=== PATIENT | female | born 1930 | race African-American/Black ===

== ENCOUNTER 2019-06-24 16:34 | Inpatient (IN) | payer MEDICARE, BC ==
[~2019-06-24] VITALS: Ht 160 cm; Wt 63.3 kg
[~2019-06-24 16:34] MED LIST: UNABLE TO OBTAIN
--- NOTE | 2019-06-24 16:41 | Emergency Room Report ---
History of Present Illness General Chief Complaint: Altered Level of Consciousness Source: Patient Present Illness HPI Patient Is an 88-year-old female brought in by EMS after unwitnessed fall and altered level of consciousness. Patient was noted to have adequate blood sugar greater than 100. She had been found on the floor with unknown last well time. She was noted to have some pressure sores to the right side of her body. She had some skin stuck to the floor apparently unknown date of injury. Patient had prior history of neuropathy and normally walks with a walker and is normally verbal. History is markedly limited by patient's mental status. Allergies: Coded Allergies: No Known Allergies (Unverified , 06/24/19) Patient History Past Medical History: see triage record Reviewed Nursing Documentation: PMH: Agreed; PSxH: Agreed Nursing Documentation-PMH Past Medical History: No History, Except For Review of Systems All Other Systems: limited - by poor historian Physical Exam Vital Signs Date Time Temp Pulse Resp B/P (MAP) Pulse Ox O2 Delivery O2 Flow Rate FiO2 06/24/19 16:29 85 20 150/54 (86) 92 Room Air Sp02 EP Interpretation: reviewed, normal General Appearance: lethargic - eyes open to pain, groans, Chronically Ill Head: atraumatic Eyes: bilateral eye PERRL ENT: dry mucus membranes Neck: supple, no bony tend Respiratory: lungs clear, normal breath sounds, no respiratory distress, no retraction, no wheezing Cardiovascular #1: regular rate, rhythm, no edema Gastrointestinal: non tender, soft Genitourinary: no CVA tenderness Musculoskeletal: back normal Neurologic: alert, motor weakness - generalized, other Psychiatric: normal inspection, mood/affect normal Skin: other - pressure sores to right side Medical Decision Making Diagnostic Impression: Primary Impression: Altered level of consciousness Additional Impressions: Fall Fracture of lumbar spine Rhabdomyolysis Decubitus skin ulcer KAREN (acute kidney injury) Metabolic acidosis ER Course Patient presented after a fall. Differential diagnosis include was not limited to hip fracture, intracranial hemorrhage, seizure, coagulopathy, dehydration, rhabdomyolysis among others. Because of complexity of patient's case laboratory tests and imaging studies were ordered. CT imaging of the head showed no acute process, marked atrophy. CT of abdomen and pelvis showed age indeterminate compression fractures. Patient was started on IV fluids and antibiotics. Patient will be admitted for further treatment and evaluation of altered mental status, likely contributed to by hypernatremia, dehydration and urinary tract infection. Physician for [facility] was contacted due to panel admission. Labs Test 06/24/19 16:37 06/24/19 18:00 Arterial Blood pH 7.193 (7.350-7.450) Arterial Blood Partial Pressure CO2 30.7 mmHg (35.0-45.0) Arterial Blood Partial Pressure O2 119.9 mmHg (75.0-100.0) Arterial Blood HCO3 11.5 mmol/L (22.0-26.0) Arterial Blood Oxygen Saturation 97.1 % (95-100) Arterial Blood Base Excess -15.3 (-2-2) Van Test Positive White Blood Count 19.7 K/UL (4.8-10.8) Red Blood Count 4.63 M/UL (4.20-5.40) Hemoglobin 12.2 G/DL (12.0-16.0) Hematocrit 39.5 % (37.0-47.0) Mean Corpuscular Volume 85 FL (80-99) Mean Corpuscular Hemoglobin 26.3 PG (27.0-31.0) Mean Corpuscular Hemoglobin Concent 30.9 G/DL (32.0-36.0) Red Cell Distribution Width 13.3 % (11.6-14.8) Platelet Count 265 K/UL (150-450) Mean Platelet Volume 9.1 FL (6.5-10.1) Neutrophils (%) (Auto) % (45.0-75.0) Lymphocytes (%) (Auto) % (20.0-45.0) Monocytes (%) (Auto) % (1.0-10.0) Eosinophils (%) (Auto) % (0.0-3.0) Basophils (%) (Auto) % (0.0-2.0) Prothrombin Time 12.1 SEC (9.30-11.50) Prothromb Time International Ratio 1.1 (0.9-1.1) Activated Partial Thromboplast Time 27 SEC (23-33) Urine Color Yellow Urine Appearance Clear Urine pH 5 (4.5-8.0) Urine Specific [place] 1.015 (1.005-1.035) Urine Protein 2+ (NEGATIVE) Urine Glucose (UA) Negative (NEGATIVE) Urine Ketones 1+ (NEGATIVE) Urine Blood 5+ (NEGATIVE) Urine Nitrite Negative (NEGATIVE) Urine Bilirubin Negative (NEGATIVE) Urine Urobilinogen Normal MG/DL (0.0-1.0) Urine Leukocyte Esterase Negative (NEGATIVE) Urine RBC 2-4 /HPF (0 - 2) Urine WBC 0-2 /HPF (0 - 2) Urine Squamous Epithelial Cells Occasional /LPF Urine Bacteria Few /HPF (NONE) EKG Diagnostic Results Rate: normal Rhythm: NSR ST Segments: no acute changes Last Vital Signs Date Time Temp Pulse Resp B/P (MAP) Pulse Ox O2 Delivery O2 Flow Rate FiO2 06/24/19 16:29 85 20 150/54 (86) 92 Room Air Status: unchanged Disposition: ADMITTED INPATIENT Condition: Serious Tenzin Coburn MD Jun 24, 2019 16:41
[2019-06-24 17:35] VITALS: BP 150/54
[2019-06-24 18:37] LABS: HEMATOCRIT 39.5 % (37.0-47.0); HEMOGLOBIN 12.2 G/DL (12.0-16.0); MEAN CORPUSCULAR VOLUME 85 FL (80-99); PLATELET COUNT 265 K/UL (150-450); RED BLOOD COUNT 4.63 M/UL (4.20-5.40); RED CELL DISTRIBUTION WIDTH 13.3 % (11.6-14.8); WHITE BLOOD COUNT 19.7 K/UL (4.8-10.8)
--- NOTE | 2019-06-24 18:38 | Diagnostic Imaging Report ---
INDICATION: Abdominal pain TECHNIQUE: Continuous helical transaxial imaging of the abdomen and pelvis was obtained from the lung bases to the pubic symphysis. No intravenous contrast was administered. Coronal 2-D reformats were also obtained. Automatic Exposure Control was utilized. Total Dose length Product (DLP): 240.[address] Dose Index Volume (CTDIvol): 4.7 mGy Comparison: none FINDINGS: Lungs: There is increased density at the lung bases likely atelectasis. Aorta is moderately calcified. There is a small hiatal hernia.. Liver: Grossly unremarkable. There is artifact limiting evaluation in addition to the fact that no IV or oral contrast was given for this examination. Gallbladder/biliary system: Grossly unremarkable. Spleen: Unremarkable Pancreas: In the area of the pancreatic tail there is a 1.6 cm nodular density which may be cystic. Further evaluation is recommended. Kidneys/Bladder: Vascular calcifications are quite extensive and extend to the hilum of both kidneys. Evaluation for punctate nonobstructive stones is limited in this setting but no definite stones seen. There is no hydronephrosis. Extensive breathing motion limiting evaluation.. Adrenal glands: Unremarkable Bowel: Patient's prior partial bowel resection in the right lower abdomen with anastomotic sutures noted. There is no evidence of a bowel obstruction or inflammatory changes. Appendix is not seen definitely but there are no signs of appendicitis. A few diverticula are noted within the colon. Aorta/IVC: There is a severe calcification of aorta and multiple branches of the aorta. Peritoneum: There is no free fluid. Bones: Bones are diffusely osteopenic. Multiple compression fracture deformities of several vertebra noted including lower thoracic vertebra and L1. There is narrowing of intervertebral discs and accompanying endplate osteophyte formation. Hypertrophied facet joints also demonstrated. Scoliosis of the lower thoracic spine convex to the right and left convex lumbar scoliosis noted. IMPRESSION: No acute findings appreciated. Study limited by the lack of intravenous oral contrast as well as extensive motion artifact. 1.6 cm probable cystic lesion in the pancreatic tail. This requires further evaluation with the contrast CT or MR. Status post previous partial bowel resection. 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 Degenerative changes as described above. [facility] has communicated the preliminary results to the Emergency Department. Their findings are largely concordant with this report. Note: Evaluation of solid organs is limited on non contrast imaging. The CT scanner at [facility] is accredited by the [employer] and the scans are performed using dose optimization techniques as appropriate to a performed exam including Automatic Exposure control.
[2019-06-24 18:39] LABS: APPEARANCE,URINE CLEAR; BILIRUBIN, URINE NEGATIVE (NEGATIVE); GLUCOSE, URINE (UA) NEGATIVE (NEGATIVE); KETONES,URINE 1+ (NEGATIVE); LEUKOCYTE ESTERASE ,URINE NEGATIVE (NEGATIVE); NITRITE,URINE NEGATIVE (NEGATIVE); PH,URINE 5 (4.5-8.0); PROTEIN,URINE 2+ (NEGATIVE); UROBILINOGEN,URINE NORMAL MG/DL (0.0-1.0)
[2019-06-24 18:42] LABS: COLOR,URINE YELLOW
[2019-06-24] MEDS ORDERED: cefTRIAXone 1 GM in NS 55 ML IVPB ONE (18:45)
[2019-06-24 18:46] LABS: INR 1.1 (0.9-1.1)
--- NOTE | 2019-06-24 18:48 | Diagnostic Imaging Report ---
Indication: Chest pain Technique: Contiguous 5 mm thick transaxial imaging of the head obtained in a Siemens Sensation [address] scanner. Soft tissue and bone windows generated. Automatic Exposure Control was utilized. Total Dose length Product (DLP): 1098.9mGycm CT Dose Index Volume (CTDIvol): 53.4 mGy Comparison: none Findings: There is moderate prominence of the ventricles, basal cisterns, and cerebral sulci consistent with atrophy. Moderate, nonspecific, white matter hypoattenuation is noted throughout the brain consistent with chronic small vessel disease. There is no midline shift, edema, acute hemorrhage, mass effect, or abnormal extra-axial fluid collections. Bones are osteopenic. Extensive arterial calcification noted within portions of the intracranial circulation. Impression: No acute intracranial bleed, mass effect or edema. Moderate atrophy of the brain. Evidence of chronic small vessel disease involving white matter tracts. The CT scanner at [facility] is accredited by the [employer] and the scans are performed using dose optimization techniques as appropriate to a performed exam including Automatic Exposure control.
[2019-06-24 19:17] LABS: ALANINE AMINOTRANSFERASE 195 U/L (12-78); ALBUMIN 3.1 G/DL (3.4-5.0); ALBUMIN/GLOBULIN RATIO 0.8 (1.0-2.7); ALKALINE PHOSPHATASE 82 U/L (46-116); ANION GAP 29 mmol/L (5-15); ASPARTATE AMINO TRANSFERASE 282 U/L (15-37); BILIRUBIN,TOTAL 0.5 MG/DL (0.2-1.0); BLOOD UREA NITROGEN 177 mg/dL (7-18); CALCIUM 9.8 MG/DL (8.5-10.1); CARBON DIOXIDE 12 MMOL/L (21-32); CHLORIDE 123 MMOL/L (98-107); CKMB 356.3 NG/ML (0.0-3.6); CREATINE KINASE 7552 U/L (26-308); PHOSPHORUS 10.1 MG/DL (2.5-4.9)
[2019-06-24 19:19] LABS: SODIUM 165 MMOL/L (136-145)
[2019-06-24 19:30] VITALS: BP 88/52
[2019-06-24] MEDS ORDERED: DiphenhydrAMINE 25mg Tab ORAL PRN (19:52)
[2019-06-24 20:30] VITALS: BP 108/56
[2019-06-24] MEDS ORDERED: Sodium Bicarbonate 50 ML in Sodium Chloride 1,000 ML IV SCH (21:30)
[2019-06-24] MEDS: Heparin 5000 units/ml inj SUBQ SCH (21:55)
[2019-06-25] VITALS: BP 115/59
[2019-06-25 04:00] VITALS: BP 118/54
[2019-06-25 05:32] LABS: HEMATOCRIT 33.9 % (37.0-47.0); HEMOGLOBIN 10.8 G/DL (12.0-16.0); MEAN CORPUSCULAR VOLUME 84 FL (80-99); PLATELET COUNT 236 K/UL (150-450); RED BLOOD COUNT 4.02 M/UL (4.20-5.40); RED CELL DISTRIBUTION WIDTH 12.3 % (11.6-14.8); WHITE BLOOD COUNT 17.6 K/UL (4.8-10.8)
[2019-06-25 06:11] LABS: ALANINE AMINOTRANSFERASE 162 U/L (12-78); ALBUMIN 2.5 G/DL (3.4-5.0); ALBUMIN/GLOBULIN RATIO 0.8 (1.0-2.7); ALKALINE PHOSPHATASE 76 U/L (46-116); ANION GAP 28 mmol/L (5-15); ASPARTATE AMINO TRANSFERASE 253 U/L (15-37); BILIRUBIN,TOTAL 0.4 MG/DL (0.2-1.0); BLOOD UREA NITROGEN 187 mg/dL (7-18); CALCIUM 8.8 MG/DL (8.5-10.1); CARBON DIOXIDE 13 MMOL/L (21-32); CHLORIDE 127 MMOL/L (98-107); CREATININE 5.2 MG/DL (0.55-1.30); POTASSIUM 4.4 MMOL/L (3.5-5.1)
[2019-06-25 06:18] LABS: SODIUM 167 MMOL/L (136-145)
[2019-06-25 08:00] VITALS: BP 125/69
[2019-06-25] MEDS: Heparin 5000 units/ml inj SUBQ SCH (08:24)
[2019-06-25] MEDS ORDERED: Sodium Bicarbonate 50 ML in D5W 1000ml 1,000 ML IV SCH (08:30)
--- NOTE | 2019-06-25 08:33 | Consultation ---
History of Present Illness General Chief Complaint: Altered Level of Consciousness Present Illness HPI This is a 88-year-old female brought in by EMS after unwitnessed fall and altered level of consciousness. Patient was noted to have adequate blood sugar greater than 100. She had been found on the floor with unknown last well time. She was noted to have some pressure sores to the right side of her body. She had some skin stuck to the floor apparently unknown date of injury. Patient had prior history of neuropathy and normally walks with a walker and is normally verbal. History is markedly limited by patient's mental status. Allergies: Coded Allergies: No Known Allergies (Unverified , 06/24/19) Medication History Scheduled Furosemide* (Lasix*), 20 MG ORAL TID, (Reported) Gabapentin* (Gabapentin*), 600 MG ORAL THREE TIMES A DAY, (Reported) Scheduled PRN Hydroxyzine HCl (Hydroxyzine HCl), 25 MG ORAL Q6HR PRN for Itching, (Reported) Oxycodone Hcl/Acetaminophen 10-325 Mg Tablet (Percocet 10-325 Mg Tablet*), 1 TAB ORAL Q6H PRN for For Pain, (Reported) Miscellaneous Medications [Unable To Obtain], (Reported) Patient History Healthcare decision maker Jami Palafox Resuscitation status Full Code Advanced Directive on File No Review of Systems ROS Narrative unable to obtain due to AMS Physical Exam General Appearance: lethargic, confused Lines, tubes and drains: peripheral HEENT: normocephalic, atraumatic Neck: non-tender Respiratory/Chest: lungs clear, normal breath sounds Cardiovascular/Chest: normal peripheral pulses, normal rate, regular rhythm, regularly irregular Abdomen: non tender, soft Last 24 Hour Vital Signs Date Time Temp Pulse Resp B/P (MAP) Pulse Ox O2 Delivery O2 Flow Rate FiO2 06/25/19 08:00 1.5 06/25/19 08:00 Nasal Cannula 1.5 06/25/19 04:00 Nasal Cannula 1.5 06/25/19 04:00 1.5 06/25/19 04:00 97.7 93 20 118/54 (75) 98 06/25/19 03:32 95 06/25/19 00:00 2.0 06/25/19 00:00 Nasal Cannula 1.5 06/25/19 00:00 95.5 87 16 115/59 (77) 98 3/2/20 23:33 80 06/24/19 22:39 Nasal Cannula 2.0 06/24/19 22:13 Nasal Cannula 2.0 06/24/19 22:11 71 06/24/19 21:00 99.1 99 20 108/56 92 Room Air 06/24/19 20:30 99.1 99 20 108/56 92 Room Air 06/24/19 19:30 99.1 116 20 88/52 92 Room Air 06/24/19 17:35 20 150/54 92 Room Air 06/24/19 17:35 85 20 Room Air 06/24/19 16:29 85 20 150/54 (86) 92 Room Air Intake and Output 06/24/19 06/25/19 19:00 07:00 Intake Total 800 ml Output Total 1000 ml 700 ml Balance -1000 ml 100 ml Intake IV Total 800 ml Output Urine Total 1000 ml 700 ml # Bowel Movements 2 Laboratory Tests Test 06/24/19 16:37 06/24/19 18:00 06/24/19 19:20 06/24/19 19:45 Arterial Blood pH 7.193 (7.350-7.450) Arterial Blood Partial Pressure CO2 30.7 mmHg (35.0-45.0) L Arterial Blood Partial Pressure O2 119.9 mmHg (75.0-100.0) H Arterial Blood HCO3 11.5 mmol/L (22.0-26.0) *L Arterial Blood Oxygen Saturation 97.1 % (95-100) Arterial Blood Base Excess -15.3 (-2-2) *L Van Test Positive White Blood Count 19.7 K/UL (4.8-10.8) H Red Blood Count 4.63 M/UL (4.20-5.40) Hemoglobin 12.2 G/DL (12.0-16.0) Hematocrit 39.5 % (37.0-47.0) Mean Corpuscular Volume 85 FL (80-99) Mean Corpuscular Hemoglobin 26.3 PG (27.0-31.0) L Mean Corpuscular Hemoglobin Concent 30.9 G/DL (32.0-36.0) L Red Cell Distribution Width 13.3 % (11.6-14.8) Platelet Count 265 K/UL (150-450) Mean Platelet Volume 9.1 FL (6.5-10.1) Neutrophils (%) (Auto) % (45.0-75.0) Lymphocytes (%) (Auto) % (20.0-45.0) Monocytes (%) (Auto) % (1.0-10.0) Eosinophils (%) (Auto) % (0.0-3.0) Basophils (%) (Auto) % (0.0-2.0) Differential Total Cells Counted 100 Neutrophils % (Manual) 90 % (45-75) H Lymphocytes % (Manual) 5 % (20-45) L Monocytes % (Manual) 4 % (1-10) Eosinophils % (Manual) 0 % (0-3) Basophils % (Manual) 0 % (0-2) Band Neutrophils 1 % (0-8) Nucleated Red Blood Cells 3 /100 WBC Platelet Estimate Adequate Platelet Morphology Normal Polychromasia 1+ Hypochromasia 1+ Prothrombin Time 12.1 SEC (9.30-11.50) H Prothromb Time International Ratio 1.1 (0.9-1.1) Activated Partial Thromboplast Time 27 SEC (23-33) Urine Color Yellow Urine Appearance Clear Urine pH 5 (4.5-8.0) Urine Specific [place] 1.015 (1.005-1.035) Urine Protein 2+ (NEGATIVE) H Urine Glucose (UA) Negative (NEGATIVE) Urine Ketones 1+ (NEGATIVE) H Urine Blood 5+ (NEGATIVE) H Urine Nitrite Negative (NEGATIVE) Urine Bilirubin Negative (NEGATIVE) Urine Urobilinogen Normal MG/DL (0.0-1.0) Urine Leukocyte Esterase Negative (NEGATIVE) Urine RBC 2-4 /HPF (0 - 2) H Urine WBC 0-2 /HPF (0 - 2) Urine Squamous Epithelial Cells Occasional /LPF Urine Bacteria Few /HPF (NONE) Sodium Level 165 MMOL/L (136-145) *H Potassium Level 5.0 MMOL/L (3.5-5.1) Chloride Level 123 MMOL/L (98-107) H Carbon Dioxide Level 12 MMOL/L (21-32) L Anion Gap 29 mmol/L (5-15) H Blood Urea Nitrogen 177 mg/dL (7-18) H Creatinine 5.0 MG/DL (0.55-1.30) H Estimat Glomerular Filtration Rate 9.9 mL/min (>60) Glucose Level 127 MG/DL (74-106) H Lactic Acid Level 2.70 mmol/L (0.4-2.0) H 1.60 mmol/L (0.66-2.22) Calcium Level 9.8 MG/DL (8.5-10.1) Phosphorus Level 10.1 MG/DL (2.5-4.9) H Magnesium Level 3.9 MG/DL (1.8-2.4) H Total Bilirubin 0.5 MG/DL (0.2-1.0) Aspartate Amino Transf (AST/SGOT) 282 U/L (15-37) H Alanine Aminotransferase (ALT/SGPT) 195 U/L (12-78) H Alkaline Phosphatase 82 U/L (46-116) Total Creatine Kinase 7552 U/L (26-308) H Creatine Kinase MB 356.3 NG/ML (0.0-3.6) H Creatine Kinase MB Relative Index 4.7 Troponin I 0.126 ng/mL (0.000-0.056) 0.136 ng/mL (0.000-0.056) Pro-B-Type Natriuretic Peptide 664 pg/mL (0-125) H Total Protein 6.8 G/DL (6.4-8.2) Albumin 3.1 G/DL (3.4-5.0) L Globulin 3.7 g/dL Albumin/Globulin Ratio 0.8 (1.0-2.7) L Lipase 516 U/L (73-393) H Test 06/25/19 03:30 White Blood Count 17.6 K/UL (4.8-10.8) H Red Blood Count 4.02 M/UL (4.20-5.40) L Hemoglobin 10.8 G/DL (12.0-16.0) L Hematocrit 33.9 % (37.0-47.0) L Mean Corpuscular Volume 84 FL (80-99) Mean Corpuscular Hemoglobin 26.9 PG (27.0-31.0) L Mean Corpuscular Hemoglobin Concent 31.9 G/DL (32.0-36.0) L Red Cell Distribution Width 12.3 % (11.6-14.8) Platelet Count 236 K/UL (150-450) Mean Platelet Volume 7.1 FL (6.5-10.1) Neutrophils (%) (Auto) % (45.0-75.0) Lymphocytes (%) (Auto) % (20.0-45.0) Monocytes (%) (Auto) % (1.0-10.0) Eosinophils (%) (Auto) % (0.0-3.0) Basophils (%) (Auto) % (0.0-2.0) Neutrophils % (Manual) Pending Lymphocytes % (Manual) Pending Platelet Estimate Pending Platelet Morphology Pending Sodium Level 167 MMOL/L (136-145) *H Potassium Level 4.4 MMOL/L (3.5-5.1) Chloride Level 127 MMOL/L (98-107) H Carbon Dioxide Level 13 MMOL/L (21-32) L Anion Gap 28 mmol/L (5-15) H Blood Urea Nitrogen 187 mg/dL (7-18) H Creatinine 5.2 MG/DL (0.55-1.30) H Estimat Glomerular Filtration Rate 9.5 mL/min (>60) Glucose Level 90 MG/DL (74-106) Lactic Acid Level 2.60 mmol/L (0.4-2.0) H Calcium Level 8.8 MG/DL (8.5-10.1) Total Bilirubin 0.4 MG/DL (0.2-1.0) Aspartate Amino Transf (AST/SGOT) 253 U/L (15-37) H Alanine Aminotransferase (ALT/SGPT) 162 U/L (12-78) H Alkaline Phosphatase 76 U/L (46-116) Total Protein 5.8 G/DL (6.4-8.2) L Albumin 2.5 G/DL (3.4-5.0) L Globulin 3.3 g/dL Albumin/Globulin Ratio 0.8 (1.0-2.7) L Height (Feet): 5 Height (Inches): 4.00 Weight (Pounds): 114 Medications Current Medications Medications (Trade) Dose Ordered Sig/Joan Route PRN Reason Start Time Stop Time Status Last Admin Dose Admin Acetaminophen (Tylenol) 650 mg Q4H PRN ORAL Mild Pain (Pain Scale 1-3) 06/24/19 19:52 07/24/19 19:51 Dextrose (Dextrose 50%) 25 ml Q30M PRN IV Hypoglycemia 06/24/19 19:52 07/24/19 19:51 Dextrose (Dextrose 50%) 50 ml Q30M PRN IV Hypoglycemia 06/24/19 19:52 07/24/19 19:51 Diphenhydramine HCl (Benadryl) 25 mg Q6H PRN ORAL Itching/Pruritis 06/24/19 19:52 07/24/19 19:51 Heparin Sodium (Porcine) (Heparin 5000 units/ml) 5,000 units EVERY 12 HOURS SUBQ 06/24/19 21:00 07/24/19 20:59 06/25/19 08:24 Ondansetron HCl (Zofran) 4 mg Q6H PRN IVP Nausea & Vomiting 06/24/19 19:52 07/24/19 19:51 Sodium Bicarbonate 50 ml/ Dextrose 1,050 ml @ 100 mls/hr [id number] IV 06/25/19 08:30 07/25/19 08:29 06/25/19 08:23 Assessment/Plan Diagnosis [place] [facility]: #acute renal failure on possible CKD- due to rhabdo- UA with + RBC #Uremia #lactic acidosis #Hypernatremia #AMS #elevated liver enzyme - given pesistent acidodis and elevated BUN despite hydration overnight will proceed with HD today - plan for slow IHD today - Monitor sodium - monitor acidosis - monitor liver enzymes - Rory Oconnor M.D. Jun 25, 2019 08:33
[2019-06-25] MEDS ORDERED: FUROSEMIDE20 M1 ORAL (10:56)
[2019-06-25] MEDS ORDERED: PERCOCET 10-321 EACH ORAL (10:56)
[2019-06-25] MEDS ORDERED: GABAPENTIN600 MG ORAL (10:56)
[2019-06-25] MEDS ORDERED: ATARAX25 MG ORAL (10:56)
[2019-06-25 12:00] VITALS: BP 120/53
[2019-06-25 12:31] LABS: ANION GAP 23 mmol/L (5-15); BLOOD UREA NITROGEN 179 mg/dL (7-18); CALCIUM 7.9 MG/DL (8.5-10.1); CARBON DIOXIDE 17 MMOL/L (21-32); CHLORIDE 126 MMOL/L (98-107); CREATININE 5.9 MG/DL (0.55-1.30)
--- NOTE | 2019-06-25 12:31 | Diagnostic Imaging Report ---
Indication: Dyspnea Comparison: None A single view chest radiograph was obtained. Findings: No definite infiltrate or pulmonary vascular congestion identified. The heart is enlarged. The aorta is mildly enlarged consistent with atherosclerotic vascular disease. Other vessels likely calcified including the subclavian and innominate arteries. The bones are osteopenic. There are thoracic vertebral enthesophytes at multiple levels. Impression: No acute disease
[2019-06-25 12:34] LABS: SODIUM 165 MMOL/L (136-145)
--- NOTE | 2019-06-25 13:42 | History and Physical ---
History of Present Illness General Date patient seen: Jun 25, 2019 Time patient seen: 08:00 Reason for Hospitalization: rhabdomyolosis, KAREN Present Illness HPI This is a 88-year-old female brought in by EMS after unwitnessed fall and altered level of consciousness. Was found down on the floor with her pressure sore stuck to the floor, unknown duration of being down. Hx limited by her mental status. Allergies: Coded Allergies: No Known Allergies (Unverified , 06/24/19) Medication History Scheduled Furosemide* (Lasix*), 20 MG ORAL TID, (Reported) Gabapentin* (Gabapentin*), 600 MG ORAL THREE TIMES A DAY, (Reported) Scheduled PRN Hydroxyzine HCl (Hydroxyzine HCl), 25 MG ORAL Q6HR PRN for Itching, (Reported) Oxycodone Hcl/Acetaminophen 10-325 Mg Tablet (Percocet 10-325 Mg Tablet*), 1 TAB ORAL Q6H PRN for For Pain, (Reported) Miscellaneous Medications [Unable To Obtain], (Reported) Patient History Limited by: age, medical condition History Provided By: Medical Record, EMS Healthcare decision maker Jami Palafox Resuscitation status Full Code Advanced Directive on File No Review of Systems Constitutional: Denies: no symptoms, see HPI, chills, sweats, fever, malaise, weakness, other Eye: Denies: no symptoms, see HPI, eye pain, blurred vision, tearing, double vision, nose pain, nose congestion, acuity changes, discharge, other ROS Narrative ROs unable to be obtained due to her mental status Physical Exam General Appearance: lethargic, confused HEENT: normocephalic, atraumatic Neck: supple Respiratory/Chest: lungs clear, normal breath sounds Cardiovascular/Chest: normal rate, regular rhythm Abdomen: non tender, soft Neurologic: disoriented, unresponsiveness Last 24 Hour Vital Signs Date Time Temp Pulse Resp B/P (MAP) Pulse Ox O2 Delivery O2 Flow Rate FiO2 06/25/19 12:00 92 06/25/19 12:00 1.5 06/25/19 12:00 Nasal Cannula 1.5 06/25/19 12:00 98.6 94 21 120/53 (75) 98 06/25/19 08:00 100 06/25/19 08:00 1.5 3/3/20 08:00 Nasal Cannula 1.5 06/25/19 08:00 98.2 105 18 125/69 (87) 98 06/25/19 04:00 Nasal Cannula 1.5 06/25/19 04:00 1.5 06/25/19 04:00 97.7 93 20 118/54 (75) 98 06/25/19 03:32 95 06/25/19 00:00 2.0 06/25/19 00:00 Nasal Cannula 1.5 06/25/19 00:00 95.5 87 16 115/59 (77) 98 06/24/19 23:33 80 06/24/19 22:39 Nasal Cannula 2.0 06/24/19 22:13 Nasal Cannula 2.0 06/24/19 22:11 71 06/24/19 21:00 99.1 99 20 108/56 92 Room Air 06/24/19 20:30 99.1 99 20 108/56 92 Room Air 06/24/19 19:30 99.1 116 20 88/52 92 Room Air 06/24/19 17:35 20 150/54 92 Room Air 06/24/19 17:35 85 20 Room Air 06/24/19 16:29 85 20 150/54 (86) 92 Room Air Intake and Output 06/24/19 06/25/19 19:00 07:00 Intake Total 800 ml Output Total 1000 ml 700 ml Balance -1000 ml 100 ml Intake IV Total 800 ml Output Urine Total 1000 ml 700 ml # Bowel Movements 2 Laboratory Tests Test 06/24/19 16:37 06/24/19 18:00 06/24/19 19:20 06/24/19 19:45 Arterial Blood pH 7.193 (7.350-7.450) Arterial Blood Partial Pressure CO2 30.7 mmHg (35.0-45.0) L Arterial Blood Partial Pressure O2 119.9 mmHg (75.0-100.0) H Arterial Blood HCO3 11.5 mmol/L (22.0-26.0) *L Arterial Blood Oxygen Saturation 97.1 % (95-100) Arterial Blood Base Excess -15.3 (-2-2) *L Van Test Positive White Blood Count 19.7 K/UL (4.8-10.8) H Red Blood Count 4.63 M/UL (4.20-5.40) Hemoglobin 12.2 G/DL (12.0-16.0) Hematocrit 39.5 % (37.0-47.0) Mean Corpuscular Volume 85 FL (80-99) Mean Corpuscular Hemoglobin 26.3 PG (27.0-31.0) L Mean Corpuscular Hemoglobin Concent 30.9 G/DL (32.0-36.0) L Red Cell Distribution Width 13.3 % (11.6-14.8) Platelet Count 265 K/UL (150-450) Mean Platelet Volume 9.1 FL (6.5-10.1) Neutrophils (%) (Auto) % (45.0-75.0) Lymphocytes (%) (Auto) % (20.0-45.0) Monocytes (%) (Auto) % (1.0-10.0) Eosinophils (%) (Auto) % (0.0-3.0) Basophils (%) (Auto) % (0.0-2.0) Differential Total Cells Counted 100 Neutrophils % (Manual) 90 % (45-75) H Lymphocytes % (Manual) 5 % (20-45) L Monocytes % (Manual) 4 % (1-10) Eosinophils % (Manual) 0 % (0-3) Basophils % (Manual) 0 % (0-2) Band Neutrophils 1 % (0-8) Nucleated Red Blood Cells 3 /100 WBC Platelet Estimate Adequate Platelet Morphology Normal Polychromasia 1+ Hypochromasia 1+ Prothrombin Time 12.1 SEC (9.30-11.50) H Prothromb Time International Ratio 1.1 (0.9-1.1) Activated Partial Thromboplast Time 27 SEC (23-33) Urine Color Yellow Urine Appearance Clear Urine pH 5 (4.5-8.0) Urine Specific [place] 1.015 (1.005-1.035) Urine Protein 2+ (NEGATIVE) H Urine Glucose (UA) Negative (NEGATIVE) Urine Ketones 1+ (NEGATIVE) H Urine Blood 5+ (NEGATIVE) H Urine Nitrite Negative (NEGATIVE) Urine Bilirubin Negative (NEGATIVE) Urine Urobilinogen Normal MG/DL (0.0-1.0) Urine Leukocyte Esterase Negative (NEGATIVE) Urine RBC 2-4 /HPF (0 - 2) H Urine WBC 0-2 /HPF (0 - 2) Urine Squamous Epithelial Cells Occasional /LPF Urine Bacteria Few /HPF (NONE) Sodium Level 165 MMOL/L (136-145) *H Potassium Level 5.0 MMOL/L (3.5-5.1) Chloride Level 123 MMOL/L (98-107) H Carbon Dioxide Level 12 MMOL/L (21-32) L Anion Gap 29 mmol/L (5-15) H Blood Urea Nitrogen 177 mg/dL (7-18) H Creatinine 5.0 MG/DL (0.55-1.30) H Estimat Glomerular Filtration Rate 9.9 mL/min (>60) Glucose Level 127 MG/DL (74-106) H Lactic Acid Level 2.70 mmol/L (0.4-2.0) H 1.60 mmol/L (0.66-2.22) Calcium Level 9.8 MG/DL (8.5-10.1) Phosphorus Level 10.1 MG/DL (2.5-4.9) H Magnesium Level 3.9 MG/DL (1.8-2.4) H Total Bilirubin 0.5 MG/DL (0.2-1.0) Aspartate Amino Transf (AST/SGOT) 282 U/L (15-37) H Alanine Aminotransferase (ALT/SGPT) 195 U/L (12-78) H Alkaline Phosphatase 82 U/L (46-116) Total Creatine Kinase 7552 U/L (26-308) H Creatine Kinase MB 356.3 NG/ML (0.0-3.6) H Creatine Kinase MB Relative Index 4.7 Troponin I 0.126 ng/mL (0.000-0.056) 0.136 ng/mL (0.000-0.056) Pro-B-Type Natriuretic Peptide 664 pg/mL (0-125) H Total Protein 6.8 G/DL (6.4-8.2) Albumin 3.1 G/DL (3.4-5.0) L Globulin 3.7 g/dL Albumin/Globulin Ratio 0.8 (1.0-2.7) L Lipase 516 U/L (73-393) H Test 06/25/19 03:30 06/25/19 09:15 06/25/19 11:55 White Blood Count 17.6 K/UL (4.8-10.8) H Red Blood Count 4.02 M/UL (4.20-5.40) L Hemoglobin 10.8 G/DL (12.0-16.0) L Hematocrit 33.9 % (37.0-47.0) L Mean Corpuscular Volume 84 FL (80-99) Mean Corpuscular Hemoglobin 26.9 PG (27.0-31.0) L Mean Corpuscular Hemoglobin Concent 31.9 G/DL (32.0-36.0) L Red Cell Distribution Width 12.3 % (11.6-14.8) Platelet Count 236 K/UL (150-450) Mean Platelet Volume 7.1 FL (6.5-10.1) Neutrophils (%) (Auto) % (45.0-75.0) Lymphocytes (%) (Auto) % (20.0-45.0) Monocytes (%) (Auto) % (1.0-10.0) Eosinophils (%) (Auto) % (0.0-3.0) Basophils (%) (Auto) % (0.0-2.0) Differential Total Cells Counted 100 Neutrophils % (Manual) 87 % (45-75) H Lymphocytes % (Manual) 5 % (20-45) L Monocytes % (Manual) 5 % (1-10) Eosinophils % (Manual) 2 % (0-3) Basophils % (Manual) 0 % (0-2) Band Neutrophils 1 % (0-8) Nucleated Red Blood Cells 3 /100 WBC Platelet Estimate Adequate Platelet Morphology Normal Polychromasia 1+ Sodium Level 167 MMOL/L (136-145) *H 165 MMOL/L (136-145) *H Potassium Level 4.4 MMOL/L (3.5-5.1) 5.0 MMOL/L (3.5-5.1) Chloride Level 127 MMOL/L (98-107) H 126 MMOL/L (98-107) H Carbon Dioxide Level 13 MMOL/L (21-32) L 17 MMOL/L (21-32) L Anion Gap 28 mmol/L (5-15) H 23 mmol/L (5-15) H Blood Urea Nitrogen 187 mg/dL (7-18) H 179 mg/dL (7-18) H Creatinine 5.2 MG/DL (0.55-1.30) H 5.9 MG/DL (0.55-1.30) H Estimat Glomerular Filtration Rate 9.5 mL/min (>60) 8.2 mL/min (>60) Glucose Level 90 MG/DL (74-106) 194 MG/DL (74-106) #H Lactic Acid Level 2.60 mmol/L (0.4-2.0) H 1.30 mmol/L (0.66-2.22) Calcium Level 8.8 MG/DL (8.5-10.1) 7.9 MG/DL (8.5-10.1) L Total Bilirubin 0.4 MG/DL (0.2-1.0) Aspartate Amino Transf (AST/SGOT) 253 U/L (15-37) H Alanine Aminotransferase (ALT/SGPT) 162 U/L (12-78) H Alkaline Phosphatase 76 U/L (46-116) Total Protein 5.8 G/DL (6.4-8.2) L Albumin 2.5 G/DL (3.4-5.0) L Globulin 3.3 g/dL Albumin/Globulin Ratio 0.8 (1.0-2.7) L Height (Feet): 5 Height (Inches): 4.00 Weight (Pounds): 114 Medications Current Medications Medications (Trade) Dose Ordered Sig/Joan Route PRN Reason Start Time Stop Time Status Last Admin Dose Admin Acetaminophen (Tylenol) 650 mg Q4H PRN ORAL Mild Pain (Pain Scale 1-3) 06/24/19 19:52 07/24/19 19:51 Dextrose 1,000 ml @ 200 mls/hr Q5H IV 06/25/19 09:00 06/25/19 19:00 06/25/19 10:06 Dextrose (Dextrose 50%) 25 ml Q30M PRN IV Hypoglycemia 06/24/19 19:52 07/24/19 19:51 Dextrose (Dextrose 50%) 50 ml Q30M PRN IV Hypoglycemia 06/24/19 19:52 07/24/19 19:51 Diphenhydramine HCl (Benadryl) 25 mg Q6H PRN ORAL Itching/Pruritis 06/24/19 19:52 07/24/19 19:51 Heparin Sodium (Porcine) (Heparin 5000 units/ml) 5,000 units EVERY 12 HOURS SUBQ 06/24/19 21:00 07/24/19 20:59 06/25/19 08:24 Ondansetron HCl (Zofran) 4 mg Q6H PRN IVP Nausea & Vomiting 06/24/19 19:52 07/24/19 19:51 Assessment/Plan Problem List: (1) Fall ICD Codes: W19.XXXA - Unspecified fall, initial encounter SNOMED: 0269988, 659092139 (2) Altered level of consciousness ICD Codes: R40.4 - Transient alteration of awareness SNOMED: 2797027 (3) Fracture of lumbar spine ICD Codes: S32.009A - Unspecified fracture of unspecified lumbar vertebra, initial encounter for closed fracture SNOMED: 414991779 (4) Rhabdomyolysis ICD Codes: M62.82 - Rhabdomyolysis SNOMED: 879858356 (5) KAREN (acute kidney injury) ICD Codes: N17.9 - Acute kidney failure, unspecified SNOMED: 4253477, 13253330 Status: deteriorating Diagnosis Elora I: #Rhabdomyolosis #KAREN #Uremic encephaloapathy #Anion gap metabolic acidosis #Lactic acidosis -resolved #Pressure wounds. -Nephrology consulted. -Plan for HD later today. -General surgery consulted for wound care. -D5 with Na bicarb for now. -Social work for home safety eval. #Leukocytosis Likely reactive vs. infectious. no fevers. UA neg. -monitor CBC for now. -liow threshold to start abx #Transaminitis ?from dehydration, abd exam benign. -continue to trend LFT's. #Type 2 NSTEMI likely demand in setting of renal failure. EKG wnl. -no need to trend. 38 extra minutes spent on chart review of pertinent information (labs, meds, imaging, MD notes, etc.) Time of note doesn't reflect time of encounter. René Rollins M.D. Jun 25, 2019 13:42
--- NOTE | 2019-06-25 15:55 | Consultation ---
History of Present Illness General Date patient seen: Jun 25, 2019 Chief Complaint: Altered Level of Consciousness Present Illness HPI 88-year-old female brought in by EMS after unwitnessed fall and altered level of consciousness. Patient was noted to have adequate blood sugar greater than 100. She had been found on the floor with unknown last well time. She was noted to have some pressure sores to the right side of her body. She had some skin stuck to the floor apparently unknown date of injury. Patient had prior history of neuropathy and normally walks with a walker and is normally verbal. History is markedly limited by patient's mental status.Patient unable to provide history. Family at bedside providing majority of the history. States she is usually very awake alert walking but with some difficulty. No nausea fever chills. Otherwise well. They check on her often and she is fairly independent but unfortunate events recently bring her in now. Allergies: Coded Allergies: No Known Allergies (Unverified , 06/24/19) Medication History Scheduled Furosemide* (Lasix*), 20 MG ORAL TID, (Reported) Gabapentin* (Gabapentin*), 600 MG ORAL THREE TIMES A DAY, (Reported) Scheduled PRN Hydroxyzine HCl (Hydroxyzine HCl), 25 MG ORAL Q6HR PRN for Itching, (Reported) Oxycodone Hcl/Acetaminophen 10-325 Mg Tablet (Percocet 10-325 Mg Tablet*), 1 TAB ORAL Q6H PRN for For Pain, (Reported) Miscellaneous Medications [Unable To Obtain], (Reported) Patient History Limited by: medical condition History Provided By: Family Member, Medical Record, PMD Healthcare decision maker Jami Palafox Resuscitation status Full Code Advanced Directive on File No Past Medical/Surgical History Past Medical/Surgical History: (1) Fall (2) Altered level of consciousness (3) Fracture of lumbar spine (4) Rhabdomyolysis (5) KAREN (acute kidney injury) Review of Systems All Other Systems: negative except mentioned in HPI ROS Narrative cannot obtain given medical condition Physical Exam General Appearance: no apparent distress, mild distress Lines, tubes and drains: peripheral HEENT: normocephalic, atraumatic Neck: supple, normal inspection Cardiovascular/Chest: normal rate, no gallop/murmur Abdomen: soft, no organomegaly, no mass Extremities: non-tender, normal inspection Skin Exam: warm/dry Last 24 Hour Vital Signs Date Time Temp Pulse Resp B/P (MAP) Pulse Ox O2 Delivery O2 Flow Rate FiO2 06/25/19 12:00 92 06/25/19 12:00 1.5 06/25/19 12:00 Nasal Cannula 1.5 06/25/19 12:00 98.6 94 21 120/53 (75) 98 06/25/19 08:00 100 06/25/19 08:00 1.5 06/25/19 08:00 Nasal Cannula 1.5 06/25/19 08:00 98.2 105 18 125/69 (87) 98 06/25/19 04:00 Nasal Cannula 1.5 06/25/19 04:00 1.5 06/25/19 04:00 97.7 93 20 118/54 (75) 98 06/25/19 03:32 95 06/25/19 00:00 2.0 06/25/19 00:00 Nasal Cannula 1.5 06/25/19 00:00 95.5 87 16 115/59 (77) 98 06/24/19 23:33 80 06/24/19 22:39 Nasal Cannula 2.0 06/24/19 22:13 Nasal Cannula 2.0 06/24/19 22:11 71 06/24/19 21:00 99.1 99 20 108/56 92 Room Air 06/24/19 20:30 99.1 99 20 108/56 92 Room Air 06/24/19 19:30 99.1 116 20 88/52 92 Room Air 06/24/19 17:35 20 150/54 92 Room Air 06/24/19 17:35 85 20 Room Air 06/24/19 16:29 85 20 150/54 (86) 92 Room Air Intake and Output 06/24/19 06/25/19 19:00 07:00 Intake Total 800 ml Output Total 1000 ml 700 ml Balance -1000 ml 100 ml Intake IV Total 800 ml Output Urine Total 1000 ml 700 ml # Bowel Movements 2 Laboratory Tests Test 06/24/19 16:37 06/24/19 18:00 06/24/19 19:20 06/24/19 19:45 Arterial Blood pH 7.193 (7.350-7.450) Arterial Blood Partial Pressure CO2 30.7 mmHg (35.0-45.0) L Arterial Blood Partial Pressure O2 119.9 mmHg (75.0-100.0) H Arterial Blood HCO3 11.5 mmol/L (22.0-26.0) *L Arterial Blood Oxygen Saturation 97.1 % (95-100) Arterial Blood Base Excess -15.3 (-2-2) *L Van Test Positive White Blood Count 19.7 K/UL (4.8-10.8) H Red Blood Count 4.63 M/UL (4.20-5.40) Hemoglobin 12.2 G/DL (12.0-16.0) Hematocrit 39.5 % (37.0-47.0) Mean Corpuscular Volume 85 FL (80-99) Mean Corpuscular Hemoglobin 26.3 PG (27.0-31.0) L Mean Corpuscular Hemoglobin Concent 30.9 G/DL (32.0-36.0) L Red Cell Distribution Width 13.3 % (11.6-14.8) Platelet Count 265 K/UL (150-450) Mean Platelet Volume 9.1 FL (6.5-10.1) Neutrophils (%) (Auto) % (45.0-75.0) Lymphocytes (%) (Auto) % (20.0-45.0) Monocytes (%) (Auto) % (1.0-10.0) Eosinophils (%) (Auto) % (0.0-3.0) Basophils (%) (Auto) % (0.0-2.0) Differential Total Cells Counted 100 Neutrophils % (Manual) 90 % (45-75) H Lymphocytes % (Manual) 5 % (20-45) L Monocytes % (Manual) 4 % (1-10) Eosinophils % (Manual) 0 % (0-3) Basophils % (Manual) 0 % (0-2) Band Neutrophils 1 % (0-8) Nucleated Red Blood Cells 3 /100 WBC Platelet Estimate Adequate Platelet Morphology Normal Polychromasia 1+ Hypochromasia 1+ Prothrombin Time 12.1 SEC (9.30-11.50) H Prothromb Time International Ratio 1.1 (0.9-1.1) Activated Partial Thromboplast Time 27 SEC (23-33) Urine Color Yellow Urine Appearance Clear Urine pH 5 (4.5-8.0) Urine Specific Zaleski 1.015 (1.005-1.035) Urine Protein 2+ (NEGATIVE) H Urine Glucose (UA) Negative (NEGATIVE) Urine Ketones 1+ (NEGATIVE) H Urine Blood 5+ (NEGATIVE) H Urine Nitrite Negative (NEGATIVE) Urine Bilirubin Negative (NEGATIVE) Urine Urobilinogen Normal MG/DL (0.0-1.0) Urine Leukocyte Esterase Negative (NEGATIVE) Urine RBC 2-4 /HPF (0 - 2) H Urine WBC 0-2 /HPF (0 - 2) Urine Squamous Epithelial Cells Occasional /LPF Urine Bacteria Few /HPF (NONE) Sodium Level 165 MMOL/L (136-145) *H Potassium Level 5.0 MMOL/L (3.5-5.1) Chloride Level 123 MMOL/L (98-107) H Carbon Dioxide Level 12 MMOL/L (21-32) L Anion Gap 29 mmol/L (5-15) H Blood Urea Nitrogen 177 mg/dL (7-18) H Creatinine 5.0 MG/DL (0.55-1.30) H Estimat Glomerular Filtration Rate 9.9 mL/min (>60) Glucose Level 127 MG/DL (74-106) H Lactic Acid Level 2.70 mmol/L (0.4-2.0) H 1.60 mmol/L (0.66-2.22) Calcium Level 9.8 MG/DL (8.5-10.1) Phosphorus Level 10.1 MG/DL (2.5-4.9) H Magnesium Level 3.9 MG/DL (1.8-2.4) H Total Bilirubin 0.5 MG/DL (0.2-1.0) Aspartate Amino Transf (AST/SGOT) 282 U/L (15-37) H Alanine Aminotransferase (ALT/SGPT) 195 U/L (12-78) H Alkaline Phosphatase 82 U/L (46-116) Total Creatine Kinase 7552 U/L (26-308) H Creatine Kinase MB 356.3 NG/ML (0.0-3.6) H Creatine Kinase MB Relative Index 4.7 Troponin I 0.126 ng/mL (0.000-0.056) 0.136 ng/mL (0.000-0.056) Pro-B-Type Natriuretic Peptide 664 pg/mL (0-125) H Total Protein 6.8 G/DL (6.4-8.2) Albumin 3.1 G/DL (3.4-5.0) L Globulin 3.7 g/dL Albumin/Globulin Ratio 0.8 (1.0-2.7) L Lipase 516 U/L (73-393) H Test 06/25/19 03:30 06/25/19 09:15 06/25/19 11:55 White Blood Count 17.6 K/UL (4.8-10.8) H Red Blood Count 4.02 M/UL (4.20-5.40) L Hemoglobin 10.8 G/DL (12.0-16.0) L Hematocrit 33.9 % (37.0-47.0) L Mean Corpuscular Volume 84 FL (80-99) Mean Corpuscular Hemoglobin 26.9 PG (27.0-31.0) L Mean Corpuscular Hemoglobin Concent 31.9 G/DL (32.0-36.0) L Red Cell Distribution Width 12.3 % (11.6-14.8) Platelet Count 236 K/UL (150-450) Mean Platelet Volume 7.1 FL (6.5-10.1) Neutrophils (%) (Auto) % (45.0-75.0) Lymphocytes (%) (Auto) % (20.0-45.0) Monocytes (%) (Auto) % (1.0-10.0) Eosinophils (%) (Auto) % (0.0-3.0) Basophils (%) (Auto) % (0.0-2.0) Differential Total Cells Counted 100 Neutrophils % (Manual) 87 % (45-75) H Lymphocytes % (Manual) 5 % (20-45) L Monocytes % (Manual) 5 % (1-10) Eosinophils % (Manual) 2 % (0-3) Basophils % (Manual) 0 % (0-2) Band Neutrophils 1 % (0-8) Nucleated Red Blood Cells 3 /100 WBC Platelet Estimate Adequate Platelet Morphology Normal Polychromasia 1+ Sodium Level 167 MMOL/L (136-145) *H 165 MMOL/L (136-145) *H Potassium Level 4.4 MMOL/L (3.5-5.1) 5.0 MMOL/L (3.5-5.1) Chloride Level 127 MMOL/L (98-107) H 126 MMOL/L (98-107) H Carbon Dioxide Level 13 MMOL/L (21-32) L 17 MMOL/L (21-32) L Anion Gap 28 mmol/L (5-15) H 23 mmol/L (5-15) H Blood Urea Nitrogen 187 mg/dL (7-18) H 179 mg/dL (7-18) H Creatinine 5.2 MG/DL (0.55-1.30) H 5.9 MG/DL (0.55-1.30) H Estimat Glomerular Filtration Rate 9.5 mL/min (>60) 8.2 mL/min (>60) Glucose Level 90 MG/DL (74-106) 194 MG/DL (74-106) #H Lactic Acid Level 2.60 mmol/L (0.4-2.0) H 1.30 mmol/L (0.66-2.22) Calcium Level 8.8 MG/DL (8.5-10.1) 7.9 MG/DL (8.5-10.1) L Total Bilirubin 0.4 MG/DL (0.2-1.0) Aspartate Amino Transf (AST/SGOT) 253 U/L (15-37) H Alanine Aminotransferase (ALT/SGPT) 162 U/L (12-78) H Alkaline Phosphatase 76 U/L (46-116) Total Protein 5.8 G/DL (6.4-8.2) L Albumin 2.5 G/DL (3.4-5.0) L Globulin 3.3 g/dL Albumin/Globulin Ratio 0.8 (1.0-2.7) L Height (Feet): 5 Height (Inches): 4.00 Weight (Pounds): 114 Medications Current Medications Medications (Trade) Dose Ordered Sig/Joan Route PRN Reason Start Time Stop Time Status Last Admin Dose Admin Acetaminophen (Tylenol) 650 mg Q4H PRN ORAL Mild Pain (Pain Scale 1-3) 06/24/19 19:52 07/24/19 19:51 Albumin Human 100 ml @ 100 mls/hr ONCE IV 06/25/19 15:00 06/25/19 16:30 Albumin Human 100 ml @ 100 mls/hr ONCE IV 06/25/19 16:00 06/25/19 17:00 Dextrose 1,000 ml @ 200 mls/hr Q5H IV 06/25/19 09:00 06/25/19 19:00 06/25/19 15:36 Dextrose (Dextrose 50%) 25 ml Q30M PRN IV Hypoglycemia 06/24/19 19:52 07/24/19 19:51 Dextrose (Dextrose 50%) 50 ml Q30M PRN IV Hypoglycemia 06/24/19 19:52 07/24/19 19:51 Diphenhydramine HCl (Benadryl) 25 mg Q6H PRN ORAL Itching/Pruritis 06/24/19 19:52 07/24/19 19:51 Heparin Sodium (Porcine) (Heparin 5000 units/ml) 5,000 units EVERY 12 HOURS SUBQ 06/24/19 21:00 07/24/19 20:59 06/25/19 08:24 Hydromorphone HCl (Dilaudid) 0.5 mg Q3H PRN IVP Pain 4-10 06/25/19 14:30 07/02/19 14:29 Ondansetron HCl (Zofran) 4 mg Q6H PRN IVP Nausea & Vomiting 06/24/19 19:52 07/24/19 19:51 Assessment/Plan Problem List: (1) Fall Assessment & Plan: 88 year old female s/p fall now with renal insufficiency requiring HD spoke with family. she has known CKD multiple decubitus ulcers from being down malnutrition line placed see documentation trend labs abx HD thank you ICD Codes: W19.XXXA - Unspecified fall, initial encounter SNOMED: 4706655, 851499167 (2) Altered level of consciousness ICD Codes: R40.4 - Transient alteration of awareness SNOMED: 0662923 (3) Fracture of lumbar spine Assessment & Plan: Lungs: There is increased density at the lung bases likely atelectasis. Aorta is moderately calcified. There is a small hiatal hernia.. Liver: Grossly unremarkable. There is artifact limiting evaluation in addition to the fact that no IV or oral contrast was given for this examination. Gallbladder/biliary system: Grossly unremarkable. Spleen: Unremarkable Pancreas: In the area of the pancreatic tail there is a 1.6 cm nodular density which may be cystic. Further evaluation is recommended. Kidneys/Bladder: Vascular calcifications are quite extensive and extend to the hilum of both kidneys. Evaluation for punctate nonobstructive stones is limited in this setting but no definite stones seen. There is no hydronephrosis. Extensive breathing motion limiting evaluation.. Adrenal glands: Unremarkable Bowel: Patient's prior partial bowel resection in the right lower abdomen with anastomotic sutures noted. There is no evidence of a bowel obstruction or inflammatory changes. Appendix is not seen definitely but there are no signs of appendicitis. A few diverticula are noted within the colon. Aorta/IVC: There is a severe calcification of aorta and multiple branches of the aorta. Peritoneum: There is no free fluid. Bones: Bones are diffusely osteopenic. Multiple compression fracture deformities of several vertebra noted including lower thoracic vertebra and L1. There is narrowing of intervertebral discs and accompanying endplate osteophyte formation. Hypertrophied facet joints also demonstrated. Scoliosis of the lower thoracic spine convex to the right and left convex lumbar scoliosis noted. IMPRESSION: No acute findings appreciated. Study limited by the lack of intravenous oral contrast as well as extensive motion artifact. 1.6 cm probable cystic lesion in the pancreatic tail. This requires further evaluation with the contrast CT or MR. Status post previous partial bowel resection. 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 Degenerative changes as described above. ICD Codes: S32.009A - Unspecified fracture of unspecified lumbar vertebra, initial encounter for closed fracture SNOMED: 371737933 (4) Rhabdomyolysis ICD Codes: M62.82 - Rhabdomyolysis SNOMED: 221038974 (5) KAREN (acute kidney injury) ICD Codes: N17.9 - Acute kidney failure, unspecified SNOMED: 0567811, 72409720 (6) Decubitus skin ulcer Assessment & Plan: Pt presented on admission with multiple pressure injuries. Pt's niece Sarah stated pt lives alone and found pt laying on her R side on floor in patient's home.Niece believes pt has been laying on floor for approx 5 days. DTPI noted to R cheek. Base of wound is purple with marginal erythema along borders.(L)1.2cm x (W)1.6cm. Unstageable pressure injury R shoulder. Base of wound is 100% necrotic with marginal erythema along borders.(L)4.8cm x (W).3.5cm . DTPI R humerus. Base of wound is fluctuant and maroon in colour with surrounding erythema. (L)10.6cm x (W)3.1cm. DTPI R elbow.Base of wound is indurated with scattered areas that are purple in colour. An area of fluctuance in center. Marginal erythema along borders.(L) 5.3cm x (W)10.4cm. Partially opened Sacral DTPI. Base of wound is purple with surrounding erythema. Partial open wound marco a cleft that is corby and moist.(L)5.3cm x (W) 4.5cm.NO odor or exudate noted. Non-blanching erythema periwound. DTPI L ischium . Base of wound is purple and indurated.(L)6cm x (W)7.5cm. Unstageable pressure injury R hip. Base of wound is 75% necrotic, 25% mixed erythema and slough. Borders are moist,soft with scattered areas that are black. Periwound is dusky and indurated.No odor or exudate noted. DTPI at posterior and medial aspect of L heel. Base of wound is maroon and fluctuant(L)4cm x (W)7cm. Unstageable pressure injury L Hallux. Base of wound is 100% necrotic but soft. Borders are erythematous. Periwound without induration or fluctuance.(L)2.5cm x (W)3cm. DTPI medial L malleolus. Base of wound fluctuant and maroon in colour.(L) 0.3cm x (W)1.2cm. DTPI medial L malleolus. Base of wound fluctuant and maroon in colour with Marginal erythema along borders.(L)0.3cm x (W)1.2cm. Intact blood filled blisters noted to L 1st Metatarsal laterally and head of metatarsal. Intact blood filled blisters noted to heads of L 2nd and L 3rd metatarsals. DTPI noted to posterior and lateral R Heel. Posterior R heel is maroon in colour and fluctuant at base. Laterally ,R heel is black and fluctuant at base.Periwound is boggy and non-blanchable.(L)7cm x (W)8cm. Unstageable pressure injury lateral R malleolus. Base of wound is 100% necrotic and dry.Marginal erythema along borders.Periwound is fluctuant and erythematous( L)1.2cm x (W)1.5cm. DTPI distal/lateral R foot. Base of wound is fluctuant and maroon in colour.(L) 1.3cm x (W)1.7cm. DTPI lateral R 5th metatarsal. Base of wound is maroon and fluctuant with marginal erythema along borders .(L)0.7cm x (W)1.1cm Tx.Plan: Cleanse Wound R shoulder with Saline. Apply Therahoney. Apply Cavilon Skin barrier periwound. Cover with Optifoam drsg every 3 days and prn. Cleanse R hip wound with Saline. Apply Therahoney with 4x4 Gauze. Apply Moisture Barrier Paste periwound.Cover with Optifoam drsg. Daily and prn. Apply Moisture Barrier Paste to Sacral wound and L Ischium. Cover each wound with Optifoam drsg every 3 days and prn. Apply Betadine to R humerus and R elbow . Cover each wound with Optifoam drsg. Change every 3 days and prn. Apply Betadine to wounds R heel, R malleolus and R foot . Cover each wound with Optifoam drsg every 3 days and prn. Apply Betadine to wounds L heel ,L medial malleolus and L foot. Cover each wound with Optifoam drsgs every 3 Days and prn. Air Fluidized Mattress. Reposition at least every 2hours or as tolerated. Place Pillow between knees. Off-load heels with pillow. ICD Codes: L89.90 - Pressure ulcer of unspecified site, unspecified stage SNOMED: 386221223 Anshul Nava Jun 25, 2019 15:55
--- NOTE | 2019-06-25 15:57 | Operative Note - PDOC ---
Operative Note Operative Note Date of Operation/Procedure: Jun 25, 2019 Pre-op Diagnosis: Renal Insufficiency requiring Hemodialysis Procedure: Left femoral temporary hemodialysis catheter insertion Post-op Diagnosis: same as pre-op Surgeon: Anshul Nava MD Anesthesia: local Specimen: none Complications: none Condition: stable Estimated Blood Loss: minimal Drains: none Implant(s) used?: No Indications for Procedure 80 female renal insufficiency found down fall currently requiring planned hemodialysis given renal insufficiency as per kinder teacher patient not a prior dialysis candidate and does not have line or access. Line indicated recommended. Spoke with patient's power of attorney at law Jami and consent obtained Description of Procedure Patient made comfortable at bedside. Left groin was prepped and draped in the same surgical fashion. Local anesthetic was infiltrated in proposed needle incision catheter incision site. General anatomic landmarks were identified. Left femoral vein was cannulated on second stick without complication. Good venous flow noted. Guidewire passed needle removed. Small skin incision made around the wire and dilators used. 13 Greek temporary hemodialysis catheter inserted and wire removed and discarded. Good venous flow noted in both lines. Lines flushed and line sutured in place. Dressings applied. Patient tolerated procedure well. Proceed with hemodialysis Anshul Nava Jun 25, 2019 15:57
--- NOTE | 2019-06-25 15:58 | Diagnostic Imaging Report ---
Indication:Elevated Bun and Creatinine. Technique: Grayscale and duplex Doppler imaging of the kidneys performed. Comparison: None Findings: There are calcific foci in the kidneys bilaterally but these are likely vascular. 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 Cortical echogenicity is within normal limits. The right kidney measures 7.4 cm. in length. The left kidney measures 9.2 cm. in length. The IVC is patent. Urinary bladder is unremarkable. There is a cystic structure in the right adnexa incidentally noted measuring about 3.6 x 2.4 x 3.0 cm. IMPRESSION: No obstructive nephropathy. Vascular disease. 3.6 x 2.4 x 3.0 cm cystic structure in the right adnexa nonspecific in nature. Structure is not appreciated on CT.
[2019-06-25 16:00] VITALS: BP 95/51
[2019-06-25 20:23] LABS: BASOPHILS % (AUTO) 0.4 % (0.0-2.0); HEMATOCRIT 27.3 % (37.0-47.0); HEMOGLOBIN 8.6 G/DL (12.0-16.0); LYMPHOCYTES % (AUTO) 21.2 % (20.0-45.0); MEAN CORPUSCULAR VOLUME 82 FL (80-99); MONOCYTES % (AUTO) 3.9 % (1.0-10.0); NEUTROPHILS % (AUTO) 74.4 % (45.0-75.0); PLATELET COUNT 179 K/UL (150-450); RED BLOOD COUNT 3.33 M/UL (4.20-5.40); RED CELL DISTRIBUTION WIDTH 12.7 % (11.6-14.8); WHITE BLOOD COUNT 11.9 K/UL (4.8-10.8)
[2019-06-25 20:36] LABS: ANION GAP 15 mmol/L (5-15); BLOOD UREA NITROGEN 108 mg/dL (7-18); CALCIUM 7.6 MG/DL (8.5-10.1); CARBON DIOXIDE 22 MMOL/L (21-32); CHLORIDE 105 MMOL/L (98-107); POTASSIUM 3.4 MMOL/L (3.5-5.1); SODIUM 142 MMOL/L (136-145)
[2019-06-25] MEDS ORDERED: Albuterol ud Inhalation HHN PRN ×2 (21:00→23:45)
[2019-06-25] MEDS ORDERED: LR IV ONE (21:30)
[2019-06-25] MEDS ORDERED: Piperacillin/Tazobactam 3.375 GM in NS 110 ML IVPB SCH (22:00)
--- NOTE | 2019-06-25 22:16 | Diagnostic Imaging Report ---
Indication: Dyspnea Comparison: 06/24/2019 A single view chest radiograph was obtained. Findings: Interval complete opacification of the left hemithorax demonstrated. At the time of interpretation of this x-ray, a CT chest was already reviewed. The abnormal density in the left hemithorax is secondary to consolidation. The left lung was previously clear. The abrupt onset over the last 24 hours suggests an acute event such as aspiration. Please correlate clinically. Chest CT also revealed very little to no pleural effusion. Some atelectasis of the left lower lobe is noted and corroborated on the current chest x-ray given slight volume loss. IMPRESSION: Extensive left pulmonary infiltrate. Abrupt onset suggests aspiration pneumonia with a minor atelectasis component. Correlate clinically. Please refer to the CT chest report. Preliminary reading by shaina (prior to CT which was performed on the following day 06/26/2019) suggested pleural effusion and/or atelectasis. I agree with the interpretation given lack of knowledge of the CT findings.
[2019-06-25] MEDS ORDERED: Vancomycin 1gm/D5W 275ml IVPB ONE ×2 (23:00)
[2019-06-25] MEDS: Pantoprazole 80 MG in NS 250 ML IV SCH (23:19)
[2019-06-25] MEDS: Zosyn 2.25 gm in D5W 55ml IV SCH (23:20)
[2019-06-26] VITALS: BP 117/65
[2019-06-26] MEDS ORDERED: Dyna-Hex 2% Top Sol 2oz TOPIC SCH (00:29)
[2019-06-26 04:00] VITALS: BP 105/47
[2019-06-26 04:48] LABS: BASOPHILS % (AUTO) 0.7 % (0.0-2.0); EOSINOPHILS % (AUTO) 0.2 % (0.0-3.0); HEMATOCRIT 29.3 % (37.0-47.0); HEMOGLOBIN 9.8 G/DL (12.0-16.0); LYMPHOCYTES % (AUTO) 23.4 % (20.0-45.0); MEAN CORPUSCULAR VOLUME 81 FL (80-99); MONOCYTES % (AUTO) 5.5 % (1.0-10.0); NEUTROPHILS % (AUTO) 70.2 % (45.0-75.0); PLATELET COUNT 181 K/UL (150-450); RED BLOOD COUNT 3.64 M/UL (4.20-5.40); RED CELL DISTRIBUTION WIDTH 11.3 % (11.6-14.8); WHITE BLOOD COUNT 8.3 K/UL (4.8-10.8)
[2019-06-26 05:19] LABS: ALANINE AMINOTRANSFERASE 138 U/L (12-78); ALBUMIN 2.9 G/DL (3.4-5.0); ALBUMIN/GLOBULIN RATIO 1.2 (1.0-2.7); ALKALINE PHOSPHATASE 48 U/L (46-116); ANION GAP 14 mmol/L (5-15); ASPARTATE AMINO TRANSFERASE 511 U/L (15-37); BILIRUBIN,DIRECT 0.1 MG/DL (0.0-0.3); BILIRUBIN,TOTAL 0.9 MG/DL (0.2-1.0); BLOOD UREA NITROGEN 111 mg/dL (7-18); CALCIUM 7.6 MG/DL (8.5-10.1); CARBON DIOXIDE 22 MMOL/L (21-32); CHLORIDE 104 MMOL/L (98-107); CREATININE 4.1 MG/DL (0.55-1.30); POTASSIUM 3.7 MMOL/L (3.5-5.1); SODIUM 140 MMOL/L (136-145)
[2019-06-26] MEDS: Zosyn 2.25 gm in D5W 55ml IV SCH ×3 (06:14→21:40)
[2019-06-26 08:00] VITALS: BP 137/63
[2019-06-26] MEDS: Pantoprazole 80 MG in NS 250 ML IV SCH ×2 (08:08→17:46)
[2019-06-26] MEDS: Omnipaque-300 100ml vial INJ SCH (10:00)
[2019-06-26 12:00] VITALS: BP 120/68
--- NOTE | 2019-06-26 12:16 | Nephrology Progress Note ---
Assessment/Plan Plan #acute renal failure on possible CKD- due to rhabdo- UA with + RBC- concerns for developing ATN #Uremia #complete opacification of the left hemithorax- #lactic acidosis #Hypernatremia- improved #AMS #elevated liver enzyme - hold off on HD today - will likely need HD tomorrow - DC IVF- patient now oliguric - on bipap - pulmonary eval - Monitor sodium - monitor acidosis - renal US-> No obstructive nephropathy. - monitor liver enzymes Subjective ROS Limited/Unobtainable: Yes Subjective s/p HD last night hypotensive during HD Given multiple doses of albumin chest xray noted on bipap Comparison: 06/24/19 complete opacification of the left hemithorax with shift of the heart and mediastinum to the left. Findings suspicious for complete collapse that may be secondary to endobronchial lesion. Large effusion or hemothorax not excluded. Negative for evidence of pneumothorax. Objective Objective Last 24 Hour Vital Signs Date Time Temp Pulse Resp B/P (MAP) Pulse Ox O2 Delivery O2 Flow Rate FiO2 06/26/19 09:22 99 33 95 70 06/26/19 08:00 Bi-pap 06/26/19 08:00 98.2 98 16 137/63 (87) 97 06/26/19 07:37 98 06/26/19 07:20 97 Bi-Pap 70 06/26/19 07:20 94 37 97 70 06/26/19 07:20 70 06/26/19 05:28 108 37 95 60 06/26/19 04:00 100 06/26/19 04:00 Bi-pap 06/26/19 04:00 98.2 83 30 105/47 (66) 97 06/26/19 03:40 82 06/26/19 03:19 85 32 98 70 06/26/19 01:57 88 33 96 80 06/26/19 00:00 97.5 89 30 117/65 (82) 100 06/26/19 00:00 Bi-pap 06/26/19 00:00 88 06/25/19 23:41 88 33 97 100 06/25/19 22:31 100 06/25/19 21:45 93 27 97 100 06/25/19 21:17 93 Non-Rebreather 15.0 100 06/25/19 21:15 Non-Rebreather 15.0 100 06/25/19 21:13 92 26 93 Non-Rebreather 15.0 100 06/25/19 20:00 5.0 06/25/19 20:00 92 06/25/19 20:00 Nasal Cannula 5.0 06/25/19 16:00 Nasal Cannula 1.5 06/25/19 16:00 97.8 94 20 95/51 (66) 100 06/25/19 16:00 1.5 06/25/19 16:00 92 Intake and Output 06/25/19 06/26/19 19:00 07:00 Intake Total 1800 ml 880 ml Output Total 150 ml 120 ml Balance 1650 ml 760 ml Intake IV Total 1800 ml 880 ml Output Urine Total 150 ml 120 ml # Bowel Movements 2 Laboratory Tests 06/25/19 17:30: Hepatitis B Surface Antigen Negative 06/25/19 20:13: White Blood Count 11.9H, Red Blood Count 3.33L, Hemoglobin 8.6L, Hematocrit 27.3L, Mean Corpuscular Volume 82, Mean Corpuscular Hemoglobin 25.9L, Mean Corpuscular Hemoglobin Concent 31.7L, Red Cell Distribution Width 12.7, Platelet Count 179, Mean Platelet Volume 7.4, Neutrophils (%) (Auto) 74.4, Lymphocytes (%) (Auto) 21.2, Monocytes (%) (Auto) 3.9, Eosinophils (%) (Auto) 0.0, Basophils (%) (Auto) 0.4, Sodium Level 142#, Potassium Level 3.4L, Chloride Level 105, Carbon Dioxide Level 22, Anion Gap 15, Blood Urea Nitrogen 108H, Creatinine 4.0H, Estimat Glomerular Filtration Rate 12.7, Glucose Level 156H, Lactic Acid Level 3.00H, Calcium Level 7.6L 06/25/19 21:38: Arterial Blood pH 7.469H, Arterial Blood Partial Pressure CO2 30.8L, Arterial Blood Partial Pressure O2 60.7L, Arterial Blood HCO3 21.9L, Arterial Blood Oxygen Saturation 90.5L, Arterial Blood Base Excess -1.3, Van Test Positive 06/25/19 23:15: Lactic Acid Level 2.20 06/25/19 23:31: Arterial Blood pH 7.480H, Arterial Blood Partial Pressure CO2 29.8L, Arterial Blood Partial Pressure O2 102.0H, Arterial Blood HCO3 21.8L, Arterial Blood Oxygen Saturation 97.1, Arterial Blood Base Excess -1.0, Van Test Positive 06/26/19 03:25: White Blood Count 8.3, Red Blood Count 3.64L, Hemoglobin 9.8L, Hematocrit 29.3L , Mean Corpuscular Volume 81, Mean Corpuscular Hemoglobin 26.9L, Mean Corpuscular Hemoglobin Concent 33.4, Red Cell Distribution Width 11.3L, Platelet Count 181, Mean Platelet Volume 8.1, Neutrophils (%) (Auto) 70.2, Lymphocytes (%) (Auto) 23.4, Monocytes (%) (Auto) 5.5, Eosinophils (%) (Auto) 0.2, Basophils (%) (Auto) 0.7, Sodium Level 140, Potassium Level 3.7, Chloride Level 104, Carbon Dioxide Level 22, Anion Gap 14, Blood Urea Nitrogen 111H, Creatinine 4.1H, Estimat Glomerular Filtration Rate 12.4, Glucose Level 120H, Calcium Level 7.6L, Total Bilirubin 0.9, Direct Bilirubin 0.1, Aspartate Amino Transf (AST/SGOT) 511H, Alanine Aminotransferase (ALT/SGPT) 138H, Alkaline Phosphatase 48, Troponin I 0.899H, Total Protein 5.4L, Albumin 2.9L, Globulin 2.5, Albumin/Globulin Ratio 1.2 06/26/19 08:34: Arterial Blood pH 7.502H, Arterial Blood Partial Pressure CO2 25.3L, Arterial Blood Partial Pressure O2 77.6, Arterial Blood HCO3 19.4L, Arterial Blood Oxygen Saturation 95.2, Arterial Blood Base Excess -2.6L, Van Test Positive Height (Feet): 5 Height (Inches): 4.00 Weight (Pounds): 115 Objective General Appearance: lethargic, confused, on bipap Lines, tubes and drains: peripheral HEENT: normocephalic, atraumatic Neck: non-tender Respiratory/Chest: minimal breath sounds on the left Cardiovascular/Chest: normal peripheral pulses, normal rate, regular rhythm, regularly irregular Abdomen: non tender, soft Rory Oconnor M.D. Jun 26, 2019 12:16
--- NOTE | 2019-06-26 12:26 | Diagnostic Imaging Report ---
Indication: Altered consciousness. Shortness of breath. Abnormal chest x-ray Technique: Continuous helical transaxial imaging of the chest was obtained from the thoracic inlet to the upper abdomen. No intravenous contrast was administered. Coronal 2-D reformats were also obtained. Total Dose length Product (DLP): 146.[address] Dose Index Volume (CTDIvol): 4.2 mGy Comparison: Chest x-rays 06/25/2019, 06/24/2019, CT abdomen 06/24/2019 Findings: Examination demonstrates extensive consolidation in the left perihilar lung extending into the left upper lobe and the left lower lobe. There is no pleural effusion. There is a small amount of volume loss with slight shifting of the heart toward the left side indicating there is some atelectasis but most of the lung disease is consolidative in appearance. By chest x-ray, the patient's left lung was clear on 06/24/2019. On the following day, complete opacification of left hemithorax is noted. The findings suggest pneumonia and there is a high suspicion of aspiration given the abrupt onset. Please correlate clinically. The aorta is moderately calcified. Coronary calcification also noted. The right lung is relatively clear. There is some motion artifact. There is mild right posterior basal atelectasis. Scoliosis of the thoracal lumbar spine noted. An old compression fracture of the L1 vertebra demonstrated. There is narrowing of intervertebral discs and accompanying endplate osteophyte formation. Hypertrophied facet joints also demonstrated.. Generalized osteopenia noted. IMPRESSION: Extensive airspace consolidation in the left lung involving the left perihilar, upper lobe and left lower lobe. Findings suspicious for pneumonia, especially aspiration given the abrupt onset. Please correlate clinically. Partial atelectasis of the left lower lobe also noted. Atherosclerotic vascular disease. Degenerative changes of the spine and scoliosis. The CT scanner at [facility] is accredited by the [employer] and the scans are performed using dose optimization techniques as appropriate to a performed exam including Automatic Exposure control.
--- NOTE | 2019-06-26 13:02 | Diagnostic Imaging Report ---
Indication: Back pain Technique: Continuous helical transaxial imaging of the lumbar spine was obtained from the lung bases to the pubic symphysis. Non-ionic contrast was given IV. Coronal 2-D reformats were also obtained. Study obtained in a Siemens sensation [address] Total Dose length Product (DLP): 250.[address] Dose Index Volume (CTDIvol): 7.1 mGy Comparison: None Findings: There is a fracture involving the L1 vertebra with the moderate to severe loss of height. The fractures probably old based on the appearance. Bones are osteopenic. There are superimposed degenerative changes including vertebral endplate osteophytes. In terms of alignment there is a slight convexity of the lumbar spine to the left which may be secondary to the more prominent right-sided convexity of the thoracic spine to the right. Multilevel vertebral endplate osteophytes and hypertrophied facets demonstrated throughout the lumbar spine. There is narrowing of intervertebral discs, moderate to severe in degree at multiple levels. Variable degrees of neural foraminal stenosis are demonstrated especially and particularly at the L4-5 and L5-S1 levels due to facet arthropathy. Evaluation of this with MRI may be helpful if needed. There is extensive calcification of the aorta and iliac arteries. IMPRESSION: Moderate to severe vertebral compression fracture of L1 probably old. Moderate to severe degenerative changes of the lumbar spine. Arterial vascular disease.
[2019-06-26 13:42] LABS: CKMB 343.6 NG/ML (0.0-3.6); CREATINE KINASE > 10000 U/L (26-308)
--- NOTE | 2019-06-26 13:51 | Infectious Diseases Prog Note ---
Assessment/Plan Assessment/Plan Full consult to follow: A) 1) pneumonia, possible bacteremia with gram + bc, sepsis, sob, renal failure/hd , leukocytosis 2) pmh noted 3) allergies - nkda P) 1) zosyn plus vancomycin 2) check cultures, labs and chest x-ray 3) thank you Subjective Allergies: Coded Allergies: No Known Allergies (Unverified , 06/24/19) Objective Vital Signs Last 24 Hour Vital Signs Date Time Temp Pulse Resp B/P (MAP) Pulse Ox O2 Delivery O2 Flow Rate FiO2 06/26/19 11:41 100 06/26/19 09:22 99 33 95 70 06/26/19 08:00 Bi-pap 06/26/19 08:00 98.2 98 16 137/63 (87) 97 06/26/19 07:37 98 06/26/19 07:20 97 Bi-Pap 70 06/26/19 07:20 94 37 97 70 06/26/19 07:20 70 06/26/19 05:28 108 37 95 60 06/26/19 04:00 100 06/26/19 04:00 Bi-pap 06/26/19 04:00 98.2 83 30 105/47 (66) 97 06/26/19 03:40 82 06/26/19 03:19 85 32 98 70 06/26/19 01:57 88 33 96 80 06/26/19 00:00 97.5 89 30 117/65 (82) 100 06/26/19 00:00 Bi-pap 06/26/19 00:00 88 06/25/19 23:41 88 33 97 100 06/25/19 22:31 100 06/25/19 21:45 93 27 97 100 06/25/19 21:17 93 Non-Rebreather 15.0 100 06/25/19 21:15 Non-Rebreather 15.0 100 06/25/19 21:13 92 26 93 Non-Rebreather 15.0 100 06/25/19 20:00 5.0 06/25/19 20:00 92 06/25/19 20:00 Nasal Cannula 5.0 06/25/19 16:00 Nasal Cannula 1.5 06/25/19 16:00 97.8 94 20 95/51 (66) 100 06/25/19 16:00 1.5 06/25/19 16:00 92 Height (Feet): 5 Height (Inches): 4.00 Weight (Pounds): 115 Microbiology Date/Time Source Procedure Growth Status 06/24/19 18:00 Blood Blood Culture - Preliminary Resulted 06/24/19 17:50 Blood Blood Culture - Preliminary NO GROWTH AFTER 24 HOURS Resulted Laboratory Tests Test 06/25/19 17:30 06/25/19 20:13 06/25/19 21:38 06/25/19 23:15 Hepatitis B Surface Antigen Negative (NEGATIVE) White Blood Count 11.9 K/UL (4.8-10.8) H Red Blood Count 3.33 M/UL (4.20-5.40) L Hemoglobin 8.6 G/DL (12.0-16.0) L Hematocrit 27.3 % (37.0-47.0) L Mean Corpuscular Volume 82 FL (80-99) Mean Corpuscular Hemoglobin 25.9 PG (27.0-31.0) L Mean Corpuscular Hemoglobin Concent 31.7 G/DL (32.0-36.0) L Red Cell Distribution Width 12.7 % (11.6-14.8) Platelet Count 179 K/UL (150-450) Mean Platelet Volume 7.4 FL (6.5-10.1) Neutrophils (%) (Auto) 74.4 % (45.0-75.0) Lymphocytes (%) (Auto) 21.2 % (20.0-45.0) Monocytes (%) (Auto) 3.9 % (1.0-10.0) Eosinophils (%) (Auto) 0.0 % (0.0-3.0) Basophils (%) (Auto) 0.4 % (0.0-2.0) Sodium Level 142 MMOL/L (136-145) # Potassium Level 3.4 MMOL/L (3.5-5.1) L Chloride Level 105 MMOL/L (98-107) Carbon Dioxide Level 22 MMOL/L (21-32) Anion Gap 15 mmol/L (5-15) Blood Urea Nitrogen 108 mg/dL (7-18) H Creatinine 4.0 MG/DL (0.55-1.30) H Estimat Glomerular Filtration Rate 12.7 mL/min (>60) Glucose Level 156 MG/DL (74-106) H Lactic Acid Level 3.00 mmol/L (0.4-2.0) H 2.20 mmol/L (0.66-2.22) Calcium Level 7.6 MG/DL (8.5-10.1) L Arterial Blood pH 7.469 (7.350-7.450) Arterial Blood Partial Pressure CO2 30.8 mmHg (35.0-45.0) L Arterial Blood Partial Pressure O2 60.7 mmHg (75.0-100.0) L Arterial Blood HCO3 21.9 mmol/L (22.0-26.0) L Arterial Blood Oxygen Saturation 90.5 % (95-100) L Arterial Blood Base Excess -1.3 (-2-2) Van Test Positive Test 06/25/19 23:31 06/26/19 03:25 06/26/19 03:50 06/26/19 08:34 Arterial Blood pH 7.480 (7.350-7.450) 7.502 (7.350-7.450) Arterial Blood Partial Pressure CO2 29.8 mmHg (35.0-45.0) L 25.3 mmHg (35.0-45.0) L Arterial Blood Partial Pressure O2 102.0 mmHg (75.0-100.0) H 77.6 mmHg (75.0-100.0) Arterial Blood HCO3 21.8 mmol/L (22.0-26.0) L 19.4 mmol/L (22.0-26.0) L Arterial Blood Oxygen Saturation 97.1 % (95-100) 95.2 % (95-100) Arterial Blood Base Excess -1.0 (-2-2) -2.6 (-2-2) L Van Test Positive Positive White Blood Count 8.3 K/UL (4.8-10.8) Red Blood Count 3.64 M/UL (4.20-5.40) L Hemoglobin 9.8 G/DL (12.0-16.0) L Hematocrit 29.3 % (37.0-47.0) L Mean Corpuscular Volume 81 FL (80-99) Mean Corpuscular Hemoglobin 26.9 PG (27.0-31.0) L Mean Corpuscular Hemoglobin Concent 33.4 G/DL (32.0-36.0) Red Cell Distribution Width 11.3 % (11.6-14.8) L Platelet Count 181 K/UL (150-450) Mean Platelet Volume 8.1 FL (6.5-10.1) Neutrophils (%) (Auto) 70.2 % (45.0-75.0) Lymphocytes (%) (Auto) 23.4 % (20.0-45.0) Monocytes (%) (Auto) 5.5 % (1.0-10.0) Eosinophils (%) (Auto) 0.2 % (0.0-3.0) Basophils (%) (Auto) 0.7 % (0.0-2.0) Sodium Level 140 MMOL/L (136-145) Potassium Level 3.7 MMOL/L (3.5-5.1) Chloride Level 104 MMOL/L (98-107) Carbon Dioxide Level 22 MMOL/L (21-32) Anion Gap 14 mmol/L (5-15) Blood Urea Nitrogen 111 mg/dL (7-18) H Creatinine 4.1 MG/DL (0.55-1.30) H Estimat Glomerular Filtration Rate 12.4 mL/min (>60) Glucose Level 120 MG/DL (74-106) H Calcium Level 7.6 MG/DL (8.5-10.1) L Total Bilirubin 0.9 MG/DL (0.2-1.0) Direct Bilirubin 0.1 MG/DL (0.0-0.3) Aspartate Amino Transf (AST/SGOT) 511 U/L (15-37) H Alanine Aminotransferase (ALT/SGPT) 138 U/L (12-78) H Alkaline Phosphatase 48 U/L (46-116) Troponin I 0.899 ng/mL (0.000-0.056) Total Protein 5.4 G/DL (6.4-8.2) L Albumin 2.9 G/DL (3.4-5.0) L Globulin 2.5 g/dL Albumin/Globulin Ratio 1.2 (1.0-2.7) Total Creatine Kinase > 52794 U/L (26-308) H Creatine Kinase MB 343.6 NG/ML (0.0-3.6) H Creatine Kinase MB Relative Index 0.0 Current Medications Medications (Trade) Dose Ordered Sig/Joan Route PRN Reason Start Time Stop Time Status Last Admin Dose Admin Acetaminophen (Tylenol) 650 mg Q4H PRN ORAL Mild Pain (Pain Scale 1-3) 06/24/19 19:52 07/24/19 19:51 Acetylcysteine (Mucomyst) 100 mg Q4HRT PRN HHN Shortness of Breath 06/25/19 23:45 07/25/19 22:59 Albuterol Sulfate (Proventil) 2.5 mg Q4HR PRN HHN Shortness of Breath 06/25/19 23:45 06/30/19 20:59 Chlorhexidine Gluconate (Cari-Hex 2%) 1 applic DAILY@2000 TOPIC 06/26/19 20:00 07/26/19 19:59 Dextrose (Dextrose 50%) 25 ml Q30M PRN IV Hypoglycemia 06/24/19 19:52 07/24/19 19:51 Dextrose (Dextrose 50%) 50 ml Q30M PRN IV Hypoglycemia 06/24/19 19:52 07/24/19 19:51 Diphenhydramine HCl (Benadryl) 25 mg Q6H PRN ORAL Itching/Pruritis 06/24/19 19:52 07/24/19 19:51 Hydromorphone HCl (Dilaudid) 0.5 mg Q3H PRN IVP Pain 4-10 06/25/19 14:30 07/02/19 14:29 Iohexol (OMNIPAQUE-300 100ml) 100 ml ONCE INJ 06/26/19 10:00 07/26/19 16:00 Ondansetron HCl (Zofran) 4 mg Q6H PRN IVP Nausea & Vomiting 06/24/19 19:52 07/24/19 19:51 Pantoprazole 80 mg/Sodium Chloride 250 ml @ 25 mls/hr Q10H IV 06/25/19 22:00 07/25/19 21:59 06/26/19 08:08 Piperacillin Sod/ Tazobactam Sod 2.25 gm/Dextrose 55 ml @ 110 mls/hr Q8HR IV 06/25/19 22:00 06/30/19 21:59 06/26/19 06:14 Vancomycin HCl (Vanco rx to dose) 1 ea DAILY PRN MISC Per rx protocol 06/25/19 21:00 07/25/19 20:59 Alkasspooles,Salam MD Jun 26, 2019 13:51
--- NOTE | 2019-06-26 14:42 | Surgery Progress Note ---
Surgery Progress Note Subjective Procedure Performed Left femoral temporary hemodialysis catheter insertion Additional Comments no acute events labs stable comfortable nieces at bedside Objective Last 24 Hour Vital Signs Date Time Temp Pulse Resp B/P (MAP) Pulse Ox O2 Delivery O2 Flow Rate FiO2 06/26/19 11:41 100 06/26/19 09:22 99 33 95 70 06/26/19 08:00 Bi-pap 06/26/19 08:00 98.2 98 16 137/63 (87) 97 06/26/19 07:37 98 06/26/19 07:20 97 Bi-Pap 70 06/26/19 07:20 94 37 97 70 06/26/19 07:20 70 06/26/19 05:28 108 37 95 60 06/26/19 04:00 100 06/26/19 04:00 Bi-pap 06/26/19 04:00 98.2 83 30 105/47 (66) 97 06/26/19 03:40 82 06/26/19 03:19 85 32 98 70 06/26/19 01:57 88 33 96 80 06/26/19 00:00 97.5 89 30 117/65 (82) 100 06/26/19 00:00 Bi-pap 06/26/19 00:00 88 06/25/19 23:41 88 33 97 100 06/25/19 22:31 100 06/25/19 21:45 93 27 97 100 06/25/19 21:17 93 Non-Rebreather 15.0 100 06/25/19 21:15 Non-Rebreather 15.0 100 06/25/19 21:13 92 26 93 Non-Rebreather 15.0 100 06/25/19 20:00 5.0 06/25/19 20:00 92 06/25/19 20:00 Nasal Cannula 5.0 06/25/19 16:00 Nasal Cannula 1.5 06/25/19 16:00 97.8 94 20 95/51 (66) 100 06/25/19 16:00 1.5 06/25/19 16:00 92 I&O Intake and Output 06/25/19 06/26/19 19:00 07:00 Intake Total 1800 ml 880 ml Output Total 150 ml 120 ml Balance 1650 ml 760 ml Intake IV Total 1800 ml 880 ml Output Urine Total 150 ml 120 ml # Bowel Movements 2 Dressing: other Wound: other Drains: other Cardiovascular: RSR Respiratory: decreased breath sounds Abdomen: soft, present bowel sounds Extremities: no cyanosis, other Laboratory Tests Test 06/25/19 17:30 06/25/19 20:13 06/25/19 21:38 06/25/19 23:15 Hepatitis B Surface Antigen Negative (NEGATIVE) White Blood Count 11.9 K/UL (4.8-10.8) H Red Blood Count 3.33 M/UL (4.20-5.40) L Hemoglobin 8.6 G/DL (12.0-16.0) L Hematocrit 27.3 % (37.0-47.0) L Mean Corpuscular Volume 82 FL (80-99) Mean Corpuscular Hemoglobin 25.9 PG (27.0-31.0) L Mean Corpuscular Hemoglobin Concent 31.7 G/DL (32.0-36.0) L Red Cell Distribution Width 12.7 % (11.6-14.8) Platelet Count 179 K/UL (150-450) Mean Platelet Volume 7.4 FL (6.5-10.1) Neutrophils (%) (Auto) 74.4 % (45.0-75.0) Lymphocytes (%) (Auto) 21.2 % (20.0-45.0) Monocytes (%) (Auto) 3.9 % (1.0-10.0) Eosinophils (%) (Auto) 0.0 % (0.0-3.0) Basophils (%) (Auto) 0.4 % (0.0-2.0) Sodium Level 142 MMOL/L (136-145) # Potassium Level 3.4 MMOL/L (3.5-5.1) L Chloride Level 105 MMOL/L (98-107) Carbon Dioxide Level 22 MMOL/L (21-32) Anion Gap 15 mmol/L (5-15) Blood Urea Nitrogen 108 mg/dL (7-18) H Creatinine 4.0 MG/DL (0.55-1.30) H Estimat Glomerular Filtration Rate 12.7 mL/min (>60) Glucose Level 156 MG/DL (74-106) H Lactic Acid Level 3.00 mmol/L (0.4-2.0) H 2.20 mmol/L (0.66-2.22) Calcium Level 7.6 MG/DL (8.5-10.1) L Arterial Blood pH 7.469 (7.350-7.450) Arterial Blood Partial Pressure CO2 30.8 mmHg (35.0-45.0) L Arterial Blood Partial Pressure O2 60.7 mmHg (75.0-100.0) L Arterial Blood HCO3 21.9 mmol/L (22.0-26.0) L Arterial Blood Oxygen Saturation 90.5 % (95-100) L Arterial Blood Base Excess -1.3 (-2-2) Van Test Positive Test 06/25/19 23:31 06/26/19 03:25 06/26/19 03:50 06/26/19 08:34 Arterial Blood pH 7.480 (7.350-7.450) 7.502 (7.350-7.450) Arterial Blood Partial Pressure CO2 29.8 mmHg (35.0-45.0) L 25.3 mmHg (35.0-45.0) L Arterial Blood Partial Pressure O2 102.0 mmHg (75.0-100.0) H 77.6 mmHg (75.0-100.0) Arterial Blood HCO3 21.8 mmol/L (22.0-26.0) L 19.4 mmol/L (22.0-26.0) L Arterial Blood Oxygen Saturation 97.1 % (95-100) 95.2 % (95-100) Arterial Blood Base Excess -1.0 (-2-2) -2.6 (-2-2) L Van Test Positive Positive White Blood Count 8.3 K/UL (4.8-10.8) Red Blood Count 3.64 M/UL (4.20-5.40) L Hemoglobin 9.8 G/DL (12.0-16.0) L Hematocrit 29.3 % (37.0-47.0) L Mean Corpuscular Volume 81 FL (80-99) Mean Corpuscular Hemoglobin 26.9 PG (27.0-31.0) L Mean Corpuscular Hemoglobin Concent 33.4 G/DL (32.0-36.0) Red Cell Distribution Width 11.3 % (11.6-14.8) L Platelet Count 181 K/UL (150-450) Mean Platelet Volume 8.1 FL (6.5-10.1) Neutrophils (%) (Auto) 70.2 % (45.0-75.0) Lymphocytes (%) (Auto) 23.4 % (20.0-45.0) Monocytes (%) (Auto) 5.5 % (1.0-10.0) Eosinophils (%) (Auto) 0.2 % (0.0-3.0) Basophils (%) (Auto) 0.7 % (0.0-2.0) Sodium Level 140 MMOL/L (136-145) Potassium Level 3.7 MMOL/L (3.5-5.1) Chloride Level 104 MMOL/L (98-107) Carbon Dioxide Level 22 MMOL/L (21-32) Anion Gap 14 mmol/L (5-15) Blood Urea Nitrogen 111 mg/dL (7-18) H Creatinine 4.1 MG/DL (0.55-1.30) H Estimat Glomerular Filtration Rate 12.4 mL/min (>60) Glucose Level 120 MG/DL (74-106) H Calcium Level 7.6 MG/DL (8.5-10.1) L Total Bilirubin 0.9 MG/DL (0.2-1.0) Direct Bilirubin 0.1 MG/DL (0.0-0.3) Aspartate Amino Transf (AST/SGOT) 511 U/L (15-37) H Alanine Aminotransferase (ALT/SGPT) 138 U/L (12-78) H Alkaline Phosphatase 48 U/L (46-116) Troponin I 0.899 ng/mL (0.000-0.056) Total Protein 5.4 G/DL (6.4-8.2) L Albumin 2.9 G/DL (3.4-5.0) L Globulin 2.5 g/dL Albumin/Globulin Ratio 1.2 (1.0-2.7) Total Creatine Kinase > 82744 U/L (26-308) H Creatine Kinase MB 343.6 NG/ML (0.0-3.6) H Creatine Kinase MB Relative Index 0.0 Plan Problems: (1) Fall Assessment & Plan: 88 year old female s/p fall now with renal insufficiency requiring HD spoke with family. she has known CKD multiple decubitus ulcers from being down malnutrition line placed see documentation trend labs abx HD thank you (2) Altered level of consciousness (3) Fracture of lumbar spine Assessment & Plan: Lungs: There is increased density at the lung bases likely atelectasis. Aorta is moderately calcified. There is a small hiatal hernia.. Liver: Grossly unremarkable. There is artifact limiting evaluation in addition to the fact that no IV or oral contrast was given for this examination. Gallbladder/biliary system: Grossly unremarkable. Spleen: Unremarkable Pancreas: In the area of the pancreatic tail there is a 1.6 cm nodular density which may be cystic. Further evaluation is recommended. Kidneys/Bladder: Vascular calcifications are quite extensive and extend to the hilum of both kidneys. Evaluation for punctate nonobstructive stones is limited in this setting but no definite stones seen. There is no hydronephrosis. Extensive breathing motion limiting evaluation.. Adrenal glands: Unremarkable Bowel: Patient's prior partial bowel resection in the right lower abdomen with anastomotic sutures noted. There is no evidence of a bowel obstruction or inflammatory changes. Appendix is not seen definitely but there are no signs of appendicitis. A few diverticula are noted within the colon. Aorta/IVC: There is a severe calcification of aorta and multiple branches of the aorta. Peritoneum: There is no free fluid. Bones: Bones are diffusely osteopenic. Multiple compression fracture deformities of several vertebra noted including lower thoracic vertebra and L1. There is narrowing of intervertebral discs and accompanying endplate osteophyte formation. Hypertrophied facet joints also demonstrated. Scoliosis of the lower thoracic spine convex to the right and left convex lumbar scoliosis noted. IMPRESSION: No acute findings appreciated. Study limited by the lack of intravenous oral contrast as well as extensive motion artifact. 1.6 cm probable cystic lesion in the pancreatic tail. This requires further evaluation with the contrast CT or MR. Status post previous partial bowel resection. 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 Degenerative changes as described above. (4) Rhabdomyolysis (5) KAREN (acute kidney injury) (6) Decubitus skin ulcer Assessment & Plan: Pt presented on admission with multiple pressure injuries. Pt's niece Sarah stated pt lives alone and found pt laying on her R side on floor in patient's home.Niece believes pt has been laying on floor for approx 5 days. DTPI noted to R cheek. Base of wound is purple with marginal erythema along borders.(L)1.2cm x (W)1.6cm. Unstageable pressure injury R shoulder. Base of wound is 100% necrotic with marginal erythema along borders.(L)4.8cm x (W).3.5cm . DTPI R humerus. Base of wound is fluctuant and maroon in colour with surrounding erythema. (L)10.6cm x (W)3.1cm. DTPI R elbow.Base of wound is indurated with scattered areas that are purple in colour. An area of fluctuance in center. Marginal erythema along borders.(L) 5.3cm x (W)10.4cm. Partially opened Sacral DTPI. Base of wound is purple with surrounding erythema. Partial open wound marco a cleft that is corby and moist.(L)5.3cm x (W) 4.5cm.NO odor or exudate noted. Non-blanching erythema periwound. DTPI L ischium . Base of wound is purple and indurated.(L)6cm x (W)7.5cm. Unstageable pressure injury R hip. Base of wound is 75% necrotic, 25% mixed erythema and slough. Borders are moist,soft with scattered areas that are black. Periwound is dusky and indurated.No odor or exudate noted. DTPI at posterior and medial aspect of L heel. Base of wound is maroon and fluctuant(L)4cm x (W)7cm. Unstageable pressure injury L Hallux. Base of wound is 100% necrotic but soft. Borders are erythematous. Periwound without induration or fluctuance.(L)2.5cm x (W)3cm. DTPI medial L malleolus. Base of wound fluctuant and maroon in colour.(L) 0.3cm x (W)1.2cm. DTPI medial L malleolus. Base of wound fluctuant and maroon in colour with Marginal erythema along borders.(L)0.3cm x (W)1.2cm. Intact blood filled blisters noted to L 1st Metatarsal laterally and head of metatarsal. Intact blood filled blisters noted to heads of L 2nd and L 3rd metatarsals. DTPI noted to posterior and lateral R Heel. Posterior R heel is maroon in colour and fluctuant at base. Laterally ,R heel is black and fluctuant at base.Periwound is boggy and non-blanchable.(L)7cm x (W)8cm. Unstageable pressure injury lateral R malleolus. Base of wound is 100% necrotic and dry.Marginal erythema along borders.Periwound is fluctuant and erythematous( L)1.2cm x (W)1.5cm. DTPI distal/lateral R foot. Base of wound is fluctuant and maroon in colour.(L) 1.3cm x (W)1.7cm. DTPI lateral R 5th metatarsal. Base of wound is maroon and fluctuant with marginal erythema along borders .(L)0.7cm x (W)1.1cm Tx.Plan: Cleanse Wound R shoulder with Saline. Apply Therahoney. Apply Cavilon Skin barrier periwound. Cover with Optifoam drsg every 3 days and prn. Cleanse R hip wound with Saline. Apply Therahoney with 4x4 Gauze. Apply Moisture Barrier Paste periwound.Cover with Optifoam drsg. Daily and prn. Apply Moisture Barrier Paste to Sacral wound and L Ischium. Cover each wound with Optifoam drsg every 3 days and prn. Apply Betadine to R humerus and R elbow . Cover each wound with Optifoam drsg. Change every 3 days and prn. Apply Betadine to wounds R heel, R malleolus and R foot . Cover each wound with Optifoam drsg every 3 days and prn. Apply Betadine to wounds L heel ,L medial malleolus and L foot. Cover each wound with Optifoam drsgs every 3 Days and prn. Air Fluidized Mattress. Reposition at least every 2hours or as tolerated. Place Pillow between knees. Off-load heels with pillow. Anshul Nava Jun 26, 2019 14:42
[2019-06-26 16:00] VITALS: BP 135/65
--- NOTE | 2019-06-26 16:40 | General Progress Note ---
Assessment/Plan Problem List: (1) Fall ICD Codes: W19.XXXA - Unspecified fall, initial encounter SNOMED: 4233312, 435539992 (2) Altered level of consciousness ICD Codes: R40.4 - Transient alteration of awareness SNOMED: 2490325 (3) Fracture of lumbar spine ICD Codes: S32.009A - Unspecified fracture of unspecified lumbar vertebra, initial encounter for closed fracture SNOMED: 670825597 (4) Rhabdomyolysis ICD Codes: M62.82 - Rhabdomyolysis SNOMED: 323374169 (5) KAREN (acute kidney injury) ICD Codes: N17.9 - Acute kidney failure, unspecified SNOMED: 6413667, 36011166 Status: deteriorating Assessment/Plan: #Rhabdomyolosis #KAREN #Uremic encephaloapathy #Anion gap metabolic acidosis #Lactic acidosis -resolved #Pressure wounds. -Nephrology consulted. -General surgery consulted for wound care, central line insertion. -stop IVF. -HD per nephro. -Discussed with family at length re: current status, plan of care, prognosis, etc. (06/25) #Left lung PNA - likely aspiration #Acute hypoxic respiratory failure #GPC bacteremia Noted to be acutely hypoxic on early AM of 06/25, requiring bipap. -CT chest, CXR with left lung infiltrate. -Continue BiPAP. -ABG prn. -Pulmonology consulted. -ID consulted. -Vanc/zosyn (06/25 -) -f/u BCx for speciation, sensitivities. -repeat BCx. -f/u sputum Cx. #L1 vertebral fracture - likely old seen on imaging, likely old. -reassurance provided to family. #Leukocytosis Likely reactive vs. infectious. no fevers. UA neg. -monitor CBC for now. -liow threshold to start abx #Transaminitis ?from dehydration, abd exam benign. -continue to trend LFT's. #Type 2 NSTEMI likely demand in setting of renal failure. EKG wnl. -no need to trend. -cardiology consult. Time spent: 45 minutes of critical care time, including imaging, telemetry, ABG review, as well as taking care of the patient who is acutely decompensating with new renal failure requiring HD and acutely septic from likely aspiration PNA. Time of note doesn't reflect time of encounter. Subjective Date patient seen: Jun 26, 2019 Time patient seen: 14:00 ROS Limited/Unobtainable: Yes - uremic, unresponsive Allergies: Coded Allergies: No Known Allergies (Unverified , 06/24/19) Subjective patient remains unresponsive for interview. Spoke with family members at bedside and on the phone, updates provided re: current care plan ,prognosis, etc. Objective Last 24 Hour Vital Signs Date Time Temp Pulse Resp B/P (MAP) Pulse Ox O2 Delivery O2 Flow Rate FiO2 06/26/19 16:00 70 06/26/19 16:00 Bi-pap 06/26/19 12:32 104 33 100 70 06/26/19 12:00 70 06/26/19 12:00 Bi-pap 06/26/19 12:00 98.1 102 32 120/68 (85) 100 06/26/19 11:41 100 06/26/19 10:30 84 36 98 70 06/26/19 09:22 99 33 95 70 06/26/19 08:00 Bi-pap 06/26/19 08:00 98.2 98 16 137/63 (87) 97 06/26/19 07:37 98 06/26/19 07:20 97 Bi-Pap 70 06/26/19 07:20 94 37 97 70 06/26/19 07:20 70 06/26/19 05:28 108 37 95 60 06/26/19 04:00 100 06/26/19 04:00 Bi-pap 06/26/19 04:00 98.2 83 30 105/47 (66) 97 06/26/19 03:40 82 06/26/19 03:19 85 32 98 70 06/26/19 01:57 88 33 96 80 06/26/19 00:00 97.5 89 30 117/65 (82) 100 06/26/19 00:00 Bi-pap 06/26/19 00:00 88 06/25/19 23:41 88 33 97 100 06/25/19 22:31 100 06/25/19 21:45 93 27 97 100 06/25/19 21:17 93 Non-Rebreather 15.0 100 06/25/19 21:15 Non-Rebreather 15.0 100 06/25/19 21:13 92 26 93 Non-Rebreather 15.0 100 06/25/19 20:00 5.0 06/25/19 20:00 92 06/25/19 20:00 Nasal Cannula 5.0 Intake and Output 06/25/19 06/26/19 19:00 07:00 Intake Total 1800 ml 919 ml Output Total 150 ml 120 ml Balance 1650 ml 799 ml Intake IV Total 1800 ml 919 ml Output Urine Total 150 ml 120 ml # Bowel Movements 2 Laboratory Tests 06/25/19 17:30: Hepatitis B Surface Antigen Negative 06/25/19 20:13: White Blood Count 11.9H, Red Blood Count 3.33L, Hemoglobin 8.6L, Hematocrit 27.3L, Mean Corpuscular Volume 82, Mean Corpuscular Hemoglobin 25.9L, Mean Corpuscular Hemoglobin Concent 31.7L, Red Cell Distribution Width 12.7, Platelet Count 179, Mean Platelet Volume 7.4, Neutrophils (%) (Auto) 74.4, Lymphocytes (%) (Auto) 21.2, Monocytes (%) (Auto) 3.9, Eosinophils (%) (Auto) 0.0, Basophils (%) (Auto) 0.4, Sodium Level 142#, Potassium Level 3.4L, Chloride Level 105, Carbon Dioxide Level 22, Anion Gap 15, Blood Urea Nitrogen 108H, Creatinine 4.0H, Estimat Glomerular Filtration Rate 12.7, Glucose Level 156H, Lactic Acid Level 3.00H, Calcium Level 7.6L 06/25/19 21:38: Arterial Blood pH 7.469H, Arterial Blood Partial Pressure CO2 30.8L, Arterial Blood Partial Pressure O2 60.7L, Arterial Blood HCO3 21.9L, Arterial Blood Oxygen Saturation 90.5L, Arterial Blood Base Excess -1.3, Van Test Positive 06/25/19 23:15: Lactic Acid Level 2.20 06/25/19 23:31: Arterial Blood pH 7.480H, Arterial Blood Partial Pressure CO2 29.8L, Arterial Blood Partial Pressure O2 102.0H, Arterial Blood HCO3 21.8L, Arterial Blood Oxygen Saturation 97.1, Arterial Blood Base Excess -1.0, Van Test Positive 06/26/19 03:25: White Blood Count 8.3, Red Blood Count 3.64L, Hemoglobin 9.8L, Hematocrit 29.3L , Mean Corpuscular Volume 81, Mean Corpuscular Hemoglobin 26.9L, Mean Corpuscular Hemoglobin Concent 33.4, Red Cell Distribution Width 11.3L, Platelet Count 181, Mean Platelet Volume 8.1, Neutrophils (%) (Auto) 70.2, Lymphocytes (%) (Auto) 23.4, Monocytes (%) (Auto) 5.5, Eosinophils (%) (Auto) 0.2, Basophils (%) (Auto) 0.7, Sodium Level 140, Potassium Level 3.7, Chloride Level 104, Carbon Dioxide Level 22, Anion Gap 14, Blood Urea Nitrogen 111H, Creatinine 4.1H, Estimat Glomerular Filtration Rate 12.4, Glucose Level 120H, Calcium Level 7.6L, Total Bilirubin 0.9, Direct Bilirubin 0.1, Aspartate Amino Transf (AST/SGOT) 511H, Alanine Aminotransferase (ALT/SGPT) 138H, Alkaline Phosphatase 48, Troponin I 0.899H, Total Protein 5.4L, Albumin 2.9L, Globulin 2.5, Albumin/Globulin Ratio 1.2 06/26/19 03:50: Total Creatine Kinase > 20852R, Creatine Kinase MB 343.6H, Creatine Kinase MB Relative Index 0.0 06/26/19 08:34: Arterial Blood pH 7.502H, Arterial Blood Partial Pressure CO2 25.3L, Arterial Blood Partial Pressure O2 77.6, Arterial Blood HCO3 19.4L, Arterial Blood Oxygen Saturation 95.2, Arterial Blood Base Excess -2.6L, Van Test Positive Height (Feet): 5 Height (Inches): 4.00 Weight (Pounds): 115 General Appearance: no apparent distress, confused Neck: supple Cardiovascular: normal rate, regular rhythm Respiratory/Chest: lungs clear, normal breath sounds Abdomen: non tender, soft Neurologic: unresponsive René Rollins M.D. Jun 26, 2019 16:40
[2019-06-26 20:00] VITALS: BP 143/58
[2019-06-26] MEDS: Dyna-Hex 2% Top Sol 2oz TOPIC SCH (20:12)
[2019-06-27] VITALS: BP 129/52
[2019-06-27] MEDS: Pantoprazole 80 MG in NS 250 ML IV SCH ×3 (03:45→23:24)
[2019-06-27 04:00] VITALS: BP 138/64
[2019-06-27 04:47] LABS: HEMATOCRIT 28.2 % (37.0-47.0); HEMOGLOBIN 9.3 G/DL (12.0-16.0); MEAN CORPUSCULAR VOLUME 83 FL (80-99); PLATELET COUNT 157 K/UL (150-450); RED BLOOD COUNT 3.41 M/UL (4.20-5.40); RED CELL DISTRIBUTION WIDTH 11.7 % (11.6-14.8); WHITE BLOOD COUNT 19.4 K/UL (4.8-10.8)
[2019-06-27 05:13] LABS: ALANINE AMINOTRANSFERASE 126 U/L (12-78); ALBUMIN 2.5 G/DL (3.4-5.0); ALBUMIN/GLOBULIN RATIO 0.8 (1.0-2.7); ALKALINE PHOSPHATASE 52 U/L (46-116); ANION GAP 18 mmol/L (5-15); ASPARTATE AMINO TRANSFERASE 397 U/L (15-37); BILIRUBIN,DIRECT 0.3 MG/DL (0.0-0.3); BILIRUBIN,TOTAL 1.2 MG/DL (0.2-1.0); BLOOD UREA NITROGEN 134 mg/dL (7-18); CALCIUM 8.2 MG/DL (8.5-10.1); CARBON DIOXIDE 18 MMOL/L (21-32); CHLORIDE 104 MMOL/L (98-107); CREATININE 5.8 MG/DL (0.55-1.30); POTASSIUM 4.4 MMOL/L (3.5-5.1); SODIUM 140 MMOL/L (136-145)
[2019-06-27] MEDS: Zosyn 2.25 gm in D5W 55ml IV SCH ×3 (05:37→21:10)
[2019-06-27 08:14] VITALS: BP 107/60
--- NOTE | 2019-06-27 08:20 | Consultation ---
History of Present Illness General Date patient seen: Jun 27, 2019 Time patient seen: 08:16 Chief Complaint: Altered Level of Consciousness Present Illness HPI This is a 88-year-old female brought in by EMS after unwitnessed fall and altered level of consciousness. Was found down on the floor with her pressure sore stuck to the floor, unknown duration of being down. Hx limited by her mental status. Cardiology consulted for elevated troponin/Chest pain. EKG normal. Allergies: Coded Allergies: No Known Allergies (Unverified , 06/24/19) Medication History Scheduled Furosemide* (Lasix*), 20 MG ORAL TID, (Reported) Gabapentin* (Gabapentin*), 600 MG ORAL THREE TIMES A DAY, (Reported) Scheduled PRN Hydroxyzine HCl (Hydroxyzine HCl), 25 MG ORAL Q6HR PRN for Itching, (Reported) Oxycodone Hcl/Acetaminophen 10-325 Mg Tablet (Percocet 10-325 Mg Tablet*), 1 TAB ORAL Q6H PRN for For Pain, (Reported) Miscellaneous Medications [Unable To Obtain], (Reported) Patient History Healthcare decision maker Jami Palafox Resuscitation status Full Code Advanced Directive on File No Review of Systems Constitutional: Reports: no symptoms Eye: Reports: no symptoms ENT: Reports: no symptoms Respiratory: Reports: no symptoms Cardiovascular: Reports: no symptoms Gastrointestinal: Reports: no symptoms Genitourinary: Reports: no symptoms Musculoskeletal: Reports: no symptoms Skin: Reports: no symptoms Psychiatric: Reports: no symptoms Neurological: Reports: no symptoms Endocrine: Reports: no symptoms Hematologic/Lymphatic: Reports: no symptoms Physical Exam General Appearance: no apparent distress Lines, tubes and drains: peripheral, central line, dialysis access HEENT: normocephalic, atraumatic, anicteric, mucous membranes moist, PERRL, EOMI Neck: non-tender, normal alignment, supple, normal inspection Respiratory/Chest: chest wall non-tender, accessory muscle use, crackles/rales , rhonchi - bilaterally Cardiovascular/Chest: normal peripheral pulses, normal rate, regular rhythm Abdomen: normal bowel sounds, non tender, no organomegaly Extremities: normal range of motion, normal inspection, normal capillary refill 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, no motor/sensory deficits Last 24 Hour Vital Signs Date Time Temp Pulse Resp B/P (MAP) Pulse Ox O2 Delivery O2 Flow Rate FiO2 06/27/19 05:10 74 20 100 60 06/27/19 04:00 97.9 95 24 138/64 (88) 100 06/27/19 04:00 Bi-pap 06/27/19 04:00 60 06/27/19 03:34 97 06/27/19 03:05 76 20 100 60 06/27/19 01:10 86 23 100 60 06/27/19 00:00 Bi-pap 06/27/19 00:00 100.0 100 25 129/52 (77) 100 06/27/19 00:00 60 06/26/19 23:23 98 06/26/19 23:15 101 27 100 60 06/26/19 20:52 119 25 98 60 06/26/19 20:00 Bi-pap 06/26/19 20:00 98 06/26/19 20:00 97.9 100 21 143/58 (86) 100 06/26/19 20:00 60 06/26/19 19:15 89 27 94 60 06/26/19 19:15 94 Bi-Pap 60 06/26/19 17:40 65 06/26/19 17:12 97 25 98 60 06/26/19 16:00 70 06/26/19 16:00 99.0 104 31 135/65 (88) 100 06/26/19 16:00 Bi-pap 06/26/19 15:31 100 06/26/19 15:00 101 30 100 70 06/26/19 12:32 104 33 100 70 06/26/19 12:00 70 06/26/19 12:00 Bi-pap 06/26/19 12:00 98.1 102 32 120/68 (85) 100 06/26/19 11:41 100 06/26/19 10:30 84 36 98 70 06/26/19 09:22 99 33 95 70 Intake and Output 06/26/19 06/27/19 19:00 07:00 Intake Total 420.83 ml 410 ml Output Total 0 ml 30 ml Balance 420.83 ml 380 ml Intake Oral 0 ml IV Total 420.83 ml 410 ml Output Urine Total 0 ml 30 ml # Bowel Movements 2 2 Laboratory Tests Test 06/26/19 08:34 06/27/19 03:35 06/27/19 04:00 Arterial Blood pH 7.502 (7.350-7.450) Arterial Blood Partial Pressure CO2 25.3 mmHg (35.0-45.0) L Arterial Blood Partial Pressure O2 77.6 mmHg (75.0-100.0) Arterial Blood HCO3 19.4 mmol/L (22.0-26.0) L Arterial Blood Oxygen Saturation 95.2 % (95-100) Arterial Blood Base Excess -2.6 (-2-2) L Van Test Positive Sodium Level 140 MMOL/L (136-145) Potassium Level 4.4 MMOL/L (3.5-5.1) Chloride Level 104 MMOL/L (98-107) Carbon Dioxide Level 18 MMOL/L (21-32) L Anion Gap 18 mmol/L (5-15) H Blood Urea Nitrogen 134 mg/dL (7-18) H Creatinine 5.8 MG/DL (0.55-1.30) H Estimat Glomerular Filtration Rate 8.4 mL/min (>60) Glucose Level 89 MG/DL (74-106) Calcium Level 8.2 MG/DL (8.5-10.1) L Phosphorus Level 6.7 MG/DL (2.5-4.9) H Total Bilirubin 1.2 MG/DL (0.2-1.0) H Direct Bilirubin 0.3 MG/DL (0.0-0.3) Aspartate Amino Transf (AST/SGOT) 397 U/L (15-37) H Alanine Aminotransferase (ALT/SGPT) 126 U/L (12-78) H Alkaline Phosphatase 52 U/L (46-116) Total Protein 5.6 G/DL (6.4-8.2) L Albumin 2.5 G/DL (3.4-5.0) L Globulin 3.1 g/dL Albumin/Globulin Ratio 0.8 (1.0-2.7) L Random Vancomycin Level 12.6 ug/mL White Blood Count 19.4 K/UL (4.8-10.8) #H Red Blood Count 3.41 M/UL (4.20-5.40) L Hemoglobin 9.3 G/DL (12.0-16.0) L Hematocrit 28.2 % (37.0-47.0) L Mean Corpuscular Volume 83 FL (80-99) Mean Corpuscular Hemoglobin 27.4 PG (27.0-31.0) Mean Corpuscular Hemoglobin Concent 33.1 G/DL (32.0-36.0) Red Cell Distribution Width 11.7 % (11.6-14.8) Platelet Count 157 K/UL (150-450) Mean Platelet Volume 8.1 FL (6.5-10.1) Neutrophils (%) (Auto) % (45.0-75.0) Lymphocytes (%) (Auto) % (20.0-45.0) Monocytes (%) (Auto) % (1.0-10.0) Eosinophils (%) (Auto) % (0.0-3.0) Basophils (%) (Auto) % (0.0-2.0) Neutrophils % (Manual) Pending Lymphocytes % (Manual) Pending Platelet Estimate Pending Platelet Morphology Pending Height (Feet): 5 Height (Inches): 4.00 Weight (Pounds): 115 Medications Current Medications Medications (Trade) Dose Ordered Sig/Joan Route PRN Reason Start Time Stop Time Status Last Admin Dose Admin Acetaminophen (Tylenol) 650 mg Q4H PRN ORAL Mild Pain (Pain Scale 1-3) 06/24/19 19:52 07/24/19 19:51 Acetylcysteine (Mucomyst) 100 mg Q4HRT PRN HHN Shortness of Breath 06/25/19 23:45 07/25/19 22:59 Albuterol Sulfate (Proventil) 2.5 mg Q4HR PRN HHN Shortness of Breath 06/25/19 23:45 06/30/19 20:59 Chlorhexidine Gluconate (Cari-Hex 2%) 1 applic DAILY@1999 TOPIC 06/26/19 20:00 07/26/19 19:59 06/26/19 20:12 Dextrose (Dextrose 50%) 25 ml Q30M PRN IV Hypoglycemia 06/24/19 19:52 07/24/19 19:51 Dextrose (Dextrose 50%) 50 ml Q30M PRN IV Hypoglycemia 06/24/19 19:52 07/24/19 19:51 Diphenhydramine HCl (Benadryl) 25 mg Q6H PRN ORAL Itching/Pruritis 06/24/19 19:52 07/24/19 19:51 Hydromorphone HCl (Dilaudid) 0.5 mg Q3H PRN IVP Pain 4-10 06/25/19 14:30 07/02/19 14:29 Iohexol (OMNIPAQUE-300 100ml) 100 ml ONCE INJ 06/26/19 10:00 07/26/19 16:00 Ondansetron HCl (Zofran) 4 mg Q6H PRN IVP Nausea & Vomiting 06/24/19 19:52 07/24/19 19:51 Pantoprazole 80 mg/Sodium Chloride 250 ml @ 25 mls/hr Q10H IV 06/25/19 22:00 07/25/19 21:59 06/27/19 03:45 Piperacillin Sod/ Tazobactam Sod 2.25 gm/Dextrose 55 ml @ 110 mls/hr Q8HR IV 06/25/19 22:00 06/30/19 21:59 06/27/19 05:37 Vancomycin HCl (Vanco rx to dose) 1 ea DAILY PRN MISC Per rx protocol 06/25/19 21:00 07/25/19 20:59 Vancomycin HCl 1 gm/Sodium Chloride 275 ml @ 183.708 mls/hr ONCE IVPB 06/27/19 18:00 06/27/19 20:00 Assessment/Plan Status: stable Assessment/Plan: Assessment Elevated troponin Syncope. Elevated LFT KAREN/CKD Rhabdomyolysis Plan Trend troponin Monitor on telemetry Echocardiogram Stress test prior to discharge Hold heparin Melchor Cerna MD Jun 27, 2019 08:20
--- NOTE | 2019-06-27 09:10 | Nephrology Progress Note ---
Assessment/Plan Plan #acute renal failure on possible CKD- due to rhabdo- UA with + RBC- concerns for developing ATN #Uremia #complete opacification of the left hemithorax- likely aspiration pneumonia #lactic acidosis #Hypernatremia- improved #AMS #elevated liver enzyme - HD today - zero UF - no IVF - on bipap - pulmonary eval - renal US-> No obstructive nephropathy. - monitor liver enzymes - continue with abx- on vanco and zosyn - cardiology eval noted - stress test prior to DC Subjective Subjective on bipap BP stable remains oliguric plan for HD today CT chest: Extensive airspace consolidation in the left lung involving the left perihilar, upper lobe and left lower lobe. Findings suspicious for pneumonia, especially aspiration given the abrupt onset. Please correlate clinically. Partial atelectasis of the left lower lobe also noted Objective Objective Last 24 Hour Vital Signs Date Time Temp Pulse Resp B/P (MAP) Pulse Ox O2 Delivery O2 Flow Rate FiO2 06/27/19 08:14 99.5 100 18 107/60 (76) 100 06/27/19 05:10 74 20 100 60 06/27/19 04:00 97.9 95 24 138/64 (88) 100 06/27/19 04:00 Bi-pap 06/27/19 04:00 60 06/27/19 03:34 97 06/27/19 03:05 76 20 100 60 06/27/19 01:10 86 23 100 60 06/27/19 00:00 Bi-pap 06/27/19 00:00 100.0 100 25 129/52 (77) 100 06/27/19 00:00 60 06/26/19 23:23 98 06/26/19 23:15 101 27 100 60 06/26/19 20:52 119 25 98 60 06/26/19 20:00 Bi-pap 06/26/19 20:00 98 06/26/19 20:00 97.9 100 21 143/58 (86) 100 06/26/19 20:00 60 06/26/19 19:15 89 27 94 60 06/26/19 19:15 94 Bi-Pap 60 06/26/19 17:40 65 06/26/19 17:12 97 25 98 60 06/26/19 16:00 70 06/26/19 16:00 99.0 104 31 135/65 (88) 100 06/26/19 16:00 Bi-pap 06/26/19 15:31 100 06/26/19 15:00 101 30 100 70 06/26/19 12:32 104 33 100 70 06/26/19 12:00 70 06/26/19 12:00 Bi-pap 06/26/19 12:00 98.1 102 32 120/68 (85) 100 06/26/19 11:41 100 06/26/19 10:30 84 36 98 70 06/26/19 09:22 99 33 95 70 Intake and Output 06/26/19 06/27/19 19:00 07:00 Intake Total 420.83 ml 410 ml Output Total 0 ml 30 ml Balance 420.83 ml 380 ml Intake Oral 0 ml IV Total 420.83 ml 410 ml Output Urine Total 0 ml 30 ml # Bowel Movements 2 2 Laboratory Tests 06/27/19 03:35: Sodium Level 140, Potassium Level 4.4, Chloride Level 104, Carbon Dioxide Level 18L, Anion Gap 18H, Blood Urea Nitrogen 134H, Creatinine 5.8H, Estimat Glomerular Filtration Rate 8.4, Glucose Level 89, Calcium Level 8.2L, Phosphorus Level 6.7H, Total Bilirubin 1.2H, Direct Bilirubin 0.3, Aspartate Amino Transf (AST/SGOT) 397H, Alanine Aminotransferase (ALT/SGPT) 126H, Alkaline Phosphatase 52, Troponin I [Pending], Total Protein 5.6L, Albumin 2.5L , Globulin 3.1, Albumin/Globulin Ratio 0.8L, Random Vancomycin Level 12.6 06/27/19 04:00: White Blood Count 19.4#H, Red Blood Count 3.41L, Hemoglobin 9.3L, Hematocrit 28.2L, Mean Corpuscular Volume 83, Mean Corpuscular Hemoglobin 27.4, Mean Corpuscular Hemoglobin Concent 33.1, Red Cell Distribution Width 11.7, Platelet Count 157, Mean Platelet Volume 8.1, Neutrophils (%) (Auto) , Lymphocytes (%) ( Auto) , Monocytes (%) (Auto) , Eosinophils (%) (Auto) , Basophils (%) (Auto) , Neutrophils % (Manual) [Pending], Lymphocytes % (Manual) [Pending], Platelet Estimate [Pending], Platelet Morphology [Pending] Height (Feet): 5 Height (Inches): 4.00 Weight (Pounds): 115 Objective General Appearance: lethargic, confused, on bipap Lines, tubes and drains: peripheral HEENT: normocephalic, atraumatic Neck: non-tender Respiratory/Chest: minimal breath sounds on the left Cardiovascular/Chest: normal peripheral pulses, normal rate, regular rhythm, regularly irregular Abdomen: non tender, soft Rory Oconnor M.D. Jun 27, 2019 09:10
--- NOTE | 2019-06-27 09:38 | Surgery Progress Note ---
Surgery Progress Note Subjective Procedure Performed Left femoral temporary hemodialysis catheter insertion Additional Comments no acute events comfortable stable family at bedside labs noted Objective Last 24 Hour Vital Signs Date Time Temp Pulse Resp B/P (MAP) Pulse Ox O2 Delivery O2 Flow Rate FiO2 06/27/19 08:14 99.5 100 18 107/60 (76) 100 06/27/19 05:10 74 20 100 60 06/27/19 04:00 97.9 95 24 138/64 (88) 100 06/27/19 04:00 Bi-pap 06/27/19 04:00 60 06/27/19 03:34 97 06/27/19 03:05 76 20 100 60 06/27/19 01:10 86 23 100 60 06/27/19 00:00 Bi-pap 06/27/19 00:00 100.0 100 25 129/52 (77) 100 06/27/19 00:00 60 06/26/19 23:23 98 06/26/19 23:15 101 27 100 60 06/26/19 20:52 119 25 98 60 06/26/19 20:00 Bi-pap 06/26/19 20:00 98 06/26/19 20:00 97.9 100 21 143/58 (86) 100 06/26/19 20:00 60 06/26/19 19:15 89 27 94 60 06/26/19 19:15 94 Bi-Pap 60 06/26/19 17:40 65 06/26/19 17:12 97 25 98 60 06/26/19 16:00 70 06/26/19 16:00 99.0 104 31 135/65 (88) 100 06/26/19 16:00 Bi-pap 06/26/19 15:31 100 06/26/19 15:00 101 30 100 70 06/26/19 12:32 104 33 100 70 06/26/19 12:00 70 06/26/19 12:00 Bi-pap 06/26/19 12:00 98.1 102 32 120/68 (85) 100 06/26/19 11:41 100 06/26/19 10:30 84 36 98 70 I&O Intake and Output 06/26/19 06/27/19 19:00 07:00 Intake Total 420.83 ml 410 ml Output Total 0 ml 30 ml Balance 420.83 ml 380 ml Intake Oral 0 ml IV Total 420.83 ml 410 ml Output Urine Total 0 ml 30 ml # Bowel Movements 2 2 Dressing: other Wound: other Drains: other Cardiovascular: RSR Respiratory: decreased breath sounds Abdomen: soft, present bowel sounds Extremities: no cyanosis Laboratory Tests Test 06/27/19 03:35 06/27/19 04:00 Sodium Level 140 MMOL/L (136-145) Potassium Level 4.4 MMOL/L (3.5-5.1) Chloride Level 104 MMOL/L (98-107) Carbon Dioxide Level 18 MMOL/L (21-32) L Anion Gap 18 mmol/L (5-15) H Blood Urea Nitrogen 134 mg/dL (7-18) H Creatinine 5.8 MG/DL (0.55-1.30) H Estimat Glomerular Filtration Rate 8.4 mL/min (>60) Glucose Level 89 MG/DL (74-106) Calcium Level 8.2 MG/DL (8.5-10.1) L Phosphorus Level 6.7 MG/DL (2.5-4.9) H Total Bilirubin 1.2 MG/DL (0.2-1.0) H Direct Bilirubin 0.3 MG/DL (0.0-0.3) Aspartate Amino Transf (AST/SGOT) 397 U/L (15-37) H Alanine Aminotransferase (ALT/SGPT) 126 U/L (12-78) H Alkaline Phosphatase 52 U/L (46-116) Troponin I 1.151 ng/mL (0.000-0.056) Total Protein 5.6 G/DL (6.4-8.2) L Albumin 2.5 G/DL (3.4-5.0) L Globulin 3.1 g/dL Albumin/Globulin Ratio 0.8 (1.0-2.7) L Random Vancomycin Level 12.6 ug/mL White Blood Count 19.4 K/UL (4.8-10.8) #H Red Blood Count 3.41 M/UL (4.20-5.40) L Hemoglobin 9.3 G/DL (12.0-16.0) L Hematocrit 28.2 % (37.0-47.0) L Mean Corpuscular Volume 83 FL (80-99) Mean Corpuscular Hemoglobin 27.4 PG (27.0-31.0) Mean Corpuscular Hemoglobin Concent 33.1 G/DL (32.0-36.0) Red Cell Distribution Width 11.7 % (11.6-14.8) Platelet Count 157 K/UL (150-450) Mean Platelet Volume 8.1 FL (6.5-10.1) Neutrophils (%) (Auto) % (45.0-75.0) Lymphocytes (%) (Auto) % (20.0-45.0) Monocytes (%) (Auto) % (1.0-10.0) Eosinophils (%) (Auto) % (0.0-3.0) Basophils (%) (Auto) % (0.0-2.0) Neutrophils % (Manual) Pending Lymphocytes % (Manual) Pending Platelet Estimate Pending Platelet Morphology Pending Plan Problems: (1) Fall Assessment & Plan: 88 year old female s/p fall now with renal insufficiency requiring HD spoke with family. she has known CKD multiple decubitus ulcers from being down malnutrition line placed see documentation trend labs abx HD thank you (2) Altered level of consciousness (3) Fracture of lumbar spine Assessment & Plan: Lungs: There is increased density at the lung bases likely atelectasis. Aorta is moderately calcified. There is a small hiatal hernia.. Liver: Grossly unremarkable. There is artifact limiting evaluation in addition to the fact that no IV or oral contrast was given for this examination. Gallbladder/biliary system: Grossly unremarkable. Spleen: Unremarkable Pancreas: In the area of the pancreatic tail there is a 1.6 cm nodular density which may be cystic. Further evaluation is recommended. Kidneys/Bladder: Vascular calcifications are quite extensive and extend to the hilum of both kidneys. Evaluation for punctate nonobstructive stones is limited in this setting but no definite stones seen. There is no hydronephrosis. Extensive breathing motion limiting evaluation.. Adrenal glands: Unremarkable Bowel: Patient's prior partial bowel resection in the right lower abdomen with anastomotic sutures noted. There is no evidence of a bowel obstruction or inflammatory changes. Appendix is not seen definitely but there are no signs of appendicitis. A few diverticula are noted within the colon. Aorta/IVC: There is a severe calcification of aorta and multiple branches of the aorta. Peritoneum: There is no free fluid. Bones: Bones are diffusely osteopenic. Multiple compression fracture deformities of several vertebra noted including lower thoracic vertebra and L1. There is narrowing of intervertebral discs and accompanying endplate osteophyte formation. Hypertrophied facet joints also demonstrated. Scoliosis of the lower thoracic spine convex to the right and left convex lumbar scoliosis noted. IMPRESSION: No acute findings appreciated. Study limited by the lack of intravenous oral contrast as well as extensive motion artifact. 1.6 cm probable cystic lesion in the pancreatic tail. This requires further evaluation with the contrast CT or MR. Status post previous partial bowel resection. 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 Degenerative changes as described above. (4) Rhabdomyolysis (5) KAREN (acute kidney injury) (6) Decubitus skin ulcer Assessment & Plan: Pt presented on admission with multiple pressure injuries. Pt's niece Sarah stated pt lives alone and found pt laying on her R side on floor in patient's home.Niece believes pt has been laying on floor for approx 5 days. DTPI noted to R cheek. Base of wound is purple with marginal erythema along borders.(L)1.2cm x (W)1.6cm. Unstageable pressure injury R shoulder. Base of wound is 100% necrotic with marginal erythema along borders.(L)4.8cm x (W).3.5cm . DTPI R humerus. Base of wound is fluctuant and maroon in colour with surrounding erythema. (L)10.6cm x (W)3.1cm. DTPI R elbow.Base of wound is indurated with scattered areas that are purple in colour. An area of fluctuance in center. Marginal erythema along borders.(L) 5.3cm x (W)10.4cm. Partially opened Sacral DTPI. Base of wound is purple with surrounding erythema. Partial open wound marco a cleft that is corby and moist.(L)5.3cm x (W) 4.5cm.NO odor or exudate noted. Non-blanching erythema periwound. DTPI L ischium . Base of wound is purple and indurated.(L)6cm x (W)7.5cm. Unstageable pressure injury R hip. Base of wound is 75% necrotic, 25% mixed erythema and slough. Borders are moist,soft with scattered areas that are black. Periwound is dusky and indurated.No odor or exudate noted. DTPI at posterior and medial aspect of L heel. Base of wound is maroon and fluctuant(L)4cm x (W)7cm. Unstageable pressure injury L Hallux. Base of wound is 100% necrotic but soft. Borders are erythematous. Periwound without induration or fluctuance.(L)2.5cm x (W)3cm. DTPI medial L malleolus. Base of wound fluctuant and maroon in colour.(L) 0.3cm x (W)1.2cm. DTPI medial L malleolus. Base of wound fluctuant and maroon in colour with Marginal erythema along borders.(L)0.3cm x (W)1.2cm. Intact blood filled blisters noted to L 1st Metatarsal laterally and head of metatarsal. Intact blood filled blisters noted to heads of L 2nd and L 3rd metatarsals. DTPI noted to posterior and lateral R Heel. Posterior R heel is maroon in colour and fluctuant at base. Laterally ,R heel is black and fluctuant at base.Periwound is boggy and non-blanchable.(L)7cm x (W)8cm. Unstageable pressure injury lateral R malleolus. Base of wound is 100% necrotic and dry.Marginal erythema along borders.Periwound is fluctuant and erythematous( L)1.2cm x (W)1.5cm. DTPI distal/lateral R foot. Base of wound is fluctuant and maroon in colour.(L) 1.3cm x (W)1.7cm. DTPI lateral R 5th metatarsal. Base of wound is maroon and fluctuant with marginal erythema along borders .(L)0.7cm x (W)1.1cm Tx.Plan: Cleanse Wound R shoulder with Saline. Apply Therahoney. Apply Cavilon Skin barrier periwound. Cover with Optifoam drsg every 3 days and prn. Cleanse R hip wound with Saline. Apply Therahoney with 4x4 Gauze. Apply Moisture Barrier Paste periwound.Cover with Optifoam drsg. Daily and prn. Apply Moisture Barrier Paste to Sacral wound and L Ischium. Cover each wound with Optifoam drsg every 3 days and prn. Apply Betadine to R humerus and R elbow . Cover each wound with Optifoam drsg. Change every 3 days and prn. Apply Betadine to wounds R heel, R malleolus and R foot . Cover each wound with Optifoam drsg every 3 days and prn. Apply Betadine to wounds L heel ,L medial malleolus and L foot. Cover each wound with Optifoam drsgs every 3 Days and prn. Air Fluidized Mattress. Reposition at least every 2hours or as tolerated. Place Pillow between knees. Off-load heels with pillow. Anshul Nava Jun 27, 2019 09:38
[2019-06-27] MEDS: Omnipaque-300 100ml vial INJ SCH (10:00)
--- NOTE | 2019-06-27 11:08 | General Progress Note ---
Assessment/Plan Problem List: (1) Fall ICD Codes: W19.XXXA - Unspecified fall, initial encounter SNOMED: 7742098, 828705113 (2) Altered level of consciousness ICD Codes: R40.4 - Transient alteration of awareness SNOMED: 6442797 (3) Fracture of lumbar spine ICD Codes: S32.009A - Unspecified fracture of unspecified lumbar vertebra, initial encounter for closed fracture SNOMED: 916248993 (4) Rhabdomyolysis ICD Codes: M62.82 - Rhabdomyolysis SNOMED: 484912423 (5) KAREN (acute kidney injury) ICD Codes: N17.9 - Acute kidney failure, unspecified SNOMED: 3418547, 33964387 Status: stable Assessment/Plan: #Rhabdomyolosis #KAREN #Uremic encephaloapathy #Anion gap metabolic acidosis #Lactic acidosis -resolved #Pressure wounds. -Nephrology consulted. -General surgery consulted for wound care, central line insertion. -stop IVF. -HD per nephro. -Discussed with family at length re: current status, plan of care, prognosis, etc. (06/25) #Left lung PNA - likely aspiration #Acute hypoxic respiratory failure #GPC bacteremia Noted to be acutely hypoxic on early AM of 06/25, requiring bipap. -CT chest, CXR with left lung infiltrate. -Continue BiPAP. -ABG prn. -Pulmonology consulted. -ID consulted. -Vanc/zosyn (06/25 -) -f/u BCx for speciation, sensitivities. -repeat BCx. -f/u sputum Cx. #L1 vertebral fracture - likely old seen on imaging, likely old. -reassurance provided to family. #Transaminitis ?from dehydration, abd exam benign. -continue to trend LFT's. #Type 2 NSTEMI likely demand in setting of renal failure. EKG wnl. -no need to trend. -cardiology consult. Time spent: 35 mins, >50% on counseling and coordination of care. Time of note doesn't reflect time of encounter. Subjective Date patient seen: Jun 27, 2019 Time patient seen: 12:00 ROS Limited/Unobtainable: Yes Constitutional: Denies: no symptoms, chills, diaphoresis, fever, malaise, weakness, other HEENT: Denies: no symptoms, eye pain, blurred vision, tearing, double vision, ear pain, ear discharge, nose pain, nose congestion, throat pain, throat swelling, mouth pain, mouth swelling, other Cardiovascular: Denies: no symptoms, chest pain, edema, irregular heart rate, lightheadedness, palpitations, syncope, other Respiratory: Denies: no symptoms, cough, orthopnea, shortness of breath, SOB with excertion, SOB at rest, sputum, stridor, wheezing, other Gastrointestinal/Abdominal: Denies: no symptoms, abdomen distended, abdominal pain, black stools, tarry stools, blood in stool, constipated, diarrhea, difficulty swallowing, nausea, poor appetite, poor fluid intake, rectal bleeding , vomiting, other Genitourinary: Denies: no symptoms, burning, discharge, frequency, flank pain, hematuria, incontinence, pain, urgency, other Neurologic/Psychiatric: Denies: no symptoms, anxiety, depressed, emotional problems, headache, numbness, paresthesia, pre-existing deficit, seizure, tingling, tremors, weakness, other Endocrine: Denies: no symptoms, excessive sweating, flushing, intolerance to cold, intolerance to heat, increased hunger, increased thirst, increased urine, unexplained weight gain, unexplained weight loss, other Hematologic/Lymphatic: Denies: no symptoms, anemia, easy bleeding, easy bruising, other Allergies: Coded Allergies: No Known Allergies (Unverified , 06/24/19) Subjective Remains on bipap, unresponsive but withdrawing from pain. -family member updated at bedside. Objective Last 24 Hour Vital Signs Date Time Temp Pulse Resp B/P (MAP) Pulse Ox O2 Delivery O2 Flow Rate FiO2 06/27/19 09:10 84 22 100 60 06/27/19 08:14 99.5 100 18 107/60 (76) 100 06/27/19 08:00 60 06/27/19 08:00 Bi-pap 06/27/19 07:30 79 22 100 60 06/27/19 07:30 100 Bi-Pap 60 06/27/19 05:10 74 20 100 60 06/27/19 04:00 97.9 95 24 138/64 (88) 100 06/27/19 04:00 Bi-pap 06/27/19 04:00 60 06/27/19 03:34 97 06/27/19 03:05 76 20 100 60 06/27/19 01:10 86 23 100 60 06/27/19 00:00 Bi-pap 06/27/19 00:00 100.0 100 25 129/52 (77) 100 06/27/19 00:00 60 06/26/19 23:23 98 06/26/19 23:15 101 27 100 60 06/26/19 20:52 119 25 98 60 06/26/19 20:00 Bi-pap 06/26/19 20:00 98 06/26/19 20:00 97.9 100 21 143/58 (86) 100 06/26/19 20:00 60 06/26/19 19:15 89 27 94 60 06/26/19 19:15 94 Bi-Pap 60 06/26/19 17:40 65 06/26/19 17:12 97 25 98 60 06/26/19 16:00 70 06/26/19 16:00 99.0 104 31 135/65 (88) 100 06/26/19 16:00 Bi-pap 06/26/19 15:31 100 06/26/19 15:00 101 30 100 70 06/26/19 12:32 104 33 100 70 06/26/19 12:00 70 06/26/19 12:00 Bi-pap 06/26/19 12:00 98.1 102 32 120/68 (85) 100 06/26/19 11:41 100 Intake and Output 06/26/19 06/27/19 19:00 07:00 Intake Total 420.83 ml 410 ml Output Total 0 ml 30 ml Balance 420.83 ml 380 ml Intake Oral 0 ml IV Total 420.83 ml 410 ml Output Urine Total 0 ml 30 ml # Bowel Movements 2 2 Laboratory Tests 06/27/19 03:35: Sodium Level 140, Potassium Level 4.4, Chloride Level 104, Carbon Dioxide Level 18L, Anion Gap 18H, Blood Urea Nitrogen 134H, Creatinine 5.8H, Estimat Glomerular Filtration Rate 8.4, Glucose Level 89, Calcium Level 8.2L, Phosphorus Level 6.7H, Total Bilirubin 1.2H, Direct Bilirubin 0.3, Aspartate Amino Transf (AST/SGOT) 397H, Alanine Aminotransferase (ALT/SGPT) 126H, Alkaline Phosphatase 52, Troponin I 1.151H, Total Protein 5.6L, Albumin 2.5L, Globulin 3.1, Albumin/Globulin Ratio 0.8L, Random Vancomycin Level 12.6 06/27/19 04:00: White Blood Count 19.4#H, Red Blood Count 3.41L, Hemoglobin 9.3L, Hematocrit 28.2L, Mean Corpuscular Volume 83, Mean Corpuscular Hemoglobin 27.4, Mean Corpuscular Hemoglobin Concent 33.1, Red Cell Distribution Width 11.7, Platelet Count 157, Mean Platelet Volume 8.1, Neutrophils (%) (Auto) , Lymphocytes (%) ( Auto) , Monocytes (%) (Auto) , Eosinophils (%) (Auto) , Basophils (%) (Auto) , Differential Total Cells Counted 100, Neutrophils % (Manual) 85H, Lymphocytes % (Manual) 11L, Monocytes % (Manual) 4, Eosinophils % (Manual) 0, Basophils % ( Manual) 0, Band Neutrophils 0, Nucleated Red Blood Cells 1, Platelet Estimate Adequate, Platelet Morphology Normal, Hypochromasia 2+, Anisocytosis 1+ Height (Feet): 5 Height (Inches): 4.00 Weight (Pounds): 115 General Appearance: no apparent distress, lethargic, confused Neck: supple Cardiovascular: normal rate, regular rhythm Respiratory/Chest: lungs clear, normal breath sounds Abdomen: non tender, soft René Rollins M.D. Jun 27, 2019 11:08
[2019-06-27 12:00] VITALS: BP 134/60
--- NOTE | 2019-06-27 15:30 | Consultation ---
DATE OF CONSULTATION: 06/27/2019 HISTORY OF PRESENT ILLNESS: This is 88-year-old female who was brought into the hospital after an unwitnessed fall. The patient was found to have altered level of consciousness. She was not hypoglycemic; however, she was found on the floor. The patient noted to have pressure sores on the right side of her body. The patient was seen and admitted the hospital. In the last 24 hours, she has had a femoral dialysis catheter placed and plans noted for hemodialysis. Home medications include Lasix and Neurontin. The patient unable to provide any further history. Relative at bedside is unable to provide further history. Currently, the patient is on a BiPAP. REVIEW OF SYSTEMS: Not obtainable. PAST HISTORY: Not known. PHYSICAL EXAMINATION: GENERAL: Reveals elderly female. BiPAP is in place. VITAL SIGNS: Blood pressure is 107/60, heart rate 100, respirations 22, T-max 99.5, O2 sats 100% on 60% FiO2 with BiPAP in place. HEENT: Unremarkable. LUNGS: Clear breath sounds bilaterally. HEART: Normal heart sounds. ABDOMEN: Soft. LABORATORY DATA: Lab testing shows white count 19,000, hemoglobin 9.3, platelet count is 157. Chemistry showed creatinine of 5.8. Troponin 0.8. ABG, pH 7.50, pCO2 25, pCO2 76. IMAGING STUDIES: Chest CT with extensive bilateral pneumonia more on the left than the right. There is also evidence of pulmonary edema. IMPRESSION: 1. Extensive left lung pneumonia. 2. Pulmonary edema. DISCUSSION: The patient is on broad-spectrum antibiotics. She needs dialysis. She needs BiPAP, which I will continue, current settings are adequate. We will follow carefully. Discussed family at bedside. Prognosis is grave. Abrahan Samaniego M.D. DR: Gale JOB#: [id number] CC:
[2019-06-27 16:00] VITALS: BP 108/35
--- NOTE | 2019-06-27 17:21 | Infectious Diseases Prog Note ---
Assessment/Plan Assessment/Plan Full consult to follow: A) 1) pneumonia, streptococcus bacteremia, sepsis, sob, renal failure/hd, leukocytosis, fevers 2) pmh noted 3) allergies - nkda P) 1) zosyn plus vancomycin 2) check cultures, labs and chest x-ray 3) check echo 4) will f/u Subjective Constitutional: Reports: fever HEENT: Reports: congestion Respiratory: Reports: shortness of breath Gastrointestinal/Abdominal: Denies: nausea, diarrhea Genitourinary: Reports: other - + hargrove Allergies: Coded Allergies: No Known Allergies (Unverified , 06/24/19) Objective Vital Signs Last 24 Hour Vital Signs Date Time Temp Pulse Resp B/P (MAP) Pulse Ox O2 Delivery O2 Flow Rate FiO2 06/27/19 16:00 60 06/27/19 16:00 98.2 100 20 108/35 (59) 100 06/27/19 16:00 Bi-pap 06/27/19 12:00 60 06/27/19 12:00 98.2 83 17 134/60 (84) 100 06/27/19 12:00 Bi-pap 06/27/19 11:33 108 06/27/19 09:10 84 22 100 60 06/27/19 08:14 99.5 100 18 107/60 (76) 100 06/27/19 08:00 60 06/27/19 08:00 102 06/27/19 08:00 Bi-pap 06/27/19 07:30 79 22 100 60 06/27/19 07:30 100 Bi-Pap 60 06/27/19 05:10 74 20 100 60 06/27/19 04:00 97.9 95 24 138/64 (88) 100 06/27/19 04:00 Bi-pap 06/27/19 04:00 60 06/27/19 03:34 97 06/27/19 03:05 76 20 100 60 06/27/19 01:10 86 23 100 60 06/27/19 00:00 Bi-pap 06/27/19 00:00 100.0 100 25 129/52 (77) 100 06/27/19 00:00 60 06/26/19 23:23 98 06/26/19 23:15 101 27 100 60 06/26/19 20:52 119 25 98 60 06/26/19 20:00 Bi-pap 06/26/19 20:00 98 06/26/19 20:00 97.9 100 21 143/58 (86) 100 06/26/19 20:00 60 06/26/19 19:15 89 27 94 60 06/26/19 19:15 94 Bi-Pap 60 06/26/19 17:40 65 Height (Feet): 5 Height (Inches): 4.00 Weight (Pounds): 115 General Appearance: other - sob HEENT: normocephalic, atraumatic, anicteric Respiratory/Chest: crackles/rales, rhonchi - bilaterally Cardiovascular: normal rate, regular rhythm Abdomen: normal bowel sounds, soft, non tender, no organomegaly Genitourinary: other - + hargrove Microbiology Date/Time Source Procedure Growth Status 06/24/19 18:00 Blood Blood Culture - Preliminary Strep Species, Alpha Hemolytic Resulted 06/24/19 17:50 Blood Blood Culture - Preliminary Strep Species, Alpha Hemolytic Resulted Laboratory Tests Test 06/27/19 03:35 06/27/19 04:00 Sodium Level 140 MMOL/L (136-145) Potassium Level 4.4 MMOL/L (3.5-5.1) Chloride Level 104 MMOL/L (98-107) Carbon Dioxide Level 18 MMOL/L (21-32) L Anion Gap 18 mmol/L (5-15) H Blood Urea Nitrogen 134 mg/dL (7-18) H Creatinine 5.8 MG/DL (0.55-1.30) H Estimat Glomerular Filtration Rate 8.4 mL/min (>60) Glucose Level 89 MG/DL (74-106) Calcium Level 8.2 MG/DL (8.5-10.1) L Phosphorus Level 6.7 MG/DL (2.5-4.9) H Total Bilirubin 1.2 MG/DL (0.2-1.0) H Direct Bilirubin 0.3 MG/DL (0.0-0.3) Aspartate Amino Transf (AST/SGOT) 397 U/L (15-37) H Alanine Aminotransferase (ALT/SGPT) 126 U/L (12-78) H Alkaline Phosphatase 52 U/L (46-116) Troponin I 1.151 ng/mL (0.000-0.056) Total Protein 5.6 G/DL (6.4-8.2) L Albumin 2.5 G/DL (3.4-5.0) L Globulin 3.1 g/dL Albumin/Globulin Ratio 0.8 (1.0-2.7) L Random Vancomycin Level 12.6 ug/mL White Blood Count 19.4 K/UL (4.8-10.8) #H Red Blood Count 3.41 M/UL (4.20-5.40) L Hemoglobin 9.3 G/DL (12.0-16.0) L Hematocrit 28.2 % (37.0-47.0) L Mean Corpuscular Volume 83 FL (80-99) Mean Corpuscular Hemoglobin 27.4 PG (27.0-31.0) Mean Corpuscular Hemoglobin Concent 33.1 G/DL (32.0-36.0) Red Cell Distribution Width 11.7 % (11.6-14.8) Platelet Count 157 K/UL (150-450) Mean Platelet Volume 8.1 FL (6.5-10.1) Neutrophils (%) (Auto) % (45.0-75.0) Lymphocytes (%) (Auto) % (20.0-45.0) Monocytes (%) (Auto) % (1.0-10.0) Eosinophils (%) (Auto) % (0.0-3.0) Basophils (%) (Auto) % (0.0-2.0) Differential Total Cells Counted 100 Neutrophils % (Manual) 85 % (45-75) H Lymphocytes % (Manual) 11 % (20-45) L Monocytes % (Manual) 4 % (1-10) Eosinophils % (Manual) 0 % (0-3) Basophils % (Manual) 0 % (0-2) Band Neutrophils 0 % (0-8) Nucleated Red Blood Cells 1 /100 WBC Platelet Estimate Adequate Platelet Morphology Normal Hypochromasia 2+ Anisocytosis 1+ Current Medications Medications (Trade) Dose Ordered Sig/Joan Route PRN Reason Start Time Stop Time Status Last Admin Dose Admin Acetaminophen (Tylenol) 650 mg Q4H PRN ORAL Mild Pain (Pain Scale 1-3) 06/24/19 19:52 07/24/19 19:51 Acetylcysteine (Mucomyst) 100 mg Q4HRT PRN HHN Shortness of Breath 06/25/19 23:45 4/2/20 22:59 Albumin Human 100 ml @ 100 mls/hr NEEDED PRN IV DIALYSIS 06/27/19 14:00 07/27/19 13:59 Albuterol Sulfate (Proventil) 2.5 mg Q4HR PRN HHN Shortness of Breath 06/25/19 23:45 06/30/19 20:59 Chlorhexidine Gluconate (Cari-Hex 2%) 1 applic DAILY@2000 TOPIC 06/26/19 20:00 07/26/19 19:59 06/26/19 20:12 Dextrose (Dextrose 50%) 25 ml Q30M PRN IV Hypoglycemia 06/24/19 19:52 07/24/19 19:51 Dextrose (Dextrose 50%) 50 ml Q30M PRN IV Hypoglycemia 06/24/19 19:52 07/24/19 19:51 Diphenhydramine HCl (Benadryl) 25 mg Q6H PRN ORAL Itching/Pruritis 06/24/19 19:52 07/24/19 19:51 Hydromorphone HCl (Dilaudid) 0.5 mg Q3H PRN IVP Pain 4-10 06/25/19 14:30 07/02/19 14:29 Iohexol (OMNIPAQUE-300 100ml) 100 ml ONCE INJ 06/26/19 10:00 07/26/19 16:00 Ondansetron HCl (Zofran) 4 mg Q6H PRN IVP Nausea & Vomiting 06/24/19 19:52 07/24/19 19:51 Pantoprazole 80 mg/Sodium Chloride 250 ml @ 25 mls/hr Q10H IV 06/25/19 22:00 07/25/19 21:59 06/27/19 13:26 Piperacillin Sod/ Tazobactam Sod 2.25 gm/Dextrose 55 ml @ 110 mls/hr Q8HR IV 06/25/19 22:00 06/30/19 21:59 06/27/19 13:25 Vancomycin HCl (Vanco rx to dose) 1 ea DAILY PRN MISC Per rx protocol 06/25/19 21:00 07/25/19 20:59 Vancomycin HCl 1 gm/Sodium Chloride 275 ml @ 183.708 mls/hr ONCE IVPB 3/5/20 18:00 06/27/19 20:00 Ana Rosado MD Jun 27, 2019 17:21
[2019-06-27] MEDS ORDERED: Vancomycin 1 GM in NS 275 ML IVPB SCH (18:00)
[2019-06-27 20:00] VITALS: BP 106/54
[2019-06-27] MEDS: Dyna-Hex 2% Top Sol 2oz TOPIC SCH (20:12)
--- NOTE | 2019-06-27 20:15 | Consultation ---
DATE OF CONSULTATION: 06/27/2019 INFECTIOUS DISEASES CONSULTATION CONSULTING PHYSICIAN: Ana Rosado M.D. ATTENDING PHYSICIAN: Meera Frederick M.D. REFERRING PHYSICIAN: René Rollins M.D. REASON FOR CONSULTATION: Streptococcus bacteremia, sepsis, pneumonia, leukocytosis, fevers. CHIEF COMPLAINT: The patient's chief complaint coming in to the hospital is altered mental status and shortness of breath. HISTORY OF PRESENT ILLNESS: This is an 88-year-old female, who comes in to [facility] with altered mental status and shortness of breath. She is requiring BiPAP. She is currently in the [place]. The patient has renal failure. She is getting hemodialysis. Infectious Disease consultation is requested for antibiotic management as the patient is septic with elevated white count and fevers and altered mental status. The patient's workup shows she has Strep species like in both bottles. Echo was also ordered. Cultures, sputum cultures also been ordered. The patient is empirically started on vancomycin and Zosyn for Streptococcus bacteremia, sepsis, pneumonia, and leukocytosis. The patient could not add any further history. MAR was noted. Orders were noted. Notes were reviewed. REVIEW OF SYSTEMS: The patient is in [place], weak, poorly responsive on BiPAP.HEAD AND NECK: She is on BiPAP. CARDIAC: No pressors. GASTROINTESTINAL: No nausea, vomiting, or diarrhea. GENITOURINARY: She has a Sanchez. PULMONARY: She is short of breath, cough, congestion, on BiPAP. SKIN: No rash. She has wounds. EXTREMITIES: Could not assess. NEUROLOGIC: No seizures. Generalized weakness. Poorly responsive. She did have fevers and had been tachycardic. No rash or seizures. Review of systems is otherwise limited in this patient. PAST MEDICAL HISTORY: The patient has a past medical history of the following. The patient has a past medical history of fall and fracture, rhabdomyolysis, altered level of consciousness, acute renal failure, hemodialysis. She has CAD and non-STEMI. She was hypoglycemic also. She has pulmonary edema. She has no mention of diabetes or hypertension per the records. Past medical history consist of renal failure, rhabdomyolysis, fall, altered level of consciousness, fracture of the lumbar spine, acute kidney injury, on hemodialysis, CAD, non-STEMI. No history of diabetes or hypertension. ALLERGIES: No known drug allergies. No antibiotic allergies. SOCIAL HISTORY: Negative for smoking, alcohol, or drug abuse. FAMILY HISTORY: Noncontributory. Negative for tuberculosis or cancer. MEDICATIONS: Upon reviewing the MAR, she is on following medications. She is on vancomycin and Zosyn. She is on Mucomyst, Proventil, pantoprazole. She is on hydromorphone, acetaminophen, Zofran, and diphenhydramine. Outside medications noted and reconciliated. PHYSICAL EXAMINATION: VITAL SIGNS: Currently, temperature is 98.2, pulse rate 100, respiratory rate 20, blood pressure 108/35 on BiPAP 100%, FiO2 60%, saturating 100% on BiPAP. Pulse rate has been as high as 108, respiratory rate has been today as high as 22, seems like it is even higher and has been as high as 36 previously, and temperature max 100.0 degrees, and pulse rate as high as 108. GENERAL: Lethargic, poorly responsive. HEAD AND NECK: Oral exam, no thrush. Eye exam, no icterus. Normocephalic. Neck is supple. She is on BiPAP. HEART: Regular. No gallop or murmur. No friction rub. She is tachycardic. ABDOMEN: Soft. Positive bowel sounds. LUNGS: Bilateral rhonchi, rales, and crackles. SKIN: No rash or dermatitis. MUSCULOSKELETAL: No effusion. Legs are without cellulitis. PERIPHERAL VASCULAR: No cyanosis or gangrene. GENITOURINARY: She has a Sanchez. Urine is cloudy. LINES: Lines sites are without phlebitis. NEUROLOGIC: Generalized weakness. Poorly responsive. On BiPAP, short of breath. The wounds were reviewed. LABORATORY AND DIAGNOSTIC DATA: Laboratory data is as follows. Creatinine is 5.8. CK greater than 10,000. CBC, white count 19.4, hemoglobin 9.3. Creatinine is 5.8. LFTs were noted. Hep C antigen is negative. UA was fairly benign with leukocyte esterase negative, 0 to 2 white cells. Cultures, blood cultures with multiple bottles had Strep species, alpha hemolytic. Echo has been ordered and is pending. Sputum culture is pending. Imaging studies, CT of the chest showed extensive airspace consolidation of the left lung in the left perihilar area and left lower lobe, suspicious for pneumonia and aspiration. chest x-ray showed extensive left pulmonary infiltrate suggestive of aspiration pneumonia. Blood cultures, alpha Strep, final species identification is pending. Echo has been ordered. Sputum culture pending. ASSESSMENT AND PLAN: 1. The patient has Streptococcus species bacteremia, sepsis, elevated white count, fevers, pneumonia, likely aspiration pneumonia versus community-acquired pneumonia. It is unclear if she had some type of healthcare-acquired pneumonia. The patient has extensive pneumonia and short of breath on BiPAP and renal failure and rhabdomyolysis with hemodialysis. The patient has sepsis syndrome with altered mental status, elevated respiratory rate, tachycardia, shortness of breath, fevers, and leukocytosis. Continue empiric vancomycin and Zosyn for MRSA Gram-negative and Streptococcus coverage. Continue vancomycin and Zosyn for Streptococcus bacteremia pneumonia, sepsis, leukocytosis, and fevers. Check sputum culture and final blood cultures identification. Check surveillance blood cultures, echo, laboratories, and chest x-ray. 2. Acute renal failure, on hemodialysis. 3. Rhabdomyolysis. 4. Elevated LFTs. 5. CAD. 6. Non-STEMI. 7. No history of diabetes or hypertension. 8. Fall. 9. Altered level of consciousness. 10. Lumbar spine fracture. 11. No known drug allergies. 12. Social history is negative. 13. Family history is noncontributory. 14. MAR was noted. 15. Case was discussed with RN. 16. Continue treatment per primary consultants. I discussed the case with the family yesterday at length and also discussed with nursing yesterday and today. Ana Rosado M.D. DR: FIFI JOB#: [id number] CC:
[2019-06-28] VITALS: BP 134/56
[2019-06-28 04:00] VITALS: BP 135/59
[2019-06-28] MEDS: Zosyn 2.25 gm in D5W 55ml IV SCH ×3 (05:03→20:56)
[2019-06-28 05:27] LABS: HEMATOCRIT 22.3 % (37.0-47.0); HEMOGLOBIN 7.5 G/DL (12.0-16.0); MEAN CORPUSCULAR VOLUME 82 FL (80-99); PLATELET COUNT 149 K/UL (150-450); RED BLOOD COUNT 2.73 M/UL (4.20-5.40); RED CELL DISTRIBUTION WIDTH 11.6 % (11.6-14.8); WHITE BLOOD COUNT 16.7 K/UL (4.8-10.8)
[2019-06-28 05:53] LABS: ALANINE AMINOTRANSFERASE 106 U/L (12-78); ALBUMIN/GLOBULIN RATIO 1.1 (1.0-2.7); ALKALINE PHOSPHATASE 72 U/L (46-116); ANION GAP 18 mmol/L (5-15); ASPARTATE AMINO TRANSFERASE 273 U/L (15-37); BILIRUBIN,DIRECT 0.7 MG/DL (0.0-0.3); BLOOD UREA NITROGEN 78 mg/dL (7-18); CALCIUM 8.7 MG/DL (8.5-10.1); CARBON DIOXIDE 22 MMOL/L (21-32); CHLORIDE 101 MMOL/L (98-107); CREATININE 4.2 MG/DL (0.55-1.30); POTASSIUM 3.5 MMOL/L (3.5-5.1); SODIUM 141 MMOL/L (136-145)
[2019-06-28 07:07] LABS: HEMATOCRIT 22.8 % (37.0-47.0); HEMOGLOBIN 7.6 G/DL (12.0-16.0); MEAN CORPUSCULAR VOLUME 82 FL (80-99); PLATELET COUNT 149 K/UL (150-450); RED BLOOD COUNT 2.77 M/UL (4.20-5.40); RED CELL DISTRIBUTION WIDTH 12.2 % (11.6-14.8); WHITE BLOOD COUNT 16.9 K/UL (4.8-10.8)
[2019-06-28 08:00] VITALS: BP 136/60
--- NOTE | 2019-06-28 08:52 | CDS Physician Query ---
Clarification is required for compliance, coding accuracy, and to reflect severity of illness for this patient Dear Dr. Rosado, Date: 06.28.19 CDS: Anel Worrell Exercise your independent professional judgment when responding to query. Question asked do not imply a particular answer is desired/expected Clinical Documentation States: "Sepsis" documented in infectious disease progress notes. Clinical Findings Show: General variables [] Fever (temp >38.3 degrees C or 100.4 degrees F) [] Hypothermia (temp<36 degrees C or 96.0 degrees F) [] Heart rate > 90/min [] Tachypnea/RR > 20 bpm [] pCO2 < 32 mmHg [ x] Altered mental status [] Significant edema or positive fluid balance (>20 ml/kg over 24h) [] Hyperglycemia ( Plasma >140 mg/dL or 7.7 mmol/L) in the abscence of diabetes Inflammatory variables [ x] Leukocytosis (WBC count > 12,000 L1 [ ] Leukopenia (WBC count < 4000 L1) [] Normal WBC count with greater than 10% immature forms (Bandemia) Hemodynamic variables [] Arterial hypotension (SBP < 90 mm Hg, MAP < 70 mm Hg, or an SBP decrease > 40 mm Hg in adults or less than two sd below normal for age) Organ dysfunction variables [] Arterial hypoxemia (Pao2/Fio2 < 300) [] Acute oliguria (urine output < 0.5 mL/kg/hr for at least 2 hrs despite adequate fluid resuscitation) [] Creatinine increase > 0.5 mg/dL or 44.2 mol/L [] Coagulation abnormalities (INR > 1.5 or aPTT > 60 s) [] Ileus (absent bowel sounds) [] Thrombocytopenia (platelet count < 100,000 L1) [] Hyperbilirubinemia (plasma total bilirubin > 4 mg/dL or 70 mol/L) Tissue Perfusion Variables [] Hyperlactatemia (> 1 mmol/L) [] Decreased capillary refill or mottling Was SEPSIS present on admission? [x ] Yes [ ] No [ ] Clinically undeterminable Physician signature Date Please also document in your Progress Notes and/or Discharge Summary and indicate if the condition was present on admission. HERMINIAD
[2019-06-28] MEDS: Pantoprazole 80 MG in NS 250 ML IV SCH ×2 (10:17→20:11)
--- NOTE | 2019-06-28 10:29 | Diagnostic Imaging Report ---
Indication: Dyspnea Technique: One view of the chest Comparison: 06/25/2019 Findings: Interim expansion of previously atelectatic left lung. There is considerable interstitial and airspace disease throughout the left lung, however. Less extensive interstitial congestion is seen in the right lung. The heart size is normal. The aorta is tortuous and calcified Impression: Interim reexpansion of previously atelectatic left lung. However, there is considerable infiltrate and/or edema throughout the left lung. There is also persistent mild generalized interstitial congestion in the right lung
--- NOTE | 2019-06-28 11:39 | General Progress Note ---
Assessment/Plan Problem List: (1) Fall ICD Codes: W19.XXXA - Unspecified fall, initial encounter SNOMED: 0640086, 570918571 (2) Altered level of consciousness ICD Codes: R40.4 - Transient alteration of awareness SNOMED: 0926586 (3) Fracture of lumbar spine ICD Codes: S32.009A - Unspecified fracture of unspecified lumbar vertebra, initial encounter for closed fracture SNOMED: 704467764 (4) Rhabdomyolysis ICD Codes: M62.82 - Rhabdomyolysis SNOMED: 973156080 (5) KAREN (acute kidney injury) ICD Codes: N17.9 - Acute kidney failure, unspecified SNOMED: 4543287, 63080560 Status: stable Assessment/Plan: #Rhabdomyolosis #KAREN #Uremic encephaloapathy #Anion gap metabolic acidosis #Lactic acidosis -resolved #Pressure wounds. -Nephrology consulted. -General surgery consulted for wound care, central line insertion. -HD per nephro. -Discussed with family at length re: clinical status, code status, feeding. okay with artificial feeding. unclear on code status but full code for now. -NGT for feeding for now. May need speech therapy -> PEG. #Left lung PNA - likely aspiration #Acute hypoxic respiratory failure #GPC bacteremia Noted to be acutely hypoxic on early AM of 06/25, requiring bipap. -CT chest, CXR with left lung infiltrate. -Continue BiPAP -> transition to NC today. -ABG prn. -Pulmonology consulted. -ID consulted. -Vanc/zosyn (06/25 -) -f/u BCx for speciation, sensitivities. -repeat BCx. -f/u sputum Cx. #L1 vertebral fracture - likely old seen on imaging, likely old. -reassurance provided to family. #Transaminitis ?from dehydration, abd exam benign. -continue to trend LFT's. #Type 2 NSTEMI likely demand in setting of renal failure. EKG wnl. -no need to trend. -cardiology consult. Time spent: 62 mins, >50% on counseling and coordination of care. Extra time spent today with family members at bedside discussing clinical status, prognosis , code status. Time of note doesn't reflect time of encounter. Subjective Date patient seen: Jun 28, 2019 ROS Limited/Unobtainable: Yes Allergies: Coded Allergies: No Known Allergies (Unverified , 06/24/19) Subjective slightly more awake, opens eyes co ommand. discussed with family members at length re: patient's clinical status, prognosis and code status. Read through advanced directive, but not very helpful. Discussed POSLST form, which she might have from prior hospitalization but can't locate. Feeding tube discussed, seems amenable. In the meantime, NGT feeding agreed. Objective Last 24 Hour Vital Signs Date Time Temp Pulse Resp B/P (MAP) Pulse Ox O2 Delivery O2 Flow Rate FiO2 06/28/19 08:57 85 18 100 30 06/28/19 08:00 98.8 90 16 136/60 (85) 100 06/28/19 08:00 83 06/28/19 08:00 50 06/28/19 08:00 Bi-pap Bi-pap 06/28/19 06:30 100 Bi-Pap 40 06/28/19 06:30 82 17 100 30 06/28/19 04:43 89 20 100 40 06/28/19 04:00 50 06/28/19 04:00 99.1 84 16 135/59 (84) 100 06/28/19 04:00 Bi-pap Bi-pap 06/28/19 03:39 103 06/28/19 03:12 83 19 100 40 06/28/19 00:43 82 19 100 50 06/28/19 00:00 98.8 76 19 134/56 (82) 100 06/28/19 00:00 50 06/28/19 00:00 Bi-pap Bi-pap 06/27/19 23:27 84 06/27/19 22:31 78 22 100 50 06/27/19 20:32 109 22 100 50 06/27/19 20:00 98.7 88 21 106/54 (71) 100 06/27/19 20:00 50 06/27/19 20:00 Bi-pap Bi-pap 06/27/19 20:00 114 06/27/19 18:51 99 24 100 50 06/27/19 18:51 100 Bi-Pap 50 06/27/19 17:05 82 23 100 50 06/27/19 16:00 82 06/27/19 16:00 60 06/27/19 16:00 98.2 100 20 108/35 (59) 100 3/5/20 16:00 Bi-pap 06/27/19 15:15 98 29 100 55 06/27/19 12:58 84 25 100 55 06/27/19 12:00 60 06/27/19 12:00 98.2 83 17 134/60 (84) 100 06/27/19 12:00 Bi-pap Intake and Output 06/27/19 06/28/19 19:00 07:00 Intake Total 593.708 ml 409.58 ml Output Total 30 ml 20 ml Balance 563.708 ml 389.58 ml Intake Oral 0 ml 0 ml IV Total 593.708 ml 409.58 ml Hemodialysis 0 ml Output Urine Total 30 ml 20 ml # Bowel Movements 4 Laboratory Tests 06/28/19 04:00: White Blood Count 16.7H, Red Blood Count 2.73L, Hemoglobin 7.5L, Hematocrit 22.3L, Mean Corpuscular Volume 82, Mean Corpuscular Hemoglobin 27.4, Mean Corpuscular Hemoglobin Concent 33.6, Red Cell Distribution Width 11.6, Platelet Count 149L, Mean Platelet Volume 9.4, Neutrophils (%) (Auto) , Lymphocytes (%) ( Auto) , Monocytes (%) (Auto) , Eosinophils (%) (Auto) , Basophils (%) (Auto) , Differential Total Cells Counted 100, Neutrophils % (Manual) 77H, Lymphocytes % (Manual) 13L, Monocytes % (Manual) 10, Eosinophils % (Manual) 0, Basophils % ( Manual) 0, Band Neutrophils 0, Platelet Estimate Adequate, Platelet Morphology Normal, Polychromasia 1+, Hypochromasia 1+, Sodium Level 141, Potassium Level 3.5, Chloride Level 101, Carbon Dioxide Level 22, Anion Gap 18H, Blood Urea Nitrogen 78H, Creatinine 4.2H, Estimat Glomerular Filtration Rate 12.1, Glucose Level 80, Calcium Level 8.7, Total Bilirubin 2.0H, Direct Bilirubin 0.7H, Aspartate Amino Transf (AST/SGOT) 273H, Alanine Aminotransferase (ALT/SGPT) 106H , Alkaline Phosphatase 72, Total Protein 5.8L, Albumin 3.0L, Globulin 2.8, Albumin/Globulin Ratio 1.1 06/28/19 06:45: White Blood Count 16.9H, Red Blood Count 2.77L, Hemoglobin 7.6L, Hematocrit 22.8L, Mean Corpuscular Volume 82, Mean Corpuscular Hemoglobin 27.4, Mean Corpuscular Hemoglobin Concent 33.3, Red Cell Distribution Width 12.2, Platelet Count 149L, Mean Platelet Volume 8.1, Neutrophils (%) (Auto) , Lymphocytes (%) ( Auto) , Monocytes (%) (Auto) , Eosinophils (%) (Auto) , Basophils (%) (Auto) , Differential Total Cells Counted 100, Neutrophils % (Manual) 79H, Lymphocytes % (Manual) 11L, Monocytes % (Manual) 9, Eosinophils % (Manual) 1, Basophils % ( Manual) 0, Band Neutrophils 0, Platelet Estimate Adequate, Platelet Morphology Normal, Polychromasia 1+, Hypochromasia 1+, Anisocytosis Height (Feet): 5 Height (Inches): 4.00 Weight (Pounds): 115 General Appearance: lethargic Neck: supple Cardiovascular: normal rate, regular rhythm Respiratory/Chest: lungs clear, normal breath sounds Abdomen: non tender, soft René Rollins M.D. Jun 28, 2019 11:39
[2019-06-28 12:00] VITALS: BP 130/62
--- NOTE | 2019-06-28 13:08 | Nephrology Progress Note ---
Assessment/Plan Plan #acute renal failure on possible CKD- due to rhabdo- UA with + RBC- concerns for developing ATN #Uremia #complete opacification of the left hemithorax- likely aspiration pneumonia #lactic acidosis #Hypernatremia- improved #AMS #elevated liver enzyme - HD tomorrow - with 2l UF - no IVF - on bipap - pulmonary eval - renal US-> No obstructive nephropathy. - monitor liver enzymes - continue with abx- on vanco and zosyn - cardiology eval noted - stress test prior to DC Subjective Subjective on bipap BP stable remains oliguric HD yesterday CT chest: Extensive airspace consolidation in the left lung involving the left perihilar, upper lobe and left lower lobe. Findings suspicious for pneumonia, especially aspiration given the abrupt onset. Please correlate clinically. Partial atelectasis of the left lower lobe also noted Objective Objective Last 24 Hour Vital Signs Date Time Temp Pulse Resp B/P (MAP) Pulse Ox O2 Delivery O2 Flow Rate FiO2 06/28/19 08:57 85 18 100 30 06/28/19 08:00 98.8 90 16 136/60 (85) 100 06/28/19 08:00 83 06/28/19 08:00 50 06/28/19 08:00 Bi-pap Bi-pap 06/28/19 06:30 100 Bi-Pap 40 06/28/19 06:30 82 17 100 30 06/28/19 04:43 89 20 100 40 06/28/19 04:00 50 06/28/19 04:00 99.1 84 16 135/59 (84) 100 06/28/19 04:00 Bi-pap Bi-pap 06/28/19 03:39 103 06/28/19 03:12 83 19 100 40 06/28/19 00:43 82 19 100 50 06/28/19 00:00 98.8 76 19 134/56 (82) 100 06/28/19 00:00 50 06/28/19 00:00 Bi-pap Bi-pap 06/27/19 23:27 84 06/27/19 22:31 78 22 100 50 06/27/19 20:32 109 22 100 50 06/27/19 20:00 98.7 88 21 106/54 (71) 100 06/27/19 20:00 50 06/27/19 20:00 Bi-pap Bi-pap 06/27/19 20:00 114 06/27/19 18:51 99 24 100 50 06/27/19 18:51 100 Bi-Pap 50 06/27/19 17:05 82 23 100 50 06/27/19 16:00 82 06/27/19 16:00 60 06/27/19 16:00 98.2 100 20 108/35 (59) 100 06/27/19 16:00 Bi-pap 06/27/19 15:15 98 29 100 55 Intake and Output 06/27/19 06/28/19 19:00 07:00 Intake Total 593.708 ml 409.58 ml Output Total 30 ml 20 ml Balance 563.708 ml 389.58 ml Intake Oral 0 ml 0 ml IV Total 593.708 ml 409.58 ml Hemodialysis 0 ml Output Urine Total 30 ml 20 ml # Bowel Movements 4 Laboratory Tests 06/28/19 04:00: White Blood Count 16.7H, Red Blood Count 2.73L, Hemoglobin 7.5L, Hematocrit 22.3L, Mean Corpuscular Volume 82, Mean Corpuscular Hemoglobin 27.4, Mean Corpuscular Hemoglobin Concent 33.6, Red Cell Distribution Width 11.6, Platelet Count 149L, Mean Platelet Volume 9.4, Neutrophils (%) (Auto) , Lymphocytes (%) ( Auto) , Monocytes (%) (Auto) , Eosinophils (%) (Auto) , Basophils (%) (Auto) , Differential Total Cells Counted 100, Neutrophils % (Manual) 77H, Lymphocytes % (Manual) 13L, Monocytes % (Manual) 10, Eosinophils % (Manual) 0, Basophils % ( Manual) 0, Band Neutrophils 0, Platelet Estimate Adequate, Platelet Morphology Normal, Polychromasia 1+, Hypochromasia 1+, Sodium Level 141, Potassium Level 3.5, Chloride Level 101, Carbon Dioxide Level 22, Anion Gap 18H, Blood Urea Nitrogen 78H, Creatinine 4.2H, Estimat Glomerular Filtration Rate 12.1, Glucose Level 80, Calcium Level 8.7, Total Bilirubin 2.0H, Direct Bilirubin 0.7H, Aspartate Amino Transf (AST/SGOT) 273H, Alanine Aminotransferase (ALT/SGPT) 106H , Alkaline Phosphatase 72, Total Protein 5.8L, Albumin 3.0L, Globulin 2.8, Albumin/Globulin Ratio 1.1 06/28/19 06:45: White Blood Count 16.9H, Red Blood Count 2.77L, Hemoglobin 7.6L, Hematocrit 22.8L, Mean Corpuscular Volume 82, Mean Corpuscular Hemoglobin 27.4, Mean Corpuscular Hemoglobin Concent 33.3, Red Cell Distribution Width 12.2, Platelet Count 149L, Mean Platelet Volume 8.1, Neutrophils (%) (Auto) , Lymphocytes (%) ( Auto) , Monocytes (%) (Auto) , Eosinophils (%) (Auto) , Basophils (%) (Auto) , Differential Total Cells Counted 100, Neutrophils % (Manual) 79H, Lymphocytes % (Manual) 11L, Monocytes % (Manual) 9, Eosinophils % (Manual) 1, Basophils % ( Manual) 0, Band Neutrophils 0, Platelet Estimate Adequate, Platelet Morphology Normal, Polychromasia 1+, Hypochromasia 1+, Anisocytosis Height (Feet): 5 Height (Inches): 4.00 Weight (Pounds): 115 Objective General Appearance: lethargic, confused, on bipap Lines, tubes and drains: peripheral HEENT: normocephalic, atraumatic Neck: non-tender Respiratory/Chest: minimal breath sounds on the left Cardiovascular/Chest: normal peripheral pulses, normal rate, regular rhythm, regularly irregular Abdomen: non tender, soft Rory Oconnor M.D. Jun 28, 2019 13:08
--- NOTE | 2019-06-28 13:44 | Pulmonology Progress Note ---
Assessment/Plan Assessment/Plan IMPRESSION: 1. Extensive left lung pneumonia. 2. Pulmonary edema. 3. respiratory failure on BiPAP DISCUSSION: The patient is on broad-spectrum antibiotics. She needs dialysis. I will continue BiPAP, current settings are adequate. I will follow carefully. Discussed with family at bedside. Prognosis is grave. Abrahan Samaniego M.D. Subjective Interval Events: remains on BiPAP. Lethargic Constitutional: Reports: no symptoms HEENT: Repors: no symptoms Respiratory: Reports: no symptoms Cardiovascular: Reports: no symptoms Gastrointestinal/Abdominal: Reports: no symptoms Allergies: Coded Allergies: No Known Allergies (Unverified , 06/24/19) Objective Last 24 Hour Vital Signs Date Time Temp Pulse Resp B/P (MAP) Pulse Ox O2 Delivery O2 Flow Rate FiO2 06/28/19 12:00 3.0 06/28/19 12:00 87 06/28/19 12:00 Bi-pap Bi-pap 06/28/19 08:57 85 18 100 30 06/28/19 08:00 98.8 90 16 136/60 (85) 100 06/28/19 08:00 83 06/28/19 08:00 50 06/28/19 08:00 Bi-pap Bi-pap 06/28/19 06:30 100 Bi-Pap 40 06/28/19 06:30 82 17 100 30 06/28/19 04:43 89 20 100 40 06/28/19 04:00 50 06/28/19 04:00 99.1 84 16 135/59 (84) 100 06/28/19 04:00 Bi-pap Bi-pap 06/28/19 03:39 103 06/28/19 03:12 83 19 100 40 06/28/19 00:43 82 19 100 50 06/28/19 00:00 98.8 76 19 134/56 (82) 100 06/28/19 00:00 50 06/28/19 00:00 Bi-pap Bi-pap 06/27/19 23:27 84 06/27/19 22:31 78 22 100 50 06/27/19 20:32 109 22 100 50 06/27/19 20:00 98.7 88 21 106/54 (71) 100 06/27/19 20:00 50 06/27/19 20:00 Bi-pap Bi-pap 06/27/19 20:00 114 06/27/19 18:51 99 24 100 50 06/27/19 18:51 100 Bi-Pap 50 06/27/19 17:05 82 23 100 50 06/27/19 16:00 82 06/27/19 16:00 60 06/27/19 16:00 98.2 100 20 108/35 (59) 100 06/27/19 16:00 Bi-pap 06/27/19 15:15 98 29 100 55 Intake and Output 06/27/19 06/28/19 19:00 07:00 Intake Total 593.708 ml 409.58 ml Output Total 30 ml 20 ml Balance 563.708 ml 389.58 ml Intake Oral 0 ml 0 ml IV Total 593.708 ml 409.58 ml Hemodialysis 0 ml Output Urine Total 30 ml 20 ml # Bowel Movements 4 General Appearance: no acute distress HEENT: normocephalic Respiratory/Chest: chest wall non-tender, lungs clear Cardiovascular: normal peripheral pulses Abdomen: normal bowel sounds Laboratory Tests 06/28/19 04:00: White Blood Count 16.7H, Red Blood Count 2.73L, Hemoglobin 7.5L, Hematocrit 22.3L, Mean Corpuscular Volume 82, Mean Corpuscular Hemoglobin 27.4, Mean Corpuscular Hemoglobin Concent 33.6, Red Cell Distribution Width 11.6, Platelet Count 149L, Mean Platelet Volume 9.4, Neutrophils (%) (Auto) , Lymphocytes (%) ( Auto) , Monocytes (%) (Auto) , Eosinophils (%) (Auto) , Basophils (%) (Auto) , Differential Total Cells Counted 100, Neutrophils % (Manual) 77H, Lymphocytes % (Manual) 13L, Monocytes % (Manual) 10, Eosinophils % (Manual) 0, Basophils % ( Manual) 0, Band Neutrophils 0, Platelet Estimate Adequate, Platelet Morphology Normal, Polychromasia 1+, Hypochromasia 1+, Sodium Level 141, Potassium Level 3.5, Chloride Level 101, Carbon Dioxide Level 22, Anion Gap 18H, Blood Urea Nitrogen 78H, Creatinine 4.2H, Estimat Glomerular Filtration Rate 12.1, Glucose Level 80, Calcium Level 8.7, Total Bilirubin 2.0H, Direct Bilirubin 0.7H, Aspartate Amino Transf (AST/SGOT) 273H, Alanine Aminotransferase (ALT/SGPT) 106H , Alkaline Phosphatase 72, Total Protein 5.8L, Albumin 3.0L, Globulin 2.8, Albumin/Globulin Ratio 1.1 06/28/19 06:45: White Blood Count 16.9H, Red Blood Count 2.77L, Hemoglobin 7.6L, Hematocrit 22.8L, Mean Corpuscular Volume 82, Mean Corpuscular Hemoglobin 27.4, Mean Corpuscular Hemoglobin Concent 33.3, Red Cell Distribution Width 12.2, Platelet Count 149L, Mean Platelet Volume 8.1, Neutrophils (%) (Auto) , Lymphocytes (%) ( Auto) , Monocytes (%) (Auto) , Eosinophils (%) (Auto) , Basophils (%) (Auto) , Differential Total Cells Counted 100, Neutrophils % (Manual) 79H, Lymphocytes % (Manual) 11L, Monocytes % (Manual) 9, Eosinophils % (Manual) 1, Basophils % ( Manual) 0, Band Neutrophils 0, Platelet Estimate Adequate, Platelet Morphology Normal, Polychromasia 1+, Hypochromasia 1+, Anisocytosis Current Medications Medications (Trade) Dose Ordered Sig/Joan Route PRN Reason Start Time Stop Time Status Last Admin Dose Admin Acetaminophen (Tylenol) 650 mg Q4H PRN ORAL Mild Pain (Pain Scale 1-3) 06/24/19 19:52 07/24/19 19:51 Acetylcysteine (Mucomyst) 100 mg Q4HRT PRN HHN Shortness of Breath 06/25/19 23:45 07/25/19 22:59 Albumin Human 100 ml @ 100 mls/hr NEEDED PRN IV DIALYSIS 06/27/19 14:00 07/27/19 13:59 Albuterol Sulfate (Proventil) 2.5 mg Q4HR PRN HHN Shortness of Breath 06/25/19 23:45 06/30/19 20:59 Chlorhexidine Gluconate (Cari-Hex 2%) 1 applic DAILY@2000 TOPIC 06/26/19 20:00 07/26/19 19:59 06/27/19 20:12 Dextrose (Dextrose 50%) 25 ml Q30M PRN IV Hypoglycemia 06/24/19 19:52 07/24/19 19:51 Dextrose (Dextrose 50%) 50 ml Q30M PRN IV Hypoglycemia 06/24/19 19:52 07/24/19 19:51 Diphenhydramine HCl (Benadryl) 25 mg Q6H PRN ORAL Itching/Pruritis 06/24/19 19:52 07/24/19 19:51 Hydromorphone HCl (Dilaudid) 0.5 mg Q3H PRN IVP Pain 4-10 06/25/19 14:30 07/02/19 14:29 Ondansetron HCl (Zofran) 4 mg Q6H PRN IVP Nausea & Vomiting 06/24/19 19:52 07/24/19 19:51 Pantoprazole 80 mg/Sodium Chloride 250 ml @ 25 mls/hr Q10H IV 06/25/19 22:00 07/25/19 21:59 06/28/19 10:17 Piperacillin Sod/ Tazobactam Sod 2.25 gm/Dextrose 55 ml @ 110 mls/hr Q8HR IV 06/25/19 22:00 06/30/19 21:59 06/28/19 13:41 Vancomycin HCl (Vanco rx to dose) 1 ea DAILY PRN MISC Per rx protocol 06/25/19 21:00 07/25/19 20:59 Abrahan Samaniego MD Jun 28, 2019 13:44
--- NOTE | 2019-06-28 13:54 | Surgery Progress Note ---
Surgery Progress Note Subjective Procedure Performed Left femoral temporary hemodialysis catheter insertion Additional Comments leukocytosis elevated lft's exam stable worsening pna Objective Last 24 Hour Vital Signs Date Time Temp Pulse Resp B/P (MAP) Pulse Ox O2 Delivery O2 Flow Rate FiO2 06/28/19 12:00 3.0 06/28/19 12:00 87 06/28/19 12:00 97.5 90 16 130/62 (84) 100 06/28/19 12:00 Bi-pap Bi-pap 06/28/19 08:57 85 18 100 30 06/28/19 08:00 98.8 90 16 136/60 (85) 100 06/28/19 08:00 83 06/28/19 08:00 50 06/28/19 08:00 Bi-pap Bi-pap 06/28/19 06:30 100 Bi-Pap 40 06/28/19 06:30 82 17 100 30 06/28/19 04:43 89 20 100 40 06/28/19 04:00 50 06/28/19 04:00 99.1 84 16 135/59 (84) 100 06/28/19 04:00 Bi-pap Bi-pap 06/28/19 03:39 103 06/28/19 03:12 83 19 100 40 06/28/19 00:43 82 19 100 50 06/28/19 00:00 98.8 76 19 134/56 (82) 100 06/28/19 00:00 50 06/28/19 00:00 Bi-pap Bi-pap 06/27/19 23:27 84 06/27/19 22:31 78 22 100 50 06/27/19 20:32 109 22 100 50 06/27/19 20:00 98.7 88 21 106/54 (71) 100 06/27/19 20:00 50 06/27/19 20:00 Bi-pap Bi-pap 06/27/19 20:00 114 06/27/19 18:51 99 24 100 50 06/27/19 18:51 100 Bi-Pap 50 06/27/19 17:05 82 23 100 50 06/27/19 16:00 82 06/27/19 16:00 60 06/27/19 16:00 98.2 100 20 108/35 (59) 100 06/27/19 16:00 Bi-pap 3/5/20 15:15 98 29 100 55 I&O Intake and Output 06/27/19 06/28/19 19:00 07:00 Intake Total 593.708 ml 409.58 ml Output Total 30 ml 20 ml Balance 563.708 ml 389.58 ml Intake Oral 0 ml 0 ml IV Total 593.708 ml 409.58 ml Hemodialysis 0 ml Output Urine Total 30 ml 20 ml # Bowel Movements 4 Dressing: other Wound: other Drains: other Cardiovascular: RSR Respiratory: decreased breath sounds Abdomen: present bowel sounds, non-distended Extremities: no cyanosis, other Laboratory Tests Test 06/28/19 04:00 06/28/19 06:45 White Blood Count 16.7 K/UL (4.8-10.8) H 16.9 K/UL (4.8-10.8) H Red Blood Count 2.73 M/UL (4.20-5.40) L 2.77 M/UL (4.20-5.40) L Hemoglobin 7.5 G/DL (12.0-16.0) L 7.6 G/DL (12.0-16.0) L Hematocrit 22.3 % (37.0-47.0) L 22.8 % (37.0-47.0) L Mean Corpuscular Volume 82 FL (80-99) 82 FL (80-99) Mean Corpuscular Hemoglobin 27.4 PG (27.0-31.0) 27.4 PG (27.0-31.0) Mean Corpuscular Hemoglobin Concent 33.6 G/DL (32.0-36.0) 33.3 G/DL (32.0-36.0) Red Cell Distribution Width 11.6 % (11.6-14.8) 12.2 % (11.6-14.8) Platelet Count 149 K/UL (150-450) L 149 K/UL (150-450) L Mean Platelet Volume 9.4 FL (6.5-10.1) 8.1 FL (6.5-10.1) Neutrophils (%) (Auto) % (45.0-75.0) % (45.0-75.0) Lymphocytes (%) (Auto) % (20.0-45.0) % (20.0-45.0) Monocytes (%) (Auto) % (1.0-10.0) % (1.0-10.0) Eosinophils (%) (Auto) % (0.0-3.0) % (0.0-3.0) Basophils (%) (Auto) % (0.0-2.0) % (0.0-2.0) Differential Total Cells Counted 100 100 Neutrophils % (Manual) 77 % (45-75) H 79 % (45-75) H Lymphocytes % (Manual) 13 % (20-45) L 11 % (20-45) L Monocytes % (Manual) 10 % (1-10) 9 % (1-10) Eosinophils % (Manual) 0 % (0-3) 1 % (0-3) Basophils % (Manual) 0 % (0-2) 0 % (0-2) Band Neutrophils 0 % (0-8) 0 % (0-8) Platelet Estimate Adequate Adequate Platelet Morphology Normal Normal Polychromasia 1+ 1+ Hypochromasia 1+ 1+ Sodium Level 141 MMOL/L (136-145) Potassium Level 3.5 MMOL/L (3.5-5.1) Chloride Level 101 MMOL/L (98-107) Carbon Dioxide Level 22 MMOL/L (21-32) Anion Gap 18 mmol/L (5-15) H Blood Urea Nitrogen 78 mg/dL (7-18) H Creatinine 4.2 MG/DL (0.55-1.30) H Estimat Glomerular Filtration Rate 12.1 mL/min (>60) Glucose Level 80 MG/DL (74-106) Calcium Level 8.7 MG/DL (8.5-10.1) Total Bilirubin 2.0 MG/DL (0.2-1.0) H Direct Bilirubin 0.7 MG/DL (0.0-0.3) H Aspartate Amino Transf (AST/SGOT) 273 U/L (15-37) H Alanine Aminotransferase (ALT/SGPT) 106 U/L (12-78) H Alkaline Phosphatase 72 U/L (46-116) Total Protein 5.8 G/DL (6.4-8.2) L Albumin 3.0 G/DL (3.4-5.0) L Globulin 2.8 g/dL Albumin/Globulin Ratio 1.1 (1.0-2.7) Anisocytosis Plan Problems: (1) Fall Assessment & Plan: 88 year old female s/p fall now with renal insufficiency requiring HD spoke with family. she has known CKD multiple decubitus ulcers from being down malnutrition line placed see documentation trend labs abx HD thank you prognosis guarded family at bedside cxr noted pna worsening (2) Altered level of consciousness (3) Fracture of lumbar spine Assessment & Plan: Lungs: There is increased density at the lung bases likely atelectasis. Aorta is moderately calcified. There is a small hiatal hernia.. Liver: Grossly unremarkable. There is artifact limiting evaluation in addition to the fact that no IV or oral contrast was given for this examination. Gallbladder/biliary system: Grossly unremarkable. Spleen: Unremarkable Pancreas: In the area of the pancreatic tail there is a 1.6 cm nodular density which may be cystic. Further evaluation is recommended. Kidneys/Bladder: Vascular calcifications are quite extensive and extend to the hilum of both kidneys. Evaluation for punctate nonobstructive stones is limited in this setting but no definite stones seen. There is no hydronephrosis. Extensive breathing motion limiting evaluation.. Adrenal glands: Unremarkable Bowel: Patient's prior partial bowel resection in the right lower abdomen with anastomotic sutures noted. There is no evidence of a bowel obstruction or inflammatory changes. Appendix is not seen definitely but there are no signs of appendicitis. A few diverticula are noted within the colon. Aorta/IVC: There is a severe calcification of aorta and multiple branches of the aorta. Peritoneum: There is no free fluid. Bones: Bones are diffusely osteopenic. Multiple compression fracture deformities of several vertebra noted including lower thoracic vertebra and L1. There is narrowing of intervertebral discs and accompanying endplate osteophyte formation. Hypertrophied facet joints also demonstrated. Scoliosis of the lower thoracic spine convex to the right and left convex lumbar scoliosis noted. IMPRESSION: No acute findings appreciated. Study limited by the lack of intravenous oral contrast as well as extensive motion artifact. 1.6 cm probable cystic lesion in the pancreatic tail. This requires further evaluation with the contrast CT or MR. Status post previous partial bowel resection. 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 Degenerative changes as described above. (4) Rhabdomyolysis (5) KAREN (acute kidney injury) (6) Decubitus skin ulcer Assessment & Plan: Pt presented on admission with multiple pressure injuries. Pt's niece Sarah stated pt lives alone and found pt laying on her R side on floor in patient's home.Niece believes pt has been laying on floor for approx 5 days. DTPI noted to R cheek. Base of wound is purple with marginal erythema along borders.(L)1.2cm x (W)1.6cm. Unstageable pressure injury R shoulder. Base of wound is 100% necrotic with marginal erythema along borders.(L)4.8cm x (W).3.5cm . DTPI R humerus. Base of wound is fluctuant and maroon in colour with surrounding erythema. (L)10.6cm x (W)3.1cm. DTPI R elbow.Base of wound is indurated with scattered areas that are purple in colour. An area of fluctuance in center. Marginal erythema along borders.(L) 5.3cm x (W)10.4cm. Partially opened Sacral DTPI. Base of wound is purple with surrounding erythema. Partial open wound cleft that is corby and moist.(L)5.3cm x (W) 4.5cm.NO odor or exudate noted. Non-blanching erythema periwound. DTPI L ischium . Base of wound is purple and indurated.(L)6cm x (W)7.5cm. Unstageable pressure injury R hip. Base of wound is 75% necrotic, 25% mixed erythema and slough. Borders are moist,soft with scattered areas that are black. Periwound is dusky and indurated.No odor or exudate noted. DTPI at posterior and medial aspect of L heel. Base of wound is maroon and fluctuant(L)4cm x (W)7cm. Unstageable pressure injury L Hallux. Base of wound is 100% necrotic but soft. Borders are erythematous. Periwound without induration or fluctuance.(L)2.5cm x (W)3cm. DTPI medial L malleolus. Base of wound fluctuant and maroon in colour.(L) 0.3cm x (W)1.2cm. DTPI medial L malleolus. Base of wound fluctuant and maroon in colour with Marginal erythema along borders.(L)0.3cm x (W)1.2cm. Intact blood filled blisters noted to L 1st Metatarsal laterally and head of metatarsal. Intact blood filled blisters noted to heads of L 2nd and L 3rd metatarsals. DTPI noted to posterior and lateral R Heel. Posterior R heel is maroon in colour and fluctuant at base. Laterally ,R heel is black and fluctuant at base.Periwound is boggy and non-blanchable.(L)7cm x (W)8cm. Unstageable pressure injury lateral R malleolus. Base of wound is 100% necrotic and dry.Marginal erythema along borders.Periwound is fluctuant and erythematous( L)1.2cm x (W)1.5cm. DTPI distal/lateral R foot. Base of wound is fluctuant and maroon in colour.(L) 1.3cm x (W)1.7cm. DTPI lateral R 5th metatarsal. Base of wound is maroon and fluctuant with marginal erythema along borders .(L)0.7cm x (W)1.1cm Tx.Plan: Cleanse Wound R shoulder with Saline. Apply Therahoney. Apply Cavilon Skin barrier periwound. Cover with Optifoam drsg every 3 days and prn. Cleanse R hip wound with Saline. Apply Therahoney with 4x4 Gauze. Apply Moisture Barrier Paste periwound.Cover with Optifoam drsg. Daily and prn. Apply Moisture Barrier Paste to Sacral wound and L Ischium. Cover each wound with Optifoam drsg every 3 days and prn. Apply Betadine to R humerus and R elbow . Cover each wound with Optifoam drsg. Change every 3 days and prn. Apply Betadine to wounds R heel, R malleolus and R foot . Cover each wound with Optifoam drsg every 3 days and prn. Apply Betadine to wounds L heel ,L medial malleolus and L foot. Cover each wound with Optifoam drsgs every 3 Days and prn. Air Fluidized Mattress. Reposition at least every 2hours or as tolerated. Place Pillow between knees. Off-load heels with pillow. Anshul Nava Jun 28, 2019 13:54
--- NOTE | 2019-06-28 14:26 | Cardiology Progress Note ---
Assessment/Plan Status: stable Assessment/Plan Assessment/Plan Status: stable Assessment/Plan: Assessment Elevated troponin Syncope. Elevated LFT KAREN/CKD Rhabdomyolysis Plan d/c Trend troponin Monitor on telemetry Echocardiogram pending Stress test prior to discharge Hold heparin PEG tube placement Maintain HD Abx per ID/pulm Subjective Cardiovascular: Reports: no symptoms Respiratory: Reports: no symptoms Gastrointestinal/Abdominal: Reports: no symptoms Genitourinary: Reports: no symptoms Subjective on bipap BP stable remains oliguric HD yesterday Discussions re PEG tube with family Objective Last 24 Hour Vital Signs Date Time Temp Pulse Resp B/P (MAP) Pulse Ox O2 Delivery O2 Flow Rate FiO2 06/28/19 12:00 3.0 06/28/19 12:00 87 06/28/19 12:00 97.5 90 16 130/62 (84) 100 06/28/19 12:00 Bi-pap Bi-pap 06/28/19 08:57 85 18 100 30 06/28/19 08:00 98.8 90 16 136/60 (85) 100 06/28/19 08:00 83 06/28/19 08:00 50 06/28/19 08:00 Bi-pap Bi-pap 06/28/19 06:30 100 Bi-Pap 40 06/28/19 06:30 82 17 100 30 06/28/19 04:43 89 20 100 40 06/28/19 04:00 50 06/28/19 04:00 99.1 84 16 135/59 (84) 100 06/28/19 04:00 Bi-pap Bi-pap 06/28/19 03:39 103 06/28/19 03:12 83 19 100 40 06/28/19 00:43 82 19 100 50 06/28/19 00:00 98.8 76 19 134/56 (82) 100 06/28/19 00:00 50 06/28/19 00:00 Bi-pap Bi-pap 06/27/19 23:27 84 06/27/19 22:31 78 22 100 50 06/27/19 20:32 109 22 100 50 06/27/19 20:00 98.7 88 21 106/54 (71) 100 06/27/19 20:00 50 06/27/19 20:00 Bi-pap Bi-pap 06/27/19 20:00 114 06/27/19 18:51 99 24 100 50 06/27/19 18:51 100 Bi-Pap 50 06/27/19 17:05 82 23 100 50 06/27/19 16:00 82 06/27/19 16:00 60 06/27/19 16:00 98.2 100 20 108/35 (59) 100 06/27/19 16:00 Bi-pap 06/27/19 15:15 98 29 100 55 General Appearance: no apparent distress, lethargic EENT: PERRL/EOMI, normal ENT inspection, TMs normal, pharynx normal Neck: non-tender, normal alignment, supple, normal inspection, no JVD Rhythm: NSR Cardiovascular: normal peripheral pulses, normal rate, regular rhythm Respiratory/Chest: chest wall non-tender, lungs clear, decreased breath sounds , accessory muscle use, crackles/rales, rhonchi - bilaterally Abdomen: normal bowel sounds, non tender, soft, no organomegaly Extremities: normal range of motion, non-tender, normal inspection, no calf tenderness, no swelling Neurologic: sampler ovens 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 normal, no motor/sensory deficits Intake and Output 06/27/19 06/28/19 19:00 07:00 Intake Total 593.708 ml 409.58 ml Output Total 30 ml 20 ml Balance 563.708 ml 389.58 ml Intake Oral 0 ml 0 ml IV Total 593.708 ml 409.58 ml Hemodialysis 0 ml Output Urine Total 30 ml 20 ml # Bowel Movements 4 Laboratory Tests Test 06/28/19 04:00 06/28/19 06:45 White Blood Count 16.7 K/UL (4.8-10.8) H 16.9 K/UL (4.8-10.8) H Red Blood Count 2.73 M/UL (4.20-5.40) L 2.77 M/UL (4.20-5.40) L Hemoglobin 7.5 G/DL (12.0-16.0) L 7.6 G/DL (12.0-16.0) L Hematocrit 22.3 % (37.0-47.0) L 22.8 % (37.0-47.0) L Mean Corpuscular Volume 82 FL (80-99) 82 FL (80-99) Mean Corpuscular Hemoglobin 27.4 PG (27.0-31.0) 27.4 PG (27.0-31.0) Mean Corpuscular Hemoglobin Concent 33.6 G/DL (32.0-36.0) 33.3 G/DL (32.0-36.0) Red Cell Distribution Width 11.6 % (11.6-14.8) 12.2 % (11.6-14.8) Platelet Count 149 K/UL (150-450) L 149 K/UL (150-450) L Mean Platelet Volume 9.4 FL (6.5-10.1) 8.1 FL (6.5-10.1) Neutrophils (%) (Auto) % (45.0-75.0) % (45.0-75.0) Lymphocytes (%) (Auto) % (20.0-45.0) % (20.0-45.0) Monocytes (%) (Auto) % (1.0-10.0) % (1.0-10.0) Eosinophils (%) (Auto) % (0.0-3.0) % (0.0-3.0) Basophils (%) (Auto) % (0.0-2.0) % (0.0-2.0) Differential Total Cells Counted 100 100 Neutrophils % (Manual) 77 % (45-75) H 79 % (45-75) H Lymphocytes % (Manual) 13 % (20-45) L 11 % (20-45) L Monocytes % (Manual) 10 % (1-10) 9 % (1-10) Eosinophils % (Manual) 0 % (0-3) 1 % (0-3) Basophils % (Manual) 0 % (0-2) 0 % (0-2) Band Neutrophils 0 % (0-8) 0 % (0-8) Platelet Estimate Adequate Adequate Platelet Morphology Normal Normal Polychromasia 1+ 1+ Hypochromasia 1+ 1+ Sodium Level 141 MMOL/L (136-145) Potassium Level 3.5 MMOL/L (3.5-5.1) Chloride Level 101 MMOL/L (98-107) Carbon Dioxide Level 22 MMOL/L (21-32) Anion Gap 18 mmol/L (5-15) H Blood Urea Nitrogen 78 mg/dL (7-18) H Creatinine 4.2 MG/DL (0.55-1.30) H Estimat Glomerular Filtration Rate 12.1 mL/min (>60) Glucose Level 80 MG/DL (74-106) Calcium Level 8.7 MG/DL (8.5-10.1) Total Bilirubin 2.0 MG/DL (0.2-1.0) H Direct Bilirubin 0.7 MG/DL (0.0-0.3) H Aspartate Amino Transf (AST/SGOT) 273 U/L (15-37) H Alanine Aminotransferase (ALT/SGPT) 106 U/L (12-78) H Alkaline Phosphatase 72 U/L (46-116) Total Protein 5.8 G/DL (6.4-8.2) L Albumin 3.0 G/DL (3.4-5.0) L Globulin 2.8 g/dL Albumin/Globulin Ratio 1.1 (1.0-2.7) Anisocytosis Melchor Cerna MD Jun 28, 2019 14:26
[2019-06-28 16:00] VITALS: BP 144/69
[2019-06-28 20:00] VITALS: BP 144/71
[2019-06-28] MEDS: Dyna-Hex 2% Top Sol 2oz TOPIC SCH (20:11)
[2019-06-29] VITALS: BP 141/72
[2019-06-29 04:00] VITALS: BP 149/85
[2019-06-29] MEDS: Zosyn 2.25 gm in D5W 55ml IV SCH (05:08)
[2019-06-29] MEDS: Pantoprazole 80 MG in NS 250 ML IV SCH (05:08)
[2019-06-29 06:48] LABS: HEMATOCRIT 23.5 % (37.0-47.0); HEMOGLOBIN 7.7 G/DL (12.0-16.0); MEAN CORPUSCULAR VOLUME 84 FL (80-99); PLATELET COUNT 163 K/UL (150-450); RED CELL DISTRIBUTION WIDTH 11.8 % (11.6-14.8)
[2019-06-29 06:49] LABS: WHITE BLOOD COUNT 24.6 K/UL (4.8-10.8)
[2019-06-29 07:15] LABS: ALANINE AMINOTRANSFERASE 115 U/L (12-78); ALBUMIN 2.6 G/DL (3.4-5.0); ALBUMIN/GLOBULIN RATIO 0.8 (1.0-2.7); ALKALINE PHOSPHATASE 86 U/L (46-116); ANION GAP 19 mmol/L (5-15); ASPARTATE AMINO TRANSFERASE 217 U/L (15-37); BILIRUBIN,TOTAL 2.6 MG/DL (0.2-1.0); BLOOD UREA NITROGEN 113 mg/dL (7-18); CALCIUM 8.3 MG/DL (8.5-10.1); CARBON DIOXIDE 21 MMOL/L (21-32); CHLORIDE 104 MMOL/L (98-107); CREATININE 5.4 MG/DL (0.55-1.30); POTASSIUM 3.6 MMOL/L (3.5-5.1); SODIUM 144 MMOL/L (136-145)
[2019-06-29 08:00] VITALS: BP 117/68
--- NOTE | 2019-06-29 10:39 | General Progress Note ---
Assessment/Plan Status: stable Assessment/Plan: #Rhabdomyolosis #KAREN #Acute renal failure #Uremic encephaloapathy #Anion gap metabolic acidosis #Lactic acidosis -resolved -renal US-> No obstructive nephropathy -Nephrology consulted: no IVF, for HD UF -General surgery consulted for wound care, central line insertion on 06/24 -HD per nephro. -Discussed with family at length re: clinical status, code status, feeding. okay with artificial feeding. unclear on code status but full code for now. #Left lung PNA - likely aspiration #Acute hypoxic respiratory failure s/p BiPAP - improved #Strep Viridans bacteremia #Leukocytosis #loose stools Noted to be acutely hypoxic on early AM of 06/25, requiring bipap. -s/p BiPAP -> on NC today. -CT chest, CXR with left lung infiltrate. -ABG prn. -Pulmonology following -echo negative for vegetations -ID consulted - Vanc/zosyn (06/25 -), PO Vanc -Stool for c diff pending -Worsening leukocytosis, will repeat cultures today, CXR, UA #Dysphagia -NGT for feeding for now. May need speech therapy -> PEG. #L1 vertebral fracture - likely old seen on imaging, likely old. -reassurance provided to family. #Transaminitis - downtrending ?from dehydration, abd exam benign. -continue to trend LFT's. #Type 2 NSTEMI likely demand in setting of renal failure. EKG wnl. -no need to trend. -cardiology consulted - pt will need stress test prior to d/c #Pressure wounds. -wound care Prognosis is grave. Time spent: 60 mins, >50% on pt counseling and coordination of care and chart review. Time of note doesn't reflect time of encounter. Subjective ROS Limited/Unobtainable: Yes - pt non-verbal at this time Allergies: Coded Allergies: No Known Allergies (Unverified , 06/24/19) Subjective Pt non-verbal at this time, unable to obtain ROS 2/2 clinical picture. No acute events overnight per nurse. Objective Last 24 Hour Vital Signs Date Time Temp Pulse Resp B/P (MAP) Pulse Ox O2 Delivery O2 Flow Rate FiO2 06/29/19 08:00 3.0 06/29/19 08:00 97.7 86 21 117/68 (84) 100 06/29/19 08:00 Nasal Cannula 2.0 Nasal Cannula 2.0 06/29/19 07:55 86 06/29/19 04:00 2.0 06/29/19 04:00 97.7 99 18 149/85 (106) 100 06/29/19 04:00 88 06/29/19 04:00 Nasal Cannula 2.0 Nasal Cannula 2.0 06/29/19 00:00 85 06/29/19 00:00 97.4 76 16 141/72 (95) 97 06/29/19 00:00 3.0 06/29/19 00:00 Nasal Cannula 3.0 Nasal Cannula 3.0 06/28/19 20:00 2.0 06/28/19 20:00 98.1 87 18 144/71 (95) 98 06/28/19 20:00 104 06/28/19 20:00 Nasal Cannula 2.0 Nasal Cannula 2.0 06/28/19 18:49 97 Nasal Cannula 2.0 28 06/28/19 16:00 97.5 110 16 144/69 (94) 100 06/28/19 16:00 2.0 06/28/19 16:00 109 06/28/19 16:00 Bi-pap Bi-pap 06/28/19 12:00 3.0 06/28/19 12:00 87 06/28/19 12:00 97.5 90 16 130/62 (84) 100 06/28/19 12:00 Bi-pap Bi-pap Intake and Output 06/28/19 06/29/19 19:00 07:00 Intake Total 275.20513 ml 384.577 ml Output Total 20 ml 250 ml Balance 255.55206 ml 134.577 ml Intake Oral 0 ml IV Total 275.77286 ml 384.577 ml Output Urine Total 20 ml 250 ml # Bowel Movements 3 Laboratory Tests 06/29/19 05:30: White Blood Count 24.6*H, Red Blood Count 2.80L, Hemoglobin 7.7L, Hematocrit 23.5L, Mean Corpuscular Volume 84, Mean Corpuscular Hemoglobin 27.4, Mean Corpuscular Hemoglobin Concent 32.7, Red Cell Distribution Width 11.8, Platelet Count 163, Mean Platelet Volume 8.1, Neutrophils (%) (Auto) , Lymphocytes (%) ( Auto) , Monocytes (%) (Auto) , Eosinophils (%) (Auto) , Basophils (%) (Auto) , Differential Total Cells Counted 100, Neutrophils % (Manual) 83H, Lymphocytes % (Manual) 7L, Monocytes % (Manual) 8, Eosinophils % (Manual) 2, Basophils % ( Manual) 0, Band Neutrophils 0, Platelet Estimate Adequate, Platelet Morphology Normal, Hypochromasia 1+, Sodium Level 144, Potassium Level 3.6, Chloride Level 104, Carbon Dioxide Level 21, Anion Gap 19H, Blood Urea Nitrogen 113H, Creatinine 5.4H, Estimat Glomerular Filtration Rate 9.1, Glucose Level 105, Calcium Level 8.3L, Total Bilirubin 2.6H, Direct Bilirubin 1.0H, Aspartate Amino Transf (AST/SGOT) 217H, Alanine Aminotransferase (ALT/SGPT) 115H, Alkaline Phosphatase 86, Total Protein 5.8L, Albumin 2.6L, Globulin 3.2, Albumin /Globulin Ratio 0.8L Height (Feet): 5 Height (Inches): 4.00 Weight (Pounds): 115 Objective General Appearance: thin, cachetic, non-communicative, awake but does not appear alert HEENT: NCAT, neck supple, NG tube in place Cardiovascular: normal rate, regular rhythm Respiratory/Chest: lungs clear, diminished breath sounds, no accessory muscle usage at this time, on NC at this time Abdomen: non tender, soft Neuro: unable to fully assess 2/2 pt participation, pt does not respond to name Ext: contracted b/l, hemo cath in LLE C/D/I Lisa Brewster M.D. Jun 29, 2019 10:38
[2019-06-29 12:00] VITALS: BP 107/54
[2019-06-29] MEDS ORDERED: Tubing IV Secondary IV ONE ×3 (12:01→20:32)
[2019-06-29] MEDS ORDERED: NS 275ml ONE ×2 (12:01→12:05)
[2019-06-29] MEDS ORDERED: NS 500ML ONE (12:05)
--- NOTE | 2019-06-29 12:19 | Diagnostic Imaging Report ---
EXAM: XR Chest, 1 View CLINICAL HISTORY: NGT TECHNIQUE: Frontal view of the chest. COMPARISON: No relevant prior studies available. FINDINGS: Lungs: Bilateral interstitial infiltrates, left greater than right. Pleural space: Query pleural thickening and calcifications. No pneumothorax. Heart: Cardiomegaly. Mediastinum: Unremarkable. Bones/joints: No acute fracture. Other findings: Single view 06/29/19 at 744. Spinal compression deformities of uncertain chronicity. IMPRESSION: Bilateral interstitial infiltrates, left greater than right.
--- NOTE | 2019-06-29 12:20 | Diagnostic Imaging Report ---
EXAM: XR Abdomen, 1 View CLINICAL HISTORY: F/U TECHNIQUE: Frontal supine view of the abdomen/pelvis. COMPARISON: No relevant prior studies available. FINDINGS: Gastrointestinal tract: Paucity of bowel gas. Bones/joints: Spinal compression deformities. Tubes, lines and devices: Enteric tube tip at the gastroduodenal junction. Other findings: Single view 06/29/19 at 909. IMPRESSION: Enteric tube tip at the gastroduodenal junction.
--- NOTE | 2019-06-29 12:56 | Infectious Diseases Prog Note ---
Assessment/Plan Assessment/Plan ASSESSMENT AND PLAN: 1. streptococcus viridans bacteremia, ? endocarditis, aspiration pna/hcap, atx, sepsis, leukocytosis, fevers, sob, arf, rhabdomyolysis + diarrhea with worsening leukocytosis - ? c.diff. - iv vancomycin and zosyn, add po vancomycin - reculture patient, monitor labs and chest x-ray, check c.diff. - TTE - no vegetation mentioned in report - respiratory status improved 2. Acute renal failure, crf - on hemodialysis 3. Rhabdomyolysis - per primary and renal medicine 4. Elevated LFTs. 5. CAD. 6. Non-STEMI. 7. No history of diabetes or hypertension. 8. Fall. 9. Altered level of consciousness. 10. Lumbar spine fracture. 11. No known drug allergies. 12. Social history is negative. 13. Family history is noncontributory. 14. MAR was noted. 15. Case was discussed with RN and family 16. Continue treatment per primary consultants. Subjective Constitutional: Denies: fever HEENT: Reports: congestion - less Respiratory: Reports: shortness of breath - less Cardiovascular: Denies: chest pain Gastrointestinal/Abdominal: Reports: diarrhea, other - liquid stool per RN; Denies: nausea, vomiting Genitourinary: Reports: other - + hargrove - urine clear Neurologic: Reports: weakness, confusion, other - opens eyes Psychiatric: Reports: other - NA Skin: Denies: rash Endocrine: Reports: other - NA Hematologic: Denies: bleeding Musculoskeletal: Reports: other - NA Allergies: Coded Allergies: No Known Allergies (Unverified , 06/24/19) Objective Vital Signs Last 24 Hour Vital Signs Date Time Temp Pulse Resp B/P (MAP) Pulse Ox O2 Delivery O2 Flow Rate FiO2 06/29/19 09:30 100 Nasal Cannula 2.0 28 06/29/19 08:00 3.0 06/29/19 08:00 97.7 86 21 117/68 (84) 100 06/29/19 08:00 Nasal Cannula 2.0 Nasal Cannula 2.0 06/29/19 07:55 86 06/29/19 04:00 2.0 06/29/19 04:00 97.7 99 18 149/85 (106) 100 06/29/19 04:00 88 06/29/19 04:00 Nasal Cannula 2.0 Nasal Cannula 2.0 06/29/19 00:00 85 3/7/20 00:00 97.4 76 16 141/72 (95) 97 06/29/19 00:00 3.0 06/29/19 00:00 Nasal Cannula 3.0 Nasal Cannula 3.0 06/28/19 20:00 2.0 06/28/19 20:00 98.1 87 18 144/71 (95) 98 06/28/19 20:00 104 06/28/19 20:00 Nasal Cannula 2.0 Nasal Cannula 2.0 06/28/19 18:49 97 Nasal Cannula 2.0 28 06/28/19 16:00 97.5 110 16 144/69 (94) 100 06/28/19 16:00 2.0 06/28/19 16:00 109 06/28/19 16:00 Bi-pap Bi-pap Height (Feet): 5 Height (Inches): 4.00 Weight (Pounds): 115 General Appearance: no acute distress HEENT: normocephalic, atraumatic, anicteric, supple, no JVD Respiratory/Chest: crackles/rales, rhonchi - bilaterally Cardiovascular: normal rate, regular rhythm, no gallop/murmur, no JVD Abdomen: normal bowel sounds, soft, non tender, no organomegaly, non distended Genitourinary: other - + hargrove - urine clear Extremities: no cyanosis Skin: no rash 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 There is considerable interstitial and airspace disease throughout the left lung, however. Less extensive interstitial congestion is seen in the right lung. The heart size is normal. The aorta is tortuous and calcified Impression: Interim reexpansion of previously atelectatic left lung. However, there is considerable infiltrate and/or edema throughout the left lung. There is also persistent mild generalized interstitial congestion in the right lung CT Chest: IMPRESSION: Extensive airspace consolidation in the left lung involving the left perihilar, upper lobe and left lower lobe. Findings suspicious for pneumonia, especially aspiration given the abrupt onset. Please correlate clinically. Partial atelectasis of the left lower lobe also noted. Atherosclerotic vascular disease. Degenerative changes of the spine and scoliosis. CT abdomen and pelvis: IMPRESSION: No acute findings appreciated. Study limited by the lack of intravenous oral contrast as well as extensive motion artifact. 1.6 cm probable cystic lesion in the pancreatic tail. This requires further evaluation with the contrast CT or MR. Status post previous partial bowel resection. 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 Degenerative changes as described above. Laboratory Tests Test 06/29/19 05:30 White Blood Count 24.6 K/UL (4.8-10.8) *H Red Blood Count 2.80 M/UL (4.20-5.40) L Hemoglobin 7.7 G/DL (12.0-16.0) L Hematocrit 23.5 % (37.0-47.0) L Mean Corpuscular Volume 84 FL (80-99) Mean Corpuscular Hemoglobin 27.4 PG (27.0-31.0) Mean Corpuscular Hemoglobin Concent 32.7 G/DL (32.0-36.0) Red Cell Distribution Width 11.8 % (11.6-14.8) Platelet Count 163 K/UL (150-450) Mean Platelet Volume 8.1 FL (6.5-10.1) Neutrophils (%) (Auto) % (45.0-75.0) Lymphocytes (%) (Auto) % (20.0-45.0) Monocytes (%) (Auto) % (1.0-10.0) Eosinophils (%) (Auto) % (0.0-3.0) Basophils (%) (Auto) % (0.0-2.0) Differential Total Cells Counted 100 Neutrophils % (Manual) 83 % (45-75) H Lymphocytes % (Manual) 7 % (20-45) L Monocytes % (Manual) 8 % (1-10) Eosinophils % (Manual) 2 % (0-3) Basophils % (Manual) 0 % (0-2) Band Neutrophils 0 % (0-8) Platelet Estimate Adequate Platelet Morphology Normal Hypochromasia 1+ Sodium Level 144 MMOL/L (136-145) Potassium Level 3.6 MMOL/L (3.5-5.1) Chloride Level 104 MMOL/L (98-107) Carbon Dioxide Level 21 MMOL/L (21-32) Anion Gap 19 mmol/L (5-15) H Blood Urea Nitrogen 113 mg/dL (7-18) H Creatinine 5.4 MG/DL (0.55-1.30) H Estimat Glomerular Filtration Rate 9.1 mL/min (>60) Glucose Level 105 MG/DL (74-106) Calcium Level 8.3 MG/DL (8.5-10.1) L Total Bilirubin 2.6 MG/DL (0.2-1.0) H Direct Bilirubin 1.0 MG/DL (0.0-0.3) H Aspartate Amino Transf (AST/SGOT) 217 U/L (15-37) H Alanine Aminotransferase (ALT/SGPT) 115 U/L (12-78) H Alkaline Phosphatase 86 U/L (46-116) Total Protein 5.8 G/DL (6.4-8.2) L Albumin 2.6 G/DL (3.4-5.0) L Globulin 3.2 g/dL Albumin/Globulin Ratio 0.8 (1.0-2.7) L Current Medications Medications (Trade) Dose Ordered Sig/Joan Route PRN Reason Start Time Stop Time Status Last Admin Dose Admin Acetaminophen (Tylenol) 650 mg Q4H PRN ORAL Mild Pain (Pain Scale 1-3) 06/24/19 19:52 07/24/19 19:51 Acetylcysteine (Mucomyst) 100 mg Q4HRT PRN HHN Shortness of Breath 06/25/19 23:45 07/25/19 22:59 Albumin Human 100 ml @ 100 mls/hr NEEDED PRN IV DIALYSIS 06/27/19 14:00 07/27/19 13:59 Albuterol Sulfate (Proventil) 2.5 mg Q4HR PRN HHN Shortness of Breath 06/25/19 23:45 06/30/19 20:59 Chlorhexidine Gluconate (Cari-Hex 2%) 1 applic DAILY@2000 TOPIC 06/26/19 20:00 07/26/19 19:59 06/28/19 20:11 Dextrose (Dextrose 50%) 25 ml Q30M PRN IV Hypoglycemia 06/24/19 19:52 07/24/19 19:51 Dextrose (Dextrose 50%) 50 ml Q30M PRN IV Hypoglycemia 06/24/19 19:52 07/24/19 19:51 Diphenhydramine HCl (Benadryl) 25 mg Q6H PRN ORAL Itching/Pruritis 06/24/19 19:52 07/24/19 19:51 Hydromorphone HCl (Dilaudid) 0.5 mg Q3H PRN IVP Pain 4-10 06/25/19 14:30 07/02/19 14:29 Ondansetron HCl (Zofran) 4 mg Q6H PRN IVP Nausea & Vomiting 06/24/19 19:52 07/24/19 19:51 Pantoprazole (Protonix) 40 mg DAILY IVP 06/30/19 09:00 07/30/19 08:59 Piperacillin Sod/ Tazobactam Sod 2.25 gm/Dextrose 55 ml @ 110 mls/hr Q8HR IV 06/25/19 22:00 06/30/19 21:59 06/29/19 05:08 Vancomycin HCl (Vanco rx to dose) 1 ea DAILY PRN MISC Per rx protocol 06/25/19 21:00 07/25/19 20:59 Vancomycin HCl 1 gm/Dextrose 275 ml @ 183.708 mls/hr ONCE ONCE IVPB 06/29/19 18:00 06/29/19 19:29 Ana Rosado MD Jun 29, 2019 12:56
[2019-06-29] MEDS: Piperacillin/Tazobactam 2.25 GM in D5W 55 ML IV SCH ×2 (14:34→21:25)
[2019-06-29] MEDS: Vancomycin oral 125mg/2.5ml ORAL SCH ×3 (14:34→21:30)
[2019-06-29 16:00] VITALS: BP 165/79
--- NOTE | 2019-06-29 16:45 | Consultation ---
DATE OF CONSULTATION: 06/29/2019 CONSULTING PHYSICIAN: Jun Mena M.D. CHIEF COMPLAINT: Dysphagia. HISTORY OF PRESENT ILLNESS: Most of the history per chart. Elderly woman, senior living patient, was brought to the hospital with complaint of altered mental status, shortness of breath. Initially was on BiPAP, now on nasal cannula. GI consult requested for evaluation of possible G-tube placement. PAST MEDICAL HISTORY: Significant for history of renal failure, coronary artery disease, and pulmonary edema. ALLERGIES: No known drug allergies. MEDICATIONS: Please see medication reconciliation list. SOCIAL HISTORY: Currently lives in a senior living. No recent history of tobacco, alcohol, or drug abuse. FAMILY HISTORY: Noncontributory. PAST SURGICAL HISTORY: Unknown. PHYSICAL EXAMINATION: VITAL SIGNS: Temperature 97.7, pulse is 99, respirations 18, blood pressure is 149/85. HEENT: Normocephalic, atraumatic. Sclerae anicteric. NECK: Supple. No evidence of obvious lymphadenopathy. CARDIOVASCULAR: Regular rate and rhythm. Plus S1 and S2. LUNGS: Decreased breath sounds bilaterally based on the supine exam. ABDOMEN: Soft, nontender. No rebound. No guarding. No peritoneal sign. EXTREMITIES: No cyanosis. No clubbing. No edema. LABORATORY DATA: Sodium 144, potassium 3.6, BUN is 113, creatinine is 5.4. Bilirubin is 2.6, direct bilirubin is 1. AST 217, ALT 115, alkaline phosphatase is 86. Troponin elevated at 1.15. White count is 24,000, hemoglobin 7.7, platelet count is 163. ASSESSMENT AND PLAN: The patient is an 88-year-old female with numerous medical problems at this time with altered mental status, shortness of breath, leukocytosis, anemia, renal failure, abnormal liver function tests. PLAN: At this time, the patient is not eligible for G-tube, given her current white count of 24,000. Troponin elevated over 1. If she needs a PEG, she needs cardiac clearance and infectious clearance. Today, I placed a Dobhoff tube at the bedside. We are going to do a chest x-ray to see the Dobhoff tube in the right place and if it is, we are going to start tube feeding and monitor her. We are going to order repeat labs for tomorrow including CBC and CMP. I want to thank, Dr. Frederick, for this kind referral. Jun Mena M.D. DR: JUAN JOB#: [id number] CC: Meera Frederick M.D.; Fax#: [phone]
[2019-06-29] MEDS ORDERED: Vancomycin 1gm/D5W 275ml IVPB ONE ×4 (18:00→21:00)
--- NOTE | 2019-06-29 18:26 | Pulmonology Progress Note ---
Assessment/Plan Assessment/Plan IMPRESSION: 1. Extensive left lung pneumonia. 2. Pulmonary edema. 3. respiratory failure; now off BiPAP DISCUSSION: Continue broad-spectrum antibiotics. Dialysis per renal Use BiPAP prn. Supplemental O2. will follow carefully. Discussed with family at bedside. Prognosis is grave. Abrahan Samaniego M.D. Subjective Interval Events: None new; off BiPAP Constitutional: Reports: no symptoms HEENT: Repors: no symptoms Respiratory: Reports: no symptoms Cardiovascular: Reports: no symptoms Gastrointestinal/Abdominal: Reports: no symptoms Allergies: Coded Allergies: No Known Allergies (Unverified , 06/24/19) Objective Last 24 Hour Vital Signs Date Time Temp Pulse Resp B/P (MAP) Pulse Ox O2 Delivery O2 Flow Rate FiO2 06/29/19 16:00 3.0 06/29/19 16:00 Nasal Cannula 2.0 Nasal Cannula 2.0 06/29/19 16:00 97.1 95 18 165/79 (107) 99 06/29/19 15:31 97 06/29/19 12:00 Nasal Cannula 2.0 Nasal Cannula 2.0 06/29/19 12:00 97.2 85 20 107/54 (71) 100 06/29/19 12:00 3.0 06/29/19 11:38 90 06/29/19 09:30 100 Nasal Cannula 2.0 28 06/29/19 08:00 3.0 06/29/19 08:00 97.7 86 21 117/68 (84) 100 06/29/19 08:00 Nasal Cannula 2.0 Nasal Cannula 2.0 06/29/19 07:55 86 06/29/19 04:00 2.0 06/29/19 04:00 97.7 99 18 149/85 (106) 100 06/29/19 04:00 88 06/29/19 04:00 Nasal Cannula 2.0 Nasal Cannula 2.0 06/29/19 00:00 85 06/29/19 00:00 97.4 76 16 141/72 (95) 97 06/29/19 00:00 3.0 06/29/19 00:00 Nasal Cannula 3.0 Nasal Cannula 3.0 06/28/19 20:00 2.0 06/28/19 20:00 98.1 87 18 144/71 (95) 98 06/28/19 20:00 104 06/28/19 20:00 Nasal Cannula 2.0 Nasal Cannula 2.0 06/28/19 18:49 97 Nasal Cannula 2.0 28 Intake and Output 06/28/19 06/29/19 19:00 07:00 Intake Total 275.97810 ml 384.577 ml Output Total 20 ml 250 ml Balance 255.63453 ml 134.577 ml Intake Oral 0 ml IV Total 275.68782 ml 384.577 ml Output Urine Total 20 ml 250 ml # Bowel Movements 3 General Appearance: no acute distress HEENT: normocephalic Respiratory/Chest: chest wall non-tender Cardiovascular: normal peripheral pulses Abdomen: normal bowel sounds Laboratory Tests 06/29/19 05:30: White Blood Count 24.6*H, Red Blood Count 2.80L, Hemoglobin 7.7L, Hematocrit 23.5L, Mean Corpuscular Volume 84, Mean Corpuscular Hemoglobin 27.4, Mean Corpuscular Hemoglobin Concent 32.7, Red Cell Distribution Width 11.8, Platelet Count 163, Mean Platelet Volume 8.1, Neutrophils (%) (Auto) , Lymphocytes (%) ( Auto) , Monocytes (%) (Auto) , Eosinophils (%) (Auto) , Basophils (%) (Auto) , Differential Total Cells Counted 100, Neutrophils % (Manual) 83H, Lymphocytes % (Manual) 7L, Monocytes % (Manual) 8, Eosinophils % (Manual) 2, Basophils % ( Manual) 0, Band Neutrophils 0, Platelet Estimate Adequate, Platelet Morphology Normal, Hypochromasia 1+, Sodium Level 144, Potassium Level 3.6, Chloride Level 104, Carbon Dioxide Level 21, Anion Gap 19H, Blood Urea Nitrogen 113H, Creatinine 5.4H, Estimat Glomerular Filtration Rate 9.1, Glucose Level 105, Calcium Level 8.3L, Total Bilirubin 2.6H, Direct Bilirubin 1.0H, Aspartate Amino Transf (AST/SGOT) 217H, Alanine Aminotransferase (ALT/SGPT) 115H, Alkaline Phosphatase 86, Total Protein 5.8L, Albumin 2.6L, Globulin 3.2, Albumin /Globulin Ratio 0.8L Current Medications Medications (Trade) Dose Ordered Sig/Joan Route PRN Reason Start Time Stop Time Status Last Admin Dose Admin Acetaminophen (Tylenol) 650 mg Q4H PRN ORAL Mild Pain (Pain Scale 1-3) 06/24/19 19:52 07/24/19 19:51 Acetylcysteine (Mucomyst) 100 mg Q4HRT PRN HHN Shortness of Breath 06/25/19 23:45 07/25/19 22:59 Albumin Human 100 ml @ 100 mls/hr NEEDED PRN IV DIALYSIS 06/27/19 14:00 07/27/19 13:59 Albuterol Sulfate (Proventil) 2.5 mg Q4HR PRN HHN Shortness of Breath 06/25/19 23:45 06/30/19 20:59 Chlorhexidine Gluconate (Cari-Hex 2%) 1 applic DAILY@2000 TOPIC 06/26/19 20:00 07/26/19 19:59 06/28/19 20:11 Dextrose (Dextrose 50%) 25 ml Q30M PRN IV Hypoglycemia 06/24/19 19:52 07/24/19 19:51 Dextrose (Dextrose 50%) 50 ml Q30M PRN IV Hypoglycemia 06/24/19 19:52 07/24/19 19:51 Diphenhydramine HCl (Benadryl) 25 mg Q6H PRN ORAL Itching/Pruritis 06/24/19 19:52 07/24/19 19:51 Hydromorphone HCl (Dilaudid) 0.5 mg Q3H PRN IVP Pain 4-10 06/25/19 14:30 07/02/19 14:29 Ondansetron HCl (Zofran) 4 mg Q6H PRN IVP Nausea & Vomiting 06/24/19 19:52 07/24/19 19:51 Pantoprazole (Protonix) 40 mg DAILY IVP 06/30/19 09:00 07/30/19 08:59 Piperacillin Sod/ Tazobactam Sod 2.25 gm/Dextrose 55 ml @ 110 mls/hr Q8HR IV 06/29/19 14:00 07/04/19 13:59 06/29/19 14:34 Vancomycin HCl (Firvanq) 125 mg FOUR TIMES A DAY ORAL 06/29/19 14:00 07/06/19 13:59 06/29/19 18:16 Vancomycin HCl (Vanco rx to dose) 1 ea DAILY PRN MISC Per rx protocol 06/25/19 21:00 07/25/19 20:59 Vancomycin HCl 1 gm/Dextrose 275 ml @ 183.708 mls/hr ONCE ONCE IVPB 06/29/19 18:00 06/29/19 19:29 06/29/19 18:16 Abrahan Samaniego MD Jun 29, 2019 18:26
[2019-06-29 20:00] VITALS: BP 134/69
[2019-06-29] MEDS: Dyna-Hex 2% Top Sol 2oz TOPIC SCH (20:40)
--- NOTE | 2019-06-29 22:04 | Surgery Progress Note ---
Surgery Progress Note Subjective Procedure Performed Left femoral temporary hemodialysis catheter insertion Additional Comments no acute events labs noted Objective Last 24 Hour Vital Signs Date Time Temp Pulse Resp B/P (MAP) Pulse Ox O2 Delivery O2 Flow Rate FiO2 06/29/19 20:15 112 20 97 Nasal Cannula 2.0 28 06/29/19 20:15 97 Nasal Cannula 2.0 28 06/29/19 16:00 3.0 06/29/19 16:00 Nasal Cannula 2.0 Nasal Cannula 2.0 06/29/19 16:00 97.1 95 18 165/79 (107) 99 06/29/19 15:31 97 06/29/19 12:00 Nasal Cannula 2.0 Nasal Cannula 2.0 06/29/19 12:00 97.2 85 20 107/54 (71) 100 06/29/19 12:00 3.0 06/29/19 11:38 90 06/29/19 09:30 100 Nasal Cannula 2.0 28 06/29/19 08:00 3.0 06/29/19 08:00 97.7 86 21 117/68 (84) 100 06/29/19 08:00 Nasal Cannula 2.0 Nasal Cannula 2.0 06/29/19 07:55 86 06/29/19 04:00 2.0 06/29/19 04:00 97.7 99 18 149/85 (106) 100 06/29/19 04:00 88 06/29/19 04:00 Nasal Cannula 2.0 Nasal Cannula 2.0 06/29/19 00:00 85 06/29/19 00:00 97.4 76 16 141/72 (95) 97 06/29/19 00:00 3.0 06/29/19 00:00 Nasal Cannula 3.0 Nasal Cannula 3.0 I&O Intake and Output 06/28/19 06/29/19 19:00 07:00 Intake Total 275.77661 ml 384.577 ml Output Total 20 ml 250 ml Balance 255.00679 ml 134.577 ml Intake Oral 0 ml IV Total 275.24008 ml 384.577 ml Output Urine Total 20 ml 250 ml # Bowel Movements 3 Dressing: other Wound: other Drains: other Cardiovascular: RSR Respiratory: decreased breath sounds Abdomen: soft, present bowel sounds Extremities: no cyanosis Laboratory Tests Test 06/29/19 05:30 White Blood Count 24.6 K/UL (4.8-10.8) *H Red Blood Count 2.80 M/UL (4.20-5.40) L Hemoglobin 7.7 G/DL (12.0-16.0) L Hematocrit 23.5 % (37.0-47.0) L Mean Corpuscular Volume 84 FL (80-99) Mean Corpuscular Hemoglobin 27.4 PG (27.0-31.0) Mean Corpuscular Hemoglobin Concent 32.7 G/DL (32.0-36.0) Red Cell Distribution Width 11.8 % (11.6-14.8) Platelet Count 163 K/UL (150-450) Mean Platelet Volume 8.1 FL (6.5-10.1) Neutrophils (%) (Auto) % (45.0-75.0) Lymphocytes (%) (Auto) % (20.0-45.0) Monocytes (%) (Auto) % (1.0-10.0) Eosinophils (%) (Auto) % (0.0-3.0) Basophils (%) (Auto) % (0.0-2.0) Differential Total Cells Counted 100 Neutrophils % (Manual) 83 % (45-75) H Lymphocytes % (Manual) 7 % (20-45) L Monocytes % (Manual) 8 % (1-10) Eosinophils % (Manual) 2 % (0-3) Basophils % (Manual) 0 % (0-2) Band Neutrophils 0 % (0-8) Platelet Estimate Adequate Platelet Morphology Normal Hypochromasia 1+ Sodium Level 144 MMOL/L (136-145) Potassium Level 3.6 MMOL/L (3.5-5.1) Chloride Level 104 MMOL/L (98-107) Carbon Dioxide Level 21 MMOL/L (21-32) Anion Gap 19 mmol/L (5-15) H Blood Urea Nitrogen 113 mg/dL (7-18) H Creatinine 5.4 MG/DL (0.55-1.30) H Estimat Glomerular Filtration Rate 9.1 mL/min (>60) Glucose Level 105 MG/DL (74-106) Calcium Level 8.3 MG/DL (8.5-10.1) L Total Bilirubin 2.6 MG/DL (0.2-1.0) H Direct Bilirubin 1.0 MG/DL (0.0-0.3) H Aspartate Amino Transf (AST/SGOT) 217 U/L (15-37) H Alanine Aminotransferase (ALT/SGPT) 115 U/L (12-78) H Alkaline Phosphatase 86 U/L (46-116) Total Protein 5.8 G/DL (6.4-8.2) L Albumin 2.6 G/DL (3.4-5.0) L Globulin 3.2 g/dL Albumin/Globulin Ratio 0.8 (1.0-2.7) L Plan Problems: (1) Fall Assessment & Plan: 88 year old female s/p fall now with renal insufficiency requiring HD spoke with family. she has known CKD multiple decubitus ulcers from being down malnutrition line placed see documentation trend labs abx HD thank you prognosis guarded family at bedside cxr noted pna worsening (2) Altered level of consciousness (3) Fracture of lumbar spine Assessment & Plan: Lungs: There is increased density at the lung bases likely atelectasis. Aorta is moderately calcified. There is a small hiatal hernia.. Liver: Grossly unremarkable. There is artifact limiting evaluation in addition to the fact that no IV or oral contrast was given for this examination. Gallbladder/biliary system: Grossly unremarkable. Spleen: Unremarkable Pancreas: In the area of the pancreatic tail there is a 1.6 cm nodular density which may be cystic. Further evaluation is recommended. Kidneys/Bladder: Vascular calcifications are quite extensive and extend to the hilum of both kidneys. Evaluation for punctate nonobstructive stones is limited in this setting but no definite stones seen. There is no hydronephrosis. Extensive breathing motion limiting evaluation.. Adrenal glands: Unremarkable Bowel: Patient's prior partial bowel resection in the right lower abdomen with anastomotic sutures noted. There is no evidence of a bowel obstruction or inflammatory changes. Appendix is not seen definitely but there are no signs of appendicitis. A few diverticula are noted within the colon. Aorta/IVC: There is a severe calcification of aorta and multiple branches of the aorta. Peritoneum: There is no free fluid. Bones: Bones are diffusely osteopenic. Multiple compression fracture deformities of several vertebra noted including lower thoracic vertebra and L1. There is narrowing of intervertebral discs and accompanying endplate osteophyte formation. Hypertrophied facet joints also demonstrated. Scoliosis of the lower thoracic spine convex to the right and left convex lumbar scoliosis noted. IMPRESSION: No acute findings appreciated. Study limited by the lack of intravenous oral contrast as well as extensive motion artifact. 1.6 cm probable cystic lesion in the pancreatic tail. This requires further evaluation with the contrast CT or MR. Status post previous partial bowel resection. 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 Degenerative changes as described above. (4) Rhabdomyolysis (5) KAREN (acute kidney injury) (6) Decubitus skin ulcer Assessment & Plan: Pt presented on admission with multiple pressure injuries. Pt's niece Sarah stated pt lives alone and found pt laying on her R side on floor in patient's home.Niece believes pt has been laying on floor for approx 5 days. DTPI noted to R cheek. Base of wound is purple with marginal erythema along borders.(L)1.2cm x (W)1.6cm. Unstageable pressure injury R shoulder. Base of wound is 100% necrotic with marginal erythema along borders.(L)4.8cm x (W).3.5cm . DTPI R humerus. Base of wound is fluctuant and maroon in colour with surrounding erythema. (L)10.6cm x (W)3.1cm. DTPI R elbow.Base of wound is indurated with scattered areas that are purple in colour. An area of fluctuance in center. Marginal erythema along borders.(L) 5.3cm x (W)10.4cm. Partially opened Sacral DTPI. Base of wound is purple with surrounding erythema. Partial open wound cleft that is corby and moist.(L)5.3cm x (W) 4.5cm.NO odor or exudate noted. Non-blanching erythema periwound. DTPI L ischium . Base of wound is purple and indurated.(L)6cm x (W)7.5cm. Unstageable pressure injury R hip. Base of wound is 75% necrotic, 25% mixed erythema and slough. Borders are moist,soft with scattered areas that are black. Periwound is dusky and indurated.No odor or exudate noted. DTPI at posterior and medial aspect of L heel. Base of wound is maroon and fluctuant(L)4cm x (W)7cm. Unstageable pressure injury L Hallux. Base of wound is 100% necrotic but soft. Borders are erythematous. Periwound without induration or fluctuance.(L)2.5cm x (W)3cm. DTPI medial L malleolus. Base of wound fluctuant and maroon in colour.(L) 0.3cm x (W)1.2cm. DTPI medial L malleolus. Base of wound fluctuant and maroon in colour with Marginal erythema along borders.(L)0.3cm x (W)1.2cm. Intact blood filled blisters noted to L 1st Metatarsal laterally and head of metatarsal. Intact blood filled blisters noted to heads of L 2nd and L 3rd metatarsals. DTPI noted to posterior and lateral R Heel. Posterior R heel is maroon in colour and fluctuant at base. Laterally ,R heel is black and fluctuant at base.Periwound is boggy and non-blanchable.(L)7cm x (W)8cm. Unstageable pressure injury lateral R malleolus. Base of wound is 100% necrotic and dry.Marginal erythema along borders.Periwound is fluctuant and erythematous( L)1.2cm x (W)1.5cm. DTPI distal/lateral R foot. Base of wound is fluctuant and maroon in colour.(L) 1.3cm x (W)1.7cm. DTPI lateral R 5th metatarsal. Base of wound is maroon and fluctuant with marginal erythema along borders .(L)0.7cm x (W)1.1cm Tx.Plan: Cleanse Wound R shoulder with Saline. Apply Therahoney. Apply Cavilon Skin barrier periwound. Cover with Optifoam drsg every 3 days and prn. Cleanse R hip wound with Saline. Apply Therahoney with 4x4 Gauze. Apply Moisture Barrier Paste periwound.Cover with Optifoam drsg. Daily and prn. Apply Moisture Barrier Paste to Sacral wound and L Ischium. Cover each wound with Optifoam drsg every 3 days and prn. Apply Betadine to R humerus and R elbow . Cover each wound with Optifoam drsg. Change every 3 days and prn. Apply Betadine to wounds R heel, R malleolus and R foot . Cover each wound with Optifoam drsg every 3 days and prn. Apply Betadine to wounds L heel ,L medial malleolus and L foot. Cover each wound with Optifoam drsgs every 3 Days and prn. Air Fluidized Mattress. Reposition at least every 2hours or as tolerated. Place Pillow between knees. Off-load heels with pillow. Anshul Nava Jun 29, 2019 22:04
[2019-06-30] VITALS (7 sets, daily range): BP systolic 150–172; BP diastolic 60–95
[2019-06-30] MEDS: Piperacillin/Tazobactam 2.25 GM in D5W 55 ML IV SCH ×2 (06:54→14:03)
[2019-06-30 07:22] LABS: HEMATOCRIT 23.2 % (37.0-47.0); HEMOGLOBIN 7.5 G/DL (12.0-16.0); MEAN CORPUSCULAR VOLUME 84 FL (80-99); PLATELET COUNT 140 K/UL (150-450); RED BLOOD COUNT 2.76 M/UL (4.20-5.40); RED CELL DISTRIBUTION WIDTH 12.4 % (11.6-14.8)
--- NOTE | 2019-06-30 07:52 | Pulmonology Progress Note ---
Assessment/Plan Assessment/Plan IMPRESSION: 1. Extensive left lung pneumonia. 2. Pulmonary edema. 3. Respiratory failure; now off BiPAP DISCUSSION: Continue broad-spectrum antibiotics. Dialysis per renal Use BiPAP prn. Supplemental O2. I will follow carefully. Abrahan Samaniego M.D. Subjective Interval Events: On nasal O2; looking better Constitutional: Reports: no symptoms HEENT: Repors: no symptoms Respiratory: Reports: no symptoms Cardiovascular: Reports: no symptoms Gastrointestinal/Abdominal: Reports: no symptoms Allergies: Coded Allergies: No Known Allergies (Unverified , 06/24/19) Objective Last 24 Hour Vital Signs Date Time Temp Pulse Resp B/P (MAP) Pulse Ox O2 Delivery O2 Flow Rate FiO2 06/30/19 04:00 97.9 94 17 154/77 (102) 100 06/30/19 04:00 2.0 06/30/19 04:00 Nasal Cannula 2.0 Nasal Cannula 2.0 Nasal Cannula 2.0 06/30/19 04:00 114 06/30/19 00:00 98.5 94 18 162/92 (115) 99 06/30/19 00:00 Nasal Cannula 3.0 Nasal Cannula 3.0 Nasal Cannula 3.0 06/30/19 00:00 116 06/29/19 20:15 112 20 97 Nasal Cannula 2.0 28 06/29/19 20:15 97 Nasal Cannula 2.0 28 06/29/19 20:00 3.0 06/29/19 20:00 Nasal Cannula 2.0 Nasal Cannula 2.0 06/29/19 20:00 98.5 94 18 134/69 (90) 99 06/29/19 19:57 121 06/29/19 16:00 3.0 06/29/19 16:00 Nasal Cannula 2.0 Nasal Cannula 2.0 06/29/19 16:00 97.1 95 18 165/79 (107) 99 06/29/19 15:31 97 06/29/19 12:00 Nasal Cannula 2.0 Nasal Cannula 2.0 06/29/19 12:00 97.2 85 20 107/54 (71) 100 06/29/19 12:00 3.0 06/29/19 11:38 90 06/29/19 09:30 100 Nasal Cannula 2.0 28 06/29/19 08:00 3.0 06/29/19 08:00 97.7 86 21 117/68 (84) 100 06/29/19 08:00 Nasal Cannula 2.0 Nasal Cannula 2.0 06/29/19 07:55 86 Intake and Output 06/29/19 06/30/19 19:00 07:00 Intake Total 1000 ml Output Total 1200 ml 300 ml Balance -1200 ml 700 ml Intake Oral 0 ml Hemodialysis 1000 ml Output Urine Total 200 ml 300 ml Hemodialysis UF 1000 ml # Bowel Movements 2 1 General Appearance: no acute distress HEENT: normocephalic Respiratory/Chest: chest wall non-tender Cardiovascular: normal peripheral pulses Abdomen: normal bowel sounds Microbiology Date/Time Source Procedure Growth Status 06/28/19 10:10 Blood Blood Culture - Preliminary NO GROWTH AFTER 24 HOURS Resulted 06/28/19 10:00 Blood Blood Culture - Preliminary NO GROWTH AFTER 24 HOURS Resulted 06/28/19 04:05 Blood Blood Culture - Preliminary NO GROWTH AFTER 48 HOURS Resulted 06/28/19 04:00 Blood Blood Culture - Preliminary NO GROWTH AFTER 48 HOURS Resulted Laboratory Tests 06/30/19 06:00: White Blood Count [Pending], Red Blood Count [Pending], Hemoglobin [Pending], Hematocrit [Pending], Mean Corpuscular Volume [Pending], Mean Corpuscular Hemoglobin [Pending], Mean Corpuscular Hemoglobin Concent [Pending], Red Cell Distribution Width [Pending], Platelet Count [Pending], Mean Platelet Volume [ Pending], Neutrophils (%) (Auto) [Pending], Lymphocytes (%) (Auto) [Pending], Monocytes (%) (Auto) [Pending], Eosinophils (%) (Auto) [Pending], Basophils (%) (Auto) [Pending], Sodium Level [Pending], Potassium Level [Pending], Chloride Level [Pending], Carbon Dioxide Level [Pending], Blood Urea Nitrogen [Pending], Creatinine [Pending], Estimat Glomerular Filtration Rate [Pending], Glucose Level [Pending], Calcium Level [Pending], Total Bilirubin [Pending], Aspartate Amino Transf (AST/SGOT) [Pending], Alanine Aminotransferase (ALT/SGPT) [Pending] , Alkaline Phosphatase [Pending], Total Protein [Pending], Albumin [Pending], Globulin [Pending], Random Vancomycin Level [Pending] Current Medications Medications (Trade) Dose Ordered Sig/Joan Route PRN Reason Start Time Stop Time Status Last Admin Dose Admin Acetaminophen (Tylenol) 650 mg Q4H PRN ORAL Mild Pain (Pain Scale 1-3) 06/24/19 19:52 07/24/19 19:51 Acetylcysteine (Mucomyst) 100 mg Q4HRT PRN HHN Shortness of Breath 06/25/19 23:45 07/25/19 22:59 Albumin Human 100 ml @ 100 mls/hr NEEDED PRN IV DIALYSIS 06/27/19 14:00 07/27/19 13:59 Albuterol Sulfate (Proventil) 2.5 mg Q4HR PRN HHN Shortness of Breath 06/25/19 23:45 06/30/19 20:59 Chlorhexidine Gluconate (Cari-Hex 2%) 1 applic DAILY@2000 TOPIC 06/26/19 20:00 07/26/19 19:59 06/29/19 20:40 Dextrose (Dextrose 50%) 25 ml Q30M PRN IV Hypoglycemia 06/24/19 19:52 07/24/19 19:51 Dextrose (Dextrose 50%) 50 ml Q30M PRN IV Hypoglycemia 06/24/19 19:52 07/24/19 19:51 Diphenhydramine HCl (Benadryl) 25 mg Q6H PRN ORAL Itching/Pruritis 06/24/19 19:52 07/24/19 19:51 Hydromorphone HCl (Dilaudid) 0.5 mg Q3H PRN IVP Pain 4-10 06/25/19 14:30 07/02/19 14:29 Ondansetron HCl (Zofran) 4 mg Q6H PRN IVP Nausea & Vomiting 06/24/19 19:52 07/24/19 19:51 Pantoprazole (Protonix) 40 mg DAILY IVP 06/30/19 09:00 07/30/19 08:59 Piperacillin Sod/ Tazobactam Sod 2.25 gm/Dextrose 55 ml @ 110 mls/hr Q8HR IV 06/29/19 14:00 07/04/19 13:59 06/30/19 06:54 Vancomycin HCl (Firvanq) 125 mg FOUR TIMES A DAY ORAL 06/29/19 14:00 07/06/19 13:59 06/29/19 21:30 Vancomycin HCl (Vanco rx to dose) 1 ea DAILY PRN MISC Per rx protocol 06/25/19 21:00 07/25/19 20:59 Abrahan Samaniego MD Jun 30, 2019 07:52
[2019-06-30 08:36] LABS: ALANINE AMINOTRANSFERASE 91 U/L (12-78); ALBUMIN 3.4 G/DL (3.4-5.0); ALBUMIN/GLOBULIN RATIO 1.2 (1.0-2.7); ALKALINE PHOSPHATASE 100 U/L (46-116); ANION GAP 18 mmol/L (5-15); ASPARTATE AMINO TRANSFERASE 152 U/L (15-37); BILIRUBIN,TOTAL 5.2 MG/DL (0.2-1.0); BLOOD UREA NITROGEN 78 mg/dL (7-18); CALCIUM 8.9 MG/DL (8.5-10.1); CARBON DIOXIDE 23 MMOL/L (21-32); CHLORIDE 99 MMOL/L (98-107); CREATININE 3.9 MG/DL (0.55-1.30); POTASSIUM 3.7 MMOL/L (3.5-5.1); SODIUM 140 MMOL/L (136-145)
[2019-06-30 08:39] LABS: BILIRUBIN,DIRECT 2.6 MG/DL (0.0-0.3)
[2019-06-30 08:49] LABS: WHITE BLOOD COUNT 33.2 K/UL (4.8-10.8)
--- NOTE | 2019-06-30 08:53 | General Progress Note ---
Assessment/Plan Problem List: (1) KAREN (acute kidney injury) ICD Codes: N17.9 - Acute kidney failure, unspecified SNOMED: 1014733, 62219204 (2) Altered level of consciousness ICD Codes: R40.4 - Transient alteration of awareness SNOMED: 9696806 Status: stable Assessment/Plan: dysphagia elevated LFTS s/p NGT placement start NGTF abd us repeat labs abx per ID PEG when more stable and if family consent Subjective ROS Limited/Unobtainable: No Allergies: Coded Allergies: No Known Allergies (Unverified , 06/24/19) Objective Last 24 Hour Vital Signs Date Time Temp Pulse Resp B/P (MAP) Pulse Ox O2 Delivery O2 Flow Rate FiO2 06/30/19 04:00 97.9 94 17 154/77 (102) 100 06/30/19 04:00 2.0 06/30/19 04:00 Nasal Cannula 2.0 Nasal Cannula 2.0 Nasal Cannula 2.0 06/30/19 04:00 114 06/30/19 00:00 98.5 94 18 162/92 (115) 99 06/30/19 00:00 Nasal Cannula 3.0 Nasal Cannula 3.0 Nasal Cannula 3.0 06/30/19 00:00 116 06/29/19 20:15 112 20 97 Nasal Cannula 2.0 28 06/29/19 20:15 97 Nasal Cannula 2.0 28 06/29/19 20:00 3.0 06/29/19 20:00 Nasal Cannula 2.0 Nasal Cannula 2.0 06/29/19 20:00 98.5 94 18 134/69 (90) 99 06/29/19 19:57 121 06/29/19 16:00 3.0 06/29/19 16:00 Nasal Cannula 2.0 Nasal Cannula 2.0 06/29/19 16:00 97.1 95 18 165/79 (107) 99 06/29/19 15:31 97 06/29/19 12:00 Nasal Cannula 2.0 Nasal Cannula 2.0 06/29/19 12:00 97.2 85 20 107/54 (71) 100 06/29/19 12:00 3.0 06/29/19 11:38 90 06/29/19 09:30 100 Nasal Cannula 2.0 28 Intake and Output 06/29/19 06/30/19 19:00 07:00 Intake Total 1055 ml Output Total 1200 ml 300 ml Balance -1200 ml 755 ml Intake Oral 0 ml IV Total 55 ml Hemodialysis 1000 ml Output Urine Total 200 ml 300 ml Hemodialysis UF 1000 ml # Bowel Movements 2 1 Laboratory Tests 06/30/19 06:00: White Blood Count 33.2*H, Red Blood Count 2.76L, Hemoglobin 7.5L, Hematocrit 23.2L, Mean Corpuscular Volume 84, Mean Corpuscular Hemoglobin 27.2, Mean Corpuscular Hemoglobin Concent 32.4, Red Cell Distribution Width 12.4, Platelet Count 140L, Mean Platelet Volume 8.9, Neutrophils (%) (Auto) , Lymphocytes (%) ( Auto) , Monocytes (%) (Auto) , Eosinophils (%) (Auto) , Basophils (%) (Auto) , Neutrophils % (Manual) [Pending], Lymphocytes % (Manual) [Pending], Platelet Estimate [Pending], Platelet Morphology [Pending], Sodium Level 140, Potassium Level 3.7, Chloride Level 99, Carbon Dioxide Level 23, Anion Gap 18H, Blood Urea Nitrogen 78H, Creatinine 3.9H, Estimat Glomerular Filtration Rate 13.2, Glucose Level 114H, Calcium Level 8.9, Total Bilirubin 5.2H, Direct Bilirubin 2.6H, Aspartate Amino Transf (AST/SGOT) 152H, Alanine Aminotransferase (ALT/SGPT ) 91H, Alkaline Phosphatase 100, Total Protein 6.3L, Albumin 3.4, Globulin 2.9, Albumin/Globulin Ratio 1.2, Random Vancomycin Level 33.0 Height (Feet): 5 Height (Inches): 4.00 Weight (Pounds): 115 General Appearance: no apparent distress EENT: normal ENT inspection Neck: supple Cardiovascular: normal rate Respiratory/Chest: decreased breath sounds Abdomen: normal bowel sounds, non tender, soft Extremities: non-tender Jun Mnea MD Jun 30, 2019 08:53
[2019-06-30] MEDS: Vancomycin oral 125mg/2.5ml ORAL SCH ×4 (09:06→20:48)
[2019-06-30] MEDS: Pantoprazole Inj IVP SCH (09:06)
--- NOTE | 2019-06-30 11:59 | Diagnostic Imaging Report ---
EXAM: XR Chest, 1 View CLINICAL HISTORY: INFECT TECHNIQUE: Frontal view of the chest. COMPARISON: Chest x-ray 06/29/19 FINDINGS: Lungs: Rotated film. Bilateral interstitial thickening and patchy airspace opacities in the left lung, similar to prior study given differences in technique. Pleural space: Unremarkable. No pneumothorax. Heart: Unremarkable. No cardiomegaly. Mediastinum: Unremarkable. Bones/joints: Unremarkable. Tubes, lines and devices: Feeding tube traverses diaphragm, tip is not seen. IMPRESSION: 1. Feeding tube traverses diaphragm, tip is not seen. 2. Bilateral interstitial thickening and patchy airspace opacities in the left lung, similar to prior study given differences in technique.
--- NOTE | 2019-06-30 12:52 | Surgery Progress Note ---
Surgery Progress Note Subjective Procedure Performed Left femoral temporary hemodialysis catheter insertion Additional Comments ng line in leukocytosis cxr noted ill appearing Objective Last 24 Hour Vital Signs Date Time Temp Pulse Resp B/P (MAP) Pulse Ox O2 Delivery O2 Flow Rate FiO2 06/30/19 09:22 117 158/77 (104) 06/30/19 09:12 100 Nasal Cannula 2.0 28 06/30/19 08:00 2.0 06/30/19 08:00 97.0 120 20 172/95 (120) 95 06/30/19 08:00 Nasal Cannula 2.0 Nasal Cannula 2.0 Nasal Cannula 2.0 06/30/19 08:00 113 06/30/19 04:00 97.9 94 17 154/77 (102) 100 06/30/19 04:00 2.0 06/30/19 04:00 Nasal Cannula 2.0 Nasal Cannula 2.0 Nasal Cannula 2.0 06/30/19 04:00 114 06/30/19 00:00 98.5 94 18 162/92 (115) 99 06/30/19 00:00 Nasal Cannula 3.0 Nasal Cannula 3.0 Nasal Cannula 3.0 06/30/19 00:00 116 06/29/19 20:15 112 20 97 Nasal Cannula 2.0 28 06/29/19 20:15 97 Nasal Cannula 2.0 28 06/29/19 20:00 3.0 06/29/19 20:00 Nasal Cannula 2.0 Nasal Cannula 2.0 06/29/19 20:00 98.5 94 18 134/69 (90) 99 06/29/19 19:57 121 06/29/19 16:00 3.0 06/29/19 16:00 Nasal Cannula 2.0 Nasal Cannula 2.0 06/29/19 16:00 97.1 95 18 165/79 (107) 99 06/29/19 15:31 97 I&O Intake and Output 06/29/19 06/30/19 19:00 07:00 Intake Total 1055 ml Output Total 1200 ml 300 ml Balance -1200 ml 755 ml Intake Oral 0 ml IV Total 55 ml Hemodialysis 1000 ml Output Urine Total 200 ml 300 ml Hemodialysis UF 1000 ml # Bowel Movements 2 1 Dressing: other Wound: other Drains: other Cardiovascular: RSR Respiratory: decreased breath sounds Abdomen: soft, non-tender, present bowel sounds Extremities: no cyanosis Laboratory Tests Test 06/30/19 06:00 White Blood Count 33.2 K/UL (4.8-10.8) *H Red Blood Count 2.76 M/UL (4.20-5.40) L Hemoglobin 7.5 G/DL (12.0-16.0) L Hematocrit 23.2 % (37.0-47.0) L Mean Corpuscular Volume 84 FL (80-99) Mean Corpuscular Hemoglobin 27.2 PG (27.0-31.0) Mean Corpuscular Hemoglobin Concent 32.4 G/DL (32.0-36.0) Red Cell Distribution Width 12.4 % (11.6-14.8) Platelet Count 140 K/UL (150-450) L Mean Platelet Volume 8.9 FL (6.5-10.1) Neutrophils (%) (Auto) % (45.0-75.0) Lymphocytes (%) (Auto) % (20.0-45.0) Monocytes (%) (Auto) % (1.0-10.0) Eosinophils (%) (Auto) % (0.0-3.0) Basophils (%) (Auto) % (0.0-2.0) Neutrophils % (Manual) Pending Lymphocytes % (Manual) Pending Platelet Estimate Pending Platelet Morphology Pending Sodium Level 140 MMOL/L (136-145) Potassium Level 3.7 MMOL/L (3.5-5.1) Chloride Level 99 MMOL/L (98-107) Carbon Dioxide Level 23 MMOL/L (21-32) Anion Gap 18 mmol/L (5-15) H Blood Urea Nitrogen 78 mg/dL (7-18) H Creatinine 3.9 MG/DL (0.55-1.30) H Estimat Glomerular Filtration Rate 13.2 mL/min (>60) Glucose Level 114 MG/DL (74-106) H Calcium Level 8.9 MG/DL (8.5-10.1) Total Bilirubin 5.2 MG/DL (0.2-1.0) H Direct Bilirubin 2.6 MG/DL (0.0-0.3) H Aspartate Amino Transf (AST/SGOT) 152 U/L (15-37) H Alanine Aminotransferase (ALT/SGPT) 91 U/L (12-78) H Alkaline Phosphatase 100 U/L (46-116) Total Protein 6.3 G/DL (6.4-8.2) L Albumin 3.4 G/DL (3.4-5.0) Globulin 2.9 g/dL Albumin/Globulin Ratio 1.2 (1.0-2.7) Random Vancomycin Level 33.0 ug/mL Plan Problems: (1) Fall Assessment & Plan: 88 year old female s/p fall now with renal insufficiency requiring HD spoke with family. she has known CKD multiple decubitus ulcers from being down malnutrition line placed see documentation trend labs abx HD thank you prognosis guarded family at bedside cxr noted pna worsening (2) Altered level of consciousness (3) Fracture of lumbar spine Assessment & Plan: Lungs: There is increased density at the lung bases likely atelectasis. Aorta is moderately calcified. There is a small hiatal hernia.. Liver: Grossly unremarkable. There is artifact limiting evaluation in addition to the fact that no IV or oral contrast was given for this examination. Gallbladder/biliary system: Grossly unremarkable. Spleen: Unremarkable Pancreas: In the area of the pancreatic tail there is a 1.6 cm nodular density which may be cystic. Further evaluation is recommended. Kidneys/Bladder: Vascular calcifications are quite extensive and extend to the hilum of both kidneys. Evaluation for punctate nonobstructive stones is limited in this setting but no definite stones seen. There is no hydronephrosis. Extensive breathing motion limiting evaluation.. Adrenal glands: Unremarkable Bowel: Patient's prior partial bowel resection in the right lower abdomen with anastomotic sutures noted. There is no evidence of a bowel obstruction or inflammatory changes. Appendix is not seen definitely but there are no signs of appendicitis. A few diverticula are noted within the colon. Aorta/IVC: There is a severe calcification of aorta and multiple branches of the aorta. Peritoneum: There is no free fluid. Bones: Bones are diffusely osteopenic. Multiple compression fracture deformities of several vertebra noted including lower thoracic vertebra and L1. There is narrowing of intervertebral discs and accompanying endplate osteophyte formation. Hypertrophied facet joints also demonstrated. Scoliosis of the lower thoracic spine convex to the right and left convex lumbar scoliosis noted. IMPRESSION: No acute findings appreciated. Study limited by the lack of intravenous oral contrast as well as extensive motion artifact. 1.6 cm probable cystic lesion in the pancreatic tail. This requires further evaluation with the contrast CT or MR. Status post previous partial bowel resection. 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 Degenerative changes as described above. (4) Rhabdomyolysis (5) KAREN (acute kidney injury) (6) Decubitus skin ulcer Assessment & Plan: Pt presented on admission with multiple pressure injuries. Pt's niece Sarah stated pt lives alone and found pt laying on her R side on floor in patient's home.Niece believes pt has been laying on floor for approx 5 days. DTPI noted to R cheek. Base of wound is purple with marginal erythema along borders.(L)1.2cm x (W)1.6cm. Unstageable pressure injury R shoulder. Base of wound is 100% necrotic with marginal erythema along borders.(L)4.8cm x (W).3.5cm . DTPI R humerus. Base of wound is fluctuant and maroon in colour with surrounding erythema. (L)10.6cm x (W)3.1cm. DTPI R elbow.Base of wound is indurated with scattered areas that are purple in colour. An area of fluctuance in center. Marginal erythema along borders.(L) 5.3cm x (W)10.4cm. Partially opened Sacral DTPI. Base of wound is purple with surrounding erythema. Partial open wound marco a cleft that is corby and moist.(L)5.3cm x (W) 4.5cm.NO odor or exudate noted. Non-blanching erythema periwound. DTPI L ischium . Base of wound is purple and indurated.(L)6cm x (W)7.5cm. Unstageable pressure injury R hip. Base of wound is 75% necrotic, 25% mixed erythema and slough. Borders are moist,soft with scattered areas that are black. Periwound is dusky and indurated.No odor or exudate noted. DTPI at posterior and medial aspect of L heel. Base of wound is maroon and fluctuant(L)4cm x (W)7cm. Unstageable pressure injury L Hallux. Base of wound is 100% necrotic but soft. Borders are erythematous. Periwound without induration or fluctuance.(L)2.5cm x (W)3cm. DTPI medial L malleolus. Base of wound fluctuant and maroon in colour.(L) 0.3cm x (W)1.2cm. DTPI medial L malleolus. Base of wound fluctuant and maroon in colour with Marginal erythema along borders.(L)0.3cm x (W)1.2cm. Intact blood filled blisters noted to L 1st Metatarsal laterally and head of metatarsal. Intact blood filled blisters noted to heads of L 2nd and L 3rd metatarsals. DTPI noted to posterior and lateral R Heel. Posterior R heel is maroon in colour and fluctuant at base. Laterally ,R heel is black and fluctuant at base.Periwound is boggy and non-blanchable.(L)7cm x (W)8cm. Unstageable pressure injury lateral R malleolus. Base of wound is 100% necrotic and dry.Marginal erythema along borders.Periwound is fluctuant and erythematous( L)1.2cm x (W)1.5cm. DTPI distal/lateral R foot. Base of wound is fluctuant and maroon in colour.(L) 1.3cm x (W)1.7cm. DTPI lateral R 5th metatarsal. Base of wound is maroon and fluctuant with marginal erythema along borders .(L)0.7cm x (W)1.1cm Tx.Plan: Cleanse Wound R shoulder with Saline. Apply Therahoney. Apply Cavilon Skin barrier periwound. Cover with Optifoam drsg every 3 days and prn. Cleanse R hip wound with Saline. Apply Therahoney with 4x4 Gauze. Apply Moisture Barrier Paste periwound.Cover with Optifoam drsg. Daily and prn. Apply Moisture Barrier Paste to Sacral wound and L Ischium. Cover each wound with Optifoam drsg every 3 days and prn. Apply Betadine to R humerus and R elbow . Cover each wound with Optifoam drsg. Change every 3 days and prn. Apply Betadine to wounds R heel, R malleolus and R foot . Cover each wound with Optifoam drsg every 3 days and prn. Apply Betadine to wounds L heel ,L medial malleolus and L foot. Cover each wound with Optifoam drsgs every 3 Days and prn. Air Fluidized Mattress. Reposition at least every 2hours or as tolerated. Place Pillow between knees. Off-load heels with pillow. Additional Comments prognosis guarded worsening labs cxr poor hold on peg HD prn daryro may need to eval line as worsening Anshul Nava Jun 30, 2019 12:52
--- NOTE | 2019-06-30 13:13 | General Progress Note ---
Assessment/Plan Status: stable Assessment/Plan: #Rhabdomyolosis #KAREN - downtrending #Acute renal failure - on HD UF #Uremic encephaloapathy #Anion gap metabolic acidosis #Lactic acidosis -resolved -renal US-> No obstructive nephropathy -renal function slowly improving -Nephrology following: no IVF, HD UF per nephro -Discussed with family at length re: clinical status, code status, feeding. okay with artificial feeding. unclear on code status but full code for now. #Left lung PNA - likely aspiration #Acute hypoxic respiratory failure s/p BiPAP - improved #Strep Viridans bacteremia #Worsening Leukocytosis #loose stools Noted to be acutely hypoxic on early AM of 06/25, requiring bipap. -s/p BiPAP -> NC -> room air today -CT chest, CXR with left lung infiltrate. -ABG prn. -Pulmonology following -echo negative for vegetations -CXR 06/28: Bilateral interstitial thickening and patchy airspace opacities in the left lung, similar to prior study given differences in technique. -ID following - Vanc/zosyn (06/25 -), PO Vanc -Stool for c diff pending -Worsening leukocytosis, repeat cultures on 06/28 pending #Dysphagia -NGT for feeding for now. May need speech therapy -> PEG. #L1 vertebral fracture - likely old seen on imaging, likely old. -reassurance provided to family. #Transaminitis - downtrending ?from dehydration, abd exam benign. -continue to trend LFT's. #Type 2 NSTEMI likely demand in setting of renal failure. EKG wnl. -no need to trend. -cardiology consulted - pt will need stress test prior to d/c #Pressure wounds. -General surgery consulted for wound care, central line insertion on 06/24 -Cont. wound care Prognosis is grave. Time spent: 36 mins, >50% on coordination of care and chart review. Time of note doesn't reflect time of encounter. Subjective Allergies: Coded Allergies: No Known Allergies (Unverified , 06/24/19) Subjective No acute events overnight per nurse. Pt non-verbal at this time, shook head "no " when asked if in pain, unable to obtain full ROS 2/2 clinical picture. Objective Last 24 Hour Vital Signs Date Time Temp Pulse Resp B/P (MAP) Pulse Ox O2 Delivery O2 Flow Rate FiO2 3/8/20 09:22 117 158/77 (104) 06/30/19 09:12 100 Nasal Cannula 2.0 28 06/30/19 08:00 2.0 06/30/19 08:00 97.0 120 20 172/95 (120) 95 06/30/19 08:00 Nasal Cannula 2.0 Nasal Cannula 2.0 Nasal Cannula 2.0 06/30/19 08:00 113 06/30/19 04:00 97.9 94 17 154/77 (102) 100 06/30/19 04:00 2.0 06/30/19 04:00 Nasal Cannula 2.0 Nasal Cannula 2.0 Nasal Cannula 2.0 06/30/19 04:00 114 06/30/19 00:00 98.5 94 18 162/92 (115) 99 06/30/19 00:00 Nasal Cannula 3.0 Nasal Cannula 3.0 Nasal Cannula 3.0 06/30/19 00:00 116 06/29/19 20:15 112 20 97 Nasal Cannula 2.0 28 06/29/19 20:15 97 Nasal Cannula 2.0 28 06/29/19 20:00 3.0 06/29/19 20:00 Nasal Cannula 2.0 Nasal Cannula 2.0 06/29/19 20:00 98.5 94 18 134/69 (90) 99 06/29/19 19:57 121 06/29/19 16:00 3.0 06/29/19 16:00 Nasal Cannula 2.0 Nasal Cannula 2.0 06/29/19 16:00 97.1 95 18 165/79 (107) 99 06/29/19 15:31 97 Intake and Output 06/29/19 06/30/19 19:00 07:00 Intake Total 1055 ml Output Total 1200 ml 300 ml Balance -1200 ml 755 ml Intake Oral 0 ml IV Total 55 ml Hemodialysis 1000 ml Output Urine Total 200 ml 300 ml Hemodialysis UF 1000 ml # Bowel Movements 2 1 Laboratory Tests 06/30/19 06:00: White Blood Count 33.2*H, Red Blood Count 2.76L, Hemoglobin 7.5L, Hematocrit 23.2L, Mean Corpuscular Volume 84, Mean Corpuscular Hemoglobin 27.2, Mean Corpuscular Hemoglobin Concent 32.4, Red Cell Distribution Width 12.4, Platelet Count 140L, Mean Platelet Volume 8.9, Neutrophils (%) (Auto) , Lymphocytes (%) ( Auto) , Monocytes (%) (Auto) , Eosinophils (%) (Auto) , Basophils (%) (Auto) , Neutrophils % (Manual) [Pending], Lymphocytes % (Manual) [Pending], Platelet Estimate [Pending], Platelet Morphology [Pending], Sodium Level 140, Potassium Level 3.7, Chloride Level 99, Carbon Dioxide Level 23, Anion Gap 18H, Blood Urea Nitrogen 78H, Creatinine 3.9H, Estimat Glomerular Filtration Rate 13.2, Glucose Level 114H, Calcium Level 8.9, Total Bilirubin 5.2H, Direct Bilirubin 2.6H, Aspartate Amino Transf (AST/SGOT) 152H, Alanine Aminotransferase (ALT/SGPT ) 91H, Alkaline Phosphatase 100, Total Protein 6.3L, Albumin 3.4, Globulin 2.9, Albumin/Globulin Ratio 1.2, Random Vancomycin Level 33.0 Height (Feet): 5 Height (Inches): 4.00 Weight (Pounds): 115 Objective General Appearance: thin, cachetic, non-communicative, awake but does not appear alert HEENT: NCAT, neck supple, NG tube in place Cardiovascular: normal rate, regular rhythm Respiratory/Chest: lungs clear, diminished breath sounds, no accessory muscle usage at this time, on NC at this time Abdomen: non tender, soft Neuro: unable to fully assess 2/2 pt participation, pt does not respond to name Ext: contracted b/l, hemo cath in LLE C/D/I Lisa Brewster M.D. Jun 30, 2019 13:13
--- NOTE | 2019-06-30 16:04 | Infectious Diseases Prog Note ---
Assessment/Plan Assessment/Plan ASSESSMENT AND PLAN: 1. streptococcus viridans bacteremia, ? endocarditis, aspiration pna/hcap, atx, sepsis, leukocytosis, fevers, sob, arf, rhabdomyolysis ? c.diff., wounds pictures reviewed - change abx to meropenem, zyvox and po vancomycin - monitor labs and chest x-ray - TTE - no vegetation mentioned in report, recent CT abdomen and pelvis noted - f/u on cultures, surveillance blood cultures noted - poor prognosis - d/w RN and family at length 2. Acute renal failure, crf - on hemodialysis 3. Rhabdomyolysis - per primary and renal medicine 4. Elevated LFTs. 5. CAD. 6. Non-STEMI. 7. No history of diabetes or hypertension. 8. Fall. 9. Altered level of consciousness. 10. Lumbar spine fracture. 11. No known drug allergies. 12. Social history is negative. 13. Family history is noncontributory. 14. MAR was noted. 15. Case was discussed with RN and family 16. Continue treatment per primary consultants. Subjective Constitutional: Reports: fatigue; Denies: fever HEENT: Reports: congestion Respiratory: Reports: shortness of breath Gastrointestinal/Abdominal: Reports: other; Denies: nausea, vomiting, diarrhea Genitourinary: Reports: other - + [place] Neurologic: Denies: headache Psychiatric: Denies: depression Skin: Reports: ulcer - wounds reviewed Allergies: Coded Allergies: No Known Allergies (Unverified , 06/24/19) Objective Vital Signs Last 24 Hour Vital Signs Date Time Temp Pulse Resp B/P (MAP) Pulse Ox O2 Delivery O2 Flow Rate FiO2 06/30/19 12:00 91 06/30/19 12:00 Nasal Cannula 2.0 Nasal Cannula 2.0 Nasal Cannula 2.0 06/30/19 12:00 2.0 06/30/19 12:00 97.9 65 18 150/60 (90) 95 06/30/19 09:22 117 158/77 (104) 06/30/19 09:12 100 Nasal Cannula 2.0 28 06/30/19 08:00 2.0 06/30/19 08:00 97.0 120 20 172/95 (120) 95 06/30/19 08:00 Nasal Cannula 2.0 Nasal Cannula 2.0 Nasal Cannula 2.0 06/30/19 08:00 113 06/30/19 04:00 97.9 94 17 154/77 (102) 100 06/30/19 04:00 2.0 06/30/19 04:00 Nasal Cannula 2.0 Nasal Cannula 2.0 Nasal Cannula 2.0 06/30/19 04:00 114 06/30/19 00:00 98.5 94 18 162/92 (115) 99 06/30/19 00:00 Nasal Cannula 3.0 Nasal Cannula 3.0 Nasal Cannula 3.0 06/30/19 00:00 116 06/29/19 20:15 112 20 97 Nasal Cannula 2.0 28 06/29/19 20:15 97 Nasal Cannula 2.0 28 06/29/19 20:00 3.0 06/29/19 20:00 Nasal Cannula 2.0 Nasal Cannula 2.0 06/29/19 20:00 98.5 94 18 134/69 (90) 99 06/29/19 19:57 121 06/29/19 16:00 3.0 06/29/19 16:00 Nasal Cannula 2.0 Nasal Cannula 2.0 06/29/19 16:00 97.1 95 18 165/79 (107) 99 Height (Feet): 5 Height (Inches): 4.00 Weight (Pounds): 115 General Appearance: other - + sob, weak, lethargic HEENT: normocephalic, atraumatic, supple Respiratory/Chest: crackles/rales, rhonchi - bilaterally Cardiovascular: normal rate, regular rhythm Abdomen: soft, non tender, no organomegaly Skin: other - wound photos reviewed Objective Procedure: XRAY Chest 1v Indication: Dyspnea Chest x-ray - 06/29/19 - Technique: One view of the chest Comparison: 06/25/2019 Findings: Interim expansion of previously atelectatic left lung. There is considerable interstitial and airspace disease throughout the left lung, however. Less extensive interstitial congestion is seen in the right lung. The heart size is normal. The aorta is tortuous and calcified Impression: Interim reexpansion of previously atelectatic left lung. However, there is considerable infiltrate and/or edema throughout the left lung. There is also persistent mild generalized interstitial congestion in the right lung CT Chest: IMPRESSION: Extensive airspace consolidation in the left lung involving the left perihilar, upper lobe and left lower lobe. Findings suspicious for pneumonia, especially aspiration given the abrupt onset. Please correlate clinically. Partial atelectasis of the left lower lobe also noted. Atherosclerotic vascular disease. Degenerative changes of the spine and scoliosis. CT abdomen and pelvis: IMPRESSION: No acute findings appreciated. Study limited by the lack of intravenous oral contrast as well as extensive motion artifact. 1.6 cm probable cystic lesion in the pancreatic tail. This requires further evaluation with the contrast CT or MR. Status post previous partial bowel resection. 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 Degenerative changes as described above. Microbiology Date/Time Source Procedure Growth Status 06/28/19 10:10 Blood Blood Culture - Preliminary NO GROWTH AFTER 24 HOURS Resulted 06/28/19 10:00 Blood Blood Culture - Preliminary NO GROWTH AFTER 24 HOURS Resulted 06/28/19 04:05 Blood Blood Culture - Preliminary NO GROWTH AFTER 48 HOURS Resulted 06/28/19 04:00 Blood Blood Culture - Preliminary NO GROWTH AFTER 48 HOURS Resulted Laboratory Tests Test 06/30/19 06:00 White Blood Count 33.2 K/UL (4.8-10.8) *H Red Blood Count 2.76 M/UL (4.20-5.40) L Hemoglobin 7.5 G/DL (12.0-16.0) L Hematocrit 23.2 % (37.0-47.0) L Mean Corpuscular Volume 84 FL (80-99) Mean Corpuscular Hemoglobin 27.2 PG (27.0-31.0) Mean Corpuscular Hemoglobin Concent 32.4 G/DL (32.0-36.0) Red Cell Distribution Width 12.4 % (11.6-14.8) Platelet Count 140 K/UL (150-450) L Mean Platelet Volume 8.9 FL (6.5-10.1) Neutrophils (%) (Auto) % (45.0-75.0) Lymphocytes (%) (Auto) % (20.0-45.0) Monocytes (%) (Auto) % (1.0-10.0) Eosinophils (%) (Auto) % (0.0-3.0) Basophils (%) (Auto) % (0.0-2.0) Differential Total Cells Counted 100 Neutrophils % (Manual) 83 % (45-75) H Lymphocytes % (Manual) 6 % (20-45) L Monocytes % (Manual) 2 % (1-10) Eosinophils % (Manual) 3 % (0-3) Basophils % (Manual) 0 % (0-2) Metamyelocytes % 2 % (0-0) H Myelocytes % 2 % (0-0) H Band Neutrophils 2 % (0-8) Platelet Estimate Adequate Platelet Morphology Normal Polychromasia 1+ Hypochromasia 1+ Sodium Level 140 MMOL/L (136-145) Potassium Level 3.7 MMOL/L (3.5-5.1) Chloride Level 99 MMOL/L (98-107) Carbon Dioxide Level 23 MMOL/L (21-32) Anion Gap 18 mmol/L (5-15) H Blood Urea Nitrogen 78 mg/dL (7-18) H Creatinine 3.9 MG/DL (0.55-1.30) H Estimat Glomerular Filtration Rate 13.2 mL/min (>60) Glucose Level 114 MG/DL (74-106) H Calcium Level 8.9 MG/DL (8.5-10.1) Total Bilirubin 5.2 MG/DL (0.2-1.0) H Direct Bilirubin 2.6 MG/DL (0.0-0.3) H Aspartate Amino Transf (AST/SGOT) 152 U/L (15-37) H Alanine Aminotransferase (ALT/SGPT) 91 U/L (12-78) H Alkaline Phosphatase 100 U/L (46-116) Total Protein 6.3 G/DL (6.4-8.2) L Albumin 3.4 G/DL (3.4-5.0) Globulin 2.9 g/dL Albumin/Globulin Ratio 1.2 (1.0-2.7) Random Vancomycin Level 33.0 ug/mL Current Medications Medications (Trade) Dose Ordered Sig/Joan Route PRN Reason Start Time Stop Time Status Last Admin Dose Admin Acetaminophen (Tylenol) 650 mg Q4H PRN ORAL Mild Pain (Pain Scale 1-3) 06/24/19 19:52 07/24/19 19:51 Acetylcysteine (Mucomyst) 100 mg Q4HRT PRN HHN Shortness of Breath 06/25/19 23:45 07/25/19 22:59 Albumin Human 100 ml @ 100 mls/hr NEEDED PRN IV DIALYSIS 06/27/19 14:00 07/27/19 13:59 Albuterol Sulfate (Proventil) 2.5 mg Q4HR PRN HHN Shortness of Breath 06/25/19 23:45 06/30/19 20:59 Chlorhexidine Gluconate (Cari-Hex 2%) 1 applic DAILY@2000 TOPIC 06/26/19 20:00 07/26/19 19:59 06/29/19 20:40 Dextrose (Dextrose 50%) 25 ml Q30M PRN IV Hypoglycemia 06/24/19 19:52 07/24/19 19:51 Dextrose (Dextrose 50%) 50 ml Q30M PRN IV Hypoglycemia 06/24/19 19:52 07/24/19 19:51 Diphenhydramine HCl (Benadryl) 25 mg Q6H PRN ORAL Itching/Pruritis 06/24/19 19:52 07/24/19 19:51 Hydromorphone HCl (Dilaudid) 0.5 mg Q3H PRN IVP Pain 4-10 06/25/19 14:30 07/02/19 14:29 Ondansetron HCl (Zofran) 4 mg Q6H PRN IVP Nausea & Vomiting 06/24/19 19:52 07/24/19 19:51 Pantoprazole (Protonix) 40 mg DAILY IVP 06/30/19 09:00 07/30/19 08:59 06/30/19 09:06 Piperacillin Sod/ Tazobactam Sod 2.25 gm/Dextrose 55 ml @ 110 mls/hr Q8HR IV 06/29/19 14:00 07/04/19 13:59 06/30/19 14:03 Vancomycin HCl (Firvanq) 125 mg FOUR TIMES A DAY ORAL 06/29/19 14:00 07/06/19 13:59 06/30/19 14:02 Vancomycin HCl (Vanco rx to dose) 1 ea DAILY PRN MISC Per rx protocol 06/25/19 21:00 07/25/19 20:59 Ana Rosado MD Jun 30, 2019 16:04
--- NOTE | 2019-06-30 17:12 | Diagnostic Imaging Report ---
Indication: Abdominal pain Technique: Grayscale and duplex Doppler imaging of the abdomen performed. Comparison: None Findings: Patient is contracted limiting evaluation. The left upper quadrant adjacent to the spleen there is a cystic focus measuring about 1 cm. Spleen is normal in size. The gallbladder is contracted. There is a containing of the wall which may be related to the state of the gallbladder being contracted. The CBD is 3.4 mm. The liver is grossly unremarkable. There is no ascites. There is evidence of a pleural effusion. The main portal vein is patent by Doppler. Kidneys are grossly unremarkable. The pancreas aorta and IVC are not well seen. Patient is contracted and the thereby difficult to evaluate. IMPRESSION: No acute findings appreciated. Bilateral pleural effusions Cyst in the splenic hilar region. Contracted gallbladder with prominent wall.
--- NOTE | 2019-06-30 19:23 | Cardiology Progress Note ---
Assessment/Plan Status: stable Assessment/Plan Assessment/Plan Status: stable Assessment/Plan: Assessment Elevated troponin Syncope. Elevated LFT KAREN/CKD Rhabdomyolysis Plan d/c Trend troponin Monitor on telemetry Echocardiogram pending Stress test prior to discharge Hold heparin PEG tube placement - clear to proceed Maintain HD Abx per ID/pulm Pulmonary toilet Supportive care Subjective Cardiovascular: Reports: no symptoms Respiratory: Reports: no symptoms Gastrointestinal/Abdominal: Reports: no symptoms Genitourinary: Reports: no symptoms Subjective No distress, on roon air, no fevers, BP elevated, creatinine mildly improved, WBC elevated. family deciding on PEG Objective Last 24 Hour Vital Signs Date Time Temp Pulse Resp B/P (MAP) Pulse Ox O2 Delivery O2 Flow Rate FiO2 06/30/19 16:00 Nasal Cannula 2.0 Nasal Cannula 2.0 Nasal Cannula 2.0 06/30/19 16:00 2.0 06/30/19 16:00 97.7 98 18 155/94 (114) 95 06/30/19 12:00 91 06/30/19 12:00 Nasal Cannula 2.0 Nasal Cannula 2.0 Nasal Cannula 2.0 06/30/19 12:00 2.0 06/30/19 12:00 97.9 65 18 150/60 (90) 95 06/30/19 09:22 117 158/77 (104) 06/30/19 09:12 100 Nasal Cannula 2.0 28 06/30/19 08:00 2.0 06/30/19 08:00 97.0 120 20 172/95 (120) 95 06/30/19 08:00 Nasal Cannula 2.0 Nasal Cannula 2.0 Nasal Cannula 2.0 06/30/19 08:00 113 06/30/19 04:00 97.9 94 17 154/77 (102) 100 06/30/19 04:00 2.0 06/30/19 04:00 Nasal Cannula 2.0 Nasal Cannula 2.0 Nasal Cannula 2.0 06/30/19 04:00 114 06/30/19 00:00 98.5 94 18 162/92 (115) 99 06/30/19 00:00 Nasal Cannula 3.0 Nasal Cannula 3.0 Nasal Cannula 3.0 06/30/19 00:00 116 06/29/19 20:15 112 20 97 Nasal Cannula 2.0 28 06/29/19 20:15 97 Nasal Cannula 2.0 28 06/29/19 20:00 3.0 06/29/19 20:00 Nasal Cannula 2.0 Nasal Cannula 2.0 06/29/19 20:00 98.5 94 18 134/69 (90) 99 06/29/19 19:57 121 General Appearance: no apparent distress, lethargic EENT: PERRL/EOMI, normal ENT inspection, TMs normal, pharynx normal Neck: non-tender, normal alignment, supple, normal inspection, no JVD Rhythm: NSR Cardiovascular: normal peripheral pulses, normal rate, regular rhythm Respiratory/Chest: chest wall non-tender, lungs clear, normal breath sounds, no respiratory distress, no accessory muscle use Abdomen: normal bowel sounds, non tender, soft, no organomegaly, no mass Extremities: normal range of motion, non-tender, normal inspection, no calf tenderness, no swelling Neurologic: presser hand 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 normal, no motor/sensory deficits Intake and Output 06/29/19 06/30/19 19:00 07:00 Intake Total 1055 ml Output Total 1200 ml 300 ml Balance -1200 ml 755 ml Intake Oral 0 ml IV Total 55 ml Hemodialysis 1000 ml Output Urine Total 200 ml 300 ml Hemodialysis UF 1000 ml # Bowel Movements 2 1 Laboratory Tests Test 06/30/19 06:00 White Blood Count 33.2 K/UL (4.8-10.8) *H Red Blood Count 2.76 M/UL (4.20-5.40) L Hemoglobin 7.5 G/DL (12.0-16.0) L Hematocrit 23.2 % (37.0-47.0) L Mean Corpuscular Volume 84 FL (80-99) Mean Corpuscular Hemoglobin 27.2 PG (27.0-31.0) Mean Corpuscular Hemoglobin Concent 32.4 G/DL (32.0-36.0) Red Cell Distribution Width 12.4 % (11.6-14.8) Platelet Count 140 K/UL (150-450) L Mean Platelet Volume 8.9 FL (6.5-10.1) Neutrophils (%) (Auto) % (45.0-75.0) Lymphocytes (%) (Auto) % (20.0-45.0) Monocytes (%) (Auto) % (1.0-10.0) Eosinophils (%) (Auto) % (0.0-3.0) Basophils (%) (Auto) % (0.0-2.0) Differential Total Cells Counted 100 Neutrophils % (Manual) 83 % (45-75) H Lymphocytes % (Manual) 6 % (20-45) L Monocytes % (Manual) 2 % (1-10) Eosinophils % (Manual) 3 % (0-3) Basophils % (Manual) 0 % (0-2) Metamyelocytes % 2 % (0-0) H Myelocytes % 2 % (0-0) H Band Neutrophils 2 % (0-8) Platelet Estimate Adequate Platelet Morphology Normal Polychromasia 1+ Hypochromasia 1+ Sodium Level 140 MMOL/L (136-145) Potassium Level 3.7 MMOL/L (3.5-5.1) Chloride Level 99 MMOL/L (98-107) Carbon Dioxide Level 23 MMOL/L (21-32) Anion Gap 18 mmol/L (5-15) H Blood Urea Nitrogen 78 mg/dL (7-18) H Creatinine 3.9 MG/DL (0.55-1.30) H Estimat Glomerular Filtration Rate 13.2 mL/min (>60) Glucose Level 114 MG/DL (74-106) H Calcium Level 8.9 MG/DL (8.5-10.1) Total Bilirubin 5.2 MG/DL (0.2-1.0) H Direct Bilirubin 2.6 MG/DL (0.0-0.3) H Aspartate Amino Transf (AST/SGOT) 152 U/L (15-37) H Alanine Aminotransferase (ALT/SGPT) 91 U/L (12-78) H Alkaline Phosphatase 100 U/L (46-116) Total Protein 6.3 G/DL (6.4-8.2) L Albumin 3.4 G/DL (3.4-5.0) Globulin 2.9 g/dL Albumin/Globulin Ratio 1.2 (1.0-2.7) Random Vancomycin Level 33.0 ug/mL Microbiology Date/Time Source Procedure Growth Status 06/28/19 10:10 Blood Blood Culture - Preliminary NO GROWTH AFTER 24 HOURS Resulted 06/28/19 10:00 Blood Blood Culture - Preliminary NO GROWTH AFTER 24 HOURS Resulted 06/28/19 04:05 Blood Blood Culture - Preliminary NO GROWTH AFTER 48 HOURS Resulted 06/28/19 04:00 Blood Blood Culture - Preliminary NO GROWTH AFTER 48 HOURS Resulted Melchor Cerna MD Jun 30, 2019 19:23
--- NOTE | 2019-06-30 19:46 | Nephrology Progress Note ---
Assessment/Plan Plan #acute renal failure on possible CKD- due to rhabdo- UA with + RBC- concerns for developing ATN #Uremia #complete opacification of the left hemithorax- likely aspiration pneumonia #lactic acidosis #Hypernatremia- improved #AMS #elevated liver enzyme - ass need for HD daily - will likely need HD tomorrow - no IVF - pulmonary eval - renal US-> No obstructive nephropathy. - monitor liver enzymes - continue with abx- on vanco and zosyn adn PO vanco - cardiology eval noted - stress test prior to DC #FULLCODE for now Subjective Subjective s/p HD yesterday WBC uptrenidng BP stable 500cc of urine documented on room air CT chest: Extensive airspace consolidation in the left lung involving the left perihilar, upper lobe and left lower lobe. Findings suspicious for pneumonia, especially aspiration given the abrupt onset. Please correlate clinically. Partial atelectasis of the left lower lobe also noted Objective Objective Last 24 Hour Vital Signs Date Time Temp Pulse Resp B/P (MAP) Pulse Ox O2 Delivery O2 Flow Rate FiO2 06/30/19 16:00 Nasal Cannula 2.0 Nasal Cannula 2.0 Nasal Cannula 2.0 06/30/19 16:00 2.0 06/30/19 16:00 97.7 98 18 155/94 (114) 95 06/30/19 12:00 91 06/30/19 12:00 Nasal Cannula 2.0 Nasal Cannula 2.0 Nasal Cannula 2.0 06/30/19 12:00 2.0 06/30/19 12:00 97.9 65 18 150/60 (90) 95 06/30/19 09:22 117 158/77 (104) 06/30/19 09:12 100 Nasal Cannula 2.0 28 06/30/19 08:00 2.0 06/30/19 08:00 97.0 120 20 172/95 (120) 95 06/30/19 08:00 Nasal Cannula 2.0 Nasal Cannula 2.0 Nasal Cannula 2.0 06/30/19 08:00 113 06/30/19 04:00 97.9 94 17 154/77 (102) 100 06/30/19 04:00 2.0 06/30/19 04:00 Nasal Cannula 2.0 Nasal Cannula 2.0 Nasal Cannula 2.0 06/30/19 04:00 114 06/30/19 00:00 98.5 94 18 162/92 (115) 99 06/30/19 00:00 Nasal Cannula 3.0 Nasal Cannula 3.0 Nasal Cannula 3.0 06/30/19 00:00 116 06/29/19 20:15 112 20 97 Nasal Cannula 2.0 28 06/29/19 20:15 97 Nasal Cannula 2.0 28 06/29/19 20:00 3.0 06/29/19 20:00 Nasal Cannula 2.0 Nasal Cannula 2.0 06/29/19 20:00 98.5 94 18 134/69 (90) 99 06/29/19 19:57 121 Intake and Output 06/29/19 06/30/19 19:00 07:00 Intake Total 1055 ml Output Total 1200 ml 300 ml Balance -1200 ml 755 ml Intake Oral 0 ml IV Total 55 ml Hemodialysis 1000 ml Output Urine Total 200 ml 300 ml Hemodialysis UF 1000 ml # Bowel Movements 2 1 Laboratory Tests 06/30/19 06:00: White Blood Count 33.2*H, Red Blood Count 2.76L, Hemoglobin 7.5L, Hematocrit 23.2L, Mean Corpuscular Volume 84, Mean Corpuscular Hemoglobin 27.2, Mean Corpuscular Hemoglobin Concent 32.4, Red Cell Distribution Width 12.4, Platelet Count 140L, Mean Platelet Volume 8.9, Neutrophils (%) (Auto) , Lymphocytes (%) ( Auto) , Monocytes (%) (Auto) , Eosinophils (%) (Auto) , Basophils (%) (Auto) , Differential Total Cells Counted 100, Neutrophils % (Manual) 83H, Lymphocytes % (Manual) 6L, Monocytes % (Manual) 2, Eosinophils % (Manual) 3, Basophils % ( Manual) 0, Metamyelocytes % 2H, Myelocytes % 2H, Band Neutrophils 2, Platelet Estimate Adequate, Platelet Morphology Normal, Polychromasia 1+, Hypochromasia 1 +, Sodium Level 140, Potassium Level 3.7, Chloride Level 99, Carbon Dioxide Level 23, Anion Gap 18H, Blood Urea Nitrogen 78H, Creatinine 3.9H, Estimat Glomerular Filtration Rate 13.2, Glucose Level 114H, Calcium Level 8.9, Total Bilirubin 5.2H, Direct Bilirubin 2.6H, Aspartate Amino Transf (AST/SGOT) 152H, Alanine Aminotransferase (ALT/SGPT) 91H, Alkaline Phosphatase 100, Total Protein 6.3L, Albumin 3.4, Globulin 2.9, Albumin/Globulin Ratio 1.2, Random Vancomycin Level 33.0 Height (Feet): 5 Height (Inches): 4.00 Weight (Pounds): 115 Objective General Appearance: lethargic, confused, on bipap Lines, tubes and drains: peripheral HEENT: normocephalic, atraumatic Neck: non-tender Respiratory/Chest: minimal breath sounds on the left Cardiovascular/Chest: normal peripheral pulses, normal rate, regular rhythm, regularly irregular Abdomen: non tender, soft Rory Oconnor M.D. Jun 30, 2019 19:46
[2019-06-30] MEDS: Dyna-Hex 2% Top Sol 2oz TOPIC SCH (20:48)
[2019-06-30] MEDS: Hydromorphone 0.5mg/0.5ml inj IVP PRN (22:37)
[2019-07-01] VITALS: BP 143/77
[2019-07-01 04:00] VITALS: BP 138/70
[2019-07-01 05:52] LABS: INR 1.7 (0.9-1.1)
[2019-07-01 06:03] LABS: HEMOGLOBIN 7.2 G/DL (12.0-16.0); MEAN CORPUSCULAR VOLUME 83 FL (80-99); PLATELET COUNT 145 K/UL (150-450); RED BLOOD COUNT 2.63 M/UL (4.20-5.40); RED CELL DISTRIBUTION WIDTH 11.8 % (11.6-14.8)
[2019-07-01 06:05] LABS: WHITE BLOOD COUNT 30.2 K/UL (4.8-10.8)
[2019-07-01 06:16] LABS: ALANINE AMINOTRANSFERASE 95 U/L (12-78); ALBUMIN 2.9 G/DL (3.4-5.0); ALBUMIN/GLOBULIN RATIO 0.9 (1.0-2.7); ALKALINE PHOSPHATASE 98 U/L (46-116); ANION GAP 20 mmol/L (5-15); ASPARTATE AMINO TRANSFERASE 106 U/L (15-37); BILIRUBIN,TOTAL 3.7 MG/DL (0.2-1.0); BLOOD UREA NITROGEN 97 mg/dL (7-18); CALCIUM 8.9 MG/DL (8.5-10.1); CARBON DIOXIDE 21 MMOL/L (21-32); CHLORIDE 100 MMOL/L (98-107); GAMMA GLUTAMYL TRANSPEPTIDASE 25 U/L (5-85); POTASSIUM 3.5 MMOL/L (3.5-5.1); SODIUM 140 MMOL/L (136-145)
[2019-07-01 06:20] LABS: BILIRUBIN,DIRECT 2.2 MG/DL (0.0-0.3)
[2019-07-01 08:00] VITALS: BP 145/73
--- NOTE | 2019-07-01 08:20 | General Progress Note ---
Assessment/Plan Problem List: (1) KAREN (acute kidney injury) ICD Codes: N17.9 - Acute kidney failure, unspecified SNOMED: 1840965, [id number] (2) Altered level of consciousness ICD Codes: R40.4 - Transient alteration of awareness SNOMED: 8935996 Status: stable Assessment/Plan: dysphagia elevated LFTS pancreatitis based on elevated lipase fatty liver ESRD pancreatic cyst s/p NGT placement will hold NGTF given possible pancreatitis abd us>>> reviewed repeat labs abx per ID PEG when more stable and if family consent CT with contrast to eval for pancreatitis lipid panel Subjective ROS Limited/Unobtainable: No Allergies: Coded Allergies: No Known Allergies (Unverified , 06/24/19) Objective Last 24 Hour Vital Signs Date Time Temp Pulse Resp B/P (MAP) Pulse Ox O2 Delivery O2 Flow Rate FiO2 07/01/19 04:00 97.2 99 20 138/70 (92) 99 07/01/19 04:00 97 07/01/19 04:00 Nasal Cannula 2.0 Nasal Cannula 2.0 Nasal Cannula 2.0 07/01/19 04:00 2.0 07/01/19 00:00 97.6 99 16 143/77 (99) 99 07/01/19 00:00 Nasal Cannula 2.0 Nasal Cannula 2.0 Nasal Cannula 2.0 07/01/19 00:00 98 06/30/19 20:00 2.0 06/30/19 20:00 94 Nasal Cannula 2.0 28 06/30/19 20:00 98.0 99 18 153/89 (110) 98 06/30/19 20:00 Nasal Cannula 2.0 Nasal Cannula 2.0 Nasal Cannula 2.0 06/30/19 20:00 95 06/30/19 16:00 Nasal Cannula 2.0 Nasal Cannula 2.0 Nasal Cannula 2.0 06/30/19 16:00 2.0 06/30/19 16:00 97.7 98 18 155/94 (114) 95 06/30/19 16:00 100 06/30/19 12:00 91 06/30/19 12:00 Nasal Cannula 2.0 Nasal Cannula 2.0 Nasal Cannula 2.0 06/30/19 12:00 2.0 06/30/19 12:00 97.9 65 18 150/60 (90) 95 06/30/19 09:22 117 158/77 (104) 06/30/19 09:12 100 Nasal Cannula 2.0 28 Intake and Output 06/30/19 07/01/19 19:00 07:00 Intake Total 135 ml 370 ml Output Total 300 ml 400 ml Balance -165 ml -30 ml Free Water 100 ml IV Total 55 ml Tube Feeding 80 ml 270 ml Output Urine Total 300 ml 400 ml # Bowel Movements 1 2 Laboratory Tests 06/30/19 18:00: Stool Occult Blood [Pending] 07/01/19 04:25: White Blood Count 30.2*H, Red Blood Count 2.63L, Hemoglobin 7.2L, Hematocrit 22.0L, Mean Corpuscular Volume 83, Mean Corpuscular Hemoglobin 27.3, Mean Corpuscular Hemoglobin Concent 32.7, Red Cell Distribution Width 11.8, Platelet Count 145L, Mean Platelet Volume 10.0, Neutrophils (%) (Auto) , Lymphocytes (%) (Auto) , Monocytes (%) (Auto) , Eosinophils (%) (Auto) , Basophils (%) (Auto) , Neutrophils % (Manual) [Pending], Lymphocytes % (Manual) [Pending], Platelet Estimate [Pending], Platelet Morphology [Pending], Erythrocyte Sedimentation Rate 70H, Prothrombin Time 17.4H, Prothromb Time International Ratio 1.7H, Activated Partial Thromboplast Time 37H, Sodium Level 140, Potassium Level 3.5, Chloride Level 100, Carbon Dioxide Level 21, Anion Gap 20H, Blood Urea Nitrogen 97H, Creatinine 5.0H, Estimat Glomerular Filtration Rate 9.9, Glucose Level 169H , Calcium Level 8.9, Total Bilirubin 3.7H, Direct Bilirubin 2.2H, Gamma Glutamyl Transpeptidase 25, Aspartate Amino Transf (AST/SGOT) 106H, Alanine Aminotransferase (ALT/SGPT) 95H, Alkaline Phosphatase 98, C-Reactive Protein, Quantitative 11.2H, Total Protein 6.0L, Albumin 2.9L, Globulin 3.1, Albumin/ Globulin Ratio 0.9L, Amylase Level 864*H, Lipase 9250H Height (Feet): 5 Height (Inches): 4.00 Weight (Pounds): 115 General Appearance: lethargic EENT: normal ENT inspection Neck: supple Cardiovascular: normal rate Respiratory/Chest: decreased breath sounds Abdomen: normal bowel sounds, non tender, soft Extremities: non-tender Jun Mena MD Jul 01, 2019 08:20
[2019-07-01] MEDS ORDERED: Omnipaque-300 100ml vial INJ PRN (08:30)
[2019-07-01] MEDS: Pantoprazole Inj IVP SCH (08:58)
[2019-07-01] MEDS: Vancomycin oral 125mg/2.5ml ORAL SCH ×2 (08:58→13:46)
--- NOTE | 2019-07-01 10:15 | Cardiology Progress Note ---
Assessment/Plan Status: stable Assessment/Plan Assessment/Plan Status: stable Assessment/Plan: Assessment Elevated troponin Syncope. Elevated LFT KAREN/CKD Rhabdomyolysis Plan d/c Trend troponin Monitor on telemetry Echocardiogram Stress test prior to discharge Hold heparin PEG tube placement - clear to proceed Maintain HD Abx per ID/pulm Pulmonary toilet Supportive care Subjective Cardiovascular: Reports: no symptoms Respiratory: Reports: no symptoms Gastrointestinal/Abdominal: Reports: no symptoms Genitourinary: Reports: no symptoms Subjective No distress, on roon air, no fevers, BP elevated, creatinine mildly improved, WBC elevated. family deciding on PEG Objective Last 24 Hour Vital Signs Date Time Temp Pulse Resp B/P (MAP) Pulse Ox O2 Delivery O2 Flow Rate FiO2 07/01/19 08:00 2.0 07/01/19 08:00 98.6 94 25 145/73 (97) 96 07/01/19 07:00 85 18 95 Nasal Cannula 2.0 28 07/01/19 07:00 95 Nasal Cannula 2.0 28 07/01/19 04:00 97.2 99 20 138/70 (92) 99 07/01/19 04:00 97 07/01/19 04:00 Nasal Cannula 2.0 Nasal Cannula 2.0 Nasal Cannula 2.0 07/01/19 04:00 2.0 07/01/19 00:00 97.6 99 16 143/77 (99) 99 07/01/19 00:00 Nasal Cannula 2.0 Nasal Cannula 2.0 Nasal Cannula 2.0 07/01/19 00:00 98 06/30/19 20:00 2.0 06/30/19 20:00 94 Nasal Cannula 2.0 28 06/30/19 20:00 98.0 99 18 153/89 (110) 98 06/30/19 20:00 Nasal Cannula 2.0 Nasal Cannula 2.0 Nasal Cannula 2.0 06/30/19 20:00 95 06/30/19 16:00 Nasal Cannula 2.0 Nasal Cannula 2.0 Nasal Cannula 2.0 06/30/19 16:00 2.0 06/30/19 16:00 97.7 98 18 155/94 (114) 95 06/30/19 16:00 100 06/30/19 12:00 91 06/30/19 12:00 Nasal Cannula 2.0 Nasal Cannula 2.0 Nasal Cannula 2.0 06/30/19 12:00 2.0 06/30/19 12:00 97.9 65 18 150/60 (90) 95 General Appearance: no apparent distress, lethargic EENT: PERRL/EOMI, normal ENT inspection, TMs normal, pharynx normal Neck: normal alignment, normal inspection, no JVD Rhythm: NSR Cardiovascular: normal peripheral pulses, normal rate Respiratory/Chest: respiratory distress, accessory muscle use, crackles/rales Abdomen: normal bowel sounds, non tender, no organomegaly Extremities: normal range of motion, non-tender, normal inspection, no calf tenderness, no swelling Neurologic: sheet tester 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 normal, motor weakness, disoriented Intake and Output 06/30/19 07/01/19 19:00 07:00 Intake Total 135 ml 370 ml Output Total 300 ml 400 ml Balance -165 ml -30 ml Free Water 100 ml IV Total 55 ml Tube Feeding 80 ml 270 ml Output Urine Total 300 ml 400 ml # Bowel Movements 1 2 Laboratory Tests Test 06/30/19 18:00 07/01/19 04:25 Stool Occult Blood Pending White Blood Count 30.2 K/UL (4.8-10.8) *H Red Blood Count 2.63 M/UL (4.20-5.40) L Hemoglobin 7.2 G/DL (12.0-16.0) L Hematocrit 22.0 % (37.0-47.0) L Mean Corpuscular Volume 83 FL (80-99) Mean Corpuscular Hemoglobin 27.3 PG (27.0-31.0) Mean Corpuscular Hemoglobin Concent 32.7 G/DL (32.0-36.0) Red Cell Distribution Width 11.8 % (11.6-14.8) Platelet Count 145 K/UL (150-450) L Mean Platelet Volume 10.0 FL (6.5-10.1) Neutrophils (%) (Auto) % (45.0-75.0) Lymphocytes (%) (Auto) % (20.0-45.0) Monocytes (%) (Auto) % (1.0-10.0) Eosinophils (%) (Auto) % (0.0-3.0) Basophils (%) (Auto) % (0.0-2.0) Neutrophils % (Manual) Pending Lymphocytes % (Manual) Pending Platelet Estimate Pending Platelet Morphology Pending Erythrocyte Sedimentation Rate 70 MM/HR (0-30) H Prothrombin Time 17.4 SEC (9.30-11.50) H Prothromb Time International Ratio 1.7 (0.9-1.1) H Activated Partial Thromboplast Time 37 SEC (23-33) H Sodium Level 140 MMOL/L (136-145) Potassium Level 3.5 MMOL/L (3.5-5.1) Chloride Level 100 MMOL/L (98-107) Carbon Dioxide Level 21 MMOL/L (21-32) Anion Gap 20 mmol/L (5-15) H Blood Urea Nitrogen 97 mg/dL (7-18) H Creatinine 5.0 MG/DL (0.55-1.30) H Estimat Glomerular Filtration Rate 9.9 mL/min (>60) Glucose Level 169 MG/DL (74-106) H Calcium Level 8.9 MG/DL (8.5-10.1) Total Bilirubin 3.7 MG/DL (0.2-1.0) H Direct Bilirubin 2.2 MG/DL (0.0-0.3) H Gamma Glutamyl Transpeptidase 25 U/L (5-85) Aspartate Amino Transf (AST/SGOT) 106 U/L (15-37) H Alanine Aminotransferase (ALT/SGPT) 95 U/L (12-78) H Alkaline Phosphatase 98 U/L (46-116) C-Reactive Protein, Quantitative 11.2 mg/dL (0.00-0.90) H Total Protein 6.0 G/DL (6.4-8.2) L Albumin 2.9 G/DL (3.4-5.0) L Globulin 3.1 g/dL Albumin/Globulin Ratio 0.9 (1.0-2.7) L Amylase Level 864 U/L (25-115) *H Lipase 9250 U/L (73-393) H Microbiology Date/Time Source Procedure Growth Status 06/29/19 14:25 Blood Blood Culture - Preliminary NO GROWTH AFTER 24 HOURS Resulted 06/29/19 14:10 Blood Blood Culture - Preliminary NO GROWTH AFTER 24 HOURS Resulted 06/30/19 18:00 Stool Clostridium difficile Toxin Assay - Final Complete 06/29/19 05:00 External Cath Urine Culture - Preliminary NO GROWTH Resulted Melchor Cerna MD Jul 01, 2019 10:15
[2019-07-01] MEDS: Hydromorphone 0.5mg/0.5ml inj IVP PRN ×2 (11:54→18:16)
[2019-07-01 12:00] VITALS: BP 133/63
--- NOTE | 2019-07-01 12:15 | Surgery Progress Note ---
Surgery Progress Note Subjective Procedure Performed Left femoral temporary hemodialysis catheter insertion Additional Comments no acute events comfortable stable Objective Last 24 Hour Vital Signs Date Time Temp Pulse Resp B/P (MAP) Pulse Ox O2 Delivery O2 Flow Rate FiO2 07/01/19 08:00 2.0 07/01/19 08:00 Nasal Cannula 2.0 Nasal Cannula 2.0 Nasal Cannula 2.0 07/01/19 08:00 98.6 94 25 145/73 (97) 96 07/01/19 08:00 97 07/01/19 07:00 85 18 95 Nasal Cannula 2.0 28 07/01/19 07:00 95 Nasal Cannula 2.0 28 07/01/19 04:00 97.2 99 20 138/70 (92) 99 07/01/19 04:00 97 07/01/19 04:00 Nasal Cannula 2.0 Nasal Cannula 2.0 Nasal Cannula 2.0 07/01/19 04:00 2.0 07/01/19 00:00 97.6 99 16 143/77 (99) 99 07/01/19 00:00 Nasal Cannula 2.0 Nasal Cannula 2.0 Nasal Cannula 2.0 07/01/19 00:00 98 06/30/19 20:00 2.0 06/30/19 20:00 94 Nasal Cannula 2.0 28 06/30/19 20:00 98.0 99 18 153/89 (110) 98 06/30/19 20:00 Nasal Cannula 2.0 Nasal Cannula 2.0 Nasal Cannula 2.0 06/30/19 20:00 95 06/30/19 16:00 Nasal Cannula 2.0 Nasal Cannula 2.0 Nasal Cannula 2.0 06/30/19 16:00 2.0 06/30/19 16:00 97.7 98 18 155/94 (114) 95 06/30/19 16:00 100 I&O Intake and Output 06/30/19 07/01/19 19:00 07:00 Intake Total 135 ml 370 ml Output Total 300 ml 400 ml Balance -165 ml -30 ml Free Water 100 ml IV Total 55 ml Tube Feeding 80 ml 270 ml Output Urine Total 300 ml 400 ml # Bowel Movements 1 2 Dressing: dry Wound: clean Cardiovascular: RSR Respiratory: clear Abdomen: soft, non-tender, present bowel sounds Extremities: no cyanosis Laboratory Tests Test 06/30/19 18:00 07/01/19 04:25 Stool Occult Blood Positive (NEGATIVE) White Blood Count 30.2 K/UL (4.8-10.8) *H Red Blood Count 2.63 M/UL (4.20-5.40) L Hemoglobin 7.2 G/DL (12.0-16.0) L Hematocrit 22.0 % (37.0-47.0) L Mean Corpuscular Volume 83 FL (80-99) Mean Corpuscular Hemoglobin 27.3 PG (27.0-31.0) Mean Corpuscular Hemoglobin Concent 32.7 G/DL (32.0-36.0) Red Cell Distribution Width 11.8 % (11.6-14.8) Platelet Count 145 K/UL (150-450) L Mean Platelet Volume 10.0 FL (6.5-10.1) Neutrophils (%) (Auto) % (45.0-75.0) Lymphocytes (%) (Auto) % (20.0-45.0) Monocytes (%) (Auto) % (1.0-10.0) Eosinophils (%) (Auto) % (0.0-3.0) Basophils (%) (Auto) % (0.0-2.0) Differential Total Cells Counted 100 Neutrophils % (Manual) 90 % (45-75) H Lymphocytes % (Manual) 3 % (20-45) L Monocytes % (Manual) 7 % (1-10) Eosinophils % (Manual) 0 % (0-3) Basophils % (Manual) 0 % (0-2) Band Neutrophils 0 % (0-8) Platelet Estimate Decreased L Platelet Morphology Normal Hypochromasia 1+ Erythrocyte Sedimentation Rate 70 MM/HR (0-30) H Prothrombin Time 17.4 SEC (9.30-11.50) H Prothromb Time International Ratio 1.7 (0.9-1.1) H Activated Partial Thromboplast Time 37 SEC (23-33) H Sodium Level 140 MMOL/L (136-145) Potassium Level 3.5 MMOL/L (3.5-5.1) Chloride Level 100 MMOL/L (98-107) Carbon Dioxide Level 21 MMOL/L (21-32) Anion Gap 20 mmol/L (5-15) H Blood Urea Nitrogen 97 mg/dL (7-18) H Creatinine 5.0 MG/DL (0.55-1.30) H Estimat Glomerular Filtration Rate 9.9 mL/min (>60) Glucose Level 169 MG/DL (74-106) H Calcium Level 8.9 MG/DL (8.5-10.1) Total Bilirubin 3.7 MG/DL (0.2-1.0) H Direct Bilirubin 2.2 MG/DL (0.0-0.3) H Gamma Glutamyl Transpeptidase 25 U/L (5-85) Aspartate Amino Transf (AST/SGOT) 106 U/L (15-37) H Alanine Aminotransferase (ALT/SGPT) 95 U/L (12-78) H Alkaline Phosphatase 98 U/L (46-116) C-Reactive Protein, Quantitative 11.2 mg/dL (0.00-0.90) H Total Protein 6.0 G/DL (6.4-8.2) L Albumin 2.9 G/DL (3.4-5.0) L Globulin 3.1 g/dL Albumin/Globulin Ratio 0.9 (1.0-2.7) L Amylase Level 864 U/L (25-115) *H Lipase 9250 U/L (73-393) H Plan Problems: (1) Fall Assessment & Plan: 88 year old female s/p fall now with renal insufficiency requiring HD spoke with family. she has known CKD multiple decubitus ulcers from being down malnutrition line placed see documentation trend labs abx HD thank you prognosis guarded family at bedside cxr noted pna worsening DAILY ESTIMATED NEEDS: Needs based on Wounds, 51.8kg 30-35 kcals/kg [id number] total kcals 1.25-1.5 g protein/kg 65-78 g total protein 25-30ml/kcal mL/kg [id number] total fluid mLs NUTRITION DIAGNOSIS: * Increased kcal and pro needs r/t wound healing and renal failure as evidenced by, s/p fall w/ pressure wounds per MD, refer to WC eval, ARF needing HD. * Swallowing difficulty R/T dysphagia as evidenced by s/p NGT placement, plan for PEG placement w/ consent and medical clearance, TF held for possible pancreatitis. CURRENT TF:NPO- TF HELD FOR POSSIBLE PANCREATITIS ENTERAL NUTRITION RECOMMENDATIONS: NEPRO @36ml/hr x24 hrs to provide 864ml, 1555 kcal, 70g pro, 628ml free H2O free H2O - As medically appropriate, resume TF - Start @16ml/hr for 8 hrs, advance as tolerated 5ml/hr q4-6 hrs to goal. - Flush per MD/ HOB Over 30 degrees - PT AT HIGH RISK FOR REFEEDING SYNDROME, MONITOR LYTES DAILY, REPLETE NEEDED ADDITIONAL RECOMMENDATIONS: 1) Monitor ability to resume TF NGT feeds held 06/30 for possible pancreatitis. If unable to feed via GI, consider initiating TPN due to proloned NPO, minimal intake status 2) WOUND CARE: W/ active TF order add VASQUEZ in 4oz H2O BID 3) Rec added dextrose when NPO 4) Calibrated bed scale wts daily 5) Monitor lytes closely w/ TF- high risk for refeeding syndrome (2) Altered level of consciousness (3) Fracture of lumbar spine Assessment & Plan: Lungs: There is increased density at the lung bases likely atelectasis. Aorta is moderately calcified. There is a small hiatal hernia.. Liver: Grossly unremarkable. There is artifact limiting evaluation in addition to the fact that no IV or oral contrast was given for this examination. Gallbladder/biliary system: Grossly unremarkable. Spleen: Unremarkable Pancreas: In the area of the pancreatic tail there is a 1.6 cm nodular density which may be cystic. Further evaluation is recommended. Kidneys/Bladder: Vascular calcifications are quite extensive and extend to the hilum of both kidneys. Evaluation for punctate nonobstructive stones is limited in this setting but no definite stones seen. There is no hydronephrosis. Extensive breathing motion limiting evaluation.. Adrenal glands: Unremarkable Bowel: Patient's prior partial bowel resection in the right lower abdomen with anastomotic sutures noted. There is no evidence of a bowel obstruction or inflammatory changes. Appendix is not seen definitely but there are no signs of appendicitis. A few diverticula are noted within the colon. Aorta/IVC: There is a severe calcification of aorta and multiple branches of the aorta. Peritoneum: There is no free fluid. Bones: Bones are diffusely osteopenic. Multiple compression fracture deformities of several vertebra noted including lower thoracic vertebra and L1. There is narrowing of intervertebral discs and accompanying endplate osteophyte formation. Hypertrophied facet joints also demonstrated. Scoliosis of the lower thoracic spine convex to the right and left convex lumbar scoliosis noted. IMPRESSION: No acute findings appreciated. Study limited by the lack of intravenous oral contrast as well as extensive motion artifact. 1.6 cm probable cystic lesion in the pancreatic tail. This requires further evaluation with the contrast CT or MR. Status post previous partial bowel resection. 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 Degenerative changes as described above. (4) Rhabdomyolysis (5) KAREN (acute kidney injury) (6) Decubitus skin ulcer Assessment & Plan: Pt presented on admission with multiple pressure injuries. Pt's niece Sarah stated pt lives alone and found pt laying on her R side on floor in patient's home.Niece believes pt has been laying on floor for approx 5 days. DTPI noted to R cheek. Base of wound is purple with marginal erythema along borders.(L)1.2cm x (W)1.6cm. Unstageable pressure injury R shoulder. Base of wound is 100% necrotic with marginal erythema along borders.(L)4.8cm x (W).3.5cm . DTPI R humerus. Base of wound is fluctuant and maroon in colour with surrounding erythema. (L)10.6cm x (W)3.1cm. DTPI R elbow.Base of wound is indurated with scattered areas that are purple in colour. An area of fluctuance in center. Marginal erythema along borders.(L) 5.3cm x (W)10.4cm. Partially opened Sacral DTPI. Base of wound is purple with surrounding erythema. Partial open wound marco a cleft that is corby and moist.(L)5.3cm x (W) 4.5cm.NO odor or exudate noted. Non-blanching erythema periwound. DTPI L ischium . Base of wound is purple and indurated.(L)6cm x (W)7.5cm. Unstageable pressure injury R hip. Base of wound is 75% necrotic, 25% mixed erythema and slough. Borders are moist,soft with scattered areas that are black. Periwound is dusky and indurated.No odor or exudate noted. DTPI at posterior and medial aspect of L heel. Base of wound is maroon and fluctuant(L)4cm x (W)7cm. Unstageable pressure injury L Hallux. Base of wound is 100% necrotic but soft. Borders are erythematous. Periwound without induration or fluctuance.(L)2.5cm x (W)3cm. DTPI medial L malleolus. Base of wound fluctuant and maroon in colour.(L) 0.3cm x (W)1.2cm. DTPI medial L malleolus. Base of wound fluctuant and maroon in colour with Marginal erythema along borders.(L)0.3cm x (W)1.2cm. Intact blood filled blisters noted to L 1st Metatarsal laterally and head of metatarsal. Intact blood filled blisters noted to heads of L 2nd and L 3rd metatarsals. DTPI noted to posterior and lateral R Heel. Posterior R heel is maroon in colour and fluctuant at base. Laterally ,R heel is black and fluctuant at base.Periwound is boggy and non-blanchable.(L)7cm x (W)8cm. Unstageable pressure injury lateral R malleolus. Base of wound is 100% necrotic and dry.Marginal erythema along borders.Periwound is fluctuant and erythematous( L)1.2cm x (W)1.5cm. DTPI distal/lateral R foot. Base of wound is fluctuant and maroon in colour.(L) 1.3cm x (W)1.7cm. DTPI lateral R 5th metatarsal. Base of wound is maroon and fluctuant with marginal erythema along borders .(L)0.7cm x (W)1.1cm Tx.Plan: Cleanse Wound R shoulder with Saline. Apply Therahoney. Apply Cavilon Skin barrier periwound. Cover with Optifoam drsg every 3 days and prn. Cleanse R hip wound with Saline. Apply Therahoney with 4x4 Gauze. Apply Moisture Barrier Paste periwound.Cover with Optifoam drsg. Daily and prn. Apply Moisture Barrier Paste to Sacral wound and L Ischium. Cover each wound with Optifoam drsg every 3 days and prn. Apply Betadine to R humerus and R elbow . Cover each wound with Optifoam drsg. Change every 3 days and prn. Apply Betadine to wounds R heel, R malleolus and R foot . Cover each wound with Optifoam drsg every 3 days and prn. Apply Betadine to wounds L heel ,L medial malleolus and L foot. Cover each wound with Optifoam drsgs every 3 Days and prn. Air Fluidized Mattress. Reposition at least every 2hours or as tolerated. Place Pillow between knees. Off-load heels with pillow. Anshul Nava Jul 01, 2019 12:15
--- NOTE | 2019-07-01 13:36 | Diagnostic Imaging Report ---
Indication: Dyspnea Comparison: 06/30/2019 A single view chest radiograph was obtained. Findings: Interstitial densities demonstrated with cardiomegaly. There is blunting of the left costophrenic angle. There is a weighted feeding tube the tip of which is projected over the antrum and pyloric region. IMPRESSION: Mild interstitial edema presumably due to heart failure. Correlate clinically
--- NOTE | 2019-07-01 14:25 | Pulmonology Progress Note ---
Assessment/Plan Assessment/Plan IMPRESSION: 1. Extensive left lung pneumonia. 2. Pulmonary edema. 3. Respiratory failure; now off BiPAP DISCUSSION: Continue broad-spectrum antibiotics. Dialysis per renal Use BiPAP prn. Supplemental O2. I will follow carefully. Abrahan Samaniego M.D. Subjective Interval Events: no new events Constitutional: Reports: no symptoms HEENT: Repors: no symptoms Respiratory: Reports: no symptoms Cardiovascular: Reports: no symptoms Gastrointestinal/Abdominal: Reports: no symptoms Allergies: Coded Allergies: No Known Allergies (Unverified , 06/24/19) Objective Last 24 Hour Vital Signs Date Time Temp Pulse Resp B/P (MAP) Pulse Ox O2 Delivery O2 Flow Rate FiO2 07/01/19 08:00 2.0 07/01/19 08:00 Nasal Cannula 2.0 Nasal Cannula 2.0 Nasal Cannula 2.0 07/01/19 08:00 98.6 94 25 145/73 (97) 96 07/01/19 08:00 97 07/01/19 07:00 85 18 95 Nasal Cannula 2.0 28 07/01/19 07:00 95 Nasal Cannula 2.0 28 07/01/19 04:00 97.2 99 20 138/70 (92) 99 07/01/19 04:00 97 07/01/19 04:00 Nasal Cannula 2.0 Nasal Cannula 2.0 Nasal Cannula 2.0 07/01/19 04:00 2.0 07/01/19 00:00 97.6 99 16 143/77 (99) 99 07/01/19 00:00 Nasal Cannula 2.0 Nasal Cannula 2.0 Nasal Cannula 2.0 07/01/19 00:00 98 06/30/19 20:00 2.0 06/30/19 20:00 94 Nasal Cannula 2.0 28 06/30/19 20:00 98.0 99 18 153/89 (110) 98 06/30/19 20:00 Nasal Cannula 2.0 Nasal Cannula 2.0 Nasal Cannula 2.0 06/30/19 20:00 95 06/30/19 16:00 Nasal Cannula 2.0 Nasal Cannula 2.0 Nasal Cannula 2.0 06/30/19 16:00 2.0 06/30/19 16:00 97.7 98 18 155/94 (114) 95 06/30/19 16:00 100 Intake and Output 06/30/19 07/01/19 19:00 07:00 Intake Total 135 ml 370 ml Output Total 300 ml 400 ml Balance -165 ml -30 ml Free Water 100 ml IV Total 55 ml Tube Feeding 80 ml 270 ml Output Urine Total 300 ml 400 ml # Bowel Movements 1 2 General Appearance: no acute distress HEENT: normocephalic Respiratory/Chest: chest wall non-tender Cardiovascular: normal peripheral pulses Abdomen: normal bowel sounds Microbiology Date/Time Source Procedure Growth Status 06/29/19 14:25 Blood Blood Culture - Preliminary NO GROWTH AFTER 24 HOURS Resulted 06/29/19 14:10 Blood Blood Culture - Preliminary NO GROWTH AFTER 24 HOURS Resulted 06/30/19 18:00 Stool Clostridium difficile Toxin Assay - Final Complete 06/29/19 05:00 External Cath Urine Culture - Preliminary NO GROWTH Resulted Laboratory Tests 06/30/19 18:00: Stool Occult Blood Positive 07/01/19 04:25: White Blood Count 30.2*H, Red Blood Count 2.63L, Hemoglobin 7.2L, Hematocrit 22.0L, Mean Corpuscular Volume 83, Mean Corpuscular Hemoglobin 27.3, Mean Corpuscular Hemoglobin Concent 32.7, Red Cell Distribution Width 11.8, Platelet Count 145L, Mean Platelet Volume 10.0, Neutrophils (%) (Auto) , Lymphocytes (%) (Auto) , Monocytes (%) (Auto) , Eosinophils (%) (Auto) , Basophils (%) (Auto) , Differential Total Cells Counted 100, Neutrophils % (Manual) 90H, Lymphocytes % (Manual) 3L, Monocytes % (Manual) 7, Eosinophils % (Manual) 0, Basophils % ( Manual) 0, Band Neutrophils 0, Platelet Estimate DecreasedL, Platelet Morphology Normal, Hypochromasia 1+, Erythrocyte Sedimentation Rate 70H, Prothrombin Time 17.4H, Prothromb Time International Ratio 1.7H, Activated Partial Thromboplast Time 37H, Sodium Level 140, Potassium Level 3.5, Chloride Level 100, Carbon Dioxide Level 21, Anion Gap 20H, Blood Urea Nitrogen 97H, Creatinine 5.0H, Estimat Glomerular Filtration Rate 9.9, Glucose Level 169H, Calcium Level 8.9, Total Bilirubin 3.7H, Direct Bilirubin 2.2H, Gamma Glutamyl Transpeptidase 25, Aspartate Amino Transf (AST/SGOT) 106H, Alanine Aminotransferase (ALT/SGPT) 95H, Alkaline Phosphatase 98, C-Reactive Protein, Quantitative 11.2H, Total Protein 6.0L, Albumin 2.9L, Globulin 3.1, Albumin/ Globulin Ratio 0.9L, Amylase Level 864*H, Lipase 9250H Current Medications Medications (Trade) Dose Ordered Sig/Joan Route PRN Reason Start Time Stop Time Status Last Admin Dose Admin Acetaminophen (Tylenol) 650 mg Q4H PRN ORAL Mild Pain (Pain Scale 1-3) 06/24/19 19:52 07/24/19 19:51 06/30/19 18:03 Acetylcysteine (Mucomyst) 100 mg Q4HRT PRN HHN Shortness of Breath 06/25/19 23:45 07/25/19 22:59 Albumin Human 100 ml @ 100 mls/hr NEEDED PRN IV DIALYSIS 06/27/19 14:00 07/27/19 13:59 Albumin Human 100 ml @ 100 mls/hr ONCE ONCE IV 07/01/19 13:30 07/01/19 14:29 Barium Sulfate (Readi-Cat 2) 450 ml NOW PRN ORAL Radiology Procedure 07/01/19 08:30 07/03/19 08:17 Chlorhexidine Gluconate (Cari-Hex 2%) 1 applic DAILY@2000 TOPIC 06/26/19 20:00 07/26/19 19:59 06/30/19 20:48 Dextrose (Dextrose 50%) 25 ml Q30M PRN IV Hypoglycemia 06/24/19 19:52 07/24/19 19:51 Dextrose (Dextrose 50%) 50 ml Q30M PRN IV Hypoglycemia 06/24/19 19:52 07/24/19 19:51 Diphenhydramine HCl (Benadryl) 25 mg Q6H PRN ORAL Itching/Pruritis 06/24/19 19:52 07/24/19 19:51 Furosemide (Lasix) 40 mg DAILY IV 06/30/19 20:00 07/30/19 19:59 07/01/19 08:59 Hydromorphone HCl (Dilaudid) 0.5 mg Q3H PRN IVP Pain 4-10 06/25/19 14:30 07/02/19 14:29 07/01/19 11:54 Iohexol (OMNIPAQUE-300 100ml) 100 ml NOW PRN INJ Radiology Procedure 07/01/19 08:30 07/03/19 08:17 Linezolid 300 ml @ 300 mls/hr EVERY 12 HOURS IVPB 06/30/19 21:00 07/07/19 20:59 07/01/19 08:59 Meropenem 500 mg/ Sodium Chloride 50 ml @ 100 mls/hr Q24HRS IVPB 06/30/19 17:00 07/05/19 16:59 06/30/19 17:36 Ondansetron HCl (Zofran) 4 mg Q6H PRN IVP Nausea & Vomiting 06/24/19 19:52 07/24/19 19:51 Pantoprazole (Protonix) 40 mg DAILY IVP 06/30/19 09:00 07/30/19 08:59 07/01/19 08:58 Vancomycin HCl (Firvanq) 125 mg FOUR TIMES A DAY ORAL 06/29/19 14:00 07/06/19 13:59 07/01/19 13:46 Abrahan Samaniego MD Jul 01, 2019 14:25
--- NOTE | 2019-07-01 14:56 | Nephrology Progress Note ---
Assessment/Plan Plan #acute renal failure on possible CKD- due to rhabdo- UA with + RBC- concerns for developing ATN #Uremia #complete opacification of the left hemithorax- likely aspiration pneumonia #lactic acidosis #Hypernatremia- improved #AMS #elevated liver enzyme - HD today - ass need for HD daily - no IVF - trial of lasix 40 IV daily - pulmonary eval - on room air now - renal US-> No obstructive nephropathy. - monitor liver enzymes - continue with abx- PO vanco - cardiology eval noted - stress test prior to DC #FULLCODE for now Subjective Subjective seen on HD WBC 30 BUN uptrending BP stable 700cc of urine documented on room air CT chest: Extensive airspace consolidation in the left lung involving the left perihilar, upper lobe and left lower lobe. Findings suspicious for pneumonia, especially aspiration given the abrupt onset. Please correlate clinically. Partial atelectasis of the left lower lobe also noted Objective Objective Last 24 Hour Vital Signs Date Time Temp Pulse Resp B/P (MAP) Pulse Ox O2 Delivery O2 Flow Rate FiO2 07/01/19 12:00 Nasal Cannula 2.0 Nasal Cannula 2.0 Nasal Cannula 2.0 07/01/19 08:00 2.0 07/01/19 08:00 Nasal Cannula 2.0 Nasal Cannula 2.0 Nasal Cannula 2.0 07/01/19 08:00 98.6 94 25 145/73 (97) 96 07/01/19 08:00 97 07/01/19 07:00 85 18 95 Nasal Cannula 2.0 28 07/01/19 07:00 95 Nasal Cannula 2.0 28 07/01/19 04:00 97.2 99 20 138/70 (92) 99 07/01/19 04:00 97 07/01/19 04:00 Nasal Cannula 2.0 Nasal Cannula 2.0 Nasal Cannula 2.0 07/01/19 04:00 2.0 07/01/19 00:00 97.6 99 16 143/77 (99) 99 07/01/19 00:00 Nasal Cannula 2.0 Nasal Cannula 2.0 Nasal Cannula 2.0 07/01/19 00:00 98 06/30/19 20:00 2.0 06/30/19 20:00 94 Nasal Cannula 2.0 28 06/30/19 20:00 98.0 99 18 153/89 (110) 98 06/30/19 20:00 Nasal Cannula 2.0 Nasal Cannula 2.0 Nasal Cannula 2.0 06/30/19 20:00 95 06/30/19 16:00 Nasal Cannula 2.0 Nasal Cannula 2.0 Nasal Cannula 2.0 06/30/19 16:00 2.0 06/30/19 16:00 97.7 98 18 155/94 (114) 95 06/30/19 16:00 100 Intake and Output 06/30/19 07/01/19 19:00 07:00 Intake Total 135 ml 370 ml Output Total 300 ml 400 ml Balance -165 ml -30 ml Free Water 100 ml IV Total 55 ml Tube Feeding 80 ml 270 ml Output Urine Total 300 ml 400 ml # Bowel Movements 1 2 Laboratory Tests 06/30/19 18:00: Stool Occult Blood Positive 07/01/19 04:25: White Blood Count 30.2*H, Red Blood Count 2.63L, Hemoglobin 7.2L, Hematocrit 22.0L, Mean Corpuscular Volume 83, Mean Corpuscular Hemoglobin 27.3, Mean Corpuscular Hemoglobin Concent 32.7, Red Cell Distribution Width 11.8, Platelet Count 145L, Mean Platelet Volume 10.0, Neutrophils (%) (Auto) , Lymphocytes (%) (Auto) , Monocytes (%) (Auto) , Eosinophils (%) (Auto) , Basophils (%) (Auto) , Differential Total Cells Counted 100, Neutrophils % (Manual) 90H, Lymphocytes % (Manual) 3L, Monocytes % (Manual) 7, Eosinophils % (Manual) 0, Basophils % ( Manual) 0, Band Neutrophils 0, Platelet Estimate DecreasedL, Platelet Morphology Normal, Hypochromasia 1+, Erythrocyte Sedimentation Rate 70H, Prothrombin Time 17.4H, Prothromb Time International Ratio 1.7H, Activated Partial Thromboplast Time 37H, Sodium Level 140, Potassium Level 3.5, Chloride Level 100, Carbon Dioxide Level 21, Anion Gap 20H, Blood Urea Nitrogen 97H, Creatinine 5.0H, Estimat Glomerular Filtration Rate 9.9, Glucose Level 169H, Calcium Level 8.9, Total Bilirubin 3.7H, Direct Bilirubin 2.2H, Gamma Glutamyl Transpeptidase 25, Aspartate Amino Transf (AST/SGOT) 106H, Alanine Aminotransferase (ALT/SGPT) 95H, Alkaline Phosphatase 98, C-Reactive Protein, Quantitative 11.2H, Total Protein 6.0L, Albumin 2.9L, Globulin 3.1, Albumin/ Globulin Ratio 0.9L, Amylase Level 864*H, Lipase 9250H Height (Feet): 5 Height (Inches): 4.00 Weight (Pounds): 115 Objective General Appearance: lethargic, confused, on bipap Lines, tubes and drains: peripheral HEENT: normocephalic, atraumatic Neck: non-tender Respiratory/Chest: minimal breath sounds on the left Cardiovascular/Chest: normal peripheral pulses, normal rate, regular rhythm, regularly irregular Abdomen: non tender, soft Rory Oconnor M.D. Jul 01, 2019 14:56
--- NOTE | 2019-07-01 15:58 | General Progress Note ---
Assessment/Plan Status: stable Assessment/Plan: #Rhabdomyolosis #KAREN #Acute renal failure - on HD UF #Uremic encephalopathy #Anion gap metabolic acidosis #Lactic acidosis -resolved -renal US-> No obstructive nephropathy -renal function slowly improving -Nephrology following: no IVF, HD UF per nephro #Left lung PNA - likely aspiration #Acute hypoxic respiratory failure s/p BiPAP - improved #Strep Viridans bacteremia #Worsening Leukocytosis #loose stools Noted to be acutely hypoxic on early AM of 06/25 -s/p BiPAP -> NC/room air intermittently -CT chest, CXR with left lung infiltrate. -ABG prn. -Pulmonology following -echo negative for vegetations -CXR 06/28: Bilateral interstitial thickening and patchy airspace opacities in the left lung, similar to prior study given differences in technique. -ID following - Vanc/zosyn (06/25 -), PO Vanc -Stool C. diff negative, can likely stop PO vanco -Worsening leukocytosis, repeat blood cultures from 06/28 negative so far #Dysphagia -NGT for feeding for now. May need speech therapy -> PEG once more stable per GI #L1 vertebral fracture - likely old seen on imaging, likely old. -reassurance provided to family. #Transaminitis #Acute pancreatitis ?from dehydration, abd exam benign. -continue to trend LFT's. -GI following #Type 2 NSTEMI likely demand in setting of renal failure. EKG wnl. -no need to trend. -cardiology consulted - pt will need stress test prior to d/c #Pressure wounds. -General surgery consulted for wound care, central line insertion on 06/24 -Cont. wound care and offloading Time spent: 36 mins, >50% on coordination of care and chart review. I spent an additional 35 minutes on review of medical records including prior outside hospital records, consult notes, progress notes, procedures, imaging, labs, hemodynamics, and other clinical documentation. Subjective Date patient seen: Jul 01, 2019 Time patient seen: 11:10 ROS Limited/Unobtainable: Yes Allergies: Coded Allergies: No Known Allergies (Unverified , 06/24/19) Subjective Follow up for KAREN, acute pancreatitis, rhabdo. Patient semi-alert, unable to communicate Lipase noted to be markedly elevated today Objective Last 24 Hour Vital Signs Date Time Temp Pulse Resp B/P (MAP) Pulse Ox O2 Delivery O2 Flow Rate FiO2 07/01/19 12:00 98.0 84 24 133/63 (86) 100 07/01/19 12:00 2.0 07/01/19 12:00 75 07/01/19 12:00 Nasal Cannula 2.0 Nasal Cannula 2.0 Nasal Cannula 2.0 07/01/19 08:00 2.0 07/01/19 08:00 Nasal Cannula 2.0 Nasal Cannula 2.0 Nasal Cannula 2.0 07/01/19 08:00 98.6 94 25 145/73 (97) 96 07/01/19 08:00 97 07/01/19 07:00 85 18 95 Nasal Cannula 2.0 28 07/01/19 07:00 95 Nasal Cannula 2.0 28 07/01/19 04:00 97.2 99 20 138/70 (92) 99 07/01/19 04:00 97 07/01/19 04:00 Nasal Cannula 2.0 Nasal Cannula 2.0 Nasal Cannula 2.0 07/01/19 04:00 2.0 07/01/19 00:00 97.6 99 16 143/77 (99) 99 07/01/19 00:00 Nasal Cannula 2.0 Nasal Cannula 2.0 Nasal Cannula 2.0 07/01/19 00:00 98 06/30/19 20:00 2.0 06/30/19 20:00 94 Nasal Cannula 2.0 28 06/30/19 20:00 98.0 99 18 153/89 (110) 98 06/30/19 20:00 Nasal Cannula 2.0 Nasal Cannula 2.0 Nasal Cannula 2.0 06/30/19 20:00 95 06/30/19 16:00 Nasal Cannula 2.0 Nasal Cannula 2.0 Nasal Cannula 2.0 06/30/19 16:00 2.0 06/30/19 16:00 97.7 98 18 155/94 (114) 95 06/30/19 16:00 100 Intake and Output 06/30/19 07/01/19 19:00 07:00 Intake Total 135 ml 370 ml Output Total 300 ml 400 ml Balance -165 ml -30 ml Free Water 100 ml IV Total 55 ml Tube Feeding 80 ml 270 ml Output Urine Total 300 ml 400 ml # Bowel Movements 1 2 Laboratory Tests 06/30/19 18:00: Stool Occult Blood Positive 07/01/19 04:25: White Blood Count 30.2*H, Red Blood Count 2.63L, Hemoglobin 7.2L, Hematocrit 22.0L, Mean Corpuscular Volume 83, Mean Corpuscular Hemoglobin 27.3, Mean Corpuscular Hemoglobin Concent 32.7, Red Cell Distribution Width 11.8, Platelet Count 145L, Mean Platelet Volume 10.0, Neutrophils (%) (Auto) , Lymphocytes (%) (Auto) , Monocytes (%) (Auto) , Eosinophils (%) (Auto) , Basophils (%) (Auto) , Differential Total Cells Counted 100, Neutrophils % (Manual) 90H, Lymphocytes % (Manual) 3L, Monocytes % (Manual) 7, Eosinophils % (Manual) 0, Basophils % ( Manual) 0, Band Neutrophils 0, Platelet Estimate DecreasedL, Platelet Morphology Normal, Hypochromasia 1+, Erythrocyte Sedimentation Rate 70H, Prothrombin Time 17.4H, Prothromb Time International Ratio 1.7H, Activated Partial Thromboplast Time 37H, Sodium Level 140, Potassium Level 3.5, Chloride Level 100, Carbon Dioxide Level 21, Anion Gap 20H, Blood Urea Nitrogen 97H, Creatinine 5.0H, Estimat Glomerular Filtration Rate 9.9, Glucose Level 169H, Calcium Level 8.9, Total Bilirubin 3.7H, Direct Bilirubin 2.2H, Gamma Glutamyl Transpeptidase 25, Aspartate Amino Transf (AST/SGOT) 106H, Alanine Aminotransferase (ALT/SGPT) 95H, Alkaline Phosphatase 98, C-Reactive Protein, Quantitative 11.2H, Total Protein 6.0L, Albumin 2.9L, Globulin 3.1, Albumin/ Globulin Ratio 0.9L, Amylase Level 864*H, Lipase 9250H Height (Feet): 5 Height (Inches): 4.00 Weight (Pounds): 115 General Appearance: no apparent distress, confused Neck: normal alignment, supple Cardiovascular: normal rate, regular rhythm Respiratory/Chest: lungs clear, normal breath sounds Abdomen: non tender, soft Neurologic: 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
[2019-07-01 16:00] VITALS: BP 161/74
--- NOTE | 2019-07-01 17:21 | Infectious Diseases Prog Note ---
Assessment/Plan Assessment/Plan ASSESSMENT AND PLAN: 1. streptococcus viridans bacteremia, ? endocarditis, aspiration pna/hcap, atx, sepsis, leukocytosis, fevers, sob, arf, rhabdomyolysis c.diff. - negative, wounds noted, pancreatitis, elevated lft's, elevated TB, ? biliary sepsis, ? cholecystitis, ? cholangitis - meropenem, zyvox - monitor labs and chest x-ray - TTE - no vegetation mentioned in report - f/u on cultures negative - CT ordered, GI f/u, US abdomen without acute findings - continue treatment per primary and consultants - wound care per surgery - doubt sepsis source 2. Acute renal failure, crf - on hemodialysis 3. Rhabdomyolysis - per primary and renal medicine 4. Elevated LFTs. 5. CAD. 6. Non-STEMI. 7. No history of diabetes or hypertension. 8. Fall. 9. Altered level of consciousness. 10. Lumbar spine fracture. 11. No known drug allergies. 12. Social history is negative. 13. Family history is noncontributory. 14. MAR was noted. 15. Case was discussed with RN and family 16. Continue treatment per primary consultants. Subjective Constitutional: Reports: fatigue; Denies: fever HEENT: Reports: congestion - less Respiratory: Reports: shortness of breath - less Cardiovascular: Denies: chest pain Gastrointestinal/Abdominal: Denies: nausea, vomiting, diarrhea Genitourinary: Reports: other - + hargrove Neurologic: Reports: weakness, other - more alert, non-verbal Psychiatric: Reports: other - NA Skin: Denies: rash Hematologic: Denies: bleeding Musculoskeletal: Denies: pain Allergies: Coded Allergies: No Known Allergies (Unverified , 06/24/19) Objective Vital Signs Last 24 Hour Vital Signs Date Time Temp Pulse Resp B/P (MAP) Pulse Ox O2 Delivery O2 Flow Rate FiO2 07/01/19 16:00 Nasal Cannula 2.0 Nasal Cannula 2.0 Nasal Cannula 2.0 07/01/19 12:00 98.0 84 24 133/63 (86) 100 07/01/19 12:00 2.0 07/01/19 12:00 75 07/01/19 12:00 Nasal Cannula 2.0 Nasal Cannula 2.0 Nasal Cannula 2.0 07/01/19 08:00 2.0 07/01/19 08:00 Nasal Cannula 2.0 Nasal Cannula 2.0 Nasal Cannula 2.0 07/01/19 08:00 98.6 94 25 145/73 (97) 96 07/01/19 08:00 97 07/01/19 07:00 85 18 95 Nasal Cannula 2.0 28 07/01/19 07:00 95 Nasal Cannula 2.0 28 07/01/19 04:00 97.2 99 20 138/70 (92) 99 07/01/19 04:00 97 07/01/19 04:00 Nasal Cannula 2.0 Nasal Cannula 2.0 Nasal Cannula 2.0 07/01/19 04:00 2.0 07/01/19 00:00 97.6 99 16 143/77 (99) 99 07/01/19 00:00 Nasal Cannula 2.0 Nasal Cannula 2.0 Nasal Cannula 2.0 07/01/19 00:00 98 06/30/19 20:00 2.0 06/30/19 20:00 94 Nasal Cannula 2.0 28 06/30/19 20:00 98.0 99 18 153/89 (110) 98 06/30/19 20:00 Nasal Cannula 2.0 Nasal Cannula 2.0 Nasal Cannula 2.0 06/30/19 20:00 95 Height (Feet): 5 Height (Inches): 4.00 Weight (Pounds): 115 General Appearance: no acute distress HEENT: normocephalic, atraumatic, anicteric Respiratory/Chest: no accessory muscle use, crackles/rales, rhonchi - bilaterally Cardiovascular: normal rate, regular rhythm, no gallop/murmur, no JVD Abdomen: normal bowel sounds, soft, non tender, no organomegaly, non distended Genitourinary: other - + hargrove - urine slt cloudy Extremities: no cyanosis Skin: no rash, other - wounds covered, noted Neurologic/Psychiatric: hosting 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 There is considerable interstitial and airspace disease throughout the left lung, however. Less extensive interstitial congestion is seen in the right lung. The heart size is normal. The aorta is tortuous and calcified Impression: Interim reexpansion of previously atelectatic left lung. However, there is considerable infiltrate and/or edema throughout the left lung. There is also persistent mild generalized interstitial congestion in the right lung CT Chest: IMPRESSION: Extensive airspace consolidation in the left lung involving the left perihilar, upper lobe and left lower lobe. Findings suspicious for pneumonia, especially aspiration given the abrupt onset. Please correlate clinically. Partial atelectasis of the left lower lobe also noted. Atherosclerotic vascular disease. Degenerative changes of the spine and scoliosis. CT abdomen and pelvis: IMPRESSION: No acute findings appreciated. Study limited by the lack of intravenous oral contrast as well as extensive motion artifact. 1.6 cm probable cystic lesion in the pancreatic tail. This requires further evaluation with the contrast CT or MR. Status post previous partial bowel resection. 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 Degenerative changes as described above. Chest x-ray - 07/01/19 - Procedure: XRAY Chest 1v Indication: Dyspnea Comparison: 06/30/2019 A single view chest radiograph was obtained. Findings: Interstitial densities demonstrated with cardiomegaly. There is blunting of the left costophrenic angle. There is a weighted feeding tube the tip of which is projected over the antrum and pyloric region. IMPRESSION: Mild interstitial edema presumably due to heart failure. Correlate clinically Abdominal US: IMPRESSION: No acute findings appreciated. Bilateral pleural effusions Cyst in the splenic hilar region. Contracted gallbladder with prominent wall. Microbiology Date/Time Source Procedure Growth Status 06/29/19 14:25 Blood Blood Culture - Preliminary NO GROWTH AFTER 24 HOURS Resulted 06/30/19 18:00 Stool Clostridium difficile Toxin Assay - Final Complete 06/29/19 05:00 External Cath Urine Culture - Preliminary NO GROWTH Resulted Microbiology Date/Time Source Procedure Growth Status 06/29/19 14:25 Blood Blood Culture - Preliminary NO GROWTH AFTER 24 HOURS Resulted 06/29/19 14:10 Blood Blood Culture - Preliminary NO GROWTH AFTER 24 HOURS Resulted 06/30/19 18:00 Stool Clostridium difficile Toxin Assay - Final Complete 06/29/19 05:00 External Cath Urine Culture - Preliminary NO GROWTH Resulted Laboratory Tests Test 06/30/19 18:00 07/01/19 04:25 Stool Occult Blood Positive (NEGATIVE) White Blood Count 30.2 K/UL (4.8-10.8) *H Red Blood Count 2.63 M/UL (4.20-5.40) L Hemoglobin 7.2 G/DL (12.0-16.0) L Hematocrit 22.0 % (37.0-47.0) L Mean Corpuscular Volume 83 FL (80-99) Mean Corpuscular Hemoglobin 27.3 PG (27.0-31.0) Mean Corpuscular Hemoglobin Concent 32.7 G/DL (32.0-36.0) Red Cell Distribution Width 11.8 % (11.6-14.8) Platelet Count 145 K/UL (150-450) L Mean Platelet Volume 10.0 FL (6.5-10.1) Neutrophils (%) (Auto) % (45.0-75.0) Lymphocytes (%) (Auto) % (20.0-45.0) Monocytes (%) (Auto) % (1.0-10.0) Eosinophils (%) (Auto) % (0.0-3.0) Basophils (%) (Auto) % (0.0-2.0) Differential Total Cells Counted 100 Neutrophils % (Manual) 90 % (45-75) H Lymphocytes % (Manual) 3 % (20-45) L Monocytes % (Manual) 7 % (1-10) Eosinophils % (Manual) 0 % (0-3) Basophils % (Manual) 0 % (0-2) Band Neutrophils 0 % (0-8) Platelet Estimate Decreased L Platelet Morphology Normal Hypochromasia 1+ Erythrocyte Sedimentation Rate 70 MM/HR (0-30) H Prothrombin Time 17.4 SEC (9.30-11.50) H Prothromb Time International Ratio 1.7 (0.9-1.1) H Activated Partial Thromboplast Time 37 SEC (23-33) H Sodium Level 140 MMOL/L (136-145) Potassium Level 3.5 MMOL/L (3.5-5.1) Chloride Level 100 MMOL/L (98-107) Carbon Dioxide Level 21 MMOL/L (21-32) Anion Gap 20 mmol/L (5-15) H Blood Urea Nitrogen 97 mg/dL (7-18) H Creatinine 5.0 MG/DL (0.55-1.30) H Estimat Glomerular Filtration Rate 9.9 mL/min (>60) Glucose Level 169 MG/DL (74-106) H Calcium Level 8.9 MG/DL (8.5-10.1) Total Bilirubin 3.7 MG/DL (0.2-1.0) H Direct Bilirubin 2.2 MG/DL (0.0-0.3) H Gamma Glutamyl Transpeptidase 25 U/L (5-85) Aspartate Amino Transf (AST/SGOT) 106 U/L (15-37) H Alanine Aminotransferase (ALT/SGPT) 95 U/L (12-78) H Alkaline Phosphatase 98 U/L (46-116) C-Reactive Protein, Quantitative 11.2 mg/dL (0.00-0.90) H Total Protein 6.0 G/DL (6.4-8.2) L Albumin 2.9 G/DL (3.4-5.0) L Globulin 3.1 g/dL Albumin/Globulin Ratio 0.9 (1.0-2.7) L Amylase Level 864 U/L (25-115) *H Lipase 9250 U/L (73-393) H Current Medications Medications (Trade) Dose Ordered Sig/Joan Route PRN Reason Start Time Stop Time Status Last Admin Dose Admin Acetaminophen (Tylenol) 650 mg Q4H PRN ORAL Mild Pain (Pain Scale 1-3) 06/24/19 19:52 07/24/19 19:51 06/30/19 18:03 Acetylcysteine (Mucomyst) 100 mg Q4HRT PRN HHN Shortness of Breath 06/25/19 23:45 07/25/19 22:59 Albumin Human 100 ml @ 100 mls/hr NEEDED PRN IV DIALYSIS 06/27/19 14:00 07/27/19 13:59 Barium Sulfate (Readi-Cat 2) 450 ml NOW PRN ORAL Radiology Procedure 07/01/19 08:30 07/03/19 08:17 07/01/19 15:58 Chlorhexidine Gluconate (Cari-Hex 2%) 1 applic DAILY@2000 TOPIC 06/26/19 20:00 07/26/19 19:59 06/30/19 20:48 Dextrose (Dextrose 50%) 25 ml Q30M PRN IV Hypoglycemia 06/24/19 19:52 07/24/19 19:51 Dextrose (Dextrose 50%) 50 ml Q30M PRN IV Hypoglycemia 06/24/19 19:52 07/24/19 19:51 Diphenhydramine HCl (Benadryl) 25 mg Q6H PRN ORAL Itching/Pruritis 06/24/19 19:52 07/24/19 19:51 Furosemide (Lasix) 40 mg DAILY IV 06/30/19 20:00 07/30/19 19:59 07/01/19 08:59 Hydromorphone HCl (Dilaudid) 0.5 mg Q3H PRN IVP Pain 4-10 06/25/19 14:30 07/02/19 14:29 07/01/19 11:54 Iohexol (OMNIPAQUE-300 100ml) 100 ml NOW PRN INJ Radiology Procedure 07/01/19 08:30 07/03/19 08:17 Linezolid 300 ml @ 300 mls/hr EVERY 12 HOURS IVPB 06/30/19 21:00 07/07/19 20:59 07/01/19 08:59 Meropenem 500 mg/ Sodium Chloride 50 ml @ 100 mls/hr Q24HRS IVPB 06/30/19 17:00 07/05/19 16:59 06/30/19 17:36 Ondansetron HCl (Zofran) 4 mg Q6H PRN IVP Nausea & Vomiting 06/24/19 19:52 07/24/19 19:51 Pantoprazole (Protonix) 40 mg DAILY IVP 06/30/19 09:00 07/30/19 08:59 07/01/19 08:58 Ana Rosado MD Jul 01, 2019 17:21
[2019-07-01 20:00] VITALS: BP 150/73
--- NOTE | 2019-07-01 20:56 | Diagnostic Imaging Report ---
Clinical Indication: Abdominal pain, vomiting Technique: Patient given enteric contrast IV administration nonionic contrast. Venous phase spiral acquisition obtained through the abdomen and pelvis. Multiplanar reconstructions were generated. Total dose length product 298 mGycm. CTDIvol(s) 5 mGy. Dose reduction achieved using automated exposure control Comparison: 06/24/2019 noncontrast study Findings: There is some image degradation due to motion artifact. There is a nasogastric tube in place, tip at the level of the gastric antrum. Otherwise unremarkable stomach. Unremarkable duodenum and distal esophagus. There are a few colonic diverticula. No evidence of diverticulitis. The appendix is not identified, but no findings to suggest acute appendicitis are evident. Ingested contrast is seen throughout the entirety of the small bowel and reaches the colon. There is a single dilated loop of small bowel in the right midabdomen, but this appears to be associated with an anastomotic staple line. The remainder of the small bowel is nondilated. No free or loculated intraperitoneal gas or fluid is evident. Images of the pancreas are slightly degraded by the motion artifact. No definite pancreatic swelling or peripancreatic fluid demonstrated. There is a small cystic lesion coming off of the tail of the pancreas. This measures 1.6 cm in diameter, unchanged from the previous study. The liver, gallbladder, bile ducts, spleen, adrenals, kidneys are all unremarkable. No retroperitoneal or mesenteric mass or adenopathy. No pelvic mass or adenopathy. The uterus is absent. There is a Sanchez catheter within the bladder which is empty except for small amount of air. Interim development of a small amount of pleural fluid on the left. There is left basilar atelectasis and consolidation. There is some hazy consolidation at the right lung base as well as posterior dependent atelectatic changes. The bones demonstrate degenerative spondylosis changes and mild lumbar scoliotic deformity. There are compression fracture deformities of T10 and L1 again noted. Impression: 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 Otherwise unremarkable pancreas Small left pleural effusion, new since prior study of 06/24/2019. Bilateral basilar atelectasis and consolidation, increased from the prior exam No acute abnormality otherwise Nasogastric tube in good position Incidental findings as noted, including stable T10 and L1 compression fracture deformities, degenerative spondylosis, lumbar scoliotic deformity, Sanchez catheter, prior hysterectomy, evidence of prior bowel surgery This agrees with the preliminary interpretation provided overnight by [facility] teleradiology service. The CT scanner at [facility] is accredited by the [employer] and the scans are performed using protocols designed to limit radiation exposure to as low as reasonably achievable to attain images of sufficient resolution adequate for diagnostic evaluation.
[2019-07-01] MEDS: Dyna-Hex 2% Top Sol 2oz TOPIC SCH (21:22)
[2019-07-02] VITALS (8 sets, daily range): BP systolic 95–157; BP diastolic 50–103
[2019-07-02] MEDS: Hydromorphone 0.5mg/0.5ml inj IVP PRN ×6 (01:24→22:14)
[2019-07-02 05:19] LABS: HEMATOCRIT 22.9 % (37.0-47.0); HEMOGLOBIN 7.3 G/DL (12.0-16.0); MEAN CORPUSCULAR VOLUME 87 FL (80-99); PLATELET COUNT 132 K/UL (150-450); RED BLOOD COUNT 2.63 M/UL (4.20-5.40); RED CELL DISTRIBUTION WIDTH 12.4 % (11.6-14.8)
[2019-07-02 05:29] LABS: WHITE BLOOD COUNT 27.1 K/UL (4.8-10.8)
[2019-07-02 06:09] LABS: ALANINE AMINOTRANSFERASE 97 U/L (12-78); ALBUMIN 3.1 G/DL (3.4-5.0); ALBUMIN/GLOBULIN RATIO 1.3 (1.0-2.7); ALKALINE PHOSPHATASE 96 U/L (46-116); ANION GAP 18 mmol/L (5-15); ASPARTATE AMINO TRANSFERASE 110 U/L (15-37); BILIRUBIN,TOTAL 3.2 MG/DL (0.2-1.0); BLOOD UREA NITROGEN 105 mg/dL (7-18); CALCIUM 8.7 MG/DL (8.5-10.1); CARBON DIOXIDE 24 MMOL/L (21-32); CHLORIDE 100 MMOL/L (98-107); CHOLESTEROL 98 MG/DL (< 200); CREATININE 4.9 MG/DL (0.55-1.30); HDL CHOLESTEROL 28 MG/DL (40-60); POTASSIUM 3.8 MMOL/L (3.5-5.1); SODIUM 142 MMOL/L (136-145); TRIGLYCERIDES 147 MG/DL (30-150)
[2019-07-02 06:13] LABS: AMYLASE 852 U/L (25-115)
[2019-07-02] MEDS: Pantoprazole Inj IVP SCH (09:00)
--- NOTE | 2019-07-02 10:33 | Cardiology Progress Note ---
Assessment/Plan Status: stable Assessment/Plan Assessment/Plan Status: stable Assessment/Plan: Assessment Elevated troponin Syncope. Elevated LFT KAREN/CKD Rhabdomyolysis Plan d/c Trend troponin Monitor on telemetry Echocardiogram reviewed Stress test prior to discharge Hold heparin PEG tube placement - clear to proceed Maintain HD Abx per ID/pulm Pulmonary toilet Supportive care Subjective Cardiovascular: Reports: no symptoms Respiratory: Reports: no symptoms Gastrointestinal/Abdominal: Reports: no symptoms Genitourinary: Reports: no symptoms Subjective No distress, on roon air, no fevers, BP elevated, creatinine mildly improved, WBC elevated. family deciding on PEG Objective Last 24 Hour Vital Signs Date Time Temp Pulse Resp B/P (MAP) Pulse Ox O2 Delivery O2 Flow Rate FiO2 07/02/19 09:47 97.6 07/02/19 08:00 2.0 07/02/19 08:00 Nasal Cannula 2.0 Nasal Cannula 2.0 Nasal Cannula 2.0 07/02/19 08:00 98.4 86 17 127/69 (88) 95 07/02/19 07:51 101 07/02/19 04:00 93 07/02/19 04:00 97.6 66 24 157/103 (121) 100 07/02/19 04:00 Nasal Cannula 2.0 Nasal Cannula 2.0 Nasal Cannula 2.0 07/02/19 04:00 2.0 07/02/19 00:00 78 07/02/19 00:00 Nasal Cannula 2.0 Nasal Cannula 2.0 Nasal Cannula 2.0 07/02/19 00:00 2.0 07/02/19 00:00 98.0 102 24 122/65 (84) 100 07/01/19 20:00 Nasal Cannula 2.0 Nasal Cannula 2.0 Nasal Cannula 2.0 07/01/19 20:00 98.0 102 24 150/73 (98) 100 07/01/19 20:00 2.0 07/01/19 20:00 76 07/01/19 18:44 82 18 98 Nasal Cannula 2.0 28 07/01/19 18:44 98 Nasal Cannula 2.0 28 07/01/19 16:00 97.8 106 21 161/74 (103) 100 07/01/19 16:00 78 07/01/19 16:00 Nasal Cannula 2.0 Nasal Cannula 2.0 Nasal Cannula 2.0 07/01/19 16:00 2.0 07/01/19 12:00 98.0 84 24 133/63 (86) 100 07/01/19 12:00 2.0 07/01/19 12:00 75 07/01/19 12:00 Nasal Cannula 2.0 Nasal Cannula 2.0 Nasal Cannula 2.0 General Appearance: no apparent distress, lethargic EENT: PERRL/EOMI, normal ENT inspection, TMs normal, pharynx normal Neck: non-tender, normal alignment, supple, normal inspection, no JVD Rhythm: NSR Cardiovascular: normal peripheral pulses, normal rate, regular rhythm Respiratory/Chest: chest wall non-tender, accessory muscle use, crackles/rales Abdomen: normal bowel sounds, non tender, soft, no organomegaly Extremities: normal range of motion, non-tender, normal inspection, no calf tenderness, no swelling Neurologic: sane nurse 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 normal, no motor/sensory deficits Intake and Output 07/01/19 07/02/19 19:00 07:00 Intake Total 1125 ml 250 ml Output Total 200 ml Balance 925 ml 250 ml IV Total 50 ml Tube Feeding 75 ml 250 ml Hemodialysis 1000 ml Output Urine Total 200 ml # Bowel Movements 2 Laboratory Tests Test 07/02/19 03:50 White Blood Count 27.1 K/UL (4.8-10.8) *H Red Blood Count 2.63 M/UL (4.20-5.40) L Hemoglobin 7.3 G/DL (12.0-16.0) L Hematocrit 22.9 % (37.0-47.0) L Mean Corpuscular Volume 87 FL (80-99) Mean Corpuscular Hemoglobin 27.7 PG (27.0-31.0) Mean Corpuscular Hemoglobin Concent 31.9 G/DL (32.0-36.0) L Red Cell Distribution Width 12.4 % (11.6-14.8) Platelet Count 132 K/UL (150-450) L Mean Platelet Volume 9.6 FL (6.5-10.1) Neutrophils (%) (Auto) % (45.0-75.0) Lymphocytes (%) (Auto) % (20.0-45.0) Monocytes (%) (Auto) % (1.0-10.0) Eosinophils (%) (Auto) % (0.0-3.0) Basophils (%) (Auto) % (0.0-2.0) Differential Total Cells Counted 100 Neutrophils % (Manual) 85 % (45-75) H Lymphocytes % (Manual) 9 % (20-45) L Monocytes % (Manual) 4 % (1-10) Eosinophils % (Manual) 2 % (0-3) Basophils % (Manual) 0 % (0-2) Band Neutrophils 0 % (0-8) Platelet Estimate Decreased L Platelet Morphology Normal Hypochromasia 3+ Anisocytosis 1+ Sodium Level 142 MMOL/L (136-145) Potassium Level 3.8 MMOL/L (3.5-5.1) Chloride Level 100 MMOL/L (98-107) Carbon Dioxide Level 24 MMOL/L (21-32) Anion Gap 18 mmol/L (5-15) H Blood Urea Nitrogen 105 mg/dL (7-18) H Creatinine 4.9 MG/DL (0.55-1.30) H Estimat Glomerular Filtration Rate 10.2 mL/min (>60) Glucose Level 151 MG/DL (74-106) H Calcium Level 8.7 MG/DL (8.5-10.1) Total Bilirubin 3.2 MG/DL (0.2-1.0) H Direct Bilirubin 2.0 MG/DL (0.0-0.3) H Aspartate Amino Transf (AST/SGOT) 110 U/L (15-37) H Alanine Aminotransferase (ALT/SGPT) 97 U/L (12-78) H Alkaline Phosphatase 96 U/L (46-116) Total Protein 5.5 G/DL (6.4-8.2) L Albumin 3.1 G/DL (3.4-5.0) L Globulin 2.4 g/dL Albumin/Globulin Ratio 1.3 (1.0-2.7) Triglycerides Level 147 MG/DL (30-150) Cholesterol Level 98 MG/DL (< 200) LDL Cholesterol 48 mg/dL (<100) HDL Cholesterol 28 MG/DL (40-60) L Cholesterol/HDL Ratio 3.5 (3.3-4.4) Amylase Level 852 U/L (25-115) *H Lipase 9431 U/L (73-393) H Microbiology Date/Time Source Procedure Growth Status 06/29/19 14:25 Blood Blood Culture - Preliminary NO GROWTH AFTER 48 HOURS Resulted 06/29/19 14:10 Blood Blood Culture - Preliminary NO GROWTH AFTER 48 HOURS Resulted 06/30/19 18:00 Stool Clostridium difficile Toxin Assay - Final Complete Melchor Cerna MD Jul 02, 2019 10:33
--- NOTE | 2019-07-02 11:20 | General Progress Note ---
Assessment/Plan Problem List: (1) KAREN (acute kidney injury) ICD Codes: N17.9 - Acute kidney failure, unspecified SNOMED: 1985849, [id number] (2) Altered level of consciousness ICD Codes: R40.4 - Transient alteration of awareness SNOMED: 1256977 Status: stable Assessment/Plan: dysphagia elevated LFTS pancreatitis based on elevated lipase fatty liver ESRD pancreatic cyst anemia stool ob positive s/p NGT placement NGTF will resume repeat labs abx per ID PEG when more stable and if fami CT reviewed transfuse one unit PRBC repeat INR and correct if needed plan PEG for if stable Subjective ROS Limited/Unobtainable: No Allergies: Coded Allergies: No Known Allergies (Unverified , 06/24/19) Objective Last 24 Hour Vital Signs Date Time Temp Pulse Resp B/P (MAP) Pulse Ox O2 Delivery O2 Flow Rate FiO2 07/02/19 09:47 97.6 07/02/19 08:00 2.0 07/02/19 08:00 Nasal Cannula 2.0 Nasal Cannula 2.0 Nasal Cannula 2.0 07/02/19 08:00 98.4 86 17 127/69 (88) 95 07/02/19 07:51 101 07/02/19 04:00 93 07/02/19 04:00 97.6 66 24 157/103 (121) 100 07/02/19 04:00 Nasal Cannula 2.0 Nasal Cannula 2.0 Nasal Cannula 2.0 07/02/19 04:00 2.0 07/02/19 00:00 78 07/02/19 00:00 Nasal Cannula 2.0 Nasal Cannula 2.0 Nasal Cannula 2.0 07/02/19 00:00 2.0 07/02/19 00:00 98.0 102 24 122/65 (84) 100 07/01/19 20:00 Nasal Cannula 2.0 Nasal Cannula 2.0 Nasal Cannula 2.0 07/01/19 20:00 98.0 102 24 150/73 (98) 100 07/01/19 20:00 2.0 07/01/19 20:00 76 07/01/19 18:44 82 18 98 Nasal Cannula 2.0 28 07/01/19 18:44 98 Nasal Cannula 2.0 28 07/01/19 16:00 97.8 106 21 161/74 (103) 100 07/01/19 16:00 78 07/01/19 16:00 Nasal Cannula 2.0 Nasal Cannula 2.0 Nasal Cannula 2.0 07/01/19 16:00 2.0 07/01/19 12:00 98.0 84 24 133/63 (86) 100 07/01/19 12:00 2.0 07/01/19 12:00 75 07/01/19 12:00 Nasal Cannula 2.0 Nasal Cannula 2.0 Nasal Cannula 2.0 Intake and Output 07/01/19 07/02/19 19:00 07:00 Intake Total 1125 ml 250 ml Output Total 200 ml Balance 925 ml 250 ml IV Total 50 ml Tube Feeding 75 ml 250 ml Hemodialysis 1000 ml Output Urine Total 200 ml # Bowel Movements 2 Laboratory Tests 07/02/19 03:50: White Blood Count 27.1*H, Red Blood Count 2.63L, Hemoglobin 7.3L, Hematocrit 22.9L, Mean Corpuscular Volume 87, Mean Corpuscular Hemoglobin 27.7, Mean Corpuscular Hemoglobin Concent 31.9L, Red Cell Distribution Width 12.4, Platelet Count 132L, Mean Platelet Volume 9.6, Neutrophils (%) (Auto) , Lymphocytes (%) (Auto) , Monocytes (%) (Auto) , Eosinophils (%) (Auto) , Basophils (%) (Auto) , Differential Total Cells Counted 100, Neutrophils % ( Manual) 85H, Lymphocytes % (Manual) 9L, Monocytes % (Manual) 4, Eosinophils % ( Manual) 2, Basophils % (Manual) 0, Band Neutrophils 0, Platelet Estimate DecreasedL, Platelet Morphology Normal, Hypochromasia 3+, Anisocytosis 1+, Sodium Level 142, Potassium Level 3.8, Chloride Level 100, Carbon Dioxide Level 24, Anion Gap 18H, Blood Urea Nitrogen 105H, Creatinine 4.9H, Estimat Glomerular Filtration Rate 10.2, Glucose Level 151H, Calcium Level 8.7, Total Bilirubin 3.2H, Direct Bilirubin 2.0H, Aspartate Amino Transf (AST/SGOT) 110H, Alanine Aminotransferase (ALT/SGPT) 97H, Alkaline Phosphatase 96, Total Protein 5.5L, Albumin 3.1L, Globulin 2.4, Albumin/Globulin Ratio 1.3, Triglycerides Level 147, Cholesterol Level 98, LDL Cholesterol 48, HDL Cholesterol 28L, Cholesterol/HDL Ratio 3.5, Amylase Level 852*H, Lipase 9431H Height (Feet): 5 Height (Inches): 4.00 Weight (Pounds): 115 General Appearance: no apparent distress EENT: normal ENT inspection Neck: supple Cardiovascular: normal rate Respiratory/Chest: decreased breath sounds Abdomen: normal bowel sounds, non tender, soft Extremities: non-tender Jun Mena MD Jul 02, 2019 11:20
--- NOTE | 2019-07-02 12:02 | Pulmonology Progress Note ---
Assessment/Plan Assessment/Plan IMPRESSION: 1. Extensive left lung pneumonia. 2. Pulmonary edema. 3. Respiratory failure; now off BiPAP DISCUSSION: Continue broad-spectrum antibiotics. Dialysis per renal Use BiPAP prn. Supplemental O2. I will follow carefully. Abrahan Samaniego M.D. Subjective Interval Events: None Constitutional: Reports: no symptoms HEENT: Repors: no symptoms Respiratory: Reports: no symptoms Cardiovascular: Reports: no symptoms Gastrointestinal/Abdominal: Reports: no symptoms Genitourinary: Reports: no symptoms Allergies: Coded Allergies: No Known Allergies (Unverified , 06/24/19) Objective Last 24 Hour Vital Signs Date Time Temp Pulse Resp B/P (MAP) Pulse Ox O2 Delivery O2 Flow Rate FiO2 07/02/19 09:47 97.6 07/02/19 08:00 2.0 07/02/19 08:00 Nasal Cannula 2.0 Nasal Cannula 2.0 Nasal Cannula 2.0 07/02/19 08:00 98.4 86 17 127/69 (88) 95 07/02/19 07:51 101 07/02/19 04:00 93 07/02/19 04:00 97.6 66 24 157/103 (121) 100 07/02/19 04:00 Nasal Cannula 2.0 Nasal Cannula 2.0 Nasal Cannula 2.0 07/02/19 04:00 2.0 07/02/19 00:00 78 07/02/19 00:00 Nasal Cannula 2.0 Nasal Cannula 2.0 Nasal Cannula 2.0 07/02/19 00:00 2.0 07/02/19 00:00 98.0 102 24 122/65 (84) 100 07/01/19 20:00 Nasal Cannula 2.0 Nasal Cannula 2.0 Nasal Cannula 2.0 07/01/19 20:00 98.0 102 24 150/73 (98) 100 07/01/19 20:00 2.0 07/01/19 20:00 76 07/01/19 18:44 82 18 98 Nasal Cannula 2.0 28 07/01/19 18:44 98 Nasal Cannula 2.0 28 07/01/19 16:00 97.8 106 21 161/74 (103) 100 07/01/19 16:00 78 07/01/19 16:00 Nasal Cannula 2.0 Nasal Cannula 2.0 Nasal Cannula 2.0 07/01/19 16:00 2.0 Intake and Output 07/01/19 07/02/19 19:00 07:00 Intake Total 1125 ml 250 ml Output Total 200 ml Balance 925 ml 250 ml IV Total 50 ml Tube Feeding 75 ml 250 ml Hemodialysis 1000 ml Output Urine Total 200 ml # Bowel Movements 2 General Appearance: no acute distress HEENT: normocephalic Respiratory/Chest: chest wall non-tender, lungs clear Cardiovascular: normal peripheral pulses, normal rate Abdomen: normal bowel sounds Microbiology Date/Time Source Procedure Growth Status 06/29/19 14:25 Blood Blood Culture - Preliminary NO GROWTH AFTER 48 HOURS Resulted 06/29/19 14:10 Blood Blood Culture - Preliminary NO GROWTH AFTER 48 HOURS Resulted 06/30/19 18:00 Stool Clostridium difficile Toxin Assay - Final Complete Laboratory Tests 07/02/19 03:50: White Blood Count 27.1*H, Red Blood Count 2.63L, Hemoglobin 7.3L, Hematocrit 22.9L, Mean Corpuscular Volume 87, Mean Corpuscular Hemoglobin 27.7, Mean Corpuscular Hemoglobin Concent 31.9L, Red Cell Distribution Width 12.4, Platelet Count 132L, Mean Platelet Volume 9.6, Neutrophils (%) (Auto) , Lymphocytes (%) (Auto) , Monocytes (%) (Auto) , Eosinophils (%) (Auto) , Basophils (%) (Auto) , Differential Total Cells Counted 100, Neutrophils % ( Manual) 85H, Lymphocytes % (Manual) 9L, Monocytes % (Manual) 4, Eosinophils % ( Manual) 2, Basophils % (Manual) 0, Band Neutrophils 0, Platelet Estimate DecreasedL, Platelet Morphology Normal, Hypochromasia 3+, Anisocytosis 1+, Sodium Level 142, Potassium Level 3.8, Chloride Level 100, Carbon Dioxide Level 24, Anion Gap 18H, Blood Urea Nitrogen 105H, Creatinine 4.9H, Estimat Glomerular Filtration Rate 10.2, Glucose Level 151H, Calcium Level 8.7, Total Bilirubin 3.2H, Direct Bilirubin 2.0H, Aspartate Amino Transf (AST/SGOT) 110H, Alanine Aminotransferase (ALT/SGPT) 97H, Alkaline Phosphatase 96, Total Protein 5.5L, Albumin 3.1L, Globulin 2.4, Albumin/Globulin Ratio 1.3, Triglycerides Level 147, Cholesterol Level 98, LDL Cholesterol 48, HDL Cholesterol 28L, Cholesterol/HDL Ratio 3.5, Amylase Level 852*H, Lipase 9431H Current Medications Medications (Trade) Dose Ordered Sig/Joan Route PRN Reason Start Time Stop Time Status Last Admin Dose Admin Acetaminophen (Tylenol) 650 mg Q4H PRN ORAL Mild Pain (Pain Scale 1-3) 06/24/19 19:52 07/24/19 19:51 06/30/19 18:03 Acetylcysteine (Mucomyst) 100 mg Q4HRT PRN HHN Shortness of Breath 06/25/19 23:45 07/25/19 22:59 Albumin Human 100 ml @ 100 mls/hr NEEDED PRN IV DIALYSIS 06/27/19 14:00 07/27/19 13:59 Barium Sulfate (Readi-Cat 2) 450 ml NOW PRN ORAL Radiology Procedure 07/01/19 08:30 07/03/19 08:17 07/01/19 15:58 Chlorhexidine Gluconate (Cari-Hex 2%) 1 applic DAILY@2000 TOPIC 06/26/19 20:00 07/26/19 19:59 07/01/19 21:22 Dextrose (Dextrose 50%) 25 ml Q30M PRN IV Hypoglycemia 06/24/19 19:52 07/24/19 19:51 Dextrose (Dextrose 50%) 50 ml Q30M PRN IV Hypoglycemia 06/24/19 19:52 07/24/19 19:51 Diphenhydramine HCl (Benadryl) 25 mg Q6H PRN ORAL Itching/Pruritis 06/24/19 19:52 07/24/19 19:51 Furosemide (Lasix) 40 mg DAILY IV 06/30/19 20:00 07/30/19 19:59 07/02/19 09:18 Hydromorphone HCl (Dilaudid) 0.5 mg Q3H PRN IVP Pain 4-10 06/25/19 14:30 07/02/19 14:29 07/02/19 09:17 Iohexol (OMNIPAQUE-300 100ml) 100 ml NOW PRN INJ Radiology Procedure 07/01/19 08:30 07/03/19 08:17 Linezolid 300 ml @ 300 mls/hr EVERY 12 HOURS IVPB 06/30/19 21:00 07/07/19 20:59 07/02/19 09:17 Meropenem 500 mg/ Sodium Chloride 50 ml @ 100 mls/hr Q24HRS IVPB 06/30/19 17:00 07/05/19 16:59 07/01/19 18:08 Ondansetron HCl (Zofran) 4 mg Q6H PRN IVP Nausea & Vomiting 06/24/19 19:52 07/24/19 19:51 Pantoprazole (Protonix) 40 mg DAILY IVP 06/30/19 09:00 07/30/19 08:59 07/02/19 09:00 Abrahan Samaniego MD Jul 02, 2019 12:02
--- NOTE | 2019-07-02 12:11 | General Progress Note ---
Assessment/Plan Status: stable Assessment/Plan: #Rhabdomyolosis #KAREN #Acute renal failure - on HD UF #Uremic encephalopathy #Anion gap metabolic acidosis #Lactic acidosis -resolved -renal US-> No obstructive nephropathy -renal function slowly improving -Nephrology following: no IVF, HD UF per nephro #Left lung PNA - likely aspiration #Acute hypoxic respiratory failure s/p BiPAP - improved #Strep Viridans bacteremia #Worsening Leukocytosis #loose stools Noted to be acutely hypoxic on early AM of 06/25 -s/p BiPAP -> NC/room air intermittently -CT chest, CXR with left lung infiltrate. -ABG prn. -Pulmonology following -echo negative for vegetations -CXR 06/28: Bilateral interstitial thickening and patchy airspace opacities in the left lung, similar to prior study given differences in technique. -ID following - Now on Zyvox and meropenem -Stool C. diff negative,oral vanco stopped -Worsening leukocytosis, repeat blood cultures from 06/28 negative so far #Dysphagia -NGT for feeding for now -Tentative plan for PEG on #L1 vertebral fracture - likely old seen on imaging, likely old. -reassurance provided to family. #Transaminitis #Acute pancreatitis ?from dehydration, abd exam benign. -continue to trend LFT's. -GI following #Type 2 NSTEMI likely demand in setting of renal failure. EKG wnl. -no need to trend. -cardiology consulted - pt will need stress test prior to d/c #Pressure wounds. -General surgery consulted for wound care, central line insertion on 06/24 -Cont. wound care and offloading Time spent: 36 mins, >50% on coordination of care and chart review. Subjective Date patient seen: Jul 02, 2019 Time patient seen: 11:00 ROS Limited/Unobtainable: Yes Allergies: Coded Allergies: No Known Allergies (Unverified , 06/24/19) Subjective Follow up for KAREN, acute pancreatitis, rhabdo. Patient semi-alert, unable to communicate Spoke with niece at bedside today, she reports patient is moaning in pain Objective Last 24 Hour Vital Signs Date Time Temp Pulse Resp B/P (MAP) Pulse Ox O2 Delivery O2 Flow Rate FiO2 07/02/19 09:47 97.6 07/02/19 08:00 2.0 07/02/19 08:00 Nasal Cannula 2.0 Nasal Cannula 2.0 Nasal Cannula 2.0 07/02/19 08:00 98.4 86 17 127/69 (88) 95 07/02/19 07:51 101 07/02/19 04:00 93 07/02/19 04:00 97.6 66 24 157/103 (121) 100 07/02/19 04:00 Nasal Cannula 2.0 Nasal Cannula 2.0 Nasal Cannula 2.0 07/02/19 04:00 2.0 07/02/19 00:00 78 07/02/19 00:00 Nasal Cannula 2.0 Nasal Cannula 2.0 Nasal Cannula 2.0 07/02/19 00:00 2.0 07/02/19 00:00 98.0 102 24 122/65 (84) 100 07/01/19 20:00 Nasal Cannula 2.0 Nasal Cannula 2.0 Nasal Cannula 2.0 07/01/19 20:00 98.0 102 24 150/73 (98) 100 07/01/19 20:00 2.0 07/01/19 20:00 76 07/01/19 18:44 82 18 98 Nasal Cannula 2.0 28 07/01/19 18:44 98 Nasal Cannula 2.0 28 07/01/19 16:00 97.8 106 21 161/74 (103) 100 07/01/19 16:00 78 07/01/19 16:00 Nasal Cannula 2.0 Nasal Cannula 2.0 Nasal Cannula 2.0 07/01/19 16:00 2.0 Intake and Output 07/01/19 07/02/19 19:00 07:00 Intake Total 1125 ml 250 ml Output Total 200 ml Balance 925 ml 250 ml IV Total 50 ml Tube Feeding 75 ml 250 ml Hemodialysis 1000 ml Output Urine Total 200 ml # Bowel Movements 2 Laboratory Tests 07/02/19 03:50: White Blood Count 27.1*H, Red Blood Count 2.63L, Hemoglobin 7.3L, Hematocrit 22.9L, Mean Corpuscular Volume 87, Mean Corpuscular Hemoglobin 27.7, Mean Corpuscular Hemoglobin Concent 31.9L, Red Cell Distribution Width 12.4, Platelet Count 132L, Mean Platelet Volume 9.6, Neutrophils (%) (Auto) , Lymphocytes (%) (Auto) , Monocytes (%) (Auto) , Eosinophils (%) (Auto) , Basophils (%) (Auto) , Differential Total Cells Counted 100, Neutrophils % ( Manual) 85H, Lymphocytes % (Manual) 9L, Monocytes % (Manual) 4, Eosinophils % ( Manual) 2, Basophils % (Manual) 0, Band Neutrophils 0, Platelet Estimate DecreasedL, Platelet Morphology Normal, Hypochromasia 3+, Anisocytosis 1+, Sodium Level 142, Potassium Level 3.8, Chloride Level 100, Carbon Dioxide Level 24, Anion Gap 18H, Blood Urea Nitrogen 105H, Creatinine 4.9H, Estimat Glomerular Filtration Rate 10.2, Glucose Level 151H, Calcium Level 8.7, Total Bilirubin 3.2H, Direct Bilirubin 2.0H, Aspartate Amino Transf (AST/SGOT) 110H, Alanine Aminotransferase (ALT/SGPT) 97H, Alkaline Phosphatase 96, Total Protein 5.5L, Albumin 3.1L, Globulin 2.4, Albumin/Globulin Ratio 1.3, Triglycerides Level 147, Cholesterol Level 98, LDL Cholesterol 48, HDL Cholesterol 28L, Cholesterol/HDL Ratio 3.5, Amylase Level 852*H, Lipase 9431H Height (Feet): 5 Height (Inches): 4.00 Weight (Pounds): 115 General Appearance: alert, confused Neck: normal alignment, supple Cardiovascular: normal rate, regular rhythm Respiratory/Chest: lungs clear, normal breath sounds, no respiratory distress Abdomen: non tender, soft Oumar Foy MD Jul 02, 2019 12:11
[2019-07-02] MEDS ORDERED: Acetaminophen 650mg/20.3ml NG PRN (12:30)
--- NOTE | 2019-07-02 12:35 | Nephrology Progress Note ---
Assessment/Plan Plan #acute renal failure on possible CKD- due to rhabdo- UA with + RBC- concerns for developing ATN #Uremia #complete opacification of the left hemithorax- likely aspiration pneumonia #lactic acidosis #Hypernatremia- improved #AMS #elevated liver enzyme - HD tomorrow - ass need for HD daily - no IVF - continue lasix 40 IV daily - pulmonary eval - on room air now - renal US-> No obstructive nephropathy. - monitor liver enzymes adn lipase - Gi eval - continue with abx per ID - cardiology eval noted - stress test prior to DC #FULLCODE for now Subjective Subjective s/p HD yesterday 200cc of urine documented today moaning in pain today lipase over 9000 BUN uptrending BP stable on room air CT chest: Extensive airspace consolidation in the left lung involving the left perihilar, upper lobe and left lower lobe. Findings suspicious for pneumonia, especially aspiration given the abrupt onset. Please correlate clinically. Partial atelectasis of the left lower lobe also noted Objective Objective Last 24 Hour Vital Signs Date Time Temp Pulse Resp B/P (MAP) Pulse Ox O2 Delivery O2 Flow Rate FiO2 07/02/19 12:00 Nasal Cannula 2.0 Nasal Cannula 2.0 Nasal Cannula 2.0 07/02/19 12:00 2.0 07/02/19 12:00 97.9 106 16 120/71 (87) 97 07/02/19 09:47 97.6 07/02/19 08:00 2.0 07/02/19 08:00 Nasal Cannula 2.0 Nasal Cannula 2.0 Nasal Cannula 2.0 07/02/19 08:00 98.4 86 17 127/69 (88) 95 07/02/19 07:51 101 07/02/19 04:00 93 07/02/19 04:00 97.6 66 24 157/103 (121) 100 07/02/19 04:00 Nasal Cannula 2.0 Nasal Cannula 2.0 Nasal Cannula 2.0 07/02/19 04:00 2.0 07/02/19 00:00 78 07/02/19 00:00 Nasal Cannula 2.0 Nasal Cannula 2.0 Nasal Cannula 2.0 07/02/19 00:00 2.0 07/02/19 00:00 98.0 102 24 122/65 (84) 100 07/01/19 20:00 Nasal Cannula 2.0 Nasal Cannula 2.0 Nasal Cannula 2.0 07/01/19 20:00 98.0 102 24 150/73 (98) 100 07/01/19 20:00 2.0 07/01/19 20:00 76 07/01/19 18:44 82 18 98 Nasal Cannula 2.0 28 07/01/19 18:44 98 Nasal Cannula 2.0 28 07/01/19 16:00 97.8 106 21 161/74 (103) 100 07/01/19 16:00 78 07/01/19 16:00 Nasal Cannula 2.0 Nasal Cannula 2.0 Nasal Cannula 2.0 07/01/19 16:00 2.0 Intake and Output 07/01/19 07/02/19 19:00 07:00 Intake Total 1125 ml 250 ml Output Total 200 ml Balance 925 ml 250 ml IV Total 50 ml Tube Feeding 75 ml 250 ml Hemodialysis 1000 ml Output Urine Total 200 ml # Bowel Movements 2 Laboratory Tests 07/02/19 03:50: White Blood Count 27.1*H, Red Blood Count 2.63L, Hemoglobin 7.3L, Hematocrit 22.9L, Mean Corpuscular Volume 87, Mean Corpuscular Hemoglobin 27.7, Mean Corpuscular Hemoglobin Concent 31.9L, Red Cell Distribution Width 12.4, Platelet Count 132L, Mean Platelet Volume 9.6, Neutrophils (%) (Auto) , Lymphocytes (%) (Auto) , Monocytes (%) (Auto) , Eosinophils (%) (Auto) , Basophils (%) (Auto) , Differential Total Cells Counted 100, Neutrophils % ( Manual) 85H, Lymphocytes % (Manual) 9L, Monocytes % (Manual) 4, Eosinophils % ( Manual) 2, Basophils % (Manual) 0, Band Neutrophils 0, Platelet Estimate DecreasedL, Platelet Morphology Normal, Hypochromasia 3+, Anisocytosis 1+, Sodium Level 142, Potassium Level 3.8, Chloride Level 100, Carbon Dioxide Level 24, Anion Gap 18H, Blood Urea Nitrogen 105H, Creatinine 4.9H, Estimat Glomerular Filtration Rate 10.2, Glucose Level 151H, Calcium Level 8.7, Total Bilirubin 3.2H, Direct Bilirubin 2.0H, Aspartate Amino Transf (AST/SGOT) 110H, Alanine Aminotransferase (ALT/SGPT) 97H, Alkaline Phosphatase 96, Total Protein 5.5L, Albumin 3.1L, Globulin 2.4, Albumin/Globulin Ratio 1.3, Triglycerides Level 147, Cholesterol Level 98, LDL Cholesterol 48, HDL Cholesterol 28L, Cholesterol/HDL Ratio 3.5, Amylase Level 852*H, Lipase 9431H Height (Feet): 5 Height (Inches): 4.00 Weight (Pounds): 115 Objective General Appearance: lethargic, confused, on bipap Lines, tubes and drains: peripheral HEENT: normocephalic, atraumatic Neck: non-tender Respiratory/Chest: minimal breath sounds on the left Cardiovascular/Chest: normal peripheral pulses, normal rate, regular rhythm, regularly irregular Abdomen: non tender, soft Rory Oconnor M.D. Jul 02, 2019 12:34
--- NOTE | 2019-07-02 16:12 | Surgery Progress Note ---
Surgery Progress Note Subjective Procedure Performed Left femoral temporary hemodialysis catheter insertion Additional Comments no acute events labs noted imaging reviewd Objective Last 24 Hour Vital Signs Date Time Temp Pulse Resp B/P (MAP) Pulse Ox O2 Delivery O2 Flow Rate FiO2 07/02/19 13:18 97.6 07/02/19 12:00 Nasal Cannula 2.0 Nasal Cannula 2.0 Nasal Cannula 2.0 07/02/19 12:00 2.0 07/02/19 12:00 97.9 106 16 120/71 (87) 97 07/02/19 11:33 107 07/02/19 09:47 97.6 07/02/19 08:00 2.0 07/02/19 08:00 Nasal Cannula 2.0 Nasal Cannula 2.0 Nasal Cannula 2.0 07/02/19 08:00 98.4 86 17 127/69 (88) 95 07/02/19 07:51 101 07/02/19 04:00 93 07/02/19 04:00 97.6 66 24 157/103 (121) 100 07/02/19 04:00 Nasal Cannula 2.0 Nasal Cannula 2.0 Nasal Cannula 2.0 07/02/19 04:00 2.0 07/02/19 00:00 78 07/02/19 00:00 Nasal Cannula 2.0 Nasal Cannula 2.0 Nasal Cannula 2.0 07/02/19 00:00 2.0 07/02/19 00:00 98.0 102 24 122/65 (84) 100 07/01/19 20:00 Nasal Cannula 2.0 Nasal Cannula 2.0 Nasal Cannula 2.0 07/01/19 20:00 98.0 102 24 150/73 (98) 100 07/01/19 20:00 2.0 07/01/19 20:00 76 07/01/19 18:44 82 18 98 Nasal Cannula 2.0 28 07/01/19 18:44 98 Nasal Cannula 2.0 28 I&O Intake and Output 07/01/19 07/02/19 19:00 07:00 Intake Total 1125 ml 250 ml Output Total 200 ml Balance 925 ml 250 ml IV Total 50 ml Tube Feeding 75 ml 250 ml Hemodialysis 1000 ml Output Urine Total 200 ml # Bowel Movements 2 Dressing: other Wound: other Drains: other Cardiovascular: RSR Respiratory: decreased breath sounds Abdomen: soft, present bowel sounds, non-distended Extremities: no cyanosis Laboratory Tests Test 07/02/19 03:50 White Blood Count 27.1 K/UL (4.8-10.8) *H Red Blood Count 2.63 M/UL (4.20-5.40) L Hemoglobin 7.3 G/DL (12.0-16.0) L Hematocrit 22.9 % (37.0-47.0) L Mean Corpuscular Volume 87 FL (80-99) Mean Corpuscular Hemoglobin 27.7 PG (27.0-31.0) Mean Corpuscular Hemoglobin Concent 31.9 G/DL (32.0-36.0) L Red Cell Distribution Width 12.4 % (11.6-14.8) Platelet Count 132 K/UL (150-450) L Mean Platelet Volume 9.6 FL (6.5-10.1) Neutrophils (%) (Auto) % (45.0-75.0) Lymphocytes (%) (Auto) % (20.0-45.0) Monocytes (%) (Auto) % (1.0-10.0) Eosinophils (%) (Auto) % (0.0-3.0) Basophils (%) (Auto) % (0.0-2.0) Differential Total Cells Counted 100 Neutrophils % (Manual) 85 % (45-75) H Lymphocytes % (Manual) 9 % (20-45) L Monocytes % (Manual) 4 % (1-10) Eosinophils % (Manual) 2 % (0-3) Basophils % (Manual) 0 % (0-2) Band Neutrophils 0 % (0-8) Platelet Estimate Decreased L Platelet Morphology Normal Hypochromasia 3+ Anisocytosis 1+ Sodium Level 142 MMOL/L (136-145) Potassium Level 3.8 MMOL/L (3.5-5.1) Chloride Level 100 MMOL/L (98-107) Carbon Dioxide Level 24 MMOL/L (21-32) Anion Gap 18 mmol/L (5-15) H Blood Urea Nitrogen 105 mg/dL (7-18) H Creatinine 4.9 MG/DL (0.55-1.30) H Estimat Glomerular Filtration Rate 10.2 mL/min (>60) Glucose Level 151 MG/DL (74-106) H Calcium Level 8.7 MG/DL (8.5-10.1) Total Bilirubin 3.2 MG/DL (0.2-1.0) H Direct Bilirubin 2.0 MG/DL (0.0-0.3) H Aspartate Amino Transf (AST/SGOT) 110 U/L (15-37) H Alanine Aminotransferase (ALT/SGPT) 97 U/L (12-78) H Alkaline Phosphatase 96 U/L (46-116) Total Protein 5.5 G/DL (6.4-8.2) L Albumin 3.1 G/DL (3.4-5.0) L Globulin 2.4 g/dL Albumin/Globulin Ratio 1.3 (1.0-2.7) Triglycerides Level 147 MG/DL (30-150) Cholesterol Level 98 MG/DL (< 200) LDL Cholesterol 48 mg/dL (<100) HDL Cholesterol 28 MG/DL (40-60) L Cholesterol/HDL Ratio 3.5 (3.3-4.4) Amylase Level 852 U/L (25-115) *H Lipase 9431 U/L (73-393) H Plan Problems: (1) Fall Assessment & Plan: 88 year old female s/p fall now with renal insufficiency requiring HD spoke with family. she has known CKD multiple decubitus ulcers from being down malnutrition line placed see documentation trend labs abx HD thank you prognosis guarded family at bedside cxr noted pna worsening DAILY ESTIMATED NEEDS: Needs based on Wounds, 51.8kg 30-35 kcals/kg 4923-6228 total kcals 1.25-1.5 g protein/kg 65-78 g total protein 25-30ml/kcal mL/kg 7623-9924 total fluid mLs NUTRITION DIAGNOSIS: * Increased kcal and pro needs r/t wound healing and renal failure as evidenced by, s/p fall w/ pressure wounds per MD, refer to WC eval, ARF needing HD. * Swallowing difficulty R/T dysphagia as evidenced by s/p NGT placement, plan for PEG placement w/ consent and medical clearance, TF held for possible pancreatitis. CURRENT TF:NPO- TF HELD FOR POSSIBLE PANCREATITIS ENTERAL NUTRITION RECOMMENDATIONS: NEPRO @36ml/hr x24 hrs to provide 864ml, 1555 kcal, 70g pro, 628ml free H2O free H2O - As medically appropriate, resume TF - Start @16ml/hr for 8 hrs, advance as tolerated 5ml/hr q4-6 hrs to goal. - Flush per MD/ HOB Over 30 degrees - PT AT HIGH RISK FOR REFEEDING SYNDROME, MONITOR LYTES DAILY, REPLETE NEEDED ADDITIONAL RECOMMENDATIONS: 1) Monitor ability to resume TF NGT feeds held 06/30 for possible pancreatitis. If unable to feed via GI, consider initiating TPN due to proloned NPO, minimal intake status 2) WOUND CARE: W/ active TF order add VASQUEZ in 4oz H2O BID 3) Rec added dextrose when NPO 4) Calibrated bed scale wts daily 5) Monitor lytes closely w/ TF- high risk for refeeding syndrome (2) Altered level of consciousness (3) Fracture of lumbar spine Assessment & Plan: Lungs: There is increased density at the lung bases likely atelectasis. Aorta is moderately calcified. There is a small hiatal hernia.. Liver: Grossly unremarkable. There is artifact limiting evaluation in addition to the fact that no IV or oral contrast was given for this examination. Gallbladder/biliary system: Grossly unremarkable. Spleen: Unremarkable Pancreas: In the area of the pancreatic tail there is a 1.6 cm nodular density which may be cystic. Further evaluation is recommended. Kidneys/Bladder: Vascular calcifications are quite extensive and extend to the hilum of both kidneys. Evaluation for punctate nonobstructive stones is limited in this setting but no definite stones seen. There is no hydronephrosis. Extensive breathing motion limiting evaluation.. Adrenal glands: Unremarkable Bowel: Patient's prior partial bowel resection in the right lower abdomen with anastomotic sutures noted. There is no evidence of a bowel obstruction or inflammatory changes. Appendix is not seen definitely but there are no signs of appendicitis. A few diverticula are noted within the colon. Aorta/IVC: There is a severe calcification of aorta and multiple branches of the aorta. Peritoneum: There is no free fluid. Bones: Bones are diffusely osteopenic. Multiple compression fracture deformities of several vertebra noted including lower thoracic vertebra and L1. There is narrowing of intervertebral discs and accompanying endplate osteophyte formation. Hypertrophied facet joints also demonstrated. Scoliosis of the lower thoracic spine convex to the right and left convex lumbar scoliosis noted. IMPRESSION: No acute findings appreciated. Study limited by the lack of intravenous oral contrast as well as extensive motion artifact. 1.6 cm probable cystic lesion in the pancreatic tail. This requires further evaluation with the contrast CT or MR. Status post previous partial bowel resection. 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 Degenerative changes as described above. (4) Rhabdomyolysis (5) KAREN (acute kidney injury) (6) Decubitus skin ulcer Assessment & Plan: Pt presented on admission with multiple pressure injuries. Pt's niece Sarah stated pt lives alone and found pt laying on her R side on floor in patient's home.Niece believes pt has been laying on floor for approx 5 days. DTPI noted to R cheek. Base of wound is purple with marginal erythema along borders.(L)1.2cm x (W)1.6cm. Unstageable pressure injury R shoulder. Base of wound is 100% necrotic with marginal erythema along borders.(L)4.8cm x (W).3.5cm . DTPI R humerus. Base of wound is fluctuant and maroon in colour with surrounding erythema. (L)10.6cm x (W)3.1cm. DTPI R elbow.Base of wound is indurated with scattered areas that are purple in colour. An area of fluctuance in center. Marginal erythema along borders.(L) 5.3cm x (W)10.4cm. Partially opened Sacral DTPI. Base of wound is purple with surrounding erythema. Partial open wound marco a cleft that is corby and moist.(L)5.3cm x (W) 4.5cm.NO odor or exudate noted. Non-blanching erythema periwound. DTPI L ischium . Base of wound is purple and indurated.(L)6cm x (W)7.5cm. Unstageable pressure injury R hip. Base of wound is 75% necrotic, 25% mixed erythema and slough. Borders are moist,soft with scattered areas that are black. Periwound is dusky and indurated.No odor or exudate noted. DTPI at posterior and medial aspect of L heel. Base of wound is maroon and fluctuant(L)4cm x (W)7cm. Unstageable pressure injury L Hallux. Base of wound is 100% necrotic but soft. Borders are erythematous. Periwound without induration or fluctuance.(L)2.5cm x (W)3cm. DTPI medial L malleolus. Base of wound fluctuant and maroon in colour.(L) 0.3cm x (W)1.2cm. DTPI medial L malleolus. Base of wound fluctuant and maroon in colour with Marginal erythema along borders.(L)0.3cm x (W)1.2cm. Intact blood filled blisters noted to L 1st Metatarsal laterally and head of metatarsal. Intact blood filled blisters noted to heads of L 2nd and L 3rd metatarsals. DTPI noted to posterior and lateral R Heel. Posterior R heel is maroon in colour and fluctuant at base. Laterally ,R heel is black and fluctuant at base.Periwound is boggy and non-blanchable.(L)7cm x (W)8cm. Unstageable pressure injury lateral R malleolus. Base of wound is 100% necrotic and dry.Marginal erythema along borders.Periwound is fluctuant and erythematous( L)1.2cm x (W)1.5cm. DTPI distal/lateral R foot. Base of wound is fluctuant and maroon in colour.(L) 1.3cm x (W)1.7cm. DTPI lateral R 5th metatarsal. Base of wound is maroon and fluctuant with marginal erythema along borders .(L)0.7cm x (W)1.1cm Tx.Plan: Cleanse Wound R shoulder with Saline. Apply Therahoney. Apply Cavilon Skin barrier periwound. Cover with Optifoam drsg every 3 days and prn. Cleanse R hip wound with Saline. Apply Therahoney with 4x4 Gauze. Apply Moisture Barrier Paste periwound.Cover with Optifoam drsg. Daily and prn. Apply Moisture Barrier Paste to Sacral wound and L Ischium. Cover each wound with Optifoam drsg every 3 days and prn. Apply Betadine to R humerus and R elbow . Cover each wound with Optifoam drsg. Change every 3 days and prn. Apply Betadine to wounds R heel, R malleolus and R foot . Cover each wound with Optifoam drsg every 3 days and prn. Apply Betadine to wounds L heel ,L medial malleolus and L foot. Cover each wound with Optifoam drsgs every 3 Days and prn. Air Fluidized Mattress. Reposition at least every 2hours or as tolerated. Place Pillow between knees. Off-load heels with pillow. Anshul Nava Jul 02, 2019 16:12
[2019-07-02] MEDS: Gabapentin 300 MG/6 ML Soln GT SCH (18:31)
--- NOTE | 2019-07-02 20:33 | Psych Consult Progress Note ---
Psychiatry Progress Note Psychiatry Progress Note Medications Current Medications Medications (Trade) Dose Ordered Sig/Joan Route PRN Reason Start Time Stop Time Status Last Admin Dose Admin Acetaminophen (Tylenol) 650 mg Q4H PRN NG Mild Pain/Temp > 100.5 07/02/19 12:30 08/01/19 12:29 Acetylcysteine (Mucomyst) 100 mg Q4HRT PRN HHN Shortness of Breath 06/25/19 23:45 07/25/19 22:59 Albumin Human 100 ml @ 100 mls/hr NEEDED PRN IV DIALYSIS 06/27/19 14:00 07/27/19 13:59 Barium Sulfate (Readi-Cat 2) 450 ml NOW PRN ORAL Radiology Procedure 07/01/19 08:30 07/03/19 08:17 07/01/19 15:58 Chlorhexidine Gluconate (Cari-Hex 2%) 1 applic DAILY@2000 TOPIC 06/26/19 20:00 07/26/19 19:59 07/01/19 21:22 Dextrose (Dextrose 50%) 25 ml Q30M PRN IV Hypoglycemia 06/24/19 19:52 07/24/19 19:51 Dextrose (Dextrose 50%) 50 ml Q30M PRN IV Hypoglycemia 06/24/19 19:52 07/24/19 19:51 Diphenhydramine HCl (Benadryl) 25 mg Q6H PRN ORAL Itching/Pruritis 06/24/19 19:52 07/24/19 19:51 07/02/19 12:11 Furosemide (Lasix) 40 mg DAILY IV 06/30/19 20:00 07/30/19 19:59 07/02/19 09:18 Gabapentin (Neurontin) 300 mg BID GT 07/02/19 18:00 08/01/19 17:59 07/02/19 18:31 Hydromorphone HCl (Dilaudid) 0.5 mg Q2H PRN IVP Severe Pain (Pain Scale 7-10) 07/02/19 12:30 07/09/19 12:29 07/02/19 15:34 Iohexol (OMNIPAQUE-300 100ml) 100 ml NOW PRN INJ Radiology Procedure 07/01/19 08:30 07/03/19 08:17 Linezolid 300 ml @ 300 mls/hr EVERY 12 HOURS IVPB 06/30/19 21:00 07/07/19 20:59 07/02/19 09:17 Meropenem 500 mg/ Sodium Chloride 50 ml @ 100 mls/hr Q24HRS IVPB 06/30/19 17:00 07/05/19 16:59 07/01/19 18:08 Ondansetron HCl (Zofran) 4 mg Q6H PRN IVP Nausea & Vomiting 06/24/19 19:52 07/24/19 19:51 Pantoprazole (Protonix) 40 mg DAILY IVP 06/30/19 09:00 07/30/19 08:59 07/02/19 09:00 Neurological/Psychiatric: Reports: anxiety, depressed, emotional problems Allergies: Coded Allergies: No Known Allergies (Unverified , 06/24/19) Objective Data Height (Feet): 5 Height (Inches): 4.00 Weight (Pounds): 115 General Appearance: WD/WN, alert, confused, moderate distress, agitated Additional Comments: waxing and waning consciousness, disoriented. Mood is agitated. Affect is flat. Thought process is concrete. Thought content, no suicidal or homicidal ideation. Cognition is impaired. Insight and judgment impaired. ASSESSMENT: AXIS I: Acute toxic encephalopathy. AXIS II: Deferred. AXIS III: Status post fall. AXIS IV: Low AXIS V: 20. PLAN: 1. We will start the patient on low dose of Neurontin. 2. The patient may benefit from low dose of antipsychotics. 3. We will continue to follow and readjust the medications. Assessment/Plan Status: stable Jaime Jackson MD Jul 02, 2019 20:33
[2019-07-02] MEDS: Dyna-Hex 2% Top Sol 2oz TOPIC SCH (20:37)
--- NOTE | 2019-07-02 20:52 | Consultation ---
History of Present Illness General Chief Complaint: Altered Level of Consciousness Present Illness Allergies: Coded Allergies: No Known Allergies (Unverified , 06/24/19) Medication History Scheduled Furosemide* (Lasix*), 20 MG ORAL TID, (Reported) Gabapentin* (Gabapentin*), 600 MG ORAL THREE TIMES A DAY, (Reported) Scheduled PRN Hydroxyzine HCl (Hydroxyzine HCl), 25 MG ORAL Q6HR PRN for Itching, (Reported) Oxycodone Hcl/Acetaminophen 10-325 Mg Tablet (Percocet 10-325 Mg Tablet*), 1 TAB ORAL Q6H PRN for For Pain, (Reported) Miscellaneous Medications [Unable To Obtain], (Reported) Patient History Healthcare decision maker Jami Palafox Resuscitation status Full Code Advanced Directive on File No Physical Exam Last 24 Hour Vital Signs Date Time Temp Pulse Resp B/P (MAP) Pulse Ox O2 Delivery O2 Flow Rate FiO2 07/02/19 20:38 91 18 97 Nasal Cannula 2.0 28 07/02/19 20:38 97 Nasal Cannula 2.0 28 07/02/19 20:00 98.0 98 18 138/79 (98) 96 07/02/19 19:31 107 07/02/19 16:00 Nasal Cannula 2.0 Nasal Cannula 2.0 Nasal Cannula 2.0 07/02/19 16:00 2.0 07/02/19 16:00 98.8 95 18 106/50 (68) 96 07/02/19 15:31 97 07/02/19 13:18 97.6 07/02/19 12:00 Nasal Cannula 2.0 Nasal Cannula 2.0 Nasal Cannula 2.0 07/02/19 12:00 2.0 07/02/19 12:00 97.9 106 16 120/71 (87) 97 07/02/19 11:33 107 07/02/19 09:47 97.6 07/02/19 08:18 97 Nasal Cannula 2.0 28 07/02/19 08:18 95 18 97 Nasal Cannula 2.0 28 07/02/19 08:00 2.0 07/02/19 08:00 Nasal Cannula 2.0 Nasal Cannula 2.0 Nasal Cannula 2.0 07/02/19 08:00 98.4 86 17 127/69 (88) 95 07/02/19 07:51 101 07/02/19 04:00 93 07/02/19 04:00 97.6 66 24 157/103 (121) 100 07/02/19 04:00 Nasal Cannula 2.0 Nasal Cannula 2.0 Nasal Cannula 2.0 07/02/19 04:00 2.0 07/02/19 00:00 78 07/02/19 00:00 Nasal Cannula 2.0 Nasal Cannula 2.0 Nasal Cannula 2.0 07/02/19 00:00 2.0 07/02/19 00:00 98.0 102 24 122/65 (84) 100 Intake and Output 07/01/19 07/02/19 19:00 07:00 Intake Total 1125 ml 250 ml Output Total 200 ml Balance 925 ml 250 ml IV Total 50 ml Tube Feeding 75 ml 250 ml Hemodialysis 1000 ml Output Urine Total 200 ml # Bowel Movements 2 Laboratory Tests Test 07/02/19 03:50 White Blood Count 27.1 K/UL (4.8-10.8) *H Red Blood Count 2.63 M/UL (4.20-5.40) L Hemoglobin 7.3 G/DL (12.0-16.0) L Hematocrit 22.9 % (37.0-47.0) L Mean Corpuscular Volume 87 FL (80-99) Mean Corpuscular Hemoglobin 27.7 PG (27.0-31.0) Mean Corpuscular Hemoglobin Concent 31.9 G/DL (32.0-36.0) L Red Cell Distribution Width 12.4 % (11.6-14.8) Platelet Count 132 K/UL (150-450) L Mean Platelet Volume 9.6 FL (6.5-10.1) Neutrophils (%) (Auto) % (45.0-75.0) Lymphocytes (%) (Auto) % (20.0-45.0) Monocytes (%) (Auto) % (1.0-10.0) Eosinophils (%) (Auto) % (0.0-3.0) Basophils (%) (Auto) % (0.0-2.0) Differential Total Cells Counted 100 Neutrophils % (Manual) 85 % (45-75) H Lymphocytes % (Manual) 9 % (20-45) L Monocytes % (Manual) 4 % (1-10) Eosinophils % (Manual) 2 % (0-3) Basophils % (Manual) 0 % (0-2) Band Neutrophils 0 % (0-8) Platelet Estimate Decreased L Platelet Morphology Normal Hypochromasia 3+ Anisocytosis 1+ Sodium Level 142 MMOL/L (136-145) Potassium Level 3.8 MMOL/L (3.5-5.1) Chloride Level 100 MMOL/L (98-107) Carbon Dioxide Level 24 MMOL/L (21-32) Anion Gap 18 mmol/L (5-15) H Blood Urea Nitrogen 105 mg/dL (7-18) H Creatinine 4.9 MG/DL (0.55-1.30) H Estimat Glomerular Filtration Rate 10.2 mL/min (>60) Glucose Level 151 MG/DL (74-106) H Calcium Level 8.7 MG/DL (8.5-10.1) Total Bilirubin 3.2 MG/DL (0.2-1.0) H Direct Bilirubin 2.0 MG/DL (0.0-0.3) H Aspartate Amino Transf (AST/SGOT) 110 U/L (15-37) H Alanine Aminotransferase (ALT/SGPT) 97 U/L (12-78) H Alkaline Phosphatase 96 U/L (46-116) Total Protein 5.5 G/DL (6.4-8.2) L Albumin 3.1 G/DL (3.4-5.0) L Globulin 2.4 g/dL Albumin/Globulin Ratio 1.3 (1.0-2.7) Triglycerides Level 147 MG/DL (30-150) Cholesterol Level 98 MG/DL (< 200) LDL Cholesterol 48 mg/dL (<100) HDL Cholesterol 28 MG/DL (40-60) L Cholesterol/HDL Ratio 3.5 (3.3-4.4) Amylase Level 852 U/L (25-115) *H Lipase 9431 U/L (73-393) H Height (Feet): 5 Height (Inches): 4.00 Weight (Pounds): 115 Medications Current Medications Medications (Trade) Dose Ordered Sig/Joan Route PRN Reason Start Time Stop Time Status Last Admin Dose Admin Acetaminophen (Tylenol) 650 mg Q4H PRN NG Mild Pain/Temp > 100.5 07/02/19 12:30 08/01/19 12:29 Acetylcysteine (Mucomyst) 100 mg Q4HRT PRN HHN Shortness of Breath 06/25/19 23:45 07/25/19 22:59 Albumin Human 100 ml @ 100 mls/hr NEEDED PRN IV DIALYSIS 06/27/19 14:00 07/27/19 13:59 Barium Sulfate (Readi-Cat 2) 450 ml NOW PRN ORAL Radiology Procedure 07/01/19 08:30 07/03/19 08:17 07/01/19 15:58 Chlorhexidine Gluconate (Cari-Hex 2%) 1 applic DAILY@2000 TOPIC 06/26/19 20:00 07/26/19 19:59 07/02/19 20:37 Dextrose (Dextrose 50%) 25 ml Q30M PRN IV Hypoglycemia 06/24/19 19:52 07/24/19 19:51 Dextrose (Dextrose 50%) 50 ml Q30M PRN IV Hypoglycemia 06/24/19 19:52 07/24/19 19:51 Diphenhydramine HCl (Benadryl) 25 mg Q6H PRN ORAL Itching/Pruritis 06/24/19 19:52 07/24/19 19:51 07/02/19 12:11 Furosemide (Lasix) 40 mg DAILY IV 06/30/19 20:00 07/30/19 19:59 07/02/19 09:18 Gabapentin (Neurontin) 300 mg BID GT 07/02/19 18:00 08/01/19 17:59 07/02/19 18:31 Hydromorphone HCl (Dilaudid) 0.5 mg Q2H PRN IVP Severe Pain (Pain Scale 7-10) 07/02/19 12:30 07/09/19 12:29 07/02/19 15:34 Iohexol (OMNIPAQUE-300 100ml) 100 ml NOW PRN INJ Radiology Procedure 07/01/19 08:30 07/03/19 08:17 Linezolid 300 ml @ 300 mls/hr EVERY 12 HOURS IVPB 06/30/19 21:00 07/07/19 20:59 07/02/19 20:37 Meropenem 500 mg/ Sodium Chloride 50 ml @ 100 mls/hr Q24HRS IVPB 06/30/19 17:00 07/05/19 16:59 07/01/19 18:08 Ondansetron HCl (Zofran) 4 mg Q6H PRN IVP Nausea & Vomiting 06/24/19 19:52 07/24/19 19:51 Pantoprazole (Protonix) 40 mg DAILY IVP 06/30/19 09:00 07/30/19 08:59 07/02/19 09:00 Assessment/Plan Assessment/Plan: Heme Consultation Note REQ MD: Oumar Dickens RFC: Progressive anemia, low plt and high wbc, pancreatic cystic lesion DOS: 07/02/19 HPI Patient Is an 88-year-old female brought in by EMS after unwitnessed fall and altered level of consciousness. Patient was noted to have adequate blood sugar greater than 100. She had been found on the floor with unknown last well time. She was noted to have some pressure sores to the right side of her body. She had some skin stuck to the floor apparently unknown date of injury. Patient had prior history of neuropathy and normally walks with a walker and is normally verbal. History is markedly limited by patient's mental status. Has been seen by other providers and recs are noted, has been here 8 days and has developed worsening counts. Allergies: Coded Allergies: No Known Allergies (Unverified , 06/24/19) Patient History Past Medical History: see triage record Reviewed Nursing Documentation: PMH: Agreed; PSxH: Agreed Nursing Documentation-PMH Past Medical History: No History, Except For ROS (review of systems): limited, is apoor historian in general Physical Exam: Vitals: reviewed General: NAD, groans to pain stimuli HEENT: nc, at Neck: supple Chest: clear breath sounds bilaterally Cardiovascular: RRR, no s3, s4 Abdomen: soft, nontender, nd Extremities: no cce, normal range of motion Neuro: alert and oriented Skin: other - pressure sores to right side Labs: noted Imaging: reviewed Assessment and Recs # 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 Otherwise unremarkable pancreas --> as per gi, may need further eval with endsocopy --> with pancreatitis at this time, may be obscuring picture --> reimage in short order, 6 months --> ca19.9 to order, but may be elevated due to pancreatitis # Leukocytosis/elevated white blood cell count, unspecified likely related to underlying stress reaction, smoking v more likely infection in this case, bacteremia --> have reviewed peripheral smear and bandemia/neutrophilia noted --> continue antibiotics if they have been started by ID team --> monitor for resolution --> as per id care, on broad spectrum abx # Anemia of chronic disease due to underlying chronic medical issues, multifactorial v Gi bleed --> Anemia workup has been ordered, rule out gi bleed --> No evidence of hemolysis is noted, peripheral smear has been reviewed. --> Hgb goal >7. Transfuse prn. --> Epogen or iron at this time is not particularly indicated --> Medications have been reviewed --> low threshold for gi evaluation in case has occult + --> bone marrow biopsy is not indicated given the other more likely causes # Thrombocytopenia - potential causes multifactorial, evaluate liver and viral etiologies to begin, in this case due to sepsisand pancreatitis --> Hep panel and HIV ordered --> US abd to evaluate for cirrhosis and hsm ordered --> Peripheral smear ordered to evaluate for blasts /schistocytes --> abx and other meds have been reviewed --> ok for ppx if plt >50k w/ either heparin or lovenox # Acute renal failure - on HD UF --> hd with fem left omari # Uremic encephalopathy --> renal US-> No obstructive nephropathy # Left lung PNA - likely aspiration --> abx as per id # Acute hypoxic respiratory failure s/p BiPAP - improved # Strep Viridans bacteremia --> s/p abx # Dysphagia --> NGT for feeding for now --> Tentative plan for PEG on # L1 vertebral fracture - likely old # Transaminitis # Acute pancreatitis The timing of this note does not necessarily reflect the time of the patient was seen. Greatly appreciate consultation. Bola Aldridge MD Jul 02, 2019 20:52
[2019-07-02] MEDS ORDERED: Tubing IV Secondary IV ONE (22:13)
[2019-07-03] VITALS (7 sets, daily range): BP systolic 95–148; BP diastolic 48–63
[2019-07-03] MEDS: Hydromorphone 0.5mg/0.5ml inj IVP PRN ×3 (02:10→21:14)
--- NOTE | 2019-07-03 02:15 | Consultation ---
DATE OF CONSULTATION: 06/24/2019 CONSULTING PHYSICIAN: Jaime Jackson M.D. HISTORY OF PRESENT ILLNESS: This is an 88-year-old female with a history of multiple medical issues including diabetes, pneumonia, sepsis, leukocytosis, neuropathy, who has been admitted to the hospital due to medical stabilization. The patient before this hospitalization was living alone. The patient is easily agitated. She fell and was having altered level of the consciousness. The patient is yelling, screaming and after giving Dilaudid intravenous, the patient falls asleep, wakes up, yelling, screaming again. The family at bedside. We have discussed the pain issues. The patient used to be on Neurontin in the past. In the hospital, she is not on Neurontin; the family believed this is due to more anxiety and neuropathy pain. The patient's family agreed to start the patient on low dose of Neurontin. PAST PSYCHIATRIC HISTORY: Significant for anxiety disorder. PAST MEDICAL HISTORY: Significant for, 1. Decubitus skin ulcer. 2. Rhabdomyolysis. 3. Fracture of the lumbar spine. 4. Acute kidney injury. ALLERGIES: No known drug allergies. SUBSTANCE ABUSE HISTORY: No history of illicit drug use or alcohol. MENTAL STATUS EXAMINATION: The patient is having waxing and waning consciousness, disoriented. Mood is agitated. Affect is flat. Thought process is concrete. Thought content, no suicidal or homicidal ideation. Cognition is impaired. Insight and judgment impaired. ASSESSMENT: AXIS I: Acute toxic encephalopathy. AXIS II: Deferred. AXIS III: Status post fall. AXIS IV: Low AXIS V: 20. PLAN: 1. We will start the patient on low dose of Neurontin. 2. The patient may benefit from low dose of antipsychotics. 3. We will continue to follow and readjust the medications. Jaime Jackson M.D. DR: Usman JOB#: [id number] CC:
[2019-07-03 05:40] LABS: HEMATOCRIT 25.6 % (37.0-47.0); HEMOGLOBIN 8.7 G/DL (12.0-16.0); MEAN CORPUSCULAR VOLUME 86 FL (80-99); PLATELET COUNT 178 K/UL (150-450); RED BLOOD COUNT 2.97 M/UL (4.20-5.40); RED CELL DISTRIBUTION WIDTH 12.1 % (11.6-14.8)
[2019-07-03 05:44] LABS: INR 0.9 (0.9-1.1)
[2019-07-03 05:48] LABS: ALANINE AMINOTRANSFERASE 73 U/L (12-78); ALBUMIN 3.1 G/DL (3.4-5.0); ALKALINE PHOSPHATASE 87 U/L (46-116); AMYLASE 332 U/L (25-115); ANION GAP 20 mmol/L (5-15); ASPARTATE AMINO TRANSFERASE 52 U/L (15-37); BILIRUBIN,TOTAL 1.2 MG/DL (0.2-1.0); BLOOD UREA NITROGEN 104 mg/dL (7-18); CALCIUM 8.6 MG/DL (8.5-10.1); CARBON DIOXIDE 16 MMOL/L (21-32); CHLORIDE 101 MMOL/L (98-107); CREATININE 4.8 MG/DL (0.55-1.30); POTASSIUM 3.6 MMOL/L (3.5-5.1); SODIUM 136 MMOL/L (136-145)
[2019-07-03 05:50] LABS: BILIRUBIN,DIRECT 0.4 MG/DL (0.0-0.3)
[2019-07-03 05:59] LABS: WHITE BLOOD COUNT 23.9 K/UL (4.8-10.8)
--- NOTE | 2019-07-03 06:39 | Hematology/Onc Progress Note ---
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 Otherwise unremarkable pancreas --> as per gi, may need further eval with endsocopy --> with pancreatitis at this time, may be obscuring picture --> reimage in short order, 6 months --> ca19.9 to order, but may be elevated due to pancreatitis # Leukocytosis/elevated white blood cell count, unspecified likely related to underlying stress reaction, smoking v more likely infection in this case, bacteremia --> have reviewed peripheral smear and bandemia/neutrophilia noted --> continue antibiotics if they have been started by ID team --> monitor for resolution --> as per id care, on broad spectrum abx # Anemia of chronic disease due to underlying chronic medical issues, multifactorial v Gi bleed --> Anemia workup has been ordered, rule out gi bleed --> No evidence of hemolysis is noted, peripheral smear has been reviewed. --> Hgb goal >7. Transfuse prn. --> Epogen or iron at this time is not particularly indicated --> Medications have been reviewed --> low threshold for gi evaluation in case has occult + --> bone marrow biopsy is not indicated given the other more likely causes # Thrombocytopenia - potential causes multifactorial, evaluate liver and viral etiologies to begin, in this case due to sepsisand pancreatitis --> Hep panel and HIV ordered --> US abd to evaluate for cirrhosis and hsm ordered --> Peripheral smear ordered to evaluate for blasts /schistocytes --> abx and other meds have been reviewed --> ok for ppx if plt >50k w/ either heparin or lovenox # Acute renal failure - on HD UF --> hd with 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 Greatly appreciate consultation. Subjective Constitutional: Denies: no symptoms, chills, fever, malaise, weakness, other HEENT: Denies: no symptoms, eye pain, blurred vision, tearing, double vision, ear pain, ear discharge, nose pain, nose congestion, throat pain, throat swelling, mouth pain, mouth swelling, other Cardiovascular: Denies: no symptoms, chest pain, edema, irregular heart rate, lightheadedness, palpitations, syncope, other Respiratory: Denies: no symptoms, cough, shortness of breath, SOB with excertion, SOB at rest, sputum, wheezing, other Gastrointestinal/Abdominal: Denies: no symptoms, abdomen distended, abdominal pain, black stools, tarry stools, blood in stool, constipated, diarrhea, difficulty swallowing, nausea, poor appetite, poor fluid intake, rectal bleeding , vomiting, other Genitourinary: Denies: no symptoms, burning, discharge, frequency, flank pain, hematuria, incontinence, pain, urgency, other Neurologic/Psychiatric: Denies: no symptoms, anxiety, depressed, emotional problems, headache, numbness, paresthesia, pre-existing deficit, seizure, tingling, tremors, weakness, other Endocrine: Denies: no symptoms, excessive sweating, flushing, intolerance to cold, intolerance to heat, increased hunger, increased thirst, increased urine, unexplained weight gain, unexplained weight loss, other Hematologic/Lymphatic: Denies: no symptoms, anemia, easy bleeding, easy bruising, adenopathy, other Allergies: Coded Allergies: No Known Allergies (Unverified , 06/24/19) Subjective 07/02: resting in bed, appears to be comfortable, no bleeding, on merop, no events Objective Objective Current Medications Medications (Trade) Dose Ordered Sig/Joan Route PRN Reason Start Time Stop Time Status Last Admin Dose Admin Acetaminophen (Tylenol) 650 mg Q4H PRN NG Mild Pain/Temp > 100.5 07/02/19 12:30 08/01/19 12:29 Acetylcysteine (Mucomyst) 100 mg Q4HRT PRN HHN Shortness of Breath 06/25/19 23:45 07/25/19 22:59 Albumin Human 100 ml @ 100 mls/hr NEEDED PRN IV DIALYSIS 06/27/19 14:00 07/27/19 13:59 Barium Sulfate (Readi-Cat 2) 450 ml NOW PRN ORAL Radiology Procedure 07/01/19 08:30 07/03/19 08:17 07/01/19 15:58 Chlorhexidine Gluconate (Cari-Hex 2%) 1 applic DAILY@2000 TOPIC 06/26/19 20:00 07/26/19 19:59 07/02/19 20:37 Dextrose (Dextrose 50%) 25 ml Q30M PRN IV Hypoglycemia 06/24/19 19:52 07/24/19 19:51 Dextrose (Dextrose 50%) 50 ml Q30M PRN IV Hypoglycemia 06/24/19 19:52 07/24/19 19:51 Diphenhydramine HCl (Benadryl) 25 mg Q6H PRN ORAL Itching/Pruritis 06/24/19 19:52 07/24/19 19:51 07/02/19 12:11 Furosemide (Lasix) 40 mg DAILY IV 06/30/19 20:00 07/30/19 19:59 07/02/19 09:18 Gabapentin (Neurontin) 300 mg BID GT 07/02/19 18:00 08/01/19 17:59 07/02/19 18:31 Hydromorphone HCl (Dilaudid) 0.5 mg Q2H PRN IVP Severe Pain (Pain Scale 7-10) 07/02/19 12:30 07/09/19 12:29 07/03/19 04:47 Iohexol (OMNIPAQUE-300 100ml) 100 ml NOW PRN INJ Radiology Procedure 07/01/19 08:30 07/03/19 08:17 Linezolid 300 ml @ 300 mls/hr EVERY 12 HOURS IVPB 06/30/19 21:00 07/07/19 20:59 07/02/19 20:37 Meropenem 500 mg/ Sodium Chloride 50 ml @ 100 mls/hr Q24HRS IVPB 06/30/19 17:00 07/05/19 16:59 07/01/19 18:08 Ondansetron HCl (Zofran) 4 mg Q6H PRN IVP Nausea & Vomiting 06/24/19 19:52 07/24/19 19:51 Pantoprazole (Protonix) 40 mg DAILY IVP 3/8/20 09:00 07/30/19 08:59 07/02/19 09:00 Last 24 Hour Vital Signs Date Time Temp Pulse Resp B/P (MAP) Pulse Ox O2 Delivery O2 Flow Rate FiO2 07/03/19 05:17 98.0 07/03/19 04:00 2.0 07/03/19 04:00 98.0 95 18 122/55 (77) 98 07/03/19 04:00 Nasal Cannula 2.0 Nasal Cannula 2.0 Nasal Cannula 2.0 07/03/19 03:32 86 07/03/19 02:05 111 117/48 (71) 07/03/19 00:00 2.0 07/03/19 00:00 98.2 102 18 95/63 (74) 97 07/03/19 00:00 Nasal Cannula 2.0 Nasal Cannula 2.0 Nasal Cannula 2.0 07/02/19 23:28 88 07/02/19 22:15 94 112/58 (76) 07/02/19 21:00 103 95/69 (78) 07/02/19 20:38 91 18 97 Nasal Cannula 2.0 28 07/02/19 20:38 97 Nasal Cannula 2.0 28 07/02/19 20:00 Nasal Cannula 2.0 Nasal Cannula 2.0 Nasal Cannula 2.0 07/02/19 20:00 98.0 98 18 138/79 (98) 96 07/02/19 20:00 2.0 07/02/19 19:31 107 07/02/19 16:00 Nasal Cannula 2.0 Nasal Cannula 2.0 Nasal Cannula 2.0 07/02/19 16:00 2.0 07/02/19 16:00 98.8 95 18 106/50 (68) 96 07/02/19 15:31 97 07/02/19 12:00 Nasal Cannula 2.0 Nasal Cannula 2.0 Nasal Cannula 2.0 07/02/19 12:00 2.0 07/02/19 12:00 97.9 106 16 120/71 (87) 97 07/02/19 11:33 107 07/02/19 09:47 97.6 07/02/19 08:18 97 Nasal Cannula 2.0 28 07/02/19 08:18 95 18 97 Nasal Cannula 2.0 28 07/02/19 08:00 2.0 07/02/19 08:00 Nasal Cannula 2.0 Nasal Cannula 2.0 Nasal Cannula 2.0 07/02/19 08:00 98.4 86 17 127/69 (88) 95 07/02/19 07:51 101 07/02/19 04:00 93 07/02/19 04:00 97.6 66 24 157/103 (121) 100 07/02/19 04:00 Nasal Cannula 2.0 Nasal Cannula 2.0 Nasal Cannula 2.0 07/02/19 04:00 2.0 07/02/19 00:00 78 07/02/19 00:00 Nasal Cannula 2.0 Nasal Cannula 2.0 Nasal Cannula 2.0 07/02/19 00:00 2.0 07/02/19 00:00 98.0 102 24 122/65 (84) 100 07/01/19 20:00 Nasal Cannula 2.0 Nasal Cannula 2.0 Nasal Cannula 2.0 07/01/19 20:00 98.0 102 24 150/73 (98) 100 07/01/19 20:00 2.0 07/01/19 20:00 76 07/01/19 18:44 82 18 98 Nasal Cannula 2.0 28 07/01/19 18:44 98 Nasal Cannula 2.0 28 07/01/19 16:00 97.8 106 21 161/74 (103) 100 07/01/19 16:00 78 07/01/19 16:00 Nasal Cannula 2.0 Nasal Cannula 2.0 Nasal Cannula 2.0 07/01/19 16:00 2.0 07/01/19 12:00 98.0 84 24 133/63 (86) 100 07/01/19 12:00 2.0 07/01/19 12:00 75 07/01/19 12:00 Nasal Cannula 2.0 Nasal Cannula 2.0 Nasal Cannula 2.0 07/01/19 08:00 2.0 07/01/19 08:00 Nasal Cannula 2.0 Nasal Cannula 2.0 Nasal Cannula 2.0 07/01/19 08:00 98.6 94 25 145/73 (97) 96 07/01/19 08:00 97 07/01/19 07:00 85 18 95 Nasal Cannula 2.0 28 07/01/19 07:00 95 Nasal Cannula 2.0 28 Intake and Output 07/02/19 07/03/19 19:00 07:00 Intake Total 630 ml 840 ml Output Total 105 ml Balance 630 ml 735 ml Free Water 150 ml 100 ml IV Total 300 ml Tube Feeding 480 ml 440 ml Output Urine Total 105 ml # Bowel Movements 1 Labs Test 06/30/19 18:00 07/01/19 04:25 07/02/19 03:50 07/02/19 21:35 Stool Occult Blood Positive (NEGATIVE) White Blood Count 30.2 K/UL (4.8-10.8) 27.1 K/UL (4.8-10.8) Red Blood Count 2.63 M/UL (4.20-5.40) 2.63 M/UL (4.20-5.40) Hemoglobin 7.2 G/DL (12.0-16.0) 7.3 G/DL (12.0-16.0) Hematocrit 22.0 % (37.0-47.0) 22.9 % (37.0-47.0) Mean Corpuscular Volume 83 FL (80-99) 87 FL (80-99) Mean Corpuscular Hemoglobin 27.3 PG (27.0-31.0) 27.7 PG (27.0-31.0) Mean Corpuscular Hemoglobin Concent 32.7 G/DL (32.0-36.0) 31.9 G/DL (32.0-36.0) Red Cell Distribution Width 11.8 % (11.6-14.8) 12.4 % (11.6-14.8) Platelet Count 145 K/UL (150-450) 132 K/UL (150-450) Mean Platelet Volume 10.0 FL (6.5-10.1) 9.6 FL (6.5-10.1) Neutrophils (%) (Auto) % (45.0-75.0) % (45.0-75.0) Lymphocytes (%) (Auto) % (20.0-45.0) % (20.0-45.0) Monocytes (%) (Auto) % (1.0-10.0) % (1.0-10.0) Eosinophils (%) (Auto) % (0.0-3.0) % (0.0-3.0) Basophils (%) (Auto) % (0.0-2.0) % (0.0-2.0) Differential Total Cells Counted 100 100 Neutrophils % (Manual) 90 % (45-75) 85 % (45-75) Lymphocytes % (Manual) 3 % (20-45) 9 % (20-45) Monocytes % (Manual) 7 % (1-10) 4 % (1-10) Eosinophils % (Manual) 0 % (0-3) 2 % (0-3) Basophils % (Manual) 0 % (0-2) 0 % (0-2) Band Neutrophils 0 % (0-8) 0 % (0-8) Platelet Estimate Decreased Decreased Platelet Morphology Normal Normal Hypochromasia 1+ 3+ Erythrocyte Sedimentation Rate 70 MM/HR (0-30) Prothrombin Time 17.4 SEC (9.30-11.50) Prothromb Time International Ratio 1.7 (0.9-1.1) Activated Partial Thromboplast Time 37 SEC (23-33) Sodium Level 140 MMOL/L (136-145) 142 MMOL/L (136-145) Potassium Level 3.5 MMOL/L (3.5-5.1) 3.8 MMOL/L (3.5-5.1) Chloride Level 100 MMOL/L (98-107) 100 MMOL/L (98-107) Carbon Dioxide Level 21 MMOL/L (21-32) 24 MMOL/L (21-32) Anion Gap 20 mmol/L (5-15) 18 mmol/L (5-15) Blood Urea Nitrogen 97 mg/dL (7-18) 105 mg/dL (7-18) Creatinine 5.0 MG/DL (0.55-1.30) 4.9 MG/DL (0.55-1.30) Estimat Glomerular Filtration Rate 9.9 mL/min (>60) 10.2 mL/min (>60) Glucose Level 169 MG/DL (74-106) 151 MG/DL (74-106) Calcium Level 8.9 MG/DL (8.5-10.1) 8.7 MG/DL (8.5-10.1) Total Bilirubin 3.7 MG/DL (0.2-1.0) 3.2 MG/DL (0.2-1.0) Direct Bilirubin 2.2 MG/DL (0.0-0.3) 2.0 MG/DL (0.0-0.3) Gamma Glutamyl Transpeptidase 25 U/L (5-85) Aspartate Amino Transf (AST/SGOT) 106 U/L (15-37) 110 U/L (15-37) Alanine Aminotransferase (ALT/SGPT) 95 U/L (12-78) 97 U/L (12-78) Alkaline Phosphatase 98 U/L (46-116) 96 U/L (46-116) C-Reactive Protein, Quantitative 11.2 mg/dL (0.00-0.90) Total Protein 6.0 G/DL (6.4-8.2) 5.5 G/DL (6.4-8.2) Albumin 2.9 G/DL (3.4-5.0) 3.1 G/DL (3.4-5.0) Globulin 3.1 g/dL 2.4 g/dL Albumin/Globulin Ratio 0.9 (1.0-2.7) 1.3 (1.0-2.7) Amylase Level 864 U/L (25-115) 852 U/L (25-115) Lipase 9250 U/L (73-393) 9431 U/L (73-393) Anisocytosis 1+ Triglycerides Level 147 MG/DL (30-150) Cholesterol Level 98 MG/DL (< 200) LDL Cholesterol 48 mg/dL (<100) HDL Cholesterol 28 MG/DL (40-60) Cholesterol/HDL Ratio 3.5 (3.3-4.4) HIV (1&2) Antibody Rapid Negative (NEGATIVE) Test 07/03/19 04:10 White Blood Count 23.9 K/UL (4.8-10.8) Red Blood Count 2.97 M/UL (4.20-5.40) Hemoglobin 8.7 G/DL (12.0-16.0) Hematocrit 25.6 % (37.0-47.0) Mean Corpuscular Volume 86 FL (80-99) Mean Corpuscular Hemoglobin 29.2 PG (27.0-31.0) Mean Corpuscular Hemoglobin Concent 33.8 G/DL (32.0-36.0) Red Cell Distribution Width 12.1 % (11.6-14.8) Platelet Count 178 K/UL (150-450) Mean Platelet Volume 9.3 FL (6.5-10.1) Neutrophils (%) (Auto) % (45.0-75.0) Lymphocytes (%) (Auto) % (20.0-45.0) Monocytes (%) (Auto) % (1.0-10.0) Eosinophils (%) (Auto) % (0.0-3.0) Basophils (%) (Auto) % (0.0-2.0) Prothrombin Time 10.0 SEC (9.30-11.50) Prothromb Time International Ratio 0.9 (0.9-1.1) Sodium Level 136 MMOL/L (136-145) Potassium Level 3.6 MMOL/L (3.5-5.1) Chloride Level 101 MMOL/L (98-107) Carbon Dioxide Level 16 MMOL/L (21-32) Anion Gap 20 mmol/L (5-15) Blood Urea Nitrogen 104 mg/dL (7-18) Creatinine 4.8 MG/DL (0.55-1.30) Estimat Glomerular Filtration Rate 10.3 mL/min (>60) Glucose Level 132 MG/DL (74-106) Calcium Level 8.6 MG/DL (8.5-10.1) Total Bilirubin 1.2 MG/DL (0.2-1.0) Direct Bilirubin 0.4 MG/DL (0.0-0.3) Aspartate Amino Transf (AST/SGOT) 52 U/L (15-37) Alanine Aminotransferase (ALT/SGPT) 73 U/L (12-78) Alkaline Phosphatase 87 U/L (46-116) Total Protein 6.1 G/DL (6.4-8.2) Albumin 3.1 G/DL (3.4-5.0) Globulin 3.0 g/dL Albumin/Globulin Ratio 1.0 (1.0-2.7) Amylase Level 332 U/L (25-115) Lipase > 2000 U/L (73-393) Height (Feet): 5 Height (Inches): 4.00 Weight (Pounds): 115 Objective Physical Exam: Vitals: reviewed General: NAD, groans to pain stimuli HEENT: nc, at Neck: supple Chest: clear breath sounds bilaterally Cardiovascular: RRR, no s3, s4 Abdomen: soft, nontender, nd Extremities: no cce, normal range of motion Neuro: alert and oriented Skin: other - pressure sores to right side Bola Aldridge MD Jul 03, 2019 06:39
--- NOTE | 2019-07-03 07:13 | Pulmonology Progress Note ---
Assessment/Plan Assessment/Plan IMPRESSION: 1. Extensive left lung pneumonia. Latest CXR shows significant clearing 2. Pulmonary edema. 3. Respiratory failure; now off BiPAP DISCUSSION: Continue broad-spectrum antibiotics. Dialysis per renal Use BiPAP prn. Supplemental O2. I will follow carefully. Abrahan Samaniego M.D. Subjective Interval Events: Continues to have significant leucocytosis Constitutional: Reports: no symptoms HEENT: Repors: no symptoms Respiratory: Reports: no symptoms Cardiovascular: Reports: no symptoms Gastrointestinal/Abdominal: Reports: no symptoms Allergies: Coded Allergies: No Known Allergies (Unverified , 06/24/19) Objective Last 24 Hour Vital Signs Date Time Temp Pulse Resp B/P (MAP) Pulse Ox O2 Delivery O2 Flow Rate FiO2 07/03/19 05:17 98.0 07/03/19 04:00 2.0 07/03/19 04:00 98.0 95 18 122/55 (77) 98 07/03/19 04:00 Nasal Cannula 2.0 Nasal Cannula 2.0 Nasal Cannula 2.0 07/03/19 03:32 86 07/03/19 02:05 111 117/48 (71) 07/03/19 00:00 2.0 07/03/19 00:00 98.2 102 18 95/63 (74) 97 07/03/19 00:00 Nasal Cannula 2.0 Nasal Cannula 2.0 Nasal Cannula 2.0 07/02/19 23:28 88 07/02/19 22:15 94 112/58 (76) 07/02/19 21:00 103 95/69 (78) 07/02/19 20:38 91 18 97 Nasal Cannula 2.0 28 07/02/19 20:38 97 Nasal Cannula 2.0 28 07/02/19 20:00 Nasal Cannula 2.0 Nasal Cannula 2.0 Nasal Cannula 2.0 07/02/19 20:00 98.0 98 18 138/79 (98) 96 07/02/19 20:00 2.0 07/02/19 19:31 107 07/02/19 16:00 Nasal Cannula 2.0 Nasal Cannula 2.0 Nasal Cannula 2.0 07/02/19 16:00 2.0 07/02/19 16:00 98.8 95 18 106/50 (68) 96 07/02/19 15:31 97 07/02/19 12:00 Nasal Cannula 2.0 Nasal Cannula 2.0 Nasal Cannula 2.0 07/02/19 12:00 2.0 07/02/19 12:00 97.9 106 16 120/71 (87) 97 07/02/19 11:33 107 07/02/19 09:47 97.6 07/02/19 08:18 97 Nasal Cannula 2.0 28 07/02/19 08:18 95 18 97 Nasal Cannula 2.0 28 07/02/19 08:00 2.0 07/02/19 08:00 Nasal Cannula 2.0 Nasal Cannula 2.0 Nasal Cannula 2.0 07/02/19 08:00 98.4 86 17 127/69 (88) 95 07/02/19 07:51 101 Intake and Output 07/02/19 07/03/19 19:00 07:00 Intake Total 630 ml 880 ml Output Total 105 ml Balance 630 ml 775 ml Free Water 150 ml 100 ml IV Total 300 ml Tube Feeding 480 ml 480 ml Output Urine Total 105 ml # Bowel Movements 1 General Appearance: no acute distress HEENT: normocephalic Respiratory/Chest: chest wall non-tender Cardiovascular: normal peripheral pulses Abdomen: normal bowel sounds Microbiology Date/Time Source Procedure Growth Status 06/30/19 18:00 Stool Clostridium difficile Toxin Assay - Final Complete Laboratory Tests 07/02/19 21:35: Carcinoembryonic Antigen [Pending], CA 19-9 Antigen [Pending], Hepatitis A IgM Antibody [Pending], Hepatitis B Surface Antigen [Pending], Hepatitis B Core IgM Antibody [Pending], Hepatitis C Antibody [Pending], HIV (1&2) Antibody Rapid Negative 07/03/19 04:10: White Blood Count 23.9*H, Red Blood Count 2.97L, Hemoglobin 8.7L, Hematocrit 25.6L, Mean Corpuscular Volume 86, Mean Corpuscular Hemoglobin 29.2, Mean Corpuscular Hemoglobin Concent 33.8, Red Cell Distribution Width 12.1, Platelet Count 178, Mean Platelet Volume 9.3, Neutrophils (%) (Auto) , Lymphocytes (%) ( Auto) , Monocytes (%) (Auto) , Eosinophils (%) (Auto) , Basophils (%) (Auto) , Neutrophils % (Manual) [Pending], Lymphocytes % (Manual) [Pending], Platelet Estimate [Pending], Platelet Morphology [Pending], Prothrombin Time 10.0, Prothromb Time International Ratio 0.9, Sodium Level 136, Potassium Level 3.6, Chloride Level 101, Carbon Dioxide Level 16L, Anion Gap 20H, Blood Urea Nitrogen 104H, Creatinine 4.8H, Estimat Glomerular Filtration Rate 10.3, Glucose Level 132H, Calcium Level 8.6, Total Bilirubin 1.2H, Direct Bilirubin 0.4H, Aspartate Amino Transf (AST/SGOT) 52H, Alanine Aminotransferase (ALT/SGPT ) 73, Alkaline Phosphatase 87, Total Protein 6.1L, Albumin 3.1L, Globulin 3.0, Albumin/Globulin Ratio 1.0, Amylase Level 332H, Lipase > 2000H Current Medications Medications (Trade) Dose Ordered Sig/Joan Route PRN Reason Start Time Stop Time Status Last Admin Dose Admin Acetaminophen (Tylenol) 650 mg Q4H PRN NG Mild Pain/Temp > 100.5 07/02/19 12:30 08/01/19 12:29 Acetylcysteine (Mucomyst) 100 mg Q4HRT PRN HHN Shortness of Breath 06/25/19 23:45 07/25/19 22:59 Albumin Human 100 ml @ 100 mls/hr NEEDED PRN IV DIALYSIS 06/27/19 14:00 07/27/19 13:59 Barium Sulfate (Readi-Cat 2) 450 ml NOW PRN ORAL Radiology Procedure 07/01/19 08:30 07/03/19 08:17 07/01/19 15:58 Chlorhexidine Gluconate (Cari-Hex 2%) 1 applic DAILY@2000 TOPIC 06/26/19 20:00 07/26/19 19:59 07/02/19 20:37 Dextrose (Dextrose 50%) 25 ml Q30M PRN IV Hypoglycemia 06/24/19 19:52 07/24/19 19:51 Dextrose (Dextrose 50%) 50 ml Q30M PRN IV Hypoglycemia 06/24/19 19:52 07/24/19 19:51 Diphenhydramine HCl (Benadryl) 25 mg Q6H PRN ORAL Itching/Pruritis 06/24/19 19:52 07/24/19 19:51 07/02/19 12:11 Furosemide (Lasix) 40 mg DAILY IV 06/30/19 20:00 07/30/19 19:59 07/02/19 09:18 Gabapentin (Neurontin) 300 mg BID GT 07/02/19 18:00 08/01/19 17:59 07/02/19 18:31 Hydromorphone HCl (Dilaudid) 0.5 mg Q2H PRN IVP Severe Pain (Pain Scale 7-10) 07/02/19 12:30 07/09/19 12:29 07/03/19 04:47 Iohexol (OMNIPAQUE-300 100ml) 100 ml NOW PRN INJ Radiology Procedure 07/01/19 08:30 07/03/19 08:17 Linezolid 300 ml @ 300 mls/hr EVERY 12 HOURS IVPB 06/30/19 21:00 07/07/19 20:59 07/02/19 20:37 Meropenem 500 mg/ Sodium Chloride 50 ml @ 100 mls/hr Q24HRS IVPB 06/30/19 17:00 07/05/19 16:59 07/01/19 18:08 Ondansetron HCl (Zofran) 4 mg Q6H PRN IVP Nausea & Vomiting 06/24/19 19:52 07/24/19 19:51 Pantoprazole (Protonix) 40 mg DAILY IVP 06/30/19 09:00 07/30/19 08:59 07/02/19 09:00 Abrahan Samaniego MD Jul 03, 2019 07:13
[2019-07-03] MEDS: Gabapentin 300 MG/6 ML Soln GT SCH ×2 (08:54→17:46)
[2019-07-03] MEDS: Pantoprazole Inj IVP SCH (08:54)
--- NOTE | 2019-07-03 09:49 | Cardiology Progress Note ---
Assessment/Plan Status: stable Assessment/Plan Assessment/Plan Status: stable Assessment/Plan: Assessment Elevated troponin Syncope. Elevated LFT KAREN/CKD Rhabdomyolysis Plan d/c Trend troponin Monitor on telemetry Echocardiogram reviewed Stress test prior to discharge Hold heparin PEG tube placement - clear to proceed Maintain HD Abx per ID/pulm Pulmonary toilet Supportive care Subjective Cardiovascular: Reports: no symptoms Respiratory: Reports: no symptoms Gastrointestinal/Abdominal: Reports: no symptoms Genitourinary: Reports: no symptoms Subjective No distress, on roon air, no fevers, BP elevated, creatinine mildly improved, WBC elevated. family deciding on PEG Objective Last 24 Hour Vital Signs Date Time Temp Pulse Resp B/P (MAP) Pulse Ox O2 Delivery O2 Flow Rate FiO2 07/03/19 08:00 98.8 95 19 121/52 (75) 97 07/03/19 08:00 2.0 07/03/19 08:00 Nasal Cannula 2.0 Nasal Cannula 2.0 Nasal Cannula 2.0 07/03/19 07:46 116 07/03/19 05:17 98.0 07/03/19 04:00 2.0 07/03/19 04:00 98.0 95 18 122/55 (77) 98 07/03/19 04:00 Nasal Cannula 2.0 Nasal Cannula 2.0 Nasal Cannula 2.0 07/03/19 03:32 86 07/03/19 02:05 111 117/48 (71) 07/03/19 00:00 2.0 07/03/19 00:00 98.2 102 18 95/63 (74) 97 07/03/19 00:00 Nasal Cannula 2.0 Nasal Cannula 2.0 Nasal Cannula 2.0 07/02/19 23:28 88 07/02/19 22:15 94 112/58 (76) 07/02/19 21:00 103 95/69 (78) 07/02/19 20:38 91 18 97 Nasal Cannula 2.0 28 07/02/19 20:38 97 Nasal Cannula 2.0 28 07/02/19 20:00 Nasal Cannula 2.0 Nasal Cannula 2.0 Nasal Cannula 2.0 07/02/19 20:00 98.0 98 18 138/79 (98) 96 07/02/19 20:00 2.0 07/02/19 19:31 107 07/02/19 16:00 Nasal Cannula 2.0 Nasal Cannula 2.0 Nasal Cannula 2.0 07/02/19 16:00 2.0 07/02/19 16:00 98.8 95 18 106/50 (68) 96 07/02/19 15:31 97 07/02/19 12:00 Nasal Cannula 2.0 Nasal Cannula 2.0 Nasal Cannula 2.0 07/02/19 12:00 2.0 07/02/19 12:00 97.9 106 16 120/71 (87) 97 07/02/19 11:33 107 General Appearance: no apparent distress, alert EENT: PERRL/EOMI, normal ENT inspection, TMs normal, pharynx normal Neck: non-tender, normal alignment, supple, normal inspection, no JVD Rhythm: NSR Cardiovascular: normal peripheral pulses, normal rate, regular rhythm Respiratory/Chest: chest wall non-tender, lungs clear, normal breath sounds, no respiratory distress, no accessory muscle use Abdomen: normal bowel sounds, non tender, soft, no organomegaly, no mass Extremities: normal range of motion, non-tender, normal inspection, no calf tenderness, no swelling 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8) *H Red Blood Count 2.97 M/UL (4.20-5.40) L Hemoglobin 8.7 G/DL (12.0-16.0) L Hematocrit 25.6 % (37.0-47.0) L Mean Corpuscular Volume 86 FL (80-99) Mean Corpuscular Hemoglobin 29.2 PG (27.0-31.0) Mean Corpuscular Hemoglobin Concent 33.8 G/DL (32.0-36.0) Red Cell Distribution Width 12.1 % (11.6-14.8) Platelet Count 178 K/UL (150-450) Mean Platelet Volume 9.3 FL (6.5-10.1) Neutrophils (%) (Auto) % (45.0-75.0) Lymphocytes (%) (Auto) % (20.0-45.0) Monocytes (%) (Auto) % (1.0-10.0) Eosinophils (%) (Auto) % (0.0-3.0) Basophils (%) (Auto) % (0.0-2.0) Neutrophils % (Manual) Pending Lymphocytes % (Manual) Pending Platelet Estimate Pending Platelet Morphology Pending Prothrombin Time 10.0 SEC (9.30-11.50) Prothromb Time International Ratio 0.9 (0.9-1.1) Sodium Level 136 MMOL/L (136-145) Potassium Level 3.6 MMOL/L (3.5-5.1) Chloride Level 101 MMOL/L (98-107) Carbon Dioxide Level 16 MMOL/L (21-32) L Anion Gap 20 mmol/L (5-15) H Blood Urea Nitrogen 104 mg/dL (7-18) H Creatinine 4.8 MG/DL (0.55-1.30) H Estimat Glomerular Filtration Rate 10.3 mL/min (>60) Glucose Level 132 MG/DL (74-106) H Calcium Level 8.6 MG/DL (8.5-10.1) Total Bilirubin 1.2 MG/DL (0.2-1.0) H Direct Bilirubin 0.4 MG/DL (0.0-0.3) H Aspartate Amino Transf (AST/SGOT) 52 U/L (15-37) H Alanine Aminotransferase (ALT/SGPT) 73 U/L (12-78) Alkaline Phosphatase 87 U/L (46-116) Total Protein 6.1 G/DL (6.4-8.2) L Albumin 3.1 G/DL (3.4-5.0) L Globulin 3.0 g/dL Albumin/Globulin Ratio 1.0 (1.0-2.7) Amylase Level 332 U/L (25-115) H Lipase > 2000 U/L (73-393) H Microbiology Date/Time Source Procedure Growth Status 06/30/19 18:00 Stool Clostridium difficile Toxin Assay - Final Complete IsmaelsoMelchor perdomo MD Jul 03, 2019 09:49
--- NOTE | 2019-07-03 10:19 | General Progress Note ---
Assessment/Plan Problem List: (1) KAREN (acute kidney injury) ICD Codes: N17.9 - Acute kidney failure, unspecified SNOMED: 7613399, [id number] (2) Altered level of consciousness ICD Codes: R40.4 - Transient alteration of awareness SNOMED: 6458271 Status: stable Assessment/Plan: dysphagia elevated LFTS pancreatitis based on elevated lipase fatty liver ESRD pancreatic cyst anemia stool ob positive s/p NGT placement NGTF repeat labs abx per ID PEG when more stable, possibly on Monday, spoke with the family CT reviewed s/p one unit PRBC improving LFTS and lipase Subjective ROS Limited/Unobtainable: No Allergies: Coded Allergies: No Known Allergies (Unverified , 06/24/19) Objective Last 24 Hour Vital Signs Date Time Temp Pulse Resp B/P (MAP) Pulse Ox O2 Delivery O2 Flow Rate FiO2 07/03/19 08:00 98.8 95 19 121/52 (75) 97 07/03/19 08:00 2.0 07/03/19 08:00 Nasal Cannula 2.0 Nasal Cannula 2.0 Nasal Cannula 2.0 07/03/19 07:46 116 07/03/19 05:17 98.0 07/03/19 04:00 2.0 07/03/19 04:00 98.0 95 18 122/55 (77) 98 07/03/19 04:00 Nasal Cannula 2.0 Nasal Cannula 2.0 Nasal Cannula 2.0 07/03/19 03:32 86 07/03/19 02:05 111 117/48 (71) 07/03/19 00:00 2.0 07/03/19 00:00 98.2 102 18 95/63 (74) 97 07/03/19 00:00 Nasal Cannula 2.0 Nasal Cannula 2.0 Nasal Cannula 2.0 07/02/19 23:28 88 07/02/19 22:15 94 112/58 (76) 07/02/19 21:00 103 95/69 (78) 07/02/19 20:38 91 18 97 Nasal Cannula 2.0 28 07/02/19 20:38 97 Nasal Cannula 2.0 28 07/02/19 20:00 Nasal Cannula 2.0 Nasal Cannula 2.0 Nasal Cannula 2.0 07/02/19 20:00 98.0 98 18 138/79 (98) 96 07/02/19 20:00 2.0 07/02/19 19:31 107 07/02/19 16:00 Nasal Cannula 2.0 Nasal Cannula 2.0 Nasal Cannula 2.0 07/02/19 16:00 2.0 07/02/19 16:00 98.8 95 18 106/50 (68) 96 07/02/19 15:31 97 07/02/19 12:00 Nasal Cannula 2.0 Nasal Cannula 2.0 Nasal Cannula 2.0 07/02/19 12:00 2.0 07/02/19 12:00 97.9 106 16 120/71 (87) 97 07/02/19 11:33 107 Intake and Output 07/02/19 07/03/19 19:00 07:00 Intake Total 630 ml 880 ml Output Total 105 ml Balance 630 ml 775 ml Free Water 150 ml 100 ml IV Total 300 ml Tube Feeding 480 ml 480 ml Output Urine Total 105 ml # Bowel Movements 1 Laboratory Tests 07/02/19 21:35: Carcinoembryonic Antigen [Pending], CA 19-9 Antigen [Pending], Hepatitis A IgM Antibody [Pending], Hepatitis B Surface Antigen [Pending], Hepatitis B Core IgM Antibody [Pending], Hepatitis C Antibody [Pending], HIV (1&2) Antibody Rapid Negative 07/03/19 04:10: White Blood Count 23.9*H, Red Blood Count 2.97L, Hemoglobin 8.7L, Hematocrit 25.6L, Mean Corpuscular Volume 86, Mean Corpuscular Hemoglobin 29.2, Mean Corpuscular Hemoglobin Concent 33.8, Red Cell Distribution Width 12.1, Platelet Count 178, Mean Platelet Volume 9.3, Neutrophils (%) (Auto) , Lymphocytes (%) ( Auto) , Monocytes (%) (Auto) , Eosinophils (%) (Auto) , Basophils (%) (Auto) , Differential Total Cells Counted 100, Neutrophils % (Manual) 81H, Lymphocytes % (Manual) 12L, Monocytes % (Manual) 6, Eosinophils % (Manual) 1, Basophils % ( Manual) 0, Band Neutrophils 0, Platelet Estimate Adequate, Platelet Morphology Normal, Hypochromasia 1+, Prothrombin Time 10.0, Prothromb Time International Ratio 0.9, Sodium Level 136, Potassium Level 3.6, Chloride Level 101, Carbon Dioxide Level 16L, Anion Gap 20H, Blood Urea Nitrogen 104H, Creatinine 4.8H, Estimat Glomerular Filtration Rate 10.3, Glucose Level 132H, Calcium Level 8.6, Total Bilirubin 1.2H, Direct Bilirubin 0.4H, Aspartate Amino Transf (AST/SGOT) 52H, Alanine Aminotransferase (ALT/SGPT) 73, Alkaline Phosphatase 87, Total Protein 6.1L, Albumin 3.1L, Globulin 3.0, Albumin/Globulin Ratio 1.0, Amylase Level 332H, Lipase > 2000H Height (Feet): 5 Height (Inches): 4.00 Weight (Pounds): 115 General Appearance: lethargic EENT: normal ENT inspection Neck: supple Cardiovascular: normal rate Respiratory/Chest: decreased breath sounds Abdomen: normal bowel sounds, non tender, soft Extremities: non-tender Jun Mena MD Jul 03, 2019 10:19
--- NOTE | 2019-07-03 11:21 | General Progress Note ---
Assessment/Plan Status: stable Assessment/Plan: #Rhabdomyolosis #KAREN #Acute renal failure - on HD UF #Uremic encephalopathy #Anion gap metabolic acidosis #Lactic acidosis -resolved -Nephrology following: no IVF, HD UF per nephro #Left lung PNA - likely aspiration #Acute hypoxic respiratory failure s/p BiPAP - improved #Strep Viridans bacteremia #Worsening Leukocytosis #loose stools Noted to be acutely hypoxic on early AM of 06/25 -s/p BiPAP -> NC/room air intermittently -CT chest, CXR with left lung infiltrate. -ABG prn. -Pulmonology following -echo negative for vegetations -CXR 06/28: Bilateral interstitial thickening and patchy airspace opacities in the left lung, similar to prior study given differences in technique. -ID following - Now on Zyvox and meropenem -Stool C. diff negative,oral vanco stopped #Dysphagia -NGT for feeding for now -Possible PEG on Monday #L1 vertebral fracture - likely old seen on imaging, likely old. -reassurance provided to family. #Transaminitis #Acute pancreatitis ?from dehydration, abd exam benign. -continue to trend LFT's, numbers improving -GI following #Type 2 NSTEMI likely demand in setting of renal failure. EKG wnl. -no need to trend. -cardiology consulted - pt will need stress test prior to d/c #Pressure wounds. -General surgery consulted for wound care, central line insertion on 06/24 -Cont. wound care and offloading Time spent: 36 mins, >50% on coordination of care and chart review. Subjective Date patient seen: Jul 03, 2019 Time patient seen: 10:00 ROS Limited/Unobtainable: Yes Allergies: Coded Allergies: No Known Allergies (Unverified , 06/24/19) Subjective Follow up for KAREN, acute pancreatitis, rhabdo. Patient semi-alert, nonverbal No family at bedside today Objective Last 24 Hour Vital Signs Date Time Temp Pulse Resp B/P (MAP) Pulse Ox O2 Delivery O2 Flow Rate FiO2 07/03/19 08:00 98.8 95 19 121/52 (75) 97 07/03/19 08:00 2.0 07/03/19 08:00 Nasal Cannula 2.0 Nasal Cannula 2.0 Nasal Cannula 2.0 07/03/19 07:46 116 3/11/20 05:17 98.0 07/03/19 04:00 2.0 07/03/19 04:00 98.0 95 18 122/55 (77) 98 07/03/19 04:00 Nasal Cannula 2.0 Nasal Cannula 2.0 Nasal Cannula 2.0 07/03/19 03:32 86 07/03/19 02:05 111 117/48 (71) 07/03/19 00:00 2.0 07/03/19 00:00 98.2 102 18 95/63 (74) 97 07/03/19 00:00 Nasal Cannula 2.0 Nasal Cannula 2.0 Nasal Cannula 2.0 07/02/19 23:28 88 07/02/19 22:15 94 112/58 (76) 07/02/19 21:00 103 95/69 (78) 07/02/19 20:38 91 18 97 Nasal Cannula 2.0 28 07/02/19 20:38 97 Nasal Cannula 2.0 28 07/02/19 20:00 Nasal Cannula 2.0 Nasal Cannula 2.0 Nasal Cannula 2.0 07/02/19 20:00 98.0 98 18 138/79 (98) 96 07/02/19 20:00 2.0 07/02/19 19:31 107 07/02/19 16:00 Nasal Cannula 2.0 Nasal Cannula 2.0 Nasal Cannula 2.0 07/02/19 16:00 2.0 07/02/19 16:00 98.8 95 18 106/50 (68) 96 07/02/19 15:31 97 07/02/19 12:00 Nasal Cannula 2.0 Nasal Cannula 2.0 Nasal Cannula 2.0 07/02/19 12:00 2.0 07/02/19 12:00 97.9 106 16 120/71 (87) 97 07/02/19 11:33 107 Intake and Output 07/02/19 07/03/19 19:00 07:00 Intake Total 630 ml 880 ml Output Total 105 ml Balance 630 ml 775 ml Free Water 150 ml 100 ml IV Total 300 ml Tube Feeding 480 ml 480 ml Output Urine Total 105 ml # Bowel Movements 1 Laboratory Tests 07/02/19 21:35: Carcinoembryonic Antigen [Pending], CA 19-9 Antigen [Pending], Hepatitis A IgM Antibody [Pending], Hepatitis B Surface Antigen [Pending], Hepatitis B Core IgM Antibody [Pending], Hepatitis C Antibody [Pending], HIV (1&2) Antibody Rapid Negative 07/03/19 04:10: White Blood Count 23.9*H, Red Blood Count 2.97L, Hemoglobin 8.7L, Hematocrit 25.6L, Mean Corpuscular Volume 86, Mean Corpuscular Hemoglobin 29.2, Mean Corpuscular Hemoglobin Concent 33.8, Red Cell Distribution Width 12.1, Platelet Count 178, Mean Platelet Volume 9.3, Neutrophils (%) (Auto) , Lymphocytes (%) ( Auto) , Monocytes (%) (Auto) , Eosinophils (%) (Auto) , Basophils (%) (Auto) , Differential Total Cells Counted 100, Neutrophils % (Manual) 81H, Lymphocytes % (Manual) 12L, Monocytes % (Manual) 6, Eosinophils % (Manual) 1, Basophils % ( Manual) 0, Band Neutrophils 0, Platelet Estimate Adequate, Platelet Morphology Normal, Hypochromasia 1+, Prothrombin Time 10.0, Prothromb Time International Ratio 0.9, Sodium Level 136, Potassium Level 3.6, Chloride Level 101, Carbon Dioxide Level 16L, Anion Gap 20H, Blood Urea Nitrogen 104H, Creatinine 4.8H, Estimat Glomerular Filtration Rate 10.3, Glucose Level 132H, Calcium Level 8.6, Total Bilirubin 1.2H, Direct Bilirubin 0.4H, Aspartate Amino Transf (AST/SGOT) 52H, Alanine Aminotransferase (ALT/SGPT) 73, Alkaline Phosphatase 87, Total Protein 6.1L, Albumin 3.1L, Globulin 3.0, Albumin/Globulin Ratio 1.0, Amylase Level 332H, Lipase > 2000H Height (Feet): 5 Height (Inches): 4.00 Weight (Pounds): 115 General Appearance: lethargic, confused Neck: normal alignment, supple Cardiovascular: normal rate, regular rhythm Respiratory/Chest: lungs clear, normal breath sounds Abdomen: non tender, soft Oumar Foy MD Jul 03, 2019 11:21
--- NOTE | 2019-07-03 12:31 | Nephrology Progress Note ---
Assessment/Plan Plan #acute renal failure on possible CKD- due to rhabdo- UA with + RBC- concerns for developing ATN #Uremia #complete opacification of the left hemithorax- likely aspiration pneumonia #lactic acidosis #Hypernatremia- improved #AMS #elevated liver enzyme - HD today - assess need for HD daily - no IVF - continue lasix 40 IV daily - pulmonary eval - on room air now - renal US-> No obstructive nephropathy. - monitor liver enzymes adn lipase - Gi eval - continue with abx per ID - cardiology eval noted - stress test prior to DC #FULLCODE for now Subjective Subjective plan for HD today 150 cc of urine documented today moaning in pain today lipase over 1999 BP stable on NC CT chest: Extensive airspace consolidation in the left lung involving the left perihilar, upper lobe and left lower lobe. Findings suspicious for pneumonia, especially aspiration given the abrupt onset. Please correlate clinically. Partial atelectasis of the left lower lobe also noted Objective Objective Last 24 Hour Vital Signs Date Time Temp Pulse Resp B/P (MAP) Pulse Ox O2 Delivery O2 Flow Rate FiO2 07/03/19 12:00 Nasal Cannula 2.0 Nasal Cannula 2.0 Nasal Cannula 2.0 07/03/19 12:00 2.0 07/03/19 08:00 98.8 95 19 121/52 (75) 97 07/03/19 08:00 2.0 07/03/19 08:00 Nasal Cannula 2.0 Nasal Cannula 2.0 Nasal Cannula 2.0 07/03/19 07:46 116 07/03/19 05:17 98.0 07/03/19 04:00 2.0 07/03/19 04:00 98.0 95 18 122/55 (77) 98 07/03/19 04:00 Nasal Cannula 2.0 Nasal Cannula 2.0 Nasal Cannula 2.0 07/03/19 03:32 86 07/03/19 02:05 111 117/48 (71) 07/03/19 00:00 2.0 07/03/19 00:00 98.2 102 18 95/63 (74) 97 07/03/19 00:00 Nasal Cannula 2.0 Nasal Cannula 2.0 Nasal Cannula 2.0 07/02/19 23:28 88 07/02/19 22:15 94 112/58 (76) 07/02/19 21:00 103 95/69 (78) 07/02/19 20:38 91 18 97 Nasal Cannula 2.0 28 07/02/19 20:38 97 Nasal Cannula 2.0 28 07/02/19 20:00 Nasal Cannula 2.0 Nasal Cannula 2.0 Nasal Cannula 2.0 07/02/19 20:00 98.0 98 18 138/79 (98) 96 07/02/19 20:00 2.0 07/02/19 19:31 107 07/02/19 16:00 Nasal Cannula 2.0 Nasal Cannula 2.0 Nasal Cannula 2.0 07/02/19 16:00 2.0 07/02/19 16:00 98.8 95 18 106/50 (68) 96 07/02/19 15:31 97 Intake and Output 07/02/19 07/03/19 19:00 07:00 Intake Total 630 ml 880 ml Output Total 105 ml Balance 630 ml 775 ml Free Water 150 ml 100 ml IV Total 300 ml Tube Feeding 480 ml 480 ml Output Urine Total 105 ml # Bowel Movements 1 Laboratory Tests 07/02/19 21:35: Carcinoembryonic Antigen [Pending], CA 19-9 Antigen [Pending], Hepatitis A IgM Antibody [Pending], Hepatitis B Surface Antigen [Pending], Hepatitis B Core IgM Antibody [Pending], Hepatitis C Antibody [Pending], HIV (1&2) Antibody Rapid Negative 07/03/19 04:10: White Blood Count 23.9*H, Red Blood Count 2.97L, Hemoglobin 8.7L, Hematocrit 25.6L, Mean Corpuscular Volume 86, Mean Corpuscular Hemoglobin 29.2, Mean Corpuscular Hemoglobin Concent 33.8, Red Cell Distribution Width 12.1, Platelet Count 178, Mean Platelet Volume 9.3, Neutrophils (%) (Auto) , Lymphocytes (%) ( Auto) , Monocytes (%) (Auto) , Eosinophils (%) (Auto) , Basophils (%) (Auto) , Differential Total Cells Counted 100, Neutrophils % (Manual) 81H, Lymphocytes % (Manual) 12L, Monocytes % (Manual) 6, Eosinophils % (Manual) 1, Basophils % ( Manual) 0, Band Neutrophils 0, Platelet Estimate Adequate, Platelet Morphology Normal, Hypochromasia 1+, Prothrombin Time 10.0, Prothromb Time International Ratio 0.9, Sodium Level 136, Potassium Level 3.6, Chloride Level 101, Carbon Dioxide Level 16L, Anion Gap 20H, Blood Urea Nitrogen 104H, Creatinine 4.8H, Estimat Glomerular Filtration Rate 10.3, Glucose Level 132H, Calcium Level 8.6, Total Bilirubin 1.2H, Direct Bilirubin 0.4H, Aspartate Amino Transf (AST/SGOT) 52H, Alanine Aminotransferase (ALT/SGPT) 73, Alkaline Phosphatase 87, Total Protein 6.1L, Albumin 3.1L, Globulin 3.0, Albumin/Globulin Ratio 1.0, Amylase Level 332H, Lipase > 2000H Height (Feet): 5 Height (Inches): 4.00 Weight (Pounds): 115 Objective General Appearance: lethargic, confused, on bipap Lines, tubes and drains: peripheral HEENT: normocephalic, atraumatic Neck: non-tender Respiratory/Chest: minimal breath sounds on the left Cardiovascular/Chest: normal peripheral pulses, normal rate, regular rhythm, regularly irregular Abdomen: non tender, soft Rory Oconnor M.D. Jul 03, 2019 12:31
[2019-07-03] MEDS ORDERED: NS 500ML ONE (14:49)
[2019-07-03] MEDS ORDERED: Tubing Blood Filter IV ONE (14:49)
[2019-07-03] MEDS ORDERED: NS 275ml ONE (14:49)
--- NOTE | 2019-07-03 15:25 | Surgery Progress Note ---
Surgery Progress Note Subjective Procedure Performed Left femoral temporary hemodialysis catheter insertion Additional Comments receiving HD family at bedside no acute events Objective Last 24 Hour Vital Signs Date Time Temp Pulse Resp B/P (MAP) Pulse Ox O2 Delivery O2 Flow Rate FiO2 07/03/19 12:00 Nasal Cannula 2.0 Nasal Cannula 2.0 Nasal Cannula 2.0 07/03/19 12:00 99.4 99 19 147/56 (86) 97 07/03/19 12:00 2.0 07/03/19 11:38 98 07/03/19 08:00 98.8 95 19 121/52 (75) 97 07/03/19 08:00 2.0 07/03/19 08:00 Nasal Cannula 2.0 Nasal Cannula 2.0 Nasal Cannula 2.0 07/03/19 07:46 116 07/03/19 05:17 98.0 07/03/19 04:00 2.0 07/03/19 04:00 98.0 95 18 122/55 (77) 98 07/03/19 04:00 Nasal Cannula 2.0 Nasal Cannula 2.0 Nasal Cannula 2.0 07/03/19 03:32 86 07/03/19 02:05 111 117/48 (71) 07/03/19 00:00 2.0 07/03/19 00:00 98.2 102 18 95/63 (74) 97 07/03/19 00:00 Nasal Cannula 2.0 Nasal Cannula 2.0 Nasal Cannula 2.0 07/02/19 23:28 88 07/02/19 22:15 94 112/58 (76) 07/02/19 21:00 103 95/69 (78) 07/02/19 20:38 91 18 97 Nasal Cannula 2.0 28 07/02/19 20:38 97 Nasal Cannula 2.0 28 07/02/19 20:00 Nasal Cannula 2.0 Nasal Cannula 2.0 Nasal Cannula 2.0 07/02/19 20:00 98.0 98 18 138/79 (98) 96 07/02/19 20:00 2.0 07/02/19 19:31 107 07/02/19 16:00 Nasal Cannula 2.0 Nasal Cannula 2.0 Nasal Cannula 2.0 07/02/19 16:00 2.0 07/02/19 16:00 98.8 95 18 106/50 (68) 96 07/02/19 15:31 97 I&O Intake and Output 07/02/19 07/03/19 19:00 07:00 Intake Total 630 ml 880 ml Output Total 105 ml Balance 630 ml 775 ml Free Water 150 ml 100 ml IV Total 300 ml Tube Feeding 480 ml 480 ml Output Urine Total 105 ml # Bowel Movements 1 Dressing: other Wound: other Drains: other Cardiovascular: RSR Respiratory: decreased breath sounds Abdomen: soft, present bowel sounds Extremities: no cyanosis Laboratory Tests Test 07/02/19 21:35 07/03/19 04:10 Carcinoembryonic Antigen Pending CA 19-9 Antigen Pending Hepatitis A IgM Antibody Pending Hepatitis B Surface Antigen Pending Hepatitis B Core IgM Antibody Pending Hepatitis C Antibody Pending HIV (1&2) Antibody Rapid Negative (NEGATIVE) White Blood Count 23.9 K/UL (4.8-10.8) *H Red Blood Count 2.97 M/UL (4.20-5.40) L Hemoglobin 8.7 G/DL (12.0-16.0) L Hematocrit 25.6 % (37.0-47.0) L Mean Corpuscular Volume 86 FL (80-99) Mean Corpuscular Hemoglobin 29.2 PG (27.0-31.0) Mean Corpuscular Hemoglobin Concent 33.8 G/DL (32.0-36.0) Red Cell Distribution Width 12.1 % (11.6-14.8) Platelet Count 178 K/UL (150-450) Mean Platelet Volume 9.3 FL (6.5-10.1) Neutrophils (%) (Auto) % (45.0-75.0) Lymphocytes (%) (Auto) % (20.0-45.0) Monocytes (%) (Auto) % (1.0-10.0) Eosinophils (%) (Auto) % (0.0-3.0) Basophils (%) (Auto) % (0.0-2.0) Differential Total Cells Counted 100 Neutrophils % (Manual) 81 % (45-75) H Lymphocytes % (Manual) 12 % (20-45) L Monocytes % (Manual) 6 % (1-10) Eosinophils % (Manual) 1 % (0-3) Basophils % (Manual) 0 % (0-2) Band Neutrophils 0 % (0-8) Platelet Estimate Adequate Platelet Morphology Normal Hypochromasia 1+ Prothrombin Time 10.0 SEC (9.30-11.50) Prothromb Time International Ratio 0.9 (0.9-1.1) Sodium Level 136 MMOL/L (136-145) Potassium Level 3.6 MMOL/L (3.5-5.1) Chloride Level 101 MMOL/L (98-107) Carbon Dioxide Level 16 MMOL/L (21-32) L Anion Gap 20 mmol/L (5-15) H Blood Urea Nitrogen 104 mg/dL (7-18) H Creatinine 4.8 MG/DL (0.55-1.30) H Estimat Glomerular Filtration Rate 10.3 mL/min (>60) Glucose Level 132 MG/DL (74-106) H Calcium Level 8.6 MG/DL (8.5-10.1) Total Bilirubin 1.2 MG/DL (0.2-1.0) H Direct Bilirubin 0.4 MG/DL (0.0-0.3) H Aspartate Amino Transf (AST/SGOT) 52 U/L (15-37) H Alanine Aminotransferase (ALT/SGPT) 73 U/L (12-78) Alkaline Phosphatase 87 U/L (46-116) Total Protein 6.1 G/DL (6.4-8.2) L Albumin 3.2 G/DL (3.4-5.0) L Globulin 3.0 g/dL Albumin/Globulin Ratio 1.0 (1.0-2.7) Amylase Level 332 U/L (25-115) H Lipase > 2000 U/L (73-393) H Plan Problems: (1) Fall Assessment & Plan: 88 year old female s/p fall now with renal insufficiency requiring HD spoke with family. she has known CKD multiple decubitus ulcers from being down malnutrition line placed see documentation trend labs abx HD thank you prognosis guarded family at bedside cxr noted pna worsening DAILY ESTIMATED NEEDS: Needs based on Wounds, 51.8kg 30-35 kcals/kg 0624-0482 total kcals 1.25-1.5 g protein/kg 65-78 g total protein 25-30ml/kcal mL/kg 0399-3536 total fluid mLs NUTRITION DIAGNOSIS: * Increased kcal and pro needs r/t wound healing and renal failure as evidenced by, s/p fall w/ pressure wounds per MD, refer to WC eval, ARF needing HD. * Swallowing difficulty R/T dysphagia as evidenced by s/p NGT placement, plan for PEG placement w/ consent and medical clearance, TF held for possible pancreatitis. CURRENT TF:NPO- TF HELD FOR POSSIBLE PANCREATITIS ENTERAL NUTRITION RECOMMENDATIONS: NEPRO @36ml/hr x24 hrs to provide 864ml, 1555 kcal, 70g pro, 628ml free H2O free H2O - As medically appropriate, resume TF - Start @16ml/hr for 8 hrs, advance as tolerated 5ml/hr q4-6 hrs to goal. - Flush per MD/ HOB Over 30 degrees - PT AT HIGH RISK FOR REFEEDING SYNDROME, MONITOR LYTES DAILY, REPLETE NEEDED ADDITIONAL RECOMMENDATIONS: 1) Monitor ability to resume TF NGT feeds held 06/30 for possible pancreatitis. If unable to feed via GI, consider initiating TPN due to proloned NPO, minimal intake status 2) WOUND CARE: W/ active TF order add VASQUEZ in 4oz H2O BID 3) Rec added dextrose when NPO 4) Calibrated bed scale wts daily 5) Monitor lytes closely w/ TF- high risk for refeeding syndrome (2) Altered level of consciousness (3) Fracture of lumbar spine Assessment & Plan: Lungs: There is increased density at the lung bases likely atelectasis. Aorta is moderately calcified. There is a small hiatal hernia.. Liver: Grossly unremarkable. There is artifact limiting evaluation in addition to the fact that no IV or oral contrast was given for this examination. Gallbladder/biliary system: Grossly unremarkable. Spleen: Unremarkable Pancreas: In the area of the pancreatic tail there is a 1.6 cm nodular density which may be cystic. Further evaluation is recommended. Kidneys/Bladder: Vascular calcifications are quite extensive and extend to the hilum of both kidneys. Evaluation for punctate nonobstructive stones is limited in this setting but no definite stones seen. There is no hydronephrosis. Extensive breathing motion limiting evaluation.. Adrenal glands: Unremarkable Bowel: Patient's prior partial bowel resection in the right lower abdomen with anastomotic sutures noted. There is no evidence of a bowel obstruction or inflammatory changes. Appendix is not seen definitely but there are no signs of appendicitis. A few diverticula are noted within the colon. Aorta/IVC: There is a severe calcification of aorta and multiple branches of the aorta. Peritoneum: There is no free fluid. Bones: Bones are diffusely osteopenic. Multiple compression fracture deformities of several vertebra noted including lower thoracic vertebra and L1. There is narrowing of intervertebral discs and accompanying endplate osteophyte formation. Hypertrophied facet joints also demonstrated. Scoliosis of the lower thoracic spine convex to the right and left convex lumbar scoliosis noted. IMPRESSION: No acute findings appreciated. Study limited by the lack of intravenous oral contrast as well as extensive motion artifact. 1.6 cm probable cystic lesion in the pancreatic tail. This requires further evaluation with the contrast CT or MR. Status post previous partial bowel resection. 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 Degenerative changes as described above. (4) Rhabdomyolysis (5) KAREN (acute kidney injury) (6) Decubitus skin ulcer Assessment & Plan: Pt presented on admission with multiple pressure injuries. Pt's niece Sarah stated pt lives alone and found pt laying on her R side on floor in patient's home.Niece believes pt has been laying on floor for approx 5 days. DTPI noted to R cheek. Base of wound is purple with marginal erythema along borders.(L)1.2cm x (W)1.6cm. Unstageable pressure injury R shoulder. Base of wound is 100% necrotic with marginal erythema along borders.(L)4.8cm x (W).3.5cm . DTPI R humerus. Base of wound is fluctuant and maroon in colour with surrounding erythema. (L)10.6cm x (W)3.1cm. DTPI R elbow.Base of wound is indurated with scattered areas that are purple in colour. An area of fluctuance in center. Marginal erythema along borders.(L) 5.3cm x (W)10.4cm. Partially opened Sacral DTPI. Base of wound is purple with surrounding erythema. Partial open wound marco a cleft that is corby and moist.(L)5.3cm x (W) 4.5cm.NO odor or exudate noted. Non-blanching erythema periwound. DTPI L ischium . Base of wound is purple and indurated.(L)6cm x (W)7.5cm. Unstageable pressure injury R hip. Base of wound is 75% necrotic, 25% mixed erythema and slough. Borders are moist,soft with scattered areas that are black. Periwound is dusky and indurated.No odor or exudate noted. DTPI at posterior and medial aspect of L heel. Base of wound is maroon and fluctuant(L)4cm x (W)7cm. Unstageable pressure injury L Hallux. Base of wound is 100% necrotic but soft. Borders are erythematous. Periwound without induration or fluctuance.(L)2.5cm x (W)3cm. DTPI medial L malleolus. Base of wound fluctuant and maroon in colour.(L) 0.3cm x (W)1.2cm. DTPI medial L malleolus. Base of wound fluctuant and maroon in colour with Marginal erythema along borders.(L)0.3cm x (W)1.2cm. Intact blood filled blisters noted to L 1st Metatarsal laterally and head of metatarsal. Intact blood filled blisters noted to heads of L 2nd and L 3rd metatarsals. DTPI noted to posterior and lateral R Heel. Posterior R heel is maroon in colour and fluctuant at base. Laterally ,R heel is black and fluctuant at base.Periwound is boggy and non-blanchable.(L)7cm x (W)8cm. Unstageable pressure injury lateral R malleolus. Base of wound is 100% necrotic and dry.Marginal erythema along borders.Periwound is fluctuant and erythematous( L)1.2cm x (W)1.5cm. DTPI distal/lateral R foot. Base of wound is fluctuant and maroon in colour.(L) 1.3cm x (W)1.7cm. DTPI lateral R 5th metatarsal. Base of wound is maroon and fluctuant with marginal erythema along borders .(L)0.7cm x (W)1.1cm Tx.Plan: Cleanse Wound R shoulder with Saline. Apply Therahoney. Apply Cavilon Skin barrier periwound. Cover with Optifoam drsg every 3 days and prn. Cleanse R hip wound with Saline. Apply Therahoney with 4x4 Gauze. Apply Moisture Barrier Paste periwound.Cover with Optifoam drsg. Daily and prn. Apply Moisture Barrier Paste to Sacral wound and L Ischium. Cover each wound with Optifoam drsg every 3 days and prn. Apply Betadine to R humerus and R elbow . Cover each wound with Optifoam drsg. Change every 3 days and prn. Apply Betadine to wounds R heel, R malleolus and R foot . Cover each wound with Optifoam drsg every 3 days and prn. Apply Betadine to wounds L heel ,L medial malleolus and L foot. Cover each wound with Optifoam drsgs every 3 Days and prn. Air Fluidized Mattress. Reposition at least every 2hours or as tolerated. Place Pillow between knees. Off-load heels with pillow. Anshul Nava Jul 03, 2019 15:25
--- NOTE | 2019-07-03 17:18 | Infectious Diseases Prog Note ---
Assessment/Plan Assessment/Plan ASSESSMENT AND PLAN: 1. streptococcus viridans bacteremia, ? endocarditis, aspiration pna/hcap, atx, sepsis, leukocytosis, fevers, sob, arf, rhabdomyolysis c.diff. - negative, wounds noted, pancreatitis, elevated lft's - meropenem and zyvox - day # 4 combination - monitor labs and chest x-ray - TTE - no vegetation mentioned in report - f/u on cultures negative - CT and US noted, lft's better - continue treatment per primary and consultants - wound care per surgery - doubt sepsis source - clinically better, leukocytosis improving 2. Acute renal failure, crf - on hemodialysis 3. Rhabdomyolysis - per primary and renal medicine 4. Elevated LFTs. 5. CAD. 6. Non-STEMI. 7. No history of diabetes or hypertension. 8. Fall. 9. Altered level of consciousness. 10. Lumbar spine fracture. 11. No known drug allergies. 12. Social history is negative. 13. Family history is noncontributory. 14. MAR was noted. 15. Case was discussed with RN and family 16. Continue treatment per primary consultants. Subjective Constitutional: Denies: fever HEENT: Denies: congestion Respiratory: Denies: shortness of breath Cardiovascular: Denies: chest pain Gastrointestinal/Abdominal: Denies: nausea Neurologic: Denies: headache Psychiatric: Reports: other - NA Skin: Denies: rash Musculoskeletal: Denies: pain Allergies: Coded Allergies: No Known Allergies (Unverified , 06/24/19) Objective Vital Signs Last 24 Hour Vital Signs Date Time Temp Pulse Resp B/P (MAP) Pulse Ox O2 Delivery O2 Flow Rate FiO2 07/03/19 12:00 Nasal Cannula 2.0 Nasal Cannula 2.0 Nasal Cannula 2.0 07/03/19 12:00 99.4 99 19 147/56 (86) 97 07/03/19 12:00 2.0 07/03/19 11:38 98 07/03/19 08:00 98.8 95 19 121/52 (75) 97 07/03/19 08:00 2.0 07/03/19 08:00 Nasal Cannula 2.0 Nasal Cannula 2.0 Nasal Cannula 2.0 07/03/19 07:46 116 07/03/19 05:17 98.0 07/03/19 04:00 2.0 07/03/19 04:00 98.0 95 18 122/55 (77) 98 07/03/19 04:00 Nasal Cannula 2.0 Nasal Cannula 2.0 Nasal Cannula 2.0 07/03/19 03:32 86 07/03/19 02:05 111 117/48 (71) 07/03/19 00:00 2.0 07/03/19 00:00 98.2 102 18 95/63 (74) 97 07/03/19 00:00 Nasal Cannula 2.0 Nasal Cannula 2.0 Nasal Cannula 2.0 07/02/19 23:28 88 07/02/19 22:15 94 112/58 (76) 07/02/19 21:00 103 95/69 (78) 07/02/19 20:38 91 18 97 Nasal Cannula 2.0 28 07/02/19 20:38 97 Nasal Cannula 2.0 28 07/02/19 20:00 Nasal Cannula 2.0 Nasal Cannula 2.0 Nasal Cannula 2.0 07/02/19 20:00 98.0 98 18 138/79 (98) 96 07/02/19 20:00 2.0 07/02/19 19:31 107 Height (Feet): 5 Height (Inches): 4.00 Weight (Pounds): 115 General Appearance: no acute distress HEENT: normocephalic, atraumatic, anicteric, mucous membranes moist Respiratory/Chest: crackles/rales, rhonchi - bilaterally Cardiovascular: normal rate, regular rhythm, no gallop/murmur, no JVD Abdomen: normal bowel sounds, soft, non tender, no organomegaly, non distended Genitourinary: other - + hargrove - urine slt cloudy Extremities: no cyanosis Skin: no rash Neurologic/Psychiatric: grain elevator agent 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 normal, alert, oriented x 3, responsive Lymphatic: no neck adenopathy Musculoskeletal: no effusion Objective Procedure: XRAY Chest 1v Indication: Dyspnea Chest x-ray - 06/29/19 - Technique: One view of the chest Comparison: 06/25/2019 Findings: Interim expansion of previously atelectatic left lung. There is considerable interstitial and airspace disease throughout the left lung, however. Less extensive interstitial congestion is seen in the right lung. The heart size is normal. The aorta is tortuous and calcified Impression: Interim reexpansion of previously atelectatic left lung. However, there is considerable infiltrate and/or edema throughout the left lung. There is also persistent mild generalized interstitial congestion in the right lung CT Chest: IMPRESSION: Extensive airspace consolidation in the left lung involving the left perihilar, upper lobe and left lower lobe. Findings suspicious for pneumonia, especially aspiration given the abrupt onset. Please correlate clinically. Partial atelectasis of the left lower lobe also noted. Atherosclerotic vascular disease. Degenerative changes of the spine and scoliosis. CT abdomen and pelvis: IMPRESSION: No acute findings appreciated. Study limited by the lack of intravenous oral contrast as well as extensive motion artifact. 1.6 cm probable cystic lesion in the pancreatic tail. This requires further evaluation with the contrast CT or MR. Status post previous partial bowel resection. 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 Degenerative changes as described above. Chest x-ray - 07/01/19 - Procedure: XRAY Chest 1v Indication: Dyspnea Comparison: 06/30/2019 A single view chest radiograph was obtained. Findings: Interstitial densities demonstrated with cardiomegaly. There is blunting of the left costophrenic angle. There is a weighted feeding tube the tip of which is projected over the antrum and pyloric region. IMPRESSION: Mild interstitial edema presumably due to heart failure. Correlate clinically Abdominal US: IMPRESSION: No acute findings appreciated. Bilateral pleural effusions Cyst in the splenic hilar region. Contracted gallbladder with prominent wall. CT scan of abdomen and pelvis - 07/02/19 - Impression: 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 Otherwise unremarkable pancreas Small left pleural effusion, new since prior study of 06/24/2019. Bilateral basilar atelectasis and consolidation, increased from the prior exam No acute abnormality otherwise Nasogastric tube in good position Microbiology Date/Time Source Procedure Growth Status 06/29/19 14:25 Blood Blood Culture - Preliminary NO GROWTH AFTER 72 HOURS Resulted 06/30/19 18:00 Stool Clostridium difficile Toxin Assay - Final Complete 06/29/19 05:00 External Cath Urine Culture - Final NO GROWTH AFTER 48 HOURS Complete Microbiology Date/Time Source Procedure Growth Status 06/30/19 18:00 Stool Clostridium difficile Toxin Assay - Final Complete Laboratory Tests Test 07/02/19 21:35 07/03/19 04:10 Carcinoembryonic Antigen Pending CA 19-9 Antigen Pending Hepatitis A IgM Antibody Pending Hepatitis B Surface Antigen Pending Hepatitis B Core IgM Antibody Pending Hepatitis C Antibody Pending HIV (1&2) Antibody Rapid Negative (NEGATIVE) White Blood Count 23.9 K/UL (4.8-10.8) *H Red Blood Count 2.97 M/UL (4.20-5.40) L Hemoglobin 8.7 G/DL (12.0-16.0) L Hematocrit 25.6 % (37.0-47.0) L Mean Corpuscular Volume 86 FL (80-99) Mean Corpuscular Hemoglobin 29.2 PG (27.0-31.0) Mean Corpuscular Hemoglobin Concent 33.8 G/DL (32.0-36.0) Red Cell Distribution Width 12.1 % (11.6-14.8) Platelet Count 178 K/UL (150-450) Mean Platelet Volume 9.3 FL (6.5-10.1) Neutrophils (%) (Auto) % (45.0-75.0) Lymphocytes (%) (Auto) % (20.0-45.0) Monocytes (%) (Auto) % (1.0-10.0) Eosinophils (%) (Auto) % (0.0-3.0) Basophils (%) (Auto) % (0.0-2.0) Differential Total Cells Counted 100 Neutrophils % (Manual) 81 % (45-75) H Lymphocytes % (Manual) 12 % (20-45) L Monocytes % (Manual) 6 % (1-10) Eosinophils % (Manual) 1 % (0-3) Basophils % (Manual) 0 % (0-2) Band Neutrophils 0 % (0-8) Platelet Estimate Adequate Platelet Morphology Normal Hypochromasia 1+ Prothrombin Time 10.0 SEC (9.30-11.50) Prothromb Time International Ratio 0.9 (0.9-1.1) Sodium Level 136 MMOL/L (136-145) Potassium Level 3.6 MMOL/L (3.5-5.1) Chloride Level 101 MMOL/L (98-107) Carbon Dioxide Level 16 MMOL/L (21-32) L Anion Gap 20 mmol/L (5-15) H Blood Urea Nitrogen 104 mg/dL (7-18) H Creatinine 4.8 MG/DL (0.55-1.30) H Estimat Glomerular Filtration Rate 10.3 mL/min (>60) Glucose Level 132 MG/DL (74-106) H Calcium Level 8.6 MG/DL (8.5-10.1) Total Bilirubin 1.2 MG/DL (0.2-1.0) H Direct Bilirubin 0.4 MG/DL (0.0-0.3) H Aspartate Amino Transf (AST/SGOT) 52 U/L (15-37) H Alanine Aminotransferase (ALT/SGPT) 73 U/L (12-78) Alkaline Phosphatase 87 U/L (46-116) Total Protein 6.1 G/DL (6.4-8.2) L Albumin 3.2 G/DL (3.4-5.0) L Globulin 3.0 g/dL Albumin/Globulin Ratio 1.0 (1.0-2.7) Amylase Level 332 U/L (25-115) H Lipase > 2000 U/L (73-393) H Current Medications Medications (Trade) Dose Ordered Sig/Joan Route PRN Reason Start Time Stop Time Status Last Admin Dose Admin Acetaminophen (Tylenol) 650 mg Q4H PRN NG Mild Pain/Temp > 100.5 07/02/19 12:30 08/01/19 12:29 Acetylcysteine (Mucomyst) 100 mg Q4HRT PRN HHN Shortness of Breath 06/25/19 23:45 07/25/19 22:59 Albumin Human 100 ml @ 100 mls/hr NEEDED PRN IV DIALYSIS 06/27/19 14:00 07/27/19 13:59 Chlorhexidine Gluconate (Cari-Hex 2%) 1 applic DAILY@2000 TOPIC 06/26/19 20:00 07/26/19 19:59 07/02/19 20:37 Dextrose (Dextrose 50%) 25 ml Q30M PRN IV Hypoglycemia 06/24/19 19:52 07/24/19 19:51 Dextrose (Dextrose 50%) 50 ml Q30M PRN IV Hypoglycemia 06/24/19 19:52 07/24/19 19:51 Diphenhydramine HCl (Benadryl) 25 mg Q6H PRN ORAL Itching/Pruritis 06/24/19 19:52 07/24/19 19:51 07/02/19 12:11 Furosemide (Lasix) 40 mg DAILY IV 06/30/19 20:00 07/30/19 19:59 07/03/19 08:54 Gabapentin (Neurontin) 300 mg BID GT 07/02/19 18:00 08/01/19 17:59 07/03/19 08:54 Hydromorphone HCl (Dilaudid) 0.5 mg Q2H PRN IVP Severe Pain (Pain Scale 7-10) 07/02/19 12:30 07/09/19 12:29 07/03/19 04:47 Linezolid 300 ml @ 300 mls/hr EVERY 12 HOURS IVPB 06/30/19 21:00 07/07/19 20:59 07/03/19 08:55 Meropenem 500 mg/ Sodium Chloride 50 ml @ 100 mls/hr Q24HRS IVPB 06/30/19 17:00 07/05/19 16:59 07/01/19 18:08 Ondansetron HCl (Zofran) 4 mg Q4H PRN IVP Nausea & Vomiting 07/03/19 10:30 08/02/19 10:29 Pantoprazole (Protonix) 40 mg DAILY IVP 06/30/19 09:00 07/30/19 08:59 07/03/19 08:54 Ana Rosado MD Jul 03, 2019 17:18
[2019-07-03] MEDS: Dyna-Hex 2% Top Sol 2oz TOPIC SCH (20:21)
--- NOTE | 2019-07-03 23:57 | Psych Consult Progress Note ---
Psychiatry Progress Note Psychiatry Progress Note Medications Current Medications Medications (Trade) Dose Ordered Sig/Joan Route PRN Reason Start Time Stop Time Status Last Admin Dose Admin Acetaminophen (Tylenol) 650 mg Q4H PRN NG Mild Pain/Temp > 100.5 07/02/19 12:30 08/01/19 12:29 07/03/19 20:22 Acetylcysteine (Mucomyst) 100 mg Q4HRT PRN HHN Shortness of Breath 06/25/19 23:45 07/25/19 22:59 Albumin Human 100 ml @ 100 mls/hr NEEDED PRN IV DIALYSIS 06/27/19 14:00 07/27/19 13:59 Chlorhexidine Gluconate (Cari-Hex 2%) 1 applic DAILY@2000 TOPIC 06/26/19 20:00 07/26/19 19:59 07/03/19 20:21 Dextrose (Dextrose 50%) 25 ml Q30M PRN IV Hypoglycemia 06/24/19 19:52 07/24/19 19:51 Dextrose (Dextrose 50%) 50 ml Q30M PRN IV Hypoglycemia 06/24/19 19:52 07/24/19 19:51 Diphenhydramine HCl (Benadryl) 25 mg Q6H PRN ORAL Itching/Pruritis 06/24/19 19:52 07/24/19 19:51 07/02/19 12:11 Furosemide (Lasix) 40 mg DAILY IV 06/30/19 20:00 07/30/19 19:59 07/03/19 08:54 Gabapentin (Neurontin) 300 mg BID GT 07/02/19 18:00 08/01/19 17:59 07/03/19 17:46 Hydromorphone HCl (Dilaudid) 0.5 mg Q2H PRN IVP Severe Pain (Pain Scale 7-10) 07/02/19 12:30 07/09/19 12:29 07/03/19 21:14 Linezolid 300 ml @ 300 mls/hr EVERY 12 HOURS IVPB 06/30/19 21:00 07/07/19 20:59 07/03/19 20:21 Meropenem 500 mg/ Sodium Chloride 50 ml @ 100 mls/hr Q24HRS IVPB 07/03/19 17:30 07/08/19 17:29 07/03/19 17:46 Ondansetron HCl (Zofran) 4 mg Q4H PRN IVP Nausea & Vomiting 07/03/19 10:30 08/02/19 10:29 Pantoprazole (Protonix) 40 mg DAILY IVP 06/30/19 09:00 07/30/19 08:59 07/03/19 08:54 Allergies: Coded Allergies: No Known Allergies (Unverified , 06/24/19) Objective Data Height (Feet): 5 Height (Inches): 4.00 Weight (Pounds): 115 Assessment/Plan Status: stable Jaime Jackson MD Jul 03, 2019 23:57
[2019-07-04] VITALS (7 sets, daily range): BP systolic 99–138; BP diastolic 47–67
[2019-07-04] MEDS: Hydromorphone 0.5mg/0.5ml inj IVP PRN ×2 (01:40→13:11)
[2019-07-04 05:40] LABS: HEMATOCRIT 23.9 % (37.0-47.0); HEMOGLOBIN 8.2 G/DL (12.0-16.0); MEAN CORPUSCULAR VOLUME 87 FL (80-99); PLATELET COUNT 197 K/UL (150-450); RED BLOOD COUNT 2.75 M/UL (4.20-5.40); RED CELL DISTRIBUTION WIDTH 13.6 % (11.6-14.8); WHITE BLOOD COUNT 21.4 K/UL (4.8-10.8)
[2019-07-04 06:01] LABS: ALANINE AMINOTRANSFERASE 71 U/L (12-78); ALBUMIN 3.3 G/DL (3.4-5.0); ALBUMIN/GLOBULIN RATIO 1.2 (1.0-2.7); ALKALINE PHOSPHATASE 82 U/L (46-116); ANION GAP 18 mmol/L (5-15); ASPARTATE AMINO TRANSFERASE 64 U/L (15-37); BLOOD UREA NITROGEN 68 mg/dL (7-18); CALCIUM 8.8 MG/DL (8.5-10.1); CARBON DIOXIDE 21 MMOL/L (21-32); CHLORIDE 95 MMOL/L (98-107); CREATININE 3.7 MG/DL (0.55-1.30); POTASSIUM 3.4 MMOL/L (3.5-5.1); SODIUM 134 MMOL/L (136-145)
[2019-07-04] MEDS: Pantoprazole Inj IVP SCH (08:28)
[2019-07-04] MEDS: Gabapentin 300 MG/6 ML Soln GT SCH ×2 (08:29→17:21)
--- NOTE | 2019-07-04 09:25 | Hematology/Onc Progress Note ---
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 Otherwise unremarkable pancreas --> as per gi, may need further eval with endsocopy --> with pancreatitis at this time, may be obscuring picture --> reimage in short order, 6 months --> ca19.9 to order, but may be elevated due to pancreatitis --> cea of 10 # Leukocytosis/elevated white blood cell count, unspecified likely related to underlying stress reaction, smoking v more likely infection in this case, bacteremia --> have reviewed peripheral smear and bandemia/neutrophilia noted --> continue antibiotics if they have been started by ID team --> monitor for resolution --> as per id care, on broad spectrum abx --> wbc 30-->21 # Anemia of chronic disease due to underlying chronic medical issues, multifactorial v Gi bleed --> Anemia workup has been ordered, rule out gi bleed --> No evidence of hemolysis is noted, peripheral smear has been reviewed. --> Hgb goal >7. Transfuse prn. --> Epogen or iron at this time is not particularly indicated --> Medications have been reviewed --> low threshold for gi evaluation in case has occult + --> bone marrow biopsy is not indicated given the other more likely causes # Thrombocytopenia - potential causes multifactorial, evaluate liver and viral etiologies to begin, in this case due to sepsisand pancreatitis --> Hep panel and HIV are both negative --> US abd to evaluate for cirrhosis and hsm --> pleural effusions noted, hsm is neg --> Peripheral smear ordered to evaluate for blasts /schistocytes --> abx and other meds have been reviewed --> ok for ppx if plt >50k w/ either heparin or lovenox # Acute renal failure - on HD UF --> hd with 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 Greatly appreciate consultation. Subjective Constitutional: Denies: no symptoms, chills, fever, malaise, weakness, other HEENT: Denies: no symptoms, eye pain, blurred vision, tearing, double vision, ear pain, ear discharge, nose pain, nose congestion, throat pain, throat swelling, mouth pain, mouth swelling, other Cardiovascular: Denies: no symptoms, chest pain, edema, irregular heart rate, lightheadedness, palpitations, syncope, other Respiratory: Denies: no symptoms, cough, shortness of breath, SOB with excertion, SOB at rest, sputum, wheezing, other Gastrointestinal/Abdominal: Denies: no symptoms, abdomen distended, abdominal pain, black stools, tarry stools, blood in stool, constipated, diarrhea, difficulty swallowing, nausea, poor appetite, poor fluid intake, rectal bleeding , vomiting, other Genitourinary: Denies: no symptoms, burning, discharge, frequency, flank pain, hematuria, incontinence, pain, urgency, other Neurologic/Psychiatric: Denies: no symptoms, anxiety, depressed, emotional problems, headache, numbness, paresthesia, pre-existing deficit, seizure, tingling, tremors, weakness, other Endocrine: Denies: no symptoms, excessive sweating, flushing, intolerance to cold, intolerance to heat, increased hunger, increased thirst, increased urine, unexplained weight gain, unexplained weight loss, other Allergies: Coded Allergies: No Known Allergies (Unverified , 06/24/19) Subjective 07/02: resting in bed, appears to be comfortable, no bleeding, on merop, no events 07/03: is crying with ng tube, no bleeding, labs noted, no night swaets, lytes to be replted Objective Objective Current Medications Medications (Trade) Dose Ordered Sig/Joan Route PRN Reason Start Time Stop Time Status Last Admin Dose Admin Acetaminophen (Tylenol) 650 mg Q4H PRN NG Mild Pain/Temp > 100.5 07/02/19 12:30 08/01/19 12:29 07/03/19 20:22 Acetylcysteine (Mucomyst) 100 mg Q4HRT PRN HHN Shortness of Breath 06/25/19 23:45 4/2/20 22:59 Albumin Human 100 ml @ 100 mls/hr NEEDED PRN IV DIALYSIS 06/27/19 14:00 07/27/19 13:59 Chlorhexidine Gluconate (Cari-Hex 2%) 1 applic DAILY@2000 TOPIC 06/26/19 20:00 07/26/19 19:59 07/03/19 20:21 Dextrose (Dextrose 50%) 25 ml Q30M PRN IV Hypoglycemia 06/24/19 19:52 07/24/19 19:51 Dextrose (Dextrose 50%) 50 ml Q30M PRN IV Hypoglycemia 06/24/19 19:52 07/24/19 19:51 Diphenhydramine HCl (Benadryl) 25 mg Q6H PRN ORAL Itching/Pruritis 06/24/19 19:52 07/24/19 19:51 07/02/19 12:11 Furosemide (Lasix) 40 mg DAILY IV 06/30/19 20:00 07/30/19 19:59 07/04/19 08:29 Gabapentin (Neurontin) 300 mg BID GT 07/02/19 18:00 08/01/19 17:59 07/04/19 08:29 Hydromorphone HCl (Dilaudid) 0.5 mg Q2H PRN IVP Severe Pain (Pain Scale 7-10) 07/02/19 12:30 07/09/19 12:29 07/04/19 01:40 Linezolid 300 ml @ 300 mls/hr EVERY 12 HOURS IVPB 06/30/19 21:00 07/07/19 20:59 07/04/19 08:29 Meropenem 500 mg/ Sodium Chloride 50 ml @ 100 mls/hr Q24HRS IVPB 07/03/19 17:30 07/08/19 17:29 07/03/19 17:46 Ondansetron HCl (Zofran) 4 mg Q4H PRN IVP Nausea & Vomiting 07/03/19 10:30 08/02/19 10:29 Pantoprazole (Protonix) 40 mg DAILY IVP 06/30/19 09:00 07/30/19 08:59 07/04/19 08:28 Last 24 Hour Vital Signs Date Time Temp Pulse Resp B/P (MAP) Pulse Ox O2 Delivery O2 Flow Rate FiO2 3/12/20 08:00 98.2 97 19 138/59 (85) 98 07/04/19 07:53 118 20 96 Nasal Cannula 2.0 28 07/04/19 07:53 96 Nasal Cannula 2.0 28 07/04/19 06:00 Nasal Cannula 2.0 Nasal Cannula 2.0 Nasal Cannula 2.0 07/04/19 04:00 98.2 87 20 120/47 (71) 98 07/04/19 04:00 2.0 07/04/19 04:00 Nasal Cannula 2.0 Nasal Cannula 2.0 Nasal Cannula 2.0 07/04/19 03:37 105 07/04/19 02:10 98.7 07/04/19 01:38 95 121/50 (73) 07/04/19 00:00 2.0 07/04/19 00:00 98.7 95 20 111/63 (79) 98 07/04/19 00:00 Nasal Cannula 2.0 Nasal Cannula 2.0 Nasal Cannula 2.0 07/03/19 23:31 95 07/03/19 20:52 99.0 07/03/19 20:52 99.0 92 07/03/19 20:00 2.0 07/03/19 20:00 Nasal Cannula 2.0 Nasal Cannula 2.0 Nasal Cannula 2.0 07/03/19 20:00 100.4 105 28 148/56 (86) 98 07/03/19 19:17 96 Nasal Cannula 2.0 28 07/03/19 19:16 89 18 96 Nasal Cannula 2.0 28 07/03/19 19:00 109 07/03/19 16:00 98.9 102 20 130/52 (78) 98 07/03/19 16:00 105 07/03/19 16:00 2.0 07/03/19 16:00 Nasal Cannula 2.0 Nasal Cannula 2.0 Nasal Cannula 2.0 07/03/19 12:00 Nasal Cannula 2.0 Nasal Cannula 2.0 Nasal Cannula 2.0 07/03/19 12:00 99.4 99 19 147/56 (86) 97 07/03/19 12:00 2.0 07/03/19 11:38 98 07/03/19 08:00 98.8 95 19 121/52 (75) 97 07/03/19 08:00 2.0 07/03/19 08:00 Nasal Cannula 2.0 Nasal Cannula 2.0 Nasal Cannula 2.0 07/03/19 07:46 116 07/03/19 07:00 96 Nasal Cannula 2.0 28 07/03/19 07:00 88 18 96 Nasal Cannula 2.0 28 07/03/19 04:00 2.0 07/03/19 04:00 98.0 95 18 122/55 (77) 98 07/03/19 04:00 Nasal Cannula 2.0 Nasal Cannula 2.0 Nasal Cannula 2.0 07/03/19 03:32 86 07/03/19 02:05 111 117/48 (71) 07/03/19 00:00 2.0 07/03/19 00:00 98.2 102 18 95/63 (74) 97 07/03/19 00:00 Nasal Cannula 2.0 Nasal Cannula 2.0 Nasal Cannula 2.0 07/02/19 23:28 88 07/02/19 22:15 94 112/58 (76) 07/02/19 21:00 103 95/69 (78) 07/02/19 20:38 91 18 97 Nasal Cannula 2.0 28 07/02/19 20:38 97 Nasal Cannula 2.0 28 07/02/19 20:00 Nasal Cannula 2.0 Nasal Cannula 2.0 Nasal Cannula 2.0 07/02/19 20:00 98.0 98 18 138/79 (98) 96 07/02/19 20:00 2.0 07/02/19 19:31 107 07/02/19 16:00 Nasal Cannula 2.0 Nasal Cannula 2.0 Nasal Cannula 2.0 07/02/19 16:00 2.0 07/02/19 16:00 98.8 95 18 106/50 (68) 96 07/02/19 15:31 97 07/02/19 12:00 Nasal Cannula 2.0 Nasal Cannula 2.0 Nasal Cannula 2.0 07/02/19 12:00 2.0 07/02/19 12:00 97.9 106 16 120/71 (87) 97 07/02/19 11:33 107 07/02/19 09:47 97.6 Intake and Output 07/03/19 07/04/19 19:00 07:00 Intake Total 850 ml 880 ml Output Total 50 ml Balance 800 ml 880 ml Free Water 150 ml 100 ml IV Total 300 ml 300 ml Tube Feeding 400 ml 480 ml Hemodialysis 0 ml Output Urine Total 50 ml Hemodialysis UF 0 ml # Bowel Movements 2 3 Labs Test 07/02/19 03:50 07/02/19 21:35 07/03/19 04:10 07/04/19 04:50 White Blood Count 27.1 K/UL (4.8-10.8) 23.9 K/UL (4.8-10.8) 21.4 K/UL (4.8-10.8) Red Blood Count 2.63 M/UL (4.20-5.40) 2.97 M/UL (4.20-5.40) 2.75 M/UL (4.20-5.40) Hemoglobin 7.3 G/DL (12.0-16.0) 8.7 G/DL (12.0-16.0) 8.2 G/DL (12.0-16.0) Hematocrit 22.9 % (37.0-47.0) 25.6 % (37.0-47.0) 23.9 % (37.0-47.0) Mean Corpuscular Volume 87 FL (80-99) 86 FL (80-99) 87 FL (80-99) Mean Corpuscular Hemoglobin 27.7 PG (27.0-31.0) 29.2 PG (27.0-31.0) 29.6 PG (27.0-31.0) Mean Corpuscular Hemoglobin Concent 31.9 G/DL (32.0-36.0) 33.8 G/DL (32.0-36.0) 34.1 G/DL (32.0-36.0) Red Cell Distribution Width 12.4 % (11.6-14.8) 12.1 % (11.6-14.8) 13.6 % (11.6-14.8) Platelet Count 132 K/UL (150-450) 178 K/UL (150-450) 197 K/UL (150-450) Mean Platelet Volume 9.6 FL (6.5-10.1) 9.3 FL (6.5-10.1) 8.7 FL (6.5-10.1) Neutrophils (%) (Auto) % (45.0-75.0) % (45.0-75.0) % (45.0-75.0) Lymphocytes (%) (Auto) % (20.0-45.0) % (20.0-45.0) % (20.0-45.0) Monocytes (%) (Auto) % (1.0-10.0) % (1.0-10.0) % (1.0-10.0) Eosinophils (%) (Auto) % (0.0-3.0) % (0.0-3.0) % (0.0-3.0) Basophils (%) (Auto) % (0.0-2.0) % (0.0-2.0) % (0.0-2.0) Differential Total Cells Counted 100 100 Neutrophils % (Manual) 85 % (45-75) 81 % (45-75) Lymphocytes % (Manual) 9 % (20-45) 12 % (20-45) Monocytes % (Manual) 4 % (1-10) 6 % (1-10) Eosinophils % (Manual) 2 % (0-3) 1 % (0-3) Basophils % (Manual) 0 % (0-2) 0 % (0-2) Band Neutrophils 0 % (0-8) 0 % (0-8) Platelet Estimate Decreased Adequate Platelet Morphology Normal Normal Hypochromasia 3+ 1+ Anisocytosis 1+ Sodium Level 142 MMOL/L (136-145) 136 MMOL/L (136-145) 134 MMOL/L (136-145) Potassium Level 3.8 MMOL/L (3.5-5.1) 3.6 MMOL/L (3.5-5.1) 3.4 MMOL/L (3.5-5.1) Chloride Level 100 MMOL/L (98-107) 101 MMOL/L (98-107) 95 MMOL/L (98-107) Carbon Dioxide Level 24 MMOL/L (21-32) 16 MMOL/L (21-32) 21 MMOL/L (21-32) Anion Gap 18 mmol/L (5-15) 20 mmol/L (5-15) 18 mmol/L (5-15) Blood Urea Nitrogen 105 mg/dL (7-18) 104 mg/dL (7-18) 68 mg/dL (7-18) Creatinine 4.9 MG/DL (0.55-1.30) 4.8 MG/DL (0.55-1.30) 3.7 MG/DL (0.55-1.30) Estimat Glomerular Filtration Rate 10.2 mL/min (>60) 10.3 mL/min (>60) 14.1 mL/min (>60) Glucose Level 151 MG/DL (74-106) 132 MG/DL (74-106) 133 MG/DL (74-106) Calcium Level 8.7 MG/DL (8.5-10.1) 8.6 MG/DL (8.5-10.1) 8.8 MG/DL (8.5-10.1) Total Bilirubin 3.2 MG/DL (0.2-1.0) 1.2 MG/DL (0.2-1.0) 1.0 MG/DL (0.2-1.0) Direct Bilirubin 2.0 MG/DL (0.0-0.3) 0.4 MG/DL (0.0-0.3) Aspartate Amino Transf (AST/SGOT) 110 U/L (15-37) 52 U/L (15-37) 64 U/L (15-37) Alanine Aminotransferase (ALT/SGPT) 97 U/L (12-78) 73 U/L (12-78) 71 U/L (12-78) Alkaline Phosphatase 96 U/L (46-116) 87 U/L (46-116) 82 U/L (46-116) Total Protein 5.5 G/DL (6.4-8.2) 6.1 G/DL (6.4-8.2) 6.1 G/DL (6.4-8.2) Albumin 3.1 G/DL (3.4-5.0) 3.2 G/DL (3.4-5.0) 3.3 G/DL (3.4-5.0) Globulin 2.4 g/dL 3.0 g/dL 2.8 g/dL Albumin/Globulin Ratio 1.3 (1.0-2.7) 1.0 (1.0-2.7) 1.2 (1.0-2.7) Triglycerides Level 147 MG/DL (30-150) Cholesterol Level 98 MG/DL (< 200) LDL Cholesterol 48 mg/dL (<100) HDL Cholesterol 28 MG/DL (40-60) Cholesterol/HDL Ratio 3.5 (3.3-4.4) Amylase Level 852 U/L (25-115) 332 U/L (25-115) Lipase 9431 U/L (73-393) > 2000 U/L (73-393) Carcinoembryonic Antigen 10.0 ng/mL (0.0-4.7) Hepatitis A IgM Antibody Negative (Negative) Hepatitis B Surface Antigen Negative (Negative) Hepatitis B Core IgM Antibody Negative (Negative) Hepatitis C Antibody <0.1 s/co ratio HIV (1&2) Antibody Rapid Negative (NEGATIVE) Prothrombin Time 10.0 SEC (9.30-11.50) Prothromb Time International Ratio 0.9 (0.9-1.1) Height (Feet): 5 Height (Inches): 4.00 Weight (Pounds): 115 Objective Physical Exam: Vitals: reviewed General: NAD, groans to pain stimuli HEENT: nc, at Neck: supple Chest: clear breath sounds bilaterally Cardiovascular: RRR, no s3, s4 Abdomen: soft, nontender, nd Extremities: no cce, normal range of motion Neuro: alert and oriented Skin: other - pressure sores to right side Bola Aldridge MD Jul 04, 2019 09:25
--- NOTE | 2019-07-04 10:56 | Pulmonology Progress Note ---
Assessment/Plan Assessment/Plan IMPRESSION: 1. Extensive left lung pneumonia. Latest CXR shows significant clearing 2. Pulmonary edema. 3. Respiratory failure; now off BiPAP DISCUSSION: Continue broad-spectrum antibiotics. Dialysis per renal Use BiPAP prn. Supplemental O2. I will continue to follow carefully. Abrahan Samaniego M.D. Subjective Interval Events: None new Constitutional: Reports: no symptoms HEENT: Repors: no symptoms Respiratory: Reports: no symptoms Gastrointestinal/Abdominal: Reports: no symptoms Allergies: Coded Allergies: No Known Allergies (Unverified , 06/24/19) Objective Last 24 Hour Vital Signs Date Time Temp Pulse Resp B/P (MAP) Pulse Ox O2 Delivery O2 Flow Rate FiO2 07/04/19 08:00 98.2 97 19 138/59 (85) 98 07/04/19 07:53 118 20 96 Nasal Cannula 2.0 28 07/04/19 07:53 96 Nasal Cannula 2.0 28 07/04/19 06:00 Nasal Cannula 2.0 Nasal Cannula 2.0 Nasal Cannula 2.0 07/04/19 04:00 98.2 87 20 120/47 (71) 98 07/04/19 04:00 2.0 07/04/19 04:00 Nasal Cannula 2.0 Nasal Cannula 2.0 Nasal Cannula 2.0 07/04/19 03:37 105 07/04/19 02:10 98.7 07/04/19 01:38 95 121/50 (73) 07/04/19 00:00 2.0 07/04/19 00:00 98.7 95 20 111/63 (79) 98 07/04/19 00:00 Nasal Cannula 2.0 Nasal Cannula 2.0 Nasal Cannula 2.0 07/03/19 23:31 95 07/03/19 20:52 99.0 07/03/19 20:52 99.0 92 07/03/19 20:00 2.0 07/03/19 20:00 Nasal Cannula 2.0 Nasal Cannula 2.0 Nasal Cannula 2.0 07/03/19 20:00 100.4 105 28 148/56 (86) 98 07/03/19 19:17 96 Nasal Cannula 2.0 28 07/03/19 19:16 89 18 96 Nasal Cannula 2.0 28 07/03/19 19:00 109 07/03/19 16:00 98.9 102 20 130/52 (78) 98 07/03/19 16:00 105 07/03/19 16:00 2.0 07/03/19 16:00 Nasal Cannula 2.0 Nasal Cannula 2.0 Nasal Cannula 2.0 07/03/19 12:00 Nasal Cannula 2.0 Nasal Cannula 2.0 Nasal Cannula 2.0 07/03/19 12:00 99.4 99 19 147/56 (86) 97 07/03/19 12:00 2.0 07/03/19 11:38 98 Intake and Output 07/03/19 07/04/19 19:00 07:00 Intake Total 850 ml 880 ml Output Total 50 ml Balance 800 ml 880 ml Free Water 150 ml 100 ml IV Total 300 ml 300 ml Tube Feeding 400 ml 480 ml Hemodialysis 0 ml Output Urine Total 50 ml Hemodialysis UF 0 ml # Bowel Movements 2 3 General Appearance: no acute distress HEENT: normocephalic Respiratory/Chest: chest wall non-tender, decreased breath sounds Cardiovascular: normal peripheral pulses Abdomen: normal bowel sounds Laboratory Tests 07/04/19 04:50: White Blood Count 21.4H, Red Blood Count 2.75L, Hemoglobin 8.2L, Hematocrit 23.9L, Mean Corpuscular Volume 87, Mean Corpuscular Hemoglobin 29.6, Mean Corpuscular Hemoglobin Concent 34.1, Red Cell Distribution Width 13.6, Platelet Count 197, Mean Platelet Volume 8.7, Neutrophils (%) (Auto) , Lymphocytes (%) ( Auto) , Monocytes (%) (Auto) , Eosinophils (%) (Auto) , Basophils (%) (Auto) , Differential Total Cells Counted 100, Neutrophils % (Manual) 92H, Lymphocytes % (Manual) 4L, Monocytes % (Manual) 3, Eosinophils % (Manual) 1, Basophils % ( Manual) 0, Band Neutrophils 0, Platelet Estimate Adequate, Platelet Morphology Normal, Hypochromasia 2+, Anisocytosis 1+, Spherocytes 1+, Sodium Level 134L, Potassium Level 3.4L, Chloride Level 95L, Carbon Dioxide Level 21, Anion Gap 18H , Blood Urea Nitrogen 68H, Creatinine 3.7H, Estimat Glomerular Filtration Rate 14.1, Glucose Level 133H, Calcium Level 8.8, Total Bilirubin 1.0, Aspartate Amino Transf (AST/SGOT) 64H, Alanine Aminotransferase (ALT/SGPT) 71, Alkaline Phosphatase 82, Total Protein 6.1L, Albumin 3.3L, Globulin 2.8, Albumin/ Globulin Ratio 1.2 Current Medications Medications (Trade) Dose Ordered Sig/Joan Route PRN Reason Start Time Stop Time Status Last Admin Dose Admin Acetaminophen (Tylenol) 650 mg Q4H PRN NG Mild Pain/Temp > 100.5 07/02/19 12:30 08/01/19 12:29 07/03/19 20:22 Acetylcysteine (Mucomyst) 100 mg Q4HRT PRN HHN Shortness of Breath 06/25/19 23:45 07/25/19 22:59 Albumin Human 100 ml @ 100 mls/hr NEEDED PRN IV DIALYSIS 06/27/19 14:00 07/27/19 13:59 Chlorhexidine Gluconate (Cari-Hex 2%) 1 applic DAILY@2000 TOPIC 06/26/19 20:00 07/26/19 19:59 07/03/19 20:21 Dextrose (Dextrose 50%) 25 ml Q30M PRN IV Hypoglycemia 06/24/19 19:52 07/24/19 19:51 Dextrose (Dextrose 50%) 50 ml Q30M PRN IV Hypoglycemia 06/24/19 19:52 07/24/19 19:51 Diphenhydramine HCl (Benadryl) 25 mg Q6H PRN ORAL Itching/Pruritis 06/24/19 19:52 07/24/19 19:51 07/02/19 12:11 Furosemide (Lasix) 40 mg DAILY IV 06/30/19 20:00 07/30/19 19:59 07/04/19 08:29 Gabapentin (Neurontin) 300 mg BID GT 07/02/19 18:00 08/01/19 17:59 07/04/19 08:29 Hydromorphone HCl (Dilaudid) 0.5 mg Q2H PRN IVP Severe Pain (Pain Scale 7-10) 07/02/19 12:30 07/09/19 12:29 07/04/19 01:40 Linezolid 300 ml @ 300 mls/hr EVERY 12 HOURS IVPB 06/30/19 21:00 07/07/19 20:59 07/04/19 08:29 Meropenem 500 mg/ Sodium Chloride 50 ml @ 100 mls/hr Q24HRS IVPB 07/03/19 17:30 07/08/19 17:29 07/03/19 17:46 Ondansetron HCl (Zofran) 4 mg Q4H PRN IVP Nausea & Vomiting 07/03/19 10:30 08/02/19 10:29 Pantoprazole (Protonix) 40 mg DAILY IVP 06/30/19 09:00 07/30/19 08:59 07/04/19 08:28 Abrahan Samaniego MD Jul 04, 2019 10:56
--- NOTE | 2019-07-04 12:03 | General Progress Note ---
Assessment/Plan Problem List: (1) KAREN (acute kidney injury) ICD Codes: N17.9 - Acute kidney failure, unspecified SNOMED: 0409772, 33865664 (2) Altered level of consciousness ICD Codes: R40.4 - Transient alteration of awareness SNOMED: 0790633 Status: stable Assessment/Plan: dysphagia elevated LFTS pancreatitis based on elevated lipase fatty liver ESRD pancreatic cyst anemia stool ob positive s/p NGT placement NGTF repeat labs abx per ID PEG when more stable, possibly tomorrow CT reviewed improving LFTS, wbc and lipase Subjective ROS Limited/Unobtainable: No Allergies: Coded Allergies: No Known Allergies (Unverified , 06/24/19) Objective Last 24 Hour Vital Signs Date Time Temp Pulse Resp B/P (MAP) Pulse Ox O2 Delivery O2 Flow Rate FiO2 07/04/19 08:00 98.2 97 19 138/59 (85) 98 07/04/19 07:53 118 20 96 Nasal Cannula 2.0 28 07/04/19 07:53 96 Nasal Cannula 2.0 28 07/04/19 06:00 Nasal Cannula 2.0 Nasal Cannula 2.0 Nasal Cannula 2.0 07/04/19 04:00 98.2 87 20 120/47 (71) 98 07/04/19 04:00 2.0 07/04/19 04:00 Nasal Cannula 2.0 Nasal Cannula 2.0 Nasal Cannula 2.0 07/04/19 03:37 105 07/04/19 02:10 98.7 07/04/19 01:38 95 121/50 (73) 07/04/19 00:00 2.0 07/04/19 00:00 98.7 95 20 111/63 (79) 98 07/04/19 00:00 Nasal Cannula 2.0 Nasal Cannula 2.0 Nasal Cannula 2.0 07/03/19 23:31 95 07/03/19 20:52 99.0 07/03/19 20:52 99.0 92 07/03/19 20:00 2.0 07/03/19 20:00 Nasal Cannula 2.0 Nasal Cannula 2.0 Nasal Cannula 2.0 07/03/19 20:00 100.4 105 28 148/56 (86) 98 07/03/19 19:17 96 Nasal Cannula 2.0 28 07/03/19 19:16 89 18 96 Nasal Cannula 2.0 28 07/03/19 19:00 109 07/03/19 16:00 98.9 102 20 130/52 (78) 98 07/03/19 16:00 105 07/03/19 16:00 2.0 07/03/19 16:00 Nasal Cannula 2.0 Nasal Cannula 2.0 Nasal Cannula 2.0 Intake and Output 07/03/19 07/04/19 19:00 07:00 Intake Total 850 ml 880 ml Output Total 50 ml Balance 800 ml 880 ml Free Water 150 ml 100 ml IV Total 300 ml 300 ml Tube Feeding 400 ml 480 ml Hemodialysis 0 ml Output Urine Total 50 ml Hemodialysis UF 0 ml # Bowel Movements 2 3 Laboratory Tests 07/04/19 04:50: White Blood Count 21.4H, Red Blood Count 2.75L, Hemoglobin 8.2L, Hematocrit 23.9L, Mean Corpuscular Volume 87, Mean Corpuscular Hemoglobin 29.6, Mean Corpuscular Hemoglobin Concent 34.1, Red Cell Distribution Width 13.6, Platelet Count 197, Mean Platelet Volume 8.7, Neutrophils (%) (Auto) , Lymphocytes (%) ( Auto) , Monocytes (%) (Auto) , Eosinophils (%) (Auto) , Basophils (%) (Auto) , Differential Total Cells Counted 100, Neutrophils % (Manual) 92H, Lymphocytes % (Manual) 4L, Monocytes % (Manual) 3, Eosinophils % (Manual) 1, Basophils % ( Manual) 0, Band Neutrophils 0, Platelet Estimate Adequate, Platelet Morphology Normal, Hypochromasia 2+, Anisocytosis 1+, Spherocytes 1+, Sodium Level 134L, Potassium Level 3.4L, Chloride Level 95L, Carbon Dioxide Level 21, Anion Gap 18H , Blood Urea Nitrogen 68H, Creatinine 3.7H, Estimat Glomerular Filtration Rate 14.1, Glucose Level 133H, Calcium Level 8.8, Total Bilirubin 1.0, Aspartate Amino Transf (AST/SGOT) 64H, Alanine Aminotransferase (ALT/SGPT) 71, Alkaline Phosphatase 82, Total Protein 6.1L, Albumin 3.3L, Globulin 2.8, Albumin/ Globulin Ratio 1.2 Height (Feet): 5 Height (Inches): 4.00 Weight (Pounds): 115 General Appearance: lethargic EENT: normal ENT inspection Neck: supple Cardiovascular: normal rate Respiratory/Chest: decreased breath sounds Abdomen: normal bowel sounds, non tender, soft Extremities: non-tender Jun Mena MD Jul 04, 2019 12:03
--- NOTE | 2019-07-04 13:57 | General Progress Note ---
Assessment/Plan Status: stable Assessment/Plan: #Rhabdomyolosis #KAREN #Acute renal failure - on HD UF #Uremic encephalopathy #Anion gap metabolic acidosis #Lactic acidosis -resolved -Nephrology following for HD #Left lung PNA - likely aspiration #Acute hypoxic respiratory failure s/p BiPAP - improved #Strep Viridans bacteremia #Worsening Leukocytosis #loose stools Noted to be acutely hypoxic on early AM of 06/25 -s/p BiPAP -> NC/room air intermittently -CT chest, CXR with left lung infiltrate. -ABG prn. -Pulmonology following -echo negative for vegetations -CXR 06/28: Bilateral interstitial thickening and patchy airspace opacities in the left lung, similar to prior study given differences in technique. -ID following - Now on Zyvox and meropenem -Stool C. diff negative,oral vanco stopped #Dysphagia -NGT for feeding for now -Possible PEG on Monday #L1 vertebral fracture - likely old seen on imaging, likely old. -reassurance provided to family. #Transaminitis #Acute pancreatitis ?from dehydration, abd exam benign. -continue to trend LFT's, numbers improving -GI following #Type 2 NSTEMI likely demand in setting of renal failure. EKG wnl. -no need to trend. -cardiology consulted - pt will need stress test prior to d/c #Pressure wounds. -General surgery consulted for wound care, central line insertion on 06/24 -Cont. wound care and offloading Time spent: 36 mins, >50% on coordination of care and chart review. Subjective Date patient seen: Jul 04, 2019 Time patient seen: 12:01 ROS Limited/Unobtainable: Yes Allergies: Coded Allergies: No Known Allergies (Unverified , 06/24/19) Subjective Follow up for KAREN, acute pancreatitis, rhabdo, strep bacteremia No acute events overnight Remains nonverbal Objective Last 24 Hour Vital Signs Date Time Temp Pulse Resp B/P (MAP) Pulse Ox O2 Delivery O2 Flow Rate FiO2 07/04/19 11:47 93 07/04/19 08:00 Nasal Cannula 2.0 Nasal Cannula 2.0 Nasal Cannula 2.0 07/04/19 08:00 2.0 07/04/19 08:00 98.2 97 19 138/59 (85) 98 07/04/19 08:00 117 07/04/19 07:53 118 20 96 Nasal Cannula 2.0 28 07/04/19 07:53 96 Nasal Cannula 2.0 28 07/04/19 06:00 Nasal Cannula 2.0 Nasal Cannula 2.0 Nasal Cannula 2.0 07/04/19 04:00 98.2 87 20 120/47 (71) 98 07/04/19 04:00 2.0 07/04/19 04:00 Nasal Cannula 2.0 Nasal Cannula 2.0 Nasal Cannula 2.0 07/04/19 03:37 105 07/04/19 02:10 98.7 07/04/19 01:38 95 121/50 (73) 07/04/19 00:00 2.0 07/04/19 00:00 98.7 95 20 111/63 (79) 98 07/04/19 00:00 Nasal Cannula 2.0 Nasal Cannula 2.0 Nasal Cannula 2.0 07/03/19 23:31 95 07/03/19 20:52 99.0 07/03/19 20:52 99.0 92 07/03/19 20:00 2.0 07/03/19 20:00 Nasal Cannula 2.0 Nasal Cannula 2.0 Nasal Cannula 2.0 07/03/19 20:00 100.4 105 28 148/56 (86) 98 07/03/19 19:17 96 Nasal Cannula 2.0 28 07/03/19 19:16 89 18 96 Nasal Cannula 2.0 28 07/03/19 19:00 109 07/03/19 16:00 98.9 102 20 130/52 (78) 98 07/03/19 16:00 105 07/03/19 16:00 2.0 07/03/19 16:00 Nasal Cannula 2.0 Nasal Cannula 2.0 Nasal Cannula 2.0 Intake and Output 07/03/19 07/04/19 19:00 07:00 Intake Total 850 ml 880 ml Output Total 50 ml Balance 800 ml 880 ml Free Water 150 ml 100 ml IV Total 300 ml 300 ml Tube Feeding 400 ml 480 ml Hemodialysis 0 ml Output Urine Total 50 ml Hemodialysis UF 0 ml # Bowel Movements 2 3 Laboratory Tests 07/04/19 04:50: White Blood Count 21.4H, Red Blood Count 2.75L, Hemoglobin 8.2L, Hematocrit 23.9L, Mean Corpuscular Volume 87, Mean Corpuscular Hemoglobin 29.6, Mean Corpuscular Hemoglobin Concent 34.1, Red Cell Distribution Width 13.6, Platelet Count 197, Mean Platelet Volume 8.7, Neutrophils (%) (Auto) , Lymphocytes (%) ( Auto) , Monocytes (%) (Auto) , Eosinophils (%) (Auto) , Basophils (%) (Auto) , Differential Total Cells Counted 100, Neutrophils % (Manual) 92H, Lymphocytes % (Manual) 4L, Monocytes % (Manual) 3, Eosinophils % (Manual) 1, Basophils % ( Manual) 0, Band Neutrophils 0, Platelet Estimate Adequate, Platelet Morphology Normal, Hypochromasia 2+, Anisocytosis 1+, Spherocytes 1+, Sodium Level 134L, Potassium Level 3.4L, Chloride Level 95L, Carbon Dioxide Level 21, Anion Gap 18H , Blood Urea Nitrogen 68H, Creatinine 3.7H, Estimat Glomerular Filtration Rate 14.1, Glucose Level 133H, Calcium Level 8.8, Total Bilirubin 1.0, Aspartate Amino Transf (AST/SGOT) 64H, Alanine Aminotransferase (ALT/SGPT) 71, Alkaline Phosphatase 82, Total Protein 6.1L, Albumin 3.3L, Globulin 2.8, Albumin/ Globulin Ratio 1.2 Height (Feet): 5 Height (Inches): 4.00 Weight (Pounds): 115 General Appearance: lethargic, confused Cardiovascular: normal rate, regular rhythm Respiratory/Chest: lungs clear, normal breath sounds, no respiratory distress Abdomen: non tender, soft Oumar Foy MD Jul 04, 2019 13:57
--- NOTE | 2019-07-04 15:31 | Surgery Progress Note ---
Surgery Progress Note Subjective Procedure Performed Left femoral temporary hemodialysis catheter insertion Additional Comments genet cute events comfortable stable Objective Last 24 Hour Vital Signs Date Time Temp Pulse Resp B/P (MAP) Pulse Ox O2 Delivery O2 Flow Rate FiO2 07/04/19 12:45 98.0 95 19 129/62 (84) 95 07/04/19 12:30 Nasal Cannula 2.0 07/04/19 11:47 93 07/04/19 08:00 Nasal Cannula 2.0 Nasal Cannula 2.0 Nasal Cannula 2.0 07/04/19 08:00 2.0 07/04/19 08:00 98.2 97 19 138/59 (85) 98 07/04/19 08:00 117 07/04/19 07:53 118 20 96 Nasal Cannula 2.0 28 07/04/19 07:53 96 Nasal Cannula 2.0 28 07/04/19 06:00 Nasal Cannula 2.0 Nasal Cannula 2.0 Nasal Cannula 2.0 07/04/19 04:00 98.2 87 20 120/47 (71) 98 07/04/19 04:00 2.0 07/04/19 04:00 Nasal Cannula 2.0 Nasal Cannula 2.0 Nasal Cannula 2.0 07/04/19 03:37 105 07/04/19 02:10 98.7 07/04/19 01:38 95 121/50 (73) 07/04/19 00:00 2.0 07/04/19 00:00 98.7 95 20 111/63 (79) 98 07/04/19 00:00 Nasal Cannula 2.0 Nasal Cannula 2.0 Nasal Cannula 2.0 07/03/19 23:31 95 07/03/19 20:52 99.0 07/03/19 20:52 99.0 92 07/03/19 20:00 2.0 07/03/19 20:00 Nasal Cannula 2.0 Nasal Cannula 2.0 Nasal Cannula 2.0 07/03/19 20:00 100.4 105 28 148/56 (86) 98 07/03/19 19:17 96 Nasal Cannula 2.0 28 07/03/19 19:16 89 18 96 Nasal Cannula 2.0 28 07/03/19 19:00 109 07/03/19 16:00 98.9 102 20 130/52 (78) 98 07/03/19 16:00 105 07/03/19 16:00 2.0 07/03/19 16:00 Nasal Cannula 2.0 Nasal Cannula 2.0 Nasal Cannula 2.0 I&O Intake and Output 07/03/19 07/04/19 19:00 07:00 Intake Total 850 ml 880 ml Output Total 50 ml Balance 800 ml 880 ml Free Water 150 ml 100 ml IV Total 300 ml 300 ml Tube Feeding 400 ml 480 ml Hemodialysis 0 ml Output Urine Total 50 ml Hemodialysis UF 0 ml # Bowel Movements 2 3 Dressing: dry Wound: clean Cardiovascular: RSR Respiratory: clear Abdomen: soft, non-tender, present bowel sounds Extremities: no edema, no tenderness, no cyanosis Laboratory Tests Test 07/04/19 04:50 White Blood Count 21.4 K/UL (4.8-10.8) H Red Blood Count 2.75 M/UL (4.20-5.40) L Hemoglobin 8.2 G/DL (12.0-16.0) L Hematocrit 23.9 % (37.0-47.0) L Mean Corpuscular Volume 87 FL (80-99) Mean Corpuscular Hemoglobin 29.6 PG (27.0-31.0) Mean Corpuscular Hemoglobin Concent 34.1 G/DL (32.0-36.0) Red Cell Distribution Width 13.6 % (11.6-14.8) Platelet Count 197 K/UL (150-450) Mean Platelet Volume 8.7 FL (6.5-10.1) Neutrophils (%) (Auto) % (45.0-75.0) Lymphocytes (%) (Auto) % (20.0-45.0) Monocytes (%) (Auto) % (1.0-10.0) Eosinophils (%) (Auto) % (0.0-3.0) Basophils (%) (Auto) % (0.0-2.0) Differential Total Cells Counted 100 Neutrophils % (Manual) 92 % (45-75) H Lymphocytes % (Manual) 4 % (20-45) L Monocytes % (Manual) 3 % (1-10) Eosinophils % (Manual) 1 % (0-3) Basophils % (Manual) 0 % (0-2) Band Neutrophils 0 % (0-8) Platelet Estimate Adequate Platelet Morphology Normal Hypochromasia 2+ Anisocytosis 1+ Spherocytes 1+ Sodium Level 134 MMOL/L (136-145) L Potassium Level 3.4 MMOL/L (3.5-5.1) L Chloride Level 95 MMOL/L (98-107) L Carbon Dioxide Level 21 MMOL/L (21-32) Anion Gap 18 mmol/L (5-15) H Blood Urea Nitrogen 68 mg/dL (7-18) H Creatinine 3.7 MG/DL (0.55-1.30) H Estimat Glomerular Filtration Rate 14.1 mL/min (>60) Glucose Level 133 MG/DL (74-106) H Calcium Level 8.8 MG/DL (8.5-10.1) Total Bilirubin 1.0 MG/DL (0.2-1.0) Aspartate Amino Transf (AST/SGOT) 64 U/L (15-37) H Alanine Aminotransferase (ALT/SGPT) 71 U/L (12-78) Alkaline Phosphatase 82 U/L (46-116) Total Protein 6.1 G/DL (6.4-8.2) L Albumin 3.3 G/DL (3.4-5.0) L Globulin 2.8 g/dL Albumin/Globulin Ratio 1.2 (1.0-2.7) Plan Problems: (1) Fall Assessment & Plan: 88 year old female s/p fall now with renal insufficiency requiring HD spoke with family. she has known CKD multiple decubitus ulcers from being down malnutrition line placed see documentation trend labs abx HD thank you prognosis guarded family at bedside cxr noted pna worsening R cheek pressure injury resolved. Unstageable pressure injury R shoulder now has 90% necrosis,surrounding 10% pink granulation(L()4.1cm x (W)3.3cm. No odor or exudate noted.No erythema or induration periwound. Reabsorbed DTPI R Humerus. Base of wound is dry,brown with pink epithelial at the distal base of wound(L)9.4cm x (W)3.1cm. DTPI R elbow has resolved. Scattered dry brown peeling skin noted. No erythema noted. DTPI sacrum less indurated (L)4.5cm x (W)6cm. Small opening at marco a cleft that is corby and moist(L)1.5cm x (W)0.3cm. No exudate noted. L ischial DTPI reabsorbed(L)6cm x (W)7cm. Base of injury black. No erythema or evidence of further breakdown periwound. Unstageable pressure injury R hip(L)8.9cm x (W)14.2cm. Base of wound has 50% slough ,25% soft necrosis, 25% pink granulation along borders.Edges adherent to base of wound. No odor or exudate noted. DTPI medial/posterior L heel reabsorbed. Base of injury is boggy but blanchable. Unstageable Pressure Injury L Hallux resolving.(L)4.3cm x (W)3.7cm. Base of wound is 60% necrotic,10% slough with surrounding 30% pink granulation. Marginal erythema periwound. Small amt purulent exudate noted. No odor noted. DTPI medial L malleolus reabsorbed. Dry brown patch noted. Reabsorbed blood blisters L 1st,2nd and 3rd metatarsals. Dry brown patches noted dorsally all 3 metatarsals. R heel DTPI resolving. R heel is boggy but blanchable. Unstageable pressure injury lateral R malleolus. Base of wound has scattered slough. Borders are macerated with marginal erythema periwound.(L)0.7cm x (W) 1.3cm. No erythema or fluctuance periwound. DTPI distal/lateral R foot resolving. Base of injury is maroon /fluctuant. No erythema or induration periwound. DTPI lateral R 5th metatarsal resolved. Wound care provided. Wound Tx are effective and continued as ordered. All wound prevention protocols continued as care-planned. Family member at bedside and updated on wound progress. DAILY ESTIMATED NEEDS: Needs based on Wounds, 51.8kg 30-35 kcals/kg [id number] total kcals 1.25-1.5 g protein/kg 65-78 g total protein 25-30ml/kcal mL/kg 9723-2502 total fluid mLs NUTRITION DIAGNOSIS: * Increased kcal and pro needs r/t wound healing and renal failure as evidenced by, s/p fall w/ pressure wounds per MD, refer to WC eval, ARF needing HD. * Swallowing difficulty R/T dysphagia as evidenced by s/p NGT placement, plan for PEG placement w/ consent and medical clearance, TF held for possible pancreatitis. CURRENT TF:NPO- TF HELD FOR POSSIBLE PANCREATITIS ENTERAL NUTRITION RECOMMENDATIONS: NEPRO @36ml/hr x24 hrs to provide 864ml, 1555 kcal, 70g pro, 628ml free H2O free H2O - As medically appropriate, resume TF - Start @16ml/hr for 8 hrs, advance as tolerated 5ml/hr q4-6 hrs to goal. - Flush per MD/ HOB Over 30 degrees - PT AT HIGH RISK FOR REFEEDING SYNDROME, MONITOR LYTES DAILY, REPLETE NEEDED ADDITIONAL RECOMMENDATIONS: 1) Monitor ability to resume TF NGT feeds held 06/30 for possible pancreatitis. If unable to feed via GI, consider initiating TPN due to proloned NPO, minimal intake status 2) WOUND CARE: W/ active TF order add VASQUEZ in 4oz H2O BID 3) Rec added dextrose when NPO 4) Calibrated bed scale wts daily 5) Monitor lytes closely w/ TF- high risk for refeeding syndrome (2) Altered level of consciousness (3) Fracture of lumbar spine Assessment & Plan: Lungs: There is increased density at the lung bases likely atelectasis. Aorta is moderately calcified. There is a small hiatal hernia.. Liver: Grossly unremarkable. There is artifact limiting evaluation in addition to the fact that no IV or oral contrast was given for this examination. Gallbladder/biliary system: Grossly unremarkable. Spleen: Unremarkable Pancreas: In the area of the pancreatic tail there is a 1.6 cm nodular density which may be cystic. Further evaluation is recommended. Kidneys/Bladder: Vascular calcifications are quite extensive and extend to the hilum of both kidneys. Evaluation for punctate nonobstructive stones is limited in this setting but no definite stones seen. There is no hydronephrosis. Extensive breathing motion limiting evaluation.. Adrenal glands: Unremarkable Bowel: Patient's prior partial bowel resection in the right lower abdomen with anastomotic sutures noted. There is no evidence of a bowel obstruction or inflammatory changes. Appendix is not seen definitely but there are no signs of appendicitis. A few diverticula are noted within the colon. Aorta/IVC: There is a severe calcification of aorta and multiple branches of the aorta. Peritoneum: There is no free fluid. Bones: Bones are diffusely osteopenic. Multiple compression fracture deformities of several vertebra noted including lower thoracic vertebra and L1. There is narrowing of intervertebral discs and accompanying endplate osteophyte formation. Hypertrophied facet joints also demonstrated. Scoliosis of the lower thoracic spine convex to the right and left convex lumbar scoliosis noted. IMPRESSION: No acute findings appreciated. Study limited by the lack of intravenous oral contrast as well as extensive motion artifact. 1.6 cm probable cystic lesion in the pancreatic tail. This requires further evaluation with the contrast CT or MR. Status post previous partial bowel resection. 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 Degenerative changes as described above. (4) Rhabdomyolysis (5) KAREN (acute kidney injury) (6) Decubitus skin ulcer Assessment & Plan: Pt presented on admission with multiple pressure injuries. Pt's niece Sarah stated pt lives alone and found pt laying on her R side on floor in patient's home.Niece believes pt has been laying on floor for approx 5 days. DTPI noted to R cheek. Base of wound is purple with marginal erythema along borders.(L)1.2cm x (W)1.6cm. Unstageable pressure injury R shoulder. Base of wound is 100% necrotic with marginal erythema along borders.(L)4.8cm x (W).3.5cm . DTPI R humerus. Base of wound is fluctuant and maroon in colour with surrounding erythema. (L)10.6cm x (W)3.1cm. DTPI R elbow.Base of wound is indurated with scattered areas that are purple in colour. An area of fluctuance in center. Marginal erythema along borders.(L) 5.3cm x (W)10.4cm. Partially opened Sacral DTPI. Base of wound is purple with surrounding erythema. Partial open wound cleft that is corby and moist.(L)5.3cm x (W) 4.5cm.NO odor or exudate noted. Non-blanching erythema periwound. DTPI L ischium . Base of wound is purple and indurated.(L)6cm x (W)7.5cm. Unstageable pressure injury R hip. Base of wound is 75% necrotic, 25% mixed erythema and slough. Borders are moist,soft with scattered areas that are black. Periwound is dusky and indurated.No odor or exudate noted. DTPI at posterior and medial aspect of L heel. Base of wound is maroon and fluctuant(L)4cm x (W)7cm. Unstageable pressure injury L Hallux. Base of wound is 100% necrotic but soft. Borders are erythematous. Periwound without induration or fluctuance.(L)2.5cm x (W)3cm. DTPI medial L malleolus. Base of wound fluctuant and maroon in colour.(L) 0.3cm x (W)1.2cm. DTPI medial L malleolus. Base of wound fluctuant and maroon in colour with Marginal erythema along borders.(L)0.3cm x (W)1.2cm. Intact blood filled blisters noted to L 1st Metatarsal laterally and head of metatarsal. Intact blood filled blisters noted to heads of L 2nd and L 3rd metatarsals. DTPI noted to posterior and lateral R Heel. Posterior R heel is maroon in colour and fluctuant at base. Laterally ,R heel is black and fluctuant at base.Periwound is boggy and non-blanchable.(L)7cm x (W)8cm. Unstageable pressure injury lateral R malleolus. Base of wound is 100% necrotic and dry.Marginal erythema along borders.Periwound is fluctuant and erythematous( L)1.2cm x (W)1.5cm. DTPI distal/lateral R foot. Base of wound is fluctuant and maroon in colour.(L) 1.3cm x (W)1.7cm. DTPI lateral R 5th metatarsal. Base of wound is maroon and fluctuant with marginal erythema along borders .(L)0.7cm x (W)1.1cm Tx.Plan: Cleanse Wound R shoulder with Saline. Apply Therahoney. Apply Cavilon Skin barrier periwound. Cover with Optifoam drsg every 3 days and prn. Cleanse R hip wound with Saline. Apply Therahoney with 4x4 Gauze. Apply Moisture Barrier Paste periwound.Cover with Optifoam drsg. Daily and prn. Apply Moisture Barrier Paste to Sacral wound and L Ischium. Cover each wound with Optifoam drsg every 3 days and prn. Apply Betadine to R humerus and R elbow . Cover each wound with Optifoam drsg. Change every 3 days and prn. Apply Betadine to wounds R heel, R malleolus and R foot . Cover each wound with Optifoam drsg every 3 days and prn. Apply Betadine to wounds L heel ,L medial malleolus and L foot. Cover each wound with Optifoam drsgs every 3 Days and prn. Air Fluidized Mattress. Reposition at least every 2hours or as tolerated. Place Pillow between knees. Off-load heels with pillow. Anshul Nava Jul 04, 2019 15:31
--- NOTE | 2019-07-04 18:11 | Nephrology Progress Note ---
Assessment/Plan Plan #acute renal failure on possible CKD- due to rhabdo- UA with + RBC- concerns for developing ATN #Uremia #complete opacification of the left hemithorax- likely aspiration pneumonia #lactic acidosis #Hypernatremia- improved #AMS #elevated liver enzyme - HD tomorrow - assess need for HD daily - continue lasix 40 IV daily - PEG placement tomorrow - pulmonary eval - on room air now - renal US-> No obstructive nephropathy. - monitor liver enzymes and lipase - Gi eval - continue with abx per ID Subjective Subjective s/p HD yesterday plan for PEG tomorrow BP stable on NC CT chest: Extensive airspace consolidation in the left lung involving the left perihilar, upper lobe and left lower lobe. Findings suspicious for pneumonia, especially aspiration given the abrupt onset. Please correlate clinically. Partial atelectasis of the left lower lobe also noted Objective Objective Last 24 Hour Vital Signs Date Time Temp Pulse Resp B/P (MAP) Pulse Ox O2 Delivery O2 Flow Rate FiO2 07/04/19 16:00 98.8 95 19 105/67 (80) 95 07/04/19 15:24 98 07/04/19 12:45 98.0 95 19 129/62 (84) 95 07/04/19 12:30 Nasal Cannula 2.0 07/04/19 11:47 93 07/04/19 08:00 Nasal Cannula 2.0 Nasal Cannula 2.0 Nasal Cannula 2.0 07/04/19 08:00 2.0 07/04/19 08:00 98.2 97 19 138/59 (85) 98 07/04/19 08:00 117 07/04/19 07:53 118 20 96 Nasal Cannula 2.0 28 07/04/19 07:53 96 Nasal Cannula 2.0 28 07/04/19 06:00 Nasal Cannula 2.0 Nasal Cannula 2.0 Nasal Cannula 2.0 07/04/19 04:00 98.2 87 20 120/47 (71) 98 07/04/19 04:00 2.0 07/04/19 04:00 Nasal Cannula 2.0 Nasal Cannula 2.0 Nasal Cannula 2.0 07/04/19 03:37 105 07/04/19 02:10 98.7 07/04/19 01:38 95 121/50 (73) 07/04/19 00:00 2.0 07/04/19 00:00 98.7 95 20 111/63 (79) 98 07/04/19 00:00 Nasal Cannula 2.0 Nasal Cannula 2.0 Nasal Cannula 2.0 07/03/19 23:31 95 07/03/19 20:52 99.0 07/03/19 20:52 99.0 92 07/03/19 20:00 2.0 07/03/19 20:00 Nasal Cannula 2.0 Nasal Cannula 2.0 Nasal Cannula 2.0 07/03/19 20:00 100.4 105 28 148/56 (86) 98 07/03/19 19:17 96 Nasal Cannula 2.0 28 07/03/19 19:16 89 18 96 Nasal Cannula 2.0 28 07/03/19 19:00 109 Intake and Output 07/03/19 07/04/19 19:00 07:00 Intake Total 850 ml 880 ml Output Total 50 ml Balance 800 ml 880 ml Free Water 150 ml 100 ml IV Total 300 ml 300 ml Tube Feeding 400 ml 480 ml Hemodialysis 0 ml Output Urine Total 50 ml Hemodialysis UF 0 ml # Bowel Movements 2 3 Laboratory Tests 07/04/19 04:50: White Blood Count 21.4H, Red Blood Count 2.75L, Hemoglobin 8.2L, Hematocrit 23.9L, Mean Corpuscular Volume 87, Mean Corpuscular Hemoglobin 29.6, Mean Corpuscular Hemoglobin Concent 34.1, Red Cell Distribution Width 13.6, Platelet Count 197, Mean Platelet Volume 8.7, Neutrophils (%) (Auto) , Lymphocytes (%) ( Auto) , Monocytes (%) (Auto) , Eosinophils (%) (Auto) , Basophils (%) (Auto) , Differential Total Cells Counted 100, Neutrophils % (Manual) 92H, Lymphocytes % (Manual) 4L, Monocytes % (Manual) 3, Eosinophils % (Manual) 1, Basophils % ( Manual) 0, Band Neutrophils 0, Platelet Estimate Adequate, Platelet Morphology Normal, Hypochromasia 2+, Anisocytosis 1+, Spherocytes 1+, Sodium Level 134L, Potassium Level 3.4L, Chloride Level 95L, Carbon Dioxide Level 21, Anion Gap 18H , Blood Urea Nitrogen 68H, Creatinine 3.7H, Estimat Glomerular Filtration Rate 14.1, Glucose Level 133H, Calcium Level 8.8, Total Bilirubin 1.0, Aspartate Amino Transf (AST/SGOT) 64H, Alanine Aminotransferase (ALT/SGPT) 71, Alkaline Phosphatase 82, Total Protein 6.1L, Albumin 3.3L, Globulin 2.8, Albumin/ Globulin Ratio 1.2 Height (Feet): 5 Height (Inches): 4.00 Weight (Pounds): 115 Objective General Appearance: lethargic, confused, on bipap Lines, tubes and drains: peripheral HEENT: normocephalic, atraumatic Neck: non-tender Respiratory/Chest: minimal breath sounds on the left Cardiovascular/Chest: normal peripheral pulses, normal rate, regular rhythm, regularly irregular Abdomen: non tender, soft Rory Oconnor M.D. Jul 04, 2019 18:11
[2019-07-04 19:01] LABS: APPEARANCE,URINE SLIGHTLY CLOUDY; BILIRUBIN, URINE NEGATIVE (NEGATIVE); GLUCOSE, URINE (UA) NEGATIVE (NEGATIVE); KETONES,URINE 1+ (NEGATIVE); LEUKOCYTE ESTERASE ,URINE 3+ (NEGATIVE); NITRITE,URINE NEGATIVE (NEGATIVE); PH,URINE 5 (4.5-8.0); PROTEIN,URINE 4+ (NEGATIVE); UROBILINOGEN,URINE NORMAL MG/DL (0.0-1.0)
[2019-07-04 19:05] LABS: COLOR,URINE BROWN
[2019-07-04] MEDS ORDERED: DiphenhydrAMINE 25mg Tab ORAL PRN (20:00)
[2019-07-04] MEDS ORDERED: Acetaminophen 650mg/20.3ml NG PRN (20:30)
[2019-07-04] MEDS: Dyna-Hex 2% Top Sol 2oz TOPIC SCH (20:53)
--- NOTE | 2019-07-04 21:13 | Cardiology Progress Note ---
Assessment/Plan Status: stable Assessment/Plan Assessment/Plan Status: stable Assessment/Plan: Assessment Elevated troponin Syncope. Elevated LFT KAREN/CKD Rhabdomyolysis Plan d/c Trend troponin Monitor on telemetry Echocardiogram reviewed Stress test prior to discharge Hold heparin PEG tube placement - clear to proceed Maintain HD Abx per ID/pulm Pulmonary toilet Supportive care Clear to proceed with PEG tube Subjective Cardiovascular: Reports: no symptoms Respiratory: Reports: no symptoms Gastrointestinal/Abdominal: Reports: no symptoms Genitourinary: Reports: no symptoms Subjective No distress, on roon air, no fevers, BP elevated, creatinine improved, for PEG TOMORROW Objective Last 24 Hour Vital Signs Date Time Temp Pulse Resp B/P (MAP) Pulse Ox O2 Delivery O2 Flow Rate FiO2 07/04/19 20:00 98.9 100 20 99/51 (67) 99 07/04/19 19:16 99 Nasal Cannula 2.0 28 07/04/19 19:16 102 20 99 Nasal Cannula 2.0 28 07/04/19 16:00 98.8 95 19 105/67 (80) 95 07/04/19 15:24 98 07/04/19 12:45 98.0 95 19 129/62 (84) 95 07/04/19 12:30 Nasal Cannula 2.0 07/04/19 11:47 93 07/04/19 08:00 Nasal Cannula 2.0 Nasal Cannula 2.0 Nasal Cannula 2.0 07/04/19 08:00 2.0 07/04/19 08:00 98.2 97 19 138/59 (85) 98 07/04/19 08:00 117 07/04/19 07:53 118 20 96 Nasal Cannula 2.0 28 07/04/19 07:53 96 Nasal Cannula 2.0 28 07/04/19 06:00 Nasal Cannula 2.0 Nasal Cannula 2.0 Nasal Cannula 2.0 07/04/19 04:00 98.2 87 20 120/47 (71) 98 07/04/19 04:00 2.0 07/04/19 04:00 Nasal Cannula 2.0 Nasal Cannula 2.0 Nasal Cannula 2.0 07/04/19 03:37 105 07/04/19 02:10 98.7 07/04/19 01:38 95 121/50 (73) 07/04/19 00:00 2.0 07/04/19 00:00 98.7 95 20 111/63 (79) 98 07/04/19 00:00 Nasal Cannula 2.0 Nasal Cannula 2.0 Nasal Cannula 2.0 07/03/19 23:31 95 General Appearance: no apparent distress, cachetic, lethargic EENT: PERRL/EOMI, normal ENT inspection, TMs normal, pharynx normal Neck: non-tender, normal alignment, supple, normal inspection, no JVD Rhythm: NSR Cardiovascular: normal peripheral pulses, normal rate Respiratory/Chest: chest wall non-tender, lungs clear, normal breath sounds, no respiratory distress, no accessory muscle use Abdomen: normal bowel sounds, non tender, soft, no organomegaly, no mass Extremities: normal range of motion, non-tender, normal inspection, no calf tenderness, no swelling 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, no motor/sensory deficits Intake and Output 07/03/19 07/04/19 19:00 07:00 Intake Total 850 ml 880 ml Output Total 50 ml Balance 800 ml 880 ml Free Water 150 ml 100 ml IV Total 300 ml 300 ml Tube Feeding 400 ml 480 ml Hemodialysis 0 ml Output Urine Total 50 ml Hemodialysis UF 0 ml # Bowel Movements 2 3 Laboratory Tests Test 07/04/19 04:50 07/04/19 18:29 White Blood Count 21.4 K/UL (4.8-10.8) H Red Blood Count 2.75 M/UL (4.20-5.40) L Hemoglobin 8.2 G/DL (12.0-16.0) L Hematocrit 23.9 % (37.0-47.0) L Mean Corpuscular Volume 87 FL (80-99) Mean Corpuscular Hemoglobin 29.6 PG (27.0-31.0) Mean Corpuscular Hemoglobin Concent 34.1 G/DL (32.0-36.0) Red Cell Distribution Width 13.6 % (11.6-14.8) Platelet Count 197 K/UL (150-450) Mean Platelet Volume 8.7 FL (6.5-10.1) Neutrophils (%) (Auto) % (45.0-75.0) Lymphocytes (%) (Auto) % (20.0-45.0) Monocytes (%) (Auto) % (1.0-10.0) Eosinophils (%) (Auto) % (0.0-3.0) Basophils (%) (Auto) % (0.0-2.0) Differential Total Cells Counted 100 Neutrophils % (Manual) 92 % (45-75) H Lymphocytes % (Manual) 4 % (20-45) L Monocytes % (Manual) 3 % (1-10) Eosinophils % (Manual) 1 % (0-3) Basophils % (Manual) 0 % (0-2) Band Neutrophils 0 % (0-8) Platelet Estimate Adequate Platelet Morphology Normal Hypochromasia 2+ Anisocytosis 1+ Spherocytes 1+ Sodium Level 134 MMOL/L (136-145) L Potassium Level 3.4 MMOL/L (3.5-5.1) L Chloride Level 95 MMOL/L (98-107) L Carbon Dioxide Level 21 MMOL/L (21-32) Anion Gap 18 mmol/L (5-15) H Blood Urea Nitrogen 68 mg/dL (7-18) H Creatinine 3.7 MG/DL (0.55-1.30) H Estimat Glomerular Filtration Rate 14.1 mL/min (>60) Glucose Level 133 MG/DL (74-106) H Calcium Level 8.8 MG/DL (8.5-10.1) Total Bilirubin 1.0 MG/DL (0.2-1.0) Aspartate Amino Transf (AST/SGOT) 64 U/L (15-37) H Alanine Aminotransferase (ALT/SGPT) 71 U/L (12-78) Alkaline Phosphatase 82 U/L (46-116) Total Protein 6.1 G/DL (6.4-8.2) L Albumin 3.3 G/DL (3.4-5.0) L Globulin 2.8 g/dL Albumin/Globulin Ratio 1.2 (1.0-2.7) Urine Color Brown Urine Appearance Slightly cloudy Urine pH 5 (4.5-8.0) Urine Specific [place] 1.010 (1.005-1.035) Urine Protein 4+ (NEGATIVE) H Urine Glucose (UA) Negative (NEGATIVE) Urine Ketones 1+ (NEGATIVE) H Urine Blood 5+ (NEGATIVE) H Urine Nitrite Negative (NEGATIVE) Urine Bilirubin Negative (NEGATIVE) Urine Urobilinogen Normal MG/DL (0.0-1.0) Urine Leukocyte Esterase 3+ (NEGATIVE) H Urine RBC 5-10 /HPF (0 - 2) H Urine WBC 40-60 /HPF (0 - 2) H Urine Squamous Epithelial Cells Few /LPF (NONE/OCC) Urine Bacteria Many /HPF (NONE) H Urine Yeast Moderate /HPF (NONE) H Melchor Cerna MD Jul 04, 2019 21:13
[2019-07-05] VITALS (8 sets, daily range): BP systolic 98–135; BP diastolic 59–78
--- NOTE | 2019-07-05 00:13 | Psych Consult Progress Note ---
Psychiatry Progress Note Psychiatry Progress Note Medications Current Medications Medications (Trade) Dose Ordered Sig/Joan Route PRN Reason Start Time Stop Time Status Last Admin Dose Admin Acetaminophen (Tylenol) 650 mg Q4H PRN NG Mild Pain/Temp > 100.5 07/04/19 20:30 08/01/19 12:29 Acetylcysteine (Mucomyst) 100 mg Q4H PRN HHN Shortness of Breath 07/04/19 18:00 08/03/19 17:59 Albumin Human 100 ml @ 100 mls/hr NEEDED PRN IV DIALYSIS 07/04/19 19:00 08/03/19 18:59 Chlorhexidine Gluconate (Cari-Hex 2%) 1 applic DAILY@2000 TOPIC 07/04/19 20:00 07/26/19 19:59 07/04/19 20:53 Dextrose (Dextrose 50%) 25 ml Q30M PRN IV Hypoglycemia 07/04/19 20:00 07/24/19 19:51 Dextrose (Dextrose 50%) 50 ml Q30M PRN IV Hypoglycemia 07/04/19 20:00 07/24/19 19:51 Diphenhydramine HCl (Benadryl) 25 mg Q6H PRN ORAL Itching/Pruritis 07/04/19 20:00 07/24/19 19:51 Furosemide (Lasix) 40 mg DAILY IV 07/05/19 09:00 07/30/19 19:59 Gabapentin (Neurontin) 300 mg BID GT 07/05/19 09:00 08/01/19 17:59 Hydromorphone HCl (Dilaudid) 0.5 mg Q2H PRN IVP Severe Pain (Pain Scale 7-10) 07/04/19 20:30 07/09/19 12:29 Linezolid 300 ml @ 300 mls/hr EVERY 12 HOURS IVPB 07/04/19 21:00 07/07/19 20:59 07/04/19 20:54 Meropenem 500 mg/ Sodium Chloride 50 ml @ 100 mls/hr Q24HRS IVPB 07/05/19 17:30 07/08/19 17:29 Ondansetron HCl (Zofran) 4 mg Q4H PRN IVP Nausea & Vomiting 07/04/19 20:00 08/02/19 19:59 Pantoprazole (Protonix) 40 mg DAILY IVP 3/13/20 09:00 07/30/19 08:59 Neurological/Psychiatric: Reports: anxiety, depressed, emotional problems Allergies: Coded Allergies: No Known Allergies (Unverified , 06/24/19) Objective Data Height (Feet): 5 Height (Inches): 4.00 Weight (Pounds): 115 General Appearance: WD/WN, alert, confused, agitated Behavior Mannerisms: poor eye contact Mental Status Exam - Mood: irritable, angry Mental Status Exam - Thought P: illogical Mental Status Exam - Suicidal: not present, no plan Assessment/Plan Status: stable Assessment/Plan: waxing and waning consciousness, disoriented. Mood is agitated. Affect is flat. Thought process is concrete. Thought content, no suicidal or homicidal ideation. Cognition is impaired. Insight and judgment impaired. ASSESSMENT: AXIS I: Acute toxic encephalopathy. AXIS II: Deferred. AXIS III: Status post fall. AXIS IV: Low AXIS V: 20. PLAN: 1. We will start the patient on low dose of Neurontin. 2. The patient may benefit from low dose of antipsychotics. 3. We will continue to follow and readjust the medications. Jaime Jackson MD Jul 05, 2019 00:13
[2019-07-05 06:49] LABS: HEMATOCRIT 24.2 % (37.0-47.0); HEMOGLOBIN 8.2 G/DL (12.0-16.0); MEAN CORPUSCULAR VOLUME 87 FL (80-99); PLATELET COUNT 258 K/UL (150-450); RED BLOOD COUNT 2.78 M/UL (4.20-5.40); RED CELL DISTRIBUTION WIDTH 13.1 % (11.6-14.8); WHITE BLOOD COUNT 18.7 K/UL (4.8-10.8)
[2019-07-05 07:14] LABS: AMYLASE 220 U/L (25-115); ANION GAP 18 mmol/L (5-15); BLOOD UREA NITROGEN 102 mg/dL (7-18); CALCIUM 8.9 MG/DL (8.5-10.1); CARBON DIOXIDE 21 MMOL/L (21-32); CHLORIDE 93 MMOL/L (98-107); CREATININE 5.2 MG/DL (0.55-1.30); POTASSIUM 4.3 MMOL/L (3.5-5.1); SODIUM 132 MMOL/L (136-145)
--- NOTE | 2019-07-05 07:25 | Hematology/Onc Progress Note ---
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 Otherwise unremarkable pancreas --> as per gi, may need further eval with endsocopy --> with pancreatitis at this time, may be obscuring picture --> reimage in short order, 6 months --> ca19.9 60 but may be elevated due to pancreatitis --> cea of 10 # Leukocytosis/elevated white blood cell count, unspecified likely related to underlying stress reaction, smoking v more likely infection in this case, bacteremia --> have reviewed peripheral smear and bandemia/neutrophilia noted --> continue antibiotics if they have been started by ID team --> monitor for resolution --> as per id care, on broad spectrum abx --> wbc 30-->21-->18.7 --> abx: bethany # Anemia of chronic disease due to underlying chronic medical issues, multifactorial v Gi bleed --> Anemia workup has been ordered, rule out gi bleed --> No evidence of hemolysis is noted, peripheral smear has been reviewed. --> Hgb goal >7. Transfuse prn. --> Epogen has been started --> Medications have been reviewed --> low threshold for gi evaluation in case has occult + --> bone marrow biopsy is not indicated given the other more likely causes # Thrombocytopenia - potential causes multifactorial, evaluate liver and viral etiologies to begin, in this case due to sepsisand pancreatitis --> Hep panel and HIV are both negative --> US abd to evaluate for cirrhosis and hsm --> pleural effusions noted, hsm is neg --> Peripheral smear ordered to evaluate for blasts /schistocytes --> abx and other meds have been reviewed --> ok for ppx if plt >50k w/ either heparin or lovenox # Acute renal failure - on HD UF --> hd with 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 Greatly appreciate consultation. Subjective Allergies: Coded Allergies: No Known Allergies (Unverified , 06/24/19) Subjective 07/02: resting in bed, appears to be comfortable, no bleeding, on merop, no events 07/03: is crying with ng tube, no bleeding, labs noted, no night swaets, lytes to be replted 07/04: hgb 8.2, hd for today, hep and hiv negative, nc, on bethany Objective Objective Current Medications Medications (Trade) Dose Ordered Sig/Joan Route PRN Reason Start Time Stop Time Status Last Admin Dose Admin Acetaminophen (Tylenol) 650 mg Q4H PRN NG Mild Pain/Temp > 100.5 07/04/19 20:30 08/01/19 12:29 Acetylcysteine (Mucomyst) 100 mg Q4H PRN HHN Shortness of Breath 07/04/19 18:00 08/03/19 17:59 Albumin Human 100 ml @ 100 mls/hr NEEDED PRN IV DIALYSIS 07/04/19 19:00 08/03/19 18:59 Chlorhexidine Gluconate (Cari-Hex 2%) 1 applic DAILY@2000 TOPIC 07/04/19 20:00 07/26/19 19:59 07/04/19 20:53 Dextrose (Dextrose 50%) 25 ml Q30M PRN IV Hypoglycemia 07/04/19 20:00 07/24/19 19:51 Dextrose (Dextrose 50%) 50 ml Q30M PRN IV Hypoglycemia 07/04/19 20:00 07/24/19 19:51 Diphenhydramine HCl (Benadryl) 25 mg Q6H PRN ORAL Itching/Pruritis 07/04/19 20:00 07/24/19 19:51 Furosemide (Lasix) 40 mg DAILY IV 07/05/19 09:00 07/30/19 19:59 Gabapentin (Neurontin) 300 mg BID GT 07/05/19 09:00 08/01/19 17:59 Hydromorphone HCl (Dilaudid) 0.5 mg Q2H PRN IVP Severe Pain (Pain Scale 7-10) 07/04/19 20:30 07/09/19 12:29 Linezolid 300 ml @ 300 mls/hr EVERY 12 HOURS IVPB 07/04/19 21:00 07/07/19 20:59 07/04/19 20:54 Meropenem 500 mg/ Sodium Chloride 50 ml @ 100 mls/hr Q24HRS IVPB 07/05/19 17:30 07/08/19 17:29 Ondansetron HCl (Zofran) 4 mg Q4H PRN IVP Nausea & Vomiting 07/04/19 20:00 08/02/19 19:59 Pantoprazole (Protonix) 40 mg DAILY IVP 07/05/19 09:00 07/30/19 08:59 Last 24 Hour Vital Signs Date Time Temp Pulse Resp B/P (MAP) Pulse Ox O2 Delivery O2 Flow Rate FiO2 07/05/19 04:00 98.7 92 22 100/59 (73) 98 07/05/19 00:00 98.9 96 23 98/64 (75) 98 07/04/19 21:00 Nasal Cannula 2.0 Nasal Cannula 2.0 07/04/19 20:00 98.9 100 20 99/51 (67) 99 07/04/19 19:16 99 Nasal Cannula 2.0 28 07/04/19 19:16 102 20 99 Nasal Cannula 2.0 28 07/04/19 16:00 98.8 95 19 105/67 (80) 95 07/04/19 15:24 98 07/04/19 12:45 98.0 95 19 129/62 (84) 95 07/04/19 12:30 Nasal Cannula 2.0 07/04/19 11:47 93 07/04/19 08:00 Nasal Cannula 2.0 Nasal Cannula 2.0 Nasal Cannula 2.0 07/04/19 08:00 2.0 07/04/19 08:00 98.2 97 19 138/59 (85) 98 07/04/19 08:00 117 07/04/19 07:53 118 20 96 Nasal Cannula 2.0 28 07/04/19 07:53 96 Nasal Cannula 2.0 28 07/04/19 06:00 Nasal Cannula 2.0 Nasal Cannula 2.0 Nasal Cannula 2.0 07/04/19 04:00 98.2 87 20 120/47 (71) 98 07/04/19 04:00 2.0 07/04/19 04:00 Nasal Cannula 2.0 Nasal Cannula 2.0 Nasal Cannula 2.0 07/04/19 03:37 105 07/04/19 02:10 98.7 07/04/19 01:38 95 121/50 (73) 07/04/19 00:00 2.0 07/04/19 00:00 98.7 95 20 111/63 (79) 98 07/04/19 00:00 Nasal Cannula 2.0 Nasal Cannula 2.0 Nasal Cannula 2.0 07/03/19 23:31 95 07/03/19 20:52 99.0 07/03/19 20:52 99.0 92 07/03/19 20:00 2.0 07/03/19 20:00 Nasal Cannula 2.0 Nasal Cannula 2.0 Nasal Cannula 2.0 07/03/19 20:00 100.4 105 28 148/56 (86) 98 07/03/19 19:17 96 Nasal Cannula 2.0 28 07/03/19 19:16 89 18 96 Nasal Cannula 2.0 28 07/03/19 19:00 109 07/03/19 16:00 98.9 102 20 130/52 (78) 98 07/03/19 16:00 105 07/03/19 16:00 2.0 07/03/19 16:00 Nasal Cannula 2.0 Nasal Cannula 2.0 Nasal Cannula 2.0 07/03/19 12:00 Nasal Cannula 2.0 Nasal Cannula 2.0 Nasal Cannula 2.0 07/03/19 12:00 99.4 99 19 147/56 (86) 97 07/03/19 12:00 2.0 07/03/19 11:38 98 07/03/19 08:00 98.8 95 19 121/52 (75) 97 07/03/19 08:00 2.0 07/03/19 08:00 Nasal Cannula 2.0 Nasal Cannula 2.0 Nasal Cannula 2.0 07/03/19 07:46 116 Intake and Output 07/04/19 07/05/19 19:00 07:00 Intake Total 250 ml Output Total 90 ml 50 ml Balance 160 ml -50 ml IV Total 50 ml Tube Feeding 200 ml Output Urine Total 90 ml 50 ml # Voids 1 # Bowel Movements 3 1 Labs Test 07/02/19 21:35 07/03/19 04:10 07/04/19 04:50 07/04/19 18:29 Carcinoembryonic Antigen 10.0 ng/mL (0.0-4.7) CA 19-9 Antigen 60 U/mL (0-35) Hepatitis A IgM Antibody Negative (Negative) Hepatitis B Surface Antigen Negative (Negative) Hepatitis B Core IgM Antibody Negative (Negative) Hepatitis C Antibody <0.1 s/co ratio HIV (1&2) Antibody Rapid Negative (NEGATIVE) White Blood Count 23.9 K/UL (4.8-10.8) 21.4 K/UL (4.8-10.8) Red Blood Count 2.97 M/UL (4.20-5.40) 2.75 M/UL (4.20-5.40) Hemoglobin 8.7 G/DL (12.0-16.0) 8.2 G/DL (12.0-16.0) Hematocrit 25.6 % (37.0-47.0) 23.9 % (37.0-47.0) Mean Corpuscular Volume 86 FL (80-99) 87 FL (80-99) Mean Corpuscular Hemoglobin 29.2 PG (27.0-31.0) 29.6 PG (27.0-31.0) Mean Corpuscular Hemoglobin Concent 33.8 G/DL (32.0-36.0) 34.1 G/DL (32.0-36.0) Red Cell Distribution Width 12.1 % (11.6-14.8) 13.6 % (11.6-14.8) Platelet Count 178 K/UL (150-450) 197 K/UL (150-450) Mean Platelet Volume 9.3 FL (6.5-10.1) 8.7 FL (6.5-10.1) Neutrophils (%) (Auto) % (45.0-75.0) % (45.0-75.0) Lymphocytes (%) (Auto) % (20.0-45.0) % (20.0-45.0) Monocytes (%) (Auto) % (1.0-10.0) % (1.0-10.0) Eosinophils (%) (Auto) % (0.0-3.0) % (0.0-3.0) Basophils (%) (Auto) % (0.0-2.0) % (0.0-2.0) Differential Total Cells Counted 100 100 Neutrophils % (Manual) 81 % (45-75) 92 % (45-75) Lymphocytes % (Manual) 12 % (20-45) 4 % (20-45) Monocytes % (Manual) 6 % (1-10) 3 % (1-10) Eosinophils % (Manual) 1 % (0-3) 1 % (0-3) Basophils % (Manual) 0 % (0-2) 0 % (0-2) Band Neutrophils 0 % (0-8) 0 % (0-8) Platelet Estimate Adequate Adequate Platelet Morphology Normal Normal Hypochromasia 1+ 2+ Prothrombin Time 10.0 SEC (9.30-11.50) Prothromb Time International Ratio 0.9 (0.9-1.1) Sodium Level 136 MMOL/L (136-145) 134 MMOL/L (136-145) Potassium Level 3.6 MMOL/L (3.5-5.1) 3.4 MMOL/L (3.5-5.1) Chloride Level 101 MMOL/L (98-107) 95 MMOL/L (98-107) Carbon Dioxide Level 16 MMOL/L (21-32) 21 MMOL/L (21-32) Anion Gap 20 mmol/L (5-15) 18 mmol/L (5-15) Blood Urea Nitrogen 104 mg/dL (7-18) 68 mg/dL (7-18) Creatinine 4.8 MG/DL (0.55-1.30) 3.7 MG/DL (0.55-1.30) Estimat Glomerular Filtration Rate 10.3 mL/min (>60) 14.1 mL/min (>60) Glucose Level 132 MG/DL (74-106) 133 MG/DL (74-106) Calcium Level 8.6 MG/DL (8.5-10.1) 8.8 MG/DL (8.5-10.1) Total Bilirubin 1.2 MG/DL (0.2-1.0) 1.0 MG/DL (0.2-1.0) Direct Bilirubin 0.4 MG/DL (0.0-0.3) Aspartate Amino Transf (AST/SGOT) 52 U/L (15-37) 64 U/L (15-37) Alanine Aminotransferase (ALT/SGPT) 73 U/L (12-78) 71 U/L (12-78) Alkaline Phosphatase 87 U/L (46-116) 82 U/L (46-116) Total Protein 6.1 G/DL (6.4-8.2) 6.1 G/DL (6.4-8.2) Albumin 3.2 G/DL (3.4-5.0) 3.3 G/DL (3.4-5.0) Globulin 3.0 g/dL 2.8 g/dL Albumin/Globulin Ratio 1.0 (1.0-2.7) 1.2 (1.0-2.7) Amylase Level 332 U/L (25-115) Lipase > 2000 U/L (73-393) Anisocytosis 1+ Spherocytes 1+ Urine Color Brown Urine Appearance Slightly cloudy Urine pH 5 (4.5-8.0) Urine Specific [place] 1.010 (1.005-1.035) Urine Protein 4+ (NEGATIVE) Urine Glucose (UA) Negative (NEGATIVE) Urine Ketones 1+ (NEGATIVE) Urine Blood 5+ (NEGATIVE) Urine Nitrite Negative (NEGATIVE) Urine Bilirubin Negative (NEGATIVE) Urine Urobilinogen Normal MG/DL (0.0-1.0) Urine Leukocyte Esterase 3+ (NEGATIVE) Urine RBC 5-10 /HPF (0 - 2) Urine WBC 40-60 /HPF (0 - 2) Urine Squamous Epithelial Cells Few /LPF (NONE/OCC) Urine Bacteria Many /HPF (NONE) Urine Yeast Moderate /HPF (NONE) Test 07/05/19 05:30 White Blood Count 18.7 K/UL (4.8-10.8) Red Blood Count 2.78 M/UL (4.20-5.40) Hemoglobin 8.2 G/DL (12.0-16.0) Hematocrit 24.2 % (37.0-47.0) Mean Corpuscular Volume 87 FL (80-99) Mean Corpuscular Hemoglobin 29.3 PG (27.0-31.0) Mean Corpuscular Hemoglobin Concent 33.7 G/DL (32.0-36.0) Red Cell Distribution Width 13.1 % (11.6-14.8) Platelet Count 258 K/UL (150-450) Mean Platelet Volume 8.8 FL (6.5-10.1) Neutrophils (%) (Auto) % (45.0-75.0) Lymphocytes (%) (Auto) % (20.0-45.0) Monocytes (%) (Auto) % (1.0-10.0) Eosinophils (%) (Auto) % (0.0-3.0) Basophils (%) (Auto) % (0.0-2.0) Sodium Level 132 MMOL/L (136-145) Potassium Level 4.3 MMOL/L (3.5-5.1) Chloride Level 93 MMOL/L (98-107) Carbon Dioxide Level 21 MMOL/L (21-32) Anion Gap 18 mmol/L (5-15) Blood Urea Nitrogen 102 mg/dL (7-18) Creatinine 5.2 MG/DL (0.55-1.30) Estimat Glomerular Filtration Rate 9.5 mL/min (>60) Glucose Level 101 MG/DL (74-106) Calcium Level 8.9 MG/DL (8.5-10.1) Amylase Level 220 U/L (25-115) Lipase > 2000 U/L (73-393) Height (Feet): 5 Height (Inches): 3.00 Weight (Pounds): 116 Objective Physical Exam: Vitals: reviewed General: NAD, groans to pain stimuli HEENT: nc, at Neck: supple Chest: clear breath sounds bilaterally Cardiovascular: RRR, no s3, s4 Abdomen: soft, nontender, nd Extremities: no cce, normal range of motion Neuro: alert and oriented Skin: other - pressure sores to right side Bola Aldridge MD Jul 05, 2019 07:25
[2019-07-05] MEDS: Pantoprazole Inj IVP SCH (09:00)
[2019-07-05] MEDS: Gabapentin 300 MG/6 ML Soln GT SCH ×2 (09:00→17:59)
--- NOTE | 2019-07-05 09:03 | Pulmonology Progress Note ---
Assessment/Plan Assessment/Plan IMPRESSION: 1. Extensive left lung pneumonia. Latest CXR shows significant clearing 2. Pulmonary edema. 3. Respiratory failure; now off BiPAP DISCUSSION: Continue antibiotics. Dialysis per renal Use BiPAP prn. Supplemental O2. I will continue to follow carefully. Abrahan Samaniego M.D. Subjective Interval Events: Denies pain; satyurating well on nasal o2 Constitutional: Reports: no symptoms HEENT: Repors: no symptoms Respiratory: Reports: no symptoms Allergies: Coded Allergies: No Known Allergies (Unverified , 06/24/19) Objective Last 24 Hour Vital Signs Date Time Temp Pulse Resp B/P (MAP) Pulse Ox O2 Delivery O2 Flow Rate FiO2 07/05/19 08:00 98.6 94 18 107/65 (79) 97 07/05/19 07:13 94 20 98 Nasal Cannula 2.0 28 07/05/19 07:13 98 Nasal Cannula 2.0 28 07/05/19 04:00 98.7 92 22 100/59 (73) 98 07/05/19 00:00 98.9 96 23 98/64 (75) 98 07/04/19 21:00 Nasal Cannula 2.0 Nasal Cannula 2.0 07/04/19 20:00 98.9 100 20 99/51 (67) 99 07/04/19 19:16 99 Nasal Cannula 2.0 28 07/04/19 19:16 102 20 99 Nasal Cannula 2.0 28 07/04/19 16:00 98.8 95 19 105/67 (80) 95 07/04/19 15:24 98 07/04/19 12:45 98.0 95 19 129/62 (84) 95 07/04/19 12:30 Nasal Cannula 2.0 07/04/19 11:47 93 Intake and Output 07/04/19 07/05/19 19:00 07:00 Intake Total 250 ml Output Total 90 ml 50 ml Balance 160 ml -50 ml IV Total 50 ml Tube Feeding 200 ml Output Urine Total 90 ml 50 ml # Voids 1 # Bowel Movements 3 1 General Appearance: no acute distress HEENT: normocephalic Respiratory/Chest: chest wall non-tender, lungs clear Cardiovascular: normal peripheral pulses Abdomen: normal bowel sounds Microbiology Date/Time Source Procedure Growth Status 07/04/19 18:29 Urine,Clean Catch Urine Culture - Preliminary Resulted Laboratory Tests 07/04/19 18:29: Urine Color Brown, Urine Appearance Slightly cloudy, Urine pH 5, Urine Specific [place] 1.010, Urine Protein 4+H, Urine Glucose (UA) Negative, Urine Ketones 1+H , Urine Blood 5+H, Urine Nitrite Negative, Urine Bilirubin Negative, Urine Urobilinogen Normal, Urine Leukocyte Esterase 3+H, Urine RBC 5-10H, Urine WBC 40 -60H, Urine Squamous Epithelial Cells Few, Urine Bacteria ManyH, Urine Yeast ModerateH 07/05/19 05:30: White Blood Count 18.7H, Red Blood Count 2.78L, Hemoglobin 8.2L, Hematocrit 24.2L, Mean Corpuscular Volume 87, Mean Corpuscular Hemoglobin 29.3, Mean Corpuscular Hemoglobin Concent 33.7, Red Cell Distribution Width 13.1, Platelet Count 258, Mean Platelet Volume 8.8, Neutrophils (%) (Auto) , Lymphocytes (%) ( Auto) , Monocytes (%) (Auto) , Eosinophils (%) (Auto) , Basophils (%) (Auto) , Neutrophils % (Manual) [Pending], Lymphocytes % (Manual) [Pending], Platelet Estimate [Pending], Platelet Morphology [Pending], Sodium Level 132L, Potassium Level 4.3, Chloride Level 93L, Carbon Dioxide Level 21, Anion Gap 18H, Blood Urea Nitrogen 102H, Creatinine 5.2H, Estimat Glomerular Filtration Rate 9.5, Glucose Level 101, Calcium Level 8.9, Amylase Level 220H, Lipase > 2000H Current Medications Medications (Trade) Dose Ordered Sig/Joan Route PRN Reason Start Time Stop Time Status Last Admin Dose Admin Acetaminophen (Tylenol) 650 mg Q4H PRN NG Mild Pain/Temp > 100.5 07/04/19 20:30 08/01/19 12:29 Acetylcysteine (Mucomyst) 100 mg Q4H PRN HHN Shortness of Breath 07/04/19 18:00 08/03/19 17:59 Albumin Human 100 ml @ 100 mls/hr NEEDED PRN IV DIALYSIS 07/04/19 19:00 08/03/19 18:59 Chlorhexidine Gluconate (Cari-Hex 2%) 1 applic DAILY@2000 TOPIC 07/04/19 20:00 07/26/19 19:59 07/04/19 20:53 Dextrose (Dextrose 50%) 25 ml Q30M PRN IV Hypoglycemia 07/04/19 20:00 07/24/19 19:51 Dextrose (Dextrose 50%) 50 ml Q30M PRN IV Hypoglycemia 07/04/19 20:00 07/24/19 19:51 Diphenhydramine HCl (Benadryl) 25 mg Q6H PRN ORAL Itching/Pruritis 07/04/19 20:00 07/24/19 19:51 Furosemide (Lasix) 40 mg DAILY IV 07/05/19 09:00 07/30/19 19:59 Gabapentin (Neurontin) 300 mg BID GT 07/05/19 09:00 08/01/19 17:59 Hydromorphone HCl (Dilaudid) 0.5 mg Q2H PRN IVP Severe Pain (Pain Scale 7-10) 07/04/19 20:30 07/09/19 12:29 Linezolid 300 ml @ 300 mls/hr EVERY 12 HOURS IVPB 07/04/19 21:00 07/07/19 20:59 07/04/19 20:54 Meropenem 500 mg/ Sodium Chloride 50 ml @ 100 mls/hr Q24HRS IVPB 07/05/19 17:30 07/08/19 17:29 Ondansetron HCl (Zofran) 4 mg Q4H PRN IVP Nausea & Vomiting 07/04/19 20:00 08/02/19 19:59 Pantoprazole (Protonix) 40 mg DAILY IVP 07/05/19 09:00 07/30/19 08:59 Abrahan Samaniego MD Jul 05, 2019 09:03
[2019-07-05] MEDS ORDERED: Propofol 200mg/20ml IV ONE (11:00)
--- NOTE | 2019-07-05 11:04 | Nephrology Progress Note ---
Assessment/Plan Plan #acute renal failure on possible CKD- due to rhabdo- UA with + RBC- concerns for developing ATN #Uremia #complete opacification of the left hemithorax- likely aspiration pneumonia #lactic acidosis #Hypernatremia- improved #AMS #elevated liver enzyme - HD today - assess need for HD daily - continue lasix 40 IV daily - PEG placement today - pulmonary eval - on room air now - renal US-> No obstructive nephropathy. - monitor liver enzymes and lipase - Gi eval - continue with abx per ID Subjective Subjective plan for PEG today HD later today BP stable on NC CT chest: Extensive airspace consolidation in the left lung involving the left perihilar, upper lobe and left lower lobe. Findings suspicious for pneumonia, especially aspiration given the abrupt onset. Please correlate clinically. Partial atelectasis of the left lower lobe also noted Objective Objective Last 24 Hour Vital Signs Date Time Temp Pulse Resp B/P (MAP) Pulse Ox O2 Delivery O2 Flow Rate FiO2 07/05/19 08:00 98.6 94 18 107/65 (79) 97 07/05/19 07:13 94 20 98 Nasal Cannula 2.0 28 07/05/19 07:13 98 Nasal Cannula 2.0 28 07/05/19 04:00 98.7 92 22 100/59 (73) 98 07/05/19 00:00 98.9 96 23 98/64 (75) 98 07/04/19 21:00 Nasal Cannula 2.0 Nasal Cannula 2.0 07/04/19 20:00 98.9 100 20 99/51 (67) 99 07/04/19 19:16 99 Nasal Cannula 2.0 28 07/04/19 19:16 102 20 99 Nasal Cannula 2.0 28 07/04/19 16:00 98.8 95 19 105/67 (80) 95 07/04/19 15:24 98 07/04/19 12:45 98.0 95 19 129/62 (84) 95 07/04/19 12:30 Nasal Cannula 2.0 07/04/19 11:47 93 Intake and Output 07/04/19 07/05/19 19:00 07:00 Intake Total 250 ml Output Total 90 ml 50 ml Balance 160 ml -50 ml IV Total 50 ml Tube Feeding 200 ml Output Urine Total 90 ml 50 ml # Voids 1 # Bowel Movements 3 1 Laboratory Tests 07/04/19 18:29: Urine Color Brown, Urine Appearance Slightly cloudy, Urine pH 5, Urine Specific [place] 1.010, Urine Protein 4+H, Urine Glucose (UA) Negative, Urine Ketones 1+H , Urine Blood 5+H, Urine Nitrite Negative, Urine Bilirubin Negative, Urine Urobilinogen Normal, Urine Leukocyte Esterase 3+H, Urine RBC 5-10H, Urine WBC 40 -60H, Urine Squamous Epithelial Cells Few, Urine Bacteria ManyH, Urine Yeast ModerateH 07/05/19 05:30: White Blood Count 18.7H, Red Blood Count 2.78L, Hemoglobin 8.2L, Hematocrit 24.2L, Mean Corpuscular Volume 87, Mean Corpuscular Hemoglobin 29.3, Mean Corpuscular Hemoglobin Concent 33.7, Red Cell Distribution Width 13.1, Platelet Count 258, Mean Platelet Volume 8.8, Neutrophils (%) (Auto) , Lymphocytes (%) ( Auto) , Monocytes (%) (Auto) , Eosinophils (%) (Auto) , Basophils (%) (Auto) , Differential Total Cells Counted 100, Neutrophils % (Manual) 82H, Lymphocytes % (Manual) 10L, Monocytes % (Manual) 8, Eosinophils % (Manual) 0, Basophils % ( Manual) 0, Band Neutrophils 0, Platelet Estimate Adequate, Platelet Morphology Normal, Hypochromasia 1+, Sodium Level 132L, Potassium Level 4.3, Chloride Level 93L, Carbon Dioxide Level 21, Anion Gap 18H, Blood Urea Nitrogen 102H, Creatinine 5.2H, Estimat Glomerular Filtration Rate 9.5, Glucose Level 101, Calcium Level 8.9, Amylase Level 220H, Lipase > 2000H Height (Feet): 5 Height (Inches): 3.00 Weight (Pounds): 116 Objective General Appearance: lethargic, confused, on bipap Lines, tubes and drains: peripheral HEENT: normocephalic, atraumatic Neck: non-tender Respiratory/Chest: minimal breath sounds on the left Cardiovascular/Chest: normal peripheral pulses, normal rate, regular rhythm, regularly irregular Abdomen: non tender, soft Rory Oconnor M.D. Jul 05, 2019 11:04
[2019-07-05] MEDS ORDERED: NS 500ML IVPB ONE (11:20)
--- NOTE | 2019-07-05 11:26 | Pre-Procedure Note/Attestation ---
Pre-Procedure Note/Attestation Complete Prior to Procedure Planned Procedure: not applicable Procedure Narrative: egd/peg Indications for Procedure Pre-Operative Diagnosis: dysphagia Attestation I attest that I discussed the nature of the procedure; its benefits; risks and complications; and alternatives (and the risks and benefits of such alternatives ), prior to the procedure, with the patient (or the patient's legal airport representative). I attest that, if there was a reasonable possibility of needing a blood transfusion, the patient (or the patient's legal airport representative) was given the [facility] standardized written summary, pursuant to the Donald Luis [place] Blood Safety Act ([place] Health and Safety Code # 1645, as amended). I attest that I re-evaluated the patient just prior to the surgery and that there has been no change in the patient's H&P, except as documented below: Jun Mnea MD Jul 05, 2019 11:26
--- NOTE | 2019-07-05 11:38 | Endoscopy Procedure Note ---
Endoscopy Procedure Note General Indication for Procedure: dysphgaia Procedures Performed: EGD, PEG Operative Findings/Diagnosis: same Specimen: none Pt Tolerated Procedure Well: Yes Estimated Blood Loss: none Anesthesia Anesthesiologist: rachael Anesthesia: MAC Inserted Devices Implant(s) used?: No GI Core Measures 50 yrs or older w/o bx or poly: Not Applicable 10yrs. F/U recommended: Not Applicable Jun Mena MD Jul 05, 2019 11:38
--- NOTE | 2019-07-05 11:56 | Anethesia Preoperative Eval ---
Anesthesia Pre-op PMH/ROS General Date of Evaluation: Jul 05, 2019 Time of Evaluation: 11:17 Anesthesiologist: Rand Nunez CRNA ASA Score: ASA 3 Mallampati Score Class I : Soft palate, uvula, fauces, pillars visible Class II: Soft palate, uvula, fauces visible Class III: Soft palate, base of uvula visible Class IV: Only hard plate visible Mallampati Classification: Class II Surgeon: Rajesh Diagnosis: AMS Surgical Procedure: PEG insertion Family History: no anesthesia problems Allergies: Coded Allergies: No Known Allergies (Unverified , 06/24/19) Medications: see eMAR Patient NPO?: Yes NPO Date: Jul 05, 2019 NPO Time: 00:00 Past Medical History Cardiovascular: Reports: HTN; Denies: CAD, [place], valve dz, arrhythmia, other Pulmonary: Reports: other - NC 2LPM; Denies: asthma, COPD, JORGE LUIS Gastrointestinal/Genitourinary: Reports: other - KAREN, CKD Neurologic/Psychiatric: Reports: dementia; Denies: CVA, depression/anxiety, TIA, other Endocrine: Denies: DM, hypothyroidism, steroids, other HEENT: Denies: cataract (L), cataract (R), glaucoma, [place] (L), [place] (R), other Hematology/Immune: Reports: anemia; Denies: DVT, bleeding disorder, other Musculoskeletal/Integumentary: Reports: other - s/p fall with lumbar spine fractire; severly contractured; Denies: OA, RA, DJD, DDD, edema PMH Narrative: as noted above PSxH Narrative: See H & P Anesthesia Pre-op Phys. Exam Physician Exam Last Vital Signs Date Time Temp Pulse Resp B/P (MAP) Pulse Ox O2 Delivery O2 Flow Rate FiO2 07/05/19 11:50 94 18 135/70 100 Nasal Cannula 3 07/05/19 11:41 97.1 07/05/19 07:13 28 Constitutional: NAD Neurologic: other - severe dementia Cardiovascular: RRR Respiratory: CTA Gastrointestinal: S/NT/ND Airway Exam Mallampati Score: Class II MO: full Neck: stiff TMD: > 3 FB ROM: full Teeth: missing Dentures: no upper, no lower Anesthesia Pre-op A/P Labs Hematology Test 07/05/19 05:30 White Blood Count 18.7 K/UL (4.8-10.8) H Red Blood Count 2.78 M/UL (4.20-5.40) L Hemoglobin 8.2 G/DL (12.0-16.0) L Hematocrit 24.2 % (37.0-47.0) L Mean Corpuscular Volume 87 FL (80-99) Mean Corpuscular Hemoglobin 29.3 PG (27.0-31.0) Mean Corpuscular Hemoglobin Concent 33.7 G/DL (32.0-36.0) Red Cell Distribution Width 13.1 % (11.6-14.8) Platelet Count 258 K/UL (150-450) Mean Platelet Volume 8.8 FL (6.5-10.1) Neutrophils (%) (Auto) % (45.0-75.0) Lymphocytes (%) (Auto) % (20.0-45.0) Monocytes (%) (Auto) % (1.0-10.0) Eosinophils (%) (Auto) % (0.0-3.0) Basophils (%) (Auto) % (0.0-2.0) Differential Total Cells Counted 100 Neutrophils % (Manual) 82 % (45-75) H Lymphocytes % (Manual) 10 % (20-45) L Monocytes % (Manual) 8 % (1-10) Eosinophils % (Manual) 0 % (0-3) Basophils % (Manual) 0 % (0-2) Band Neutrophils 0 % (0-8) Platelet Estimate Adequate Platelet Morphology Normal Hypochromasia 1+ Chemistry Test 07/05/19 05:30 Sodium Level 132 MMOL/L (136-145) L Potassium Level 4.3 MMOL/L (3.5-5.1) Chloride Level 93 MMOL/L (98-107) L Carbon Dioxide Level 21 MMOL/L (21-32) Anion Gap 18 mmol/L (5-15) H Blood Urea Nitrogen 102 mg/dL (7-18) H Creatinine 5.2 MG/DL (0.55-1.30) H Estimat Glomerular Filtration Rate 9.5 mL/min (>60) Glucose Level 101 MG/DL (74-106) Calcium Level 8.9 MG/DL (8.5-10.1) Amylase Level 220 U/L (25-115) H Lipase > 2000 U/L (73-393) H Risk Assessment & Plan Assessment: ASA 3, ok to proceed Plan: MAC Status Change Before Surgery: No Pre-Antibiotics Given Within 1 Hr of Incision: Rand Wade CRNA Jul 05, 2019 11:56
--- NOTE | 2019-07-05 11:57 | Immediate Post-Op Evaluation ---
Immediate Post-Op Evalulation Immediate Post-Op Evalulation Procedure: PEG insertion Date of Evaluation: Jul 05, 2019 Time of Evaluation: 11:51 IV Fluids: 0.9 NS 100 ml Blood Pressure Systolic: 116 Blood Pressure Diastolic: 58 Pulse Rate: 89 Respiratory Rate: 20 O2 Sat by Pulse Oximetry: 100 Temperature (Fahrenheit): 97.1 Pain Score (1-10): 0 Nausea: No Vomiting: No Complications none Patient Status: awake, patent Hydration Status: adequate Given Within 1 Hr of Incision: Rand Wade CRNA Jul 05, 2019 11:57
--- NOTE | 2019-07-05 12:36 | Surgery Progress Note ---
Surgery Progress Note Subjective Procedure Performed Left femoral temporary hemodialysis catheter insertion Symptoms: improved, tolerating diet, voiding well, passing flatus Objective Last 24 Hour Vital Signs Date Time Temp Pulse Resp B/P (MAP) Pulse Ox O2 Delivery O2 Flow Rate FiO2 07/05/19 11:57 89 20 100 07/05/19 11:50 94 18 135/70 100 Nasal Cannula 3 07/05/19 11:41 97.1 94 19 113/67 100 Nasal Cannula 3 07/05/19 09:00 Nasal Cannula 2.0 Nasal Cannula 2.0 07/05/19 08:00 98.6 94 18 107/65 (79) 97 07/05/19 07:13 94 20 98 Nasal Cannula 2.0 28 07/05/19 07:13 98 Nasal Cannula 2.0 28 07/05/19 04:00 98.7 92 22 100/59 (73) 98 07/05/19 00:00 98.9 96 23 98/64 (75) 98 07/04/19 21:00 Nasal Cannula 2.0 Nasal Cannula 2.0 07/04/19 20:00 98.9 100 20 99/51 (67) 99 07/04/19 19:16 99 Nasal Cannula 2.0 28 07/04/19 19:16 102 20 99 Nasal Cannula 2.0 28 07/04/19 16:00 98.8 95 19 105/67 (80) 95 07/04/19 15:24 98 07/04/19 12:45 98.0 95 19 129/62 (84) 95 I&O Intake and Output 07/04/19 07/05/19 19:00 07:00 Intake Total 250 ml Output Total 90 ml 50 ml Balance 160 ml -50 ml IV Total 50 ml Tube Feeding 200 ml Output Urine Total 90 ml 50 ml # Voids 1 # Bowel Movements 3 1 Dressing: dry Wound: clean Cardiovascular: RSR Respiratory: clear Abdomen: soft, non-tender, present bowel sounds Extremities: no cyanosis Laboratory Tests Test 07/04/19 18:29 07/05/19 05:30 Urine Color Brown Urine Appearance Slightly cloudy Urine pH 5 (4.5-8.0) Urine Specific [place] 1.010 (1.005-1.035) Urine Protein 4+ (NEGATIVE) H Urine Glucose (UA) Negative (NEGATIVE) Urine Ketones 1+ (NEGATIVE) H Urine Blood 5+ (NEGATIVE) H Urine Nitrite Negative (NEGATIVE) Urine Bilirubin Negative (NEGATIVE) Urine Urobilinogen Normal MG/DL (0.0-1.0) Urine Leukocyte Esterase 3+ (NEGATIVE) H Urine RBC 5-10 /HPF (0 - 2) H Urine WBC 40-60 /HPF (0 - 2) H Urine Squamous Epithelial Cells Few /LPF (NONE/OCC) Urine Bacteria Many /HPF (NONE) H Urine Yeast Moderate /HPF (NONE) H White Blood Count 18.7 K/UL (4.8-10.8) H Red Blood Count 2.78 M/UL (4.20-5.40) L Hemoglobin 8.2 G/DL (12.0-16.0) L Hematocrit 24.2 % (37.0-47.0) L Mean Corpuscular Volume 87 FL (80-99) Mean Corpuscular Hemoglobin 29.3 PG (27.0-31.0) Mean Corpuscular Hemoglobin Concent 33.7 G/DL (32.0-36.0) Red Cell Distribution Width 13.1 % (11.6-14.8) Platelet Count 258 K/UL (150-450) Mean Platelet Volume 8.8 FL (6.5-10.1) Neutrophils (%) (Auto) % (45.0-75.0) Lymphocytes (%) (Auto) % (20.0-45.0) Monocytes (%) (Auto) % (1.0-10.0) Eosinophils (%) (Auto) % (0.0-3.0) Basophils (%) (Auto) % (0.0-2.0) Differential Total Cells Counted 100 Neutrophils % (Manual) 82 % (45-75) H Lymphocytes % (Manual) 10 % (20-45) L Monocytes % (Manual) 8 % (1-10) Eosinophils % (Manual) 0 % (0-3) Basophils % (Manual) 0 % (0-2) Band Neutrophils 0 % (0-8) Platelet Estimate Adequate Platelet Morphology Normal Hypochromasia 1+ Sodium Level 132 MMOL/L (136-145) L Potassium Level 4.3 MMOL/L (3.5-5.1) Chloride Level 93 MMOL/L (98-107) L Carbon Dioxide Level 21 MMOL/L (21-32) Anion Gap 18 mmol/L (5-15) H Blood Urea Nitrogen 102 mg/dL (7-18) H Creatinine 5.2 MG/DL (0.55-1.30) H Estimat Glomerular Filtration Rate 9.5 mL/min (>60) Glucose Level 101 MG/DL (74-106) Calcium Level 8.9 MG/DL (8.5-10.1) Amylase Level 220 U/L (25-115) H Lipase > 2000 U/L (73-393) H Plan Problems: (1) Fall Assessment & Plan: 88 year old female s/p fall now with renal insufficiency requiring HD spoke with family. she has known CKD multiple decubitus ulcers from being down malnutrition line placed see documentation trend labs abx HD thank you prognosis guarded family at bedside cxr noted pna worsening R cheek pressure injury resolved. Unstageable pressure injury R shoulder now has 90% necrosis,surrounding 10% pink granulation(L()4.1cm x (W)3.3cm. No odor or exudate noted.No erythema or induration periwound. Reabsorbed DTPI R Humerus. Base of wound is dry,brown with pink epithelial at the distal base of wound(L)9.4cm x (W)3.1cm. DTPI R elbow has resolved. Scattered dry brown peeling skin noted. No erythema noted. DTPI sacrum less indurated (L)4.5cm x (W)6cm. Small opening at cleft that is corby and moist(L)1.5cm x (W)0.3cm. No exudate noted. L ischial DTPI reabsorbed(L)6cm x (W)7cm. Base of injury black. No erythema or evidence of further breakdown periwound. Unstageable pressure injury R hip(L)8.9cm x (W)14.2cm. Base of wound has 50% slough ,25% soft necrosis, 25% pink granulation along borders.Edges adherent to base of wound. No odor or exudate noted. DTPI medial/posterior L heel reabsorbed. Base of injury is boggy but blanchable. Unstageable Pressure Injury L Hallux resolving.(L)4.3cm x (W)3.7cm. Base of wound is 60% necrotic,10% slough with surrounding 30% pink granulation. Marginal erythema periwound. Small amt purulent exudate noted. No odor noted. DTPI medial L malleolus reabsorbed. Dry brown patch noted. Reabsorbed blood blisters L 1st,2nd and 3rd metatarsals. Dry brown patches noted dorsally all 3 metatarsals. R heel DTPI resolving. R heel is boggy but blanchable. Unstageable pressure injury lateral R malleolus. Base of wound has scattered slough. Borders are macerated with marginal erythema periwound.(L)0.7cm x (W) 1.3cm. No erythema or fluctuance periwound. DTPI distal/lateral R foot resolving. Base of injury is maroon /fluctuant. No erythema or induration periwound. DTPI lateral R 5th metatarsal resolved. Wound care provided. Wound Tx are effective and continued as ordered. All wound prevention protocols continued as care-planned. Family member at bedside and updated on wound progress. DAILY ESTIMATED NEEDS: Needs based on Wounds, 51.8kg 30-35 kcals/kg 9750-7891 total kcals 1.25-1.5 g protein/kg 65-78 g total protein 25-30ml/kcal mL/kg 1613-1647 total fluid mLs NUTRITION DIAGNOSIS: * Increased kcal and pro needs r/t wound healing and renal failure as evidenced by, s/p fall w/ pressure wounds per MD, refer to WC eval, ARF needing HD. * Swallowing difficulty R/T dysphagia as evidenced by s/p NGT placement, plan for PEG placement w/ consent and medical clearance, TF held for possible pancreatitis. CURRENT TF:NPO- TF HELD FOR POSSIBLE PANCREATITIS ENTERAL NUTRITION RECOMMENDATIONS: NEPRO @36ml/hr x24 hrs to provide 864ml, 1555 kcal, 70g pro, 628ml free H2O free H2O - As medically appropriate, resume TF - Start @16ml/hr for 8 hrs, advance as tolerated 5ml/hr q4-6 hrs to goal. - Flush per MD/ HOB Over 30 degrees - PT AT HIGH RISK FOR REFEEDING SYNDROME, MONITOR LYTES DAILY, REPLETE NEEDED ADDITIONAL RECOMMENDATIONS: 1) Monitor ability to resume TF NGT feeds held 06/30 for possible pancreatitis. If unable to feed via GI, consider initiating TPN due to proloned NPO, minimal intake status 2) WOUND CARE: W/ active TF order add VASQUEZ in 4oz H2O BID 3) Rec added dextrose when NPO 4) Calibrated bed scale wts daily 5) Monitor lytes closely w/ TF- high risk for refeeding syndrome (2) Altered level of consciousness (3) Fracture of lumbar spine Assessment & Plan: Lungs: There is increased density at the lung bases likely atelectasis. Aorta is moderately calcified. There is a small hiatal hernia.. Liver: Grossly unremarkable. There is artifact limiting evaluation in addition to the fact that no IV or oral contrast was given for this examination. Gallbladder/biliary system: Grossly unremarkable. Spleen: Unremarkable Pancreas: In the area of the pancreatic tail there is a 1.6 cm nodular density which may be cystic. Further evaluation is recommended. Kidneys/Bladder: Vascular calcifications are quite extensive and extend to the hilum of both kidneys. Evaluation for punctate nonobstructive stones is limited in this setting but no definite stones seen. There is no hydronephrosis. Extensive breathing motion limiting evaluation.. Adrenal glands: Unremarkable Bowel: Patient's prior partial bowel resection in the right lower abdomen with anastomotic sutures noted. There is no evidence of a bowel obstruction or inflammatory changes. Appendix is not seen definitely but there are no signs of appendicitis. A few diverticula are noted within the colon. Aorta/IVC: There is a severe calcification of aorta and multiple branches of the aorta. Peritoneum: There is no free fluid. Bones: Bones are diffusely osteopenic. Multiple compression fracture deformities of several vertebra noted including lower thoracic vertebra and L1. There is narrowing of intervertebral discs and accompanying endplate osteophyte formation. Hypertrophied facet joints also demonstrated. Scoliosis of the lower thoracic spine convex to the right and left convex lumbar scoliosis noted. IMPRESSION: No acute findings appreciated. Study limited by the lack of intravenous oral contrast as well as extensive motion artifact. 1.6 cm probable cystic lesion in the pancreatic tail. This requires further evaluation with the contrast CT or MR. Status post previous partial bowel resection. 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 Degenerative changes as described above. (4) Rhabdomyolysis (5) KAREN (acute kidney injury) (6) Decubitus skin ulcer Assessment & Plan: Pt presented on admission with multiple pressure injuries. Pt's niece Sarah stated pt lives alone and found pt laying on her R side on floor in patient's home.Niece believes pt has been laying on floor for approx 5 days. DTPI noted to R cheek. Base of wound is purple with marginal erythema along borders.(L)1.2cm x (W)1.6cm. Unstageable pressure injury R shoulder. Base of wound is 100% necrotic with marginal erythema along borders.(L)4.8cm x (W).3.5cm . DTPI R humerus. Base of wound is fluctuant and maroon in colour with surrounding erythema. (L)10.6cm x (W)3.1cm. DTPI R elbow.Base of wound is indurated with scattered areas that are purple in colour. An area of fluctuance in center. Marginal erythema along borders.(L) 5.3cm x (W)10.4cm. Partially opened Sacral DTPI. Base of wound is purple with surrounding erythema. Partial open wound cleft that is corby and moist.(L)5.3cm x (W) 4.5cm.NO odor or exudate noted. Non-blanching erythema periwound. DTPI L ischium . Base of wound is purple and indurated.(L)6cm x (W)7.5cm. Unstageable pressure injury R hip. Base of wound is 75% necrotic, 25% mixed erythema and slough. Borders are moist,soft with scattered areas that are black. Periwound is dusky and indurated.No odor or exudate noted. DTPI at posterior and medial aspect of L heel. Base of wound is maroon and fluctuant(L)4cm x (W)7cm. Unstageable pressure injury L Hallux. Base of wound is 100% necrotic but soft. Borders are erythematous. Periwound without induration or fluctuance.(L)2.5cm x (W)3cm. DTPI medial L malleolus. Base of wound fluctuant and maroon in colour.(L) 0.3cm x (W)1.2cm. DTPI medial L malleolus. Base of wound fluctuant and maroon in colour with Marginal erythema along borders.(L)0.3cm x (W)1.2cm. Intact blood filled blisters noted to L 1st Metatarsal laterally and head of metatarsal. Intact blood filled blisters noted to heads of L 2nd and L 3rd metatarsals. DTPI noted to posterior and lateral R Heel. Posterior R heel is maroon in colour and fluctuant at base. Laterally ,R heel is black and fluctuant at base.Periwound is boggy and non-blanchable.(L)7cm x (W)8cm. Unstageable pressure injury lateral R malleolus. Base of wound is 100% necrotic and dry.Marginal erythema along borders.Periwound is fluctuant and erythematous( L)1.2cm x (W)1.5cm. DTPI distal/lateral R foot. Base of wound is fluctuant and maroon in colour.(L) 1.3cm x (W)1.7cm. DTPI lateral R 5th metatarsal. Base of wound is maroon and fluctuant with marginal erythema along borders .(L)0.7cm x (W)1.1cm Tx.Plan: Cleanse Wound R shoulder with Saline. Apply Therahoney. Apply Cavilon Skin barrier periwound. Cover with Optifoam drsg every 3 days and prn. Cleanse R hip wound with Saline. Apply Therahoney with 4x4 Gauze. Apply Moisture Barrier Paste periwound.Cover with Optifoam drsg. Daily and prn. Apply Moisture Barrier Paste to Sacral wound and L Ischium. Cover each wound with Optifoam drsg every 3 days and prn. Apply Betadine to R humerus and R elbow . Cover each wound with Optifoam drsg. Change every 3 days and prn. Apply Betadine to wounds R heel, R malleolus and R foot . Cover each wound with Optifoam drsg every 3 days and prn. Apply Betadine to wounds L heel ,L medial malleolus and L foot. Cover each wound with Optifoam drsgs every 3 Days and prn. Air Fluidized Mattress. Reposition at least every 2hours or as tolerated. Place Pillow between knees. Off-load heels with pillow. Anshul Nava Jul 05, 2019 12:36
--- NOTE | 2019-07-05 12:39 | Cardiology Progress Note ---
Assessment/Plan Assessment/Plan Assessment/Plan Status: stable Assessment/Plan: Assessment Elevated troponin Syncope. Elevated LFT KAREN/CKD Rhabdomyolysis Plan d/c Trend troponin Monitor on telemetry Echocardiogram reviewed Stress test prior to discharge Hold heparin PEG tube placement - clear to proceed Maintain HD Abx per ID/pulm Pulmonary toilet Supportive care Clear to proceed with PEG tube Subjective Cardiovascular: Reports: no symptoms Respiratory: Reports: no symptoms Gastrointestinal/Abdominal: Reports: no symptoms Genitourinary: Reports: no symptoms Subjective No distress, on roon air, no fevers, BP elevated, creatinine improved, for PEG Today Objective Last 24 Hour Vital Signs Date Time Temp Pulse Resp B/P (MAP) Pulse Ox O2 Delivery O2 Flow Rate FiO2 07/05/19 11:57 89 20 100 07/05/19 11:50 94 18 135/70 100 Nasal Cannula 3 07/05/19 11:41 97.1 94 19 113/67 100 Nasal Cannula 3 07/05/19 09:00 Nasal Cannula 2.0 Nasal Cannula 2.0 07/05/19 08:00 98.6 94 18 107/65 (79) 97 07/05/19 07:13 94 20 98 Nasal Cannula 2.0 28 07/05/19 07:13 98 Nasal Cannula 2.0 28 07/05/19 04:00 98.7 92 22 100/59 (73) 98 07/05/19 00:00 98.9 96 23 98/64 (75) 98 07/04/19 21:00 Nasal Cannula 2.0 Nasal Cannula 2.0 07/04/19 20:00 98.9 100 20 99/51 (67) 99 07/04/19 19:16 99 Nasal Cannula 2.0 28 07/04/19 19:16 102 20 99 Nasal Cannula 2.0 28 07/04/19 16:00 98.8 95 19 105/67 (80) 95 07/04/19 15:24 98 07/04/19 12:45 98.0 95 19 129/62 (84) 95 General Appearance: no apparent distress, alert EENT: PERRL/EOMI, normal ENT inspection, TMs normal, pharynx normal Neck: non-tender, normal alignment, supple, normal inspection, no JVD Rhythm: NSR Cardiovascular: normal peripheral pulses, normal rate, regular rhythm Respiratory/Chest: chest wall non-tender, lungs clear, normal breath sounds Abdomen: normal bowel sounds, non tender, soft, no organomegaly, no mass Extremities: normal range of motion, non-tender, normal inspection, no calf tenderness, no swelling 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, no motor/sensory deficits Intake and Output 07/04/19 07/05/19 19:00 07:00 Intake Total 250 ml Output Total 90 ml 50 ml Balance 160 ml -50 ml IV Total 50 ml Tube Feeding 200 ml Output Urine Total 90 ml 50 ml # Voids 1 # Bowel Movements 3 1 Laboratory Tests Test 07/04/19 18:29 07/05/19 05:30 Urine Color Brown Urine Appearance Slightly cloudy Urine pH 5 (4.5-8.0) Urine Specific [place] 1.010 (1.005-1.035) Urine Protein 4+ (NEGATIVE) H Urine Glucose (UA) Negative (NEGATIVE) Urine Ketones 1+ (NEGATIVE) H Urine Blood 5+ (NEGATIVE) H Urine Nitrite Negative (NEGATIVE) Urine Bilirubin Negative (NEGATIVE) Urine Urobilinogen Normal MG/DL (0.0-1.0) Urine Leukocyte Esterase 3+ (NEGATIVE) H Urine RBC 5-10 /HPF (0 - 2) H Urine WBC 40-60 /HPF (0 - 2) H Urine Squamous Epithelial Cells Few /LPF (NONE/OCC) Urine Bacteria Many /HPF (NONE) H Urine Yeast Moderate /HPF (NONE) H White Blood Count 18.7 K/UL (4.8-10.8) H Red Blood Count 2.78 M/UL (4.20-5.40) L Hemoglobin 8.2 G/DL (12.0-16.0) L Hematocrit 24.2 % (37.0-47.0) L Mean Corpuscular Volume 87 FL (80-99) Mean Corpuscular Hemoglobin 29.3 PG (27.0-31.0) Mean Corpuscular Hemoglobin Concent 33.7 G/DL (32.0-36.0) Red Cell Distribution Width 13.1 % (11.6-14.8) Platelet Count 258 K/UL (150-450) Mean Platelet Volume 8.8 FL (6.5-10.1) Neutrophils (%) (Auto) % (45.0-75.0) Lymphocytes (%) (Auto) % (20.0-45.0) Monocytes (%) (Auto) % (1.0-10.0) Eosinophils (%) (Auto) % (0.0-3.0) Basophils (%) (Auto) % (0.0-2.0) Differential Total Cells Counted 100 Neutrophils % (Manual) 82 % (45-75) H Lymphocytes % (Manual) 10 % (20-45) L Monocytes % (Manual) 8 % (1-10) Eosinophils % (Manual) 0 % (0-3) Basophils % (Manual) 0 % (0-2) Band Neutrophils 0 % (0-8) Platelet Estimate Adequate Platelet Morphology Normal Hypochromasia 1+ Sodium Level 132 MMOL/L (136-145) L Potassium Level 4.3 MMOL/L (3.5-5.1) Chloride Level 93 MMOL/L (98-107) L Carbon Dioxide Level 21 MMOL/L (21-32) Anion Gap 18 mmol/L (5-15) H Blood Urea Nitrogen 102 mg/dL (7-18) H Creatinine 5.2 MG/DL (0.55-1.30) H Estimat Glomerular Filtration Rate 9.5 mL/min (>60) Glucose Level 101 MG/DL (74-106) Calcium Level 8.9 MG/DL (8.5-10.1) Amylase Level 220 U/L (25-115) H Lipase > 2000 U/L (73-393) H Microbiology Date/Time Source Procedure Growth Status 07/04/19 18:29 Urine,Clean Catch Urine Culture - Preliminary Resulted Melchor Cerna MD Jul 05, 2019 12:39
--- NOTE | 2019-07-05 13:49 | 48 Hour Post Anesthesia Eval ---
Post Anesthesia Evaluation Procedure: PEG insertion Date of Evaluation: Jul 05, 2019 Time of Evaluation: 13:48 Blood Pressure Systolic: 110 0: 78 Pulse Rate: 91 Respiratory Rate: 20 Temperature (Fahrenheit): 97.8 O2 Sat by Pulse Oximetry: 100 Airway: patent Nausea: No Vomiting: No Pain Intensity: 0 Hydration Status: adequate Cardiopulmonary Status: stable Mental Status/LOC: patient returned to baseline Follow-up Care/Observations: per hospitalist Post-Anesthesia Complications: none Follow-up care needed: N/A Rand Nunez CRNA Jul 05, 2019 13:49
--- NOTE | 2019-07-05 14:10 | General Progress Note ---
Assessment/Plan Status: stable Assessment/Plan: #Rhabdomyolosis #KAREN #Acute renal failure - on HD UF #Uremic encephalopathy #Anion gap metabolic acidosis #Lactic acidosis -resolved -Nephrology following for HD -Permcath placement on Monday #Left lung PNA - likely aspiration #Acute hypoxic respiratory failure s/p BiPAP - improved #Strep Viridans bacteremia #Worsening Leukocytosis #loose stools Noted to be acutely hypoxic on early AM of 06/25 -s/p BiPAP -> NC/room air intermittently -CT chest, CXR with left lung infiltrate. -ABG prn. -Pulmonology following -echo negative for vegetations -CXR 06/28: Bilateral interstitial thickening and patchy airspace opacities in the left lung, similar to prior study given differences in technique. -ID following - Now on Zyvox and meropenem, will discuss duration with ID -Stool C. diff negative,oral vanco stopped #Dysphagia -s/p PEG today -start tube feeds when ok with GI #L1 vertebral fracture - likely old seen on imaging, likely old. -reassurance provided to family. #Transaminitis #Acute pancreatitis ?from dehydration, abd exam benign. -continue to trend LFT's, numbers improving -GI following #Type 2 NSTEMI likely demand in setting of renal failure. EKG wnl. -no need to trend. -cardiology consulted - pt will need stress test prior to d/c #Pressure wounds. -General surgery consulted for wound care, central line insertion on 06/24 -Cont. wound care and offloading Time spent: 36 mins, >50% on coordination of care and chart review. Subjective Date patient seen: Jul 05, 2019 Time patient seen: 14:07 ROS Limited/Unobtainable: Yes Allergies: Coded Allergies: No Known Allergies (Unverified , 06/24/19) Subjective Follow up for KAREN, acute pancreatitis, rhabdo, strep bacteremia No acute events overnight Remains nonverbal S/p PEG placement today Objective Last 24 Hour Vital Signs Date Time Temp Pulse Resp B/P (MAP) Pulse Ox O2 Delivery O2 Flow Rate FiO2 07/05/19 13:49 91 20 100 07/05/19 12:05 97.8 91 20 110/78 100 Nasal Cannula 3 07/05/19 11:57 89 20 100 07/05/19 11:55 61 19 124/67 100 Nasal Cannula 3 07/05/19 11:50 94 18 135/70 100 Nasal Cannula 3 07/05/19 11:41 97.1 94 19 113/67 100 Nasal Cannula 3 07/05/19 09:00 Nasal Cannula 2.0 Nasal Cannula 2.0 07/05/19 08:00 98.6 94 18 107/65 (79) 97 07/05/19 07:13 94 20 98 Nasal Cannula 2.0 28 07/05/19 07:13 98 Nasal Cannula 2.0 28 07/05/19 04:00 98.7 92 22 100/59 (73) 98 07/05/19 00:00 98.9 96 23 98/64 (75) 98 07/04/19 21:00 Nasal Cannula 2.0 Nasal Cannula 2.0 07/04/19 20:00 98.9 100 20 99/51 (67) 99 07/04/19 19:16 99 Nasal Cannula 2.0 28 07/04/19 19:16 102 20 99 Nasal Cannula 2.0 28 07/04/19 16:00 98.8 95 19 105/67 (80) 95 07/04/19 15:24 98 Intake and Output 07/04/19 07/05/19 19:00 07:00 Intake Total 250 ml Output Total 90 ml 50 ml Balance 160 ml -50 ml IV Total 50 ml Tube Feeding 200 ml Output Urine Total 90 ml 50 ml # Voids 1 # Bowel Movements 3 1 Laboratory Tests 07/04/19 18:29: Urine Color Brown, Urine Appearance Slightly cloudy, Urine pH 5, Urine Specific [place] 1.010, Urine Protein 4+H, Urine Glucose (UA) Negative, Urine Ketones 1+H , Urine Blood 5+H, Urine Nitrite Negative, Urine Bilirubin Negative, Urine Urobilinogen Normal, Urine Leukocyte Esterase 3+H, Urine RBC 5-10H, Urine WBC 40 -60H, Urine Squamous Epithelial Cells Few, Urine Bacteria ManyH, Urine Yeast ModerateH 07/05/19 05:30: White Blood Count 18.7H, Red Blood Count 2.78L, Hemoglobin 8.2L, Hematocrit 24.2L, Mean Corpuscular Volume 87, Mean Corpuscular Hemoglobin 29.3, Mean Corpuscular Hemoglobin Concent 33.7, Red Cell Distribution Width 13.1, Platelet Count 258, Mean Platelet Volume 8.8, Neutrophils (%) (Auto) , Lymphocytes (%) ( Auto) , Monocytes (%) (Auto) , Eosinophils (%) (Auto) , Basophils (%) (Auto) , Differential Total Cells Counted 100, Neutrophils % (Manual) 82H, Lymphocytes % (Manual) 10L, Monocytes % (Manual) 8, Eosinophils % (Manual) 0, Basophils % ( Manual) 0, Band Neutrophils 0, Platelet Estimate Adequate, Platelet Morphology Normal, Hypochromasia 1+, Sodium Level 132L, Potassium Level 4.3, Chloride Level 93L, Carbon Dioxide Level 21, Anion Gap 18H, Blood Urea Nitrogen 102H, Creatinine 5.2H, Estimat Glomerular Filtration Rate 9.5, Glucose Level 101, Calcium Level 8.9, Amylase Level 220H, Lipase > 2000H Height (Feet): 5 Height (Inches): 3.00 Weight (Pounds): 116 General Appearance: WD/WN, no apparent distress, confused Neck: normal alignment, supple Cardiovascular: normal rate, regular rhythm Respiratory/Chest: lungs clear, normal breath sounds Abdomen: non tender, soft Oumar Foy MD Jul 05, 2019 14:10
--- NOTE | 2019-07-05 16:15 | Procedure Note ---
DATE OF PROCEDURE: 07/05/2019 SURGEON: Jun Mena M.D. REFERRING PHYSICIAN: Meera Frederick M.D. PROCEDURE: Upper endoscopy with PEG placement. ANESTHESIA: Per Rand SPRINGER. INSTRUMENT: Olympus adult flexible upper endoscope. INDICATIONS: Dysphagia. REASON FOR PROCEDURE: The procedure, risks, benefits, and possible consequences, including hemorrhage, aspiration, perforation and infection, and alternative treatments, were explained to the patient/legal guardian by Dr. Jun Mena and the patient/legal guardian understood and accepted these risks. PROCEDURE IN DETAIL: After informed consent was obtained and the patient was adequately sedated, Olympus upper endoscope was advanced from mouth into the second portion of duodenum and retroflexion was performed in the stomach. The patient has multiple shallow ulcerations in the antrum of the stomach. Then, under endoscopic guidance and under sterile condition, a 20-[place] pull type of G-tube was successfully placed in epigastric area. The distance from the tip of the tube to skin was about 2 cm in size. The patient tolerated the procedure very well without any complications. SUMMARY OF FINDINGS: 1. Multiple shallow gastric ulcerations. 2. Status post successful PEG placement. RECOMMENDATIONS: 1. Abdominal binder. 2. Elevate the head of the bed at all times. 3. G-tube flush. 4. G-tube care. 5. Start tube feeding later today. 6. The patient is currently on antibiotics, we will continue. I want to thank Dr. Frederick for this kind referral. Jun Mena M.D. DR: ELIZABETH JOB#: [id number] CC:
--- NOTE | 2019-07-05 18:27 | Infectious Diseases Prog Note ---
Assessment/Plan Assessment/Plan ASSESSMENT AND PLAN: 1. streptococcus viridans bacteremia, ? endocarditis, aspiration pna/hcap, atx, sepsis, leukocytosis, fevers, sob, arf, rhabdomyolysis c.diff. - negative, wounds noted, pancreatitis, elevated lft's, no sputum culture obtained - meropenem and zyvox - day # 6/10 combination - monitor labs and chest x-ray - TTE - no vegetation mentioned in report - f/u cultures negative - CT and US noted, lft's better - continue treatment per primary and consultants - wound care per surgery - doubt sepsis source - clinically better, leukocytosis improving 2. Acute renal failure, crf - on hemodialysis 3. Rhabdomyolysis - per primary and renal medicine 4. Elevated LFTs. 5. CAD. 6. Non-STEMI. 7. No history of diabetes or hypertension. 8. Fall. 9. Altered level of consciousness. 10. Lumbar spine fracture. 11. No known drug allergies. 12. Social history is negative. 13. Family history is noncontributory. 14. MAR was noted. 15. Case was discussed with RN and family 16. Continue treatment per primary consultants. Subjective Constitutional: Denies: fever HEENT: Denies: congestion Respiratory: Denies: shortness of breath Cardiovascular: Denies: chest pain Gastrointestinal/Abdominal: Denies: nausea, vomiting, diarrhea Neurologic: Denies: headache Psychiatric: Denies: depression Skin: Denies: rash Hematologic: Denies: bleeding Musculoskeletal: Denies: pain Allergies: Coded Allergies: No Known Allergies (Unverified , 06/24/19) Objective Vital Signs Last 24 Hour Vital Signs Date Time Temp Pulse Resp B/P (MAP) Pulse Ox O2 Delivery O2 Flow Rate FiO2 07/05/19 16:00 98.2 90 19 98 07/05/19 13:49 91 20 100 07/05/19 12:20 98.1 92 18 99 07/05/19 12:05 97.8 91 20 110/78 100 Nasal Cannula 3 07/05/19 11:57 89 20 100 07/05/19 11:55 61 19 124/67 100 Nasal Cannula 3 07/05/19 11:50 94 18 135/70 100 Nasal Cannula 3 07/05/19 11:41 97.1 94 19 113/67 100 Nasal Cannula 3 07/05/19 09:00 Nasal Cannula 2.0 Nasal Cannula 2.0 07/05/19 08:00 98.6 94 18 107/65 (79) 97 07/05/19 07:13 94 20 98 Nasal Cannula 2.0 28 07/05/19 07:13 98 Nasal Cannula 2.0 28 07/05/19 04:00 98.7 92 22 100/59 (73) 98 07/05/19 00:00 98.9 96 23 98/64 (75) 98 07/04/19 21:00 Nasal Cannula 2.0 Nasal Cannula 2.0 07/04/19 20:00 98.9 100 20 99/51 (67) 99 07/04/19 19:16 99 Nasal Cannula 2.0 28 07/04/19 19:16 102 20 99 Nasal Cannula 2.0 28 Height (Feet): 5 Height (Inches): 3.00 Weight (Pounds): 116 General Appearance: no acute distress HEENT: normocephalic, atraumatic, anicteric, mucous membranes moist Respiratory/Chest: crackles/rales, rhonchi - bilaterally Cardiovascular: normal rate, regular rhythm, no gallop/murmur, no JVD Abdomen: normal bowel sounds, soft, non tender, no organomegaly, non distended Genitourinary: other - + [place] - urine slt cloudy Extremities: no cyanosis Skin: no rash Neurologic/Psychiatric: body former 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 normal, alert, responsive, other - weak, opens eyes Lymphatic: no neck adenopathy Musculoskeletal: no effusion Objective Procedure: XRAY Chest 1v Indication: Dyspnea Chest x-ray - 06/29/19 - Technique: One view of the chest Comparison: 06/25/2019 Findings: Interim expansion of previously atelectatic left lung. There is considerable interstitial and airspace disease throughout the left lung, however. Less extensive interstitial congestion is seen in the right lung. The heart size is normal. The aorta is tortuous and calcified Impression: Interim reexpansion of previously atelectatic left lung. However, there is considerable infiltrate and/or edema throughout the left lung. There is also persistent mild generalized interstitial congestion in the right lung CT Chest: IMPRESSION: Extensive airspace consolidation in the left lung involving the left perihilar, upper lobe and left lower lobe. Findings suspicious for pneumonia, especially aspiration given the abrupt onset. Please correlate clinically. Partial atelectasis of the left lower lobe also noted. Atherosclerotic vascular disease. Degenerative changes of the spine and scoliosis. CT abdomen and pelvis: IMPRESSION: No acute findings appreciated. Study limited by the lack of intravenous oral contrast as well as extensive motion artifact. 1.6 cm probable cystic lesion in the pancreatic tail. This requires further evaluation with the contrast CT or MR. Status post previous partial bowel resection. 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 Degenerative changes as described above. Chest x-ray - 07/01/19 - Procedure: XRAY Chest 1v Indication: Dyspnea Comparison: 06/30/2019 A single view chest radiograph was obtained. Findings: Interstitial densities demonstrated with cardiomegaly. There is blunting of the left costophrenic angle. There is a weighted feeding tube the tip of which is projected over the antrum and pyloric region. IMPRESSION: Mild interstitial edema presumably due to heart failure. Correlate clinically Abdominal US: IMPRESSION: No acute findings appreciated. Bilateral pleural effusions Cyst in the splenic hilar region. Contracted gallbladder with prominent wall. CT scan of abdomen and pelvis - 07/02/19 - Impression: 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 Otherwise unremarkable pancreas Small left pleural effusion, new since prior study of 06/24/2019. Bilateral basilar atelectasis and consolidation, increased from the prior exam No acute abnormality otherwise Nasogastric tube in good position Microbiology Date/Time Source Procedure Growth Status 06/29/19 14:25 Blood Blood Culture - Final NO GROWTH AFTER 5 DAYS Complete 06/30/19 18:00 Stool Clostridium difficile Toxin Assay - Final Complete 07/04/19 18:29 Urine,Clean Catch Urine Culture - Preliminary Resulted Microbiology Date/Time Source Procedure Growth Status 07/04/19 18:29 Urine,Clean Catch Urine Culture - Preliminary Resulted Laboratory Tests Test 07/04/19 18:29 07/05/19 05:30 Urine Color Brown Urine Appearance Slightly cloudy Urine pH 5 (4.5-8.0) Urine Specific [place] 1.010 (1.005-1.035) Urine Protein 4+ (NEGATIVE) H Urine Glucose (UA) Negative (NEGATIVE) Urine Ketones 1+ (NEGATIVE) H Urine Blood 5+ (NEGATIVE) H Urine Nitrite Negative (NEGATIVE) Urine Bilirubin Negative (NEGATIVE) Urine Urobilinogen Normal MG/DL (0.0-1.0) Urine Leukocyte Esterase 3+ (NEGATIVE) H Urine RBC 5-10 /HPF (0 - 2) H Urine WBC 40-60 /HPF (0 - 2) H Urine Squamous Epithelial Cells Few /LPF (NONE/OCC) Urine Bacteria Many /HPF (NONE) H Urine Yeast Moderate /HPF (NONE) H White Blood Count 18.7 K/UL (4.8-10.8) H Red Blood Count 2.78 M/UL (4.20-5.40) L Hemoglobin 8.2 G/DL (12.0-16.0) L Hematocrit 24.2 % (37.0-47.0) L Mean Corpuscular Volume 87 FL (80-99) Mean Corpuscular Hemoglobin 29.3 PG (27.0-31.0) Mean Corpuscular Hemoglobin Concent 33.7 G/DL (32.0-36.0) Red Cell Distribution Width 13.1 % (11.6-14.8) Platelet Count 258 K/UL (150-450) Mean Platelet Volume 8.8 FL (6.5-10.1) Neutrophils (%) (Auto) % (45.0-75.0) Lymphocytes (%) (Auto) % (20.0-45.0) Monocytes (%) (Auto) % (1.0-10.0) Eosinophils (%) (Auto) % (0.0-3.0) Basophils (%) (Auto) % (0.0-2.0) Differential Total Cells Counted 100 Neutrophils % (Manual) 82 % (45-75) H Lymphocytes % (Manual) 10 % (20-45) L Monocytes % (Manual) 8 % (1-10) Eosinophils % (Manual) 0 % (0-3) Basophils % (Manual) 0 % (0-2) Band Neutrophils 0 % (0-8) Platelet Estimate Adequate Platelet Morphology Normal Hypochromasia 1+ Sodium Level 132 MMOL/L (136-145) L Potassium Level 4.3 MMOL/L (3.5-5.1) Chloride Level 93 MMOL/L (98-107) L Carbon Dioxide Level 21 MMOL/L (21-32) Anion Gap 18 mmol/L (5-15) H Blood Urea Nitrogen 102 mg/dL (7-18) H Creatinine 5.2 MG/DL (0.55-1.30) H Estimat Glomerular Filtration Rate 9.5 mL/min (>60) Glucose Level 101 MG/DL (74-106) Calcium Level 8.9 MG/DL (8.5-10.1) Amylase Level 220 U/L (25-115) H Lipase > 2000 U/L (73-393) H Current Medications Medications (Trade) Dose Ordered Sig/Joan Route PRN Reason Start Time Stop Time Status Last Admin Dose Admin Acetaminophen (Tylenol) 650 mg Q4H PRN NG Mild Pain/Temp > 100.5 07/04/19 20:30 08/01/19 12:29 Acetylcysteine (Mucomyst) 100 mg Q4H PRN HHN Shortness of Breath 07/04/19 18:00 08/03/19 17:59 Albumin Human 100 ml @ 100 mls/hr NEEDED PRN IV DIALYSIS 07/04/19 19:00 08/03/19 18:59 Chlorhexidine Gluconate (Cari-Hex 2%) 1 applic DAILY@2000 TOPIC 07/04/19 20:00 07/26/19 19:59 07/04/19 20:53 Dextrose (Dextrose 50%) 25 ml Q30M PRN IV Hypoglycemia 07/04/19 20:00 07/24/19 19:51 Dextrose (Dextrose 50%) 50 ml Q30M PRN IV Hypoglycemia 07/04/19 20:00 07/24/19 19:51 Diphenhydramine HCl (Benadryl) 25 mg Q6H PRN ORAL Itching/Pruritis 07/04/19 20:00 07/24/19 19:51 Furosemide (Lasix) 40 mg DAILY IV 07/05/19 09:00 07/30/19 19:59 Gabapentin (Neurontin) 300 mg BID GT 07/05/19 09:00 08/01/19 17:59 07/05/19 17:59 Hydromorphone HCl (Dilaudid) 0.5 mg Q2H PRN IVP Severe Pain (Pain Scale 7-10) 07/04/19 20:30 07/09/19 12:29 Linezolid 300 ml @ 300 mls/hr EVERY 12 HOURS IVPB 07/04/19 21:00 07/07/19 20:59 07/04/19 20:54 Meropenem 500 mg/ Sodium Chloride 50 ml @ 100 mls/hr Q24HRS IVPB 07/05/19 17:30 07/08/19 17:29 07/05/19 18:00 Ondansetron HCl (Zofran) 4 mg Q4H PRN IVP Nausea & Vomiting 07/04/19 20:00 08/02/19 19:59 Pantoprazole (Protonix) 40 mg DAILY IVP 07/05/19 09:00 07/30/19 08:59 Ana Rosado MD Jul 05, 2019 18:27
[2019-07-05] MEDS: Dyna-Hex 2% Top Sol 2oz TOPIC SCH (21:17)
[2019-07-06] VITALS: BP 102/63
[2019-07-06] MEDS ORDERED: Haloperidol 5mg/ml Inj IM PRN (01:45)
--- NOTE | 2019-07-06 03:00 | Progress Note ---
DATE: 07/05/2019 SUBJECTIVE: The patient is transferred to 4th floor. The patient is asleep, arousable, not speaking. The patient is having episodes of agitation, however, much improved since previous encounter. The patient has p.r.n. medication. MENTAL STATUS EXAMINATION: The patient is alert and disoriented. Mood is agitated. Affect is flat. Thought process, there is a paucity of thought content. Thought content, no suicidal or homicidal ideation. Cognition is impaired. Insight and judgment are impaired. ASSESSMENT: 1. Acute encephalopathy. Dementia, mild. 2. Per family, the patient has been cognitively intact prior to the admission. PLAN: 1. Gabapentin 300 b.i.d. 2. Haldol p.r.n. Jaime Jackson M.D. DR: SAIMA JOB#: [id number] CC:
[2019-07-06 04:00] VITALS: BP 113/63
[2019-07-06 08:00] VITALS: BP 131/66
[2019-07-06 08:05] LABS: HEMATOCRIT 22.1 % (37.0-47.0); HEMOGLOBIN 7.4 G/DL (12.0-16.0); MEAN CORPUSCULAR VOLUME 88 FL (80-99); PLATELET COUNT 290 K/UL (150-450); RED BLOOD COUNT 2.52 M/UL (4.20-5.40); RED CELL DISTRIBUTION WIDTH 13.3 % (11.6-14.8); WHITE BLOOD COUNT 14.7 K/UL (4.8-10.8)
[2019-07-06] MEDS: Gabapentin 300 MG/6 ML Soln GT SCH ×2 (08:47→17:07)
[2019-07-06] MEDS: Pantoprazole Inj IVP SCH (08:47)
[2019-07-06 08:57] LABS: ALANINE AMINOTRANSFERASE 58 U/L (12-78); ALBUMIN/GLOBULIN RATIO 1.5 (1.0-2.7); ALKALINE PHOSPHATASE 75 U/L (46-116); ANION GAP 14 mmol/L (5-15); ASPARTATE AMINO TRANSFERASE 49 U/L (15-37); BLOOD UREA NITROGEN 50 mg/dL (7-18); CALCIUM 9.9 MG/DL (8.5-10.1); CARBON DIOXIDE 29 MMOL/L (21-32); CHLORIDE 104 MMOL/L (98-107); CREATININE 2.6 MG/DL (0.55-1.30); POTASSIUM 3.4 MMOL/L (3.5-5.1); SODIUM 146 MMOL/L (136-145)
--- NOTE | 2019-07-06 09:15 | Pulmonology Progress Note ---
Assessment/Plan Assessment/Plan KAREN rhabdo toxic met encephalopathy pneumonia acute respiratory failure hypoxemia advanced age leukocytosis possible sepsis anemia PLAN care noted antibiotics respiratory care monitor acid base for now follow up imaging oxygen and taper off load aspiration precautions monitor for change and advise impression, plan, and exam edited and reviewed in detail care discussed with RN Subjective ROS Limited/Unobtainable: Yes Allergies: Coded Allergies: No Known Allergies (Unverified , 06/24/19) Subjective COVERAGE FOR DR TNEA care noted on oxygen events reviewed and discussed Objective Last 24 Hour Vital Signs Date Time Temp Pulse Resp B/P (MAP) Pulse Ox O2 Delivery O2 Flow Rate FiO2 07/06/19 08:00 98.3 108 20 131/66 (87) 98 07/06/19 04:00 98.4 105 21 113/63 (80) 98 07/06/19 00:00 98.0 90 21 102/63 (76) 95 07/05/19 21:00 Nasal Cannula 2.0 Nasal Cannula 2.0 07/05/19 20:04 94 20 95 Nasal Cannula 2.0 28 07/05/19 20:04 95 Nasal Cannula 2.0 28 07/05/19 20:00 98.0 95 22 100/60 (73) 95 07/05/19 16:00 98.2 90 19 98 07/05/19 13:49 91 20 100 07/05/19 12:20 98.1 92 18 99 07/05/19 12:05 97.8 91 20 110/78 100 Nasal Cannula 3 07/05/19 11:57 89 20 100 07/05/19 11:55 61 19 124/67 100 Nasal Cannula 3 07/05/19 11:50 94 18 135/70 100 Nasal Cannula 3 07/05/19 11:41 97.1 94 19 113/67 100 Nasal Cannula 3 Intake and Output 07/05/19 07/06/19 19:00 07:00 Intake Total 140 ml 300 ml Output Total 100 ml 0 ml Balance 40 ml 300 ml IV Total 100 ml 300 ml Tube Feeding 40 ml Hemodialysis 0 ml Output Urine Total 100 ml Hemodialysis UF 0 ml # Voids 1 # Bowel Movements 2 2 Objective WDWN NAD reduced LOC on oxygen reduced breath sounds bilaterally without rhonchi or wheeze [id number] without MRG NABS nontender no HSM no CCE skin noted Microbiology Date/Time Source Procedure Growth Status 07/04/19 18:29 Urine,Clean Catch Urine Culture - Preliminary YEAST Resulted Laboratory Tests 07/06/19 05:40: White Blood Count 14.7H, Red Blood Count 2.52L, Hemoglobin 7.4L, Hematocrit 22.1L, Mean Corpuscular Volume 88, Mean Corpuscular Hemoglobin 29.3, Mean Corpuscular Hemoglobin Concent 33.4, Red Cell Distribution Width 13.3, Platelet Count 290, Mean Platelet Volume 7.8, Neutrophils (%) (Auto) , Lymphocytes (%) ( Auto) , Monocytes (%) (Auto) , Eosinophils (%) (Auto) , Basophils (%) (Auto) , Neutrophils % (Manual) [Pending], Lymphocytes % (Manual) [Pending], Platelet Estimate [Pending], Platelet Morphology [Pending], Sodium Level 146H, Potassium Level 3.4L, Chloride Level 104, Carbon Dioxide Level 29, Anion Gap 14, Blood Urea Nitrogen 50H, Creatinine 2.6H, Estimat Glomerular Filtration Rate 21.1, Glucose Level 96, Calcium Level 9.9, Iron Level [Pending], Unsaturated Iron Binding [Pending], Ferritin [Pending], Total Bilirubin 1.0, Aspartate Amino Transf (AST/SGOT) 49H, Alanine Aminotransferase (ALT/SGPT) 58, Alkaline Phosphatase 75, Total Protein 6.7, Albumin 4.0, Globulin 2.7, Albumin/Globulin Ratio 1.5 Current Medications Medications (Trade) Dose Ordered Sig/Joan Route PRN Reason Start Time Stop Time Status Last Admin Dose Admin Acetaminophen (Tylenol) 650 mg Q4H PRN NG Mild Pain/Temp > 100.5 07/04/19 20:30 08/01/19 12:29 Acetylcysteine (Mucomyst) 100 mg Q4H PRN HHN Shortness of Breath 07/04/19 18:00 08/03/19 17:59 Albumin Human 100 ml @ 100 mls/hr NEEDED PRN IV DIALYSIS 07/04/19 19:00 08/03/19 18:59 07/06/19 01:30 Chlorhexidine Gluconate (Cari-Hex 2%) 1 applic DAILY@2000 TOPIC 07/04/19 20:00 07/26/19 19:59 07/05/19 21:17 Dextrose (Dextrose 50%) 25 ml Q30M PRN IV Hypoglycemia 07/04/19 20:00 07/24/19 19:51 Dextrose (Dextrose 50%) 50 ml Q30M PRN IV Hypoglycemia 07/04/19 20:00 07/24/19 19:51 Diphenhydramine HCl (Benadryl) 25 mg Q6H PRN ORAL Itching/Pruritis 07/04/19 20:00 07/24/19 19:51 Epoetin Dion (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)) 6,000 unit MON-MON-MON SUBQ 07/08/19 21:00 08/07/19 20:59 Furosemide (Lasix) 40 mg DAILY IV 07/05/19 09:00 07/30/19 19:59 Gabapentin (Neurontin) 300 mg BID GT 07/05/19 09:00 08/01/19 17:59 07/06/19 08:47 Haloperidol Lactate (Haldol) 5 mg Q6H PRN IM Agitation 07/06/19 01:45 08/20/19 01:44 Hydromorphone HCl (Dilaudid) 0.5 mg Q2H PRN IVP Severe Pain (Pain Scale 7-10) 07/04/19 20:30 07/09/19 12:29 Linezolid 300 ml @ 300 mls/hr EVERY 12 HOURS IVPB 07/05/19 21:00 07/08/19 20:59 07/06/19 08:49 Meropenem 500 mg/ Sodium Chloride 50 ml @ 100 mls/hr Q24HRS IVPB 07/05/19 17:30 07/08/19 17:29 07/05/19 18:00 Ondansetron HCl (Zofran) 4 mg Q4H PRN IVP Nausea & Vomiting 07/04/19 20:00 08/02/19 19:59 Pantoprazole (Protonix) 40 mg DAILY IVP 07/05/19 09:00 07/30/19 08:59 07/06/19 08:47 Boo Raymond MD Jul 06, 2019 09:15
[2019-07-06 09:33] LABS: % IRON SATURATION 18 % (15-50); IRON 25 ug/dL (50-175); TOTAL IRON BINDING CAPACITY 141 ug/dL (250-450)
[2019-07-06 09:39] LABS: FERRITIN 1363 NG/ML (8-388)
--- NOTE | 2019-07-06 10:07 | Diagnostic Imaging Report ---
EXAM: XR Chest, 1 View CLINICAL HISTORY: INFECT TECHNIQUE: Frontal view of the chest. COMPARISON: Chest x-ray 07/01/19 FINDINGS: Lungs: Pulmonary vascular congestion. Left lung base/retrocardiac subsegmental atelectasis versus infiltrate. Pleural space: Possible small layering pleural effusions, greater on the left. Heart: Unremarkable. No cardiomegaly. Mediastinum: Unremarkable. Bones/joints: Degenerative changes throughout the visualized spine and shoulder joints. Vasculature: Atherosclerotic calcifications within the aortic arch. IMPRESSION: 1. No significant interval change from the prior chest x-ray. 2. Pulmonary vascular congestion and/or pulmonary interstitial edema. 3. Possible small layering pleural effusions, greater on the left. 4. Left lung base/retrocardiac subsegmental atelectasis versus infiltrate.
--- NOTE | 2019-07-06 11:43 | Cardiology Progress Note ---
Assessment/Plan Status: stable Assessment/Plan Assessment/Plan Status: stable Assessment/Plan: Assessment Elevated troponin Syncope. Elevated LFT KAREN/CKD Rhabdomyolysis Plan d/c Trend troponin Monitor on telemetry Echocardiogram reviewed Stress test prior to discharge Hold heparin PEG tube placement - clear to proceed Maintain HD Abx per ID/pulm Pulmonary toilet Supportive care Clear to proceed with PEG tube Subjective Cardiovascular: Reports: no symptoms Respiratory: Reports: no symptoms Gastrointestinal/Abdominal: Reports: no symptoms Genitourinary: Reports: no symptoms Subjective No acute events, s/p PEG tube, tolerated HD, no distress, awaiting final dispo and plans per daughter Objective Last 24 Hour Vital Signs Date Time Temp Pulse Resp B/P (MAP) Pulse Ox O2 Delivery O2 Flow Rate FiO2 07/06/19 09:00 Nasal Cannula 2.0 Nasal Cannula 2.0 07/06/19 08:00 98.3 108 20 131/66 (87) 98 07/06/19 04:00 98.4 105 21 113/63 (80) 98 07/06/19 00:00 98.0 90 21 102/63 (76) 95 07/05/19 21:00 Nasal Cannula 2.0 Nasal Cannula 2.0 07/05/19 20:04 94 20 95 Nasal Cannula 2.0 28 07/05/19 20:04 95 Nasal Cannula 2.0 28 07/05/19 20:00 98.0 95 22 100/60 (73) 95 07/05/19 16:00 98.2 90 19 98 07/05/19 13:49 91 20 100 07/05/19 12:20 98.1 92 18 99 07/05/19 12:05 97.8 91 20 110/78 100 Nasal Cannula 3 07/05/19 11:57 89 20 100 07/05/19 11:55 61 19 124/67 100 Nasal Cannula 3 07/05/19 11:50 94 18 135/70 100 Nasal Cannula 3 General Appearance: no apparent distress EENT: PERRL/EOMI, normal ENT inspection, TMs normal, pharynx normal Neck: non-tender, normal alignment, supple, normal inspection, no JVD Rhythm: NSR Cardiovascular: normal peripheral pulses, normal rate, regular rhythm Respiratory/Chest: chest wall non-tender, lungs clear, normal breath sounds, no respiratory distress Abdomen: normal bowel sounds, non tender, soft, no organomegaly, no mass Extremities: normal range of motion, non-tender, normal inspection, no calf tenderness, no swelling Neurologic: loss claim clerk 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 normal, no motor/sensory deficits Intake and Output 07/05/19 07/06/19 19:00 07:00 Intake Total 140 ml 300 ml Output Total 100 ml 0 ml Balance 40 ml 300 ml IV Total 100 ml 300 ml Tube Feeding 40 ml Hemodialysis 0 ml Output Urine Total 100 ml Hemodialysis UF 0 ml # Voids 1 # Bowel Movements 2 2 Laboratory Tests Test 07/06/19 05:40 White Blood Count 14.7 K/UL (4.8-10.8) H Red Blood Count 2.52 M/UL (4.20-5.40) L Hemoglobin 7.4 G/DL (12.0-16.0) L Hematocrit 22.1 % (37.0-47.0) L Mean Corpuscular Volume 88 FL (80-99) Mean Corpuscular Hemoglobin 29.3 PG (27.0-31.0) Mean Corpuscular Hemoglobin Concent 33.4 G/DL (32.0-36.0) Red Cell Distribution Width 13.3 % (11.6-14.8) Platelet Count 290 K/UL (150-450) Mean Platelet Volume 7.8 FL (6.5-10.1) Neutrophils (%) (Auto) % (45.0-75.0) Lymphocytes (%) (Auto) % (20.0-45.0) Monocytes (%) (Auto) % (1.0-10.0) Eosinophils (%) (Auto) % (0.0-3.0) Basophils (%) (Auto) % (0.0-2.0) Differential Total Cells Counted 100 Neutrophils % (Manual) 93 % (45-75) H Lymphocytes % (Manual) 5 % (20-45) L Monocytes % (Manual) 2 % (1-10) Eosinophils % (Manual) 0 % (0-3) Basophils % (Manual) 0 % (0-2) Band Neutrophils 0 % (0-8) Platelet Estimate Adequate Platelet Morphology Normal Hypochromasia 2+ Sodium Level 146 MMOL/L (136-145) H Potassium Level 3.4 MMOL/L (3.5-5.1) L Chloride Level 104 MMOL/L (98-107) Carbon Dioxide Level 29 MMOL/L (21-32) Anion Gap 14 mmol/L (5-15) Blood Urea Nitrogen 50 mg/dL (7-18) H Creatinine 2.6 MG/DL (0.55-1.30) H Estimat Glomerular Filtration Rate 21.1 mL/min (>60) Glucose Level 96 MG/DL (74-106) Calcium Level 9.9 MG/DL (8.5-10.1) Iron Level 25 ug/dL (50-175) L Total Iron Binding Capacity 141 ug/dL (250-450) L Percent Iron Saturation 18 % (15-50) Unsaturated Iron Binding 116 ug/dL (112-346) Ferritin 1363 NG/ML (8-388) H Total Bilirubin 1.0 MG/DL (0.2-1.0) Aspartate Amino Transf (AST/SGOT) 49 U/L (15-37) H Alanine Aminotransferase (ALT/SGPT) 58 U/L (12-78) Alkaline Phosphatase 75 U/L (46-116) Total Protein 6.7 G/DL (6.4-8.2) Albumin 4.0 G/DL (3.4-5.0) Globulin 2.7 g/dL Albumin/Globulin Ratio 1.5 (1.0-2.7) Microbiology Date/Time Source Procedure Growth Status 07/04/19 18:29 Urine,Clean Catch Urine Culture - Preliminary YEAST Resulted Melchor Cerna MD Jul 06, 2019 11:43
[2019-07-06 12:00] VITALS: BP 115/63
--- NOTE | 2019-07-06 14:03 | Surgery Progress Note ---
Surgery Progress Note Subjective Procedure Performed Left femoral temporary hemodialysis catheter insertion Additional Comments no acute events comfortable family at bedside all questions answered peg toby left groin hd cath toby will need to consider cath change soon Objective Last 24 Hour Vital Signs Date Time Temp Pulse Resp B/P (MAP) Pulse Ox O2 Delivery O2 Flow Rate FiO2 07/06/19 12:00 98.3 110 20 115/63 (80) 100 07/06/19 09:00 Nasal Cannula 2.0 Nasal Cannula 2.0 07/06/19 08:00 98.3 108 20 131/66 (87) 98 07/06/19 04:00 98.4 105 21 113/63 (80) 98 07/06/19 00:00 98.0 90 21 102/63 (76) 95 07/05/19 21:00 Nasal Cannula 2.0 Nasal Cannula 2.0 07/05/19 20:04 94 20 95 Nasal Cannula 2.0 28 07/05/19 20:04 95 Nasal Cannula 2.0 28 07/05/19 20:00 98.0 95 22 100/60 (73) 95 07/05/19 16:00 98.2 90 19 98 I&O Intake and Output 07/05/19 07/06/19 19:00 07:00 Intake Total 140 ml 300 ml Output Total 100 ml 0 ml Balance 40 ml 300 ml IV Total 100 ml 300 ml Tube Feeding 40 ml Hemodialysis 0 ml Output Urine Total 100 ml Hemodialysis UF 0 ml # Voids 1 # Bowel Movements 2 2 Dressing: other Wound: other Drains: other Cardiovascular: RSR Respiratory: decreased breath sounds Abdomen: soft, non-tender, present bowel sounds Extremities: no tenderness, no cyanosis Laboratory Tests Test 07/06/19 05:40 White Blood Count 14.7 K/UL (4.8-10.8) H Red Blood Count 2.52 M/UL (4.20-5.40) L Hemoglobin 7.4 G/DL (12.0-16.0) L Hematocrit 22.1 % (37.0-47.0) L Mean Corpuscular Volume 88 FL (80-99) Mean Corpuscular Hemoglobin 29.3 PG (27.0-31.0) Mean Corpuscular Hemoglobin Concent 33.4 G/DL (32.0-36.0) Red Cell Distribution Width 13.3 % (11.6-14.8) Platelet Count 290 K/UL (150-450) Mean Platelet Volume 7.8 FL (6.5-10.1) Neutrophils (%) (Auto) % (45.0-75.0) Lymphocytes (%) (Auto) % (20.0-45.0) Monocytes (%) (Auto) % (1.0-10.0) Eosinophils (%) (Auto) % (0.0-3.0) Basophils (%) (Auto) % (0.0-2.0) Differential Total Cells Counted 100 Neutrophils % (Manual) 93 % (45-75) H Lymphocytes % (Manual) 5 % (20-45) L Monocytes % (Manual) 2 % (1-10) Eosinophils % (Manual) 0 % (0-3) Basophils % (Manual) 0 % (0-2) Band Neutrophils 0 % (0-8) Platelet Estimate Adequate Platelet Morphology Normal Hypochromasia 2+ Sodium Level 146 MMOL/L (136-145) H Potassium Level 3.4 MMOL/L (3.5-5.1) L Chloride Level 104 MMOL/L (98-107) Carbon Dioxide Level 29 MMOL/L (21-32) Anion Gap 14 mmol/L (5-15) Blood Urea Nitrogen 50 mg/dL (7-18) H Creatinine 2.6 MG/DL (0.55-1.30) H Estimat Glomerular Filtration Rate 21.1 mL/min (>60) Glucose Level 96 MG/DL (74-106) Calcium Level 9.9 MG/DL (8.5-10.1) Iron Level 25 ug/dL (50-175) L Total Iron Binding Capacity 141 ug/dL (250-450) L Percent Iron Saturation 18 % (15-50) Unsaturated Iron Binding 116 ug/dL (112-346) Ferritin 1363 NG/ML (8-388) H Total Bilirubin 1.0 MG/DL (0.2-1.0) Aspartate Amino Transf (AST/SGOT) 49 U/L (15-37) H Alanine Aminotransferase (ALT/SGPT) 58 U/L (12-78) Alkaline Phosphatase 75 U/L (46-116) Total Protein 6.7 G/DL (6.4-8.2) Albumin 4.0 G/DL (3.4-5.0) Globulin 2.7 g/dL Albumin/Globulin Ratio 1.5 (1.0-2.7) Plan Problems: (1) Fall Assessment & Plan: 88 year old female s/p fall now with renal insufficiency requiring HD spoke with family. she has known CKD multiple decubitus ulcers from being down malnutrition line placed see documentation trend labs abx HD thank you prognosis guarded family at bedside cxr noted pna worsening R cheek pressure injury resolved. Unstageable pressure injury R shoulder now has 90% necrosis,surrounding 10% pink granulation(L()4.1cm x (W)3.3cm. No odor or exudate noted.No erythema or induration periwound. Reabsorbed DTPI R Humerus. Base of wound is dry,brown with pink epithelial at the distal base of wound(L)9.4cm x (W)3.1cm. DTPI R elbow has resolved. Scattered dry brown peeling skin noted. No erythema noted. DTPI sacrum less indurated (L)4.5cm x (W)6cm. Small opening at cleft that is corby and moist(L)1.5cm x (W)0.3cm. No exudate noted. L ischial DTPI reabsorbed(L)6cm x (W)7cm. Base of injury black. No erythema or evidence of further breakdown periwound. Unstageable pressure injury R hip(L)8.9cm x (W)14.2cm. Base of wound has 50% slough ,25% soft necrosis, 25% pink granulation along borders.Edges adherent to base of wound. No odor or exudate noted. DTPI medial/posterior L heel reabsorbed. Base of injury is boggy but blanchable. Unstageable Pressure Injury L Hallux resolving.(L)4.3cm x (W)3.7cm. Base of wound is 60% necrotic,10% slough with surrounding 30% pink granulation. Marginal erythema periwound. Small amt purulent exudate noted. No odor noted. DTPI medial L malleolus reabsorbed. Dry brown patch noted. Reabsorbed blood blisters L 1st,2nd and 3rd metatarsals. Dry brown patches noted dorsally all 3 metatarsals. R heel DTPI resolving. R heel is boggy but blanchable. Unstageable pressure injury lateral R malleolus. Base of wound has scattered slough. Borders are macerated with marginal erythema periwound.(L)0.7cm x (W) 1.3cm. No erythema or fluctuance periwound. DTPI distal/lateral R foot resolving. Base of injury is maroon /fluctuant. No erythema or induration periwound. DTPI lateral R 5th metatarsal resolved. Wound care provided. Wound Tx are effective and continued as ordered. All wound prevention protocols continued as care-planned. Family member at bedside and updated on wound progress. DAILY ESTIMATED NEEDS: Needs based on Wounds, 51.8kg 30-35 kcals/kg 8233-2089 total kcals 1.25-1.5 g protein/kg 65-78 g total protein 25-30ml/kcal mL/kg 3495-1896 total fluid mLs NUTRITION DIAGNOSIS: * Increased kcal and pro needs r/t wound healing and renal failure as evidenced by, s/p fall w/ pressure wounds per MD, refer to WC eval, ARF needing HD. * Swallowing difficulty R/T dysphagia as evidenced by s/p NGT placement, plan for PEG placement w/ consent and medical clearance, TF held for possible pancreatitis. CURRENT TF:NPO- TF HELD FOR POSSIBLE PANCREATITIS ENTERAL NUTRITION RECOMMENDATIONS: NEPRO @36ml/hr x24 hrs to provide 864ml, 1555 kcal, 70g pro, 628ml free H2O free H2O - As medically appropriate, resume TF - Start @16ml/hr for 8 hrs, advance as tolerated 5ml/hr q4-6 hrs to goal. - Flush per MD/ HOB Over 30 degrees - PT AT HIGH RISK FOR REFEEDING SYNDROME, MONITOR LYTES DAILY, REPLETE NEEDED ADDITIONAL RECOMMENDATIONS: 1) Monitor ability to resume TF NGT feeds held 06/30 for possible pancreatitis. If unable to feed via GI, consider initiating TPN due to proloned NPO, minimal intake status 2) WOUND CARE: W/ active TF order add VASQUEZ in 4oz H2O BID 3) Rec added dextrose when NPO 4) Calibrated bed scale wts daily 5) Monitor lytes closely w/ TF- high risk for refeeding syndrome (2) Altered level of consciousness (3) Fracture of lumbar spine Assessment & Plan: Lungs: There is increased density at the lung bases likely atelectasis. Aorta is moderately calcified. There is a small hiatal hernia.. Liver: Grossly unremarkable. There is artifact limiting evaluation in addition to the fact that no IV or oral contrast was given for this examination. Gallbladder/biliary system: Grossly unremarkable. Spleen: Unremarkable Pancreas: In the area of the pancreatic tail there is a 1.6 cm nodular density which may be cystic. Further evaluation is recommended. Kidneys/Bladder: Vascular calcifications are quite extensive and extend to the hilum of both kidneys. Evaluation for punctate nonobstructive stones is limited in this setting but no definite stones seen. There is no hydronephrosis. Extensive breathing motion limiting evaluation.. Adrenal glands: Unremarkable Bowel: Patient's prior partial bowel resection in the right lower abdomen with anastomotic sutures noted. There is no evidence of a bowel obstruction or inflammatory changes. Appendix is not seen definitely but there are no signs of appendicitis. A few diverticula are noted within the colon. Aorta/IVC: There is a severe calcification of aorta and multiple branches of the aorta. Peritoneum: There is no free fluid. Bones: Bones are diffusely osteopenic. Multiple compression fracture deformities of several vertebra noted including lower thoracic vertebra and L1. There is narrowing of intervertebral discs and accompanying endplate osteophyte formation. Hypertrophied facet joints also demonstrated. Scoliosis of the lower thoracic spine convex to the right and left convex lumbar scoliosis noted. IMPRESSION: No acute findings appreciated. Study limited by the lack of intravenous oral contrast as well as extensive motion artifact. 1.6 cm probable cystic lesion in the pancreatic tail. This requires further evaluation with the contrast CT or MR. Status post previous partial bowel resection. 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 Degenerative changes as described above. (4) Rhabdomyolysis (5) KAREN (acute kidney injury) (6) Decubitus skin ulcer Assessment & Plan: Pt presented on admission with multiple pressure injuries. Pt's niece Sarah stated pt lives alone and found pt laying on her R side on floor in patient's home.Niece believes pt has been laying on floor for approx 5 days. DTPI noted to R cheek. Base of wound is purple with marginal erythema along borders.(L)1.2cm x (W)1.6cm. Unstageable pressure injury R shoulder. Base of wound is 100% necrotic with marginal erythema along borders.(L)4.8cm x (W).3.5cm . DTPI R humerus. Base of wound is fluctuant and maroon in colour with surrounding erythema. (L)10.6cm x (W)3.1cm. DTPI R elbow.Base of wound is indurated with scattered areas that are purple in colour. An area of fluctuance in center. Marginal erythema along borders.(L) 5.3cm x (W)10.4cm. Partially opened Sacral DTPI. Base of wound is purple with surrounding erythema. Partial open wound cleft that is corby and moist.(L)5.3cm x (W) 4.5cm.NO odor or exudate noted. Non-blanching erythema periwound. DTPI L ischium . Base of wound is purple and indurated.(L)6cm x (W)7.5cm. Unstageable pressure injury R hip. Base of wound is 75% necrotic, 25% mixed erythema and slough. Borders are moist,soft with scattered areas that are black. Periwound is dusky and indurated.No odor or exudate noted. DTPI at posterior and medial aspect of L heel. Base of wound is maroon and fluctuant(L)4cm x (W)7cm. Unstageable pressure injury L Hallux. Base of wound is 100% necrotic but soft. Borders are erythematous. Periwound without induration or fluctuance.(L)2.5cm x (W)3cm. DTPI medial L malleolus. Base of wound fluctuant and maroon in colour.(L) 0.3cm x (W)1.2cm. DTPI medial L malleolus. Base of wound fluctuant and maroon in colour with Marginal erythema along borders.(L)0.3cm x (W)1.2cm. Intact blood filled blisters noted to L 1st Metatarsal laterally and head of metatarsal. Intact blood filled blisters noted to heads of L 2nd and L 3rd metatarsals. DTPI noted to posterior and lateral R Heel. Posterior R heel is maroon in colour and fluctuant at base. Laterally ,R heel is black and fluctuant at base.Periwound is boggy and non-blanchable.(L)7cm x (W)8cm. Unstageable pressure injury lateral R malleolus. Base of wound is 100% necrotic and dry.Marginal erythema along borders.Periwound is fluctuant and erythematous( L)1.2cm x (W)1.5cm. DTPI distal/lateral R foot. Base of wound is fluctuant and maroon in colour.(L) 1.3cm x (W)1.7cm. DTPI lateral R 5th metatarsal. Base of wound is maroon and fluctuant with marginal erythema along borders .(L)0.7cm x (W)1.1cm Tx.Plan: Cleanse Wound R shoulder with Saline. Apply Therahoney. Apply Cavilon Skin barrier periwound. Cover with Optifoam drsg every 3 days and prn. Cleanse R hip wound with Saline. Apply Therahoney with 4x4 Gauze. Apply Moisture Barrier Paste periwound.Cover with Optifoam drsg. Daily and prn. Apply Moisture Barrier Paste to Sacral wound and L Ischium. Cover each wound with Optifoam drsg every 3 days and prn. Apply Betadine to R humerus and R elbow . Cover each wound with Optifoam drsg. Change every 3 days and prn. Apply Betadine to wounds R heel, R malleolus and R foot . Cover each wound with Optifoam drsg every 3 days and prn. Apply Betadine to wounds L heel ,L medial malleolus and L foot. Cover each wound with Optifoam drsgs every 3 Days and prn. Air Fluidized Mattress. Reposition at least every 2hours or as tolerated. Place Pillow between knees. Off-load heels with pillow. Anshul Nava Jul 06, 2019 14:03
[2019-07-06 16:00] VITALS: BP 122/89
--- NOTE | 2019-07-06 17:45 | General Progress Note ---
Assessment/Plan Problem List: (1) Fall ICD Codes: W19.XXXA - Unspecified fall, initial encounter SNOMED: 7560955, 583398423 (2) Altered level of consciousness ICD Codes: R40.4 - Transient alteration of awareness SNOMED: 5531162 (3) Fracture of lumbar spine ICD Codes: S32.009A - Unspecified fracture of unspecified lumbar vertebra, initial encounter for closed fracture SNOMED: 765239019 (4) Rhabdomyolysis ICD Codes: M62.82 - Rhabdomyolysis SNOMED: 413235706 (5) KAREN (acute kidney injury) ICD Codes: N17.9 - Acute kidney failure, unspecified SNOMED: 3385271, 61943981 Status: stable Assessment/Plan: #Rhabdomyolosis #KAREN #Acute renal failure - on HD UF #Uremic encephalopathy #Anion gap metabolic acidosis #Lactic acidosis -resolved -Nephrology following for HD -Permcath placement on Monday by IR #Left lung PNA - likely aspiration #Acute hypoxic respiratory failure s/p BiPAP - improved #Strep Viridans bacteremia #Worsening Leukocytosis #loose stools Noted to be acutely hypoxic on early AM of 06/25 -s/p BiPAP -> NC/room air intermittently -CT chest, CXR with left lung infiltrate. -ABG prn. -Pulmonology following -echo negative for vegetations -CXR 06/28: Bilateral interstitial thickening and patchy airspace opacities in the left lung, similar to prior study given differences in technique. -ID following - Now on Zyvox and meropenem, will discuss duration with ID -Stool C. diff negative,oral vanco stopped #Dysphagia -s/p PEG -Continue TF #L1 vertebral fracture - likely old seen on imaging, likely old. -reassurance provided to family. #Transaminitis #Acute pancreatitis ?from dehydration, abd exam benign. -continue to trend LFT's, numbers improving -GI following #Type 2 NSTEMI likely demand in setting of renal failure. EKG wnl. -no need to trend. -cardiology consulted - pt will need stress test prior to d/c #Pressure wounds. -General surgery consulted for wound care, central line insertion on 06/24 -Cont. wound care and offloading Time of note doesn't reflect time of encounter. Subjective Date patient seen: Jul 06, 2019 ROS Limited/Unobtainable: Yes Allergies: Coded Allergies: No Known Allergies (Unverified , 06/24/19) Subjective Resting in bed. making nonsensical sounds, moaning. not following commands. Objective Last 24 Hour Vital Signs Date Time Temp Pulse Resp B/P (MAP) Pulse Ox O2 Delivery O2 Flow Rate FiO2 07/06/19 16:00 98.2 69 17 122/89 (100) 93 07/06/19 12:00 98.3 110 20 115/63 (80) 100 07/06/19 09:00 Nasal Cannula 2.0 Nasal Cannula 2.0 07/06/19 08:00 98.3 108 20 131/66 (87) 98 07/06/19 04:00 98.4 105 21 113/63 (80) 98 07/06/19 00:00 98.0 90 21 102/63 (76) 95 07/05/19 21:00 Nasal Cannula 2.0 Nasal Cannula 2.0 07/05/19 20:04 94 20 95 Nasal Cannula 2.0 28 07/05/19 20:04 95 Nasal Cannula 2.0 28 07/05/19 20:00 98.0 95 22 100/60 (73) 95 Intake and Output 07/05/19 07/06/19 19:00 07:00 Intake Total 140 ml 300 ml Output Total 100 ml 0 ml Balance 40 ml 300 ml IV Total 100 ml 300 ml Tube Feeding 40 ml Hemodialysis 0 ml Output Urine Total 100 ml Hemodialysis UF 0 ml # Voids 1 # Bowel Movements 2 2 Laboratory Tests 07/06/19 05:40: White Blood Count 14.7H, Red Blood Count 2.52L, Hemoglobin 7.4L, Hematocrit 22.1L, Mean Corpuscular Volume 88, Mean Corpuscular Hemoglobin 29.3, Mean Corpuscular Hemoglobin Concent 33.4, Red Cell Distribution Width 13.3, Platelet Count 290, Mean Platelet Volume 7.8, Neutrophils (%) (Auto) , Lymphocytes (%) ( Auto) , Monocytes (%) (Auto) , Eosinophils (%) (Auto) , Basophils (%) (Auto) , Differential Total Cells Counted 100, Neutrophils % (Manual) 93H, Lymphocytes % (Manual) 5L, Monocytes % (Manual) 2, Eosinophils % (Manual) 0, Basophils % ( Manual) 0, Band Neutrophils 0, Platelet Estimate Adequate, Platelet Morphology Normal, Hypochromasia 2+, Sodium Level 146H, Potassium Level 3.4L, Chloride Level 104, Carbon Dioxide Level 29, Anion Gap 14, Blood Urea Nitrogen 50H, Creatinine 2.6H, Estimat Glomerular Filtration Rate 21.1, Glucose Level 96, Calcium Level 9.9, Iron Level 25L, Total Iron Binding Capacity 141L, Percent Iron Saturation 18, Unsaturated Iron Binding 116, Ferritin 1363H, Total Bilirubin 1.0, Aspartate Amino Transf (AST/SGOT) 49H, Alanine Aminotransferase ( ALT/SGPT) 58, Alkaline Phosphatase 75, Total Protein 6.7, Albumin 4.0, Globulin 2.7, Albumin/Globulin Ratio 1.5 Height (Feet): 5 Height (Inches): 3.00 Weight (Pounds): 116 General Appearance: no apparent distress Cardiovascular: normal rate, regular rhythm Respiratory/Chest: lungs clear, normal breath sounds Abdomen: non tender, soft René Rollins M.D. Jul 06, 2019 17:45
--- NOTE | 2019-07-06 18:34 | General Progress Note ---
Assessment/Plan Status: stable Assessment/Plan: Assessment - dysphagia - KAREN - s/p GT - AMS - abnormal LFT - Pancreatic cyst - Anemia - OB (+) Recommendations - Follow labs - Elevate HOB - Continue TF - GT care Subjective Allergies: Coded Allergies: No Known Allergies (Unverified , 06/24/19) Subjective seen with family at bedside tolerating TF non communicative Objective Last 24 Hour Vital Signs Date Time Temp Pulse Resp B/P (MAP) Pulse Ox O2 Delivery O2 Flow Rate FiO2 07/06/19 16:00 98.2 69 17 122/89 (100) 93 07/06/19 12:00 98.3 110 20 115/63 (80) 100 07/06/19 09:00 Nasal Cannula 2.0 Nasal Cannula 2.0 07/06/19 08:00 98.3 108 20 131/66 (87) 98 07/06/19 04:00 98.4 105 21 113/63 (80) 98 07/06/19 00:00 98.0 90 21 102/63 (76) 95 07/05/19 21:00 Nasal Cannula 2.0 Nasal Cannula 2.0 07/05/19 20:04 94 20 95 Nasal Cannula 2.0 28 07/05/19 20:04 95 Nasal Cannula 2.0 28 07/05/19 20:00 98.0 95 22 100/60 (73) 95 Intake and Output 07/05/19 07/06/19 19:00 07:00 Intake Total 140 ml 300 ml Output Total 100 ml 0 ml Balance 40 ml 300 ml IV Total 100 ml 300 ml Tube Feeding 40 ml Hemodialysis 0 ml Output Urine Total 100 ml Hemodialysis UF 0 ml # Voids 1 # Bowel Movements 2 2 Laboratory Tests 07/06/19 05:40: White Blood Count 14.7H, Red Blood Count 2.52L, Hemoglobin 7.4L, Hematocrit 22.1L, Mean Corpuscular Volume 88, Mean Corpuscular Hemoglobin 29.3, Mean Corpuscular Hemoglobin Concent 33.4, Red Cell Distribution Width 13.3, Platelet Count 290, Mean Platelet Volume 7.8, Neutrophils (%) (Auto) , Lymphocytes (%) ( Auto) , Monocytes (%) (Auto) , Eosinophils (%) (Auto) , Basophils (%) (Auto) , Differential Total Cells Counted 100, Neutrophils % (Manual) 93H, Lymphocytes % (Manual) 5L, Monocytes % (Manual) 2, Eosinophils % (Manual) 0, Basophils % ( Manual) 0, Band Neutrophils 0, Platelet Estimate Adequate, Platelet Morphology Normal, Hypochromasia 2+, Sodium Level 146H, Potassium Level 3.4L, Chloride Level 104, Carbon Dioxide Level 29, Anion Gap 14, Blood Urea Nitrogen 50H, Creatinine 2.6H, Estimat Glomerular Filtration Rate 21.1, Glucose Level 96, Calcium Level 9.9, Iron Level 25L, Total Iron Binding Capacity 141L, Percent Iron Saturation 18, Unsaturated Iron Binding 116, Ferritin 1363H, Total Bilirubin 1.0, Aspartate Amino Transf (AST/SGOT) 49H, Alanine Aminotransferase ( ALT/SGPT) 58, Alkaline Phosphatase 75, Total Protein 6.7, Albumin 4.0, Globulin 2.7, Albumin/Globulin Ratio 1.5 Height (Feet): 5 Height (Inches): 3.00 Weight (Pounds): 116 Objective WDWN NCAT supple CTA RR ab, (+) GTd soft no edema Rajesh Bowling MD Jul 06, 2019 18:34
[2019-07-06 20:00] VITALS: BP 95/63
--- NOTE | 2019-07-06 20:39 | Nephrology Progress Note ---
Assessment/Plan Plan #acute renal failure on possible CKD- due to rhabdo- UA with + RBC- concerns for developing ATN #Uremia #complete opacification of the left hemithorax- likely aspiration pneumonia #lactic acidosis #Hypernatremia- improved #AMS #elevated liver enzyme - HD monday - plan for permacath on monday - continue lasix 40mg daily challenge - monitor UOP - PEG 07/04 - pulmonary eval - on room air now - renal US-> No obstructive nephropathy. - monitor liver enzymes and lipase - Gi eval - continue with abx per ID Subjective Subjective s/p PEG 07/04 HD 07/04 BP stable on NC plan for permcath on monday CT chest: Extensive airspace consolidation in the left lung involving the left perihilar, upper lobe and left lower lobe. Findings suspicious for pneumonia, especially aspiration given the abrupt onset. Please correlate clinically. Partial atelectasis of the left lower lobe also noted Objective Objective Last 24 Hour Vital Signs Date Time Temp Pulse Resp B/P (MAP) Pulse Ox O2 Delivery O2 Flow Rate FiO2 07/06/19 16:00 98.2 69 17 122/89 (100) 93 07/06/19 12:00 98.3 110 20 115/63 (80) 100 07/06/19 09:00 Nasal Cannula 2.0 Nasal Cannula 2.0 07/06/19 08:00 98.3 108 20 131/66 (87) 98 07/06/19 04:00 98.4 105 21 113/63 (80) 98 07/06/19 00:00 98.0 90 21 102/63 (76) 95 07/05/19 21:00 Nasal Cannula 2.0 Nasal Cannula 2.0 Intake and Output 07/05/19 07/06/19 19:00 07:00 Intake Total 140 ml 300 ml Output Total 100 ml 0 ml Balance 40 ml 300 ml IV Total 100 ml 300 ml Tube Feeding 40 ml Hemodialysis 0 ml Output Urine Total 100 ml Hemodialysis UF 0 ml # Voids 1 # Bowel Movements 2 2 Laboratory Tests 07/06/19 05:40: White Blood Count 14.7H, Red Blood Count 2.52L, Hemoglobin 7.4L, Hematocrit 22.1L, Mean Corpuscular Volume 88, Mean Corpuscular Hemoglobin 29.3, Mean Corpuscular Hemoglobin Concent 33.4, Red Cell Distribution Width 13.3, Platelet Count 290, Mean Platelet Volume 7.8, Neutrophils (%) (Auto) , Lymphocytes (%) ( Auto) , Monocytes (%) (Auto) , Eosinophils (%) (Auto) , Basophils (%) (Auto) , Differential Total Cells Counted 100, Neutrophils % (Manual) 93H, Lymphocytes % (Manual) 5L, Monocytes % (Manual) 2, Eosinophils % (Manual) 0, Basophils % ( Manual) 0, Band Neutrophils 0, Platelet Estimate Adequate, Platelet Morphology Normal, Hypochromasia 2+, Sodium Level 146H, Potassium Level 3.4L, Chloride Level 104, Carbon Dioxide Level 29, Anion Gap 14, Blood Urea Nitrogen 50H, Creatinine 2.6H, Estimat Glomerular Filtration Rate 21.1, Glucose Level 96, Calcium Level 9.9, Iron Level 25L, Total Iron Binding Capacity 141L, Percent Iron Saturation 18, Unsaturated Iron Binding 116, Ferritin 1363H, Total Bilirubin 1.0, Aspartate Amino Transf (AST/SGOT) 49H, Alanine Aminotransferase ( ALT/SGPT) 58, Alkaline Phosphatase 75, Total Protein 6.7, Albumin 4.0, Globulin 2.7, Albumin/Globulin Ratio 1.5 Height (Feet): 5 Height (Inches): 3.00 Weight (Pounds): 116 Objective General Appearance: lethargic, confused, on bipap Lines, tubes and drains: peripheral HEENT: normocephalic, atraumatic Neck: non-tender Respiratory/Chest: minimal breath sounds on the left Cardiovascular/Chest: normal peripheral pulses, normal rate, regular rhythm, regularly irregular Abdomen: non tender, soft Rory Oconnor M.D. Jul 06, 2019 20:39
[2019-07-06] MEDS: Dyna-Hex 2% Top Sol 2oz TOPIC SCH (21:06)
--- NOTE | 2019-07-06 23:30 | Hematology/Onc Progress Note ---
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 Otherwise unremarkable pancreas --> as per gi, may need further eval with endsocopy --> with pancreatitis at this time, may be obscuring picture --> reimage in short order, 6 months --> ca19.9 60 but may be elevated due to pancreatitis --> cea of 10 # Leukocytosis/elevated white blood cell count, unspecified likely related to underlying stress reaction, smoking v more likely infection in this case, bacteremia --> have reviewed peripheral smear and bandemia/neutrophilia noted --> continue antibiotics if they have been started by ID team --> monitor for resolution --> as per id care, on broad spectrum abx --> wbc 30-->21-->18.7 -->5 --> abx: bethany # Anemia of chronic disease due to underlying chronic medical issues, multifactorial v Gi bleed --> Anemia workup has been ordered, rule out gi bleed --> No evidence of hemolysis is noted, peripheral smear has been reviewed. --> Hgb goal >7. Transfuse prn. --> Epogen has been started --> Medications have been reviewed --> hgb 8.7-->7.4 --> low threshold for gi evaluation in case has occult + --> bone marrow biopsy is not indicated given the other more likely causes # Thrombocytopenia - potential causes multifactorial, evaluate liver and viral etiologies to begin, in this case due to sepsisand pancreatitis --> Hep panel and HIV are both negative --> US abd to evaluate for cirrhosis and hsm --> pleural effusions noted, hsm is neg --> Peripheral smear ordered to evaluate for blasts /schistocytes --> abx and other meds have been reviewed --> ok for ppx if plt >50k w/ either heparin or lovenox # Acute renal failure - on HD UF --> hd with fem left omari ==> per renal hd # Uremic encephalopathy --> renal US-> No obstructive nephropathy # Left lung PNA - likely aspiration --> abx as per id # Acute hypoxic respiratory failure s/p BiPAP - improved # Strep Viridans bacteremia --> s/p abx # Dysphagia --> PEG++ 3/13 # L1 vertebral fracture - likely old # Transaminitis --> per gi # Acute pancreatitis --> amylase/lipase improved The timing of this note does not necessarily reflect the time of the patient was seen. Greatly appreciate consultation. Subjective Constitutional: Denies: no symptoms, chills, fever, malaise, weakness, other HEENT: Denies: no symptoms, eye pain, blurred vision, tearing, double vision, ear pain, ear discharge, nose pain, nose congestion, throat pain, throat swelling, mouth pain, mouth swelling, other Cardiovascular: Denies: no symptoms, chest pain, edema, irregular heart rate, lightheadedness, palpitations, syncope, other Respiratory: Denies: no symptoms, cough, shortness of breath, SOB with excertion, SOB at rest, sputum, wheezing, other Gastrointestinal/Abdominal: Denies: no symptoms, abdomen distended, abdominal pain, black stools, tarry stools, blood in stool, constipated, diarrhea, difficulty swallowing, nausea, poor appetite, poor fluid intake, rectal bleeding , vomiting, other Genitourinary: Denies: no symptoms, burning, discharge, frequency, flank pain, hematuria, incontinence, pain, urgency, other Neurologic/Psychiatric: Denies: no symptoms, anxiety, depressed, emotional problems, headache, numbness, paresthesia, pre-existing deficit, seizure, tingling, tremors, weakness, other Endocrine: Denies: no symptoms, excessive sweating, flushing, intolerance to cold, intolerance to heat, increased hunger, increased thirst, increased urine, unexplained weight gain, unexplained weight loss, other Hematologic/Lymphatic: Denies: no symptoms, anemia, easy bleeding, easy bruising, adenopathy, other Allergies: Coded Allergies: No Known Allergies (Unverified , 06/24/19) Subjective 07/02: resting in bed, appears to be comfortable, no bleeding, on merop, no events 07/03: is crying with ng tube, no bleeding, labs noted, no night swaets, lytes to be replted 07/04: hgb 8.2, hd for today, hep and hiv negative, nc, on bethany 07/05 to get hd for monday, no bleeding, labs reported, dw pcp, peg working Objective Objective Current Medications Medications (Trade) Dose Ordered Sig/Joan Route PRN Reason Start Time Stop Time Status Last Admin Dose Admin Acetaminophen (Tylenol) 650 mg Q4H PRN NG Mild Pain/Temp > 100.5 07/04/19 20:30 08/01/19 12:29 Acetylcysteine (Mucomyst) 100 mg Q4H PRN HHN Shortness of Breath 07/04/19 18:00 08/03/19 17:59 Albumin Human 100 ml @ 100 mls/hr NEEDED PRN IV DIALYSIS 07/04/19 19:00 08/03/19 18:59 07/06/19 01:30 Chlorhexidine Gluconate (Cari-Hex 2%) 1 applic DAILY@2000 TOPIC 07/04/19 20:00 07/26/19 19:59 07/06/19 21:06 Dextrose (Dextrose 50%) 25 ml Q30M PRN IV Hypoglycemia 07/04/19 20:00 07/24/19 19:51 Dextrose (Dextrose 50%) 50 ml Q30M PRN IV Hypoglycemia 07/04/19 20:00 07/24/19 19:51 Diphenhydramine HCl (Benadryl) 25 mg Q6H PRN ORAL Itching/Pruritis 07/04/19 20:00 07/24/19 19:51 Epoetin Dion (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)) 6,000 unit MON-MON-MON SUBQ 07/08/19 21:00 08/07/19 20:59 Furosemide (Lasix) 40 mg DAILY IV 07/05/19 09:00 07/30/19 19:59 07/06/19 11:23 Gabapentin (Neurontin) 300 mg BID GT 07/05/19 09:00 08/01/19 17:59 07/06/19 17:07 Haloperidol Lactate (Haldol) 5 mg Q6H PRN IM Agitation 07/06/19 01:45 08/20/19 01:44 Hydromorphone HCl (Dilaudid) 0.5 mg Q2H PRN IVP Severe Pain (Pain Scale 7-10) 07/04/19 20:30 07/09/19 12:29 Linezolid 300 ml @ 300 mls/hr EVERY 12 HOURS IVPB 07/05/19 21:00 07/08/19 20:59 07/06/19 21:06 Meropenem 500 mg/ Sodium Chloride 50 ml @ 100 mls/hr Q24HRS IVPB 07/05/19 17:30 07/08/19 17:29 07/06/19 17:08 Ondansetron HCl (Zofran) 4 mg Q4H PRN IVP Nausea & Vomiting 07/04/19 20:00 08/02/19 19:59 Pantoprazole (Protonix) 40 mg DAILY IVP 07/05/19 09:00 07/30/19 08:59 07/06/19 08:47 Last 24 Hour Vital Signs Date Time Temp Pulse Resp B/P (MAP) Pulse Ox O2 Delivery O2 Flow Rate FiO2 07/06/19 20:00 99.0 110 22 95/63 (74) 100 07/06/19 16:00 98.2 69 17 122/89 (100) 93 07/06/19 12:00 98.3 110 20 115/63 (80) 100 07/06/19 09:00 Nasal Cannula 2.0 Nasal Cannula 2.0 07/06/19 08:00 98.3 108 20 131/66 (87) 98 07/06/19 04:00 98.4 105 21 113/63 (80) 98 07/06/19 00:00 98.0 90 21 102/63 (76) 95 07/05/19 21:00 Nasal Cannula 2.0 Nasal Cannula 2.0 07/05/19 20:04 94 20 95 Nasal Cannula 2.0 28 07/05/19 20:04 95 Nasal Cannula 2.0 28 07/05/19 20:00 98.0 95 22 100/60 (73) 95 07/05/19 16:00 98.2 90 19 98 07/05/19 13:49 91 20 100 07/05/19 12:20 98.1 92 18 99 07/05/19 12:05 97.8 91 20 110/78 100 Nasal Cannula 3 07/05/19 11:57 89 20 100 07/05/19 11:55 61 19 124/67 100 Nasal Cannula 3 07/05/19 11:50 94 18 135/70 100 Nasal Cannula 3 07/05/19 11:41 97.1 94 19 113/67 100 Nasal Cannula 3 07/05/19 09:00 Nasal Cannula 2.0 Nasal Cannula 2.0 07/05/19 08:00 98.6 94 18 107/65 (79) 97 07/05/19 07:13 94 20 98 Nasal Cannula 2.0 28 07/05/19 07:13 98 Nasal Cannula 2.0 28 07/05/19 04:00 98.7 92 22 100/59 (73) 98 07/05/19 00:00 98.9 96 23 98/64 (75) 98 Intake and Output 07/05/19 07/06/19 19:00 07:00 Intake Total 140 ml 300 ml Output Total 100 ml 0 ml Balance 40 ml 300 ml IV Total 100 ml 300 ml Tube Feeding 40 ml Hemodialysis 0 ml Output Urine Total 100 ml Hemodialysis UF 0 ml # Voids 1 # Bowel Movements 2 2 Labs Test 07/04/19 04:50 07/04/19 18:29 07/05/19 05:30 07/06/19 05:40 White Blood Count 21.4 K/UL (4.8-10.8) 18.7 K/UL (4.8-10.8) 14.7 K/UL (4.8-10.8) Red Blood Count 2.75 M/UL (4.20-5.40) 2.78 M/UL (4.20-5.40) 2.52 M/UL (4.20-5.40) Hemoglobin 8.2 G/DL (12.0-16.0) 8.2 G/DL (12.0-16.0) 7.4 G/DL (12.0-16.0) Hematocrit 23.9 % (37.0-47.0) 24.2 % (37.0-47.0) 22.1 % (37.0-47.0) Mean Corpuscular Volume 87 FL (80-99) 87 FL (80-99) 88 FL (80-99) Mean Corpuscular Hemoglobin 29.6 PG (27.0-31.0) 29.3 PG (27.0-31.0) 29.3 PG (27.0-31.0) Mean Corpuscular Hemoglobin Concent 34.1 G/DL (32.0-36.0) 33.7 G/DL (32.0-36.0) 33.4 G/DL (32.0-36.0) Red Cell Distribution Width 13.6 % (11.6-14.8) 13.1 % (11.6-14.8) 13.3 % (11.6-14.8) Platelet Count 197 K/UL (150-450) 258 K/UL (150-450) 290 K/UL (150-450) Mean Platelet Volume 8.7 FL (6.5-10.1) 8.8 FL (6.5-10.1) 7.8 FL (6.5-10.1) Neutrophils (%) (Auto) % (45.0-75.0) % (45.0-75.0) % (45.0-75.0) Lymphocytes (%) (Auto) % (20.0-45.0) % (20.0-45.0) % (20.0-45.0) Monocytes (%) (Auto) % (1.0-10.0) % (1.0-10.0) % (1.0-10.0) Eosinophils (%) (Auto) % (0.0-3.0) % (0.0-3.0) % (0.0-3.0) Basophils (%) (Auto) % (0.0-2.0) % (0.0-2.0) % (0.0-2.0) Differential Total Cells Counted 100 100 100 Neutrophils % (Manual) 92 % (45-75) 82 % (45-75) 93 % (45-75) Lymphocytes % (Manual) 4 % (20-45) 10 % (20-45) 5 % (20-45) Monocytes % (Manual) 3 % (1-10) 8 % (1-10) 2 % (1-10) Eosinophils % (Manual) 1 % (0-3) 0 % (0-3) 0 % (0-3) Basophils % (Manual) 0 % (0-2) 0 % (0-2) 0 % (0-2) Band Neutrophils 0 % (0-8) 0 % (0-8) 0 % (0-8) Platelet Estimate Adequate Adequate Adequate Platelet Morphology Normal Normal Normal Hypochromasia 2+ 1+ 2+ Anisocytosis 1+ Spherocytes 1+ Sodium Level 134 MMOL/L (136-145) 132 MMOL/L (136-145) 146 MMOL/L (136-145) Potassium Level 3.4 MMOL/L (3.5-5.1) 4.3 MMOL/L (3.5-5.1) 3.4 MMOL/L (3.5-5.1) Chloride Level 95 MMOL/L (98-107) 93 MMOL/L (98-107) 104 MMOL/L (98-107) Carbon Dioxide Level 21 MMOL/L (21-32) 21 MMOL/L (21-32) 29 MMOL/L (21-32) Anion Gap 18 mmol/L (5-15) 18 mmol/L (5-15) 14 mmol/L (5-15) Blood Urea Nitrogen 68 mg/dL (7-18) 102 mg/dL (7-18) 50 mg/dL (7-18) Creatinine 3.7 MG/DL (0.55-1.30) 5.2 MG/DL (0.55-1.30) 2.6 MG/DL (0.55-1.30) Estimat Glomerular Filtration Rate 14.1 mL/min (>60) 9.5 mL/min (>60) 21.1 mL/min (>60) Glucose Level 133 MG/DL (74-106) 101 MG/DL (74-106) 96 MG/DL (74-106) Calcium Level 8.8 MG/DL (8.5-10.1) 8.9 MG/DL (8.5-10.1) 9.9 MG/DL (8.5-10.1) Total Bilirubin 1.0 MG/DL (0.2-1.0) 1.0 MG/DL (0.2-1.0) Aspartate Amino Transf (AST/SGOT) 64 U/L (15-37) 49 U/L (15-37) Alanine Aminotransferase (ALT/SGPT) 71 U/L (12-78) 58 U/L (12-78) Alkaline Phosphatase 82 U/L (46-116) 75 U/L (46-116) Total Protein 6.1 G/DL (6.4-8.2) 6.7 G/DL (6.4-8.2) Albumin 3.3 G/DL (3.4-5.0) 4.0 G/DL (3.4-5.0) Globulin 2.8 g/dL 2.7 g/dL Albumin/Globulin Ratio 1.2 (1.0-2.7) 1.5 (1.0-2.7) Urine Color Brown Urine Appearance Slightly cloudy Urine pH 5 (4.5-8.0) Urine Specific [place] 1.010 (1.005-1.035) Urine Protein 4+ (NEGATIVE) Urine Glucose (UA) Negative (NEGATIVE) Urine Ketones 1+ (NEGATIVE) Urine Blood 5+ (NEGATIVE) Urine Nitrite Negative (NEGATIVE) Urine Bilirubin Negative (NEGATIVE) Urine Urobilinogen Normal MG/DL (0.0-1.0) Urine Leukocyte Esterase 3+ (NEGATIVE) Urine RBC 5-10 /HPF (0 - 2) Urine WBC 40-60 /HPF (0 - 2) Urine Squamous Epithelial Cells Few /LPF (NONE/OCC) Urine Bacteria Many /HPF (NONE) Urine Yeast Moderate /HPF (NONE) Amylase Level 220 U/L (25-115) Lipase > 2000 U/L (73-393) Iron Level 25 ug/dL (50-175) Total Iron Binding Capacity 141 ug/dL (250-450) Percent Iron Saturation 18 % (15-50) Unsaturated Iron Binding 116 ug/dL (112-346) Ferritin 1363 NG/ML (8-388) Height (Feet): 5 Height (Inches): 3.00 Weight (Pounds): 116 Objective Physical Exam: Vitals: reviewed General: NAD, groans to pain stimuli HEENT: nc, at Neck: supple Chest: clear breath sounds bilaterally Cardiovascular: RRR, no s3, s4 Abdomen: soft, nontender, nd++ peg Extremities: no cce, normal range of motion Neuro: alert and oriented Skin: other - pressure sores to right side Bola Aldridge MD Jul 06, 2019 23:30
[2019-07-07] VITALS: BP 124/64
[2019-07-07 04:00] VITALS: BP 139/72
[2019-07-07] MEDS: Hydromorphone 0.5mg/0.5ml inj IVP PRN ×2 (06:33→13:13)
[2019-07-07 08:00] VITALS: BP 109/55
[2019-07-07] MEDS: Gabapentin 300 MG/6 ML Soln GT SCH ×2 (08:59→17:23)
[2019-07-07] MEDS: Pantoprazole Inj IVP SCH (09:15)
--- NOTE | 2019-07-07 11:22 | Pulmonology Progress Note ---
Assessment/Plan Assessment/Plan KAREN rhabdo toxic met encephalopathy pneumonia with persistent infiltrates acute respiratory failure hypoxemia advanced age leukocytosis possible sepsis anemia PLAN care noted consider transfusion to primary care team antibiotics reviewed respiratory care monitor acid base for now follow up imaging for further clearing oxygen and taper off load aspiration precautions monitor for change and advise impression, plan, and exam edited and reviewed in detail care discussed with RN Subjective ROS Limited/Unobtainable: Yes Allergies: Coded Allergies: No Known Allergies (Unverified , 06/24/19) Subjective COVERAGE FOR DR TENA care noted on oxygen imaging reviewed events reviewed and discussed Objective Last 24 Hour Vital Signs Date Time Temp Pulse Resp B/P (MAP) Pulse Ox O2 Delivery O2 Flow Rate FiO2 07/07/19 09:00 Nasal Cannula 2.0 Nasal Cannula 2.0 07/07/19 08:00 98.6 109 20 109/55 (73) 100 07/07/19 04:00 97.8 108 22 139/72 (94) 94 07/07/19 00:00 98.9 120 22 124/64 (84) 94 07/06/19 21:00 Nasal Cannula 2.0 Nasal Cannula 2.0 07/06/19 20:00 99.0 110 22 95/63 (74) 100 07/06/19 16:00 98.2 69 17 122/89 (100) 93 07/06/19 12:00 98.3 110 20 115/63 (80) 100 Intake and Output 07/06/19 07/07/19 19:00 07:00 Intake Total 80 ml 500 ml Output Total 100 ml 520 ml Balance -20 ml -20 ml IV Total 300 ml Tube Feeding 80 ml 200 ml Output Urine Total 100 ml 520 ml # Voids 1 # Bowel Movements 2 1 Objective WDWN NAD reduced LOC on oxygen reduced breath sounds bilaterally without rhonchi or wheeze [id number] without MRG NABS nontender no HSM no CCE skin noted Microbiology Date/Time Source Procedure Growth Status 07/04/19 18:29 Urine,Clean Catch Urine Culture - Final Melanie Albicans Complete Current Medications Medications (Trade) Dose Ordered Sig/Joan Route PRN Reason Start Time Stop Time Status Last Admin Dose Admin Acetaminophen (Tylenol) 650 mg Q4H PRN NG Mild Pain/Temp > 100.5 07/04/19 20:30 08/01/19 12:29 Acetylcysteine (Mucomyst) 100 mg Q4H PRN HHN Shortness of Breath 07/04/19 18:00 08/03/19 17:59 Albumin Human 100 ml @ 100 mls/hr NEEDED PRN IV DIALYSIS 07/04/19 19:00 08/03/19 18:59 07/06/19 01:30 Chlorhexidine Gluconate (Cari-Hex 2%) 1 applic DAILY@2000 TOPIC 07/04/19 20:00 07/26/19 19:59 07/06/19 21:06 Dextrose (Dextrose 50%) 25 ml Q30M PRN IV Hypoglycemia 07/04/19 20:00 07/24/19 19:51 Dextrose (Dextrose 50%) 50 ml Q30M PRN IV Hypoglycemia 07/04/19 20:00 07/24/19 19:51 Diphenhydramine HCl (Benadryl) 25 mg Q6H PRN ORAL Itching/Pruritis 07/04/19 20:00 07/24/19 19:51 Epoetin Dion (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)) 6,000 unit MON- SUBQ 07/08/19 21:00 08/07/19 20:59 Furosemide (Lasix) 40 mg DAILY IV 07/05/19 09:00 07/30/19 19:59 07/07/19 09:16 Gabapentin (Neurontin) 300 mg BID GT 07/05/19 09:00 08/01/19 17:59 07/07/19 08:59 Haloperidol Lactate (Haldol) 5 mg Q6H PRN IM Agitation 07/06/19 01:45 08/20/19 01:44 Hydromorphone HCl (Dilaudid) 0.5 mg Q2H PRN IVP Severe Pain (Pain Scale 7-10) 07/04/19 20:30 07/09/19 12:29 07/07/19 06:33 Linezolid 300 ml @ 300 mls/hr EVERY 12 HOURS IVPB 07/05/19 21:00 07/08/19 20:59 07/07/19 09:14 Meropenem 500 mg/ Sodium Chloride 50 ml @ 100 mls/hr Q24HRS IVPB 07/05/19 17:30 07/08/19 17:29 07/06/19 17:08 Ondansetron HCl (Zofran) 4 mg Q4H PRN IVP Nausea & Vomiting 07/04/19 20:00 08/02/19 19:59 Pantoprazole (Protonix) 40 mg DAILY IVP 07/05/19 09:00 07/30/19 08:59 07/07/19 09:15 Boo Raymond MD Jul 07, 2019 11:21
--- NOTE | 2019-07-07 11:45 | Nephrology Progress Note ---
Assessment/Plan Plan #acute renal failure on possible CKD- due to rhabdo- UA with + RBC- concerns for developing ATN #Uremia #complete opacification of the left hemithorax- likely aspiration pneumonia #lactic acidosis #Hypernatremia- improved #AMS #elevated liver enzyme - HD monday - plan for permacath on monday - continue lasix 40mg daily challenge - monitor UOP - PEG 07/04 - pulmonary eval - on room air now - renal US-> No obstructive nephropathy. - monitor liver enzymes and lipase - Gi eval - continue with abx per ID Subjective Subjective s/p PEG 07/04 HD 07/04 BP stable on NC plan for permcath on monday CT chest: Extensive airspace consolidation in the left lung involving the left perihilar, upper lobe and left lower lobe. Findings suspicious for pneumonia, especially aspiration given the abrupt onset. Please correlate clinically. Partial atelectasis of the left lower lobe also noted Objective Objective Last 24 Hour Vital Signs Date Time Temp Pulse Resp B/P (MAP) Pulse Ox O2 Delivery O2 Flow Rate FiO2 07/07/19 09:00 Nasal Cannula 2.0 Nasal Cannula 2.0 07/07/19 08:00 98.6 109 20 109/55 (73) 100 07/07/19 04:00 97.8 108 22 139/72 (94) 94 07/07/19 00:00 98.9 120 22 124/64 (84) 94 07/06/19 21:00 Nasal Cannula 2.0 Nasal Cannula 2.0 07/06/19 20:00 99.0 110 22 95/63 (74) 100 07/06/19 16:00 98.2 69 17 122/89 (100) 93 07/06/19 12:00 98.3 110 20 115/63 (80) 100 Intake and Output 07/06/19 07/07/19 19:00 07:00 Intake Total 80 ml 500 ml Output Total 100 ml 520 ml Balance -20 ml -20 ml IV Total 300 ml Tube Feeding 80 ml 200 ml Output Urine Total 100 ml 520 ml # Voids 1 # Bowel Movements 2 1 Height (Feet): 5 Height (Inches): 3.00 Weight (Pounds): 116 Objective General Appearance: lethargic, confused, on bipap Lines, tubes and drains: peripheral HEENT: normocephalic, atraumatic Neck: non-tender Respiratory/Chest: minimal breath sounds on the left Cardiovascular/Chest: normal peripheral pulses, normal rate, regular rhythm, regularly irregular Abdomen: non tender, soft Rory Oconnor M.D. Jul 07, 2019 11:45
--- NOTE | 2019-07-07 11:52 | Hematology/Onc Progress Note ---
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 Otherwise unremarkable pancreas --> as per gi, may need further eval with endsocopy --> with pancreatitis at this time, may be obscuring picture --> reimage in short order, 6 months --> ca19.9 60 but may be elevated due to pancreatitis --> cea of 10 # Leukocytosis/elevated white blood cell count, unspecified likely related to underlying stress reaction, smoking v more likely infection in this case, bacteremia --> have reviewed peripheral smear and bandemia/neutrophilia noted --> continue antibiotics if they have been started by ID team --> monitor for resolution --> as per id care, on broad spectrum abx --> wbc 30-->21-->18.7 -->5 --> abx: bethany/linezolid # Anemia of chronic disease due to underlying chronic medical issues, multifactorial v Gi bleed --> Anemia workup has been reviewed, ferritin 1300 --> No evidence of hemolysis is noted, peripheral smear has been reviewed. --> Hgb goal >7. Transfuse prn. --> Epogen has been started --> Medications have been reviewed --> hgb 8.7-->7.4 --> low threshold for gi evaluation in case has occult + --> bone marrow biopsy is not indicated given the other more likely causes # Thrombocytopenia - potential causes multifactorial, evaluate liver and viral etiologies to begin, in this case due to sepsisand pancreatitis --> Hep panel and HIV are both negative --> US abd to evaluate for cirrhosis and hsm --> pleural effusions noted, hsm is neg --> Peripheral smear ordered to evaluate for blasts /schistocytes --> abx and other meds have been reviewed --> ok for ppx if plt >50k w/ either heparin or lovenox # Acute renal failure - on HD UF --> hd with fem left omari ==> per renal hd # 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 Greatly appreciate consultation. Subjective Allergies: Coded Allergies: No Known Allergies (Unverified , 06/24/19) Subjective 07/02: resting in bed, appears to be comfortable, no bleeding, on merop, no events 07/03: is crying with ng tube, no bleeding, labs noted, no night swaets, lytes to be replted 07/04: hgb 8.2, hd for today, hep and hiv negative, nc, on bethany 07/05 to get hd for monday, no bleeding, labs reported, dw pcp, peg working 07/06 labs pending, afebrile, no sob, on abx Objective Objective Current Medications Medications (Trade) Dose Ordered Sig/Joan Route PRN Reason Start Time Stop Time Status Last Admin Dose Admin Acetaminophen (Tylenol) 650 mg Q4H PRN NG Mild Pain/Temp > 100.5 07/04/19 20:30 08/01/19 12:29 Acetylcysteine (Mucomyst) 100 mg Q4H PRN HHN Shortness of Breath 07/04/19 18:00 08/03/19 17:59 Albumin Human 100 ml @ 100 mls/hr NEEDED PRN IV DIALYSIS 07/04/19 19:00 08/03/19 18:59 07/06/19 01:30 Chlorhexidine Gluconate (Cari-Hex 2%) 1 applic DAILY@2000 TOPIC 07/04/19 20:00 07/26/19 19:59 07/06/19 21:06 Dextrose (Dextrose 50%) 25 ml Q30M PRN IV Hypoglycemia 07/04/19 20:00 07/24/19 19:51 Dextrose (Dextrose 50%) 50 ml Q30M PRN IV Hypoglycemia 07/04/19 20:00 07/24/19 19:51 Diphenhydramine HCl (Benadryl) 25 mg Q6H PRN ORAL Itching/Pruritis 07/04/19 20:00 07/24/19 19:51 Epoetin Dion (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)) 6,000 unit SUBQ 07/08/19 21:00 08/07/19 20:59 Furosemide (Lasix) 40 mg DAILY IV 07/05/19 09:00 07/30/19 19:59 07/07/19 09:16 Gabapentin (Neurontin) 300 mg BID GT 07/05/19 09:00 08/01/19 17:59 07/07/19 08:59 Haloperidol Lactate (Haldol) 5 mg Q6H PRN IM Agitation 07/06/19 01:45 08/20/19 01:44 Hydromorphone HCl (Dilaudid) 0.5 mg Q2H PRN IVP Severe Pain (Pain Scale 7-10) 07/04/19 20:30 07/09/19 12:29 07/07/19 06:33 Linezolid 300 ml @ 300 mls/hr EVERY 12 HOURS IVPB 07/05/19 21:00 07/08/19 20:59 07/07/19 09:14 Meropenem 500 mg/ Sodium Chloride 50 ml @ 100 mls/hr Q24HRS IVPB 07/05/19 17:30 07/08/19 17:29 07/06/19 17:08 Ondansetron HCl (Zofran) 4 mg Q4H PRN IVP Nausea & Vomiting 07/04/19 20:00 08/02/19 19:59 Pantoprazole (Protonix) 40 mg DAILY IVP 07/05/19 09:00 07/30/19 08:59 07/07/19 09:15 Last 24 Hour Vital Signs Date Time Temp Pulse Resp B/P (MAP) Pulse Ox O2 Delivery O2 Flow Rate FiO2 07/07/19 09:00 Nasal Cannula 2.0 Nasal Cannula 2.0 07/07/19 08:00 98.6 109 20 109/55 (73) 100 07/07/19 04:00 97.8 108 22 139/72 (94) 94 07/07/19 00:00 98.9 120 22 124/64 (84) 94 07/06/19 21:00 Nasal Cannula 2.0 Nasal Cannula 2.0 07/06/19 20:00 99.0 110 22 95/63 (74) 100 07/06/19 16:00 98.2 69 17 122/89 (100) 93 07/06/19 12:00 98.3 110 20 115/63 (80) 100 07/06/19 09:00 Nasal Cannula 2.0 Nasal Cannula 2.0 07/06/19 08:00 98.3 108 20 131/66 (87) 98 07/06/19 04:00 98.4 105 21 113/63 (80) 98 07/06/19 00:00 98.0 90 21 102/63 (76) 95 07/05/19 21:00 Nasal Cannula 2.0 Nasal Cannula 2.0 07/05/19 20:04 94 20 95 Nasal Cannula 2.0 28 07/05/19 20:04 95 Nasal Cannula 2.0 28 07/05/19 20:00 98.0 95 22 100/60 (73) 95 07/05/19 16:00 98.2 90 19 98 07/05/19 13:49 91 20 100 07/05/19 12:20 98.1 92 18 99 07/05/19 12:05 97.8 91 20 110/78 100 Nasal Cannula 3 07/05/19 11:57 89 20 100 07/05/19 11:55 61 19 124/67 100 Nasal Cannula 3 07/05/19 11:50 94 18 135/70 100 Nasal Cannula 3 Intake and Output 07/06/19 07/07/19 19:00 07:00 Intake Total 80 ml 500 ml Output Total 100 ml 520 ml Balance -20 ml -20 ml IV Total 300 ml Tube Feeding 80 ml 200 ml Output Urine Total 100 ml 520 ml # Voids 1 # Bowel Movements 2 1 Labs Test 07/04/19 18:29 07/05/19 05:30 07/06/19 05:40 Urine Color Brown Urine Appearance Slightly cloudy Urine pH 5 (4.5-8.0) Urine Specific [place] 1.010 (1.005-1.035) Urine Protein 4+ (NEGATIVE) Urine Glucose (UA) Negative (NEGATIVE) Urine Ketones 1+ (NEGATIVE) Urine Blood 5+ (NEGATIVE) Urine Nitrite Negative (NEGATIVE) Urine Bilirubin Negative (NEGATIVE) Urine Urobilinogen Normal MG/DL (0.0-1.0) Urine Leukocyte Esterase 3+ (NEGATIVE) Urine RBC 5-10 /HPF (0 - 2) Urine WBC 40-60 /HPF (0 - 2) Urine Squamous Epithelial Cells Few /LPF (NONE/OCC) Urine Bacteria Many /HPF (NONE) Urine Yeast Moderate /HPF (NONE) White Blood Count 18.7 K/UL (4.8-10.8) 14.7 K/UL (4.8-10.8) Red Blood Count 2.78 M/UL (4.20-5.40) 2.52 M/UL (4.20-5.40) Hemoglobin 8.2 G/DL (12.0-16.0) 7.4 G/DL (12.0-16.0) Hematocrit 24.2 % (37.0-47.0) 22.1 % (37.0-47.0) Mean Corpuscular Volume 87 FL (80-99) 88 FL (80-99) Mean Corpuscular Hemoglobin 29.3 PG (27.0-31.0) 29.3 PG (27.0-31.0) Mean Corpuscular Hemoglobin Concent 33.7 G/DL (32.0-36.0) 33.4 G/DL (32.0-36.0) Red Cell Distribution Width 13.1 % (11.6-14.8) 13.3 % (11.6-14.8) Platelet Count 258 K/UL (150-450) 290 K/UL (150-450) Mean Platelet Volume 8.8 FL (6.5-10.1) 7.8 FL (6.5-10.1) Neutrophils (%) (Auto) % (45.0-75.0) % (45.0-75.0) Lymphocytes (%) (Auto) % (20.0-45.0) % (20.0-45.0) Monocytes (%) (Auto) % (1.0-10.0) % (1.0-10.0) Eosinophils (%) (Auto) % (0.0-3.0) % (0.0-3.0) Basophils (%) (Auto) % (0.0-2.0) % (0.0-2.0) Differential Total Cells Counted 100 100 Neutrophils % (Manual) 82 % (45-75) 93 % (45-75) Lymphocytes % (Manual) 10 % (20-45) 5 % (20-45) Monocytes % (Manual) 8 % (1-10) 2 % (1-10) Eosinophils % (Manual) 0 % (0-3) 0 % (0-3) Basophils % (Manual) 0 % (0-2) 0 % (0-2) Band Neutrophils 0 % (0-8) 0 % (0-8) Platelet Estimate Adequate Adequate Platelet Morphology Normal Normal Hypochromasia 1+ 2+ Sodium Level 132 MMOL/L (136-145) 146 MMOL/L (136-145) Potassium Level 4.3 MMOL/L (3.5-5.1) 3.4 MMOL/L (3.5-5.1) Chloride Level 93 MMOL/L (98-107) 104 MMOL/L (98-107) Carbon Dioxide Level 21 MMOL/L (21-32) 29 MMOL/L (21-32) Anion Gap 18 mmol/L (5-15) 14 mmol/L (5-15) Blood Urea Nitrogen 102 mg/dL (7-18) 50 mg/dL (7-18) Creatinine 5.2 MG/DL (0.55-1.30) 2.6 MG/DL (0.55-1.30) Estimat Glomerular Filtration Rate 9.5 mL/min (>60) 21.1 mL/min (>60) Glucose Level 101 MG/DL (74-106) 96 MG/DL (74-106) Calcium Level 8.9 MG/DL (8.5-10.1) 9.9 MG/DL (8.5-10.1) Amylase Level 220 U/L (25-115) Lipase > 2000 U/L (73-393) Iron Level 25 ug/dL (50-175) Total Iron Binding Capacity 141 ug/dL (250-450) Percent Iron Saturation 18 % (15-50) Unsaturated Iron Binding 116 ug/dL (112-346) Ferritin 1363 NG/ML (8-388) Total Bilirubin 1.0 MG/DL (0.2-1.0) Aspartate Amino Transf (AST/SGOT) 49 U/L (15-37) Alanine Aminotransferase (ALT/SGPT) 58 U/L (12-78) Alkaline Phosphatase 75 U/L (46-116) Total Protein 6.7 G/DL (6.4-8.2) Albumin 4.0 G/DL (3.4-5.0) Globulin 2.7 g/dL Albumin/Globulin Ratio 1.5 (1.0-2.7) Height (Feet): 5 Height (Inches): 3.00 Weight (Pounds): 116 Objective Physical Exam: Vitals: reviewed General: NAD, groans to pain stimuli HEENT: nc, at Neck: supple Chest: clear breath sounds bilaterally Cardiovascular: RRR, no s3, s4 Abdomen: soft, nontender, nd++ peg Extremities: no cce, normal range of motion Neuro: alert and oriented Skin: other - pressure sores to right side Bola Aldridge MD Jul 07, 2019 11:52
[2019-07-07 12:00] VITALS: BP 128/72
--- NOTE | 2019-07-07 12:55 | Surgery Progress Note ---
Surgery Progress Note Subjective Procedure Performed Left femoral temporary hemodialysis catheter insertion Additional Comments no acute events comfortable stable family at bedside plan for tunneled cath soon as groin cath needs to be removed Objective Last 24 Hour Vital Signs Date Time Temp Pulse Resp B/P (MAP) Pulse Ox O2 Delivery O2 Flow Rate FiO2 07/07/19 12:00 98.6 55 18 128/72 (90) 99 07/07/19 09:00 Nasal Cannula 2.0 Nasal Cannula 2.0 07/07/19 08:00 98.6 109 20 109/55 (73) 100 07/07/19 04:00 97.8 108 22 139/72 (94) 94 07/07/19 00:00 98.9 120 22 124/64 (84) 94 07/06/19 21:00 Nasal Cannula 2.0 Nasal Cannula 2.0 07/06/19 20:00 99.0 110 22 95/63 (74) 100 07/06/19 16:00 98.2 69 17 122/89 (100) 93 I&O Intake and Output 07/06/19 07/07/19 19:00 07:00 Intake Total 80 ml 500 ml Output Total 100 ml 520 ml Balance -20 ml -20 ml IV Total 300 ml Tube Feeding 80 ml 200 ml Output Urine Total 100 ml 520 ml # Voids 1 # Bowel Movements 2 1 Dressing: dry Wound: clean, dry Cardiovascular: RSR Respiratory: clear Abdomen: soft, non-tender, present bowel sounds Extremities: no edema, no tenderness, no cyanosis Plan Problems: (1) Fall Assessment & Plan: 88 year old female s/p fall now with renal insufficiency requiring HD spoke with family. she has known CKD multiple decubitus ulcers from being down malnutrition line placed see documentation trend labs abx HD thank you prognosis guarded family at bedside cxr noted pna worsening R cheek pressure injury resolved. Unstageable pressure injury R shoulder now has 90% necrosis,surrounding 10% pink granulation(L()4.1cm x (W)3.3cm. No odor or exudate noted.No erythema or induration periwound. Reabsorbed DTPI R Humerus. Base of wound is dry,brown with pink epithelial at the distal base of wound(L)9.4cm x (W)3.1cm. DTPI R elbow has resolved. Scattered dry brown peeling skin noted. No erythema noted. DTPI sacrum less indurated (L)4.5cm x (W)6cm. Small opening at cleft that is corby and moist(L)1.5cm x (W)0.3cm. No exudate noted. L ischial DTPI reabsorbed(L)6cm x (W)7cm. Base of injury black. No erythema or evidence of further breakdown periwound. Unstageable pressure injury R hip(L)8.9cm x (W)14.2cm. Base of wound has 50% slough ,25% soft necrosis, 25% pink granulation along borders.Edges adherent to base of wound. No odor or exudate noted. DTPI medial/posterior L heel reabsorbed. Base of injury is boggy but blanchable. Unstageable Pressure Injury L Hallux resolving.(L)4.3cm x (W)3.7cm. Base of wound is 60% necrotic,10% slough with surrounding 30% pink granulation. Marginal erythema periwound. Small amt purulent exudate noted. No odor noted. DTPI medial L malleolus reabsorbed. Dry brown patch noted. Reabsorbed blood blisters L 1st,2nd and 3rd metatarsals. Dry brown patches noted dorsally all 3 metatarsals. R heel DTPI resolving. R heel is boggy but blanchable. Unstageable pressure injury lateral R malleolus. Base of wound has scattered slough. Borders are macerated with marginal erythema periwound.(L)0.7cm x (W) 1.3cm. No erythema or fluctuance periwound. DTPI distal/lateral R foot resolving. Base of injury is maroon /fluctuant. No erythema or induration periwound. DTPI lateral R 5th metatarsal resolved. Wound care provided. Wound Tx are effective and continued as ordered. All wound prevention protocols continued as care-planned. Family member at bedside and updated on wound progress. DAILY ESTIMATED NEEDS: Needs based on Wounds, 51.8kg 30-35 kcals/kg 3972-2575 total kcals 1.25-1.5 g protein/kg 65-78 g total protein 25-30ml/kcal mL/kg 7522-0576 total fluid mLs NUTRITION DIAGNOSIS: * Increased kcal and pro needs r/t wound healing and renal failure as evidenced by, s/p fall w/ pressure wounds per MD, refer to WC eval, ARF needing HD. * Swallowing difficulty R/T dysphagia as evidenced by s/p NGT placement, plan for PEG placement w/ consent and medical clearance, TF held for possible pancreatitis. CURRENT TF:NPO- TF HELD FOR POSSIBLE PANCREATITIS ENTERAL NUTRITION RECOMMENDATIONS: NEPRO @36ml/hr x24 hrs to provide 864ml, 1555 kcal, 70g pro, 628ml free H2O free H2O - As medically appropriate, resume TF - Start @16ml/hr for 8 hrs, advance as tolerated 5ml/hr q4-6 hrs to goal. - Flush per MD/ HOB Over 30 degrees - PT AT HIGH RISK FOR REFEEDING SYNDROME, MONITOR LYTES DAILY, REPLETE NEEDED ADDITIONAL RECOMMENDATIONS: 1) Monitor ability to resume TF NGT feeds held 06/30 for possible pancreatitis. If unable to feed via GI, consider initiating TPN due to proloned NPO, minimal intake status 2) WOUND CARE: W/ active TF order add VASQUEZ in 4oz H2O BID 3) Rec added dextrose when NPO 4) Calibrated bed scale wts daily 5) Monitor lytes closely w/ TF- high risk for refeeding syndrome (2) Altered level of consciousness (3) Fracture of lumbar spine Assessment & Plan: Lungs: There is increased density at the lung bases likely atelectasis. Aorta is moderately calcified. There is a small hiatal hernia.. Liver: Grossly unremarkable. There is artifact limiting evaluation in addition to the fact that no IV or oral contrast was given for this examination. Gallbladder/biliary system: Grossly unremarkable. Spleen: Unremarkable Pancreas: In the area of the pancreatic tail there is a 1.6 cm nodular density which may be cystic. Further evaluation is recommended. Kidneys/Bladder: Vascular calcifications are quite extensive and extend to the hilum of both kidneys. Evaluation for punctate nonobstructive stones is limited in this setting but no definite stones seen. There is no hydronephrosis. Extensive breathing motion limiting evaluation.. Adrenal glands: Unremarkable Bowel: Patient's prior partial bowel resection in the right lower abdomen with anastomotic sutures noted. There is no evidence of a bowel obstruction or inflammatory changes. Appendix is not seen definitely but there are no signs of appendicitis. A few diverticula are noted within the colon. Aorta/IVC: There is a severe calcification of aorta and multiple branches of the aorta. Peritoneum: There is no free fluid. Bones: Bones are diffusely osteopenic. Multiple compression fracture deformities of several vertebra noted including lower thoracic vertebra and L1. There is narrowing of intervertebral discs and accompanying endplate osteophyte formation. Hypertrophied facet joints also demonstrated. Scoliosis of the lower thoracic spine convex to the right and left convex lumbar scoliosis noted. IMPRESSION: No acute findings appreciated. Study limited by the lack of intravenous oral contrast as well as extensive motion artifact. 1.6 cm probable cystic lesion in the pancreatic tail. This requires further evaluation with the contrast CT or MR. Status post previous partial bowel resection. 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 Degenerative changes as described above. (4) Rhabdomyolysis (5) KAREN (acute kidney injury) (6) Decubitus skin ulcer Assessment & Plan: Pt presented on admission with multiple pressure injuries. Pt's niece Sarah stated pt lives alone and found pt laying on her R side on floor in patient's home.Niece believes pt has been laying on floor for approx 5 days. DTPI noted to R cheek. Base of wound is purple with marginal erythema along borders.(L)1.2cm x (W)1.6cm. Unstageable pressure injury R shoulder. Base of wound is 100% necrotic with marginal erythema along borders.(L)4.8cm x (W).3.5cm . DTPI R humerus. Base of wound is fluctuant and maroon in colour with surrounding erythema. (L)10.6cm x (W)3.1cm. DTPI R elbow.Base of wound is indurated with scattered areas that are purple in colour. An area of fluctuance in center. Marginal erythema along borders.(L) 5.3cm x (W)10.4cm. Partially opened Sacral DTPI. Base of wound is purple with surrounding erythema. Partial open wound marco a cleft that is corby and moist.(L)5.3cm x (W) 4.5cm.NO odor or exudate noted. Non-blanching erythema periwound. DTPI L ischium . Base of wound is purple and indurated.(L)6cm x (W)7.5cm. Unstageable pressure injury R hip. Base of wound is 75% necrotic, 25% mixed erythema and slough. Borders are moist,soft with scattered areas that are black. Periwound is dusky and indurated.No odor or exudate noted. DTPI at posterior and medial aspect of L heel. Base of wound is maroon and fluctuant(L)4cm x (W)7cm. Unstageable pressure injury L Hallux. Base of wound is 100% necrotic but soft. Borders are erythematous. Periwound without induration or fluctuance.(L)2.5cm x (W)3cm. DTPI medial L malleolus. Base of wound fluctuant and maroon in colour.(L) 0.3cm x (W)1.2cm. DTPI medial L malleolus. Base of wound fluctuant and maroon in colour with Marginal erythema along borders.(L)0.3cm x (W)1.2cm. Intact blood filled blisters noted to L 1st Metatarsal laterally and head of metatarsal. Intact blood filled blisters noted to heads of L 2nd and L 3rd metatarsals. DTPI noted to posterior and lateral R Heel. Posterior R heel is maroon in colour and fluctuant at base. Laterally ,R heel is black and fluctuant at base.Periwound is boggy and non-blanchable.(L)7cm x (W)8cm. Unstageable pressure injury lateral R malleolus. Base of wound is 100% necrotic and dry.Marginal erythema along borders.Periwound is fluctuant and erythematous( L)1.2cm x (W)1.5cm. DTPI distal/lateral R foot. Base of wound is fluctuant and maroon in colour.(L) 1.3cm x (W)1.7cm. DTPI lateral R 5th metatarsal. Base of wound is maroon and fluctuant with marginal erythema along borders .(L)0.7cm x (W)1.1cm Tx.Plan: Cleanse Wound R shoulder with Saline. Apply Therahoney. Apply Cavilon Skin barrier periwound. Cover with Optifoam drsg every 3 days and prn. Cleanse R hip wound with Saline. Apply Therahoney with 4x4 Gauze. Apply Moisture Barrier Paste periwound.Cover with Optifoam drsg. Daily and prn. Apply Moisture Barrier Paste to Sacral wound and L Ischium. Cover each wound with Optifoam drsg every 3 days and prn. Apply Betadine to R humerus and R elbow . Cover each wound with Optifoam drsg. Change every 3 days and prn. Apply Betadine to wounds R heel, R malleolus and R foot . Cover each wound with Optifoam drsg every 3 days and prn. Apply Betadine to wounds L heel ,L medial malleolus and L foot. Cover each wound with Optifoam drsgs every 3 Days and prn. Air Fluidized Mattress. Reposition at least every 2hours or as tolerated. Place Pillow between knees. Off-load heels with pillow. Additional Comments tunneled cath soon ordered Anshul Nava Jul 07, 2019 12:55
[2019-07-07 16:00] VITALS: BP 93/56
--- NOTE | 2019-07-07 16:41 | General Progress Note ---
Assessment/Plan Problem List: (1) Fall ICD Codes: W19.XXXA - Unspecified fall, initial encounter SNOMED: 7532451, 898567481 (2) Altered level of consciousness ICD Codes: R40.4 - Transient alteration of awareness SNOMED: 3202310 (3) Fracture of lumbar spine ICD Codes: S32.009A - Unspecified fracture of unspecified lumbar vertebra, initial encounter for closed fracture SNOMED: 075304267 (4) Rhabdomyolysis ICD Codes: M62.82 - Rhabdomyolysis SNOMED: 483562010 (5) KAREN (acute kidney injury) ICD Codes: N17.9 - Acute kidney failure, unspecified SNOMED: 1364372, 80604478 Status: stable Assessment/Plan: #Rhabdomyolosis #KAREN #Acute renal failure - on HD UF #Uremic encephalopathy #Anion gap metabolic acidosis #Lactic acidosis -resolved -Nephrology following for HD -Permcath placement on Monday by IR -Will need outpatient HD set-up -Will need SNF placement afterwards. #Left lung PNA - likely aspiration #Acute hypoxic respiratory failure s/p BiPAP - improved #Strep Viridans bacteremia #Worsening Leukocytosis #loose stools Noted to be acutely hypoxic on early AM of 06/25 -s/p BiPAP -> NC/room air intermittently -CT chest, CXR with left lung infiltrate. -ABG prn. -Pulmonology following -echo negative for vegetations -CXR 06/28: Bilateral interstitial thickening and patchy airspace opacities in the left lung, similar to prior study given differences in technique. -ID following - Now on Zyvox and meropenem, set to today. Will d/c ID on further duration? -Stool C. diff negative,oral vanco stopped #Hematuria -Urology consulted. -Irrigate hargrove. -Monitor CBC. #Dysphagia -s/p PEG -Continue TF #L1 vertebral fracture - likely old seen on imaging, likely old. -reassurance provided to family. #Transaminitis #Acute pancreatitis ?from dehydration, abd exam benign. -continue to trend LFT's, numbers improving -GI following #Type 2 NSTEMI likely demand in setting of renal failure. EKG wnl. -no need to trend. -cardiology consulted - pt will need stress test prior to d/c #Pressure wounds. -General surgery consulted for wound care, central line insertion on 06/24 -Cont. wound care and offloading Time spent: 39 mins, >50% on counseling and coordination of care. Time of note doesn't reflect time of encounter. Subjective Date patient seen: Jul 07, 2019 ROS Limited/Unobtainable: Yes - encephalopathic, Allergies: Coded Allergies: No Known Allergies (Unverified , 06/24/19) Subjective Resting in bed, minimally responsive when called. family members at bedside. updated about the plan. Objective Last 24 Hour Vital Signs Date Time Temp Pulse Resp B/P (MAP) Pulse Ox O2 Delivery O2 Flow Rate FiO2 07/07/19 16:00 98.1 120 21 93/56 (68) 100 07/07/19 13:43 98.6 07/07/19 12:30 114 07/07/19 12:00 98.6 122 18 128/72 (90) 99 07/07/19 09:00 Nasal Cannula 2.0 Nasal Cannula 2.0 07/07/19 08:00 98.6 109 20 109/55 (73) 100 07/07/19 04:00 97.8 108 22 139/72 (94) 94 07/07/19 00:00 98.9 120 22 124/64 (84) 94 07/06/19 21:00 Nasal Cannula 2.0 Nasal Cannula 2.0 07/06/19 20:00 99.0 110 22 95/63 (74) 100 Intake and Output 07/06/19 07/07/19 19:00 07:00 Intake Total 80 ml 500 ml Output Total 100 ml 520 ml Balance -20 ml -20 ml IV Total 300 ml Tube Feeding 80 ml 200 ml Output Urine Total 100 ml 520 ml # Voids 1 # Bowel Movements 2 1 Height (Feet): 5 Height (Inches): 3.00 Weight (Pounds): 116 General Appearance: no apparent distress Neck: supple Cardiovascular: normal rate, regular rhythm Respiratory/Chest: lungs clear, normal breath sounds Abdomen: non tender, soft René Rollins M.D. Jul 07, 2019 16:41
--- NOTE | 2019-07-07 17:45 | Consultation ---
DATE OF CONSULTATION: 07/07/2019 CONSULTING PHYSICIAN: Omar Mckoy M.D. REFERRING PHYSICIAN: René Rollins M.D. REASON FOR CONSULTATION: Evaluation of gross hematuria. HISTORY OF PRESENT ILLNESS: This is an 88-year-old female who was originally admitted to the hospital because of a fall and altered level of consciousness. The patient was noted to have rhabdomyolysis and acute kidney injury, which has progressed to end-stage renal disease. She has started hemodialysis. She has an indwelling Sanchez catheter. Gross hematuria was noted and Urology evaluation is requested. Most of the history was obtained from the chart. PAST MEDICAL HISTORY: Significant for above, again end-stage renal disease. The patient has GERD. PAST SURGICAL HISTORY: She has had placement of a temporary hemodialysis catheter. Other surgeries are unknown. CURRENT MEDICATIONS: In hospital was reviewed. She is currently on Epogen, meropenem, Haldol, linezolid, Lasix, Neurontin, Protonix, Tylenol, Dilaudid, Benadryl, Zofran, and Mucomyst. ALLERGIES: No known drug allergies. SOCIAL HISTORY: Currently nonsmoker. FAMILY HISTORY: Unable to obtain. REVIEW OF SYSTEMS: Unable to obtain. PHYSICAL EXAMINATION: GENERAL: An elderly female, cachectic, essentially nonverbal. VITAL SIGNS: Temperature is 98.6, blood pressure 120/72, pulse 55, and respirations 18. HEENT: Normocephalic. NECK: Supple. ABDOMEN: Soft. GENITOURINARY: 16-L[place]ian Sanchez catheter is in place. Urine is blood tinged. EXTREMITIES: Slightly contracted. LABORATORY DATA: Last UA showed 5 to 10 rbc's, 40 to 60 wbc's, moderate yeast, 4+ protein. White blood cell count is 14.7, hemoglobin 7.4, and platelets 290,000. BUN is 50, creatinine 2.6. Last urine culture showed Melanie. Her last blood cultures were negative. DIAGNOSTIC IMAGING STUDIES: The patient had a CT scan of the abdomen and pelvis. This was done on the . There was report that the kidneys appeared unremarkable and there was no mention of bladder mass. IMPRESSION: 1. Gross hematuria. 2. End-stage renal disease. 3. Urinary retention. 4. Possible neurogenic bladder. 5. Urinary tract infection and colonization. 6. Proteinuria. 7. Acute kidney injury history. PLAN AND DISCUSSION: Again, the patient has developed gross hematuria and I do not see active bleeding. I did personally hand irrigate the Sanchez. There was minimal clot. Urine clears up quick. The bleeding may be secondary to Sanchez trauma, possibly also cystitis or UTI. At this time, we will monitor closely and the nursing staff were instructed to hand irrigate the Sanchez as needed and at some point if feasible the patient may need to have cystoscopy electively to evaluate the bladder. The above was discussed with the patient's family. She is also to continue on antibiotics as ordered. I will follow the patient and any other recommendations will be forthcoming. Thank you for this consultation. Omar Mckoy M.D. DR: DEMETRI JOB#: [id number] CC:
--- NOTE | 2019-07-07 18:53 | General Progress Note ---
Assessment/Plan Status: stable Assessment/Plan: Assessment - dysphagia - KAREN - s/p GT - AMS - abnormal LFT - Pancreatic cyst - Anemia - OB (+) - Leukocytosis Recommendations - Follow labs - Elevate HOB - Continue TF - GT care Subjective Allergies: Coded Allergies: No Known Allergies (Unverified , 06/24/19) Subjective seen with family at bedside tolerating TF non communicative Objective Last 24 Hour Vital Signs Date Time Temp Pulse Resp B/P (MAP) Pulse Ox O2 Delivery O2 Flow Rate FiO2 07/07/19 16:00 98.1 120 21 93/56 (68) 100 07/07/19 13:43 98.6 07/07/19 12:30 114 07/07/19 12:00 98.6 122 18 128/72 (90) 99 07/07/19 09:00 Nasal Cannula 2.0 Nasal Cannula 2.0 07/07/19 08:21 98 Nasal Cannula 2.0 28 07/07/19 08:21 104 20 98 Nasal Cannula 2.0 28 07/07/19 08:00 98.6 109 20 109/55 (73) 100 07/07/19 04:00 97.8 108 22 139/72 (94) 94 07/07/19 00:00 98.9 120 22 124/64 (84) 94 07/06/19 21:00 Nasal Cannula 2.0 Nasal Cannula 2.0 07/06/19 20:00 99.0 110 22 95/63 (74) 100 Intake and Output 07/06/19 07/07/19 19:00 07:00 Intake Total 80 ml 500 ml Output Total 100 ml 520 ml Balance -20 ml -20 ml IV Total 300 ml Tube Feeding 80 ml 200 ml Output Urine Total 100 ml 520 ml # Voids 1 # Bowel Movements 2 1 Height (Feet): 5 Height (Inches): 3.00 Weight (Pounds): 116 Objective WDWN NCAT supple CTA RR ab, (+) GTd soft no edema Rajesh Bowling MD Jul 07, 2019 18:53
--- NOTE | 2019-07-07 19:38 | Infectious Diseases Prog Note ---
Assessment/Plan Assessment/Plan ASSESSMENT AND PLAN: 1. streptococcus viridans bacteremia, ? endocarditis, aspiration pna/hcap, atx, sepsis, leukocytosis, fevers, sob, arf, rhabdomyolysis c.diff. - negative, wounds noted, pancreatitis, elevated lft's, no sputum culture obtained, ? fungal uti vs colonizer, fungemia risk - meropenem and zyvox - day # 8 - finish course - diflucan x 5 days po for possible fungal uti since wbc still elevated - monitor labs and chest x-ray - TTE - no vegetation mentioned in repor - CT and US noted, lft's better - continue treatment per primary and consultants - wound care per surgery - doubt sepsis source - clinically better, leukocytosis improving - d/w family 2. Acute renal failure, crf - on hemodialysis 3. Rhabdomyolysis - per primary and renal medicine 4. Elevated LFTs. 5. CAD. 6. Non-STEMI. 7. No history of diabetes or hypertension. 8. Fall. 9. Altered level of consciousness. 10. Lumbar spine fracture. 11. No known drug allergies. 12. Social history is negative. 13. Family history is noncontributory. 14. MAR was noted. 15. Case was discussed with RN and family 16. Continue treatment per primary consultants. Subjective Constitutional: Denies: fever HEENT: Denies: congestion Respiratory: Denies: shortness of breath Cardiovascular: Denies: chest pain Gastrointestinal/Abdominal: Denies: nausea, vomiting, diarrhea Genitourinary: Reports: other - + hargrove Neurologic: Denies: headache Psychiatric: Denies: depression Skin: Denies: rash Hematologic: Denies: bleeding Musculoskeletal: Denies: pain Allergies: Coded Allergies: No Known Allergies (Unverified , 06/24/19) Objective Vital Signs Last 24 Hour Vital Signs Date Time Temp Pulse Resp B/P (MAP) Pulse Ox O2 Delivery O2 Flow Rate FiO2 07/07/19 16:00 98.1 120 21 93/56 (68) 100 07/07/19 13:43 98.6 07/07/19 12:30 114 07/07/19 12:00 98.6 122 18 128/72 (90) 99 07/07/19 09:00 Nasal Cannula 2.0 Nasal Cannula 2.0 07/07/19 08:21 98 Nasal Cannula 2.0 28 07/07/19 08:21 104 20 98 Nasal Cannula 2.0 28 07/07/19 08:00 98.6 109 20 109/55 (73) 100 07/07/19 04:00 97.8 108 22 139/72 (94) 94 07/07/19 00:00 98.9 120 22 124/64 (84) 94 07/06/19 21:00 Nasal Cannula 2.0 Nasal Cannula 2.0 07/06/19 20:00 99.0 110 22 95/63 (74) 100 Height (Feet): 5 Height (Inches): 3.00 Weight (Pounds): 116 General Appearance: no acute distress HEENT: normocephalic, atraumatic, anicteric, mucous membranes moist Respiratory/Chest: lungs clear, normal breath sounds, no respiratory distress, no accessory muscle use Cardiovascular: normal rate, regular rhythm, no gallop/murmur, no JVD Abdomen: normal bowel sounds, soft, non tender, no organomegaly, non distended Genitourinary: other - + hargrove Extremities: no cyanosis Skin: no rash 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 There is considerable interstitial and airspace disease throughout the left lung, however. Less extensive interstitial congestion is seen in the right lung. The heart size is normal. The aorta is tortuous and calcified Impression: Interim reexpansion of previously atelectatic left lung. However, there is considerable infiltrate and/or edema throughout the left lung. There is also persistent mild generalized interstitial congestion in the right lung CT Chest: IMPRESSION: Extensive airspace consolidation in the left lung involving the left perihilar, upper lobe and left lower lobe. Findings suspicious for pneumonia, especially aspiration given the abrupt onset. Please correlate clinically. Partial atelectasis of the left lower lobe also noted. Atherosclerotic vascular disease. Degenerative changes of the spine and scoliosis. CT abdomen and pelvis: IMPRESSION: No acute findings appreciated. Study limited by the lack of intravenous oral contrast as well as extensive motion artifact. 1.6 cm probable cystic lesion in the pancreatic tail. This requires further evaluation with the contrast CT or MR. Status post previous partial bowel resection. 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 Degenerative changes as described above. Chest x-ray - 07/01/19 - Procedure: XRAY Chest 1v Indication: Dyspnea Comparison: 06/30/2019 A single view chest radiograph was obtained. Findings: Interstitial densities demonstrated with cardiomegaly. There is blunting of the left costophrenic angle. There is a weighted feeding tube the tip of which is projected over the antrum and pyloric region. IMPRESSION: Mild interstitial edema presumably due to heart failure. Correlate clinically Abdominal US: IMPRESSION: No acute findings appreciated. Bilateral pleural effusions Cyst in the splenic hilar region. Contracted gallbladder with prominent wall. CT scan of abdomen and pelvis - 07/02/19 - Impression: 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 Otherwise unremarkable pancreas Small left pleural effusion, new since prior study of 06/24/2019. Bilateral basilar atelectasis and consolidation, increased from the prior exam No acute abnormality otherwise Nasogastric tube in good position Chest x-ray - 07/06/19 - IMPRESSION: 1. No significant interval change from the prior chest x-ray. 2. Pulmonary vascular congestion and/or pulmonary interstitial edema. 3. Possible small layering pleural effusions, greater on the left. 4. Left lung base/retrocardiac subsegmental atelectasis versus infiltrate. Microbiology Date/Time Source Procedure Growth Status 06/29/19 14:25 Blood Blood Culture - Final NO GROWTH AFTER 5 DAYS Complete 06/30/19 18:00 Stool Clostridium difficile Toxin Assay - Final Complete 07/04/19 18:29 Urine,Clean Catch Urine Culture - Final Melanie Albicans Complete Microbiology Date/Time Source Procedure Growth Status 06/29/19 14:25 Blood Blood Culture - Final NO GROWTH AFTER 5 DAYS Complete 06/30/19 18:00 Stool Clostridium difficile Toxin Assay - Final Complete 07/04/19 18:29 Urine,Clean Catch Urine Culture - Final Melanie Albicans Complete Labs Test 07/05/19 05:30 07/06/19 05:40 White Blood Count 18.7 K/UL (4.8-10.8) 14.7 K/UL (4.8-10.8) Red Blood Count 2.78 M/UL (4.20-5.40) 2.52 M/UL (4.20-5.40) Hemoglobin 8.2 G/DL (12.0-16.0) 7.4 G/DL (12.0-16.0) Hematocrit 24.2 % (37.0-47.0) 22.1 % (37.0-47.0) Mean Corpuscular Volume 87 FL (80-99) 88 FL (80-99) Mean Corpuscular Hemoglobin 29.3 PG (27.0-31.0) 29.3 PG (27.0-31.0) Mean Corpuscular Hemoglobin Concent 33.7 G/DL (32.0-36.0) 33.4 G/DL (32.0-36.0) Red Cell Distribution Width 13.1 % (11.6-14.8) 13.3 % (11.6-14.8) Platelet Count 258 K/UL (150-450) 290 K/UL (150-450) Mean Platelet Volume 8.8 FL (6.5-10.1) 7.8 FL (6.5-10.1) Neutrophils (%) (Auto) % (45.0-75.0) % (45.0-75.0) Lymphocytes (%) (Auto) % (20.0-45.0) % (20.0-45.0) Monocytes (%) (Auto) % (1.0-10.0) % (1.0-10.0) Eosinophils (%) (Auto) % (0.0-3.0) % (0.0-3.0) Basophils (%) (Auto) % (0.0-2.0) % (0.0-2.0) Differential Total Cells Counted 100 100 Neutrophils % (Manual) 82 % (45-75) 93 % (45-75) Lymphocytes % (Manual) 10 % (20-45) 5 % (20-45) Monocytes % (Manual) 8 % (1-10) 2 % (1-10) Eosinophils % (Manual) 0 % (0-3) 0 % (0-3) Basophils % (Manual) 0 % (0-2) 0 % (0-2) Band Neutrophils 0 % (0-8) 0 % (0-8) Platelet Estimate Adequate Adequate Platelet Morphology Normal Normal Hypochromasia 1+ 2+ Sodium Level 132 MMOL/L (136-145) 146 MMOL/L (136-145) Potassium Level 4.3 MMOL/L (3.5-5.1) 3.4 MMOL/L (3.5-5.1) Chloride Level 93 MMOL/L (98-107) 104 MMOL/L (98-107) Carbon Dioxide Level 21 MMOL/L (21-32) 29 MMOL/L (21-32) Anion Gap 18 mmol/L (5-15) 14 mmol/L (5-15) Blood Urea Nitrogen 102 mg/dL (7-18) 50 mg/dL (7-18) Creatinine 5.2 MG/DL (0.55-1.30) 2.6 MG/DL (0.55-1.30) Estimat Glomerular Filtration Rate 9.5 mL/min (>60) 21.1 mL/min (>60) Glucose Level 101 MG/DL (74-106) 96 MG/DL (74-106) Calcium Level 8.9 MG/DL (8.5-10.1) 9.9 MG/DL (8.5-10.1) Amylase Level 220 U/L (25-115) Lipase > 2000 U/L (73-393) Iron Level 25 ug/dL (50-175) Total Iron Binding Capacity 141 ug/dL (250-450) Percent Iron Saturation 18 % (15-50) Unsaturated Iron Binding 116 ug/dL (112-346) Ferritin 1363 NG/ML (8-388) Total Bilirubin 1.0 MG/DL (0.2-1.0) Aspartate Amino Transf (AST/SGOT) 49 U/L (15-37) Alanine Aminotransferase (ALT/SGPT) 58 U/L (12-78) Alkaline Phosphatase 75 U/L (46-116) Total Protein 6.7 G/DL (6.4-8.2) Albumin 4.0 G/DL (3.4-5.0) Globulin 2.7 g/dL Albumin/Globulin Ratio 1.5 (1.0-2.7) Current Medications Medications (Trade) Dose Ordered Sig/Joan Route PRN Reason Start Time Stop Time Status Last Admin Dose Admin Acetaminophen (Tylenol) 650 mg Q4H PRN NG Mild Pain/Temp > 100.5 07/04/19 20:30 08/01/19 12:29 Acetylcysteine (Mucomyst) 100 mg Q4H PRN HHN Shortness of Breath 07/04/19 18:00 08/03/19 17:59 Albumin Human 100 ml @ 100 mls/hr NEEDED PRN IV DIALYSIS 07/04/19 19:00 08/03/19 18:59 07/06/19 01:30 Chlorhexidine Gluconate (Cari-Hex 2%) 1 applic DAILY@2000 TOPIC 07/04/19 20:00 07/26/19 19:59 07/06/19 21:06 Dextrose (Dextrose 50%) 25 ml Q30M PRN IV Hypoglycemia 07/04/19 20:00 07/24/19 19:51 Dextrose (Dextrose 50%) 50 ml Q30M PRN IV Hypoglycemia 07/04/19 20:00 07/24/19 19:51 Diphenhydramine HCl (Benadryl) 25 mg Q6H PRN ORAL Itching/Pruritis 07/04/19 20:00 07/24/19 19:51 Epoetin Dion (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)) 6,000 unit MON-MON-MON SUBQ 07/08/19 21:00 08/07/19 20:59 Furosemide (Lasix) 40 mg DAILY IV 07/05/19 09:00 07/30/19 19:59 07/07/19 09:16 Gabapentin (Neurontin) 300 mg BID GT 07/05/19 09:00 08/01/19 17:59 07/07/19 17:23 Haloperidol Lactate (Haldol) 5 mg Q6H PRN IM Agitation 07/06/19 01:45 08/20/19 01:44 Hydromorphone HCl (Dilaudid) 0.5 mg Q2H PRN IVP Severe Pain (Pain Scale 7-10) 07/04/19 20:30 07/09/19 12:29 07/07/19 13:13 Linezolid 300 ml @ 300 mls/hr EVERY 12 HOURS IVPB 07/05/19 21:00 07/08/19 20:59 07/07/19 09:14 Meropenem 500 mg/ Sodium Chloride 50 ml @ 100 mls/hr Q24HRS IVPB 07/07/19 17:30 07/10/19 17:29 07/07/19 17:48 Ondansetron HCl (Zofran) 4 mg Q4H PRN IVP Nausea & Vomiting 07/04/19 20:00 08/02/19 19:59 Pantoprazole (Protonix) 40 mg DAILY IVP 07/05/19 09:00 07/30/19 08:59 07/07/19 09:15 Ana Rosado MD Jul 07, 2019 19:38
[2019-07-07 20:00] VITALS: BP_SYST 123; BP_SYST 137; BP_DIAS 59; BP_DIAS 92
[2019-07-07] MEDS: Dyna-Hex 2% Top Sol 2oz TOPIC SCH (21:55)
[2019-07-08] VITALS: BP 128/80
[2019-07-08 04:00] VITALS: BP 136/69
[2019-07-08 07:27] LABS: ALANINE AMINOTRANSFERASE 43 U/L (12-78); ALBUMIN 2.9 G/DL (3.4-5.0); ALKALINE PHOSPHATASE 74 U/L (46-116); ASPARTATE AMINO TRANSFERASE 43 U/L (15-37); BILIRUBIN,DIRECT 0.2 MG/DL (0.0-0.3); BILIRUBIN,TOTAL 0.6 MG/DL (0.2-1.0)
[2019-07-08 07:33] LABS: ALANINE AMINOTRANSFERASE 43 U/L (12-78); ALBUMIN 2.9 G/DL (3.4-5.0); ALKALINE PHOSPHATASE 76 U/L (46-116); ANION GAP 17 mmol/L (5-15); ASPARTATE AMINO TRANSFERASE 41 U/L (15-37); BILIRUBIN,TOTAL 0.6 MG/DL (0.2-1.0); BLOOD UREA NITROGEN 99 mg/dL (7-18); CALCIUM 9.3 MG/DL (8.5-10.1); CARBON DIOXIDE 23 MMOL/L (21-32); CHLORIDE 103 MMOL/L (98-107); CREATININE 4.9 MG/DL (0.55-1.30); POTASSIUM 3.9 MMOL/L (3.5-5.1); SODIUM 142 MMOL/L (136-145)
--- NOTE | 2019-07-08 08:22 | Cardiology Progress Note ---
Assessment/Plan Status: stable Assessment/Plan Assessment/Plan Status: stable Assessment/Plan: Assessment Elevated troponin Syncope. Elevated LFT KAREN/CKD Rhabdomyolysis Plan d/c Trend troponin Monitor on telemetry Echocardiogram reviewed no vegetation Stress test prior to discharge Hold heparin re: hematuria PEG tube placement continue tube feeds Maintain HD Abx per ID/pulm Pulmonary toilet Supportive care Dispo SNF Subjective Cardiovascular: Reports: no symptoms Respiratory: Reports: no symptoms Gastrointestinal/Abdominal: Reports: no symptoms Genitourinary: Reports: no symptoms Subjective No acute events, s/p PEG tube, tolerated HD, no distress,no bleeding no fevers. Awaiting perm cath and SNF placement Objective Last 24 Hour Vital Signs Date Time Temp Pulse Resp B/P (MAP) Pulse Ox O2 Delivery O2 Flow Rate FiO2 07/08/19 07:42 98 Nasal Cannula 2.0 28 07/08/19 07:41 104 20 98 Nasal Cannula 2.0 28 07/08/19 04:00 97.8 118 23 136/69 (91) 97 07/08/19 00:00 97.8 115 22 128/80 (96) 98 07/07/19 21:00 Nasal Cannula 2.0 Nasal Cannula 2.0 07/07/19 20:00 98.5 119 23 123/59 (80) 100 07/07/19 16:00 98.1 120 21 93/56 (68) 100 07/07/19 13:43 98.6 07/07/19 12:30 114 07/07/19 12:00 98.6 122 18 128/72 (90) 99 07/07/19 09:00 Nasal Cannula 2.0 Nasal Cannula 2.0 07/07/19 08:21 98 Nasal Cannula 2.0 28 07/07/19 08:21 104 20 98 Nasal Cannula 2.0 28 General Appearance: no apparent distress, lethargic EENT: PERRL/EOMI, normal ENT inspection, TMs normal, pharynx normal Neck: non-tender, normal alignment, supple, normal inspection, no JVD Rhythm: NSR Cardiovascular: normal peripheral pulses, normal rate, regular rhythm Respiratory/Chest: chest wall non-tender, lungs clear, normal breath sounds Abdomen: normal bowel sounds, non tender, soft, no organomegaly, no mass Extremities: normal range of motion, non-tender, normal inspection, no calf tenderness, no swelling Neurologic: 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 carrier 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 normal, no motor/sensory deficits Intake and Output 07/07/19 07/08/19 19:00 07:00 Intake Total 920 ml 940 ml Balance 920 ml 940 ml Free Water 180 ml 200 ml IV Total 300 ml 300 ml Tube Feeding 440 ml 440 ml # Bowel Movements 1 2 Laboratory Tests Test 07/08/19 05:10 Sodium Level 142 MMOL/L (136-145) Potassium Level 3.9 MMOL/L (3.5-5.1) Chloride Level 103 MMOL/L (98-107) Carbon Dioxide Level 23 MMOL/L (21-32) Anion Gap 17 mmol/L (5-15) H Blood Urea Nitrogen 99 mg/dL (7-18) H Creatinine 4.9 MG/DL (0.55-1.30) H Estimat Glomerular Filtration Rate 10.2 mL/min (>60) Glucose Level 127 MG/DL (74-106) H Calcium Level 9.3 MG/DL (8.5-10.1) Total Bilirubin 0.6 MG/DL (0.2-1.0) Direct Bilirubin 0.2 MG/DL (0.0-0.3) Aspartate Amino Transf (AST/SGOT) 43 U/L (15-37) H Alanine Aminotransferase (ALT/SGPT) 43 U/L (12-78) Alkaline Phosphatase 74 U/L (46-116) Total Protein 5.4 G/DL (6.4-8.2) L Albumin 2.9 G/DL (3.4-5.0) L Globulin 2.9 g/dL Albumin/Globulin Ratio 1.0 (1.0-2.7) Melchor Cerna MD Jul 08, 2019 08:22
--- NOTE | 2019-07-08 08:46 | Urology Progress Note ---
Assessment/Plan Status: stable Assessment/Plan: 1. Gross hematuria. 2. End-stage renal disease. 3. Urinary retention. 4. Possible neurogenic bladder. 5. Urinary tract infection and colonization. 6. Proteinuria. 7. Acute kidney injury history. monitor clinically hargrove hand irrigated and do PRN abx as ordered HD per nephrology cysto later d/w nursing staff Subjective Allergies: Coded Allergies: No Known Allergies (Unverified , 06/24/19) Subjective all noted, looks comfortable Objective Last 24 Hour Vital Signs Date Time Temp Pulse Resp B/P (MAP) Pulse Ox O2 Delivery O2 Flow Rate FiO2 07/08/19 07:42 98 Nasal Cannula 2.0 28 07/08/19 07:41 104 20 98 Nasal Cannula 2.0 28 07/08/19 04:00 97.8 118 23 136/69 (91) 97 07/08/19 00:00 97.8 115 22 128/80 (96) 98 07/07/19 21:00 Nasal Cannula 2.0 Nasal Cannula 2.0 07/07/19 20:00 98.5 119 23 123/59 (80) 100 07/07/19 16:00 98.1 120 21 93/56 (68) 100 07/07/19 13:43 98.6 07/07/19 12:30 114 07/07/19 12:00 98.6 122 18 128/72 (90) 99 07/07/19 09:00 Nasal Cannula 2.0 Nasal Cannula 2.0 Intake and Output 07/07/19 07/08/19 19:00 07:00 Intake Total 920 ml 940 ml Balance 920 ml 940 ml Free Water 180 ml 200 ml IV Total 300 ml 300 ml Tube Feeding 440 ml 440 ml # Bowel Movements 1 2 Microbiology Date/Time Source Procedure Growth Status 06/29/19 14:25 Blood Blood Culture - Final NO GROWTH AFTER 5 DAYS Complete 06/30/19 18:00 Stool Clostridium difficile Toxin Assay - Final Complete 07/04/19 18:29 Urine,Clean Catch Urine Culture - Final Melanie Albicans Complete Current Medications Medications (Trade) Dose Ordered Sig/Joan Route PRN Reason Start Time Stop Time Status Last Admin Dose Admin Acetaminophen (Tylenol) 650 mg Q4H PRN NG Mild Pain/Temp > 100.5 07/04/19 20:30 08/01/19 12:29 Acetylcysteine (Mucomyst) 100 mg Q4H PRN HHN Shortness of Breath 07/04/19 18:00 08/03/19 17:59 Albumin Human 100 ml @ 100 mls/hr NEEDED PRN IV DIALYSIS 07/04/19 19:00 08/03/19 18:59 07/06/19 01:30 Chlorhexidine Gluconate (Cari-Hex 2%) 1 applic DAILY@2000 TOPIC 07/04/19 20:00 07/26/19 19:59 07/07/19 21:55 Dextrose (Dextrose 50%) 25 ml Q30M PRN IV Hypoglycemia 07/04/19 20:00 07/24/19 19:51 Dextrose (Dextrose 50%) 50 ml Q30M PRN IV Hypoglycemia 07/04/19 20:00 07/24/19 19:51 Diphenhydramine HCl (Benadryl) 25 mg Q6H PRN ORAL Itching/Pruritis 07/04/19 20:00 07/24/19 19:51 Epoetin Dion (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)) 6,000 unit MON-MON-MON SUBQ 07/08/19 21:00 08/07/19 20:59 Fluconazole (Diflucan) 100 mg DAILY ORAL 07/08/19 09:00 07/15/19 08:59 Furosemide (Lasix) 40 mg DAILY IV 07/05/19 09:00 07/30/19 19:59 07/07/19 09:16 Gabapentin (Neurontin) 300 mg BID GT 07/05/19 09:00 08/01/19 17:59 07/07/19 17:23 Haloperidol Lactate (Haldol) 5 mg Q6H PRN IM Agitation 07/06/19 01:45 08/20/19 01:44 Hydromorphone HCl (Dilaudid) 0.5 mg Q2H PRN IVP Severe Pain (Pain Scale 7-10) 07/04/19 20:30 07/09/19 12:29 07/07/19 13:13 Linezolid 300 ml @ 300 mls/hr EVERY 12 HOURS IVPB 07/05/19 21:00 07/08/19 20:59 07/07/19 21:55 Meropenem 500 mg/ Sodium Chloride 50 ml @ 100 mls/hr Q24HRS IVPB 07/07/19 17:30 07/10/19 17:29 07/07/19 17:48 Ondansetron HCl (Zofran) 4 mg Q4H PRN IVP Nausea & Vomiting 07/04/19 20:00 08/02/19 19:59 Pantoprazole (Protonix) 40 mg DAILY IVP 07/05/19 09:00 07/30/19 08:59 07/07/19 09:15 Laboratory Tests 07/08/19 05:10: Sodium Level 142, Potassium Level 3.9, Chloride Level 103, Carbon Dioxide Level 23, Anion Gap 17H, Blood Urea Nitrogen 99H, Creatinine 4.9H, Estimat Glomerular Filtration Rate 10.2, Glucose Level 127H, Calcium Level 9.3, Total Bilirubin 0.6 , Direct Bilirubin 0.2, Aspartate Amino Transf (AST/SGOT) 43H, Alanine Aminotransferase (ALT/SGPT) 43, Alkaline Phosphatase 74, Total Protein 5.4L, Albumin 2.9L, Globulin 2.9, Albumin/Globulin Ratio 1.0 Height (Feet): 5 Height (Inches): 3.00 Weight (Pounds): 116 Objective exam stable hargrove indwelling urine blood-tinged/neal Leelee,Omar Tillman MD Jul 08, 2019 08:46
--- NOTE | 2019-07-08 09:29 | General Progress Note ---
Assessment/Plan Problem List: (1) KAREN (acute kidney injury) ICD Codes: N17.9 - Acute kidney failure, unspecified SNOMED: 6062857, 72467030 (2) Altered level of consciousness ICD Codes: R40.4 - Transient alteration of awareness SNOMED: 0079970 Status: stable Assessment/Plan: dysphagia elevated LFTS pancreatitis based on elevated lipase fatty liver ESRD pancreatic cyst anemia stool ob positive GTF repeat labs abx per ID CT reviewed improving LFTS, wbc and lipase abx per ID HD per nephrology Subjective ROS Limited/Unobtainable: No Allergies: Coded Allergies: No Known Allergies (Unverified , 06/24/19) Objective Last 24 Hour Vital Signs Date Time Temp Pulse Resp B/P (MAP) Pulse Ox O2 Delivery O2 Flow Rate FiO2 07/08/19 07:42 98 Nasal Cannula 2.0 28 07/08/19 07:41 104 20 98 Nasal Cannula 2.0 28 07/08/19 04:00 97.8 118 23 136/69 (91) 97 07/08/19 00:00 97.8 115 22 128/80 (96) 98 07/07/19 21:00 Nasal Cannula 2.0 Nasal Cannula 2.0 07/07/19 20:00 98.5 119 23 123/59 (80) 100 07/07/19 16:00 98.1 120 21 93/56 (68) 100 07/07/19 13:43 98.6 07/07/19 12:30 114 07/07/19 12:00 98.6 122 18 128/72 (90) 99 Intake and Output 07/07/19 07/08/19 19:00 07:00 Intake Total 920 ml 940 ml Balance 920 ml 940 ml Free Water 180 ml 200 ml IV Total 300 ml 300 ml Tube Feeding 440 ml 440 ml # Bowel Movements 1 2 Laboratory Tests 07/08/19 05:10: Sodium Level 142, Potassium Level 3.9, Chloride Level 103, Carbon Dioxide Level 23, Anion Gap 17H, Blood Urea Nitrogen 99H, Creatinine 4.9H, Estimat Glomerular Filtration Rate 10.2, Glucose Level 127H, Calcium Level 9.3, Total Bilirubin 0.6 , Direct Bilirubin 0.2, Aspartate Amino Transf (AST/SGOT) 43H, Alanine Aminotransferase (ALT/SGPT) 43, Alkaline Phosphatase 74, Total Protein 5.4L, Albumin 2.9L, Globulin 2.9, Albumin/Globulin Ratio 1.0 Height (Feet): 5 Height (Inches): 3.00 Weight (Pounds): 116 General Appearance: no apparent distress EENT: normal ENT inspection Neck: supple Cardiovascular: normal rate Respiratory/Chest: decreased breath sounds Abdomen: normal bowel sounds, non tender, soft Extremities: non-tender Jun Mena MD Jul 08, 2019 09:29
[2019-07-08] MEDS: Gabapentin 300 MG/6 ML Soln GT SCH ×2 (11:13→19:05)
[2019-07-08] MEDS: Fluconazole 100mg tab ORAL SCH (11:13)
[2019-07-08] MEDS: Pantoprazole Inj IVP SCH (11:13)
--- NOTE | 2019-07-08 11:56 | Pulmonology Progress Note ---
Assessment/Plan Assessment/Plan IMPRESSION: 1. Extensive left lung pneumonia. Latest CXR shows significant clearing 2. Pulmonary edema. 3. Respiratory failure; now off BiPAP DISCUSSION: Continue antibiotics per ID Dialysis per renal Use BiPAP prn. Supplemental O2. I will continue to follow carefully. Abrahan Samaniego M.D. Subjective Interval Events: None new; on HD Constitutional: Reports: no symptoms HEENT: Repors: no symptoms Respiratory: Reports: no symptoms Cardiovascular: Reports: no symptoms Gastrointestinal/Abdominal: Reports: no symptoms Allergies: Coded Allergies: No Known Allergies (Unverified , 06/24/19) Objective Last 24 Hour Vital Signs Date Time Temp Pulse Resp B/P (MAP) Pulse Ox O2 Delivery O2 Flow Rate FiO2 07/08/19 07:42 98 Nasal Cannula 2.0 28 07/08/19 07:41 104 20 98 Nasal Cannula 2.0 28 07/08/19 04:00 97.8 118 23 136/69 (91) 97 07/08/19 00:00 97.8 115 22 128/80 (96) 98 07/07/19 21:00 Nasal Cannula 2.0 Nasal Cannula 2.0 07/07/19 20:00 98.5 119 23 123/59 (80) 100 07/07/19 16:00 98.1 120 21 93/56 (68) 100 07/07/19 13:43 98.6 07/07/19 12:30 114 07/07/19 12:00 98.6 122 18 128/72 (90) 99 Intake and Output 07/07/19 07/08/19 19:00 07:00 Intake Total 920 ml 940 ml Balance 920 ml 940 ml Free Water 180 ml 200 ml IV Total 300 ml 300 ml Tube Feeding 440 ml 440 ml # Bowel Movements 1 2 General Appearance: no acute distress HEENT: normocephalic Respiratory/Chest: chest wall non-tender Cardiovascular: normal peripheral pulses Abdomen: normal bowel sounds Laboratory Tests 07/08/19 05:10: Sodium Level 142, Potassium Level 3.9, Chloride Level 103, Carbon Dioxide Level 23, Anion Gap 17H, Blood Urea Nitrogen 99H, Creatinine 4.9H, Estimat Glomerular Filtration Rate 10.2, Glucose Level 127H, Calcium Level 9.3, Total Bilirubin 0.6 , Direct Bilirubin 0.2, Aspartate Amino Transf (AST/SGOT) 43H, Alanine Aminotransferase (ALT/SGPT) 43, Alkaline Phosphatase 74, Total Protein 5.4L, Albumin 2.9L, Globulin 2.9, Albumin/Globulin Ratio 1.0 Current Medications Medications (Trade) Dose Ordered Sig/Joan Route PRN Reason Start Time Stop Time Status Last Admin Dose Admin Acetaminophen (Tylenol) 650 mg Q4H PRN NG Mild Pain/Temp > 100.5 07/04/19 20:30 08/01/19 12:29 Acetylcysteine (Mucomyst) 100 mg Q4H PRN HHN Shortness of Breath 07/04/19 18:00 08/03/19 17:59 Albumin Human 100 ml @ 100 mls/hr NEEDED PRN IV DIALYSIS 07/04/19 19:00 08/03/19 18:59 07/06/19 01:30 Chlorhexidine Gluconate (Cari-Hex 2%) 1 applic DAILY@2000 TOPIC 07/04/19 20:00 07/26/19 19:59 07/07/19 21:55 Dextrose (Dextrose 50%) 25 ml Q30M PRN IV Hypoglycemia 07/04/19 20:00 07/24/19 19:51 Dextrose (Dextrose 50%) 50 ml Q30M PRN IV Hypoglycemia 07/04/19 20:00 07/24/19 19:51 Diphenhydramine HCl (Benadryl) 25 mg Q6H PRN ORAL Itching/Pruritis 07/04/19 20:00 07/24/19 19:51 Epoetin Dion (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)) 6,000 unit MON-MON-MON SUBQ 07/08/19 21:00 08/07/19 20:59 Fluconazole (Diflucan) 100 mg DAILY ORAL 07/08/19 09:00 07/15/19 08:59 07/08/19 11:13 Furosemide (Lasix) 40 mg DAILY IV 07/05/19 09:00 07/30/19 19:59 07/08/19 11:12 Gabapentin (Neurontin) 300 mg BID GT 07/05/19 09:00 08/01/19 17:59 07/08/19 11:13 Haloperidol Lactate (Haldol) 5 mg Q6H PRN IM Agitation 07/06/19 01:45 08/20/19 01:44 Hydromorphone HCl (Dilaudid) 0.5 mg Q2H PRN IVP Severe Pain (Pain Scale 7-10) 07/04/19 20:30 07/09/19 12:29 07/07/19 13:13 Linezolid 300 ml @ 300 mls/hr EVERY 12 HOURS IVPB 07/05/19 21:00 07/08/19 20:59 07/07/19 21:55 Meropenem 500 mg/ Sodium Chloride 50 ml @ 100 mls/hr Q24HRS IVPB 07/07/19 17:30 07/10/19 17:29 07/07/19 17:48 Ondansetron HCl (Zofran) 4 mg Q4H PRN IVP Nausea & Vomiting 07/04/19 20:00 08/02/19 19:59 Pantoprazole (Protonix) 40 mg DAILY IVP 07/05/19 09:00 07/30/19 08:59 07/08/19 11:13 Abrahan Samaniego MD Jul 08, 2019 11:56
[2019-07-08 12:00] VITALS: BP 90/68
--- NOTE | 2019-07-08 12:46 | Nephrology Progress Note ---
Assessment/Plan Plan #acute renal failure on possible CKD- due to rhabdo- UA with + RBC- concerns for developing ATN #Uremia #complete opacification of the left hemithorax- likely aspiration pneumonia #lactic acidosis #Hypernatremia- improved #AMS #elevated liver enzyme - HD monday - plan for permacath on monday - continue lasix 40mg daily challenge - monitor UOP - PEG 07/04 - pulmonary eval - on room air now - renal US-> No obstructive nephropathy. - monitor liver enzymes and lipase - Gi eval - continue with abx per ID Subjective Subjective s/p PEG 07/04 HD 07/04 BP stable on NC plan for permcath on monday CT chest: Extensive airspace consolidation in the left lung involving the left perihilar, upper lobe and left lower lobe. Findings suspicious for pneumonia, especially aspiration given the abrupt onset. Please correlate clinically. Partial atelectasis of the left lower lobe also noted Objective Objective Last 24 Hour Vital Signs Date Time Temp Pulse Resp B/P (MAP) Pulse Ox O2 Delivery O2 Flow Rate FiO2 07/08/19 07:42 98 Nasal Cannula 2.0 28 07/08/19 07:41 104 20 98 Nasal Cannula 2.0 28 07/08/19 04:00 97.8 118 23 136/69 (91) 97 07/08/19 00:00 97.8 115 22 128/80 (96) 98 07/07/19 21:00 Nasal Cannula 2.0 Nasal Cannula 2.0 07/07/19 20:00 98.5 119 23 123/59 (80) 100 07/07/19 16:00 98.1 120 21 93/56 (68) 100 07/07/19 13:43 98.6 Intake and Output 07/07/19 07/08/19 19:00 07:00 Intake Total 920 ml 940 ml Balance 920 ml 940 ml Free Water 180 ml 200 ml IV Total 300 ml 300 ml Tube Feeding 440 ml 440 ml # Bowel Movements 1 2 Laboratory Tests 07/08/19 05:10: Sodium Level 142, Potassium Level 3.9, Chloride Level 103, Carbon Dioxide Level 23, Anion Gap 17H, Blood Urea Nitrogen 99H, Creatinine 4.9H, Estimat Glomerular Filtration Rate 10.2, Glucose Level 127H, Calcium Level 9.3, Total Bilirubin 0.6 , Direct Bilirubin 0.2, Aspartate Amino Transf (AST/SGOT) 43H, Alanine Aminotransferase (ALT/SGPT) 43, Alkaline Phosphatase 74, Total Protein 5.4L, Albumin 2.9L, Globulin 2.9, Albumin/Globulin Ratio 1.0 Height (Feet): 5 Height (Inches): 3.00 Weight (Pounds): 116 Objective General Appearance: lethargic, confused, on bipap Lines, tubes and drains: peripheral HEENT: normocephalic, atraumatic Neck: non-tender Respiratory/Chest: minimal breath sounds on the left Cardiovascular/Chest: normal peripheral pulses, normal rate, regular rhythm, regularly irregular Abdomen: non tender, soft Rory Oconnor M.D. Jul 08, 2019 12:46
[2019-07-08] MEDS ORDERED: Heparin1,000 units/500ml Premix(Conc:2 units/ml) INJ PRN (13:30)
[2019-07-08] MEDS ORDERED: Lidocaine 2% 20mg/ml/Epi 0.005mg/ml 20ml vial INJ PRN (13:30)
--- NOTE | 2019-07-08 15:49 | Surgery Progress Note ---
Surgery Progress Note Subjective Procedure Performed Left femoral temporary hemodialysis catheter insertion Symptoms: improved Objective Last 24 Hour Vital Signs Date Time Temp Pulse Resp B/P (MAP) Pulse Ox O2 Delivery O2 Flow Rate FiO2 07/08/19 12:00 98.2 114 23 90/68 (75) 98 07/08/19 09:00 Nasal Cannula 2.0 Nasal Cannula 2.0 07/08/19 07:42 98 Nasal Cannula 2.0 28 07/08/19 07:41 104 20 98 Nasal Cannula 2.0 28 07/08/19 04:00 97.8 118 23 136/69 (91) 97 07/08/19 00:00 97.8 115 22 128/80 (96) 98 07/07/19 21:00 Nasal Cannula 2.0 Nasal Cannula 2.0 07/07/19 20:00 98.5 119 23 123/59 (80) 100 07/07/19 16:00 98.1 120 21 93/56 (68) 100 I&O Intake and Output 07/07/19 07/08/19 19:00 07:00 Intake Total 920 ml 940 ml Balance 920 ml 940 ml Free Water 180 ml 200 ml IV Total 300 ml 300 ml Tube Feeding 440 ml 440 ml # Bowel Movements 1 2 Dressing: other Wound: other Drains: other Cardiovascular: RSR Respiratory: decreased breath sounds Abdomen: soft, non-tender, present bowel sounds Extremities: no tenderness, no cyanosis Laboratory Tests Test 07/08/19 05:10 Sodium Level 142 MMOL/L (136-145) Potassium Level 3.9 MMOL/L (3.5-5.1) Chloride Level 103 MMOL/L (98-107) Carbon Dioxide Level 23 MMOL/L (21-32) Anion Gap 17 mmol/L (5-15) H Blood Urea Nitrogen 99 mg/dL (7-18) H Creatinine 4.9 MG/DL (0.55-1.30) H Estimat Glomerular Filtration Rate 10.2 mL/min (>60) Glucose Level 127 MG/DL (74-106) H Calcium Level 9.3 MG/DL (8.5-10.1) Total Bilirubin 0.6 MG/DL (0.2-1.0) Direct Bilirubin 0.2 MG/DL (0.0-0.3) Aspartate Amino Transf (AST/SGOT) 43 U/L (15-37) H Alanine Aminotransferase (ALT/SGPT) 43 U/L (12-78) Alkaline Phosphatase 74 U/L (46-116) Total Protein 5.4 G/DL (6.4-8.2) L Albumin 2.9 G/DL (3.4-5.0) L Globulin 2.9 g/dL Albumin/Globulin Ratio 1.0 (1.0-2.7) Plan Problems: (1) Fall Assessment & Plan: 88 year old female s/p fall now with renal insufficiency requiring HD spoke with family. she has known CKD multiple decubitus ulcers from being down malnutrition line placed see documentation trend labs abx HD thank you prognosis guarded family at bedside cxr noted pna worsening R cheek pressure injury resolved. Unstageable pressure injury R shoulder now has 90% necrosis,surrounding 10% pink granulation(L()4.1cm x (W)3.3cm. No odor or exudate noted.No erythema or induration periwound. Reabsorbed DTPI R Humerus. Base of wound is dry,brown with pink epithelial at the distal base of wound(L)9.4cm x (W)3.1cm. DTPI R elbow has resolved. Scattered dry brown peeling skin noted. No erythema noted. DTPI sacrum less indurated (L)4.5cm x (W)6cm. Small opening at marco a cleft that is corby and moist(L)1.5cm x (W)0.3cm. No exudate noted. L ischial DTPI reabsorbed(L)6cm x (W)7cm. Base of injury black. No erythema or evidence of further breakdown periwound. Unstageable pressure injury R hip(L)8.9cm x (W)14.2cm. Base of wound has 50% slough ,25% soft necrosis, 25% pink granulation along borders.Edges adherent to base of wound. No odor or exudate noted. DTPI medial/posterior L heel reabsorbed. Base of injury is boggy but blanchable. Unstageable Pressure Injury L Hallux resolving.(L)4.3cm x (W)3.7cm. Base of wound is 60% necrotic,10% slough with surrounding 30% pink granulation. Marginal erythema periwound. Small amt purulent exudate noted. No odor noted. DTPI medial L malleolus reabsorbed. Dry brown patch noted. Reabsorbed blood blisters L 1st,2nd and 3rd metatarsals. Dry brown patches noted dorsally all 3 metatarsals. R heel DTPI resolving. R heel is boggy but blanchable. Unstageable pressure injury lateral R malleolus. Base of wound has scattered slough. Borders are macerated with marginal erythema periwound.(L)0.7cm x (W) 1.3cm. No erythema or fluctuance periwound. DTPI distal/lateral R foot resolving. Base of injury is maroon /fluctuant. No erythema or induration periwound. DTPI lateral R 5th metatarsal resolved. Wound care provided. Wound Tx are effective and continued as ordered. All wound prevention protocols continued as care-planned. Family member at bedside and updated on wound progress. DAILY ESTIMATED NEEDS: Needs based on Wounds, 51.8kg 30-35 kcals/kg 1641-9845 total kcals 1.25-1.5 g protein/kg 65-78 g total protein 25-30ml/kcal mL/kg 1081-8778 total fluid mLs NUTRITION DIAGNOSIS: * Increased kcal and pro needs r/t wound healing and renal failure as evidenced by, s/p fall w/ pressure wounds per MD, refer to WC eval, ARF needing HD. * Swallowing difficulty R/T dysphagia as evidenced by s/p NGT placement, plan for PEG placement w/ consent and medical clearance, TF held for possible pancreatitis. CURRENT TF:NPO- TF HELD FOR POSSIBLE PANCREATITIS ENTERAL NUTRITION RECOMMENDATIONS: NEPRO @36ml/hr x24 hrs to provide 864ml, 1555 kcal, 70g pro, 628ml free H2O free H2O - As medically appropriate, resume TF - Start @16ml/hr for 8 hrs, advance as tolerated 5ml/hr q4-6 hrs to goal. - Flush per MD/ HOB Over 30 degrees - PT AT HIGH RISK FOR REFEEDING SYNDROME, MONITOR LYTES DAILY, REPLETE NEEDED ADDITIONAL RECOMMENDATIONS: 1) Monitor ability to resume TF NGT feeds held 06/30 for possible pancreatitis. If unable to feed via GI, consider initiating TPN due to proloned NPO, minimal intake status 2) WOUND CARE: W/ active TF order add VASQUEZ in 4oz H2O BID 3) Rec added dextrose when NPO 4) Calibrated bed scale wts daily 5) Monitor lytes closely w/ TF- high risk for refeeding syndrome (2) Altered level of consciousness (3) Fracture of lumbar spine Assessment & Plan: Lungs: There is increased density at the lung bases likely atelectasis. Aorta is moderately calcified. There is a small hiatal hernia.. Liver: Grossly unremarkable. There is artifact limiting evaluation in addition to the fact that no IV or oral contrast was given for this examination. Gallbladder/biliary system: Grossly unremarkable. Spleen: Unremarkable Pancreas: In the area of the pancreatic tail there is a 1.6 cm nodular density which may be cystic. Further evaluation is recommended. Kidneys/Bladder: Vascular calcifications are quite extensive and extend to the hilum of both kidneys. Evaluation for punctate nonobstructive stones is limited in this setting but no definite stones seen. There is no hydronephrosis. Extensive breathing motion limiting evaluation.. Adrenal glands: Unremarkable Bowel: Patient's prior partial bowel resection in the right lower abdomen with anastomotic sutures noted. There is no evidence of a bowel obstruction or inflammatory changes. Appendix is not seen definitely but there are no signs of appendicitis. A few diverticula are noted within the colon. Aorta/IVC: There is a severe calcification of aorta and multiple branches of the aorta. Peritoneum: There is no free fluid. Bones: Bones are diffusely osteopenic. Multiple compression fracture deformities of several vertebra noted including lower thoracic vertebra and L1. There is narrowing of intervertebral discs and accompanying endplate osteophyte formation. Hypertrophied facet joints also demonstrated. Scoliosis of the lower thoracic spine convex to the right and left convex lumbar scoliosis noted. IMPRESSION: No acute findings appreciated. Study limited by the lack of intravenous oral contrast as well as extensive motion artifact. 1.6 cm probable cystic lesion in the pancreatic tail. This requires further evaluation with the contrast CT or MR. Status post previous partial bowel resection. 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 Degenerative changes as described above. (4) Rhabdomyolysis (5) KAREN (acute kidney injury) (6) Decubitus skin ulcer Assessment & Plan: Pt presented on admission with multiple pressure injuries. Pt's niece Sarah stated pt lives alone and found pt laying on her R side on floor in patient's home.Niece believes pt has been laying on floor for approx 5 days. DTPI noted to R cheek. Base of wound is purple with marginal erythema along borders.(L)1.2cm x (W)1.6cm. Unstageable pressure injury R shoulder. Base of wound is 100% necrotic with marginal erythema along borders.(L)4.8cm x (W).3.5cm . DTPI R humerus. Base of wound is fluctuant and maroon in colour with surrounding erythema. (L)10.6cm x (W)3.1cm. DTPI R elbow.Base of wound is indurated with scattered areas that are purple in colour. An area of fluctuance in center. Marginal erythema along borders.(L) 5.3cm x (W)10.4cm. Partially opened Sacral DTPI. Base of wound is purple with surrounding erythema. Partial open wound marco a cleft that is corby and moist.(L)5.3cm x (W) 4.5cm.NO odor or exudate noted. Non-blanching erythema periwound. DTPI L ischium . Base of wound is purple and indurated.(L)6cm x (W)7.5cm. Unstageable pressure injury R hip. Base of wound is 75% necrotic, 25% mixed erythema and slough. Borders are moist,soft with scattered areas that are black. Periwound is dusky and indurated.No odor or exudate noted. DTPI at posterior and medial aspect of L heel. Base of wound is maroon and fluctuant(L)4cm x (W)7cm. Unstageable pressure injury L Hallux. Base of wound is 100% necrotic but soft. Borders are erythematous. Periwound without induration or fluctuance.(L)2.5cm x (W)3cm. DTPI medial L malleolus. Base of wound fluctuant and maroon in colour.(L) 0.3cm x (W)1.2cm. DTPI medial L malleolus. Base of wound fluctuant and maroon in colour with Marginal erythema along borders.(L)0.3cm x (W)1.2cm. Intact blood filled blisters noted to L 1st Metatarsal laterally and head of metatarsal. Intact blood filled blisters noted to heads of L 2nd and L 3rd metatarsals. DTPI noted to posterior and lateral R Heel. Posterior R heel is maroon in colour and fluctuant at base. Laterally ,R heel is black and fluctuant at base.Periwound is boggy and non-blanchable.(L)7cm x (W)8cm. Unstageable pressure injury lateral R malleolus. Base of wound is 100% necrotic and dry.Marginal erythema along borders.Periwound is fluctuant and erythematous( L)1.2cm x (W)1.5cm. DTPI distal/lateral R foot. Base of wound is fluctuant and maroon in colour.(L) 1.3cm x (W)1.7cm. DTPI lateral R 5th metatarsal. Base of wound is maroon and fluctuant with marginal erythema along borders .(L)0.7cm x (W)1.1cm Tx.Plan: Cleanse Wound R shoulder with Saline. Apply Therahoney. Apply Cavilon Skin barrier periwound. Cover with Optifoam drsg every 3 days and prn. Cleanse R hip wound with Saline. Apply Therahoney with 4x4 Gauze. Apply Moisture Barrier Paste periwound.Cover with Optifoam drsg. Daily and prn. Apply Moisture Barrier Paste to Sacral wound and L Ischium. Cover each wound with Optifoam drsg every 3 days and prn. Apply Betadine to R humerus and R elbow . Cover each wound with Optifoam drsg. Change every 3 days and prn. Apply Betadine to wounds R heel, R malleolus and R foot . Cover each wound with Optifoam drsg every 3 days and prn. Apply Betadine to wounds L heel ,L medial malleolus and L foot. Cover each wound with Optifoam drsgs every 3 Days and prn. Air Fluidized Mattress. Reposition at least every 2hours or as tolerated. Place Pillow between knees. Off-load heels with pillow. Anshul Nava Jul 08, 2019 15:49
--- NOTE | 2019-07-08 15:49 | General Progress Note ---
Assessment/Plan Problem List: (1) Fall ICD Codes: W19.XXXA - Unspecified fall, initial encounter SNOMED: 4250882, 193834004 (2) Altered level of consciousness ICD Codes: R40.4 - Transient alteration of awareness SNOMED: 0562634 (3) Fracture of lumbar spine ICD Codes: S32.009A - Unspecified fracture of unspecified lumbar vertebra, initial encounter for closed fracture SNOMED: 219536483 (4) Rhabdomyolysis ICD Codes: M62.82 - Rhabdomyolysis SNOMED: 966854205 (5) KAREN (acute kidney injury) ICD Codes: N17.9 - Acute kidney failure, unspecified SNOMED: 4857334, 14871349 Status: doing well, stable Assessment/Plan: #Rhabdomyolosis #KAREN #Acute renal failure - on HD UF #Uremic encephalopathy #Anion gap metabolic acidosis #Lactic acidosis -resolved -Nephrology following for HD -Permcath placement today by IR. -Will need outpatient HD set-up -Will need SNF placement afterwards. (Case management made aware; Guardian) #Left lung PNA - likely aspiration #Acute hypoxic respiratory failure s/p BiPAP - improved #Strep Viridans bacteremia #Worsening Leukocytosis #loose stools Noted to be acutely hypoxic on early AM of 06/25 -s/p BiPAP -> NC/room air intermittently -CT chest, CXR with left lung infiltrate. -ABG prn. -Pulmonology following -echo negative for vegetations -CXR 06/28: Bilateral interstitial thickening and patchy airspace opacities in the left lung, similar to prior study given differences in technique. -ID following - s/p zyvox/meropenem. d/w ID, no need to continue. -Stool C. diff negative,oral vanco stopped #Hematuria -Urology consulted. -Irrigate hargrove. -Monitor CBC. #Dysphagia -s/p PEG -Continue TF #L1 vertebral fracture - likely old seen on imaging, likely old. -reassurance provided to family. #Transaminitis #Acute pancreatitis ?from dehydration, abd exam benign. -continue to trend LFT's, numbers improving -GI following #Type 2 NSTEMI likely demand in setting of renal failure. EKG wnl. -no need to trend. -cardiology consulted - pt will need stress test prior to d/c #Pressure wounds. -General surgery consulted for wound care, central line insertion on 06/24 -Cont. wound care and offloading Time spent: 37 mins, >50% on counseling and coordination of care. Time of note doesn't reflect time of encounter. Subjective Date patient seen: Jul 08, 2019 ROS Limited/Unobtainable: Yes - encephalopathic, unable to provide ROS Allergies: Coded Allergies: No Known Allergies (Unverified , 06/24/19) Subjective resting in bed, getting HD. Response "hmm?" when called. Unable to follow commands. Objective Last 24 Hour Vital Signs Date Time Temp Pulse Resp B/P (MAP) Pulse Ox O2 Delivery O2 Flow Rate FiO2 07/08/19 12:00 98.2 114 23 90/68 (75) 98 07/08/19 09:00 Nasal Cannula 2.0 Nasal Cannula 2.0 07/08/19 07:42 98 Nasal Cannula 2.0 28 07/08/19 07:41 104 20 98 Nasal Cannula 2.0 28 07/08/19 04:00 97.8 118 23 136/69 (91) 97 07/08/19 00:00 97.8 115 22 128/80 (96) 98 07/07/19 21:00 Nasal Cannula 2.0 Nasal Cannula 2.0 07/07/19 20:00 98.5 119 23 123/59 (80) 100 07/07/19 16:00 98.1 120 21 93/56 (68) 100 Intake and Output 07/07/19 07/08/19 19:00 07:00 Intake Total 920 ml 940 ml Balance 920 ml 940 ml Free Water 180 ml 200 ml IV Total 300 ml 300 ml Tube Feeding 440 ml 440 ml # Bowel Movements 1 2 Laboratory Tests 07/08/19 05:10: Sodium Level 142, Potassium Level 3.9, Chloride Level 103, Carbon Dioxide Level 23, Anion Gap 17H, Blood Urea Nitrogen 99H, Creatinine 4.9H, Estimat Glomerular Filtration Rate 10.2, Glucose Level 127H, Calcium Level 9.3, Total Bilirubin 0.6 , Direct Bilirubin 0.2, Aspartate Amino Transf (AST/SGOT) 43H, Alanine Aminotransferase (ALT/SGPT) 43, Alkaline Phosphatase 74, Total Protein 5.4L, Albumin 2.9L, Globulin 2.9, Albumin/Globulin Ratio 1.0 Height (Feet): 5 Height (Inches): 3.00 Weight (Pounds): 116 General Appearance: no apparent distress Neck: supple Cardiovascular: normal rate, regular rhythm Respiratory/Chest: lungs clear, normal breath sounds Abdomen: non tender, soft René Rollins M.D. Jul 08, 2019 15:49
[2019-07-08 16:00] VITALS: BP 121/64
[2019-07-08 20:00] VITALS: BP 134/74
[2019-07-08] MEDS: Dyna-Hex 2% Top Sol 2oz TOPIC SCH (20:25)
[2019-07-08] MEDS: Epoetin Alfa-EPBX(ESRD on dialysis)3000 units/ml vial SUBQ SCH (20:25)
[2019-07-09] VITALS (13 sets, daily range): BP systolic 115–158; BP diastolic 58–78
--- NOTE | 2019-07-09 03:45 | Progress Note ---
DATE: 07/08/2019 SUBJECTIVE: The patient is in bed, arousable, confused. Remains disoriented and needs frequent redirection throughout the day. The patient still has episodes of yelling and getting agitated easily. MENTAL STATUS EXAMINATION: The patient is awake, disoriented. Mood is anxious. Affect is flat. Thought process, there is paucity of thought content. Thought content, no suicidal or homicidal ideation. Cognition is impaired. Insight and judgment impaired. ASSESSMENT: 1. Acute encephalopathy. 2. Anxiety disorder. PLAN: We will continue Neurontin per family's request that is going to help with anxiety and neuropathy pain. Jaime Jackson M.D. DR: MILAGROS JOB#: [id number] CC:
--- NOTE | 2019-07-09 06:53 | Hematology/Onc Progress Note ---
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 Otherwise unremarkable pancreas --> as per gi, may need further eval with endsocopy --> with pancreatitis at this time, may be obscuring picture --> reimage in short order, 6 months --> ca19.9 60 but may be elevated due to pancreatitis --> cea of 10 # Leukocytosis/elevated white blood cell count, unspecified likely related to underlying stress reaction, smoking v more likely infection in this case, bacteremia --> have reviewed peripheral smear and bandemia/neutrophilia noted --> continue antibiotics if they have been started by ID team --> monitor for resolution --> as per id care, on broad spectrum abx --> wbc 30-->21-->18.7 -->5 --> abx: bethany/linezolid --> bethany/fuc # Anemia of chronic disease due to underlying chronic medical issues, multifactorial v Gi bleed --> Anemia workup has been reviewed, ferritin 1300 --> No evidence of hemolysis is noted, peripheral smear has been reviewed. --> Hgb goal >7. Transfuse prn. --> Epogen has been started --> Medications have been reviewed --> hgb 8.7-->7.4 --> low threshold for gi evaluation in case has occult + --> bone marrow biopsy is not indicated given the other more likely causes # Thrombocytopenia - potential causes multifactorial, evaluate liver and viral etiologies to begin, in this case due to sepsisand pancreatitis --> Hep panel and HIV are both negative --> US abd to evaluate for cirrhosis and hsm --> pleural effusions noted, hsm is neg --> Peripheral smear ordered to evaluate for blasts /schistocytes --> abx and other meds have been reviewed --> ok for ppx if plt >50k w/ either heparin or lovenox # Acute renal failure - on HD UF --> hd with fem left omari ==> per renal hd # 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 Greatly appreciate consultation. Subjective Constitutional: Denies: no symptoms, chills, fever, malaise, weakness, other HEENT: Denies: no symptoms, eye pain, blurred vision, tearing, double vision, ear pain, ear discharge, nose pain, nose congestion, throat pain, throat swelling, mouth pain, mouth swelling, other Cardiovascular: Denies: no symptoms, chest pain, edema, irregular heart rate, lightheadedness, palpitations, syncope, other Respiratory: Denies: no symptoms, cough, shortness of breath, SOB with excertion, SOB at rest, sputum, wheezing, other Gastrointestinal/Abdominal: Denies: no symptoms, abdomen distended, abdominal pain, black stools, tarry stools, blood in stool, constipated, diarrhea, difficulty swallowing, nausea, poor appetite, poor fluid intake, rectal bleeding , vomiting, other Genitourinary: Denies: no symptoms, burning, discharge, frequency, flank pain, hematuria, incontinence, pain, urgency, other Neurologic/Psychiatric: Denies: no symptoms, anxiety, depressed, emotional problems, headache, numbness, paresthesia, pre-existing deficit, seizure, tingling, tremors, weakness, other Endocrine: Denies: no symptoms, excessive sweating, flushing, intolerance to cold, intolerance to heat, increased hunger, increased thirst, increased urine, unexplained weight gain, unexplained weight loss, other Allergies: Coded Allergies: No Known Allergies (Unverified , 06/24/19) Subjective 07/02: resting in bed, appears to be comfortable, no bleeding, on merop, no events 07/03: is crying with ng tube, no bleeding, labs noted, no night swaets, lytes to be replted 07/04: hgb 8.2, hd for today, hep and hiv negative, nc, on behtany 07/05 to get hd for monday, no bleeding, labs reported, dw pcp, peg working 07/06 labs pending, afebrile, no sob, on abx 07/08 no major changes, hd done yesterday, no bleeding or night sweats Objective Objective Current Medications Medications (Trade) Dose Ordered Sig/Joan Route PRN Reason Start Time Stop Time Status Last Admin Dose Admin Acetaminophen (Tylenol) 650 mg Q4H PRN NG Mild Pain/Temp > 100.5 07/04/19 20:30 08/01/19 12:29 Acetylcysteine (Mucomyst) 100 mg Q4H PRN HHN Shortness of Breath 07/04/19 18:00 08/03/19 17:59 Albumin Human 100 ml @ 100 mls/hr NEEDED PRN IV DIALYSIS 07/04/19 19:00 08/03/19 18:59 07/06/19 01:30 Chlorhexidine Gluconate (Cari-Hex 2%) 1 applic DAILY@1999 TOPIC 07/04/19 20:00 07/26/19 19:59 07/08/19 20:25 Dextrose (Dextrose 50%) 25 ml Q30M PRN IV Hypoglycemia 07/04/19 20:00 07/24/19 19:51 Dextrose (Dextrose 50%) 50 ml Q30M PRN IV Hypoglycemia 07/04/19 20:00 07/24/19 19:51 Diphenhydramine HCl (Benadryl) 25 mg Q6H PRN ORAL Itching/Pruritis 07/04/19 20:00 07/24/19 19:51 Epoetin Dion (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)) 6,000 unit MON-MON-MON SUBQ 07/08/19 21:00 08/07/19 20:59 07/08/19 20:25 Fluconazole (Diflucan) 100 mg DAILY ORAL 07/08/19 09:00 07/12/19 08:59 07/08/19 11:13 Furosemide (Lasix) 40 mg DAILY IV 07/05/19 09:00 07/30/19 19:59 07/08/19 11:12 Gabapentin (Neurontin) 300 mg BID GT 07/05/19 09:00 08/01/19 17:59 07/08/19 19:05 Haloperidol Lactate (Haldol) 5 mg Q6H PRN IM Agitation 07/06/19 01:45 08/20/19 01:44 Hydromorphone HCl (Dilaudid) 0.5 mg Q2H PRN IVP Severe Pain (Pain Scale 7-10) 07/04/19 20:30 07/09/19 12:29 07/07/19 13:13 Meropenem 500 mg/ Sodium Chloride 50 ml @ 100 mls/hr Q24HRS IVPB 07/07/19 17:30 07/10/19 17:29 07/08/19 19:05 Ondansetron HCl (Zofran) 4 mg Q4H PRN IVP Nausea & Vomiting 07/04/19 20:00 08/02/19 19:59 Pantoprazole (Protonix) 40 mg DAILY IVP 07/05/19 09:00 07/30/19 08:59 07/08/19 11:13 Last 24 Hour Vital Signs Date Time Temp Pulse Resp B/P (MAP) Pulse Ox O2 Delivery O2 Flow Rate FiO2 07/09/19 04:00 97.2 100 19 115/65 (82) 98 07/09/19 00:00 97.9 100 21 139/78 (98) 94 07/08/19 21:13 Nasal Cannula 2.0 Nasal Cannula 2.0 07/08/19 20:00 98.2 98 21 134/74 (94) 100 07/08/19 19:58 98 20 100 Nasal Cannula 2.0 28 07/08/19 19:58 100 Nasal Cannula 2.0 28 07/08/19 16:00 98.7 104 20 121/64 (83) 100 07/08/19 12:00 98.2 114 23 90/68 (75) 98 07/08/19 09:00 Nasal Cannula 2.0 Nasal Cannula 2.0 07/08/19 07:42 98 Nasal Cannula 2.0 28 07/08/19 07:41 104 20 98 Nasal Cannula 2.0 28 07/08/19 04:00 97.8 118 23 136/69 (91) 97 07/08/19 00:00 97.8 115 22 128/80 (96) 98 07/07/19 21:00 Nasal Cannula 2.0 Nasal Cannula 2.0 07/07/19 20:00 98.5 119 23 123/59 (80) 100 07/07/19 16:00 98.1 120 21 93/56 (68) 100 07/07/19 13:43 98.6 07/07/19 12:30 114 07/07/19 12:00 98.6 122 18 128/72 (90) 99 07/07/19 09:00 Nasal Cannula 2.0 Nasal Cannula 2.0 07/07/19 08:21 98 Nasal Cannula 2.0 28 07/07/19 08:21 104 20 98 Nasal Cannula 2.0 28 07/07/19 08:00 98.6 109 20 109/55 (73) 100 Intake and Output 07/08/19 07/09/19 19:00 07:00 Intake Total 100 ml 420 ml Output Total 100 ml Balance 0 ml 420 ml Free Water 60 ml 100 ml Tube Feeding 40 ml 320 ml Output Urine Total 100 ml Hemodialysis UF 0 ml Labs Test 07/08/19 05:10 Sodium Level 142 MMOL/L (136-145) Potassium Level 3.9 MMOL/L (3.5-5.1) Chloride Level 103 MMOL/L (98-107) Carbon Dioxide Level 23 MMOL/L (21-32) Anion Gap 17 mmol/L (5-15) Blood Urea Nitrogen 99 mg/dL (7-18) Creatinine 4.9 MG/DL (0.55-1.30) Estimat Glomerular Filtration Rate 10.2 mL/min (>60) Glucose Level 127 MG/DL (74-106) Calcium Level 9.3 MG/DL (8.5-10.1) Total Bilirubin 0.6 MG/DL (0.2-1.0) Direct Bilirubin 0.2 MG/DL (0.0-0.3) Aspartate Amino Transf (AST/SGOT) 43 U/L (15-37) Alanine Aminotransferase (ALT/SGPT) 43 U/L (12-78) Alkaline Phosphatase 74 U/L (46-116) Total Protein 5.4 G/DL (6.4-8.2) Albumin 2.9 G/DL (3.4-5.0) Globulin 2.9 g/dL Albumin/Globulin Ratio 1.0 (1.0-2.7) Height (Feet): 5 Height (Inches): 3.00 Weight (Pounds): 116 Objective Physical Exam: Vitals: reviewed General: NAD, groans to pain stimuli HEENT: nc, at Neck: supple Chest: clear breath sounds bilaterally Cardiovascular: RRR, no s3, s4 Abdomen: soft, nontender, nd++ peg Extremities: no cce, normal range of motion Neuro: alert and oriented Skin: other - pressure sores to right side Bola Aldridge MD Jul 09, 2019 06:53
[2019-07-09 08:08] LABS: HEMATOCRIT 19.4 % (37.0-47.0); MEAN CORPUSCULAR VOLUME 92 FL (80-99); PLATELET COUNT 329 K/UL (150-450); RED BLOOD COUNT 2.12 M/UL (4.20-5.40); RED CELL DISTRIBUTION WIDTH 14.4 % (11.6-14.8); WHITE BLOOD COUNT 10.6 K/UL (4.8-10.8)
[2019-07-09 08:26] LABS: HEMOGLOBIN 6.3 G/DL (12.0-16.0)
--- NOTE | 2019-07-09 08:46 | General Progress Note ---
Assessment/Plan Problem List: (1) KAREN (acute kidney injury) ICD Codes: N17.9 - Acute kidney failure, unspecified SNOMED: 5894441, 50677262 (2) Altered level of consciousness ICD Codes: R40.4 - Transient alteration of awareness SNOMED: 6993077 Status: doing well, stable Assessment/Plan: dysphagia elevated LFTS pancreatitis based on elevated lipase fatty liver ESRD pancreatic cyst anemia stool ob positive GTF repeat labs abx per ID CT reviewed improving LFTS, wbc and lipase abx per ID HD per nephrology agree with blood transfusion Subjective ROS Limited/Unobtainable: No Allergies: Coded Allergies: No Known Allergies (Unverified , 06/24/19) Objective Last 24 Hour Vital Signs Date Time Temp Pulse Resp B/P (MAP) Pulse Ox O2 Delivery O2 Flow Rate FiO2 07/09/19 08:00 98.1 112 19 136/72 (93) 97 07/09/19 07:20 100 Nasal Cannula 2.0 28 07/09/19 07:20 106 20 100 Nasal Cannula 2.0 28 07/09/19 04:00 97.2 100 19 115/65 (82) 98 07/09/19 00:00 97.9 100 21 139/78 (98) 94 07/08/19 21:13 Nasal Cannula 2.0 Nasal Cannula 2.0 07/08/19 20:00 98.2 98 21 134/74 (94) 100 07/08/19 19:58 98 20 100 Nasal Cannula 2.0 28 07/08/19 19:58 100 Nasal Cannula 2.0 28 07/08/19 16:00 98.7 104 20 121/64 (83) 100 07/08/19 12:00 98.2 114 23 90/68 (75) 98 07/08/19 09:00 Nasal Cannula 2.0 Nasal Cannula 2.0 Intake and Output 07/08/19 07/09/19 19:00 07:00 Intake Total 100 ml 420 ml Output Total 100 ml Balance 0 ml 420 ml Free Water 60 ml 100 ml Tube Feeding 40 ml 320 ml Output Urine Total 100 ml Hemodialysis UF 0 ml Laboratory Tests 07/09/19 07:52: White Blood Count 10.6, Red Blood Count 2.12L, Hemoglobin 6.3*L, Hematocrit 19.4L, Mean Corpuscular Volume 92, Mean Corpuscular Hemoglobin 29.6, Mean Corpuscular Hemoglobin Concent 32.3, Red Cell Distribution Width 14.4, Platelet Count 329, Mean Platelet Volume 6.7, Neutrophils (%) (Auto) , Lymphocytes (%) ( Auto) , Monocytes (%) (Auto) , Eosinophils (%) (Auto) , Basophils (%) (Auto) , Neutrophils % (Manual) [Pending], Lymphocytes % (Manual) [Pending], Platelet Estimate [Pending], Platelet Morphology [Pending], Sodium Level [Pending], Potassium Level [Pending], Chloride Level [Pending], Carbon Dioxide Level [ Pending], Blood Urea Nitrogen [Pending], Creatinine [Pending], Estimat Glomerular Filtration Rate [Pending], Glucose Level [Pending], Calcium Level [ Pending], Total Bilirubin [Pending], Aspartate Amino Transf (AST/SGOT) [Pending] , Alanine Aminotransferase (ALT/SGPT) [Pending], Alkaline Phosphatase [Pending] , Total Protein [Pending], Albumin [Pending], Globulin [Pending] Height (Feet): 5 Height (Inches): 3.00 Weight (Pounds): 116 General Appearance: no apparent distress EENT: normal ENT inspection Neck: supple Cardiovascular: normal rate Respiratory/Chest: decreased breath sounds Abdomen: normal bowel sounds, non tender, soft Extremities: non-tender Jun Mena MD Jul 09, 2019 08:46
[2019-07-09 08:47] LABS: ALANINE AMINOTRANSFERASE 37 U/L (12-78); ALBUMIN 3.6 G/DL (3.4-5.0); ALBUMIN/GLOBULIN RATIO 1.2 (1.0-2.7); ALKALINE PHOSPHATASE 75 U/L (46-116); ANION GAP 13 mmol/L (5-15); ASPARTATE AMINO TRANSFERASE 36 U/L (15-37); BILIRUBIN,TOTAL 0.8 MG/DL (0.2-1.0); BLOOD UREA NITROGEN 70 mg/dL (7-18); CALCIUM 9.8 MG/DL (8.5-10.1); CARBON DIOXIDE 25 MMOL/L (21-32); CHLORIDE 106 MMOL/L (98-107); CREATININE 3.4 MG/DL (0.55-1.30); POTASSIUM 3.8 MMOL/L (3.5-5.1); SODIUM 144 MMOL/L (136-145)
--- NOTE | 2019-07-09 09:02 | Urology Progress Note ---
Assessment/Plan Status: doing well, stable Assessment/Plan: 1. Gross hematuria. 2. End-stage renal disease. 3. Urinary retention. 4. Possible neurogenic bladder. 5. Urinary tract infection and colonization. 6. Proteinuria. 7. Acute kidney injury history. monitor clinically hargrove hand irrigated and do PRN abx as ordered, diflucan added HD per nephrology cysto later d/w nursing staff Subjective Allergies: Coded Allergies: No Known Allergies (Unverified , 06/24/19) Subjective all noted, looks comfortable Objective Last 24 Hour Vital Signs Date Time Temp Pulse Resp B/P (MAP) Pulse Ox O2 Delivery O2 Flow Rate FiO2 07/09/19 08:00 98.1 112 19 136/72 (93) 97 07/09/19 07:20 100 Nasal Cannula 2.0 28 07/09/19 07:20 106 20 100 Nasal Cannula 2.0 28 07/09/19 04:00 97.2 100 19 115/65 (82) 98 07/09/19 00:00 97.9 100 21 139/78 (98) 94 07/08/19 21:13 Nasal Cannula 2.0 Nasal Cannula 2.0 07/08/19 20:00 98.2 98 21 134/74 (94) 100 07/08/19 19:58 98 20 100 Nasal Cannula 2.0 28 07/08/19 19:58 100 Nasal Cannula 2.0 28 07/08/19 16:00 98.7 104 20 121/64 (83) 100 07/08/19 12:00 98.2 114 23 90/68 (75) 98 Intake and Output 07/08/19 07/09/19 19:00 07:00 Intake Total 100 ml 420 ml Output Total 100 ml Balance 0 ml 420 ml Free Water 60 ml 100 ml Tube Feeding 40 ml 320 ml Output Urine Total 100 ml Hemodialysis UF 0 ml Microbiology Date/Time Source Procedure Growth Status 06/29/19 14:25 Blood Blood Culture - Final NO GROWTH AFTER 5 DAYS Complete 06/30/19 18:00 Stool Clostridium difficile Toxin Assay - Final Complete 07/04/19 18:29 Urine,Clean Catch Urine Culture - Final Melnaie Albicans Complete Current Medications Medications (Trade) Dose Ordered Sig/Joan Route PRN Reason Start Time Stop Time Status Last Admin Dose Admin Acetaminophen (Tylenol) 650 mg Q4H PRN NG Mild Pain/Temp > 100.5 07/04/19 20:30 08/01/19 12:29 Acetylcysteine (Mucomyst) 100 mg Q4H PRN HHN Shortness of Breath 07/04/19 18:00 08/03/19 17:59 Albumin Human 100 ml @ 100 mls/hr NEEDED PRN IV DIALYSIS 07/04/19 19:00 08/03/19 18:59 07/06/19 01:30 Chlorhexidine Gluconate (Cari-Hex 2%) 1 applic DAILY@2000 TOPIC 07/04/19 20:00 07/26/19 19:59 07/08/19 20:25 Dextrose (Dextrose 50%) 25 ml Q30M PRN IV Hypoglycemia 07/04/19 20:00 07/24/19 19:51 Dextrose (Dextrose 50%) 50 ml Q30M PRN IV Hypoglycemia 07/04/19 20:00 07/24/19 19:51 Diphenhydramine HCl (Benadryl) 25 mg Q6H PRN ORAL Itching/Pruritis 07/04/19 20:00 07/24/19 19:51 Epoetin Dion (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)) 6,000 unit MON-MON-MON SUBQ 07/08/19 21:00 08/07/19 20:59 07/08/19 20:25 Fluconazole (Diflucan) 100 mg DAILY ORAL 07/08/19 09:00 07/12/19 08:59 07/08/19 11:13 Furosemide (Lasix) 40 mg DAILY IV 07/05/19 09:00 07/30/19 19:59 07/08/19 11:12 Gabapentin (Neurontin) 300 mg BID GT 07/05/19 09:00 08/01/19 17:59 07/08/19 19:05 Haloperidol Lactate (Haldol) 5 mg Q6H PRN IM Agitation 07/06/19 01:45 08/20/19 01:44 Hydromorphone HCl (Dilaudid) 0.5 mg Q2H PRN IVP Severe Pain (Pain Scale 7-10) 07/04/19 20:30 07/09/19 12:29 07/07/19 13:13 Meropenem 500 mg/ Sodium Chloride 50 ml @ 100 mls/hr Q24HRS IVPB 07/07/19 17:30 07/10/19 17:29 07/08/19 19:05 Ondansetron HCl (Zofran) 4 mg Q4H PRN IVP Nausea & Vomiting 07/04/19 20:00 08/02/19 19:59 Pantoprazole (Protonix) 40 mg DAILY IVP 07/05/19 09:00 07/30/19 08:59 07/08/19 11:13 Laboratory Tests 07/09/19 07:52: White Blood Count 10.6, Red Blood Count 2.12L, Hemoglobin 6.3*L, Hematocrit 19.4L, Mean Corpuscular Volume 92, Mean Corpuscular Hemoglobin 29.6, Mean Corpuscular Hemoglobin Concent 32.3, Red Cell Distribution Width 14.4, Platelet Count 329, Mean Platelet Volume 6.7, Neutrophils (%) (Auto) , Lymphocytes (%) ( Auto) , Monocytes (%) (Auto) , Eosinophils (%) (Auto) , Basophils (%) (Auto) , Neutrophils % (Manual) [Pending], Lymphocytes % (Manual) [Pending], Platelet Estimate [Pending], Platelet Morphology [Pending], Sodium Level 144, Potassium Level 3.8, Chloride Level 106, Carbon Dioxide Level 25, Anion Gap 13, Blood Urea Nitrogen 70H, Creatinine 3.4H, Estimat Glomerular Filtration Rate 15.5, Glucose Level 128H, Calcium Level 9.8, Total Bilirubin 0.8, Aspartate Amino Transf (AST/SGOT) 36, Alanine Aminotransferase (ALT/SGPT) 37, Alkaline Phosphatase 75, Total Protein 6.5, Albumin 3.6, Globulin 2.9, Albumin/Globulin Ratio 1.2 Height (Feet): 5 Height (Inches): 3.00 Weight (Pounds): 116 Objective exam stable hargrove indwelling urine blood-tinged/neal Bamshad,Omar Tillman MD Jul 09, 2019 09:02
--- NOTE | 2019-07-09 09:20 | Cardiology Progress Note ---
Assessment/Plan Status: stable Assessment/Plan Assessment/Plan Status: stable Assessment/Plan: Assessment Elevated troponin Syncope. Elevated LFT KAREN/CKD Rhabdomyolysis Plan Transfuse PRBC d/c Trend troponin Monitor on telemetry Echocardiogram reviewed no vegetation Stress test prior to discharge Hold heparin re: hematuria PEG tube placement continue tube feeds Maintain HD Abx per ID/pulm Pulmonary toilet Supportive care Dispo SNF Subjective Cardiovascular: Reports: no symptoms Respiratory: Reports: no symptoms Gastrointestinal/Abdominal: Reports: no symptoms Subjective No acute events, s/p PEG tube, tolerated HD, no distress,no bleeding no fevers. Awaiting perm cath and SNF placement Creatinine improved slightly, HgB low, needs transfusion Objective Last 24 Hour Vital Signs Date Time Temp Pulse Resp B/P (MAP) Pulse Ox O2 Delivery O2 Flow Rate FiO2 07/09/19 08:00 98.1 112 19 136/72 (93) 97 07/09/19 07:20 100 Nasal Cannula 2.0 28 07/09/19 07:20 106 20 100 Nasal Cannula 2.0 28 07/09/19 04:00 97.2 100 19 115/65 (82) 98 07/09/19 00:00 97.9 100 21 139/78 (98) 94 07/08/19 21:13 Nasal Cannula 2.0 Nasal Cannula 2.0 07/08/19 20:00 98.2 98 21 134/74 (94) 100 07/08/19 19:58 98 20 100 Nasal Cannula 2.0 28 07/08/19 19:58 100 Nasal Cannula 2.0 28 07/08/19 16:00 98.7 104 20 121/64 (83) 100 07/08/19 12:00 98.2 114 23 90/68 (75) 98 General Appearance: no apparent distress, alert EENT: PERRL/EOMI, normal ENT inspection, TMs normal, pharynx normal Neck: non-tender, normal alignment, supple, normal inspection, no JVD Rhythm: NSR, SB Cardiovascular: normal peripheral pulses, normal rate, regular rhythm, regularly irregular, no gallop/murmur Respiratory/Chest: chest wall non-tender, lungs clear, normal breath sounds, no respiratory distress, no accessory muscle use, respiratory distress Abdomen: normal bowel sounds, non tender, soft, no organomegaly, no mass Extremities: normal range of motion, non-tender, normal inspection, no calf tenderness, no swelling Neurologic: steam flattener 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 normal, no motor/sensory deficits Intake and Output 07/08/19 07/09/19 19:00 07:00 Intake Total 100 ml 420 ml Output Total 100 ml Balance 0 ml 420 ml Free Water 60 ml 100 ml Tube Feeding 40 ml 320 ml Output Urine Total 100 ml Hemodialysis UF 0 ml Laboratory Tests Test 07/09/19 07:52 White Blood Count 10.6 K/UL (4.8-10.8) Red Blood Count 2.12 M/UL (4.20-5.40) L Hemoglobin 6.3 G/DL (12.0-16.0) *L Hematocrit 19.4 % (37.0-47.0) L Mean Corpuscular Volume 92 FL (80-99) Mean Corpuscular Hemoglobin 29.6 PG (27.0-31.0) Mean Corpuscular Hemoglobin Concent 32.3 G/DL (32.0-36.0) Red Cell Distribution Width 14.4 % (11.6-14.8) Platelet Count 329 K/UL (150-450) Mean Platelet Volume 6.7 FL (6.5-10.1) Neutrophils (%) (Auto) % (45.0-75.0) Lymphocytes (%) (Auto) % (20.0-45.0) Monocytes (%) (Auto) % (1.0-10.0) Eosinophils (%) (Auto) % (0.0-3.0) Basophils (%) (Auto) % (0.0-2.0) Differential Total Cells Counted 100 Neutrophils % (Manual) 85 % (45-75) H Lymphocytes % (Manual) 9 % (20-45) L Monocytes % (Manual) 5 % (1-10) Eosinophils % (Manual) 1 % (0-3) Basophils % (Manual) 0 % (0-2) Band Neutrophils 0 % (0-8) Platelet Estimate Adequate Platelet Morphology Normal Hypochromasia 1+ Sodium Level 144 MMOL/L (136-145) Potassium Level 3.8 MMOL/L (3.5-5.1) Chloride Level 106 MMOL/L (98-107) Carbon Dioxide Level 25 MMOL/L (21-32) Anion Gap 13 mmol/L (5-15) Blood Urea Nitrogen 70 mg/dL (7-18) H Creatinine 3.4 MG/DL (0.55-1.30) H Estimat Glomerular Filtration Rate 15.5 mL/min (>60) Glucose Level 128 MG/DL (74-106) H Calcium Level 9.8 MG/DL (8.5-10.1) Total Bilirubin 0.8 MG/DL (0.2-1.0) Aspartate Amino Transf (AST/SGOT) 36 U/L (15-37) Alanine Aminotransferase (ALT/SGPT) 37 U/L (12-78) Alkaline Phosphatase 75 U/L (46-116) Total Protein 6.5 G/DL (6.4-8.2) Albumin 3.6 G/DL (3.4-5.0) Globulin 2.9 g/dL Albumin/Globulin Ratio 1.2 (1.0-2.7) Melchor Cerna MD Jul 09, 2019 09:20
[2019-07-09] MEDS: Fluconazole 100mg tab ORAL SCH (09:42)
[2019-07-09] MEDS: Gabapentin 300 MG/6 ML Soln GT SCH ×2 (09:43→18:59)
[2019-07-09] MEDS: Pantoprazole Inj IVP SCH (09:43)
--- NOTE | 2019-07-09 10:08 | Pulmonology Progress Note ---
Assessment/Plan Assessment/Plan IMPRESSION: 1. Extensive left lung pneumonia. Latest CXR shows significant clearing 2. Pulmonary edema. 3. Respiratory failure; now off BiPAP DISCUSSION: Continue antibiotics per ID Dialysis per renal Use BiPAP prn. Supplemental O2. I will continue to follow carefully. Abrahan Samaniego M.D. Subjective Interval Events: Comfortable; no new problems Constitutional: Reports: no symptoms HEENT: Repors: no symptoms Respiratory: Reports: no symptoms Cardiovascular: Reports: no symptoms Gastrointestinal/Abdominal: Reports: no symptoms Allergies: Coded Allergies: No Known Allergies (Unverified , 06/24/19) Objective Last 24 Hour Vital Signs Date Time Temp Pulse Resp B/P (MAP) Pulse Ox O2 Delivery O2 Flow Rate FiO2 07/09/19 08:00 98.1 112 19 136/72 (93) 97 07/09/19 07:20 100 Nasal Cannula 2.0 28 07/09/19 07:20 106 20 100 Nasal Cannula 2.0 28 07/09/19 04:00 97.2 100 19 115/65 (82) 98 07/09/19 00:00 97.9 100 21 139/78 (98) 94 07/08/19 21:13 Nasal Cannula 2.0 Nasal Cannula 2.0 07/08/19 20:00 98.2 98 21 134/74 (94) 100 07/08/19 19:58 98 20 100 Nasal Cannula 2.0 28 07/08/19 19:58 100 Nasal Cannula 2.0 28 07/08/19 16:00 98.7 104 20 121/64 (83) 100 07/08/19 12:00 98.2 114 23 90/68 (75) 98 Intake and Output 07/08/19 07/09/19 19:00 07:00 Intake Total 100 ml 420 ml Output Total 100 ml Balance 0 ml 420 ml Free Water 60 ml 100 ml Tube Feeding 40 ml 320 ml Output Urine Total 100 ml Hemodialysis UF 0 ml General Appearance: no acute distress HEENT: normocephalic Respiratory/Chest: chest wall non-tender Cardiovascular: normal peripheral pulses Abdomen: normal bowel sounds Laboratory Tests 07/09/19 07:52: White Blood Count 10.6, Red Blood Count 2.12L, Hemoglobin 6.3*L, Hematocrit 19.4L, Mean Corpuscular Volume 92, Mean Corpuscular Hemoglobin 29.6, Mean Corpuscular Hemoglobin Concent 32.3, Red Cell Distribution Width 14.4, Platelet Count 329, Mean Platelet Volume 6.7, Neutrophils (%) (Auto) , Lymphocytes (%) ( Auto) , Monocytes (%) (Auto) , Eosinophils (%) (Auto) , Basophils (%) (Auto) , Differential Total Cells Counted 100, Neutrophils % (Manual) 85H, Lymphocytes % (Manual) 9L, Monocytes % (Manual) 5, Eosinophils % (Manual) 1, Basophils % ( Manual) 0, Band Neutrophils 0, Platelet Estimate Adequate, Platelet Morphology Normal, Hypochromasia 1+, Sodium Level 144, Potassium Level 3.8, Chloride Level 106, Carbon Dioxide Level 25, Anion Gap 13, Blood Urea Nitrogen 70H, Creatinine 3.4H, Estimat Glomerular Filtration Rate 15.5, Glucose Level 128H, Calcium Level 9.8, Total Bilirubin 0.8, Aspartate Amino Transf (AST/SGOT) 36, Alanine Aminotransferase (ALT/SGPT) 37, Alkaline Phosphatase 75, Total Protein 6.5, Albumin 3.6, Globulin 2.9, Albumin/Globulin Ratio 1.2 Current Medications Medications (Trade) Dose Ordered Sig/Joan Route PRN Reason Start Time Stop Time Status Last Admin Dose Admin Acetaminophen (Tylenol) 650 mg Q4H PRN NG Mild Pain/Temp > 100.5 07/04/19 20:30 08/01/19 12:29 Acetylcysteine (Mucomyst) 100 mg Q4H PRN HHN Shortness of Breath 07/04/19 18:00 08/03/19 17:59 Albumin Human 100 ml @ 100 mls/hr NEEDED PRN IV DIALYSIS 07/04/19 19:00 08/03/19 18:59 07/06/19 01:30 Chlorhexidine Gluconate (Cari-Hex 2%) 1 applic DAILY@2000 TOPIC 07/04/19 20:00 07/26/19 19:59 07/08/19 20:25 Dextrose (Dextrose 50%) 25 ml Q30M PRN IV Hypoglycemia 07/04/19 20:00 07/24/19 19:51 Dextrose (Dextrose 50%) 50 ml Q30M PRN IV Hypoglycemia 07/04/19 20:00 07/24/19 19:51 Diphenhydramine HCl (Benadryl) 25 mg Q6H PRN ORAL Itching/Pruritis 07/04/19 20:00 07/24/19 19:51 Epoetin Dion (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)) 6,000 unit SUBQ 07/08/19 21:00 08/07/19 20:59 07/08/19 20:25 Fluconazole (Diflucan) 100 mg DAILY ORAL 07/08/19 09:00 07/12/19 08:59 07/09/19 09:42 Furosemide (Lasix) 40 mg DAILY IV 07/05/19 09:00 07/30/19 19:59 07/09/19 09:42 Gabapentin (Neurontin) 300 mg BID GT 07/05/19 09:00 08/01/19 17:59 07/09/19 09:43 Haloperidol Lactate (Haldol) 5 mg Q6H PRN IM Agitation 07/06/19 01:45 08/20/19 01:44 Hydromorphone HCl (Dilaudid) 0.5 mg Q2H PRN IVP Severe Pain (Pain Scale 7-10) 07/04/19 20:30 07/09/19 12:29 07/07/19 13:13 Meropenem 500 mg/ Sodium Chloride 50 ml @ 100 mls/hr Q24HRS IVPB 07/07/19 17:30 07/10/19 17:29 07/08/19 19:05 Ondansetron HCl (Zofran) 4 mg Q4H PRN IVP Nausea & Vomiting 07/04/19 20:00 08/02/19 19:59 Pantoprazole (Protonix) 40 mg DAILY IVP 07/05/19 09:00 07/30/19 08:59 07/09/19 09:43 Abrahan Samaniego MD Jul 09, 2019 10:08
--- NOTE | 2019-07-09 11:09 | Nephrology Progress Note ---
Assessment/Plan Plan #acute renal failure on possible CKD- due to rhabdo- UA with + RBC- concerns for developing ATN #Uremia #complete opacification of the left hemithorax- likely aspiration pneumonia #lactic acidosis #Hypernatremia- improved #AMS #elevated liver enzyme - HD tomorrow- - prbc transfusion today - permacath today - set up outapatient HD at renal - case management notified - epogen 6k TIW - DC lasix - monitor UOP - PEG 07/04 - pulmonary eval - on room air now - renal -> No obstructive nephropathy. - monitor liver enzymes and lipase - Gi eval - continue with abx per ID Subjective Subjective s/p PEG 07/04 s/p HD yesterday permcath today BP stable hemoglobin low today getting one unit of prbc today CT chest: Extensive airspace consolidation in the left lung involving the left perihilar, upper lobe and left lower lobe. Findings suspicious for pneumonia, especially aspiration given the abrupt onset. Please correlate clinically. Partial atelectasis of the left lower lobe also noted Objective Objective Last 24 Hour Vital Signs Date Time Temp Pulse Resp B/P (MAP) Pulse Ox O2 Delivery O2 Flow Rate FiO2 07/09/19 08:00 98.1 112 19 136/72 (93) 97 07/09/19 07:20 100 Nasal Cannula 2.0 28 07/09/19 07:20 106 20 100 Nasal Cannula 2.0 28 07/09/19 04:00 97.2 100 19 115/65 (82) 98 07/09/19 00:00 97.9 100 21 139/78 (98) 94 07/08/19 21:13 Nasal Cannula 2.0 Nasal Cannula 2.0 07/08/19 20:00 98.2 98 21 134/74 (94) 100 07/08/19 19:58 98 20 100 Nasal Cannula 2.0 28 07/08/19 19:58 100 Nasal Cannula 2.0 28 07/08/19 16:00 98.7 104 20 121/64 (83) 100 07/08/19 12:00 98.2 114 23 90/68 (75) 98 Intake and Output 07/08/19 07/09/19 19:00 07:00 Intake Total 100 ml 420 ml Output Total 100 ml Balance 0 ml 420 ml Free Water 60 ml 100 ml Tube Feeding 40 ml 320 ml Output Urine Total 100 ml Hemodialysis UF 0 ml Laboratory Tests 07/09/19 07:52: White Blood Count 10.6, Red Blood Count 2.12L, Hemoglobin 6.3*L, Hematocrit 19.4L, Mean Corpuscular Volume 92, Mean Corpuscular Hemoglobin 29.6, Mean Corpuscular Hemoglobin Concent 32.3, Red Cell Distribution Width 14.4, Platelet Count 329, Mean Platelet Volume 6.7, Neutrophils (%) (Auto) , Lymphocytes (%) ( Auto) , Monocytes (%) (Auto) , Eosinophils (%) (Auto) , Basophils (%) (Auto) , Differential Total Cells Counted 100, Neutrophils % (Manual) 85H, Lymphocytes % (Manual) 9L, Monocytes % (Manual) 5, Eosinophils % (Manual) 1, Basophils % ( Manual) 0, Band Neutrophils 0, Platelet Estimate Adequate, Platelet Morphology Normal, Hypochromasia 1+, Sodium Level 144, Potassium Level 3.8, Chloride Level 106, Carbon Dioxide Level 25, Anion Gap 13, Blood Urea Nitrogen 70H, Creatinine 3.4H, Estimat Glomerular Filtration Rate 15.5, Glucose Level 128H, Calcium Level 9.8, Total Bilirubin 0.8, Aspartate Amino Transf (AST/SGOT) 36, Alanine Aminotransferase (ALT/SGPT) 37, Alkaline Phosphatase 75, Total Protein 6.5, Albumin 3.6, Globulin 2.9, Albumin/Globulin Ratio 1.2 Height (Feet): 5 Height (Inches): 3.00 Weight (Pounds): 116 Objective General Appearance: lethargic, confused, on bipap Lines, tubes and drains: peripheral HEENT: normocephalic, atraumatic Neck: non-tender Respiratory/Chest: minimal breath sounds on the left Cardiovascular/Chest: normal peripheral pulses, normal rate, regular rhythm, regularly irregular Abdomen: non tender, soft Rory Oconnor M.D. Jul 09, 2019 11:09
[2019-07-09] MEDS ORDERED: Lidocaine 2% 20mg/ml/Epi 0.005mg/ml 20ml vial INJ PRN (11:15)
[2019-07-09] MEDS ORDERED: Heparin1,000 units/500ml Premix(Conc:2 units/ml) INJ PRN (11:30)
[2019-07-09] MEDS ORDERED: ceFAZolin sod 1 GM in D5W 55 ML IVPB ONE (11:45)
[2019-07-09] MEDS ORDERED: Heparin Sod 1000 units/ml 10ml ONE (11:51)
--- NOTE | 2019-07-09 12:15 | Brief Operative Note ---
Immediate Post Operative Note Operative Note Pre-op Diagnosis: renal failure Procedure: R IJV permacath Post-op Diagnosis: same as pre-op Findings: consistent w/pre-op dx studies Surgeon: Brandie Carlson Anesthesia: local Specimen: none Complications: none Condition: unstable Fluids: none Implant(s) used?: No Pirmo Carlson MD Jul 09, 2019 12:15
--- NOTE | 2019-07-09 13:05 | Surgery Progress Note ---
Surgery Progress Note Subjective Procedure Performed Left femoral temporary hemodialysis catheter insertion Symptoms: improved, tolerating diet, passing flatus, BM Objective Last 24 Hour Vital Signs Date Time Temp Pulse Resp B/P (MAP) Pulse Ox O2 Delivery O2 Flow Rate FiO2 07/09/19 12:00 98.4 100 18 124/67 (86) 98 07/09/19 11:46 113 18 3.0 07/09/19 09:00 Nasal Cannula 2.0 Nasal Cannula 2.0 07/09/19 08:00 98.1 112 19 136/72 (93) 97 07/09/19 07:20 100 Nasal Cannula 2.0 28 07/09/19 07:20 106 20 100 Nasal Cannula 2.0 28 07/09/19 04:00 97.2 100 19 115/65 (82) 98 07/09/19 00:00 97.9 100 21 139/78 (98) 94 07/08/19 21:13 Nasal Cannula 2.0 Nasal Cannula 2.0 07/08/19 20:00 98.2 98 21 134/74 (94) 100 07/08/19 19:58 98 20 100 Nasal Cannula 2.0 28 07/08/19 19:58 100 Nasal Cannula 2.0 28 07/08/19 16:00 98.7 104 20 121/64 (83) 100 I&O Intake and Output 07/08/19 07/09/19 19:00 07:00 Intake Total 100 ml 420 ml Output Total 100 ml Balance 0 ml 420 ml Free Water 60 ml 100 ml Tube Feeding 40 ml 320 ml Output Urine Total 100 ml Hemodialysis UF 0 ml Dressing: dry Wound: clean Cardiovascular: RSR Respiratory: clear Abdomen: soft, non-tender, present bowel sounds Extremities: no edema, no tenderness, no cyanosis Laboratory Tests Test 07/09/19 07:52 White Blood Count 10.6 K/UL (4.8-10.8) Red Blood Count 2.12 M/UL (4.20-5.40) L Hemoglobin 6.3 G/DL (12.0-16.0) *L Hematocrit 19.4 % (37.0-47.0) L Mean Corpuscular Volume 92 FL (80-99) Mean Corpuscular Hemoglobin 29.6 PG (27.0-31.0) Mean Corpuscular Hemoglobin Concent 32.3 G/DL (32.0-36.0) Red Cell Distribution Width 14.4 % (11.6-14.8) Platelet Count 329 K/UL (150-450) Mean Platelet Volume 6.7 FL (6.5-10.1) Neutrophils (%) (Auto) % (45.0-75.0) Lymphocytes (%) (Auto) % (20.0-45.0) Monocytes (%) (Auto) % (1.0-10.0) Eosinophils (%) (Auto) % (0.0-3.0) Basophils (%) (Auto) % (0.0-2.0) Differential Total Cells Counted 100 Neutrophils % (Manual) 85 % (45-75) H Lymphocytes % (Manual) 9 % (20-45) L Monocytes % (Manual) 5 % (1-10) Eosinophils % (Manual) 1 % (0-3) Basophils % (Manual) 0 % (0-2) Band Neutrophils 0 % (0-8) Platelet Estimate Adequate Platelet Morphology Normal Hypochromasia 1+ Sodium Level 144 MMOL/L (136-145) Potassium Level 3.8 MMOL/L (3.5-5.1) Chloride Level 106 MMOL/L (98-107) Carbon Dioxide Level 25 MMOL/L (21-32) Anion Gap 13 mmol/L (5-15) Blood Urea Nitrogen 70 mg/dL (7-18) H Creatinine 3.4 MG/DL (0.55-1.30) H Estimat Glomerular Filtration Rate 15.5 mL/min (>60) Glucose Level 128 MG/DL (74-106) H Calcium Level 9.8 MG/DL (8.5-10.1) Total Bilirubin 0.8 MG/DL (0.2-1.0) Aspartate Amino Transf (AST/SGOT) 36 U/L (15-37) Alanine Aminotransferase (ALT/SGPT) 37 U/L (12-78) Alkaline Phosphatase 75 U/L (46-116) Total Protein 6.5 G/DL (6.4-8.2) Albumin 3.6 G/DL (3.4-5.0) Globulin 2.9 g/dL Albumin/Globulin Ratio 1.2 (1.0-2.7) Plan Problems: (1) Fall Assessment & Plan: 88 year old female s/p fall now with renal insufficiency requiring HD spoke with family. she has known CKD multiple decubitus ulcers from being down malnutrition line placed see documentation trend labs abx HD thank you prognosis guarded family at bedside cxr noted pna worsening R cheek pressure injury resolved. Unstageable pressure injury R shoulder now has 90% necrosis,surrounding 10% pink granulation(L()4.1cm x (W)3.3cm. No odor or exudate noted.No erythema or induration periwound. Reabsorbed DTPI R Humerus. Base of wound is dry,brown with pink epithelial at the distal base of wound(L)9.4cm x (W)3.1cm. DTPI R elbow has resolved. Scattered dry brown peeling skin noted. No erythema noted. DTPI sacrum less indurated (L)4.5cm x (W)6cm. Small opening at marco a cleft that is corby and moist(L)1.5cm x (W)0.3cm. No exudate noted. L ischial DTPI reabsorbed(L)6cm x (W)7cm. Base of injury black. No erythema or evidence of further breakdown periwound. Unstageable pressure injury R hip(L)8.9cm x (W)14.2cm. Base of wound has 50% slough ,25% soft necrosis, 25% pink granulation along borders.Edges adherent to base of wound. No odor or exudate noted. DTPI medial/posterior L heel reabsorbed. Base of injury is boggy but blanchable. Unstageable Pressure Injury L Hallux resolving.(L)4.3cm x (W)3.7cm. Base of wound is 60% necrotic,10% slough with surrounding 30% pink granulation. Marginal erythema periwound. Small amt purulent exudate noted. No odor noted. DTPI medial L malleolus reabsorbed. Dry brown patch noted. Reabsorbed blood blisters L 1st,2nd and 3rd metatarsals. Dry brown patches noted dorsally all 3 metatarsals. R heel DTPI resolving. R heel is boggy but blanchable. Unstageable pressure injury lateral R malleolus. Base of wound has scattered slough. Borders are macerated with marginal erythema periwound.(L)0.7cm x (W) 1.3cm. No erythema or fluctuance periwound. DTPI distal/lateral R foot resolving. Base of injury is maroon /fluctuant. No erythema or induration periwound. DTPI lateral R 5th metatarsal resolved. Wound care provided. Wound Tx are effective and continued as ordered. All wound prevention protocols continued as care-planned. Family member at bedside and updated on wound progress. DAILY ESTIMATED NEEDS: Needs based on Wounds, 51.8kg 30-35 kcals/kg 3702-5432 total kcals 1.25-1.5 g protein/kg 65-78 g total protein 25-30ml/kcal mL/kg 9121-4598 total fluid mLs NUTRITION DIAGNOSIS: * Increased kcal and pro needs r/t wound healing and renal failure as evidenced by, s/p fall w/ pressure wounds per MD, refer to WC eval, ARF needing HD. * Swallowing difficulty R/T dysphagia as evidenced by s/p NGT placement, plan for PEG placement w/ consent and medical clearance, TF held for possible pancreatitis. CURRENT TF:NPO- TF HELD FOR POSSIBLE PANCREATITIS ENTERAL NUTRITION RECOMMENDATIONS: NEPRO @36ml/hr x24 hrs to provide 864ml, 1555 kcal, 70g pro, 628ml free H2O free H2O - As medically appropriate, resume TF - Start @16ml/hr for 8 hrs, advance as tolerated 5ml/hr q4-6 hrs to goal. - Flush per MD/ HOB Over 30 degrees - PT AT HIGH RISK FOR REFEEDING SYNDROME, MONITOR LYTES DAILY, REPLETE NEEDED ADDITIONAL RECOMMENDATIONS: 1) Monitor ability to resume TF NGT feeds held 06/30 for possible pancreatitis. If unable to feed via GI, consider initiating TPN due to proloned NPO, minimal intake status 2) WOUND CARE: W/ active TF order add VASQUEZ in 4oz H2O BID 3) Rec added dextrose when NPO 4) Calibrated bed scale wts daily 5) Monitor lytes closely w/ TF- high risk for refeeding syndrome (2) Altered level of consciousness (3) Fracture of lumbar spine Assessment & Plan: Lungs: There is increased density at the lung bases likely atelectasis. Aorta is moderately calcified. There is a small hiatal hernia.. Liver: Grossly unremarkable. There is artifact limiting evaluation in addition to the fact that no IV or oral contrast was given for this examination. Gallbladder/biliary system: Grossly unremarkable. Spleen: Unremarkable Pancreas: In the area of the pancreatic tail there is a 1.6 cm nodular density which may be cystic. Further evaluation is recommended. Kidneys/Bladder: Vascular calcifications are quite extensive and extend to the hilum of both kidneys. Evaluation for punctate nonobstructive stones is limited in this setting but no definite stones seen. There is no hydronephrosis. Extensive breathing motion limiting evaluation.. Adrenal glands: Unremarkable Bowel: Patient's prior partial bowel resection in the right lower abdomen with anastomotic sutures noted. There is no evidence of a bowel obstruction or inflammatory changes. Appendix is not seen definitely but there are no signs of appendicitis. A few diverticula are noted within the colon. Aorta/IVC: There is a severe calcification of aorta and multiple branches of the aorta. Peritoneum: There is no free fluid. Bones: Bones are diffusely osteopenic. Multiple compression fracture deformities of several vertebra noted including lower thoracic vertebra and L1. There is narrowing of intervertebral discs and accompanying endplate osteophyte formation. Hypertrophied facet joints also demonstrated. Scoliosis of the lower thoracic spine convex to the right and left convex lumbar scoliosis noted. IMPRESSION: No acute findings appreciated. Study limited by the lack of intravenous oral contrast as well as extensive motion artifact. 1.6 cm probable cystic lesion in the pancreatic tail. This requires further evaluation with the contrast CT or MR. Status post previous partial bowel resection. 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 Degenerative changes as described above. (4) Rhabdomyolysis (5) KAREN (acute kidney injury) (6) Decubitus skin ulcer Assessment & Plan: Pt presented on admission with multiple pressure injuries. Pt's niece Sarah stated pt lives alone and found pt laying on her R side on floor in patient's home.Niece believes pt has been laying on floor for approx 5 days. DTPI noted to R cheek. Base of wound is purple with marginal erythema along borders.(L)1.2cm x (W)1.6cm. Unstageable pressure injury R shoulder. Base of wound is 100% necrotic with marginal erythema along borders.(L)4.8cm x (W).3.5cm . DTPI R humerus. Base of wound is fluctuant and maroon in colour with surrounding erythema. (L)10.6cm x (W)3.1cm. DTPI R elbow.Base of wound is indurated with scattered areas that are purple in colour. An area of fluctuance in center. Marginal erythema along borders.(L) 5.3cm x (W)10.4cm. Partially opened Sacral DTPI. Base of wound is purple with surrounding erythema. Partial open wound marco a cleft that is corby and moist.(L)5.3cm x (W) 4.5cm.NO odor or exudate noted. Non-blanching erythema periwound. DTPI L ischium . Base of wound is purple and indurated.(L)6cm x (W)7.5cm. Unstageable pressure injury R hip. Base of wound is 75% necrotic, 25% mixed erythema and slough. Borders are moist,soft with scattered areas that are black. Periwound is dusky and indurated.No odor or exudate noted. DTPI at posterior and medial aspect of L heel. Base of wound is maroon and fluctuant(L)4cm x (W)7cm. Unstageable pressure injury L Hallux. Base of wound is 100% necrotic but soft. Borders are erythematous. Periwound without induration or fluctuance.(L)2.5cm x (W)3cm. DTPI medial L malleolus. Base of wound fluctuant and maroon in colour.(L) 0.3cm x (W)1.2cm. DTPI medial L malleolus. Base of wound fluctuant and maroon in colour with Marginal erythema along borders.(L)0.3cm x (W)1.2cm. Intact blood filled blisters noted to L 1st Metatarsal laterally and head of metatarsal. Intact blood filled blisters noted to heads of L 2nd and L 3rd metatarsals. DTPI noted to posterior and lateral R Heel. Posterior R heel is maroon in colour and fluctuant at base. Laterally ,R heel is black and fluctuant at base.Periwound is boggy and non-blanchable.(L)7cm x (W)8cm. Unstageable pressure injury lateral R malleolus. Base of wound is 100% necrotic and dry.Marginal erythema along borders.Periwound is fluctuant and erythematous( L)1.2cm x (W)1.5cm. DTPI distal/lateral R foot. Base of wound is fluctuant and maroon in colour.(L) 1.3cm x (W)1.7cm. DTPI lateral R 5th metatarsal. Base of wound is maroon and fluctuant with marginal erythema along borders .(L)0.7cm x (W)1.1cm Tx.Plan: Cleanse Wound R shoulder with Saline. Apply Therahoney. Apply Cavilon Skin barrier periwound. Cover with Optifoam drsg every 3 days and prn. Cleanse R hip wound with Saline. Apply Therahoney with 4x4 Gauze. Apply Moisture Barrier Paste periwound.Cover with Optifoam drsg. Daily and prn. Apply Moisture Barrier Paste to Sacral wound and L Ischium. Cover each wound with Optifoam drsg every 3 days and prn. Apply Betadine to R humerus and R elbow . Cover each wound with Optifoam drsg. Change every 3 days and prn. Apply Betadine to wounds R heel, R malleolus and R foot . Cover each wound with Optifoam drsg every 3 days and prn. Apply Betadine to wounds L heel ,L medial malleolus and L foot. Cover each wound with Optifoam drsgs every 3 Days and prn. Air Fluidized Mattress. Reposition at least every 2hours or as tolerated. Place Pillow between knees. Off-load heels with pillow. Anshul Nava Jul 09, 2019 13:05
--- NOTE | 2019-07-09 13:08 | General Progress Note ---
Assessment/Plan Status: stable Assessment/Plan: #Rhabdomyolosis #KAREN #Acute renal failure - on HD UF #Uremic encephalopathy #Anion gap metabolic acidosis #Lactic acidosis -resolved -Nephrology following for HD -S/p permacath placement -Awaiting outpatient HD #Acute anemia -transfuse 2 units PRBC as per Hematology recs -monitor CBC #Left lung PNA - likely aspiration #Acute hypoxic respiratory failure s/p BiPAP - improved #Strep Viridans bacteremia #Worsening Leukocytosis #loose stools Noted to be acutely hypoxic on early AM of 06/25 -s/p BiPAP -> NC/room air intermittently -CT chest, CXR with left lung infiltrate. -ABG prn. -Pulmonology following -echo negative for vegetations -CXR 06/28: Bilateral interstitial thickening and patchy airspace opacities in the left lung, similar to prior study given differences in technique. -ID following - Off abx -Stool C. diff negative,oral vanco stopped #Dysphagia -s/p PEG -cont tube feeds #L1 vertebral fracture - likely old seen on imaging, likely old. -reassurance provided to family. #Transaminitis #Acute pancreatitis ?from dehydration, abd exam benign. -continue to trend LFT's, numbers improving -GI following #Type 2 NSTEMI likely demand in setting of renal failure. EKG wnl. -no need to trend. -cardiology consulted - pt will need stress test prior to d/c #Pressure wounds. Time spent: 36 mins, >50% on coordination of care and chart review. Subjective Date patient seen: Jul 09, 2019 Time patient seen: 12:33 ROS Limited/Unobtainable: Yes Allergies: Coded Allergies: No Known Allergies (Unverified , 06/24/19) Subjective Follow up for KAREN, acute pancreatitis, rhabdo, strep bacteremia Acute anemia noted today Sp permacath placement Objective Last 24 Hour Vital Signs Date Time Temp Pulse Resp B/P (MAP) Pulse Ox O2 Delivery O2 Flow Rate FiO2 07/09/19 12:00 98.4 100 18 124/67 (86) 98 07/09/19 11:46 113 18 3.0 07/09/19 09:00 Nasal Cannula 2.0 Nasal Cannula 2.0 07/09/19 08:00 98.1 112 19 136/72 (93) 97 07/09/19 07:20 100 Nasal Cannula 2.0 28 3/17/20 07:20 106 20 100 Nasal Cannula 2.0 28 07/09/19 04:00 97.2 100 19 115/65 (82) 98 07/09/19 00:00 97.9 100 21 139/78 (98) 94 07/08/19 21:13 Nasal Cannula 2.0 Nasal Cannula 2.0 07/08/19 20:00 98.2 98 21 134/74 (94) 100 07/08/19 19:58 98 20 100 Nasal Cannula 2.0 28 07/08/19 19:58 100 Nasal Cannula 2.0 28 07/08/19 16:00 98.7 104 20 121/64 (83) 100 Intake and Output 07/08/19 07/09/19 19:00 07:00 Intake Total 100 ml 420 ml Output Total 100 ml Balance 0 ml 420 ml Free Water 60 ml 100 ml Tube Feeding 40 ml 320 ml Output Urine Total 100 ml Hemodialysis UF 0 ml Laboratory Tests 07/09/19 07:52: White Blood Count 10.6, Red Blood Count 2.12L, Hemoglobin 6.3*L, Hematocrit 19.4L, Mean Corpuscular Volume 92, Mean Corpuscular Hemoglobin 29.6, Mean Corpuscular Hemoglobin Concent 32.3, Red Cell Distribution Width 14.4, Platelet Count 329, Mean Platelet Volume 6.7, Neutrophils (%) (Auto) , Lymphocytes (%) ( Auto) , Monocytes (%) (Auto) , Eosinophils (%) (Auto) , Basophils (%) (Auto) , Differential Total Cells Counted 100, Neutrophils % (Manual) 85H, Lymphocytes % (Manual) 9L, Monocytes % (Manual) 5, Eosinophils % (Manual) 1, Basophils % ( Manual) 0, Band Neutrophils 0, Platelet Estimate Adequate, Platelet Morphology Normal, Hypochromasia 1+, Sodium Level 144, Potassium Level 3.8, Chloride Level 106, Carbon Dioxide Level 25, Anion Gap 13, Blood Urea Nitrogen 70H, Creatinine 3.4H, Estimat Glomerular Filtration Rate 15.5, Glucose Level 128H, Calcium Level 9.8, Total Bilirubin 0.8, Aspartate Amino Transf (AST/SGOT) 36, Alanine Aminotransferase (ALT/SGPT) 37, Alkaline Phosphatase 75, Total Protein 6.5, Albumin 3.6, Globulin 2.9, Albumin/Globulin Ratio 1.2 Height (Feet): 5 Height (Inches): 3.00 Weight (Pounds): 116 General Appearance: no apparent distress, lethargic Neck: normal alignment, supple Cardiovascular: normal rate, regular rhythm Respiratory/Chest: lungs clear, normal breath sounds Abdomen: non tender, soft Oumar Foy MD Jul 09, 2019 13:08
[2019-07-09] MEDS ORDERED: Heparin Sod 1000 units/ml 10ml INJ SCH (14:00)
--- NOTE | 2019-07-09 14:15 | Diagnostic Imaging Report ---
Indications: Needs long-term dialysis access Technique: Patient given IV Ancef. Total sterile technique, including sterile probe cover and sterile gel, sterile gloves, hand hygiene, hat, mask, sterile gown, large sterile drape, and preparation with 2% chlorhexidine utilized. Local anesthesia with 1% lidocaine. Under real-time ultrasound guidance, puncture right internal jugular vein using 21-gauge micropuncture needle, passage 0.018 guidewire, exchange for 4 Yemeni micropuncture introducer. The guidewire was used to measure the appropriate catheter length, and was removed. The sheath was left in place. The subcutaneous tract was then anesthetized with 1% lidocaine. A chest dermatotomy was made . The tunneling device was used to pull a 14.5 Yemeni right cm BioFlo Duramax catheter through the subcutaneous tunnel to the neck dermatotomy. A guidewire was passed through the neck introducer into the inferior vena cava, and serial dilators were passed over it, followed by the introduction of a 14.5 Yemeni AirGuard peel-away sheath. The catheter was then introduced into the sheath, the peel-away sheath was removed. Digital radiograph documents satisfactory catheter tip position in the high right atrium, no kinking at the insertion site. Both catheter ports aspirated and flushed. Catheter was fixed to the skin. Patient tolerated procedure well without immediate complication. Total fluoroscopy time 27.4 seconds. Total dose area product [id number] Total number of images-one Comparison: None. Findings: Completion radiograph documents satisfactory position and course of the catheter, catheter tip at the high right atrium. Impression: Successful placement of right transjugular tunneled dialysis catheter, as described above
--- NOTE | 2019-07-09 17:29 | Infectious Diseases Prog Note ---
Assessment/Plan Assessment/Plan ASSESSMENT AND PLAN: 1. streptococcus viridans bacteremia, ? endocarditis, aspiration pna/hcap, atx, sepsis, leukocytosis, fevers, sob, arf, rhabdomyolysis c.diff. - negative, wounds noted, pancreatitis, elevated lft's, no sputum culture obtained, ? fungal uti vs colonizer, fungemia risk - meropenem - day # 10/10, s/p zyvox - diflucan x 3 days - monitor labs and chest x-ray - TTE - no vegetation mentioned in repor - CT and US noted, lft's better - continue treatment per primary and consultants - wound care per surgery - doubt sepsis source - clinically better, leukocytosis improving - d/w family 2. Acute renal failure, crf - on hemodialysis 3. Rhabdomyolysis - per primary and renal medicine 4. Elevated LFTs. 5. CAD. 6. Non-STEMI. 7. No history of diabetes or hypertension. 8. Fall. 9. Altered level of consciousness. 10. Lumbar spine fracture. 11. No known drug allergies. 12. Social history is negative. 13. Family history is noncontributory. 14. MAR was noted. 15. Case was discussed with RN and family 16. Continue treatment per primary consultants. Subjective Constitutional: Reports: fatigue; Denies: fever HEENT: Denies: congestion Respiratory: Denies: shortness of breath Cardiovascular: Denies: chest pain Gastrointestinal/Abdominal: Denies: nausea, vomiting, diarrhea Genitourinary: Reports: other - + hargrove Neurologic: Denies: headache Psychiatric: Denies: depression Skin: Denies: rash Hematologic: Denies: bleeding Musculoskeletal: Denies: pain Allergies: Coded Allergies: No Known Allergies (Unverified , 06/24/19) Objective Vital Signs Last 24 Hour Vital Signs Date Time Temp Pulse Resp B/P (MAP) Pulse Ox O2 Delivery O2 Flow Rate FiO2 07/09/19 16:00 99.3 107 20 127/59 (81) 100 07/09/19 12:10 114 18 144/65 (91) 100 07/09/19 12:05 121 18 138/66 (90) 100 07/09/19 12:00 98.4 100 18 124/67 (86) 98 07/09/19 12:00 118 22 148/70 (96) 100 07/09/19 11:55 114 18 137/58 (84) 100 07/09/19 11:50 114 20 158/62 (94) 100 07/09/19 11:46 113 18 3.0 07/09/19 11:45 113 20 143/68 (93) 100 07/09/19 09:00 Nasal Cannula 2.0 Nasal Cannula 2.0 07/09/19 08:00 98.1 112 19 136/72 (93) 97 07/09/19 07:20 100 Nasal Cannula 2.0 28 07/09/19 07:20 106 20 100 Nasal Cannula 2.0 28 07/09/19 04:00 97.2 100 19 115/65 (82) 98 07/09/19 00:00 97.9 100 21 139/78 (98) 94 07/08/19 21:13 Nasal Cannula 2.0 Nasal Cannula 2.0 07/08/19 20:00 98.2 98 21 134/74 (94) 100 07/08/19 19:58 98 20 100 Nasal Cannula 2.0 28 07/08/19 19:58 100 Nasal Cannula 2.0 28 Height (Feet): 5 Height (Inches): 3.00 Weight (Pounds): 116 General Appearance: no acute distress HEENT: normocephalic, atraumatic, anicteric, mucous membranes moist Respiratory/Chest: lungs clear, normal breath sounds, no respiratory distress, no accessory muscle use Cardiovascular: normal rate, regular rhythm, no gallop/murmur, no JVD Abdomen: normal bowel sounds, soft, non tender, no organomegaly, non distended Genitourinary: other - + hargrove - urine slt cloudy Extremities: no cyanosis Skin: no rash Neurologic/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 There is considerable interstitial and airspace disease throughout the left lung, however. Less extensive interstitial congestion is seen in the right lung. The heart size is normal. The aorta is tortuous and calcified Impression: Interim reexpansion of previously atelectatic left lung. However, there is considerable infiltrate and/or edema throughout the left lung. There is also persistent mild generalized interstitial congestion in the right lung CT Chest: IMPRESSION: Extensive airspace consolidation in the left lung involving the left perihilar, upper lobe and left lower lobe. Findings suspicious for pneumonia, especially aspiration given the abrupt onset. Please correlate clinically. Partial atelectasis of the left lower lobe also noted. Atherosclerotic vascular disease. Degenerative changes of the spine and scoliosis. CT abdomen and pelvis: IMPRESSION: No acute findings appreciated. Study limited by the lack of intravenous oral contrast as well as extensive motion artifact. 1.6 cm probable cystic lesion in the pancreatic tail. This requires further evaluation with the contrast CT or MR. Status post previous partial bowel resection. 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 Degenerative changes as described above. Chest x-ray - 07/01/19 - Procedure: XRAY Chest 1v Indication: Dyspnea Comparison: 06/30/2019 A single view chest radiograph was obtained. Findings: Interstitial densities demonstrated with cardiomegaly. There is blunting of the left costophrenic angle. There is a weighted feeding tube the tip of which is projected over the antrum and pyloric region. IMPRESSION: Mild interstitial edema presumably due to heart failure. Correlate clinically Abdominal US: IMPRESSION: No acute findings appreciated. Bilateral pleural effusions Cyst in the splenic hilar region. Contracted gallbladder with prominent wall. CT scan of abdomen and pelvis - 07/02/19 - Impression: 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 Otherwise unremarkable pancreas Small left pleural effusion, new since prior study of 06/24/2019. Bilateral basilar atelectasis and consolidation, increased from the prior exam No acute abnormality otherwise Nasogastric tube in good position Chest x-ray - 07/06/19 - IMPRESSION: 1. No significant interval change from the prior chest x-ray. 2. Pulmonary vascular congestion and/or pulmonary interstitial edema. 3. Possible small layering pleural effusions, greater on the left. 4. Left lung base/retrocardiac subsegmental atelectasis versus infiltrate. Microbiology Date/Time Source Procedure Growth Status 06/29/19 14:25 Blood Blood Culture - Final NO GROWTH AFTER 5 DAYS Complete 06/30/19 18:00 Stool Clostridium difficile Toxin Assay - Final Complete 07/04/19 18:29 Urine,Clean Catch Urine Culture - Final Melanie Albicans Complete Laboratory Tests Test 07/09/19 07:52 White Blood Count 10.6 K/UL (4.8-10.8) Red Blood Count 2.12 M/UL (4.20-5.40) L Hemoglobin 6.3 G/DL (12.0-16.0) *L Hematocrit 19.4 % (37.0-47.0) L Mean Corpuscular Volume 92 FL (80-99) Mean Corpuscular Hemoglobin 29.6 PG (27.0-31.0) Mean Corpuscular Hemoglobin Concent 32.3 G/DL (32.0-36.0) Red Cell Distribution Width 14.4 % (11.6-14.8) Platelet Count 329 K/UL (150-450) Mean Platelet Volume 6.7 FL (6.5-10.1) Neutrophils (%) (Auto) % (45.0-75.0) Lymphocytes (%) (Auto) % (20.0-45.0) Monocytes (%) (Auto) % (1.0-10.0) Eosinophils (%) (Auto) % (0.0-3.0) Basophils (%) (Auto) % (0.0-2.0) Differential Total Cells Counted 100 Neutrophils % (Manual) 85 % (45-75) H Lymphocytes % (Manual) 9 % (20-45) L Monocytes % (Manual) 5 % (1-10) Eosinophils % (Manual) 1 % (0-3) Basophils % (Manual) 0 % (0-2) Band Neutrophils 0 % (0-8) Platelet Estimate Adequate Platelet Morphology Normal Hypochromasia 1+ Sodium Level 144 MMOL/L (136-145) Potassium Level 3.8 MMOL/L (3.5-5.1) Chloride Level 106 MMOL/L (98-107) Carbon Dioxide Level 25 MMOL/L (21-32) Anion Gap 13 mmol/L (5-15) Blood Urea Nitrogen 70 mg/dL (7-18) H Creatinine 3.4 MG/DL (0.55-1.30) H Estimat Glomerular Filtration Rate 15.5 mL/min (>60) Glucose Level 128 MG/DL (74-106) H Calcium Level 9.8 MG/DL (8.5-10.1) Total Bilirubin 0.8 MG/DL (0.2-1.0) Aspartate Amino Transf (AST/SGOT) 36 U/L (15-37) Alanine Aminotransferase (ALT/SGPT) 37 U/L (12-78) Alkaline Phosphatase 75 U/L (46-116) Total Protein 6.5 G/DL (6.4-8.2) Albumin 3.6 G/DL (3.4-5.0) Globulin 2.9 g/dL Albumin/Globulin Ratio 1.2 (1.0-2.7) Current Medications Medications (Trade) Dose Ordered Sig/Joan Route PRN Reason Start Time Stop Time Status Last Admin Dose Admin Acetaminophen (Tylenol) 650 mg Q4H PRN NG Mild Pain/Temp > 100.5 07/04/19 20:30 08/01/19 12:29 Acetylcysteine (Mucomyst) 100 mg Q4H PRN HHN Shortness of Breath 07/04/19 18:00 08/03/19 17:59 Albumin Human 100 ml @ 100 mls/hr NEEDED PRN IV DIALYSIS 07/04/19 19:00 08/03/19 18:59 07/06/19 01:30 Chlorhexidine Gluconate (Cari-Hex 2%) 1 applic DAILY@2000 TOPIC 07/04/19 20:00 07/26/19 19:59 07/08/19 20:25 Dextrose (Dextrose 50%) 25 ml Q30M PRN IV Hypoglycemia 07/04/19 20:00 07/24/19 19:51 Dextrose (Dextrose 50%) 50 ml Q30M PRN IV Hypoglycemia 07/04/19 20:00 07/24/19 19:51 Diphenhydramine HCl (Benadryl) 25 mg Q6H PRN ORAL Itching/Pruritis 07/04/19 20:00 07/24/19 19:51 Epoetin Dion (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)) 6,000 unit MON-MON-MON SUBQ 07/08/19 21:00 08/07/19 20:59 07/08/19 20:25 Fluconazole (Diflucan) 100 mg DAILY ORAL 07/08/19 09:00 07/12/19 08:59 07/09/19 09:42 Furosemide (Lasix) 40 mg DAILY IV 07/05/19 09:00 07/30/19 19:59 07/09/19 09:42 Gabapentin (Neurontin) 300 mg BID GT 07/05/19 09:00 08/01/19 17:59 07/09/19 09:43 Haloperidol Lactate (Haldol) 5 mg Q6H PRN IM Agitation 07/06/19 01:45 08/20/19 01:44 Lidocaine/ Epinephrine (Lidocaine 2%/ Epi 20ml) 40 ml ONCE PRN INJ CATH PLACEMENT 07/09/19 11:15 07/09/19 18:00 Meropenem 500 mg/ Sodium Chloride 50 ml @ 100 mls/hr Q24HRS IVPB 07/07/19 17:30 07/10/19 17:29 07/08/19 19:05 Ondansetron HCl (Zofran) 4 mg Q4H PRN IVP Nausea & Vomiting 07/04/19 20:00 08/02/19 19:59 Pantoprazole (Protonix) 40 mg DAILY IVP 07/05/19 09:00 07/30/19 08:59 07/09/19 09:43 Ana Rosado MD Jul 09, 2019 17:29
[2019-07-09] MEDS: Dyna-Hex 2% Top Sol 2oz TOPIC SCH (20:20)
[2019-07-10] VITALS: BP 149/86
[2019-07-10 04:00] VITALS: BP 140/72
[2019-07-10 06:22] LABS: BASOPHILS % (AUTO) 0.4 % (0.0-2.0); EOSINOPHILS % (AUTO) 1.1 % (0.0-3.0); HEMATOCRIT 30.2 % (37.0-47.0); HEMOGLOBIN 10.4 G/DL (12.0-16.0); LYMPHOCYTES % (AUTO) 10.4 % (20.0-45.0); MEAN CORPUSCULAR VOLUME 90 FL (80-99); MONOCYTES % (AUTO) 9.3 % (1.0-10.0); NEUTROPHILS % (AUTO) 78.9 % (45.0-75.0); PLATELET COUNT 297 K/UL (150-450); RED BLOOD COUNT 3.36 M/UL (4.20-5.40); RED CELL DISTRIBUTION WIDTH 13.3 % (11.6-14.8); WHITE BLOOD COUNT 9.9 K/UL (4.8-10.8)
--- NOTE | 2019-07-10 06:49 | Hematology/Onc Progress Note ---
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 Otherwise unremarkable pancreas --> as per gi, may need further eval with endsocopy --> with pancreatitis at this time, may be obscuring picture --> reimage in short order, 6 months --> ca19.9 60 but may be elevated due to pancreatitis --> cea of 10 --> monitor lfts daily # Leukocytosis/elevated white blood cell count, unspecified likely related to underlying stress reaction, smoking v more likely infection in this case, bacteremia --> have reviewed peripheral smear and bandemia/neutrophilia noted --> continue antibiotics if they have been started by ID team --> monitor for resolution --> as per id care, on broad spectrum abx --> wbc 30-->21-->18.7 -->5 --> abx: bethany/linezolid --> bethany/fuc --> per id recs # Anemia of chronic disease due to underlying chronic medical issues, multifactorial v Gi bleed --> Anemia workup has been reviewed, ferritin 1300 --> No evidence of hemolysis is noted, peripheral smear has been reviewed. --> Hgb goal >7. Transfuse prn. --> Epogen has been started --> Medications have been reviewed --> hgb 8.7-->7.4-->6.3-->10 --> low threshold for gi evaluation in case has occult + --> bone marrow biopsy is not indicated given the other more likely causes # Thrombocytopenia - potential causes multifactorial, evaluate liver and viral etiologies to begin, in this case due to sepsisand pancreatitis --> Hep panel and HIV are both negative --> US abd to evaluate for cirrhosis and hsm --> pleural effusions noted, hsm is neg --> Peripheral smear ordered to evaluate for blasts /schistocytes --> abx and other meds have been reviewed --> ok for ppx if plt >50k w/ either heparin or lovenox # Acute renal failure - on HD UF --> hd with fem left omari ==> per renal hd # 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 Greatly appreciate consultation. Subjective Constitutional: Denies: no symptoms, chills, fever, malaise, weakness, other HEENT: Denies: no symptoms, eye pain, blurred vision, tearing, double vision, ear pain, ear discharge, nose pain, nose congestion, throat pain, throat swelling, mouth pain, mouth swelling, other Cardiovascular: Denies: no symptoms, chest pain, edema, irregular heart rate, lightheadedness, palpitations, syncope, other Respiratory: Denies: no symptoms, cough, shortness of breath, SOB with excertion, SOB at rest, sputum, wheezing, other Genitourinary: Denies: no symptoms, burning, discharge, frequency, flank pain, hematuria, incontinence, pain, urgency, other Neurologic/Psychiatric: Denies: no symptoms, anxiety, depressed, emotional problems, headache, numbness, paresthesia, pre-existing deficit, seizure, tingling, tremors, weakness, other Endocrine: Denies: no symptoms, excessive sweating, flushing, intolerance to cold, intolerance to heat, increased hunger, increased thirst, increased urine, unexplained weight gain, unexplained weight loss, other Hematologic/Lymphatic: Denies: no symptoms, anemia, easy bleeding, easy bruising, adenopathy, other Allergies: Coded Allergies: No Known Allergies (Unverified , 06/24/19) Subjective 07/02: resting in bed, appears to be comfortable, no bleeding, on merop, no events 07/03: is crying with ng tube, no bleeding, labs noted, no night swaets, lytes to be replted 07/04: hgb 8.2, hd for today, hep and hiv negative, nc, on bethany 07/05 to get hd for monday, no bleeding, labs reported, dw pcp, peg working 07/06 labs pending, afebrile, no sob, on abx 07/08 no major changes, hd done yesterday, no bleeding or night sweats 07/09 remains on epogen, no bleeding, labs noted, no major events, hgb 10 Objective Objective Current Medications Medications (Trade) Dose Ordered Sig/Joan Route PRN Reason Start Time Stop Time Status Last Admin Dose Admin Acetaminophen (Tylenol) 650 mg Q4H PRN NG Mild Pain/Temp > 100.5 07/04/19 20:30 08/01/19 12:29 Acetylcysteine (Mucomyst) 100 mg Q4H PRN HHN Shortness of Breath 07/04/19 18:00 08/03/19 17:59 Albumin Human 100 ml @ 100 mls/hr NEEDED PRN IV DIALYSIS 07/04/19 19:00 08/03/19 18:59 07/06/19 01:30 Chlorhexidine Gluconate (Cari-Hex 2%) 1 applic DAILY@2000 TOPIC 07/04/19 20:00 07/26/19 19:59 07/09/19 20:20 Dextrose (Dextrose 50%) 25 ml Q30M PRN IV Hypoglycemia 07/04/19 20:00 07/24/19 19:51 Dextrose (Dextrose 50%) 50 ml Q30M PRN IV Hypoglycemia 07/04/19 20:00 07/24/19 19:51 Diphenhydramine HCl (Benadryl) 25 mg Q6H PRN ORAL Itching/Pruritis 07/04/19 20:00 07/24/19 19:51 Epoetin Dion (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)) 6,000 unit MON-MON-MON SUBQ 07/08/19 21:00 08/07/19 20:59 07/08/19 20:25 Fluconazole (Diflucan) 100 mg DAILY ORAL 07/08/19 09:00 07/12/19 08:59 07/09/19 09:42 Furosemide (Lasix) 40 mg DAILY IV 07/05/19 09:00 07/30/19 19:59 07/09/19 09:42 Gabapentin (Neurontin) 300 mg BID GT 07/05/19 09:00 08/01/19 17:59 07/09/19 18:59 Haloperidol Lactate (Haldol) 5 mg Q6H PRN IM Agitation 07/06/19 01:45 08/20/19 01:44 Ondansetron HCl (Zofran) 4 mg Q4H PRN IVP Nausea & Vomiting 07/04/19 20:00 08/02/19 19:59 Pantoprazole (Protonix) 40 mg DAILY IVP 07/05/19 09:00 07/30/19 08:59 07/09/19 09:43 Last 24 Hour Vital Signs Date Time Temp Pulse Resp B/P (MAP) Pulse Ox O2 Delivery O2 Flow Rate FiO2 07/10/19 04:00 97.8 101 20 140/72 (94) 99 07/10/19 00:00 97.3 108 20 149/86 (107) 100 07/09/19 21:30 98.8 106 20 151/67 (95) 98 07/09/19 21:00 Nasal Cannula 2.0 Nasal Cannula 2.0 07/09/19 20:00 99.0 105 20 131/67 (88) 98 07/09/19 16:00 99.3 107 20 127/59 (81) 100 07/09/19 12:10 114 18 144/65 (91) 100 07/09/19 12:05 121 18 138/66 (90) 100 07/09/19 12:00 98.4 100 18 124/67 (86) 98 07/09/19 12:00 118 22 148/70 (96) 100 07/09/19 11:55 114 18 137/58 (84) 100 07/09/19 11:50 114 20 158/62 (94) 100 07/09/19 11:46 113 18 3.0 07/09/19 11:45 113 20 143/68 (93) 100 07/09/19 09:00 Nasal Cannula 2.0 Nasal Cannula 2.0 07/09/19 08:00 98.1 112 19 136/72 (93) 97 07/09/19 07:20 100 Nasal Cannula 2.0 28 07/09/19 07:20 106 20 100 Nasal Cannula 2.0 28 07/09/19 04:00 97.2 100 19 115/65 (82) 98 07/09/19 00:00 97.9 100 21 139/78 (98) 94 07/08/19 21:13 Nasal Cannula 2.0 Nasal Cannula 2.0 07/08/19 20:00 98.2 98 21 134/74 (94) 100 07/08/19 19:58 98 20 100 Nasal Cannula 2.0 28 07/08/19 19:58 100 Nasal Cannula 2.0 28 07/08/19 16:00 98.7 104 20 121/64 (83) 100 07/08/19 12:00 98.2 114 23 90/68 (75) 98 07/08/19 09:00 Nasal Cannula 2.0 Nasal Cannula 2.0 07/08/19 07:42 98 Nasal Cannula 2.0 28 07/08/19 07:41 104 20 98 Nasal Cannula 2.0 28 Intake and Output 07/09/19 07/10/19 19:00 07:00 Intake Total 40 ml 530 ml Output Total 800 ml 400 ml Balance -760 ml 130 ml Free Water 90 ml Tube Feeding 40 ml 440 ml Output Urine Total 800 ml 400 ml Labs Test 07/08/19 05:10 07/09/19 07:52 07/10/19 05:45 Sodium Level 142 MMOL/L (136-145) 144 MMOL/L (136-145) Potassium Level 3.9 MMOL/L (3.5-5.1) 3.8 MMOL/L (3.5-5.1) Chloride Level 103 MMOL/L (98-107) 106 MMOL/L (98-107) Carbon Dioxide Level 23 MMOL/L (21-32) 25 MMOL/L (21-32) Anion Gap 17 mmol/L (5-15) 13 mmol/L (5-15) Blood Urea Nitrogen 99 mg/dL (7-18) 70 mg/dL (7-18) Creatinine 4.9 MG/DL (0.55-1.30) 3.4 MG/DL (0.55-1.30) Estimat Glomerular Filtration Rate 10.2 mL/min (>60) 15.5 mL/min (>60) Glucose Level 127 MG/DL (74-106) 128 MG/DL (74-106) Calcium Level 9.3 MG/DL (8.5-10.1) 9.8 MG/DL (8.5-10.1) Total Bilirubin 0.6 MG/DL (0.2-1.0) 0.8 MG/DL (0.2-1.0) Direct Bilirubin 0.2 MG/DL (0.0-0.3) Aspartate Amino Transf (AST/SGOT) 43 U/L (15-37) 36 U/L (15-37) Alanine Aminotransferase (ALT/SGPT) 43 U/L (12-78) 37 U/L (12-78) Alkaline Phosphatase 74 U/L (46-116) 75 U/L (46-116) Total Protein 5.4 G/DL (6.4-8.2) 6.5 G/DL (6.4-8.2) Albumin 2.9 G/DL (3.4-5.0) 3.6 G/DL (3.4-5.0) Globulin 2.9 g/dL 2.9 g/dL Albumin/Globulin Ratio 1.0 (1.0-2.7) 1.2 (1.0-2.7) White Blood Count 10.6 K/UL (4.8-10.8) 9.9 K/UL (4.8-10.8) Red Blood Count 2.12 M/UL (4.20-5.40) 3.36 M/UL (4.20-5.40) Hemoglobin 6.3 G/DL (12.0-16.0) 10.4 G/DL (12.0-16.0) Hematocrit 19.4 % (37.0-47.0) 30.2 % (37.0-47.0) Mean Corpuscular Volume 92 FL (80-99) 90 FL (80-99) Mean Corpuscular Hemoglobin 29.6 PG (27.0-31.0) 30.9 PG (27.0-31.0) Mean Corpuscular Hemoglobin Concent 32.3 G/DL (32.0-36.0) 34.3 G/DL (32.0-36.0) Red Cell Distribution Width 14.4 % (11.6-14.8) 13.3 % (11.6-14.8) Platelet Count 329 K/UL (150-450) 297 K/UL (150-450) Mean Platelet Volume 6.7 FL (6.5-10.1) 7.2 FL (6.5-10.1) Neutrophils (%) (Auto) % (45.0-75.0) 78.9 % (45.0-75.0) Lymphocytes (%) (Auto) % (20.0-45.0) 10.4 % (20.0-45.0) Monocytes (%) (Auto) % (1.0-10.0) 9.3 % (1.0-10.0) Eosinophils (%) (Auto) % (0.0-3.0) 1.1 % (0.0-3.0) Basophils (%) (Auto) % (0.0-2.0) 0.4 % (0.0-2.0) Differential Total Cells Counted 100 Neutrophils % (Manual) 85 % (45-75) Lymphocytes % (Manual) 9 % (20-45) Monocytes % (Manual) 5 % (1-10) Eosinophils % (Manual) 1 % (0-3) Basophils % (Manual) 0 % (0-2) Band Neutrophils 0 % (0-8) Platelet Estimate Adequate Platelet Morphology Normal Hypochromasia 1+ Height (Feet): 5 Height (Inches): 3.00 Weight (Pounds): 139 Objective Physical Exam: Vitals: reviewed General: NAD, groans to pain stimuli HEENT: nc, at Neck: supple Chest: clear breath sounds bilaterally Cardiovascular: RRR, no s3, s4 Abdomen: soft, nontender, nd++ peg Extremities: no cce, normal range of motion Neuro: alert and oriented Skin: other - pressure sores to right side Bola Aldridge MD Jul 10, 2019 06:49
[2019-07-10 06:52] LABS: ANION GAP 16 mmol/L (5-15); BLOOD UREA NITROGEN 110 mg/dL (7-18); CALCIUM 10.4 MG/DL (8.5-10.1); CARBON DIOXIDE 25 MMOL/L (21-32); CHLORIDE 111 MMOL/L (98-107); POTASSIUM 3.8 MMOL/L (3.5-5.1); SODIUM 152 MMOL/L (136-145)
[2019-07-10 08:00] VITALS: BP 150/85
--- NOTE | 2019-07-10 08:24 | General Progress Note ---
Assessment/Plan Problem List: (1) KAREN (acute kidney injury) ICD Codes: N17.9 - Acute kidney failure, unspecified SNOMED: 8402976, 81914379 (2) Altered level of consciousness ICD Codes: R40.4 - Transient alteration of awareness SNOMED: 9106603 Status: stable Assessment/Plan: dysphagia elevated LFTS pancreatitis based on elevated lipase fatty liver ESRD pancreatic cyst anemia stool ob positive GTF repeat labs abx per ID CT reviewed improving LFTS, wbc and lipase abx per ID HD per nephrology s/p blood transfusion pending placement Subjective ROS Limited/Unobtainable: No Allergies: Coded Allergies: No Known Allergies (Unverified , 06/24/19) Objective Last 24 Hour Vital Signs Date Time Temp Pulse Resp B/P (MAP) Pulse Ox O2 Delivery O2 Flow Rate FiO2 07/10/19 04:00 97.8 101 20 140/72 (94) 99 07/10/19 00:00 97.3 108 20 149/86 (107) 100 07/09/19 21:30 98.8 106 20 151/67 (95) 98 07/09/19 21:00 Nasal Cannula 2.0 Nasal Cannula 2.0 07/09/19 20:00 99.0 105 20 131/67 (88) 98 07/09/19 16:00 99.3 107 20 127/59 (81) 100 07/09/19 12:10 114 18 144/65 (91) 100 07/09/19 12:05 121 18 138/66 (90) 100 07/09/19 12:00 98.4 100 18 124/67 (86) 98 07/09/19 12:00 118 22 148/70 (96) 100 07/09/19 11:55 114 18 137/58 (84) 100 07/09/19 11:50 114 20 158/62 (94) 100 07/09/19 11:46 113 18 3.0 07/09/19 11:45 113 20 143/68 (93) 100 07/09/19 09:00 Nasal Cannula 2.0 Nasal Cannula 2.0 Intake and Output 07/09/19 07/10/19 19:00 07:00 Intake Total 40 ml 530 ml Output Total 800 ml 400 ml Balance -760 ml 130 ml Free Water 90 ml Tube Feeding 40 ml 440 ml Output Urine Total 800 ml 400 ml Laboratory Tests 07/10/19 05:45: White Blood Count 9.9, Red Blood Count 3.36L, Hemoglobin 10.4#L, Hematocrit 30.2 #L, Mean Corpuscular Volume 90, Mean Corpuscular Hemoglobin 30.9, Mean Corpuscular Hemoglobin Concent 34.3, Red Cell Distribution Width 13.3, Platelet Count 297, Mean Platelet Volume 7.2, Neutrophils (%) (Auto) 78.9H, Lymphocytes ( %) (Auto) 10.4L, Monocytes (%) (Auto) 9.3, Eosinophils (%) (Auto) 1.1, Basophils (%) (Auto) 0.4, Sodium Level 152H, Potassium Level 3.8, Chloride Level 111H, Carbon Dioxide Level 25, Anion Gap 16H, Blood Urea Nitrogen 110H, Creatinine 4.0H, Estimat Glomerular Filtration Rate 12.7, Glucose Level 168H, Calcium Level 10.4H Height (Feet): 5 Height (Inches): 3.00 Weight (Pounds): 139 General Appearance: no apparent distress EENT: normal ENT inspection Neck: supple Cardiovascular: normal rate Respiratory/Chest: decreased breath sounds Abdomen: normal bowel sounds, non tender, soft Extremities: non-tender Jun Mena MD Jul 10, 2019 08:24
--- NOTE | 2019-07-10 09:17 | Urology Progress Note ---
Assessment/Plan Status: stable Assessment/Plan: 1. Gross hematuria, improving. 2. End-stage renal disease. 3. Urinary retention. 4. Possible neurogenic bladder. 5. Urinary tract infection and colonization. 6. Proteinuria. 7. Acute kidney injury history. monitor clinically hargrove hand irrigated and do PRN s/p abx, diflucan added HD per nephrology cysto later d/w nursing staff Subjective Allergies: Coded Allergies: No Known Allergies (Unverified , 06/24/19) Subjective all noted, looks comfortable Objective Last 24 Hour Vital Signs Date Time Temp Pulse Resp B/P (MAP) Pulse Ox O2 Delivery O2 Flow Rate FiO2 07/10/19 08:00 98.3 114 20 150/85 (106) 99 07/10/19 04:00 97.8 101 20 140/72 (94) 99 07/10/19 00:00 97.3 108 20 149/86 (107) 100 07/09/19 21:30 98.8 106 20 151/67 (95) 98 07/09/19 21:00 Nasal Cannula 2.0 Nasal Cannula 2.0 07/09/19 20:00 99.0 105 20 131/67 (88) 98 07/09/19 16:00 99.3 107 20 127/59 (81) 100 07/09/19 12:10 114 18 144/65 (91) 100 07/09/19 12:05 121 18 138/66 (90) 100 07/09/19 12:00 98.4 100 18 124/67 (86) 98 07/09/19 12:00 118 22 148/70 (96) 100 07/09/19 11:55 114 18 137/58 (84) 100 07/09/19 11:50 114 20 158/62 (94) 100 07/09/19 11:46 113 18 3.0 07/09/19 11:45 113 20 143/68 (93) 100 Intake and Output 07/09/19 07/10/19 19:00 07:00 Intake Total 40 ml 530 ml Output Total 800 ml 400 ml Balance -760 ml 130 ml Free Water 90 ml Tube Feeding 40 ml 440 ml Output Urine Total 800 ml 400 ml Microbiology Date/Time Source Procedure Growth Status 06/29/19 14:25 Blood Blood Culture - Final NO GROWTH AFTER 5 DAYS Complete 06/30/19 18:00 Stool Clostridium difficile Toxin Assay - Final Complete 07/04/19 18:29 Urine,Clean Catch Urine Culture - Final Melanie Albicans Complete Current Medications Medications (Trade) Dose Ordered Sig/Joan Route PRN Reason Start Time Stop Time Status Last Admin Dose Admin Acetaminophen (Tylenol) 650 mg Q4H PRN NG Mild Pain/Temp > 100.5 07/04/19 20:30 08/01/19 12:29 Acetylcysteine (Mucomyst) 100 mg Q4H PRN HHN Shortness of Breath 07/04/19 18:00 08/03/19 17:59 Albumin Human 100 ml @ 100 mls/hr NEEDED PRN IV DIALYSIS 07/04/19 19:00 08/03/19 18:59 07/06/19 01:30 Chlorhexidine Gluconate (Cari-Hex 2%) 1 applic DAILY@2000 TOPIC 07/04/19 20:00 07/26/19 19:59 07/09/19 20:20 Dextrose (Dextrose 50%) 25 ml Q30M PRN IV Hypoglycemia 07/04/19 20:00 07/24/19 19:51 Dextrose (Dextrose 50%) 50 ml Q30M PRN IV Hypoglycemia 07/04/19 20:00 07/24/19 19:51 Diphenhydramine HCl (Benadryl) 25 mg Q6H PRN ORAL Itching/Pruritis 07/04/19 20:00 07/24/19 19:51 Epoetin Dion (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)) 6,000 unit MON-MON-MON SUBQ 07/08/19 21:00 08/07/19 20:59 07/08/19 20:25 Fluconazole (Diflucan) 100 mg DAILY ORAL 07/08/19 09:00 07/12/19 08:59 07/09/19 09:42 Furosemide (Lasix) 40 mg DAILY IV 07/05/19 09:00 07/30/19 19:59 07/09/19 09:42 Gabapentin (Neurontin) 300 mg BID GT 07/05/19 09:00 08/01/19 17:59 07/09/19 18:59 Haloperidol Lactate (Haldol) 5 mg Q6H PRN IM Agitation 07/06/19 01:45 08/20/19 01:44 Ondansetron HCl (Zofran) 4 mg Q4H PRN IVP Nausea & Vomiting 07/04/19 20:00 08/02/19 19:59 Pantoprazole (Protonix) 40 mg DAILY IVP 07/05/19 09:00 07/30/19 08:59 07/09/19 09:43 Laboratory Tests 07/10/19 05:45: White Blood Count 9.9, Red Blood Count 3.36L, Hemoglobin 10.4#L, Hematocrit 30.2 #L, Mean Corpuscular Volume 90, Mean Corpuscular Hemoglobin 30.9, Mean Corpuscular Hemoglobin Concent 34.3, Red Cell Distribution Width 13.3, Platelet Count 297, Mean Platelet Volume 7.2, Neutrophils (%) (Auto) 78.9H, Lymphocytes ( %) (Auto) 10.4L, Monocytes (%) (Auto) 9.3, Eosinophils (%) (Auto) 1.1, Basophils (%) (Auto) 0.4, Sodium Level 152H, Potassium Level 3.8, Chloride Level 111H, Carbon Dioxide Level 25, Anion Gap 16H, Blood Urea Nitrogen 110H, Creatinine 4.0H, Estimat Glomerular Filtration Rate 12.7, Glucose Level 168H, Calcium Level 10.4H Height (Feet): 5 Height (Inches): 3.00 Weight (Pounds): 139 Objective exam stable hargrove indwelling urine blood-tinged/neal Bamshad,Omar Tillman MD Jul 10, 2019 09:17
--- NOTE | 2019-07-10 09:40 | Pulmonology Progress Note ---
Assessment/Plan Assessment/Plan IMPRESSION: 1. Extensive left lung pneumonia. Latest CXR shows significant clearing 2. Pulmonary edema. 3. Respiratory failure; now off BiPAP DISCUSSION: Continue antibiotics per ID Dialysis per renal; noted plans for permacath Use BiPAP prn. Supplemental O2. I will continue to follow carefully. Abrahan Samaniego M.D. Subjective Interval Events: None new Constitutional: Reports: no symptoms HEENT: Repors: no symptoms Respiratory: Reports: no symptoms Cardiovascular: Reports: no symptoms Gastrointestinal/Abdominal: Reports: no symptoms Genitourinary: Reports: no symptoms Allergies: Coded Allergies: No Known Allergies (Unverified , 06/24/19) Objective Last 24 Hour Vital Signs Date Time Temp Pulse Resp B/P (MAP) Pulse Ox O2 Delivery O2 Flow Rate FiO2 07/10/19 08:00 98.3 114 20 150/85 (106) 99 07/10/19 04:00 97.8 101 20 140/72 (94) 99 07/10/19 00:00 97.3 108 20 149/86 (107) 100 07/09/19 21:30 98.8 106 20 151/67 (95) 98 07/09/19 21:00 Nasal Cannula 2.0 Nasal Cannula 2.0 07/09/19 20:00 99.0 105 20 131/67 (88) 98 07/09/19 16:00 99.3 107 20 127/59 (81) 100 07/09/19 12:10 114 18 144/65 (91) 100 07/09/19 12:05 121 18 138/66 (90) 100 07/09/19 12:00 98.4 100 18 124/67 (86) 98 07/09/19 12:00 118 22 148/70 (96) 100 07/09/19 11:55 114 18 137/58 (84) 100 07/09/19 11:50 114 20 158/62 (94) 100 07/09/19 11:46 113 18 3.0 07/09/19 11:45 113 20 143/68 (93) 100 Intake and Output 07/09/19 07/10/19 19:00 07:00 Intake Total 40 ml 530 ml Output Total 800 ml 400 ml Balance -760 ml 130 ml Free Water 90 ml Tube Feeding 40 ml 440 ml Output Urine Total 800 ml 400 ml General Appearance: no acute distress HEENT: normocephalic Respiratory/Chest: chest wall non-tender Cardiovascular: normal peripheral pulses Abdomen: normal bowel sounds Extremities: no cyanosis Laboratory Tests 07/10/19 05:45: White Blood Count 9.9, Red Blood Count 3.36L, Hemoglobin 10.4#L, Hematocrit 30.2 #L, Mean Corpuscular Volume 90, Mean Corpuscular Hemoglobin 30.9, Mean Corpuscular Hemoglobin Concent 34.3, Red Cell Distribution Width 13.3, Platelet Count 297, Mean Platelet Volume 7.2, Neutrophils (%) (Auto) 78.9H, Lymphocytes ( %) (Auto) 10.4L, Monocytes (%) (Auto) 9.3, Eosinophils (%) (Auto) 1.1, Basophils (%) (Auto) 0.4, Sodium Level 152H, Potassium Level 3.8, Chloride Level 111H, Carbon Dioxide Level 25, Anion Gap 16H, Blood Urea Nitrogen 110H, Creatinine 4.0H, Estimat Glomerular Filtration Rate 12.7, Glucose Level 168H, Calcium Level 10.4H Current Medications Medications (Trade) Dose Ordered Sig/Joan Route PRN Reason Start Time Stop Time Status Last Admin Dose Admin Acetaminophen (Tylenol) 650 mg Q4H PRN NG Mild Pain/Temp > 100.5 07/04/19 20:30 08/01/19 12:29 Acetylcysteine (Mucomyst) 100 mg Q4H PRN HHN Shortness of Breath 07/04/19 18:00 08/03/19 17:59 Albumin Human 100 ml @ 100 mls/hr NEEDED PRN IV DIALYSIS 07/04/19 19:00 08/03/19 18:59 07/06/19 01:30 Chlorhexidine Gluconate (Cari-Hex 2%) 1 applic DAILY@2000 TOPIC 07/04/19 20:00 07/26/19 19:59 07/09/19 20:20 Dextrose (Dextrose 50%) 25 ml Q30M PRN IV Hypoglycemia 07/04/19 20:00 07/24/19 19:51 Dextrose (Dextrose 50%) 50 ml Q30M PRN IV Hypoglycemia 07/04/19 20:00 07/24/19 19:51 Diphenhydramine HCl (Benadryl) 25 mg Q6H PRN ORAL Itching/Pruritis 07/04/19 20:00 07/24/19 19:51 Epoetin Dion (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)) 6,000 unit SUBQ 07/08/19 21:00 08/07/19 20:59 07/08/19 20:25 Fluconazole (Diflucan) 100 mg DAILY ORAL 07/08/19 09:00 07/12/19 08:59 07/09/19 09:42 Furosemide (Lasix) 40 mg DAILY IV 07/05/19 09:00 07/30/19 19:59 07/09/19 09:42 Gabapentin (Neurontin) 300 mg BID GT 07/05/19 09:00 08/01/19 17:59 07/09/19 18:59 Haloperidol Lactate (Haldol) 5 mg Q6H PRN IM Agitation 07/06/19 01:45 08/20/19 01:44 Ondansetron HCl (Zofran) 4 mg Q4H PRN IVP Nausea & Vomiting 07/04/19 20:00 08/02/19 19:59 Pantoprazole (Protonix) 40 mg DAILY IVP 07/05/19 09:00 07/30/19 08:59 07/09/19 09:43 Abrahan Samaniego MD Jul 10, 2019 09:40
[2019-07-10] MEDS: Fluconazole 100mg tab ORAL SCH (09:55)
[2019-07-10] MEDS: Gabapentin 300 MG/6 ML Soln GT SCH ×2 (09:55→17:13)
[2019-07-10] MEDS: Pantoprazole Inj IVP SCH (09:56)
--- NOTE | 2019-07-10 11:27 | Nephrology Progress Note ---
Assessment/Plan Plan #acute renal failure on possible CKD- due to rhabdo- UA with + RBC- concerns for developing ATN #Uremia #complete opacification of the left hemithorax- likely aspiration pneumonia #lactic acidosis #Hypernatremia- improved #AMS #elevated liver enzyme - HD today- low sodium bath - permacath 07/08 - set up outapatient HD at renal - case management notified - epogen 6k TIW - DC lasix - monitor UOP - PEG 07/04 - pulmonary eval - on room air now - renal US-> No obstructive nephropathy. - monitor liver enzymes and lipase - Gi eval Subjective Subjective permcath placed yesterday plan fro HD today BP stable s/p one unit of prbc hemoglobin stable CT chest: Extensive airspace consolidation in the left lung involving the left perihilar, upper lobe and left lower lobe. Findings suspicious for pneumonia, especially aspiration given the abrupt onset. Please correlate clinically. Partial atelectasis of the left lower lobe also noted Objective Objective Last 24 Hour Vital Signs Date Time Temp Pulse Resp B/P (MAP) Pulse Ox O2 Delivery O2 Flow Rate FiO2 07/10/19 09:00 Nasal Cannula 2.0 Nasal Cannula 2.0 07/10/19 08:00 98.3 114 20 150/85 (106) 99 07/10/19 04:00 97.8 101 20 140/72 (94) 99 07/10/19 00:00 97.3 108 20 149/86 (107) 100 07/09/19 21:30 98.8 106 20 151/67 (95) 98 07/09/19 21:00 Nasal Cannula 2.0 Nasal Cannula 2.0 07/09/19 20:00 99.0 105 20 131/67 (88) 98 07/09/19 16:00 99.3 107 20 127/59 (81) 100 07/09/19 12:10 114 18 144/65 (91) 100 07/09/19 12:05 121 18 138/66 (90) 100 07/09/19 12:00 98.4 100 18 124/67 (86) 98 07/09/19 12:00 118 22 148/70 (96) 100 07/09/19 11:55 114 18 137/58 (84) 100 07/09/19 11:50 114 20 158/62 (94) 100 07/09/19 11:46 113 18 3.0 07/09/19 11:45 113 20 143/68 (93) 100 Intake and Output 07/09/19 07/10/19 19:00 07:00 Intake Total 40 ml 530 ml Output Total 800 ml 400 ml Balance -760 ml 130 ml Free Water 90 ml Tube Feeding 40 ml 440 ml Output Urine Total 800 ml 400 ml Laboratory Tests 07/10/19 05:45: White Blood Count 9.9, Red Blood Count 3.36L, Hemoglobin 10.4#L, Hematocrit 30.2 #L, Mean Corpuscular Volume 90, Mean Corpuscular Hemoglobin 30.9, Mean Corpuscular Hemoglobin Concent 34.3, Red Cell Distribution Width 13.3, Platelet Count 297, Mean Platelet Volume 7.2, Neutrophils (%) (Auto) 78.9H, Lymphocytes ( %) (Auto) 10.4L, Monocytes (%) (Auto) 9.3, Eosinophils (%) (Auto) 1.1, Basophils (%) (Auto) 0.4, Sodium Level 152H, Potassium Level 3.8, Chloride Level 111H, Carbon Dioxide Level 25, Anion Gap 16H, Blood Urea Nitrogen 110H, Creatinine 4.0H, Estimat Glomerular Filtration Rate 12.7, Glucose Level 168H, Calcium Level 10.4H Height (Feet): 5 Height (Inches): 3.00 Weight (Pounds): 139 Objective General Appearance: lethargic, confused, on bipap Lines, tubes and drains: peripheral HEENT: normocephalic, atraumatic Neck: non-tender Respiratory/Chest: minimal breath sounds on the left Cardiovascular/Chest: normal peripheral pulses, normal rate, regular rhythm, regularly irregular Abdomen: non tender, soft Rory Oconnor M.D. Jul 10, 2019 11:27
[2019-07-10 12:00] VITALS: BP 158/81
[2019-07-10] MEDS ORDERED: Guaifenesin/DM 10ml syrup ORAL PRN (12:37)
[2019-07-10] MEDS ORDERED: NS 275ml ONE (12:46)
[2019-07-10] MEDS ORDERED: Tubing IV Secondary IV ONE (12:46)
--- NOTE | 2019-07-10 12:52 | General Progress Note ---
Assessment/Plan Status: stable Assessment/Plan: #Rhabdomyolosis #KAREN #Acute renal failure - on HD UF #Uremic encephalopathy #Anion gap metabolic acidosis #Lactic acidosis -resolved -Nephrology following for HD -S/p permacath placement -Awaiting outpatient HD #Acute anemia -S/p 2 units PRBC on 07/08, H&H improved -monitor CBC #Left lung PNA - likely aspiration #Acute hypoxic respiratory failure s/p BiPAP - improved #Strep Viridans bacteremia #Worsening Leukocytosis #loose stools Noted to be acutely hypoxic on early AM of 06/25 -s/p BiPAP -> NC/room air intermittently -CT chest, CXR with left lung infiltrate. -ABG prn. -Pulmonology following -echo negative for vegetations -CXR 06/28: Bilateral interstitial thickening and patchy airspace opacities in the left lung, similar to prior study given differences in technique. -ID following - Off abx -Repeat stool C. diff #Dysphagia -s/p PEG -cont tube feeds #L1 vertebral fracture - likely old seen on imaging, likely old. -reassurance provided to family. #Transaminitis #Acute pancreatitis ?from dehydration, abd exam benign. -continue to trend LFT's, numbers improving -GI following #Type 2 NSTEMI likely demand in setting of renal failure. EKG wnl. -no need to trend. -cardiology consulted - pt will need stress test prior to d/c #Pressure wounds. Time spent: 36 mins, >50% on coordination of care and chart review. Subjective Date patient seen: Jul 10, 2019 Time patient seen: 12:00 ROS Limited/Unobtainable: Yes Allergies: Coded Allergies: No Known Allergies (Unverified , 06/24/19) Subjective Follow up for KAREN, acute pancreatitis, rhabdo, strep bacteremia S/p 2 unit RBC yesterday with improvement in H&H Diarrhea reported by nursing. Objective Last 24 Hour Vital Signs Date Time Temp Pulse Resp B/P (MAP) Pulse Ox O2 Delivery O2 Flow Rate FiO2 07/10/19 12:00 97.9 105 20 158/81 (106) 99 07/10/19 09:00 Nasal Cannula 2.0 Nasal Cannula 2.0 07/10/19 08:00 98.3 114 20 150/85 (106) 99 07/10/19 04:00 97.8 101 20 140/72 (94) 99 07/10/19 00:00 97.3 108 20 149/86 (107) 100 07/09/19 21:30 98.8 106 20 151/67 (95) 98 07/09/19 21:00 Nasal Cannula 2.0 Nasal Cannula 2.0 07/09/19 20:00 99.0 105 20 131/67 (88) 98 07/09/19 16:00 99.3 107 20 127/59 (81) 100 Intake and Output 07/09/19 07/10/19 19:00 07:00 Intake Total 40 ml 570 ml Output Total 800 ml 400 ml Balance -760 ml 170 ml Free Water 90 ml Tube Feeding 40 ml 480 ml Output Urine Total 800 ml 400 ml Laboratory Tests 07/10/19 05:45: White Blood Count 9.9, Red Blood Count 3.36L, Hemoglobin 10.4#L, Hematocrit 30.2 #L, Mean Corpuscular Volume 90, Mean Corpuscular Hemoglobin 30.9, Mean Corpuscular Hemoglobin Concent 34.3, Red Cell Distribution Width 13.3, Platelet Count 297, Mean Platelet Volume 7.2, Neutrophils (%) (Auto) 78.9H, Lymphocytes ( %) (Auto) 10.4L, Monocytes (%) (Auto) 9.3, Eosinophils (%) (Auto) 1.1, Basophils (%) (Auto) 0.4, Sodium Level 152H, Potassium Level 3.8, Chloride Level 111H, Carbon Dioxide Level 25, Anion Gap 16H, Blood Urea Nitrogen 110H, Creatinine 4.0H, Estimat Glomerular Filtration Rate 12.7, Glucose Level 168H, Calcium Level 10.4H Height (Feet): 5 Height (Inches): 3.00 Weight (Pounds): 139 General Appearance: lethargic, confused Cardiovascular: normal rate, regular rhythm Respiratory/Chest: lungs clear, normal breath sounds Abdomen: non tender, soft Oumar Foy MD Jul 10, 2019 12:52
--- NOTE | 2019-07-10 13:19 | Surgery Progress Note ---
Surgery Progress Note Subjective Procedure Performed Left femoral temporary hemodialysis catheter insertion Additional Comments improved family at bedside discussed care plan in detail line removed dressings applied now with tunneled cath Objective Last 24 Hour Vital Signs Date Time Temp Pulse Resp B/P (MAP) Pulse Ox O2 Delivery O2 Flow Rate FiO2 07/10/19 12:00 97.9 105 20 158/81 (106) 99 07/10/19 09:00 Nasal Cannula 2.0 Nasal Cannula 2.0 07/10/19 08:00 98.3 114 20 150/85 (106) 99 07/10/19 04:00 97.8 101 20 140/72 (94) 99 07/10/19 00:00 97.3 108 20 149/86 (107) 100 07/09/19 21:30 98.8 106 20 151/67 (95) 98 07/09/19 21:00 Nasal Cannula 2.0 Nasal Cannula 2.0 07/09/19 20:00 99.0 105 20 131/67 (88) 98 07/09/19 16:00 99.3 107 20 127/59 (81) 100 I&O Intake and Output 07/09/19 07/10/19 19:00 07:00 Intake Total 40 ml 570 ml Output Total 800 ml 400 ml Balance -760 ml 170 ml Free Water 90 ml Tube Feeding 40 ml 480 ml Output Urine Total 800 ml 400 ml Dressing: dry Wound: clean Cardiovascular: RSR Respiratory: clear Abdomen: soft, non-tender, present bowel sounds Extremities: no edema, no tenderness, no cyanosis Laboratory Tests Test 07/10/19 05:45 White Blood Count 9.9 K/UL (4.8-10.8) Red Blood Count 3.36 M/UL (4.20-5.40) L Hemoglobin 10.4 G/DL (12.0-16.0) #L Hematocrit 30.2 % (37.0-47.0) #L Mean Corpuscular Volume 90 FL (80-99) Mean Corpuscular Hemoglobin 30.9 PG (27.0-31.0) Mean Corpuscular Hemoglobin Concent 34.3 G/DL (32.0-36.0) Red Cell Distribution Width 13.3 % (11.6-14.8) Platelet Count 297 K/UL (150-450) Mean Platelet Volume 7.2 FL (6.5-10.1) Neutrophils (%) (Auto) 78.9 % (45.0-75.0) H Lymphocytes (%) (Auto) 10.4 % (20.0-45.0) L Monocytes (%) (Auto) 9.3 % (1.0-10.0) Eosinophils (%) (Auto) 1.1 % (0.0-3.0) Basophils (%) (Auto) 0.4 % (0.0-2.0) Sodium Level 152 MMOL/L (136-145) H Potassium Level 3.8 MMOL/L (3.5-5.1) Chloride Level 111 MMOL/L (98-107) H Carbon Dioxide Level 25 MMOL/L (21-32) Anion Gap 16 mmol/L (5-15) H Blood Urea Nitrogen 110 mg/dL (7-18) H Creatinine 4.0 MG/DL (0.55-1.30) H Estimat Glomerular Filtration Rate 12.7 mL/min (>60) Glucose Level 168 MG/DL (74-106) H Calcium Level 10.4 MG/DL (8.5-10.1) H Plan Problems: (1) Fall Assessment & Plan: 88 year old female s/p fall now with renal insufficiency requiring HD spoke with family. she has known CKD multiple decubitus ulcers from being down malnutrition line placed see documentation trend labs abx HD thank you prognosis guarded family at bedside cxr noted pna worsening R cheek pressure injury resolved. Unstageable pressure injury R shoulder now has 90% necrosis,surrounding 10% pink granulation(L()4.1cm x (W)3.3cm. No odor or exudate noted.No erythema or induration periwound. Reabsorbed DTPI R Humerus. Base of wound is dry,brown with pink epithelial at the distal base of wound(L)9.4cm x (W)3.1cm. DTPI R elbow has resolved. Scattered dry brown peeling skin noted. No erythema noted. DTPI sacrum less indurated (L)4.5cm x (W)6cm. Small opening at marco a cleft that is corby and moist(L)1.5cm x (W)0.3cm. No exudate noted. L ischial DTPI reabsorbed(L)6cm x (W)7cm. Base of injury black. No erythema or evidence of further breakdown periwound. Unstageable pressure injury R hip(L)8.9cm x (W)14.2cm. Base of wound has 50% slough ,25% soft necrosis, 25% pink granulation along borders.Edges adherent to base of wound. No odor or exudate noted. DTPI medial/posterior L heel reabsorbed. Base of injury is boggy but blanchable. Unstageable Pressure Injury L Hallux resolving.(L)4.3cm x (W)3.7cm. Base of wound is 60% necrotic,10% slough with surrounding 30% pink granulation. Marginal erythema periwound. Small amt purulent exudate noted. No odor noted. DTPI medial L malleolus reabsorbed. Dry brown patch noted. Reabsorbed blood blisters L 1st,2nd and 3rd metatarsals. Dry brown patches noted dorsally all 3 metatarsals. R heel DTPI resolving. R heel is boggy but blanchable. Unstageable pressure injury lateral R malleolus. Base of wound has scattered slough. Borders are macerated with marginal erythema periwound.(L)0.7cm x (W) 1.3cm. No erythema or fluctuance periwound. DTPI distal/lateral R foot resolving. Base of injury is maroon /fluctuant. No erythema or induration periwound. DTPI lateral R 5th metatarsal resolved. Wound care provided. Wound Tx are effective and continued as ordered. All wound prevention protocols continued as care-planned. Family member at bedside and updated on wound progress. DAILY ESTIMATED NEEDS: Needs based on Wounds, 51.8kg 30-35 kcals/kg 1508-0763 total kcals 1.25-1.5 g protein/kg 65-78 g total protein 25-30ml/kcal mL/kg 0656-5012 total fluid mLs NUTRITION DIAGNOSIS: * Increased kcal and pro needs r/t wound healing and renal failure as evidenced by, s/p fall w/ pressure wounds per MD, refer to WC eval, ARF needing HD. * Swallowing difficulty R/T dysphagia as evidenced by s/p NGT placement, plan for PEG placement w/ consent and medical clearance, TF held for possible pancreatitis. CURRENT TF:NPO- TF HELD FOR POSSIBLE PANCREATITIS ENTERAL NUTRITION RECOMMENDATIONS: NEPRO @36ml/hr x24 hrs to provide 864ml, 1555 kcal, 70g pro, 628ml free H2O free H2O - As medically appropriate, resume TF - Start @16ml/hr for 8 hrs, advance as tolerated 5ml/hr q4-6 hrs to goal. - Flush per MD/ HOB Over 30 degrees - PT AT HIGH RISK FOR REFEEDING SYNDROME, MONITOR LYTES DAILY, REPLETE NEEDED ADDITIONAL RECOMMENDATIONS: 1) Monitor ability to resume TF NGT feeds held 06/30 for possible pancreatitis. If unable to feed via GI, consider initiating TPN due to proloned NPO, minimal intake status 2) WOUND CARE: W/ active TF order add VASQUEZ in 4oz H2O BID 3) Rec added dextrose when NPO 4) Calibrated bed scale wts daily 5) Monitor lytes closely w/ TF- high risk for refeeding syndrome (2) Altered level of consciousness (3) Fracture of lumbar spine Assessment & Plan: Lungs: There is increased density at the lung bases likely atelectasis. Aorta is moderately calcified. There is a small hiatal hernia.. Liver: Grossly unremarkable. There is artifact limiting evaluation in addition to the fact that no IV or oral contrast was given for this examination. Gallbladder/biliary system: Grossly unremarkable. Spleen: Unremarkable Pancreas: In the area of the pancreatic tail there is a 1.6 cm nodular density which may be cystic. Further evaluation is recommended. Kidneys/Bladder: Vascular calcifications are quite extensive and extend to the hilum of both kidneys. Evaluation for punctate nonobstructive stones is limited in this setting but no definite stones seen. There is no hydronephrosis. Extensive breathing motion limiting evaluation.. Adrenal glands: Unremarkable Bowel: Patient's prior partial bowel resection in the right lower abdomen with anastomotic sutures noted. There is no evidence of a bowel obstruction or inflammatory changes. Appendix is not seen definitely but there are no signs of appendicitis. A few diverticula are noted within the colon. Aorta/IVC: There is a severe calcification of aorta and multiple branches of the aorta. Peritoneum: There is no free fluid. Bones: Bones are diffusely osteopenic. Multiple compression fracture deformities of several vertebra noted including lower thoracic vertebra and L1. There is narrowing of intervertebral discs and accompanying endplate osteophyte formation. Hypertrophied facet joints also demonstrated. Scoliosis of the lower thoracic spine convex to the right and left convex lumbar scoliosis noted. IMPRESSION: No acute findings appreciated. Study limited by the lack of intravenous oral contrast as well as extensive motion artifact. 1.6 cm probable cystic lesion in the pancreatic tail. This requires further evaluation with the contrast CT or MR. Status post previous partial bowel resection. 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 Degenerative changes as described above. (4) Rhabdomyolysis (5) KAREN (acute kidney injury) (6) Decubitus skin ulcer Assessment & Plan: Pt presented on admission with multiple pressure injuries. Pt's niece Sarah stated pt lives alone and found pt laying on her R side on floor in patient's home.Niece believes pt has been laying on floor for approx 5 days. DTPI noted to R cheek. Base of wound is purple with marginal erythema along borders.(L)1.2cm x (W)1.6cm. Unstageable pressure injury R shoulder. Base of wound is 100% necrotic with marginal erythema along borders.(L)4.8cm x (W).3.5cm . DTPI R humerus. Base of wound is fluctuant and maroon in colour with surrounding erythema. (L)10.6cm x (W)3.1cm. DTPI R elbow.Base of wound is indurated with scattered areas that are purple in colour. An area of fluctuance in center. Marginal erythema along borders.(L) 5.3cm x (W)10.4cm. Partially opened Sacral DTPI. Base of wound is purple with surrounding erythema. Partial open wound marco a cleft that is corby and moist.(L)5.3cm x (W) 4.5cm.NO odor or exudate noted. Non-blanching erythema periwound. DTPI L ischium . Base of wound is purple and indurated.(L)6cm x (W)7.5cm. Unstageable pressure injury R hip. Base of wound is 75% necrotic, 25% mixed erythema and slough. Borders are moist,soft with scattered areas that are black. Periwound is dusky and indurated.No odor or exudate noted. DTPI at posterior and medial aspect of L heel. Base of wound is maroon and fluctuant(L)4cm x (W)7cm. Unstageable pressure injury L Hallux. Base of wound is 100% necrotic but soft. Borders are erythematous. Periwound without induration or fluctuance.(L)2.5cm x (W)3cm. DTPI medial L malleolus. Base of wound fluctuant and maroon in colour.(L) 0.3cm x (W)1.2cm. DTPI medial L malleolus. Base of wound fluctuant and maroon in colour with Marginal erythema along borders.(L)0.3cm x (W)1.2cm. Intact blood filled blisters noted to L 1st Metatarsal laterally and head of metatarsal. Intact blood filled blisters noted to heads of L 2nd and L 3rd metatarsals. DTPI noted to posterior and lateral R Heel. Posterior R heel is maroon in colour and fluctuant at base. Laterally ,R heel is black and fluctuant at base.Periwound is boggy and non-blanchable.(L)7cm x (W)8cm. Unstageable pressure injury lateral R malleolus. Base of wound is 100% necrotic and dry.Marginal erythema along borders.Periwound is fluctuant and erythematous( L)1.2cm x (W)1.5cm. DTPI distal/lateral R foot. Base of wound is fluctuant and maroon in colour.(L) 1.3cm x (W)1.7cm. DTPI lateral R 5th metatarsal. Base of wound is maroon and fluctuant with marginal erythema along borders .(L)0.7cm x (W)1.1cm Tx.Plan: Cleanse Wound R shoulder with Saline. Apply Therahoney. Apply Cavilon Skin barrier periwound. Cover with Optifoam drsg every 3 days and prn. Cleanse R hip wound with Saline. Apply Therahoney with 4x4 Gauze. Apply Moisture Barrier Paste periwound.Cover with Optifoam drsg. Daily and prn. Apply Moisture Barrier Paste to Sacral wound and L Ischium. Cover each wound with Optifoam drsg every 3 days and prn. Apply Betadine to R humerus and R elbow . Cover each wound with Optifoam drsg. Change every 3 days and prn. Apply Betadine to wounds R heel, R malleolus and R foot . Cover each wound with Optifoam drsg every 3 days and prn. Apply Betadine to wounds L heel ,L medial malleolus and L foot. Cover each wound with Optifoam drsgs every 3 Days and prn. Air Fluidized Mattress. Reposition at least every 2hours or as tolerated. Place Pillow between knees. Off-load heels with pillow. Additional Comments left fem line removed now with right tunneled chest cath stable d/c plan Anshul Nava Jul 10, 2019 13:19
--- NOTE | 2019-07-10 13:21 | Operative Note - PDOC ---
Operative Note Operative Note Date of Operation/Procedure: Jul 10, 2019 Pre-op Diagnosis: Renal Insufficiency requiring Hemodialysis Procedure: Left femoral temporary hemodialysis catheter removal Post-op Diagnosis: same as pre-op Operative Findings: consistent w/pre-op dx studies Surgeon: robbie nava md Anesthesia: other Specimen: none Complications: none Condition: unstable Fluids: none Estimated Blood Loss: none Drains: none Implant(s) used?: No Indications for Procedure This is a very pleasant 89-year-old female with renal insufficiency currently on hemodialysis who had a left femoral catheter placed prior. Patient recently had a right chest wall tunneled catheter placed for long-term use and left femoral catheter required removal. Consent obtained family informed line removed Description of Procedure Patient made comfortable bedside in supine position. The left groin dressings were removed. Catheter sutures were cut. Catheter was removed and discarded and pressure was held for approximately 20 minutes until good hemostasis noted. Dressings were applied. Instructions given to nursing staff and will follow. Thank you Robbie Nava Jul 10, 2019 13:21
[2019-07-10 16:00] VITALS: BP 149/75
[2019-07-10 20:00] VITALS: BP 112/50
[2019-07-10] MEDS: Epoetin Alfa-EPBX(ESRD on dialysis)3000 units/ml vial SUBQ SCH (21:26)
[2019-07-10] MEDS: Dyna-Hex 2% Top Sol 2oz TOPIC SCH (21:26)
[2019-07-11] VITALS (7 sets, daily range): BP systolic 123–139; BP diastolic 54–82
--- NOTE | 2019-07-11 00:15 | Progress Note ---
DATE: 07/10/2019 SUBJECTIVE: The patient is in bed. No behavior issues noted. She is having cognitive impairment. She is disoriented, poor historian, episodes of agitation. MENTAL STATUS EXAMINATION: Alert and oriented times self. Mood is agitated. Thought process is concrete. Thought content, no suicidal or homicidal ideation. Cognition is impaired. Insight and judgment is impaired. ASSESSMENT: 1. Acute encephalopathy. 2. Dementia. PLAN: 1. We will continue current medications. 2. Provide the patient with reality orientation and supportive therapy. Jaime Jackson M.D. DR: Betsy JOB#: [id number] CC:
--- NOTE | 2019-07-11 07:08 | Hematology/Onc Progress Note ---
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 Otherwise unremarkable pancreas --> as per gi, may need further eval with endsocopy --> with pancreatitis at this time, may be obscuring picture --> reimage in short order, 6 months --> ca19.9 60 but may be elevated due to pancreatitis --> cea of 10 --> monitor lfts daily # Leukocytosis/elevated white blood cell count, unspecified likely related to underlying stress reaction, smoking v more likely infection in this case, bacteremia --> have reviewed peripheral smear and bandemia/neutrophilia noted --> continue antibiotics if they have been started by ID team --> monitor for resolution --> as per id care, on broad spectrum abx --> wbc 30-->21-->18.7 -->5 --> abx: bethany/linezolid --> bethany/fuc --> per id recs # Anemia of chronic disease due to underlying chronic medical issues, multifactorial v Gi bleed --> Anemia workup has been reviewed, ferritin 1300 --> No evidence of hemolysis is noted, peripheral smear has been reviewed. --> Hgb goal >7. Transfuse prn. --> Epogen has been started --> Medications have been reviewed --> hgb 8.7-->7.4-->6.3-->10 --> low threshold for gi evaluation in case has occult + --> bone marrow biopsy is not indicated given the other more likely causes # Thrombocytopenia - potential causes multifactorial, evaluate liver and viral etiologies to begin, in this case due to sepsisand pancreatitis --> Hep panel and HIV are both negative --> US abd to evaluate for cirrhosis and hsm --> pleural effusions noted, hsm is neg --> Peripheral smear ordered to evaluate for blasts /schistocytes --> abx and other meds have been reviewed --> ok for ppx if plt >50k w/ either heparin or lovenox # Acute renal failure - on HD UF --> hd with fem left omari ==> per renal hd # 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 Greatly appreciate consultation. Subjective HEENT: Denies: no symptoms, eye pain, blurred vision, tearing, double vision, ear pain, ear discharge, nose pain, nose congestion, throat pain, throat swelling, mouth pain, mouth swelling, other Cardiovascular: Denies: no symptoms, chest pain, edema, irregular heart rate, lightheadedness, palpitations, syncope, other Respiratory: Denies: no symptoms, cough, shortness of breath, SOB with excertion, SOB at rest, sputum, wheezing, other Gastrointestinal/Abdominal: Denies: no symptoms, abdomen distended, abdominal pain, black stools, tarry stools, blood in stool, constipated, diarrhea, difficulty swallowing, nausea, poor appetite, poor fluid intake, rectal bleeding , vomiting, other Genitourinary: Denies: no symptoms, burning, discharge, frequency, flank pain, hematuria, incontinence, pain, urgency, other Neurologic/Psychiatric: Denies: no symptoms, anxiety, depressed, emotional problems, headache, numbness, paresthesia, pre-existing deficit, seizure, tingling, tremors, weakness, other Endocrine: Denies: no symptoms, excessive sweating, flushing, intolerance to cold, intolerance to heat, increased hunger, increased thirst, increased urine, unexplained weight gain, unexplained weight loss, other Hematologic/Lymphatic: Denies: no symptoms, anemia, easy bleeding, easy bruising, adenopathy, other Allergies: Coded Allergies: No Known Allergies (Unverified , 06/24/19) Subjective 07/02: resting in bed, appears to be comfortable, no bleeding, on merop, no events 07/03: is crying with ng tube, no bleeding, labs noted, no night swaets, lytes to be replted 07/04: hgb 8.2, hd for today, hep and hiv negative, nc, on bethany 07/05 to get hd for monday, no bleeding, labs reported, dw pcp, peg working 07/06 labs pending, afebrile, no sob, on abx 07/08 no major changes, hd done yesterday, no bleeding or night sweats 07/09 remains on epogen, no bleeding, labs noted, no major events, hgb 10 07/10 labs reviewed, no bleeding, no major events overnight Objective Objective Current Medications Medications (Trade) Dose Ordered Sig/Joan Route PRN Reason Start Time Stop Time Status Last Admin Dose Admin Acetaminophen (Tylenol) 650 mg Q4H PRN NG Mild Pain/Temp > 100.5 07/04/19 20:30 08/01/19 12:29 07/10/19 12:35 Acetylcysteine (Mucomyst) 100 mg Q4H PRN HHN Shortness of Breath 07/04/19 18:00 08/03/19 17:59 Albumin Human 100 ml @ 100 mls/hr NEEDED PRN IV DIALYSIS 07/04/19 19:00 08/03/19 18:59 07/06/19 01:30 Chlorhexidine Gluconate (Cari-Hex 2%) 1 applic DAILY@2000 TOPIC 07/04/19 20:00 07/26/19 19:59 07/10/19 21:26 Dextrose (Dextrose 50%) 25 ml Q30M PRN IV Hypoglycemia 07/04/19 20:00 07/24/19 19:51 Dextrose (Dextrose 50%) 50 ml Q30M PRN IV Hypoglycemia 07/04/19 20:00 07/24/19 19:51 Diphenhydramine HCl (Benadryl) 25 mg Q6H PRN ORAL Itching/Pruritis 07/04/19 20:00 07/24/19 19:51 Epoetin Dion (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)) 6,000 unit MON-WED-MON SUBQ 07/08/19 21:00 08/07/19 20:59 07/10/19 21:26 Fluconazole (Diflucan) 100 mg DAILY ORAL 07/08/19 09:00 07/12/19 08:59 07/10/19 09:55 Furosemide (Lasix) 40 mg DAILY IV 07/05/19 09:00 07/30/19 19:59 07/10/19 09:56 Gabapentin (Neurontin) 300 mg BID GT 07/05/19 09:00 08/01/19 17:59 07/10/19 17:13 Guaifenesin/ Dextromethorphan (Robitussin DM Syrup) 10 ml Q4H PRN ORAL For Cough 07/10/19 12:37 10/08/19 12:36 Haloperidol Lactate (Haldol) 5 mg Q6H PRN IM Agitation 07/06/19 01:45 08/20/19 01:44 Ondansetron HCl (Zofran) 4 mg Q4H PRN IVP Nausea & Vomiting 07/04/19 20:00 08/02/19 19:59 Pantoprazole (Protonix) 40 mg DAILY IVP 07/05/19 09:00 07/30/19 08:59 07/10/19 09:56 Last 24 Hour Vital Signs Date Time Temp Pulse Resp B/P (MAP) Pulse Ox O2 Delivery O2 Flow Rate FiO2 07/11/19 04:00 99.2 110 24 126/67 (86) 100 07/11/19 00:00 98.5 105 22 123/69 (87) 100 07/10/19 21:19 98 Nasal Cannula 2.0 28 07/10/19 21:19 99 18 98 Nasal Cannula 2.0 28 07/10/19 21:00 Nasal Cannula 2.0 Nasal Cannula 2.0 07/10/19 20:00 98.0 100 22 112/50 (70) 100 07/10/19 16:00 97.6 110 19 149/75 (99) 95 07/10/19 12:00 97.9 105 20 158/81 (106) 99 07/10/19 09:00 Nasal Cannula 2.0 Nasal Cannula 2.0 07/10/19 08:00 98.3 114 20 150/85 (106) 99 07/10/19 04:00 97.8 101 20 140/72 (94) 99 07/10/19 00:00 97.3 108 20 149/86 (107) 100 07/09/19 21:30 98.8 106 20 151/67 (95) 98 07/09/19 21:00 Nasal Cannula 2.0 Nasal Cannula 2.0 07/09/19 20:00 99.0 105 20 131/67 (88) 98 07/09/19 16:00 99.3 107 20 127/59 (81) 100 07/09/19 12:10 114 18 144/65 (91) 100 07/09/19 12:05 121 18 138/66 (90) 100 07/09/19 12:00 98.4 100 18 124/67 (86) 98 07/09/19 12:00 118 22 148/70 (96) 100 07/09/19 11:55 114 18 137/58 (84) 100 07/09/19 11:50 114 20 158/62 (94) 100 07/09/19 11:46 113 18 3.0 07/09/19 11:45 113 20 143/68 (93) 100 07/09/19 09:00 Nasal Cannula 2.0 Nasal Cannula 2.0 07/09/19 08:00 98.1 112 19 136/72 (93) 97 07/09/19 07:20 100 Nasal Cannula 2.0 28 07/09/19 07:20 106 20 100 Nasal Cannula 2.0 28 Intake and Output 07/10/19 07/11/19 19:00 07:00 Intake Total 580 ml 530 ml Output Total 650 ml 2150 ml Balance -70 ml -1620 ml Free Water 100 ml 90 ml Tube Feeding 480 ml 440 ml Output Urine Total 650 ml 150 ml Hemodialysis UF 2000 ml # Bowel Movements 5 Labs Test 07/09/19 07:52 07/10/19 05:45 White Blood Count 10.6 K/UL (4.8-10.8) 9.9 K/UL (4.8-10.8) Red Blood Count 2.12 M/UL (4.20-5.40) 3.36 M/UL (4.20-5.40) Hemoglobin 6.3 G/DL (12.0-16.0) 10.4 G/DL (12.0-16.0) Hematocrit 19.4 % (37.0-47.0) 30.2 % (37.0-47.0) Mean Corpuscular Volume 92 FL (80-99) 90 FL (80-99) Mean Corpuscular Hemoglobin 29.6 PG (27.0-31.0) 30.9 PG (27.0-31.0) Mean Corpuscular Hemoglobin Concent 32.3 G/DL (32.0-36.0) 34.3 G/DL (32.0-36.0) Red Cell Distribution Width 14.4 % (11.6-14.8) 13.3 % (11.6-14.8) Platelet Count 329 K/UL (150-450) 297 K/UL (150-450) Mean Platelet Volume 6.7 FL (6.5-10.1) 7.2 FL (6.5-10.1) Neutrophils (%) (Auto) % (45.0-75.0) 78.9 % (45.0-75.0) Lymphocytes (%) (Auto) % (20.0-45.0) 10.4 % (20.0-45.0) Monocytes (%) (Auto) % (1.0-10.0) 9.3 % (1.0-10.0) Eosinophils (%) (Auto) % (0.0-3.0) 1.1 % (0.0-3.0) Basophils (%) (Auto) % (0.0-2.0) 0.4 % (0.0-2.0) Differential Total Cells Counted 100 Neutrophils % (Manual) 85 % (45-75) Lymphocytes % (Manual) 9 % (20-45) Monocytes % (Manual) 5 % (1-10) Eosinophils % (Manual) 1 % (0-3) Basophils % (Manual) 0 % (0-2) Band Neutrophils 0 % (0-8) Platelet Estimate Adequate Platelet Morphology Normal Hypochromasia 1+ Sodium Level 144 MMOL/L (136-145) 152 MMOL/L (136-145) Potassium Level 3.8 MMOL/L (3.5-5.1) 3.8 MMOL/L (3.5-5.1) Chloride Level 106 MMOL/L (98-107) 111 MMOL/L (98-107) Carbon Dioxide Level 25 MMOL/L (21-32) 25 MMOL/L (21-32) Anion Gap 13 mmol/L (5-15) 16 mmol/L (5-15) Blood Urea Nitrogen 70 mg/dL (7-18) 110 mg/dL (7-18) Creatinine 3.4 MG/DL (0.55-1.30) 4.0 MG/DL (0.55-1.30) Estimat Glomerular Filtration Rate 15.5 mL/min (>60) 12.7 mL/min (>60) Glucose Level 128 MG/DL (74-106) 168 MG/DL (74-106) Calcium Level 9.8 MG/DL (8.5-10.1) 10.4 MG/DL (8.5-10.1) Total Bilirubin 0.8 MG/DL (0.2-1.0) Aspartate Amino Transf (AST/SGOT) 36 U/L (15-37) Alanine Aminotransferase (ALT/SGPT) 37 U/L (12-78) Alkaline Phosphatase 75 U/L (46-116) Total Protein 6.5 G/DL (6.4-8.2) Albumin 3.6 G/DL (3.4-5.0) Globulin 2.9 g/dL Albumin/Globulin Ratio 1.2 (1.0-2.7) Height (Feet): 5 Height (Inches): 3.00 Weight (Pounds): 139 Objective Physical Exam: Vitals: reviewed General: NAD, groans to pain stimuli HEENT: nc, at Neck: supple Chest: clear breath sounds bilaterally Cardiovascular: RRR, no s3, s4 Abdomen: soft, nontender, nd++ peg Extremities: no cce, normal range of motion Neuro: alert and oriented Skin: other - pressure sores to right side Bola Aldridge MD Jul 11, 2019 07:08
--- NOTE | 2019-07-11 08:31 | General Progress Note ---
Assessment/Plan Problem List: (1) KAREN (acute kidney injury) ICD Codes: N17.9 - Acute kidney failure, unspecified SNOMED: 5510517, 25761626 (2) Altered level of consciousness ICD Codes: R40.4 - Transient alteration of awareness SNOMED: 8386532 Status: stable Assessment/Plan: dysphagia elevated LFTS pancreatitis based on elevated lipase fatty liver ESRD pancreatic cyst anemia stool ob positive GTF repeat labs abx per ID CT reviewed improving LFTS, wbc and lipase abx per ID HD per nephrology s/p blood transfusion pending placement Subjective ROS Limited/Unobtainable: Yes Allergies: Coded Allergies: No Known Allergies (Unverified , 06/24/19) Objective Last 24 Hour Vital Signs Date Time Temp Pulse Resp B/P (MAP) Pulse Ox O2 Delivery O2 Flow Rate FiO2 07/11/19 04:00 99.2 110 24 126/67 (86) 100 07/11/19 00:00 98.5 105 22 123/69 (87) 100 07/10/19 21:19 98 Nasal Cannula 2.0 28 07/10/19 21:19 99 18 98 Nasal Cannula 2.0 28 07/10/19 21:00 Nasal Cannula 2.0 Nasal Cannula 2.0 07/10/19 20:00 98.0 100 22 112/50 (70) 100 07/10/19 16:00 97.6 110 19 149/75 (99) 95 07/10/19 12:00 97.9 105 20 158/81 (106) 99 07/10/19 09:00 Nasal Cannula 2.0 Nasal Cannula 2.0 Intake and Output 07/10/19 07/11/19 19:00 07:00 Intake Total 580 ml 530 ml Output Total 650 ml 2150 ml Balance -70 ml -1620 ml Free Water 100 ml 90 ml Tube Feeding 480 ml 440 ml Output Urine Total 650 ml 150 ml Hemodialysis UF 2000 ml # Bowel Movements 5 Height (Feet): 5 Height (Inches): 3.00 Weight (Pounds): 139 General Appearance: alert EENT: normal ENT inspection Neck: supple Cardiovascular: normal rate Respiratory/Chest: decreased breath sounds Abdomen: normal bowel sounds, non tender, soft Extremities: non-tender Jun Mena MD Jul 11, 2019 08:31
--- NOTE | 2019-07-11 09:00 | Urology Progress Note ---
Assessment/Plan Status: stable Assessment/Plan: 1. Gross hematuria, improving. 2. End-stage renal disease. 3. Urinary retention. 4. Possible neurogenic bladder. 5. Urinary tract infection and colonization. 6. Proteinuria. 7. Acute kidney injury history. monitor clinically hargrove hand irrigated and do PRN s/p abx, diflucan added HD per nephrology cysto later d/w nursing staff Subjective Allergies: Coded Allergies: No Known Allergies (Unverified , 06/24/19) Subjective all noted, looks comfortable Objective Last 24 Hour Vital Signs Date Time Temp Pulse Resp B/P (MAP) Pulse Ox O2 Delivery O2 Flow Rate FiO2 07/11/19 04:00 99.2 110 24 126/67 (86) 100 07/11/19 00:00 98.5 105 22 123/69 (87) 100 07/10/19 21:19 98 Nasal Cannula 2.0 28 07/10/19 21:19 99 18 98 Nasal Cannula 2.0 28 07/10/19 21:00 Nasal Cannula 2.0 Nasal Cannula 2.0 07/10/19 20:00 98.0 100 22 112/50 (70) 100 07/10/19 16:00 97.6 110 19 149/75 (99) 95 07/10/19 12:00 97.9 105 20 158/81 (106) 99 07/10/19 09:00 Nasal Cannula 2.0 Nasal Cannula 2.0 Intake and Output 07/10/19 07/11/19 19:00 07:00 Intake Total 580 ml 530 ml Output Total 650 ml 2150 ml Balance -70 ml -1620 ml Free Water 100 ml 90 ml Tube Feeding 480 ml 440 ml Output Urine Total 650 ml 150 ml Hemodialysis UF 2000 ml # Bowel Movements 5 Microbiology Date/Time Source Procedure Growth Status 06/29/19 14:25 Blood Blood Culture - Final NO GROWTH AFTER 5 DAYS Complete 07/10/19 15:00 Stool Clostridium difficile Toxin Assay - Final Complete 07/04/19 18:29 Urine,Clean Catch Urine Culture - Final Melanie Albicans Complete Current Medications Medications (Trade) Dose Ordered Sig/Joan Route PRN Reason Start Time Stop Time Status Last Admin Dose Admin Acetaminophen (Tylenol) 650 mg Q4H PRN NG Mild Pain/Temp > 100.5 07/04/19 20:30 08/01/19 12:29 07/10/19 12:35 Acetylcysteine (Mucomyst) 100 mg Q4H PRN HHN Shortness of Breath 07/04/19 18:00 08/03/19 17:59 Albumin Human 100 ml @ 100 mls/hr NEEDED PRN IV DIALYSIS 07/04/19 19:00 08/03/19 18:59 07/06/19 01:30 Chlorhexidine Gluconate (Cari-Hex 2%) 1 applic DAILY@2000 TOPIC 07/04/19 20:00 07/26/19 19:59 07/10/19 21:26 Dextrose (Dextrose 50%) 25 ml Q30M PRN IV Hypoglycemia 07/04/19 20:00 07/24/19 19:51 Dextrose (Dextrose 50%) 50 ml Q30M PRN IV Hypoglycemia 07/04/19 20:00 07/24/19 19:51 Diphenhydramine HCl (Benadryl) 25 mg Q6H PRN ORAL Itching/Pruritis 07/04/19 20:00 07/24/19 19:51 Epoetin Dion (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)) 6,000 unit MON-MON-MON SUBQ 07/08/19 21:00 08/07/19 20:59 07/10/19 21:26 Fluconazole (Diflucan) 100 mg DAILY ORAL 07/08/19 09:00 07/12/19 08:59 07/10/19 09:55 Furosemide (Lasix) 40 mg DAILY IV 07/05/19 09:00 07/30/19 19:59 07/10/19 09:56 Gabapentin (Neurontin) 300 mg BID GT 07/05/19 09:00 08/01/19 17:59 07/10/19 17:13 Guaifenesin/ Dextromethorphan (Robitussin DM Syrup) 10 ml Q4H PRN ORAL For Cough 07/10/19 12:37 10/08/19 12:36 Haloperidol Lactate (Haldol) 5 mg Q6H PRN IM Agitation 07/06/19 01:45 08/20/19 01:44 Ondansetron HCl (Zofran) 4 mg Q4H PRN IVP Nausea & Vomiting 07/04/19 20:00 08/02/19 19:59 Pantoprazole (Protonix) 40 mg DAILY IVP 07/05/19 09:00 07/30/19 08:59 07/10/19 09:56 Height (Feet): 5 Height (Inches): 3.00 Weight (Pounds): 139 Objective exam stable hargrove indwelling urine blood-tinged/neal Omar Mckoy MD Jul 11, 2019 09:00
[2019-07-11] MEDS: Gabapentin 300 MG/6 ML Soln GT SCH ×2 (09:54→17:06)
[2019-07-11] MEDS: Fluconazole 100mg tab ORAL SCH (09:55)
[2019-07-11] MEDS: Pantoprazole Inj IVP SCH (09:55)
--- NOTE | 2019-07-11 10:23 | Pulmonology Progress Note ---
Assessment/Plan Assessment/Plan IMPRESSION: 1. Left lung pneumonia. Latest CXR shows significant clearing 2. Pulmonary edema. 3. Respiratory failure; now off BiPAP DISCUSSION: Continue antibiotics per ID Dialysis per renal; noted plans for permacath Use BiPAP prn. Supplemental O2. I will continue to follow carefully. Abrahan Samaniego M.D. Subjective Interval Events: None new Constitutional: Reports: no symptoms HEENT: Repors: no symptoms Respiratory: Reports: no symptoms Cardiovascular: Reports: no symptoms Allergies: Coded Allergies: No Known Allergies (Unverified , 06/24/19) Objective Last 24 Hour Vital Signs Date Time Temp Pulse Resp B/P (MAP) Pulse Ox O2 Delivery O2 Flow Rate FiO2 07/11/19 08:00 99.0 99 22 123/70 (87) 99 07/11/19 04:00 99.2 110 24 126/67 (86) 100 07/11/19 00:00 98.5 105 22 123/69 (87) 100 07/10/19 21:19 98 Nasal Cannula 2.0 28 07/10/19 21:19 99 18 98 Nasal Cannula 2.0 28 07/10/19 21:00 Nasal Cannula 2.0 Nasal Cannula 2.0 07/10/19 20:00 98.0 100 22 112/50 (70) 100 07/10/19 16:00 97.6 110 19 149/75 (99) 95 07/10/19 12:00 97.9 105 20 158/81 (106) 99 Intake and Output 07/10/19 07/11/19 19:00 07:00 Intake Total 580 ml 530 ml Output Total 650 ml 2150 ml Balance -70 ml -1620 ml Free Water 100 ml 90 ml Tube Feeding 480 ml 440 ml Output Urine Total 650 ml 150 ml Hemodialysis UF 2000 ml # Bowel Movements 5 General Appearance: no acute distress HEENT: normocephalic Respiratory/Chest: chest wall non-tender Cardiovascular: normal peripheral pulses Microbiology Date/Time Source Procedure Growth Status 07/10/19 15:00 Stool Clostridium difficile Toxin Assay - Final Complete Current Medications Medications (Trade) Dose Ordered Sig/Joan Route PRN Reason Start Time Stop Time Status Last Admin Dose Admin Acetaminophen (Tylenol) 650 mg Q4H PRN NG Mild Pain/Temp > 100.5 07/04/19 20:30 08/01/19 12:29 07/10/19 12:35 Acetylcysteine (Mucomyst) 100 mg Q4H PRN HHN Shortness of Breath 07/04/19 18:00 08/03/19 17:59 Albumin Human 100 ml @ 100 mls/hr NEEDED PRN IV DIALYSIS 07/04/19 19:00 08/03/19 18:59 07/06/19 01:30 Chlorhexidine Gluconate (Cari-Hex 2%) 1 applic DAILY@2000 TOPIC 07/04/19 20:00 07/26/19 19:59 07/10/19 21:26 Dextrose (Dextrose 50%) 25 ml Q30M PRN IV Hypoglycemia 07/04/19 20:00 07/24/19 19:51 Dextrose (Dextrose 50%) 50 ml Q30M PRN IV Hypoglycemia 07/04/19 20:00 07/24/19 19:51 Diphenhydramine HCl (Benadryl) 25 mg Q6H PRN ORAL Itching/Pruritis 07/04/19 20:00 07/24/19 19:51 Epoetin Dion (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)) 6,000 unit MON-MON-MON SUBQ 07/08/19 21:00 08/07/19 20:59 07/10/19 21:26 Fluconazole (Diflucan) 100 mg DAILY ORAL 07/08/19 09:00 07/12/19 08:59 07/11/19 09:55 Furosemide (Lasix) 40 mg DAILY IV 07/05/19 09:00 07/30/19 19:59 07/11/19 09:55 Gabapentin (Neurontin) 300 mg BID GT 07/05/19 09:00 08/01/19 17:59 07/11/19 09:54 Guaifenesin/ Dextromethorphan (Robitussin DM Syrup) 10 ml Q4H PRN ORAL For Cough 07/10/19 12:37 10/08/19 12:36 07/11/19 10:05 Haloperidol Lactate (Haldol) 5 mg Q6H PRN IM Agitation 07/06/19 01:45 08/20/19 01:44 Ondansetron HCl (Zofran) 4 mg Q4H PRN IVP Nausea & Vomiting 07/04/19 20:00 08/02/19 19:59 Pantoprazole (Protonix) 40 mg DAILY IVP 07/05/19 09:00 07/30/19 08:59 07/11/19 09:55 Abrahan Samaniego MD Jul 11, 2019 10:22
--- NOTE | 2019-07-11 11:37 | Nephrology Progress Note ---
Assessment/Plan Plan #acute renal failure on possible CKD- due to rhabdo- UA with + RBC- concerns for developing ATN #Uremia #complete opacification of the left hemithorax- likely aspiration pneumonia #lactic acidosis #Hypernatremia- improved #AMS #elevated liver enzyme - Monitor UOP- appears to be increasing - check labs tomorrow - permacath 07/08 - set up outapatient HD at renal - case management notified - epogen 6k TIW - monitor UOP - PEG 07/04 - pulmonary eval - on room air now - renal US-> No obstructive nephropathy. - monitor liver enzymes and lipase - Gi eval Subjective Subjective s/p HD yesterday UOP increasing having diarrhea TF changed BP stable monitor UOP s/p one unit of prbc hemoglobin stable CT chest: Extensive airspace consolidation in the left lung involving the left perihilar, upper lobe and left lower lobe. Findings suspicious for pneumonia, especially aspiration given the abrupt onset. Please correlate clinically. Partial atelectasis of the left lower lobe also noted Objective Objective Last 24 Hour Vital Signs Date Time Temp Pulse Resp B/P (MAP) Pulse Ox O2 Delivery O2 Flow Rate FiO2 07/11/19 09:00 Nasal Cannula 2.0 Nasal Cannula 2.0 07/11/19 08:00 99.0 99 22 123/70 (87) 99 07/11/19 04:00 99.2 110 24 126/67 (86) 100 07/11/19 00:00 98.5 105 22 123/69 (87) 100 07/10/19 21:19 98 Nasal Cannula 2.0 28 07/10/19 21:19 99 18 98 Nasal Cannula 2.0 28 07/10/19 21:00 Nasal Cannula 2.0 Nasal Cannula 2.0 07/10/19 20:00 98.0 100 22 112/50 (70) 100 07/10/19 16:00 97.6 110 19 149/75 (99) 95 07/10/19 12:00 97.9 105 20 158/81 (106) 99 Intake and Output 07/10/19 07/11/19 19:00 07:00 Intake Total 580 ml 530 ml Output Total 650 ml 2150 ml Balance -70 ml -1620 ml Free Water 100 ml 90 ml Tube Feeding 480 ml 440 ml Output Urine Total 650 ml 150 ml Hemodialysis UF 2000 ml # Bowel Movements 5 Height (Feet): 5 Height (Inches): 3.00 Weight (Pounds): 139 Objective General Appearance: lethargic, confused, on bipap Lines, tubes and drains: peripheral HEENT: normocephalic, atraumatic Neck: non-tender Respiratory/Chest: minimal breath sounds on the left Cardiovascular/Chest: normal peripheral pulses, normal rate, regular rhythm, regularly irregular Abdomen: non tender, soft Rory Oconnor M.D. Jul 11, 2019 11:36
--- NOTE | 2019-07-11 12:20 | Surgery Progress Note ---
Surgery Progress Note Subjective Procedure Performed Left femoral temporary hemodialysis catheter removal Symptoms: improved, tolerating diet, voiding well, passing flatus, BM Objective Last 24 Hour Vital Signs Date Time Temp Pulse Resp B/P (MAP) Pulse Ox O2 Delivery O2 Flow Rate FiO2 07/11/19 09:00 Nasal Cannula 2.0 Nasal Cannula 2.0 07/11/19 08:00 99.0 99 22 123/70 (87) 99 07/11/19 04:00 99.2 110 24 126/67 (86) 100 07/11/19 00:00 98.5 105 22 123/69 (87) 100 07/10/19 21:19 98 Nasal Cannula 2.0 28 07/10/19 21:19 99 18 98 Nasal Cannula 2.0 28 07/10/19 21:00 Nasal Cannula 2.0 Nasal Cannula 2.0 07/10/19 20:00 98.0 100 22 112/50 (70) 100 07/10/19 16:00 97.6 110 19 149/75 (99) 95 I&O Intake and Output 07/10/19 07/11/19 19:00 07:00 Intake Total 580 ml 530 ml Output Total 650 ml 2150 ml Balance -70 ml -1620 ml Free Water 100 ml 90 ml Tube Feeding 480 ml 440 ml Output Urine Total 650 ml 150 ml Hemodialysis UF 2000 ml # Bowel Movements 5 Dressing: dry Wound: clean Cardiovascular: RSR Respiratory: clear Abdomen: soft, flat, non-tender, present bowel sounds Extremities: no tenderness, no cyanosis Plan Problems: (1) Fall Assessment & Plan: 88 year old female s/p fall now with renal insufficiency requiring HD spoke with family. she has known CKD multiple decubitus ulcers from being down malnutrition line placed see documentation trend labs abx HD thank you prognosis guarded family at bedside cxr noted pna worsening l;ine out d/cp larry R cheek pressure injury resolved. Unstageable pressure injury R shoulder now has 90% necrosis,surrounding 10% pink granulation(L()4.1cm x (W)3.3cm. No odor or exudate noted.No erythema or induration periwound. Reabsorbed DTPI R Humerus. Base of wound is dry,brown with pink epithelial at the distal base of wound(L)9.4cm x (W)3.1cm. DTPI R elbow has resolved. Scattered dry brown peeling skin noted. No erythema noted. DTPI sacrum less indurated (L)4.5cm x (W)6cm. Small opening at cleft that is corby and moist(L)1.5cm x (W)0.3cm. No exudate noted. L ischial DTPI reabsorbed(L)6cm x (W)7cm. Base of injury black. No erythema or evidence of further breakdown periwound. Unstageable pressure injury R hip(L)8.9cm x (W)14.2cm. Base of wound has 50% slough ,25% soft necrosis, 25% pink granulation along borders.Edges adherent to base of wound. No odor or exudate noted. DTPI medial/posterior L heel reabsorbed. Base of injury is boggy but blanchable. Unstageable Pressure Injury L Hallux resolving.(L)4.3cm x (W)3.7cm. Base of wound is 60% necrotic,10% slough with surrounding 30% pink granulation. Marginal erythema periwound. Small amt purulent exudate noted. No odor noted. DTPI medial L malleolus reabsorbed. Dry brown patch noted. Reabsorbed blood blisters L 1st,2nd and 3rd metatarsals. Dry brown patches noted dorsally all 3 metatarsals. R heel DTPI resolving. R heel is boggy but blanchable. Unstageable pressure injury lateral R malleolus. Base of wound has scattered slough. Borders are macerated with marginal erythema periwound.(L)0.7cm x (W) 1.3cm. No erythema or fluctuance periwound. DTPI distal/lateral R foot resolving. Base of injury is maroon /fluctuant. No erythema or induration periwound. DTPI lateral R 5th metatarsal resolved. Wound care provided. Wound Tx are effective and continued as ordered. All wound prevention protocols continued as care-planned. Family member at bedside and updated on wound progress. DAILY ESTIMATED NEEDS: Needs based on Wounds, 51.8kg 30-35 kcals/kg 0552-9286 total kcals 1.25-1.5 g protein/kg 65-78 g total protein 25-30ml/kcal mL/kg 1693-2131 total fluid mLs NUTRITION DIAGNOSIS: * Increased kcal and pro needs r/t wound healing and renal failure as evidenced by, s/p fall w/ pressure wounds per MD, refer to WC eval, ARF needing HD. * Swallowing difficulty R/T dysphagia as evidenced by s/p NGT placement, plan for PEG placement w/ consent and medical clearance, TF held for possible pancreatitis. CURRENT TF:NPO- TF HELD FOR POSSIBLE PANCREATITIS ENTERAL NUTRITION RECOMMENDATIONS: NEPRO @36ml/hr x24 hrs to provide 864ml, 1555 kcal, 70g pro, 628ml free H2O free H2O - As medically appropriate, resume TF - Start @16ml/hr for 8 hrs, advance as tolerated 5ml/hr q4-6 hrs to goal. - Flush per MD/ HOB Over 30 degrees - PT AT HIGH RISK FOR REFEEDING SYNDROME, MONITOR LYTES DAILY, REPLETE NEEDED ADDITIONAL RECOMMENDATIONS: 1) Monitor ability to resume TF NGT feeds held 06/30 for possible pancreatitis. If unable to feed via GI, consider initiating TPN due to proloned NPO, minimal intake status 2) WOUND CARE: W/ active TF order add VASQUEZ in 4oz H2O BID 3) Rec added dextrose when NPO 4) Calibrated bed scale wts daily 5) Monitor lytes closely w/ TF- high risk for refeeding syndrome (2) Altered level of consciousness (3) Fracture of lumbar spine Assessment & Plan: Lungs: There is increased density at the lung bases likely atelectasis. Aorta is moderately calcified. There is a small hiatal hernia.. Liver: Grossly unremarkable. There is artifact limiting evaluation in addition to the fact that no IV or oral contrast was given for this examination. Gallbladder/biliary system: Grossly unremarkable. Spleen: Unremarkable Pancreas: In the area of the pancreatic tail there is a 1.6 cm nodular density which may be cystic. Further evaluation is recommended. Kidneys/Bladder: Vascular calcifications are quite extensive and extend to the hilum of both kidneys. Evaluation for punctate nonobstructive stones is limited in this setting but no definite stones seen. There is no hydronephrosis. Extensive breathing motion limiting evaluation.. Adrenal glands: Unremarkable Bowel: Patient's prior partial bowel resection in the right lower abdomen with anastomotic sutures noted. There is no evidence of a bowel obstruction or inflammatory changes. Appendix is not seen definitely but there are no signs of appendicitis. A few diverticula are noted within the colon. Aorta/IVC: There is a severe calcification of aorta and multiple branches of the aorta. Peritoneum: There is no free fluid. Bones: Bones are diffusely osteopenic. Multiple compression fracture deformities of several vertebra noted including lower thoracic vertebra and L1. There is narrowing of intervertebral discs and accompanying endplate osteophyte formation. Hypertrophied facet joints also demonstrated. Scoliosis of the lower thoracic spine convex to the right and left convex lumbar scoliosis noted. IMPRESSION: No acute findings appreciated. Study limited by the lack of intravenous oral contrast as well as extensive motion artifact. 1.6 cm probable cystic lesion in the pancreatic tail. This requires further evaluation with the contrast CT or MR. Status post previous partial bowel resection. 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 Degenerative changes as described above. (4) Rhabdomyolysis (5) KAREN (acute kidney injury) (6) Decubitus skin ulcer Assessment & Plan: Pt presented on admission with multiple pressure injuries. Pt's niece Sarah stated pt lives alone and found pt laying on her R side on floor in patient's home.Niece believes pt has been laying on floor for approx 5 days. DTPI noted to R cheek. Base of wound is purple with marginal erythema along borders.(L)1.2cm x (W)1.6cm. Unstageable pressure injury R shoulder. Base of wound is 100% necrotic with marginal erythema along borders.(L)4.8cm x (W).3.5cm . DTPI R humerus. Base of wound is fluctuant and maroon in colour with surrounding erythema. (L)10.6cm x (W)3.1cm. DTPI R elbow.Base of wound is indurated with scattered areas that are purple in colour. An area of fluctuance in center. Marginal erythema along borders.(L) 5.3cm x (W)10.4cm. Partially opened Sacral DTPI. Base of wound is purple with surrounding erythema. Partial open wound cleft that is corby and moist.(L)5.3cm x (W) 4.5cm.NO odor or exudate noted. Non-blanching erythema periwound. DTPI L ischium . Base of wound is purple and indurated.(L)6cm x (W)7.5cm. Unstageable pressure injury R hip. Base of wound is 75% necrotic, 25% mixed erythema and slough. Borders are moist,soft with scattered areas that are black. Periwound is dusky and indurated.No odor or exudate noted. DTPI at posterior and medial aspect of L heel. Base of wound is maroon and fluctuant(L)4cm x (W)7cm. Unstageable pressure injury L Hallux. Base of wound is 100% necrotic but soft. Borders are erythematous. Periwound without induration or fluctuance.(L)2.5cm x (W)3cm. DTPI medial L malleolus. Base of wound fluctuant and maroon in colour.(L) 0.3cm x (W)1.2cm. DTPI medial L malleolus. Base of wound fluctuant and maroon in colour with Marginal erythema along borders.(L)0.3cm x (W)1.2cm. Intact blood filled blisters noted to L 1st Metatarsal laterally and head of metatarsal. Intact blood filled blisters noted to heads of L 2nd and L 3rd metatarsals. DTPI noted to posterior and lateral R Heel. Posterior R heel is maroon in colour and fluctuant at base. Laterally ,R heel is black and fluctuant at base.Periwound is boggy and non-blanchable.(L)7cm x (W)8cm. Unstageable pressure injury lateral R malleolus. Base of wound is 100% necrotic and dry.Marginal erythema along borders.Periwound is fluctuant and erythematous( L)1.2cm x (W)1.5cm. DTPI distal/lateral R foot. Base of wound is fluctuant and maroon in colour.(L) 1.3cm x (W)1.7cm. DTPI lateral R 5th metatarsal. Base of wound is maroon and fluctuant with marginal erythema along borders .(L)0.7cm x (W)1.1cm Tx.Plan: Cleanse Wound R shoulder with Saline. Apply Therahoney. Apply Cavilon Skin barrier periwound. Cover with Optifoam drsg every 3 days and prn. Cleanse R hip wound with Saline. Apply Therahoney with 4x4 Gauze. Apply Moisture Barrier Paste periwound.Cover with Optifoam drsg. Daily and prn. Apply Moisture Barrier Paste to Sacral wound and L Ischium. Cover each wound with Optifoam drsg every 3 days and prn. Apply Betadine to R humerus and R elbow . Cover each wound with Optifoam drsg. Change every 3 days and prn. Apply Betadine to wounds R heel, R malleolus and R foot . Cover each wound with Optifoam drsg every 3 days and prn. Apply Betadine to wounds L heel ,L medial malleolus and L foot. Cover each wound with Optifoam drsgs every 3 Days and prn. Air Fluidized Mattress. Reposition at least every 2hours or as tolerated. Place Pillow between knees. Off-load heels with pillow. Anshul Nava Jul 11, 2019 12:20
[2019-07-11 12:52] LABS: EOSINOPHILS % (AUTO) 1.2 % (0.0-3.0); HEMATOCRIT 27.5 % (37.0-47.0); HEMOGLOBIN 8.9 G/DL (12.0-16.0); LYMPHOCYTES % (AUTO) 16.7 % (20.0-45.0); MEAN CORPUSCULAR VOLUME 93 FL (80-99); MONOCYTES % (AUTO) 11.4 % (1.0-10.0); NEUTROPHILS % (AUTO) 69.6 % (45.0-75.0); PLATELET COUNT 241 K/UL (150-450); RED BLOOD COUNT 2.97 M/UL (4.20-5.40); RED CELL DISTRIBUTION WIDTH 14.2 % (11.6-14.8); WHITE BLOOD COUNT 7.2 K/UL (4.8-10.8)
[2019-07-11 13:06] LABS: ANION GAP 13 mmol/L (5-15); BLOOD UREA NITROGEN 59 mg/dL (7-18); CALCIUM 8.4 MG/DL (8.5-10.1); CARBON DIOXIDE 26 MMOL/L (21-32); CHLORIDE 105 MMOL/L (98-107); CREATININE 2.8 MG/DL (0.55-1.30); POTASSIUM 3.1 MMOL/L (3.5-5.1); SODIUM 144 MMOL/L (136-145)
--- NOTE | 2019-07-11 17:58 | General Progress Note ---
Assessment/Plan Status: stable Assessment/Plan: #Rhabdomyolosis #KAREN #Acute renal failure - on HD UF #Uremic encephalopathy #Anion gap metabolic acidosis #Lactic acidosis -resolved -Nephrology following for HD -S/p permacath placement -Outpatient HD arranged #Acute anemia -S/p 2 units PRBC on 07/08, H&H improved -monitor CBC #Left lung PNA - likely aspiration #Acute hypoxic respiratory failure s/p BiPAP - improved #Strep Viridans bacteremia #Worsening Leukocytosis #loose stools Noted to be acutely hypoxic on early AM of 06/25 -s/p BiPAP -> NC/room air intermittently -CT chest, CXR with left lung infiltrate. -ABG prn. -Pulmonology following -echo negative for vegetations -CXR 06/28: Bilateral interstitial thickening and patchy airspace opacities in the left lung, similar to prior study given differences in technique. -ID following - Off abx -Repeat stool C. diff negative -adjust tube feeds as per dietary recs and monitor for further loose stools #Dysphagia -s/p PEG -cont tube feeds as per dietary recs #L1 vertebral fracture - likely old seen on imaging, likely old. -reassurance provided to family. #Transaminitis #Acute pancreatitis ?from dehydration, abd exam benign. -continue to trend LFT's, numbers improving -GI following #Type 2 NSTEMI likely demand in setting of renal failure. EKG wnl. -no need to trend. -cardiology consulted - pt will need stress test prior to d/c #Pressure wounds -LWC Subjective Date patient seen: Jul 11, 2019 Time patient seen: 13:11 ROS Limited/Unobtainable: Yes Allergies: Coded Allergies: No Known Allergies (Unverified , 06/24/19) Subjective Follow up for KAREN, acute pancreatitis, rhabdo, strep bacteremia S/p 2 unit RBC yesterday with improvement in H&H Persistent diarrhea, C. diff negative Objective Last 24 Hour Vital Signs Date Time Temp Pulse Resp B/P (MAP) Pulse Ox O2 Delivery O2 Flow Rate FiO2 07/11/19 16:00 98.7 101 20 136/74 (94) 98 07/11/19 12:00 98.9 97 21 134/82 (99) 98 07/11/19 09:00 Nasal Cannula 2.0 Nasal Cannula 2.0 07/11/19 08:00 99.0 99 22 123/70 (87) 99 07/11/19 04:00 99.2 110 24 126/67 (86) 100 07/11/19 00:00 98.5 105 22 123/69 (87) 100 07/10/19 21:19 98 Nasal Cannula 2.0 28 07/10/19 21:19 99 18 98 Nasal Cannula 2.0 28 07/10/19 21:00 Nasal Cannula 2.0 Nasal Cannula 2.0 07/10/19 20:00 98.0 100 22 112/50 (70) 100 Intake and Output 07/10/19 07/11/19 19:00 07:00 Intake Total 580 ml 530 ml Output Total 650 ml 2150 ml Balance -70 ml -1620 ml Free Water 100 ml 90 ml Tube Feeding 480 ml 440 ml Output Urine Total 650 ml 150 ml Hemodialysis UF 2000 ml # Bowel Movements 5 Laboratory Tests 07/11/19 12:25: White Blood Count 7.2, Red Blood Count 2.97L, Hemoglobin 8.9L, Hematocrit 27.5L , Mean Corpuscular Volume 93, Mean Corpuscular Hemoglobin 29.9, Mean Corpuscular Hemoglobin Concent 32.2, Red Cell Distribution Width 14.2, Platelet Count 241, Mean Platelet Volume 8.4, Neutrophils (%) (Auto) 69.6, Lymphocytes (% ) (Auto) 16.7L, Monocytes (%) (Auto) 11.4H, Eosinophils (%) (Auto) 1.2, Basophils (%) (Auto) 1.0, Sodium Level 144, Potassium Level 3.1L, Chloride Level 105, Carbon Dioxide Level 26, Anion Gap 13, Blood Urea Nitrogen 59H, Creatinine 2.8H, Estimat Glomerular Filtration Rate 19.3, Glucose Level 146H, Calcium Level 8.4L Height (Feet): 5 Height (Inches): 3.00 Weight (Pounds): 139 General Appearance: alert, confused Cardiovascular: normal rate, regular rhythm Respiratory/Chest: lungs clear, normal breath sounds Abdomen: non tender, soft Oumar Foy MD Jul 11, 2019 17:58
--- NOTE | 2019-07-11 20:39 | Infectious Diseases Prog Note ---
Assessment/Plan Assessment/Plan ASSESSMENT AND PLAN: 1. streptococcus viridans bacteremia, ? endocarditis, aspiration pna/hcap, atx, sepsis, leukocytosis, fevers, sob, arf, rhabdomyolysis c.diff. - negative, wounds noted, pancreatitis, elevated lft's, no sputum culture obtained, ? fungal uti vs colonizer, fungemia risk - s/p meropenem and zyvox - diflucan x 1 day - monitor labs and chest x-ray - TTE - no vegetation mentioned in report - CT and US noted, lft's better - continue treatment per primary and consultants - wound care per surgery - doubt sepsis source - clinically better, leukocytosis resolved 2. Acute renal failure, crf - on hemodialysis 3. Rhabdomyolysis - per primary and renal medicine 4. Elevated LFTs. 5. CAD. 6. Non-STEMI. 7. No history of diabetes or hypertension. 8. Fall. 9. Altered level of consciousness. 10. Lumbar spine fracture. 11. No known drug allergies. 12. Social history is negative. 13. Family history is noncontributory. 14. MAR was noted. 15. Case was discussed with RN and family 16. Continue treatment per primary consultants. Subjective Constitutional: Denies: fever HEENT: Denies: congestion Respiratory: Denies: shortness of breath Cardiovascular: Denies: chest pain Gastrointestinal/Abdominal: Denies: nausea, vomiting, diarrhea Genitourinary: Reports: other - fo Neurologic: Reports: weakness Psychiatric: Reports: other - NA Skin: Denies: rash Hematologic: Denies: bleeding Musculoskeletal: Reports: other - NA Allergies: Coded Allergies: No Known Allergies (Unverified , 06/24/19) Objective Vital Signs Last 24 Hour Vital Signs Date Time Temp Pulse Resp B/P (MAP) Pulse Ox O2 Delivery O2 Flow Rate FiO2 07/11/19 16:00 98.7 101 20 136/74 (94) 98 07/11/19 12:00 98.9 97 21 134/82 (99) 98 07/11/19 09:00 Nasal Cannula 2.0 Nasal Cannula 2.0 07/11/19 08:00 99.0 99 22 123/70 (87) 99 07/11/19 04:00 99.2 110 24 126/67 (86) 100 07/11/19 00:00 98.5 105 22 123/69 (87) 100 07/10/19 21:19 98 Nasal Cannula 2.0 28 07/10/19 21:19 99 18 98 Nasal Cannula 2.0 28 07/10/19 21:00 Nasal Cannula 2.0 Nasal Cannula 2.0 Height (Feet): 5 Height (Inches): 3.00 Weight (Pounds): 139 General Appearance: no acute distress HEENT: normocephalic, atraumatic, anicteric Respiratory/Chest: crackles/rales, rhonchi - bilaterally Cardiovascular: normal rate, regular rhythm, no gallop/murmur, no JVD Abdomen: normal bowel sounds, soft, non tender, no organomegaly, non distended Genitourinary: other - + hargrove - slt cloudy Extremities: no cyanosis, other - no cellulitis Skin: no rash, ulcers - wounds - covered Neurologic/Psychiatric: detention deputy 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 normal, alert, responsive Lymphatic: no neck adenopathy Musculoskeletal: no effusion Objective Procedure: XRAY Chest 1v Indication: Dyspnea Chest x-ray - 06/29/19 - Technique: One view of the chest Comparison: 06/25/2019 Findings: Interim expansion of previously atelectatic left lung. There is considerable interstitial and airspace disease throughout the left lung, however. Less extensive interstitial congestion is seen in the right lung. The heart size is normal. The aorta is tortuous and calcified Impression: Interim reexpansion of previously atelectatic left lung. However, there is considerable infiltrate and/or edema throughout the left lung. There is also persistent mild generalized interstitial congestion in the right lung CT Chest: IMPRESSION: Extensive airspace consolidation in the left lung involving the left perihilar, upper lobe and left lower lobe. Findings suspicious for pneumonia, especially aspiration given the abrupt onset. Please correlate clinically. Partial atelectasis of the left lower lobe also noted. Atherosclerotic vascular disease. Degenerative changes of the spine and scoliosis. CT abdomen and pelvis: IMPRESSION: No acute findings appreciated. Study limited by the lack of intravenous oral contrast as well as extensive motion artifact. 1.6 cm probable cystic lesion in the pancreatic tail. This requires further evaluation with the contrast CT or MR. Status post previous partial bowel resection. 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 Degenerative changes as described above. Chest x-ray - 07/01/19 - Procedure: XRAY Chest 1v Indication: Dyspnea Comparison: 06/30/2019 A single view chest radiograph was obtained. Findings: Interstitial densities demonstrated with cardiomegaly. There is blunting of the left costophrenic angle. There is a weighted feeding tube the tip of which is projected over the antrum and pyloric region. IMPRESSION: Mild interstitial edema presumably due to heart failure. Correlate clinically Abdominal US: IMPRESSION: No acute findings appreciated. Bilateral pleural effusions Cyst in the splenic hilar region. Contracted gallbladder with prominent wall. CT scan of abdomen and pelvis - 07/02/19 - Impression: 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 Otherwise unremarkable pancreas Small left pleural effusion, new since prior study of 06/24/2019. Bilateral basilar atelectasis and consolidation, increased from the prior exam No acute abnormality otherwise Nasogastric tube in good position Chest x-ray - 07/06/19 - IMPRESSION: 1. No significant interval change from the prior chest x-ray. 2. Pulmonary vascular congestion and/or pulmonary interstitial edema. 3. Possible small layering pleural effusions, greater on the left. 4. Left lung base/retrocardiac subsegmental atelectasis versus infiltrate. Microbiology Date/Time Source Procedure Growth Status 06/29/19 14:25 Blood Blood Culture - Final NO GROWTH AFTER 5 DAYS Complete 07/10/19 15:00 Stool Clostridium difficile Toxin Assay - Final Complete 07/04/19 18:29 Urine,Clean Catch Urine Culture - Final Melanie Albicans Complete Microbiology Date/Time Source Procedure Growth Status 07/10/19 15:00 Stool Clostridium difficile Toxin Assay - Final Complete Laboratory Tests Test 07/11/19 12:25 White Blood Count 7.2 K/UL (4.8-10.8) Red Blood Count 2.97 M/UL (4.20-5.40) L Hemoglobin 8.9 G/DL (12.0-16.0) L Hematocrit 27.5 % (37.0-47.0) L Mean Corpuscular Volume 93 FL (80-99) Mean Corpuscular Hemoglobin 29.9 PG (27.0-31.0) Mean Corpuscular Hemoglobin Concent 32.2 G/DL (32.0-36.0) Red Cell Distribution Width 14.2 % (11.6-14.8) Platelet Count 241 K/UL (150-450) Mean Platelet Volume 8.4 FL (6.5-10.1) Neutrophils (%) (Auto) 69.6 % (45.0-75.0) Lymphocytes (%) (Auto) 16.7 % (20.0-45.0) L Monocytes (%) (Auto) 11.4 % (1.0-10.0) H Eosinophils (%) (Auto) 1.2 % (0.0-3.0) Basophils (%) (Auto) 1.0 % (0.0-2.0) Sodium Level 144 MMOL/L (136-145) Potassium Level 3.1 MMOL/L (3.5-5.1) L Chloride Level 105 MMOL/L (98-107) Carbon Dioxide Level 26 MMOL/L (21-32) Anion Gap 13 mmol/L (5-15) Blood Urea Nitrogen 59 mg/dL (7-18) H Creatinine 2.8 MG/DL (0.55-1.30) H Estimat Glomerular Filtration Rate 19.3 mL/min (>60) Glucose Level 146 MG/DL (74-106) H Calcium Level 8.4 MG/DL (8.5-10.1) L Current Medications Medications (Trade) Dose Ordered Sig/Joan Route PRN Reason Start Time Stop Time Status Last Admin Dose Admin Acetaminophen (Tylenol) 650 mg Q4H PRN NG Mild Pain/Temp > 100.5 07/04/19 20:30 08/01/19 12:29 07/10/19 12:35 Acetylcysteine (Mucomyst) 100 mg Q4H PRN HHN Shortness of Breath 07/04/19 18:00 08/03/19 17:59 Albumin Human 100 ml @ 100 mls/hr NEEDED PRN IV DIALYSIS 07/04/19 19:00 08/03/19 18:59 07/06/19 01:30 Chlorhexidine Gluconate (Cari-Hex 2%) 1 applic DAILY@2000 TOPIC 07/04/19 20:00 07/26/19 19:59 07/10/19 21:26 Dextrose (Dextrose 50%) 25 ml Q30M PRN IV Hypoglycemia 07/04/19 20:00 07/24/19 19:51 Dextrose (Dextrose 50%) 50 ml Q30M PRN IV Hypoglycemia 07/04/19 20:00 07/24/19 19:51 Diphenhydramine HCl (Benadryl) 25 mg Q6H PRN ORAL Itching/Pruritis 07/04/19 20:00 07/24/19 19:51 Epoetin Dion (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)) 6,000 unit MON- SUBQ 07/08/19 21:00 08/07/19 20:59 07/10/19 21:26 Fluconazole (Diflucan) 100 mg DAILY ORAL 07/08/19 09:00 07/12/19 08:59 07/11/19 09:55 Furosemide (Lasix) 40 mg DAILY IV 07/05/19 09:00 07/30/19 19:59 07/11/19 09:55 Gabapentin (Neurontin) 300 mg BID GT 07/05/19 09:00 08/01/19 17:59 07/11/19 17:06 Guaifenesin/ Dextromethorphan (Robitussin DM Syrup) 10 ml Q4H PRN ORAL For Cough 07/10/19 12:37 10/08/19 12:36 07/11/19 10:05 Haloperidol Lactate (Haldol) 5 mg Q6H PRN IM Agitation 07/06/19 01:45 08/20/19 01:44 Ondansetron HCl (Zofran) 4 mg Q4H PRN IVP Nausea & Vomiting 07/04/19 20:00 08/02/19 19:59 Pantoprazole (Protonix) 40 mg DAILY IVP 07/05/19 09:00 07/30/19 08:59 07/11/19 09:55 Potassium Chloride (K-Dur) 20 meq ONCE GT 07/11/19 20:15 07/11/19 21:30 Ana Rosado MD Jul 11, 2019 20:39
[2019-07-11] MEDS: Dyna-Hex 2% Top Sol 2oz TOPIC SCH (21:03)
--- NOTE | 2019-07-11 21:11 | Consultation ---
History of Present Illness General Date patient seen: Jul 11, 2019 Reason for Hospitalization: Altered Level of Consciousness Present Illness HPI 88-year-old female brought in by EMS after unwitnessed fall and altered level of consciousness. Patient was noted to have adequate blood sugar greater than 100. She had been found on the floor with unknown last well time. She was noted to have some pressure sores to the right side of her body. She had some skin stuck to the floor apparently unknown date of injury. Patient had prior history of neuropathy and normally walks with a walker and is normally verbal. History is markedly limited by patient's mental status. Allergies: Coded Allergies: No Known Allergies (Unverified , 06/24/19) Medication History Scheduled Furosemide* (Lasix*), 20 MG ORAL TID, (Reported) Gabapentin* (Gabapentin*), 600 MG ORAL THREE TIMES A DAY, (Reported) Scheduled PRN Hydroxyzine HCl (Hydroxyzine HCl), 25 MG ORAL Q6HR PRN for Itching, (Reported) Oxycodone Hcl/Acetaminophen 10-325 Mg Tablet (Percocet 10-325 Mg Tablet*), 1 TAB ORAL Q6H PRN for For Pain, (Reported) Miscellaneous Medications [Unable To Obtain], (Reported) Patient History Healthcare decision maker Jami Palafox Resuscitation status Full Code Advanced Directive on File No Review of Systems Review of Symptoms unable Physical Exam Physical Exam General appearance: lethargic Head: Normocephalic, without obvious abnormality, atraumatic Eyes: conjunctivae/corneas clear. PERRL, EOM's intact. Fundi benign Throat: Lips, mucosa, and tongue normal. Teeth and gums normal Neck: supple, symmetrical, trachea midline, no adenopathy, thyroid: not enlarged, symmetric, no tenderness/mass/nodules, no carotid bruit and no JVD Lungs: clear to auscultation bilaterally Heart: regular rate and rhythm, S1, S2 normal, no murmur, click, rub or gallop Abdomen: soft, non-tender. Bowel sounds normal. No masses, no organomegaly Extremities: extremities normal, atraumatic, no cyanosis or edema Pulses: 2+ and symmetric Skin: Skin color, texture, turgor normal. No rashes or lesions Neurologic: somnolent, open eyes, withdraws all 4 Last 24 Hour Vital Signs Date Time Temp Pulse Resp B/P (MAP) Pulse Ox O2 Delivery O2 Flow Rate FiO2 07/11/19 16:00 98.7 101 20 136/74 (94) 98 07/11/19 12:00 98.9 97 21 134/82 (99) 98 07/11/19 09:00 Nasal Cannula 2.0 Nasal Cannula 2.0 07/11/19 08:00 99.0 99 22 123/70 (87) 99 07/11/19 04:00 99.2 110 24 126/67 (86) 100 07/11/19 00:00 98.5 105 22 123/69 (87) 100 07/10/19 21:19 98 Nasal Cannula 2.0 28 07/10/19 21:19 99 18 98 Nasal Cannula 2.0 28 Intake and Output 07/10/19 07/11/19 19:00 07:00 Intake Total 580 ml 620 ml Output Total 650 ml 2150 ml Balance -70 ml -1530 ml Free Water 100 ml 140 ml Tube Feeding 480 ml 480 ml Output Urine Total 650 ml 150 ml Hemodialysis UF 2000 ml # Bowel Movements 5 Laboratory Tests Test 07/11/19 12:25 White Blood Count 7.2 K/UL (4.8-10.8) Red Blood Count 2.97 M/UL (4.20-5.40) L Hemoglobin 8.9 G/DL (12.0-16.0) L Hematocrit 27.5 % (37.0-47.0) L Mean Corpuscular Volume 93 FL (80-99) Mean Corpuscular Hemoglobin 29.9 PG (27.0-31.0) Mean Corpuscular Hemoglobin Concent 32.2 G/DL (32.0-36.0) Red Cell Distribution Width 14.2 % (11.6-14.8) Platelet Count 241 K/UL (150-450) Mean Platelet Volume 8.4 FL (6.5-10.1) Neutrophils (%) (Auto) 69.6 % (45.0-75.0) Lymphocytes (%) (Auto) 16.7 % (20.0-45.0) L Monocytes (%) (Auto) 11.4 % (1.0-10.0) H Eosinophils (%) (Auto) 1.2 % (0.0-3.0) Basophils (%) (Auto) 1.0 % (0.0-2.0) Sodium Level 144 MMOL/L (136-145) Potassium Level 3.1 MMOL/L (3.5-5.1) L Chloride Level 105 MMOL/L (98-107) Carbon Dioxide Level 26 MMOL/L (21-32) Anion Gap 13 mmol/L (5-15) Blood Urea Nitrogen 59 mg/dL (7-18) H Creatinine 2.8 MG/DL (0.55-1.30) H Estimat Glomerular Filtration Rate 19.3 mL/min (>60) Glucose Level 146 MG/DL (74-106) H Calcium Level 8.4 MG/DL (8.5-10.1) L Height (Feet): 5 Height (Inches): 3.00 Weight (Pounds): 139 Medications Current Medications Medications (Trade) Dose Ordered Sig/Joan Route PRN Reason Start Time Stop Time Status Last Admin Dose Admin Acetaminophen (Tylenol) 650 mg Q4H PRN NG Mild Pain/Temp > 100.5 07/04/19 20:30 08/01/19 12:29 07/10/19 12:35 Acetylcysteine (Mucomyst) 100 mg Q4H PRN HHN Shortness of Breath 07/04/19 18:00 08/03/19 17:59 Albumin Human 100 ml @ 100 mls/hr NEEDED PRN IV DIALYSIS 07/04/19 19:00 08/03/19 18:59 07/06/19 01:30 Chlorhexidine Gluconate (Cari-Hex 2%) 1 applic DAILY@2000 TOPIC 07/04/19 20:00 07/26/19 19:59 07/11/19 21:03 Dextrose (Dextrose 50%) 25 ml Q30M PRN IV Hypoglycemia 07/04/19 20:00 07/24/19 19:51 Dextrose (Dextrose 50%) 50 ml Q30M PRN IV Hypoglycemia 07/04/19 20:00 07/24/19 19:51 Diphenhydramine HCl (Benadryl) 25 mg Q6H PRN ORAL Itching/Pruritis 07/04/19 20:00 07/24/19 19:51 Epoetin Dion (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)) 6,000 unit MON-MON-MON SUBQ 07/08/19 21:00 08/07/19 20:59 07/10/19 21:26 Fluconazole (Diflucan) 100 mg DAILY ORAL 07/08/19 09:00 07/12/19 08:59 07/11/19 09:55 Furosemide (Lasix) 40 mg DAILY IV 07/05/19 09:00 07/30/19 19:59 07/11/19 09:55 Gabapentin (Neurontin) 300 mg BID GT 07/05/19 09:00 08/01/19 17:59 07/11/19 17:06 Guaifenesin/ Dextromethorphan (Robitussin DM Syrup) 10 ml Q4H PRN ORAL For Cough 07/10/19 12:37 10/08/19 12:36 07/11/19 10:05 Haloperidol Lactate (Haldol) 5 mg Q6H PRN IM Agitation 07/06/19 01:45 08/20/19 01:44 Ondansetron HCl (Zofran) 4 mg Q4H PRN IVP Nausea & Vomiting 07/04/19 20:00 08/02/19 19:59 Pantoprazole (Protonix) 40 mg DAILY IVP 07/05/19 09:00 07/30/19 08:59 07/11/19 09:55 Potassium Chloride (K-Dur) 20 meq ONCE GT 07/11/19 20:15 07/11/19 21:30 07/11/19 21:03 Assessment/Plan Problem List: (1) Metabolic acidosis ICD Codes: E87.2 - Acidosis SNOMED: 91891324 (2) Decubitus skin ulcer ICD Codes: L89.90 - Pressure ulcer of unspecified site, unspecified stage SNOMED: 282516107 (3) Rhabdomyolysis ICD Codes: M62.82 - Rhabdomyolysis SNOMED: 845246009 (4) Fall ICD Codes: W19.XXXA - Unspecified fall, initial encounter SNOMED: 1445603, 705370150 (5) Altered level of consciousness Assessment & Plan: cc 35 min ICD Codes: R40.4 - Transient alteration of awareness SNOMED: 6747994 (6) Fracture of lumbar spine ICD Codes: S32.009A - Unspecified fracture of unspecified lumbar vertebra, initial encounter for closed fracture SNOMED: 381675461 (7) KAREN (acute kidney injury) ICD Codes: N17.9 - Acute kidney failure, unspecified SNOMED: 6150808, 44068868 Assessment/Plan: Baseline dementia with acute encephalopathy, coursed wiht delirium, karen, sepsis Monitor neuro exam for improvement PT OT as tolerated ATB per primary [facility] Hospital declaration INPATIENT level of care is warranted for this patient because patient is a 89 year old with who presents with suspicion of . I have a high level of concern because . Patient is at high risk for . Plan of care/treatment include . Patient care is expected to be greater than 2 midnights. OBSERVATION level of care is warranted for this patient. Patient is a 89 year old with who presents with . Patient will be admitted for 1 midnight, but if additional night(s) is/are necessary, patient will be converted to inpatient status for the entire hospitalization Disposition: Once the patient is stable to leave the hospital, I anticipate the patient will likely be discharged to the following environment: Estimated discharge date: I spent 70 minutes on this patient's case, and minutes was dedicated to counseling and/or care coordination. MIPS (Merit-based Incentive Payment System) Applicable CPT: 15837, 60499 CHECK ALL THAT ARE MET: Measure #5 (CHF): All ages. Prescribe JASMYN/ARB upon discharge for patients with left ventricular systolic dysfunction. If not, the reason is clearly documented in the medical chart. Measure #8 (CHF): All ages. Prescribe a beta barbra upon discharge for patients with left ventricular systolic dysfunction. If not, the reason is clearly documented in the medical chart. Measure #47 Advance care plan or surrogate decision maker documented in the medical record. Measure #130 The provider has documented, updated, or reviewed the patients current medication list and has documented it in the patients note. Measure #374 (All): Send report to referring provider. Measure #407(Sepsis due to MSSA bacteremia): Age 18+ Patient treated with a beta-lactam antibiotic (Nafcillin, Oxacillin or Cefazolin) as definitive therapy. MEDICAL COMPLEXITY High complexity medical decision making (need 2/3 categories) Problem - need 4 points Acute/new problem with new plan for workup (4 points, 1 max) Acute/new problem without additional workup (3 points, 1 max) Unstable chronic problem actively being managed (2 point each, 2 max) Stable chronic problem actively being managed (1 point each, 2 max) Self-limited/transient process (constipation, muscle ache, etc) (1 point each , 2 max) Data - need 4 points Reviewed labs/imaging studies (1 points, 2 max) Independent review of imaging (EKG, xrays, etc) (2 points, 2 max) Discussed case with consult/other MD/RN (2 points, 2 max) High Risk - qualify if have one of the following: Severe exacerbation of acute problem, acute mental status change, IV narcotics , monitoring drug levels (vancomycin, INR, tacrolimus etc) Sushil Stevenson MD Jul 11, 2019 21:11
--- NOTE | 2019-07-11 22:15 | Progress Note ---
DATE: 07/11/2019 SUBJECTIVE: The patient is in bed, no acute distress noted. The patient has episodes of agitation and requires p.r.n. medications. MENTAL STATUS EXAMINATION: The patient is alert and oriented to herself. Mood is agitated. Affect is flat. Thought process is concrete. Thought content, no suicidal or homicidal ideation. ASSESSMENT: 1. Acute encephalopathy. 2. Dementia. PLAN: 1. We will continue current medications. 2. Provide the patient with reality orientation and supportive therapy. Jaime Jackson M.D. DR: SHAWN JOB#: [id number] CC:
[2019-07-12 04:00] VITALS: BP 142/72
[2019-07-12 06:40] LABS: BASOPHILS % (AUTO) 0.5 % (0.0-2.0); EOSINOPHILS % (AUTO) 2.1 % (0.0-3.0); HEMATOCRIT 27.7 % (37.0-47.0); HEMOGLOBIN 9.5 G/DL (12.0-16.0); LYMPHOCYTES % (AUTO) 20.5 % (20.0-45.0); MEAN CORPUSCULAR VOLUME 91 FL (80-99); MONOCYTES % (AUTO) 12.9 % (1.0-10.0); PLATELET COUNT 239 K/UL (150-450); RED BLOOD COUNT 3.05 M/UL (4.20-5.40); RED CELL DISTRIBUTION WIDTH 13.4 % (11.6-14.8)
--- NOTE | 2019-07-12 07:10 | General Progress Note ---
Assessment/Plan Problem List: (1) KAREN (acute kidney injury) ICD Codes: N17.9 - Acute kidney failure, unspecified SNOMED: 6946458, 65789072 (2) Altered level of consciousness ICD Codes: R40.4 - Transient alteration of awareness SNOMED: 1575597 Status: stable Assessment/Plan: dysphagia elevated LFTS pancreatitis based on elevated lipase fatty liver ESRD pancreatic cyst anemia stool ob positive GTF repeat labs abx per ID CT reviewed improving LFTS, wbc and lipase abx per ID HD per nephrology s/p blood transfusion pending placement Subjective ROS Limited/Unobtainable: No Allergies: Coded Allergies: No Known Allergies (Unverified , 06/24/19) Objective Last 24 Hour Vital Signs Date Time Temp Pulse Resp B/P (MAP) Pulse Ox O2 Delivery O2 Flow Rate FiO2 07/12/19 04:00 98.3 100 20 142/72 (95) 100 07/11/19 23:56 98.4 99 21 139/63 (88) 98 07/11/19 21:00 Nasal Cannula 2.0 Nasal Cannula 2.0 07/11/19 20:00 99.2 101 22 123/54 (77) 98 07/11/19 19:40 99 Nasal Cannula 2.0 28 07/11/19 19:40 97 18 99 Nasal Cannula 2.0 28 07/11/19 16:00 98.7 101 20 136/74 (94) 98 07/11/19 12:00 98.9 97 21 134/82 (99) 98 07/11/19 09:00 Nasal Cannula 2.0 Nasal Cannula 2.0 07/11/19 08:00 99.0 99 22 123/70 (87) 99 Intake and Output 07/11/19 07/12/19 19:00 07:00 Intake Total 580 ml 540 ml Output Total 200 ml Balance 580 ml 340 ml Free Water 100 ml 100 ml Tube Feeding 480 ml 440 ml Output Urine Total 200 ml # Bowel Movements 1 Laboratory Tests 07/11/19 12:25: White Blood Count 7.2, Red Blood Count 2.97L, Hemoglobin 8.9L, Hematocrit 27.5L , Mean Corpuscular Volume 93, Mean Corpuscular Hemoglobin 29.9, Mean Corpuscular Hemoglobin Concent 32.2, Red Cell Distribution Width 14.2, Platelet Count 241, Mean Platelet Volume 8.4, Neutrophils (%) (Auto) 69.6, Lymphocytes (% ) (Auto) 16.7L, Monocytes (%) (Auto) 11.4H, Eosinophils (%) (Auto) 1.2, Basophils (%) (Auto) 1.0, Sodium Level 144, Potassium Level 3.1L, Chloride Level 105, Carbon Dioxide Level 26, Anion Gap 13, Blood Urea Nitrogen 59H, Creatinine 2.8H, Estimat Glomerular Filtration Rate 19.3, Glucose Level 146H, Calcium Level 8.4L 07/12/19 05:20: White Blood Count 8.0, Red Blood Count 3.05L, Hemoglobin 9.5L, Hematocrit 27.7L , Mean Corpuscular Volume 91, Mean Corpuscular Hemoglobin 31.2H, Mean Corpuscular Hemoglobin Concent 34.4, Red Cell Distribution Width 13.4, Platelet Count 239, Mean Platelet Volume 8.2, Neutrophils (%) (Auto) 64.0, Lymphocytes (% ) (Auto) 20.5, Monocytes (%) (Auto) 12.9H, Eosinophils (%) (Auto) 2.1, Basophils (%) (Auto) 0.5, Sodium Level [Pending], Potassium Level [Pending], Chloride Level [Pending], Carbon Dioxide Level [Pending], Blood Urea Nitrogen [ Pending], Creatinine [Pending], Estimat Glomerular Filtration Rate [Pending], Glucose Level [Pending], Calcium Level [Pending] Height (Feet): 5 Height (Inches): 3.00 Weight (Pounds): 139 General Appearance: no apparent distress EENT: normal ENT inspection Neck: supple Cardiovascular: normal rate Respiratory/Chest: decreased breath sounds Abdomen: normal bowel sounds, non tender, soft Extremities: non-tender Jun Mena MD Jul 12, 2019 07:10
[2019-07-12 07:15] LABS: ANION GAP 14 mmol/L (5-15); BLOOD UREA NITROGEN 85 mg/dL (7-18); CALCIUM 9.6 MG/DL (8.5-10.1); CARBON DIOXIDE 28 MMOL/L (21-32); CHLORIDE 108 MMOL/L (98-107); CREATININE 3.4 MG/DL (0.55-1.30); POTASSIUM 3.4 MMOL/L (3.5-5.1); SODIUM 150 MMOL/L (136-145)
[2019-07-12 08:00] VITALS: BP 103/70
--- NOTE | 2019-07-12 08:14 | Hematology/Onc Progress Note ---
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 Otherwise unremarkable pancreas --> as per gi, may need further eval with endsocopy --> with pancreatitis at this time, may be obscuring picture --> reimage in short order, 6 months --> ca19.9 60 but may be elevated due to pancreatitis --> cea of 10 --> monitor lfts daily # Leukocytosis/elevated white blood cell count, unspecified likely related to underlying stress reaction, smoking v more likely infection in this case, bacteremia --> have reviewed peripheral smear and bandemia/neutrophilia noted --> continue antibiotics if they have been started by ID team --> monitor for resolution --> as per id care, on broad spectrum abx --> wbc 30-->21-->18.7 -->5 --> abx: bethany/linezolid --> bethany/fuc --> per id recs # Anemia of chronic disease due to underlying chronic medical issues, multifactorial v Gi bleed --> Anemia workup has been reviewed, ferritin 1300 --> No evidence of hemolysis is noted, peripheral smear has been reviewed. --> Hgb goal >7. Transfuse prn. --> Epogen has been started --> Medications have been reviewed --> hgb 8.7-->7.4-->6.3-->10 --> low threshold for gi evaluation in case has occult + --> bone marrow biopsy is not indicated given the other more likely causes # Thrombocytopenia - potential causes multifactorial, evaluate liver and viral etiologies to begin, in this case due to sepsisand pancreatitis --> Hep panel and HIV are both negative --> US abd to evaluate for cirrhosis and hsm --> pleural effusions noted, hsm is neg --> Peripheral smear ordered to evaluate for blasts /schistocytes --> abx and other meds have been reviewed --> ok for ppx if plt >50k w/ either heparin or lovenox # Acute renal failure - on HD UF --> hd with fem left omari ==> per renal hd # 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 Greatly appreciate consultation. Subjective Constitutional: Denies: no symptoms, chills, fever, malaise, weakness, other HEENT: Denies: no symptoms, eye pain, blurred vision, tearing, double vision, ear pain, ear discharge, nose pain, nose congestion, throat pain, throat swelling, mouth pain, mouth swelling, other Cardiovascular: Denies: no symptoms, chest pain, edema, irregular heart rate, lightheadedness, palpitations, syncope, other Respiratory: Denies: no symptoms, cough, shortness of breath, SOB with excertion, SOB at rest, sputum, wheezing, other Gastrointestinal/Abdominal: Denies: no symptoms, abdomen distended, abdominal pain, black stools, tarry stools, blood in stool, constipated, diarrhea, difficulty swallowing, nausea, poor appetite, poor fluid intake, rectal bleeding , vomiting, other Neurologic/Psychiatric: Denies: no symptoms, anxiety, depressed, emotional problems, headache, numbness, paresthesia, pre-existing deficit, seizure, tingling, tremors, weakness, other Endocrine: Denies: no symptoms, excessive sweating, flushing, intolerance to cold, intolerance to heat, increased hunger, increased thirst, increased urine, unexplained weight gain, unexplained weight loss, other Allergies: Coded Allergies: No Known Allergies (Unverified , 06/24/19) Subjective 07/02: resting in bed, appears to be comfortable, no bleeding, on merop, no events 07/03: is crying with ng tube, no bleeding, labs noted, no night swaets, lytes to be replted 07/04: hgb 8.2, hd for today, hep and hiv negative, nc, on bethany 07/05 to get hd for monday, no bleeding, labs reported, dw pcp, peg working 07/06 labs pending, afebrile, no sob, on abx 07/08 no major changes, hd done yesterday, no bleeding or night sweats 07/09 remains on epogen, no bleeding, labs noted, no major events, hgb 10 07/10 labs reviewed, no bleeding, no major events overnight 07/11 no major changes, labs noted, no bleeding, hgb 9.5 Objective Objective Current Medications Medications (Trade) Dose Ordered Sig/Joan Route PRN Reason Start Time Stop Time Status Last Admin Dose Admin Acetaminophen (Tylenol) 650 mg Q4H PRN NG Mild Pain/Temp > 100.5 07/04/19 20:30 08/01/19 12:29 07/10/19 12:35 Acetylcysteine (Mucomyst) 100 mg Q4H PRN HHN Shortness of Breath 07/04/19 18:00 08/03/19 17:59 Albumin Human 100 ml @ 100 mls/hr NEEDED PRN IV DIALYSIS 07/04/19 19:00 08/03/19 18:59 07/06/19 01:30 Chlorhexidine Gluconate (Cari-Hex 2%) 1 applic DAILY@2000 TOPIC 07/04/19 20:00 07/26/19 19:59 07/11/19 21:03 Dextrose (Dextrose 50%) 25 ml Q30M PRN IV Hypoglycemia 07/04/19 20:00 07/24/19 19:51 Dextrose (Dextrose 50%) 50 ml Q30M PRN IV Hypoglycemia 07/04/19 20:00 07/24/19 19:51 Diphenhydramine HCl (Benadryl) 25 mg Q6H PRN ORAL Itching/Pruritis 07/04/19 20:00 07/24/19 19:51 Epoetin Dion (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)) 6,000 unit MON-MON-MON SUBQ 07/08/19 21:00 08/07/19 20:59 07/10/19 21:26 Fluconazole (Diflucan) 100 mg DAILY ORAL 07/08/19 09:00 07/12/19 08:59 07/11/19 09:55 Furosemide (Lasix) 40 mg DAILY IV 07/05/19 09:00 07/30/19 19:59 07/11/19 09:55 Gabapentin (Neurontin) 300 mg BID GT 07/05/19 09:00 08/01/19 17:59 07/11/19 17:06 Guaifenesin/ Dextromethorphan (Robitussin DM Syrup) 10 ml Q4H PRN ORAL For Cough 07/10/19 12:37 10/08/19 12:36 07/11/19 10:05 Haloperidol Lactate (Haldol) 5 mg Q6H PRN IM Agitation 07/06/19 01:45 08/20/19 01:44 Ondansetron HCl (Zofran) 4 mg Q4H PRN IVP Nausea & Vomiting 07/04/19 20:00 08/02/19 19:59 Pantoprazole (Protonix) 40 mg DAILY IVP 07/05/19 09:00 07/30/19 08:59 07/11/19 09:55 Last 24 Hour Vital Signs Date Time Temp Pulse Resp B/P (MAP) Pulse Ox O2 Delivery O2 Flow Rate FiO2 07/12/19 07:28 96 20 98 Nasal Cannula 2.0 28 07/12/19 07:28 98 Nasal Cannula 2.0 28 07/12/19 04:00 98.3 100 20 142/72 (95) 100 07/11/19 23:56 98.4 99 21 139/63 (88) 98 07/11/19 21:00 Nasal Cannula 2.0 Nasal Cannula 2.0 07/11/19 20:00 99.2 101 22 123/54 (77) 98 07/11/19 19:40 99 Nasal Cannula 2.0 28 07/11/19 19:40 97 18 99 Nasal Cannula 2.0 28 07/11/19 16:00 98.7 101 20 136/74 (94) 98 07/11/19 12:00 98.9 97 21 134/82 (99) 98 07/11/19 09:00 Nasal Cannula 2.0 Nasal Cannula 2.0 07/11/19 08:00 99.0 99 22 123/70 (87) 99 07/11/19 04:00 99.2 110 24 126/67 (86) 100 07/11/19 00:00 98.5 105 22 123/69 (87) 100 07/10/19 21:19 98 Nasal Cannula 2.0 28 07/10/19 21:19 99 18 98 Nasal Cannula 2.0 28 07/10/19 21:00 Nasal Cannula 2.0 Nasal Cannula 2.0 07/10/19 20:00 98.0 100 22 112/50 (70) 100 07/10/19 16:00 97.6 110 19 149/75 (99) 95 07/10/19 12:00 97.9 105 20 158/81 (106) 99 07/10/19 09:00 Nasal Cannula 2.0 Nasal Cannula 2.0 Intake and Output 07/11/19 07/12/19 19:00 07:00 Intake Total 580 ml 540 ml Output Total 200 ml Balance 580 ml 340 ml Free Water 100 ml 100 ml Tube Feeding 480 ml 440 ml Output Urine Total 200 ml # Bowel Movements 1 Labs Test 07/10/19 05:45 07/11/19 12:25 07/12/19 05:20 White Blood Count 9.9 K/UL (4.8-10.8) 7.2 K/UL (4.8-10.8) 8.0 K/UL (4.8-10.8) Red Blood Count 3.36 M/UL (4.20-5.40) 2.97 M/UL (4.20-5.40) 3.05 M/UL (4.20-5.40) Hemoglobin 10.4 G/DL (12.0-16.0) 8.9 G/DL (12.0-16.0) 9.5 G/DL (12.0-16.0) Hematocrit 30.2 % (37.0-47.0) 27.5 % (37.0-47.0) 27.7 % (37.0-47.0) Mean Corpuscular Volume 90 FL (80-99) 93 FL (80-99) 91 FL (80-99) Mean Corpuscular Hemoglobin 30.9 PG (27.0-31.0) 29.9 PG (27.0-31.0) 31.2 PG (27.0-31.0) Mean Corpuscular Hemoglobin Concent 34.3 G/DL (32.0-36.0) 32.2 G/DL (32.0-36.0) 34.4 G/DL (32.0-36.0) Red Cell Distribution Width 13.3 % (11.6-14.8) 14.2 % (11.6-14.8) 13.4 % (11.6-14.8) Platelet Count 297 K/UL (150-450) 241 K/UL (150-450) 239 K/UL (150-450) Mean Platelet Volume 7.2 FL (6.5-10.1) 8.4 FL (6.5-10.1) 8.2 FL (6.5-10.1) Neutrophils (%) (Auto) 78.9 % (45.0-75.0) 69.6 % (45.0-75.0) 64.0 % (45.0-75.0) Lymphocytes (%) (Auto) 10.4 % (20.0-45.0) 16.7 % (20.0-45.0) 20.5 % (20.0-45.0) Monocytes (%) (Auto) 9.3 % (1.0-10.0) 11.4 % (1.0-10.0) 12.9 % (1.0-10.0) Eosinophils (%) (Auto) 1.1 % (0.0-3.0) 1.2 % (0.0-3.0) 2.1 % (0.0-3.0) Basophils (%) (Auto) 0.4 % (0.0-2.0) 1.0 % (0.0-2.0) 0.5 % (0.0-2.0) Sodium Level 152 MMOL/L (136-145) 144 MMOL/L (136-145) 150 MMOL/L (136-145) Potassium Level 3.8 MMOL/L (3.5-5.1) 3.1 MMOL/L (3.5-5.1) 3.4 MMOL/L (3.5-5.1) Chloride Level 111 MMOL/L (98-107) 105 MMOL/L (98-107) 108 MMOL/L (98-107) Carbon Dioxide Level 25 MMOL/L (21-32) 26 MMOL/L (21-32) 28 MMOL/L (21-32) Anion Gap 16 mmol/L (5-15) 13 mmol/L (5-15) 14 mmol/L (5-15) Blood Urea Nitrogen 110 mg/dL (7-18) 59 mg/dL (7-18) 85 mg/dL (7-18) Creatinine 4.0 MG/DL (0.55-1.30) 2.8 MG/DL (0.55-1.30) 3.4 MG/DL (0.55-1.30) Estimat Glomerular Filtration Rate 12.7 mL/min (>60) 19.3 mL/min (>60) 15.4 mL/min (>60) Glucose Level 168 MG/DL (74-106) 146 MG/DL (74-106) 150 MG/DL (74-106) Calcium Level 10.4 MG/DL (8.5-10.1) 8.4 MG/DL (8.5-10.1) 9.6 MG/DL (8.5-10.1) Height (Feet): 5 Height (Inches): 3.00 Weight (Pounds): 139 Objective Physical Exam: Vitals: reviewed General: NAD, groans to pain stimuli HEENT: nc, at Neck: supple Chest: clear breath sounds bilaterally Cardiovascular: RRR, no s3, s4 Abdomen: soft, nontender, nd++ peg Extremities: no cce, normal range of motion Neuro: alert and oriented Skin: other - pressure sores to right side Bola Aldridge MD Jul 12, 2019 08:14
--- NOTE | 2019-07-12 09:25 | Urology Progress Note ---
Assessment/Plan Status: stable Assessment/Plan: 1. Gross hematuria, improving. 2. End-stage renal disease. 3. Urinary retention. 4. Possible neurogenic bladder. 5. Urinary tract infection and colonization. 6. Proteinuria. 7. Acute kidney injury history. monitor clinically hargrove hand irrigated and do PRN s/p abx and diflucan HD per nephrology cysto later dc hargrove? d/w nursing staff Subjective Allergies: Coded Allergies: No Known Allergies (Unverified , 06/24/19) Subjective all noted, looks comfortable Objective Last 24 Hour Vital Signs Date Time Temp Pulse Resp B/P (MAP) Pulse Ox O2 Delivery O2 Flow Rate FiO2 07/12/19 08:00 98.0 96 20 103/70 (81) 96 07/12/19 07:28 96 20 98 Nasal Cannula 2.0 28 07/12/19 07:28 98 Nasal Cannula 2.0 28 07/12/19 04:00 98.3 100 20 142/72 (95) 100 07/11/19 23:56 98.4 99 21 139/63 (88) 98 07/11/19 21:00 Nasal Cannula 2.0 Nasal Cannula 2.0 07/11/19 20:00 99.2 101 22 123/54 (77) 98 07/11/19 19:40 99 Nasal Cannula 2.0 28 07/11/19 19:40 97 18 99 Nasal Cannula 2.0 28 07/11/19 16:00 98.7 101 20 136/74 (94) 98 07/11/19 12:00 98.9 97 21 134/82 (99) 98 Intake and Output 07/11/19 07/12/19 19:00 07:00 Intake Total 580 ml 540 ml Output Total 200 ml Balance 580 ml 340 ml Free Water 100 ml 100 ml Tube Feeding 480 ml 440 ml Output Urine Total 200 ml # Bowel Movements 1 Microbiology Date/Time Source Procedure Growth Status 06/29/19 14:25 Blood Blood Culture - Final NO GROWTH AFTER 5 DAYS Complete 07/10/19 15:00 Stool Clostridium difficile Toxin Assay - Final Complete 07/04/19 18:29 Urine,Clean Catch Urine Culture - Final Melanie Albicans Complete Current Medications Medications (Trade) Dose Ordered Sig/Joan Route PRN Reason Start Time Stop Time Status Last Admin Dose Admin Acetaminophen (Tylenol) 650 mg Q4H PRN NG Mild Pain/Temp > 100.5 07/04/19 20:30 08/01/19 12:29 07/10/19 12:35 Acetylcysteine (Mucomyst) 100 mg Q4H PRN HHN Shortness of Breath 07/04/19 18:00 08/03/19 17:59 Albumin Human 100 ml @ 100 mls/hr NEEDED PRN IV DIALYSIS 07/04/19 19:00 08/03/19 18:59 07/06/19 01:30 Chlorhexidine Gluconate (Cari-Hex 2%) 1 applic DAILY@2000 TOPIC 07/04/19 20:00 07/26/19 19:59 07/11/19 21:03 Dextrose (Dextrose 50%) 25 ml Q30M PRN IV Hypoglycemia 07/04/19 20:00 07/24/19 19:51 Dextrose (Dextrose 50%) 50 ml Q30M PRN IV Hypoglycemia 07/04/19 20:00 07/24/19 19:51 Diphenhydramine HCl (Benadryl) 25 mg Q6H PRN ORAL Itching/Pruritis 07/04/19 20:00 07/24/19 19:51 Epoetin Dion (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)) 6,000 unit MON-MON-MON SUBQ 07/08/19 21:00 08/07/19 20:59 07/10/19 21:26 Furosemide (Lasix) 40 mg DAILY IV 07/05/19 09:00 07/30/19 19:59 07/11/19 09:55 Gabapentin (Neurontin) 300 mg BID GT 07/05/19 09:00 08/01/19 17:59 07/11/19 17:06 Guaifenesin/ Dextromethorphan (Robitussin DM Syrup) 10 ml Q4H PRN ORAL For Cough 07/10/19 12:37 10/08/19 12:36 07/11/19 10:05 Haloperidol Lactate (Haldol) 5 mg Q6H PRN IM Agitation 07/06/19 01:45 08/20/19 01:44 Ondansetron HCl (Zofran) 4 mg Q4H PRN IVP Nausea & Vomiting 07/04/19 20:00 08/02/19 19:59 Pantoprazole (Protonix) 40 mg DAILY IVP 07/05/19 09:00 07/30/19 08:59 07/11/19 09:55 Laboratory Tests 07/11/19 12:25: White Blood Count 7.2, Red Blood Count 2.97L, Hemoglobin 8.9L, Hematocrit 27.5L , Mean Corpuscular Volume 93, Mean Corpuscular Hemoglobin 29.9, Mean Corpuscular Hemoglobin Concent 32.2, Red Cell Distribution Width 14.2, Platelet Count 241, Mean Platelet Volume 8.4, Neutrophils (%) (Auto) 69.6, Lymphocytes (% ) (Auto) 16.7L, Monocytes (%) (Auto) 11.4H, Eosinophils (%) (Auto) 1.2, Basophils (%) (Auto) 1.0, Sodium Level 144, Potassium Level 3.1L, Chloride Level 105, Carbon Dioxide Level 26, Anion Gap 13, Blood Urea Nitrogen 59H, Creatinine 2.8H, Estimat Glomerular Filtration Rate 19.3, Glucose Level 146H, Calcium Level 8.4L 07/12/19 05:20: White Blood Count 8.0, Red Blood Count 3.05L, Hemoglobin 9.5L, Hematocrit 27.7L , Mean Corpuscular Volume 91, Mean Corpuscular Hemoglobin 31.2H, Mean Corpuscular Hemoglobin Concent 34.4, Red Cell Distribution Width 13.4, Platelet Count 239, Mean Platelet Volume 8.2, Neutrophils (%) (Auto) 64.0, Lymphocytes (% ) (Auto) 20.5, Monocytes (%) (Auto) 12.9H, Eosinophils (%) (Auto) 2.1, Basophils (%) (Auto) 0.5, Sodium Level 150H, Potassium Level 3.4L, Chloride Level 108H, Carbon Dioxide Level 28, Anion Gap 14, Blood Urea Nitrogen 85H, Creatinine 3.4H, Estimat Glomerular Filtration Rate 15.4, Glucose Level 150H, Calcium Level 9.6 Height (Feet): 5 Height (Inches): 3.00 Weight (Pounds): 139 Objective exam stable hargrove indwelling urine blood-tinged/neal Bamshad,Omar Tillman MD Jul 12, 2019 09:25
[2019-07-12] MEDS: Pantoprazole Inj IVP SCH (09:39)
[2019-07-12] MEDS: Gabapentin 300 MG/6 ML Soln GT SCH ×2 (09:39→17:28)
--- NOTE | 2019-07-12 10:00 | Pulmonology Progress Note ---
Assessment/Plan Assessment/Plan IMPRESSION: 1. Left lung pneumonia. Latest CXR shows significant clearing 2. Pulmonary edema. 3. Respiratory failure; now off BiPAP DISCUSSION: Continue antibiotics per ID Dialysis per renal Use BiPAP prn. Supplemental O2. I will continue to follow carefully. Abrahan Samaniego M.D. Subjective Interval Events: None new Constitutional: Reports: no symptoms HEENT: Repors: no symptoms Respiratory: Reports: no symptoms Cardiovascular: Reports: no symptoms Gastrointestinal/Abdominal: Reports: no symptoms Allergies: Coded Allergies: No Known Allergies (Unverified , 06/24/19) Objective Last 24 Hour Vital Signs Date Time Temp Pulse Resp B/P (MAP) Pulse Ox O2 Delivery O2 Flow Rate FiO2 07/12/19 08:00 98.0 96 20 103/70 (81) 96 07/12/19 07:28 96 20 98 Nasal Cannula 2.0 28 07/12/19 07:28 98 Nasal Cannula 2.0 28 07/12/19 04:00 98.3 100 20 142/72 (95) 100 07/11/19 23:56 98.4 99 21 139/63 (88) 98 07/11/19 21:00 Nasal Cannula 2.0 Nasal Cannula 2.0 07/11/19 20:00 99.2 101 22 123/54 (77) 98 07/11/19 19:40 99 Nasal Cannula 2.0 28 07/11/19 19:40 97 18 99 Nasal Cannula 2.0 28 07/11/19 16:00 98.7 101 20 136/74 (94) 98 07/11/19 12:00 98.9 97 21 134/82 (99) 98 Intake and Output 07/11/19 07/12/19 19:00 07:00 Intake Total 580 ml 540 ml Output Total 200 ml Balance 580 ml 340 ml Free Water 100 ml 100 ml Tube Feeding 480 ml 440 ml Output Urine Total 200 ml # Bowel Movements 1 General Appearance: no acute distress HEENT: normocephalic Respiratory/Chest: chest wall non-tender Cardiovascular: normal peripheral pulses Abdomen: normal bowel sounds Microbiology Date/Time Source Procedure Growth Status 07/10/19 15:00 Stool Clostridium difficile Toxin Assay - Final Complete Laboratory Tests 07/11/19 12:25: White Blood Count 7.2, Red Blood Count 2.97L, Hemoglobin 8.9L, Hematocrit 27.5L , Mean Corpuscular Volume 93, Mean Corpuscular Hemoglobin 29.9, Mean Corpuscular Hemoglobin Concent 32.2, Red Cell Distribution Width 14.2, Platelet Count 241, Mean Platelet Volume 8.4, Neutrophils (%) (Auto) 69.6, Lymphocytes (% ) (Auto) 16.7L, Monocytes (%) (Auto) 11.4H, Eosinophils (%) (Auto) 1.2, Basophils (%) (Auto) 1.0, Sodium Level 144, Potassium Level 3.1L, Chloride Level 105, Carbon Dioxide Level 26, Anion Gap 13, Blood Urea Nitrogen 59H, Creatinine 2.8H, Estimat Glomerular Filtration Rate 19.3, Glucose Level 146H, Calcium Level 8.4L 07/12/19 05:20: White Blood Count 8.0, Red Blood Count 3.05L, Hemoglobin 9.5L, Hematocrit 27.7L , Mean Corpuscular Volume 91, Mean Corpuscular Hemoglobin 31.2H, Mean Corpuscular Hemoglobin Concent 34.4, Red Cell Distribution Width 13.4, Platelet Count 239, Mean Platelet Volume 8.2, Neutrophils (%) (Auto) 64.0, Lymphocytes (% ) (Auto) 20.5, Monocytes (%) (Auto) 12.9H, Eosinophils (%) (Auto) 2.1, Basophils (%) (Auto) 0.5, Sodium Level 150H, Potassium Level 3.4L, Chloride Level 108H, Carbon Dioxide Level 28, Anion Gap 14, Blood Urea Nitrogen 85H, Creatinine 3.4H, Estimat Glomerular Filtration Rate 15.4, Glucose Level 150H, Calcium Level 9.6 Current Medications Medications (Trade) Dose Ordered Sig/Joan Route PRN Reason Start Time Stop Time Status Last Admin Dose Admin Acetaminophen (Tylenol) 650 mg Q4H PRN NG Mild Pain/Temp > 100.5 07/04/19 20:30 08/01/19 12:29 07/10/19 12:35 Acetylcysteine (Mucomyst) 100 mg Q4H PRN HHN Shortness of Breath 07/04/19 18:00 08/03/19 17:59 Albumin Human 100 ml @ 100 mls/hr NEEDED PRN IV DIALYSIS 07/04/19 19:00 08/03/19 18:59 07/06/19 01:30 Chlorhexidine Gluconate (Cari-Hex 2%) 1 applic DAILY@2000 TOPIC 07/04/19 20:00 07/26/19 19:59 07/11/19 21:03 Dextrose (Dextrose 50%) 25 ml Q30M PRN IV Hypoglycemia 07/04/19 20:00 07/24/19 19:51 Dextrose (Dextrose 50%) 50 ml Q30M PRN IV Hypoglycemia 07/04/19 20:00 07/24/19 19:51 Diphenhydramine HCl (Benadryl) 25 mg Q6H PRN ORAL Itching/Pruritis 07/04/19 20:00 07/24/19 19:51 Epoetin Dion (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)) 6,000 unit MON-MON-MON SUBQ 07/08/19 21:00 08/07/19 20:59 07/10/19 21:26 Furosemide (Lasix) 40 mg DAILY IV 07/05/19 09:00 07/30/19 19:59 07/12/19 09:39 Gabapentin (Neurontin) 300 mg BID GT 07/05/19 09:00 08/01/19 17:59 07/12/19 09:39 Guaifenesin/ Dextromethorphan (Robitussin DM Syrup) 10 ml Q4H PRN ORAL For Cough 07/10/19 12:37 10/08/19 12:36 07/11/19 10:05 Haloperidol Lactate (Haldol) 5 mg Q6H PRN IM Agitation 07/06/19 01:45 08/20/19 01:44 Ondansetron HCl (Zofran) 4 mg Q4H PRN IVP Nausea & Vomiting 07/04/19 20:00 08/02/19 19:59 Pantoprazole (Protonix) 40 mg DAILY IVP 07/05/19 09:00 07/30/19 08:59 07/12/19 09:39 Abrahan Samaniego MD Jul 12, 2019 10:00
--- NOTE | 2019-07-12 10:14 | Nephrology Progress Note ---
Assessment/Plan Plan #acute renal failure on possible CKD- due to rhabdo- UA with + RBC- concerns for developing ATN #Uremia #complete opacification of the left hemithorax- likely aspiration pneumonia #lactic acidosis #Hypernatremia- improved #AMS #elevated liver enzyme - HD todya - no UF - lasix 80 IV BID - D5w x500cc - Monitor UOP - check labs tomorrow - permacath 07/08 - set up outapatient HD at renal - case management notified - epogen 6k TIW - monitor UOP - PEG 07/04 - pulmonary eval - on room air now - renal US-> No obstructive nephropathy. - monitor liver enzymes and lipase - Gi eval Subjective Subjective UOP 200cc documented increase lasix to 80IV BID D5W x500cc TF changed BP stable monitor UOP s/p one unit of prbc hemoglobin stable CT chest: Extensive airspace consolidation in the left lung involving the left perihilar, upper lobe and left lower lobe. Findings suspicious for pneumonia, especially aspiration given the abrupt onset. Please correlate clinically. Partial atelectasis of the left lower lobe also noted Objective Objective Last 24 Hour Vital Signs Date Time Temp Pulse Resp B/P (MAP) Pulse Ox O2 Delivery O2 Flow Rate FiO2 07/12/19 08:00 98.0 96 20 103/70 (81) 96 07/12/19 07:28 96 20 98 Nasal Cannula 2.0 28 07/12/19 07:28 98 Nasal Cannula 2.0 28 07/12/19 04:00 98.3 100 20 142/72 (95) 100 07/11/19 23:56 98.4 99 21 139/63 (88) 98 07/11/19 21:00 Nasal Cannula 2.0 Nasal Cannula 2.0 07/11/19 20:00 99.2 101 22 123/54 (77) 98 07/11/19 19:40 99 Nasal Cannula 2.0 28 07/11/19 19:40 97 18 99 Nasal Cannula 2.0 28 07/11/19 16:00 98.7 101 20 136/74 (94) 98 07/11/19 12:00 98.9 97 21 134/82 (99) 98 Intake and Output 07/11/19 07/12/19 19:00 07:00 Intake Total 580 ml 540 ml Output Total 200 ml Balance 580 ml 340 ml Free Water 100 ml 100 ml Tube Feeding 480 ml 440 ml Output Urine Total 200 ml # Bowel Movements 1 Laboratory Tests 07/11/19 12:25: White Blood Count 7.2, Red Blood Count 2.97L, Hemoglobin 8.9L, Hematocrit 27.5L , Mean Corpuscular Volume 93, Mean Corpuscular Hemoglobin 29.9, Mean Corpuscular Hemoglobin Concent 32.2, Red Cell Distribution Width 14.2, Platelet Count 241, Mean Platelet Volume 8.4, Neutrophils (%) (Auto) 69.6, Lymphocytes (% ) (Auto) 16.7L, Monocytes (%) (Auto) 11.4H, Eosinophils (%) (Auto) 1.2, Basophils (%) (Auto) 1.0, Sodium Level 144, Potassium Level 3.1L, Chloride Level 105, Carbon Dioxide Level 26, Anion Gap 13, Blood Urea Nitrogen 59H, Creatinine 2.8H, Estimat Glomerular Filtration Rate 19.3, Glucose Level 146H, Calcium Level 8.4L 07/12/19 05:20: White Blood Count 8.0, Red Blood Count 3.05L, Hemoglobin 9.5L, Hematocrit 27.7L , Mean Corpuscular Volume 91, Mean Corpuscular Hemoglobin 31.2H, Mean Corpuscular Hemoglobin Concent 34.4, Red Cell Distribution Width 13.4, Platelet Count 239, Mean Platelet Volume 8.2, Neutrophils (%) (Auto) 64.0, Lymphocytes (% ) (Auto) 20.5, Monocytes (%) (Auto) 12.9H, Eosinophils (%) (Auto) 2.1, Basophils (%) (Auto) 0.5, Sodium Level 150H, Potassium Level 3.4L, Chloride Level 108H, Carbon Dioxide Level 28, Anion Gap 14, Blood Urea Nitrogen 85H, Creatinine 3.4H, Estimat Glomerular Filtration Rate 15.4, Glucose Level 150H, Calcium Level 9.6 Height (Feet): 5 Height (Inches): 3.00 Weight (Pounds): 139 Objective General Appearance: lethargic, confused, on bipap Lines, tubes and drains: peripheral HEENT: normocephalic, atraumatic Neck: non-tender Respiratory/Chest: minimal breath sounds on the left Cardiovascular/Chest: normal peripheral pulses, normal rate, regular rhythm, regularly irregular Abdomen: non tender, soft Rory Oconnor M.D. Jul 12, 2019 10:14
--- NOTE | 2019-07-12 10:33 | Neurology Progress Note ---
Interim History Interim History ROS Limited/Unobtainable: Yes Interim History remains in bed, weak, open eyes Objective Physical Exam Last Vital Signs Date Time Temp Pulse Resp B/P (MAP) Pulse Ox O2 Delivery O2 Flow Rate FiO2 07/12/19 09:00 Nasal Cannula 2.0 Nasal Cannula 2.0 07/12/19 08:00 98.0 96 20 103/70 (81) 96 07/12/19 07:28 28 Laboratory Tests Test 07/11/19 12:25 07/12/19 05:20 White Blood Count 7.2 K/UL (4.8-10.8) 8.0 K/UL (4.8-10.8) Red Blood Count 2.97 M/UL (4.20-5.40) L 3.05 M/UL (4.20-5.40) L Hemoglobin 8.9 G/DL (12.0-16.0) L 9.5 G/DL (12.0-16.0) L Hematocrit 27.5 % (37.0-47.0) L 27.7 % (37.0-47.0) L Mean Corpuscular Volume 93 FL (80-99) 91 FL (80-99) Mean Corpuscular Hemoglobin 29.9 PG (27.0-31.0) 31.2 PG (27.0-31.0) H Mean Corpuscular Hemoglobin Concent 32.2 G/DL (32.0-36.0) 34.4 G/DL (32.0-36.0) Red Cell Distribution Width 14.2 % (11.6-14.8) 13.4 % (11.6-14.8) Platelet Count 241 K/UL (150-450) 239 K/UL (150-450) Mean Platelet Volume 8.4 FL (6.5-10.1) 8.2 FL (6.5-10.1) Neutrophils (%) (Auto) 69.6 % (45.0-75.0) 64.0 % (45.0-75.0) Lymphocytes (%) (Auto) 16.7 % (20.0-45.0) L 20.5 % (20.0-45.0) Monocytes (%) (Auto) 11.4 % (1.0-10.0) H 12.9 % (1.0-10.0) H Eosinophils (%) (Auto) 1.2 % (0.0-3.0) 2.1 % (0.0-3.0) Basophils (%) (Auto) 1.0 % (0.0-2.0) 0.5 % (0.0-2.0) Sodium Level 144 MMOL/L (136-145) 150 MMOL/L (136-145) H Potassium Level 3.1 MMOL/L (3.5-5.1) L 3.4 MMOL/L (3.5-5.1) L Chloride Level 105 MMOL/L (98-107) 108 MMOL/L (98-107) H Carbon Dioxide Level 26 MMOL/L (21-32) 28 MMOL/L (21-32) Anion Gap 13 mmol/L (5-15) 14 mmol/L (5-15) Blood Urea Nitrogen 59 mg/dL (7-18) H 85 mg/dL (7-18) H Creatinine 2.8 MG/DL (0.55-1.30) H 3.4 MG/DL (0.55-1.30) H Estimat Glomerular Filtration Rate 19.3 mL/min (>60) 15.4 mL/min (>60) Glucose Level 146 MG/DL (74-106) H 150 MG/DL (74-106) H Calcium Level 8.4 MG/DL (8.5-10.1) L 9.6 MG/DL (8.5-10.1) Head: normocophalic Neck: no rigidity EENT: benign Neurologic Exam Cranial Nerves III, IV, : PERRLA Objective confused, somnolent, non verbal, not following withdraws all 4 Impression/Recommendations Problems: (1) Metabolic acidosis (2) Decubitus skin ulcer (3) Rhabdomyolysis (4) Fall (5) Altered level of consciousness Assessment & Plan: cc 35 min (6) Fracture of lumbar spine (7) KAREN (acute kidney injury) Status: stable Diagnostic Impression Baseline dementia with acute encephalopathy, coursed wiht delirium, karen, sepsis Monitor neuro exam for improvement PT OT as tolerated ATB per primary Sushil Stevenson MD Jul 12, 2019 10:33
[2019-07-12] MEDS ORDERED: FUROSEMIDE40 MG GT (10:45)
[2019-07-12] MEDS ORDERED: GABAPENTIN300 MG/61 GT (10:45)
--- NOTE | 2019-07-12 10:56 | Discharge Summary ---
Discharge Summary Hospital Course Date of Admission Jun 24, 2019 at 17:57 Date of Discharge 07/12/19 Admitting Diagnosis ALTERED MENTAL STATUS HPI Jeanna Gallagher is a 89 year old female who was admitted on Jun 24, 2019 at 17:57 for Altered Mental Status Consultations Nephrology,GI,ID,Critical Care Procedures PEG placement, Permacath placement Hospital Course 88-year-old female brought in by EMS after unwitnessed fall and altered level of consciousness. She was admitted to the ICU with severe rhabdomyolysis and KAREN, required initiation of HD with improvement in renal parameters. Patient also with acute hypoxic respiratory failure and left lung pneumonia, treated with BiPAP and broad spectrum antibiotics as per ID recs. Patient found to have Strep viridans bacteremia, completed full course of antibiotics per ID recs. Mentation remained poor and PEG was placed by GI. She is tolerating tube feeds and will be discharged [facility] today. Outpatient HD per Dr. Oconnor. #Rhabdomyolosis #KAREN #Acute renal failure - on HD UF #Uremic encephalopathy #Anion gap metabolic acidosis #Lactic acidosis -resolved #Acute anemia #Left lung PNA - likely aspiration #Acute hypoxic respiratory failure s/p BiPAP - improved #Strep Viridans bacteremia #Worsening Leukocytosis #loose stools #Dysphagia #L1 vertebral fracture - likely old #Transaminitis #Acute pancreatitis #Type 2 NSTEMI #Pressure wounds Time spent in preparing discharge was 40 minutes which included coordination with RN, disease case manager rn and consulting MDs Discharge Medications New Medications: Furosemide* (Lasix*) 40 Mg Tablet 40 MG GT DAILY for 3 Days, #3 TAB Gabapentin (Gabapentin) 300 Mg/6 Ml Solution 300 MG GT BID for 30 Days, #30 ML Discontinued Medications: Furosemide* (Lasix*) 20 Mg Tablet 20 MG ORAL TID for diuretic, TAB Gabapentin* (Gabapentin*) 600 Mg Tablet 600 MG ORAL THREE TIMES A DAY for nerve pain, TAB Hydroxyzine HCl (Hydroxyzine HCl) 25 Mg Tablet 25 MG ORAL Q6HR PRN for Itching, TAB Oxycodone Hcl/Acetaminophen 10-325 Mg Tablet (Percocet 10-325 Mg Tablet*) 1 Each Tablet 1 TAB ORAL Q6H PRN for For Pain, #10 TAB 0 Refills [Unable To Obtain] () Discharge Condition Upon Discharge: improving Discharge Vital Signs Last Vital Signs Date Time Temp Pulse Resp B/P (MAP) Pulse Ox O2 Delivery O2 Flow Rate FiO2 07/12/19 09:00 Nasal Cannula 2.0 Nasal Cannula 2.0 07/12/19 08:00 98.0 96 20 103/70 (81) 96 07/12/19 07:28 28 Discharge Disposition Patient was discharged to SNF Discharge Diagnoses: (1) Rhabdomyolysis (2) Metabolic acidosis (3) KAREN (acute kidney injury) Oumar Foy MD Jul 12, 2019 10:56
[2019-07-12 12:00] VITALS: BP 107/68
--- NOTE | 2019-07-12 15:21 | Surgery Progress Note ---
Surgery Progress Note Subjective Procedure Performed Left femoral temporary hemodialysis catheter removal Symptoms: improved, passing flatus Objective Last 24 Hour Vital Signs Date Time Temp Pulse Resp B/P (MAP) Pulse Ox O2 Delivery O2 Flow Rate FiO2 07/12/19 12:00 98.6 99 18 107/68 (81) 100 07/12/19 09:00 Nasal Cannula 2.0 Nasal Cannula 2.0 07/12/19 08:00 98.0 96 20 103/70 (81) 96 07/12/19 07:28 96 20 98 Nasal Cannula 2.0 28 07/12/19 07:28 98 Nasal Cannula 2.0 28 07/12/19 04:00 98.3 100 20 142/72 (95) 100 07/11/19 23:56 98.4 99 21 139/63 (88) 98 07/11/19 21:00 Nasal Cannula 2.0 Nasal Cannula 2.0 07/11/19 20:00 99.2 101 22 123/54 (77) 98 07/11/19 19:40 99 Nasal Cannula 2.0 28 07/11/19 19:40 97 18 99 Nasal Cannula 2.0 28 07/11/19 16:00 98.7 101 20 136/74 (94) 98 I&O Intake and Output 07/11/19 07/12/19 19:00 07:00 Intake Total 580 ml 540 ml Output Total 200 ml Balance 580 ml 340 ml Free Water 100 ml 100 ml Tube Feeding 480 ml 440 ml Output Urine Total 200 ml # Bowel Movements 1 Dressing: dry Wound: clean Cardiovascular: RSR Respiratory: clear Abdomen: soft, non-tender, present bowel sounds Extremities: no tenderness, no cyanosis Laboratory Tests Test 07/12/19 05:20 White Blood Count 8.0 K/UL (4.8-10.8) Red Blood Count 3.05 M/UL (4.20-5.40) L Hemoglobin 9.5 G/DL (12.0-16.0) L Hematocrit 27.7 % (37.0-47.0) L Mean Corpuscular Volume 91 FL (80-99) Mean Corpuscular Hemoglobin 31.2 PG (27.0-31.0) H Mean Corpuscular Hemoglobin Concent 34.4 G/DL (32.0-36.0) Red Cell Distribution Width 13.4 % (11.6-14.8) Platelet Count 239 K/UL (150-450) Mean Platelet Volume 8.2 FL (6.5-10.1) Neutrophils (%) (Auto) 64.0 % (45.0-75.0) Lymphocytes (%) (Auto) 20.5 % (20.0-45.0) Monocytes (%) (Auto) 12.9 % (1.0-10.0) H Eosinophils (%) (Auto) 2.1 % (0.0-3.0) Basophils (%) (Auto) 0.5 % (0.0-2.0) Sodium Level 150 MMOL/L (136-145) H Potassium Level 3.4 MMOL/L (3.5-5.1) L Chloride Level 108 MMOL/L (98-107) H Carbon Dioxide Level 28 MMOL/L (21-32) Anion Gap 14 mmol/L (5-15) Blood Urea Nitrogen 85 mg/dL (7-18) H Creatinine 3.4 MG/DL (0.55-1.30) H Estimat Glomerular Filtration Rate 15.4 mL/min (>60) Glucose Level 150 MG/DL (74-106) H Calcium Level 9.6 MG/DL (8.5-10.1) Plan Problems: (1) Fall Assessment & Plan: 88 year old female s/p fall now with renal insufficiency requiring HD spoke with family. she has known CKD multiple decubitus ulcers from being down malnutrition line placed see documentation trend labs abx HD thank you prognosis guarded family at bedside cxr noted pna worsening l;ine out d/cp larry R cheek pressure injury resolved. Unstageable pressure injury R shoulder now has 90% necrosis,surrounding 10% pink granulation(L()4.1cm x (W)3.3cm. No odor or exudate noted.No erythema or induration periwound. Reabsorbed DTPI R Humerus. Base of wound is dry,brown with pink epithelial at the distal base of wound(L)9.4cm x (W)3.1cm. DTPI R elbow has resolved. Scattered dry brown peeling skin noted. No erythema noted. DTPI sacrum less indurated (L)4.5cm x (W)6cm. Small opening at marco a cleft that is corby and moist(L)1.5cm x (W)0.3cm. No exudate noted. L ischial DTPI reabsorbed(L)6cm x (W)7cm. Base of injury black. No erythema or evidence of further breakdown periwound. Unstageable pressure injury R hip(L)8.9cm x (W)14.2cm. Base of wound has 50% slough ,25% soft necrosis, 25% pink granulation along borders.Edges adherent to base of wound. No odor or exudate noted. DTPI medial/posterior L heel reabsorbed. Base of injury is boggy but blanchable. Unstageable Pressure Injury L Hallux resolving.(L)4.3cm x (W)3.7cm. Base of wound is 60% necrotic,10% slough with surrounding 30% pink granulation. Marginal erythema periwound. Small amt purulent exudate noted. No odor noted. DTPI medial L malleolus reabsorbed. Dry brown patch noted. Reabsorbed blood blisters L 1st,2nd and 3rd metatarsals. Dry brown patches noted dorsally all 3 metatarsals. R heel DTPI resolving. R heel is boggy but blanchable. Unstageable pressure injury lateral R malleolus. Base of wound has scattered slough. Borders are macerated with marginal erythema periwound.(L)0.7cm x (W) 1.3cm. No erythema or fluctuance periwound. DTPI distal/lateral R foot resolving. Base of injury is maroon /fluctuant. No erythema or induration periwound. DTPI lateral R 5th metatarsal resolved. Wound care provided. Wound Tx are effective and continued as ordered. All wound prevention protocols continued as care-planned. Family member at bedside and updated on wound progress. DAILY ESTIMATED NEEDS: Needs based on Wounds, 51.8kg 30-35 kcals/kg 3169-8256 total kcals 1.25-1.5 g protein/kg 65-78 g total protein 25-30ml/kcal mL/kg 4397-7609 total fluid mLs NUTRITION DIAGNOSIS: * Increased kcal and pro needs r/t wound healing and renal failure as evidenced by, s/p fall w/ pressure wounds per MD, refer to WC eval, [facility] needing HD. * Swallowing difficulty R/T dysphagia as evidenced by s/p NGT placement, plan for PEG placement w/ consent and medical clearance, TF held for possible pancreatitis. CURRENT TF:NPO- TF HELD FOR POSSIBLE PANCREATITIS ENTERAL NUTRITION RECOMMENDATIONS: NEPRO @36ml/hr x24 hrs to provide 864ml, 1555 kcal, 70g pro, 628ml free H2O free H2O - As medically appropriate, resume TF - Start @16ml/hr for 8 hrs, advance as tolerated 5ml/hr q4-6 hrs to goal. - Flush per MD/ HOB Over 30 degrees - PT AT HIGH RISK FOR REFEEDING SYNDROME, MONITOR LYTES DAILY, REPLETE NEEDED ADDITIONAL RECOMMENDATIONS: 1) Monitor ability to resume TF NGT feeds held 06/30 for possible pancreatitis. If unable to feed via GI, consider initiating TPN due to proloned NPO, minimal intake status 2) WOUND CARE: W/ active TF order add VASQUEZ in 4oz H2O BID 3) Rec added dextrose when NPO 4) Calibrated bed scale wts daily 5) Monitor lytes closely w/ TF- high risk for refeeding syndrome (2) Altered level of consciousness (3) Fracture of lumbar spine Assessment & Plan: Lungs: There is increased density at the lung bases likely atelectasis. Aorta is moderately calcified. There is a small hiatal hernia.. Liver: Grossly unremarkable. There is artifact limiting evaluation in addition to the fact that no IV or oral contrast was given for this examination. Gallbladder/biliary system: Grossly unremarkable. Spleen: Unremarkable Pancreas: In the area of the pancreatic tail there is a 1.6 cm nodular density which may be cystic. Further evaluation is recommended. Kidneys/Bladder: Vascular calcifications are quite extensive and extend to the hilum of both kidneys. Evaluation for punctate nonobstructive stones is limited in this setting but no definite stones seen. There is no hydronephrosis. Extensive breathing motion limiting evaluation.. Adrenal glands: Unremarkable Bowel: Patient's prior partial bowel resection in the right lower abdomen with anastomotic sutures noted. There is no evidence of a bowel obstruction or inflammatory changes. Appendix is not seen definitely but there are no signs of appendicitis. A few diverticula are noted within the colon. Aorta/IVC: There is a severe calcification of aorta and multiple branches of the aorta. Peritoneum: There is no free fluid. Bones: Bones are diffusely osteopenic. Multiple compression fracture deformities of several vertebra noted including lower thoracic vertebra and L1. There is narrowing of intervertebral discs and accompanying endplate osteophyte formation. Hypertrophied facet joints also demonstrated. Scoliosis of the lower thoracic spine convex to the right and left convex lumbar scoliosis noted. IMPRESSION: No acute findings appreciated. Study limited by the lack of intravenous oral contrast as well as extensive motion artifact. 1.6 cm probable cystic lesion in the pancreatic tail. This requires further evaluation with the contrast CT or MR. Status post previous partial bowel resection. 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 Degenerative changes as described above. (4) Rhabdomyolysis (5) KAREN (acute kidney injury) (6) Decubitus skin ulcer Assessment & Plan: Pt presented on admission with multiple pressure injuries. Pt's niece Sarah stated pt lives alone and found pt laying on her R side on floor in patient's home.Niece believes pt has been laying on floor for approx 5 days. DTPI noted to R cheek. Base of wound is purple with marginal erythema along borders.(L)1.2cm x (W)1.6cm. Unstageable pressure injury R shoulder. Base of wound is 100% necrotic with marginal erythema along borders.(L)4.8cm x (W).3.5cm . DTPI R humerus. Base of wound is fluctuant and maroon in colour with surrounding erythema. (L)10.6cm x (W)3.1cm. DTPI R elbow.Base of wound is indurated with scattered areas that are purple in colour. An area of fluctuance in center. Marginal erythema along borders.(L) 5.3cm x (W)10.4cm. Partially opened Sacral DTPI. Base of wound is purple with surrounding erythema. Partial open wound cleft that is corby and moist.(L)5.3cm x (W) 4.5cm.NO odor or exudate noted. Non-blanching erythema periwound. DTPI L ischium . Base of wound is purple and indurated.(L)6cm x (W)7.5cm. Unstageable pressure injury R hip. Base of wound is 75% necrotic, 25% mixed erythema and slough. Borders are moist,soft with scattered areas that are black. Periwound is dusky and indurated.No odor or exudate noted. DTPI at posterior and medial aspect of L heel. Base of wound is maroon and fluctuant(L)4cm x (W)7cm. Unstageable pressure injury L Hallux. Base of wound is 100% necrotic but soft. Borders are erythematous. Periwound without induration or fluctuance.(L)2.5cm x (W)3cm. DTPI medial L malleolus. Base of wound fluctuant and maroon in colour.(L) 0.3cm x (W)1.2cm. DTPI medial L malleolus. Base of wound fluctuant and maroon in colour with Marginal erythema along borders.(L)0.3cm x (W)1.2cm. Intact blood filled blisters noted to L 1st Metatarsal laterally and head of metatarsal. Intact blood filled blisters noted to heads of L 2nd and L 3rd metatarsals. DTPI noted to posterior and lateral R Heel. Posterior R heel is maroon in colour and fluctuant at base. Laterally ,R heel is black and fluctuant at base.Periwound is boggy and non-blanchable.(L)7cm x (W)8cm. Unstageable pressure injury lateral R malleolus. Base of wound is 100% necrotic and dry.Marginal erythema along borders.Periwound is fluctuant and erythematous( L)1.2cm x (W)1.5cm. DTPI distal/lateral R foot. Base of wound is fluctuant and maroon in colour.(L) 1.3cm x (W)1.7cm. DTPI lateral R 5th metatarsal. Base of wound is maroon and fluctuant with marginal erythema along borders .(L)0.7cm x (W)1.1cm Tx.Plan: Cleanse Wound R shoulder with Saline. Apply Therahoney. Apply Cavilon Skin barrier periwound. Cover with Optifoam drsg every 3 days and prn. Cleanse R hip wound with Saline. Apply Therahoney with 4x4 Gauze. Apply Moisture Barrier Paste periwound.Cover with Optifoam drsg. Daily and prn. Apply Moisture Barrier Paste to Sacral wound and L Ischium. Cover each wound with Optifoam drsg every 3 days and prn. Apply Betadine to R humerus and R elbow . Cover each wound with Optifoam drsg. Change every 3 days and prn. Apply Betadine to wounds R heel, R malleolus and R foot . Cover each wound with Optifoam drsg every 3 days and prn. Apply Betadine to wounds L heel ,L medial malleolus and L foot. Cover each wound with Optifoam drsgs every 3 Days and prn. Air Fluidized Mattress. Reposition at least every 2hours or as tolerated. Place Pillow between knees. Off-load heels with pillow. Anshul Nava Jul 12, 2019 15:21
[2019-07-12 16:00] VITALS: BP 147/61
[2019-07-12 20:00] VITALS: BP 153/63
[2019-07-12] MEDS: Dyna-Hex 2% Top Sol 2oz TOPIC SCH (21:09)
[2019-07-12] MEDS: Epoetin Alfa-EPBX(ESRD on dialysis)3000 units/ml vial SUBQ SCH (21:09)
--- NOTE | 2019-07-12 22:15 | Progress Note ---
DATE: 07/12/2019 SUBJECTIVE: The patient is in bed. Has episodes of agitation and disoriented. The patient is in no acute distress during my evaluation. MENTAL STATUS EXAMINATION: The patient is awake, disoriented. Mood is neutral. Affect is flat. Thought process, there is a paucity of thought content. Thought content, no suicidal or homicidal ideation. ASSESSMENT: Stable. PLAN: 1. We will continue current medications. 2. Provide the patient with reality orientation. Jaime Jackson M.D. DR: KALPESH JOB#: [id number] CC:
== END 2019-07-12 22:00 | DRG 871 ==
LOC: EDBD 16:34 → EMR 16:45 → 2W 17:57 → EDBEDREQ 19:30 → 4E 07-04 18:53
PROC: 06HN33Z Insertion of Infusion Device into Left Femoral Vein, Percutaneous Approach (ICD-10-PCS; principal; 2019-06-25)
PROC: 5A1D70Z Performance of Urinary Filtration, Intermittent, Less than 6 Hours Per Day (ICD-10-PCS; principal; 2019-06-25)
PROC: 0DH63UZ Insertion of Feeding Device into Stomach, Percutaneous Approach (ICD-10-PCS; 2019-07-05 11:29)
PROC: B513ZZA Fluoroscopy of Right Jugular Veins, Guidance (ICD-10-PCS; 2019-07-09)
PROC: 05HM33Z Insertion of Infusion Device into Right Internal Jugular Vein, Percutaneous Approach (ICD-10-PCS; 2019-07-09)
PROC: 0JH63XZ Insertion of Tunneled Vascular Access Device into Chest Subcutaneous Tissue and Fascia, Percutaneous Approach (ICD-10-PCS; 2019-07-09)
PROC: 06PYX3Z Removal of Infusion Device from Lower Vein, External Approach (ICD-10-PCS; 2019-07-10)
DX: A41.9 Sepsis, unspecified organism (principal); J69.0 Pneumonitis due to inhalation of food and vomit; J96.01 Acute respiratory failure with hypoxia; G92 Toxic encephalopathy; I21.A1 Myocardial infarction type 2; K85.90 Acute pancreatitis without necrosis or infection, unspecified; N17.9 Acute kidney failure, unspecified; E87.0 Hyperosmolality and hypernatremia; M62.82 Rhabdomyolysis; E87.2 Acidosis; N39.0 Urinary tract infection, site not specified; I25.10 Atherosclerotic heart disease of native coronary artery without angina pectoris; R31.0 Gross hematuria; E86.0 Dehydration; N18.9 Chronic kidney disease, unspecified; R13.10 Dysphagia, unspecified; D64.9 Anemia, unspecified; D69.6 Thrombocytopenia, unspecified; F41.9 Anxiety disorder, unspecified; R33.9 Retention of urine, unspecified; N31.9 Neuromuscular dysfunction of bladder, unspecified; L89.526 Pressure-induced deep tissue damage of left ankle; L89.616 Pressure-induced deep tissue damage of right heel; L89.016 Pressure-induced deep tissue damage of right elbow; L89.156 Pressure-induced deep tissue damage of sacral region; L89.896 Pressure-induced deep tissue damage of other site; L89.816 Pressure-induced deep tissue damage of head
CPT/HCPCS: 36415; 36600; 70450; 71045; 71250; 72132; 74018; 74176; 74177; 76000; 76700; 76770; 80048; 80053; 80061; 80076; 80202; 81003; 82040; 82150; 82248; 82270; 82378; 82550; 82553; 82728; 82803; 82977; 83540; 83550; 83605; 83690; 83735; 83880; 84100; 84484; 85007; 85025; 85610; 85651; 85730; 86140; 86703; 86705; 86706; 86709; 86803; 86850; 86900; 86901; 86920; 87040; 87081; 87086; 87181; 87324; 87340; 93005; 93306; 94003; 94150; 94660; 94664; 96361; 96365; 99285; J7030; J8499

== ENCOUNTER 2019-07-14 11:57 | Inpatient (IN) | payer MEDICARE, BC ==
[~2019-07-14] VITALS: Ht 160 cm; Wt 59.9 kg
[~2019-07-14 11:57] MED LIST changes: +ATARAX25 MG ORAL; +FUROSEMIDE20 M1 ORAL; +FUROSEMIDE40 MG GT; +GABAPENTIN300 MG/61 GT; +GABAPENTIN600 MG ORAL; +PERCOCET 10-321 EACH ORAL
--- NOTE | 2019-07-14 11:59 | NUR ---
ED Nurse Note: [facility] and elevated body temp. Per EMS pt was seen and d/c here yesterday; pt started having fever today at 100.4F. 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 Pt is AOx2 responsive when being called; noted generalized weakness; skin noted with multiple pressure injuries captain assistant located on RT upper thigh; sacrum and on bilateral lower extremities. Pt's on FULL CODE. Placed on bed; hooked to cardiac rehab nurse, Bilateral side rails up. Safety assured; isolation prec. observed. Will continue to monitor.
--- NOTE | 2019-07-14 12:00 | NUR ---
ED Nurse Note: IV established by Charge nurse; blood specimen sent to labs.
--- NOTE | 2019-07-14 12:03 | NUR ---
ED Nurse Note: spoke with RN from [facility] who gave verbal orders from who is covering for Dr. nava, Dr. Alis Rojas. ERMD aware of orders
--- NOTE | 2019-07-14 12:05 | NUR ---
ED Nurse Note: Latest rectal temp: 99.8F. Charge nurse and ERMD aware.
[2019-07-14 12:30] LABS: ANION GAP 13 mmol/L (5-15); BASOPHILS % (AUTO) 0.8 % (0.0-2.0); BLOOD UREA NITROGEN 75 mg/dL (7-18); CARBON DIOXIDE 26 MMOL/L (21-32); CHLORIDE 106 MMOL/L (98-107); CREATININE 3.8 MG/DL (0.55-1.30); EOSINOPHILS % (AUTO) 1.4 % (0.0-3.0); HEMATOCRIT 28.5 % (37.0-47.0); HEMOGLOBIN 9.6 G/DL (12.0-16.0); LYMPHOCYTES % (AUTO) 19.9 % (20.0-45.0); MEAN CORPUSCULAR VOLUME 91 FL (80-99); MONOCYTES % (AUTO) 11.8 % (1.0-10.0); NEUTROPHILS % (AUTO) 66.1 % (45.0-75.0); PLATELET COUNT 248 K/UL (150-450); RED BLOOD COUNT 3.13 M/UL (4.20-5.40); RED CELL DISTRIBUTION WIDTH 13.4 % (11.6-14.8); SODIUM 145 MMOL/L (136-145); WHITE BLOOD COUNT 9.5 K/UL (4.8-10.8)
--- NOTE | 2019-07-14 12:33 | NUR ---
ED Nurse Note: X-ray at bedside.
[2019-07-14 12:35] VITALS: BP 160/70
[2019-07-14 12:40] LABS: ALANINE AMINOTRANSFERASE 46 U/L (12-78); ALBUMIN 3.1 G/DL (3.4-5.0); ALBUMIN/GLOBULIN RATIO 0.9 (1.0-2.7); ALKALINE PHOSPHATASE 107 U/L (46-116); ASPARTATE AMINO TRANSFERASE 47 U/L (15-37); BILIRUBIN,TOTAL 0.4 MG/DL (0.2-1.0)
--- NOTE | 2019-07-14 13:02 | Emergency Room Report ---
History of Present Illness General Chief Complaint: Fever Source: Medical Record (Christopher Teresa MD) Present Illness HPI 89-year-old female presents the ED for evaluation. Brought in by EMS from [facility] facility. Had fever today. Was just discharged from here yesterday back to [facility] facility. Concern for coronavirus per nursing staff. No reported cough. No respiratory distress. Patient unable to provide any additional history at this time. Also had recent permacath placed in her right chest. No other aggravating relieving factors. Denies any other associated symptoms COVID-19 risk:Contact w/high r: No COVID-19 risk:Travel to affect: No Has patient experienced rose: No (Christopher Teresa MD) Allergies: Coded Allergies: No Known Allergies (Unverified , 06/24/19) Patient History Past Medical History: HTN, renal disease, dialysis Past Surgical History: none Pertinent Family History: none Social History: Denies: smoking, alcohol use, drug use Now: No Immunizations: UTD Reviewed Nursing Documentation: PMH: Agreed; PSxH: Agreed (Christopher Teresa MD) Nursing Documentation-PMH Hx Cardiac Problems: Yes Hx Cancer: Yes - jaw cancer Hx Gastrointestinal Problems: No Hx Dialysis: No - brooke 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 (Christopher Teresa MD) Review of Systems All Other Systems: limited (Christopher Teresa MD) Physical Exam Vital Signs Date Time Temp Pulse Resp B/P (MAP) Pulse Ox O2 Delivery O2 Flow Rate FiO2 07/14/19 11:53 99.9 12 14 160/70 (100) 94 Nasal Cannula 4.0 Sp02 EP Interpretation: reviewed, normal General Appearance: no apparent distress, lethargic Head: normocephalic Eyes: bilateral eye normal inspection, bilateral eye PERRL ENT: normal ENT inspection Neck: normal inspection Respiratory: chest non-tender, normal breath sounds, crackles, speaking full sentences, other - permacath R chest Cardiovascular #1: regular rate, rhythm, no edema Gastrointestinal: normal bowel sounds, non tender, soft, non-distended, no guarding, no rebound Rectal: deferred Genitourinary: no CVA tenderness Musculoskeletal: back normal Neurologic: other - lethargic Psychiatric: other - lethargic Skin: other - see nursing skin notes Lymphatic: normal inspection (Christopher Teresa MD) Medical Decision Making Diagnostic Impression: Primary Impression: ESRD (end stage renal disease) on dialysis Additional Impression: Fever Qualified Codes: R50.9 - Fever, unspecified ER Course Hospital hospital Course 89-year-old F presenting to ED with fever from SNF. concern for coronavirus Differential diagnoses include: Pneumonia, CHF exacerbation, pneumothorax, fluid overload Clinical course Patient placed on stretcher. 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 patient placed in isolation. i wore full PPE. After initial history and physical, I ordered labs, IV fluids, EKG, chest x-ray, blood cultures, UA. Labs - no leukocytosis, hemoglobin/hematocrit stable, BUN/Cr elevated, trop indeterminate, lactate okay CXR - intersttial edema given abx. concern for coronavirus. COVID testing sent Case discussed with Dr. Stewart and he agreed to the patient to his service for further care and support I feel this is a highly complex case requiring extensive working including EKG/ Rhythm strip, Xray/CT/US, Blood/urine lab work, repeat exams while in ED, and administration of strong opiates/narcotics for pain control, admission to hospital or close patient follow up. Diagnosis - ESRD on dialysis, fever Patient admitted to telemetry in serious condition Labs Test 07/14/19 12:00 07/14/19 12:40 07/14/19 16:00 07/14/19 18:50 White Blood Count 9.5 K/UL (4.8-10.8) Red Blood Count 3.13 M/UL (4.20-5.40) Hemoglobin 9.6 G/DL (12.0-16.0) Hematocrit 28.5 % (37.0-47.0) Mean Corpuscular Volume 91 FL (80-99) Mean Corpuscular Hemoglobin 30.6 PG (27.0-31.0) Mean Corpuscular Hemoglobin Concent 33.6 G/DL (32.0-36.0) Red Cell Distribution Width 13.4 % (11.6-14.8) Platelet Count 248 K/UL (150-450) Mean Platelet Volume 7.8 FL (6.5-10.1) Neutrophils (%) (Auto) 66.1 % (45.0-75.0) Lymphocytes (%) (Auto) 19.9 % (20.0-45.0) Monocytes (%) (Auto) 11.8 % (1.0-10.0) Eosinophils (%) (Auto) 1.4 % (0.0-3.0) Basophils (%) (Auto) 0.8 % (0.0-2.0) Sodium Level 145 MMOL/L (136-145) Potassium Level 4.0 MMOL/L (3.5-5.1) Chloride Level 106 MMOL/L (98-107) Carbon Dioxide Level 26 MMOL/L (21-32) Anion Gap 13 mmol/L (5-15) Blood Urea Nitrogen 75 mg/dL (7-18) Creatinine 3.8 MG/DL (0.55-1.30) Estimat Glomerular Filtration Rate 13.6 mL/min (>60) Glucose Level 145 MG/DL (74-106) Lactic Acid Level 1.50 mmol/L (0.4-2.0) Calcium Level 10.0 MG/DL (8.5-10.1) Total Bilirubin 0.4 MG/DL (0.2-1.0) Aspartate Amino Transf (AST/SGOT) 47 U/L (15-37) Alanine Aminotransferase (ALT/SGPT) 46 U/L (12-78) Alkaline Phosphatase 107 U/L (46-116) Troponin I 0.347 ng/mL (0.000-0.056) 0.298 ng/mL (0.000-0.056) 0.296 ng/mL (0.000-0.056) Pro-B-Type Natriuretic Peptide 8006 pg/mL (0-125) Total Protein 6.4 G/DL (6.4-8.2) Albumin 3.1 G/DL (3.4-5.0) Globulin 3.3 g/dL Albumin/Globulin Ratio 0.9 (1.0-2.7) Urine Color Yellow Urine Appearance Clear Urine pH 5 (4.5-8.0) Urine Specific [place] 1.015 (1.005-1.035) Urine Protein 3+ (NEGATIVE) Urine Glucose (UA) Negative (NEGATIVE) Urine Ketones Negative (NEGATIVE) Urine Blood 4+ (NEGATIVE) Urine Nitrite Positive (NEGATIVE) Urine Bilirubin Negative (NEGATIVE) Urine Urobilinogen Normal MG/DL (0.0-1.0) Urine Leukocyte Esterase 2+ (NEGATIVE) Urine RBC 2-4 /HPF (0 - 2) Urine WBC 5-10 /HPF (0 - 2) Urine Squamous Epithelial Cells Few /LPF (NONE/OCC) Urine Bacteria Few /HPF (NONE) Test 07/14/19 21:50 07/15/19 05:00 07/15/19 12:15 07/16/19 04:30 Troponin I 0.254 ng/mL (0.000-0.056) 0.223 ng/mL (0.000-0.056) White Blood Count 10.5 K/UL (4.8-10.8) 23.5 K/UL (4.8-10.8) Red Blood Count 3.01 M/UL (4.20-5.40) 2.66 M/UL (4.20-5.40) Hemoglobin 9.3 G/DL (12.0-16.0) 8.4 G/DL (12.0-16.0) Hematocrit 27.8 % (37.0-47.0) 24.5 % (37.0-47.0) Mean Corpuscular Volume 92 FL (80-99) 92 FL (80-99) Mean Corpuscular Hemoglobin 30.8 PG (27.0-31.0) 31.6 PG (27.0-31.0) Mean Corpuscular Hemoglobin Concent 33.5 G/DL (32.0-36.0) 34.4 G/DL (32.0-36.0) Red Cell Distribution Width 13.4 % (11.6-14.8) 14.0 % (11.6-14.8) Platelet Count 260 K/UL (150-450) 240 K/UL (150-450) Mean Platelet Volume 7.6 FL (6.5-10.1) 8.4 FL (6.5-10.1) Neutrophils (%) (Auto) 71.9 % (45.0-75.0) % (45.0-75.0) Lymphocytes (%) (Auto) 14.5 % (20.0-45.0) % (20.0-45.0) Monocytes (%) (Auto) 9.5 % (1.0-10.0) % (1.0-10.0) Eosinophils (%) (Auto) 3.3 % (0.0-3.0) % (0.0-3.0) Basophils (%) (Auto) 0.8 % (0.0-2.0) % (0.0-2.0) Sodium Level 144 MMOL/L (136-145) 141 MMOL/L (136-145) Potassium Level 4.1 MMOL/L (3.5-5.1) 3.6 MMOL/L (3.5-5.1) Chloride Level 104 MMOL/L (98-107) 103 MMOL/L (98-107) Carbon Dioxide Level 27 MMOL/L (21-32) 27 MMOL/L (21-32) Anion Gap 13 mmol/L (5-15) 11 mmol/L (5-15) Blood Urea Nitrogen 91 mg/dL (7-18) 44 mg/dL (7-18) Creatinine 4.1 MG/DL (0.55-1.30) 2.8 MG/DL (0.55-1.30) Estimat Glomerular Filtration Rate 12.4 mL/min (>60) 19.3 mL/min (>60) Glucose Level 151 MG/DL (74-106) 141 MG/DL (74-106) Calcium Level 9.8 MG/DL (8.5-10.1) 9.8 MG/DL (8.5-10.1) Pro-B-Type Natriuretic Peptide 6363 pg/mL (0-125) Random Vancomycin Level 18.5 ug/mL Differential Total Cells Counted 100 Neutrophils % (Manual) 97 % (45-75) Lymphocytes % (Manual) 2 % (20-45) Monocytes % (Manual) 1 % (1-10) Eosinophils % (Manual) 0 % (0-3) Basophils % (Manual) 0 % (0-2) Band Neutrophils 0 % (0-8) Platelet Estimate Adequate Platelet Morphology Normal Hypochromasia 2+ Anisocytosis 1+ Spherocytes 1+ Phosphorus Level 2.7 MG/DL (2.5-4.9) Magnesium Level 2.1 MG/DL (1.8-2.4) Iron Level 10 ug/dL (50-175) Total Iron Binding Capacity 99 ug/dL (250-450) Percent Iron Saturation 10 % (15-50) Unsaturated Iron Binding 89 ug/dL (112-346) Ferritin 1473 NG/ML (8-388) Total Bilirubin 0.6 MG/DL (0.2-1.0) Aspartate Amino Transf (AST/SGOT) 88 U/L (15-37) Alanine Aminotransferase (ALT/SGPT) 63 U/L (12-78) Alkaline Phosphatase 219 U/L (46-116) Total Protein 6.6 G/DL (6.4-8.2) Albumin 3.7 G/DL (3.4-5.0) Globulin 2.9 g/dL Albumin/Globulin Ratio 1.3 (1.0-2.7) (Christopher Teresa MD) ER Course Troponin trending down. Aspirin ordered. (Melchor Child MD) EKG Diagnostic Results Rate: normal Rhythm: NSR ST Segments: no acute changes ASA given to the pt in ED: No (Christopher Teresa MD) Rhythm Strip Diag. Results EP Interpretation: yes Rhythm: NSR, no PVC's, no ectopy (Christopher Teresa MD) Chest X-Ray Diagnostic Results Chest X-Ray Diagnostic Results : Chest X-Ray Ordered: Yes # of Views/Limited/Complete: 1 View Indication: Other EP Interpretation: Yes Interpretation: no consolidation, no effusion, no pneumothorax, no acute cardiopulmonary disease, other - permacath R chest Impression: No acute disease Electronically Signed by: Electronically signed by Christopher Teresa MD (Christopher Teresa MD) Last Vital Signs Date Time Temp Pulse Resp B/P (MAP) Pulse Ox O2 Delivery O2 Flow Rate FiO2 07/14/19 12:35 99.8 87 14 160/70 94 Nasal Cannula 4.0 Status: improved (Christopher Teresa MD) Disposition: ADMITTED INPATIENT Condition: Serious Referrals: Meera Frederick MD (PCP) Christopher Teresa MD Jul 14, 2019 13:02 Melchor Child MD Jul 14, 2019 15:02 Rory Oconnor M.D. Jul 15, 2019 10:30
[2019-07-14 13:11] LABS: APPEARANCE,URINE CLEAR; BILIRUBIN, URINE NEGATIVE (NEGATIVE); GLUCOSE, URINE (UA) NEGATIVE (NEGATIVE); KETONES,URINE NEGATIVE (NEGATIVE); LEUKOCYTE ESTERASE ,URINE 2+ (NEGATIVE); NITRITE,URINE POSITIVE (NEGATIVE); PH,URINE 5 (4.5-8.0); PROTEIN,URINE 3+ (NEGATIVE); UROBILINOGEN,URINE NORMAL MG/DL (0.0-1.0)
[2019-07-14] MEDS ORDERED: Piperacillin/Tazobactam 3.375 GM in NS 110 ML IVPB ONE (13:15)
[2019-07-14] MEDS ORDERED: Azithromycin 500 MG in NS 275 ML IV ONE (13:15)
[2019-07-14 13:21] LABS: COLOR,URINE YELLOW
--- NOTE | 2019-07-14 13:30 | NUR ---
ED Nurse Note: Hand-off given to Julia PUVRIS for continuity of care.
[2019-07-14 14:29] VITALS: BP 128/60
--- NOTE | 2019-07-14 14:34 | Diagnostic Imaging Report ---
Indication: Dyspnea Comparison: 07/06/2019 A single view chest radiograph was obtained. Findings: Pulmonary vascularity is mildly increased but the not as severe as on the prior occasion. Heart is mildly enlarged. There is a right jugular permacath present. IMPRESSION: Mild interstitial edema
--- NOTE | 2019-07-14 15:16 | History and Physical ---
History of Present Illness General Reason for Hospitalization: Fever Present Illness HPI 89-year-old female with PMH of acute renal failure, s/p right chest wall permacath on HD, dysphasia s/p PEG, multiple pressure wounds, HTN, h/o AMS was recently discharged from this facility for KAREN/rhabdo, unwitnessed fall, was sent to intermediate and returned here due to fevers. Patient was admitted for persistent fevers and for sepsis/Covidien 19 rule out. Patient AAO x1, history very limited due to patient mental status which appears to be at baseline. Patient currently denies any RICHTER, CP, S OB, F/C, N/V, abdominal pain or dysuria at this time. ED course: BMP 8000, troponin 0 0.347, patient given for septic work-up and will be admitted for further treatment. PMH: ESRD on HD, dysphagia s/p PEG, multiple pressure wounds, HTN, pancreatic cyst FH: Reviewed and not pertinent SH: No EtOH/tobacco history All: NKDA Allergies: Coded Allergies: No Known Allergies (Unverified , 06/24/19) Medication History Scheduled Furosemide* (Lasix*), 40 MG GT DAILY Gabapentin (Gabapentin), 300 MG GT BID Discontinued Medications Furosemide* (Lasix*), 20 MG ORAL TID, (Reported) Discontinued Reason: MD discontinued med Gabapentin* (Gabapentin*), 600 MG ORAL THREE TIMES A DAY, (Reported) Discontinued Reason: MD discontinued med Hydroxyzine HCl (Hydroxyzine HCl), 25 MG ORAL Q6HR PRN for Itching, (Reported) Discontinued Reason: MD discontinued med Oxycodone Hcl/Acetaminophen 10-325 Mg Tablet (Percocet 10-325 Mg Tablet*), 1 TAB ORAL Q6H PRN for For Pain, (Reported) Discontinued Reason: MD discontinued med [Unable To Obtain], (Reported) Discontinued Reason: MD discontinued med Patient History Healthcare decision maker Resuscitation status Advanced Directive on File Review of Systems Constitutional: Denies: no symptoms, see HPI, chills, sweats, fever, malaise, weakness, other ENT: Denies: no symptoms, see HPI, ear pain, ear discharge, nose pain, nose congestion, throat pain, throat swelling, mouth pain, hearing loss, nasal discharge, other Respiratory: Denies: no symptoms, see HPI, cough, orthopnea, shortness of breath, stridor, wheezing, LOPEZ, sputum, other Cardiovascular: Denies: no symptoms, see HPI, chest pain, edema, palpitations, syncope, PND, other Gastrointestinal: Denies: no symptoms, see HPI, abdominal pain, constipation, diarrhea, nausea, vomiting, melena, hematemesis, other Genitourinary: Denies: no symptoms, see HPI, discharge, dysuria, frequency, hematuria, pain, retention, incontinence, urgency, vag bleed/dc, other Musculoskeletal: Denies: no symptoms, see HPI, back pain, gout, joint pain, joint swelling, muscle pain, muscle stiffness, other Endocrine: Denies: no symptoms, see HPI, excessive sweating, flushing, intolerance to temperature, increased thirst, increased urine, unexplained weight loss, other Physical Exam Physical Exam Narrative General: NAD, A&O x 1, self only HEENT: NCAT, EOMi, PEERLA, nares patent and no symmetrical, no tonsillar exudates, mucous membranes moist CV: RRR, no murmurs, rubs, or gallops Pulm: CTAB, No wheezes, rhonchi, or rales, no accessory muscle usage or conversational dyspnea GI: Soft, nontender, nondistended, bowel sounds present, PEG tube in place, C/D/ I Neuro: CN 2-12 grossly intact bilaterally, no focal signs. Ext: No lower extremity edema bilaterally, LE contracted bilaterally Skin: Multiple pressure ulcers noted on hip/heels Lymph: No lymphadenopathy in upper extremity and lower extremity Last 24 Hour Vital Signs Date Time Temp Pulse Resp B/P (MAP) Pulse Ox O2 Delivery O2 Flow Rate FiO2 07/14/19 14:29 75 18 128/60 97 Nasal Cannula 4.0 07/14/19 12:35 99.8 87 14 160/70 94 Nasal Cannula 4.0 07/14/19 12:35 12 14 Nasal Cannula 4.0 07/14/19 11:53 99.9 12 14 160/70 (100) 94 Nasal Cannula 4.0 Laboratory Tests Test 07/14/19 12:00 07/14/19 12:40 White Blood Count 9.5 K/UL (4.8-10.8) Red Blood Count 3.13 M/UL (4.20-5.40) L Hemoglobin 9.6 G/DL (12.0-16.0) L Hematocrit 28.5 % (37.0-47.0) L Mean Corpuscular Volume 91 FL (80-99) Mean Corpuscular Hemoglobin 30.6 PG (27.0-31.0) Mean Corpuscular Hemoglobin Concent 33.6 G/DL (32.0-36.0) Red Cell Distribution Width 13.4 % (11.6-14.8) Platelet Count 248 K/UL (150-450) Mean Platelet Volume 7.8 FL (6.5-10.1) Neutrophils (%) (Auto) 66.1 % (45.0-75.0) Lymphocytes (%) (Auto) 19.9 % (20.0-45.0) L Monocytes (%) (Auto) 11.8 % (1.0-10.0) H Eosinophils (%) (Auto) 1.4 % (0.0-3.0) Basophils (%) (Auto) 0.8 % (0.0-2.0) Sodium Level 145 MMOL/L (136-145) Potassium Level 4.0 MMOL/L (3.5-5.1) Chloride Level 106 MMOL/L (98-107) Carbon Dioxide Level 26 MMOL/L (21-32) Anion Gap 13 mmol/L (5-15) Blood Urea Nitrogen 75 mg/dL (7-18) H Creatinine 3.8 MG/DL (0.55-1.30) H Estimat Glomerular Filtration Rate 13.6 mL/min (>60) Glucose Level 145 MG/DL (74-106) H Lactic Acid Level 1.50 mmol/L (0.4-2.0) Calcium Level 10.0 MG/DL (8.5-10.1) Total Bilirubin 0.4 MG/DL (0.2-1.0) Aspartate Amino Transf (AST/SGOT) 47 U/L (15-37) H Alanine Aminotransferase (ALT/SGPT) 46 U/L (12-78) Alkaline Phosphatase 107 U/L (46-116) Troponin I 0.347 ng/mL (0.000-0.056) Pro-B-Type Natriuretic Peptide 8006 pg/mL (0-125) H Total Protein 6.4 G/DL (6.4-8.2) Albumin 3.1 G/DL (3.4-5.0) L Globulin 3.3 g/dL Albumin/Globulin Ratio 0.9 (1.0-2.7) L Urine Color Yellow Urine Appearance Clear Urine pH 5 (4.5-8.0) Urine Specific [place] 1.015 (1.005-1.035) Urine Protein 3+ (NEGATIVE) H Urine Glucose (UA) Negative (NEGATIVE) Urine Ketones Negative (NEGATIVE) Urine Blood 4+ (NEGATIVE) H Urine Nitrite Positive (NEGATIVE) H Urine Bilirubin Negative (NEGATIVE) Urine Urobilinogen Normal MG/DL (0.0-1.0) Urine Leukocyte Esterase 2+ (NEGATIVE) H Urine RBC 2-4 /HPF (0 - 2) H Urine WBC 5-10 /HPF (0 - 2) H Urine Squamous Epithelial Cells Few /LPF (NONE/OCC) Urine Bacteria Few /HPF (NONE) Microbiology Date/Time Source Procedure Growth Status 07/14/19 12:30 Nasal Nares - Final Complete 07/14/19 12:30 Nasal Nares - Final Complete 07/14/19 12:00 Rectum Received Height (Feet): 5 Height (Inches): 4.00 Weight (Pounds): 120 Medications Current Medications Medications (Trade) Dose Ordered Sig/Joan Route PRN Reason Start Time Stop Time Status Last Admin Dose Admin Acetaminophen (Tylenol) 650 mg Q4H PRN ORAL Mild Pain (Pain Scale 1-3) 07/14/19 14:45 08/13/19 14:44 Azithromycin 500 mg/Sodium Chloride 275 ml @ 275 mls/hr DAILY IV 07/15/19 09:00 07/22/19 08:59 UNV Bisacodyl (Dulcolax) 10 mg HSPRN PRN RECTAL Constipation 07/14/19 21:00 10/12/19 20:59 Dextrose (Dextrose 50%) 25 ml Q30M PRN IV Hypoglycemia 07/14/19 14:45 10/12/19 14:44 Dextrose (Dextrose 50%) 50 ml Q30M PRN IV Hypoglycemia 07/14/19 14:45 10/12/19 14:44 Docusate Sodium (Colace) 100 mg EVERY 12 HOURS ORAL 07/14/19 21:00 08/13/19 20:59 Heparin Sodium (Porcine) (Heparin 5000 units/ml) 5,000 units EVERY 12 HOURS SUBQ 07/14/19 21:00 08/28/19 20:59 Magnesium Hydroxide (Mom) 30 ml HSPRN PRN ORAL Constipation 07/14/19 21:00 08/13/19 20:59 Morphine Sulfate (Morphine Sulfate) 2 mg Q4HR PRN IVP Severe Pain (Pain Scale 7-10) 07/14/19 15:00 07/21/19 14:59 UNV Ondansetron HCl (Zofran) 4 mg Q6H PRN IVP Nausea & Vomiting 07/14/19 14:45 08/13/19 14:44 Piperacillin Sod/ Tazobactam Sod 2.25 gm/Sodium Chloride 110 ml @ 220 mls/hr DAILY IVPB 07/15/19 09:00 07/22/19 08:59 UNV Vancomycin HCl (Vanco rx to dose) 1 ea DAILY PRN MISC Per rx protocol 07/14/19 14:45 08/13/19 14:44 UNV Assessment/Plan Assessment/Plan: 89-year-old female with PMH of acute renal failure, s/p right chest wall permacath on HD, dysphasia s/p PEG, multiple pressure wounds, HTN, h/o AMS was recently discharged from this facility for KAREN/rhabdo, unwitnessed fall, was sent to intermediate and returned here due to fevers. Patient was admitted for persistent fevers and for sepsis/COVID 19 rule out. ED course: BMP 8000, troponin 0 0.347, patient given for septic work-up and will be admitted for further treatment. 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 Azithro, Zosyn and Vanco #ESRD on HD -s/p permcath -Nephro consulted for HD #HTN #elevated troponin #BNP elevated -cont. to trend trops -ASA, statin -increase home lasix from 40 mg PO to 80 mg IV -Cardio consulted, reccs appreciated -hydralazine PRN for SBP >160 #Hematuria #Possible Urinary retention. #Possible neurogenic bladder. -UA w/ evidence of RBCs, 4+ blood -Urology consulted, recs appreciated #Dysphagia -s/p PEG -cont tube feeds -Dietary consulted #Pressure wounds -Wound care consulted, recs appreciated DVT ppx - heparin Time spent on encounter: 70 mins, >50% on counseling, coordination of care. Additional 40 minutes spent with chart review. Time of note doesn't reflect time of encounter. Lisa Brewster M.D. Jul 14, 2019 15:16
[2019-07-14 15:35] VITALS: BP 135/70
--- NOTE | 2019-07-14 16:00 | NUR ---
ED Nurse Note: Sent second troponin to lab.
--- NOTE | 2019-07-14 16:10 | NUR ---
ED Nurse Note: Report given to Stefanie PURVIS of SDU.
--- NOTE | 2019-07-14 16:10 | NUR ---
NURSE NOTES: Received telephone report from Julia PURVIS.
[2019-07-14 16:30] VITALS: BP 110/49
--- NOTE | 2019-07-14 16:30 | NUR ---
ED Nurse Note: Transferred pt to [facility] and covered whole body with yellow plastic sheet and placed mask on pt for protection. All paper works placed in belongings bag. Endorsed to Stefanie PURVIS of [facility]U.
--- NOTE | 2019-07-14 17:15 | NUR ---
NURSE NOTES: Pt. observed with multiple wound. Body assessment done. Right upper perm-a-cath in placed. IV at right upper arm #20g. in placed. On O2 at 2LPM via NC. Noted pt. coughing (non-productive). GT in placed patent/intact. HOB elevated at all times. V/S WNL. Bed in low position, locked. Call light within reach. Will cont. to monitor.
[2019-07-14] MEDS ORDERED: Vancomycin 1gm in D5W 275ml IVPB SCH (18:00)
--- NOTE | 2019-07-14 18:56 | Consultation ---
History of Present Illness General Date patient seen: Jul 14, 2019 Time patient seen: 18:43 Chief Complaint: Fever Present Illness Allergies: Coded Allergies: No Known Allergies (Unverified , 06/24/19) Medication History Scheduled Furosemide* (Lasix*), 40 MG GT DAILY Gabapentin (Gabapentin), 300 MG GT BID Discontinued Medications Furosemide* (Lasix*), 20 MG ORAL TID, (Reported) Discontinued Reason: MD discontinued med Gabapentin* (Gabapentin*), 600 MG ORAL THREE TIMES A DAY, (Reported) Discontinued Reason: MD discontinued med Hydroxyzine HCl (Hydroxyzine HCl), 25 MG ORAL Q6HR PRN for Itching, (Reported) Discontinued Reason: MD discontinued med Oxycodone Hcl/Acetaminophen 10-325 Mg Tablet (Percocet 10-325 Mg Tablet*), 1 TAB ORAL Q6H PRN for For Pain, (Reported) Discontinued Reason: MD discontinued med [Unable To Obtain], (Reported) Discontinued Reason: MD discontinued med Medications Narrative 89-year-old female with PMH of acute renal failure, s/p right chest wall permacath on HD, dysphasia s/p PEG, multiple pressure wounds, HTN, h/o AMS was recently discharged from this facility for KAREN/rhabdo, unwitnessed fall, was sent to skilled nursing and returned here due to fevers. Cardiology consulted for elevated BNP and troponin. Patient History Healthcare decision maker Resuscitation status Full Code Advanced Directive on File Review of Systems Constitutional: Reports: no symptoms Eye: Reports: no symptoms ENT: Reports: no symptoms Respiratory: Reports: no symptoms Cardiovascular: Reports: no symptoms Gastrointestinal: Reports: no symptoms Genitourinary: Reports: no symptoms Musculoskeletal: Reports: no symptoms Skin: Reports: no symptoms Psychiatric: Reports: no symptoms Neurological: Reports: no symptoms Endocrine: Reports: no symptoms Hematologic/Lymphatic: Reports: no symptoms Physical Exam General Appearance: no apparent distress, lethargic, confused Lines, tubes and drains: peripheral HEENT: normocephalic, atraumatic, anicteric, mucous membranes moist, PERRL Neck: non-tender, normal alignment, supple, normal inspection Respiratory/Chest: chest wall non-tender, lungs clear, normal breath sounds, no respiratory distress, no accessory muscle use Cardiovascular/Chest: normal peripheral pulses, normal rate, regular rhythm Abdomen: normal bowel sounds, non tender, soft, no organomegaly, no mass Extremities: normal range of motion, non-tender, normal inspection, no calf tenderness, normal capillary refill, non-pitting Skin Exam: normal pigmentation, warm/dry, cyanotic 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40) L Hemoglobin 9.6 G/DL (12.0-16.0) L Hematocrit 28.5 % (37.0-47.0) L Mean Corpuscular Volume 91 FL (80-99) Mean Corpuscular Hemoglobin 30.6 PG (27.0-31.0) Mean Corpuscular Hemoglobin Concent 33.6 G/DL (32.0-36.0) Red Cell Distribution Width 13.4 % (11.6-14.8) Platelet Count 248 K/UL (150-450) Mean Platelet Volume 7.8 FL (6.5-10.1) Neutrophils (%) (Auto) 66.1 % (45.0-75.0) Lymphocytes (%) (Auto) 19.9 % (20.0-45.0) L Monocytes (%) (Auto) 11.8 % (1.0-10.0) H Eosinophils (%) (Auto) 1.4 % (0.0-3.0) Basophils (%) (Auto) 0.8 % (0.0-2.0) Sodium Level 145 MMOL/L (136-145) Potassium Level 4.0 MMOL/L (3.5-5.1) Chloride Level 106 MMOL/L (98-107) Carbon Dioxide Level 26 MMOL/L (21-32) Anion Gap 13 mmol/L (5-15) Blood Urea Nitrogen 75 mg/dL (7-18) H Creatinine 3.8 MG/DL (0.55-1.30) H Estimat Glomerular Filtration Rate 13.6 mL/min (>60) Glucose Level 145 MG/DL (74-106) H Lactic Acid Level 1.50 mmol/L (0.4-2.0) Calcium Level 10.0 MG/DL (8.5-10.1) Total Bilirubin 0.4 MG/DL (0.2-1.0) Aspartate Amino Transf (AST/SGOT) 47 U/L (15-37) H Alanine Aminotransferase (ALT/SGPT) 46 U/L (12-78) Alkaline Phosphatase 107 U/L (46-116) Troponin I 0.347 ng/mL (0.000-0.056) 0.298 ng/mL (0.000-0.056) Pro-B-Type Natriuretic Peptide 8006 pg/mL (0-125) H Total Protein 6.4 G/DL (6.4-8.2) Albumin 3.1 G/DL (3.4-5.0) L Globulin 3.3 g/dL Albumin/Globulin Ratio 0.9 (1.0-2.7) L Urine Color Yellow Urine Appearance Clear Urine pH 5 (4.5-8.0) Urine Specific [place] 1.015 (1.005-1.035) Urine Protein 3+ (NEGATIVE) H Urine Glucose (UA) Negative (NEGATIVE) Urine Ketones Negative (NEGATIVE) Urine Blood 4+ (NEGATIVE) H Urine Nitrite Positive (NEGATIVE) H Urine Bilirubin Negative (NEGATIVE) Urine Urobilinogen Normal MG/DL (0.0-1.0) Urine Leukocyte Esterase 2+ (NEGATIVE) H Urine RBC 2-4 /HPF (0 - 2) H Urine WBC 5-10 /HPF (0 - 2) H Urine Squamous Epithelial Cells Few /LPF (NONE/OCC) Urine Bacteria Few /HPF (NONE) Microbiology Date/Time Source Procedure Growth Status 3/22/20 12:30 Nasal Nares - Final Complete 07/14/19 12:30 Nasal Nares - Final Complete 07/14/19 12:00 Rectum Received Height (Feet): 5 Height (Inches): 3.00 Weight (Pounds): 119 Medications Current Medications Medications (Trade) Dose Ordered Sig/Joan Route PRN Reason Start Time Stop Time Status Last Admin Dose Admin Acetaminophen (Tylenol) 650 mg Q4H PRN ORAL Mild Pain (Pain Scale 1-3) 07/14/19 14:45 08/13/19 14:44 Atorvastatin Calcium (Lipitor) 10 mg QHS GT 07/14/19 21:00 10/12/19 20:59 Azithromycin 500 mg/Sodium Chloride 275 ml @ 275 mls/hr DAILY IV 07/15/19 09:00 07/22/19 08:59 Bisacodyl (Dulcolax) 10 mg HSPRN PRN RECTAL Constipation 07/14/19 21:00 10/12/19 20:59 Dextrose (Dextrose 50%) 25 ml Q30M PRN IV Hypoglycemia 07/14/19 14:45 10/12/19 14:44 Dextrose (Dextrose 50%) 50 ml Q30M PRN IV Hypoglycemia 07/14/19 14:45 10/12/19 14:44 Docusate Sodium (Colace) 100 mg EVERY 12 HOURS ORAL 07/14/19 21:00 08/13/19 20:59 Furosemide (Lasix) 80 mg DAILY IV 07/14/19 16:00 07/17/19 15:59 Heparin Sodium (Porcine) (Heparin 5000 units/ml) 5,000 units EVERY 12 HOURS SUBQ 07/14/19 21:00 08/28/19 20:59 Hydralazine HCl (Apresoline) 10 mg Q4H PRN IV For High Blood Pressure 07/14/19 15:30 10/12/19 15:29 Magnesium Hydroxide (Mom) 30 ml HSPRN PRN ORAL Constipation 07/14/19 21:00 08/13/19 20:59 Morphine Sulfate (Morphine Sulfate) 2 mg Q4H PRN IVP Severe Pain (Pain Scale 7-10) 07/14/19 15:00 07/21/19 14:59 Ondansetron HCl (Zofran) 4 mg Q6H PRN IVP Nausea & Vomiting 07/14/19 14:45 08/13/19 14:44 Piperacillin Sod/ Tazobactam Sod 2.25 gm/Sodium Chloride 110 ml @ 220 mls/hr Q8HR IVPB 07/14/19 22:00 07/21/19 21:59 Vancomycin HCl (Vanco rx to dose) 1 ea DAILY PRN MISC Per rx protocol 07/14/19 14:45 08/13/19 14:44 Vancomycin HCl 1 gm/Dextrose 275 ml @ 183.708 mls/hr ONCE IVPB 07/14/19 18:00 07/14/19 20:00 Assessment/Plan Status: stable Assessment/Plan: Assessment/Plan Assessment/Plan: Heart failure elevated BNP Elevated troponin HTN AMS Dysphagia s/p PEG ESRD on HD Syncope/fall -Serial EKG/Troponin - now down trending -maintain HD -Echocardiogram -Defer stress testing/cardiac cath -Continue aspirin -Continue statin -Continue lasix -Follow cultures -Supportive care Melchor Cerna MD Jul 14, 2019 18:56
--- NOTE | 2019-07-14 19:29 | Consultation ---
DATE OF CONSULTATION: 07/14/2019 CONSULTING PHYSICIAN: Omar Mckoy M.D. REFERRING PHYSICIAN: REASON FOR CONSULTATION: For evaluation and followup of hematuria. HISTORY OF PRESENT ILLNESS: This is an 89-year-old female. The patient is known to me from recent evaluation in the hospital because of gross hematuria. At that time, she had a Sanchez catheter indwelling and she had hematuria which eventually improved. She also has end-stage renal disease and is on dialysis. The patient was discharged from the hospital 2 days ago and went to a detention facility. I did instruct the Sanchez to be removed in the nursing facility, which I believe was done yesterday. The patient is now brought back to the hospital because of fevers. Followup Urology evaluation has been requested. Apparently, the patient is incontinent. Some urine was obtained in the emergency room by straight cath. Most of the history was obtained from the chart. PAST MEDICAL HISTORY: Significant for end-stage renal disease, on dialysis, history of pressure wounds, hypertension, and pancreatic cyst. PAST SURGICAL HISTORY: Unknown. She has had a PEG. CURRENT MEDICATIONS: In the hospital, she is on azithromycin, piperacillin, heparin, Colace, Dulcolax, Lipitor, Lasix, morphine, Tylenol, and Zofran. ALLERGIES: No known drug allergies. SOCIAL HISTORY: She was recently in a shelter. Smoking history is unknown. FAMILY HISTORY: Unable to obtain. PHYSICAL EXAMINATION: GENERAL: An elderly female, somewhat cachectic, temperature is currently 99.8, blood pressure 120/60, pulse 75, respirations are 18. HEENT: Normocephalic. NECK: Supple. ABDOMEN: Soft. LABORATORY DATA: White count is 9.5, hemoglobin 9.6, and platelets are 248,000. BUN is 75, creatinine 3.8, potassium 4.0. UA showed 3+ protein, 2-4 rbc's, 5-10 wbc's. DIAGNOSTIC IMAGING STUDIES: The patient had a CT scan of the abdomen and pelvis during the last admission. At that time, the kidneys were reportedly normal. IMPRESSION: 1. Hematuria, which was previously gross and now microscopic. 2. End-stage renal disease, on hemodialysis. 3. Urinary retention history, now with incontinence. 4. Probable neurogenic bladder. 5. Pyuria. 6. Proteinuria. 7. History of acute kidney injury. PLAN AND DISCUSSION: Again, the patient did have gross hematuria and apparently it is microscopic now. She will be monitored. She does have fevers. She has some pyuria, which may be secondary to infection or colonization from recent Sanchez. Nevertheless, she is going to be treated with antibiotics and urine culture will be obtained. At this time, there is no active bleeding in the urine and at some point, we will consider cystoscopy to evaluate the bladder if medically feasible. Thank you very much for this consultation. Omar Mckoy M.D. DR: Daniel JOB#: [id number] CC:
--- NOTE | 2019-07-14 19:48 | NUR ---
NURSE NOTES: Troponin trending down 0.298 then after 3 hours 0.296 pt. asymptomatic.
--- NOTE | 2019-07-14 19:49 | NUR ---
HAND-OFF: Report given to lA PURVIS. Pt. remain stable.
--- NOTE | 2019-07-14 19:50 | NUR ---
Received patient from HYUN Watts. Patient is aaox1, opens eyes, confused, occasionally responds verbally, vss, afebrile , and with no acute distress. 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 Patient is on 2L NC, G-Tube feeding Jevity 1.2 running at 20mL/hr witha gaol of 50mL/hr. Patient was reported as anuric and on dialysis with her permacath on her right upper chest. Dressing for permacath changed 07/12/19. IV site is paten with no infection. IV on right forearm 20g. Skin issues noted with pictures. Bed at its lowest position, call light in reach, and x3 bed rails are up.
[2019-07-14] MEDS: Heparin 5000 units/ml inj SUBQ SCH (20:31)
[2019-07-14] MEDS: Docusate 100mg cap ORAL SCH (20:32)
[2019-07-14] MEDS ORDERED: Milk of Magnesia 30ml Ud ORAL PRN (21:00)
[2019-07-14] MEDS: Piperacillin/Tazobactam 2.25 GM in NS 110 ML IVPB SCH (22:03)
--- NOTE | 2019-07-14 22:18 | NUR ---
NURSE NOTES: electronics engineering technologistBrittany, called HYUN Parmar to report Troponin of 0.254. Troponin has been trending down. Will continue to monitor. No call to MD at this time.
[2019-07-15] VITALS (8 sets, daily range): BP systolic 105–129; BP diastolic 50–78
--- NOTE | 2019-07-15 01:19 | NUR ---
NURSE NOTES: Patient is resting well with no sign of distress. Patient is resistant to oral care. will attempt oral care again later.
--- NOTE | 2019-07-15 04:38 | NUR ---
NURSE NOTES: Patient is awake and responds appropriately to simple conversation with one to two word answers such as "Thank you".
[2019-07-15] MEDS: Piperacillin/Tazobactam 2.25 GM in NS 110 ML IVPB SCH ×3 (05:07→22:26)
[2019-07-15 06:11] LABS: ANION GAP 13 mmol/L (5-15); BLOOD UREA NITROGEN 91 mg/dL (7-18); CALCIUM 9.8 MG/DL (8.5-10.1); CARBON DIOXIDE 27 MMOL/L (21-32); CHLORIDE 104 MMOL/L (98-107); CREATININE 4.1 MG/DL (0.55-1.30); POTASSIUM 4.1 MMOL/L (3.5-5.1); SODIUM 144 MMOL/L (136-145)
[2019-07-15 06:14] LABS: BASOPHILS % (AUTO) 0.8 % (0.0-2.0); EOSINOPHILS % (AUTO) 3.3 % (0.0-3.0); HEMATOCRIT 27.8 % (37.0-47.0); HEMOGLOBIN 9.3 G/DL (12.0-16.0); LYMPHOCYTES % (AUTO) 14.5 % (20.0-45.0); MEAN CORPUSCULAR VOLUME 92 FL (80-99); MONOCYTES % (AUTO) 9.5 % (1.0-10.0); NEUTROPHILS % (AUTO) 71.9 % (45.0-75.0); PLATELET COUNT 260 K/UL (150-450); RED BLOOD COUNT 3.01 M/UL (4.20-5.40); RED CELL DISTRIBUTION WIDTH 13.4 % (11.6-14.8); WHITE BLOOD COUNT 10.5 K/UL (4.8-10.8)
--- NOTE | 2019-07-15 07:29 | NUR ---
HAND-OFF: Report given to HYUN Aldrich.
--- NOTE | 2019-07-15 07:30 | NUR ---
NURSE NOTES: Received report from Al PURVIS. Pt in bed awake and opening eyes. No pain noted on facial pain scale. sating with 99% on 2LPM via N/C. IV site in RFA 20G TKO patent and asymptomatic. Bed in lowest position and locked. Call light within easy reach. HOB elevated with 45 degree. Multiple pressure ulcers reported from previous shift. Jevity 1.2 @50ml/hr patent and asymptomatic and no residual noted. Noted perma cath on right internal jugular patent and asymptomatic. Made Dr. Cerna aware of episode of A-fib at 12am today. No new order received. Will continue to plan of care.
--- NOTE | 2019-07-15 08:35 | NUR ---
RD ASSESSMENT & RECOMMENDATIONS SEE CARE ACTIVITY FOR COMPLETE ASSESSMENT DAILY ESTIMATED NEEDS: Needs based on Wounds, HD 51.8kg 30-35 kcals/kg [id number] total kcals 1.25-1.8 g protein/kg 65-93 g total protein Fluids per MD mL/kg . total fluid mLs NUTRITION DIAGNOSIS: * Increased kcal and prot needs r/t wound healing and renal failure as evidenced by w/ multiple pressure injuries, pending re-evaluation, s/p recent PermCath placement, HD dependent. * Swallowing difficulty R/T dysphagia as evidenced by s/p recent PEG placement, on GT feeding. CURRENT TF:Jevity 1.2 @ 50ml/hr x 24 hrs ENTERAL NUTRITION RECOMMENDATIONS: Nepro @ 38ml/hr x 24 hrs to provide 912ml, 1642kcal, 74g prot, 663ml free water - Rec TF change to Nepro- HD dependent - Initiate Nepro @ 28ml/hr x 6 hrs, increase to goal as tolerated. - HOB over 30 degrees/ water flush per MD ADDITIONAL RECOMMENDATIONS: 1) Calibrated bedscale wt 2) Wound Care: add Nephrovite x 1 add Saw 1ptk BID when TF well tolerated @ goal 3) Check phos and mag levels 4) Monitor BGs, need for nISS 5) Add probiotics: h/o LBM prev adm, prolonged use of abx .
[2019-07-15] MEDS: Docusate 100mg cap ORAL SCH (09:00)
--- NOTE | 2019-07-15 09:12 | Urology Progress Note ---
Assessment/Plan Status: stable Assessment/Plan: 1. Hematuria, which was previously gross and now microscopic. 2. End-stage renal disease, on hemodialysis. 3. Urinary retention history, now with incontinence. 4. Probable neurogenic bladder. 5. Pyuria. 6. Proteinuria. 7. History of acute kidney injury. 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 Subjective Allergies: Coded Allergies: No Known Allergies (Unverified , 06/24/19) Subjective all noted Objective Last 24 Hour Vital Signs Date Time Temp Pulse Resp B/P (MAP) Pulse Ox O2 Delivery O2 Flow Rate FiO2 07/15/19 08:00 97.7 87 19 111/66 (81) 100 98 07/15/19 08:00 2.0 07/15/19 04:00 2.0 07/15/19 04:00 97.9 98 19 129/73 (91) 100 98 07/15/19 03:25 96 07/15/19 00:00 2.0 07/15/19 00:00 Nasal Cannula 2.0 Nasal Cannula 2.0 07/15/19 00:00 97.8 89 15 115/64 (81) 95 89 07/14/19 23:35 93 07/14/19 21:00 Nasal Cannula 2.0 07/14/19 21:00 Nasal Cannula 2.0 07/14/19 20:00 2.0 07/14/19 19:45 81 07/14/19 17:34 Room Air 2.0 07/14/19 16:30 82 20 129/83 98 Nasal Cannula 4.0 07/14/19 16:30 97.3 86 21 110/49 (69) 96 07/14/19 15:35 99.8 86 15 135/70 99 Nasal Cannula 4.0 07/14/19 14:29 75 18 128/60 97 Nasal Cannula 4.0 07/14/19 12:35 99.8 87 14 160/70 94 Nasal Cannula 4.0 07/14/19 12:35 12 14 Nasal Cannula 4.0 07/14/19 11:53 99.9 12 14 160/70 (100) 94 Nasal Cannula 4.0 Intake and Output 07/14/19 07/15/19 19:00 07:00 Intake Total 405 ml 670 ml Balance 405 ml 670 ml Intake Free Water 150 ml IV Total 385 ml 220 ml Tube Feeding 20 ml 300 ml # Voids 1 # Bowel Movements 1 Microbiology Date/Time Source Procedure Growth Status 07/14/19 12:30 Nasal Nares - Final Complete 07/14/19 12:30 Nasal Nares - Final Complete 07/14/19 12:00 Rectum Received Current Medications Medications (Trade) Dose Ordered Sig/Joan Route PRN Reason Start Time Stop Time Status Last Admin Dose Admin Acetaminophen (Tylenol) 650 mg Q4H PRN ORAL Mild Pain (Pain Scale 1-3) 07/14/19 14:45 08/13/19 14:44 Atorvastatin Calcium (Lipitor) 10 mg QHS GT 07/14/19 21:00 10/12/19 20:59 07/14/19 20:32 Azithromycin 500 mg/Sodium Chloride 275 ml @ 275 mls/hr DAILY IV 07/15/19 09:00 07/22/19 08:59 Bisacodyl (Dulcolax) 10 mg HSPRN PRN RECTAL Constipation 07/14/19 21:00 10/12/19 20:59 Chlorhexidine Gluconate (Cari-Hex 2%) 1 applic DAILY@2000 TOPIC 07/15/19 20:00 10/13/19 19:59 Dextrose (Dextrose 50%) 25 ml Q30M PRN IV Hypoglycemia 07/14/19 14:45 10/12/19 14:44 Dextrose (Dextrose 50%) 50 ml Q30M PRN IV Hypoglycemia 07/14/19 14:45 10/12/19 14:44 Docusate Sodium (Colace) 100 mg EVERY 12 HOURS ORAL 07/14/19 21:00 08/13/19 20:59 07/14/19 20:32 Furosemide (Lasix) 80 mg DAILY IV 07/14/19 16:00 07/17/19 15:59 07/14/19 18:53 Heparin Sodium (Porcine) (Heparin 5000 units/ml) 5,000 units EVERY 12 HOURS SUBQ 07/14/19 21:00 08/28/19 20:59 07/14/19 20:31 Hydralazine HCl (Apresoline) 10 mg Q4H PRN IV For High Blood Pressure 07/14/19 15:30 10/12/19 15:29 Magnesium Hydroxide (Mom) 30 ml HSPRN PRN ORAL Constipation 07/14/19 21:00 08/13/19 20:59 Morphine Sulfate (Morphine Sulfate) 2 mg Q4H PRN IVP Severe Pain (Pain Scale 7-10) 07/14/19 15:00 07/21/19 14:59 Ondansetron HCl (Zofran) 4 mg Q6H PRN IVP Nausea & Vomiting 07/14/19 14:45 08/13/19 14:44 Piperacillin Sod/ Tazobactam Sod 2.25 gm/Sodium Chloride 110 ml @ 220 mls/hr Q8HR IVPB 07/14/19 22:00 07/21/19 21:59 07/15/19 05:07 Vancomycin HCl (Vanco rx to dose) 1 ea DAILY PRN MISC Per rx protocol 07/14/19 14:45 08/13/19 14:44 Laboratory Tests 07/14/19 12:00: White Blood Count 9.5, Red Blood Count 3.13L, Hemoglobin 9.6L, Hematocrit 28.5L , Mean Corpuscular Volume 91, Mean Corpuscular Hemoglobin 30.6, Mean Corpuscular Hemoglobin Concent 33.6, Red Cell Distribution Width 13.4, Platelet Count 248, Mean Platelet Volume 7.8, Neutrophils (%) (Auto) 66.1, Lymphocytes (% ) (Auto) 19.9L, Monocytes (%) (Auto) 11.8H, Eosinophils (%) (Auto) 1.4, Basophils (%) (Auto) 0.8, Sodium Level 145, Potassium Level 4.0, Chloride Level 106, Carbon Dioxide Level 26, Anion Gap 13, Blood Urea Nitrogen 75H, Creatinine 3.8H, Estimat Glomerular Filtration Rate 13.6, Glucose Level 145H, Lactic Acid Level 1.50, Calcium Level 10.0, Total Bilirubin 0.4, Aspartate Amino Transf (AST /SGOT) 47H, Alanine Aminotransferase (ALT/SGPT) 46, Alkaline Phosphatase 107, Troponin I 0.347H, Pro-B-Type Natriuretic Peptide 8006H, Total Protein 6.4, Albumin 3.1L, Globulin 3.3, Albumin/Globulin Ratio 0.9L 07/14/19 12:40: Urine Color Yellow, Urine Appearance Clear, Urine pH 5, Urine Specific [place] 1.015, Urine Protein 3+H, Urine Glucose (UA) Negative, Urine Ketones Negative, Urine Blood 4+H, Urine Nitrite PositiveH, Urine Bilirubin Negative, Urine Urobilinogen Normal, Urine Leukocyte Esterase 2+H, Urine RBC 2-4H, Urine WBC 5- 10H, Urine Squamous Epithelial Cells Few, Urine Bacteria Few 07/14/19 16:00: Troponin I 0.298H 07/14/19 18:50: Troponin I 0.296H 07/14/19 21:50: Troponin I 0.254H 07/15/19 05:00: White Blood Count 10.5, Red Blood Count 3.01L, Hemoglobin 9.3L, Hematocrit 27.8L , Mean Corpuscular Volume 92, Mean Corpuscular Hemoglobin 30.8, Mean Corpuscular Hemoglobin Concent 33.5, Red Cell Distribution Width 13.4, Platelet Count 260, Mean Platelet Volume 7.6, Neutrophils (%) (Auto) 71.9, Lymphocytes (% ) (Auto) 14.5L, Monocytes (%) (Auto) 9.5, Eosinophils (%) (Auto) 3.3H, Basophils (%) (Auto) 0.8, Sodium Level 144, Potassium Level 4.1, Chloride Level 104, Carbon Dioxide Level 27, Anion Gap 13, Blood Urea Nitrogen 91H, Creatinine 4.1H, Estimat Glomerular Filtration Rate 12.4, Glucose Level 151H, Calcium Level 9.8, Pro-B-Type Natriuretic Peptide 6363H Height (Feet): 5 Height (Inches): 3.00 Weight (Pounds): 119 Objective exam stable Omar Mckoy MD Jul 15, 2019 09:12
[2019-07-15] MEDS: Azithromycin 500 MG in NS 275 ML IV SCH (09:38)
[2019-07-15] MEDS: Heparin 5000 units/ml inj SUBQ SCH ×2 (09:39→21:00)
--- NOTE | 2019-07-15 09:59 | Consultation ---
History of Present Illness General Chief Complaint: Fever Present Illness HPI This is a 89-year-old female with past medical history of recent acute renal failure, s/p right chest wall permacath on HD (likely due to ATN) dysphasia s/p PEG, multiple pressure wounds, HTN, h/o AMS was recently discharged from this facility for KAREN/rhabdo, unwitnessed fall, was sent to [facility] and returned here due to fevers. Patient was admitted for persistent fevers and for sepsis/Covidien 19 rule out. Patient AAO x1, history very limited due to patient mental status which appears to be at baseline. Allergies: Coded Allergies: No Known Allergies (Unverified , 06/24/19) Medication History Scheduled Furosemide* (Lasix*), 40 MG GT DAILY Gabapentin (Gabapentin), 300 MG GT BID Discontinued Medications Furosemide* (Lasix*), 20 MG ORAL TID, (Reported) Discontinued Reason: MD discontinued med Gabapentin* (Gabapentin*), 600 MG ORAL THREE TIMES A DAY, (Reported) Discontinued Reason: MD discontinued med Hydroxyzine HCl (Hydroxyzine HCl), 25 MG ORAL Q6HR PRN for Itching, (Reported) Discontinued Reason: MD discontinued med Oxycodone Hcl/Acetaminophen 10-325 Mg Tablet (Percocet 10-325 Mg Tablet*), 1 TAB ORAL Q6H PRN for For Pain, (Reported) Discontinued Reason: MD discontinued med [Unable To Obtain], (Reported) Discontinued Reason: MD discontinued med Patient History Healthcare decision maker Resuscitation status Full Code Advanced Directive on File Review of Systems ROS Narrative Unable to obtain due to AMS Physical Exam Last 24 Hour Vital Signs Date Time Temp Pulse Resp B/P (MAP) Pulse Ox O2 Delivery O2 Flow Rate FiO2 07/15/19 08:00 97.7 87 19 111/66 (81) 100 98 07/15/19 08:00 87 07/15/19 08:00 2.0 07/15/19 04:00 2.0 07/15/19 04:00 97.9 98 19 129/73 (91) 100 98 07/15/19 03:25 96 07/15/19 00:00 2.0 07/15/19 00:00 Nasal Cannula 2.0 Nasal Cannula 2.0 07/15/19 00:00 97.8 89 15 115/64 (81) 95 89 07/14/19 23:35 93 07/14/19 21:00 Nasal Cannula 2.0 07/14/19 21:00 Nasal Cannula 2.0 07/14/19 20:00 2.0 07/14/19 19:45 81 07/14/19 17:34 Room Air 2.0 07/14/19 16:30 82 20 129/83 98 Nasal Cannula 4.0 07/14/19 16:30 97.3 86 21 110/49 (69) 96 07/14/19 15:35 99.8 86 15 135/70 99 Nasal Cannula 4.0 07/14/19 14:29 75 18 128/60 97 Nasal Cannula 4.0 07/14/19 12:35 99.8 87 14 160/70 94 Nasal Cannula 4.0 07/14/19 12:35 12 14 Nasal Cannula 4.0 07/14/19 11:53 99.9 12 14 160/70 (100) 94 Nasal Cannula 4.0 Intake and Output 07/14/19 07/15/19 19:00 07:00 Intake Total 405 ml 670 ml Balance 405 ml 670 ml Intake Free Water 150 ml IV Total 385 ml 220 ml Tube Feeding 20 ml 300 ml # Voids 1 # Bowel Movements 1 Laboratory Tests Test 07/14/19 12:00 07/14/19 12:40 07/14/19 16:00 07/14/19 18:50 White Blood Count 9.5 K/UL (4.8-10.8) Red Blood Count 3.13 M/UL (4.20-5.40) L Hemoglobin 9.6 G/DL (12.0-16.0) L Hematocrit 28.5 % (37.0-47.0) L Mean Corpuscular Volume 91 FL (80-99) Mean Corpuscular Hemoglobin 30.6 PG (27.0-31.0) Mean Corpuscular Hemoglobin Concent 33.6 G/DL (32.0-36.0) Red Cell Distribution Width 13.4 % (11.6-14.8) Platelet Count 248 K/UL (150-450) Mean Platelet Volume 7.8 FL (6.5-10.1) Neutrophils (%) (Auto) 66.1 % (45.0-75.0) Lymphocytes (%) (Auto) 19.9 % (20.0-45.0) L Monocytes (%) (Auto) 11.8 % (1.0-10.0) H Eosinophils (%) (Auto) 1.4 % (0.0-3.0) Basophils (%) (Auto) 0.8 % (0.0-2.0) Sodium Level 145 MMOL/L (136-145) Potassium Level 4.0 MMOL/L (3.5-5.1) Chloride Level 106 MMOL/L (98-107) Carbon Dioxide Level 26 MMOL/L (21-32) Anion Gap 13 mmol/L (5-15) Blood Urea Nitrogen 75 mg/dL (7-18) H Creatinine 3.8 MG/DL (0.55-1.30) H Estimat Glomerular Filtration Rate 13.6 mL/min (>60) Glucose Level 145 MG/DL (74-106) H Lactic Acid Level 1.50 mmol/L (0.4-2.0) Calcium Level 10.0 MG/DL (8.5-10.1) Total Bilirubin 0.4 MG/DL (0.2-1.0) Aspartate Amino Transf (AST/SGOT) 47 U/L (15-37) H Alanine Aminotransferase (ALT/SGPT) 46 U/L (12-78) Alkaline Phosphatase 107 U/L (46-116) Troponin I 0.347 ng/mL (0.000-0.056) 0.298 ng/mL (0.000-0.056) 0.296 ng/mL (0.000-0.056) Pro-B-Type Natriuretic Peptide 8006 pg/mL (0-125) H Total Protein 6.4 G/DL (6.4-8.2) Albumin 3.1 G/DL (3.4-5.0) L Globulin 3.3 g/dL Albumin/Globulin Ratio 0.9 (1.0-2.7) L Urine Color Yellow Urine Appearance Clear Urine pH 5 (4.5-8.0) Urine Specific [place] 1.015 (1.005-1.035) Urine Protein 3+ (NEGATIVE) H Urine Glucose (UA) Negative (NEGATIVE) Urine Ketones Negative (NEGATIVE) Urine Blood 4+ (NEGATIVE) H Urine Nitrite Positive (NEGATIVE) H Urine Bilirubin Negative (NEGATIVE) Urine Urobilinogen Normal MG/DL (0.0-1.0) Urine Leukocyte Esterase 2+ (NEGATIVE) H Urine RBC 2-4 /HPF (0 - 2) H Urine WBC 5-10 /HPF (0 - 2) H Urine Squamous Epithelial Cells Few /LPF (NONE/OCC) Urine Bacteria Few /HPF (NONE) Test 07/14/19 21:50 07/15/19 05:00 Troponin I 0.254 ng/mL (0.000-0.056) White Blood Count 10.5 K/UL (4.8-10.8) Red Blood Count 3.01 M/UL (4.20-5.40) L Hemoglobin 9.3 G/DL (12.0-16.0) L Hematocrit 27.8 % (37.0-47.0) L Mean Corpuscular Volume 92 FL (80-99) Mean Corpuscular Hemoglobin 30.8 PG (27.0-31.0) Mean Corpuscular Hemoglobin Concent 33.5 G/DL (32.0-36.0) Red Cell Distribution Width 13.4 % (11.6-14.8) Platelet Count 260 K/UL (150-450) Mean Platelet Volume 7.6 FL (6.5-10.1) Neutrophils (%) (Auto) 71.9 % (45.0-75.0) Lymphocytes (%) (Auto) 14.5 % (20.0-45.0) L Monocytes (%) (Auto) 9.5 % (1.0-10.0) Eosinophils (%) (Auto) 3.3 % (0.0-3.0) H Basophils (%) (Auto) 0.8 % (0.0-2.0) Sodium Level 144 MMOL/L (136-145) Potassium Level 4.1 MMOL/L (3.5-5.1) Chloride Level 104 MMOL/L (98-107) Carbon Dioxide Level 27 MMOL/L (21-32) Anion Gap 13 mmol/L (5-15) Blood Urea Nitrogen 91 mg/dL (7-18) H Creatinine 4.1 MG/DL (0.55-1.30) H Estimat Glomerular Filtration Rate 12.4 mL/min (>60) Glucose Level 151 MG/DL (74-106) H Calcium Level 9.8 MG/DL (8.5-10.1) Pro-B-Type Natriuretic Peptide 6363 pg/mL (0-125) H Microbiology Date/Time Source Procedure Growth Status 07/14/19 12:30 Nasal Nares - Final Complete 07/14/19 12:30 Nasal Nares - Final Complete 07/14/19 12:00 Rectum Received Height (Feet): 5 Height (Inches): 3.00 Weight (Pounds): 119 Medications Current Medications Medications (Trade) Dose Ordered Sig/Joan Route PRN Reason Start Time Stop Time Status Last Admin Dose Admin Acetaminophen (Tylenol) 650 mg Q4H PRN ORAL Mild Pain (Pain Scale 1-3) 07/14/19 14:45 08/13/19 14:44 Atorvastatin Calcium (Lipitor) 10 mg QHS GT 07/14/19 21:00 10/12/19 20:59 07/14/19 20:32 Azithromycin 500 mg/Sodium Chloride 275 ml @ 275 mls/hr DAILY IV 07/15/19 09:00 07/22/19 08:59 07/15/19 09:38 Bisacodyl (Dulcolax) 10 mg HSPRN PRN RECTAL Constipation 07/14/19 21:00 10/12/19 20:59 Chlorhexidine Gluconate (Cari-Hex 2%) 1 applic DAILY@2000 TOPIC 07/15/19 20:00 10/13/19 19:59 Dextrose (Dextrose 50%) 25 ml Q30M PRN IV Hypoglycemia 07/14/19 14:45 10/12/19 14:44 Dextrose (Dextrose 50%) 50 ml Q30M PRN IV Hypoglycemia 07/14/19 14:45 10/12/19 14:44 Docusate Sodium (Colace) 100 mg EVERY 12 HOURS ORAL 07/14/19 21:00 08/13/19 20:59 07/14/19 20:32 Docusate Sodium (Colace) 100 mg Q12HR GT 07/15/19 21:00 08/14/19 20:59 Furosemide (Lasix) 80 mg DAILY IV 07/14/19 16:00 07/17/19 15:59 07/15/19 09:40 Heparin Sodium (Porcine) (Heparin 5000 units/ml) 5,000 units EVERY 12 HOURS SUBQ 07/14/19 21:00 08/28/19 20:59 07/15/19 09:39 Hydralazine HCl (Apresoline) 10 mg Q4H PRN IV For High Blood Pressure 07/14/19 15:30 10/12/19 15:29 Magnesium Hydroxide (Mom) 30 ml HSPRN PRN ORAL Constipation 07/14/19 21:00 08/13/19 20:59 Morphine Sulfate (Morphine Sulfate) 2 mg Q4H PRN IVP Severe Pain (Pain Scale 7-10) 07/14/19 15:00 07/21/19 14:59 Ondansetron HCl (Zofran) 4 mg Q6H PRN IVP Nausea & Vomiting 07/14/19 14:45 08/13/19 14:44 Piperacillin Sod/ Tazobactam Sod 2.25 gm/Sodium Chloride 110 ml @ 220 mls/hr Q8HR IVPB 07/14/19 22:00 07/21/19 21:59 07/15/19 05:07 Vancomycin HCl (Vanco rx to dose) 1 ea DAILY PRN MISC Per rx protocol 07/14/19 14:45 08/13/19 14:44 Objective Narrative General: NAD, A&O x 1, self only HEENT: NCAT, EOMi, PEERLA, nares patent and no symmetrical, no tonsillar exudates, mucous membranes moist CV: RRR, no murmurs, rubs, or gallops Pulm: CTAB, No wheezes, rhonchi, or rales, no accessory muscle usage or conversational dyspnea GI: Soft, nontender, nondistended, bowel sounds present, PEG tube in place, C/D/ I Neuro: CN 2-12 grossly intact bilaterally, no focal signs. Ext: No lower extremity edema bilaterally, LE contracted bilaterally Skin: Multiple pressure ulcers noted on hip/heels Lymph: No lymphadenopathy in upper extremity and lower extremity Assessment/Plan Diagnosis [place] I: #Acute renal failure recent started on HD in 06/2018- #Sepsis #Dementia #HTN #elevated troponin #Dysphagia s/p PEG #urinary retention - HD today - lasix 80 IV daily - cardiology eval - monitor UOP - urology eval - continue antibiotics- vanco, zosyn and azithro - follow blood cx - check iron panel, ferritin - check PTH, vitamin D - monitor BMP, mag and phos daily for now Rory Oconnor M.D. Jul 15, 2019 09:59
[2019-07-15] MEDS: Morphine Sulfate 2mg/ml Inj(IV/IM USE ONLY) IVP PRN (10:33)
--- NOTE | 2019-07-15 11:00 | NUR ---
NURSE NOTES: Noted continuous diarrhea. Dr. Ernst notified. Rectal tube ordered and inserted
--- NOTE | 2019-07-15 11:14 | NUR ---
P.T Note: P.T evaluation completed. Pt received in supine position, confused, lethargic only responds to name and not able to physically follow commands. Pt unable to engage in functional activities and total assist/dependent in all aspects bed mobilities. Pt is baseline dependent in all aspects of ADL/functional mobilities and not a candidate for skilled P.T services. Recommend DC to prior living arrangement for total care and comfort. Thank you for this referral.
--- NOTE | 2019-07-15 12:30 | NUR ---
NURSE NOTES: Dr. Mena paged for patient's multiple episodes of diarrhea. Rate of tube feeding changed to 30ml/hr and goal will be 35ml/hr
[2019-07-15] MEDS: Lactobacillus-GG tablet GT SCH ×2 (12:42→21:02)
--- NOTE | 2019-07-15 13:54 | NUR ---
SWALLOW/SPEECH THERAPY NOTE: PER RNAUSTEN, THIS PATIENT IS R/O COVID 19 AND HAS A PEG. SHE RECOMMENDED THAT THE SWALLOW EVAL WAIT UNTIL THE PATIENT IS CLEARED (FROM COVID 19)
--- NOTE | 2019-07-15 14:44 | NUR ---
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 99.8 HR 82 RR 14 B/P 160/70 4L NC O2 SAT@ 97% AST 47 TROP 0.347 BNP 8006 UA+PROTEIN,BLOOD,NITRITE,LEUKOCYTE ESTERASE,RBC,WBC,BACTERIA CXR=Mild interstitial edema COVID-19 PENDING IS: H/L INSERTED DROPLET ISOLATION ADMITTED TO STEP DOWN @ 1630 STEP DOWN STATUS DCP RETURN TO [facility]
--- NOTE | 2019-07-15 14:54 | NUR ---
NURSE NOTES:WOUND CARE NOTES:Pt presented on admission with multiple pressure injuries. Unstageable pressure injury R shoulder(L)3.8cm x (W)3.3cm. Base of wound is 100% necrotic and dry. Marginal erythema along borders. No erythema or induration periwound. Reabsorbed DTPI R Humerus. Base of injury has dry peeling brown skin with underlying dry pink epithelial. R elbow pressure injury has resolved. Full thickness pressure injury R hip (L)7cm x (W)13.1cm. Base of wound is 70%fibrinous slough,10% necrotic ,20% moist pink granulation. Edges are macerated.Small amt seropurulent non-odorous exudate noted. NO erythema ,induration or elevation in skin temp periwound. Opened DTPI Sacrum(L)9cm x (W)15cm. Base of wound is purple,indurated with an open wound at sacrococcygeal which has 100% slough(L)1.6cm x (W)1cm. Surrounding Skin hypopigmentation with areas of excoriation extending into perineum and perianal area. Unstageable pressure injury lateral R malleolus(L)2.5cm x (W)3cm. Base of wound is 100% dry necrosis. Edges adherent to base of wound. No erythema induration or fluctuance periwound. Reabsorbing DTPI R heel. Base of Heel is boggy,non-blanching erythema with dry peeling brown skin along edges.(L)4.2cm x (W)6cm. Resolving DTPI distal/lateral R foot. Stable dry brown eschar without fluctuance or induration(L)1cm x (W)1.5cm. Resolving DTPI Lateral R 5th metatarsal.Base of injury is dry,brown without fluctuance or induration.(L)0.6cm x (W)1cm Unstageable pressure injury L Hallux(L)4cm x (W)2.7cm. Base of wound is 80% necrotic,20% slough with marginal erythema along borders. No odor or exudate noted. DTPI L Heel. Base of injury maroon and fluctuant. Periwound is boggy but blanchable(L)5.5cm x (W)6.5cm. Tx.Plan: Cleanse R shoulder with Saline. Apply Therahoney. Apply Cavilon Periwound. Cover with Optifoam drsg. Change every 3 days and prn. Cleanse R hip with Saline. Apply Therahoney.Apply Moisture Barrier Periwound. Cover with Optifoam drsg. Change Daily and prn. Cleanse Sacrum with Saline. Apply Therahoney. Apply Moisture Barrier Paste periwound. Cover with Optifoam drsg. Change every 3 days and prn. Apply Moisture Barrier Paste to perineum and perianal areas with each incontinence care. Apply Betadine to R heel,Distal/lateral R foot ,R5th metatarsal. Cover with Optifoam drsg. Change every 3 days and prn. Apply Betadine to L hallux,and L heel. Cover each site with Optifoam drsg. Change every 3 days and prn. Reposition at least every 2hours or as tolerated. Place pillow between knees. off-load heels with pillow.
--- NOTE | 2019-07-15 15:27 | Consultation ---
History of Present Illness General Date patient seen: Jul 15, 2019 Reason for Hospitalization: Fever Present Illness HPI This is a 89-year-old female well-known to me from recent admission who was just recently discharged that presented to emerge department from nursing facility for evaluation of fevers. She was admitted for further care and management. Labs noted. Imaging reviewed. Patient with significant concerns of worsening decubitus formation and requiring extensive care. On last admission was cared for throughout the admission with some improvement and family was present to evaluate and identify patient's needs and concerns. When readmitted surgery was called to evaluate and assist with care. Patient seen, patient evaluated, chart reviewed Allergies: Coded Allergies: No Known Allergies (Unverified , 06/24/19) Medication History Scheduled Furosemide* (Lasix*), 40 MG GT DAILY Gabapentin (Gabapentin), 300 MG GT BID Discontinued Medications Furosemide* (Lasix*), 20 MG ORAL TID, (Reported) Discontinued Reason: MD discontinued med Gabapentin* (Gabapentin*), 600 MG ORAL THREE TIMES A DAY, (Reported) Discontinued Reason: MD discontinued med Hydroxyzine HCl (Hydroxyzine HCl), 25 MG ORAL Q6HR PRN for Itching, (Reported) Discontinued Reason: MD discontinued med Oxycodone Hcl/Acetaminophen 10-325 Mg Tablet (Percocet 10-325 Mg Tablet*), 1 TAB ORAL Q6H PRN for For Pain, (Reported) Discontinued Reason: MD discontinued med [Unable To Obtain], (Reported) Discontinued Reason: MD discontinued med Patient History Limited by: age, medical condition History Provided By: Medical Record, PMD Healthcare decision maker Resuscitation status Full Code Advanced Directive on File Past Medical/Surgical History Past Medical/Surgical History: (1) Decubitus skin ulcer (2) Fever (3) Rhabdomyolysis (4) Elevated troponin (5) KAREN (acute kidney injury) (6) Elevated brain natriuretic peptide (BNP) level (7) Fever (8) ESRD (end stage renal disease) on dialysis (9) ESRD (end stage renal disease) on dialysis (10) Pressure ulcer (11) Protein calorie malnutrition (12) Dysphagia Review of Systems Review of Symptoms General ROS: no weight loss or fever Psychological ROS: no depression or mood changes, no memory loss Ophthalmic ROS: no visual changes or eye irritation ENT ROS: no nasal congestion, hearing loss, dizziness Allergy and Immunology ROS: no allergic symptoms or urticaria Hematological and Lymphatic ROS: no swollen glands, unusual bleeding or bruising Endocrine ROS: no polyuria, polydipsia, weight changes, temperature intolerance Respiratory ROS: no cough, shortness of breath, or wheezing Cardiovascular ROS: no chest pain or dyspnea on exertion Gastrointestinal ROS: denies abdominal pain, bright red blood in stool. Musculoskeletal ROS: no myalgias or arthralgias Neurological ROS: no TIA or stroke symptoms Dermatological ROS: no new or changing skin lesions, rashes or pruritis difficult to obtain given medical condition Physical Exam Physical Exam General appearance: alert, cooperative, no distress, appears stated age Head: Normocephalic, without obvious abnormality, atraumatic Eyes: conjunctivae/corneas clear. PERRL, EOM's intact. Fundi benign Throat: Lips, mucosa, and tongue normal. Teeth and gums normal Neck: supple, symmetrical, trachea midline, no adenopathy, thyroid: not enlarged, symmetric, no tenderness/mass/nodules, no carotid bruit and no JVD Lungs: clear to auscultation bilaterally Heart: regular rate and rhythm, S1, S2 normal, no murmur, click, rub or gallop Abdomen: soft, non-tender. Bowel sounds normal. No masses, no organomegaly Extremities: extremities normal, atraumatic, no cyanosis or edema Pulses: 2+ and symmetric Skin: Skin color, texture, turgor normal. No rashes or lesions. see below Neurologic: Grossly normal Last 24 Hour Vital Signs Date Time Temp Pulse Resp B/P (MAP) Pulse Ox O2 Delivery O2 Flow Rate FiO2 07/15/19 12:00 98 07/15/19 12:00 98.0 76 19 121/78 (92) 98 07/15/19 09:00 Nasal Cannula 2.0 Nasal Cannula 2.0 07/15/19 08:00 97.7 87 19 111/66 (81) 100 98 07/15/19 08:00 87 07/15/19 08:00 2.0 07/15/19 04:00 2.0 07/15/19 04:00 97.9 98 19 129/73 (91) 100 98 07/15/19 03:25 96 07/15/19 00:00 2.0 07/15/19 00:00 Nasal Cannula 2.0 Nasal Cannula 2.0 07/15/19 00:00 97.8 89 15 115/64 (81) 95 89 07/14/19 23:35 93 07/14/19 21:00 Nasal Cannula 2.0 07/14/19 21:00 Nasal Cannula 2.0 07/14/19 20:00 2.0 07/14/19 19:45 81 07/14/19 17:34 Room Air 2.0 07/14/19 16:30 82 20 129/83 98 Nasal Cannula 4.0 07/14/19 16:30 97.3 86 21 110/49 (69) 96 07/14/19 15:35 99.8 86 15 135/70 99 Nasal Cannula 4.0 Intake and Output 07/14/19 07/15/19 19:00 07:00 Intake Total 405 ml 720 ml Balance 405 ml 720 ml Intake Free Water 150 ml IV Total 385 ml 220 ml Tube Feeding 20 ml 350 ml # Voids 1 # Bowel Movements 1 Laboratory Tests Test 07/14/19 16:00 07/14/19 18:50 07/14/19 21:50 07/15/19 05:00 Troponin I 0.298 ng/mL (0.000-0.056) 0.296 ng/mL (0.000-0.056) 0.254 ng/mL (0.000-0.056) White Blood Count 10.5 K/UL (4.8-10.8) Red Blood Count 3.01 M/UL (4.20-5.40) L Hemoglobin 9.3 G/DL (12.0-16.0) L Hematocrit 27.8 % (37.0-47.0) L Mean Corpuscular Volume 92 FL (80-99) Mean Corpuscular Hemoglobin 30.8 PG (27.0-31.0) Mean Corpuscular Hemoglobin Concent 33.5 G/DL (32.0-36.0) Red Cell Distribution Width 13.4 % (11.6-14.8) Platelet Count 260 K/UL (150-450) Mean Platelet Volume 7.6 FL (6.5-10.1) Neutrophils (%) (Auto) 71.9 % (45.0-75.0) Lymphocytes (%) (Auto) 14.5 % (20.0-45.0) L Monocytes (%) (Auto) 9.5 % (1.0-10.0) Eosinophils (%) (Auto) 3.3 % (0.0-3.0) H Basophils (%) (Auto) 0.8 % (0.0-2.0) Sodium Level 144 MMOL/L (136-145) Potassium Level 4.1 MMOL/L (3.5-5.1) Chloride Level 104 MMOL/L (98-107) Carbon Dioxide Level 27 MMOL/L (21-32) Anion Gap 13 mmol/L (5-15) Blood Urea Nitrogen 91 mg/dL (7-18) H Creatinine 4.1 MG/DL (0.55-1.30) H Estimat Glomerular Filtration Rate 12.4 mL/min (>60) Glucose Level 151 MG/DL (74-106) H Calcium Level 9.8 MG/DL (8.5-10.1) Pro-B-Type Natriuretic Peptide 6363 pg/mL (0-125) H Test 07/15/19 12:15 Random Vancomycin Level 18.5 ug/mL Height (Feet): 5 Height (Inches): 3.00 Weight (Pounds): 119 Medications Current Medications Medications (Trade) Dose Ordered Sig/Joan Route PRN Reason Start Time Stop Time Status Last Admin Dose Admin Acetaminophen (Tylenol) 650 mg Q4H PRN ORAL Mild Pain (Pain Scale 1-3) 07/14/19 14:45 08/13/19 14:44 Albumin Human 100 ml @ 100 mls/hr ONCE ONCE IV 07/15/19 15:15 07/15/19 16:14 Albumin Human 100 ml @ 100 mls/hr ONCE ONCE IV 07/15/19 15:15 07/15/19 16:14 Atorvastatin Calcium (Lipitor) 10 mg QHS GT 07/14/19 21:00 10/12/19 20:59 07/14/19 20:32 Azithromycin 500 mg/Sodium Chloride 275 ml @ 275 mls/hr DAILY IV 07/15/19 09:00 07/22/19 08:59 07/15/19 09:38 Chlorhexidine Gluconate (Cari-Hex 2%) 1 applic DAILY@2000 TOPIC 07/15/19 20:00 10/13/19 19:59 Dextrose (Dextrose 50%) 25 ml Q30M PRN IV Hypoglycemia 07/14/19 14:45 10/12/19 14:44 Dextrose (Dextrose 50%) 50 ml Q30M PRN IV Hypoglycemia 07/14/19 14:45 10/12/19 14:44 Furosemide (Lasix) 80 mg DAILY IV 07/14/19 16:00 07/17/19 15:59 07/15/19 09:40 Heparin Sodium (Porcine) (Heparin 5000 units/ml) 5,000 units EVERY 12 HOURS SUBQ 07/14/19 21:00 08/28/19 20:59 07/15/19 09:39 Hydralazine HCl (Apresoline) 10 mg Q4H PRN IV For High Blood Pressure 07/14/19 15:30 10/12/19 15:29 Lactobacillus Acidophilus (Culturelle) 1 tab Q12HR GT 07/15/19 12:14 10/13/19 12:13 07/15/19 12:42 Loperamide HCl (Imodium) 2 mg Q6H PRN GT Diarrhea 07/15/19 12:30 08/14/19 12:29 07/15/19 12:42 Morphine Sulfate (Morphine Sulfate) 2 mg Q4H PRN IVP Severe Pain (Pain Scale 7-10) 07/14/19 15:00 07/21/19 14:59 07/15/19 10:33 Ondansetron HCl (Zofran) 4 mg Q6H PRN IVP Nausea & Vomiting 07/14/19 14:45 08/13/19 14:44 Piperacillin Sod/ Tazobactam Sod 2.25 gm/Sodium Chloride 110 ml @ 220 mls/hr Q8HR IVPB 07/14/19 22:00 07/21/19 21:59 07/15/19 14:06 Vancomycin HCl (Vanco rx to dose) 1 ea DAILY PRN MISC Per rx protocol 07/14/19 14:45 08/13/19 14:44 Vancomycin HCl 500 mg/Dextrose 110 ml @ 110 mls/hr ONCE IVPB 07/15/19 18:00 07/15/19 20:00 Assessment/Plan Problem List: (1) Decubitus skin ulcer Assessment & Plan: Pt presented on admission with multiple pressure injuries. DTPI noted to R cheek. Base of wound is purple with marginal erythema along borders.(L)1.2cm x (W)1.6cm. Unstageable pressure injury R shoulder. Base of wound is 100% necrotic with marginal erythema along borders.(L)4.8cm x (W).3.5cm . DTPI R humerus. Base of wound is fluctuant and maroon in colour with surrounding erythema. (L)10.6cm x (W)3.1cm. DTPI R elbow.Base of wound is indurated with scattered areas that are purple in colour. An area of fluctuance in center. Marginal erythema along borders.(L) 5.3cm x (W)10.4cm. Partially opened Sacral DTPI. Base of wound is purple with surrounding erythema. Partial open wound cleft that is corby and moist.(L)5.3cm x (W) 4.5cm.NO odor or exudate noted. Non-blanching erythema periwound. DTPI L ischium . Base of wound is purple and indurated.(L)6cm x (W)7.5cm. Unstageable pressure injury R hip. Base of wound is 75% necrotic, 25% mixed erythema and slough. Borders are moist,soft with scattered areas that are black. Periwound is dusky and indurated.No odor or exudate noted. DTPI at posterior and medial aspect of L heel. Base of wound is maroon and fluctuant(L)4cm x (W)7cm. Unstageable pressure injury L Hallux. Base of wound is 100% necrotic but soft. Borders are erythematous. Periwound without induration or fluctuance.(L)2.5cm x (W)3cm. DTPI medial L malleolus. Base of wound fluctuant and maroon in colour.(L) 0.3cm x (W)1.2cm. DTPI medial L malleolus. Base of wound fluctuant and maroon in colour with Marginal erythema along borders.(L)0.3cm x (W)1.2cm. Intact blood filled blisters noted to L 1st Metatarsal laterally and head of metatarsal. Intact blood filled blisters noted to heads of L 2nd and L 3rd metatarsals. DTPI noted to posterior and lateral R Heel. Posterior R heel is maroon in colour and fluctuant at base. Laterally ,R heel is black and fluctuant at base.Periwound is boggy and non-blanchable.(L)7cm x (W)8cm. Unstageable pressure injury lateral R malleolus. Base of wound is 100% necrotic and dry.Marginal erythema along borders.Periwound is fluctuant and erythematous( L)1.2cm x (W)1.5cm. DTPI distal/lateral R foot. Base of wound is fluctuant and maroon in colour.(L) 1.3cm x (W)1.7cm. DTPI lateral R 5th metatarsal. Base of wound is maroon and fluctuant with marginal erythema along borders .(L)0.7cm x (W)1.1cm Tx.Plan: Cleanse Wound R shoulder with Saline. Apply Therahoney. Apply Cavilon Skin barrier periwound. Cover with Optifoam drsg every 3 days and prn. Cleanse R hip wound with Saline. Apply Therahoney with 4x4 Gauze. Apply Moisture Barrier Paste periwound.Cover with Optifoam drsg. Daily and prn. Apply Moisture Barrier Paste to Sacral wound and L Ischium. Cover each wound with Optifoam drsg every 3 days and prn. Apply Betadine to R humerus and R elbow . Cover each wound with Optifoam drsg. Change every 3 days and prn. Apply Betadine to wounds R heel, R malleolus and R foot . Cover each wound with Optifoam drsg every 3 days and prn. Apply Betadine to wounds L heel ,L medial malleolus and L foot. Cover each wound with Optifoam drsgs every 3 Days and prn. Air Fluidized Mattress. Reposition at least every 2hours or as tolerated. Place Pillow between knees. Off-load heels with pillow. Nutritional optimization ICD Codes: L89.90 - Pressure ulcer of unspecified site, unspecified stage SNOMED: 324882846 (2) Fever ICD Codes: R50.9 - Fever, unspecified SNOMED: 318246913 (3) Protein calorie malnutrition Assessment & Plan: DAILY ESTIMATED NEEDS: Needs based on Wounds, HD 51.8kg 30-35 kcals/kg 4925-4469 total kcals 1.25-1.8 g protein/kg 65-93 g total protein Fluids per MD mL/kg . total fluid mLs NUTRITION DIAGNOSIS: * Increased kcal and prot needs r/t wound healing and renal failure as evidenced by w/ multiple pressure injuries, pending re-evaluation, s/p recent PermCath placement, HD dependent. * Swallowing difficulty R/T dysphagia as evidenced by s/p recent PEG placement, on GT feeding. CURRENT TF:Jevity 1.2 @ 50ml/hr x 24 hrs ENTERAL NUTRITION RECOMMENDATIONS: Nepro @ 38ml/hr x 24 hrs to provide 912ml, 1642kcal, 74g prot, 663ml free water - Rec TF change to Nepro- HD dependent - Initiate Nepro @ 28ml/hr x 6 hrs, increase to goal as tolerated. - HOB over 30 degrees/ water flush per MD ADDITIONAL RECOMMENDATIONS: 1) Calibrated bedscale wt 2) Wound Care: add Nephrovite x 1 add Saw 1ptk BID when TF well tolerated @ goal 3) Check phos and mag levels 4) Monitor BGs, need for nISS 5) Add probiotics: h/o LBM prev adm, prolonged use of abx ICD Codes: E46 - Unspecified protein-calorie malnutrition SNOMED: 679042256 (4) Pressure ulcer ICD Codes: L89.90 - Pressure ulcer of unspecified site, unspecified stage SNOMED: 824630750 Anshul Nava Jul 15, 2019 15:27
--- NOTE | 2019-07-15 16:15 | Consultation ---
DATE OF CONSULTATION: 07/15/2019 CHIEF COMPLAINT: Diarrhea and anemia. HISTORY OF PRESENT ILLNESS: Most of history per chart. The patient is known to me from last admission. I have seen the patient on last admission for GI bleeding and also dysphagia, that I placed G-tube for her. She was apparently transferred to a [facility], had fever, and admitted again for rule-out COVID-19 and GI consult was requested for further evaluation of diarrhea. PAST MEDICAL HISTORY: 1. End-stage renal disease, on hemodialysis. 2. Anemia. 3. Dysphagia, status post G-tube placement. 4. Pneumonia. 5. Pancreatic cyst. 6. Hypertension. MEDICATIONS: Please see medication reconciliation list. ALLERGIES: No known drug allergies. SOCIAL HISTORY: There is no recent history of tobacco, alcohol, or IV drug abuse. FAMILY HISTORY: Noncontributory. REVIEW OF SYSTEMS: Limited. PHYSICAL EXAMINATION: VITAL SIGNS: Temperature 97.7, pulse 87, respirations 20, and blood pressure 111/66. HEENT: Normocephalic and atraumatic. Sclerae anicteric. NECK: Supple. No evidence of obvious lymphadenopathy. CARDIOVASCULAR: Regular rate and rhythm. Plus S1, S2. LUNGS: Decreased breath sounds bilaterally based on supine exam. ABDOMEN: Soft and nontender. G-tube in place. No rebound. No guarding. No peritoneal sign. EXTREMITIES: No cyanosis, clubbing, or edema. LABORATORY DATA: White count is 10, hemoglobin 9.2, hematocrit 27, and platelets are 260,000. Chem-7, sodium 144, potassium 4.1, BUN is 91, creatinine 4.1. Troponin elevated at 0.254. ASSESSMENT AND PLAN: This is an 89-year-old female with numerous medical problems. From GI standpoint, at this time, concern is about diarrhea. The patient is getting Nepro, which can cause significant diarrhea. Our plan will be to decrease the rate to 35 and add Imodium p.r.n. If the patient continues to have diarrhea on this regimen, we will consider changing the formula. Meanwhile, we are going to send the stool for rule-out C. difficile given recent hospitalization. Jun Mena M.D. DR: ERIKA JOB#: [id number] CC:
--- NOTE | 2019-07-15 17:29 | Consultation ---
History of Present Illness General Date patient seen: Jul 14, 2019 Reason for Hospitalization: Fever Present Illness HPI 89-year-old female with PMH of acute renal failure, s/p right chest wall permacath on HD, dysphasia s/p PEG, multiple pressure wounds, HTN, h/o AMS was recently discharged from this facility for KAREN/rhabdo, unwitnessed fall, was sent to skilled nursing and returned here due to fevers. Patient was admitted for persistent fevers and for sepsis/Covidien 19 rule out. Patient AAO x1, history very limited due to patient mental status which appears to be at baseline. Patient currently denies any RICHTER, CP, S OB, F/C, N/V, abdominal pain or dysuria at this time. ED course: BMP 8000, troponin 0 0.347, patient given for septic work-up and will be admitted for further treatment. PMH: ESRD on HD, dysphagia s/p PEG, multiple pressure wounds, HTN, pancreatic cyst FH: Reviewed and not pertinent SH: No EtOH/tobacco history All: NKDA Allergies: Coded Allergies: No Known Allergies (Unverified , 06/24/19) Medication History Scheduled Furosemide* (Lasix*), 40 MG GT DAILY, (Reported) Gabapentin (Gabapentin), 300 MG GT BID, (Reported) Scheduled PRN Acetaminophen* (Acetaminophen 325MG Tablet*), 650 MG ORAL Q6H PRN for Mild Pain (Pain Scale 1-3), (Reported) Discontinued Medications Furosemide* (Lasix*), 20 MG ORAL TID, (Reported) Discontinued Reason: MD discontinued med Gabapentin* (Gabapentin*), 600 MG ORAL THREE TIMES A DAY, (Reported) Discontinued Reason: MD discontinued med Hydroxyzine HCl (Hydroxyzine HCl), 25 MG ORAL Q6HR PRN for Itching, (Reported) Discontinued Reason: MD discontinued med Oxycodone Hcl/Acetaminophen 10-325 Mg Tablet (Percocet 10-325 Mg Tablet*), 1 TAB ORAL Q6H PRN for For Pain, (Reported) Discontinued Reason: MD discontinued med [Unable To Obtain], (Reported) Discontinued Reason: MD discontinued med Patient History Healthcare decision maker Resuscitation status Full Code Advanced Directive on File Review of Systems Review of Symptoms unable Physical Exam Physical Exam General appearance: lethargic Head: Normocephalic, without obvious abnormality, atraumatic Eyes: conjunctivae/corneas clear. PERRL, EOM's intact. Fundi benign Throat: Lips, mucosa, and tongue normal. Teeth and gums normal Neck: supple, symmetrical, trachea midline, no adenopathy, thyroid: not enlarged, symmetric, no tenderness/mass/nodules, no carotid bruit and no JVD Lungs: clear to auscultation bilaterally Heart: regular rate and rhythm, S1, S2 normal, no murmur, click, rub or gallop Abdomen: soft, non-tender. Bowel sounds normal. No masses, no organomegaly Extremities: extremities normal, atraumatic, no cyanosis or edema Pulses: 2+ and symmetric Skin: Skin color, texture, turgor normal. No rashes or lesions Neurologic: non focal, lethargic pupils reactive symetric Last 24 Hour Vital Signs Date Time Temp Pulse Resp B/P (MAP) Pulse Ox O2 Delivery O2 Flow Rate FiO2 07/15/19 15:30 97.6 118 20 107/56 (73) 97 07/15/19 12:00 98 07/15/19 12:00 98.0 76 19 121/78 (92) 98 07/15/19 09:00 Nasal Cannula 2.0 Nasal Cannula 2.0 07/15/19 08:00 97.7 87 19 111/66 (81) 100 98 07/15/19 08:00 87 07/15/19 08:00 2.0 07/15/19 04:00 2.0 07/15/19 04:00 97.9 98 19 129/73 (91) 100 98 07/15/19 03:25 96 07/15/19 00:00 2.0 07/15/19 00:00 Nasal Cannula 2.0 Nasal Cannula 2.0 07/15/19 00:00 97.8 89 15 115/64 (81) 95 89 07/14/19 23:35 93 07/14/19 21:00 Nasal Cannula 2.0 07/14/19 21:00 Nasal Cannula 2.0 07/14/19 20:00 2.0 07/14/19 19:45 81 07/14/19 17:34 Room Air 2.0 Intake and Output 07/14/19 07/15/19 19:00 07:00 Intake Total 405 ml 720 ml Balance 405 ml 720 ml Intake Free Water 150 ml IV Total 385 ml 220 ml Tube Feeding 20 ml 350 ml # Voids 1 # Bowel Movements 1 Laboratory Tests Test 07/14/19 18:50 07/14/19 21:50 07/15/19 05:00 07/15/19 12:15 Troponin I 0.296 ng/mL (0.000-0.056) 0.254 ng/mL (0.000-0.056) White Blood Count 10.5 K/UL (4.8-10.8) Red Blood Count 3.01 M/UL (4.20-5.40) L Hemoglobin 9.3 G/DL (12.0-16.0) L Hematocrit 27.8 % (37.0-47.0) L Mean Corpuscular Volume 92 FL (80-99) Mean Corpuscular Hemoglobin 30.8 PG (27.0-31.0) Mean Corpuscular Hemoglobin Concent 33.5 G/DL (32.0-36.0) Red Cell Distribution Width 13.4 % (11.6-14.8) Platelet Count 260 K/UL (150-450) Mean Platelet Volume 7.6 FL (6.5-10.1) Neutrophils (%) (Auto) 71.9 % (45.0-75.0) Lymphocytes (%) (Auto) 14.5 % (20.0-45.0) L Monocytes (%) (Auto) 9.5 % (1.0-10.0) Eosinophils (%) (Auto) 3.3 % (0.0-3.0) H Basophils (%) (Auto) 0.8 % (0.0-2.0) Sodium Level 144 MMOL/L (136-145) Potassium Level 4.1 MMOL/L (3.5-5.1) Chloride Level 104 MMOL/L (98-107) Carbon Dioxide Level 27 MMOL/L (21-32) Anion Gap 13 mmol/L (5-15) Blood Urea Nitrogen 91 mg/dL (7-18) H Creatinine 4.1 MG/DL (0.55-1.30) H Estimat Glomerular Filtration Rate 12.4 mL/min (>60) Glucose Level 151 MG/DL (74-106) H Calcium Level 9.8 MG/DL (8.5-10.1) Pro-B-Type Natriuretic Peptide 6363 pg/mL (0-125) H Random Vancomycin Level 18.5 ug/mL Height (Feet): 5 Height (Inches): 3.00 Weight (Pounds): 119 Medications Current Medications Medications (Trade) Dose Ordered Sig/Joan Route PRN Reason Start Time Stop Time Status Last Admin Dose Admin Acetaminophen (Tylenol) 650 mg Q4H PRN ORAL Mild Pain (Pain Scale 1-3) 07/14/19 14:45 08/13/19 14:44 Albumin Human 100 ml @ 100 mls/hr Q1H IV 07/15/19 16:30 07/15/19 18:29 Atorvastatin Calcium (Lipitor) 10 mg QHS GT 07/14/19 21:00 10/12/19 20:59 07/14/19 20:32 Azithromycin 500 mg/Sodium Chloride 275 ml @ 275 mls/hr DAILY IV 07/15/19 09:00 07/22/19 08:59 07/15/19 09:38 Chlorhexidine Gluconate (Cari-Hex 2%) 1 applic DAILY@2000 TOPIC 07/15/19 20:00 10/13/19 19:59 Dextrose (Dextrose 50%) 25 ml Q30M PRN IV Hypoglycemia 07/14/19 14:45 10/12/19 14:44 Dextrose (Dextrose 50%) 50 ml Q30M PRN IV Hypoglycemia 07/14/19 14:45 10/12/19 14:44 Furosemide (Lasix) 80 mg DAILY IV 07/14/19 16:00 07/17/19 15:59 07/15/19 09:40 Heparin Sodium (Porcine) (Heparin 5000 units/ml) 5,000 units EVERY 12 HOURS SUBQ 07/14/19 21:00 08/28/19 20:59 07/15/19 09:39 Hydralazine HCl (Apresoline) 10 mg Q4H PRN IV For High Blood Pressure 07/14/19 15:30 10/12/19 15:29 Lactobacillus Acidophilus (Culturelle) 1 tab Q12HR GT 07/15/19 12:14 10/13/19 12:13 07/15/19 12:42 Loperamide HCl (Imodium) 2 mg Q6H PRN GT Diarrhea 07/15/19 12:30 08/14/19 12:29 07/15/19 12:42 Morphine Sulfate (Morphine Sulfate) 2 mg Q4H PRN IVP Severe Pain (Pain Scale 7-10) 07/14/19 15:00 07/21/19 14:59 07/15/19 10:33 Ondansetron HCl (Zofran) 4 mg Q6H PRN IVP Nausea & Vomiting 07/14/19 14:45 08/13/19 14:44 Piperacillin Sod/ Tazobactam Sod 2.25 gm/Sodium Chloride 110 ml @ 220 mls/hr Q8HR IVPB 07/14/19 22:00 07/21/19 21:59 07/15/19 14:06 Vancomycin HCl (Vanco rx to dose) 1 ea DAILY PRN MISC Per rx protocol 07/14/19 14:45 08/13/19 14:44 Vancomycin HCl 500 mg/Dextrose 110 ml @ 110 mls/hr ONCE IVPB 07/15/19 18:00 07/15/19 20:00 Objective Narrative CC 35 min Assessment/Plan Problem List: (1) Decubitus skin ulcer ICD Codes: L89.90 - Pressure ulcer of unspecified site, unspecified stage SNOMED: 830591085 (2) Fever ICD Codes: R50.9 - Fever, unspecified SNOMED: 318871239 (3) Rhabdomyolysis ICD Codes: M62.82 - Rhabdomyolysis SNOMED: 273341232 (4) Elevated troponin ICD Codes: R79.89 - Other specified abnormal findings of blood chemistry SNOMED: 728305092, 416899448, 196910425 (5) KAREN (acute kidney injury) ICD Codes: N17.9 - Acute kidney failure, unspecified SNOMED: 7082631, 59929070 (6) Fever ICD Codes: R50.9 - Fever, unspecified SNOMED: 882990200 Qualifiers: Qualified Codes: R50.9 - Fever, unspecified (7) Elevated brain natriuretic peptide (BNP) level ICD Codes: R79.89 - Other specified abnormal findings of blood chemistry SNOMED: 535799630, 670616794 (8) ESRD (end stage renal disease) on dialysis ICD Codes: N18.6 - End stage renal disease; Z99.2 - Dependence on renal dialysis SNOMED: 513494837 (9) ESRD (end stage renal disease) on dialysis ICD Codes: N18.6 - End stage renal disease; Z99.2 - Dependence on renal dialysis SNOMED: 309535652 (10) Pressure ulcer ICD Codes: L89.90 - Pressure ulcer of unspecified site, unspecified stage SNOMED: 653917168 (11) Protein calorie malnutrition ICD Codes: E46 - Unspecified protein-calorie malnutrition SNOMED: 251890854 (12) Dysphagia ICD Codes: R13.10 - Dysphagia, unspecified SNOMED: 01321730, 194974591 Assessment/Plan: Acute encephalopathy, baseline dementia Sepsis Monitor neuro exam for improvement broad spectrum atb rule out covid Delirium precautions [facility] Hospital declaration INPATIENT level of care is warranted for this patient because patient is a 89 year old with who presents with suspicion of . I have a high level of concern because . Patient is at high risk for . Plan of care/treatment include . Patient care is expected to be greater than 2 midnights. OBSERVATION level of care is warranted for this patient. Patient is a 89 year old with who presents with . Patient will be admitted for 1 midnight, but if additional night(s) is/are necessary, patient will be converted to inpatient status for the entire hospitalization Disposition: Once the patient is stable to leave the hospital, I anticipate the patient will likely be discharged to the following environment: Estimated discharge date: I spent 70 minutes on this patient's case, and minutes was dedicated to counseling and/or care coordination. MIPS (Merit-based Incentive Payment System) Applicable CPT: 34983, 09016 CHECK ALL THAT ARE MET: Measure #5 (CHF): All ages. Prescribe JASMYN/ARB upon discharge for patients with left ventricular systolic dysfunction. If not, the reason is clearly documented in the medical chart. Measure #8 (CHF): All ages. Prescribe a beta barbra upon discharge for patients with left ventricular systolic dysfunction. If not, the reason is clearly documented in the medical chart. Measure #47 Advance care plan or surrogate decision maker documented in the medical record. Measure #130 The provider has documented, updated, or reviewed the patients current medication list and has documented it in the patients note. Measure #374 (All): Send report to referring provider. Measure #407(Sepsis due to MSSA bacteremia): Age 18+ Patient treated with a beta-lactam antibiotic (Nafcillin, Oxacillin or Cefazolin) as definitive therapy. MEDICAL COMPLEXITY High complexity medical decision making (need 2/3 categories) Problem - need 4 points Acute/new problem with new plan for workup (4 points, 1 max) Acute/new problem without additional workup (3 points, 1 max) Unstable chronic problem actively being managed (2 point each, 2 max) Stable chronic problem actively being managed (1 point each, 2 max) Self-limited/transient process (constipation, muscle ache, etc) (1 point each , 2 max) Data - need 4 points Reviewed labs/imaging studies (1 points, 2 max) Independent review of imaging (EKG, xrays, etc) (2 points, 2 max) Discussed case with consult/other MD/RN (2 points, 2 max) High Risk - qualify if have one of the following: Severe exacerbation of acute problem, acute mental status change, IV narcotics , monitoring drug levels (vancomycin, INR, tacrolimus etc) Sushil Stevenson MD Jul 15, 2019 17:29
--- NOTE | 2019-07-15 17:31 | Neurology Progress Note ---
Interim History Interim History ROS Limited/Unobtainable: Yes Interim History 89-year-old female with PMH of acute renal failure, s/p right chest wall permacath on HD, dysphasia s/p PEG, multiple pressure wounds, HTN, h/o AMS was recently discharged from this facility for KAREN/rhabdo, unwitnessed fall, was sent to residential and returned here due to fevers. Patient was admitted for persistent fevers and for sepsis/Covidien 19 rule out. Patient AAO x1, history very limited due to patient mental status more alert today, minimally verbl Objective Physical Exam Last Vital Signs Date Time Temp Pulse Resp B/P (MAP) Pulse Ox O2 Delivery O2 Flow Rate FiO2 07/15/19 15:30 97.6 118 20 107/56 (73) 97 07/15/19 09:00 Nasal Cannula 2.0 Nasal Cannula 2.0 Laboratory Tests Test 07/14/19 18:50 07/14/19 21:50 07/15/19 05:00 07/15/19 12:15 Troponin I 0.296 ng/mL (0.000-0.056) 0.254 ng/mL (0.000-0.056) White Blood Count 10.5 K/UL (4.8-10.8) Red Blood Count 3.01 M/UL (4.20-5.40) L Hemoglobin 9.3 G/DL (12.0-16.0) L Hematocrit 27.8 % (37.0-47.0) L Mean Corpuscular Volume 92 FL (80-99) Mean Corpuscular Hemoglobin 30.8 PG (27.0-31.0) Mean Corpuscular Hemoglobin Concent 33.5 G/DL (32.0-36.0) Red Cell Distribution Width 13.4 % (11.6-14.8) Platelet Count 260 K/UL (150-450) Mean Platelet Volume 7.6 FL (6.5-10.1) Neutrophils (%) (Auto) 71.9 % (45.0-75.0) Lymphocytes (%) (Auto) 14.5 % (20.0-45.0) L Monocytes (%) (Auto) 9.5 % (1.0-10.0) Eosinophils (%) (Auto) 3.3 % (0.0-3.0) H Basophils (%) (Auto) 0.8 % (0.0-2.0) Sodium Level 144 MMOL/L (136-145) Potassium Level 4.1 MMOL/L (3.5-5.1) Chloride Level 104 MMOL/L (98-107) Carbon Dioxide Level 27 MMOL/L (21-32) Anion Gap 13 mmol/L (5-15) Blood Urea Nitrogen 91 mg/dL (7-18) H Creatinine 4.1 MG/DL (0.55-1.30) H Estimat Glomerular Filtration Rate 12.4 mL/min (>60) Glucose Level 151 MG/DL (74-106) H Calcium Level 9.8 MG/DL (8.5-10.1) Pro-B-Type Natriuretic Peptide 6363 pg/mL (0-125) H Random Vancomycin Level 18.5 ug/mL Head: normocophalic Neck: no rigidity EENT: benign Neurologic Exam Mental Status: awake Cranial Nerves III, IV, : PERRLA Objective Wakes up, tracks with eyes, tell me her name, withdraws all 4 Impression/Recommendations Problems: (1) Decubitus skin ulcer (2) Fever (3) Rhabdomyolysis (4) Elevated troponin (5) KAREN (acute kidney injury) (6) Fever (7) Elevated brain natriuretic peptide (BNP) level (8) ESRD (end stage renal disease) on dialysis (9) ESRD (end stage renal disease) on dialysis (10) Pressure ulcer (11) Protein calorie malnutrition (12) Dysphagia Status: stable Diagnostic Impression Acute encephalopathy, baseline dementia Sepsis Monitor neuro exam for improvement broad spectrum atb rule out covid Delirium precautions Sushil Stevenson MD Jul 15, 2019 17:31
--- NOTE | 2019-07-15 17:48 | NUR ---
NURSE NOTES: Dr. Ernst notified regarding sinus tachycardia with 124/min. Dr. Ernst is present to unit and reviewed the patient's rhythm strips. Made Dr. Ernst aware of episode of A-fib last night. No new orders received.
--- NOTE | 2019-07-15 17:50 | General Progress Note ---
Assessment/Plan Status: stable Assessment/Plan: 89-year-old female with PMH of acute renal failure, s/p right chest wall permacath on HD, dysphasia s/p PEG, multiple pressure wounds, HTN, h/o AMS was recently discharged from this facility for KAREN/rhabdo, unwitnessed fall, was sent to skilled nursing and returned here due to fevers. Patient was admitted for persistent fevers and for sepsis/COVID 19 rule out. ED course: BMP 8000, troponin 0 0.347, patient given for septic work-up and will be admitted for further treatment. #Fevers -continue inpatient level of care -r/o infectious causes, r/o COVID -follow up cultures -COVID-19 test performed in ED -Droplet precautions -Azithromycin Zosyn given in the ED -cont. Azithro, Zosyn and Vanco #ESRD on HD -s/p permcath -HD per renal #HTN #elevated troponin #BNP elevated #Sinus tachycardia -ASA, statin -Continue Lasix 80 mg IV -Cardio following -hydralazine PRN for SBP >160 #Hematuria #Possible Urinary retention. #Possible neurogenic bladder. -UA w/ evidence of RBCs, 4+ blood -Urology recs appreciated #Dysphagia #Diarrhea -s/p PEG -cont tube feeds with reduced rate + Imodium -Dietary and GI consulted #Pressure wounds -Wound care consulted, recs appreciated DVT ppx - heparin sc Time spent on encounter: 35 mins, >50% on counseling, coordination of care. Time of note doesn't reflect time of encounter. Subjective Date patient seen: Jul 15, 2019 Time patient seen: 14:14 ROS Limited/Unobtainable: Yes Allergies: Coded Allergies: No Known Allergies (Unverified , 06/24/19) Subjective Follow up for recurrent sepsis, rule out COVID19, ESRD. Having significant diarrhea today. Objective Last 24 Hour Vital Signs Date Time Temp Pulse Resp B/P (MAP) Pulse Ox O2 Delivery O2 Flow Rate FiO2 07/15/19 17:25 97.6 123 20 124/67 (86) 97 07/15/19 16:00 123 07/15/19 15:30 97.6 118 20 107/56 (73) 97 07/15/19 12:00 98 07/15/19 12:00 98.0 76 19 121/78 (92) 98 07/15/19 09:00 Nasal Cannula 2.0 Nasal Cannula 2.0 07/15/19 08:00 97.7 87 19 111/66 (81) 100 98 07/15/19 08:00 87 07/15/19 08:00 2.0 07/15/19 04:00 2.0 07/15/19 04:00 97.9 98 19 129/73 (91) 100 98 07/15/19 03:25 96 07/15/19 00:00 2.0 07/15/19 00:00 Nasal Cannula 2.0 Nasal Cannula 2.0 07/15/19 00:00 97.8 89 15 115/64 (81) 95 89 07/14/19 23:35 93 07/14/19 21:00 Nasal Cannula 2.0 07/14/19 21:00 Nasal Cannula 2.0 07/14/19 20:00 2.0 07/14/19 19:45 81 Intake and Output 07/14/19 07/15/19 19:00 07:00 Intake Total 405 ml 720 ml Balance 405 ml 720 ml Intake Free Water 150 ml IV Total 385 ml 220 ml Tube Feeding 20 ml 350 ml # Voids 1 # Bowel Movements 1 Laboratory Tests 07/14/19 18:50: Troponin I 0.296H 07/14/19 21:50: Troponin I 0.254H 07/15/19 05:00: White Blood Count 10.5, Red Blood Count 3.01L, Hemoglobin 9.3L, Hematocrit 27.8L , Mean Corpuscular Volume 92, Mean Corpuscular Hemoglobin 30.8, Mean Corpuscular Hemoglobin Concent 33.5, Red Cell Distribution Width 13.4, Platelet Count 260, Mean Platelet Volume 7.6, Neutrophils (%) (Auto) 71.9, Lymphocytes (% ) (Auto) 14.5L, Monocytes (%) (Auto) 9.5, Eosinophils (%) (Auto) 3.3H, Basophils (%) (Auto) 0.8, Sodium Level 144, Potassium Level 4.1, Chloride Level 104, Carbon Dioxide Level 27, Anion Gap 13, Blood Urea Nitrogen 91H, Creatinine 4.1H, Estimat Glomerular Filtration Rate 12.4, Glucose Level 151H, Calcium Level 9.8, Pro-B-Type Natriuretic Peptide 6363H 07/15/19 12:15: Random Vancomycin Level 18.5 Height (Feet): 5 Height (Inches): 3.00 Weight (Pounds): 119 General Appearance: alert, confused Neck: supple Cardiovascular: normal rate, regular rhythm Respiratory/Chest: lungs clear, normal breath sounds Abdomen: non tender, soft Oumar Foy MD Jul 15, 2019 17:50
[2019-07-15] MEDS ORDERED: Vancomycin 500mg/D5W 100ml IVPB SCH ×2 (18:00)
--- NOTE | 2019-07-15 18:41 | NUR ---
NURSE NOTES: Made Laya, pharmacist aware regarding vancomycin not given at 6pm as scheduled due to dialysis. Will endorse to next shift RN about Vanco to be given after dialysis done.
--- NOTE | 2019-07-15 19:15 | NUR ---
HAND-OFF: Report given to Al PURVIS. Pt remains stable.
--- NOTE | 2019-07-15 19:16 | NUR ---
NURSE NOTES: Received patient from HYUN Aldrich. Patient is aaox1, opens eyes, confused, occasionally responds verbally, vss, and with no acute distress. Patient is cooperative, clean, and on air sampling and monitoring. Patient is on 2L NC, G-Tube feeding is Nepro at 35mL/ hr. Patient has permacath on her right upper chest. Dressing for permacath changed 07/12/19. IV site is paten with no infection. IV on right forearm 20g and left forearm 22g. Skin issues noted with pictures. Dialysis nurse with patient and is currently on dialysis with a goal of 2kg to remove. Patient is tolerating treatment well. Bed at its lowest position; call light in reach, and x3 bed rails are up. Will continue to monitor.
--- NOTE | 2019-07-15 19:56 | Infectious Diseases Prog Note ---
Assessment/Plan Assessment/Plan Full consult noted dictated: A) 1) ? pna, ? covid-19 - low suspicion 2) sepsis, fevers, tachycardia 3) multiple wounds - ? right hip wound most pronounced P) 1) zoysn and vancomycin, azithromycin 2) check cultures, labs and chest x-ray 3) covid-19 testing 4) wound care per surgery 5) thank you Subjective Allergies: Coded Allergies: No Known Allergies (Unverified , 06/24/19) Objective Vital Signs Last 24 Hour Vital Signs Date Time Temp Pulse Resp B/P (MAP) Pulse Ox O2 Delivery O2 Flow Rate FiO2 07/15/19 17:25 97.6 123 20 124/67 (86) 97 07/15/19 16:00 123 07/15/19 15:30 97.6 118 20 107/56 (73) 97 07/15/19 12:00 98 07/15/19 12:00 98.0 76 19 121/78 (92) 98 07/15/19 09:00 Nasal Cannula 2.0 Nasal Cannula 2.0 07/15/19 08:00 97.7 87 19 111/66 (81) 100 98 07/15/19 08:00 87 07/15/19 08:00 2.0 07/15/19 04:00 2.0 07/15/19 04:00 97.9 98 19 129/73 (91) 100 98 07/15/19 03:25 96 07/15/19 00:00 2.0 07/15/19 00:00 Nasal Cannula 2.0 Nasal Cannula 2.0 07/15/19 00:00 97.8 89 15 115/64 (81) 95 89 07/14/19 23:35 93 07/14/19 21:00 Nasal Cannula 2.0 07/14/19 21:00 Nasal Cannula 2.0 07/14/19 20:00 2.0 Height (Feet): 5 Height (Inches): 3.00 Weight (Pounds): 119 Microbiology Date/Time Source Procedure Growth Status 07/14/19 12:30 Nasal Nares - Final Complete 07/14/19 12:30 Nasal Nares - Final Complete 07/14/19 12:00 Rectum Received Laboratory Tests Test 07/14/19 21:50 07/15/19 05:00 07/15/19 12:15 Troponin I 0.254 ng/mL (0.000-0.056) White Blood Count 10.5 K/UL (4.8-10.8) Red Blood Count 3.01 M/UL (4.20-5.40) L Hemoglobin 9.3 G/DL (12.0-16.0) L Hematocrit 27.8 % (37.0-47.0) L Mean Corpuscular Volume 92 FL (80-99) Mean Corpuscular Hemoglobin 30.8 PG (27.0-31.0) Mean Corpuscular Hemoglobin Concent 33.5 G/DL (32.0-36.0) Red Cell Distribution Width 13.4 % (11.6-14.8) Platelet Count 260 K/UL (150-450) Mean Platelet Volume 7.6 FL (6.5-10.1) Neutrophils (%) (Auto) 71.9 % (45.0-75.0) Lymphocytes (%) (Auto) 14.5 % (20.0-45.0) L Monocytes (%) (Auto) 9.5 % (1.0-10.0) Eosinophils (%) (Auto) 3.3 % (0.0-3.0) H Basophils (%) (Auto) 0.8 % (0.0-2.0) Sodium Level 144 MMOL/L (136-145) Potassium Level 4.1 MMOL/L (3.5-5.1) Chloride Level 104 MMOL/L (98-107) Carbon Dioxide Level 27 MMOL/L (21-32) Anion Gap 13 mmol/L (5-15) Blood Urea Nitrogen 91 mg/dL (7-18) H Creatinine 4.1 MG/DL (0.55-1.30) H Estimat Glomerular Filtration Rate 12.4 mL/min (>60) Glucose Level 151 MG/DL (74-106) H Calcium Level 9.8 MG/DL (8.5-10.1) Pro-B-Type Natriuretic Peptide 6363 pg/mL (0-125) H Random Vancomycin Level 18.5 ug/mL Current Medications Medications (Trade) Dose Ordered Sig/Joan Route PRN Reason Start Time Stop Time Status Last Admin Dose Admin Acetaminophen (Tylenol) 650 mg Q4H PRN ORAL Mild Pain (Pain Scale 1-3) 07/14/19 14:45 08/13/19 14:44 Atorvastatin Calcium (Lipitor) 10 mg QHS GT 07/14/19 21:00 10/12/19 20:59 07/14/19 20:32 Azithromycin 500 mg/Sodium Chloride 275 ml @ 275 mls/hr DAILY IV 07/15/19 09:00 07/22/19 08:59 07/15/19 09:38 Chlorhexidine Gluconate (Cari-Hex 2%) 1 applic DAILY@2000 TOPIC 07/15/19 20:00 10/13/19 19:59 Dextrose (Dextrose 50%) 25 ml Q30M PRN IV Hypoglycemia 07/14/19 14:45 10/12/19 14:44 Dextrose (Dextrose 50%) 50 ml Q30M PRN IV Hypoglycemia 07/14/19 14:45 10/12/19 14:44 Furosemide (Lasix) 80 mg DAILY IV 07/14/19 16:00 07/17/19 15:59 07/15/19 09:40 Heparin Sodium (Porcine) (Heparin 5000 units/ml) 5,000 units EVERY 12 HOURS SUBQ 07/14/19 21:00 08/28/19 20:59 07/15/19 09:39 Hydralazine HCl (Apresoline) 10 mg Q4H PRN IV For High Blood Pressure 07/14/19 15:30 10/12/19 15:29 Lactobacillus Acidophilus (Culturelle) 1 tab Q12HR GT 07/15/19 12:14 10/13/19 12:13 07/15/19 12:42 Loperamide HCl (Imodium) 2 mg Q6H PRN GT Diarrhea 07/15/19 12:30 08/14/19 12:29 07/15/19 12:42 Morphine Sulfate (Morphine Sulfate) 2 mg Q4H PRN IVP Severe Pain (Pain Scale 7-10) 07/14/19 15:00 07/21/19 14:59 07/15/19 10:33 Ondansetron HCl (Zofran) 4 mg Q6H PRN IVP Nausea & Vomiting 07/14/19 14:45 08/13/19 14:44 Piperacillin Sod/ Tazobactam Sod 2.25 gm/Sodium Chloride 110 ml @ 220 mls/hr Q8HR IVPB 07/14/19 22:00 07/21/19 21:59 07/15/19 14:06 Vancomycin HCl (Vanco rx to dose) 1 ea DAILY PRN MISC Per rx protocol 07/14/19 14:45 08/13/19 14:44 Vancomycin HCl 500 mg/Dextrose 110 ml @ 110 mls/hr ONCE IVPB 07/15/19 18:00 07/15/19 20:00 Ana Rosado MD Jul 15, 2019 19:56
[2019-07-15] MEDS ORDERED: ACETAMINOPHEN325 M1 ORAL (20:32)
[2019-07-15] MEDS ORDERED: GABAPENTIN300 MG/61 GT (20:32)
[2019-07-15] MEDS ORDERED: FUROSEMIDE40 MG GT (20:32)
[2019-07-15] MEDS: Dyna-Hex 2% Top Sol 2oz TOPIC SCH (20:58)
[2019-07-15] MEDS ORDERED: Docusate 100mg/10ml Liq GT SCH (21:00)
--- NOTE | 2019-07-15 21:00 | Consultation ---
DATE OF CONSULTATION: 07/15/2019 ADDENDUM The patient also had a positive urinalysis with positive nitrite, 2+ leukocyte esterase. Certainly, the patient could have urinary tract infection also. Again, with regards to COVID-19, I have low suspicion. More likely, if the patient has pneumonia, fevers, most likely aspiration, healthcare pneumonia in addition to UTI and fevers, rule out right hip wound infection, line infection. Antibiotics, vanco, Zosyn, azithromycin to cover multiple possible infections and sepsis. Ana Rosado M.D. DR: FIFI JOB#: [id number] CC:
--- NOTE | 2019-07-15 21:15 | NUR ---
NURSE NOTES: Dialysis completed with 2kg taken out per dialysis nurse. Post dialysis patient is observed with a continuous non productive cough, HR of 125, O2 saturation of 99% dry lips, and fever of 101.1 axiliary. Tylenol PRN given. Will give MD a call after reassessment of fever.
--- NOTE | 2019-07-15 22:16 | NUR ---
NURSE NOTES: Left a message with Narcisa Wetzel for patient's lethargy and fever. Waiting for all back. Patient is resting, still lethargic and no longer coughing. Will continue to monitor.
--- NOTE | 2019-07-15 22:30 | NUR ---
NURSE NOTES: Dr. Brasher called back and was notified for patients condition. Observation of blood pressure with no new orders per MD request.
[2019-07-16] VITALS: BP 111/74
--- NOTE | 2019-07-16 01:58 | NUR ---
NURSE NOTES: Nurse operations and maintenance supervisor advised to use wound care mattress provided for patient.
[2019-07-16 04:00] VITALS: BP 110/67
--- NOTE | 2019-07-16 04:00 | NUR ---
NURSE NOTES: Overlay mattress put on bed. Patient in bed with out overlay is 139lbs and with overlay is 154lbs. 15lbs is to be subtracted for weekly weight until bed can be zeroed with overlay mattress.
--- NOTE | 2019-07-16 04:15 | Consultation ---
DATE OF CONSULTATION: 07/15/2019 INFECTIOUS DISEASES CONSULTATION/PROGRESS NOTE CONSULTING PHYSICIAN: Ana Rosado M.D. ATTENDING PHYSICIAN: Meera Frederick M.D. REFERRING PHYSICIAN: Oumar Capellan M.D. The patient was seen with recent admission. CLINICAL UPDATE: This is an 89-year-old female who was seen on previous admission, where the patient was treated for Streptococcus bacteremia, pneumonia, sepsis, leukocytosis, and fevers. The patient had full treatment course with multiple antibiotics. The patient was sent to the ECF. The patient now presents to [facility] with fevers in the ECF. The question is whether the patient had pneumonia. The patient was started on treatment for pneumonia and sepsis. Infectious Disease consultation was requested. The patient is currently on vancomycin, Zosyn, and azithromycin. The patient is also being ruled out for COVID-19 infection and is in isolation. REVIEW OF SYSTEMS: GENERAL: Main issue, the patient is getting hemodialysis by [facility], in isolation is responsive. She has multiple wounds. She has generalized fatigue and weakness. She did have low-grade fevers in the hospital. She had a temperature looks like 100.8. Now, the patient is setting per the records. Currently, no fevers or night sweats. HEAD AND NECK: No headache or neck pain. CARDIAC: No chest pain or pressures. GASTROINTESTINAL: No nausea, vomiting, or diarrhea. GENITOURINARY: No Sanchez. Hemodialysis. PULMONARY: Mild cough and congestion, but no significant secretions. No significant shortness of breath. SKIN: No rash or itching. Multiple wounds were reviewed. EXTREMITIES: No pain. NEUROLOGIC: Denies any weakness. No seizure. PHYSICAL EXAMINATION: VITAL SIGNS: Temperature is 97.6, pulse rate 123, respiratory rate 20, blood pressure 124/67, and saturation 97% on 2 liters. T-max 99.9 here at [facility], looks like per records as high as 100.8. GENERAL: Actually responsive, in no acute distress. HEAD AND NECK: Oral exam, no thrush. Eye exam, no icterus. Normocephalic. Neck is supple. No JVD. HEART: Regular. No gallop or murmur. Tachycardic. ABDOMEN: Soft. Positive bowel sounds. Nontender. LUNGS: Bilateral rhonchi. Possible crackles and rales. SKIN: No rash. MUSCULOSKELETAL: No effusion. Legs are without cellulitis. PERIPHERAL VASCULAR: No cyanosis or gangrene. GENITOURINARY: She has multiple issues. She has no Sanchez. Hemodialysis. LINE SITES: Without phlebitis. NEUROLOGIC: Intact and nonfocal. Wounds all reviewed, most pronounced seems to be right hip wound, which has some areas of necrosis and slough, possibly infected. LABORATORY DATA: White count 10.5 and hemoglobin 9.3. Creatinine 4.1. Troponin elevated. Cultures are pending. Influenza screen is negative. COVID-19 virus testing is pending. IMAGING STUDIES: Chest x-ray shows mild interstitial edema increased, but not as severe as prior. ASSESSMENT AND PLAN: 1. The patient has fevers with possible pneumonia, possible sepsis, possible COVID-19 virus infection. However, I think I have low suspicion for COVID-19 virus infection. The patient will be treated for pneumonia and sepsis with vancomycin, Zosyn, and azithromycin. This will cover aspiration and healthcare-acquired pneumonia, community-acquired pneumonia, and also sepsis. Rule out right hip wound infection. Rule out line infection for hemodialysis line. Continue vancomycin, Zosyn, and azithromycin. Check cultures, laboratories, and chest x-ray. Await COVID-19 virus infection. Again, treating for pneumonia and sepsis for now. 2. The patient has end-stage renal disease, on hemodialysis and PermCath. 3. Skin care protocol. 4. Anemia. 5. The patient has history of dysphagia, on G-tube. 6. Aspiration risk. 7. Hypertension. 8. Altered mental status. 9. History of Strep viridans bacteremia. 10. Hypertension, treatment per primary care team. 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 12. History of non-STEMI and CAD. 13. History of rhabdomyolysis. 14. History of acute renal failure, on dialysis. 15. Coronary artery disease. 16. No known drug allergies. 17. Social history negative. 18. Family history noncontributory. 19. MAR was noted. 20. Case discussed with RN. 21. Isolation in the acute care. Ana Rosado M.D. DR: TRINIDAD JOB#: [id number] CC:
--- NOTE | 2019-07-16 04:35 | NUR ---
NURSE NOTES: Straight catheter attempted at midnight and 0400 with no urine although when cleaning the patient there were possible signs of scant amounts of urine on the ana. Dr. Brasher called earlier asking if he needs to cancel urine collection due to patient being passably anuric. Will endorse to AM shift.
[2019-07-16 05:47] LABS: ALANINE AMINOTRANSFERASE 63 U/L (12-78); ALBUMIN 3.7 G/DL (3.4-5.0); ALBUMIN/GLOBULIN RATIO 1.3 (1.0-2.7); ALKALINE PHOSPHATASE 219 U/L (46-116); ANION GAP 11 mmol/L (5-15); ASPARTATE AMINO TRANSFERASE 88 U/L (15-37); BILIRUBIN,TOTAL 0.6 MG/DL (0.2-1.0); BLOOD UREA NITROGEN 44 mg/dL (7-18); CALCIUM 9.8 MG/DL (8.5-10.1); CARBON DIOXIDE 27 MMOL/L (21-32); CHLORIDE 103 MMOL/L (98-107); CREATININE 2.8 MG/DL (0.55-1.30); FERRITIN 1473 NG/ML (8-388); PHOSPHORUS 2.7 MG/DL (2.5-4.9); POTASSIUM 3.6 MMOL/L (3.5-5.1); SODIUM 141 MMOL/L (136-145)
[2019-07-16 05:48] LABS: HEMATOCRIT 24.5 % (37.0-47.0); HEMOGLOBIN 8.4 G/DL (12.0-16.0); MEAN CORPUSCULAR VOLUME 92 FL (80-99); PLATELET COUNT 240 K/UL (150-450); RED BLOOD COUNT 2.66 M/UL (4.20-5.40)
[2019-07-16 05:56] LABS: % IRON SATURATION 10 % (15-50); IRON 10 ug/dL (50-175); TOTAL IRON BINDING CAPACITY 99 ug/dL (250-450)
[2019-07-16] MEDS: Piperacillin/Tazobactam 2.25 GM in NS 110 ML IVPB SCH ×3 (05:59→21:49)
[2019-07-16 06:03] LABS: WHITE BLOOD COUNT 23.5 K/UL (4.8-10.8)
--- NOTE | 2019-07-16 06:26 | NUR ---
NURSE NOTES: Left a message with Dr. Rosado to report WBC elevation of 23.5. Charge nurse notified. Critical value intervention entered. Waiting for MD call back. Will endorse to AM shift if no call back received.
--- NOTE | 2019-07-16 07:00 | NUR ---
NURSE NOTES: received patient report from hannah anderson. patient is on bed awake. not in acute distress. on 2 Li NC. SR on the monitor. on Gtube running at prescribed rate. wound care per order. droplet precaution observed, r/o covid-, specimen collected 07/10. will follow plan of care.
--- NOTE | 2019-07-16 07:05 | NUR ---
HAND-OFF: Report given to HYUN Matute.
[2019-07-16 08:00] VITALS: BP 115/68
[2019-07-16] MEDS: Lactobacillus-GG tablet GT SCH ×2 (08:16→21:48)
[2019-07-16] MEDS: Azithromycin 500 MG in NS 275 ML IV SCH (08:16)
[2019-07-16] MEDS: Heparin 5000 units/ml inj SUBQ SCH ×2 (08:23→21:49)
--- NOTE | 2019-07-16 08:48 | General Progress Note ---
Assessment/Plan Status: stable Assessment/Plan: 1. End-stage renal disease, on hemodialysis. 2. Anemia. 3. Dysphagia, status post G-tube placement. 4. Pneumonia. 5. Pancreatic cyst. 6. Hypertension. 7. Diarrhea 8. Leukocytosis ? C.diff on oral vanco will dc imodium GTF abx per ID HD per nephrology repeal labs in am Subjective Allergies: Coded Allergies: No Known Allergies (Unverified , 06/24/19) Objective Last 24 Hour Vital Signs Date Time Temp Pulse Resp B/P (MAP) Pulse Ox O2 Delivery O2 Flow Rate FiO2 07/16/19 08:00 99.9 102 21 115/68 (84) 100 07/16/19 04:00 98.6 102 19 110/67 (81) 100 07/16/19 04:00 103 07/16/19 00:00 120 07/16/19 00:00 98.4 120 19 111/74 (86) 100 07/15/19 21:47 100.0 07/15/19 21:00 101.1 125 21 105/72 (83) 99 07/15/19 20:00 98.0 138 21 122/50 (74) 98 07/15/19 20:00 Nasal Cannula 2.0 Nasal Cannula 2.0 07/15/19 19:02 127 07/15/19 17:25 97.6 123 20 124/67 (86) 97 07/15/19 16:00 123 07/15/19 15:30 97.6 118 20 107/56 (73) 97 07/15/19 12:00 98 07/15/19 12:00 98.0 76 19 121/78 (92) 98 07/15/19 09:00 Nasal Cannula 2.0 Nasal Cannula 2.0 Intake and Output 07/15/19 07/16/19 19:00 07:00 Intake Total 776 ml 388.6667 ml Output Total 2000 ml Balance 776 ml -1611.3333 ml IV Total 385 ml 3.6667 ml Tube Feeding 391 ml 385 ml Output Hemodialysis UF 2000 ml # Voids 4 # Bowel Movements 4 101 Laboratory Tests 07/15/19 12:15: Random Vancomycin Level 18.5 07/16/19 04:30: White Blood Count 23.5#*H, Red Blood Count 2.66L, Hemoglobin 8.4L, Hematocrit 24.5L, Mean Corpuscular Volume 92, Mean Corpuscular Hemoglobin 31.6H, Mean Corpuscular Hemoglobin Concent 34.4, Red Cell Distribution Width 14.0, Platelet Count 240, Mean Platelet Volume 8.4, Neutrophils (%) (Auto) , Lymphocytes (%) ( Auto) , Monocytes (%) (Auto) , Eosinophils (%) (Auto) , Basophils (%) (Auto) , Differential Total Cells Counted 100, Neutrophils % (Manual) 97H, Lymphocytes % (Manual) 2L, Monocytes % (Manual) 1, Eosinophils % (Manual) 0, Basophils % ( Manual) 0, Band Neutrophils 0, Platelet Estimate Adequate, Platelet Morphology Normal, Hypochromasia 2+, Anisocytosis 1+, Spherocytes 1+, Sodium Level 141, Potassium Level 3.6, Chloride Level 103, Carbon Dioxide Level 27, Anion Gap 11, Blood Urea Nitrogen 44H, Creatinine 2.8H, Estimat Glomerular Filtration Rate 19.3, Glucose Level 141H, Calcium Level 9.8, Calcium (Send out) [Pending], Phosphorus Level 2.7, Magnesium Level 2.1, Iron Level 10L, Total Iron Binding Capacity 99L, Percent Iron Saturation 10L, Unsaturated Iron Binding 89L, Ferritin 1473H, Total Bilirubin 0.6, Aspartate Amino Transf (AST/SGOT) 88H, Alanine Aminotransferase (ALT/SGPT) 63, Alkaline Phosphatase 219H, Total Protein 6.6, Albumin 3.7, Globulin 2.9, Albumin/Globulin Ratio 1.3, Vitamin D 25 -Hydroxy [Pending], 25-Hydroxy Vitamin D2 [Pending], 25-Hydroxy Vitamin D3 [ Pending], Parathyroid Hormone (Intact) [Pending] Height (Feet): 5 Height (Inches): 3.00 Weight (Pounds): 139 General Appearance: lethargic EENT: normal ENT inspection Neck: supple Cardiovascular: normal rate Respiratory/Chest: decreased breath sounds Abdomen: normal bowel sounds, non tender, soft Extremities: non-tender Jun Mena MD Jul 16, 2019 08:48
--- NOTE | 2019-07-16 09:33 | NUR ---
RADIOLOGY DEPT, CHEST X-RAY DONE.-P.DYE
--- NOTE | 2019-07-16 09:45 | NUR ---
NURSE NOTES: per imelda of lab, patient is negative for c-diff.will endorse accordingly.
--- NOTE | 2019-07-16 10:33 | Nephrology Progress Note ---
Assessment/Plan Plan #Acute renal failure recent started on HD in 06/2018- #Sepsis #Dementia #HTN #elevated troponin #Dysphagia s/p PEG #urinary retention - next HD tomorrow - lasix 80 IV daily - cardiology eval - monitor UOP - urology eval - continue antibiotics- vanco, zosyn and azithro - follow blood cx - check iron panel, ferritin-> ferritin supersaturated - start epogen 4K TIW - check PTH, vitamin D pending - monitor BMP, mag and phos daily for now Subjective ROS Limited/Unobtainable: Yes Subjective s/p HD yesterday with 2L UF transiently with AMS after HD now back to baseline BP stable breathing stable on NC Objective Objective Last 24 Hour Vital Signs Date Time Temp Pulse Resp B/P (MAP) Pulse Ox O2 Delivery O2 Flow Rate FiO2 07/16/19 09:00 Nasal Cannula 2.0 Nasal Cannula 2.0 07/16/19 08:00 99.9 102 21 115/68 (84) 100 07/16/19 04:00 98.6 102 19 110/67 (81) 100 07/16/19 04:00 103 07/16/19 00:00 120 07/16/19 00:00 98.4 120 19 111/74 (86) 100 07/15/19 21:47 100.0 07/15/19 21:00 101.1 125 21 105/72 (83) 99 07/15/19 20:00 98.0 138 21 122/50 (74) 98 07/15/19 20:00 Nasal Cannula 2.0 Nasal Cannula 2.0 07/15/19 19:02 127 07/15/19 17:25 97.6 123 20 124/67 (86) 97 07/15/19 16:00 123 07/15/19 15:30 97.6 118 20 107/56 (73) 97 07/15/19 12:00 98 07/15/19 12:00 98.0 76 19 121/78 (92) 98 Intake and Output 07/15/19 07/16/19 19:00 07:00 Intake Total 776 ml 388.6667 ml Output Total 2000 ml Balance 776 ml -1611.3333 ml IV Total 385 ml 3.6667 ml Tube Feeding 391 ml 385 ml Output Hemodialysis UF 2000 ml # Voids 4 # Bowel Movements 4 101 Laboratory Tests 07/15/19 12:15: Random Vancomycin Level 18.5 07/16/19 04:30: White Blood Count 23.5#*H, Red Blood Count 2.66L, Hemoglobin 8.4L, Hematocrit 24.5L, Mean Corpuscular Volume 92, Mean Corpuscular Hemoglobin 31.6H, Mean Corpuscular Hemoglobin Concent 34.4, Red Cell Distribution Width 14.0, Platelet Count 240, Mean Platelet Volume 8.4, Neutrophils (%) (Auto) , Lymphocytes (%) ( Auto) , Monocytes (%) (Auto) , Eosinophils (%) (Auto) , Basophils (%) (Auto) , Differential Total Cells Counted 100, Neutrophils % (Manual) 97H, Lymphocytes % (Manual) 2L, Monocytes % (Manual) 1, Eosinophils % (Manual) 0, Basophils % ( Manual) 0, Band Neutrophils 0, Platelet Estimate Adequate, Platelet Morphology Normal, Hypochromasia 2+, Anisocytosis 1+, Spherocytes 1+, Sodium Level 141, Potassium Level 3.6, Chloride Level 103, Carbon Dioxide Level 27, Anion Gap 11, Blood Urea Nitrogen 44H, Creatinine 2.8H, Estimat Glomerular Filtration Rate 19.3, Glucose Level 141H, Calcium Level 9.8, Calcium (Send out) [Pending], Phosphorus Level 2.7, Magnesium Level 2.1, Iron Level 10L, Total Iron Binding Capacity 99L, Percent Iron Saturation 10L, Unsaturated Iron Binding 89L, Ferritin 1473H, Total Bilirubin 0.6, Aspartate Amino Transf (AST/SGOT) 88H, Alanine Aminotransferase (ALT/SGPT) 63, Alkaline Phosphatase 219H, Troponin I 0.223H, Total Protein 6.6, Albumin 3.7, Globulin 2.9, Albumin/Globulin Ratio 1.3 , Vitamin D 25-Hydroxy [Pending], 25-Hydroxy Vitamin D2 [Pending], 25-Hydroxy Vitamin D3 [Pending], Parathyroid Hormone (Intact) [Pending] Height (Feet): 5 Height (Inches): 3.00 Weight (Pounds): 139 Objective General: NAD, A&O x 1, self only HEENT: NCAT, EOMi, PEERLA, nares patent and no symmetrical, no tonsillar exudates, mucous membranes moist CV: RRR, no murmurs, rubs, or gallops Pulm: CTAB, No wheezes, rhonchi, or rales, no accessory muscle usage or conversational dyspnea GI: Soft, nontender, nondistended, bowel sounds present, PEG tube in place, C/D/ I Neuro: CN 2-12 grossly intact bilaterally, no focal signs. Ext: No lower extremity edema bilaterally, LE contracted bilaterally Skin: Multiple pressure ulcers noted on hip/heels Lymph: No lymphadenopathy in upper extremity and lower extremity Rory Oconnor M.D. Jul 16, 2019 10:33
[2019-07-16 12:00] VITALS: BP 132/71
[2019-07-16] MEDS ORDERED: Vancomycin oral 125mg/2.5ml ORAL SCH (12:00)
--- NOTE | 2019-07-16 12:27 | Urology Progress Note ---
Assessment/Plan Status: stable Assessment/Plan: 1. Hematuria, which was previously gross and now microscopic. 2. End-stage renal disease, on hemodialysis. 3. Urinary retention history, now with incontinence. 4. Probable neurogenic bladder. 5. Pyuria. 6. Proteinuria. 7. History of acute kidney injury. monitor clinically abx as ordered I+O cath PRN cysto later HD per store administrator f/u on blood cx Subjective Allergies: Coded Allergies: No Known Allergies (Unverified , 06/24/19) Subjective all noted, urinary incontinence Objective Last 24 Hour Vital Signs Date Time Temp Pulse Resp B/P (MAP) Pulse Ox O2 Delivery O2 Flow Rate FiO2 07/16/19 12:00 97.7 96 20 132/71 (91) 100 07/16/19 09:00 Nasal Cannula 2.0 Nasal Cannula 2.0 07/16/19 08:00 106 07/16/19 08:00 99.9 102 21 115/68 (84) 100 07/16/19 04:00 98.6 102 19 110/67 (81) 100 07/16/19 04:00 103 07/16/19 00:00 120 07/16/19 00:00 98.4 120 19 111/74 (86) 100 07/15/19 21:47 100.0 07/15/19 21:00 101.1 125 21 105/72 (83) 99 07/15/19 20:00 98.0 138 21 122/50 (74) 98 07/15/19 20:00 Nasal Cannula 2.0 Nasal Cannula 2.0 07/15/19 19:02 127 07/15/19 17:25 97.6 123 20 124/67 (86) 97 07/15/19 16:00 123 07/15/19 15:30 97.6 118 20 107/56 (73) 97 Intake and Output 07/15/19 07/16/19 19:00 07:00 Intake Total 776 ml 388.6667 ml Output Total 2000 ml Balance 776 ml -1611.3333 ml IV Total 385 ml 3.6667 ml Tube Feeding 391 ml 385 ml Output Hemodialysis UF 2000 ml # Voids 4 # Bowel Movements 4 101 Microbiology Date/Time Source Procedure Growth Status 07/14/19 12:00 Blood Blood Culture - Preliminary NO GROWTH AFTER 24 HOURS Resulted 07/14/19 12:30 Nasal Nares - Final Complete 07/14/19 12:30 Nasal Nares - Final Complete 07/14/19 12:00 Rectum VRE Culture - Final Enterococcus Faecium - Vre Complete Current Medications Medications (Trade) Dose Ordered Sig/Joan Route PRN Reason Start Time Stop Time Status Last Admin Dose Admin Acetaminophen (Tylenol) 650 mg Q4H PRN ORAL Mild Pain (Pain Scale 1-3) 07/14/19 14:45 08/13/19 14:44 07/15/19 21:17 Atorvastatin Calcium (Lipitor) 10 mg QHS GT 07/14/19 21:00 10/12/19 20:59 07/15/19 21:02 Azithromycin 500 mg/Sodium Chloride 275 ml @ 275 mls/hr DAILY IV 07/15/19 09:00 07/22/19 08:59 07/16/19 08:16 Chlorhexidine Gluconate (Cari-Hex 2%) 1 applic DAILY@2000 TOPIC 07/15/19 20:00 10/13/19 19:59 07/15/19 20:58 Dextrose (Dextrose 50%) 25 ml Q30M PRN IV Hypoglycemia 07/14/19 14:45 10/12/19 14:44 Dextrose (Dextrose 50%) 50 ml Q30M PRN IV Hypoglycemia 07/14/19 14:45 10/12/19 14:44 Epoetin Dion (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)) 4,000 unit MON-MON-MON SUBQ 07/17/19 21:00 10/15/19 20:59 Furosemide (Lasix) 80 mg DAILY IV 07/14/19 16:00 07/17/19 15:59 07/16/19 08:17 Heparin Sodium (Porcine) (Heparin 5000 units/ml) 5,000 units EVERY 12 HOURS SUBQ 07/14/19 21:00 08/28/19 20:59 07/16/19 08:23 Hydralazine HCl (Apresoline) 10 mg Q4H PRN IV For High Blood Pressure 07/14/19 15:30 10/12/19 15:29 Lactobacillus Acidophilus (Culturelle) 1 tab Q12HR GT 07/15/19 12:14 10/13/19 12:13 07/16/19 08:16 Morphine Sulfate (Morphine Sulfate) 2 mg Q4H PRN IVP Severe Pain (Pain Scale 7-10) 07/14/19 15:00 07/21/19 14:59 07/15/19 10:33 Ondansetron HCl (Zofran) 4 mg Q6H PRN IVP Nausea & Vomiting 07/14/19 14:45 08/13/19 14:44 Piperacillin Sod/ Tazobactam Sod 2.25 gm/Sodium Chloride 110 ml @ 220 mls/hr Q8HR IVPB 07/14/19 22:00 07/21/19 21:59 07/16/19 05:59 Vancomycin HCl (Firvanq) 125 mg Q6HR ORAL 07/16/19 12:00 07/23/19 11:59 07/16/19 12:14 Vancomycin HCl (Vanco rx to dose) 1 ea DAILY PRN MISC Per rx protocol 07/14/19 14:45 08/13/19 14:44 Laboratory Tests 07/16/19 04:30: White Blood Count 23.5#*H, Red Blood Count 2.66L, Hemoglobin 8.4L, Hematocrit 24.5L, Mean Corpuscular Volume 92, Mean Corpuscular Hemoglobin 31.6H, Mean Corpuscular Hemoglobin Concent 34.4, Red Cell Distribution Width 14.0, Platelet Count 240, Mean Platelet Volume 8.4, Neutrophils (%) (Auto) , Lymphocytes (%) ( Auto) , Monocytes (%) (Auto) , Eosinophils (%) (Auto) , Basophils (%) (Auto) , Differential Total Cells Counted 100, Neutrophils % (Manual) 97H, Lymphocytes % (Manual) 2L, Monocytes % (Manual) 1, Eosinophils % (Manual) 0, Basophils % ( Manual) 0, Band Neutrophils 0, Platelet Estimate Adequate, Platelet Morphology Normal, Hypochromasia 2+, Anisocytosis 1+, Spherocytes 1+, Sodium Level 141, Potassium Level 3.6, Chloride Level 103, Carbon Dioxide Level 27, Anion Gap 11, Blood Urea Nitrogen 44H, Creatinine 2.8H, Estimat Glomerular Filtration Rate 19.3, Glucose Level 141H, Calcium Level 9.8, Calcium (Send out) [Pending], Phosphorus Level 2.7, Magnesium Level 2.1, Iron Level 10L, Total Iron Binding Capacity 99L, Percent Iron Saturation 10L, Unsaturated Iron Binding 89L, Ferritin 1473H, Total Bilirubin 0.6, Aspartate Amino Transf (AST/SGOT) 88H, Alanine Aminotransferase (ALT/SGPT) 63, Alkaline Phosphatase 219H, Troponin I 0.223H, Total Protein 6.6, Albumin 3.7, Globulin 2.9, Albumin/Globulin Ratio 1.3 , Vitamin D 25-Hydroxy [Pending], 25-Hydroxy Vitamin D2 [Pending], 25-Hydroxy Vitamin D3 [Pending], Parathyroid Hormone (Intact) [Pending] Height (Feet): 5 Height (Inches): 3.00 Weight (Pounds): 139 Objective exam stable Omar Mckoy MD Jul 16, 2019 12:27
--- NOTE | 2019-07-16 12:49 | Infectious Diseases Prog Note ---
Assessment/Plan Assessment/Plan A) 1) ? pna, ? covid-19 - low suspicion 2) sepsis, fevers, tachycardia, leukocytosis, diarrhea, ? c.diff. 3) multiple wounds - ? right hip wound most pronounced P) 1) zoysn and vancomycin, azithromycin, add po vancomycin 2) check cultures, labs and chest x-ray, check c.diff. 3) covid-19 testing 4) wound care per surgery 5) d/w primary care team Subjective Constitutional: Denies: fever Respiratory: Denies: shortness of breath Gastrointestinal/Abdominal: Reports: diarrhea; Denies: nausea, vomiting Allergies: Coded Allergies: No Known Allergies (Unverified , 06/24/19) Objective Vital Signs Last 24 Hour Vital Signs Date Time Temp Pulse Resp B/P (MAP) Pulse Ox O2 Delivery O2 Flow Rate FiO2 07/16/19 12:00 97.7 96 20 132/71 (91) 100 07/16/19 09:00 Nasal Cannula 2.0 Nasal Cannula 2.0 07/16/19 08:00 106 07/16/19 08:00 99.9 102 21 115/68 (84) 100 07/16/19 04:00 98.6 102 19 110/67 (81) 100 07/16/19 04:00 103 07/16/19 00:00 120 07/16/19 00:00 98.4 120 19 111/74 (86) 100 07/15/19 21:47 100.0 07/15/19 21:00 101.1 125 21 105/72 (83) 99 07/15/19 20:00 98.0 138 21 122/50 (74) 98 07/15/19 20:00 Nasal Cannula 2.0 Nasal Cannula 2.0 07/15/19 19:02 127 07/15/19 17:25 97.6 123 20 124/67 (86) 97 07/15/19 16:00 123 07/15/19 15:30 97.6 118 20 107/56 (73) 97 Height (Feet): 5 Height (Inches): 3.00 Weight (Pounds): 139 General Appearance: no acute distress HEENT: atraumatic, anicteric Respiratory/Chest: lungs clear, normal breath sounds Cardiovascular: normal rate, regular rhythm Microbiology Date/Time Source Procedure Growth Status 07/14/19 12:00 Blood Blood Culture - Preliminary NO GROWTH AFTER 24 HOURS Resulted 07/14/19 12:00 Blood Blood Culture - Preliminary NO GROWTH AFTER 24 HOURS Resulted 07/14/19 12:30 Nasal Nares - Final Complete 07/14/19 12:30 Nasal Nares - Final Complete 07/14/19 12:00 Nasal Nares MRSA Culture - Final NO METHICILLIN RESISTANT STAPH AUREUS... Complete 07/14/19 12:00 Rectum VRE Culture - Final Enterococcus Faecium - Vre Complete Laboratory Tests Test 07/16/19 04:30 White Blood Count 23.5 K/UL (4.8-10.8) #*H Red Blood Count 2.66 M/UL (4.20-5.40) L Hemoglobin 8.4 G/DL (12.0-16.0) L Hematocrit 24.5 % (37.0-47.0) L Mean Corpuscular Volume 92 FL (80-99) Mean Corpuscular Hemoglobin 31.6 PG (27.0-31.0) H Mean Corpuscular Hemoglobin Concent 34.4 G/DL (32.0-36.0) Red Cell Distribution Width 14.0 % (11.6-14.8) Platelet Count 240 K/UL (150-450) Mean Platelet Volume 8.4 FL (6.5-10.1) Neutrophils (%) (Auto) % (45.0-75.0) Lymphocytes (%) (Auto) % (20.0-45.0) Monocytes (%) (Auto) % (1.0-10.0) Eosinophils (%) (Auto) % (0.0-3.0) Basophils (%) (Auto) % (0.0-2.0) Differential Total Cells Counted 100 Neutrophils % (Manual) 97 % (45-75) H Lymphocytes % (Manual) 2 % (20-45) L Monocytes % (Manual) 1 % (1-10) Eosinophils % (Manual) 0 % (0-3) Basophils % (Manual) 0 % (0-2) Band Neutrophils 0 % (0-8) Platelet Estimate Adequate Platelet Morphology Normal Hypochromasia 2+ Anisocytosis 1+ Spherocytes 1+ Sodium Level 141 MMOL/L (136-145) Potassium Level 3.6 MMOL/L (3.5-5.1) Chloride Level 103 MMOL/L (98-107) Carbon Dioxide Level 27 MMOL/L (21-32) Anion Gap 11 mmol/L (5-15) Blood Urea Nitrogen 44 mg/dL (7-18) H Creatinine 2.8 MG/DL (0.55-1.30) H Estimat Glomerular Filtration Rate 19.3 mL/min (>60) Glucose Level 141 MG/DL (74-106) H Calcium Level 9.8 MG/DL (8.5-10.1) Calcium (Send out) Pending Phosphorus Level 2.7 MG/DL (2.5-4.9) Magnesium Level 2.1 MG/DL (1.8-2.4) Iron Level 10 ug/dL (50-175) L Total Iron Binding Capacity 99 ug/dL (250-450) L Percent Iron Saturation 10 % (15-50) L Unsaturated Iron Binding 89 ug/dL (112-346) L Ferritin 1473 NG/ML (8-388) H Total Bilirubin 0.6 MG/DL (0.2-1.0) Aspartate Amino Transf (AST/SGOT) 88 U/L (15-37) H Alanine Aminotransferase (ALT/SGPT) 63 U/L (12-78) Alkaline Phosphatase 219 U/L (46-116) H Troponin I 0.223 ng/mL (0.000-0.056) Total Protein 6.6 G/DL (6.4-8.2) Albumin 3.7 G/DL (3.4-5.0) Globulin 2.9 g/dL Albumin/Globulin Ratio 1.3 (1.0-2.7) Vitamin D 25-Hydroxy Pending 25-Hydroxy Vitamin D2 Pending 25-Hydroxy Vitamin D3 Pending Parathyroid Hormone (Intact) Pending Current Medications Medications (Trade) Dose Ordered Sig/Joan Route PRN Reason Start Time Stop Time Status Last Admin Dose Admin Acetaminophen (Tylenol) 650 mg Q4H PRN ORAL Mild Pain (Pain Scale 1-3) 07/14/19 14:45 08/13/19 14:44 07/15/19 21:17 Atorvastatin Calcium (Lipitor) 10 mg QHS GT 07/14/19 21:00 10/12/19 20:59 07/15/19 21:02 Azithromycin 500 mg/Sodium Chloride 275 ml @ 275 mls/hr DAILY IV 07/15/19 09:00 07/22/19 08:59 07/16/19 08:16 Chlorhexidine Gluconate (Cari-Hex 2%) 1 applic DAILY@2000 TOPIC 07/15/19 20:00 10/13/19 19:59 07/15/19 20:58 Dextrose (Dextrose 50%) 25 ml Q30M PRN IV Hypoglycemia 07/14/19 14:45 10/12/19 14:44 Dextrose (Dextrose 50%) 50 ml Q30M PRN IV Hypoglycemia 07/14/19 14:45 10/12/19 14:44 Epoetin Dion (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)) 4,000 unit MON-MON-MON SUBQ 07/17/19 21:00 10/15/19 20:59 Furosemide (Lasix) 80 mg DAILY IV 07/14/19 16:00 07/17/19 15:59 07/16/19 08:17 Heparin Sodium (Porcine) (Heparin 5000 units/ml) 5,000 units EVERY 12 HOURS SUBQ 07/14/19 21:00 08/28/19 20:59 07/16/19 08:23 Hydralazine HCl (Apresoline) 10 mg Q4H PRN IV For High Blood Pressure 07/14/19 15:30 10/12/19 15:29 Lactobacillus Acidophilus (Culturelle) 1 tab Q12HR GT 07/15/19 12:14 10/13/19 12:13 07/16/19 08:16 Morphine Sulfate (Morphine Sulfate) 2 mg Q4H PRN IVP Severe Pain (Pain Scale 7-10) 07/14/19 15:00 07/21/19 14:59 07/15/19 10:33 Ondansetron HCl (Zofran) 4 mg Q6H PRN IVP Nausea & Vomiting 07/14/19 14:45 08/13/19 14:44 Piperacillin Sod/ Tazobactam Sod 2.25 gm/Sodium Chloride 110 ml @ 220 mls/hr Q8HR IVPB 07/14/19 22:00 07/21/19 21:59 07/16/19 05:59 Vancomycin HCl (Firvanq) 125 mg Q6HR ORAL 07/16/19 12:00 07/23/19 11:59 07/16/19 12:14 Vancomycin HCl (Vanco rx to dose) 1 ea DAILY PRN MISC Per rx protocol 07/14/19 14:45 08/13/19 14:44 Ana Rosado MD Jul 16, 2019 12:49
--- NOTE | 2019-07-16 13:28 | Surgery Progress Note ---
Surgery Progress Note Subjective Additional Comments resting comfortable labs reviewed exam stable Objective Last 24 Hour Vital Signs Date Time Temp Pulse Resp B/P (MAP) Pulse Ox O2 Delivery O2 Flow Rate FiO2 07/16/19 12:00 97.7 96 20 132/71 (91) 100 07/16/19 09:00 Nasal Cannula 2.0 Nasal Cannula 2.0 07/16/19 08:00 106 07/16/19 08:00 99.9 102 21 115/68 (84) 100 07/16/19 04:00 98.6 102 19 110/67 (81) 100 07/16/19 04:00 103 07/16/19 00:00 120 07/16/19 00:00 98.4 120 19 111/74 (86) 100 07/15/19 21:47 100.0 07/15/19 21:00 101.1 125 21 105/72 (83) 99 07/15/19 20:00 98.0 138 21 122/50 (74) 98 07/15/19 20:00 Nasal Cannula 2.0 Nasal Cannula 2.0 07/15/19 19:02 127 07/15/19 17:25 97.6 123 20 124/67 (86) 97 07/15/19 16:00 123 07/15/19 15:30 97.6 118 20 107/56 (73) 97 I&O Intake and Output 07/15/19 07/16/19 19:00 07:00 Intake Total 776 ml 388.6667 ml Output Total 2000 ml Balance 776 ml -1611.3333 ml IV Total 385 ml 3.6667 ml Tube Feeding 391 ml 385 ml Output Hemodialysis UF 2000 ml # Voids 4 # Bowel Movements 4 101 Laboratory Tests Test 07/16/19 04:30 White Blood Count 23.5 K/UL (4.8-10.8) #*H Red Blood Count 2.66 M/UL (4.20-5.40) L Hemoglobin 8.4 G/DL (12.0-16.0) L Hematocrit 24.5 % (37.0-47.0) L Mean Corpuscular Volume 92 FL (80-99) Mean Corpuscular Hemoglobin 31.6 PG (27.0-31.0) H Mean Corpuscular Hemoglobin Concent 34.4 G/DL (32.0-36.0) Red Cell Distribution Width 14.0 % (11.6-14.8) Platelet Count 240 K/UL (150-450) Mean Platelet Volume 8.4 FL (6.5-10.1) Neutrophils (%) (Auto) % (45.0-75.0) Lymphocytes (%) (Auto) % (20.0-45.0) Monocytes (%) (Auto) % (1.0-10.0) Eosinophils (%) (Auto) % (0.0-3.0) Basophils (%) (Auto) % (0.0-2.0) Differential Total Cells Counted 100 Neutrophils % (Manual) 97 % (45-75) H Lymphocytes % (Manual) 2 % (20-45) L Monocytes % (Manual) 1 % (1-10) Eosinophils % (Manual) 0 % (0-3) Basophils % (Manual) 0 % (0-2) Band Neutrophils 0 % (0-8) Platelet Estimate Adequate Platelet Morphology Normal Hypochromasia 2+ Anisocytosis 1+ Spherocytes 1+ Sodium Level 141 MMOL/L (136-145) Potassium Level 3.6 MMOL/L (3.5-5.1) Chloride Level 103 MMOL/L (98-107) Carbon Dioxide Level 27 MMOL/L (21-32) Anion Gap 11 mmol/L (5-15) Blood Urea Nitrogen 44 mg/dL (7-18) H Creatinine 2.8 MG/DL (0.55-1.30) H Estimat Glomerular Filtration Rate 19.3 mL/min (>60) Glucose Level 141 MG/DL (74-106) H Calcium Level 9.8 MG/DL (8.5-10.1) Calcium (Send out) Pending Phosphorus Level 2.7 MG/DL (2.5-4.9) Magnesium Level 2.1 MG/DL (1.8-2.4) Iron Level 10 ug/dL (50-175) L Total Iron Binding Capacity 99 ug/dL (250-450) L Percent Iron Saturation 10 % (15-50) L Unsaturated Iron Binding 89 ug/dL (112-346) L Ferritin 1473 NG/ML (8-388) H Total Bilirubin 0.6 MG/DL (0.2-1.0) Aspartate Amino Transf (AST/SGOT) 88 U/L (15-37) H Alanine Aminotransferase (ALT/SGPT) 63 U/L (12-78) Alkaline Phosphatase 219 U/L (46-116) H Troponin I 0.223 ng/mL (0.000-0.056) Total Protein 6.6 G/DL (6.4-8.2) Albumin 3.7 G/DL (3.4-5.0) Globulin 2.9 g/dL Albumin/Globulin Ratio 1.3 (1.0-2.7) Vitamin D 25-Hydroxy Pending 25-Hydroxy Vitamin D2 Pending 25-Hydroxy Vitamin D3 Pending Parathyroid Hormone (Intact) Pending Plan Problems: (1) Decubitus skin ulcer Assessment & Plan: Pt presented on admission with multiple pressure injuries. Unstageable pressure injury R shoulder(L)3.8cm x (W)3.3cm. Base of wound is 100 % necrotic and dry. Marginal erythema along borders. No erythema or induration periwound. Reabsorbed DTPI R Humerus. Base of injury has dry peeling brown skin with underlying dry pink epithelial. R elbow pressure injury has resolved. Full thickness pressure injury R hip (L)7cm x (W)13.1cm. Base of wound is 70% fibrinous slough,10% necrotic ,20% moist pink granulation. Edges are macerated.Small amt seropurulent non-odorous exudate noted. NO erythema , induration or elevation in skin temp periwound. Opened DTPI Sacrum(L)9cm x (W)15cm. Base of wound is purple,indurated with an open wound at sacrococcygeal which has 100% slough(L)1.6cm x (W)1cm. Surrounding Skin hypopigmentation with areas of excoriation extending into perineum and perianal area. Unstageable pressure injury lateral R malleolus(L)2.5cm x (W)3cm. Base of wound is 100% dry necrosis. Edges adherent to base of wound. No erythema induration or fluctuance periwound. Reabsorbing DTPI R heel. Base of Heel is boggy,non-blanching erythema with dry peeling brown skin along edges.(L)4.2cm x (W)6cm. Resolving DTPI distal/lateral R foot. Stable dry brown eschar without fluctuance or induration(L)1cm x (W)1.5cm. Resolving DTPI Lateral R 5th metatarsal.Base of injury is dry,brown without fluctuance or induration.(L)0.6cm x (W)1cm Unstageable pressure injury L Hallux(L)4cm x (W)2.7cm. Base of wound is 80% necrotic,20% slough with marginal erythema along borders. No odor or exudate noted. DTPI L Heel. Base of injury maroon and fluctuant. Periwound is boggy but blanchable(L)5.5cm x (W)6.5cm. Tx.Plan: Cleanse R shoulder with Saline. Apply Therahoney. Apply Cavilon Periwound. Cover with Optifoam drsg. Change every 3 days and prn. Cleanse R hip with Saline. Apply Therahoney.Apply Moisture Barrier Periwound. Cover with Optifoam drsg. Change Daily and prn. Cleanse Sacrum with Saline. Apply Therahoney. Apply Moisture Barrier Paste periwound. Cover with Optifoam drsg. Change every 3 days and prn. Apply Moisture Barrier Paste to perineum and perianal areas with each incontinence care. Apply Betadine to R heel,Distal/lateral R foot ,R5th metatarsal. Cover with Optifoam drsg. Change every 3 days and prn. Apply Betadine to L hallux,and L heel. Cover each site with Optifoam drsg. Change every 3 days and prn. Reposition at least every 2hours or as tolerated. Place pillow between knees. off-load heels with pillow. (2) Fever (3) Protein calorie malnutrition Assessment & Plan: DAILY ESTIMATED NEEDS: Needs based on Wounds, HD 51.8kg 30-35 kcals/kg 9936-5623 total kcals 1.25-1.8 g protein/kg 65-93 g total protein Fluids per MD mL/kg . total fluid mLs NUTRITION DIAGNOSIS: * Increased kcal and prot needs r/t wound healing and renal failure as evidenced by w/ multiple pressure injuries, pending re-evaluation, s/p recent PermCath placement, HD dependent. * Swallowing difficulty R/T dysphagia as evidenced by s/p recent PEG placement, on GT feeding. CURRENT TF:Jevity 1.2 @ 50ml/hr x 24 hrs ENTERAL NUTRITION RECOMMENDATIONS: Nepro @ 38ml/hr x 24 hrs to provide 912ml, 1642kcal, 74g prot, 663ml free water - Rec TF change to Nepro- HD dependent - Initiate Nepro @ 28ml/hr x 6 hrs, increase to goal as tolerated. - HOB over 30 degrees/ water flush per MD ADDITIONAL RECOMMENDATIONS: 1) Calibrated bedscale wt 2) Wound Care: add Nephrovite x 1 add Saw 1ptk BID when TF well tolerated @ goal 3) Check phos and mag levels 4) Monitor BGs, need for nISS 5) Add probiotics: h/o LBM prev adm, prolonged use of abx (4) Pressure ulcer Anshul Nava Jul 16, 2019 13:28
--- NOTE | 2019-07-16 13:54 | Diagnostic Imaging Report ---
Indication: Dyspnea Comparison: 07/14/2019 A single view chest radiograph was obtained. Findings: Pulmonary vessel congestion noted. Heart is enlarged. Interstitial edema is mild. Bones are osteopenic. IMPRESSION: Mild interstitial edema
[2019-07-16 15:33] VITALS: BP 104/58
--- NOTE | 2019-07-16 15:54 | General Progress Note ---
Assessment/Plan Status: stable Assessment/Plan: 89-year-old female with PMH of acute renal failure, s/p right chest wall permacath on HD, dysphasia s/p PEG, multiple pressure wounds, HTN, h/o AMS was recently discharged from this facility for KAREN/rhabdo, unwitnessed fall, was sent to custodial and returned here due to fevers. Patient was admitted for persistent fevers and for sepsis/COVID 19 rule out. ED course: BMP 8000, troponin 0 0.347, patient given for septic work-up and will be admitted for further treatment. #Fevers or unknown source #Leukocytosis -continue inpatient level of care -r/o infectious causes, r/o COVID -CXR w/mild interstitial edema -follow up cultures -COVID-19 test performed in ED -Droplet precautions -Azithromycin Zosyn given in the ED -cont. Azithro, Zosyn and PO Vanco #Diarrhea #leukocytosis -r/o c diff -ID following - PO vanco for now #ESRD on HD -s/p permcath -HD per renal #HTN #elevated troponin #BNP elevated #Sinus tachycardia -ASA, statin -Continue Lasix 80 mg IV -Cardio following -hydralazine PRN for SBP >160 #Hematuria #Possible Urinary retention. #Possible neurogenic bladder. -UA w/ evidence of RBCs, 4+ blood -Urology recs appreciated #Dysphagia #Diarrhea -s/p PEG -cont tube feeds with reduced rate + Imodium -Dietary and GI consulted #Pressure wounds -Wound care consulted, recs appreciated DVT ppx - heparin sc Time spent on encounter: 35 mins, >50% on counseling, coordination of care. Time of note doesn't reflect time of encounter. Subjective Allergies: Coded Allergies: No Known Allergies (Unverified , 06/24/19) Subjective No acute events overnight. Pt at b/l per nurse. Objective Last 24 Hour Vital Signs Date Time Temp Pulse Resp B/P (MAP) Pulse Ox O2 Delivery O2 Flow Rate FiO2 07/16/19 15:33 98.2 93 21 104/58 (73) 100 07/16/19 12:00 98 07/16/19 12:00 97.7 96 20 132/71 (91) 100 07/16/19 09:00 Nasal Cannula 2.0 Nasal Cannula 2.0 07/16/19 08:00 106 3/24/20 08:00 99.9 102 21 115/68 (84) 100 07/16/19 04:00 98.6 102 19 110/67 (81) 100 07/16/19 04:00 103 07/16/19 00:00 120 07/16/19 00:00 98.4 120 19 111/74 (86) 100 07/15/19 21:47 100.0 07/15/19 21:00 101.1 125 21 105/72 (83) 99 07/15/19 20:00 98.0 138 21 122/50 (74) 98 07/15/19 20:00 Nasal Cannula 2.0 Nasal Cannula 2.0 07/15/19 19:02 127 07/15/19 17:25 97.6 123 20 124/67 (86) 97 07/15/19 16:00 123 Intake and Output 07/15/19 07/16/19 19:00 07:00 Intake Total 776 ml 388.6667 ml Output Total 2000 ml Balance 776 ml -1611.3333 ml IV Total 385 ml 3.6667 ml Tube Feeding 391 ml 385 ml Output Hemodialysis UF 2000 ml # Voids 4 # Bowel Movements 4 101 Laboratory Tests 07/16/19 04:30: White Blood Count 23.5#*H, Red Blood Count 2.66L, Hemoglobin 8.4L, Hematocrit 24.5L, Mean Corpuscular Volume 92, Mean Corpuscular Hemoglobin 31.6H, Mean Corpuscular Hemoglobin Concent 34.4, Red Cell Distribution Width 14.0, Platelet Count 240, Mean Platelet Volume 8.4, Neutrophils (%) (Auto) , Lymphocytes (%) ( Auto) , Monocytes (%) (Auto) , Eosinophils (%) (Auto) , Basophils (%) (Auto) , Differential Total Cells Counted 100, Neutrophils % (Manual) 97H, Lymphocytes % (Manual) 2L, Monocytes % (Manual) 1, Eosinophils % (Manual) 0, Basophils % ( Manual) 0, Band Neutrophils 0, Platelet Estimate Adequate, Platelet Morphology Normal, Hypochromasia 2+, Anisocytosis 1+, Spherocytes 1+, Sodium Level 141, Potassium Level 3.6, Chloride Level 103, Carbon Dioxide Level 27, Anion Gap 11, Blood Urea Nitrogen 44H, Creatinine 2.8H, Estimat Glomerular Filtration Rate 19.3, Glucose Level 141H, Calcium Level 9.8, Calcium (Send out) [Pending], Phosphorus Level 2.7, Magnesium Level 2.1, Iron Level 10L, Total Iron Binding Capacity 99L, Percent Iron Saturation 10L, Unsaturated Iron Binding 89L, Ferritin 1473H, Total Bilirubin 0.6, Aspartate Amino Transf (AST/SGOT) 88H, Alanine Aminotransferase (ALT/SGPT) 63, Alkaline Phosphatase 219H, Troponin I 0.223H, Total Protein 6.6, Albumin 3.7, Globulin 2.9, Albumin/Globulin Ratio 1.3 , Vitamin D 25-Hydroxy [Pending], 25-Hydroxy Vitamin D2 [Pending], 25-Hydroxy Vitamin D3 [Pending], Parathyroid Hormone (Intact) [Pending] Height (Feet): 5 Height (Inches): 3.00 Weight (Pounds): 139 Objective General Appearance: alert, confused, AOx1 at b/l Neck: supple Cardiovascular: normal rate, regular rhythm Respiratory/Chest: lungs clear, normal breath sounds Abdomen: non tender, soft, +PEG c/d/i Ext: contracted b/l, no edema Lisa Brewster M.D. Jul 16, 2019 15:54
--- NOTE | 2019-07-16 17:21 | Neurology Progress Note ---
Interim History Interim History ROS Limited/Unobtainable: Yes Interim History less agitated, somnolent and confused Objective Physical Exam Last Vital Signs Date Time Temp Pulse Resp B/P (MAP) Pulse Ox O2 Delivery O2 Flow Rate FiO2 07/16/19 15:44 92 07/16/19 15:33 98.2 21 104/58 (73) 100 07/16/19 09:00 Nasal Cannula 2.0 Nasal Cannula 2.0 Laboratory Tests Test 07/16/19 04:30 07/16/19 16:35 White Blood Count 23.5 K/UL (4.8-10.8) #*H Red Blood Count 2.66 M/UL (4.20-5.40) L Hemoglobin 8.4 G/DL (12.0-16.0) L Hematocrit 24.5 % (37.0-47.0) L Mean Corpuscular Volume 92 FL (80-99) Mean Corpuscular Hemoglobin 31.6 PG (27.0-31.0) H Mean Corpuscular Hemoglobin Concent 34.4 G/DL (32.0-36.0) Red Cell Distribution Width 14.0 % (11.6-14.8) Platelet Count 240 K/UL (150-450) Mean Platelet Volume 8.4 FL (6.5-10.1) Neutrophils (%) (Auto) % (45.0-75.0) Lymphocytes (%) (Auto) % (20.0-45.0) Monocytes (%) (Auto) % (1.0-10.0) Eosinophils (%) (Auto) % (0.0-3.0) Basophils (%) (Auto) % (0.0-2.0) Differential Total Cells Counted 100 Neutrophils % (Manual) 97 % (45-75) H Lymphocytes % (Manual) 2 % (20-45) L Monocytes % (Manual) 1 % (1-10) Eosinophils % (Manual) 0 % (0-3) Basophils % (Manual) 0 % (0-2) Band Neutrophils 0 % (0-8) Platelet Estimate Adequate Platelet Morphology Normal Hypochromasia 2+ Anisocytosis 1+ Spherocytes 1+ Sodium Level 141 MMOL/L (136-145) Potassium Level 3.6 MMOL/L (3.5-5.1) Chloride Level 103 MMOL/L (98-107) Carbon Dioxide Level 27 MMOL/L (21-32) Anion Gap 11 mmol/L (5-15) Blood Urea Nitrogen 44 mg/dL (7-18) H Creatinine 2.8 MG/DL (0.55-1.30) H Estimat Glomerular Filtration Rate 19.3 mL/min (>60) Glucose Level 141 MG/DL (74-106) H Calcium Level 9.8 MG/DL (8.5-10.1) Calcium (Send out) Pending Phosphorus Level 2.7 MG/DL (2.5-4.9) Magnesium Level 2.1 MG/DL (1.8-2.4) Iron Level 10 ug/dL (50-175) L Total Iron Binding Capacity 99 ug/dL (250-450) L Percent Iron Saturation 10 % (15-50) L Unsaturated Iron Binding 89 ug/dL (112-346) L Ferritin 1473 NG/ML (8-388) H Total Bilirubin 0.6 MG/DL (0.2-1.0) Aspartate Amino Transf (AST/SGOT) 88 U/L (15-37) H Alanine Aminotransferase (ALT/SGPT) 63 U/L (12-78) Alkaline Phosphatase 219 U/L (46-116) H Troponin I 0.223 ng/mL (0.000-0.056) Pending Total Protein 6.6 G/DL (6.4-8.2) Albumin 3.7 G/DL (3.4-5.0) Globulin 2.9 g/dL Albumin/Globulin Ratio 1.3 (1.0-2.7) Vitamin D 25-Hydroxy Pending 25-Hydroxy Vitamin D2 Pending 25-Hydroxy Vitamin D3 Pending Parathyroid Hormone (Intact) Pending Head: normocophalic Neck: no rigidity EENT: benign Neurologic Exam Mental Status: awake Cranial Nerves III, IV, : PERRLA Objective Wakes up, tracks with eyes, tell me her name, withdraws all 4 Impression/Recommendations Problems: (1) Decubitus skin ulcer (2) Fever (3) Rhabdomyolysis (4) Elevated troponin (5) KAREN (acute kidney injury) (6) Fever (7) Elevated brain natriuretic peptide (BNP) level (8) ESRD (end stage renal disease) on dialysis (9) ESRD (end stage renal disease) on dialysis (10) Pressure ulcer (11) Protein calorie malnutrition (12) Dysphagia Status: stable Diagnostic Impression Acute encephalopathy, baseline dementia Sepsis Monitor neuro exam for improvement broad spectrum atb rule out covid Delirium precautions Sushil Stevenson MD Jul 16, 2019 17:21
[2019-07-16] MEDS: Vancomycin oral 125mg/2.5ml GT SCH (17:32)
--- NOTE | 2019-07-16 19:20 | NUR ---
NURSE NOTES: report given to abdirahman anderson.
--- NOTE | 2019-07-16 19:49 | NUR ---
NURSE NOTES: Received pt from [facility]. will continue plan of care.
[2019-07-16 20:00] VITALS: BP 147/71
--- NOTE | 2019-07-16 21:32 | Cardiology Progress Note ---
Assessment/Plan Status: stable Assessment/Plan Assessment/Plan Assessment/Plan: Heart failure elevated BNP Elevated troponin HTN AMS Dysphagia s/p PEG ESRD on HD Syncope/fall -Serial EKG/Troponin - now down trending -maintain HD -Maintain abx per ID -Echocardiogram -Defer stress testing/cardiac cath -Continue aspirin -Continue statin -Continue lasix -Follow cultures -Continue tube feeds -Continue wound care -Supportive care Subjective Cardiovascular: Reports: no symptoms Respiratory: Reports: no symptoms Gastrointestinal/Abdominal: Reports: no symptoms Genitourinary: Reports: no symptoms Subjective No acute events, no CP/SOB no distress, tolerating ABx and HD Objective Last 24 Hour Vital Signs Date Time Temp Pulse Resp B/P (MAP) Pulse Ox O2 Delivery O2 Flow Rate FiO2 07/16/19 20:00 105 07/16/19 15:44 92 07/16/19 15:33 98.2 93 21 104/58 (73) 100 07/16/19 12:00 98 07/16/19 12:00 97.7 96 20 132/71 (91) 100 07/16/19 09:00 Nasal Cannula 2.0 Nasal Cannula 2.0 07/16/19 08:00 106 07/16/19 08:00 99.9 102 21 115/68 (84) 100 07/16/19 04:00 98.6 102 19 110/67 (81) 100 07/16/19 04:00 103 07/16/19 00:00 120 07/16/19 00:00 98.4 120 19 111/74 (86) 100 07/15/19 21:47 100.0 General Appearance: no apparent distress, alert EENT: PERRL/EOMI, normal ENT inspection, TMs normal, pharynx normal Neck: non-tender, normal alignment, supple, normal inspection, no JVD - =-0 Rhythm: NSR Cardiovascular: normal peripheral pulses, normal rate, regular rhythm Respiratory/Chest: chest wall non-tender, lungs clear, normal breath sounds, no respiratory distress, no accessory muscle use Abdomen: normal bowel sounds, non tender, soft, no organomegaly, no mass Extremities: normal range of motion, non-tender, normal inspection, no calf tenderness, no swelling 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: 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 normal, no motor/sensory deficits Intake and Output 07/15/19 07/16/19 19:00 07:00 Intake Total 776 ml 388.6667 ml Output Total 2000 ml Balance 776 ml -1611.3333 ml IV Total 385 ml 3.6667 ml Tube Feeding 391 ml 385 ml Hemodialysis UF 2000 ml # Voids 4 # Bowel Movements 4 101 Laboratory Tests Test 07/16/19 04:30 07/16/19 16:35 07/16/19 18:45 White Blood Count 23.5 K/UL (4.8-10.8) #*H Red Blood Count 2.66 M/UL (4.20-5.40) L Hemoglobin 8.4 G/DL (12.0-16.0) L Hematocrit 24.5 % (37.0-47.0) L Mean Corpuscular Volume 92 FL (80-99) Mean Corpuscular Hemoglobin 31.6 PG (27.0-31.0) H Mean Corpuscular Hemoglobin Concent 34.4 G/DL (32.0-36.0) Red Cell Distribution Width 14.0 % (11.6-14.8) Platelet Count 240 K/UL (150-450) Mean Platelet Volume 8.4 FL (6.5-10.1) Neutrophils (%) (Auto) % (45.0-75.0) Lymphocytes (%) (Auto) % (20.0-45.0) Monocytes (%) (Auto) % (1.0-10.0) Eosinophils (%) (Auto) % (0.0-3.0) Basophils (%) (Auto) % (0.0-2.0) Differential Total Cells Counted 100 Neutrophils % (Manual) 97 % (45-75) H Lymphocytes % (Manual) 2 % (20-45) L Monocytes % (Manual) 1 % (1-10) Eosinophils % (Manual) 0 % (0-3) Basophils % (Manual) 0 % (0-2) Band Neutrophils 0 % (0-8) Platelet Estimate Adequate Platelet Morphology Normal Hypochromasia 2+ Anisocytosis 1+ Spherocytes 1+ Sodium Level 141 MMOL/L (136-145) Potassium Level 3.6 MMOL/L (3.5-5.1) Chloride Level 103 MMOL/L (98-107) Carbon Dioxide Level 27 MMOL/L (21-32) Anion Gap 11 mmol/L (5-15) Blood Urea Nitrogen 44 mg/dL (7-18) H Creatinine 2.8 MG/DL (0.55-1.30) H Estimat Glomerular Filtration Rate 19.3 mL/min (>60) Glucose Level 141 MG/DL (74-106) H Calcium Level 9.8 MG/DL (8.5-10.1) Calcium (Send out) Pending Phosphorus Level 2.7 MG/DL (2.5-4.9) Magnesium Level 2.1 MG/DL (1.8-2.4) Iron Level 10 ug/dL (50-175) L Total Iron Binding Capacity 99 ug/dL (250-450) L Percent Iron Saturation 10 % (15-50) L Unsaturated Iron Binding 89 ug/dL (112-346) L Ferritin 1473 NG/ML (8-388) H Total Bilirubin 0.6 MG/DL (0.2-1.0) Aspartate Amino Transf (AST/SGOT) 88 U/L (15-37) H Alanine Aminotransferase (ALT/SGPT) 63 U/L (12-78) Alkaline Phosphatase 219 U/L (46-116) H Troponin I 0.223 ng/mL (0.000-0.056) 0.240 ng/mL (0.000-0.056) 0.248 ng/mL (0.000-0.056) Total Protein 6.6 G/DL (6.4-8.2) Albumin 3.7 G/DL (3.4-5.0) Globulin 2.9 g/dL Albumin/Globulin Ratio 1.3 (1.0-2.7) Vitamin D 25-Hydroxy Pending 25-Hydroxy Vitamin D2 Pending 25-Hydroxy Vitamin D3 Pending Parathyroid Hormone (Intact) Pending Microbiology Date/Time Source Procedure Growth Status 07/14/19 12:00 Blood Blood Culture - Preliminary NO GROWTH AFTER 24 HOURS Resulted 07/14/19 12:00 Blood Blood Culture - Preliminary NO GROWTH AFTER 24 HOURS Resulted 07/14/19 12:30 Nasal Nares - Final Complete 07/14/19 12:30 Nasal Nares - Final Complete 07/14/19 12:00 Nasal Nares MRSA Culture - Final NO METHICILLIN RESISTANT STAPH AUREUS... Complete 07/14/19 12:00 Rectum VRE Culture - Final Enterococcus Faecium - Vre Complete Melchor Cerna MD Jul 16, 2019:32
[2019-07-16] MEDS: Dyna-Hex 2% Top Sol 2oz TOPIC SCH (21:48)
--- NOTE | 2019-07-16 22:00 | NUR ---
NURSE NOTES: all due meds given. pt is observed resting in bed, unable to make needs known, no s/sx of pain noted. pt is on 2 L O2 via NC, tolerating well, saturation: 100%. no s/sx of respiratory distress noted. teletypesetter monitor shows ST with HR of 104. no acute cardiac distress noted. G-tube site is patent and intact, running Nepro @ 35 cc/hr. HOB elevated to 30 degrees, no residual noted. Rectal tube patent and intact. skin alterations noted. Right upper chest permacath noted; dressing dry and intact. LFA 22 g IV site is patent and intact, asymptomatic. bed in lowest position and locked, siderails up X3, call light within reach. will continue to monitor.
[2019-07-17] VITALS (7 sets, daily range): BP systolic 124–157; BP diastolic 63–95
[2019-07-17] MEDS: Vancomycin oral 125mg/2.5ml GT SCH ×4 (00:28→17:05)
[2019-07-17 05:16] LABS: BASOPHILS % (AUTO) 0.4 % (0.0-2.0); EOSINOPHILS % (AUTO) 2.1 % (0.0-3.0); HEMATOCRIT 25.9 % (37.0-47.0); HEMOGLOBIN 8.6 G/DL (12.0-16.0); LYMPHOCYTES % (AUTO) 15.6 % (20.0-45.0); MEAN CORPUSCULAR VOLUME 92 FL (80-99); MONOCYTES % (AUTO) 8.6 % (1.0-10.0); NEUTROPHILS % (AUTO) 73.3 % (45.0-75.0); PLATELET COUNT 275 K/UL (150-450); RED BLOOD COUNT 2.82 M/UL (4.20-5.40); RED CELL DISTRIBUTION WIDTH 13.5 % (11.6-14.8); WHITE BLOOD COUNT 13.8 K/UL (4.8-10.8)
[2019-07-17 05:46] LABS: ALANINE AMINOTRANSFERASE 49 U/L (12-78); ALBUMIN 3.3 G/DL (3.4-5.0); ALKALINE PHOSPHATASE 159 U/L (46-116); ANION GAP 12 mmol/L (5-15); ASPARTATE AMINO TRANSFERASE 60 U/L (15-37); BILIRUBIN,TOTAL 0.6 MG/DL (0.2-1.0); BLOOD UREA NITROGEN 68 mg/dL (7-18); CALCIUM 10.3 MG/DL (8.5-10.1); CARBON DIOXIDE 27 MMOL/L (21-32); CHLORIDE 102 MMOL/L (98-107); CREATININE 3.8 MG/DL (0.55-1.30); POTASSIUM 3.3 MMOL/L (3.5-5.1); SODIUM 141 MMOL/L (136-145)
[2019-07-17] MEDS: Piperacillin/Tazobactam 2.25 GM in NS 110 ML IVPB SCH ×3 (05:56→22:54)
--- NOTE | 2019-07-17 06:54 | NUR ---
HAND-OFF: Report given to HYUN Matute. endorsed plan of care.
--- NOTE | 2019-07-17 07:00 | NUR ---
NURSE NOTES: received patient report from abdirahman anderson. patient is on bed awake. not in acute distress. on 2 Li NC. SR on the monitor. on Gtube running at prescribed rate. wound care per order. droplet precaution observed, r/o covid-.awaiting result. specimen collected 07/10. will follow plan of care.
[2019-07-17] MEDS: Lactobacillus-GG tablet GT SCH ×2 (08:17→20:28)
[2019-07-17] MEDS: Azithromycin 500 MG in NS 275 ML IV SCH (08:17)
[2019-07-17] MEDS: Heparin 5000 units/ml inj SUBQ SCH ×2 (08:20→20:28)
--- NOTE | 2019-07-17 08:35 | NUR ---
NURSE NOTES: patient came negative for covid-19. dr james gave order to dc droplet px. will continue to monitor.
--- NOTE | 2019-07-17 08:59 | General Progress Note ---
Assessment/Plan Status: stable Assessment/Plan: 1. End-stage renal disease, on hemodialysis. 2. Anemia. 3. Dysphagia, status post G-tube placement. 4. Pneumonia. 5. Pancreatic cyst. 6. Hypertension. 7. Diarrhea 8. Leukocytosis ? C.diff on oral vanco will dc imodium GTF abx per ID HD per nephrology repeal labs in am Subjective ROS Limited/Unobtainable: No Allergies: Coded Allergies: No Known Allergies (Unverified , 06/24/19) Objective Last 24 Hour Vital Signs Date Time Temp Pulse Resp B/P (MAP) Pulse Ox O2 Delivery O2 Flow Rate FiO2 07/17/19 08:00 98.4 94 18 137/77 (97) 100 07/17/19 07:31 Nasal Cannula 2.0 Nasal Cannula 2.0 07/17/19 04:00 97.9 96 20 146/73 (97) 100 07/17/19 04:00 102 07/17/19 00:00 92 07/17/19 00:00 98.2 102 22 128/77 (94) 100 07/16/19 21:00 Nasal Cannula 2.0 Nasal Cannula 2.0 07/16/19 20:00 99.9 105 20 147/71 (96) 100 07/16/19 20:00 105 07/16/19 15:44 92 07/16/19 15:33 98.2 93 21 104/58 (73) 100 07/16/19 12:00 98 07/16/19 12:00 97.7 96 20 132/71 (91) 100 07/16/19 09:00 Nasal Cannula 2.0 Nasal Cannula 2.0 Intake and Output 07/16/19 07/17/19 19:00 07:00 Intake Total 995 ml 705 ml Output Total 220 ml 75 ml Balance 775 ml 630 ml Intake Free Water 80 ml 100 ml IV Total 495 ml 220 ml Tube Feeding 420 ml 385 ml Output Stool Total 220 ml 75 ml # Voids 1 # Bowel Movements 1 Laboratory Tests 07/16/19 16:35: Troponin I 0.240H 07/16/19 18:45: Troponin I 0.248H 07/17/19 03:30: White Blood Count 13.8H, Red Blood Count 2.82L, Hemoglobin 8.6L, Hematocrit 25.9L, Mean Corpuscular Volume 92, Mean Corpuscular Hemoglobin 30.5, Mean Corpuscular Hemoglobin Concent 33.1, Red Cell Distribution Width 13.5, Platelet Count 275, Mean Platelet Volume 8.1, Neutrophils (%) (Auto) 73.3, Lymphocytes (% ) (Auto) 15.6L, Monocytes (%) (Auto) 8.6, Eosinophils (%) (Auto) 2.1, Basophils (%) (Auto) 0.4, Sodium Level 141, Potassium Level 3.3L, Chloride Level 102, Carbon Dioxide Level 27, Anion Gap 12, Blood Urea Nitrogen 68H, Creatinine 3.8H , Estimat Glomerular Filtration Rate 13.6, Glucose Level 147H, Calcium Level 10.3H, Phosphorus Level 4.0, Magnesium Level 2.4, Total Bilirubin 0.6, Aspartate Amino Transf (AST/SGOT) 60H, Alanine Aminotransferase (ALT/SGPT) 49, Alkaline Phosphatase 159H, Total Protein 6.5, Albumin 3.3L, Globulin 3.2, Albumin/Globulin Ratio 1.0 Height (Feet): 5 Height (Inches): 3.00 Weight (Pounds): 129 General Appearance: no apparent distress EENT: normal ENT inspection Neck: supple Cardiovascular: normal rate Respiratory/Chest: decreased breath sounds Abdomen: normal bowel sounds, non tender, soft Extremities: non-tender Jun Mena MD Jul 17, 2019 08:59
--- NOTE | 2019-07-17 09:16 | NUR ---
NURSE NOTES: stool was sent for cdiff. will continue to monitor.
--- NOTE | 2019-07-17 09:16 | Urology Progress Note ---
Assessment/Plan Status: stable Assessment/Plan: 1. Hematuria, which was previously gross and now microscopic. 2. End-stage renal disease, on hemodialysis. 3. Urinary retention history, now with incontinence. 4. Probable neurogenic bladder. 5. Pyuria. 6. Proteinuria. 7. History of acute kidney injury. 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 on blood cx Subjective Allergies: Coded Allergies: No Known Allergies (Unverified , 06/24/19) Subjective all noted, urinary incontinence, urine reported grossly non-bloody Objective Last 24 Hour Vital Signs Date Time Temp Pulse Resp B/P (MAP) Pulse Ox O2 Delivery O2 Flow Rate FiO2 07/17/19 08:00 98.4 94 18 137/77 (97) 100 07/17/19 07:31 Nasal Cannula 2.0 Nasal Cannula 2.0 07/17/19 04:00 97.9 96 20 146/73 (97) 100 07/17/19 04:00 102 07/17/19 00:00 92 07/17/19 00:00 98.2 102 22 128/77 (94) 100 07/16/19 21:00 Nasal Cannula 2.0 Nasal Cannula 2.0 07/16/19 20:00 99.9 105 20 147/71 (96) 100 07/16/19 20:00 105 07/16/19 15:44 92 07/16/19 15:33 98.2 93 21 104/58 (73) 100 07/16/19 12:00 98 07/16/19 12:00 97.7 96 20 132/71 (91) 100 Intake and Output 07/16/19 07/17/19 19:00 07:00 Intake Total 995 ml 705 ml Output Total 220 ml 75 ml Balance 775 ml 630 ml Intake Free Water 80 ml 100 ml IV Total 495 ml 220 ml Tube Feeding 420 ml 385 ml Output Stool Total 220 ml 75 ml # Voids 1 # Bowel Movements 1 Microbiology Date/Time Source Procedure Growth Status 07/14/19 12:00 Blood Blood Culture - Preliminary NO GROWTH AFTER 48 HOURS Resulted 07/14/19 12:30 Nasal Nares - Final Complete 07/14/19 12:30 Nasal Nares - Final Complete 07/14/19 12:00 Rectum - Final NO CARBAPENEM-RESISTANT ENTEROBACTERI... Complete Current Medications Medications (Trade) Dose Ordered Sig/Joan Route PRN Reason Start Time Stop Time Status Last Admin Dose Admin Acetaminophen (Tylenol) 650 mg Q4H PRN ORAL Mild Pain (Pain Scale 1-3) 07/14/19 14:45 08/13/19 14:44 07/15/19 21:17 Atorvastatin Calcium (Lipitor) 10 mg QHS GT 07/14/19 21:00 10/12/19 20:59 07/15/19 21:02 Azithromycin 500 mg/Sodium Chloride 275 ml @ 275 mls/hr DAILY IV 07/15/19 09:00 07/22/19 08:59 07/17/19 08:17 Chlorhexidine Gluconate (Cari-Hex 2%) 1 applic DAILY@2000 TOPIC 07/15/19 20:00 10/13/19 19:59 07/16/19 21:48 Dextrose (Dextrose 50%) 25 ml Q30M PRN IV Hypoglycemia 07/14/19 14:45 10/12/19 14:44 Dextrose (Dextrose 50%) 50 ml Q30M PRN IV Hypoglycemia 07/14/19 14:45 10/12/19 14:44 Epoetin Dion (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)) 4,000 unit MON-MON-MON SUBQ 07/17/19 21:00 10/15/19 20:59 Furosemide (Lasix) 80 mg DAILY IV 07/14/19 16:00 07/17/19 15:59 07/17/19 08:18 Heparin Sodium (Porcine) (Heparin 5000 units/ml) 5,000 units EVERY 12 HOURS SUBQ 07/14/19 21:00 08/28/19 20:59 07/17/19 08:20 Hydralazine HCl (Apresoline) 10 mg Q4H PRN IV For High Blood Pressure 07/14/19 15:30 10/12/19 15:29 Lactobacillus Acidophilus (Culturelle) 1 tab Q12HR GT 07/15/19 12:14 10/13/19 12:13 07/17/19 08:17 Morphine Sulfate (Morphine Sulfate) 2 mg Q4H PRN IVP Severe Pain (Pain Scale 7-10) 07/14/19 15:00 07/21/19 14:59 07/15/19 10:33 Ondansetron HCl (Zofran) 4 mg Q6H PRN IVP Nausea & Vomiting 07/14/19 14:45 08/13/19 14:44 Piperacillin Sod/ Tazobactam Sod 2.25 gm/Sodium Chloride 110 ml @ 220 mls/hr Q8HR IVPB 07/14/19 22:00 07/21/19 21:59 07/17/19 05:56 Potassium Chloride (K-Dur) 40 meq ONCE ORAL 07/17/19 09:00 07/17/19 10:00 07/17/19 08:19 Vancomycin HCl (Firvanq) 125 mg Q6HR GT 07/16/19 18:00 07/23/19 11:59 07/17/19 05:57 Vancomycin HCl (Vanco rx to dose) 1 ea DAILY PRN MISC Per rx protocol 07/14/19 14:45 08/13/19 14:44 Laboratory Tests 07/16/19 16:35: Troponin I 0.240H 07/16/19 18:45: Troponin I 0.248H 07/17/19 03:30: White Blood Count 13.8H, Red Blood Count 2.82L, Hemoglobin 8.6L, Hematocrit 25.9L, Mean Corpuscular Volume 92, Mean Corpuscular Hemoglobin 30.5, Mean Corpuscular Hemoglobin Concent 33.1, Red Cell Distribution Width 13.5, Platelet Count 275, Mean Platelet Volume 8.1, Neutrophils (%) (Auto) 73.3, Lymphocytes (% ) (Auto) 15.6L, Monocytes (%) (Auto) 8.6, Eosinophils (%) (Auto) 2.1, Basophils (%) (Auto) 0.4, Sodium Level 141, Potassium Level 3.3L, Chloride Level 102, Carbon Dioxide Level 27, Anion Gap 12, Blood Urea Nitrogen 68H, Creatinine 3.8H , Estimat Glomerular Filtration Rate 13.6, Glucose Level 147H, Calcium Level 10.3H, Phosphorus Level 4.0, Magnesium Level 2.4, Total Bilirubin 0.6, Aspartate Amino Transf (AST/SGOT) 60H, Alanine Aminotransferase (ALT/SGPT) 49, Alkaline Phosphatase 159H, Total Protein 6.5, Albumin 3.3L, Globulin 3.2, Albumin/Globulin Ratio 1.0 Height (Feet): 5 Height (Inches): 3.00 Weight (Pounds): 129 Objective exam stable Omar Mckoy MD Jul 17, 2019 09:16
--- NOTE | 2019-07-17 11:58 | Surgery Progress Note ---
Surgery Progress Note Subjective Additional Comments wbc trending down troponin noted states she feels okay comfortable appearing imaging reviewed covid negative pending c diff Objective Last 24 Hour Vital Signs Date Time Temp Pulse Resp B/P (MAP) Pulse Ox O2 Delivery O2 Flow Rate FiO2 07/17/19 08:00 98.4 94 18 137/77 (97) 100 07/17/19 07:31 Nasal Cannula 2.0 Nasal Cannula 2.0 07/17/19 07:27 103 07/17/19 04:00 97.9 96 20 146/73 (97) 100 07/17/19 04:00 102 07/17/19 00:00 92 07/17/19 00:00 98.2 102 22 128/77 (94) 100 07/16/19 21:00 Nasal Cannula 2.0 Nasal Cannula 2.0 07/16/19 20:00 99.9 105 20 147/71 (96) 100 07/16/19 20:00 105 07/16/19 15:44 92 07/16/19 15:33 98.2 93 21 104/58 (73) 100 07/16/19 12:00 98 07/16/19 12:00 97.7 96 20 132/71 (91) 100 I&O Intake and Output 07/16/19 07/17/19 19:00 07:00 Intake Total 995 ml 705 ml Output Total 220 ml 75 ml Balance 775 ml 630 ml Intake Free Water 80 ml 100 ml IV Total 495 ml 220 ml Tube Feeding 420 ml 385 ml Output Stool Total 220 ml 75 ml # Voids 1 # Bowel Movements 1 Dressing: dry Wound: other Drains: other Cardiovascular: RSR Respiratory: decreased breath sounds Abdomen: soft, non-tender, present bowel sounds Extremities: no tenderness, no cyanosis Laboratory Tests Test 07/16/19 16:35 07/16/19 18:45 07/17/19 03:30 Troponin I 0.240 ng/mL (0.000-0.056) 0.248 ng/mL (0.000-0.056) White Blood Count 13.8 K/UL (4.8-10.8) H Red Blood Count 2.82 M/UL (4.20-5.40) L Hemoglobin 8.6 G/DL (12.0-16.0) L Hematocrit 25.9 % (37.0-47.0) L Mean Corpuscular Volume 92 FL (80-99) Mean Corpuscular Hemoglobin 30.5 PG (27.0-31.0) Mean Corpuscular Hemoglobin Concent 33.1 G/DL (32.0-36.0) Red Cell Distribution Width 13.5 % (11.6-14.8) Platelet Count 275 K/UL (150-450) Mean Platelet Volume 8.1 FL (6.5-10.1) Neutrophils (%) (Auto) 73.3 % (45.0-75.0) Lymphocytes (%) (Auto) 15.6 % (20.0-45.0) L Monocytes (%) (Auto) 8.6 % (1.0-10.0) Eosinophils (%) (Auto) 2.1 % (0.0-3.0) Basophils (%) (Auto) 0.4 % (0.0-2.0) Sodium Level 141 MMOL/L (136-145) Potassium Level 3.3 MMOL/L (3.5-5.1) L Chloride Level 102 MMOL/L (98-107) Carbon Dioxide Level 27 MMOL/L (21-32) Anion Gap 12 mmol/L (5-15) Blood Urea Nitrogen 68 mg/dL (7-18) H Creatinine 3.8 MG/DL (0.55-1.30) H Estimat Glomerular Filtration Rate 13.6 mL/min (>60) Glucose Level 147 MG/DL (74-106) H Calcium Level 10.3 MG/DL (8.5-10.1) H Phosphorus Level 4.0 MG/DL (2.5-4.9) Magnesium Level 2.4 MG/DL (1.8-2.4) Total Bilirubin 0.6 MG/DL (0.2-1.0) Aspartate Amino Transf (AST/SGOT) 60 U/L (15-37) H Alanine Aminotransferase (ALT/SGPT) 49 U/L (12-78) Alkaline Phosphatase 159 U/L (46-116) H Total Protein 6.5 G/DL (6.4-8.2) Albumin 3.3 G/DL (3.4-5.0) L Globulin 3.2 g/dL Albumin/Globulin Ratio 1.0 (1.0-2.7) Plan Problems: (1) Decubitus skin ulcer Assessment & Plan: Pt presented on admission with multiple pressure injuries. Unstageable pressure injury R shoulder(L)3.8cm x (W)3.3cm. Base of wound is 100 % necrotic and dry. Marginal erythema along borders. No erythema or induration periwound. Reabsorbed DTPI R Humerus. Base of injury has dry peeling brown skin with underlying dry pink epithelial. R elbow pressure injury has resolved. Full thickness pressure injury R hip (L)7cm x (W)13.1cm. Base of wound is 70% fibrinous slough,10% necrotic ,20% moist pink granulation. Edges are macerated.Small amt seropurulent non-odorous exudate noted. NO erythema , induration or elevation in skin temp periwound. Opened DTPI Sacrum(L)9cm x (W)15cm. Base of wound is purple,indurated with an open wound at sacrococcygeal which has 100% slough(L)1.6cm x (W)1cm. Surrounding Skin hypopigmentation with areas of excoriation extending into perineum and perianal area. Unstageable pressure injury lateral R malleolus(L)2.5cm x (W)3cm. Base of wound is 100% dry necrosis. Edges adherent to base of wound. No erythema induration or fluctuance periwound. Reabsorbing DTPI R heel. Base of Heel is boggy,non-blanching erythema with dry peeling brown skin along edges.(L)4.2cm x (W)6cm. Resolving DTPI distal/lateral R foot. Stable dry brown eschar without fluctuance or induration(L)1cm x (W)1.5cm. Resolving DTPI Lateral R 5th metatarsal.Base of injury is dry,brown without fluctuance or induration.(L)0.6cm x (W)1cm Unstageable pressure injury L Hallux(L)4cm x (W)2.7cm. Base of wound is 80% necrotic,20% slough with marginal erythema along borders. No odor or exudate noted. DTPI L Heel. Base of injury maroon and fluctuant. Periwound is boggy but blanchable(L)5.5cm x (W)6.5cm. Tx.Plan: Cleanse R shoulder with Saline. Apply Therahoney. Apply Cavilon Periwound. Cover with Optifoam drsg. Change every 3 days and prn. Cleanse R hip with Saline. Apply Therahoney.Apply Moisture Barrier Periwound. Cover with Optifoam drsg. Change Daily and prn. Cleanse Sacrum with Saline. Apply Therahoney. Apply Moisture Barrier Paste periwound. Cover with Optifoam drsg. Change every 3 days and prn. Apply Moisture Barrier Paste to perineum and perianal areas with each incontinence care. Apply Betadine to R heel,Distal/lateral R foot ,R5th metatarsal. Cover with Optifoam drsg. Change every 3 days and prn. Apply Betadine to L hallux,and L heel. Cover each site with Optifoam drsg. Change every 3 days and prn. Reposition at least every 2hours or as tolerated. Place pillow between knees. off-load heels with pillow. (2) Fever Assessment & Plan: covid negative pending c diff labs noted trend abx as per ID cxr reviewed (3) Protein calorie malnutrition Assessment & Plan: DAILY ESTIMATED NEEDS: Needs based on Wounds, HD 51.8kg 30-35 kcals/kg [id number] total kcals 1.25-1.8 g protein/kg 65-93 g total protein Fluids per MD mL/kg . total fluid mLs NUTRITION DIAGNOSIS: * Increased kcal and prot needs r/t wound healing and renal failure as evidenced by w/ multiple pressure injuries, pending re-evaluation, s/p recent PermCath placement, HD dependent. * Swallowing difficulty R/T dysphagia as evidenced by s/p recent PEG placement, on GT feeding. CURRENT TF:Jevity 1.2 @ 50ml/hr x 24 hrs ENTERAL NUTRITION RECOMMENDATIONS: Nepro @ 38ml/hr x 24 hrs to provide 912ml, 1642kcal, 74g prot, 663ml free water - Rec TF change to Nepro- HD dependent - Initiate Nepro @ 28ml/hr x 6 hrs, increase to goal as tolerated. - HOB over 30 degrees/ water flush per MD ADDITIONAL RECOMMENDATIONS: 1) Calibrated bedscale wt 2) Wound Care: add Nephrovite x 1 add Saw 1ptk BID when TF well tolerated @ goal 3) Check phos and mag levels 4) Monitor BGs, need for nISS 5) Add probiotics: h/o LBM prev adm, prolonged use of abx (4) Pressure ulcer Anshul Nava Jul 17, 2019 11:58
--- NOTE | 2019-07-17 13:10 | General Progress Note ---
Assessment/Plan Status: stable Assessment/Plan: 89-year-old female with PMH of acute renal failure, s/p right chest wall permacath on HD, dysphasia s/p PEG, multiple pressure wounds, HTN, h/o AMS was recently discharged from this facility for KAREN/rhabdo, unwitnessed fall, was sent to longterm and returned here due to fevers. Patient was admitted for persistent fevers and for sepsis/COVID 19 rule out. ED course: BMP 8000, troponin 0 0.347, patient given for septic work-up and will be admitted for further treatment. #Sepsis, suspect #HCAP -continue inpatient level of care -CXR w/mild interstitial edema -follow up cultures -COVID-19 NEGATIVE -d/c Droplet precautions, transfer to tele -ID following: cont. Azithro, Zosyn and IV Vanco #Diarrhea #leukocytosis -c diff pending -ID following - PO vanco for now #ESRD on HD -s/p permcath -HD per renal #Hypokalemia -replaced, ctm, replace PRN #HTN #elevated troponin #BNP elevated #Sinus tachycardia -trops stable 0.254, 0.240, 0.248 -likely due to demand ischemia and ESRD -ASA, statin -s/p Lasix 80 mg IV x3 days, last dose today -hydralazine PRN for SBP >160 -Cardio following #Hematuria #Possible Urinary retention. #Possible neurogenic bladder. -UA w/ evidence of RBCs, 4+ blood -Urology recs appreciated #Dysphagia #Diarrhea -s/p PEG -cont tube feeds with reduced rate + Imodium -Dietary and GI consulted #Pressure wounds -Wound care consulted, recs appreciated DVT ppx - heparin sc Time spent on encounter: 35 mins, >50% on counseling, coordination of care. Time of note doesn't reflect time of encounter. Subjective Allergies: Coded Allergies: No Known Allergies (Unverified , 06/24/19) Subjective F/u for sepsis, HCAP, fevers. COVID NEGATIVE. No acute events overnight. Pt at b/l per nurse. Objective Last 24 Hour Vital Signs Date Time Temp Pulse Resp B/P (MAP) Pulse Ox O2 Delivery O2 Flow Rate FiO2 07/17/19 12:00 98.2 102 21 145/78 (100) 100 07/17/19 08:00 98.4 94 18 137/77 (97) 100 07/17/19 07:31 Nasal Cannula 2.0 Nasal Cannula 2.0 07/17/19 07:27 103 07/17/19 04:00 97.9 96 20 146/73 (97) 100 07/17/19 04:00 102 07/17/19 00:00 92 07/17/19 00:00 98.2 102 22 128/77 (94) 100 07/16/19 21:00 Nasal Cannula 2.0 Nasal Cannula 2.0 07/16/19 20:00 99.9 105 20 147/71 (96) 100 07/16/19 20:00 105 07/16/19 15:44 92 07/16/19 15:33 98.2 93 21 104/58 (73) 100 Intake and Output 07/16/19 07/17/19 19:00 07:00 Intake Total 995 ml 705 ml Output Total 220 ml 75 ml Balance 775 ml 630 ml Intake Free Water 80 ml 100 ml IV Total 495 ml 220 ml Tube Feeding 420 ml 385 ml Output Stool Total 220 ml 75 ml # Voids 1 # Bowel Movements 1 Laboratory Tests 07/16/19 16:35: Troponin I 0.240H 07/16/19 18:45: Troponin I 0.248H 07/17/19 03:30: White Blood Count 13.8H, Red Blood Count 2.82L, Hemoglobin 8.6L, Hematocrit 25.9L, Mean Corpuscular Volume 92, Mean Corpuscular Hemoglobin 30.5, Mean Corpuscular Hemoglobin Concent 33.1, Red Cell Distribution Width 13.5, Platelet Count 275, Mean Platelet Volume 8.1, Neutrophils (%) (Auto) 73.3, Lymphocytes (% ) (Auto) 15.6L, Monocytes (%) (Auto) 8.6, Eosinophils (%) (Auto) 2.1, Basophils (%) (Auto) 0.4, Sodium Level 141, Potassium Level 3.3L, Chloride Level 102, Carbon Dioxide Level 27, Anion Gap 12, Blood Urea Nitrogen 68H, Creatinine 3.8H , Estimat Glomerular Filtration Rate 13.6, Glucose Level 147H, Calcium Level 10.3H, Phosphorus Level 4.0, Magnesium Level 2.4, Total Bilirubin 0.6, Aspartate Amino Transf (AST/SGOT) 60H, Alanine Aminotransferase (ALT/SGPT) 49, Alkaline Phosphatase 159H, Total Protein 6.5, Albumin 3.3L, Globulin 3.2, Albumin/Globulin Ratio 1.0 Height (Feet): 5 Height (Inches): 3.00 Weight (Pounds): 129 Objective General Appearance: alert, awake, in NAD, AOx1 at b/l Neck: supple Cardiovascular: normal rate, regular rhythm Respiratory/Chest: lungs clear, normal breath sounds Abdomen: non tender, soft, +PEG c/d/i Ext: contracted b/l, no edema Lisa Brewster M.D. Jul 17, 2019 13:09
--- NOTE | 2019-07-17 13:10 | Nephrology Progress Note ---
Assessment/Plan Plan #Acute renal failure recent started on HD in 06/2018- #Sepsis #Dementia #HTN #elevated troponin #Dysphagia s/p PEG #urinary retention - next HD today - lasix 80 IV daily - cardiology eval - monitor UOP - urology eval - continue antibiotics- Azithro, Zosyn and PO Vanco - follow blood cx - check iron panel, ferritin-> ferritin supersaturated - startrf epogen 4K TIW - check PTH, vitamin D pending - monitor BMP, mag and phos daily for now Subjective Subjective Plan for HD today K low- WBC downtrending BP stable breathing stable on NC Objective Objective Last 24 Hour Vital Signs Date Time Temp Pulse Resp B/P (MAP) Pulse Ox O2 Delivery O2 Flow Rate FiO2 07/17/19 12:00 98.2 102 21 145/78 (100) 100 07/17/19 08:00 98.4 94 18 137/77 (97) 100 07/17/19 07:31 Nasal Cannula 2.0 Nasal Cannula 2.0 07/17/19 07:27 103 07/17/19 04:00 97.9 96 20 146/73 (97) 100 07/17/19 04:00 102 07/17/19 00:00 92 07/17/19 00:00 98.2 102 22 128/77 (94) 100 07/16/19 21:00 Nasal Cannula 2.0 Nasal Cannula 2.0 07/16/19 20:00 99.9 105 20 147/71 (96) 100 07/16/19 20:00 105 07/16/19 15:44 92 07/16/19 15:33 98.2 93 21 104/58 (73) 100 Intake and Output 07/16/19 07/17/19 19:00 07:00 Intake Total 995 ml 705 ml Output Total 220 ml 75 ml Balance 775 ml 630 ml Intake Free Water 80 ml 100 ml IV Total 495 ml 220 ml Tube Feeding 420 ml 385 ml Output Stool Total 220 ml 75 ml # Voids 1 # Bowel Movements 1 Laboratory Tests 07/16/19 16:35: Troponin I 0.240H 07/16/19 18:45: Troponin I 0.248H 07/17/19 03:30: White Blood Count 13.8H, Red Blood Count 2.82L, Hemoglobin 8.6L, Hematocrit 25.9L, Mean Corpuscular Volume 92, Mean Corpuscular Hemoglobin 30.5, Mean Corpuscular Hemoglobin Concent 33.1, Red Cell Distribution Width 13.5, Platelet Count 275, Mean Platelet Volume 8.1, Neutrophils (%) (Auto) 73.3, Lymphocytes (% ) (Auto) 15.6L, Monocytes (%) (Auto) 8.6, Eosinophils (%) (Auto) 2.1, Basophils (%) (Auto) 0.4, Sodium Level 141, Potassium Level 3.3L, Chloride Level 102, Carbon Dioxide Level 27, Anion Gap 12, Blood Urea Nitrogen 68H, Creatinine 3.8H , Estimat Glomerular Filtration Rate 13.6, Glucose Level 147H, Calcium Level 10.3H, Phosphorus Level 4.0, Magnesium Level 2.4, Total Bilirubin 0.6, Aspartate Amino Transf (AST/SGOT) 60H, Alanine Aminotransferase (ALT/SGPT) 49, Alkaline Phosphatase 159H, Total Protein 6.5, Albumin 3.3L, Globulin 3.2, Albumin/Globulin Ratio 1.0 Height (Feet): 5 Height (Inches): 3.00 Weight (Pounds): 129 Objective General: NAD, A&O x 1, self only HEENT: NCAT, EOMi, PEERLA, nares patent and no symmetrical, no tonsillar exudates, mucous membranes moist CV: RRR, no murmurs, rubs, or gallops Pulm: CTAB, No wheezes, rhonchi, or rales, no accessory muscle usage or conversational dyspnea GI: Soft, nontender, nondistended, bowel sounds present, PEG tube in place, C/D/ I Neuro: CN 2-12 grossly intact bilaterally, no focal signs. Ext: No lower extremity edema bilaterally, LE contracted bilaterally Skin: Multiple pressure ulcers noted on hip/heels Lymph: No lymphadenopathy in upper extremity and lower extremity Royr Oconnor M.D. Jul 17, 2019 13:10
--- NOTE | 2019-07-17 13:21 | NUR ---
*-* DISCHARGE PLANNING *-* PATIENT HAS BEEN REFERRED BACK TO: [facility] P: [phone] F: [phone] EFAX: [phone]
--- NOTE | 2019-07-17 16:43 | Infectious Diseases Prog Note ---
Assessment/Plan Assessment/Plan ASSESSMENT AND PLAN: 1. sepsis, fevers, leukocytosis, ? pna, diarrhea, covid-19 test negative, ? right hip wound infection - vancomycin iv and po, zosyn, discontinue azithromycin - day # 3 abx - wound care per surgery - monitor labs, f/u on c.diff. testing if done - monitor chest x-ray 2. The patient has end-stage renal disease, on hemodialysis and PermCath. 3. Skin care protocol. 4. Anemia. 5. The patient has history of dysphagia, on G-tube. 6. Aspiration risk. 7. Hypertension. 8. Altered mental status. 9. History of Strep viridans bacteremia. 10. Hypertension, treatment per primary care team. 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 12. History of non-STEMI and CAD. 13. History of rhabdomyolysis. 14. History of acute renal failure, on dialysis. 15. Coronary artery disease. 16. No known drug allergies. 17. Social history negative. 18. Family history noncontributory. 19. MAR was noted. 20. Case discussed with RN. 21. Isolation in the acute care. 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 Subjective Constitutional: Denies: fever HEENT: Reports: congestion - less Respiratory: Reports: shortness of breath - less Cardiovascular: Denies: chest pain Gastrointestinal/Abdominal: Reports: other - + diarrhea - rectal ube ; Denies : nausea, vomiting Genitourinary: Reports: other - no hargrove Neurologic: Reports: weakness Psychiatric: Reports: other - NA Skin: Denies: rash Hematologic: Denies: bleeding Musculoskeletal: Denies: pain Allergies: Coded Allergies: No Known Allergies (Unverified , 06/24/19) Objective Vital Signs Last 24 Hour Vital Signs Date Time Temp Pulse Resp B/P (MAP) Pulse Ox O2 Delivery O2 Flow Rate FiO2 07/17/19 16:00 98.1 102 21 157/95 (115) 100 07/17/19 12:00 98.2 102 21 145/78 (100) 100 07/17/19 11:34 100 07/17/19 08:00 98.4 94 18 137/77 (97) 100 07/17/19 07:31 Nasal Cannula 2.0 Nasal Cannula 2.0 07/17/19 07:27 103 07/17/19 04:00 97.9 96 20 146/73 (97) 100 07/17/19 04:00 102 07/17/19 00:00 92 07/17/19 00:00 98.2 102 22 128/77 (94) 100 07/16/19 21:00 Nasal Cannula 2.0 Nasal Cannula 2.0 07/16/19 20:00 99.9 105 20 147/71 (96) 100 07/16/19 20:00 105 Height (Feet): 5 Height (Inches): 3.00 Weight (Pounds): 129 General Appearance: no acute distress HEENT: normocephalic, atraumatic, anicteric, mucous membranes moist Respiratory/Chest: crackles/rales, rhonchi - bilaterally Cardiovascular: normal rate, regular rhythm, no gallop/murmur, no JVD Abdomen: normal bowel sounds, soft, non tender, no organomegaly, non distended Genitourinary: other - no hargrove Extremities: no cyanosis Skin: no rash Neurologic/Psychiatric: 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 Findings: Pulmonary vessel congestion noted. Heart is enlarged. Interstitial edema is mild. Bones are osteopenic. IMPRESSION: Mild interstitial edema Microbiology Date/Time Source Procedure Growth Status 07/14/19 12:00 Blood Blood Culture - Preliminary NO GROWTH AFTER 48 HOURS Resulted 07/14/19 12:30 Nasal Nares - Final Complete 07/14/19 12:30 Nasal Nares - Final Complete 07/14/19 12:00 Rectum - Final NO CARBAPENEM-RESISTANT ENTEROBACTERI... Complete Laboratory Tests Test 07/16/19 16:35 07/16/19 18:45 07/17/19 03:30 Troponin I 0.240 ng/mL (0.000-0.056) 0.248 ng/mL (0.000-0.056) White Blood Count 13.8 K/UL (4.8-10.8) H Red Blood Count 2.82 M/UL (4.20-5.40) L Hemoglobin 8.6 G/DL (12.0-16.0) L Hematocrit 25.9 % (37.0-47.0) L Mean Corpuscular Volume 92 FL (80-99) Mean Corpuscular Hemoglobin 30.5 PG (27.0-31.0) Mean Corpuscular Hemoglobin Concent 33.1 G/DL (32.0-36.0) Red Cell Distribution Width 13.5 % (11.6-14.8) Platelet Count 275 K/UL (150-450) Mean Platelet Volume 8.1 FL (6.5-10.1) Neutrophils (%) (Auto) 73.3 % (45.0-75.0) Lymphocytes (%) (Auto) 15.6 % (20.0-45.0) L Monocytes (%) (Auto) 8.6 % (1.0-10.0) Eosinophils (%) (Auto) 2.1 % (0.0-3.0) Basophils (%) (Auto) 0.4 % (0.0-2.0) Sodium Level 141 MMOL/L (136-145) Potassium Level 3.3 MMOL/L (3.5-5.1) L Chloride Level 102 MMOL/L (98-107) Carbon Dioxide Level 27 MMOL/L (21-32) Anion Gap 12 mmol/L (5-15) Blood Urea Nitrogen 68 mg/dL (7-18) H Creatinine 3.8 MG/DL (0.55-1.30) H Estimat Glomerular Filtration Rate 13.6 mL/min (>60) Glucose Level 147 MG/DL (74-106) H Calcium Level 10.3 MG/DL (8.5-10.1) H Phosphorus Level 4.0 MG/DL (2.5-4.9) Magnesium Level 2.4 MG/DL (1.8-2.4) Total Bilirubin 0.6 MG/DL (0.2-1.0) Aspartate Amino Transf (AST/SGOT) 60 U/L (15-37) H Alanine Aminotransferase (ALT/SGPT) 49 U/L (12-78) Alkaline Phosphatase 159 U/L (46-116) H Total Protein 6.5 G/DL (6.4-8.2) Albumin 3.3 G/DL (3.4-5.0) L Globulin 3.2 g/dL Albumin/Globulin Ratio 1.0 (1.0-2.7) Current Medications Medications (Trade) Dose Ordered Sig/Joan Route PRN Reason Start Time Stop Time Status Last Admin Dose Admin Acetaminophen (Tylenol) 650 mg Q4H PRN ORAL Mild Pain (Pain Scale 1-3) 07/14/19 14:45 08/13/19 14:44 07/17/19 11:15 Atorvastatin Calcium (Lipitor) 10 mg QHS GT 07/14/19 21:00 10/12/19 20:59 07/15/19 21:02 Azithromycin 500 mg/Sodium Chloride 275 ml @ 275 mls/hr DAILY IV 07/15/19 09:00 07/22/19 08:59 07/17/19 08:17 Chlorhexidine Gluconate (Cari-Hex 2%) 1 applic DAILY@2000 TOPIC 07/15/19 20:00 10/13/19 19:59 07/16/19 21:48 Dextrose (Dextrose 50%) 25 ml Q30M PRN IV Hypoglycemia 07/14/19 14:45 10/12/19 14:44 Dextrose (Dextrose 50%) 50 ml Q30M PRN IV Hypoglycemia 07/14/19 14:45 10/12/19 14:44 Epoetin Dion (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)) 4,000 unit MON-MON-MON SUBQ 07/17/19 21:00 10/15/19 20:59 Heparin Sodium (Porcine) (Heparin 5000 units/ml) 5,000 units EVERY 12 HOURS SUBQ 07/14/19 21:00 08/28/19 20:59 07/17/19 08:20 Hydralazine HCl (Apresoline) 10 mg Q4H PRN IV For High Blood Pressure 07/14/19 15:30 10/12/19 15:29 Lactobacillus Acidophilus (Culturelle) 1 tab Q12HR GT 07/15/19 12:14 10/13/19 12:13 07/17/19 08:17 Morphine Sulfate (Morphine Sulfate) 2 mg Q4H PRN IVP Severe Pain (Pain Scale 7-10) 07/14/19 15:00 07/21/19 14:59 07/15/19 10:33 Ondansetron HCl (Zofran) 4 mg Q6H PRN IVP Nausea & Vomiting 07/14/19 14:45 08/13/19 14:44 Piperacillin Sod/ Tazobactam Sod 2.25 gm/Sodium Chloride 110 ml @ 220 mls/hr Q8HR IVPB 07/14/19 22:00 07/21/19 21:59 07/17/19 14:15 Vancomycin HCl (Firvanq) 125 mg Q6HR GT 07/16/19 18:00 07/23/19 11:59 07/17/19 11:16 Vancomycin HCl (Vanco rx to dose) 1 ea DAILY PRN MISC Per rx protocol 07/14/19 14:45 08/13/19 14:44 Ana Rosado MD Jul 17, 2019 16:43
--- NOTE | 2019-07-17 18:17 | Neurology Progress Note ---
Interim History Interim History ROS Limited/Unobtainable: No Interim History covid neg, able to track Objective Physical Exam Last Vital Signs Date Time Temp Pulse Resp B/P (MAP) Pulse Ox O2 Delivery O2 Flow Rate FiO2 07/17/19 16:00 98 07/17/19 16:00 98.1 21 157/95 (115) 100 07/17/19 07:31 Nasal Cannula 2.0 Nasal Cannula 2.0 Laboratory Tests Test 07/16/19 18:45 07/17/19 03:30 Troponin I 0.248 ng/mL (0.000-0.056) White Blood Count 13.8 K/UL (4.8-10.8) H Red Blood Count 2.82 M/UL (4.20-5.40) L Hemoglobin 8.6 G/DL (12.0-16.0) L Hematocrit 25.9 % (37.0-47.0) L Mean Corpuscular Volume 92 FL (80-99) Mean Corpuscular Hemoglobin 30.5 PG (27.0-31.0) Mean Corpuscular Hemoglobin Concent 33.1 G/DL (32.0-36.0) Red Cell Distribution Width 13.5 % (11.6-14.8) Platelet Count 275 K/UL (150-450) Mean Platelet Volume 8.1 FL (6.5-10.1) Neutrophils (%) (Auto) 73.3 % (45.0-75.0) Lymphocytes (%) (Auto) 15.6 % (20.0-45.0) L Monocytes (%) (Auto) 8.6 % (1.0-10.0) Eosinophils (%) (Auto) 2.1 % (0.0-3.0) Basophils (%) (Auto) 0.4 % (0.0-2.0) Sodium Level 141 MMOL/L (136-145) Potassium Level 3.3 MMOL/L (3.5-5.1) L Chloride Level 102 MMOL/L (98-107) Carbon Dioxide Level 27 MMOL/L (21-32) Anion Gap 12 mmol/L (5-15) Blood Urea Nitrogen 68 mg/dL (7-18) H Creatinine 3.8 MG/DL (0.55-1.30) H Estimat Glomerular Filtration Rate 13.6 mL/min (>60) Glucose Level 147 MG/DL (74-106) H Calcium Level 10.3 MG/DL (8.5-10.1) H Phosphorus Level 4.0 MG/DL (2.5-4.9) Magnesium Level 2.4 MG/DL (1.8-2.4) Total Bilirubin 0.6 MG/DL (0.2-1.0) Aspartate Amino Transf (AST/SGOT) 60 U/L (15-37) H Alanine Aminotransferase (ALT/SGPT) 49 U/L (12-78) Alkaline Phosphatase 159 U/L (46-116) H Total Protein 6.5 G/DL (6.4-8.2) Albumin 3.3 G/DL (3.4-5.0) L Globulin 3.2 g/dL Albumin/Globulin Ratio 1.0 (1.0-2.7) Head: normocophalic Neck: no rigidity EENT: benign Neurologic Exam Mental Status: awake Cranial Nerves III, IV, : PERRLA Objective Wakes up, tracks with eyes, tell me her name, withdraws all 4 Impression/Recommendations Problems: (1) Decubitus skin ulcer (2) Fever (3) Rhabdomyolysis (4) Elevated troponin (5) KAREN (acute kidney injury) (6) Fever (7) Elevated brain natriuretic peptide (BNP) level (8) ESRD (end stage renal disease) on dialysis (9) ESRD (end stage renal disease) on dialysis (10) Pressure ulcer (11) Protein calorie malnutrition (12) Dysphagia Status: stable Diagnostic Impression Acute encephalopathy, baseline dementia Sepsis Monitor neuro exam for improvement broad spectrum atb rule out covid Delirium precautions Sushil Stevenson MD Jul 17, 2019 18:17
--- NOTE | 2019-07-17 18:27 | NUR ---
NURSE NOTES: received patient A/A/Ox1, nonverbal. response to tactile stimuli. no personal belongings noted. wound photo taken and recorded. rectal tube inplaced. gtube feeding inplaced. no gastric residual noted. tolerating feeding well. permacath for HD clean and dry. IV access patent and intact. hob elevated, siderails are upx3, on P200 mattress. brakes and locked engaged. will cont to monitor.
--- NOTE | 2019-07-17 18:34 | NUR ---
TRANSFER TO FLOOR: Patient transferred to [facility] [place], per dr chopra'order. Report given to kaylee custodial aide. Belongings and medications given to kaylee. Family and or S/O informed of transfer.
--- NOTE | 2019-07-17 19:08 | NUR ---
HAND-OFF: Report given to adonay.
[2019-07-17] MEDS: Dyna-Hex 2% Top Sol 2oz TOPIC SCH (20:28)
[2019-07-17] MEDS: Epoetin Alfa-EPBX(ESRD on dialysis)4000 units/ml vial SUBQ SCH (21:06)
[2019-07-18] VITALS (7 sets, daily range): BP systolic 123–160; BP diastolic 60–77
[2019-07-18] MEDS: Vancomycin oral 125mg/2.5ml GT SCH ×3 (00:58→12:08)
[2019-07-18] MEDS: Piperacillin/Tazobactam 2.25 GM in NS 110 ML IVPB SCH ×3 (05:45→21:05)
[2019-07-18 06:46] LABS: HEMATOCRIT 26.4 % (37.0-47.0); HEMOGLOBIN 8.8 G/DL (12.0-16.0); MEAN CORPUSCULAR VOLUME 92 FL (80-99); PLATELET COUNT 298 K/UL (150-450); RED BLOOD COUNT 2.86 M/UL (4.20-5.40); RED CELL DISTRIBUTION WIDTH 13.8 % (11.6-14.8)
[2019-07-18 06:57] LABS: ANION GAP 14 mmol/L (5-15); BLOOD UREA NITROGEN 34 mg/dL (7-18); CARBON DIOXIDE 28 MMOL/L (21-32); CHLORIDE 106 MMOL/L (98-107); CREATININE 2.6 MG/DL (0.55-1.30); POTASSIUM 3.9 MMOL/L (3.5-5.1); SODIUM 147 MMOL/L (136-145)
--- NOTE | 2019-07-18 07:30 | NUR ---
NURSE NOTES: Received pt from [facility]. Pt is sleeping, pt has NC 2LMP. pt has intact iv acces LFA 22G SL. pt is on continues heart monitoring. Pt has g tube in place is running well. pt has rectal tube in place is working well. all needs attended, bed is locked and is in the lowest position, call light within easy reach. will continue to monitor.
--- NOTE | 2019-07-18 07:39 | NUR ---
HAND-OFF: Report given to Diaz Larose RN. Pt in stable condition.
--- NOTE | 2019-07-18 08:09 | Urology Progress Note ---
Assessment/Plan Status: stable Assessment/Plan: 1. Hematuria, which was previously gross and now microscopic. 2. End-stage renal disease, on hemodialysis. 3. Urinary retention history, now with incontinence. 4. Probable neurogenic bladder. 5. Pyuria. 6. Proteinuria. 7. History of acute kidney injury. 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 f/u on blood cx Subjective Allergies: Coded Allergies: No Known Allergies (Unverified , 06/24/19) Subjective all noted, urinary incontinence, urine reported grossly non-bloody Objective Last 24 Hour Vital Signs Date Time Temp Pulse Resp B/P (MAP) Pulse Ox O2 Delivery O2 Flow Rate FiO2 07/18/19 04:00 101.7 77 20 151/77 (101) 100 07/18/19 04:00 112 07/18/19 00:00 98.6 119 20 128/77 (94) 100 07/18/19 00:00 92 07/17/19 21:00 Nasal Cannula 2.0 Nasal Cannula 2.0 07/17/19 20:00 99.0 112 18 124/67 (86) 99 07/17/19 18:30 97.1 72 18 127/63 (84) 96 07/17/19 16:00 98 07/17/19 16:00 98.1 102 21 157/95 (115) 100 07/17/19 12:00 98.2 102 21 145/78 (100) 100 07/17/19 11:34 100 Intake and Output 07/17/19 07/18/19 19:00 07:00 Intake Total 940 ml Output Total 2250 ml Balance -1310 ml Intake Free Water 60 ml IV Total 495 ml Tube Feeding 385 ml Output Stool Total 250 ml Hemodialysis UF 2000 ml # Voids 1 # Bowel Movements 1 1 Microbiology Date/Time Source Procedure Growth Status 07/14/19 12:00 Blood Blood Culture - Preliminary NO GROWTH AFTER 72 HOURS Resulted 07/14/19 12:30 Nasal Nares - Final Complete 07/14/19 12:30 Nasal Nares - Final Complete 07/17/19 07:00 Stool Clostridium difficile Toxin Assay - Final Complete 07/14/19 12:00 Rectum - Final NO CARBAPENEM-RESISTANT ENTEROBACTERI... Complete Current Medications Medications (Trade) Dose Ordered Sig/Joan Route PRN Reason Start Time Stop Time Status Last Admin Dose Admin Acetaminophen (Tylenol) 650 mg Q4H PRN ORAL Mild Pain (Pain Scale 1-3) 07/14/19 14:45 08/13/19 14:44 07/17/19 11:15 Atorvastatin Calcium (Lipitor) 10 mg QHS GT 07/14/19 21:00 10/12/19 20:59 07/17/19 20:28 Chlorhexidine Gluconate (Cari-Hex 2%) 1 applic DAILY@2000 TOPIC 07/15/19 20:00 10/13/19 19:59 07/17/19 20:28 Dextrose (Dextrose 50%) 25 ml Q30M PRN IV Hypoglycemia 07/14/19 14:45 10/12/19 14:44 Dextrose (Dextrose 50%) 50 ml Q30M PRN IV Hypoglycemia 07/14/19 14:45 10/12/19 14:44 Epoetin Dion (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)) 4,000 unit MON-MON-MON SUBQ 07/17/19 21:00 10/15/19 20:59 07/17/19 21:06 Heparin Sodium (Porcine) (Heparin 5000 units/ml) 5,000 units EVERY 12 HOURS SUBQ 07/14/19 21:00 08/28/19 20:59 07/17/19 20:28 Hydralazine HCl (Apresoline) 10 mg Q4H PRN IV For High Blood Pressure 07/14/19 15:30 10/12/19 15:29 Lactobacillus Acidophilus (Culturelle) 1 tab Q12HR GT 07/15/19 12:14 10/13/19 12:13 07/17/19 20:28 Morphine Sulfate (Morphine Sulfate) 2 mg Q4H PRN IVP Severe Pain (Pain Scale 7-10) 07/14/19 15:00 07/21/19 14:59 07/15/19 10:33 Ondansetron HCl (Zofran) 4 mg Q6H PRN IVP Nausea & Vomiting 07/14/19 14:45 08/13/19 14:44 Piperacillin Sod/ Tazobactam Sod 2.25 gm/Sodium Chloride 110 ml @ 220 mls/hr Q8HR IVPB 07/14/19 22:00 07/21/19 21:59 07/18/19 05:45 Vancomycin HCl (Firvanq) 125 mg Q6HR GT 07/16/19 18:00 07/23/19 11:59 07/18/19 05:44 Vancomycin HCl (Vanco rx to dose) 1 ea DAILY PRN MISC Per rx protocol 07/14/19 14:45 08/13/19 14:44 Laboratory Tests 07/18/19 06:29: White Blood Count 23.0#*H, Red Blood Count 2.86L, Hemoglobin 8.8L, Hematocrit 26.4L, Mean Corpuscular Volume 92, Mean Corpuscular Hemoglobin 30.7, Mean Corpuscular Hemoglobin Concent 33.3, Red Cell Distribution Width 13.8, Platelet Count 298, Mean Platelet Volume 7.2, Neutrophils (%) (Auto) , Lymphocytes (%) ( Auto) , Monocytes (%) (Auto) , Eosinophils (%) (Auto) , Basophils (%) (Auto) , Neutrophils % (Manual) [Pending], Lymphocytes % (Manual) [Pending], Platelet Estimate [Pending], Platelet Morphology [Pending], Sodium Level 147H, Potassium Level 3.9, Chloride Level 106, Carbon Dioxide Level 28, Anion Gap 14, Blood Urea Nitrogen 34H, Creatinine 2.6H, Estimat Glomerular Filtration Rate 21.1, Glucose Level 151H, Calcium Level 10.0, Random Vancomycin Level 14.9 Height (Feet): 5 Height (Inches): 3.00 Weight (Pounds): 129 Objective exam stable Omar Mckoy MD Jul 18, 2019 08:09
[2019-07-18] MEDS: Heparin 5000 units/ml inj SUBQ SCH ×2 (08:53→21:03)
[2019-07-18] MEDS: Lactobacillus-GG tablet GT SCH ×2 (08:54→21:06)
--- NOTE | 2019-07-18 08:59 | General Progress Note ---
Assessment/Plan Status: stable Assessment/Plan: 1. End-stage renal disease, on hemodialysis. 2. Anemia. 3. Dysphagia, status post G-tube placement. 4. Pneumonia. 5. Pancreatic cyst. 6. Hypertension. 7. Diarrhea 8. Leukocytosis C.diff>> neg on oral vanco>>> recommend dc if ok with ID imodium prn GTF abx per ID HD per nephrology repeal labs in am Subjective ROS Limited/Unobtainable: No Allergies: Coded Allergies: No Known Allergies (Unverified , 06/24/19) Objective Last 24 Hour Vital Signs Date Time Temp Pulse Resp B/P (MAP) Pulse Ox O2 Delivery O2 Flow Rate FiO2 07/18/19 08:00 98.4 100 20 139/60 (86) 98 07/18/19 04:00 101.7 77 20 151/77 (101) 100 07/18/19 04:00 112 07/18/19 00:00 98.6 119 20 128/77 (94) 100 07/18/19 00:00 92 07/17/19 21:00 Nasal Cannula 2.0 Nasal Cannula 2.0 07/17/19 20:00 99.0 112 18 124/67 (86) 99 07/17/19 18:30 97.1 72 18 127/63 (84) 96 07/17/19 16:00 98 07/17/19 16:00 98.1 102 21 157/95 (115) 100 07/17/19 12:00 98.2 102 21 145/78 (100) 100 07/17/19 11:34 100 Intake and Output 07/17/19 07/18/19 19:00 07:00 Intake Total 940 ml Output Total 2250 ml Balance -1310 ml Intake Free Water 60 ml IV Total 495 ml Tube Feeding 385 ml Output Stool Total 250 ml Hemodialysis UF 2000 ml # Voids 1 # Bowel Movements 1 1 Laboratory Tests 07/18/19 06:29: White Blood Count 23.0#*H, Red Blood Count 2.86L, Hemoglobin 8.8L, Hematocrit 26.4L, Mean Corpuscular Volume 92, Mean Corpuscular Hemoglobin 30.7, Mean Corpuscular Hemoglobin Concent 33.3, Red Cell Distribution Width 13.8, Platelet Count 298, Mean Platelet Volume 7.2, Neutrophils (%) (Auto) , Lymphocytes (%) ( Auto) , Monocytes (%) (Auto) , Eosinophils (%) (Auto) , Basophils (%) (Auto) , Neutrophils % (Manual) [Pending], Lymphocytes % (Manual) [Pending], Platelet Estimate [Pending], Platelet Morphology [Pending], Sodium Level 147H, Potassium Level 3.9, Chloride Level 106, Carbon Dioxide Level 28, Anion Gap 14, Blood Urea Nitrogen 34H, Creatinine 2.6H, Estimat Glomerular Filtration Rate 21.1, Glucose Level 151H, Calcium Level 10.0, Random Vancomycin Level 14.9 Height (Feet): 5 Height (Inches): 3.00 Weight (Pounds): 129 General Appearance: no apparent distress EENT: pale conjunctivae Neck: supple Cardiovascular: normal rate Respiratory/Chest: decreased breath sounds Abdomen: normal bowel sounds, non tender, soft Extremities: non-tender Jun Mena MD Jul 18, 2019 08:59
[2019-07-18] MEDS ORDERED: Vancomycin 1gm/D5W 275ml IVPB ONE ×2 (10:00)
--- NOTE | 2019-07-18 10:37 | NUR ---
RD ASSESSMENT & RECOMMENDATIONS SEE CARE ACTIVITY FOR COMPLETE ASSESSMENT DAILY ESTIMATED NEEDS: Needs based on Wounds, HD 51.8kg 30-35 kcals/kg 4219-4641 total kcals 1.25-1.8 g protein/kg 65-93 g total protein Fluids per MD NUTRITION DIAGNOSIS: * Increased kcal and prot needs r/t wound healing and renal failure as evidenced by w/ multiple pressure injuries, including full thickness wound @ R hip, DTPI @ R humerus, L heel, sacrum (opened), R heel, R foot, and R 5th metatarsal, and unstageable wounds at L hallux + R malleolus, s/p recent PermCath placement, HD dependent. * Swallowing difficulty R/T dysphagia as evidenced by s/p recent PEG placement, on GT feeding. CURRENT TF:Nepro @ 35ml/hr x 24 hrs ENTERAL NUTRITION RECOMMENDATIONS: Nepro @ 38ml/hr x 24 hrs to provide 912ml, 1642kcal, 74g prot, 663ml free water - As tolerated, increase goal rate to 38ml/hr x 24 hrs to meet 100% est kcal/prot needs - HOB over 30 degrees/ water flush per MD ADDITIONAL RECOMMENDATIONS: 1) Calibrated bedscale wt 2) Wound Care: add Nephrovite x 1 add Saw 1ptk BID when TF well tolerated @ goal 3) Monitor diarrhea: + rectal tube, Culturelle BID + Imodium prn added -> monitor for continued diarrhea and renal fxn, need/ability to change TF 4) Monitor BGs, need for nISS
[2019-07-18] MEDS: Morphine Sulfate 2mg/ml Inj(IV/IM USE ONLY) IVP PRN (10:38)
--- NOTE | 2019-07-18 10:52 | Nephrology Progress Note ---
Assessment/Plan Plan #Acute renal failure recent started on HD in 06/2018- #Sepsis #Dementia #HTN #elevated troponin #Dysphagia s/p PEG #urinary retention - next HD tomorrow - repeat blodo cx today --> concerns for line infection???- might need it removed - likely tomorrow after HD - and plan for line holiday- pending repeat blood cx - continue lasix 80 IV daily -> switch to oral on DC - cardiology eval - monitor UOP - urology eval - continue antibiotics- Azithro, Zosyn and PO Vanco - follow repeat blood cx - check iron panel, ferritin-> ferritin supersaturated - continue epogen 4K TIW - check PTH, vitamin D pending - monitor BMP, mag and phos daily for now Subjective Subjective s/p HD yesterday WBC back up again febrile overnight repeat blood cx sent BP stable breathing stable on NC Objective Objective Last 24 Hour Vital Signs Date Time Temp Pulse Resp B/P (MAP) Pulse Ox O2 Delivery O2 Flow Rate FiO2 07/18/19 09:00 Nasal Cannula 2.0 Nasal Cannula 2.0 07/18/19 08:01 100 07/18/19 08:00 98.4 100 20 139/60 (86) 98 07/18/19 04:00 101.7 77 20 151/77 (101) 100 07/18/19 04:00 112 07/18/19 00:00 98.6 119 20 128/77 (94) 100 07/18/19 00:00 92 07/17/19 21:00 Nasal Cannula 2.0 Nasal Cannula 2.0 07/17/19 20:00 99.0 112 18 124/67 (86) 99 07/17/19 18:30 97.1 72 18 127/63 (84) 96 07/17/19 16:00 98 07/17/19 16:00 98.1 102 21 157/95 (115) 100 07/17/19 12:00 98.2 102 21 145/78 (100) 100 07/17/19 11:34 100 Intake and Output 07/17/19 07/18/19 19:00 07:00 Intake Total 940 ml Output Total 2250 ml Balance -1310 ml Intake Free Water 60 ml IV Total 495 ml Tube Feeding 385 ml Output Stool Total 250 ml Hemodialysis UF 2000 ml # Voids 1 # Bowel Movements 1 1 Laboratory Tests 07/18/19 06:29: White Blood Count 23.0#*H, Red Blood Count 2.86L, Hemoglobin 8.8L, Hematocrit 26.4L, Mean Corpuscular Volume 92, Mean Corpuscular Hemoglobin 30.7, Mean Corpuscular Hemoglobin Concent 33.3, Red Cell Distribution Width 13.8, Platelet Count 298, Mean Platelet Volume 7.2, Neutrophils (%) (Auto) , Lymphocytes (%) ( Auto) , Monocytes (%) (Auto) , Eosinophils (%) (Auto) , Basophils (%) (Auto) , Differential Total Cells Counted 100, Neutrophils % (Manual) 88H, Lymphocytes % (Manual) 9L, Monocytes % (Manual) 3, Eosinophils % (Manual) 0, Basophils % ( Manual) 0, Band Neutrophils 0, Platelet Estimate Adequate, Platelet Morphology Normal, Hypochromasia 1+, Sodium Level 147H, Potassium Level 3.9, Chloride Level 106, Carbon Dioxide Level 28, Anion Gap 14, Blood Urea Nitrogen 34H, Creatinine 2.6H, Estimat Glomerular Filtration Rate 21.1, Glucose Level 151H, Calcium Level 10.0, Random Vancomycin Level 14.9 Height (Feet): 5 Height (Inches): 3.00 Weight (Pounds): 129 Objective General: NAD, A&O x 1, self only HEENT: NCAT, EOMi, PEERLA, nares patent and no symmetrical, no tonsillar exudates, mucous membranes moist CV: RRR, no murmurs, rubs, or gallops Pulm: CTAB, No wheezes, rhonchi, or rales, no accessory muscle usage or conversational dyspnea GI: Soft, nontender, nondistended, bowel sounds present, PEG tube in place, C/D/ I Neuro: CN 2-12 grossly intact bilaterally, no focal signs. Ext: No lower extremity edema bilaterally, LE contracted bilaterally Skin: Multiple pressure ulcers noted on hip/heels Lymph: No lymphadenopathy in upper extremity and lower extremity Rory Oconnor M.D. Jul 18, 2019 10:52
--- NOTE | 2019-07-18 11:12 | NUR ---
CASE MANAGEMENT: REVIEW 07/18/2019 SI:Hematuria. Fevers. R/O COVID-19. VS: T 101.7 HR 112 RR 20 B/P 151/77 SATS 100% ON 2L/NC LABS: WBC 23 NA 147 BNUN 34 CR 2.6 GLU 151 IS:VANCO IV QD ZOSYN IV Q8H LIPITOR PO QHS TELE PLAN OF CARE: HD INPT CXR
--- NOTE | 2019-07-18 11:56 | NUR ---
NURSE NOTES: HD nurse MIREYA is aware about HD for 07/09/2019.
--- NOTE | 2019-07-18 11:57 | Surgery Progress Note ---
Surgery Progress Note Subjective Additional Comments febrile, leukocytosis discussed with pcp and nephro may need to remove catheter as possible etiology covid negative c diff negative Objective Last 24 Hour Vital Signs Date Time Temp Pulse Resp B/P (MAP) Pulse Ox O2 Delivery O2 Flow Rate FiO2 07/18/19 09:00 Nasal Cannula 2.0 Nasal Cannula 2.0 07/18/19 08:01 100 07/18/19 08:00 98.4 100 20 139/60 (86) 98 07/18/19 04:00 101.7 77 20 151/77 (101) 100 07/18/19 04:00 112 07/18/19 00:00 98.6 119 20 128/77 (94) 100 07/18/19 00:00 92 07/17/19 21:00 Nasal Cannula 2.0 Nasal Cannula 2.0 07/17/19 20:00 99.0 112 18 124/67 (86) 99 07/17/19 18:30 97.1 72 18 127/63 (84) 96 07/17/19 16:00 98 07/17/19 16:00 98.1 102 21 157/95 (115) 100 07/17/19 12:00 98.2 102 21 145/78 (100) 100 I&O Intake and Output 07/17/19 07/18/19 19:00 07:00 Intake Total 940 ml Output Total 2250 ml Balance -1310 ml Intake Free Water 60 ml IV Total 495 ml Tube Feeding 385 ml Output Stool Total 250 ml Hemodialysis UF 2000 ml # Voids 1 # Bowel Movements 1 1 Dressing: saturated Wound: clean Cardiovascular: RSR Respiratory: clear Abdomen: soft, non-tender, present bowel sounds Extremities: no tenderness, no cyanosis, other Laboratory Tests Test 07/18/19 06:29 White Blood Count 23.0 K/UL (4.8-10.8) #*H Red Blood Count 2.86 M/UL (4.20-5.40) L Hemoglobin 8.8 G/DL (12.0-16.0) L Hematocrit 26.4 % (37.0-47.0) L Mean Corpuscular Volume 92 FL (80-99) Mean Corpuscular Hemoglobin 30.7 PG (27.0-31.0) Mean Corpuscular Hemoglobin Concent 33.3 G/DL (32.0-36.0) Red Cell Distribution Width 13.8 % (11.6-14.8) Platelet Count 298 K/UL (150-450) Mean Platelet Volume 7.2 FL (6.5-10.1) Neutrophils (%) (Auto) % (45.0-75.0) Lymphocytes (%) (Auto) % (20.0-45.0) Monocytes (%) (Auto) % (1.0-10.0) Eosinophils (%) (Auto) % (0.0-3.0) Basophils (%) (Auto) % (0.0-2.0) Differential Total Cells Counted 100 Neutrophils % (Manual) 88 % (45-75) H Lymphocytes % (Manual) 9 % (20-45) L Monocytes % (Manual) 3 % (1-10) Eosinophils % (Manual) 0 % (0-3) Basophils % (Manual) 0 % (0-2) Band Neutrophils 0 % (0-8) Platelet Estimate Adequate Platelet Morphology Normal Hypochromasia 1+ Sodium Level 147 MMOL/L (136-145) H Potassium Level 3.9 MMOL/L (3.5-5.1) Chloride Level 106 MMOL/L (98-107) Carbon Dioxide Level 28 MMOL/L (21-32) Anion Gap 14 mmol/L (5-15) Blood Urea Nitrogen 34 mg/dL (7-18) H Creatinine 2.6 MG/DL (0.55-1.30) H Estimat Glomerular Filtration Rate 21.1 mL/min (>60) Glucose Level 151 MG/DL (74-106) H Calcium Level 10.0 MG/DL (8.5-10.1) Random Vancomycin Level 14.9 ug/mL Plan Problems: (1) Decubitus skin ulcer Assessment & Plan: Pt presented on admission with multiple pressure injuries. Unstageable pressure injury R shoulder(L)3.8cm x (W)3.3cm. Base of wound is 100 % necrotic and dry. Marginal erythema along borders. No erythema or induration periwound. Reabsorbed DTPI R Humerus. Base of injury has dry peeling brown skin with underlying dry pink epithelial. R elbow pressure injury has resolved. Full thickness pressure injury R hip (L)7cm x (W)13.1cm. Base of wound is 70% fibrinous slough,10% necrotic ,20% moist pink granulation. Edges are macerated.Small amt seropurulent non-odorous exudate noted. NO erythema , induration or elevation in skin temp periwound. Opened DTPI Sacrum(L)9cm x (W)15cm. Base of wound is purple,indurated with an open wound at sacrococcygeal which has 100% slough(L)1.6cm x (W)1cm. Surrounding Skin hypopigmentation with areas of excoriation extending into perineum and perianal area. Unstageable pressure injury lateral R malleolus(L)2.5cm x (W)3cm. Base of wound is 100% dry necrosis. Edges adherent to base of wound. No erythema induration or fluctuance periwound. Reabsorbing DTPI R heel. Base of Heel is boggy,non-blanching erythema with dry peeling brown skin along edges.(L)4.2cm x (W)6cm. Resolving DTPI distal/lateral R foot. Stable dry brown eschar without fluctuance or induration(L)1cm x (W)1.5cm. Resolving DTPI Lateral R 5th metatarsal.Base of injury is dry,brown without fluctuance or induration.(L)0.6cm x (W)1cm Unstageable pressure injury L Hallux(L)4cm x (W)2.7cm. Base of wound is 80% necrotic,20% slough with marginal erythema along borders. No odor or exudate noted. DTPI L Heel. Base of injury maroon and fluctuant. Periwound is boggy but blanchable(L)5.5cm x (W)6.5cm. Tx.Plan: Cleanse R shoulder with Saline. Apply Therahoney. Apply Cavilon Periwound. Cover with Optifoam drsg. Change every 3 days and prn. Cleanse R hip with Saline. Apply Therahoney.Apply Moisture Barrier Periwound. Cover with Optifoam drsg. Change Daily and prn. Cleanse Sacrum with Saline. Apply Therahoney. Apply Moisture Barrier Paste periwound. Cover with Optifoam drsg. Change every 3 days and prn. Apply Moisture Barrier Paste to perineum and perianal areas with each incontinence care. Apply Betadine to R heel,Distal/lateral R foot ,R5th metatarsal. Cover with Optifoam drsg. Change every 3 days and prn. Apply Betadine to L hallux,and L heel. Cover each site with Optifoam drsg. Change every 3 days and prn. Reposition at least every 2hours or as tolerated. Place pillow between knees. off-load heels with pillow. (2) Fever Assessment & Plan: covid negative discussed with pcp and nephro may need to remove catheter as possible etiology covid negative c diff negative (3) Protein calorie malnutrition Assessment & Plan: DAILY ESTIMATED NEEDS: Needs based on Wounds, HD 51.8kg 30-35 kcals/kg 3552-4273 total kcals 1.25-1.8 g protein/kg 65-93 g total protein Fluids per MD mL/kg . total fluid mLs NUTRITION DIAGNOSIS: * Increased kcal and prot needs r/t wound healing and renal failure as evidenced by w/ multiple pressure injuries, pending re-evaluation, s/p recent PermCath placement, HD dependent. * Swallowing difficulty R/T dysphagia as evidenced by s/p recent PEG placement, on GT feeding. CURRENT TF:Jevity 1.2 @ 50ml/hr x 24 hrs ENTERAL NUTRITION RECOMMENDATIONS: Nepro @ 38ml/hr x 24 hrs to provide 912ml, 1642kcal, 74g prot, 663ml free water - Rec TF change to Nepro- HD dependent - Initiate Nepro @ 28ml/hr x 6 hrs, increase to goal as tolerated. - HOB over 30 degrees/ water flush per MD ADDITIONAL RECOMMENDATIONS: 1) Calibrated bedscale wt 2) Wound Care: add Nephrovite x 1 add Saw 1ptk BID when TF well tolerated @ goal 3) Check phos and mag levels 4) Monitor BGs, need for nISS 5) Add probiotics: h/o LBM prev adm, prolonged use of abx (4) Pressure ulcer Anshul Nava Jul 18, 2019 11:57
--- NOTE | 2019-07-18 12:59 | NUR ---
NURSE NOTES: Dr CASTILLO visited pt, she is aware about fever, tachycardia, WBC 23, and pt is moaning all time despite morphine, no new order to RN, she will F/U.
--- NOTE | 2019-07-18 13:28 | NUR ---
ST SWALLOW EVALUATION, SEE FULL REPORT FOR DETAILS. PT SEEN AT BEDSIDE, REFERRED FOR SKILLED ST SWALLOW EVALUATION BY DR SORIA, (PRIMARY MD BISI). PT READMITTED TO C S/P FEVER AND AMS. DYSPHAGIA RISK FACTORS: DEMENTIA, HX DYSPHAGIA S/P PEG PLACEMENT (07/05/19), HX JAW CA TUMOR REMOVED 2016, HX CVA. PLOF: PT RESIDES AT SNF, HAS BEEN NPO S/P PEG SINCE 07/05/19. RECEIVED BEDSIDE SWALLOW EVAL ORDER, CHART REVIEWED PRIOR TO EVALUATION. PT IS A 89 YEAR OLD FEMALE ADMITTED FOR FEVER, PER RN, PT HAS BEEN NPO SINCE ADMISSION 2/2 HX OF DYSPHAGIA INDICATED BY PEG TUBE. PT HAS 2 L/MIN VIA NC, APPEARING CONTRACTED TO LEFT SIDE UPON ARRIVAL, W/ UNINTELLIGIBLE MOANING, NO FUNCTIONAL COMMUNICATION NOTED. PO TRIALS: PT ADMINISTERED TRACE THIN LIQUID TRIALS VIA TBS. PT W/ POOR ATTENTION TO BOLUS, NO LABIAL SEAL, NO ATTEMPT AT A-P TRANSIT TO BOT, WITH 100% OF TRACE PO TRIAL LOST ANTERIORLY OUT OF MOUTH DUE. PT UNABLE TO TRIGGER PHARYNGEAL SWALLOW W/ SALIVA DESPITE VERBAL AND TACTILE CUES. INITIAL IMPRESSION: MODERATE TO SEVERE ORAL PHASE DYSPHAGIA AND PROBABLE PHARYNGEAL PHASE DYSPHAGIA. PT W/ REDUCED LINGUAL AND LABIAL ROM AND STRENGTH, POOR ATTENTION TO THE BOLUS, UNABLE TO CONSISTENTLY FOLLOW VERBAL COMMANDS. PT W/ NO ATTEMPT AT SALVIA SWALLOWS. HOWEVER, PT DOES APPEAR TO HAVE FUNCTIONAL SECRETION MANAGEMENT. NO OVERT S/S OF ASPIRATION OBSERVED DURING THE SESSION HOWEVER, PT PRESENTING A HIGH ASPIRATION RISK.
--- NOTE | 2019-07-18 13:39 | General Progress Note ---
Assessment/Plan Status: stable Assessment/Plan: 89-year-old female with PMH of acute renal failure, s/p right chest wall permacath on HD, dysphasia s/p PEG, multiple pressure wounds, HTN, h/o AMS was recently discharged from this facility for KAREN/rhabdo, unwitnessed fall, was sent to residential and returned here due to fevers. Patient was admitted for persistent fevers and for sepsis/COVID 19 rule out. ED course: BMP 8000, troponin 0 0.347, patient given for septic work-up and will be admitted for further treatment. #Sepsis, suspect #HCAP or #?abdominal source #?infected Permacath -continue inpatient level of care -CXR w/mild interstitial edema -follow up cultures -COVID-19 NEGATIVE, Droplet precautions d/c -ID following: cont. Azithro, Zosyn and IV Vanco -d/w general surgery, concerned for possible infected Permcath, plan to remove w /Cx tomorrow -NPO past MN #Diarrhea #leukocytosis -c diff negative -obtain CT abd -ID following - PO vanco for now #ESRD on HD -s/p permcath -HD per renal #Hypokalemia -replaced, ctm, replace PRN #HTN #elevated troponin #BNP elevated #Sinus tachycardia -trops stable 0.254, 0.240, 0.248 -likely due to demand ischemia and ESRD -ASA, statin -cont. lasix 80 daily -hydralazine PRN for SBP >160 -Cardio following #Hematuria #Possible Urinary retention. #Possible neurogenic bladder. -UA w/ evidence of RBCs, 4+ blood -Urology recs appreciated #Dysphagia #Diarrhea -s/p PEG -cont tube feeds with reduced rate + Imodium -Dietary and GI consulted #Pressure wounds -Wound care consulted, recs appreciated DVT ppx - heparin sc Time spent on encounter: 35 mins, >50% on counseling, coordination of care. Time of note doesn't reflect time of encounter. Subjective Allergies: Coded Allergies: No Known Allergies (Unverified , 06/24/19) Subjective F/u for sepsis, HCAP, fevers. COVID NEGATIVE. No acute events overnight. WBC elevated, pt w/fever. repeat BCx, UCx ordered. Pt at b/l. Objective Last 24 Hour Vital Signs Date Time Temp Pulse Resp B/P (MAP) Pulse Ox O2 Delivery O2 Flow Rate FiO2 07/18/19 11:58 99.1 102 18 123/73 (90) 97 07/18/19 09:00 Nasal Cannula 2.0 Nasal Cannula 2.0 07/18/19 08:01 100 07/18/19 08:00 98.4 100 20 139/60 (86) 98 07/18/19 04:00 101.7 77 20 151/77 (101) 100 07/18/19 04:00 112 07/18/19 00:00 98.6 119 20 128/77 (94) 100 07/18/19 00:00 92 07/17/19 21:00 Nasal Cannula 2.0 Nasal Cannula 2.0 07/17/19 20:00 99.0 112 18 124/67 (86) 99 07/17/19 18:30 97.1 72 18 127/63 (84) 96 07/17/19 16:00 98 07/17/19 16:00 98.1 102 21 157/95 (115) 100 Intake and Output 07/17/19 07/18/19 19:00 07:00 Intake Total 940 ml Output Total 2250 ml Balance -1310 ml Intake Free Water 60 ml IV Total 495 ml Tube Feeding 385 ml Output Stool Total 250 ml Hemodialysis UF 2000 ml # Voids 1 # Bowel Movements 1 1 Laboratory Tests 07/18/19 06:29: White Blood Count 23.0#*H, Red Blood Count 2.86L, Hemoglobin 8.8L, Hematocrit 26.4L, Mean Corpuscular Volume 92, Mean Corpuscular Hemoglobin 30.7, Mean Corpuscular Hemoglobin Concent 33.3, Red Cell Distribution Width 13.8, Platelet Count 298, Mean Platelet Volume 7.2, Neutrophils (%) (Auto) , Lymphocytes (%) ( Auto) , Monocytes (%) (Auto) , Eosinophils (%) (Auto) , Basophils (%) (Auto) , Differential Total Cells Counted 100, Neutrophils % (Manual) 88H, Lymphocytes % (Manual) 9L, Monocytes % (Manual) 3, Eosinophils % (Manual) 0, Basophils % ( Manual) 0, Band Neutrophils 0, Platelet Estimate Adequate, Platelet Morphology Normal, Hypochromasia 1+, Sodium Level 147H, Potassium Level 3.9, Chloride Level 106, Carbon Dioxide Level 28, Anion Gap 14, Blood Urea Nitrogen 34H, Creatinine 2.6H, Estimat Glomerular Filtration Rate 21.1, Glucose Level 151H, Calcium Level 10.0, Random Vancomycin Level 14.9 Height (Feet): 5 Height (Inches): 3.00 Weight (Pounds): 129 Objective General Appearance: alert, awake, in NAD, AOx1 at b/l Neck: supple Cardiovascular: normal rate, regular rhythm Respiratory/Chest: lungs clear, normal breath sounds Abdomen: non tender, soft, +PEG c/d/i Ext: contracted b/l, no edema Lisa Brewster M.D. Jul 18, 2019 13:39
--- NOTE | 2019-07-18 17:06 | NUR ---
NURSE NOTES: RN called Dr PLASCENCIA regarding proximal tachycardia with HR 170, left massage waiting to call back. will continue to monitor.
--- NOTE | 2019-07-18 17:15 | NUR ---
NURSE NOTES: HYDRALAZINE 10mg wasted in med room. Addendum: 07/18/19 at 1727 by Diaz Wisdom RN ERROR: Due to order for metoprolol iv push, hydralazine didn't administer and med returned to pexis.
[2019-07-18] MEDS: Metoprolol Tartrate 5mg/5ml Inj IVP SCH ×3 (17:32→18:29)
--- NOTE | 2019-07-18 18:18 | NUR ---
NURSE NOTES: RN called DR PLASCENCIA and endorsed him after x2 metoprolol HR 93, do I have to give her the last dose, Dr ordered to give the last dose and hold if HR<80, noted and carried out. will continue to monitor.
--- NOTE | 2019-07-18 19:22 | NUR ---
HAND-OFF: Report given to SKY PURVIS. HR 93, T 97.5, Endorsed to monitor pt for HR.
[2019-07-18] MEDS: Dyna-Hex 2% Top Sol 2oz TOPIC SCH (21:06)
--- NOTE | 2019-07-18 21:59 | Neurology Progress Note ---
Interim History Interim History ROS Limited/Unobtainable: No Interim History stable, covid neg Objective Physical Exam Last Vital Signs Date Time Temp Pulse Resp B/P (MAP) Pulse Ox O2 Delivery O2 Flow Rate FiO2 07/18/19 20:00 97.7 93 24 148/75 (99) 100 07/18/19 09:00 Nasal Cannula 2.0 Nasal Cannula 2.0 Laboratory Tests Test 07/18/19 06:29 White Blood Count 23.0 K/UL (4.8-10.8) #*H Red Blood Count 2.86 M/UL (4.20-5.40) L Hemoglobin 8.8 G/DL (12.0-16.0) L Hematocrit 26.4 % (37.0-47.0) L Mean Corpuscular Volume 92 FL (80-99) Mean Corpuscular Hemoglobin 30.7 PG (27.0-31.0) Mean Corpuscular Hemoglobin Concent 33.3 G/DL (32.0-36.0) Red Cell Distribution Width 13.8 % (11.6-14.8) Platelet Count 298 K/UL (150-450) Mean Platelet Volume 7.2 FL (6.5-10.1) Neutrophils (%) (Auto) % (45.0-75.0) Lymphocytes (%) (Auto) % (20.0-45.0) Monocytes (%) (Auto) % (1.0-10.0) Eosinophils (%) (Auto) % (0.0-3.0) Basophils (%) (Auto) % (0.0-2.0) Differential Total Cells Counted 100 Neutrophils % (Manual) 88 % (45-75) H Lymphocytes % (Manual) 9 % (20-45) L Monocytes % (Manual) 3 % (1-10) Eosinophils % (Manual) 0 % (0-3) Basophils % (Manual) 0 % (0-2) Band Neutrophils 0 % (0-8) Platelet Estimate Adequate Platelet Morphology Normal Hypochromasia 1+ Sodium Level 147 MMOL/L (136-145) H Potassium Level 3.9 MMOL/L (3.5-5.1) Chloride Level 106 MMOL/L (98-107) Carbon Dioxide Level 28 MMOL/L (21-32) Anion Gap 14 mmol/L (5-15) Blood Urea Nitrogen 34 mg/dL (7-18) H Creatinine 2.6 MG/DL (0.55-1.30) H Estimat Glomerular Filtration Rate 21.1 mL/min (>60) Glucose Level 151 MG/DL (74-106) H Calcium Level 10.0 MG/DL (8.5-10.1) Random Vancomycin Level 14.9 ug/mL Head: normocophalic Neck: no rigidity EENT: benign Neurologic Exam Mental Status: awake Cranial Nerves III, IV, : PERRLA Objective Wakes up, tracks with eyes, tell me her name, withdraws all 4 Impression/Recommendations Problems: (1) Decubitus skin ulcer (2) Fever (3) Rhabdomyolysis (4) Elevated troponin (5) KAREN (acute kidney injury) (6) Fever (7) Elevated brain natriuretic peptide (BNP) level (8) ESRD (end stage renal disease) on dialysis (9) ESRD (end stage renal disease) on dialysis (10) Pressure ulcer (11) Protein calorie malnutrition (12) Dysphagia Status: stable Diagnostic Impression Acute encephalopathy, improved baseline dementia Sepsis Monitor neuro exam for improvement cont atb neg covid Delirium precautions Sushil Stevenson MD Jul 18, 2019 21:59
[2019-07-19] VITALS: BP 118/51
[2019-07-19 04:00] VITALS: BP 150/80
[2019-07-19] MEDS: Piperacillin/Tazobactam 2.25 GM in NS 110 ML IVPB SCH ×3 (06:00→21:49)
[2019-07-19 06:42] LABS: HEMATOCRIT 26.3 % (37.0-47.0); HEMOGLOBIN 8.7 G/DL (12.0-16.0); MEAN CORPUSCULAR VOLUME 93 FL (80-99); PLATELET COUNT 281 K/UL (150-450); RED BLOOD COUNT 2.82 M/UL (4.20-5.40); RED CELL DISTRIBUTION WIDTH 13.7 % (11.6-14.8); WHITE BLOOD COUNT 20.1 K/UL (4.8-10.8)
[2019-07-19 07:00] LABS: ALANINE AMINOTRANSFERASE 46 U/L (12-78); ALBUMIN 3.6 G/DL (3.4-5.0); ALBUMIN/GLOBULIN RATIO 1.1 (1.0-2.7); ALKALINE PHOSPHATASE 151 U/L (46-116); ANION GAP 10 mmol/L (5-15); ASPARTATE AMINO TRANSFERASE 48 U/L (15-37); BILIRUBIN,TOTAL 0.7 MG/DL (0.2-1.0); BLOOD UREA NITROGEN 64 mg/dL (7-18); CALCIUM 9.9 MG/DL (8.5-10.1); CARBON DIOXIDE 32 MMOL/L (21-32); CHLORIDE 105 MMOL/L (98-107); CREATININE 3.7 MG/DL (0.55-1.30); POTASSIUM 3.9 MMOL/L (3.5-5.1); SODIUM 146 MMOL/L (136-145)
--- NOTE | 2019-07-19 07:30 | NUR ---
NURSE NOTES: Received pt from SKY PURVIS. Pt is sleeping, pt has NC 2LMP. pt has intact iv acces LFA 22G SL. pt is on continues heart monitoring. Pt has g tube is patent. pt is NPO due to abd ct. pt has rectal tube in place is working well. all needs attended, bed is locked and is in the lowest position, call light within easy reach. will continue to monitor. Addendum: 07/19/19 at 0824 by Diaz Wisdom RN Dr CASTILLO is aware about HR 123, she will F/U.
--- NOTE | 2019-07-19 07:44 | NUR ---
HAND-OFF: Report given to HYUN Perales.
[2019-07-19 08:00] VITALS: BP 140/76
--- NOTE | 2019-07-19 08:20 | General Progress Note ---
Assessment/Plan Status: stable Assessment/Plan: 89-year-old female with PMH of acute renal failure, s/p right chest wall permacath on HD, dysphasia s/p PEG, multiple pressure wounds, HTN, h/o AMS was recently discharged from this facility for KAREN/rhabdo, unwitnessed fall, was sent to correction and returned here due to fevers. Patient was admitted for persistent fevers and for sepsis/COVID 19 rule out. ED course: BMP 8000, troponin 0 0.347, patient given for septic work-up and will be admitted for further treatment. #Sepsis, suspect #HCAP or #?abdominal source #?infected Permacath #Diarrhea #leukocytosis #ESRD on HD -continue inpatient level of care -CXR w/mild interstitial edema -follow up cultures -COVID-19 NEGATIVE, Droplet precautions d/c -c diff negative -Imodium -CT abd ordered -ID following: cont. Azithro, Zosyn, IV and PO Vanco, -Nephro following, plan to repeat BCx from cath -d/w general surgery, if BCx + from permacath, plan to remove tomorrow with line holiday over weekend #Hypokalemia - resolved -replaced, ctm, replace PRN #HTN #elevated troponin #BNP elevated #Sinus tachycardia - resolved -trops stable 0.254, 0.240, 0.248 -likely due to demand ischemia and ESRD -ASA, statin -cont. lasix 80 daily -hydralazine PRN for SBP >160 -start Carvedilol 3.25 mg BID -Cardio following, reccs appreciated #Hematuria #Possible Urinary retention. #Possible neurogenic bladder. -UA w/ evidence of RBCs, 4+ blood -Urology recs appreciated #Dysphagia -s/p PEG -cont tube feeds with reduced rate once no longer NPO -Dietary and GI following, recs appreciated #Pressure wounds -Wound care consulted, recs appreciated DVT ppx - heparin sc Time spent on encounter: 35 mins, >50% on counseling, coordination of care. Time of note doesn't reflect time of encounter. Subjective Allergies: Coded Allergies: No Known Allergies (Unverified , 06/24/19) Subjective F/u for sepsis, HCAP, fevers. COVID NEGATIVE. WBC remains elevated. Pt with tachycardia overnight, improved with MTP. Objective Last 24 Hour Vital Signs Date Time Temp Pulse Resp B/P (MAP) Pulse Ox O2 Delivery O2 Flow Rate FiO2 07/19/19 04:00 92 07/19/19 04:00 97.7 95 24 150/80 (103) 100 07/19/19 00:00 90 07/19/19 00:00 98.1 89 24 118/51 (73) 100 07/18/19 21:00 Nasal Cannula 2.0 Nasal Cannula 2.0 07/18/19 21:00 88 07/18/19 20:00 97.7 93 24 148/75 (99) 100 07/18/19 20:00 92 07/18/19 18:29 93 143/93 07/18/19 18:29 97.7 93 20 143/64 (90) 100 07/18/19 17:47 90 160/69 07/18/19 17:45 99.1 07/18/19 17:32 120 160/69 07/18/19 16:00 99.1 103 20 160/69 (99) 100 07/18/19 15:32 107 07/18/19 11:58 99.1 102 18 123/73 (90) 97 07/18/19 11:53 117 07/18/19 09:00 Nasal Cannula 2.0 Nasal Cannula 2.0 Intake and Output 07/18/19 07/19/19 19:00 07:00 Intake Total 495.000 ml Balance 495.000 ml IV Total 495.000 ml # Voids 2 # Bowel Movements 1 1 Laboratory Tests 07/19/19 04:48: White Blood Count 20.1H, Red Blood Count 2.82L, Hemoglobin 8.7L, Hematocrit 26.3L, Mean Corpuscular Volume 93, Mean Corpuscular Hemoglobin 30.8, Mean Corpuscular Hemoglobin Concent 33.1, Red Cell Distribution Width 13.7, Platelet Count 281, Mean Platelet Volume 7.8, Neutrophils (%) (Auto) , Lymphocytes (%) ( Auto) , Monocytes (%) (Auto) , Eosinophils (%) (Auto) , Basophils (%) (Auto) , Neutrophils % (Manual) [Pending], Lymphocytes % (Manual) [Pending], Platelet Estimate [Pending], Platelet Morphology [Pending], Erythrocyte Sedimentation Rate 64H, Sodium Level 146H, Potassium Level 3.9, Chloride Level 105, Carbon Dioxide Level 32, Anion Gap 10, Blood Urea Nitrogen 64H, Creatinine 3.7H, Estimat Glomerular Filtration Rate 13.9, Glucose Level 128H, Lactic Acid Level 1.00, Calcium Level 9.9, Total Bilirubin 0.7, Aspartate Amino Transf (AST/SGOT) 48H, Alanine Aminotransferase (ALT/SGPT) 46, Alkaline Phosphatase 151H, C- Reactive Protein, Quantitative 5.9H, Total Protein 7.0, Albumin 3.6, Globulin 3.4, Albumin/Globulin Ratio 1.1 Height (Feet): 5 Height (Inches): 3.00 Weight (Pounds): 129 Objective General Appearance: alert, awake, in NAD, AOx1 at b/l Neck: supple Cardiovascular: normal rate, regular rhythm Respiratory/Chest: lungs clear, normal breath sounds Abdomen: non tender, soft, +PEG c/d/i Ext: contracted b/l, no edema Lisa Brewster M.D. Jul 19, 2019 08:20
[2019-07-19] MEDS: Heparin 5000 units/ml inj SUBQ SCH ×2 (09:00→20:25)
[2019-07-19] MEDS: Lactobacillus-GG tablet GT SCH ×2 (09:00→20:24)
--- NOTE | 2019-07-19 09:13 | Urology Progress Note ---
Assessment/Plan Status: stable Assessment/Plan: 1. Hematuria, which was previously gross and now microscopic. 2. End-stage renal disease, on hemodialysis. 3. Urinary retention history, now with incontinence. 4. Probable neurogenic bladder. 5. Pyuria. 6. Proteinuria. 7. History of acute kidney injury. monitor clinically abx as ordered I+O cath PRN cysto later HD per cupola liner f/u on blood cx Subjective Allergies: Coded Allergies: No Known Allergies (Unverified , 06/24/19) Subjective all noted, urinary incontinence, urine reported grossly non-bloody Objective Last 24 Hour Vital Signs Date Time Temp Pulse Resp B/P (MAP) Pulse Ox O2 Delivery O2 Flow Rate FiO2 07/19/19 08:00 97.5 122 20 140/76 (97) 99 07/19/19 04:00 92 07/19/19 04:00 97.7 95 24 150/80 (103) 100 07/19/19 00:00 90 07/19/19 00:00 98.1 89 24 118/51 (73) 100 07/18/19 21:00 Nasal Cannula 2.0 Nasal Cannula 2.0 07/18/19 21:00 88 07/18/19 20:00 97.7 93 24 148/75 (99) 100 07/18/19 20:00 92 07/18/19 18:29 93 143/93 07/18/19 18:29 97.7 93 20 143/64 (90) 100 07/18/19 17:47 90 160/69 07/18/19 17:45 99.1 07/18/19 17:32 120 160/69 07/18/19 16:00 99.1 103 20 160/69 (99) 100 07/18/19 15:32 107 07/18/19 11:58 99.1 102 18 123/73 (90) 97 07/18/19 11:53 117 Intake and Output 07/18/19 07/19/19 19:00 07:00 Intake Total 495.000 ml Balance 495.000 ml IV Total 495.000 ml # Voids 2 # Bowel Movements 1 1 Microbiology Date/Time Source Procedure Growth Status 07/14/19 12:00 Blood Blood Culture - Preliminary NO GROWTH AFTER 72 HOURS Resulted 07/14/19 12:30 Nasal Nares - Final Complete 07/14/19 12:30 Nasal Nares - Final Complete 07/17/19 07:00 Stool Clostridium difficile Toxin Assay - Final Complete 07/14/19 12:00 Rectum - Final NO CARBAPENEM-RESISTANT ENTEROBACTERI... Complete Current Medications Medications (Trade) Dose Ordered Sig/Joan Route PRN Reason Start Time Stop Time Status Last Admin Dose Admin Acetaminophen (Tylenol) 650 mg Q4H PRN ORAL Mild Pain (Pain Scale 1-3) 07/14/19 14:45 08/13/19 14:44 07/18/19 17:15 Atorvastatin Calcium (Lipitor) 10 mg QHS GT 07/14/19 21:00 10/12/19 20:59 07/18/19 21:06 Barium Sulfate (Readi-Cat 2) 450 ml NOW PRN ORAL Radiology Procedure 07/18/19 13:45 07/20/19 13:40 Carvedilol (Coreg) 3.125 mg EVERY 12 HOURS ORAL 07/19/19 09:00 08/18/19 08:59 Chlorhexidine Gluconate (Cari-Hex 2%) 1 applic DAILY@1999 TOPIC 07/15/19 20:00 10/13/19 19:59 07/18/19 21:06 Dextrose (Dextrose 50%) 25 ml Q30M PRN IV Hypoglycemia 07/14/19 14:45 10/12/19 14:44 Dextrose (Dextrose 50%) 50 ml Q30M PRN IV Hypoglycemia 07/14/19 14:45 10/12/19 14:44 Epoetin Dion (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)) 4,000 unit MON-MON-MON SUBQ 07/17/19 21:00 10/15/19 20:59 07/17/19 21:06 Heparin Sodium (Porcine) (Heparin 5000 units/ml) 5,000 units EVERY 12 HOURS SUBQ 07/14/19 21:00 08/28/19 20:59 07/18/19 21:03 Hydralazine HCl (Apresoline) 10 mg Q4H PRN IV For High Blood Pressure 07/14/19 15:30 10/12/19 15:29 Lactobacillus Acidophilus (Culturelle) 1 tab Q12HR GT 07/15/19 12:14 10/13/19 12:13 07/18/19 21:06 Loperamide HCl (Imodium) 2 mg Q6H PRN NG Diarrhea 07/18/19 09:00 08/17/19 08:59 07/18/19 10:37 Morphine Sulfate (Morphine Sulfate) 2 mg Q4H PRN IVP Severe Pain (Pain Scale 7-10) 07/14/19 15:00 07/21/19 14:59 07/18/19 10:38 Ondansetron HCl (Zofran) 4 mg Q6H PRN IVP Nausea & Vomiting 07/14/19 14:45 08/13/19 14:44 Piperacillin Sod/ Tazobactam Sod 2.25 gm/Sodium Chloride 110 ml @ 220 mls/hr Q8HR IVPB 07/14/19 22:00 07/21/19 21:59 07/19/19 06:00 Vancomycin HCl (Vanco rx to dose) 1 ea DAILY PRN MISC Per rx protocol 07/14/19 14:45 08/13/19 14:44 Laboratory Tests 07/19/19 04:48: White Blood Count 20.1H, Red Blood Count 2.82L, Hemoglobin 8.7L, Hematocrit 26.3L, Mean Corpuscular Volume 93, Mean Corpuscular Hemoglobin 30.8, Mean Corpuscular Hemoglobin Concent 33.1, Red Cell Distribution Width 13.7, Platelet Count 281, Mean Platelet Volume 7.8, Neutrophils (%) (Auto) , Lymphocytes (%) ( Auto) , Monocytes (%) (Auto) , Eosinophils (%) (Auto) , Basophils (%) (Auto) , Neutrophils % (Manual) [Pending], Lymphocytes % (Manual) [Pending], Platelet Estimate [Pending], Platelet Morphology [Pending], Erythrocyte Sedimentation Rate 64H, Sodium Level 146H, Potassium Level 3.9, Chloride Level 105, Carbon Dioxide Level 32, Anion Gap 10, Blood Urea Nitrogen 64H, Creatinine 3.7H, Estimat Glomerular Filtration Rate 13.9, Glucose Level 128H, Lactic Acid Level 1.00, Calcium Level 9.9, Total Bilirubin 0.7, Aspartate Amino Transf (AST/SGOT) 48H, Alanine Aminotransferase (ALT/SGPT) 46, Alkaline Phosphatase 151H, C- Reactive Protein, Quantitative 5.9H, Total Protein 7.0, Albumin 3.6, Globulin 3.4, Albumin/Globulin Ratio 1.1 Height (Feet): 5 Height (Inches): 3.00 Weight (Pounds): 129 Objective exam stable Omar Mckoy MD Jul 19, 2019 09:13
--- NOTE | 2019-07-19 09:29 | General Progress Note ---
Assessment/Plan Status: stable Assessment/Plan: 1. End-stage renal disease, on hemodialysis. 2. Anemia. 3. Dysphagia, status post G-tube placement. 4. Pneumonia. 5. Pancreatic cyst. 6. Hypertension. 7. Diarrhea 8. Leukocytosis C.diff>> neg imodium prn GTF abx per ID HD per nephrology repeal labs in am fu abd CT urology in put appreciated Subjective ROS Limited/Unobtainable: No Allergies: Coded Allergies: No Known Allergies (Unverified , 06/24/19) Objective Last 24 Hour Vital Signs Date Time Temp Pulse Resp B/P (MAP) Pulse Ox O2 Delivery O2 Flow Rate FiO2 07/19/19 08:00 97.5 122 20 140/76 (97) 99 07/19/19 04:00 92 07/19/19 04:00 97.7 95 24 150/80 (103) 100 07/19/19 00:00 90 07/19/19 00:00 98.1 89 24 118/51 (73) 100 07/18/19 21:00 Nasal Cannula 2.0 Nasal Cannula 2.0 07/18/19 21:00 88 07/18/19 20:00 97.7 93 24 148/75 (99) 100 07/18/19 20:00 92 07/18/19 18:29 93 143/93 07/18/19 18:29 97.7 93 20 143/64 (90) 100 07/18/19 17:47 90 160/69 07/18/19 17:45 99.1 07/18/19 17:32 120 160/69 07/18/19 16:00 99.1 103 20 160/69 (99) 100 07/18/19 15:32 107 07/18/19 11:58 99.1 102 18 123/73 (90) 97 07/18/19 11:53 117 Intake and Output 07/18/19 07/19/19 19:00 07:00 Intake Total 495.000 ml Balance 495.000 ml IV Total 495.000 ml # Voids 2 # Bowel Movements 1 1 Laboratory Tests 07/19/19 04:48: White Blood Count 20.1H, Red Blood Count 2.82L, Hemoglobin 8.7L, Hematocrit 26.3L, Mean Corpuscular Volume 93, Mean Corpuscular Hemoglobin 30.8, Mean Corpuscular Hemoglobin Concent 33.1, Red Cell Distribution Width 13.7, Platelet Count 281, Mean Platelet Volume 7.8, Neutrophils (%) (Auto) , Lymphocytes (%) ( Auto) , Monocytes (%) (Auto) , Eosinophils (%) (Auto) , Basophils (%) (Auto) , Neutrophils % (Manual) [Pending], Lymphocytes % (Manual) [Pending], Platelet Estimate [Pending], Platelet Morphology [Pending], Erythrocyte Sedimentation Rate 64H, Sodium Level 146H, Potassium Level 3.9, Chloride Level 105, Carbon Dioxide Level 32, Anion Gap 10, Blood Urea Nitrogen 64H, Creatinine 3.7H, Estimat Glomerular Filtration Rate 13.9, Glucose Level 128H, Lactic Acid Level 1.00, Calcium Level 9.9, Total Bilirubin 0.7, Aspartate Amino Transf (AST/SGOT) 48H, Alanine Aminotransferase (ALT/SGPT) 46, Alkaline Phosphatase 151H, C- Reactive Protein, Quantitative 5.9H, Total Protein 7.0, Albumin 3.6, Globulin 3.4, Albumin/Globulin Ratio 1.1 Height (Feet): 5 Height (Inches): 3.00 Weight (Pounds): 129 General Appearance: lethargic EENT: normal ENT inspection Neck: supple Cardiovascular: normal rate Respiratory/Chest: decreased breath sounds Abdomen: normal bowel sounds, non tender, soft Extremities: non-tender Jun Mena MD Jul 19, 2019 09:29
--- NOTE | 2019-07-19 09:47 | NUR ---
CASE MANAGEMENT: REVIEW 07/19/2019 SI:Hematuria. Fevers. VS: T 97.5 HR 122 RR 20 B/P 140/76 SATS 99% ON 2L/NC LABS: WBC 20.1 ESR 64 NA 146 BUN 64 CR 3.7 GLU 128 AST 48 ALP 151 CRP 5.9 IS:VANCO IV QD ZOSYN IV Q8H LIPITOR PO QHS TELE PLAN OF CARE: CT A/P CXR NPO
--- NOTE | 2019-07-19 09:52 | Neurology Progress Note ---
Interim History Interim History ROS Limited/Unobtainable: Yes Interim History lethargic. Poorly responsive Objective Physical Exam Last Vital Signs Date Time Temp Pulse Resp B/P (MAP) Pulse Ox O2 Delivery O2 Flow Rate FiO2 07/19/19 09:00 122 140/76 07/19/19 08:00 97.5 20 99 07/18/19 21:00 Nasal Cannula 2.0 Nasal Cannula 2.0 Laboratory Tests Test 07/19/19 04:48 White Blood Count 20.1 K/UL (4.8-10.8) H Red Blood Count 2.82 M/UL (4.20-5.40) L Hemoglobin 8.7 G/DL (12.0-16.0) L Hematocrit 26.3 % (37.0-47.0) L Mean Corpuscular Volume 93 FL (80-99) Mean Corpuscular Hemoglobin 30.8 PG (27.0-31.0) Mean Corpuscular Hemoglobin Concent 33.1 G/DL (32.0-36.0) Red Cell Distribution Width 13.7 % (11.6-14.8) Platelet Count 281 K/UL (150-450) Mean Platelet Volume 7.8 FL (6.5-10.1) Neutrophils (%) (Auto) % (45.0-75.0) Lymphocytes (%) (Auto) % (20.0-45.0) Monocytes (%) (Auto) % (1.0-10.0) Eosinophils (%) (Auto) % (0.0-3.0) Basophils (%) (Auto) % (0.0-2.0) Neutrophils % (Manual) Pending Lymphocytes % (Manual) Pending Platelet Estimate Pending Platelet Morphology Pending Erythrocyte Sedimentation Rate 64 MM/HR (0-30) H Sodium Level 146 MMOL/L (136-145) H Potassium Level 3.9 MMOL/L (3.5-5.1) Chloride Level 105 MMOL/L (98-107) Carbon Dioxide Level 32 MMOL/L (21-32) Anion Gap 10 mmol/L (5-15) Blood Urea Nitrogen 64 mg/dL (7-18) H Creatinine 3.7 MG/DL (0.55-1.30) H Estimat Glomerular Filtration Rate 13.9 mL/min (>60) Glucose Level 128 MG/DL (74-106) H Lactic Acid Level 1.00 mmol/L (0.4-2.0) Calcium Level 9.9 MG/DL (8.5-10.1) Total Bilirubin 0.7 MG/DL (0.2-1.0) Aspartate Amino Transf (AST/SGOT) 48 U/L (15-37) H Alanine Aminotransferase (ALT/SGPT) 46 U/L (12-78) Alkaline Phosphatase 151 U/L (46-116) H C-Reactive Protein, Quantitative 5.9 mg/dL (0.00-0.90) H Total Protein 7.0 G/DL (6.4-8.2) Albumin 3.6 G/DL (3.4-5.0) Globulin 3.4 g/dL Albumin/Globulin Ratio 1.1 (1.0-2.7) Head: normocophalic Neck: no rigidity EENT: benign Neurologic Exam Mental Status: awake Cranial Nerves III, IV, : PERRLA Objective Wakes up, tracks with eyes, tell me her name, withdraws all 4 Impression/Recommendations Problems: (1) Decubitus skin ulcer (2) Fever (3) Rhabdomyolysis (4) Elevated troponin (5) KAREN (acute kidney injury) (6) Fever (7) Elevated brain natriuretic peptide (BNP) level (8) ESRD (end stage renal disease) on dialysis (9) ESRD (end stage renal disease) on dialysis (10) Pressure ulcer (11) Protein calorie malnutrition (12) Dysphagia Status: stable Diagnostic Impression Acute encephalopathy, improved baseline dementia Sepsis Monitor neuro exam for improvement cont atb neg covid Delirium precautions Sushil Stevenson MD Jul 19, 2019 09:52
--- NOTE | 2019-07-19 09:53 | NUR ---
DISCHARGE PLANNING: NOTE CLINICALS FAXED TO [facility] IN ANTICIPATION OF A WEEKEND DC F: [phone]. T: [phone] S/W KRISSY Addendum: 07/19/19 at 1347 by Maggie Newell CM ROOM 18A PROVIDED FOR POSSIBLE WEEKEND DC
--- NOTE | 2019-07-19 10:51 | NUR ---
RADIOLOGY DEPT., CHEST X-RAY DONE.-P.DYE
--- NOTE | 2019-07-19 11:32 | Nephrology Progress Note ---
Assessment/Plan Plan #Acute renal failure recent started on HD in 06/2018- #Sepsis #Dementia #HTN #elevated troponin #Dysphagia s/p PEG #urinary retention - next HD today - repeat blodo cx today --> concerns for line infection???- might need it removed - and plan for line holiday- pending repeat blood cx - continue lasix 80 IV daily -> switch to oral on DC - cardiology eval - monitor UOP - urology eval - continue antibiotics- Azithro, Zosyn and PO Vanco - follow repeat blood cx - check iron panel, ferritin-> ferritin supersaturated - continue epogen 4K TIW - check PTH, vitamin D pending - monitor BMP, mag and phos daily for now Subjective Subjective plan for HD today will obtain blood cx through permacath BP stable breathing stable on NC Objective Objective Last 24 Hour Vital Signs Date Time Temp Pulse Resp B/P (MAP) Pulse Ox O2 Delivery O2 Flow Rate FiO2 07/19/19 09:00 Nasal Cannula 2.0 Nasal Cannula 2.0 07/19/19 09:00 122 140/76 07/19/19 08:00 97.5 122 20 140/76 (97) 99 07/19/19 07:56 97 07/19/19 04:00 92 07/19/19 04:00 97.7 95 24 150/80 (103) 100 07/19/19 00:00 90 07/19/19 00:00 98.1 89 24 118/51 (73) 100 07/18/19 21:00 Nasal Cannula 2.0 Nasal Cannula 2.0 07/18/19 21:00 88 07/18/19 20:00 97.7 93 24 148/75 (99) 100 07/18/19 20:00 92 07/18/19 18:29 93 143/93 07/18/19 18:29 97.7 93 20 143/64 (90) 100 07/18/19 17:47 90 160/69 07/18/19 17:45 99.1 07/18/19 17:32 120 160/69 07/18/19 16:00 99.1 103 20 160/69 (99) 100 07/18/19 15:32 107 07/18/19 11:58 99.1 102 18 123/73 (90) 97 07/18/19 11:53 117 Intake and Output 07/18/19 07/19/19 19:00 07:00 Intake Total 495.000 ml Balance 495.000 ml IV Total 495.000 ml # Voids 2 # Bowel Movements 1 1 Laboratory Tests 07/19/19 04:48: White Blood Count 20.1H, Red Blood Count 2.82L, Hemoglobin 8.7L, Hematocrit 26.3L, Mean Corpuscular Volume 93, Mean Corpuscular Hemoglobin 30.8, Mean Corpuscular Hemoglobin Concent 33.1, Red Cell Distribution Width 13.7, Platelet Count 281, Mean Platelet Volume 7.8, Neutrophils (%) (Auto) , Lymphocytes (%) ( Auto) , Monocytes (%) (Auto) , Eosinophils (%) (Auto) , Basophils (%) (Auto) , Differential Total Cells Counted 100, Neutrophils % (Manual) 87H, Lymphocytes % (Manual) 10L, Monocytes % (Manual) 3, Eosinophils % (Manual) 0, Basophils % ( Manual) 0, Band Neutrophils 0, Platelet Estimate Adequate, Platelet Morphology Normal, Hypochromasia 1+, Erythrocyte Sedimentation Rate 64H, Sodium Level 146H , Potassium Level 3.9, Chloride Level 105, Carbon Dioxide Level 32, Anion Gap 10 , Blood Urea Nitrogen 64H, Creatinine 3.7H, Estimat Glomerular Filtration Rate 13.9, Glucose Level 128H, Lactic Acid Level 1.00, Calcium Level 9.9, Total Bilirubin 0.7, Aspartate Amino Transf (AST/SGOT) 48H, Alanine Aminotransferase ( ALT/SGPT) 46, Alkaline Phosphatase 151H, C-Reactive Protein, Quantitative 5.9H, Total Protein 7.0, Albumin 3.6, Globulin 3.4, Albumin/Globulin Ratio 1.1 Height (Feet): 5 Height (Inches): 3.00 Weight (Pounds): 129 Objective General: NAD, A&O x 1, self only HEENT: NCAT, EOMi, PEERLA, nares patent and no symmetrical, no tonsillar exudates, mucous membranes moist CV: RRR, no murmurs, rubs, or gallops Pulm: CTAB, No wheezes, rhonchi, or rales, no accessory muscle usage or conversational dyspnea GI: Soft, nontender, nondistended, bowel sounds present, PEG tube in place, C/D/ I Neuro: CN 2-12 grossly intact bilaterally, no focal signs. Ext: No lower extremity edema bilaterally, LE contracted bilaterally Skin: Multiple pressure ulcers noted on hip/heels Lymph: No lymphadenopathy in upper extremity and lower extremity Rory Oconnor M.D. Jul 19, 2019 11:32
[2019-07-19 12:00] VITALS: BP 143/80
--- NOTE | 2019-07-19 12:52 | Surgery Progress Note ---
Surgery Progress Note Subjective Additional Comments leukocytosis persistent inflammatory numbers noted discussed with pcp and nephro blood cultures from line. if positive will remove after next HD then line holiday Objective Last 24 Hour Vital Signs Date Time Temp Pulse Resp B/P (MAP) Pulse Ox O2 Delivery O2 Flow Rate FiO2 07/19/19 12:00 97.7 118 18 143/80 (101) 100 07/19/19 09:00 Nasal Cannula 2.0 Nasal Cannula 2.0 07/19/19 09:00 122 140/76 07/19/19 08:00 97.5 122 20 140/76 (97) 99 07/19/19 07:56 97 07/19/19 04:00 92 07/19/19 04:00 97.7 95 24 150/80 (103) 100 07/19/19 00:00 90 07/19/19 00:00 98.1 89 24 118/51 (73) 100 07/18/19 21:00 Nasal Cannula 2.0 Nasal Cannula 2.0 07/18/19 21:00 88 07/18/19 20:00 97.7 93 24 148/75 (99) 100 07/18/19 20:00 92 07/18/19 18:29 93 143/93 07/18/19 18:29 97.7 93 20 143/64 (90) 100 07/18/19 17:47 90 160/69 07/18/19 17:45 99.1 07/18/19 17:32 120 160/69 07/18/19 16:00 99.1 103 20 160/69 (99) 100 07/18/19 15:32 107 I&O Intake and Output 07/18/19 07/19/19 19:00 07:00 Intake Total 495.000 ml Balance 495.000 ml IV Total 495.000 ml # Voids 2 # Bowel Movements 1 1 Dressing: dry Wound: other Drains: other Cardiovascular: RSR Respiratory: decreased breath sounds Abdomen: soft, non-tender, present bowel sounds Extremities: no cyanosis Laboratory Tests Test 07/19/19 04:48 White Blood Count 20.1 K/UL (4.8-10.8) H Red Blood Count 2.82 M/UL (4.20-5.40) L Hemoglobin 8.7 G/DL (12.0-16.0) L Hematocrit 26.3 % (37.0-47.0) L Mean Corpuscular Volume 93 FL (80-99) Mean Corpuscular Hemoglobin 30.8 PG (27.0-31.0) Mean Corpuscular Hemoglobin Concent 33.1 G/DL (32.0-36.0) Red Cell Distribution Width 13.7 % (11.6-14.8) Platelet Count 281 K/UL (150-450) Mean Platelet Volume 7.8 FL (6.5-10.1) Neutrophils (%) (Auto) % (45.0-75.0) Lymphocytes (%) (Auto) % (20.0-45.0) Monocytes (%) (Auto) % (1.0-10.0) Eosinophils (%) (Auto) % (0.0-3.0) Basophils (%) (Auto) % (0.0-2.0) Differential Total Cells Counted 100 Neutrophils % (Manual) 87 % (45-75) H Lymphocytes % (Manual) 10 % (20-45) L Monocytes % (Manual) 3 % (1-10) Eosinophils % (Manual) 0 % (0-3) Basophils % (Manual) 0 % (0-2) Band Neutrophils 0 % (0-8) Platelet Estimate Adequate Platelet Morphology Normal Hypochromasia 1+ Erythrocyte Sedimentation Rate 64 MM/HR (0-30) H Sodium Level 146 MMOL/L (136-145) H Potassium Level 3.9 MMOL/L (3.5-5.1) Chloride Level 105 MMOL/L (98-107) Carbon Dioxide Level 32 MMOL/L (21-32) Anion Gap 10 mmol/L (5-15) Blood Urea Nitrogen 64 mg/dL (7-18) H Creatinine 3.7 MG/DL (0.55-1.30) H Estimat Glomerular Filtration Rate 13.9 mL/min (>60) Glucose Level 128 MG/DL (74-106) H Lactic Acid Level 1.00 mmol/L (0.4-2.0) Calcium Level 9.9 MG/DL (8.5-10.1) Total Bilirubin 0.7 MG/DL (0.2-1.0) Aspartate Amino Transf (AST/SGOT) 48 U/L (15-37) H Alanine Aminotransferase (ALT/SGPT) 46 U/L (12-78) Alkaline Phosphatase 151 U/L (46-116) H C-Reactive Protein, Quantitative 5.9 mg/dL (0.00-0.90) H Total Protein 7.0 G/DL (6.4-8.2) Albumin 3.6 G/DL (3.4-5.0) Globulin 3.4 g/dL Albumin/Globulin Ratio 1.1 (1.0-2.7) Plan Problems: (1) Decubitus skin ulcer Assessment & Plan: Pt presented on admission with multiple pressure injuries. Unstageable pressure injury R shoulder(L)3.8cm x (W)3.3cm. Base of wound is 100 % necrotic and dry. Marginal erythema along borders. No erythema or induration periwound. Reabsorbed DTPI R Humerus. Base of injury has dry peeling brown skin with underlying dry pink epithelial. R elbow pressure injury has resolved. Full thickness pressure injury R hip (L)7cm x (W)13.1cm. Base of wound is 70% fibrinous slough,10% necrotic ,20% moist pink granulation. Edges are macerated.Small amt seropurulent non-odorous exudate noted. NO erythema , induration or elevation in skin temp periwound. Opened DTPI Sacrum(L)9cm x (W)15cm. Base of wound is purple,indurated with an open wound at sacrococcygeal which has 100% slough(L)1.6cm x (W)1cm. Surrounding Skin hypopigmentation with areas of excoriation extending into perineum and perianal area. Unstageable pressure injury lateral R malleolus(L)2.5cm x (W)3cm. Base of wound is 100% dry necrosis. Edges adherent to base of wound. No erythema induration or fluctuance periwound. Reabsorbing DTPI R heel. Base of Heel is boggy,non-blanching erythema with dry peeling brown skin along edges.(L)4.2cm x (W)6cm. Resolving DTPI distal/lateral R foot. Stable dry brown eschar without fluctuance or induration(L)1cm x (W)1.5cm. Resolving DTPI Lateral R 5th metatarsal.Base of injury is dry,brown without fluctuance or induration.(L)0.6cm x (W)1cm Unstageable pressure injury L Hallux(L)4cm x (W)2.7cm. Base of wound is 80% necrotic,20% slough with marginal erythema along borders. No odor or exudate noted. DTPI L Heel. Base of injury maroon and fluctuant. Periwound is boggy but blanchable(L)5.5cm x (W)6.5cm. Tx.Plan: Cleanse R shoulder with Saline. Apply Therahoney. Apply Cavilon Periwound. Cover with Optifoam drsg. Change every 3 days and prn. Cleanse R hip with Saline. Apply Therahoney.Apply Moisture Barrier Periwound. Cover with Optifoam drsg. Change Daily and prn. Cleanse Sacrum with Saline. Apply Therahoney. Apply Moisture Barrier Paste periwound. Cover with Optifoam drsg. Change every 3 days and prn. Apply Moisture Barrier Paste to perineum and perianal areas with each incontinence care. Apply Betadine to R heel,Distal/lateral R foot ,R5th metatarsal. Cover with Optifoam drsg. Change every 3 days and prn. Apply Betadine to L hallux,and L heel. Cover each site with Optifoam drsg. Change every 3 days and prn. Reposition at least every 2hours or as tolerated. Place pillow between knees. off-load heels with pillow. (2) Fever Assessment & Plan: covid negative discussed with pcp and nephro may need to remove catheter as possible etiology covid negative c diff negative blood cultures from line. if positive will remove after next HD then line holiday (3) Protein calorie malnutrition Assessment & Plan: DAILY ESTIMATED NEEDS: Needs based on Wounds, HD 51.8kg 30-35 kcals/kg [id number] total kcals 1.25-1.8 g protein/kg 65-93 g total protein Fluids per MD mL/kg . total fluid mLs NUTRITION DIAGNOSIS: * Increased kcal and prot needs r/t wound healing and renal failure as evidenced by w/ multiple pressure injuries, pending re-evaluation, s/p recent PermCath placement, HD dependent. * Swallowing difficulty R/T dysphagia as evidenced by s/p recent PEG placement, on GT feeding. CURRENT TF:Jevity 1.2 @ 50ml/hr x 24 hrs ENTERAL NUTRITION RECOMMENDATIONS: Nepro @ 38ml/hr x 24 hrs to provide 912ml, 1642kcal, 74g prot, 663ml free water - Rec TF change to Nepro- HD dependent - Initiate Nepro @ 28ml/hr x 6 hrs, increase to goal as tolerated. - HOB over 30 degrees/ water flush per MD ADDITIONAL RECOMMENDATIONS: 1) Calibrated bedscale wt 2) Wound Care: add Nephrovite x 1 add Saw 1ptk BID when TF well tolerated @ goal 3) Check phos and mag levels 4) Monitor BGs, need for nISS 5) Add probiotics: h/o LBM prev adm, prolonged use of abx (4) Pressure ulcer Anshul Nava Jul 19, 2019 12:52
--- NOTE | 2019-07-19 12:59 | NUR ---
NURSE NOTES: HD is started for pt now. will continue to monitor.
--- NOTE | 2019-07-19 14:31 | NUR ---
NURSE NOTES: pt is still under HD, ZOSYN will given after HD. will continue to monitor.
--- NOTE | 2019-07-19 14:54 | Diagnostic Imaging Report ---
Indication: Abdomen pain, diarrhea, leukocytosis Technique: Noncontrast CT of the abdomen and pelvis utilizing automated exposure control. Axial, sagittal and coronal reformats presented. CT dose: Total DLP 324.2 mGycm; CTDI vol 6.1 mGy Comparison: 07/01/2019 Findings: Please note that evaluation of the abdominal and pelvic viscera and vascular structures is limited without the use of intravenous contrast. Within these limitations the following observations are made: Atelectatic changes noted in the lung bases. Some small consolidation noted in the left lower lobe which may be related to atelectasis versus pneumonia. Partially imaged heart appears normal in size. There are extensive coronary arterial calcifications. Tunneled dialysis catheter is partially visualized. Noncontrast evaluation of the liver is unremarkable. There are no CT evident gallstones or pericholecystic inflammatory changes. No appreciable biliary ductal dilatation. Spleen, adrenal glands unremarkable. There is an unchanged cystic lesion in the region of the pancreatic tail measuring approximately 1.5 cm in diameter with no peripancreatic inflammatory changes or fluid collections. Renal calcifications are noted which may be vascular in etiology or may represent nonobstructing stones. No evidence of hydronephrosis bilaterally. Nonspecific mild perinephric stranding is again seen, similar to the prior exam. No perinephric fluid collection. Bladder is mildly distended but otherwise unremarkable. There has been interval removal of the Sanchez catheter. There is no free intraperitoneal air or fluid. A gastrostomy tube is noted in place. A rectal tube is also noted. There is no evidence of small bowel obstruction. No intra-abdominal fluid collection/abscess. Appendix is not definitively identified however there are no pericecal inflammatory changes to suggest acute appendicitis. The abdominal aorta is normal caliber with severe atherosclerotic calcification. No pathologically enlarged/conglomerate lymphadenopathy appreciated. There is diffuse atrophy of the paraspinal muscles and pelvic musculature suggesting limited are not limited to a study. Bones are diffusely demineralized and there are multilevel degenerative changes spine. There are compression deformities of the T10, T12 and L1 vertebral bodies, similar to the prior exam. No acute fractures identified. Partially imaged breast tissue appears grossly symmetric. Slight skin irregularity overlying the inferior aspect of the sacrum. Correlate clinically to assess for the presence of a sacral decubitus ulcer. IMPRESSION: Limited exam without intravenous contrast. Within these limitations: * Patchy opacities in the lung bases, left greater than right. Findings may related to subsegmental atelectasis. Possibility of pneumonia however not excluded. * Extensive coronary arterial calcifications. * Dialysis catheter partially visualized. * Indwelling gastrostomy and rectal tubes. * No intraabdominal fluid collection/abscess. * Interval removal of Sanchez catheter. Bladder is mildly distended but otherwise unremarkable. * Extensive atherosclerotic vascular calcifications. * Irregularity the skin overlying the inferior aspect of the sacrum. Correlate clinically to exclude the possibility of sacral decubitus ulcer. No subcutaneous fluid collection/abscess. * Osteopenia and severe degenerative changes of the spine with unchanged vertebral body compression deformities. * 1.5 cm cystic lesion in the pancreatic tail, similar to the prior exam. The CT scanner at [facility] is accredited by the [employer] and the scans are performed using protocols designed to limit radiation exposure to as low as reasonably achievable to attain images of sufficient resolution adequate for diagnostic evaluation.
--- NOTE | 2019-07-19 14:57 | NUR ---
ST NOTES: PATIENT NOT SEEN DUE TO NPO FOR PROCEDURE PER RN. PATIENT NOW NOT AVAILABLE DUE TO DIALYSIS. PLAN: SEE ON MONDAY OR MONDAY (SINCE SHE HAS DIALYSIS ON MONDAY). CONTINUE WITH NONORAL (PEG FEEDINGS) AND ORAL CARE FOR NOW (NOTED ON SIGN) Addendum: 07/19/19 at 1506 by ROBINSON MAHAJAN PER RN, THE PATIENT IS CLEAR OF COVID 19.
--- NOTE | 2019-07-19 15:12 | Diagnostic Imaging Report ---
Indication: Chest pain, shortness of breath Technique: XRAY Chest 1v Comparison: 07/16/2019 Findings: Heart size and mediastinal contours are stable. Atherosclerotic calcifications again noted in the tortuous aorta. Calcifications again noted projecting over the medial left apex which are noted be vascular in etiology on prior CT.. A tunneled dialysis catheter remains in place. There is interval worsening of aeration with increasing haziness of the pulmonary vascularity and development of some hazy perihilar airspace opacities. No significant pleural effusion. No pneumothorax. Osseous structures are stable. Impression: Worsening of aeration with increasing haziness of the pulmonary vascularity and development of hazy perihilar airspace opacities. Findings likely related to fluid overload/CHF. Superimposed infection however not excluded. Clinical correlation and follow-up recommended.
[2019-07-19 15:51] VITALS: BP 128/64
--- NOTE | 2019-07-19 16:42 | NUR ---
NURSE NOTES: HD finished with 2lit out put. port dressing is intact.
--- NOTE | 2019-07-19 17:12 | Infectious Diseases Prog Note ---
Assessment/Plan Assessment/Plan ASSESSMENT AND PLAN: 1. sepsis, fevers, leukocytosis, ? pna, diarrhea, covid-19 test negative, ? right hip wound infection ? line infection - vancomycin and zosyn - wound care per surgery - monitor labs - monitor chest x-ray - recheck blood cultures - may need to remove line - d/w Dr. Oconnor from renal medicine - check sputum culture - c.diff. - negaive 2. The patient has end-stage renal disease, on hemodialysis and PermCath. 3. Skin care protocol. 4. Anemia. 5. The patient has history of dysphagia, on G-tube. 6. Aspiration risk. 7. Hypertension. 8. Altered mental status. 9. History of Strep viridans bacteremia. 10. Hypertension, treatment per primary care team. 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 12. History of non-STEMI and CAD. 13. History of rhabdomyolysis. 14. History of acute renal failure, on dialysis. 15. Coronary artery disease. 16. No known drug allergies. 17. Social history negative. 18. Family history noncontributory. 19. MAR was noted. 20. Case discussed with RN. 21. Isolation in the acute care. 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 Subjective Constitutional: Reports: fatigue; Denies: fever HEENT: Reports: congestion - mild Respiratory: Reports: shortness of breath - mild Cardiovascular: Denies: chest pain Gastrointestinal/Abdominal: Reports: diarrhea, other - + rectal tube ; Denies: nausea, vomiting Neurologic: Denies: headache Psychiatric: Denies: depression Skin: Denies: rash Hematologic: Denies: bleeding Musculoskeletal: Denies: pain Allergies: Coded Allergies: No Known Allergies (Unverified , 06/24/19) Objective Vital Signs Last 24 Hour Vital Signs Date Time Temp Pulse Resp B/P (MAP) Pulse Ox O2 Delivery O2 Flow Rate FiO2 07/19/19 15:51 97.0 102 20 128/64 (85) 98 07/19/19 15:17 100 07/19/19 12:59 118 07/19/19 12:00 97.7 118 18 143/80 (101) 100 07/19/19 09:00 Nasal Cannula 2.0 Nasal Cannula 2.0 07/19/19 09:00 122 140/76 07/19/19 08:00 97.5 122 20 140/76 (97) 99 07/19/19 07:56 97 07/19/19 04:00 92 07/19/19 04:00 97.7 95 24 150/80 (103) 100 07/19/19 00:00 90 07/19/19 00:00 98.1 89 24 118/51 (73) 100 07/18/19 21:00 Nasal Cannula 2.0 Nasal Cannula 2.0 07/18/19 21:00 88 07/18/19 20:00 97.7 93 24 148/75 (99) 100 07/18/19 20:00 92 07/18/19 18:29 93 143/93 07/18/19 18:29 97.7 93 20 143/64 (90) 100 07/18/19 17:47 90 160/69 07/18/19 17:45 99.1 07/18/19 17:32 120 160/69 Height (Feet): 5 Height (Inches): 3.00 Weight (Pounds): 129 General Appearance: no acute distress HEENT: normocephalic, atraumatic, anicteric Respiratory/Chest: crackles/rales, rhonchi - bilaterally Cardiovascular: normal rate, regular rhythm, no gallop/murmur, no JVD Abdomen: normal bowel sounds, soft, non tender, no organomegaly, non distended Genitourinary: other - + hargrove Extremities: no cyanosis Skin: no rash 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 Findings: Pulmonary vessel congestion noted. Heart is enlarged. Interstitial edema is mild. Bones are osteopenic. IMPRESSION: Mild interstitial edema Chest x-ray - 07/19/19 - Impression: Worsening of aeration with increasing haziness of the pulmonary vascularity and development of hazy perihilar airspace opacities. Findings likely related to fluid overload/CHF. Superimposed infection however not excluded. Clinical correlation and follow-up recommended. CT scan of abdomen and pelvis: IMPRESSION: Limited exam without intravenous contrast. Within these limitations: * Patchy opacities in the lung bases, left greater than right. Findings may related to subsegmental atelectasis. Possibility of pneumonia however not excluded. * Extensive coronary arterial calcifications. * Dialysis catheter partially visualized. * Indwelling gastrostomy and rectal tubes. * No intraabdominal fluid collection/abscess. * Interval removal of Hargrove catheter. Bladder is mildly distended but otherwise unremarkable. * Extensive atherosclerotic vascular calcifications. * Irregularity the skin overlying the inferior aspect of the sacrum. Correlate clinically to exclude the possibility of sacral decubitus ulcer. No subcutaneous fluid collection/abscess. * Osteopenia and severe degenerative changes of the spine with unchanged vertebral body compression deformities. * 1.5 cm cystic l Microbiology Date/Time Source Procedure Growth Status 07/14/19 12:00 Blood Blood Culture - Preliminary NO GROWTH AFTER 4 DAYS Resulted 07/14/19 12:30 Nasal Nares - Final Complete 07/14/19 12:30 Nasal Nares - Final Complete 07/17/19 07:00 Stool Clostridium difficile Toxin Assay - Final Complete 07/14/19 12:00 Rectum - Final NO CARBAPENEM-RESISTANT ENTEROBACTERI... Complete Microbiology Date/Time Source Procedure Growth Status 07/17/19 07:00 Stool Clostridium difficile Toxin Assay - Final Complete Laboratory Tests Test 07/19/19 04:48 07/19/19 16:05 White Blood Count 20.1 K/UL (4.8-10.8) H Red Blood Count 2.82 M/UL (4.20-5.40) L Hemoglobin 8.7 G/DL (12.0-16.0) L Hematocrit 26.3 % (37.0-47.0) L Mean Corpuscular Volume 93 FL (80-99) Mean Corpuscular Hemoglobin 30.8 PG (27.0-31.0) Mean Corpuscular Hemoglobin Concent 33.1 G/DL (32.0-36.0) Red Cell Distribution Width 13.7 % (11.6-14.8) Platelet Count 281 K/UL (150-450) Mean Platelet Volume 7.8 FL (6.5-10.1) Neutrophils (%) (Auto) % (45.0-75.0) Lymphocytes (%) (Auto) % (20.0-45.0) Monocytes (%) (Auto) % (1.0-10.0) Eosinophils (%) (Auto) % (0.0-3.0) Basophils (%) (Auto) % (0.0-2.0) Differential Total Cells Counted 100 Neutrophils % (Manual) 87 % (45-75) H Lymphocytes % (Manual) 10 % (20-45) L Monocytes % (Manual) 3 % (1-10) Eosinophils % (Manual) 0 % (0-3) Basophils % (Manual) 0 % (0-2) Band Neutrophils 0 % (0-8) Platelet Estimate Adequate Platelet Morphology Normal Hypochromasia 1+ Erythrocyte Sedimentation Rate 64 MM/HR (0-30) H Sodium Level 146 MMOL/L (136-145) H Potassium Level 3.9 MMOL/L (3.5-5.1) Chloride Level 105 MMOL/L (98-107) Carbon Dioxide Level 32 MMOL/L (21-32) Anion Gap 10 mmol/L (5-15) Blood Urea Nitrogen 64 mg/dL (7-18) H Creatinine 3.7 MG/DL (0.55-1.30) H Estimat Glomerular Filtration Rate 13.9 mL/min (>60) Glucose Level 128 MG/DL (74-106) H Lactic Acid Level 1.00 mmol/L (0.4-2.0) Calcium Level 9.9 MG/DL (8.5-10.1) Total Bilirubin 0.7 MG/DL (0.2-1.0) Aspartate Amino Transf (AST/SGOT) 48 U/L (15-37) H Alanine Aminotransferase (ALT/SGPT) 46 U/L (12-78) Alkaline Phosphatase 151 U/L (46-116) H C-Reactive Protein, Quantitative 5.9 mg/dL (0.00-0.90) H Total Protein 7.0 G/DL (6.4-8.2) Albumin 3.6 G/DL (3.4-5.0) Globulin 3.4 g/dL Albumin/Globulin Ratio 1.1 (1.0-2.7) Random Vancomycin Level Pending Current Medications Medications (Trade) Dose Ordered Sig/Joan Route PRN Reason Start Time Stop Time Status Last Admin Dose Admin Acetaminophen (Tylenol) 650 mg Q4H PRN ORAL Mild Pain (Pain Scale 1-3) 07/14/19 14:45 08/13/19 14:44 07/18/19 17:15 Atorvastatin Calcium (Lipitor) 10 mg QHS GT 07/14/19 21:00 10/12/19 20:59 07/18/19 21:06 Barium Sulfate (Readi-Cat 2) 450 ml NOW PRN ORAL Radiology Procedure 07/18/19 13:45 07/20/19 13:40 Carvedilol (Coreg) 3.125 mg EVERY 12 HOURS ORAL 07/19/19 09:00 08/18/19 08:59 Chlorhexidine Gluconate (Cari-Hex 2%) 1 applic DAILY@2000 TOPIC 07/15/19 20:00 10/13/19 19:59 07/18/19 21:06 Dextrose (Dextrose 50%) 25 ml Q30M PRN IV Hypoglycemia 07/14/19 14:45 10/12/19 14:44 Dextrose (Dextrose 50%) 50 ml Q30M PRN IV Hypoglycemia 07/14/19 14:45 10/12/19 14:44 Epoetin Dion (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)) 4,000 unit MON-MON-MON SUBQ 07/17/19 21:00 10/15/19 20:59 07/17/19 21:06 Heparin Sodium (Porcine) (Heparin 5000 units/ml) 5,000 units EVERY 12 HOURS SUBQ 07/14/19 21:00 08/28/19 20:59 07/18/19 21:03 Hydralazine HCl (Apresoline) 10 mg Q4H PRN IV For High Blood Pressure 07/14/19 15:30 10/12/19 15:29 Lactobacillus Acidophilus (Culturelle) 1 tab Q12HR GT 07/15/19 12:14 10/13/19 12:13 07/18/19 21:06 Loperamide HCl (Imodium) 2 mg Q6H PRN NG Diarrhea 07/18/19 09:00 08/17/19 08:59 07/18/19 10:37 Morphine Sulfate (Morphine Sulfate) 2 mg Q4H PRN IVP Severe Pain (Pain Scale 7-10) 07/14/19 15:00 07/21/19 14:59 07/18/19 10:38 Ondansetron HCl (Zofran) 4 mg Q6H PRN IVP Nausea & Vomiting 07/14/19 14:45 08/13/19 14:44 Piperacillin Sod/ Tazobactam Sod 2.25 gm/Sodium Chloride 110 ml @ 220 mls/hr Q8HR IVPB 07/14/19 22:00 07/21/19 21:59 07/19/19 16:43 Vancomycin HCl (Vanco rx to dose) 1 ea DAILY PRN MISC Per rx protocol 07/14/19 14:45 08/13/19 14:44 Ana Rosado MD Jul 19, 2019 17:12
--- NOTE | 2019-07-19 18:00 | NUR ---
NURSE NOTES: Dr CASTILLO is aware about WBC 23, TACHYCARDIA and other lab results and V/S, no new order to RN. Will continue to monitor.
--- NOTE | 2019-07-19 19:00 | NUR ---
NURSE NOTES: Received report from HYUN Perales. Patient is asleep, arousable to voice, lying in semi mei's; resting comfotably. No signs of pain nor acute distress noted. Checked IV site and flushed. No erythema, bleeding or infiltration noted. On G tube with no gastric residual volume; on TF Nephro @ 35mls/hr and tolerating well. On P200 mattress for wound management. Bed at lowest position, brakes on, siderails x3. Call light within reach. Will continue to monitor.
--- NOTE | 2019-07-19 19:35 | NUR ---
HAND-OFF: Report given to VILMA PURVIS.
[2019-07-19 20:00] VITALS: BP 131/73
[2019-07-19] MEDS ORDERED: Vancomycin 1gm in D5W 275ml IVPB SCH (20:00)
[2019-07-19] MEDS: Dyna-Hex 2% Top Sol 2oz TOPIC SCH (20:15)
[2019-07-19] MEDS: Epoetin Alfa-EPBX(ESRD on dialysis)4000 units/ml vial SUBQ SCH (20:42)
[2019-07-20] VITALS: BP 127/75
--- NOTE | 2019-07-20 02:48 | NUR ---
NURSE NOTES: Resting throughout the night. No significant change of condition noted. Will continue to monitor.
[2019-07-20 04:00] VITALS: BP 136/67
[2019-07-20] MEDS: Piperacillin/Tazobactam 2.25 GM in NS 110 ML IVPB SCH ×3 (06:16→21:23)
--- NOTE | 2019-07-20 07:30 | NUR ---
HAND-OFF: Report given to HYUN Orellana. Plan of care endorsed.
[2019-07-20 07:37] LABS: HEMATOCRIT 26.6 % (37.0-47.0); MEAN CORPUSCULAR VOLUME 92 FL (80-99); PLATELET COUNT 307 K/UL (150-450); RED BLOOD COUNT 2.88 M/UL (4.20-5.40); RED CELL DISTRIBUTION WIDTH 13.4 % (11.6-14.8); WHITE BLOOD COUNT 18.1 K/UL (4.8-10.8)
[2019-07-20 07:44] LABS: ANION GAP 11 mmol/L (5-15); BLOOD UREA NITROGEN 40 mg/dL (7-18); CALCIUM 9.6 MG/DL (8.5-10.1); CARBON DIOXIDE 32 MMOL/L (21-32); CHLORIDE 100 MMOL/L (98-107); CREATININE 2.5 MG/DL (0.55-1.30); PHOSPHORUS 2.4 MG/DL (2.5-4.9); POTASSIUM 3.3 MMOL/L (3.5-5.1); SODIUM 143 MMOL/L (136-145)
--- NOTE | 2019-07-20 07:54 | NUR ---
NURSE NOTES: Received pt in bed, awake and non-verbal. No s/s of pain/distress noted. IV on LFA 22g noted. G-tube feeding noted, running nephro @ 35 ml/hr. Rectal tube noted. On P200 mattress for wound management. Side rails x 3. Bed in the lowest, locked, and alarm grants and contracts assistant light within reach. Will continue to monitor
[2019-07-20 08:00] VITALS: BP 126/67
[2019-07-20] MEDS: Heparin 5000 units/ml inj SUBQ SCH ×2 (09:16→20:13)
[2019-07-20] MEDS: Lactobacillus-GG tablet GT SCH ×2 (09:16→20:10)
[2019-07-20] MEDS ORDERED: Amikacin Rx to dose MISC PRN (09:45)
--- NOTE | 2019-07-20 09:57 | Urology Progress Note ---
Assessment/Plan Status: stable Assessment/Plan: 1. Hematuria, which was previously gross and now microscopic. 2. End-stage renal disease, on hemodialysis. 3. Urinary retention history, now with incontinence. 4. Probable neurogenic bladder. 5. Pyuria. 6. Proteinuria. 7. History of acute kidney injury. monitor clinically abx as ordered I+O cath PRN cysto later HD per visual merchandising assistant f/u on blood cx Subjective Allergies: Coded Allergies: No Known Allergies (Unverified , 06/24/19) Subjective all noted, urinary incontinence, urine reported grossly non-bloody Objective Last 24 Hour Vital Signs Date Time Temp Pulse Resp B/P (MAP) Pulse Ox O2 Delivery O2 Flow Rate FiO2 07/20/19 09:16 100 126/67 07/20/19 08:25 Nasal Cannula 2.0 Nasal Cannula 2.0 07/20/19 08:00 100 07/20/19 08:00 97.2 98 18 126/67 (86) 96 07/20/19 04:00 99 07/20/19 04:00 99.7 123 20 136/67 (90) 99 07/20/19 00:00 99.9 105 20 127/75 (92) 100 07/20/19 00:00 96 07/19/19 21:00 Nasal Cannula 2.0 Nasal Cannula 2.0 07/19/19 20:24 128 131/73 07/19/19 20:00 109 07/19/19 20:00 99.3 128 17 131/73 (92) 99 07/19/19 15:51 97.0 102 20 128/64 (85) 98 07/19/19 15:17 100 07/19/19 12:59 118 07/19/19 12:00 97.7 118 18 143/80 (101) 100 Intake and Output 07/19/19 07/20/19 19:00 07:00 Intake Total 410 ml Output Total 2000 ml Balance -1590 ml Intake Free Water 100 ml IV Total 100 ml Tube Feeding 210 ml Hemodialysis UF 2000 ml # Voids 1 # Bowel Movements 1 1 Microbiology Date/Time Source Procedure Growth Status 07/19/19 13:15 Blood Blood Culture - Preliminary Resulted 07/14/19 12:30 Nasal Nares - Final Complete 07/14/19 12:30 Nasal Nares - Final Complete 07/17/19 07:00 Stool Clostridium difficile Toxin Assay - Final Complete 07/14/19 12:00 Rectum - Final NO CARBAPENEM-RESISTANT ENTEROBACTERI... Complete Current Medications Medications (Trade) Dose Ordered Sig/Joan Route PRN Reason Start Time Stop Time Status Last Admin Dose Admin Acetaminophen (Tylenol) 650 mg Q4H PRN ORAL Mild Pain (Pain Scale 1-3) 07/14/19 14:45 08/13/19 14:44 07/18/19 17:15 Amikacin Protocol (Amikacin pharmacy to dose) 1 ea DAILY PRN MISC . 07/20/19 09:45 08/19/19 09:44 Amikacin Sulfate 500 mg/Sodium Chloride 112 ml @ 112 mls/hr ONCE ONCE IV 07/20/19 11:00 07/20/19 11:59 Atorvastatin Calcium (Lipitor) 10 mg QHS GT 07/14/19 21:00 10/12/19 20:59 07/19/19 20:24 Barium Sulfate (Readi-Cat 2) 450 ml NOW PRN ORAL Radiology Procedure 07/18/19 13:45 07/20/19 13:40 Carvedilol (Coreg) 3.125 mg EVERY 12 HOURS ORAL 07/19/19 09:00 08/18/19 08:59 07/20/19 09:16 Chlorhexidine Gluconate (Cari-Hex 2%) 1 applic DAILY@2000 TOPIC 07/15/19 20:00 10/13/19 19:59 07/19/19 20:15 Dextrose (Dextrose 50%) 25 ml Q30M PRN IV Hypoglycemia 07/14/19 14:45 10/12/19 14:44 Dextrose (Dextrose 50%) 50 ml Q30M PRN IV Hypoglycemia 07/14/19 14:45 10/12/19 14:44 Epoetin Dion (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)) 4,000 unit MON-WED-MON SUBQ 07/17/19 21:00 10/15/19 20:59 07/19/19 20:42 Heparin Sodium (Porcine) (Heparin 5000 units/ml) 5,000 units EVERY 12 HOURS SUBQ 07/14/19 21:00 08/28/19 20:59 07/20/19 09:16 Hydralazine HCl (Apresoline) 10 mg Q4H PRN IV For High Blood Pressure 07/14/19 15:30 10/12/19 15:29 Lactobacillus Acidophilus (Culturelle) 1 tab Q12HR GT 07/15/19 12:14 10/13/19 12:13 07/20/19 09:16 Loperamide HCl (Imodium) 2 mg Q6H PRN NG Diarrhea 07/18/19 09:00 08/17/19 08:59 07/18/19 10:37 Morphine Sulfate (Morphine Sulfate) 2 mg Q4H PRN IVP Severe Pain (Pain Scale 7-10) 07/14/19 15:00 07/21/19 14:59 07/18/19 10:38 Ondansetron HCl (Zofran) 4 mg Q6H PRN IVP Nausea & Vomiting 07/14/19 14:45 08/13/19 14:44 Piperacillin Sod/ Tazobactam Sod 2.25 gm/Sodium Chloride 110 ml @ 220 mls/hr Q8HR IVPB 07/19/19 22:00 07/26/19 21:59 07/20/19 06:16 Vancomycin HCl (Vanco rx to dose) 1 ea DAILY PRN MISC Per rx protocol 07/14/19 14:45 08/13/19 14:44 Laboratory Tests 07/19/19 16:05: Random Vancomycin Level 13.3 07/20/19 06:40: White Blood Count 18.1H, Red Blood Count 2.88L, Hemoglobin 9.0L, Hematocrit 26.6L, Mean Corpuscular Volume 92, Mean Corpuscular Hemoglobin 31.1H, Mean Corpuscular Hemoglobin Concent 33.7, Red Cell Distribution Width 13.4, Platelet Count 307, Mean Platelet Volume 7.9, Neutrophils (%) (Auto) , Lymphocytes (%) ( Auto) , Monocytes (%) (Auto) , Eosinophils (%) (Auto) , Basophils (%) (Auto) , Neutrophils % (Manual) [Pending], Lymphocytes % (Manual) [Pending], Platelet Estimate [Pending], Platelet Morphology [Pending], Prothrombin Time 11.1, Prothromb Time International Ratio 1.0, Activated Partial Thromboplast Time 27, Sodium Level 143, Potassium Level 3.3L, Chloride Level 100, Carbon Dioxide Level 32, Anion Gap 11, Blood Urea Nitrogen 40H, Creatinine 2.5H, Estimat Glomerular Filtration Rate 21.9, Glucose Level 165H, Calcium Level 9.6, Phosphorus Level 2.4L, Magnesium Level 2.2 Height (Feet): 5 Height (Inches): 3.00 Weight (Pounds): 129 Objective exam stable Omar Mckoy MD Jul 20, 2019 09:57
--- NOTE | 2019-07-20 10:56 | General Progress Note ---
Assessment/Plan Status: stable Assessment/Plan: 89-year-old female with PMH of acute renal failure, s/p right chest wall permacath on HD, dysphasia s/p PEG, multiple pressure wounds, HTN, h/o AMS was recently discharged from this facility for KAREN/rhabdo, unwitnessed fall, was sent to shelter and returned here due to fevers. Patient was admitted for persistent fevers and for sepsis/COVID 19 rule out. ED course: BMP 8000, troponin 0 0.347, patient given for septic work-up and will be admitted for further treatment. #Sepsis #HCAP or #?abdominal source #?infected Permacath #Diarrhea #leukocytosis #ESRD on HD -continue inpatient level of care -CXR w/mild interstitial edema -follow up cultures -COVID-19 NEGATIVE, Droplet precautions d/c -c diff negative -Imodium prn -CT abd/pelvis results reviewed -? Line holiday if blood cultures positive -ID following: cont. amikacin, Zosyn, IV vanco #Hypokalemia - resolved -replaced, ctm, replace PRN #HTN #elevated troponin #BNP elevated #Sinus tachycardia - resolved -trops stable 0.254, 0.240, 0.248 -likely due to demand ischemia and ESRD -ASA, statin -cont. lasix 80 daily -hydralazine PRN for SBP >160 -cont Carvedilol 3.25 mg BID -Cardio following, reccs appreciated #Hematuria #Possible Urinary retention. #Possible neurogenic bladder. -UA w/ evidence of RBCs, 4+ blood -Urology recs appreciated #Dysphagia -s/p PEG -cont tube feeds with reduced rate once no longer NPO -Dietary and GI following, recs appreciated #Pressure wounds -Wound care consulted, recs appreciated DVT ppx - heparin sc Time spent on encounter: 35 mins, >50% on counseling, coordination of care. Time of note doesn't reflect time of encounter. Subjective Date patient seen: Jul 20, 2019 Time patient seen: 10:52 ROS Limited/Unobtainable: Yes Allergies: Coded Allergies: No Known Allergies (Unverified , 06/24/19) Subjective Follow up for recurrent sepsis, ESRD. COVID ruled out No acute events overnight per RN. Afebrile today. Objective Last 24 Hour Vital Signs Date Time Temp Pulse Resp B/P (MAP) Pulse Ox O2 Delivery O2 Flow Rate FiO2 07/20/19 09:16 100 126/67 07/20/19 08:25 Nasal Cannula 2.0 Nasal Cannula 2.0 07/20/19 08:00 100 07/20/19 08:00 97.2 98 18 126/67 (86) 96 07/20/19 04:00 99 07/20/19 04:00 99.7 123 20 136/67 (90) 99 07/20/19 00:00 99.9 105 20 127/75 (92) 100 07/20/19 00:00 96 07/19/19 21:00 Nasal Cannula 2.0 Nasal Cannula 2.0 07/19/19 20:24 128 131/73 07/19/19 20:00 109 07/19/19 20:00 99.3 128 17 131/73 (92) 99 07/19/19 15:51 97.0 102 20 128/64 (85) 98 07/19/19 15:17 100 07/19/19 12:59 118 07/19/19 12:00 97.7 118 18 143/80 (101) 100 Intake and Output 07/19/19 07/20/19 19:00 07:00 Intake Total 410 ml Output Total 2000 ml Balance -1590 ml Intake Free Water 100 ml IV Total 100 ml Tube Feeding 210 ml Hemodialysis UF 2000 ml # Voids 1 # Bowel Movements 1 1 Laboratory Tests 07/19/19 16:05: Random Vancomycin Level 13.3 07/20/19 06:40: White Blood Count 18.1H, Red Blood Count 2.88L, Hemoglobin 9.0L, Hematocrit 26.6L, Mean Corpuscular Volume 92, Mean Corpuscular Hemoglobin 31.1H, Mean Corpuscular Hemoglobin Concent 33.7, Red Cell Distribution Width 13.4, Platelet Count 307, Mean Platelet Volume 7.9, Neutrophils (%) (Auto) , Lymphocytes (%) ( Auto) , Monocytes (%) (Auto) , Eosinophils (%) (Auto) , Basophils (%) (Auto) , Differential Total Cells Counted 100, Neutrophils % (Manual) 78H, Lymphocytes % (Manual) 15L, Monocytes % (Manual) 7, Eosinophils % (Manual) 0, Basophils % ( Manual) 0, Band Neutrophils 0, Platelet Estimate Adequate, Platelet Morphology Normal, Hypochromasia 2+, Prothrombin Time 11.1, Prothromb Time International Ratio 1.0, Activated Partial Thromboplast Time 27, Sodium Level 143, Potassium Level 3.3L, Chloride Level 100, Carbon Dioxide Level 32, Anion Gap 11, Blood Urea Nitrogen 40H, Creatinine 2.5H, Estimat Glomerular Filtration Rate 21.9, Glucose Level 165H, Calcium Level 9.6, Phosphorus Level 2.4L, Magnesium Level 2.2 Height (Feet): 5 Height (Inches): 3.00 Weight (Pounds): 129 General Appearance: alert, confused Cardiovascular: normal rate, regular rhythm Respiratory/Chest: lungs clear, normal breath sounds Abdomen: non tender, soft Oumar Foy MD Jul 20, 2019 10:56
[2019-07-20] MEDS ORDERED: Amikacin 500 MG in NS 110 ML IV ONE (11:00)
[2019-07-20 12:00] VITALS: BP 96/58
--- NOTE | 2019-07-20 13:20 | Surgery Progress Note ---
Surgery Progress Note Subjective Additional Comments leukocytosis blood cx pre le with gram neg vianey line needs to come out Objective Last 24 Hour Vital Signs Date Time Temp Pulse Resp B/P (MAP) Pulse Ox O2 Delivery O2 Flow Rate FiO2 07/20/19 12:00 99.1 91 18 96/58 (71) 95 07/20/19 12:00 86 07/20/19 09:16 100 126/67 07/20/19 08:25 Nasal Cannula 2.0 Nasal Cannula 2.0 07/20/19 08:00 100 07/20/19 08:00 97.2 98 18 126/67 (86) 96 07/20/19 04:00 99 07/20/19 04:00 99.7 123 20 136/67 (90) 99 07/20/19 00:00 99.9 105 20 127/75 (92) 100 07/20/19 00:00 96 07/19/19 21:00 Nasal Cannula 2.0 Nasal Cannula 2.0 07/19/19 20:24 128 131/73 07/19/19 20:00 109 07/19/19 20:00 99.3 128 17 131/73 (92) 99 07/19/19 15:51 97.0 102 20 128/64 (85) 98 07/19/19 15:17 100 I&O Intake and Output 07/19/19 07/20/19 19:00 07:00 Intake Total 410 ml Output Total 2000 ml Balance -1590 ml Intake Free Water 100 ml IV Total 100 ml Tube Feeding 210 ml Hemodialysis UF 2000 ml # Voids 1 # Bowel Movements 1 1 Dressing: dry Wound: clean Cardiovascular: RSR Respiratory: clear Abdomen: soft, non-tender, present bowel sounds Extremities: no edema, no tenderness, no cyanosis Laboratory Tests Test 07/19/19 16:05 07/20/19 06:40 Random Vancomycin Level 13.3 ug/mL White Blood Count 18.1 K/UL (4.8-10.8) H Red Blood Count 2.88 M/UL (4.20-5.40) L Hemoglobin 9.0 G/DL (12.0-16.0) L Hematocrit 26.6 % (37.0-47.0) L Mean Corpuscular Volume 92 FL (80-99) Mean Corpuscular Hemoglobin 31.1 PG (27.0-31.0) H Mean Corpuscular Hemoglobin Concent 33.7 G/DL (32.0-36.0) Red Cell Distribution Width 13.4 % (11.6-14.8) Platelet Count 307 K/UL (150-450) Mean Platelet Volume 7.9 FL (6.5-10.1) Neutrophils (%) (Auto) % (45.0-75.0) Lymphocytes (%) (Auto) % (20.0-45.0) Monocytes (%) (Auto) % (1.0-10.0) Eosinophils (%) (Auto) % (0.0-3.0) Basophils (%) (Auto) % (0.0-2.0) Differential Total Cells Counted 100 Neutrophils % (Manual) 78 % (45-75) H Lymphocytes % (Manual) 15 % (20-45) L Monocytes % (Manual) 7 % (1-10) Eosinophils % (Manual) 0 % (0-3) Basophils % (Manual) 0 % (0-2) Band Neutrophils 0 % (0-8) Platelet Estimate Adequate Platelet Morphology Normal Hypochromasia 2+ Prothrombin Time 11.1 SEC (9.30-11.50) Prothromb Time International Ratio 1.0 (0.9-1.1) Activated Partial Thromboplast Time 27 SEC (23-33) Sodium Level 143 MMOL/L (136-145) Potassium Level 3.3 MMOL/L (3.5-5.1) L Chloride Level 100 MMOL/L (98-107) Carbon Dioxide Level 32 MMOL/L (21-32) Anion Gap 11 mmol/L (5-15) Blood Urea Nitrogen 40 mg/dL (7-18) H Creatinine 2.5 MG/DL (0.55-1.30) H Estimat Glomerular Filtration Rate 21.9 mL/min (>60) Glucose Level 165 MG/DL (74-106) H Calcium Level 9.6 MG/DL (8.5-10.1) Phosphorus Level 2.4 MG/DL (2.5-4.9) L Magnesium Level 2.2 MG/DL (1.8-2.4) Plan Problems: (1) Decubitus skin ulcer Assessment & Plan: Pt presented on admission with multiple pressure injuries. Unstageable pressure injury R shoulder(L)3.8cm x (W)3.3cm. Base of wound is 100 % necrotic and dry. Marginal erythema along borders. No erythema or induration periwound. Reabsorbed DTPI R Humerus. Base of injury has dry peeling brown skin with underlying dry pink epithelial. R elbow pressure injury has resolved. Full thickness pressure injury R hip (L)7cm x (W)13.1cm. Base of wound is 70% fibrinous slough,10% necrotic ,20% moist pink granulation. Edges are macerated.Small amt seropurulent non-odorous exudate noted. NO erythema , induration or elevation in skin temp periwound. Opened DTPI Sacrum(L)9cm x (W)15cm. Base of wound is purple,indurated with an open wound at sacrococcygeal which has 100% slough(L)1.6cm x (W)1cm. Surrounding Skin hypopigmentation with areas of excoriation extending into perineum and perianal area. Unstageable pressure injury lateral R malleolus(L)2.5cm x (W)3cm. Base of wound is 100% dry necrosis. Edges adherent to base of wound. No erythema induration or fluctuance periwound. Reabsorbing DTPI R heel. Base of Heel is boggy,non-blanching erythema with dry peeling brown skin along edges.(L)4.2cm x (W)6cm. Resolving DTPI distal/lateral R foot. Stable dry brown eschar without fluctuance or induration(L)1cm x (W)1.5cm. Resolving DTPI Lateral R 5th metatarsal.Base of injury is dry,brown without fluctuance or induration.(L)0.6cm x (W)1cm Unstageable pressure injury L Hallux(L)4cm x (W)2.7cm. Base of wound is 80% necrotic,20% slough with marginal erythema along borders. No odor or exudate noted. DTPI L Heel. Base of injury maroon and fluctuant. Periwound is boggy but blanchable(L)5.5cm x (W)6.5cm. Tx.Plan: Cleanse R shoulder with Saline. Apply Therahoney. Apply Cavilon Periwound. Cover with Optifoam drsg. Change every 3 days and prn. Cleanse R hip with Saline. Apply Therahoney.Apply Moisture Barrier Periwound. Cover with Optifoam drsg. Change Daily and prn. Cleanse Sacrum with Saline. Apply Therahoney. Apply Moisture Barrier Paste periwound. Cover with Optifoam drsg. Change every 3 days and prn. Apply Moisture Barrier Paste to perineum and perianal areas with each incontinence care. Apply Betadine to R heel,Distal/lateral R foot ,R5th metatarsal. Cover with Optifoam drsg. Change every 3 days and prn. Apply Betadine to L hallux,and L heel. Cover each site with Optifoam drsg. Change every 3 days and prn. Reposition at least every 2hours or as tolerated. Place pillow between knees. off-load heels with pillow. (2) Fever Assessment & Plan: covid negative discussed with pcp and nephro may need to remove catheter as possible etiology covid negative c diff negative blood cultures from line. if positive will remove after next HD then line holiday blood cx with gram neg d/c line (3) Protein calorie malnutrition Assessment & Plan: DAILY ESTIMATED NEEDS: Needs based on Wounds, HD 51.8kg 30-35 kcals/kg 3551-9322 total kcals 1.25-1.8 g protein/kg 65-93 g total protein Fluids per MD mL/kg . total fluid mLs NUTRITION DIAGNOSIS: * Increased kcal and prot needs r/t wound healing and renal failure as evidenced by w/ multiple pressure injuries, pending re-evaluation, s/p recent PermCath placement, HD dependent. * Swallowing difficulty R/T dysphagia as evidenced by s/p recent PEG placement, on GT feeding. CURRENT TF:Jevity 1.2 @ 50ml/hr x 24 hrs ENTERAL NUTRITION RECOMMENDATIONS: Nepro @ 38ml/hr x 24 hrs to provide 912ml, 1642kcal, 74g prot, 663ml free water - Rec TF change to Nepro- HD dependent - Initiate Nepro @ 28ml/hr x 6 hrs, increase to goal as tolerated. - HOB over 30 degrees/ water flush per MD ADDITIONAL RECOMMENDATIONS: 1) Calibrated bedscale wt 2) Wound Care: add Nephrovite x 1 add Saw 1ptk BID when TF well tolerated @ goal 3) Check phos and mag levels 4) Monitor BGs, need for nISS 5) Add probiotics: h/o LBM prev adm, prolonged use of abx (4) Pressure ulcer Anshul Nvaa Jul 20, 2019 13:20
--- NOTE | 2019-07-20 13:22 | Operative Note - PDOC ---
Operative Note Operative Note Date of Operation/Procedure: Jul 20, 2019 Pre-op Diagnosis: infected tunneled chest wall catheter HD Procedure: removal of tunneled right chest wall catheter HD Post-op Diagnosis: same as pre-op Surgeon: madan Anesthesia: other Specimen: yes Complications: none Condition: stable Estimated Blood Loss: none Drains: none Implant(s) used?: No Indications for Procedure infected right chest wall tunneled HD cath blood cx noted pre le with gram neg vianey leukocytosis fever Description of Procedure Patient made comfortable at the bedside supine position right chest wall dressings removed. Catheter sutures removed. Catheter removed and pressure held for 10 minutes and hemostasis noted. Catheter tip sent for pathology microbiology. Dressings applied. Stable post procedure. Will monitor for bleeding. Trend labs. Line . Will need 1 hemodialysis Monday as per Anshul Pak Jul 20, 2019 13:22
--- NOTE | 2019-07-20 15:18 | General Progress Note ---
Assessment/Plan Status: stable Assessment/Plan: Assessment/Plan 1. End-stage renal disease, on hemodialysis. 2. Anemia. 3. Dysphagia, status post G-tube placement. 4. Pneumonia. 5. Pancreatic cyst. 6. Hypertension. 7. Diarrhea 8. Leukocytosis C.diff>> neg imodium prn GTF abx per ID HD per nephrology repeal labs in am fu abd CT urology in put appreciated Subjective Subjective Allergies: Coded Allergies: No Known Allergies (Unverified , 06/24/19) Subjective NAD non communicative Tolerating TF - nephro at 32 Objective Last 24 Hour Vital Signs Date Time Temp Pulse Resp B/P (MAP) Pulse Ox O2 Delivery O2 Flow Rate FiO2 07/20/19 12:00 99.1 91 18 96/58 (71) 95 07/20/19 12:00 86 07/20/19 09:16 100 126/67 07/20/19 08:25 Nasal Cannula 2.0 Nasal Cannula 2.0 07/20/19 08:00 100 07/20/19 08:00 97.2 98 18 126/67 (86) 96 07/20/19 04:00 99 07/20/19 04:00 99.7 123 20 136/67 (90) 99 07/20/19 00:00 99.9 105 20 127/75 (92) 100 07/20/19 00:00 96 07/19/19 21:00 Nasal Cannula 2.0 Nasal Cannula 2.0 07/19/19 20:24 128 131/73 07/19/19 20:00 109 07/19/19 20:00 99.3 128 17 131/73 (92) 99 07/19/19 15:51 97.0 102 20 128/64 (85) 98 07/19/19 15:17 100 Intake and Output 07/19/19 07/20/19 19:00 07:00 Intake Total 410 ml Output Total 2000 ml Balance -1590 ml Intake Free Water 100 ml IV Total 100 ml Tube Feeding 210 ml Hemodialysis UF 2000 ml # Voids 1 # Bowel Movements 1 1 Laboratory Tests 07/19/19 16:05: Random Vancomycin Level 13.3 07/20/19 06:40: White Blood Count 18.1H, Red Blood Count 2.88L, Hemoglobin 9.0L, Hematocrit 26.6L, Mean Corpuscular Volume 92, Mean Corpuscular Hemoglobin 31.1H, Mean Corpuscular Hemoglobin Concent 33.7, Red Cell Distribution Width 13.4, Platelet Count 307, Mean Platelet Volume 7.9, Neutrophils (%) (Auto) , Lymphocytes (%) ( Auto) , Monocytes (%) (Auto) , Eosinophils (%) (Auto) , Basophils (%) (Auto) , Differential Total Cells Counted 100, Neutrophils % (Manual) 78H, Lymphocytes % (Manual) 15L, Monocytes % (Manual) 7, Eosinophils % (Manual) 0, Basophils % ( Manual) 0, Band Neutrophils 0, Platelet Estimate Adequate, Platelet Morphology Normal, Hypochromasia 2+, Prothrombin Time 11.1, Prothromb Time International Ratio 1.0, Activated Partial Thromboplast Time 27, Sodium Level 143, Potassium Level 3.3L, Chloride Level 100, Carbon Dioxide Level 32, Anion Gap 11, Blood Urea Nitrogen 40H, Creatinine 2.5H, Estimat Glomerular Filtration Rate 21.9, Glucose Level 165H, Calcium Level 9.6, Phosphorus Level 2.4L, Magnesium Level 2.2 Height (Feet): 5 Height (Inches): 3.00 Weight (Pounds): 129 Objective Debilitated AA woman NCAT supple CTA RR abd soft NT ND, (+) GT no edema Rajesh Bowling MD Jul 20, 2019 15:18
[2019-07-20 16:00] VITALS: BP 128/64
--- NOTE | 2019-07-20 19:21 | NUR ---
HAND-OFF: Report given to HYUN Serrano.
--- NOTE | 2019-07-20 19:30 | NUR ---
NURSE NOTES: Received report from HYUN Orellana. Patient is asleep, arousable to voice, lying in semi mei's; resting comfortably. No signs of pain nor acute distress noted. Checked IV site and flushed. No erythema, bleeding or infiltration noted. On G tube patent with no gastric residual, on TF Nephro @38mls/hr and tolerating well. On rectal tube patent and draining well to gravity. On P200 mattress for wound management. Bed at lowest position, brakes on, siderails x3. Call light within reach. Will continue to monitor.
[2019-07-20 20:00] VITALS: BP 122/73
[2019-07-20] MEDS: Dyna-Hex 2% Top Sol 2oz TOPIC SCH ×2 (20:00→20:10)
--- NOTE | 2019-07-20 20:11 | Nephrology Progress Note ---
Assessment/Plan Plan #Acute renal failure recent started on HD in 06/2018- #Sepsis #Dementia #HTN #elevated troponin #Dysphagia s/p PEG #urinary retention -- remove permacath 07/09 - next HD monday or monday- will give line hol or now - replete K cautiosly - continue lasix 80 IV daily -> switch to oral on DC - cardiology eval - monitor UOP - urology eval - continue antibiotics per ID - follow repeat blood cx - check iron panel, ferritin-> ferritin supersaturated - continue epogen 4K TIW - monitor BMP, mag and phos daily for now Subjective Subjective blood cx growing gram neg vianey permcath removed today BP stable breathing stable on NC Objective Objective Last 24 Hour Vital Signs Date Time Temp Pulse Resp B/P (MAP) Pulse Ox O2 Delivery O2 Flow Rate FiO2 07/20/19 17:34 98.4 07/20/19 16:00 101.7 91 18 128/64 (85) 99 07/20/19 16:00 96 07/20/19 12:00 99.1 91 18 96/58 (71) 95 07/20/19 12:00 86 07/20/19 09:16 100 126/67 07/20/19 08:25 Nasal Cannula 2.0 Nasal Cannula 2.0 07/20/19 08:00 100 07/20/19 08:00 97.2 98 18 126/67 (86) 96 07/20/19 04:00 99 07/20/19 04:00 99.7 123 20 136/67 (90) 99 07/20/19 00:00 99.9 105 20 127/75 (92) 100 07/20/19 00:00 96 07/19/19 21:00 Nasal Cannula 2.0 Nasal Cannula 2.0 07/19/19 20:24 128 131/73 Intake and Output 07/19/19 07/20/19 19:00 07:00 Intake Total 410 ml Output Total 2000 ml Balance -1590 ml Intake Free Water 100 ml IV Total 100 ml Tube Feeding 210 ml Hemodialysis UF 2000 ml # Voids 1 # Bowel Movements 1 1 Laboratory Tests 07/20/19 06:40: White Blood Count 18.1H, Red Blood Count 2.88L, Hemoglobin 9.0L, Hematocrit 26.6L, Mean Corpuscular Volume 92, Mean Corpuscular Hemoglobin 31.1H, Mean Corpuscular Hemoglobin Concent 33.7, Red Cell Distribution Width 13.4, Platelet Count 307, Mean Platelet Volume 7.9, Neutrophils (%) (Auto) , Lymphocytes (%) ( Auto) , Monocytes (%) (Auto) , Eosinophils (%) (Auto) , Basophils (%) (Auto) , Differential Total Cells Counted 100, Neutrophils % (Manual) 78H, Lymphocytes % (Manual) 15L, Monocytes % (Manual) 7, Eosinophils % (Manual) 0, Basophils % ( Manual) 0, Band Neutrophils 0, Platelet Estimate Adequate, Platelet Morphology Normal, Hypochromasia 2+, Prothrombin Time 11.1, Prothromb Time International Ratio 1.0, Activated Partial Thromboplast Time 27, Sodium Level 143, Potassium Level 3.3L, Chloride Level 100, Carbon Dioxide Level 32, Anion Gap 11, Blood Urea Nitrogen 40H, Creatinine 2.5H, Estimat Glomerular Filtration Rate 21.9, Glucose Level 165H, Calcium Level 9.6, Phosphorus Level 2.4L, Magnesium Level 2.2 Height (Feet): 5 Height (Inches): 3.00 Weight (Pounds): 129 Objective General: NAD, A&O x 1, self only HEENT: NCAT, EOMi, PEERLA, nares patent and no symmetrical, no tonsillar exudates, mucous membranes moist CV: RRR, no murmurs, rubs, or gallops Pulm: CTAB, No wheezes, rhonchi, or rales, no accessory muscle usage or conversational dyspnea GI: Soft, nontender, nondistended, bowel sounds present, PEG tube in place, C/D/ I Neuro: CN 2-12 grossly intact bilaterally, no focal signs. Ext: No lower extremity edema bilaterally, LE contracted bilaterally Skin: Multiple pressure ulcers noted on hip/heels Lymph: No lymphadenopathy in upper extremity and lower extremity Rory Oconnor M.D. Jul 20, 2019 20:11
--- NOTE | 2019-07-20 21:31 | Neurology Progress Note ---
Interim History Interim History ROS Limited/Unobtainable: Yes Interim History no fever today, withdraws all 4, confused Objective Physical Exam Last Vital Signs Date Time Temp Pulse Resp B/P (MAP) Pulse Ox O2 Delivery O2 Flow Rate FiO2 07/20/19 20:15 119 127/73 07/20/19 20:00 98.1 18 95 07/20/19 08:25 Nasal Cannula 2.0 Nasal Cannula 2.0 Laboratory Tests Test 07/20/19 06:40 White Blood Count 18.1 K/UL (4.8-10.8) H Red Blood Count 2.88 M/UL (4.20-5.40) L Hemoglobin 9.0 G/DL (12.0-16.0) L Hematocrit 26.6 % (37.0-47.0) L Mean Corpuscular Volume 92 FL (80-99) Mean Corpuscular Hemoglobin 31.1 PG (27.0-31.0) H Mean Corpuscular Hemoglobin Concent 33.7 G/DL (32.0-36.0) Red Cell Distribution Width 13.4 % (11.6-14.8) Platelet Count 307 K/UL (150-450) Mean Platelet Volume 7.9 FL (6.5-10.1) Neutrophils (%) (Auto) % (45.0-75.0) Lymphocytes (%) (Auto) % (20.0-45.0) Monocytes (%) (Auto) % (1.0-10.0) Eosinophils (%) (Auto) % (0.0-3.0) Basophils (%) (Auto) % (0.0-2.0) Differential Total Cells Counted 100 Neutrophils % (Manual) 78 % (45-75) H Lymphocytes % (Manual) 15 % (20-45) L Monocytes % (Manual) 7 % (1-10) Eosinophils % (Manual) 0 % (0-3) Basophils % (Manual) 0 % (0-2) Band Neutrophils 0 % (0-8) Platelet Estimate Adequate Platelet Morphology Normal Hypochromasia 2+ Prothrombin Time 11.1 SEC (9.30-11.50) Prothromb Time International Ratio 1.0 (0.9-1.1) Activated Partial Thromboplast Time 27 SEC (23-33) Sodium Level 143 MMOL/L (136-145) Potassium Level 3.3 MMOL/L (3.5-5.1) L Chloride Level 100 MMOL/L (98-107) Carbon Dioxide Level 32 MMOL/L (21-32) Anion Gap 11 mmol/L (5-15) Blood Urea Nitrogen 40 mg/dL (7-18) H Creatinine 2.5 MG/DL (0.55-1.30) H Estimat Glomerular Filtration Rate 21.9 mL/min (>60) Glucose Level 165 MG/DL (74-106) H Calcium Level 9.6 MG/DL (8.5-10.1) Phosphorus Level 2.4 MG/DL (2.5-4.9) L Magnesium Level 2.2 MG/DL (1.8-2.4) Head: normocophalic Neck: no rigidity EENT: benign Neurologic Exam Mental Status: awake Cranial Nerves III, IV, : PERRLA Objective Wakes up, tracks with eyes, tell me her name, withdraws all 4 Impression/Recommendations Problems: (1) Decubitus skin ulcer (2) Fever (3) Rhabdomyolysis (4) Elevated troponin (5) KAREN (acute kidney injury) (6) Fever (7) Elevated brain natriuretic peptide (BNP) level (8) ESRD (end stage renal disease) on dialysis (9) ESRD (end stage renal disease) on dialysis (10) Pressure ulcer (11) Protein calorie malnutrition (12) Dysphagia Status: stable Diagnostic Impression Acute encephalopathy, improved baseline dementia Sepsis Monitor neuro exam for improvement cont atb neg covid Delirium precautions Sushil Stevenson MD Jul 20, 2019 21:30
[2019-07-21] VITALS: BP 141/66
--- NOTE | 2019-07-21 01:35 | NUR ---
NURSE NOTES: Resting throughout the night. No significant change of condition noted. Will continue to monitor.
[2019-07-21 04:00] VITALS: BP 148/74
[2019-07-21] MEDS: Piperacillin/Tazobactam 2.25 GM in NS 110 ML IVPB SCH ×2 (05:06→13:31)
--- NOTE | 2019-07-21 06:39 | NUR ---
NURSE NOTES: Notified Dr. Cerna of patient's air sampling and monitoring, SR, PAC, ventricular ectopic couplets. No signs of distress noted. Vital signs stable.
--- NOTE | 2019-07-21 07:15 | NUR ---
HAND-OFF: Report given to HYUN Souza. Plan of care endorsed.
--- NOTE | 2019-07-21 07:17 | NUR ---
NURSE NOTES: Received report from Maggie/RN, Patient is asleep, Lying semi-mei's in bed, resting comfortably. On 2L nasal canula, No acute distress/SOB noted. Breathing unlabored and even. IV on left FA, intact, no bleeding or infiltration noted. Bed in low position and locked, Bed alarm engaged, Side rails up x3. Call light within reach. Encouraged to use call light when needed. Will continue plan of care.
[2019-07-21 07:46] LABS: HEMATOCRIT 27.7 % (37.0-47.0); HEMOGLOBIN 9.1 G/DL (12.0-16.0); MEAN CORPUSCULAR VOLUME 92 FL (80-99); PLATELET COUNT 339 K/UL (150-450); RED BLOOD COUNT 2.99 M/UL (4.20-5.40); RED CELL DISTRIBUTION WIDTH 13.5 % (11.6-14.8); WHITE BLOOD COUNT 19.5 K/UL (4.8-10.8)
[2019-07-21 08:00] VITALS: BP 152/79
[2019-07-21 08:14] LABS: PHOSPHORUS 5.1 MG/DL (2.5-4.9)
[2019-07-21 08:17] LABS: ANION GAP 12 mmol/L (5-15); BLOOD UREA NITROGEN 71 mg/dL (7-18); CALCIUM 9.5 MG/DL (8.5-10.1); CARBON DIOXIDE 31 MMOL/L (21-32); CHLORIDE 102 MMOL/L (98-107); CREATININE 3.9 MG/DL (0.55-1.30); POTASSIUM 3.7 MMOL/L (3.5-5.1); SODIUM 145 MMOL/L (136-145)
--- NOTE | 2019-07-21 08:31 | NUR ---
RADIOLOGY NOTE: PORTABLE CHEST X-RAY PORTABLE CHEST X-RAY COMPLETED AT 0753 HRS. FA
--- NOTE | 2019-07-21 09:25 | General Progress Note ---
Assessment/Plan Status: stable Assessment/Plan: 89-year-old female with PMH of acute renal failure, s/p right chest wall permacath on HD, dysphasia s/p PEG, multiple pressure wounds, HTN, h/o AMS was recently discharged from this facility for KAREN/rhabdo, unwitnessed fall, was sent to long-term and returned here due to fevers. Patient was admitted for persistent fevers and for sepsis/COVID 19 rule out. ED course: BMP 8000, troponin 0 0.347, patient given for septic work-up and will be admitted for further treatment. #Sepsis #Gram negative bacteremia #infected Permacath #Diarrhea #leukocytosis #ESRD on HD -continue inpatient level of care -CXR w/mild interstitial edema -follow up cultures -COVID-19 NEGATIVE, Droplet precautions d/c -c diff negative -Imodium prn -CT abd/pelvis results reviewed -Permacath removal/line holiday -ID following: cont. amikacin, Zosyn, IV vanco #Hypokalemia - resolved -replaced, ctm, replace PRN #HTN #elevated troponin #BNP elevated #Sinus tachycardia - resolved -trops stable 0.254, 0.240, 0.248 -likely due to demand ischemia and ESRD -ASA, statin -cont. lasix 80 daily -hydralazine PRN for SBP >160 -cont Carvedilol 3.25 mg BID -Cardio following, reccs appreciated #Hematuria #Possible Urinary retention. #Possible neurogenic bladder. -UA w/ evidence of RBCs, 4+ blood -Urology recs appreciated #Dysphagia -s/p PEG -cont tube feeds with reduced rate once no longer NPO -Dietary and GI following, recs appreciated #Pressure wounds -Wound care consulted, recs appreciated DVT ppx - heparin sc Time spent on encounter: 35 mins, >50% on counseling, coordination of care. Time of note doesn't reflect time of encounter. Subjective Date patient seen: Jul 21, 2019 Time patient seen: 09:22 ROS Limited/Unobtainable: Yes Allergies: Coded Allergies: No Known Allergies (Unverified , 06/24/19) Subjective Follow up for recurrent sepsis, ESRD. COVID ruled out Persistent leukocytosis Blood culture from 07/18 growing GNR Objective Last 24 Hour Vital Signs Date Time Temp Pulse Resp B/P (MAP) Pulse Ox O2 Delivery O2 Flow Rate FiO2 07/21/19 08:00 99.5 94 18 152/79 (103) 97 07/21/19 04:00 98.2 91 19 148/74 (98) 97 07/21/19 04:00 101 07/21/19 00:00 88 07/21/19 00:00 97.9 85 20 141/66 (91) 97 07/20/19 21:00 Nasal Cannula 2.0 Nasal Cannula 2.0 07/20/19 20:15 119 127/73 07/20/19 20:00 97 07/20/19 20:00 98.1 119 18 122/73 (89) 95 07/20/19 17:34 98.4 07/20/19 16:00 101.7 91 18 128/64 (85) 99 07/20/19 16:00 96 07/20/19 12:00 99.1 91 18 96/58 (71) 95 07/20/19 12:00 86 Intake and Output 07/20/19 07/21/19 19:00 07:00 # Voids 2 # Bowel Movements 1 1 Laboratory Tests 07/21/19 06:40: White Blood Count 19.5H, Red Blood Count 2.99L, Hemoglobin 9.1L, Hematocrit 27.7L, Mean Corpuscular Volume 92, Mean Corpuscular Hemoglobin 30.5, Mean Corpuscular Hemoglobin Concent 33.0, Red Cell Distribution Width 13.5, Platelet Count 339, Mean Platelet Volume 7.4, Neutrophils (%) (Auto) , Lymphocytes (%) ( Auto) , Monocytes (%) (Auto) , Eosinophils (%) (Auto) , Basophils (%) (Auto) , Neutrophils % (Manual) [Pending], Lymphocytes % (Manual) [Pending], Platelet Estimate [Pending], Platelet Morphology [Pending], Sodium Level 145, Potassium Level 3.7, Chloride Level 102, Carbon Dioxide Level 31, Anion Gap 12, Blood Urea Nitrogen 71H, Creatinine 3.9#H, Estimat Glomerular Filtration Rate 13.1, Glucose Level 120H, Calcium Level 9.5, Phosphorus Level 5.1H, Magnesium Level 2.4, Random Vancomycin Level 19.0 Height (Feet): 5 Height (Inches): 3.00 Weight (Pounds): 129 General Appearance: alert, confused Cardiovascular: normal rate, regular rhythm Respiratory/Chest: lungs clear, normal breath sounds Abdomen: non tender Oumar Foy MD Jul 21, 2019 09:25
[2019-07-21] MEDS: Lactobacillus-GG tablet GT SCH ×2 (09:31→21:18)
[2019-07-21] MEDS: Heparin 5000 units/ml inj SUBQ SCH ×2 (09:32→21:20)
--- NOTE | 2019-07-21 11:22 | Urology Progress Note ---
Assessment/Plan Status: stable Assessment/Plan: 1. Hematuria, which was previously gross and now microscopic. 2. End-stage renal disease, on hemodialysis. 3. Urinary retention history, now with incontinence. 4. Probable neurogenic bladder. 5. Pyuria. 6. Proteinuria. 7. History of acute kidney injury. 9. Nephrolithiasis. 8. Sepsis? monitor clinically abx as ordered I+O cath PRN cysto later HD per order entry representative f/u on final blood cx Subjective Allergies: Coded Allergies: No Known Allergies (Unverified , 06/24/19) Subjective all noted, urinary incontinence, urine reported grossly non-bloody Objective Last 24 Hour Vital Signs Date Time Temp Pulse Resp B/P (MAP) Pulse Ox O2 Delivery O2 Flow Rate FiO2 07/21/19 09:31 94 152/79 07/21/19 08:00 99.5 94 18 152/79 (103) 97 07/21/19 04:00 98.2 91 19 148/74 (98) 97 07/21/19 04:00 101 07/21/19 00:00 88 07/21/19 00:00 97.9 85 20 141/66 (91) 97 07/20/19 21:00 Nasal Cannula 2.0 Nasal Cannula 2.0 07/20/19 20:15 119 127/73 07/20/19 20:00 97 07/20/19 20:00 98.1 119 18 122/73 (89) 95 07/20/19 17:34 98.4 07/20/19 16:00 101.7 91 18 128/64 (85) 99 07/20/19 16:00 96 07/20/19 12:00 99.1 91 18 96/58 (71) 95 07/20/19 12:00 86 Intake and Output 07/20/19 07/21/19 19:00 07:00 # Voids 2 # Bowel Movements 1 1 Microbiology Date/Time Source Procedure Growth Status 07/19/19 13:15 Blood Blood Culture - Preliminary Gram Negative Jef Resulted 07/20/19 04:30 Sputum Induced Gram Stain - Final Resulted 07/20/19 04:30 Sputum Induced Sputum Culture Pending Resulted 07/17/19 07:00 Stool Clostridium difficile Toxin Assay - Final Complete 07/20/19 13:18 Catheter Site Catheter Tip Culture - Preliminary NO GROWTH Resulted Current Medications Medications (Trade) Dose Ordered Sig/Joan Route PRN Reason Start Time Stop Time Status Last Admin Dose Admin Acetaminophen (Tylenol) 650 mg Q4H PRN ORAL Mild Pain (Pain Scale 1-3) 07/14/19 14:45 08/13/19 14:44 07/20/19 17:04 Amikacin Protocol (Amikacin pharmacy to dose) 1 ea DAILY PRN MISC . 07/20/19 09:45 08/19/19 09:44 Atorvastatin Calcium (Lipitor) 10 mg QHS GT 07/14/19 21:00 10/12/19 20:59 07/20/19 20:10 Carvedilol (Coreg) 3.125 mg EVERY 12 HOURS ORAL 07/19/19 09:00 08/18/19 08:59 07/21/19 09:31 Chlorhexidine Gluconate (Cari-Hex 2%) 1 applic DAILY@1999 TOPIC 07/15/19 20:00 10/13/19 19:59 07/19/19 20:15 Dextrose (Dextrose 50%) 25 ml Q30M PRN IV Hypoglycemia 07/14/19 14:45 10/12/19 14:44 Dextrose (Dextrose 50%) 50 ml Q30M PRN IV Hypoglycemia 07/14/19 14:45 10/12/19 14:44 Epoetin Dion (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)) 4,000 unit MON-MON-MON SUBQ 07/17/19 21:00 10/15/19 20:59 07/19/19 20:42 Heparin Sodium (Porcine) (Heparin 5000 units/ml) 5,000 units EVERY 12 HOURS SUBQ 07/14/19 21:00 08/28/19 20:59 07/21/19 09:32 Hydralazine HCl (Apresoline) 10 mg Q4H PRN IV For High Blood Pressure 07/14/19 15:30 10/12/19 15:29 Lactobacillus Acidophilus (Culturelle) 1 tab Q12HR GT 07/15/19 12:14 10/13/19 12:13 07/21/19 09:31 Loperamide HCl (Imodium) 2 mg Q6H PRN NG Diarrhea 07/18/19 09:00 08/17/19 08:59 07/18/19 10:37 Morphine Sulfate (Morphine Sulfate) 2 mg Q4H PRN IVP Severe Pain (Pain Scale 7-10) 07/14/19 15:00 07/21/19 14:59 07/18/19 10:38 Ondansetron HCl (Zofran) 4 mg Q6H PRN IVP Nausea & Vomiting 07/14/19 14:45 08/13/19 14:44 Piperacillin Sod/ Tazobactam Sod 2.25 gm/Sodium Chloride 110 ml @ 220 mls/hr Q8HR IVPB 07/19/19 22:00 07/26/19 21:59 07/21/19 05:06 Vancomycin HCl (Vanco rx to dose) 1 ea DAILY PRN MISC Per rx protocol 07/14/19 14:45 08/13/19 14:44 Laboratory Tests 07/21/19 06:40: White Blood Count 19.5H, Red Blood Count 2.99L, Hemoglobin 9.1L, Hematocrit 27.7L, Mean Corpuscular Volume 92, Mean Corpuscular Hemoglobin 30.5, Mean Corpuscular Hemoglobin Concent 33.0, Red Cell Distribution Width 13.5, Platelet Count 339, Mean Platelet Volume 7.4, Neutrophils (%) (Auto) , Lymphocytes (%) ( Auto) , Monocytes (%) (Auto) , Eosinophils (%) (Auto) , Basophils (%) (Auto) , Neutrophils % (Manual) 80H, Lymphocytes % (Manual) 13L, Monocytes % (Manual) 7, Eosinophils % (Manual) 0, Basophils % (Manual) 0, Band Neutrophils 0, Platelet Estimate Adequate, Platelet Morphology Normal, Hypochromasia 2+, Sodium Level 145, Potassium Level 3.7, Chloride Level 102, Carbon Dioxide Level 31, Anion Gap 12, Blood Urea Nitrogen 71H, Creatinine 3.9#H, Estimat Glomerular Filtration Rate 13.1, Glucose Level 120H, Calcium Level 9.5, Phosphorus Level 5.1H, Magnesium Level 2.4, Random Vancomycin Level 19.0 Height (Feet): 5 Height (Inches): 3.00 Weight (Pounds): [address] A/P (07/18) noted Omar Mckoy MD Jul 21, 2019 11:22
[2019-07-21 12:13] VITALS: BP 133/69
--- NOTE | 2019-07-21 12:19 | Nephrology Progress Note ---
Assessment/Plan Plan #Acute renal failure recent started on HD in 06/2018- #Sepsis #Dementia #HTN #elevated troponin #Dysphagia s/p PEG #urinary retention - permacath removed 07/19 - next HD monday or monday- will give line holiday or now - continue lasix 80 IV daily -> switch to oral on DC - cardiology eval - monitor UOP - urology eval - continue antibiotics per ID - follow repeat blood cx - check iron panel, ferritin-> ferritin supersaturated - continue epogen 4K TIW - monitor BMP, mag and phos daily for now Subjective Subjective blood cx growing gram neg vianey permcath removed 07/19 BP stable breathing stable on NC persistent leukoocytosis Objective Objective Last 24 Hour Vital Signs Date Time Temp Pulse Resp B/P (MAP) Pulse Ox O2 Delivery O2 Flow Rate FiO2 07/21/19 12:13 96.8 120 19 133/69 (90) 95 07/21/19 09:31 94 152/79 07/21/19 09:00 Nasal Cannula 2.0 Nasal Cannula 2.0 07/21/19 08:00 99.5 94 18 152/79 (103) 97 07/21/19 08:00 122 07/21/19 04:00 98.2 91 19 148/74 (98) 97 07/21/19 04:00 101 07/21/19 00:00 88 07/21/19 00:00 97.9 85 20 141/66 (91) 97 07/20/19 21:00 Nasal Cannula 2.0 Nasal Cannula 2.0 07/20/19 20:15 119 127/73 07/20/19 20:00 97 07/20/19 20:00 98.1 119 18 122/73 (89) 95 07/20/19 17:34 98.4 07/20/19 16:00 101.7 91 18 128/64 (85) 99 07/20/19 16:00 96 Intake and Output 07/20/19 07/21/19 19:00 07:00 # Voids 2 # Bowel Movements 1 1 Laboratory Tests 07/21/19 06:40: White Blood Count 19.5H, Red Blood Count 2.99L, Hemoglobin 9.1L, Hematocrit 27.7L, Mean Corpuscular Volume 92, Mean Corpuscular Hemoglobin 30.5, Mean Corpuscular Hemoglobin Concent 33.0, Red Cell Distribution Width 13.5, Platelet Count 339, Mean Platelet Volume 7.4, Neutrophils (%) (Auto) , Lymphocytes (%) ( Auto) , Monocytes (%) (Auto) , Eosinophils (%) (Auto) , Basophils (%) (Auto) , Neutrophils % (Manual) 80H, Lymphocytes % (Manual) 13L, Monocytes % (Manual) 7, Eosinophils % (Manual) 0, Basophils % (Manual) 0, Band Neutrophils 0, Platelet Estimate Adequate, Platelet Morphology Normal, Hypochromasia 2+, Sodium Level 145, Potassium Level 3.7, Chloride Level 102, Carbon Dioxide Level 31, Anion Gap 12, Blood Urea Nitrogen 71H, Creatinine 3.9#H, Estimat Glomerular Filtration Rate 13.1, Glucose Level 120H, Calcium Level 9.5, Phosphorus Level 5.1H, Magnesium Level 2.4, Random Vancomycin Level 19.0 Height (Feet): 5 Height (Inches): 3.00 Weight (Pounds): 129 Objective General: NAD, A&O x 1, self only HEENT: NCAT, EOMi, PEERLA, nares patent and no symmetrical, no tonsillar exudates, mucous membranes moist CV: RRR, no murmurs, rubs, or gallops Pulm: CTAB, No wheezes, rhonchi, or rales, no accessory muscle usage or conversational dyspnea GI: Soft, nontender, nondistended, bowel sounds present, PEG tube in place, C/D/ I Neuro: CN 2-12 grossly intact bilaterally, no focal signs. Ext: No lower extremity edema bilaterally, LE contracted bilaterally Skin: Multiple pressure ulcers noted on hip/heels Lymph: No lymphadenopathy in upper extremity and lower extremity Rory Oconnor M.D. Jul 21, 2019 12:19
--- NOTE | 2019-07-21 13:14 | General Progress Note ---
Assessment/Plan Status: stable Assessment/Plan: Assessment/Plan 1. End-stage renal disease, on hemodialysis. 2. Anemia. 3. Dysphagia, status post G-tube placement. 4. Pneumonia. 5. Pancreatic cyst. 6. Hypertension. 7. Diarrhea 8. Leukocytosis Recommendations C.diff>> neg imodium prn GTF abx per ID HD per nephrology repeal labs in am fu abd CT--> no acute intra abdominal pathology urology in put appreciated Subjective Allergies: Coded Allergies: No Known Allergies (Unverified , 06/24/19) Subjective NAD non communicative Tolerating TF Objective Last 24 Hour Vital Signs Date Time Temp Pulse Resp B/P (MAP) Pulse Ox O2 Delivery O2 Flow Rate FiO2 07/21/19 12:13 96.8 120 19 133/69 (90) 95 07/21/19 09:31 94 152/79 07/21/19 09:00 Nasal Cannula 2.0 Nasal Cannula 2.0 07/21/19 08:00 99.5 94 18 152/79 (103) 97 07/21/19 08:00 122 07/21/19 04:00 98.2 91 19 148/74 (98) 97 07/21/19 04:00 101 07/21/19 00:00 88 07/21/19 00:00 97.9 85 20 141/66 (91) 97 07/20/19 21:00 Nasal Cannula 2.0 Nasal Cannula 2.0 07/20/19 20:15 119 127/73 07/20/19 20:00 97 07/20/19 20:00 98.1 119 18 122/73 (89) 95 07/20/19 17:34 98.4 07/20/19 16:00 101.7 91 18 128/64 (85) 99 07/20/19 16:00 96 Intake and Output 07/20/19 07/21/19 19:00 07:00 # Voids 2 # Bowel Movements 1 1 Laboratory Tests 07/21/19 06:40: White Blood Count 19.5H, Red Blood Count 2.99L, Hemoglobin 9.1L, Hematocrit 27.7L, Mean Corpuscular Volume 92, Mean Corpuscular Hemoglobin 30.5, Mean Corpuscular Hemoglobin Concent 33.0, Red Cell Distribution Width 13.5, Platelet Count 339, Mean Platelet Volume 7.4, Neutrophils (%) (Auto) , Lymphocytes (%) ( Auto) , Monocytes (%) (Auto) , Eosinophils (%) (Auto) , Basophils (%) (Auto) , Neutrophils % (Manual) 80H, Lymphocytes % (Manual) 13L, Monocytes % (Manual) 7, Eosinophils % (Manual) 0, Basophils % (Manual) 0, Band Neutrophils 0, Platelet Estimate Adequate, Platelet Morphology Normal, Hypochromasia 2+, Sodium Level 145, Potassium Level 3.7, Chloride Level 102, Carbon Dioxide Level 31, Anion Gap 12, Blood Urea Nitrogen 71H, Creatinine 3.9#H, Estimat Glomerular Filtration Rate 13.1, Glucose Level 120H, Calcium Level 9.5, Phosphorus Level 5.1H, Magnesium Level 2.4, Random Vancomycin Level 19.0 Height (Feet): 5 Height (Inches): 3.00 Weight (Pounds): 129 Objective Debilitated AA woman NCAT supple CTA RR abd soft NT ND, (+) GT no edema Rajesh Bowling MD Jul 21, 2019 13:14
--- NOTE | 2019-07-21 14:45 | Infectious Diseases Prog Note ---
Assessment/Plan Assessment/Plan ASSESSMENT AND PLAN: 1. sepsis, fevers, leukocytosis, ? pna, diarrhea, covid-19 test negative, ? right hip wound infection gram neg bacteremia, ? line infection - vancomycin and zosyn, add amikacin - hd line removed - wound care per surgery - monitor labs - monitor chest x-ray - d/w Dr. Oconnor from renal medicine about line removal and management - check sputum culture - c.diff. - negative 2. The patient has end-stage renal disease, on hemodialysis and PermCath. 3. Skin care protocol. 4. Anemia. 5. The patient has history of dysphagia, on G-tube. 6. Aspiration risk. 7. Hypertension. 8. Altered mental status. 9. History of Strep viridans bacteremia. 10. Hypertension, treatment per primary care team. 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 12. History of non-STEMI and CAD. 13. History of rhabdomyolysis. 14. History of acute renal failure, on dialysis. 15. Coronary artery disease. 16. No known drug allergies. 17. Social history negative. 18. Family history noncontributory. 19. MAR was noted. 20. Case discussed with RN. 21. Isolation in the acute care. 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 Subjective Constitutional: Reports: fever HEENT: Denies: congestion Respiratory: Denies: shortness of breath Cardiovascular: Denies: chest pain Gastrointestinal/Abdominal: Denies: nausea, vomiting, diarrhea Genitourinary: Reports: other - no hargrove, hd patient Neurologic: Denies: headache Psychiatric: Denies: depression Skin: Denies: rash Hematologic: Denies: bleeding Musculoskeletal: Denies: pain Allergies: Coded Allergies: No Known Allergies (Unverified , 06/24/19) Objective Vital Signs Last 24 Hour Vital Signs Date Time Temp Pulse Resp B/P (MAP) Pulse Ox O2 Delivery O2 Flow Rate FiO2 07/21/19 12:13 96.8 120 19 133/69 (90) 95 07/21/19 12:00 99 07/21/19 09:31 94 152/79 07/21/19 09:00 Nasal Cannula 2.0 Nasal Cannula 2.0 07/21/19 08:00 99.5 94 18 152/79 (103) 97 07/21/19 08:00 122 07/21/19 04:00 98.2 91 19 148/74 (98) 97 07/21/19 04:00 101 07/21/19 00:00 88 07/21/19 00:00 97.9 85 20 141/66 (91) 97 07/20/19 21:00 Nasal Cannula 2.0 Nasal Cannula 2.0 07/20/19 20:15 119 127/73 07/20/19 20:00 97 07/20/19 20:00 98.1 119 18 122/73 (89) 95 07/20/19 17:34 98.4 07/20/19 16:00 101.7 91 18 128/64 (85) 99 07/20/19 16:00 96 Height (Feet): 5 Height (Inches): 3.00 Weight (Pounds): 129 General Appearance: no acute distress HEENT: normocephalic, atraumatic, anicteric, mucous membranes moist Respiratory/Chest: no respiratory distress, no accessory muscle use, crackles/ rales, rhonchi - bilaterally Cardiovascular: normal rate, regular rhythm, no gallop/murmur, no JVD Abdomen: normal bowel sounds, soft, non tender, no organomegaly, non distended Genitourinary: other - no hargrove Extremities: no cyanosis Skin: no rash 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 Findings: Pulmonary vessel congestion noted. Heart is enlarged. Interstitial edema is mild. Bones are osteopenic. IMPRESSION: Mild interstitial edema Chest x-ray - 07/19/19 - Impression: Worsening of aeration with increasing haziness of the pulmonary vascularity and development of hazy perihilar airspace opacities. Findings likely related to fluid overload/CHF. Superimposed infection however not excluded. Clinical correlation and follow-up recommended. CT scan of abdomen and pelvis: IMPRESSION: Limited exam without intravenous contrast. Within these limitations: * Patchy opacities in the lung bases, left greater than right. Findings may related to subsegmental atelectasis. Possibility of pneumonia however not excluded. * Extensive coronary arterial calcifications. * Dialysis catheter partially visualized. * Indwelling gastrostomy and rectal tubes. * No intraabdominal fluid collection/abscess. * Interval removal of Hargrove catheter. Bladder is mildly distended but otherwise unremarkable. * Extensive atherosclerotic vascular calcifications. * Irregularity the skin overlying the inferior aspect of the sacrum. Correlate clinically to exclude the possibility of sacral decubitus ulcer. No subcutaneous fluid collection/abscess. * Osteopenia and severe degenerative changes of the spine with unchanged vertebral body compression deformities. * 1.5 cm cystic l Microbiology Date/Time Source Procedure Growth Status 07/19/19 13:15 Blood Blood Culture - Preliminary Gram Negative Jef Resulted 07/19/19 11:55 Blood Blood Culture - Preliminary NO GROWTH AFTER 24 HOURS Resulted 07/19/19 11:45 Blood Blood Culture - Preliminary NO GROWTH AFTER 24 HOURS Resulted 07/20/19 04:30 Sputum Induced Gram Stain - Final Resulted 07/20/19 04:30 Sputum Induced Sputum Culture Pending Resulted 07/20/19 13:18 Catheter Site Catheter Tip Culture - Preliminary NO GROWTH Resulted Laboratory Tests Test 07/21/19 06:40 White Blood Count 19.5 K/UL (4.8-10.8) H Red Blood Count 2.99 M/UL (4.20-5.40) L Hemoglobin 9.1 G/DL (12.0-16.0) L Hematocrit 27.7 % (37.0-47.0) L Mean Corpuscular Volume 92 FL (80-99) Mean Corpuscular Hemoglobin 30.5 PG (27.0-31.0) Mean Corpuscular Hemoglobin Concent 33.0 G/DL (32.0-36.0) Red Cell Distribution Width 13.5 % (11.6-14.8) Platelet Count 339 K/UL (150-450) Mean Platelet Volume 7.4 FL (6.5-10.1) Neutrophils (%) (Auto) % (45.0-75.0) Lymphocytes (%) (Auto) % (20.0-45.0) Monocytes (%) (Auto) % (1.0-10.0) Eosinophils (%) (Auto) % (0.0-3.0) Basophils (%) (Auto) % (0.0-2.0) Neutrophils % (Manual) 80 % (45-75) H Lymphocytes % (Manual) 13 % (20-45) L Monocytes % (Manual) 7 % (1-10) Eosinophils % (Manual) 0 % (0-3) Basophils % (Manual) 0 % (0-2) Band Neutrophils 0 % (0-8) Platelet Estimate Adequate Platelet Morphology Normal Hypochromasia 2+ Sodium Level 145 MMOL/L (136-145) Potassium Level 3.7 MMOL/L (3.5-5.1) Chloride Level 102 MMOL/L (98-107) Carbon Dioxide Level 31 MMOL/L (21-32) Anion Gap 12 mmol/L (5-15) Blood Urea Nitrogen 71 mg/dL (7-18) H Creatinine 3.9 MG/DL (0.55-1.30) #H Estimat Glomerular Filtration Rate 13.1 mL/min (>60) Glucose Level 120 MG/DL (74-106) H Calcium Level 9.5 MG/DL (8.5-10.1) Phosphorus Level 5.1 MG/DL (2.5-4.9) H Magnesium Level 2.4 MG/DL (1.8-2.4) Random Vancomycin Level 19.0 ug/mL Current Medications Medications (Trade) Dose Ordered Sig/Joan Route PRN Reason Start Time Stop Time Status Last Admin Dose Admin Acetaminophen (Tylenol) 650 mg Q4H PRN ORAL Mild Pain (Pain Scale 1-3) 07/14/19 14:45 08/13/19 14:44 07/20/19 17:04 Amikacin Protocol (Amikacin pharmacy to dose) 1 ea DAILY PRN MISC . 07/20/19 09:45 08/19/19 09:44 Atorvastatin Calcium (Lipitor) 10 mg QHS GT 07/14/19 21:00 10/12/19 20:59 07/20/19 20:10 Carvedilol (Coreg) 3.125 mg EVERY 12 HOURS ORAL 07/19/19 09:00 08/18/19 08:59 07/21/19 09:31 Chlorhexidine Gluconate (Cari-Hex 2%) 1 applic DAILY@1999 TOPIC 07/15/19 20:00 10/13/19 19:59 07/19/19 20:15 Dextrose (Dextrose 50%) 25 ml Q30M PRN IV Hypoglycemia 07/14/19 14:45 10/12/19 14:44 Dextrose (Dextrose 50%) 50 ml Q30M PRN IV Hypoglycemia 07/14/19 14:45 10/12/19 14:44 Epoetin Dion (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)) 4,000 unit MON-MON-MON SUBQ 07/17/19 21:00 10/15/19 20:59 07/19/19 20:42 Heparin Sodium (Porcine) (Heparin 5000 units/ml) 5,000 units EVERY 12 HOURS SUBQ 07/14/19 21:00 08/28/19 20:59 07/21/19 09:32 Hydralazine HCl (Apresoline) 10 mg Q4H PRN IV For High Blood Pressure 07/14/19 15:30 10/12/19 15:29 Lactobacillus Acidophilus (Culturelle) 1 tab Q12HR GT 07/15/19 12:14 10/13/19 12:13 07/21/19 09:31 Loperamide HCl (Imodium) 2 mg Q6H PRN NG Diarrhea 07/18/19 09:00 08/17/19 08:59 07/18/19 10:37 Morphine Sulfate (Morphine Sulfate) 2 mg Q4H PRN IVP Severe Pain (Pain Scale 7-10) 07/14/19 15:00 07/21/19 14:59 07/18/19 10:38 Ondansetron HCl (Zofran) 4 mg Q6H PRN IVP Nausea & Vomiting 07/14/19 14:45 08/13/19 14:44 Piperacillin Sod/ Tazobactam Sod 2.25 gm/Sodium Chloride 110 ml @ 220 mls/hr Q8HR IVPB 07/19/19 22:00 07/26/19 21:59 07/21/19 13:31 Vancomycin HCl (Vanco rx to dose) 1 ea DAILY PRN MISC Per rx protocol 07/14/19 14:45 08/13/19 14:44 Ana Rosado MD Jul 21, 2019 14:45
[2019-07-21 16:00] VITALS: BP 125/73
--- NOTE | 2019-07-21 17:05 | Surgery Progress Note ---
Surgery Progress Note Subjective Procedure Performed removal of tunneled right chest wall catheter HD Additional Comments Leukocytosis, line removed, otherwise stable, line holiday for now off antibiotics labs are stable Objective Last 24 Hour Vital Signs Date Time Temp Pulse Resp B/P (MAP) Pulse Ox O2 Delivery O2 Flow Rate FiO2 07/21/19 16:00 99.1 125 19 125/73 (90) 95 07/21/19 12:13 96.8 120 19 133/69 (90) 95 07/21/19 12:00 99 07/21/19 09:31 94 152/79 07/21/19 09:00 Nasal Cannula 2.0 Nasal Cannula 2.0 07/21/19 08:00 99.5 94 18 152/79 (103) 97 07/21/19 08:00 122 07/21/19 04:00 98.2 91 19 148/74 (98) 97 07/21/19 04:00 101 07/21/19 00:00 88 07/21/19 00:00 97.9 85 20 141/66 (91) 97 07/20/19 21:00 Nasal Cannula 2.0 Nasal Cannula 2.0 07/20/19 20:15 119 127/73 07/20/19 20:00 97 07/20/19 20:00 98.1 119 18 122/73 (89) 95 07/20/19 17:34 98.4 I&O Intake and Output 07/20/19 07/21/19 19:00 07:00 # Voids 2 # Bowel Movements 1 1 Dressing: dry Wound: clean Cardiovascular: RSR Respiratory: clear Abdomen: soft, non-tender, present bowel sounds Extremities: no edema, no tenderness, no cyanosis Laboratory Tests Test 07/21/19 06:40 White Blood Count 19.5 K/UL (4.8-10.8) H Red Blood Count 2.99 M/UL (4.20-5.40) L Hemoglobin 9.1 G/DL (12.0-16.0) L Hematocrit 27.7 % (37.0-47.0) L Mean Corpuscular Volume 92 FL (80-99) Mean Corpuscular Hemoglobin 30.5 PG (27.0-31.0) Mean Corpuscular Hemoglobin Concent 33.0 G/DL (32.0-36.0) Red Cell Distribution Width 13.5 % (11.6-14.8) Platelet Count 339 K/UL (150-450) Mean Platelet Volume 7.4 FL (6.5-10.1) Neutrophils (%) (Auto) % (45.0-75.0) Lymphocytes (%) (Auto) % (20.0-45.0) Monocytes (%) (Auto) % (1.0-10.0) Eosinophils (%) (Auto) % (0.0-3.0) Basophils (%) (Auto) % (0.0-2.0) Neutrophils % (Manual) 80 % (45-75) H Lymphocytes % (Manual) 13 % (20-45) L Monocytes % (Manual) 7 % (1-10) Eosinophils % (Manual) 0 % (0-3) Basophils % (Manual) 0 % (0-2) Band Neutrophils 0 % (0-8) Platelet Estimate Adequate Platelet Morphology Normal Hypochromasia 2+ Sodium Level 145 MMOL/L (136-145) Potassium Level 3.7 MMOL/L (3.5-5.1) Chloride Level 102 MMOL/L (98-107) Carbon Dioxide Level 31 MMOL/L (21-32) Anion Gap 12 mmol/L (5-15) Blood Urea Nitrogen 71 mg/dL (7-18) H Creatinine 3.9 MG/DL (0.55-1.30) #H Estimat Glomerular Filtration Rate 13.1 mL/min (>60) Glucose Level 120 MG/DL (74-106) H Calcium Level 9.5 MG/DL (8.5-10.1) Phosphorus Level 5.1 MG/DL (2.5-4.9) H Magnesium Level 2.4 MG/DL (1.8-2.4) Random Vancomycin Level 19.0 ug/mL Plan Problems: (1) Decubitus skin ulcer Assessment & Plan: Pt presented on admission with multiple pressure injuries. Unstageable pressure injury R shoulder(L)3.8cm x (W)3.3cm. Base of wound is 100 % necrotic and dry. Marginal erythema along borders. No erythema or induration periwound. Reabsorbed DTPI R Humerus. Base of injury has dry peeling brown skin with underlying dry pink epithelial. R elbow pressure injury has resolved. Full thickness pressure injury R hip (L)7cm x (W)13.1cm. Base of wound is 70% fibrinous slough,10% necrotic ,20% moist pink granulation. Edges are macerated.Small amt seropurulent non-odorous exudate noted. NO erythema , induration or elevation in skin temp periwound. Opened DTPI Sacrum(L)9cm x (W)15cm. Base of wound is purple,indurated with an open wound at sacrococcygeal which has 100% slough(L)1.6cm x (W)1cm. Surrounding Skin hypopigmentation with areas of excoriation extending into perineum and perianal area. Unstageable pressure injury lateral R malleolus(L)2.5cm x (W)3cm. Base of wound is 100% dry necrosis. Edges adherent to base of wound. No erythema induration or fluctuance periwound. Reabsorbing DTPI R heel. Base of Heel is boggy,non-blanching erythema with dry peeling brown skin along edges.(L)4.2cm x (W)6cm. Resolving DTPI distal/lateral R foot. Stable dry brown eschar without fluctuance or induration(L)1cm x (W)1.5cm. Resolving DTPI Lateral R 5th metatarsal.Base of injury is dry,brown without fluctuance or induration.(L)0.6cm x (W)1cm Unstageable pressure injury L Hallux(L)4cm x (W)2.7cm. Base of wound is 80% necrotic,20% slough with marginal erythema along borders. No odor or exudate noted. DTPI L Heel. Base of injury maroon and fluctuant. Periwound is boggy but blanchable(L)5.5cm x (W)6.5cm. Tx.Plan: Cleanse R shoulder with Saline. Apply Therahoney. Apply Cavilon Periwound. Cover with Optifoam drsg. Change every 3 days and prn. Cleanse R hip with Saline. Apply Therahoney.Apply Moisture Barrier Periwound. Cover with Optifoam drsg. Change Daily and prn. Cleanse Sacrum with Saline. Apply Therahoney. Apply Moisture Barrier Paste periwound. Cover with Optifoam drsg. Change every 3 days and prn. Apply Moisture Barrier Paste to perineum and perianal areas with each incontinence care. Apply Betadine to R heel,Distal/lateral R foot ,R5th metatarsal. Cover with Optifoam drsg. Change every 3 days and prn. Apply Betadine to L hallux,and L heel. Cover each site with Optifoam drsg. Change every 3 days and prn. Reposition at least every 2hours or as tolerated. Place pillow between knees. off-load heels with pillow. (2) Fever Assessment & Plan: covid negative discussed with pcp and nephro may need to remove catheter as possible etiology covid negative c diff negative blood cultures from line. if positive will remove after next HD then line holiday blood cx with gram neg d/c line Line removed see note Line holiday Antibiotics as per infectious disease (3) Protein calorie malnutrition Assessment & Plan: DAILY ESTIMATED NEEDS: Needs based on Wounds, HD 51.8kg 30-35 kcals/kg [id number] total kcals 1.25-1.8 g protein/kg 65-93 g total protein Fluids per MD mL/kg . total fluid mLs NUTRITION DIAGNOSIS: * Increased kcal and prot needs r/t wound healing and renal failure as evidenced by w/ multiple pressure injuries, pending re-evaluation, s/p recent PermCath placement, HD dependent. * Swallowing difficulty R/T dysphagia as evidenced by s/p recent PEG placement, on GT feeding. CURRENT TF:Jevity 1.2 @ 50ml/hr x 24 hrs ENTERAL NUTRITION RECOMMENDATIONS: Nepro @ 38ml/hr x 24 hrs to provide 912ml, 1642kcal, 74g prot, 663ml free water - Rec TF change to Nepro- HD dependent - Initiate Nepro @ 28ml/hr x 6 hrs, increase to goal as tolerated. - HOB over 30 degrees/ water flush per MD ADDITIONAL RECOMMENDATIONS: 1) Calibrated bedscale wt 2) Wound Care: add Nephrovite x 1 add Swa 1ptk BID when TF well tolerated @ goal 3) Check phos and mag levels 4) Monitor BGs, need for nISS 5) Add probiotics: h/o LBM prev adm, prolonged use of abx (4) Pressure ulcer Anshul Nava Jul 21, 2019 17:05
[2019-07-21] MEDS ORDERED: NS 275ml ONE ×2 (17:36→17:42)
[2019-07-21] MEDS ORDERED: Tubing IV Secondary IV ONE ×2 (17:36→17:42)
--- NOTE | 2019-07-21 19:26 | Neurology Progress Note ---
Interim History Interim History ROS Limited/Unobtainable: Yes Interim History lethargic, gram neg rods in blood Objective Physical Exam Last Vital Signs Date Time Temp Pulse Resp B/P (MAP) Pulse Ox O2 Delivery O2 Flow Rate FiO2 07/21/19 16:00 126 07/21/19 16:00 99.1 19 125/73 (90) 95 07/21/19 09:00 Nasal Cannula 2.0 Nasal Cannula 2.0 Laboratory Tests Test 07/21/19 06:40 White Blood Count 19.5 K/UL (4.8-10.8) H Red Blood Count 2.99 M/UL (4.20-5.40) L Hemoglobin 9.1 G/DL (12.0-16.0) L Hematocrit 27.7 % (37.0-47.0) L Mean Corpuscular Volume 92 FL (80-99) Mean Corpuscular Hemoglobin 30.5 PG (27.0-31.0) Mean Corpuscular Hemoglobin Concent 33.0 G/DL (32.0-36.0) Red Cell Distribution Width 13.5 % (11.6-14.8) Platelet Count 339 K/UL (150-450) Mean Platelet Volume 7.4 FL (6.5-10.1) Neutrophils (%) (Auto) % (45.0-75.0) Lymphocytes (%) (Auto) % (20.0-45.0) Monocytes (%) (Auto) % (1.0-10.0) Eosinophils (%) (Auto) % (0.0-3.0) Basophils (%) (Auto) % (0.0-2.0) Neutrophils % (Manual) 80 % (45-75) H Lymphocytes % (Manual) 13 % (20-45) L Monocytes % (Manual) 7 % (1-10) Eosinophils % (Manual) 0 % (0-3) Basophils % (Manual) 0 % (0-2) Band Neutrophils 0 % (0-8) Platelet Estimate Adequate Platelet Morphology Normal Hypochromasia 2+ Sodium Level 145 MMOL/L (136-145) Potassium Level 3.7 MMOL/L (3.5-5.1) Chloride Level 102 MMOL/L (98-107) Carbon Dioxide Level 31 MMOL/L (21-32) Anion Gap 12 mmol/L (5-15) Blood Urea Nitrogen 71 mg/dL (7-18) H Creatinine 3.9 MG/DL (0.55-1.30) #H Estimat Glomerular Filtration Rate 13.1 mL/min (>60) Glucose Level 120 MG/DL (74-106) H Calcium Level 9.5 MG/DL (8.5-10.1) Phosphorus Level 5.1 MG/DL (2.5-4.9) H Magnesium Level 2.4 MG/DL (1.8-2.4) Random Vancomycin Level 19.0 ug/mL Head: normocophalic Neck: no rigidity EENT: benign Neurologic Exam Mental Status: awake Cranial Nerves III, IV, : PERRLA Objective Wakes up, tracks with eyes, tell me her name, withdraws all 4 Impression/Recommendations Problems: (1) Decubitus skin ulcer (2) Fever (3) Rhabdomyolysis (4) Elevated troponin (5) KAREN (acute kidney injury) (6) Fever (7) Elevated brain natriuretic peptide (BNP) level (8) ESRD (end stage renal disease) on dialysis (9) ESRD (end stage renal disease) on dialysis (10) Pressure ulcer (11) Protein calorie malnutrition (12) Dysphagia Status: stable Diagnostic Impression Acute encephalopathy, improved baseline dementia Sepsis Monitor neuro exam for improvement cont atb neg covid Delirium precautions Sushil Stevenson MD Jul 21, 2019 19:26
--- NOTE | 2019-07-21 19:42 | NUR ---
HAND-OFF: Report given to Shannon/PITO, Patient is in stable condition. Endorsed plan of care.
[2019-07-21 20:00] VITALS: BP 132/65
[2019-07-21] MEDS: Dyna-Hex 2% Top Sol 2oz TOPIC SCH (20:00)
--- NOTE | 2019-07-21 20:00 | NUR ---
NURSE NOTES: RECEIVED PATIENT LYING IN BED, EYES CLOSED, NON VERBAL, ALL NEEDS ANTICIPATED AND MET BY NURSING STAFF, TOLERATING 02 2L VIA NC, NO SIGNS AND SYMPTOMS OF ACUTE CARDIO RESPIRATORY DISTRESS/SHORTNESS OF BREATH, NO PERIPHERAL EDEMA NOTED. ASPIRATION PRECAUTIONS OBSERVED AT ALL TIMES, HEAD OF BED ELEVATED. IV INTACT TO LEFT AC/GAUGE 18 HL, NO REDNESS/SWELLING NOTED. G TUBE INTACT, FLUSHED FOR PATENCY, TOLERATING FEEDING, NO GASTRIC RESIDUAL ASPIRATED, NO N/V - RECTAL TUBE INTACT, BROWN/LIQUID STOOL NOTED IN TUBING. DRESSINGS DRY AND INTACT, BILATERAL FEET, RIGHT SHOULDER, RIGHT HIP AND SACRAL, REPOSITIONED FOR COMFORT/PRESSURE RELIEF, P200 MATTRESS FOR WOUND MANAGEMENT. SIDE RAILS UP X3/BED IN LOWEST POS Addendum: 07/22/19 at 0122 by JOSELO CUNNINGHAM LVN POSITION FOR SAFETY, BED ALARM ACTIVATED. HOURLY ROUNDING FOR SAFETY/NEEDS. CONTINUE WITH CURRENT PLAN OF CARE.
[2019-07-22] VITALS: BP 124/66
[2019-07-22 04:00] VITALS: BP 122/69
[2019-07-22 05:10] LABS: ALANINE AMINOTRANSFERASE 37 U/L (12-78); ALBUMIN 3.3 G/DL (3.4-5.0); ALBUMIN/GLOBULIN RATIO 0.8 (1.0-2.7); ALKALINE PHOSPHATASE 113 U/L (46-116); ANION GAP 19 mmol/L (5-15); ASPARTATE AMINO TRANSFERASE 28 U/L (15-37); BILIRUBIN,TOTAL 0.4 MG/DL (0.2-1.0); BLOOD UREA NITROGEN 92 mg/dL (7-18); CALCIUM 9.4 MG/DL (8.5-10.1); CARBON DIOXIDE 25 MMOL/L (21-32); CHLORIDE 107 MMOL/L (98-107); CREATININE 5.1 MG/DL (0.55-1.30); HEMATOCRIT 26.9 % (37.0-47.0); HEMOGLOBIN 8.9 G/DL (12.0-16.0); MEAN CORPUSCULAR VOLUME 92 FL (80-99); PHOSPHORUS 4.5 MG/DL (2.5-4.9); PLATELET COUNT 358 K/UL (150-450); POTASSIUM 3.5 MMOL/L (3.5-5.1); RED BLOOD COUNT 2.93 M/UL (4.20-5.40); RED CELL DISTRIBUTION WIDTH 13.9 % (11.6-14.8); SODIUM 151 MMOL/L (136-145); WHITE BLOOD COUNT 18.7 K/UL (4.8-10.8)
--- NOTE | 2019-07-22 06:12 | NUR ---
NURSE NOTES: RESTED WELL, NO SIGNIFICANT CHANGE OF CONDITION NOTED THROUGHOUT THE NIGHT. SAFETY MAINTAINED. NAD.
--- NOTE | 2019-07-22 07:09 | NUR ---
HAND-OFF: Report given to HYUN ROMERO.
--- NOTE | 2019-07-22 07:15 | NUR ---
NURSE NOTES: Received report from Shannon/PITO, Patient is asleep, Lying semi-mei's in bed, resting comfortably. On 2L nasal canula, No acute distress/SOB noted. Breathing unlabored and even. IV on left Hand, intact, no bleeding or infiltration noted. Bed in low position and locked, On air mattress, Bed alarm engaged, Side rails up x3. Call light within reach. Encouraged to use call light when needed. Will continue plan of care.
[2019-07-22 08:00] VITALS: BP 132/53
--- NOTE | 2019-07-22 08:27 | Urology Progress Note ---
Assessment/Plan Status: stable Assessment/Plan: 1. Hematuria, which was previously gross and now microscopic. 2. End-stage renal disease, on hemodialysis. 3. Urinary retention history, now with incontinence. 4. Probable neurogenic bladder. 5. Pyuria. 6. Proteinuria. 7. History of acute kidney injury. 9. Nephrolithiasis. 8. Sepsis? monitor clinically abx as ordered, per ID I+O cath PRN cysto later HD per clinical pharmacy manager Subjective Allergies: Coded Allergies: No Known Allergies (Unverified , 06/24/19) Subjective all noted, urinary incontinence, urine reported grossly non-bloody Objective Last 24 Hour Vital Signs Date Time Temp Pulse Resp B/P (MAP) Pulse Ox O2 Delivery O2 Flow Rate FiO2 07/22/19 08:00 100.9 105 20 132/53 (79) 98 07/22/19 04:00 97.9 81 18 122/69 (86) 95 07/22/19 04:00 105 07/22/19 00:00 103 07/22/19 00:00 98.0 90 20 124/66 (85) 96 07/21/19 21:19 109 125/77 07/21/19 21:00 Nasal Cannula 2.0 Nasal Cannula 2.0 07/21/19 20:00 99.7 107 20 132/65 (87) 100 07/21/19 16:00 126 07/21/19 16:00 99.1 125 19 125/73 (90) 95 07/21/19 12:13 96.8 120 19 133/69 (90) 95 07/21/19 12:00 99 07/21/19 09:31 94 152/79 07/21/19 09:00 Nasal Cannula 2.0 Nasal Cannula 2.0 Intake and Output 07/21/19 07/22/19 19:00 07:00 Intake Total 35 ml 685 ml Balance 35 ml 685 ml Intake Free Water 300 ml Tube Feeding 35 ml 385 ml # Voids 1 Microbiology Date/Time Source Procedure Growth Status 07/19/19 13:15 Blood Blood Culture - Final Pseudomonas Aeruginosa Complete 07/20/19 04:30 Sputum Induced Gram Stain - Final Resulted 07/20/19 04:30 Sputum Culture - Preliminary Gram Negative Jef Melanie Albicans Resulted 07/17/19 07:00 Stool Clostridium difficile Toxin Assay - Final Complete 07/20/19 13:18 Catheter Site Catheter Tip Culture - Preliminary NO GROWTH AFTER 24 HOURS Resulted Current Medications Medications (Trade) Dose Ordered Sig/Joan Route PRN Reason Start Time Stop Time Status Last Admin Dose Admin Acetaminophen (Tylenol) 650 mg Q4H PRN ORAL Mild Pain (Pain Scale 1-3) 07/14/19 14:45 08/13/19 14:44 07/20/19 17:04 Amikacin Protocol (Amikacin pharmacy to dose) 1 ea DAILY PRN MISC . 07/20/19 09:45 08/19/19 09:44 Atorvastatin Calcium (Lipitor) 10 mg QHS GT 07/14/19 21:00 10/12/19 20:59 07/21/19 21:18 Carvedilol (Coreg) 3.125 mg EVERY 12 HOURS ORAL 07/19/19 09:00 08/18/19 08:59 07/21/19 21:19 Chlorhexidine Gluconate (Cari-Hex 2%) 1 applic DAILY@1999 TOPIC 07/15/19 20:00 10/13/19 19:59 07/19/19 20:15 Dextrose (Dextrose 50%) 25 ml Q30M PRN IV Hypoglycemia 07/14/19 14:45 10/12/19 14:44 Dextrose (Dextrose 50%) 50 ml Q30M PRN IV Hypoglycemia 07/14/19 14:45 10/12/19 14:44 Epoetin Dion (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)) 4,000 unit MON-MON-MON SUBQ 07/17/19 21:00 10/15/19 20:59 07/19/19 20:42 Heparin Sodium (Porcine) (Heparin 5000 units/ml) 5,000 units EVERY 12 HOURS SUBQ 07/14/19 21:00 08/28/19 20:59 07/21/19 21:20 Hydralazine HCl (Apresoline) 10 mg Q4H PRN IV For High Blood Pressure 07/14/19 15:30 10/12/19 15:29 Lactobacillus Acidophilus (Culturelle) 1 tab Q12HR GT 07/15/19 12:14 10/13/19 12:13 07/21/19 21:18 Loperamide HCl (Imodium) 2 mg Q6H PRN NG Diarrhea 07/18/19 09:00 08/17/19 08:59 07/18/19 10:37 Meropenem 500 mg/ Sodium Chloride 50 ml @ 100 mls/hr Q24H IVPB 07/21/19 18:00 07/26/19 17:59 07/21/19 18:10 Ondansetron HCl (Zofran) 4 mg Q6H PRN IVP Nausea & Vomiting 07/14/19 14:45 08/13/19 14:44 Vancomycin HCl (Vanco rx to dose) 1 ea DAILY PRN MISC Per rx protocol 07/14/19 14:45 08/13/19 14:44 Laboratory Tests 07/22/19 03:15: White Blood Count 18.7H, Red Blood Count 2.93L, Hemoglobin 8.9L, Hematocrit 26.9L, Mean Corpuscular Volume 92, Mean Corpuscular Hemoglobin 30.6, Mean Corpuscular Hemoglobin Concent 33.2, Red Cell Distribution Width 13.9, Platelet Count 358, Mean Platelet Volume 7.4, Neutrophils (%) (Auto) , Lymphocytes (%) ( Auto) , Monocytes (%) (Auto) , Eosinophils (%) (Auto) , Basophils (%) (Auto) , Neutrophils % (Manual) [Pending], Lymphocytes % (Manual) [Pending], Platelet Estimate [Pending], Platelet Morphology [Pending], Sodium Level 151H, Potassium Level 3.5, Chloride Level 107, Carbon Dioxide Level 25, Anion Gap 19H, Blood Urea Nitrogen 92H, Creatinine 5.1H, Estimat Glomerular Filtration Rate 9.6, Glucose Level 174H, Calcium Level 9.4, Phosphorus Level 4.5, Total Bilirubin 0.4 , Aspartate Amino Transf (AST/SGOT) 28, Alanine Aminotransferase (ALT/SGPT) 37, Alkaline Phosphatase 113, Total Protein 7.2, Albumin 3.3L, Globulin 3.9, Albumin /Globulin Ratio 0.8L, Random Amikacin Level [Pending] Height (Feet): 5 Height (Inches): 3.00 Weight (Pounds): [address] A/P (07/18) noted Omar Mckoy MD Jul 22, 2019 08:27
[2019-07-22] MEDS: Lactobacillus-GG tablet GT SCH ×2 (08:45→21:00)
[2019-07-22] MEDS: Heparin 5000 units/ml inj SUBQ SCH ×2 (08:49→21:00)
--- NOTE | 2019-07-22 09:54 | General Progress Note ---
Assessment/Plan Status: stable Assessment/Plan: 89-year-old female with PMH of acute renal failure, s/p right chest wall permacath on HD, dysphasia s/p PEG, multiple pressure wounds, HTN, h/o AMS was recently discharged from this facility for KAREN/rhabdo, unwitnessed fall, was sent to [facility] and returned here due to fevers. Patient was admitted for persistent fevers and for sepsis/COVID 19 rule out. ED course: BMP 8000, troponin 0 0.347, patient given for septic work-up and will be admitted for further treatment. #Sepsis #Gram negative bacteremia #infected Permacath #Diarrhea #leukocytosis #ESRD on HD -continue inpatient level of care -CXR w/mild interstitial edema -COVID-19 NEGATIVE, Droplet precautions d/c -c diff negative -Imodium prn -CT abd/pelvis results reviewed -Permacath removed 07/19 -Given persistent fevers will hold off on HD line placement -ID following: cont. amikacin, Zosyn, IV vanco -Nephro following: Will likely place [facility] tomorrow and plan for PermCath later this week #Anemia of chronic dx -check iron panel, ferritin-> ferritin supersaturated -epogen 4K TIW #Hypokalemia - resolved -replaced, ctm, replace PRN #HTN #elevated troponin #BNP elevated #Sinus tachycardia - resolved -trops stable 0.254, 0.240, 0.248 -likely due to demand ischemia and ESRD -ASA, statin -cont. lasix 80 IV daily, will change to PO on d/c -hydralazine PRN for SBP >160 -cont Carvedilol 3.25 mg BID -Cardio following, reccs appreciated #Hematuria #Possible Urinary retention. #Possible neurogenic bladder. -UA w/ evidence of RBCs, 4+ blood -Urology recs appreciated #Dysphagia -s/p PEG -cont tube feeds with reduced rate once no longer NPO -Dietary and GI following, recs appreciated #Pressure wounds -Wound care consulted, recs appreciated DVT ppx - heparin sc Time spent on encounter: 35 mins, >50% on counseling, coordination of care. Additional 30 mins spent on chart review. Subjective ROS Limited/Unobtainable: Yes - non-verbal Allergies: Coded Allergies: No Known Allergies (Unverified , 06/24/19) Subjective F/u for sepsis, HCAP, fevers. COVID NEGATIVE. WBC remains elevated. Pt non-verbal at this time, unable to obtain ROS otherwise appears comfortable. Objective Last 24 Hour Vital Signs Date Time Temp Pulse Resp B/P (MAP) Pulse Ox O2 Delivery O2 Flow Rate FiO2 07/22/19 08:44 105 132/53 07/22/19 08:00 100.9 105 20 132/53 (79) 98 07/22/19 04:00 97.9 81 18 122/69 (86) 95 07/22/19 04:00 105 07/22/19 00:00 103 07/22/19 00:00 98.0 90 20 124/66 (85) 96 07/21/19 21:19 109 125/77 07/21/19 21:00 Nasal Cannula 2.0 Nasal Cannula 2.0 07/21/19 20:00 99.7 107 20 132/65 (87) 100 07/21/19 16:00 126 07/21/19 16:00 99.1 125 19 125/73 (90) 95 07/21/19 12:13 96.8 120 19 133/69 (90) 95 07/21/19 12:00 99 Intake and Output 07/21/19 07/22/19 19:00 07:00 Intake Total 35 ml 685 ml Balance 35 ml 685 ml Intake Free Water 300 ml Tube Feeding 35 ml 385 ml # Voids 1 Laboratory Tests 07/22/19 03:15: White Blood Count 18.7H, Red Blood Count 2.93L, Hemoglobin 8.9L, Hematocrit 26.9L, Mean Corpuscular Volume 92, Mean Corpuscular Hemoglobin 30.6, Mean Corpuscular Hemoglobin Concent 33.2, Red Cell Distribution Width 13.9, Platelet Count 358, Mean Platelet Volume 7.4, Neutrophils (%) (Auto) , Lymphocytes (%) ( Auto) , Monocytes (%) (Auto) , Eosinophils (%) (Auto) , Basophils (%) (Auto) , Differential Total Cells Counted 100, Neutrophils % (Manual) 79H, Lymphocytes % (Manual) 9L, Monocytes % (Manual) 11H, Eosinophils % (Manual) 1, Basophils % ( Manual) 0, Band Neutrophils 0, Platelet Estimate Adequate, Platelet Morphology Normal, Hypochromasia 1+, Sodium Level 151H, Potassium Level 3.5, Chloride Level 107, Carbon Dioxide Level 25, Anion Gap 19H, Blood Urea Nitrogen 92H, Creatinine 5.1H, Estimat Glomerular Filtration Rate 9.6, Glucose Level 174H, Calcium Level 9.4, Phosphorus Level 4.5, Total Bilirubin 0.4, Aspartate Amino Transf (AST/SGOT) 28, Alanine Aminotransferase (ALT/SGPT) 37, Alkaline Phosphatase 113, Total Protein 7.2, Albumin 3.3L, Globulin 3.9, Albumin/ Globulin Ratio 0.8L, Random Amikacin Level [Pending] Height (Feet): 5 Height (Inches): 3.00 Weight (Pounds): 129 Objective General Appearance: alert, awake, in NAD, AOx1 at b/l Neck: supple Cardiovascular: normal rate, regular rhythm Respiratory/Chest: lungs clear, normal breath sounds Abdomen: non tender, soft, +PEG c/d/i Ext: contracted b/l, no edema Lisa Brewster M.D. Jul 22, 2019 09:54
--- NOTE | 2019-07-22 10:52 | Nephrology Progress Note ---
Assessment/Plan Plan #Acute renal failure recent started on HD in 06/2018- #Sepsis #Dementia #HTN #elevated troponin #Dysphagia s/p PEG #urinary retention - permacath removed 07/19 - given persistent fevers hold off on HD line placement today - will likely place omari tomorrow ad plan for permcath later this week - D5W 250cc today - monitor BMP closley - continue lasix 80 IV daily -> switch to oral on DC - cardiology eval - monitor UOP - urology eval - continue antibiotics per ID - coreg 3.125mg BID - follow repeat blood cx- growing pseudomonas - check iron panel, ferritin-> ferritin supersaturated - continue epogen 4K TIW - monitor BMP, mag and phos daily for now Subjective Subjective blood cx growing pseudomonas Febrile overnight permcath removed 07/19 BP stable breathing stable on NC persistent leukoocytosis noted sodium elevated Objective Objective Last 24 Hour Vital Signs Date Time Temp Pulse Resp B/P (MAP) Pulse Ox O2 Delivery O2 Flow Rate FiO2 07/22/19 09:15 99.5 07/22/19 09:00 Nasal Cannula 2.0 Nasal Cannula 2.0 07/22/19 08:44 105 132/53 07/22/19 08:00 100.9 105 20 132/53 (79) 98 07/22/19 08:00 103 07/22/19 04:00 97.9 81 18 122/69 (86) 95 07/22/19 04:00 105 07/22/19 00:00 103 07/22/19 00:00 98.0 90 20 124/66 (85) 96 07/21/19 21:19 109 125/77 07/21/19 21:00 Nasal Cannula 2.0 Nasal Cannula 2.0 07/21/19 20:00 99.7 107 20 132/65 (87) 100 07/21/19 16:00 126 07/21/19 16:00 99.1 125 19 125/73 (90) 95 07/21/19 12:13 96.8 120 19 133/69 (90) 95 07/21/19 12:00 99 Intake and Output 07/21/19 07/22/19 19:00 07:00 Intake Total 35 ml 685 ml Balance 35 ml 685 ml Intake Free Water 300 ml Tube Feeding 35 ml 385 ml # Voids 1 Laboratory Tests 07/22/19 03:15: White Blood Count 18.7H, Red Blood Count 2.93L, Hemoglobin 8.9L, Hematocrit 26.9L, Mean Corpuscular Volume 92, Mean Corpuscular Hemoglobin 30.6, Mean Corpuscular Hemoglobin Concent 33.2, Red Cell Distribution Width 13.9, Platelet Count 358, Mean Platelet Volume 7.4, Neutrophils (%) (Auto) , Lymphocytes (%) ( Auto) , Monocytes (%) (Auto) , Eosinophils (%) (Auto) , Basophils (%) (Auto) , Differential Total Cells Counted 100, Neutrophils % (Manual) 79H, Lymphocytes % (Manual) 9L, Monocytes % (Manual) 11H, Eosinophils % (Manual) 1, Basophils % ( Manual) 0, Band Neutrophils 0, Platelet Estimate Adequate, Platelet Morphology Normal, Hypochromasia 1+, Sodium Level 151H, Potassium Level 3.5, Chloride Level 107, Carbon Dioxide Level 25, Anion Gap 19H, Blood Urea Nitrogen 92H, Creatinine 5.1H, Estimat Glomerular Filtration Rate 9.6, Glucose Level 174H, Calcium Level 9.4, Phosphorus Level 4.5, Total Bilirubin 0.4, Aspartate Amino Transf (AST/SGOT) 28, Alanine Aminotransferase (ALT/SGPT) 37, Alkaline Phosphatase 113, Total Protein 7.2, Albumin 3.3L, Globulin 3.9, Albumin/ Globulin Ratio 0.8L, Random Amikacin Level [Pending] Height (Feet): 5 Height (Inches): 3.00 Weight (Pounds): 129 Objective General: NAD, A&O x 1, self only HEENT: NCAT, EOMi, PEERLA, nares patent and no symmetrical, no tonsillar exudates, mucous membranes moist CV: RRR, no murmurs, rubs, or gallops Pulm: CTAB, No wheezes, rhonchi, or rales, no accessory muscle usage or conversational dyspnea GI: Soft, nontender, nondistended, bowel sounds present, PEG tube in place, C/D/ I Neuro: CN 2-12 grossly intact bilaterally, no focal signs. Ext: No lower extremity edema bilaterally, LE contracted bilaterally Skin: Multiple pressure ulcers noted on hip/heels Lymph: No lymphadenopathy in upper extremity and lower extremity Rory Oconnor M.D. Jul 22, 2019:52
[2019-07-22] MEDS: D5W 250 ML IVPB ONE ×2 (11:00→12:53)
--- NOTE | 2019-07-22 11:02 | General Progress Note ---
Assessment/Plan Status: stable Assessment/Plan: 1. End-stage renal disease, on hemodialysis. 2. Anemia. 3. Dysphagia, status post G-tube placement. 4. Pneumonia. 5. Pancreatic cyst. 6. Hypertension. 7. Diarrhea 8. Leukocytosis C.diff>> neg imodium prn GTF abx per ID HD per nephrology repeal labs in am urology in put appreciated Subjective ROS Limited/Unobtainable: No Allergies: Coded Allergies: No Known Allergies (Unverified , 06/24/19) Objective Last 24 Hour Vital Signs Date Time Temp Pulse Resp B/P (MAP) Pulse Ox O2 Delivery O2 Flow Rate FiO2 07/22/19 09:15 99.5 07/22/19 09:00 Nasal Cannula 2.0 Nasal Cannula 2.0 07/22/19 08:44 105 132/53 07/22/19 08:00 100.9 105 20 132/53 (79) 98 07/22/19 08:00 103 07/22/19 04:00 97.9 81 18 122/69 (86) 95 07/22/19 04:00 105 07/22/19 00:00 103 07/22/19 00:00 98.0 90 20 124/66 (85) 96 07/21/19 21:19 109 125/77 07/21/19 21:00 Nasal Cannula 2.0 Nasal Cannula 2.0 07/21/19 20:00 99.7 107 20 132/65 (87) 100 07/21/19 16:00 126 07/21/19 16:00 99.1 125 19 125/73 (90) 95 07/21/19 12:13 96.8 120 19 133/69 (90) 95 07/21/19 12:00 99 Intake and Output 07/21/19 07/22/19 19:00 07:00 Intake Total 35 ml 685 ml Balance 35 ml 685 ml Intake Free Water 300 ml Tube Feeding 35 ml 385 ml # Voids 1 Laboratory Tests 07/22/19 03:15: White Blood Count 18.7H, Red Blood Count 2.93L, Hemoglobin 8.9L, Hematocrit 26.9L, Mean Corpuscular Volume 92, Mean Corpuscular Hemoglobin 30.6, Mean Corpuscular Hemoglobin Concent 33.2, Red Cell Distribution Width 13.9, Platelet Count 358, Mean Platelet Volume 7.4, Neutrophils (%) (Auto) , Lymphocytes (%) ( Auto) , Monocytes (%) (Auto) , Eosinophils (%) (Auto) , Basophils (%) (Auto) , Differential Total Cells Counted 100, Neutrophils % (Manual) 79H, Lymphocytes % (Manual) 9L, Monocytes % (Manual) 11H, Eosinophils % (Manual) 1, Basophils % ( Manual) 0, Band Neutrophils 0, Platelet Estimate Adequate, Platelet Morphology Normal, Hypochromasia 1+, Sodium Level 151H, Potassium Level 3.5, Chloride Level 107, Carbon Dioxide Level 25, Anion Gap 19H, Blood Urea Nitrogen 92H, Creatinine 5.1H, Estimat Glomerular Filtration Rate 9.6, Glucose Level 174H, Calcium Level 9.4, Phosphorus Level 4.5, Total Bilirubin 0.4, Aspartate Amino Transf (AST/SGOT) 28, Alanine Aminotransferase (ALT/SGPT) 37, Alkaline Phosphatase 113, Total Protein 7.2, Albumin 3.3L, Globulin 3.9, Albumin/ Globulin Ratio 0.8L, Random Amikacin Level [Pending] Height (Feet): 5 Height (Inches): 3.00 Weight (Pounds): 129 General Appearance: no apparent distress EENT: normal ENT inspection Neck: supple Cardiovascular: normal rate Respiratory/Chest: decreased breath sounds Abdomen: normal bowel sounds, non tender, soft Extremities: non-tender Jun Mena MD Jul 22, 2019 11:02
--- NOTE | 2019-07-22 11:38 | NUR ---
CASE MANAGEMENT:REVIEW 07/22/19 SI: SEPSIS D/T BACTEREMIA INFECTED PERMCATH 100.9 105 20 132/53 98% ON 2L/NC WBC+18.7 H/H-8.9/26.9 NA+151 BUN+92 CR+5.1 IS: IV MEROPENEM Q24 250CC NS BOLUS X1 COREG GT Q12 EPOETIN SQ MWF LACTOBACILLUS GT Q12 : NOW ON TELEMETRY DCP: FROM [facility] PLAN: HOLD OFF ON DIALYSIS UNTIL NEW LINE PLACEMENT
[2019-07-22 12:00] VITALS: BP 99/50
[2019-07-22] MEDS ORDERED: D5W 250 ML IVPB ONE (13:00)
--- NOTE | 2019-07-22 13:22 | Diagnostic Imaging Report ---
Indication: Dyspnea Comparison: 07/19/2019 A single view chest radiograph was obtained. Findings: No definite infiltrate or pulmonary vascular congestion identified. Right permacath was removed. The heart is enlarged. The aorta is mildly enlarged consistent with atherosclerotic vascular disease. The bones are osteopenic. There are thoracic vertebral enthesophytes at multiple levels. Impression: No acute disease
--- NOTE | 2019-07-22 14:19 | Surgery Progress Note ---
Surgery Progress Note Subjective Procedure Performed removal of tunneled right chest wall catheter HD Additional Comments no acute events labs ntoed exam stable site clean/ dry Objective Last 24 Hour Vital Signs Date Time Temp Pulse Resp B/P (MAP) Pulse Ox O2 Delivery O2 Flow Rate FiO2 07/22/19 12:00 93 07/22/19 12:00 98.4 96 18 99/50 (66) 99 07/22/19 09:15 99.5 07/22/19 09:00 Nasal Cannula 2.0 Nasal Cannula 2.0 07/22/19 08:44 105 132/53 07/22/19 08:00 100.9 105 20 132/53 (79) 98 07/22/19 08:00 103 07/22/19 04:00 97.9 81 18 122/69 (86) 95 07/22/19 04:00 105 07/22/19 00:00 103 07/22/19 00:00 98.0 90 20 124/66 (85) 96 07/21/19 21:19 109 125/77 07/21/19 21:00 Nasal Cannula 2.0 Nasal Cannula 2.0 07/21/19 20:00 99.7 107 20 132/65 (87) 100 07/21/19 16:00 126 07/21/19 16:00 99.1 125 19 125/73 (90) 95 I&O Intake and Output 07/21/19 07/22/19 19:00 07:00 Intake Total 35 ml 685 ml Balance 35 ml 685 ml Intake Free Water 300 ml Tube Feeding 35 ml 385 ml # Voids 1 Dressing: dry Wound: clean Cardiovascular: RSR Respiratory: clear Abdomen: flat, non-tender, present bowel sounds Extremities: no edema, no tenderness Laboratory Tests Test 07/22/19 03:15 White Blood Count 18.7 K/UL (4.8-10.8) H Red Blood Count 2.93 M/UL (4.20-5.40) L Hemoglobin 8.9 G/DL (12.0-16.0) L Hematocrit 26.9 % (37.0-47.0) L Mean Corpuscular Volume 92 FL (80-99) Mean Corpuscular Hemoglobin 30.6 PG (27.0-31.0) Mean Corpuscular Hemoglobin Concent 33.2 G/DL (32.0-36.0) Red Cell Distribution Width 13.9 % (11.6-14.8) Platelet Count 358 K/UL (150-450) Mean Platelet Volume 7.4 FL (6.5-10.1) Neutrophils (%) (Auto) % (45.0-75.0) Lymphocytes (%) (Auto) % (20.0-45.0) Monocytes (%) (Auto) % (1.0-10.0) Eosinophils (%) (Auto) % (0.0-3.0) Basophils (%) (Auto) % (0.0-2.0) Differential Total Cells Counted 100 Neutrophils % (Manual) 79 % (45-75) H Lymphocytes % (Manual) 9 % (20-45) L Monocytes % (Manual) 11 % (1-10) H Eosinophils % (Manual) 1 % (0-3) Basophils % (Manual) 0 % (0-2) Band Neutrophils 0 % (0-8) Platelet Estimate Adequate Platelet Morphology Normal Hypochromasia 1+ Sodium Level 151 MMOL/L (136-145) H Potassium Level 3.5 MMOL/L (3.5-5.1) Chloride Level 107 MMOL/L (98-107) Carbon Dioxide Level 25 MMOL/L (21-32) Anion Gap 19 mmol/L (5-15) H Blood Urea Nitrogen 92 mg/dL (7-18) H Creatinine 5.1 MG/DL (0.55-1.30) H Estimat Glomerular Filtration Rate 9.6 mL/min (>60) Glucose Level 174 MG/DL (74-106) H Calcium Level 9.4 MG/DL (8.5-10.1) Phosphorus Level 4.5 MG/DL (2.5-4.9) Total Bilirubin 0.4 MG/DL (0.2-1.0) Aspartate Amino Transf (AST/SGOT) 28 U/L (15-37) Alanine Aminotransferase (ALT/SGPT) 37 U/L (12-78) Alkaline Phosphatase 113 U/L (46-116) Total Protein 7.2 G/DL (6.4-8.2) Albumin 3.3 G/DL (3.4-5.0) L Globulin 3.9 g/dL Albumin/Globulin Ratio 0.8 (1.0-2.7) L Random Amikacin Level Pending Plan Problems: (1) Decubitus skin ulcer Assessment & Plan: Pt presented on admission with multiple pressure injuries. Unstageable pressure injury R shoulder(L)3.8cm x (W)3.3cm. Base of wound is 100 % necrotic and dry. Marginal erythema along borders. No erythema or induration periwound. Reabsorbed DTPI R Humerus. Base of injury has dry peeling brown skin with underlying dry pink epithelial. R elbow pressure injury has resolved. Full thickness pressure injury R hip (L)7cm x (W)13.1cm. Base of wound is 70% fibrinous slough,10% necrotic ,20% moist pink granulation. Edges are macerated.Small amt seropurulent non-odorous exudate noted. NO erythema , induration or elevation in skin temp periwound. Opened DTPI Sacrum(L)9cm x (W)15cm. Base of wound is purple,indurated with an open wound at sacrococcygeal which has 100% slough(L)1.6cm x (W)1cm. Surrounding Skin hypopigmentation with areas of excoriation extending into perineum and perianal area. Unstageable pressure injury lateral R malleolus(L)2.5cm x (W)3cm. Base of wound is 100% dry necrosis. Edges adherent to base of wound. No erythema induration or fluctuance periwound. Reabsorbing DTPI R heel. Base of Heel is boggy,non-blanching erythema with dry peeling brown skin along edges.(L)4.2cm x (W)6cm. Resolving DTPI distal/lateral R foot. Stable dry brown eschar without fluctuance or induration(L)1cm x (W)1.5cm. Resolving DTPI Lateral R 5th metatarsal.Base of injury is dry,brown without fluctuance or induration.(L)0.6cm x (W)1cm Unstageable pressure injury L Hallux(L)4cm x (W)2.7cm. Base of wound is 80% necrotic,20% slough with marginal erythema along borders. No odor or exudate noted. DTPI L Heel. Base of injury maroon and fluctuant. Periwound is boggy but blanchable(L)5.5cm x (W)6.5cm. Tx.Plan: Cleanse R shoulder with Saline. Apply Therahoney. Apply Cavilon Periwound. Cover with Optifoam drsg. Change every 3 days and prn. Cleanse R hip with Saline. Apply Therahoney.Apply Moisture Barrier Periwound. Cover with Optifoam drsg. Change Daily and prn. Cleanse Sacrum with Saline. Apply Therahoney. Apply Moisture Barrier Paste periwound. Cover with Optifoam drsg. Change every 3 days and prn. Apply Moisture Barrier Paste to perineum and perianal areas with each incontinence care. Apply Betadine to R heel,Distal/lateral R foot ,R5th metatarsal. Cover with Optifoam drsg. Change every 3 days and prn. Apply Betadine to L hallux,and L heel. Cover each site with Optifoam drsg. Change every 3 days and prn. Reposition at least every 2hours or as tolerated. Place pillow between knees. off-load heels with pillow. (2) Fever Assessment & Plan: covid negative discussed with pcp and nephro may need to remove catheter as possible etiology covid negative c diff negative blood cultures from line. if positive will remove after next HD then line holiday blood cx with gram neg d/c line Line removed see note Line holiday Antibiotics as per infectious disease (3) Protein calorie malnutrition Assessment & Plan: DAILY ESTIMATED NEEDS: Needs based on Wounds, HD 51.8kg 30-35 kcals/kg 1182-0618 total kcals 1.25-1.8 g protein/kg 65-93 g total protein Fluids per MD mL/kg . total fluid mLs NUTRITION DIAGNOSIS: * Increased kcal and prot needs r/t wound healing and renal failure as evidenced by w/ multiple pressure injuries, pending re-evaluation, s/p recent PermCath placement, HD dependent. * Swallowing difficulty R/T dysphagia as evidenced by s/p recent PEG placement, on GT feeding. CURRENT TF:Jevity 1.2 @ 50ml/hr x 24 hrs ENTERAL NUTRITION RECOMMENDATIONS: Nepro @ 38ml/hr x 24 hrs to provide 912ml, 1642kcal, 74g prot, 663ml free water - Rec TF change to Nepro- HD dependent - Initiate Nepro @ 28ml/hr x 6 hrs, increase to goal as tolerated. - HOB over 30 degrees/ water flush per MD ADDITIONAL RECOMMENDATIONS: 1) Calibrated bedscale wt 2) Wound Care: add Nephrovite x 1 add Saw 1ptk BID when TF well tolerated @ goal 3) Check phos and mag levels 4) Monitor BGs, need for nISS 5) Add probiotics: h/o LBM prev adm, prolonged use of abx (4) Pressure ulcer Anshul Nava Jul 22, 2019 14:19
[2019-07-22 16:00] VITALS: BP 116/57
--- NOTE | 2019-07-22 19:58 | NUR ---
HAND-OFF: Report given to Ruchi/RN, Patient is in stable condition. Endorsed plan of care.
[2019-07-22 20:00] VITALS: BP 111/70
[2019-07-22] MEDS: Dyna-Hex 2% Top Sol 2oz TOPIC SCH (20:00)
--- NOTE | 2019-07-22 21:47 | Neurology Progress Note ---
Interim History Interim History ROS Limited/Unobtainable: Yes - non-verbal Interim History still with fevers and high wbc Objective Physical Exam Last Vital Signs Date Time Temp Pulse Resp B/P (MAP) Pulse Ox O2 Delivery O2 Flow Rate FiO2 07/22/19 16:00 98.1 105 20 116/57 (76) 97 07/22/19 09:00 Nasal Cannula 2.0 Nasal Cannula 2.0 Laboratory Tests Test 07/22/19 03:15 White Blood Count 18.7 K/UL (4.8-10.8) H Red Blood Count 2.93 M/UL (4.20-5.40) L Hemoglobin 8.9 G/DL (12.0-16.0) L Hematocrit 26.9 % (37.0-47.0) L Mean Corpuscular Volume 92 FL (80-99) Mean Corpuscular Hemoglobin 30.6 PG (27.0-31.0) Mean Corpuscular Hemoglobin Concent 33.2 G/DL (32.0-36.0) Red Cell Distribution Width 13.9 % (11.6-14.8) Platelet Count 358 K/UL (150-450) Mean Platelet Volume 7.4 FL (6.5-10.1) Neutrophils (%) (Auto) % (45.0-75.0) Lymphocytes (%) (Auto) % (20.0-45.0) Monocytes (%) (Auto) % (1.0-10.0) Eosinophils (%) (Auto) % (0.0-3.0) Basophils (%) (Auto) % (0.0-2.0) Differential Total Cells Counted 100 Neutrophils % (Manual) 79 % (45-75) H Lymphocytes % (Manual) 9 % (20-45) L Monocytes % (Manual) 11 % (1-10) H Eosinophils % (Manual) 1 % (0-3) Basophils % (Manual) 0 % (0-2) Band Neutrophils 0 % (0-8) Platelet Estimate Adequate Platelet Morphology Normal Hypochromasia 1+ Sodium Level 151 MMOL/L (136-145) H Potassium Level 3.5 MMOL/L (3.5-5.1) Chloride Level 107 MMOL/L (98-107) Carbon Dioxide Level 25 MMOL/L (21-32) Anion Gap 19 mmol/L (5-15) H Blood Urea Nitrogen 92 mg/dL (7-18) H Creatinine 5.1 MG/DL (0.55-1.30) H Estimat Glomerular Filtration Rate 9.6 mL/min (>60) Glucose Level 174 MG/DL (74-106) H Calcium Level 9.4 MG/DL (8.5-10.1) Phosphorus Level 4.5 MG/DL (2.5-4.9) Total Bilirubin 0.4 MG/DL (0.2-1.0) Aspartate Amino Transf (AST/SGOT) 28 U/L (15-37) Alanine Aminotransferase (ALT/SGPT) 37 U/L (12-78) Alkaline Phosphatase 113 U/L (46-116) Total Protein 7.2 G/DL (6.4-8.2) Albumin 3.3 G/DL (3.4-5.0) L Globulin 3.9 g/dL Albumin/Globulin Ratio 0.8 (1.0-2.7) L Random Amikacin Level Pending Head: normocophalic Neck: no rigidity EENT: benign Neurologic Exam Mental Status: awake Cranial Nerves III, IV, : PERRLA Objective Wakes up, tracks with eyes, tell me her name, withdraws all 4 Impression/Recommendations Problems: (1) Decubitus skin ulcer (2) Fever (3) Rhabdomyolysis (4) Elevated troponin (5) KAREN (acute kidney injury) (6) Fever (7) Elevated brain natriuretic peptide (BNP) level (8) ESRD (end stage renal disease) on dialysis (9) ESRD (end stage renal disease) on dialysis (10) Pressure ulcer (11) Protein calorie malnutrition (12) Dysphagia Status: stable Diagnostic Impression Acute encephalopathy, improved baseline dementia Sepsis Monitor neuro exam for improvement cont atb neg covid Delirium precautions Sushil Stevenson MD Jul 22, 2019 21:47
[2019-07-23] VITALS: BP 128/58
--- NOTE | 2019-07-23 00:49 | NUR ---
PATIENT WAS ENDORSED TO ME AT 0030 BY ALLAN HORTON RN. PATIENT GT FEEDING RUNNING AT 38CC/HR. I REPOSITIONED THE PATIENT AT THIS TIME WITH THE NURSE DIRECTOR CARD STAFF. PATIENT HAS NO ACUTE DISTRESS, RESTING COMFORTABLY IN BED. PATIENT WITH RECTAL TUBE IN PLACE.
[2019-07-23 04:00] VITALS: BP 111/57
[2019-07-23 07:15] LABS: ANION GAP 20 mmol/L (5-15); BLOOD UREA NITROGEN 119 mg/dL (7-18); CALCIUM 9.4 MG/DL (8.5-10.1); CARBON DIOXIDE 25 MMOL/L (21-32); CHLORIDE 106 MMOL/L (98-107); CREATININE 6.1 MG/DL (0.55-1.30); POTASSIUM 3.6 MMOL/L (3.5-5.1); SODIUM 151 MMOL/L (136-145)
--- NOTE | 2019-07-23 07:20 | NUR ---
NURSE NOTES: Received patient from Kelly PURVIS in bed resting. Patient is AAO X1, denies any pain at this time. Noted patient has many wounds all over the body, dressing is intact, repositioned patient. No s/s of acute distress or respiratory distress. Patient is on NC 2l, on G-Tube Nephro running at 38cc/hr. Noted patient has rectal tube with liquefied BM. Bed is in lowest position with bedside rails up x3, brakes engaged for safety and call light within reach. Will continue with the plan of care.
[2019-07-23 08:00] VITALS: BP 125/59
[2019-07-23] MEDS: Lactobacillus-GG tablet GT SCH ×2 (09:08→21:21)
[2019-07-23 09:09] LABS: BASOPHILS % (AUTO) 0.5 % (0.0-2.0); EOSINOPHILS % (AUTO) 0.8 % (0.0-3.0); HEMATOCRIT 27.4 % (37.0-47.0); HEMOGLOBIN 8.8 G/DL (12.0-16.0); LYMPHOCYTES % (AUTO) 11.4 % (20.0-45.0); MEAN CORPUSCULAR VOLUME 93 FL (80-99); MONOCYTES % (AUTO) 7.1 % (1.0-10.0); NEUTROPHILS % (AUTO) 80.2 % (45.0-75.0); PLATELET COUNT 384 K/UL (150-450); RED BLOOD COUNT 2.95 M/UL (4.20-5.40); RED CELL DISTRIBUTION WIDTH 14.1 % (11.6-14.8); WHITE BLOOD COUNT 16.2 K/UL (4.8-10.8)
[2019-07-23] MEDS: Heparin 5000 units/ml inj SUBQ SCH ×2 (09:12→21:21)
--- NOTE | 2019-07-23 10:08 | General Progress Note ---
Assessment/Plan Status: stable Assessment/Plan: 89-year-old female with PMH of acute renal failure, s/p right chest wall permacath on HD, dysphasia s/p PEG, multiple pressure wounds, HTN, h/o AMS was recently discharged from this facility for KAREN/rhabdo, unwitnessed fall, was sent to shelter and returned here due to fevers. Patient was admitted for persistent fevers and for sepsis/COVID 19 rule out. ED course: BMP 8000, troponin 0 0.347, patient given for septic work-up and will be admitted for further treatment. #Sepsis #Gram negative bacteremia #infected Permacath #Diarrhea #leukocytosis #ESRD on HD -continue inpatient level of care -CXR w/mild interstitial edema -COVID-19 NEGATIVE, Droplet precautions d/c -c diff negative -Imodium prn -CT abd/pelvis results reviewed -Permacath removed 07/19 -ID following: cont. amikacin, Zosyn, IV vanco -Nephro following: plan for Aman today and PermCath later this week #Anemia of chronic dx -check iron panel, ferritin-> ferritin supersaturated -epogen 4K TIW #Hyperkalemia #Hypokalemia - resolved -replaced, ctm, replace PRN -FWF -Nephro following #HTN #elevated troponin #BNP elevated #Sinus tachycardia - resolved -trops stable 0.254, 0.240, 0.248 -likely due to demand ischemia and ESRD -ASA, statin -cont. lasix 80 IV daily, will change to PO on d/c -hydralazine PRN for SBP >160 -cont Carvedilol 3.25 mg BID -Cardio following, reccs appreciated #Hematuria #Possible Urinary retention. #Possible neurogenic bladder. -UA w/ evidence of RBCs, 4+ blood -Urology recs appreciated #Dysphagia -s/p PEG -tolerating TF -Dietary and GI following, recs appreciated -d/w ST, pt currently unable to manage PO, recommends pt to f/u w/ST as o/p for o/p video swallow once more stable #Pressure wounds -Wound care consulted, recs appreciated DVT ppx - heparin sc Time spent on encounter: 35 mins, >50% on counseling, coordination of care. Subjective ROS Limited/Unobtainable: Yes - non-verbal, minimally communicative Allergies: Coded Allergies: No Known Allergies (Unverified , 06/24/19) Subjective F/u for sepsis, HCAP, fevers. COVID NEGATIVE. No further fevers. Pt non-verbal at this time, unable to obtain ROS otherwise appears comfortable. Objective Last 24 Hour Vital Signs Date Time Temp Pulse Resp B/P (MAP) Pulse Ox O2 Delivery O2 Flow Rate FiO2 07/23/19 09:08 119 125/59 07/23/19 09:00 Nasal Cannula 2.0 Nasal Cannula 2.0 07/23/19 08:00 116 07/23/19 08:00 98.4 119 20 125/59 (81) 98 07/23/19 04:00 98.5 95 18 111/57 (75) 97 07/23/19 04:00 96 07/23/19 00:00 97.7 95 19 128/58 (81) 97 07/22/19 21:00 Nasal Cannula 2.0 Nasal Cannula 2.0 07/22/19 21:00 97 111/70 07/22/19 20:00 114 07/22/19 20:00 98.2 94 19 111/70 (84) 97 07/22/19 16:00 98.1 105 20 116/57 (76) 97 07/22/19 16:00 94 07/22/19 12:00 93 07/22/19 12:00 98.4 96 18 99/50 (66) 99 Intake and Output 07/22/19 07/23/19 19:00 07:00 Output Total 125 ml Balance -125 ml Output Stool Total 125 ml # Voids 2 Laboratory Tests 07/23/19 05:57: White Blood Count 16.2H, Red Blood Count 2.95L, Hemoglobin 8.8L, Hematocrit 27.4L, Mean Corpuscular Volume 93, Mean Corpuscular Hemoglobin 30.0, Mean Corpuscular Hemoglobin Concent 32.4, Red Cell Distribution Width 14.1, Platelet Count 384, Mean Platelet Volume 7.3, Neutrophils (%) (Auto) 80.2H, Lymphocytes ( %) (Auto) 11.4L, Monocytes (%) (Auto) 7.1, Eosinophils (%) (Auto) 0.8, Basophils (%) (Auto) 0.5, Sodium Level 151H, Potassium Level 3.6, Chloride Level 106, Carbon Dioxide Level 25, Anion Gap 20H, Blood Urea Nitrogen 119H, Creatinine 6.1H, Estimat Glomerular Filtration Rate 7.9, Glucose Level 165H, Calcium Level 9.4, Phosphorus Level 5.5H, Magnesium Level 2.8H Height (Feet): 5 Height (Inches): 3.00 Weight (Pounds): 129 Objective General Appearance: alert, awake, in NAD, AOx1 at b/l HEENT: NCAT, EOMi Cardiovascular: normal rate, regular rhythm Respiratory/Chest: lungs clear, normal breath sounds Abdomen: non tender, soft, +PEG c/d/i Ext: contracted b/l, no edema Lisa Brewster M.D. Jul 23, 2019 10:08
--- NOTE | 2019-07-23 10:40 | General Progress Note ---
Assessment/Plan Status: stable Assessment/Plan: 1. End-stage renal disease, on hemodialysis. 2. Anemia. 3. Dysphagia, status post G-tube placement. 4. Pneumonia. 5. Pancreatic cyst. 6. Hypertension. 7. Diarrhea 8. Leukocytosis C.diff>> neg imodium prn GTF abx per ID HD per nephrology repeal labs in am Subjective ROS Limited/Unobtainable: No Allergies: Coded Allergies: No Known Allergies (Unverified , 06/24/19) Objective Last 24 Hour Vital Signs Date Time Temp Pulse Resp B/P (MAP) Pulse Ox O2 Delivery O2 Flow Rate FiO2 07/23/19 09:08 119 125/59 07/23/19 09:00 Nasal Cannula 2.0 Nasal Cannula 2.0 07/23/19 08:00 116 07/23/19 08:00 98.4 119 20 125/59 (81) 98 07/23/19 04:00 98.5 95 18 111/57 (75) 97 07/23/19 04:00 96 07/23/19 00:00 97.7 95 19 128/58 (81) 97 07/22/19 21:00 Nasal Cannula 2.0 Nasal Cannula 2.0 07/22/19 21:00 97 111/70 07/22/19 20:00 114 07/22/19 20:00 98.2 94 19 111/70 (84) 97 07/22/19 16:00 98.1 105 20 116/57 (76) 97 07/22/19 16:00 94 07/22/19 12:00 93 07/22/19 12:00 98.4 96 18 99/50 (66) 99 Intake and Output 07/22/19 07/23/19 19:00 07:00 Output Total 125 ml Balance -125 ml Output Stool Total 125 ml # Voids 2 Laboratory Tests 07/23/19 05:57: White Blood Count 16.2H, Red Blood Count 2.95L, Hemoglobin 8.8L, Hematocrit 27.4L, Mean Corpuscular Volume 93, Mean Corpuscular Hemoglobin 30.0, Mean Corpuscular Hemoglobin Concent 32.4, Red Cell Distribution Width 14.1, Platelet Count 384, Mean Platelet Volume 7.3, Neutrophils (%) (Auto) 80.2H, Lymphocytes ( %) (Auto) 11.4L, Monocytes (%) (Auto) 7.1, Eosinophils (%) (Auto) 0.8, Basophils (%) (Auto) 0.5, Sodium Level 151H, Potassium Level 3.6, Chloride Level 106, Carbon Dioxide Level 25, Anion Gap 20H, Blood Urea Nitrogen 119H, Creatinine 6.1H, Estimat Glomerular Filtration Rate 7.9, Glucose Level 165H, Calcium Level 9.4, Phosphorus Level 5.5H, Magnesium Level 2.8H Height (Feet): 5 Height (Inches): 3.00 Weight (Pounds): 129 General Appearance: no apparent distress EENT: PERRL/EOMI Neck: normal alignment Cardiovascular: normal rate Respiratory/Chest: decreased breath sounds Abdomen: normal bowel sounds, non tender, soft Extremities: non-tender Jun Mena MD Jul 23, 2019 10:40
--- NOTE | 2019-07-23 10:50 | NUR ---
DISCHARGE SWALLOW/SPEECH THERAPY SUMMARY: PATIENT IS ALERT BUT SHE IS NOT FOLLOWING ORAL NOR OTHER COMMANDS. SHE IS SEEN FOR DYSPHAGIA, SEE SWALLOWING EVALUATION REPORT. TO BE CLEARED FOR ORAL GRATIFICATION AND MODIFIED BARIUM SWALLOW STUDY READINESS (TO R/O SILENT ASPIRATION AND FURTHER ASSESS SWALLOW), SHE NEEDS TO TAKE PO TRIAL (TSP NECTAR THICK WATER) CONSISTENTLY. SHE IS CONSISTENTLY RESTRICTING HER MOUTH OPENING WHEN ASKED TO TAKE SOME PO. EDUCATED HYUN DELEON AND CASA ANN IN POSTED ORAL CARE NEEDS AND ASPIRATION PRECAUTIONS WITH PEG FEEDINGS. PLAN: D/C FROM [facility] AT THIS TIME. F/UP WITH [facility] AND DRIVER FOR SKILLED DYSPHAGIA MANAGEMENT/TX AND HAD MODIFIED BARIUM SWALLOW STUDY AN OUTPT IF INDICATED AND WHEN SHE IS MORE RECEPTIVE TO PO TRIALS.
[2019-07-23 12:16] VITALS: BP 124/58
--- NOTE | 2019-07-23 13:00 | Urology Progress Note ---
Assessment/Plan Status: stable Assessment/Plan: 1. Hematuria, which was previously gross and now microscopic. 2. End-stage renal disease, on hemodialysis. 3. Urinary retention history, now with incontinence. 4. Probable neurogenic bladder. 5. Pyuria. 6. Proteinuria. 7. History of acute kidney injury. 9. Nephrolithiasis. 8. Sepsis? monitor clinically abx as ordered, per ID I+O cath PRN cysto later HD per mexican food maker f/u on blood cx Subjective Allergies: Coded Allergies: No Known Allergies (Unverified , 06/24/19) Subjective all noted, urinary incontinence, urine reported grossly non-bloody Objective Last 24 Hour Vital Signs Date Time Temp Pulse Resp B/P (MAP) Pulse Ox O2 Delivery O2 Flow Rate FiO2 07/23/19 12:16 96.7 103 18 124/58 (80) 97 07/23/19 09:08 119 125/59 07/23/19 09:00 Nasal Cannula 2.0 Nasal Cannula 2.0 07/23/19 08:00 116 07/23/19 08:00 98.4 119 20 125/59 (81) 98 07/23/19 04:00 98.5 95 18 111/57 (75) 97 07/23/19 04:00 96 07/23/19 00:00 97.7 95 19 128/58 (81) 97 07/22/19 21:00 Nasal Cannula 2.0 Nasal Cannula 2.0 07/22/19 21:00 97 111/70 07/22/19 20:00 114 07/22/19 20:00 98.2 94 19 111/70 (84) 97 07/22/19 16:00 98.1 105 20 116/57 (76) 97 07/22/19 16:00 94 Intake and Output 07/22/19 07/23/19 19:00 07:00 Output Total 125 ml Balance -125 ml Output Stool Total 125 ml # Voids 2 Microbiology Date/Time Source Procedure Growth Status 07/22/19 03:20 Blood Blood Culture - Preliminary NO GROWTH AFTER 24 HOURS Resulted 07/20/19 04:30 Sputum Induced Gram Stain - Final Resulted 07/20/19 04:30 Sputum Culture - Preliminary Pseudomonas Aeruginosa Melanie Albicans Usual Respiratory Cristina Resulted 07/17/19 07:00 Stool Clostridium difficile Toxin Assay - Final Complete 07/20/19 13:18 Catheter Site Catheter Tip Culture - Preliminary NO GROWTH AFTER 48 HOURS Resulted Current Medications Medications (Trade) Dose Ordered Sig/Joan Route PRN Reason Start Time Stop Time Status Last Admin Dose Admin Acetaminophen (Tylenol) 650 mg Q4H PRN ORAL Mild Pain (Pain Scale 1-3) 07/14/19 14:45 08/13/19 14:44 07/22/19 08:45 Amikacin Protocol (Amikacin pharmacy to dose) 1 ea DAILY PRN MISC . 07/20/19 09:45 08/19/19 09:44 Atorvastatin Calcium (Lipitor) 10 mg QHS GT 07/14/19 21:00 10/12/19 20:59 07/22/19 21:00 Carvedilol (Coreg) 3.125 mg EVERY 12 HOURS ORAL 07/19/19 09:00 08/18/19 08:59 07/23/19 09:08 Chlorhexidine Gluconate (Cari-Hex 2%) 1 applic DAILY@1999 TOPIC 07/15/19 20:00 10/13/19 19:59 07/22/19 20:00 Dextrose (Dextrose 50%) 25 ml Q30M PRN IV Hypoglycemia 07/14/19 14:45 10/12/19 14:44 Dextrose (Dextrose 50%) 50 ml Q30M PRN IV Hypoglycemia 07/14/19 14:45 10/12/19 14:44 Epoetin Dion (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)) 4,000 unit MON-MON-MON SUBQ 07/24/19 21:00 10/22/19 20:59 Heparin Sodium (Porcine) (Heparin 5000 units/ml) 5,000 units EVERY 12 HOURS SUBQ 07/14/19 21:00 08/28/19 20:59 07/23/19 09:12 Hydralazine HCl (Apresoline) 10 mg Q4H PRN IV For High Blood Pressure 07/14/19 15:30 10/12/19 15:29 Lactobacillus Acidophilus (Culturelle) 1 tab Q12HR GT 07/15/19 12:14 10/13/19 12:13 07/23/19 09:08 Loperamide HCl (Imodium) 2 mg Q6H PRN NG Diarrhea 07/18/19 09:00 08/17/19 08:59 07/18/19 10:37 Meropenem 500 mg/ Sodium Chloride 50 ml @ 100 mls/hr Q24H IVPB 07/21/19 18:00 07/26/19 17:59 07/22/19 18:35 Ondansetron HCl (Zofran) 4 mg Q6H PRN IVP Nausea & Vomiting 07/14/19 14:45 08/13/19 14:44 Vancomycin HCl (Vanco rx to dose) 1 ea DAILY PRN MISC Per rx protocol 07/14/19 14:45 08/13/19 14:44 Laboratory Tests 07/23/19 05:57: White Blood Count 16.2H, Red Blood Count 2.95L, Hemoglobin 8.8L, Hematocrit 27.4L, Mean Corpuscular Volume 93, Mean Corpuscular Hemoglobin 30.0, Mean Corpuscular Hemoglobin Concent 32.4, Red Cell Distribution Width 14.1, Platelet Count 384, Mean Platelet Volume 7.3, Neutrophils (%) (Auto) 80.2H, Lymphocytes ( %) (Auto) 11.4L, Monocytes (%) (Auto) 7.1, Eosinophils (%) (Auto) 0.8, Basophils (%) (Auto) 0.5, Sodium Level 151H, Potassium Level 3.6, Chloride Level 106, Carbon Dioxide Level 25, Anion Gap 20H, Blood Urea Nitrogen 119H, Creatinine 6.1H, Estimat Glomerular Filtration Rate 7.9, Glucose Level 165H, Calcium Level 9.4, Phosphorus Level 5.5H, Magnesium Level 2.8H Height (Feet): 5 Height (Inches): 3.00 Weight (Pounds): [address] A/P (07/18) noted Omar Mckoy MD Jul 23, 2019 13:00
--- NOTE | 2019-07-23 13:18 | Nephrology Progress Note ---
Assessment/Plan Plan #Acute renal failure recent started on HD in 06/2018- #Sepsis #Dementia #HTN #elevated troponin #Dysphagia s/p PEG #urinary retention - permacath removed 07/19 --> temp HD catheter today --> HD today with low sodium bacth - monitor BMP closley - agree with FWF 100 q6 - continue lasix 80 IV daily -> switch to oral on DC - cardiology eval - monitor UOP - urology eval - continue antibiotics per ID - coreg 3.125mg BID - follow repeat blood cx- growing pseudomonas - check iron panel, ferritin-> ferritin supersaturated - continue epogen 4K TIW - monitor BMP, mag and phos daily for now Subjective ROS Limited/Unobtainable: Yes Subjective blood cx growing pseudomonas temp HD catheter today HD today with low sodium bacth permcath removed 07/19 BP stable breathing stable on NC persistent leukoocytosis noted sodium elevated Objective Objective Last 24 Hour Vital Signs Date Time Temp Pulse Resp B/P (MAP) Pulse Ox O2 Delivery O2 Flow Rate FiO2 07/23/19 12:16 96.7 103 18 124/58 (80) 97 07/23/19 09:08 119 125/59 07/23/19 09:00 Nasal Cannula 2.0 Nasal Cannula 2.0 07/23/19 08:00 116 07/23/19 08:00 98.4 119 20 125/59 (81) 98 07/23/19 04:00 98.5 95 18 111/57 (75) 97 07/23/19 04:00 96 07/23/19 00:00 97.7 95 19 128/58 (81) 97 07/22/19 21:00 Nasal Cannula 2.0 Nasal Cannula 2.0 07/22/19 21:00 97 111/70 07/22/19 20:00 114 07/22/19 20:00 98.2 94 19 111/70 (84) 97 07/22/19 16:00 98.1 105 20 116/57 (76) 97 07/22/19 16:00 94 Intake and Output 07/22/19 07/23/19 19:00 07:00 Output Total 125 ml Balance -125 ml Output Stool Total 125 ml # Voids 2 Laboratory Tests 07/23/19 05:57: White Blood Count 16.2H, Red Blood Count 2.95L, Hemoglobin 8.8L, Hematocrit 27.4L, Mean Corpuscular Volume 93, Mean Corpuscular Hemoglobin 30.0, Mean Corpuscular Hemoglobin Concent 32.4, Red Cell Distribution Width 14.1, Platelet Count 384, Mean Platelet Volume 7.3, Neutrophils (%) (Auto) 80.2H, Lymphocytes ( %) (Auto) 11.4L, Monocytes (%) (Auto) 7.1, Eosinophils (%) (Auto) 0.8, Basophils (%) (Auto) 0.5, Sodium Level 151H, Potassium Level 3.6, Chloride Level 106, Carbon Dioxide Level 25, Anion Gap 20H, Blood Urea Nitrogen 119H, Creatinine 6.1H, Estimat Glomerular Filtration Rate 7.9, Glucose Level 165H, Calcium Level 9.4, Phosphorus Level 5.5H, Magnesium Level 2.8H Height (Feet): 5 Height (Inches): 3.00 Weight (Pounds): 129 Objective General: NAD, A&O x 1, self only HEENT: NCAT, EOMi, PEERLA, nares patent and no symmetrical, no tonsillar exudates, mucous membranes moist CV: RRR, no murmurs, rubs, or gallops Pulm: CTAB, No wheezes, rhonchi, or rales, no accessory muscle usage or conversational dyspnea GI: Soft, nontender, nondistended, bowel sounds present, PEG tube in place, C/D/ I Neuro: CN 2-12 grossly intact bilaterally, no focal signs. Ext: No lower extremity edema bilaterally, LE contracted bilaterally Skin: Multiple pressure ulcers noted on hip/heels Lymph: No lymphadenopathy in upper extremity and lower extremity Rory Oconnor M.D. Jul 23, 2019 13:18
--- NOTE | 2019-07-23 13:47 | Surgery Progress Note ---
Surgery Progress Note Subjective Procedure Performed removal of tunneled right chest wall catheter HD Additional Comments plan for hd line today otherwise stable Objective Last 24 Hour Vital Signs Date Time Temp Pulse Resp B/P (MAP) Pulse Ox O2 Delivery O2 Flow Rate FiO2 07/23/19 12:16 96.7 103 18 124/58 (80) 97 07/23/19 12:00 99 07/23/19 09:08 119 125/59 07/23/19 09:00 Nasal Cannula 2.0 Nasal Cannula 2.0 07/23/19 08:00 116 07/23/19 08:00 98.4 119 20 125/59 (81) 98 07/23/19 04:00 98.5 95 18 111/57 (75) 97 07/23/19 04:00 96 07/23/19 00:00 97.7 95 19 128/58 (81) 97 07/22/19 21:00 Nasal Cannula 2.0 Nasal Cannula 2.0 07/22/19 21:00 97 111/70 07/22/19 20:00 114 07/22/19 20:00 98.2 94 19 111/70 (84) 97 07/22/19 16:00 98.1 105 20 116/57 (76) 97 07/22/19 16:00 94 I&O Intake and Output 07/22/19 07/23/19 19:00 07:00 Output Total 125 ml Balance -125 ml Output Stool Total 125 ml # Voids 2 Dressing: other Wound: other Drains: other Cardiovascular: RSR Respiratory: decreased breath sounds Abdomen: soft, present bowel sounds Extremities: no cyanosis, other Laboratory Tests Test 07/23/19 05:57 White Blood Count 16.2 K/UL (4.8-10.8) H Red Blood Count 2.95 M/UL (4.20-5.40) L Hemoglobin 8.8 G/DL (12.0-16.0) L Hematocrit 27.4 % (37.0-47.0) L Mean Corpuscular Volume 93 FL (80-99) Mean Corpuscular Hemoglobin 30.0 PG (27.0-31.0) Mean Corpuscular Hemoglobin Concent 32.4 G/DL (32.0-36.0) Red Cell Distribution Width 14.1 % (11.6-14.8) Platelet Count 384 K/UL (150-450) Mean Platelet Volume 7.3 FL (6.5-10.1) Neutrophils (%) (Auto) 80.2 % (45.0-75.0) H Lymphocytes (%) (Auto) 11.4 % (20.0-45.0) L Monocytes (%) (Auto) 7.1 % (1.0-10.0) Eosinophils (%) (Auto) 0.8 % (0.0-3.0) Basophils (%) (Auto) 0.5 % (0.0-2.0) Sodium Level 151 MMOL/L (136-145) H Potassium Level 3.6 MMOL/L (3.5-5.1) Chloride Level 106 MMOL/L (98-107) Carbon Dioxide Level 25 MMOL/L (21-32) Anion Gap 20 mmol/L (5-15) H Blood Urea Nitrogen 119 mg/dL (7-18) H Creatinine 6.1 MG/DL (0.55-1.30) H Estimat Glomerular Filtration Rate 7.9 mL/min (>60) Glucose Level 165 MG/DL (74-106) H Calcium Level 9.4 MG/DL (8.5-10.1) Phosphorus Level 5.5 MG/DL (2.5-4.9) H Magnesium Level 2.8 MG/DL (1.8-2.4) H Plan Problems: (1) Decubitus skin ulcer Assessment & Plan: Pt presented on admission with multiple pressure injuries. Unstageable pressure injury R shoulder(L)3.8cm x (W)3.3cm. Base of wound is 100 % necrotic and dry. Marginal erythema along borders. No erythema or induration periwound. Reabsorbed DTPI R Humerus. Base of injury has dry peeling brown skin with underlying dry pink epithelial. R elbow pressure injury has resolved. Full thickness pressure injury R hip (L)7cm x (W)13.1cm. Base of wound is 70% fibrinous slough,10% necrotic ,20% moist pink granulation. Edges are macerated.Small amt seropurulent non-odorous exudate noted. NO erythema , induration or elevation in skin temp periwound. Opened DTPI Sacrum(L)9cm x (W)15cm. Base of wound is purple,indurated with an open wound at sacrococcygeal which has 100% slough(L)1.6cm x (W)1cm. Surrounding Skin hypopigmentation with areas of excoriation extending into perineum and perianal area. Unstageable pressure injury lateral R malleolus(L)2.5cm x (W)3cm. Base of wound is 100% dry necrosis. Edges adherent to base of wound. No erythema induration or fluctuance periwound. Reabsorbing DTPI R heel. Base of Heel is boggy,non-blanching erythema with dry peeling brown skin along edges.(L)4.2cm x (W)6cm. Resolving DTPI distal/lateral R foot. Stable dry brown eschar without fluctuance or induration(L)1cm x (W)1.5cm. Resolving DTPI Lateral R 5th metatarsal.Base of injury is dry,brown without fluctuance or induration.(L)0.6cm x (W)1cm Unstageable pressure injury L Hallux(L)4cm x (W)2.7cm. Base of wound is 80% necrotic,20% slough with marginal erythema along borders. No odor or exudate noted. DTPI L Heel. Base of injury maroon and fluctuant. Periwound is boggy but blanchable(L)5.5cm x (W)6.5cm. Tx.Plan: Cleanse R shoulder with Saline. Apply Therahoney. Apply Cavilon Periwound. Cover with Optifoam drsg. Change every 3 days and prn. Cleanse R hip with Saline. Apply Therahoney.Apply Moisture Barrier Periwound. Cover with Optifoam drsg. Change Daily and prn. Cleanse Sacrum with Saline. Apply Therahoney. Apply Moisture Barrier Paste periwound. Cover with Optifoam drsg. Change every 3 days and prn. Apply Moisture Barrier Paste to perineum and perianal areas with each incontinence care. Apply Betadine to R heel,Distal/lateral R foot ,R5th metatarsal. Cover with Optifoam drsg. Change every 3 days and prn. Apply Betadine to L hallux,and L heel. Cover each site with Optifoam drsg. Change every 3 days and prn. Reposition at least every 2hours or as tolerated. Place pillow between knees. off-load heels with pillow. (2) Fever Assessment & Plan: covid negative discussed with pcp and nephro may need to remove catheter as possible etiology covid negative c diff negative blood cultures from line. if positive will remove after next HD then line holiday blood cx with gram neg d/c line Line removed see note Line holiday Antibiotics as per infectious disease (3) Protein calorie malnutrition Assessment & Plan: DAILY ESTIMATED NEEDS: Needs based on Wounds, HD 51.8kg 30-35 kcals/kg [id number] total kcals 1.25-1.8 g protein/kg 65-93 g total protein Fluids per MD mL/kg . total fluid mLs NUTRITION DIAGNOSIS: * Increased kcal and prot needs r/t wound healing and renal failure as evidenced by w/ multiple pressure injuries, pending re-evaluation, s/p recent PermCath placement, HD dependent. * Swallowing difficulty R/T dysphagia as evidenced by s/p recent PEG placement, on GT feeding. CURRENT TF:Jevity 1.2 @ 50ml/hr x 24 hrs ENTERAL NUTRITION RECOMMENDATIONS: Nepro @ 38ml/hr x 24 hrs to provide 912ml, 1642kcal, 74g prot, 663ml free water - Rec TF change to Nepro- HD dependent - Initiate Nepro @ 28ml/hr x 6 hrs, increase to goal as tolerated. - HOB over 30 degrees/ water flush per MD ADDITIONAL RECOMMENDATIONS: 1) Calibrated bedscale wt 2) Wound Care: add Nephrovite x 1 add Saw 1ptk BID when TF well tolerated @ goal 3) Check phos and mag levels 4) Monitor BGs, need for nISS 5) Add probiotics: h/o LBM prev adm, prolonged use of abx (4) Pressure ulcer Anshul Nava Jul 23, 2019 13:47
--- NOTE | 2019-07-23 13:51 | Operative Note - PDOC ---
Operative Note Operative Note Pre-op Diagnosis: renal insufficiency requiring HD Procedure: right femoral temporary HD catheter insertion Post-op Diagnosis: same as pre-op Surgeon: madan Anesthesia: other Specimen: none Complications: none Condition: stable Estimated Blood Loss: none Drains: none Implant(s) used?: No Indications for Procedure 89F on HD. infected tunneled line removed recently. line holiday for a few days. now needs HD again. temp HD catheter indicated and recommended. consent from POA after phone conversation Description of Procedure patient made comfortable supine at bedside. right groin prepped and draped. right femoral vein cannulated on first attempt. good venous flow noted. guide wire passed and needle removed. small skin incision made. dilators used. 20cm 13f temp HD cath inserted without complication. wire removed and discarded. all ports flushed and aspirated. line sutured. dressings applied. Anshul Nava Jul 23, 2019 13:50
[2019-07-23 16:00] VITALS: BP 126/61
--- NOTE | 2019-07-23 19:05 | Infectious Diseases Prog Note ---
Assessment/Plan Assessment/Plan ASSESSMENT AND PLAN: 1. sepsis, fevers, leukocytosis, ? pna, diarrhea, covid-19 test negative, ? right hip wound infection pseudomonas bacteremia/line infection, pseudomonas pna - vancomycin and zosyn, amikacin - hd line removed - new hd line placed - wound care per surgery and protocol - monitor labs - monitor chest x-ray - c.diff. - negative - surveillance blood cultures - negative - cath tip - negative to date 2. The patient has end-stage renal disease, on hemodialysis and PermCath. 3. Skin care protocol. 4. Anemia. 5. The patient has history of dysphagia, on G-tube. 6. Aspiration risk. 7. Hypertension. 8. Altered mental status. 9. History of Strep viridans bacteremia. 10. Hypertension, treatment per primary care team. 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 12. History of non-STEMI and CAD. 13. History of rhabdomyolysis. 14. History of acute renal failure, on dialysis. 15. Coronary artery disease. 16. No known drug allergies. 17. Social history negative. 18. Family history noncontributory. 19. MAR was noted. 20. Case discussed with RN. 21. Isolation in the acute care. 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 Subjective Constitutional: Reports: fatigue; Denies: fever HEENT: Denies: congestion Respiratory: Denies: shortness of breath Cardiovascular: Denies: chest pain Gastrointestinal/Abdominal: Reports: diarrhea, other - + rectal tube ; Denies: nausea, vomiting Genitourinary: Reports: other - no hargrove, + hd Neurologic: Denies: headache Psychiatric: Denies: depression Skin: Denies: rash Hematologic: Denies: bleeding Musculoskeletal: Reports: other - NA Allergies: Coded Allergies: No Known Allergies (Unverified , 06/24/19) Objective Vital Signs Last 24 Hour Vital Signs Date Time Temp Pulse Resp B/P (MAP) Pulse Ox O2 Delivery O2 Flow Rate FiO2 07/23/19 16:00 97 07/23/19 16:00 97.9 103 18 126/61 (82) 100 07/23/19 12:16 96.7 103 18 124/58 (80) 97 07/23/19 12:00 99 07/23/19 09:08 119 125/59 07/23/19 09:00 Nasal Cannula 2.0 Nasal Cannula 2.0 07/23/19 08:00 116 07/23/19 08:00 98.4 119 20 125/59 (81) 98 07/23/19 04:00 98.5 95 18 111/57 (75) 97 07/23/19 04:00 96 07/23/19 00:00 97.7 95 19 128/58 (81) 97 07/22/19 21:00 Nasal Cannula 2.0 Nasal Cannula 2.0 07/22/19 21:00 97 111/70 07/22/19 20:00 114 07/22/19 20:00 98.2 94 19 111/70 (84) 97 Height (Feet): 5 Height (Inches): 3.00 Weight (Pounds): 129 General Appearance: no acute distress HEENT: normocephalic, atraumatic Respiratory/Chest: crackles/rales, rhonchi - bilaterally Cardiovascular: normal rate, regular rhythm, no gallop/murmur, no JVD Abdomen: normal bowel sounds, soft, non tender, no organomegaly, non distended Genitourinary: other - + hargrove Extremities: no cyanosis Skin: no rash Neurologic/Psychiatric: forest fire lookout 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 normal, alert, responsive Lymphatic: no neck adenopathy Musculoskeletal: no effusion Objective Chest - 07/16/19 - Procedure: XRAY Chest 1v Indication: Dyspnea Comparison: 07/14/2019 A single view chest radiograph was obtained. Findings: Pulmonary vessel congestion noted. Heart is enlarged. Interstitial edema is mild. Bones are osteopenic. IMPRESSION: Mild interstitial edema Chest x-ray - 07/19/19 - Impression: Worsening of aeration with increasing haziness of the pulmonary vascularity and development of hazy perihilar airspace opacities. Findings likely related to fluid overload/CHF. Superimposed infection however not excluded. Clinical correlation and follow-up recommended. CT scan of abdomen and pelvis: IMPRESSION: Limited exam without intravenous contrast. Within these limitations: * Patchy opacities in the lung bases, left greater than right. Findings may related to subsegmental atelectasis. Possibility of pneumonia however not excluded. * Extensive coronary arterial calcifications. * Dialysis catheter partially visualized. * Indwelling gastrostomy and rectal tubes. * No intraabdominal fluid collection/abscess. * Interval removal of Hargrove catheter. Bladder is mildly distended but otherwise unremarkable. * Extensive atherosclerotic vascular calcifications. * Irregularity the skin overlying the inferior aspect of the sacrum. Correlate clinically to exclude the possibility of sacral decubitus ulcer. No subcutaneous fluid collection/abscess. * Osteopenia and severe degenerative changes of the spine with unchanged vertebral body compression deformities. * 1.5 cm cystic l Chest x-ray - 07/22/19 - Procedure: XRAY Chest 1v Indication: Dyspnea Comparison: 07/19/2019 A single view chest radiograph was obtained. Findings: No definite infiltrate or pulmonary vascular congestion identified. Right permacath was removed. The heart is enlarged. The aorta is mildly enlarged consistent with atherosclerotic vascular disease. The bones are osteopenic. There are thoracic vertebral enthesophytes at multiple levels. Impression: No acute disease Microbiology Date/Time Source Procedure Growth Status 07/22/19 03:20 Blood Blood Culture - Preliminary NO GROWTH AFTER 24 HOURS Resulted 07/20/19 04:30 Sputum Induced Gram Stain - Final Resulted 07/20/19 04:30 Sputum Culture - Preliminary Pseudomonas Aeruginosa Melanie Albicans Usual Respiratory Cristina Resulted 07/17/19 07:00 Stool Clostridium difficile Toxin Assay - Final Complete 07/20/19 13:18 Catheter Site Catheter Tip Culture - Preliminary NO GROWTH AFTER 48 HOURS Resulted Microbiology Date/Time Source Procedure Growth Status 07/22/19 03:20 Blood Blood Culture - Preliminary NO GROWTH AFTER 24 HOURS Resulted 07/22/19 03:15 Blood Blood Culture - Preliminary NO GROWTH AFTER 24 HOURS Resulted Laboratory Tests Test 07/23/19 05:57 White Blood Count 16.2 K/UL (4.8-10.8) H Red Blood Count 2.95 M/UL (4.20-5.40) L Hemoglobin 8.8 G/DL (12.0-16.0) L Hematocrit 27.4 % (37.0-47.0) L Mean Corpuscular Volume 93 FL (80-99) Mean Corpuscular Hemoglobin 30.0 PG (27.0-31.0) Mean Corpuscular Hemoglobin Concent 32.4 G/DL (32.0-36.0) Red Cell Distribution Width 14.1 % (11.6-14.8) Platelet Count 384 K/UL (150-450) Mean Platelet Volume 7.3 FL (6.5-10.1) Neutrophils (%) (Auto) 80.2 % (45.0-75.0) H Lymphocytes (%) (Auto) 11.4 % (20.0-45.0) L Monocytes (%) (Auto) 7.1 % (1.0-10.0) Eosinophils (%) (Auto) 0.8 % (0.0-3.0) Basophils (%) (Auto) 0.5 % (0.0-2.0) Sodium Level 151 MMOL/L (136-145) H Potassium Level 3.6 MMOL/L (3.5-5.1) Chloride Level 106 MMOL/L (98-107) Carbon Dioxide Level 25 MMOL/L (21-32) Anion Gap 20 mmol/L (5-15) H Blood Urea Nitrogen 119 mg/dL (7-18) H Creatinine 6.1 MG/DL (0.55-1.30) H Estimat Glomerular Filtration Rate 7.9 mL/min (>60) Glucose Level 165 MG/DL (74-106) H Calcium Level 9.4 MG/DL (8.5-10.1) Phosphorus Level 5.5 MG/DL (2.5-4.9) H Magnesium Level 2.8 MG/DL (1.8-2.4) H Current Medications Medications (Trade) Dose Ordered Sig/Joan Route PRN Reason Start Time Stop Time Status Last Admin Dose Admin Acetaminophen (Tylenol) 650 mg Q4H PRN ORAL Mild Pain (Pain Scale 1-3) 07/14/19 14:45 08/13/19 14:44 07/22/19 08:45 Albumin Human 100 ml @ 100 mls/hr ONCE IV 07/23/19 18:00 07/23/19 19:00 07/23/19 18:41 Albumin Human 100 ml @ 100 mls/hr ONCE IV 07/23/19 19:00 07/23/19 20:00 07/23/19 18:42 Amikacin Protocol (Amikacin pharmacy to dose) 1 ea DAILY PRN MISC . 07/20/19 09:45 08/19/19 09:44 Atorvastatin Calcium (Lipitor) 10 mg QHS GT 07/14/19 21:00 10/12/19 20:59 07/22/19 21:00 Carvedilol (Coreg) 3.125 mg EVERY 12 HOURS ORAL 07/19/19 09:00 08/18/19 08:59 07/23/19 09:08 Chlorhexidine Gluconate (Cari-Hex 2%) 1 applic DAILY@2000 TOPIC 07/15/19 20:00 10/13/19 19:59 07/22/19 20:00 Dextrose (Dextrose 50%) 25 ml Q30M PRN IV Hypoglycemia 07/14/19 14:45 10/12/19 14:44 Dextrose (Dextrose 50%) 50 ml Q30M PRN IV Hypoglycemia 07/14/19 14:45 10/12/19 14:44 Epoetin Dion (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)) 4,000 unit MON-MON-MON SUBQ 07/24/19 21:00 10/22/19 20:59 Heparin Sodium (Porcine) (Heparin 5000 units/ml) 5,000 units EVERY 12 HOURS SUBQ 07/14/19 21:00 08/28/19 20:59 07/23/19 09:12 Hydralazine HCl (Apresoline) 10 mg Q4H PRN IV For High Blood Pressure 07/14/19 15:30 10/12/19 15:29 Lactobacillus Acidophilus (Culturelle) 1 tab Q12HR GT 07/15/19 12:14 10/13/19 12:13 07/23/19 09:08 Loperamide HCl (Imodium) 2 mg Q6H PRN NG Diarrhea 07/18/19 09:00 08/17/19 08:59 07/18/19 10:37 Ondansetron HCl (Zofran) 4 mg Q6H PRN IVP Nausea & Vomiting 07/14/19 14:45 08/13/19 14:44 Piperacillin Sod/ Tazobactam Sod 3.375 gm/Dextrose 100 ml @ 25 mls/hr EVERY 12 HOURS IVPB 07/23/19 21:00 07/28/19 20:59 Vancomycin HCl (Vanco rx to dose) 1 ea DAILY PRN MISC Per rx protocol 07/14/19 14:45 08/13/19 14:44 Ana Rosado MD Jul 23, 2019 19:05
--- NOTE | 2019-07-23 19:10 | NUR ---
NURSE NOTES: Recieved report from HYUN Comer. Seen pt in my initial rounding. Pt resting in bed, resp even, no apparent acute CV c/o noted. GT tube feeding infusing well. HOB up, O2 2LNC in use. Continue to monitor.
--- NOTE | 2019-07-23 19:14 | NUR ---
HAND-OFF: Report given to HYUN Joseph. Patient is being dialyzed at this time. Endorsed the plan of care to the in-coming nurse. Patient is in stable condition.
[2019-07-23 20:00] VITALS: BP 159/57
--- NOTE | 2019-07-23 21:09 | Neurology Progress Note ---
Interim History Interim History ROS Limited/Unobtainable: Yes Interim History lethargic, plan for HD Objective Physical Exam Last Vital Signs Date Time Temp Pulse Resp B/P (MAP) Pulse Ox O2 Delivery O2 Flow Rate FiO2 07/23/19 16:00 97 07/23/19 16:00 97.9 18 126/61 (82) 100 07/23/19 09:00 Nasal Cannula 2.0 Nasal Cannula 2.0 Laboratory Tests Test 07/23/19 05:57 White Blood Count 16.2 K/UL (4.8-10.8) H Red Blood Count 2.95 M/UL (4.20-5.40) L Hemoglobin 8.8 G/DL (12.0-16.0) L Hematocrit 27.4 % (37.0-47.0) L Mean Corpuscular Volume 93 FL (80-99) Mean Corpuscular Hemoglobin 30.0 PG (27.0-31.0) Mean Corpuscular Hemoglobin Concent 32.4 G/DL (32.0-36.0) Red Cell Distribution Width 14.1 % (11.6-14.8) Platelet Count 384 K/UL (150-450) Mean Platelet Volume 7.3 FL (6.5-10.1) Neutrophils (%) (Auto) 80.2 % (45.0-75.0) H Lymphocytes (%) (Auto) 11.4 % (20.0-45.0) L Monocytes (%) (Auto) 7.1 % (1.0-10.0) Eosinophils (%) (Auto) 0.8 % (0.0-3.0) Basophils (%) (Auto) 0.5 % (0.0-2.0) Sodium Level 151 MMOL/L (136-145) H Potassium Level 3.6 MMOL/L (3.5-5.1) Chloride Level 106 MMOL/L (98-107) Carbon Dioxide Level 25 MMOL/L (21-32) Anion Gap 20 mmol/L (5-15) H Blood Urea Nitrogen 119 mg/dL (7-18) H Creatinine 6.1 MG/DL (0.55-1.30) H Estimat Glomerular Filtration Rate 7.9 mL/min (>60) Glucose Level 165 MG/DL (74-106) H Calcium Level 9.4 MG/DL (8.5-10.1) Phosphorus Level 5.5 MG/DL (2.5-4.9) H Magnesium Level 2.8 MG/DL (1.8-2.4) H Head: normocophalic Neck: no rigidity EENT: benign Neurologic Exam Mental Status: awake Cranial Nerves III, IV, : PERRLA Objective Wakes up, tracks with eyes, tell me her name, withdraws all 4 Impression/Recommendations Problems: (1) Decubitus skin ulcer (2) Fever (3) Rhabdomyolysis (4) Elevated troponin (5) KAREN (acute kidney injury) (6) Fever (7) Elevated brain natriuretic peptide (BNP) level (8) ESRD (end stage renal disease) on dialysis (9) ESRD (end stage renal disease) on dialysis (10) Pressure ulcer (11) Protein calorie malnutrition (12) Dysphagia Status: stable Diagnostic Impression Acute encephalopathy, improved baseline dementia Sepsis Monitor neuro exam for improvement cont atb neg covid Delirium precautions Sushil Stevenson MD Jul 23, 2019 21:09
[2019-07-23] MEDS: Dyna-Hex 2% Top Sol 2oz TOPIC SCH (21:21)
[2019-07-24] VITALS: BP 107/60
[2019-07-24 04:00] VITALS: BP 101/57
[2019-07-24 06:55] LABS: BASOPHILS % (AUTO) 0.4 % (0.0-2.0); HEMATOCRIT 25.2 % (37.0-47.0); HEMOGLOBIN 8.1 G/DL (12.0-16.0); LYMPHOCYTES % (AUTO) 14.4 % (20.0-45.0); MEAN CORPUSCULAR VOLUME 93 FL (80-99); MONOCYTES % (AUTO) 7.3 % (1.0-10.0); NEUTROPHILS % (AUTO) 76.8 % (45.0-75.0); PLATELET COUNT 353 K/UL (150-450); RED BLOOD COUNT 2.71 M/UL (4.20-5.40); RED CELL DISTRIBUTION WIDTH 13.6 % (11.6-14.8); WHITE BLOOD COUNT 14.8 K/UL (4.8-10.8)
--- NOTE | 2019-07-24 07:05 | NUR ---
HAND-OFF: Report given to HYUN Comer.
--- NOTE | 2019-07-24 07:07 | General Progress Note ---
Assessment/Plan Status: stable Assessment/Plan: 1. End-stage renal disease, on hemodialysis. 2. Anemia. 3. Dysphagia, status post G-tube placement. 4. Pneumonia. 5. Pancreatic cyst. 6. Hypertension. 7. Diarrhea 8. Leukocytosis C.diff>> neg imodium prn GTF abx per ID HD per nephrology neurology in put appreciated repeal labs in am stool ob Subjective Allergies: Coded Allergies: No Known Allergies (Unverified , 06/24/19) Objective Last 24 Hour Vital Signs Date Time Temp Pulse Resp B/P (MAP) Pulse Ox O2 Delivery O2 Flow Rate FiO2 07/24/19 04:00 97.7 93 17 101/57 (72) 98 07/24/19 04:00 92 07/24/19 03:48 Nasal Cannula 2.0 Nasal Cannula 2.0 07/24/19 01:11 91 07/24/19 00:00 98.5 92 18 107/60 (76) 97 07/24/19 00:00 Nasal Cannula 2.0 Nasal Cannula 2.0 07/23/19 21:22 93 159/57 07/23/19 21:00 Nasal Cannula 2.0 Nasal Cannula 2.0 07/23/19 21:00 98 07/23/19 20:00 98.2 93 19 159/57 (91) 98 07/23/19 16:00 97 07/23/19 16:00 97.9 103 18 126/61 (82) 100 07/23/19 12:16 96.7 103 18 124/58 (80) 97 07/23/19 12:00 99 07/23/19 09:08 119 125/59 07/23/19 09:00 Nasal Cannula 2.0 Nasal Cannula 2.0 07/23/19 08:00 116 07/23/19 08:00 98.4 119 20 125/59 (81) 98 Intake and Output 07/23/19 07/24/19 19:00 07:00 Intake Total 138 ml 440 ml Output Total 130 ml 600 ml Balance 8 ml -160 ml Intake Free Water 100 ml 60 ml Tube Feeding 38 ml Other 380 ml Output Stool Total 130 ml 600 ml # Voids 1 Laboratory Tests 07/24/19 06:11: White Blood Count 14.8H, Red Blood Count 2.71L, Hemoglobin 8.1L, Hematocrit 25.2L, Mean Corpuscular Volume 93, Mean Corpuscular Hemoglobin 30.0, Mean Corpuscular Hemoglobin Concent 32.3, Red Cell Distribution Width 13.6, Platelet Count 353, Mean Platelet Volume 7.6, Neutrophils (%) (Auto) 76.8H, Lymphocytes ( %) (Auto) 14.4L, Monocytes (%) (Auto) 7.3, Eosinophils (%) (Auto) 1.0, Basophils (%) (Auto) 0.4, Sodium Level [Pending], Potassium Level [Pending], Chloride Level [Pending], Carbon Dioxide Level [Pending], Blood Urea Nitrogen [ Pending], Creatinine [Pending], Estimat Glomerular Filtration Rate [Pending], Glucose Level [Pending], Calcium Level [Pending] Height (Feet): 5 Height (Inches): 3.00 Weight (Pounds): 139 General Appearance: no apparent distress EENT: normal ENT inspection Neck: normal alignment Cardiovascular: normal rate Respiratory/Chest: decreased breath sounds Abdomen: normal bowel sounds, non tender, soft Extremities: non-tender Jun Mena MD Jul 24, 2019 07:07
[2019-07-24 07:12] LABS: ANION GAP 13 mmol/L (5-15); BLOOD UREA NITROGEN 78 mg/dL (7-18); CALCIUM 9.7 MG/DL (8.5-10.1); CARBON DIOXIDE 31 MMOL/L (21-32); CHLORIDE 102 MMOL/L (98-107); CREATININE 4.1 MG/DL (0.55-1.30); POTASSIUM 3.7 MMOL/L (3.5-5.1); SODIUM 146 MMOL/L (136-145)
--- NOTE | 2019-07-24 07:23 | NUR ---
NURSE NOTES: Received patient from Opal PURVIS in bed resting. Patient is AAO X1, no s/s of pain noted at this time. Noted patient has many wounds all over the body, dressing is intact, repositioned patient. No s/s of acute distress or respiratory distress. Patient is on 2L NC, on G-Tube Nephro running at 38cc/hr. Noted patient has rectal tube with liquefied BM. Patient had dialysis yesterday evening and 1L removed. Bed is in lowest position with bedside rails up x3, brakes engaged for safety and call light within reach. Will continue with the plan of care.
[2019-07-24 08:00] VITALS: BP 131/60
[2019-07-24] MEDS: Lactobacillus-GG tablet GT SCH ×2 (09:15→20:33)
[2019-07-24] MEDS: Heparin 5000 units/ml inj SUBQ SCH ×2 (09:17→20:32)
--- NOTE | 2019-07-24 10:04 | Urology Progress Note ---
Assessment/Plan Status: stable Assessment/Plan: 1. Hematuria, which was previously gross and now microscopic. 2. End-stage renal disease, on hemodialysis. 3. Urinary retention history, now with incontinence. 4. Probable neurogenic bladder. 5. Pyuria. 6. Proteinuria. 7. History of acute kidney injury. 9. Nephrolithiasis. 8. Sepsis? monitor clinically abx as ordered, per ID I+O cath PRN cysto later HD per accelerator systems director f/u on blood cx Subjective Allergies: Coded Allergies: No Known Allergies (Unverified , 06/24/19) Subjective all noted, urinary incontinence, urine reported grossly non-bloody Objective Last 24 Hour Vital Signs Date Time Temp Pulse Resp B/P (MAP) Pulse Ox O2 Delivery O2 Flow Rate FiO2 07/24/19 09:15 61 131/60 07/24/19 09:00 Nasal Cannula 2.0 Nasal Cannula 2.0 07/24/19 08:00 98.8 96 18 131/60 (83) 97 07/24/19 08:00 96 07/24/19 04:00 97.7 93 17 101/57 (72) 98 07/24/19 04:00 92 07/24/19 03:48 Nasal Cannula 2.0 Nasal Cannula 2.0 07/24/19 01:11 91 07/24/19 00:00 98.5 92 18 107/60 (76) 97 07/24/19 00:00 Nasal Cannula 2.0 Nasal Cannula 2.0 07/23/19 21:22 93 159/57 07/23/19 21:00 Nasal Cannula 2.0 Nasal Cannula 2.0 07/23/19 21:00 98 07/23/19 20:00 98.2 93 19 159/57 (91) 98 07/23/19 16:00 97 07/23/19 16:00 97.9 103 18 126/61 (82) 100 07/23/19 12:16 96.7 103 18 124/58 (80) 97 07/23/19 12:00 99 Intake and Output 07/23/19 07/24/19 19:00 07:00 Intake Total 138 ml 440 ml Output Total 130 ml 600 ml Balance 8 ml -160 ml Intake Free Water 100 ml 60 ml Tube Feeding 38 ml Other 380 ml Output Stool Total 130 ml 600 ml # Voids 1 Microbiology Date/Time Source Procedure Growth Status 07/22/19 03:20 Blood Blood Culture - Preliminary NO GROWTH AFTER 48 HOURS Resulted 07/20/19 04:30 Sputum Induced Gram Stain - Final Complete 07/20/19 04:30 Sputum Culture - Final Pseudomonas Aeruginosa Melanie Albicans Usual Respiratory Cristina Complete 07/17/19 07:00 Stool Clostridium difficile Toxin Assay - Final Complete 07/20/19 13:18 Catheter Site Catheter Tip Culture - Preliminary NO GROWTH AFTER 48 HOURS Resulted Current Medications Medications (Trade) Dose Ordered Sig/Joan Route PRN Reason Start Time Stop Time Status Last Admin Dose Admin Acetaminophen (Tylenol) 650 mg Q4H PRN ORAL Mild Pain (Pain Scale 1-3) 07/14/19 14:45 08/13/19 14:44 07/22/19 08:45 Amikacin Protocol (Amikacin pharmacy to dose) 1 ea DAILY PRN MISC . 07/20/19 09:45 08/19/19 09:44 Atorvastatin Calcium (Lipitor) 10 mg QHS GT 07/14/19 21:00 10/12/19 20:59 07/23/19 21:22 Carvedilol (Coreg) 3.125 mg EVERY 12 HOURS ORAL 07/19/19 09:00 08/18/19 08:59 07/24/19 09:15 Chlorhexidine Gluconate (Cari-Hex 2%) 1 applic DAILY@1999 TOPIC 07/15/19 20:00 10/13/19 19:59 07/23/19 21:21 Dextrose (Dextrose 50%) 25 ml Q30M PRN IV Hypoglycemia 07/14/19 14:45 10/12/19 14:44 Dextrose (Dextrose 50%) 50 ml Q30M PRN IV Hypoglycemia 07/14/19 14:45 10/12/19 14:44 Epoetin Dion (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)) 4,000 unit MON-MON-MON SUBQ 07/24/19 21:00 10/22/19 20:59 Heparin Sodium (Porcine) (Heparin 5000 units/ml) 5,000 units EVERY 12 HOURS SUBQ 07/14/19 21:00 08/28/19 20:59 07/24/19 09:17 Hydralazine HCl (Apresoline) 10 mg Q4H PRN IV For High Blood Pressure 07/14/19 15:30 10/12/19 15:29 Lactobacillus Acidophilus (Culturelle) 1 tab Q12HR GT 07/15/19 12:14 10/13/19 12:13 07/24/19 09:15 Loperamide HCl (Imodium) 2 mg Q6H PRN NG Diarrhea 07/18/19 09:00 08/17/19 08:59 07/18/19 10:37 Ondansetron HCl (Zofran) 4 mg Q6H PRN IVP Nausea & Vomiting 07/14/19 14:45 08/13/19 14:44 Piperacillin Sod/ Tazobactam Sod 3.375 gm/Dextrose 100 ml @ 25 mls/hr EVERY 12 HOURS IVPB 07/23/19 21:00 07/28/19 20:59 07/24/19 09:17 Vancomycin HCl (Vanco rx to dose) 1 ea DAILY PRN MISC Per rx protocol 07/14/19 14:45 08/13/19 14:44 Laboratory Tests 07/24/19 06:11: White Blood Count 14.8H, Red Blood Count 2.71L, Hemoglobin 8.1L, Hematocrit 25.2L, Mean Corpuscular Volume 93, Mean Corpuscular Hemoglobin 30.0, Mean Corpuscular Hemoglobin Concent 32.3, Red Cell Distribution Width 13.6, Platelet Count 353, Mean Platelet Volume 7.6, Neutrophils (%) (Auto) 76.8H, Lymphocytes ( %) (Auto) 14.4L, Monocytes (%) (Auto) 7.3, Eosinophils (%) (Auto) 1.0, Basophils (%) (Auto) 0.4, Sodium Level 146H, Potassium Level 3.7, Chloride Level 102, Carbon Dioxide Level 31, Anion Gap 13, Blood Urea Nitrogen 78H, Creatinine 4.1H, Estimat Glomerular Filtration Rate 12.4, Glucose Level 141H, Calcium Level 9.7 Height (Feet): 5 Height (Inches): 3.00 Weight (Pounds): [address] A/P (07/18) noted Omar Mckoy MD Jul 24, 2019 10:04
--- NOTE | 2019-07-24 10:53 | Surgery Progress Note ---
Surgery Progress Note Subjective Procedure Performed right femoral temporary HD catheter insertion Additional Comments no acute events comfortable line okay no bleeding Objective Last 24 Hour Vital Signs Date Time Temp Pulse Resp B/P (MAP) Pulse Ox O2 Delivery O2 Flow Rate FiO2 07/24/19 09:15 61 131/60 07/24/19 09:00 Nasal Cannula 2.0 Nasal Cannula 2.0 07/24/19 08:00 98.8 96 18 131/60 (83) 97 07/24/19 08:00 96 07/24/19 04:00 97.7 93 17 101/57 (72) 98 07/24/19 04:00 92 07/24/19 03:48 Nasal Cannula 2.0 Nasal Cannula 2.0 07/24/19 01:11 91 07/24/19 00:00 98.5 92 18 107/60 (76) 97 07/24/19 00:00 Nasal Cannula 2.0 Nasal Cannula 2.0 07/23/19 21:22 93 159/57 07/23/19 21:00 Nasal Cannula 2.0 Nasal Cannula 2.0 07/23/19 21:00 98 07/23/19 20:00 98.2 93 19 159/57 (91) 98 07/23/19 16:00 97 07/23/19 16:00 97.9 103 18 126/61 (82) 100 07/23/19 12:16 96.7 103 18 124/58 (80) 97 07/23/19 12:00 99 I&O Intake and Output 07/23/19 07/24/19 19:00 07:00 Intake Total 138 ml 440 ml Output Total 130 ml 600 ml Balance 8 ml -160 ml Intake Free Water 100 ml 60 ml Tube Feeding 38 ml Other 380 ml Output Stool Total 130 ml 600 ml # Voids 1 Dressing: dry Wound: clean Cardiovascular: RSR Respiratory: clear Abdomen: soft, non-tender, present bowel sounds Extremities: no tenderness, no cyanosis Laboratory Tests Test 07/24/19 06:11 White Blood Count 14.8 K/UL (4.8-10.8) H Red Blood Count 2.71 M/UL (4.20-5.40) L Hemoglobin 8.1 G/DL (12.0-16.0) L Hematocrit 25.2 % (37.0-47.0) L Mean Corpuscular Volume 93 FL (80-99) Mean Corpuscular Hemoglobin 30.0 PG (27.0-31.0) Mean Corpuscular Hemoglobin Concent 32.3 G/DL (32.0-36.0) Red Cell Distribution Width 13.6 % (11.6-14.8) Platelet Count 353 K/UL (150-450) Mean Platelet Volume 7.6 FL (6.5-10.1) Neutrophils (%) (Auto) 76.8 % (45.0-75.0) H Lymphocytes (%) (Auto) 14.4 % (20.0-45.0) L Monocytes (%) (Auto) 7.3 % (1.0-10.0) Eosinophils (%) (Auto) 1.0 % (0.0-3.0) Basophils (%) (Auto) 0.4 % (0.0-2.0) Sodium Level 146 MMOL/L (136-145) H Potassium Level 3.7 MMOL/L (3.5-5.1) Chloride Level 102 MMOL/L (98-107) Carbon Dioxide Level 31 MMOL/L (21-32) Anion Gap 13 mmol/L (5-15) Blood Urea Nitrogen 78 mg/dL (7-18) H Creatinine 4.1 MG/DL (0.55-1.30) H Estimat Glomerular Filtration Rate 12.4 mL/min (>60) Glucose Level 141 MG/DL (74-106) H Calcium Level 9.7 MG/DL (8.5-10.1) Plan Problems: (1) Decubitus skin ulcer Assessment & Plan: Pt presented on admission with multiple pressure injuries. Unstageable pressure injury R shoulder(L)3.8cm x (W)3.3cm. Base of wound is 100 % necrotic and dry. Marginal erythema along borders. No erythema or induration periwound. Reabsorbed DTPI R Humerus. Base of injury has dry peeling brown skin with underlying dry pink epithelial. R elbow pressure injury has resolved. Full thickness pressure injury R hip (L)7cm x (W)13.1cm. Base of wound is 70% fibrinous slough,10% necrotic ,20% moist pink granulation. Edges are macerated.Small amt seropurulent non-odorous exudate noted. NO erythema , induration or elevation in skin temp periwound. Opened DTPI Sacrum(L)9cm x (W)15cm. Base of wound is purple,indurated with an open wound at sacrococcygeal which has 100% slough(L)1.6cm x (W)1cm. Surrounding Skin hypopigmentation with areas of excoriation extending into perineum and perianal area. Unstageable pressure injury lateral R malleolus(L)2.5cm x (W)3cm. Base of wound is 100% dry necrosis. Edges adherent to base of wound. No erythema induration or fluctuance periwound. Reabsorbing DTPI R heel. Base of Heel is boggy,non-blanching erythema with dry peeling brown skin along edges.(L)4.2cm x (W)6cm. Resolving DTPI distal/lateral R foot. Stable dry brown eschar without fluctuance or induration(L)1cm x (W)1.5cm. Resolving DTPI Lateral R 5th metatarsal.Base of injury is dry,brown without fluctuance or induration.(L)0.6cm x (W)1cm Unstageable pressure injury L Hallux(L)4cm x (W)2.7cm. Base of wound is 80% necrotic,20% slough with marginal erythema along borders. No odor or exudate noted. DTPI L Heel. Base of injury maroon and fluctuant. Periwound is boggy but blanchable(L)5.5cm x (W)6.5cm. Tx.Plan: Cleanse R shoulder with Saline. Apply Therahoney. Apply Cavilon Periwound. Cover with Optifoam drsg. Change every 3 days and prn. Cleanse R hip with Saline. Apply Therahoney.Apply Moisture Barrier Periwound. Cover with Optifoam drsg. Change Daily and prn. Cleanse Sacrum with Saline. Apply Therahoney. Apply Moisture Barrier Paste periwound. Cover with Optifoam drsg. Change every 3 days and prn. Apply Moisture Barrier Paste to perineum and perianal areas with each incontinence care. Apply Betadine to R heel,Distal/lateral R foot ,R5th metatarsal. Cover with Optifoam drsg. Change every 3 days and prn. Apply Betadine to L hallux,and L heel. Cover each site with Optifoam drsg. Change every 3 days and prn. Reposition at least every 2hours or as tolerated. Place pillow between knees. off-load heels with pillow. (2) Fever Assessment & Plan: covid negative discussed with pcp and nephro may need to remove catheter as possible etiology covid negative c diff negative blood cultures from line. if positive will remove after next HD then line holiday blood cx with gram neg d/c line Line removed see note Line holiday Antibiotics as per infectious disease (3) Protein calorie malnutrition Assessment & Plan: DAILY ESTIMATED NEEDS: Needs based on Wounds, HD 51.8kg 30-35 kcals/kg 1850-1014 total kcals 1.25-1.8 g protein/kg 65-93 g total protein Fluids per MD mL/kg . total fluid mLs NUTRITION DIAGNOSIS: * Increased kcal and prot needs r/t wound healing and renal failure as evidenced by w/ multiple pressure injuries, pending re-evaluation, s/p recent PermCath placement, HD dependent. * Swallowing difficulty R/T dysphagia as evidenced by s/p recent PEG placement, on GT feeding. CURRENT TF:Jevity 1.2 @ 50ml/hr x 24 hrs ENTERAL NUTRITION RECOMMENDATIONS: Nepro @ 38ml/hr x 24 hrs to provide 912ml, 1642kcal, 74g prot, 663ml free water - Rec TF change to Nepro- HD dependent - Initiate Nepro @ 28ml/hr x 6 hrs, increase to goal as tolerated. - HOB over 30 degrees/ water flush per MD ADDITIONAL RECOMMENDATIONS: 1) Calibrated bedscale wt 2) Wound Care: add Nephrovite x 1 add Saw 1ptk BID when TF well tolerated @ goal 3) Check phos and mag levels 4) Monitor BGs, need for nISS 5) Add probiotics: h/o LBM prev adm, prolonged use of abx (4) Pressure ulcer Anshul Nava Jul 24, 2019 10:53
--- NOTE | 2019-07-24 11:32 | General Progress Note ---
Assessment/Plan Status: stable Assessment/Plan: 89-year-old female with PMH of acute renal failure, s/p right chest wall permacath on HD, dysphasia s/p PEG, multiple pressure wounds, HTN, h/o AMS was recently discharged from this facility for KAREN/rhabdo, unwitnessed fall, was sent to correction and returned here due to fevers. Patient was admitted for persistent fevers and for sepsis/COVID 19 rule out. ED course: BMP 8000, troponin 0 0.347, patient given for septic work-up and will be admitted for further treatment. #Sepsis #Pseudomonas bacteremia #infected Permacath #Diarrhea #leukocytosis #ESRD on HD -continue inpatient level of care -CXR w/mild interstitial edema -COVID-19 NEGATIVE, Droplet precautions d/c -c diff negative -Imodium prn -CT abd/pelvis results reviewed -Permacath removed 07/19 -Line Cx negative -s/p right femoral HD cath placement on 07/22 -ID following: cont. amikacin, Zosyn, IV vanco -Nephro following: HD per nephro #Anemia of chronic dx -check iron panel, ferritin-> ferritin supersaturated -epogen 4K TIW #Hypernatremia - downtrending #Hyperkalemia - resolved #Hypokalemia - resolved -potassium replaced, ctm, replace PRN -FWF -Nephro following #HTN #elevated troponin #BNP elevated #Sinus tachycardia - resolved -trops stable 0.254, 0.240, 0.248 -likely due to demand ischemia and ESRD -ASA, statin -cont. lasix 80 IV daily, will change to PO on d/c -hydralazine PRN for SBP >160 -cont Carvedilol 3.25 mg BID -Cardio following, reccs appreciated #Hematuria #Possible Urinary retention. #Possible neurogenic bladder. -UA w/ evidence of RBCs, 4+ blood -Urology recs appreciated #Dysphagia -s/p PEG -tolerating TF -Dietary and GI following, recs appreciated -d/w ST, pt currently unable to manage PO, recommends pt to f/u w/ST as o/p for o/p video swallow once more stable #Pressure wounds -Cont. wound care DVT ppx - heparin sc Time spent on encounter: 35 mins, >50% on counseling, coordination of care. Subjective ROS Limited/Unobtainable: Yes - pt aphasic Allergies: Coded Allergies: No Known Allergies (Unverified , 06/24/19) Subjective F/u for sepsis, HCAP, fevers. COVID NEGATIVE. Acute renal failure. No further fevers. HD line placed in Right femoral, tolerated HD yesterday. Pt non-verbal at this time, unable to obtain ROS. Appears comfortable. Objective Last 24 Hour Vital Signs Date Time Temp Pulse Resp B/P (MAP) Pulse Ox O2 Delivery O2 Flow Rate FiO2 07/24/19 09:15 61 131/60 07/24/19 09:00 Nasal Cannula 2.0 Nasal Cannula 2.0 07/24/19 08:00 98.8 96 18 131/60 (83) 97 07/24/19 08:00 96 07/24/19 04:00 97.7 93 17 101/57 (72) 98 07/24/19 04:00 92 07/24/19 03:48 Nasal Cannula 2.0 Nasal Cannula 2.0 07/24/19 01:11 91 07/24/19 00:00 98.5 92 18 107/60 (76) 97 07/24/19 00:00 Nasal Cannula 2.0 Nasal Cannula 2.0 07/23/19 21:22 93 159/57 07/23/19 21:00 Nasal Cannula 2.0 Nasal Cannula 2.0 07/23/19 21:00 98 07/23/19 20:00 98.2 93 19 159/57 (91) 98 07/23/19 16:00 97 07/23/19 16:00 97.9 103 18 126/61 (82) 100 07/23/19 12:16 96.7 103 18 124/58 (80) 97 07/23/19 12:00 99 Intake and Output 07/23/19 07/24/19 19:00 07:00 Intake Total 138 ml 440 ml Output Total 130 ml 600 ml Balance 8 ml -160 ml Intake Free Water 100 ml 60 ml Tube Feeding 38 ml Other 380 ml Output Stool Total 130 ml 600 ml # Voids 1 Laboratory Tests 07/24/19 06:11: White Blood Count 14.8H, Red Blood Count 2.71L, Hemoglobin 8.1L, Hematocrit 25.2L, Mean Corpuscular Volume 93, Mean Corpuscular Hemoglobin 30.0, Mean Corpuscular Hemoglobin Concent 32.3, Red Cell Distribution Width 13.6, Platelet Count 353, Mean Platelet Volume 7.6, Neutrophils (%) (Auto) 76.8H, Lymphocytes ( %) (Auto) 14.4L, Monocytes (%) (Auto) 7.3, Eosinophils (%) (Auto) 1.0, Basophils (%) (Auto) 0.4, Sodium Level 146H, Potassium Level 3.7, Chloride Level 102, Carbon Dioxide Level 31, Anion Gap 13, Blood Urea Nitrogen 78H, Creatinine 4.1H, Estimat Glomerular Filtration Rate 12.4, Glucose Level 141H, Calcium Level 9.7 Height (Feet): 5 Height (Inches): 3.00 Weight (Pounds): 139 Objective General Appearance: alert, awake, in NAD, AOx1 at b/l HEENT: NCAT, EOMi Cardiovascular: normal rate, regular rhythm Respiratory/Chest: lungs clear, normal breath sounds Abdomen: non tender, soft, +PEG c/d/i Ext: contracted b/l, no edema, fight femoral line c/d/i Lisa Brewster M.D. Jul 24, 2019 11:32
[2019-07-24 12:00] VITALS: BP 120/76
--- NOTE | 2019-07-24 12:54 | Nephrology Progress Note ---
Assessment/Plan Plan #Acute renal failure recent started on HD in 06/2018- #Sepsis #Dementia #HTN #elevated troponin #Dysphagia s/p PEG #urinary retention - permacath removed 07/19 - WBC downtrending --> temp HD catheter 07/22 --> next HD tomorrow on low sodium bath - monitor BMP closeric - agree with FWF 100 q6 - continue lasix 80 IV daily -> switch to oral on DC - cardiology eval - monitor UOP - urology eval - continue antibiotics per ID - coreg 3.125mg BID - follow repeat blood cx- growing pseudomonas - check iron panel, ferritin-> ferritin supersaturated - continue epogen 4K TIW - monitor BMP, mag and phos daily for now Subjective Subjective blood cx growing pseudomonas temp HD catheter 07/22 s/p HD yesterday permcath removed 07/19 BP stable breathing stable on NC persistent leukoocytosis noted sodium elevated Objective Objective Last 24 Hour Vital Signs Date Time Temp Pulse Resp B/P (MAP) Pulse Ox O2 Delivery O2 Flow Rate FiO2 07/24/19 12:00 98 07/24/19 12:00 98.8 98 20 120/76 (91) 96 07/24/19 09:15 61 131/60 07/24/19 09:00 Nasal Cannula 2.0 Nasal Cannula 2.0 07/24/19 08:00 98.8 96 18 131/60 (83) 97 07/24/19 08:00 96 07/24/19 04:00 97.7 93 17 101/57 (72) 98 07/24/19 04:00 92 07/24/19 03:48 Nasal Cannula 2.0 Nasal Cannula 2.0 07/24/19 01:11 91 07/24/19 00:00 98.5 92 18 107/60 (76) 97 07/24/19 00:00 Nasal Cannula 2.0 Nasal Cannula 2.0 07/23/19 21:22 93 159/57 07/23/19 21:00 Nasal Cannula 2.0 Nasal Cannula 2.0 07/23/19 21:00 98 07/23/19 20:00 98.2 93 19 159/57 (91) 98 07/23/19 16:00 97 07/23/19 16:00 97.9 103 18 126/61 (82) 100 Intake and Output 07/23/19 07/24/19 19:00 07:00 Intake Total 138 ml 440 ml Output Total 130 ml 600 ml Balance 8 ml -160 ml Intake Free Water 100 ml 60 ml Tube Feeding 38 ml Other 380 ml Output Stool Total 130 ml 600 ml # Voids 1 Laboratory Tests 07/24/19 06:11: White Blood Count 14.8H, Red Blood Count 2.71L, Hemoglobin 8.1L, Hematocrit 25.2L, Mean Corpuscular Volume 93, Mean Corpuscular Hemoglobin 30.0, Mean Corpuscular Hemoglobin Concent 32.3, Red Cell Distribution Width 13.6, Platelet Count 353, Mean Platelet Volume 7.6, Neutrophils (%) (Auto) 76.8H, Lymphocytes ( %) (Auto) 14.4L, Monocytes (%) (Auto) 7.3, Eosinophils (%) (Auto) 1.0, Basophils (%) (Auto) 0.4, Sodium Level 146H, Potassium Level 3.7, Chloride Level 102, Carbon Dioxide Level 31, Anion Gap 13, Blood Urea Nitrogen 78H, Creatinine 4.1H, Estimat Glomerular Filtration Rate 12.4, Glucose Level 141H, Calcium Level 9.7 07/24/19 12:00: Random Amikacin Level [Pending], Random Vancomycin Level [Pending] Height (Feet): 5 Height (Inches): 3.00 Weight (Pounds): 139 Objective General: NAD, A&O x 1, self only HEENT: NCAT, EOMi, PEERLA, nares patent and no symmetrical, no tonsillar exudates, mucous membranes moist CV: RRR, no murmurs, rubs, or gallops Pulm: CTAB, No wheezes, rhonchi, or rales, no accessory muscle usage or conversational dyspnea GI: Soft, nontender, nondistended, bowel sounds present, PEG tube in place, C/D/ I Neuro: CN 2-12 grossly intact bilaterally, no focal signs. Ext: No lower extremity edema bilaterally, LE contracted bilaterally Skin: Multiple pressure ulcers noted on hip/heels Lymph: No lymphadenopathy in upper extremity and lower extremity Rory Oconnor M.D. Jul 24, 2019 12:54
[2019-07-24] MEDS ORDERED: Zosyn 2.25 gm in D5W 55ml IV SCH (14:00)
--- NOTE | 2019-07-24 14:04 | NUR ---
CASE MANAGEMENT:REVIEW 07/24/19 SI: SEPSIS D/T BACTEREMIA INFECTED PERMCATH. COVID 19 NOT DETECTED 98.8 98 20 120/76 96% ON 2L/NC WBC+14.8 H/H-8.1/25.2 BUN+78 CR+4.1 IS: IV ZOSYN Q12 IV VANCOMYCIN X1 COREG GT Q12 EPOETIN SQ MWF LACTOBACILLUS GT Q12 : NOW ON TELEMETRY [facility]: [facility] RT FEMORAL TEMPORARY HD CATHETER IN PLACE NEXT DIALYSIS 07/25/19
--- NOTE | 2019-07-24 14:21 | NUR ---
HAND-OFF: Report given to Marlee PURVIS. Patient is in stable condition.
--- NOTE | 2019-07-24 14:40 | NUR ---
NURSE NOTES: Patient received from Nahomi Hernandes. Patient stable AOx1 with no complaints and no s/sx of distress. RR even and unlabored on 2L NC. Feeding infusing at 38mL/hr. Rectal tube appears to be in place. Aman cath dressing dry and intact. Side rails upx2, call light within reach, bed low and locked. Will continue to monitor.
[2019-07-24 16:00] VITALS: BP 113/53
[2019-07-24] MEDS ORDERED: Vancomycin 1gm in D5W 275ml IVPB SCH (16:00)
--- NOTE | 2019-07-24 19:26 | NUR ---
HAND-OFF: Report given to Jeanna Collier RN. Patient stable. Plan of care endorsed. Patient to be dialyzed tomorrow. Spoke with Dialysis nurse and is aware that pt is due for dialysis tomorrow.
--- NOTE | 2019-07-24 19:42 | NUR ---
NURSE NOTES: Received report from HYUN Whalen. Patient is awake, alert and oriented x 1. On feeding tube-nephro 38cc/hour. Patient connected to nasal cannula at 2lpm via nasal cannula, breathing unlabored and even, no respiratory distress reported. On Sinus rhythm. Patient has rectal tube, no output noted at this time. IV site on left G-22 saline lock, that is intact and patent. Patient has schedule routine hemodialysis tomorrow. Safety measures in placed. Bed in low and locked position. Side rails up x 2, bed alarm is on. Will continue plan of care.
[2019-07-24 20:00] VITALS: BP 122/66
[2019-07-24] MEDS: Dyna-Hex 2% Top Sol 2oz TOPIC SCH (20:31)
[2019-07-24] MEDS: Piperacillin/Tazobactam 3.375 GM in D5W 110 ML IVPB SCH (20:34)
[2019-07-24] MEDS: Epoetin Alfa-EPBX(ESRD on dialysis)4000 units/ml vial SUBQ SCH (20:35)
--- NOTE | 2019-07-24 22:26 | Neurology Progress Note ---
Interim History Interim History ROS Limited/Unobtainable: Yes - pt aphasic Interim History stable today Objective Physical Exam Last Vital Signs Date Time Temp Pulse Resp B/P (MAP) Pulse Ox O2 Delivery O2 Flow Rate FiO2 07/24/19 20:33 97 122/66 07/24/19 20:00 97.7 20 97 07/24/19 09:00 Nasal Cannula 2.0 Nasal Cannula 2.0 Laboratory Tests Test 07/24/19 06:11 07/24/19 12:00 07/24/19 15:30 White Blood Count 14.8 K/UL (4.8-10.8) H Red Blood Count 2.71 M/UL (4.20-5.40) L Hemoglobin 8.1 G/DL (12.0-16.0) L Hematocrit 25.2 % (37.0-47.0) L Mean Corpuscular Volume 93 FL (80-99) Mean Corpuscular Hemoglobin 30.0 PG (27.0-31.0) Mean Corpuscular Hemoglobin Concent 32.3 G/DL (32.0-36.0) Red Cell Distribution Width 13.6 % (11.6-14.8) Platelet Count 353 K/UL (150-450) Mean Platelet Volume 7.6 FL (6.5-10.1) Neutrophils (%) (Auto) 76.8 % (45.0-75.0) H Lymphocytes (%) (Auto) 14.4 % (20.0-45.0) L Monocytes (%) (Auto) 7.3 % (1.0-10.0) Eosinophils (%) (Auto) 1.0 % (0.0-3.0) Basophils (%) (Auto) 0.4 % (0.0-2.0) Sodium Level 146 MMOL/L (136-145) H Potassium Level 3.7 MMOL/L (3.5-5.1) Chloride Level 102 MMOL/L (98-107) Carbon Dioxide Level 31 MMOL/L (21-32) Anion Gap 13 mmol/L (5-15) Blood Urea Nitrogen 78 mg/dL (7-18) H Creatinine 4.1 MG/DL (0.55-1.30) H Estimat Glomerular Filtration Rate 12.4 mL/min (>60) Glucose Level 141 MG/DL (74-106) H Calcium Level 9.7 MG/DL (8.5-10.1) Random Amikacin Level Pending Random Vancomycin Level 12.8 ug/mL Stool Occult Blood Pending Head: normocophalic Neck: no rigidity EENT: benign Neurologic Exam Mental Status: awake Cranial Nerves III, IV, : PERRLA Objective Wakes up, tracks with eyes, tell me her name, withdraws all 4 Impression/Recommendations Problems: (1) Decubitus skin ulcer (2) Fever (3) Rhabdomyolysis (4) Elevated troponin (5) KAREN (acute kidney injury) (6) Fever (7) Elevated brain natriuretic peptide (BNP) level (8) ESRD (end stage renal disease) on dialysis (9) ESRD (end stage renal disease) on dialysis (10) Pressure ulcer (11) Protein calorie malnutrition (12) Dysphagia Status: stable Diagnostic Impression Acute encephalopathy, improved baseline dementia Sepsis Monitor neuro exam for improvement cont atb neg covid Delirium precautions Sushil Stevenson MD Jul 24, 2019 22:26
[2019-07-25] VITALS: BP 110/81
[2019-07-25 04:00] VITALS: BP 123/69
[2019-07-25 07:24] LABS: BASOPHILS % (AUTO) 0.8 % (0.0-2.0); EOSINOPHILS % (AUTO) 0.8 % (0.0-3.0); HEMATOCRIT 25.9 % (37.0-47.0); HEMOGLOBIN 8.6 G/DL (12.0-16.0); LYMPHOCYTES % (AUTO) 18.7 % (20.0-45.0); MEAN CORPUSCULAR VOLUME 92 FL (80-99); MONOCYTES % (AUTO) 6.7 % (1.0-10.0); PLATELET COUNT 363 K/UL (150-450); RED CELL DISTRIBUTION WIDTH 13.8 % (11.6-14.8)
[2019-07-25 07:30] LABS: ANION GAP 14 mmol/L (5-15); BLOOD UREA NITROGEN 108 mg/dL (7-18); CALCIUM 9.5 MG/DL (8.5-10.1); CARBON DIOXIDE 28 MMOL/L (21-32); CHLORIDE 101 MMOL/L (98-107); CREATININE 5.2 MG/DL (0.55-1.30); POTASSIUM 3.7 MMOL/L (3.5-5.1); SODIUM 143 MMOL/L (136-145)
--- NOTE | 2019-07-25 07:45 | NUR ---
HAND-OFF: Report given to HYUN Argueta. Patient is in stable condition, has a schedule routine dialysis today. Plan of care endorsed.
[2019-07-25 08:00] VITALS: BP 110/50
[2019-07-25] MEDS: Piperacillin/Tazobactam 3.375 GM in D5W 110 ML IVPB SCH ×2 (09:53→20:50)
[2019-07-25] MEDS: Lactobacillus-GG tablet GT SCH ×2 (09:55→20:51)
[2019-07-25] MEDS: Heparin 5000 units/ml inj SUBQ SCH ×2 (09:55→20:22)
--- NOTE | 2019-07-25 09:59 | General Progress Note ---
Assessment/Plan Status: stable Assessment/Plan: 89-year-old female with PMH of acute renal failure, s/p right chest wall permacath on HD, dysphasia s/p PEG, multiple pressure wounds, HTN, h/o AMS was recently discharged from this facility for KAREN/rhabdo, unwitnessed fall, was sent to correction and returned here due to fevers. Patient was admitted for persistent fevers and for sepsis/COVID 19 rule out. ED course: BMP 8000, troponin 0 0.347, patient given for septic work-up and will be admitted for further treatment. #Sepsis #Pseudomonas bacteremia #Pseudomonas PNA #infected Permacath #Diarrhea - improved #leukocytosis - downtrending #ESRD on HD -continue inpatient level of care -CXR w/mild interstitial edema -COVID-19 NEGATIVE, Droplet precautions d/c -c diff negative -Imodium prn -CT abd/pelvis results reviewed -Permacath removed 07/19 -Line Cx negative -s/p right femoral HD cath placement on 07/22 -ID following: cont. amikacin, Zosyn, IV vanco -Nephro following: HD per nephro, plan for HD today, permacath tomorrow #Anemia of chronic dx -check iron panel, ferritin-> ferritin supersaturated -epogen 4K TIW #Hypernatremia - downtrending #Hyperkalemia - resolved #Hypokalemia - resolved -potassium replaced, ctm, replace PRN -FWF -Nephro following #HTN #elevated troponin #BNP elevated #Sinus tachycardia - resolved -trops stable 0.254, 0.240, 0.248 -likely due to demand ischemia and ESRD -ASA, statin -cont. lasix 80 IV daily, will change to PO on d/c -hydralazine PRN for SBP >160 -cont Carvedilol 3.25 mg BID -Cardio following, reccs appreciated #Hematuria #Possible Urinary retention. #Possible neurogenic bladder. -UA w/ evidence of RBCs, 4+ blood -Urology recs appreciated #Dysphagia -s/p PEG -tolerating TF -Dietary and GI following, recs appreciated -d/w ST, pt currently unable to manage PO, recommends pt to f/u w/ST as o/p for o/p video swallow once more stable #Dementia -stable -neuro following, appreciate recs #Pressure wounds -Cont. wound care DVT ppx - heparin sc Time spent on encounter: 25 mins, >50% on counseling, coordination of care. Subjective Allergies: Coded Allergies: No Known Allergies (Unverified , 06/24/19) Subjective F/u for sepsis, HCAP, fevers. COVID NEGATIVE. Acute renal failure. No further fevers. HD line placed in Right femoral on 07/22. Pt non-verbal at this time, unable to obtain ROS. Appears comfortable. Objective Last 24 Hour Vital Signs Date Time Temp Pulse Resp B/P (MAP) Pulse Ox O2 Delivery O2 Flow Rate FiO2 07/25/19 09:00 100 110/50 07/25/19 08:42 Nasal Cannula 2.0 Nasal Cannula 2.0 07/25/19 08:00 100 07/25/19 08:00 98.3 81 19 110/50 (70) 98 07/25/19 04:00 98.0 71 18 123/69 (87) 98 07/25/19 04:00 113 07/25/19 00:00 117 07/25/19 00:00 96.8 79 18 110/81 (91) 97 07/24/19 21:00 Nasal Cannula 2.0 Nasal Cannula 2.0 07/24/19 20:33 97 122/66 07/24/19 20:00 97.7 97 20 122/66 (84) 97 07/24/19 20:00 99 07/24/19 16:00 96.8 62 19 113/53 (73) 96 07/24/19 16:00 97 07/24/19 12:00 98 07/24/19 12:00 98.8 98 20 120/76 (91) 96 Intake and Output 07/24/19 07/25/19 19:00 07:00 Intake Total 178 ml 518 ml Output Total 1700 ml Balance -1522 ml 518 ml Intake Oral 140 ml Free Water 100 ml Tube Feeding 38 ml 418 ml Output Urine Total 1700 ml # Voids 3 Laboratory Tests 07/24/19 12:00: Random Amikacin Level [Pending], Random Vancomycin Level 12.8 07/24/19 15:30: Stool Occult Blood Negative 07/25/19 06:18: White Blood Count 13.0H, Red Blood Count 2.80L, Hemoglobin 8.6L, Hematocrit 25.9L, Mean Corpuscular Volume 92, Mean Corpuscular Hemoglobin 30.5, Mean Corpuscular Hemoglobin Concent 33.0, Red Cell Distribution Width 13.8, Platelet Count 363, Mean Platelet Volume 7.0, Neutrophils (%) (Auto) 73.0, Lymphocytes (% ) (Auto) 18.7L, Monocytes (%) (Auto) 6.7, Eosinophils (%) (Auto) 0.8, Basophils (%) (Auto) 0.8, Sodium Level 143, Potassium Level 3.7, Chloride Level 101, Carbon Dioxide Level 28, Anion Gap 14, Blood Urea Nitrogen 108H, Creatinine 5.2H , Estimat Glomerular Filtration Rate 9.5, Glucose Level 145H, Calcium Level 9.5 Height (Feet): 5 Height (Inches): 3.00 Weight (Pounds): 139 Objective General Appearance: alert, awake, in NAD, AOx1 at b/l HEENT: NCAT, EOMi Cardiovascular: normal rate, regular rhythm Respiratory/Chest: lungs clear, normal breath sounds Abdomen: non tender, soft, +PEG c/d/i Ext: contracted b/l, no edema, fight femoral line c/d/i Lisa Brewster M.D. Jul 25, 2019 09:59
--- NOTE | 2019-07-25 10:53 | NUR ---
CASE MANAGEMENT:REVIEW 07/25/19 SI: SEPSIS D/T BACTEREMIA INFECTED PERMCATH. COVID 19 NOT DETECTED 98.3 81 19 110/50 98% ON 2L/NC BUN+108 CR+5.2 IS: IV ZOSYN Q12 COREG GT Q12 EPOETIN SQ MWF LACTOBACILLUS GT Q12 HEPARIN SQ Q12 : NOW ON TELEMETRY DCP: FROM [facility] PLAN: RT FEMORAL TEMPORARY HD CATHETER IN PLACE NEXT DIALYSIS 07/25/19
--- NOTE | 2019-07-25 11:00 | Urology Progress Note ---
Assessment/Plan Status: stable Assessment/Plan: 1. Hematuria, which was previously gross and now microscopic. 2. End-stage renal disease, on hemodialysis. 3. Urinary retention history, now with incontinence. 4. Probable neurogenic bladder. 5. Pyuria. 6. Proteinuria. 7. History of acute kidney injury. 9. Nephrolithiasis. 8. Sepsis? monitor clinically abx as ordered, per ID I+O cath PRN cysto later HD per neuropsychology director f/u on blood cx Subjective Allergies: Coded Allergies: No Known Allergies (Unverified , 06/24/19) Subjective all noted, urinary incontinence, urine reported grossly non-bloody Objective Last 24 Hour Vital Signs Date Time Temp Pulse Resp B/P (MAP) Pulse Ox O2 Delivery O2 Flow Rate FiO2 07/25/19 09:00 100 110/50 07/25/19 08:42 Nasal Cannula 2.0 Nasal Cannula 2.0 07/25/19 08:00 100 07/25/19 08:00 98.3 81 19 110/50 (70) 98 07/25/19 04:00 98.0 71 18 123/69 (87) 98 07/25/19 04:00 113 07/25/19 00:00 117 07/25/19 00:00 96.8 79 18 110/81 (91) 97 07/24/19 21:00 Nasal Cannula 2.0 Nasal Cannula 2.0 07/24/19 20:33 97 122/66 07/24/19 20:00 97.7 97 20 122/66 (84) 97 07/24/19 20:00 99 07/24/19 16:00 96.8 62 19 113/53 (73) 96 07/24/19 16:00 97 07/24/19 12:00 98 07/24/19 12:00 98.8 98 20 120/76 (91) 96 Intake and Output 07/24/19 07/25/19 19:00 07:00 Intake Total 178 ml 518 ml Output Total 1700 ml Balance -1522 ml 518 ml Intake Oral 140 ml Free Water 100 ml Tube Feeding 38 ml 418 ml Output Urine Total 1700 ml # Voids 3 Microbiology Date/Time Source Procedure Growth Status 07/22/19 03:20 Blood Blood Culture - Preliminary NO GROWTH AFTER 72 HOURS Resulted 07/20/19 04:30 Sputum Induced Gram Stain - Final Complete 07/20/19 04:30 Sputum Culture - Final Pseudomonas Aeruginosa Melanie Albicans Usual Respiratory Cristina Complete 07/17/19 07:00 Stool Clostridium difficile Toxin Assay - Final Complete 07/20/19 13:18 Catheter Site Catheter Tip Culture - Final NO GROWTH AFTER 4 DAYS Complete Current Medications Medications (Trade) Dose Ordered Sig/Joan Route PRN Reason Start Time Stop Time Status Last Admin Dose Admin Acetaminophen (Tylenol) 650 mg Q4H PRN ORAL Mild Pain (Pain Scale 1-3) 07/14/19 14:45 08/13/19 14:44 07/22/19 08:45 Amikacin Protocol (Amikacin pharmacy to dose) 1 ea DAILY PRN MISC . 07/20/19 09:45 08/19/19 09:44 Atorvastatin Calcium (Lipitor) 10 mg QHS GT 07/14/19 21:00 10/12/19 20:59 07/24/19 20:33 Carvedilol (Coreg) 3.125 mg EVERY 12 HOURS ORAL 07/19/19 09:00 08/18/19 08:59 07/24/19 20:33 Chlorhexidine Gluconate (Cari-Hex 2%) 1 applic DAILY@2000 TOPIC 07/15/19 20:00 10/13/19 19:59 07/24/19 20:31 Dextrose (Dextrose 50%) 25 ml Q30M PRN IV Hypoglycemia 07/14/19 14:45 10/12/19 14:44 Dextrose (Dextrose 50%) 50 ml Q30M PRN IV Hypoglycemia 07/14/19 14:45 10/12/19 14:44 Epoetin Dion (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)) 4,000 unit MON-MON-MON SUBQ 07/24/19 21:00 10/22/19 20:59 07/24/19 20:35 Heparin Sodium (Porcine) (Heparin 5000 units/ml) 5,000 units EVERY 12 HOURS SUBQ 07/14/19 21:00 08/28/19 20:59 07/25/19 09:55 Hydralazine HCl (Apresoline) 10 mg Q4H PRN IV For High Blood Pressure 07/14/19 15:30 10/12/19 15:29 Lactobacillus Acidophilus (Culturelle) 1 tab Q12HR GT 07/15/19 12:14 10/13/19 12:13 4/2/20 09:55 Loperamide HCl (Imodium) 2 mg Q6H PRN NG Diarrhea 07/18/19 09:00 08/17/19 08:59 07/18/19 10:37 Ondansetron HCl (Zofran) 4 mg Q6H PRN IVP Nausea & Vomiting 07/14/19 14:45 08/13/19 14:44 Piperacillin Sod/ Tazobactam Sod 3.375 gm/Dextrose 110 ml @ 27.5 mls/hr EVERY 12 HOURS IVPB 07/24/19 21:00 07/29/19 20:59 07/25/19 09:53 Vancomycin HCl (Vanco rx to dose) 1 ea DAILY PRN MISC Per rx protocol 07/14/19 14:45 08/13/19 14:44 Laboratory Tests 07/24/19 12:00: Random Amikacin Level [Pending], Random Vancomycin Level 12.8 07/24/19 15:30: Stool Occult Blood Negative 07/25/19 06:18: White Blood Count 13.0H, Red Blood Count 2.80L, Hemoglobin 8.6L, Hematocrit 25.9L, Mean Corpuscular Volume 92, Mean Corpuscular Hemoglobin 30.5, Mean Corpuscular Hemoglobin Concent 33.0, Red Cell Distribution Width 13.8, Platelet Count 363, Mean Platelet Volume 7.0, Neutrophils (%) (Auto) 73.0, Lymphocytes (% ) (Auto) 18.7L, Monocytes (%) (Auto) 6.7, Eosinophils (%) (Auto) 0.8, Basophils (%) (Auto) 0.8, Sodium Level 143, Potassium Level 3.7, Chloride Level 101, Carbon Dioxide Level 28, Anion Gap 14, Blood Urea Nitrogen 108H, Creatinine 5.2H , Estimat Glomerular Filtration Rate 9.5, Glucose Level 145H, Calcium Level 9.5 Height (Feet): 5 Height (Inches): 3.00 Weight (Pounds): [address] A/P (07/18) noted Omar Mckoy MD Jul 25, 2019 11:00
--- NOTE | 2019-07-25 11:02 | Nephrology Progress Note ---
Assessment/Plan Plan #Acute renal failure recent started on HD in 06/2018- #Sepsis #Dementia #HTN #elevated troponin #Dysphagia s/p PEG #urinary retention - permacath removed 07/19 - WBC downtrending --> temp HD catheter 07/22 --> next HD today on low sodium bath - monitor BMP closley - agree with FWF 100 q6 - continue lasix 80 IV daily -> switch to oral on DC - cardiology eval - monitor UOP---> increasing - urology eval - continue antibiotics per ID - coreg 3.125mg BID - follow repeat blood cx- growing pseudomonas - check iron panel, ferritin-> ferritin supersaturated - continue epogen 4K TIW - monitor BMP, mag and phos daily for now Subjective ROS Limited/Unobtainable: Yes Subjective blood cx growing pseudomonas temp HD catheter 07/22 permcath removed 07/19 BP stable breathing stable on NC WBC 13 plan for HD today Objective Objective Last 24 Hour Vital Signs Date Time Temp Pulse Resp B/P (MAP) Pulse Ox O2 Delivery O2 Flow Rate FiO2 07/25/19 09:00 100 110/50 07/25/19 08:42 Nasal Cannula 2.0 Nasal Cannula 2.0 07/25/19 08:00 100 07/25/19 08:00 98.3 81 19 110/50 (70) 98 07/25/19 04:00 98.0 71 18 123/69 (87) 98 07/25/19 04:00 113 07/25/19 00:00 117 07/25/19 00:00 96.8 79 18 110/81 (91) 97 07/24/19 21:00 Nasal Cannula 2.0 Nasal Cannula 2.0 07/24/19 20:33 97 122/66 07/24/19 20:00 97.7 97 20 122/66 (84) 97 07/24/19 20:00 99 07/24/19 16:00 96.8 62 19 113/53 (73) 96 07/24/19 16:00 97 07/24/19 12:00 98 07/24/19 12:00 98.8 98 20 120/76 (91) 96 Intake and Output 07/24/19 07/25/19 19:00 07:00 Intake Total 178 ml 518 ml Output Total 1700 ml Balance -1522 ml 518 ml Intake Oral 140 ml Free Water 100 ml Tube Feeding 38 ml 418 ml Output Urine Total 1700 ml # Voids 3 Laboratory Tests 07/24/19 12:00: Random Amikacin Level [Pending], Random Vancomycin Level 12.8 07/24/19 15:30: Stool Occult Blood Negative 07/25/19 06:18: White Blood Count 13.0H, Red Blood Count 2.80L, Hemoglobin 8.6L, Hematocrit 25.9L, Mean Corpuscular Volume 92, Mean Corpuscular Hemoglobin 30.5, Mean Corpuscular Hemoglobin Concent 33.0, Red Cell Distribution Width 13.8, Platelet Count 363, Mean Platelet Volume 7.0, Neutrophils (%) (Auto) 73.0, Lymphocytes (% ) (Auto) 18.7L, Monocytes (%) (Auto) 6.7, Eosinophils (%) (Auto) 0.8, Basophils (%) (Auto) 0.8, Sodium Level 143, Potassium Level 3.7, Chloride Level 101, Carbon Dioxide Level 28, Anion Gap 14, Blood Urea Nitrogen 108H, Creatinine 5.2H , Estimat Glomerular Filtration Rate 9.5, Glucose Level 145H, Calcium Level 9.5 Height (Feet): 5 Height (Inches): 3.00 Weight (Pounds): 139 Objective General: NAD, A&O x 1, self only HEENT: NCAT, EOMi, PEERLA, nares patent and no symmetrical, no tonsillar exudates, mucous membranes moist CV: RRR, no murmurs, rubs, or gallops Pulm: CTAB, No wheezes, rhonchi, or rales, no accessory muscle usage or conversational dyspnea GI: Soft, nontender, nondistended, bowel sounds present, PEG tube in place, C/D/ I Neuro: CN 2-12 grossly intact bilaterally, no focal signs. Ext: No lower extremity edema bilaterally, LE contracted bilaterally Skin: Multiple pressure ulcers noted on hip/heels Lymph: No lymphadenopathy in upper extremity and lower extremity Rory Oconnor M.D. Jul 25, 2019 11:02
--- NOTE | 2019-07-25 11:25 | General Progress Note ---
Assessment/Plan Status: stable Assessment/Plan: 1. End-stage renal disease, on hemodialysis. 2. Anemia. 3. Dysphagia, status post G-tube placement. 4. Pneumonia. 5. Pancreatic cyst. 6. Hypertension. 7. Diarrhea 8. Leukocytosis C.diff>> neg imodium prn GTF abx per ID HD per nephrology neurology in put appreciated repeal labs in am stool ob Subjective ROS Limited/Unobtainable: No Allergies: Coded Allergies: No Known Allergies (Unverified , 06/24/19) Objective Last 24 Hour Vital Signs Date Time Temp Pulse Resp B/P (MAP) Pulse Ox O2 Delivery O2 Flow Rate FiO2 07/25/19 09:00 100 110/50 07/25/19 08:42 Nasal Cannula 2.0 Nasal Cannula 2.0 07/25/19 08:00 100 07/25/19 08:00 98.3 81 19 110/50 (70) 98 07/25/19 04:00 98.0 71 18 123/69 (87) 98 07/25/19 04:00 113 07/25/19 00:00 117 07/25/19 00:00 96.8 79 18 110/81 (91) 97 07/24/19 21:00 Nasal Cannula 2.0 Nasal Cannula 2.0 07/24/19 20:33 97 122/66 07/24/19 20:00 97.7 97 20 122/66 (84) 97 07/24/19 20:00 99 07/24/19 16:00 96.8 62 19 113/53 (73) 96 07/24/19 16:00 97 07/24/19 12:00 98 07/24/19 12:00 98.8 98 20 120/76 (91) 96 Intake and Output 07/24/19 07/25/19 19:00 07:00 Intake Total 178 ml 518 ml Output Total 1700 ml Balance -1522 ml 518 ml Intake Oral 140 ml Free Water 100 ml Tube Feeding 38 ml 418 ml Output Urine Total 1700 ml # Voids 3 Laboratory Tests 07/24/19 12:00: Random Amikacin Level [Pending], Random Vancomycin Level 12.8 07/24/19 15:30: Stool Occult Blood Negative 07/25/19 06:18: White Blood Count 13.0H, Red Blood Count 2.80L, Hemoglobin 8.6L, Hematocrit 25.9L, Mean Corpuscular Volume 92, Mean Corpuscular Hemoglobin 30.5, Mean Corpuscular Hemoglobin Concent 33.0, Red Cell Distribution Width 13.8, Platelet Count 363, Mean Platelet Volume 7.0, Neutrophils (%) (Auto) 73.0, Lymphocytes (% ) (Auto) 18.7L, Monocytes (%) (Auto) 6.7, Eosinophils (%) (Auto) 0.8, Basophils (%) (Auto) 0.8, Sodium Level 143, Potassium Level 3.7, Chloride Level 101, Carbon Dioxide Level 28, Anion Gap 14, Blood Urea Nitrogen 108H, Creatinine 5.2H , Estimat Glomerular Filtration Rate 9.5, Glucose Level 145H, Calcium Level 9.5 Height (Feet): 5 Height (Inches): 3.00 Weight (Pounds): 139 General Appearance: alert EENT: normal ENT inspection Neck: supple Cardiovascular: normal rate Respiratory/Chest: decreased breath sounds Abdomen: normal bowel sounds, non tender, soft Extremities: non-tender Jun Mena MD Jul 25, 2019 11:25
[2019-07-25 12:00] VITALS: BP 132/50
--- NOTE | 2019-07-25 13:25 | Cardiac Electrophysiology PN ---
Subjective Subjective [id number] Objective Last 24 Hour Vital Signs Date Time Temp Pulse Resp B/P (MAP) Pulse Ox O2 Delivery O2 Flow Rate FiO2 07/25/19 09:00 100 110/50 07/25/19 08:42 Nasal Cannula 2.0 Nasal Cannula 2.0 07/25/19 08:00 100 07/25/19 08:00 98.3 81 19 110/50 (70) 98 07/25/19 04:00 98.0 71 18 123/69 (87) 98 07/25/19 04:00 113 07/25/19 00:00 117 07/25/19 00:00 96.8 79 18 110/81 (91) 97 07/24/19 21:00 Nasal Cannula 2.0 Nasal Cannula 2.0 07/24/19 20:33 97 122/66 07/24/19 20:00 97.7 97 20 122/66 (84) 97 07/24/19 20:00 99 07/24/19 16:00 96.8 62 19 113/53 (73) 96 07/24/19 16:00 97 Intake and Output 07/24/19 07/25/19 19:00 07:00 Intake Total 178 ml 518 ml Output Total 1700 ml Balance -1522 ml 518 ml Intake Oral 140 ml Free Water 100 ml Tube Feeding 38 ml 418 ml Output Urine Total 1700 ml # Voids 3 Laboratory Tests Test 07/24/19 15:30 07/25/19 06:18 Stool Occult Blood Negative (NEGATIVE) White Blood Count 13.0 K/UL (4.8-10.8) H Red Blood Count 2.80 M/UL (4.20-5.40) L Hemoglobin 8.6 G/DL (12.0-16.0) L Hematocrit 25.9 % (37.0-47.0) L Mean Corpuscular Volume 92 FL (80-99) Mean Corpuscular Hemoglobin 30.5 PG (27.0-31.0) Mean Corpuscular Hemoglobin Concent 33.0 G/DL (32.0-36.0) Red Cell Distribution Width 13.8 % (11.6-14.8) Platelet Count 363 K/UL (150-450) Mean Platelet Volume 7.0 FL (6.5-10.1) Neutrophils (%) (Auto) 73.0 % (45.0-75.0) Lymphocytes (%) (Auto) 18.7 % (20.0-45.0) L Monocytes (%) (Auto) 6.7 % (1.0-10.0) Eosinophils (%) (Auto) 0.8 % (0.0-3.0) Basophils (%) (Auto) 0.8 % (0.0-2.0) Sodium Level 143 MMOL/L (136-145) Potassium Level 3.7 MMOL/L (3.5-5.1) Chloride Level 101 MMOL/L (98-107) Carbon Dioxide Level 28 MMOL/L (21-32) Anion Gap 14 mmol/L (5-15) Blood Urea Nitrogen 108 mg/dL (7-18) H Creatinine 5.2 MG/DL (0.55-1.30) H Estimat Glomerular Filtration Rate 9.5 mL/min (>60) Glucose Level 145 MG/DL (74-106) H Calcium Level 9.5 MG/DL (8.5-10.1) Cristopher Osman MD Jul 25, 2019 13:25
--- NOTE | 2019-07-25 13:55 | NUR ---
RD ASSESSMENT & RECOMMENDATIONS SEE CARE ACTIVITY FOR COMPLETE ASSESSMENT DAILY ESTIMATED NEEDS: Needs based on Wounds, HD 51.8kg 30-35 kcals/kg 3135-3150 total kcals 1.25-1.8 g protein/kg 65-93 g total protein Fluids per MD mL/kg . total fluid mLs NUTRITION DIAGNOSIS: * Increased kcal and prot needs r/t wound healing and renal failure as evidenced by w/ multiple pressure injuries, including full thickness wound @ R hip, DTPI @ R humerous, L heel, sacrum (opened), R heel, R foot, and R 5th metatarsal, and unstageable wounds at L hallux + R malleolus, s/p recent permacath placement, HD dependent. * Swallowing difficulty R/T dysphagia as evidenced by s/p recent PEG placement, on GT feeding. CURRENT TF:Nepro @ 38ml/hr x 24 hrs ENTERAL NUTRITION RECOMMENDATIONS: Nepro @ 38ml/hr x 24 hrs to provide 912ml, 1642kcal, 74g prot, 663ml free water - Maintain current TF as tolerated - HOB over 30 degrees/ water flush per MD ADDITIONAL RECOMMENDATIONS: 1) Calibrated bedscale wt 2) Wound Care: add Nephrovite x 1 add Saw 1ptk BID when TF well tolerated @ goal 3) Monitor diarrhea: + rectal tube, culturelle BID + immodium prn added 4) Monitor BGs, consider NISS: BGs consistently mildly elevated 5) Monitor lytes and renal fxn: last phos elevated (5.5), check f/up phos
--- NOTE | 2019-07-25 14:18 | Surgery Progress Note ---
Surgery Progress Note Subjective Procedure Performed right femoral temporary HD catheter insertion Additional Comments no acute events stable comfortable Objective Last 24 Hour Vital Signs Date Time Temp Pulse Resp B/P (MAP) Pulse Ox O2 Delivery O2 Flow Rate FiO2 07/25/19 12:00 98.7 83 18 132/50 (77) 98 07/25/19 09:00 100 110/50 07/25/19 08:42 Nasal Cannula 2.0 Nasal Cannula 2.0 07/25/19 08:00 100 07/25/19 08:00 98.3 81 19 110/50 (70) 98 07/25/19 04:00 98.0 71 18 123/69 (87) 98 07/25/19 04:00 113 07/25/19 00:00 117 07/25/19 00:00 96.8 79 18 110/81 (91) 97 07/24/19 21:00 Nasal Cannula 2.0 Nasal Cannula 2.0 07/24/19 20:33 97 122/66 07/24/19 20:00 97.7 97 20 122/66 (84) 97 07/24/19 20:00 99 07/24/19 16:00 96.8 62 19 113/53 (73) 96 07/24/19 16:00 97 I&O Intake and Output 07/24/19 07/25/19 19:00 07:00 Intake Total 178 ml 518 ml Output Total 1700 ml Balance -1522 ml 518 ml Intake Oral 140 ml Free Water 100 ml Tube Feeding 38 ml 418 ml Output Urine Total 1700 ml # Voids 3 Dressing: dry Wound: clean Cardiovascular: RSR Respiratory: clear, decreased breath sounds Abdomen: soft, non-tender, present bowel sounds Extremities: no tenderness, no cyanosis Laboratory Tests Test 07/24/19 15:30 07/25/19 06:18 Stool Occult Blood Negative (NEGATIVE) White Blood Count 13.0 K/UL (4.8-10.8) H Red Blood Count 2.80 M/UL (4.20-5.40) L Hemoglobin 8.6 G/DL (12.0-16.0) L Hematocrit 25.9 % (37.0-47.0) L Mean Corpuscular Volume 92 FL (80-99) Mean Corpuscular Hemoglobin 30.5 PG (27.0-31.0) Mean Corpuscular Hemoglobin Concent 33.0 G/DL (32.0-36.0) Red Cell Distribution Width 13.8 % (11.6-14.8) Platelet Count 363 K/UL (150-450) Mean Platelet Volume 7.0 FL (6.5-10.1) Neutrophils (%) (Auto) 73.0 % (45.0-75.0) Lymphocytes (%) (Auto) 18.7 % (20.0-45.0) L Monocytes (%) (Auto) 6.7 % (1.0-10.0) Eosinophils (%) (Auto) 0.8 % (0.0-3.0) Basophils (%) (Auto) 0.8 % (0.0-2.0) Sodium Level 143 MMOL/L (136-145) Potassium Level 3.7 MMOL/L (3.5-5.1) Chloride Level 101 MMOL/L (98-107) Carbon Dioxide Level 28 MMOL/L (21-32) Anion Gap 14 mmol/L (5-15) Blood Urea Nitrogen 108 mg/dL (7-18) H Creatinine 5.2 MG/DL (0.55-1.30) H Estimat Glomerular Filtration Rate 9.5 mL/min (>60) Glucose Level 145 MG/DL (74-106) H Calcium Level 9.5 MG/DL (8.5-10.1) Plan Problems: (1) Decubitus skin ulcer Assessment & Plan: Pt presented on admission with multiple pressure injuries. Unstageable pressure injury R shoulder(L)3.8cm x (W)3.3cm. Base of wound is 100 % necrotic and dry. Marginal erythema along borders. No erythema or induration periwound. Reabsorbed DTPI R Humerus. Base of injury has dry peeling brown skin with underlying dry pink epithelial. R elbow pressure injury has resolved. Full thickness pressure injury R hip (L)7cm x (W)13.1cm. Base of wound is 70% fibrinous slough,10% necrotic ,20% moist pink granulation. Edges are macerated.Small amt seropurulent non-odorous exudate noted. NO erythema , induration or elevation in skin temp periwound. Opened DTPI Sacrum(L)9cm x (W)15cm. Base of wound is purple,indurated with an open wound at sacrococcygeal which has 100% slough(L)1.6cm x (W)1cm. Surrounding Skin hypopigmentation with areas of excoriation extending into perineum and perianal area. Unstageable pressure injury lateral R malleolus(L)2.5cm x (W)3cm. Base of wound is 100% dry necrosis. Edges adherent to base of wound. No erythema induration or fluctuance periwound. Reabsorbing DTPI R heel. Base of Heel is boggy,non-blanching erythema with dry peeling brown skin along edges.(L)4.2cm x (W)6cm. Resolving DTPI distal/lateral R foot. Stable dry brown eschar without fluctuance or induration(L)1cm x (W)1.5cm. Resolving DTPI Lateral R 5th metatarsal.Base of injury is dry,brown without fluctuance or induration.(L)0.6cm x (W)1cm Unstageable pressure injury L Hallux(L)4cm x (W)2.7cm. Base of wound is 80% necrotic,20% slough with marginal erythema along borders. No odor or exudate noted. DTPI L Heel. Base of injury maroon and fluctuant. Periwound is boggy but blanchable(L)5.5cm x (W)6.5cm. Tx.Plan: Cleanse R shoulder with Saline. Apply Therahoney. Apply Cavilon Periwound. Cover with Optifoam drsg. Change every 3 days and prn. Cleanse R hip with Saline. Apply Therahoney.Apply Moisture Barrier Periwound. Cover with Optifoam drsg. Change Daily and prn. Cleanse Sacrum with Saline. Apply Therahoney. Apply Moisture Barrier Paste periwound. Cover with Optifoam drsg. Change every 3 days and prn. Apply Moisture Barrier Paste to perineum and perianal areas with each incontinence care. Apply Betadine to R heel,Distal/lateral R foot ,R5th metatarsal. Cover with Optifoam drsg. Change every 3 days and prn. Apply Betadine to L hallux,and L heel. Cover each site with Optifoam drsg. Change every 3 days and prn. Reposition at least every 2hours or as tolerated. Place pillow between knees. off-load heels with pillow. (2) Fever Assessment & Plan: covid negative discussed with pcp and nephro may need to remove catheter as possible etiology covid negative c diff negative blood cultures from line. if positive will remove after next HD then line holiday blood cx with gram neg d/c line Line removed see note Line holiday Antibiotics as per infectious disease (3) Protein calorie malnutrition Assessment & Plan: DAILY ESTIMATED NEEDS: Needs based on Wounds, HD 51.8kg 30-35 kcals/kg 6189-1316 total kcals 1.25-1.8 g protein/kg 65-93 g total protein Fluids per MD mL/kg . total fluid mLs NUTRITION DIAGNOSIS: * Increased kcal and prot needs r/t wound healing and renal failure as evidenced by w/ multiple pressure injuries, pending re-evaluation, s/p recent PermCath placement, HD dependent. * Swallowing difficulty R/T dysphagia as evidenced by s/p recent PEG placement, on GT feeding. CURRENT TF:Jevity 1.2 @ 50ml/hr x 24 hrs ENTERAL NUTRITION RECOMMENDATIONS: Nepro @ 38ml/hr x 24 hrs to provide 912ml, 1642kcal, 74g prot, 663ml free water - Rec TF change to Nepro- HD dependent - Initiate Nepro @ 28ml/hr x 6 hrs, increase to goal as tolerated. - HOB over 30 degrees/ water flush per MD ADDITIONAL RECOMMENDATIONS: 1) Calibrated bedscale wt 2) Wound Care: add Nephrovite x 1 add Saw 1ptk BID when TF well tolerated @ goal 3) Check phos and mag levels 4) Monitor BGs, need for nISS 5) Add probiotics: h/o LBM prev adm, prolonged use of abx (4) Pressure ulcer Anshul Nava Jul 25, 2019 14:18
[2019-07-25 16:00] VITALS: BP 112/60
[2019-07-25] MEDS ORDERED: Amikacin 450 MG in NS 110 ML IV ONE (17:00)
--- NOTE | 2019-07-25 17:14 | Consultation ---
DATE OF CONSULTATION: 07/25/2019 CARDIAC ELECTROPHYSIOLOGY CONSULTATION CONSULTING PHYSICIAN: Cristopher Osman M.D. REFERRING PHYSICIAN: Meera Frederick M.D. ADDITIONAL REFERRING PHYSICIAN: Luna Brewster D.O. REASON FOR CONSULTATION: Tachycardia. HISTORY OF PRESENT ILLNESS: The patient is an 89-year-old lady with history of hypertension and history of Strep bacteremia, pneumonia, and sepsis, who was treated with full course of multiple antibiotics in the previous admission. The patient was sent to [facility] care facility and was readmitted on 07/14/2019 with fevers and was started on treatment for her pneumonia and sepsis. The patient also ruled out for COVID-19. The patient subsequently developed acute renal failure and started on hemodialysis. The patient also has history of non-ST elevation myocardial infarction and prior coronary artery disease. Cardiac electrophysiology consultation was requested in view of persistent tachycardia. REVIEW OF SYSTEMS: Negative other than what was mentioned in history of present illness. PAST MEDICAL HISTORY: As mentioned above. FAMILY HISTORY: Noncontributory. SOCIAL HISTORY: The patient lives in [facility]. Does not smoke or drink alcohol. PHYSICAL EXAMINATION: VITAL SIGNS: Blood pressure is 110/50, pulse is up to 120, respirations 18, and temperature 98.3. HEAD AND NECK: Shows no JVD. LUNGS: Coarse rhonchi. CARDIOVASCULAR: Shows regular S1 and S2, tachycardic. ABDOMEN: Soft. EXTREMITIES: No pitting edema. GENITOURINARY: The patient has catheter in the groin for dialysis. LABORATORY AND DIAGNOSTIC DATA: Labs show white count of 13, hemoglobin 8.6, hematocrit 26, and platelet count 363,000. Sodium 142, potassium , BUN of 108, creatinine of 5.1. Glucose of 145. INR is 1. ASSESSMENT AND PLAN: 1. Tachycardia. This is sinus tachycardia, likely due to underlying sepsis and infection. The patient is on Coreg 3.125 mg b.i.d. as well as IV antibiotic. I will increase the Coreg to 6.25 mg b.i.d. and watch the patient on telemetry. 2. Hypertension. Increase Coreg to 6.25 mg b.i.d. 3. History of coronary artery disease and prior non-ST elevation myocardial infarction. We will repeat the EKG and get an echocardiogram and get the troponin. Her EKG was suggestive of possible lateral infarct. 4. End-stage renal disease, now on hemodialysis. 5. Pneumonia, fever and sepsis. COVID-19 was ruled out. Antibiotics per ID. 6. Dysphagia, status post G-tube placement. Thank you very much for allowing me to participate in the care of this patient. Please do not hesitate to contact me if you have any questions regarding my evaluation. Cristopher Osman M.D. DR: RYAN JOB#: [id number] CC:
--- NOTE | 2019-07-25 19:47 | NUR ---
NURSE NOTES: Received report from HYUN Soto. Patient is awake lying semi-mei's; resting comfortably. No signs of acute distress noted or pain noted at this time. On 2L nasal cannula. AOx1; unable to make needs known. Checked IV site; patent and flushed. No erythema, bleeding, or infiltration noted. On low air loss, p200 mattress for appropriate wound management. G-tube in place. Nepro running at 30 mls/hr. Rectal tube draining well to gravity. Bed at lowest position, brakes on, siderails up x3. Call light within reach. Will continue to monitor.
--- NOTE | 2019-07-25 19:48 | Infectious Diseases Prog Note ---
Assessment/Plan Assessment/Plan ASSESSMENT AND PLAN: 1. sepsis, fevers, leukocytosis, ? pna, diarrhea, covid-19 test negative, ? right hip wound infection pseudomonas bacteremia/line infection, pseudomonas pna - zosyn x 7 days, discontinue other abx - hd line removed - new hd line placed - wound care per surgery and protocol - monitor labs - monitor chest x-ray - c.diff. - negative - surveillance blood cultures - negative - cath tip - negative to date 2. The patient has end-stage renal disease, on hemodialysis and PermCath. 3. Skin care protocol. 4. Anemia. 5. The patient has history of dysphagia, on G-tube. 6. Aspiration risk. 7. Hypertension. 8. Altered mental status. 9. History of Strep viridans bacteremia. 10. Hypertension, treatment per primary care team. 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 12. History of non-STEMI and CAD. 13. History of rhabdomyolysis. 14. History of acute renal failure, on dialysis. 15. Coronary artery disease. 16. No known drug allergies. 17. Social history negative. 18. Family history noncontributory. 19. MAR was noted. 20. Case discussed with RN. 21. Isolation in the acute care. 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 Subjective Constitutional: Denies: fever HEENT: Denies: congestion Respiratory: Denies: shortness of breath Cardiovascular: Denies: chest pain Gastrointestinal/Abdominal: Denies: nausea, vomiting Genitourinary: Reports: other - + hargrove Neurologic: Denies: headache Psychiatric: Reports: other - NA Skin: Denies: rash Hematologic: Denies: bleeding Musculoskeletal: Reports: other - NA Allergies: Coded Allergies: No Known Allergies (Unverified , 06/24/19) Objective Vital Signs Last 24 Hour Vital Signs Date Time Temp Pulse Resp B/P (MAP) Pulse Ox O2 Delivery O2 Flow Rate FiO2 07/25/19 16:00 104 07/25/19 16:00 98.5 78 18 112/60 (77) 97 07/25/19 12:00 98.7 83 18 132/50 (77) 98 07/25/19 12:00 106 07/25/19 09:00 100 110/50 07/25/19 08:42 Nasal Cannula 2.0 Nasal Cannula 2.0 07/25/19 08:00 100 07/25/19 08:00 98.3 81 19 110/50 (70) 98 07/25/19 04:00 98.0 71 18 123/69 (87) 98 07/25/19 04:00 113 07/25/19 00:00 117 07/25/19 00:00 96.8 79 18 110/81 (91) 97 07/24/19 21:00 Nasal Cannula 2.0 Nasal Cannula 2.0 07/24/19 20:33 97 122/66 07/24/19 20:00 97.7 97 20 122/66 (84) 97 07/24/19 20:00 99 Height (Feet): 5 Height (Inches): 3.00 Weight (Pounds): 139 General Appearance: no acute distress HEENT: normocephalic, atraumatic, anicteric Respiratory/Chest: crackles/rales, rhonchi - bilaterally Cardiovascular: normal rate, regular rhythm, no gallop/murmur, no JVD Abdomen: normal bowel sounds, soft, non tender, no organomegaly, non distended Genitourinary: other Extremities: no cyanosis Skin: no rash 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 Findings: Pulmonary vessel congestion noted. Heart is enlarged. Interstitial edema is mild. Bones are osteopenic. IMPRESSION: Mild interstitial edema Chest x-ray - 07/19/19 - Impression: Worsening of aeration with increasing haziness of the pulmonary vascularity and development of hazy perihilar airspace opacities. Findings likely related to fluid overload/CHF. Superimposed infection however not excluded. Clinical correlation and follow-up recommended. CT scan of abdomen and pelvis: IMPRESSION: Limited exam without intravenous contrast. Within these limitations: * Patchy opacities in the lung bases, left greater than right. Findings may related to subsegmental atelectasis. Possibility of pneumonia however not excluded. * Extensive coronary arterial calcifications. * Dialysis catheter partially visualized. * Indwelling gastrostomy and rectal tubes. * No intraabdominal fluid collection/abscess. * Interval removal of Hargrove catheter. Bladder is mildly distended but otherwise unremarkable. * Extensive atherosclerotic vascular calcifications. * Irregularity the skin overlying the inferior aspect of the sacrum. Correlate clinically to exclude the possibility of sacral decubitus ulcer. No subcutaneous fluid collection/abscess. * Osteopenia and severe degenerative changes of the spine with unchanged vertebral body compression deformities. * 1.5 cm cystic l Chest x-ray - 07/22/19 - Procedure: XRAY Chest 1v Indication: Dyspnea Comparison: 07/19/2019 A single view chest radiograph was obtained. Findings: No definite infiltrate or pulmonary vascular congestion identified. Right permacath was removed. The heart is enlarged. The aorta is mildly enlarged consistent with atherosclerotic vascular disease. The bones are osteopenic. There are thoracic vertebral enthesophytes at multiple levels. Impression: No acute disease Microbiology Date/Time Source Procedure Growth Status 07/22/19 03:20 Blood Blood Culture - Preliminary NO GROWTH AFTER 72 HOURS Resulted 07/20/19 04:30 Sputum Induced Gram Stain - Final Complete 07/20/19 04:30 Sputum Culture - Final Pseudomonas Aeruginosa Melanie Albicans Usual Respiratory Cristina Complete 07/17/19 07:00 Stool Clostridium difficile Toxin Assay - Final Complete 07/20/19 13:18 Catheter Site Catheter Tip Culture - Final NO GROWTH AFTER 4 DAYS Complete Laboratory Tests Test 07/25/19 06:18 White Blood Count 13.0 K/UL (4.8-10.8) H Red Blood Count 2.80 M/UL (4.20-5.40) L Hemoglobin 8.6 G/DL (12.0-16.0) L Hematocrit 25.9 % (37.0-47.0) L Mean Corpuscular Volume 92 FL (80-99) Mean Corpuscular Hemoglobin 30.5 PG (27.0-31.0) Mean Corpuscular Hemoglobin Concent 33.0 G/DL (32.0-36.0) Red Cell Distribution Width 13.8 % (11.6-14.8) Platelet Count 363 K/UL (150-450) Mean Platelet Volume 7.0 FL (6.5-10.1) Neutrophils (%) (Auto) 73.0 % (45.0-75.0) Lymphocytes (%) (Auto) 18.7 % (20.0-45.0) L Monocytes (%) (Auto) 6.7 % (1.0-10.0) Eosinophils (%) (Auto) 0.8 % (0.0-3.0) Basophils (%) (Auto) 0.8 % (0.0-2.0) Sodium Level 143 MMOL/L (136-145) Potassium Level 3.7 MMOL/L (3.5-5.1) Chloride Level 101 MMOL/L (98-107) Carbon Dioxide Level 28 MMOL/L (21-32) Anion Gap 14 mmol/L (5-15) Blood Urea Nitrogen 108 mg/dL (7-18) H Creatinine 5.2 MG/DL (0.55-1.30) H Estimat Glomerular Filtration Rate 9.5 mL/min (>60) Glucose Level 145 MG/DL (74-106) H Calcium Level 9.5 MG/DL (8.5-10.1) Current Medications Medications (Trade) Dose Ordered Sig/Joan Route PRN Reason Start Time Stop Time Status Last Admin Dose Admin Acetaminophen (Tylenol) 650 mg Q4H PRN ORAL Mild Pain (Pain Scale 1-3) 07/14/19 14:45 08/13/19 14:44 07/22/19 08:45 Atorvastatin Calcium (Lipitor) 10 mg QHS GT 07/14/19 21:00 10/12/19 20:59 07/24/19 20:33 Carvedilol (Coreg) 6.25 mg EVERY 12 HOURS ORAL 07/25/19 21:00 08/18/19 08:59 Chlorhexidine Gluconate (Cari-Hex 2%) 1 applic DAILY@2000 TOPIC 07/15/19 20:00 10/13/19 19:59 07/24/19 20:31 Dextrose (Dextrose 50%) 25 ml Q30M PRN IV Hypoglycemia 07/14/19 14:45 10/12/19 14:44 Dextrose (Dextrose 50%) 50 ml Q30M PRN IV Hypoglycemia 07/14/19 14:45 10/12/19 14:44 Epoetin Dion (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)) 4,000 unit MON-MON-MON SUBQ 07/24/19 21:00 10/22/19 20:59 07/24/19 20:35 Heparin Sodium (Porcine) (Heparin 5000 units/ml) 5,000 units EVERY 12 HOURS SUBQ 07/14/19 21:00 08/28/19 20:59 07/25/19 09:55 Hydralazine HCl (Apresoline) 10 mg Q4H PRN IV For High Blood Pressure 07/14/19 15:30 10/12/19 15:29 Lactobacillus Acidophilus (Culturelle) 1 tab Q12HR GT 07/15/19 12:14 10/13/19 12:13 07/25/19 09:55 Loperamide HCl (Imodium) 2 mg Q6H PRN NG Diarrhea 07/18/19 09:00 08/17/19 08:59 07/18/19 10:37 Ondansetron HCl (Zofran) 4 mg Q6H PRN IVP Nausea & Vomiting 07/14/19 14:45 08/13/19 14:44 Piperacillin Sod/ Tazobactam Sod 3.375 gm/Dextrose 110 ml @ 27.5 mls/hr EVERY 12 HOURS IVPB 07/24/19 21:00 07/29/19 20:59 07/25/19 09:53 Vancomycin HCl (Vanco rx to dose) 1 ea DAILY PRN MISC Per rx protocol 07/14/19 14:45 08/13/19 14:44 Ana Rosado MD Jul 25, 2019 19:48
[2019-07-25 20:00] VITALS: BP 106/62
[2019-07-25] MEDS: Carvedilol 6.25mg Tab ORAL SCH (20:40)
[2019-07-25] MEDS: Dyna-Hex 2% Top Sol 2oz TOPIC SCH (20:51)
--- NOTE | 2019-07-25 21:41 | Neurology Progress Note ---
Interim History Interim History ROS Limited/Unobtainable: No Interim History lethargic, cont HD Objective Physical Exam Last Vital Signs Date Time Temp Pulse Resp B/P (MAP) Pulse Ox O2 Delivery O2 Flow Rate FiO2 07/25/19 20:40 97 106/62 07/25/19 16:00 98.5 18 97 07/25/19 08:42 Nasal Cannula 2.0 Nasal Cannula 2.0 Laboratory Tests Test 07/25/19 06:18 White Blood Count 13.0 K/UL (4.8-10.8) H Red Blood Count 2.80 M/UL (4.20-5.40) L Hemoglobin 8.6 G/DL (12.0-16.0) L Hematocrit 25.9 % (37.0-47.0) L Mean Corpuscular Volume 92 FL (80-99) Mean Corpuscular Hemoglobin 30.5 PG (27.0-31.0) Mean Corpuscular Hemoglobin Concent 33.0 G/DL (32.0-36.0) Red Cell Distribution Width 13.8 % (11.6-14.8) Platelet Count 363 K/UL (150-450) Mean Platelet Volume 7.0 FL (6.5-10.1) Neutrophils (%) (Auto) 73.0 % (45.0-75.0) Lymphocytes (%) (Auto) 18.7 % (20.0-45.0) L Monocytes (%) (Auto) 6.7 % (1.0-10.0) Eosinophils (%) (Auto) 0.8 % (0.0-3.0) Basophils (%) (Auto) 0.8 % (0.0-2.0) Sodium Level 143 MMOL/L (136-145) Potassium Level 3.7 MMOL/L (3.5-5.1) Chloride Level 101 MMOL/L (98-107) Carbon Dioxide Level 28 MMOL/L (21-32) Anion Gap 14 mmol/L (5-15) Blood Urea Nitrogen 108 mg/dL (7-18) H Creatinine 5.2 MG/DL (0.55-1.30) H Estimat Glomerular Filtration Rate 9.5 mL/min (>60) Glucose Level 145 MG/DL (74-106) H Calcium Level 9.5 MG/DL (8.5-10.1) Head: normocophalic Neck: no rigidity EENT: benign Neurologic Exam Mental Status: awake Cranial Nerves III, IV, : PERRLA Objective Wakes up, tracks with eyes, tell me her name, withdraws all 4 Impression/Recommendations Problems: (1) Decubitus skin ulcer (2) Fever (3) Rhabdomyolysis (4) Elevated troponin (5) KAREN (acute kidney injury) (6) Fever (7) Elevated brain natriuretic peptide (BNP) level (8) ESRD (end stage renal disease) on dialysis (9) ESRD (end stage renal disease) on dialysis (10) Pressure ulcer (11) Protein calorie malnutrition (12) Dysphagia Status: stable Diagnostic Impression Acute encephalopathy, improved baseline dementia Sepsis Monitor neuro exam for improvement cont atb neg covid Delirium precautions Sushil Stevenson MD Jul 25, 2019 21:41
[2019-07-26] VITALS: BP 102/55
[2019-07-26 04:00] VITALS: BP 112/64
--- NOTE | 2019-07-26 07:31 | NUR ---
HAND-OFF: Report given to HYUN Colindres. Patient is awake lying semi-mei's; resting comfortably. Nepro running at 38 mls/hr. Rectal tube draining well to gravity. In stable condition.
[2019-07-26 07:36] LABS: BASOPHILS % (AUTO) 0.5 % (0.0-2.0); EOSINOPHILS % (AUTO) 0.8 % (0.0-3.0); HEMATOCRIT 26.6 % (37.0-47.0); HEMOGLOBIN 8.6 G/DL (12.0-16.0); LYMPHOCYTES % (AUTO) 15.7 % (20.0-45.0); MEAN CORPUSCULAR VOLUME 92 FL (80-99); NEUTROPHILS % (AUTO) 74.1 % (45.0-75.0); PLATELET COUNT 387 K/UL (150-450); RED BLOOD COUNT 2.88 M/UL (4.20-5.40); RED CELL DISTRIBUTION WIDTH 13.4 % (11.6-14.8); WHITE BLOOD COUNT 16.5 K/UL (4.8-10.8)
[2019-07-26 08:00] VITALS: BP 113/58
[2019-07-26 08:09] LABS: ANION GAP 17 mmol/L (5-15); BLOOD UREA NITROGEN 73 mg/dL (7-18); CALCIUM 9.9 MG/DL (8.5-10.1); CARBON DIOXIDE 27 MMOL/L (21-32); CHLORIDE 101 MMOL/L (98-107); CREATININE 3.9 MG/DL (0.55-1.30); POTASSIUM 3.5 MMOL/L (3.5-5.1); SODIUM 145 MMOL/L (136-145)
--- NOTE | 2019-07-26 08:09 | NUR ---
NURSE NOTES: Received patient from Lashell Reyna. Patient is awake and alert oriented to self. Verbally responsive. Tube feeding running with nepro @38 ML/hr via G tube. Patient for Tunneled Cath today will Call radiology to follow up. Rectal tube is in place liquid brown stool. NO complain of pain or discomfort at this time. Will continue plan of care.
[2019-07-26] MEDS: Lactobacillus-GG tablet GT SCH ×2 (08:46→22:51)
[2019-07-26] MEDS: Carvedilol 6.25mg Tab ORAL SCH ×2 (08:46→22:58)
[2019-07-26] MEDS: Heparin 5000 units/ml inj SUBQ SCH ×2 (08:49→22:58)
[2019-07-26] MEDS: Piperacillin/Tazobactam 3.375 GM in D5W 110 ML IVPB SCH ×2 (09:21→22:51)
--- NOTE | 2019-07-26 09:39 | NUR ---
NURSE NOTES: spoke with Anivalward from Radiology. Patient going for tunneled cath placement this afternoon. Tube feeding held since 0800. Heparin held. Will follow.n
--- NOTE | 2019-07-26 09:40 | NUR ---
NURSE NOTES: Dr Osman made aware of troponin result of 0.072. No new orders
--- NOTE | 2019-07-26 10:30 | Nephrology Progress Note ---
Assessment/Plan Plan #Acute renal failure recent started on HD in 06/2018- #Sepsis #Dementia #HTN #elevated troponin #Dysphagia s/p PEG #urinary retention - permacath removed 07/19 - WBC uptrending again --> temp HD catheter 07/22 --> next HD tomorrow on low sodium bath - monitor BMP closeric - agree with FWF 100 q6 - continue lasix 80 IV daily -> switch to oral on DC - cardiology eval - monitor UOP---> increasing - urology eval - continue antibiotics per ID - coreg 3.125mg BID - follow repeat blood cx- growing pseudomonas - check iron panel, ferritin-> ferritin supersaturated - continue epogen 4K TIW - monitor BMP, mag and phos daily for now Subjective Subjective blood cx growing pseudomonas WBC during temp HD catheter 07/22 permcath removed 07/19 BP stable breathing stable on NC WBC uptrending again hold off on permacath placement Objective Objective Last 24 Hour Vital Signs Date Time Temp Pulse Resp B/P (MAP) Pulse Ox O2 Delivery O2 Flow Rate FiO2 07/26/19 09:00 Nasal Cannula 2.0 07/26/19 08:46 104 113/58 07/26/19 08:00 100 07/26/19 08:00 99.0 104 18 113/58 (76) 99 07/26/19 04:00 98 07/26/19 04:00 96.8 95 18 112/64 (80) 97 07/26/19 00:00 97.0 104 19 102/55 (71) 96 07/26/19 00:00 101 07/25/19 21:00 Nasal Cannula 2.0 07/25/19 20:40 97 106/62 07/25/19 20:00 97.1 97 18 106/62 (77) 98 07/25/19 20:00 102 07/25/19 16:00 104 07/25/19 16:00 98.5 78 18 112/60 (77) 97 07/25/19 12:00 98.7 83 18 132/50 (77) 98 07/25/19 12:00 106 Intake and Output 07/25/19 07/26/19 19:00 07:00 Intake Total 38 ml 766.0 ml Output Total 2000 ml Balance -1962 ml 766.0 ml Free Water 200 ml IV Total 110.0 ml Tube Feeding 38 ml 456 ml Hemodialysis UF 2000 ml Laboratory Tests 07/26/19 06:38: White Blood Count 16.5H, Red Blood Count 2.88L, Hemoglobin 8.6L, Hematocrit 26.6L, Mean Corpuscular Volume 92, Mean Corpuscular Hemoglobin 30.0, Mean Corpuscular Hemoglobin Concent 32.5, Red Cell Distribution Width 13.4, Platelet Count 387, Mean Platelet Volume 8.1, Neutrophils (%) (Auto) 74.1, Lymphocytes (% ) (Auto) 15.7L, Monocytes (%) (Auto) 9.0, Eosinophils (%) (Auto) 0.8, Basophils (%) (Auto) 0.5, Sodium Level 145, Potassium Level 3.5, Chloride Level 101, Carbon Dioxide Level 27, Anion Gap 17H, Blood Urea Nitrogen 73H, Creatinine 3.9H , Estimat Glomerular Filtration Rate 13.1, Glucose Level 139H, Calcium Level 9.9 , Troponin I 0.072H, Pro-B-Type Natriuretic Peptide 2658H Height (Feet): 5 Height (Inches): 3.00 Weight (Pounds): 139 Objective General: NAD, A&O x 1, self only HEENT: NCAT, EOMi, PEERLA, nares patent and no symmetrical, no tonsillar exudates, mucous membranes moist CV: RRR, no murmurs, rubs, or gallops Pulm: CTAB, No wheezes, rhonchi, or rales, no accessory muscle usage or conversational dyspnea GI: Soft, nontender, nondistended, bowel sounds present, PEG tube in place, C/D/ I Neuro: CN 2-12 grossly intact bilaterally, no focal signs. Ext: No lower extremity edema bilaterally, LE contracted bilaterally Skin: Multiple pressure ulcers noted on hip/heels Lymph: No lymphadenopathy in upper extremity and lower extremity Rory Oconnor M.D. Jul 26, 2019 10:30
--- NOTE | 2019-07-26 10:35 | General Progress Note ---
Assessment/Plan Status: stable Assessment/Plan: 1. End-stage renal disease, on hemodialysis. 2. Anemia. 3. Dysphagia, status post G-tube placement. 4. Pneumonia. 5. Pancreatic cyst. 6. Hypertension. 7. Diarrhea 8. Leukocytosis C.diff>> neg imodium prn GTF abx per ID HD per nephrology neurology in put appreciated repeal labs in am stool ob Subjective ROS Limited/Unobtainable: No Allergies: Coded Allergies: No Known Allergies (Unverified , 06/24/19) Objective Last 24 Hour Vital Signs Date Time Temp Pulse Resp B/P (MAP) Pulse Ox O2 Delivery O2 Flow Rate FiO2 07/26/19 09:00 Nasal Cannula 2.0 07/26/19 08:46 104 113/58 07/26/19 08:00 100 07/26/19 08:00 99.0 104 18 113/58 (76) 99 07/26/19 04:00 98 07/26/19 04:00 96.8 95 18 112/64 (80) 97 07/26/19 00:00 97.0 104 19 102/55 (71) 96 07/26/19 00:00 101 07/25/19 21:00 Nasal Cannula 2.0 07/25/19 20:40 97 106/62 07/25/19 20:00 97.1 97 18 106/62 (77) 98 07/25/19 20:00 102 07/25/19 16:00 104 07/25/19 16:00 98.5 78 18 112/60 (77) 97 07/25/19 12:00 98.7 83 18 132/50 (77) 98 07/25/19 12:00 106 Intake and Output 07/25/19 07/26/19 19:00 07:00 Intake Total 38 ml 766.0 ml Output Total 2000 ml Balance -1962 ml 766.0 ml Free Water 200 ml IV Total 110.0 ml Tube Feeding 38 ml 456 ml Hemodialysis UF 2000 ml Laboratory Tests 07/26/19 06:38: White Blood Count 16.5H, Red Blood Count 2.88L, Hemoglobin 8.6L, Hematocrit 26.6L, Mean Corpuscular Volume 92, Mean Corpuscular Hemoglobin 30.0, Mean Corpuscular Hemoglobin Concent 32.5, Red Cell Distribution Width 13.4, Platelet Count 387, Mean Platelet Volume 8.1, Neutrophils (%) (Auto) 74.1, Lymphocytes (% ) (Auto) 15.7L, Monocytes (%) (Auto) 9.0, Eosinophils (%) (Auto) 0.8, Basophils (%) (Auto) 0.5, Sodium Level 145, Potassium Level 3.5, Chloride Level 101, Carbon Dioxide Level 27, Anion Gap 17H, Blood Urea Nitrogen 73H, Creatinine 3.9H , Estimat Glomerular Filtration Rate 13.1, Glucose Level 139H, Calcium Level 9.9 , Troponin I 0.072H, Pro-B-Type Natriuretic Peptide 2658H Height (Feet): 5 Height (Inches): 3.00 Weight (Pounds): 139 General Appearance: lethargic EENT: normal ENT inspection Neck: supple Cardiovascular: normal rate Respiratory/Chest: decreased breath sounds Abdomen: normal bowel sounds, non tender, soft Extremities: non-tender Jun Mena MD Jul 26, 2019 10:35
--- NOTE | 2019-07-26 11:25 | Cardiology Progress Note ---
Assessment/Plan Status: stable Assessment/Plan Assessment/Plan Assessment/Plan: Heart failure elevated BNP Elevated troponin HTN AMS Dysphagia s/p PEG ESRD on HD Syncope/fall -Serial EKG/Troponin - now down trending -maintain HD -Maintain abx per ID -Echocardiogram -Defer stress testing/cardiac cath -Continue aspirin -Continue statin -Continue lasix -Follow cultures -Continue tube feeds -Continue wound care -Supportive care Subjective Cardiovascular: Reports: no symptoms Respiratory: Reports: no symptoms Gastrointestinal/Abdominal: Reports: no symptoms Genitourinary: Reports: no symptoms Subjective No acute events, no CP/SOB no distress, tolerating ABx and HD Remains sinus tachycardia, no arrhythmias Objective Last 24 Hour Vital Signs Date Time Temp Pulse Resp B/P (MAP) Pulse Ox O2 Delivery O2 Flow Rate FiO2 07/26/19 09:00 Nasal Cannula 2.0 07/26/19 08:46 104 113/58 07/26/19 08:00 100 07/26/19 08:00 99.0 104 18 113/58 (76) 99 07/26/19 04:00 98 07/26/19 04:00 96.8 95 18 112/64 (80) 97 07/26/19 00:00 97.0 104 19 102/55 (71) 96 07/26/19 00:00 101 07/25/19 21:00 Nasal Cannula 2.0 07/25/19 20:40 97 106/62 07/25/19 20:00 97.1 97 18 106/62 (77) 98 07/25/19 20:00 102 07/25/19 16:00 104 07/25/19 16:00 98.5 78 18 112/60 (77) 97 07/25/19 12:00 98.7 83 18 132/50 (77) 98 07/25/19 12:00 106 General Appearance: no apparent distress, alert EENT: PERRL/EOMI, normal ENT inspection, TMs normal, pharynx normal Neck: non-tender, normal inspection Rhythm: NSR Cardiovascular: regular rhythm Respiratory/Chest: chest wall non-tender, lungs clear, normal breath sounds Abdomen: normal bowel sounds, non tender Extremities: normal range of motion, non-tender, normal inspection, no calf tenderness, no swelling 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, no motor/sensory deficits Intake and Output 07/25/19 07/26/19 19:00 07:00 Intake Total 38 ml 766.0 ml Output Total 2000 ml Balance -1962 ml 766.0 ml Free Water 200 ml IV Total 110.0 ml Tube Feeding 38 ml 456 ml Hemodialysis UF 2000 ml Laboratory Tests Test 07/26/19 06:38 White Blood Count 16.5 K/UL (4.8-10.8) H Red Blood Count 2.88 M/UL (4.20-5.40) L Hemoglobin 8.6 G/DL (12.0-16.0) L Hematocrit 26.6 % (37.0-47.0) L Mean Corpuscular Volume 92 FL (80-99) Mean Corpuscular Hemoglobin 30.0 PG (27.0-31.0) Mean Corpuscular Hemoglobin Concent 32.5 G/DL (32.0-36.0) Red Cell Distribution Width 13.4 % (11.6-14.8) Platelet Count 387 K/UL (150-450) Mean Platelet Volume 8.1 FL (6.5-10.1) Neutrophils (%) (Auto) 74.1 % (45.0-75.0) Lymphocytes (%) (Auto) 15.7 % (20.0-45.0) L Monocytes (%) (Auto) 9.0 % (1.0-10.0) Eosinophils (%) (Auto) 0.8 % (0.0-3.0) Basophils (%) (Auto) 0.5 % (0.0-2.0) Sodium Level 145 MMOL/L (136-145) Potassium Level 3.5 MMOL/L (3.5-5.1) Chloride Level 101 MMOL/L (98-107) Carbon Dioxide Level 27 MMOL/L (21-32) Anion Gap 17 mmol/L (5-15) H Blood Urea Nitrogen 73 mg/dL (7-18) H Creatinine 3.9 MG/DL (0.55-1.30) H Estimat Glomerular Filtration Rate 13.1 mL/min (>60) Glucose Level 139 MG/DL (74-106) H Calcium Level 9.9 MG/DL (8.5-10.1) Troponin I 0.072 ng/mL (0.000-0.056) Pro-B-Type Natriuretic Peptide 2658 pg/mL (0-125) H Melchor Cerna MD Jul 26, 2019 11:25
--- NOTE | 2019-07-26 11:37 | General Progress Note ---
Assessment/Plan Status: stable Assessment/Plan: 89-year-old female with PMH of acute renal failure, s/p right chest wall permacath on HD, dysphasia s/p PEG, multiple pressure wounds, HTN, h/o AMS was recently discharged from this facility for KAREN/rhabdo, unwitnessed fall, was sent to intermediate and returned here due to fevers. Patient was admitted for persistent fevers and for sepsis/COVID 19 rule out. ED course: BMP 8000, troponin 0 0.347, patient given for septic work-up and will be admitted for further treatment. #Sepsis #Pseudomonas bacteremia #Pseudomonas PNA #leukocytosis #Diarrhea - improved #ESRD on HD -continue inpatient level of care -CXR w/mild interstitial edema -COVID-19 NEGATIVE, Droplet precautions d/c -c diff negative -Imodium prn -CT abd/pelvis results reviewed -Permacath removed 07/19, line Cx negative -s/p temp cath right femoral 07/22 -ID following: Zosyn -Nephro following -d/w nephro, will hold off on David catheter for now given rise in WBC, likely will place monday, plan for HD tomorrow -d/w ID, given rise in WBC, BCx, UCx ordered, one time dose vanc given #Anemia of chronic dx -check iron panel, ferritin-> ferritin supersaturated -epogen 4K TIW #Hypernatremia - downtrending #Hyperkalemia - resolved #Hypokalemia - resolved -potassium replaced, ctm, replace PRN -FWF 100 cc q6 -Nephro following #HTN #elevated troponin #BNP elevated #Sinus tachycardia - resolved -trops stable 0.254, 0.240, 0.248 >>0.072 -likely due to demand ischemia, ESRD, sepsis -ASA, statin -cont. lasix 80 IV daily, will change to PO on d/c -hydralazine PRN for SBP >160 -Carvedilol increased to 6.25 mg BID -Cardio following, reccs appreciated #Hematuria #Possible Urinary retention. #Possible neurogenic bladder. -UA w/ evidence of RBCs, 4+ blood -Urology recs appreciated #Dysphagia -s/p PEG -tolerating TF -Dietary and GI following, recs appreciated -d/w ST, pt currently unable to manage PO, recommends pt to f/u w/ST as o/p for o/p video swallow once more stable #Dementia -stable -neuro following, appreciate recs #Pressure wounds -Cont. wound care DVT ppx - heparin sc Time spent on encounter: 35 mins, >50% on counseling, coordination of care. Subjective Allergies: Coded Allergies: No Known Allergies (Unverified , 06/24/19) Subjective F/u for pseudomonas HCAP/bacteremia, fevers. COVID NEGATIVE. Acute renal failure. No acute events overnight. HD line placed in Right femoral on 07/22. WBC uptrending. Pt non-verbal at this time, unable to obtain ROS. Appears comfortable. Objective Last 24 Hour Vital Signs Date Time Temp Pulse Resp B/P (MAP) Pulse Ox O2 Delivery O2 Flow Rate FiO2 07/26/19 09:00 Nasal Cannula 2.0 07/26/19 08:46 104 113/58 07/26/19 08:00 100 07/26/19 08:00 99.0 104 18 113/58 (76) 99 07/26/19 04:00 98 07/26/19 04:00 96.8 95 18 112/64 (80) 97 07/26/19 00:00 97.0 104 19 102/55 (71) 96 07/26/19 00:00 101 07/25/19 21:00 Nasal Cannula 2.0 07/25/19 20:40 97 106/62 07/25/19 20:00 97.1 97 18 106/62 (77) 98 07/25/19 20:00 102 07/25/19 16:00 104 07/25/19 16:00 98.5 78 18 112/60 (77) 97 07/25/19 12:00 98.7 83 18 132/50 (77) 98 07/25/19 12:00 106 Intake and Output 07/25/19 07/26/19 19:00 07:00 Intake Total 38 ml 766.0 ml Output Total 2000 ml Balance -1962 ml 766.0 ml Free Water 200 ml IV Total 110.0 ml Tube Feeding 38 ml 456 ml Hemodialysis UF 2000 ml Laboratory Tests 07/26/19 06:38: White Blood Count 16.5H, Red Blood Count 2.88L, Hemoglobin 8.6L, Hematocrit 26.6L, Mean Corpuscular Volume 92, Mean Corpuscular Hemoglobin 30.0, Mean Corpuscular Hemoglobin Concent 32.5, Red Cell Distribution Width 13.4, Platelet Count 387, Mean Platelet Volume 8.1, Neutrophils (%) (Auto) 74.1, Lymphocytes (% ) (Auto) 15.7L, Monocytes (%) (Auto) 9.0, Eosinophils (%) (Auto) 0.8, Basophils (%) (Auto) 0.5, Sodium Level 145, Potassium Level 3.5, Chloride Level 101, Carbon Dioxide Level 27, Anion Gap 17H, Blood Urea Nitrogen 73H, Creatinine 3.9H , Estimat Glomerular Filtration Rate 13.1, Glucose Level 139H, Calcium Level 9.9 , Troponin I 0.072H, Pro-B-Type Natriuretic Peptide 2658H Height (Feet): 5 Height (Inches): 3.00 Weight (Pounds): 139 Objective General Appearance: appears comfortable, alert, awake, in NAD, AOx1 at b/l HEENT: NCAT, EOMi, dry MMM Cardiovascular: RRR Respiratory/Chest: lungs clear, normal breath sounds Abdomen: non tender, soft, +PEG c/d/i Ext: contracted b/l, no edema, fight femoral line c/d/i Lisa Brewster M.D. Jul 26, 2019 11:37
--- NOTE | 2019-07-26 11:47 | Cardiac Electrophysiology PN ---
Assessment/Plan Assessment/Plan 1. Sinus Tachycardia due to underlying sepsis and infection. The patient is on Coreg 6.25 mg b.i.d. as well as IV antibiotic watch the patient on telemetry. 2. Hypertension. On Coreg to 6.25 mg b.i.d. 3. Troponin leak and history of coronary artery disease and prior non-ST elevation myocardial infarction. EKG SR with LVH.Echocardiogram pending 4. End-stage renal disease, now on hemodialysis. Awaiting changing Aman to Perm Cath 5. Pneumonia, fever and sepsis. COVID-19 was ruled out. Antibiotics per ID. 6. Dysphagia, status post G-tube placement. DW RN Subjective Subjective Tunneled HD catheter is postponed to Monday due to increased WBC. Remained in sinus tach 100 Objective Last 24 Hour Vital Signs Date Time Temp Pulse Resp B/P (MAP) Pulse Ox O2 Delivery O2 Flow Rate FiO2 07/26/19 09:00 Nasal Cannula 2.0 07/26/19 08:46 104 113/58 07/26/19 08:00 100 07/26/19 08:00 99.0 104 18 113/58 (76) 99 07/26/19 04:00 98 07/26/19 04:00 96.8 95 18 112/64 (80) 97 07/26/19 00:00 97.0 104 19 102/55 (71) 96 07/26/19 00:00 101 07/25/19 21:00 Nasal Cannula 2.0 07/25/19 20:40 97 106/62 07/25/19 20:00 97.1 97 18 106/62 (77) 98 07/25/19 20:00 102 07/25/19 16:00 104 07/25/19 16:00 98.5 78 18 112/60 (77) 97 07/25/19 12:00 98.7 83 18 132/50 (77) 98 07/25/19 12:00 106 Intake and Output 07/25/19 07/26/19 19:00 07:00 Intake Total 38 ml 766.0 ml Output Total 2000 ml Balance -1962 ml 766.0 ml Free Water 200 ml IV Total 110.0 ml Tube Feeding 38 ml 456 ml Hemodialysis UF 2000 ml Laboratory Tests Test 07/26/19 06:38 White Blood Count 16.5 K/UL (4.8-10.8) H Red Blood Count 2.88 M/UL (4.20-5.40) L Hemoglobin 8.6 G/DL (12.0-16.0) L Hematocrit 26.6 % (37.0-47.0) L Mean Corpuscular Volume 92 FL (80-99) Mean Corpuscular Hemoglobin 30.0 PG (27.0-31.0) Mean Corpuscular Hemoglobin Concent 32.5 G/DL (32.0-36.0) Red Cell Distribution Width 13.4 % (11.6-14.8) Platelet Count 387 K/UL (150-450) Mean Platelet Volume 8.1 FL (6.5-10.1) Neutrophils (%) (Auto) 74.1 % (45.0-75.0) Lymphocytes (%) (Auto) 15.7 % (20.0-45.0) L Monocytes (%) (Auto) 9.0 % (1.0-10.0) Eosinophils (%) (Auto) 0.8 % (0.0-3.0) Basophils (%) (Auto) 0.5 % (0.0-2.0) Sodium Level 145 MMOL/L (136-145) Potassium Level 3.5 MMOL/L (3.5-5.1) Chloride Level 101 MMOL/L (98-107) Carbon Dioxide Level 27 MMOL/L (21-32) Anion Gap 17 mmol/L (5-15) H Blood Urea Nitrogen 73 mg/dL (7-18) H Creatinine 3.9 MG/DL (0.55-1.30) H Estimat Glomerular Filtration Rate 13.1 mL/min (>60) Glucose Level 139 MG/DL (74-106) H Calcium Level 9.9 MG/DL (8.5-10.1) Troponin I 0.072 ng/mL (0.000-0.056) Pro-B-Type Natriuretic Peptide 2658 pg/mL (0-125) H Objective HEAD AND NECK: No JVD. LUNGS: Coarse rhonchi. CARDIOVASCULAR:Regular S1 and S2, tachycardic. ABDOMEN: Soft. EXTREMITIES: No pitting edema. GENITOURINARY: The patient has Aman catheter in the groin for dialysis. Cristopher Osman MD Jul 26, 2019 11:47
--- NOTE | 2019-07-26 11:54 | NUR ---
NURSE NOTES: HD order received from Dr. Oconnor for am. [facility] called to scheduled spoke with Carroll.
[2019-07-26 12:00] VITALS: BP 113/47
[2019-07-26] MEDS ORDERED: Vancomycin 1 GM in D5W 275 ML IVPB ONE (13:00)
--- NOTE | 2019-07-26 13:26 | Neurology Progress Note ---
Interim History Interim History ROS Limited/Unobtainable: No Interim History mentation remains poor resp improved Objective Physical Exam Last Vital Signs Date Time Temp Pulse Resp B/P (MAP) Pulse Ox O2 Delivery O2 Flow Rate FiO2 07/26/19 12:00 99.1 93 24 113/47 (69) 97 07/26/19 09:00 Nasal Cannula 2.0 Laboratory Tests Test 07/26/19 06:38 White Blood Count 16.5 K/UL (4.8-10.8) H Red Blood Count 2.88 M/UL (4.20-5.40) L Hemoglobin 8.6 G/DL (12.0-16.0) L Hematocrit 26.6 % (37.0-47.0) L Mean Corpuscular Volume 92 FL (80-99) Mean Corpuscular Hemoglobin 30.0 PG (27.0-31.0) Mean Corpuscular Hemoglobin Concent 32.5 G/DL (32.0-36.0) Red Cell Distribution Width 13.4 % (11.6-14.8) Platelet Count 387 K/UL (150-450) Mean Platelet Volume 8.1 FL (6.5-10.1) Neutrophils (%) (Auto) 74.1 % (45.0-75.0) Lymphocytes (%) (Auto) 15.7 % (20.0-45.0) L Monocytes (%) (Auto) 9.0 % (1.0-10.0) Eosinophils (%) (Auto) 0.8 % (0.0-3.0) Basophils (%) (Auto) 0.5 % (0.0-2.0) Sodium Level 145 MMOL/L (136-145) Potassium Level 3.5 MMOL/L (3.5-5.1) Chloride Level 101 MMOL/L (98-107) Carbon Dioxide Level 27 MMOL/L (21-32) Anion Gap 17 mmol/L (5-15) H Blood Urea Nitrogen 73 mg/dL (7-18) H Creatinine 3.9 MG/DL (0.55-1.30) H Estimat Glomerular Filtration Rate 13.1 mL/min (>60) Glucose Level 139 MG/DL (74-106) H Calcium Level 9.9 MG/DL (8.5-10.1) Troponin I 0.072 ng/mL (0.000-0.056) Pro-B-Type Natriuretic Peptide 2658 pg/mL (0-125) H Head: normocophalic Neck: no rigidity EENT: benign Neurologic Exam Mental Status: awake Cranial Nerves III, IV, : PERRLA Objective Wakes up, tracks with eyes, tell me her name, withdraws all 4 Impression/Recommendations Problems: (1) Decubitus skin ulcer (2) Fever (3) Rhabdomyolysis (4) Elevated troponin (5) KAREN (acute kidney injury) (6) Fever (7) Elevated brain natriuretic peptide (BNP) level (8) ESRD (end stage renal disease) on dialysis (9) ESRD (end stage renal disease) on dialysis (10) Pressure ulcer (11) Protein calorie malnutrition (12) Dysphagia Status: stable Diagnostic Impression Acute encephalopathy, improved baseline dementia Sepsis Monitor neuro exam for improvement cont atb neg covid Delirium precautions Sushil Stevenson MD Jul 26, 2019 13:26
--- NOTE | 2019-07-26 13:38 | Urology Progress Note ---
Assessment/Plan Status: stable Assessment/Plan: 1. Hematuria, which was previously gross and now microscopic. 2. End-stage renal disease, on hemodialysis. 3. Urinary retention history, now with incontinence. 4. Probable neurogenic bladder. 5. Pyuria. 6. Proteinuria. 7. History of acute kidney injury. 9. Nephrolithiasis. 8. Sepsis? monitor clinically abx as ordered, per ID I+O cath PRN cysto later HD per commercial title examiner f/u on blood cx Subjective Allergies: Coded Allergies: No Known Allergies (Unverified , 06/24/19) Subjective all noted, urinary incontinence, urine reported grossly non-bloody Objective Last 24 Hour Vital Signs Date Time Temp Pulse Resp B/P (MAP) Pulse Ox O2 Delivery O2 Flow Rate FiO2 07/26/19 12:00 99.1 93 24 113/47 (69) 97 07/26/19 09:00 Nasal Cannula 2.0 07/26/19 08:46 104 113/58 07/26/19 08:00 100 07/26/19 08:00 99.0 104 18 113/58 (76) 99 07/26/19 04:00 98 07/26/19 04:00 96.8 95 18 112/64 (80) 97 07/26/19 00:00 97.0 104 19 102/55 (71) 96 07/26/19 00:00 101 07/25/19 21:00 Nasal Cannula 2.0 07/25/19 20:40 97 106/62 07/25/19 20:00 97.1 97 18 106/62 (77) 98 07/25/19 20:00 102 07/25/19 16:00 104 07/25/19 16:00 98.5 78 18 112/60 (77) 97 Intake and Output 07/25/19 07/26/19 19:00 07:00 Intake Total 38 ml 766.0 ml Output Total 2000 ml Balance -1962 ml 766.0 ml Free Water 200 ml IV Total 110.0 ml Tube Feeding 38 ml 456 ml Hemodialysis UF 2000 ml Microbiology Date/Time Source Procedure Growth Status 07/22/19 03:20 Blood Blood Culture - Preliminary NO GROWTH AFTER 4 DAYS Resulted 07/20/19 04:30 Sputum Induced Gram Stain - Final Complete 07/20/19 04:30 Sputum Culture - Final Pseudomonas Aeruginosa Melanie Albicans Usual Respiratory Cristina Complete 07/17/19 07:00 Stool Clostridium difficile Toxin Assay - Final Complete 07/20/19 13:18 Catheter Site Catheter Tip Culture - Final NO GROWTH AFTER 4 DAYS Complete Current Medications Medications (Trade) Dose Ordered Sig/Joan Route PRN Reason Start Time Stop Time Status Last Admin Dose Admin Acetaminophen (Tylenol) 650 mg Q4H PRN ORAL Mild Pain (Pain Scale 1-3) 07/14/19 14:45 08/13/19 14:44 07/22/19 08:45 Atorvastatin Calcium (Lipitor) 10 mg QHS GT 07/14/19 21:00 10/12/19 20:59 07/25/19 20:50 Carvedilol (Coreg) 6.25 mg EVERY 12 HOURS ORAL 07/25/19 21:00 08/18/19 08:59 07/26/19 08:46 Chlorhexidine Gluconate (Cari-Hex 2%) 1 applic DAILY@2000 TOPIC 07/15/19 20:00 10/13/19 19:59 07/25/19 20:51 Dextrose (Dextrose 50%) 25 ml Q30M PRN IV Hypoglycemia 07/14/19 14:45 10/12/19 14:44 Dextrose (Dextrose 50%) 50 ml Q30M PRN IV Hypoglycemia 07/14/19 14:45 10/12/19 14:44 Epoetin Dion (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)) 4,000 unit MON-MON-MON SUBQ 07/24/19 21:00 10/22/19 20:59 07/24/19 20:35 Heparin Sodium (Porcine) (Heparin 5000 units/ml) 5,000 units EVERY 12 HOURS SUBQ 07/14/19 21:00 08/28/19 20:59 07/25/19 09:55 Hydralazine HCl (Apresoline) 10 mg Q4H PRN IV For High Blood Pressure 07/14/19 15:30 10/12/19 15:29 Lactobacillus Acidophilus (Culturelle) 1 tab Q12HR GT 07/15/19 12:14 10/13/19 12:13 07/26/19 08:46 Loperamide HCl (Imodium) 2 mg Q6H PRN NG Diarrhea 07/18/19 09:00 08/17/19 08:59 07/18/19 10:37 Ondansetron HCl (Zofran) 4 mg Q6H PRN IVP Nausea & Vomiting 07/14/19 14:45 08/13/19 14:44 Piperacillin Sod/ Tazobactam Sod 3.375 gm/Dextrose 110 ml @ 27.5 mls/hr EVERY 12 HOURS IVPB 07/24/19 21:00 07/29/19 20:59 07/26/19 09:21 Vancomycin HCl 1 gm/Dextrose 275 ml @ 183.708 mls/hr ONCE ONCE IVPB 07/26/19 13:00 07/26/19 14:29 07/26/19 13:31 Laboratory Tests 07/26/19 06:38: White Blood Count 16.5H, Red Blood Count 2.88L, Hemoglobin 8.6L, Hematocrit 26.6L, Mean Corpuscular Volume 92, Mean Corpuscular Hemoglobin 30.0, Mean Corpuscular Hemoglobin Concent 32.5, Red Cell Distribution Width 13.4, Platelet Count 387, Mean Platelet Volume 8.1, Neutrophils (%) (Auto) 74.1, Lymphocytes (% ) (Auto) 15.7L, Monocytes (%) (Auto) 9.0, Eosinophils (%) (Auto) 0.8, Basophils (%) (Auto) 0.5, Sodium Level 145, Potassium Level 3.5, Chloride Level 101, Carbon Dioxide Level 27, Anion Gap 17H, Blood Urea Nitrogen 73H, Creatinine 3.9H , Estimat Glomerular Filtration Rate 13.1, Glucose Level 139H, Calcium Level 9.9 , Troponin I 0.072H, Pro-B-Type Natriuretic Peptide 2658H Height (Feet): 5 Height (Inches): 3.00 Weight (Pounds): [address] A/P (07/18) noted Omar Mckoy MD Jul 26, 2019 13:38
[2019-07-26 16:00] VITALS: BP 120/60
--- NOTE | 2019-07-26 16:04 | NUR ---
CASE MANAGEMENT:REVIEW 07/26/19 SI: SEPSIS D/T BACTEREMIA INFECTED PERMCATH. COVID 19 NOT DETECTED 99.1 104 24 113/47 97% ON 2L/NC WBC+16.5 H/H-8.6/26.6 BUN+73 CR+3.9 TROPONIN(+) 0.072 IS: IV ZOSYN Q12 COREG GT Q12 EPOETIN SQ MWF LACTOBACILLUS GT Q12 HEPARIN SQ Q12 : NOW ON TELEMETRY [facility] RT FEMORAL TEMPORARY HD CATHETER IN PLACE CONTINUE IV ANTIBIOTICS MONITOR WBC'S
--- NOTE | 2019-07-26 19:16 | Surgery Progress Note ---
Surgery Progress Note Subjective Procedure Performed right femoral temporary HD catheter insertion Additional Comments ill appearing no n/v/fc labs noted Objective Last 24 Hour Vital Signs Date Time Temp Pulse Resp B/P (MAP) Pulse Ox O2 Delivery O2 Flow Rate FiO2 07/26/19 16:00 99.0 94 22 120/60 (80) 98 07/26/19 16:00 93 07/26/19 12:00 99.1 93 24 113/47 (69) 97 07/26/19 12:00 85 07/26/19 09:00 Nasal Cannula 2.0 07/26/19 08:46 104 113/58 07/26/19 08:00 100 07/26/19 08:00 99.0 104 18 113/58 (76) 99 07/26/19 04:00 98 07/26/19 04:00 96.8 95 18 112/64 (80) 97 07/26/19 00:00 97.0 104 19 102/55 (71) 96 07/26/19 00:00 101 07/25/19 21:00 Nasal Cannula 2.0 07/25/19 20:40 97 106/62 07/25/19 20:00 97.1 97 18 106/62 (77) 98 07/25/19 20:00 102 I&O Intake and Output 07/25/19 07/26/19 19:00 07:00 Intake Total 38 ml 766.0 ml Output Total 2000 ml Balance -1962 ml 766.0 ml Free Water 200 ml IV Total 110.0 ml Tube Feeding 38 ml 456 ml Hemodialysis UF 2000 ml Dressing: dry Wound: clean Cardiovascular: RSR Respiratory: clear, decreased breath sounds Abdomen: flat, non-tender, present bowel sounds Extremities: no tenderness, no cyanosis, other Laboratory Tests Test 07/26/19 06:38 White Blood Count 16.5 K/UL (4.8-10.8) H Red Blood Count 2.88 M/UL (4.20-5.40) L Hemoglobin 8.6 G/DL (12.0-16.0) L Hematocrit 26.6 % (37.0-47.0) L Mean Corpuscular Volume 92 FL (80-99) Mean Corpuscular Hemoglobin 30.0 PG (27.0-31.0) Mean Corpuscular Hemoglobin Concent 32.5 G/DL (32.0-36.0) Red Cell Distribution Width 13.4 % (11.6-14.8) Platelet Count 387 K/UL (150-450) Mean Platelet Volume 8.1 FL (6.5-10.1) Neutrophils (%) (Auto) 74.1 % (45.0-75.0) Lymphocytes (%) (Auto) 15.7 % (20.0-45.0) L Monocytes (%) (Auto) 9.0 % (1.0-10.0) Eosinophils (%) (Auto) 0.8 % (0.0-3.0) Basophils (%) (Auto) 0.5 % (0.0-2.0) Sodium Level 145 MMOL/L (136-145) Potassium Level 3.5 MMOL/L (3.5-5.1) Chloride Level 101 MMOL/L (98-107) Carbon Dioxide Level 27 MMOL/L (21-32) Anion Gap 17 mmol/L (5-15) H Blood Urea Nitrogen 73 mg/dL (7-18) H Creatinine 3.9 MG/DL (0.55-1.30) H Estimat Glomerular Filtration Rate 13.1 mL/min (>60) Glucose Level 139 MG/DL (74-106) H Calcium Level 9.9 MG/DL (8.5-10.1) Troponin I 0.072 ng/mL (0.000-0.056) Pro-B-Type Natriuretic Peptide 2658 pg/mL (0-125) H Plan Problems: (1) Decubitus skin ulcer Assessment & Plan: Pt presented on admission with multiple pressure injuries. Unstageable pressure injury R shoulder(L)3.8cm x (W)3.3cm. Base of wound is 100 % necrotic and dry. Marginal erythema along borders. No erythema or induration periwound. Reabsorbed DTPI R Humerus. Base of injury has dry peeling brown skin with underlying dry pink epithelial. R elbow pressure injury has resolved. Full thickness pressure injury R hip (L)7cm x (W)13.1cm. Base of wound is 70% fibrinous slough,10% necrotic ,20% moist pink granulation. Edges are macerated.Small amt seropurulent non-odorous exudate noted. NO erythema , induration or elevation in skin temp periwound. Opened DTPI Sacrum(L)9cm x (W)15cm. Base of wound is purple,indurated with an open wound at sacrococcygeal which has 100% slough(L)1.6cm x (W)1cm. Surrounding Skin hypopigmentation with areas of excoriation extending into perineum and perianal area. Unstageable pressure injury lateral R malleolus(L)2.5cm x (W)3cm. Base of wound is 100% dry necrosis. Edges adherent to base of wound. No erythema induration or fluctuance periwound. Reabsorbing DTPI R heel. Base of Heel is boggy,non-blanching erythema with dry peeling brown skin along edges.(L)4.2cm x (W)6cm. Resolving DTPI distal/lateral R foot. Stable dry brown eschar without fluctuance or induration(L)1cm x (W)1.5cm. Resolving DTPI Lateral R 5th metatarsal.Base of injury is dry,brown without fluctuance or induration.(L)0.6cm x (W)1cm Unstageable pressure injury L Hallux(L)4cm x (W)2.7cm. Base of wound is 80% necrotic,20% slough with marginal erythema along borders. No odor or exudate noted. DTPI L Heel. Base of injury maroon and fluctuant. Periwound is boggy but blanchable(L)5.5cm x (W)6.5cm. Tx.Plan: Cleanse R shoulder with Saline. Apply Therahoney. Apply Cavilon Periwound. Cover with Optifoam drsg. Change every 3 days and prn. Cleanse R hip with Saline. Apply Therahoney.Apply Moisture Barrier Periwound. Cover with Optifoam drsg. Change Daily and prn. Cleanse Sacrum with Saline. Apply Therahoney. Apply Moisture Barrier Paste periwound. Cover with Optifoam drsg. Change every 3 days and prn. Apply Moisture Barrier Paste to perineum and perianal areas with each incontinence care. Apply Betadine to R heel,Distal/lateral R foot ,R5th metatarsal. Cover with Optifoam drsg. Change every 3 days and prn. Apply Betadine to L hallux,and L heel. Cover each site with Optifoam drsg. Change every 3 days and prn. Reposition at least every 2hours or as tolerated. Place pillow between knees. off-load heels with pillow. (2) Fever Assessment & Plan: covid negative discussed with pcp and nephro may need to remove catheter as possible etiology covid negative c diff negative blood cultures from line. if positive will remove after next HD then line holiday blood cx with gram neg d/c line Line removed see note Line holiday new line placed see note cont hd Antibiotics as per infectious disease (3) Protein calorie malnutrition Assessment & Plan: DAILY ESTIMATED NEEDS: Needs based on Wounds, HD 51.8kg 30-35 kcals/kg 2661-1974 total kcals 1.25-1.8 g protein/kg 65-93 g total protein Fluids per MD mL/kg . total fluid mLs NUTRITION DIAGNOSIS: * Increased kcal and prot needs r/t wound healing and renal failure as evidenced by w/ multiple pressure injuries, pending re-evaluation, s/p recent PermCath placement, HD dependent. * Swallowing difficulty R/T dysphagia as evidenced by s/p recent PEG placement, on GT feeding. CURRENT TF:Jevity 1.2 @ 50ml/hr x 24 hrs ENTERAL NUTRITION RECOMMENDATIONS: Nepro @ 38ml/hr x 24 hrs to provide 912ml, 1642kcal, 74g prot, 663ml free water - Rec TF change to Nepro- HD dependent - Initiate Nepro @ 28ml/hr x 6 hrs, increase to goal as tolerated. - HOB over 30 degrees/ water flush per MD ADDITIONAL RECOMMENDATIONS: 1) Calibrated bedscale wt 2) Wound Care: add Nephrovite x 1 add Saw 1ptk BID when TF well tolerated @ goal 3) Check phos and mag levels 4) Monitor BGs, need for nISS 5) Add probiotics: h/o LBM prev adm, prolonged use of abx (4) Pressure ulcer Anshul Nava Jul 26, 2019 19:16
--- NOTE | 2019-07-26 19:27 | NUR ---
HAND-OFF: Report given to Lashell Mixon. Plan of care endorsed.
--- NOTE | 2019-07-26 19:35 | NUR ---
NURSE NOTES: Received report from Bernadine Ortiz RN. Pt AxOx0, in stable condition, no sign or symptoms of pain or distress noted at this time. Will continue plan of care and close monitoring.
[2019-07-26 20:00] VITALS: BP 143/63
[2019-07-26] MEDS: Epoetin Alfa-EPBX(ESRD on dialysis)4000 units/ml vial SUBQ SCH (21:00)
[2019-07-26] MEDS: Dyna-Hex 2% Top Sol 2oz TOPIC SCH (22:51)
[2019-07-27] VITALS: BP 96/50
[2019-07-27 04:00] VITALS: BP 109/50
--- NOTE | 2019-07-27 07:32 | General Progress Note ---
Assessment/Plan Status: stable Assessment/Plan: 1. End-stage renal disease, on hemodialysis. 2. Anemia. 3. Dysphagia, status post G-tube placement. 4. Pneumonia. 5. Pancreatic cyst. 6. Hypertension. 7. Diarrhea 8. Leukocytosis C.diff>> neg imodium prn GTF abx per ID HD per nephrology repeal labs in am pending placement Subjective ROS Limited/Unobtainable: No Allergies: Coded Allergies: No Known Allergies (Unverified , 06/24/19) Objective Last 24 Hour Vital Signs Date Time Temp Pulse Resp B/P (MAP) Pulse Ox O2 Delivery O2 Flow Rate FiO2 07/27/19 04:00 96 07/27/19 04:00 98.7 98 18 109/50 (69) 98 07/27/19 00:00 97 07/27/19 00:00 98.5 97 22 96/50 (65) 98 07/26/19 22:58 102 143/63 07/26/19 21:00 Nasal Cannula 2.0 07/26/19 20:00 98.5 102 22 143/63 (89) 98 07/26/19 20:00 105 07/26/19 16:00 99.0 94 22 120/60 (80) 98 07/26/19 16:00 93 07/26/19 12:00 99.1 93 24 113/47 (69) 97 07/26/19 12:00 85 07/26/19 09:00 Nasal Cannula 2.0 07/26/19 08:46 104 113/58 07/26/19 08:00 100 07/26/19 08:00 99.0 104 18 113/58 (76) 99 Intake and Output 07/26/19 07/27/19 19:00 07:00 Intake Total 158 ml Output Total 200 ml Balance 158 ml -200 ml Free Water 120 ml Tube Feeding 38 ml Stool Total 200 ml Height (Feet): 5 Height (Inches): 3.00 Weight (Pounds): 139 General Appearance: no apparent distress, lethargic EENT: normal ENT inspection Neck: supple Cardiovascular: normal rate Respiratory/Chest: decreased breath sounds Abdomen: normal bowel sounds, non tender, soft Extremities: non-tender Jun Mena MD Jul 27, 2019 07:32
--- NOTE | 2019-07-27 07:33 | NUR ---
HAND-OFF: Report given to Bronson Durand RN. Pt is in stable condition.
--- NOTE | 2019-07-27 07:35 | NUR ---
NURSE NOTES: Received pt in bed, sleeping. No s/s of distress/pain at this moment. IV on L hand 22g noted. R femoral cath noted. Rectal tube noted. Side rails x 2. Bed in the lowest, locked, and alarm on. Call light within reach. Will continue to monitor
[2019-07-27 08:00] VITALS: BP 92/50
[2019-07-27 08:28] LABS: BASOPHILS % (AUTO) 0.5 % (0.0-2.0); EOSINOPHILS % (AUTO) 0.9 % (0.0-3.0); HEMATOCRIT 25.7 % (37.0-47.0); HEMOGLOBIN 8.4 G/DL (12.0-16.0); LYMPHOCYTES % (AUTO) 15.6 % (20.0-45.0); MEAN CORPUSCULAR VOLUME 91 FL (80-99); MONOCYTES % (AUTO) 7.4 % (1.0-10.0); NEUTROPHILS % (AUTO) 75.7 % (45.0-75.0); PLATELET COUNT 396 K/UL (150-450); RED BLOOD COUNT 2.82 M/UL (4.20-5.40)
[2019-07-27 08:31] LABS: ANION GAP 17 mmol/L (5-15); BLOOD UREA NITROGEN 112 mg/dL (7-18); CALCIUM 9.7 MG/DL (8.5-10.1); CARBON DIOXIDE 27 MMOL/L (21-32); CHLORIDE 98 MMOL/L (98-107); CREATININE 5.6 MG/DL (0.55-1.30); POTASSIUM 3.6 MMOL/L (3.5-5.1); SODIUM 142 MMOL/L (136-145)
[2019-07-27] MEDS: Carvedilol 6.25mg Tab ORAL SCH (09:00)
[2019-07-27] MEDS: Heparin 5000 units/ml inj SUBQ SCH ×2 (09:00→20:28)
--- NOTE | 2019-07-27 09:36 | General Progress Note ---
Assessment/Plan Status: stable Assessment/Plan: 89-year-old female with PMH of acute renal failure, s/p right chest wall permacath on HD, dysphasia s/p PEG, multiple pressure wounds, HTN, h/o AMS was recently discharged from this facility for KAREN/rhabdo, unwitnessed fall, was sent to senior living and returned here due to fevers. Patient was admitted for persistent fevers and for sepsis/COVID 19 rule out. ED course: BMP 8000, troponin 0 0.347, patient given for septic work-up and will be admitted for further treatment. #Sepsis #Pseudomonas bacteremia #Pseudomonas PNA #leukocytosis #Diarrhea #ESRD on HD -continue inpatient level of care -CXR w/mild interstitial edema -COVID-19 NEGATIVE, Droplet precautions d/c -c diff negative -Imodium prn -CT abd/pelvis results reviewed -Permacath removed 07/19, line Cx negative -s/p temp cath right femoral 07/22 -07/24 BCx pending -ID following: Zosyn per ID -Nephro following -d/w nephro, will hold off on David catheter for now given rise in WBC, likely will place monday, plan for HD today, midodrine today #Anemia of chronic dx -check iron panel, ferritin-> ferritin supersaturated -epogen 4K TIW #Hypernatremia - resolved #Hyperkalemia - resolved #Hypokalemia - resolved -potassium replaced, ctm, replace PRN -FWF 100 cc q6 -Nephro following #HTN #elevated troponin #BNP elevated #Sinus tachycardia -trops stable 0.254, 0.240, 0.248 >>0.072 -likely due to demand ischemia, ESRD, sepsis -ASA, statin -off lasix for now given low bp -hydralazine PRN for SBP >160 -Carvedilol reduced to 3.25 mg BID given hypotension -echo pending -Cardio following, reccs appreciated #Hematuria #Possible Urinary retention. #Possible neurogenic bladder. -UA w/ evidence of RBCs, 4+ blood -Urology recs appreciated #Dysphagia -s/p PEG -tolerating TF -Dietary and GI following, recs appreciated -d/w ST, pt currently unable to manage PO, recommends pt to f/u w/ST as o/p for o/p video swallow once more stable #Dementia -stable -neuro following, appreciate recs #Pressure wounds -Cont. wound care DVT ppx - heparin sc Time spent on encounter: 35 mins, >50% on counseling, coordination of care. D/w Dr. Rosado. Subjective ROS Limited/Unobtainable: Yes - minimally communicative at b/l Allergies: Coded Allergies: No Known Allergies (Unverified , 06/24/19) Subjective F/u for pseudomonas HCAP/bacteremia, fevers. COVID NEGATIVE. Acute renal failure. No acute events overnight. WBC remains high, stable. Appears comfortable, minimally communicative, at b/l mentation. Objective Last 24 Hour Vital Signs Date Time Temp Pulse Resp B/P (MAP) Pulse Ox O2 Delivery O2 Flow Rate FiO2 07/27/19 08:29 Nasal Cannula 2.0 07/27/19 08:00 98.2 106 20 92/50 (64) 97 07/27/19 04:00 96 07/27/19 04:00 98.7 98 18 109/50 (69) 98 07/27/19 00:00 97 07/27/19 00:00 98.5 97 22 96/50 (65) 98 07/26/19 22:58 102 143/63 07/26/19 21:00 Nasal Cannula 2.0 07/26/19 20:00 98.5 102 22 143/63 (89) 98 07/26/19 20:00 105 07/26/19 16:00 99.0 94 22 120/60 (80) 98 07/26/19 16:00 93 07/26/19 12:00 99.1 93 24 113/47 (69) 97 07/26/19 12:00 85 Intake and Output 07/26/19 07/27/19 19:00 07:00 Intake Total 158 ml Output Total 200 ml Balance 158 ml -200 ml Free Water 120 ml Tube Feeding 38 ml Stool Total 200 ml Laboratory Tests 07/27/19 07:20: White Blood Count 16.0H, Red Blood Count 2.82L, Hemoglobin 8.4L, Hematocrit 25.7L, Mean Corpuscular Volume 91, Mean Corpuscular Hemoglobin 29.8, Mean Corpuscular Hemoglobin Concent 32.7, Red Cell Distribution Width 13.0, Platelet Count 396, Mean Platelet Volume 7.8, Neutrophils (%) (Auto) 75.7H, Lymphocytes ( %) (Auto) 15.6L, Monocytes (%) (Auto) 7.4, Eosinophils (%) (Auto) 0.9, Basophils (%) (Auto) 0.5 07/27/19 07:30: Sodium Level 142, Potassium Level 3.6, Chloride Level 98, Carbon Dioxide Level 27, Anion Gap 17H, Blood Urea Nitrogen 112H, Creatinine 5.6H, Estimat Glomerular Filtration Rate 8.6, Glucose Level 158H, Calcium Level 9.7 Height (Feet): 5 Height (Inches): 3.00 Weight (Pounds): 139 Objective General Appearance: appears comfortable, alert, awake, in NAD, AOx1 at b/l HEENT: NCAT, EOMi, dry MMM Cardiovascular: RRR Respiratory/Chest: lungs clear, normal breath sounds, no accessory muscle usage Abdomen: non tender, soft, +PEG c/d/i Ext: contracted b/l, no edema, fight femoral line c/d/i Lisa Brewster M.D. Jul 27, 2019 09:36
[2019-07-27] MEDS: Lactobacillus-GG tablet GT SCH ×2 (09:48→20:26)
[2019-07-27] MEDS: Piperacillin/Tazobactam 3.375 GM in D5W 110 ML IVPB SCH ×2 (09:48→20:28)
--- NOTE | 2019-07-27 10:11 | Cardiology Progress Note ---
Assessment/Plan Status: stable Assessment/Plan Assessment/Plan Assessment/Plan: Heart failure elevated BNP Elevated troponin HTN AMS Dysphagia s/p PEG ESRD on HD Syncope/fall -Serial EKG/Troponin - now down trending, no indication for cardiac cath -maintain HD -Echocardiogram pending -Continue aspirin -Continue statin -Continue lasix -Reduce coreg 3.125 BID re hypotension Subjective Cardiovascular: Reports: no symptoms Respiratory: Reports: no symptoms Gastrointestinal/Abdominal: Reports: no symptoms Subjective Blood pressures low this morning and remains tachycardic on coreg 6.25 BID. NO fevers. Mental status remains poor. Objective Last 24 Hour Vital Signs Date Time Temp Pulse Resp B/P (MAP) Pulse Ox O2 Delivery O2 Flow Rate FiO2 07/27/19 09:00 106 92/50 07/27/19 08:29 Nasal Cannula 2.0 07/27/19 08:00 98.2 106 20 92/50 (64) 97 07/27/19 08:00 98 07/27/19 04:00 96 07/27/19 04:00 98.7 98 18 109/50 (69) 98 07/27/19 00:00 97 07/27/19 00:00 98.5 97 22 96/50 (65) 98 07/26/19 22:58 102 143/63 07/26/19 21:00 Nasal Cannula 2.0 07/26/19 20:00 98.5 102 22 143/63 (89) 98 07/26/19 20:00 105 07/26/19 16:00 99.0 94 22 120/60 (80) 98 07/26/19 16:00 93 07/26/19 12:00 99.1 93 24 113/47 (69) 97 07/26/19 12:00 85 General Appearance: no apparent distress, lethargic EENT: PERRL/EOMI, normal ENT inspection, TMs normal, pharynx normal Neck: non-tender, normal alignment, supple, normal inspection, no JVD Rhythm: ST Cardiovascular: normal peripheral pulses, normal rate, regular rhythm Respiratory/Chest: chest wall non-tender, lungs clear, normal breath sounds Abdomen: normal bowel sounds, non tender, soft, no organomegaly Extremities: normal range of motion, non-tender, normal inspection, no calf tenderness, no swelling Neurologic: no motor/sensory deficits, motor weakness, sensory deficit, disoriented Intake and Output 07/26/19 07/27/19 19:00 07:00 Intake Total 158 ml Output Total 200 ml Balance 158 ml -200 ml Free Water 120 ml Tube Feeding 38 ml Stool Total 200 ml Laboratory Tests Test 07/27/19 07:20 07/27/19 07:30 White Blood Count 16.0 K/UL (4.8-10.8) H Red Blood Count 2.82 M/UL (4.20-5.40) L Hemoglobin 8.4 G/DL (12.0-16.0) L Hematocrit 25.7 % (37.0-47.0) L Mean Corpuscular Volume 91 FL (80-99) Mean Corpuscular Hemoglobin 29.8 PG (27.0-31.0) Mean Corpuscular Hemoglobin Concent 32.7 G/DL (32.0-36.0) Red Cell Distribution Width 13.0 % (11.6-14.8) Platelet Count 396 K/UL (150-450) Mean Platelet Volume 7.8 FL (6.5-10.1) Neutrophils (%) (Auto) 75.7 % (45.0-75.0) H Lymphocytes (%) (Auto) 15.6 % (20.0-45.0) L Monocytes (%) (Auto) 7.4 % (1.0-10.0) Eosinophils (%) (Auto) 0.9 % (0.0-3.0) Basophils (%) (Auto) 0.5 % (0.0-2.0) Sodium Level 142 MMOL/L (136-145) Potassium Level 3.6 MMOL/L (3.5-5.1) Chloride Level 98 MMOL/L (98-107) Carbon Dioxide Level 27 MMOL/L (21-32) Anion Gap 17 mmol/L (5-15) H Blood Urea Nitrogen 112 mg/dL (7-18) H Creatinine 5.6 MG/DL (0.55-1.30) H Estimat Glomerular Filtration Rate 8.6 mL/min (>60) Glucose Level 158 MG/DL (74-106) H Calcium Level 9.7 MG/DL (8.5-10.1) Melchor Cerna MD Jul 27, 2019 10:11
[2019-07-27] MEDS ORDERED: 1/2 NS 1000ml IV ONE (10:34)
[2019-07-27] MEDS ORDERED: Midodrine 10mg tab ORAL SCH (11:00)
--- NOTE | 2019-07-27 11:44 | Urology Progress Note ---
Assessment/Plan Status: stable Assessment/Plan: 1. Hematuria, which was previously gross and now microscopic. 2. End-stage renal disease, on hemodialysis. 3. Urinary retention history, now with incontinence. 4. Probable neurogenic bladder. 5. Pyuria. 6. Proteinuria. 7. History of acute kidney injury. 9. Nephrolithiasis. 8. Sepsis? monitor clinically abx as ordered, per ID I+O cath PRN cysto later HD per lead programmer analyst f/u on blood cx Subjective Allergies: Coded Allergies: No Known Allergies (Unverified , 06/24/19) Subjective all noted, urinary incontinence, urine reported grossly non-bloody Objective Last 24 Hour Vital Signs Date Time Temp Pulse Resp B/P (MAP) Pulse Ox O2 Delivery O2 Flow Rate FiO2 07/27/19 09:00 106 92/50 07/27/19 08:29 Nasal Cannula 2.0 07/27/19 08:00 98.2 106 20 92/50 (64) 97 07/27/19 08:00 98 07/27/19 04:00 96 07/27/19 04:00 98.7 98 18 109/50 (69) 98 07/27/19 00:00 97 07/27/19 00:00 98.5 97 22 96/50 (65) 98 07/26/19 22:58 102 143/63 07/26/19 21:00 Nasal Cannula 2.0 07/26/19 20:00 98.5 102 22 143/63 (89) 98 07/26/19 20:00 105 07/26/19 16:00 99.0 94 22 120/60 (80) 98 07/26/19 16:00 93 07/26/19 12:00 99.1 93 24 113/47 (69) 97 07/26/19 12:00 85 Intake and Output 07/26/19 07/27/19 19:00 07:00 Intake Total 158 ml Output Total 200 ml Balance 158 ml -200 ml Free Water 120 ml Tube Feeding 38 ml Stool Total 200 ml Microbiology Date/Time Source Procedure Growth Status 07/22/19 03:20 Blood Blood Culture - Final NO GROWTH AFTER 5 DAYS Complete 07/20/19 04:30 Sputum Induced Gram Stain - Final Complete 07/20/19 04:30 Sputum Culture - Final Pseudomonas Aeruginosa Melanie Albicans Usual Respiratory Cristina Complete 07/17/19 07:00 Stool Clostridium difficile Toxin Assay - Final Complete 07/20/19 13:18 Catheter Site Catheter Tip Culture - Final NO GROWTH AFTER 4 DAYS Complete Current Medications Medications (Trade) Dose Ordered Sig/Joan Route PRN Reason Start Time Stop Time Status Last Admin Dose Admin Acetaminophen (Tylenol) 650 mg Q4H PRN ORAL Mild Pain (Pain Scale 1-3) 07/14/19 14:45 08/13/19 14:44 07/22/19 08:45 Albumin Human 100 ml @ 100 mls/hr ONCE IV 07/27/19 10:45 07/27/19 13:00 07/27/19 10:53 Albumin Human 100 ml @ 100 mls/hr ONCE IV 07/27/19 11:00 07/27/19 13:00 07/27/19 11:19 Atorvastatin Calcium (Lipitor) 10 mg QHS GT 07/14/19 21:00 10/12/19 20:59 07/26/19 22:51 Carvedilol (Coreg) 3.125 mg EVERY 12 HOURS ORAL 07/27/19 21:00 08/18/19 08:59 Chlorhexidine Gluconate (Cari-Hex 2%) 1 applic DAILY@2000 TOPIC 07/15/19 20:00 10/13/19 19:59 07/26/19 22:51 Dextrose (Dextrose 50%) 25 ml Q30M PRN IV Hypoglycemia 07/14/19 14:45 10/12/19 14:44 Dextrose (Dextrose 50%) 50 ml Q30M PRN IV Hypoglycemia 07/14/19 14:45 10/12/19 14:44 Epoetin Dion (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)) 4,000 unit MON-MON-MON SUBQ 07/24/19 21:00 10/22/19 20:59 07/26/19 21:00 Heparin Sodium (Porcine) (Heparin 5000 units/ml) 5,000 units EVERY 12 HOURS SUBQ 07/14/19 21:00 08/28/19 20:59 07/26/19 22:58 Hydralazine HCl (Apresoline) 10 mg Q4H PRN IV For High Blood Pressure 07/14/19 15:30 10/12/19 15:29 Lactobacillus Acidophilus (Culturelle) 1 tab Q12HR GT 07/15/19 12:14 10/13/19 12:13 4/4/20 09:48 Loperamide HCl (Imodium) 2 mg Q6H PRN NG Diarrhea 07/18/19 09:00 08/17/19 08:59 07/18/19 10:37 Midodrine (Pro-Amatine) 10 mg ONCE ORAL 07/27/19 11:00 07/27/19 13:00 07/27/19 11:22 Ondansetron HCl (Zofran) 4 mg Q6H PRN IVP Nausea & Vomiting 07/14/19 14:45 08/13/19 14:44 Piperacillin Sod/ Tazobactam Sod 3.375 gm/Dextrose 110 ml @ 27.5 mls/hr EVERY 12 HOURS IVPB 07/24/19 21:00 07/29/19 20:59 07/27/19 09:48 Laboratory Tests 07/27/19 07:20: White Blood Count 16.0H, Red Blood Count 2.82L, Hemoglobin 8.4L, Hematocrit 25.7L, Mean Corpuscular Volume 91, Mean Corpuscular Hemoglobin 29.8, Mean Corpuscular Hemoglobin Concent 32.7, Red Cell Distribution Width 13.0, Platelet Count 396, Mean Platelet Volume 7.8, Neutrophils (%) (Auto) 75.7H, Lymphocytes ( %) (Auto) 15.6L, Monocytes (%) (Auto) 7.4, Eosinophils (%) (Auto) 0.9, Basophils (%) (Auto) 0.5 07/27/19 07:30: Sodium Level 142, Potassium Level 3.6, Chloride Level 98, Carbon Dioxide Level 27, Anion Gap 17H, Blood Urea Nitrogen 112H, Creatinine 5.6H, Estimat Glomerular Filtration Rate 8.6, Glucose Level 158H, Calcium Level 9.7 Height (Feet): 5 Height (Inches): 3.00 Weight (Pounds): [address] A/P (07/18) noted Omar Mckoy MD Jul 27, 2019 11:44
[2019-07-27 12:00] VITALS: BP 118/57
--- NOTE | 2019-07-27 14:56 | Surgery Progress Note ---
Surgery Progress Note Subjective Procedure Performed right femoral temporary HD catheter insertion Additional Comments noted to have oozing blood around cath site. HD today dressings changed pressure dressing applied discussed with RN will monitor Objective Last 24 Hour Vital Signs Date Time Temp Pulse Resp B/P (MAP) Pulse Ox O2 Delivery O2 Flow Rate FiO2 07/27/19 12:00 97.9 95 18 118/57 (77) 100 07/27/19 12:00 96 07/27/19 09:00 106 92/50 07/27/19 08:29 Nasal Cannula 2.0 07/27/19 08:00 98.2 106 20 92/50 (64) 97 07/27/19 08:00 98 07/27/19 04:00 96 07/27/19 04:00 98.7 98 18 109/50 (69) 98 07/27/19 00:00 97 07/27/19 00:00 98.5 97 22 96/50 (65) 98 07/26/19 22:58 102 143/63 07/26/19 21:00 Nasal Cannula 2.0 07/26/19 20:00 98.5 102 22 143/63 (89) 98 07/26/19 20:00 105 07/26/19 16:00 99.0 94 22 120/60 (80) 98 07/26/19 16:00 93 I&O Intake and Output 07/26/19 07/27/19 19:00 07:00 Intake Total 158 ml Output Total 200 ml Balance 158 ml -200 ml Free Water 120 ml Tube Feeding 38 ml Stool Total 200 ml Dressing: saturated Wound: other Drains: other Cardiovascular: RSR Respiratory: decreased breath sounds Abdomen: soft, non-tender, present bowel sounds Extremities: edema, no tenderness, no cyanosis, other Laboratory Tests Test 07/27/19 07:20 07/27/19 07:30 White Blood Count 16.0 K/UL (4.8-10.8) H Red Blood Count 2.82 M/UL (4.20-5.40) L Hemoglobin 8.4 G/DL (12.0-16.0) L Hematocrit 25.7 % (37.0-47.0) L Mean Corpuscular Volume 91 FL (80-99) Mean Corpuscular Hemoglobin 29.8 PG (27.0-31.0) Mean Corpuscular Hemoglobin Concent 32.7 G/DL (32.0-36.0) Red Cell Distribution Width 13.0 % (11.6-14.8) Platelet Count 396 K/UL (150-450) Mean Platelet Volume 7.8 FL (6.5-10.1) Neutrophils (%) (Auto) 75.7 % (45.0-75.0) H Lymphocytes (%) (Auto) 15.6 % (20.0-45.0) L Monocytes (%) (Auto) 7.4 % (1.0-10.0) Eosinophils (%) (Auto) 0.9 % (0.0-3.0) Basophils (%) (Auto) 0.5 % (0.0-2.0) Sodium Level 142 MMOL/L (136-145) Potassium Level 3.6 MMOL/L (3.5-5.1) Chloride Level 98 MMOL/L (98-107) Carbon Dioxide Level 27 MMOL/L (21-32) Anion Gap 17 mmol/L (5-15) H Blood Urea Nitrogen 112 mg/dL (7-18) H Creatinine 5.6 MG/DL (0.55-1.30) H Estimat Glomerular Filtration Rate 8.6 mL/min (>60) Glucose Level 158 MG/DL (74-106) H Calcium Level 9.7 MG/DL (8.5-10.1) Plan Problems: (1) Decubitus skin ulcer Assessment & Plan: Pt presented on admission with multiple pressure injuries. Unstageable pressure injury R shoulder(L)3.8cm x (W)3.3cm. Base of wound is 100 % necrotic and dry. Marginal erythema along borders. No erythema or induration periwound. Reabsorbed DTPI R Humerus. Base of injury has dry peeling brown skin with underlying dry pink epithelial. R elbow pressure injury has resolved. Full thickness pressure injury R hip (L)7cm x (W)13.1cm. Base of wound is 70% fibrinous slough,10% necrotic ,20% moist pink granulation. Edges are macerated.Small amt seropurulent non-odorous exudate noted. NO erythema , induration or elevation in skin temp periwound. Opened DTPI Sacrum(L)9cm x (W)15cm. Base of wound is purple,indurated with an open wound at sacrococcygeal which has 100% slough(L)1.6cm x (W)1cm. Surrounding Skin hypopigmentation with areas of excoriation extending into perineum and perianal area. Unstageable pressure injury lateral R malleolus(L)2.5cm x (W)3cm. Base of wound is 100% dry necrosis. Edges adherent to base of wound. No erythema induration or fluctuance periwound. Reabsorbing DTPI R heel. Base of Heel is boggy,non-blanching erythema with dry peeling brown skin along edges.(L)4.2cm x (W)6cm. Resolving DTPI distal/lateral R foot. Stable dry brown eschar without fluctuance or induration(L)1cm x (W)1.5cm. Resolving DTPI Lateral R 5th metatarsal.Base of injury is dry,brown without fluctuance or induration.(L)0.6cm x (W)1cm Unstageable pressure injury L Hallux(L)4cm x (W)2.7cm. Base of wound is 80% necrotic,20% slough with marginal erythema along borders. No odor or exudate noted. DTPI L Heel. Base of injury maroon and fluctuant. Periwound is boggy but blanchable(L)5.5cm x (W)6.5cm. Tx.Plan: Cleanse R shoulder with Saline. Apply Therahoney. Apply Cavilon Periwound. Cover with Optifoam drsg. Change every 3 days and prn. Cleanse R hip with Saline. Apply Therahoney.Apply Moisture Barrier Periwound. Cover with Optifoam drsg. Change Daily and prn. Cleanse Sacrum with Saline. Apply Therahoney. Apply Moisture Barrier Paste periwound. Cover with Optifoam drsg. Change every 3 days and prn. Apply Moisture Barrier Paste to perineum and perianal areas with each incontinence care. Apply Betadine to R heel,Distal/lateral R foot ,R5th metatarsal. Cover with Optifoam drsg. Change every 3 days and prn. Apply Betadine to L hallux,and L heel. Cover each site with Optifoam drsg. Change every 3 days and prn. Reposition at least every 2hours or as tolerated. Place pillow between knees. off-load heels with pillow. (2) Fever Assessment & Plan: covid negative discussed with pcp and nephro may need to remove catheter as possible etiology covid negative c diff negative blood cultures from line. if positive will remove after next HD then line holiday blood cx with gram neg d/c line Line removed see note Line holiday new line placed see note cont hd Antibiotics as per infectious disease (3) Protein calorie malnutrition Assessment & Plan: DAILY ESTIMATED NEEDS: Needs based on Wounds, HD 51.8kg 30-35 kcals/kg 2999-6823 total kcals 1.25-1.8 g protein/kg 65-93 g total protein Fluids per MD mL/kg . total fluid mLs NUTRITION DIAGNOSIS: * Increased kcal and prot needs r/t wound healing and renal failure as evidenced by w/ multiple pressure injuries, pending re-evaluation, s/p recent PermCath placement, HD dependent. * Swallowing difficulty R/T dysphagia as evidenced by s/p recent PEG placement, on GT feeding. CURRENT TF:Jevity 1.2 @ 50ml/hr x 24 hrs ENTERAL NUTRITION RECOMMENDATIONS: Nepro @ 38ml/hr x 24 hrs to provide 912ml, 1642kcal, 74g prot, 663ml free water - Rec TF change to Nepro- HD dependent - Initiate Nepro @ 28ml/hr x 6 hrs, increase to goal as tolerated. - HOB over 30 degrees/ water flush per MD ADDITIONAL RECOMMENDATIONS: 1) Calibrated bedscale wt 2) Wound Care: add Nephrovite x 1 add Saw 1ptk BID when TF well tolerated @ goal 3) Check phos and mag levels 4) Monitor BGs, need for nISS 5) Add probiotics: h/o LBM prev adm, prolonged use of abx (4) Pressure ulcer Additional Comments monitor bleeding dressing prn labs Anshul Costa Jul 27, 2019 14:56
--- NOTE | 2019-07-27 15:16 | Cardiac Electrophysiology PN ---
Assessment/Plan Assessment/Plan 1. Sinus Tachycardia due to sepsis . On Coreg 6.25 mg b.i.d. as well as IV antibiotic 2. Hypertension. On Coreg to 6.25 mg b.i.d. 3. Troponin leak and history of CAD and prior non-ST elevation myocardial infarction. EKG SR with LVH.Echocardiogram pending 4. End-stage renal disease, now on hemodialysis. Awaiting changing Aman to Perm Cath Monday 5. Pneumonia, fever and sepsis. COVID-19 was ruled out. Antibiotics per ID. 6. Dysphagia, status post G-tube placement. GALLO RN Subjective Subjective Tunneled HD catheter is postponed to Monday. Remained in sinus tach 100 Objective Last 24 Hour Vital Signs Date Time Temp Pulse Resp B/P (MAP) Pulse Ox O2 Delivery O2 Flow Rate FiO2 07/27/19 12:00 97.9 95 18 118/57 (77) 100 07/27/19 12:00 96 07/27/19 09:00 106 92/50 07/27/19 08:29 Nasal Cannula 2.0 07/27/19 08:00 98.2 106 20 92/50 (64) 97 07/27/19 08:00 98 07/27/19 04:00 96 07/27/19 04:00 98.7 98 18 109/50 (69) 98 07/27/19 00:00 97 07/27/19 00:00 98.5 97 22 96/50 (65) 98 07/26/19 22:58 102 143/63 07/26/19 21:00 Nasal Cannula 2.0 07/26/19 20:00 98.5 102 22 143/63 (89) 98 07/26/19 20:00 105 07/26/19 16:00 99.0 94 22 120/60 (80) 98 07/26/19 16:00 93 Intake and Output 07/26/19 07/27/19 19:00 07:00 Intake Total 158 ml Output Total 200 ml Balance 158 ml -200 ml Free Water 120 ml Tube Feeding 38 ml Stool Total 200 ml Laboratory Tests Test 07/27/19 07:20 07/27/19 07:30 White Blood Count 16.0 K/UL (4.8-10.8) H Red Blood Count 2.82 M/UL (4.20-5.40) L Hemoglobin 8.4 G/DL (12.0-16.0) L Hematocrit 25.7 % (37.0-47.0) L Mean Corpuscular Volume 91 FL (80-99) Mean Corpuscular Hemoglobin 29.8 PG (27.0-31.0) Mean Corpuscular Hemoglobin Concent 32.7 G/DL (32.0-36.0) Red Cell Distribution Width 13.0 % (11.6-14.8) Platelet Count 396 K/UL (150-450) Mean Platelet Volume 7.8 FL (6.5-10.1) Neutrophils (%) (Auto) 75.7 % (45.0-75.0) H Lymphocytes (%) (Auto) 15.6 % (20.0-45.0) L Monocytes (%) (Auto) 7.4 % (1.0-10.0) Eosinophils (%) (Auto) 0.9 % (0.0-3.0) Basophils (%) (Auto) 0.5 % (0.0-2.0) Sodium Level 142 MMOL/L (136-145) Potassium Level 3.6 MMOL/L (3.5-5.1) Chloride Level 98 MMOL/L (98-107) Carbon Dioxide Level 27 MMOL/L (21-32) Anion Gap 17 mmol/L (5-15) H Blood Urea Nitrogen 112 mg/dL (7-18) H Creatinine 5.6 MG/DL (0.55-1.30) H Estimat Glomerular Filtration Rate 8.6 mL/min (>60) Glucose Level 158 MG/DL (74-106) H Calcium Level 9.7 MG/DL (8.5-10.1) Objective HEAD AND NECK: No JVD. LUNGS: Coarse rhonchi. CARDIOVASCULAR:Regular S1 and S2, tachycardic. ABDOMEN: Soft. EXTREMITIES: No pitting edema. GENITOURINARY: The patient has Aman catheter in the groin for dialysis. Cristopher Osman MD Jul 27, 2019 15:16
[2019-07-27 16:00] VITALS: BP 122/50
[2019-07-27] MEDS ORDERED: Amikacin Rx to dose MISC PRN (16:30)
--- NOTE | 2019-07-27 16:34 | Infectious Diseases Prog Note ---
Assessment/Plan Assessment/Plan ASSESSMENT AND PLAN: 1. sepsis, fevers, leukocytosis, ? pna, diarrhea, covid-19 test negative, ? right hip wound infection pseudomonas bacteremia/line infection, pseudomonas pna leukocytosis worse - ? etiology - zosyn, add amikacin and vancomycin - double pseudomonas coverage and mrsa coverage and wound coverage - hd line removed - new hd line placed - wound care per surgery and protocol - monitor labs, f/u cultures and c.diff. testing - monitor chest x-ray - d/w Dr. Brewster - d/w RN - please see multiple orders - wound care per protocol 2. The patient has end-stage renal disease, on hemodialysis and PermCath. 3. Skin care protocol. 4. Anemia. 5. The patient has history of dysphagia, on G-tube. 6. Aspiration risk. 7. Hypertension. 8. Altered mental status. 9. History of Strep viridans bacteremia. 10. Hypertension, treatment per primary care team. 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 12. History of non-STEMI and CAD. 13. History of rhabdomyolysis. 14. History of acute renal failure, on dialysis. 15. Coronary artery disease. 16. No known drug allergies. 17. Social history negative. 18. Family history noncontributory. 19. MAR was noted. 20. Case discussed with RN. 21. Isolation in the acute care. 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 Subjective Constitutional: Denies: fever, fatigue Respiratory: Denies: shortness of breath Cardiovascular: Denies: chest pain Gastrointestinal/Abdominal: Reports: diarrhea; Denies: nausea, vomiting Neurologic: Reports: weakness, other - opens eyes Psychiatric: Denies: depression Hematologic: Denies: bleeding Musculoskeletal: Denies: pain Allergies: Coded Allergies: No Known Allergies (Unverified , 06/24/19) Objective Vital Signs Last 24 Hour Vital Signs Date Time Temp Pulse Resp B/P (MAP) Pulse Ox O2 Delivery O2 Flow Rate FiO2 07/27/19 12:00 97.9 95 18 118/57 (77) 100 07/27/19 12:00 96 07/27/19 09:00 106 92/50 07/27/19 08:29 Nasal Cannula 2.0 07/27/19 08:00 98.2 106 20 92/50 (64) 97 07/27/19 08:00 98 07/27/19 04:00 96 07/27/19 04:00 98.7 98 18 109/50 (69) 98 07/27/19 00:00 97 07/27/19 00:00 98.5 97 22 96/50 (65) 98 07/26/19 22:58 102 143/63 07/26/19 21:00 Nasal Cannula 2.0 07/26/19 20:00 98.5 102 22 143/63 (89) 98 07/26/19 20:00 105 Height (Feet): 5 Height (Inches): 3.00 Weight (Pounds): 139 General Appearance: no acute distress HEENT: normocephalic, atraumatic, anicteric Respiratory/Chest: lungs clear, normal breath sounds, no respiratory distress Cardiovascular: normal rate, regular rhythm, no gallop/murmur Abdomen: normal bowel sounds, soft, non tender, no organomegaly, non distended Genitourinary: other - no hargrove Extremities: no cyanosis Skin: no rash, ulcers - wounds - covered 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 Findings: Pulmonary vessel congestion noted. Heart is enlarged. Interstitial edema is mild. Bones are osteopenic. IMPRESSION: Mild interstitial edema Chest x-ray - 07/19/19 - Impression: Worsening of aeration with increasing haziness of the pulmonary vascularity and development of hazy perihilar airspace opacities. Findings likely related to fluid overload/CHF. Superimposed infection however not excluded. Clinical correlation and follow-up recommended. CT scan of abdomen and pelvis: IMPRESSION: Limited exam without intravenous contrast. Within these limitations: * Patchy opacities in the lung bases, left greater than right. Findings may related to subsegmental atelectasis. Possibility of pneumonia however not excluded. * Extensive coronary arterial calcifications. * Dialysis catheter partially visualized. * Indwelling gastrostomy and rectal tubes. * No intraabdominal fluid collection/abscess. * Interval removal of Hargrove catheter. Bladder is mildly distended but otherwise unremarkable. * Extensive atherosclerotic vascular calcifications. * Irregularity the skin overlying the inferior aspect of the sacrum. Correlate clinically to exclude the possibility of sacral decubitus ulcer. No subcutaneous fluid collection/abscess. * Osteopenia and severe degenerative changes of the spine with unchanged vertebral body compression deformities. * 1.5 cm cystic l Chest x-ray - 07/22/19 - Procedure: XRAY Chest 1v Indication: Dyspnea Comparison: 07/19/2019 A single view chest radiograph was obtained. Findings: No definite infiltrate or pulmonary vascular congestion identified. Right permacath was removed. The heart is enlarged. The aorta is mildly enlarged consistent with atherosclerotic vascular disease. The bones are osteopenic. There are thoracic vertebral enthesophytes at multiple levels. Impression: No acute disease Microbiology Date/Time Source Procedure Growth Status 07/22/19 03:20 Blood Blood Culture - Final NO GROWTH AFTER 5 DAYS Complete 07/20/19 04:30 Sputum Induced Gram Stain - Final Complete 07/20/19 04:30 Sputum Culture - Final Pseudomonas Aeruginosa Melanie Albicans Usual Respiratory Cristina Complete 07/17/19 07:00 Stool Clostridium difficile Toxin Assay - Final Complete 07/20/19 13:18 Catheter Site Catheter Tip Culture - Final NO GROWTH AFTER 4 DAYS Complete Laboratory Tests Test 07/27/19 07:20 07/27/19 07:30 White Blood Count 16.0 K/UL (4.8-10.8) H Red Blood Count 2.82 M/UL (4.20-5.40) L Hemoglobin 8.4 G/DL (12.0-16.0) L Hematocrit 25.7 % (37.0-47.0) L Mean Corpuscular Volume 91 FL (80-99) Mean Corpuscular Hemoglobin 29.8 PG (27.0-31.0) Mean Corpuscular Hemoglobin Concent 32.7 G/DL (32.0-36.0) Red Cell Distribution Width 13.0 % (11.6-14.8) Platelet Count 396 K/UL (150-450) Mean Platelet Volume 7.8 FL (6.5-10.1) Neutrophils (%) (Auto) 75.7 % (45.0-75.0) H Lymphocytes (%) (Auto) 15.6 % (20.0-45.0) L Monocytes (%) (Auto) 7.4 % (1.0-10.0) Eosinophils (%) (Auto) 0.9 % (0.0-3.0) Basophils (%) (Auto) 0.5 % (0.0-2.0) Sodium Level 142 MMOL/L (136-145) Potassium Level 3.6 MMOL/L (3.5-5.1) Chloride Level 98 MMOL/L (98-107) Carbon Dioxide Level 27 MMOL/L (21-32) Anion Gap 17 mmol/L (5-15) H Blood Urea Nitrogen 112 mg/dL (7-18) H Creatinine 5.6 MG/DL (0.55-1.30) H Estimat Glomerular Filtration Rate 8.6 mL/min (>60) Glucose Level 158 MG/DL (74-106) H Calcium Level 9.7 MG/DL (8.5-10.1) Current Medications Medications (Trade) Dose Ordered Sig/Joan Route PRN Reason Start Time Stop Time Status Last Admin Dose Admin Acetaminophen (Tylenol) 650 mg Q4H PRN ORAL Mild Pain (Pain Scale 1-3) 07/14/19 14:45 08/13/19 14:44 07/22/19 08:45 Atorvastatin Calcium (Lipitor) 10 mg QHS GT 07/14/19 21:00 10/12/19 20:59 07/26/19 22:51 Carvedilol (Coreg) 3.125 mg EVERY 12 HOURS ORAL 07/27/19 21:00 08/18/19 08:59 Chlorhexidine Gluconate (Cari-Hex 2%) 1 applic DAILY@1999 TOPIC 07/15/19 20:00 10/13/19 19:59 07/26/19 22:51 Dextrose (Dextrose 50%) 25 ml Q30M PRN IV Hypoglycemia 07/14/19 14:45 10/12/19 14:44 Dextrose (Dextrose 50%) 50 ml Q30M PRN IV Hypoglycemia 07/14/19 14:45 10/12/19 14:44 Epoetin Dion (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)) 4,000 unit MON-MON-MON SUBQ 07/24/19 21:00 10/22/19 20:59 07/26/19 21:00 Heparin Sodium (Porcine) (Heparin 5000 units/ml) 5,000 units EVERY 12 HOURS SUBQ 07/14/19 21:00 08/28/19 20:59 07/26/19 22:58 Hydralazine HCl (Apresoline) 10 mg Q4H PRN IV For High Blood Pressure 07/14/19 15:30 10/12/19 15:29 Lactobacillus Acidophilus (Culturelle) 1 tab Q12HR GT 07/15/19 12:14 10/13/19 12:13 07/27/19 09:48 Loperamide HCl (Imodium) 2 mg Q6H PRN NG Diarrhea 07/18/19 09:00 08/17/19 08:59 07/18/19 10:37 Ondansetron HCl (Zofran) 4 mg Q6H PRN IVP Nausea & Vomiting 07/14/19 14:45 08/13/19 14:44 Piperacillin Sod/ Tazobactam Sod 3.375 gm/Dextrose 110 ml @ 27.5 mls/hr EVERY 12 HOURS IVPB 07/24/19 21:00 07/29/19 20:59 07/27/19 09:48 Ana Rosado MD Jul 27, 2019 16:34
--- NOTE | 2019-07-27 17:36 | Urology Progress Note ---
Assessment/Plan Status: stable Assessment/Plan: 1. Hematuria, which was previously gross and now microscopic. 2. End-stage renal disease, on hemodialysis. 3. Urinary retention history, now with incontinence. 4. Probable neurogenic bladder. 5. Pyuria. 6. Proteinuria. 7. History of acute kidney injury. 9. Nephrolithiasis. 8. Sepsis? monitor clinically abx as ordered, per ID I+O cath PRN cysto later HD per branch specialist Subjective Allergies: Coded Allergies: No Known Allergies (Unverified , 06/24/19) Subjective all noted, urinary incontinence, urine reported grossly non-bloody Objective Last 24 Hour Vital Signs Date Time Temp Pulse Resp B/P (MAP) Pulse Ox O2 Delivery O2 Flow Rate FiO2 07/27/19 16:00 97.2 93 122/50 (74) 07/27/19 16:00 96 07/27/19 12:00 97.9 95 18 118/57 (77) 100 07/27/19 12:00 96 07/27/19 09:00 106 92/50 07/27/19 08:29 Nasal Cannula 2.0 07/27/19 08:00 98.2 106 20 92/50 (64) 97 07/27/19 08:00 98 07/27/19 04:00 96 07/27/19 04:00 98.7 98 18 109/50 (69) 98 07/27/19 00:00 97 07/27/19 00:00 98.5 97 22 96/50 (65) 98 07/26/19 22:58 102 143/63 07/26/19 21:00 Nasal Cannula 2.0 07/26/19 20:00 98.5 102 22 143/63 (89) 98 07/26/19 20:00 105 Intake and Output 07/26/19 07/27/19 19:00 07:00 Intake Total 158 ml Output Total 200 ml Balance 158 ml -200 ml Free Water 120 ml Tube Feeding 38 ml Stool Total 200 ml Microbiology Date/Time Source Procedure Growth Status 07/22/19 03:20 Blood Blood Culture - Final NO GROWTH AFTER 5 DAYS Complete 07/20/19 04:30 Sputum Induced Gram Stain - Final Complete 07/20/19 04:30 Sputum Culture - Final Pseudomonas Aeruginosa Melanie Albicans Usual Respiratory Cristina Complete 07/17/19 07:00 Stool Clostridium difficile Toxin Assay - Final Complete 07/20/19 13:18 Catheter Site Catheter Tip Culture - Final NO GROWTH AFTER 4 DAYS Complete Current Medications Medications (Trade) Dose Ordered Sig/Joan Route PRN Reason Start Time Stop Time Status Last Admin Dose Admin Acetaminophen (Tylenol) 650 mg Q4H PRN ORAL Mild Pain (Pain Scale 1-3) 07/14/19 14:45 08/13/19 14:44 07/22/19 08:45 Amikacin Protocol (Amikacin pharmacy to dose) 1 ea DAILY PRN MISC Per rx protocol 07/27/19 16:30 08/26/19 16:29 Amikacin Sulfate 500 mg/Sodium Chloride 112 ml @ 112 mls/hr ONCE ONCE IV 07/27/19 18:00 07/27/19 18:59 Atorvastatin Calcium (Lipitor) 10 mg QHS GT 07/14/19 21:00 10/12/19 20:59 07/26/19 22:51 Carvedilol (Coreg) 3.125 mg EVERY 12 HOURS ORAL 07/27/19 21:00 08/18/19 08:59 Chlorhexidine Gluconate (Cari-Hex 2%) 1 applic DAILY@2000 TOPIC 07/15/19 20:00 10/13/19 19:59 07/26/19 22:51 Dextrose (Dextrose 50%) 25 ml Q30M PRN IV Hypoglycemia 07/14/19 14:45 10/12/19 14:44 Dextrose (Dextrose 50%) 50 ml Q30M PRN IV Hypoglycemia 07/14/19 14:45 10/12/19 14:44 Epoetin Dion (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)) 4,000 unit MON-MON-MON SUBQ 07/24/19 21:00 10/22/19 20:59 07/26/19 21:00 Heparin Sodium (Porcine) (Heparin 5000 units/ml) 5,000 units EVERY 12 HOURS SUBQ 07/14/19 21:00 08/28/19 20:59 07/26/19 22:58 Hydralazine HCl (Apresoline) 10 mg Q4H PRN IV For High Blood Pressure 07/14/19 15:30 10/12/19 15:29 Lactobacillus Acidophilus (Culturelle) 1 tab Q12HR GT 07/15/19 12:14 10/13/19 12:13 07/27/19 09:48 Loperamide HCl (Imodium) 2 mg Q6H PRN NG Diarrhea 07/18/19 09:00 08/17/19 08:59 07/18/19 10:37 Ondansetron HCl (Zofran) 4 mg Q6H PRN IVP Nausea & Vomiting 07/14/19 14:45 08/13/19 14:44 Piperacillin Sod/ Tazobactam Sod 3.375 gm/Dextrose 110 ml @ 27.5 mls/hr EVERY 12 HOURS IVPB 07/27/19 21:00 08/01/19 20:59 Vancomycin HCl (Vanco rx to dose) 1 ea DAILY PRN MISC Per rx protocol 07/27/19 16:30 08/26/19 16:29 Vancomycin/Sodium Chloride 275 ml @ 183.333 mls/hr ONCE ONCE IVPB 07/27/19 18:00 07/27/19 19:29 Laboratory Tests 07/27/19 07:20: White Blood Count 16.0H, Red Blood Count 2.82L, Hemoglobin 8.4L, Hematocrit 25.7L, Mean Corpuscular Volume 91, Mean Corpuscular Hemoglobin 29.8, Mean Corpuscular Hemoglobin Concent 32.7, Red Cell Distribution Width 13.0, Platelet Count 396, Mean Platelet Volume 7.8, Neutrophils (%) (Auto) 75.7H, Lymphocytes ( %) (Auto) 15.6L, Monocytes (%) (Auto) 7.4, Eosinophils (%) (Auto) 0.9, Basophils (%) (Auto) 0.5 07/27/19 07:30: Sodium Level 142, Potassium Level 3.6, Chloride Level 98, Carbon Dioxide Level 27, Anion Gap 17H, Blood Urea Nitrogen 112H, Creatinine 5.6H, Estimat Glomerular Filtration Rate 8.6, Glucose Level 158H, Calcium Level 9.7 Height (Feet): 5 Height (Inches): 3.00 Weight (Pounds): [address] A/P (07/18) noted Omar Mckoy MD Jul 27, 2019 17:36
[2019-07-27] MEDS ORDERED: Amikacin 500 MG in NS 110 ML IV ONE (18:00)
[2019-07-27] MEDS ORDERED: Vancomycin 1.25gm/NS Premix IVPB ONE (18:00)
--- NOTE | 2019-07-27 19:19 | NUR ---
NURSE NOTES: Received pt in bed, sleeping. No s/s of distress/pain at this moment. IV on L hand 22g noted. R femoral cath noted. Rectal tube noted. Side rails x 2. Bed in the lowest, locked, and alarm on. Call light within reach. Will continue to monitor Addendum: 07/27/19 at 1921 by JAY MCDONALD RN wrong time
--- NOTE | 2019-07-27 19:19 | NUR ---
HAND-OFF: Report given to HYUN Gonzalez.
--- NOTE | 2019-07-27 19:31 | NUR ---
NURSE NOTES: RECEIVED REPORT FROM HYUN FIGUEROA. PATIENT AWAKE IN BED, VERBALLY RESPONSIVE TO VOICE AND TACTILE STIMULI. PATIENT ALERT, ORIENTED TO NAME ONLY. PATIENT POSITIONED ON LEFT SIDE WITH NO COMPLAINTS OF PAIN OR DISCOMFORT AT THIS TIME. BREATHING IS EVEN AND UNLABORED ON 2L VIA NASAL CANNULA- NO S/SX OF DISTRESS NOTED. IV SITE ON LEFT HAND ASYMPTOMATIC, PATENT AND INTACT. NO S/SX OF BLEEDING NOTED AT RIGHT FEMORAL CHASITY CATH SITE. G-TUBE PATENT, RUNNING NEPHRO 1.8 AT 38 ML/HR. ON P200 MATTRESS FOR WOUND MANAGEMENT. BED LOCKED AND IN LOWEST POSITION. SIDERAILS UP X 2. FALL AND ASPIRATION PRECAUTIONS IMPLEMENTED. CALL LIGHT WITHIN REACH. WILL CONTINUE TO MONITOR.
[2019-07-27 20:00] VITALS: BP 142/78
[2019-07-27] MEDS: Dyna-Hex 2% Top Sol 2oz TOPIC SCH (20:26)
--- NOTE | 2019-07-27 20:28 | Nephrology Progress Note ---
Assessment/Plan Plan #Acute renal failure recent started on HD in 06/2018- #Sepsis #Dementia #HTN #elevated troponin #Dysphagia s/p PEG #urinary retention - permacath removed 07/19 - WBC uptrending again --> temp HD catheter 07/22 --> next HD monday on low sodium bath - monitor BMP closley - agree with FWF 100 q6 - continue lasix 80 IV daily -> switch to oral on DC - cardiology eval - monitor UOP---> increasing - urology eval - continue antibiotics per ID - coreg 3.125mg BID - follow repeat blood cx- growing pseudomonas - check iron panel, ferritin-> ferritin supersaturated - continue epogen 4K TIW - monitor BMP, mag and phos daily for now Subjective Subjective blood cx growing pseudomona temp HD catheter 07/22 permcath removed 07/19 BP stable breathing stable on NC WBC uptrending again hold off on permacath placement Objective Objective Last 24 Hour Vital Signs Date Time Temp Pulse Resp B/P (MAP) Pulse Ox O2 Delivery O2 Flow Rate FiO2 07/27/19 16:00 97.2 93 122/50 (74) 07/27/19 16:00 96 07/27/19 12:00 97.9 95 18 118/57 (77) 100 07/27/19 12:00 96 07/27/19 09:00 106 92/50 07/27/19 08:29 Nasal Cannula 2.0 07/27/19 08:00 98.2 106 20 92/50 (64) 97 07/27/19 08:00 98 07/27/19 04:00 96 07/27/19 04:00 98.7 98 18 109/50 (69) 98 07/27/19 00:00 97 07/27/19 00:00 98.5 97 22 96/50 (65) 98 07/26/19 22:58 102 143/63 07/26/19 21:00 Nasal Cannula 2.0 Intake and Output 07/26/19 07/27/19 19:00 07:00 Intake Total 158 ml Output Total 200 ml Balance 158 ml -200 ml Free Water 120 ml Tube Feeding 38 ml Stool Total 200 ml Laboratory Tests 07/27/19 07:20: White Blood Count 16.0H, Red Blood Count 2.82L, Hemoglobin 8.4L, Hematocrit 25.7L, Mean Corpuscular Volume 91, Mean Corpuscular Hemoglobin 29.8, Mean Corpuscular Hemoglobin Concent 32.7, Red Cell Distribution Width 13.0, Platelet Count 396, Mean Platelet Volume 7.8, Neutrophils (%) (Auto) 75.7H, Lymphocytes ( %) (Auto) 15.6L, Monocytes (%) (Auto) 7.4, Eosinophils (%) (Auto) 0.9, Basophils (%) (Auto) 0.5 07/27/19 07:30: Sodium Level 142, Potassium Level 3.6, Chloride Level 98, Carbon Dioxide Level 27, Anion Gap 17H, Blood Urea Nitrogen 112H, Creatinine 5.6H, Estimat Glomerular Filtration Rate 8.6, Glucose Level 158H, Calcium Level 9.7 Height (Feet): 5 Height (Inches): 3.00 Weight (Pounds): 139 Objective General: NAD, A&O x 1, self only HEENT: NCAT, EOMi, PEERLA, nares patent and no symmetrical, no tonsillar exudates, mucous membranes moist CV: RRR, no murmurs, rubs, or gallops Pulm: CTAB, No wheezes, rhonchi, or rales, no accessory muscle usage or conversational dyspnea GI: Soft, nontender, nondistended, bowel sounds present, PEG tube in place, C/D/ I Neuro: CN 2-12 grossly intact bilaterally, no focal signs. Ext: No lower extremity edema bilaterally, LE contracted bilaterally Skin: Multiple pressure ulcers noted on hip/heels Lymph: No lymphadenopathy in upper extremity and lower extremity Rory Oconnor M.D. Jul 27, 2019 20:28
--- NOTE | 2019-07-27 21:01 | Neurology Progress Note ---
Interim History Interim History ROS Limited/Unobtainable: Yes - minimally communicative at b/l Interim History somnolent, covid neg Objective Physical Exam Last Vital Signs Date Time Temp Pulse Resp B/P (MAP) Pulse Ox O2 Delivery O2 Flow Rate FiO2 07/27/19 20:27 120 142/78 07/27/19 16:00 97.2 07/27/19 12:00 18 100 07/27/19 08:29 Nasal Cannula 2.0 Laboratory Tests Test 07/27/19 07:20 07/27/19 07:30 White Blood Count 16.0 K/UL (4.8-10.8) H Red Blood Count 2.82 M/UL (4.20-5.40) L Hemoglobin 8.4 G/DL (12.0-16.0) L Hematocrit 25.7 % (37.0-47.0) L Mean Corpuscular Volume 91 FL (80-99) Mean Corpuscular Hemoglobin 29.8 PG (27.0-31.0) Mean Corpuscular Hemoglobin Concent 32.7 G/DL (32.0-36.0) Red Cell Distribution Width 13.0 % (11.6-14.8) Platelet Count 396 K/UL (150-450) Mean Platelet Volume 7.8 FL (6.5-10.1) Neutrophils (%) (Auto) 75.7 % (45.0-75.0) H Lymphocytes (%) (Auto) 15.6 % (20.0-45.0) L Monocytes (%) (Auto) 7.4 % (1.0-10.0) Eosinophils (%) (Auto) 0.9 % (0.0-3.0) Basophils (%) (Auto) 0.5 % (0.0-2.0) Sodium Level 142 MMOL/L (136-145) Potassium Level 3.6 MMOL/L (3.5-5.1) Chloride Level 98 MMOL/L (98-107) Carbon Dioxide Level 27 MMOL/L (21-32) Anion Gap 17 mmol/L (5-15) H Blood Urea Nitrogen 112 mg/dL (7-18) H Creatinine 5.6 MG/DL (0.55-1.30) H Estimat Glomerular Filtration Rate 8.6 mL/min (>60) Glucose Level 158 MG/DL (74-106) H Calcium Level 9.7 MG/DL (8.5-10.1) Head: normocophalic Neck: no rigidity EENT: benign Neurologic Exam Mental Status: awake Cranial Nerves III, IV, : PERRLA Objective Wakes up, tracks with eyes, tell me her name, withdraws all 4 Impression/Recommendations Problems: (1) Decubitus skin ulcer (2) Fever (3) Rhabdomyolysis (4) Elevated troponin (5) KAREN (acute kidney injury) (6) Fever (7) Elevated brain natriuretic peptide (BNP) level (8) ESRD (end stage renal disease) on dialysis (9) ESRD (end stage renal disease) on dialysis (10) Pressure ulcer (11) Protein calorie malnutrition (12) Dysphagia Status: stable Diagnostic Impression Acute encephalopathy, improved baseline dementia Sepsis Monitor neuro exam for improvement cont atb neg covid Delirium precautions Sushil Stevenson MD Jul 27, 2019 21:00
--- NOTE | 2019-07-27 23:19 | NUR ---
NURSE NOTES: DRESSING OVER CHASITY CATHETER NOTED TO BE PARTIALLY SATURATED WITH BLOOD. DRESSING REINFORCED. INFORMED DR. GALVEZ. PER MD, HE WILL EXAMINE PATIENT IN THE MORNING. IN THE MEANTIME, CHANGE DRESSING NEEDED. ADDITIONALLY, PER MD OKAY TO APPLY PRESSURE DRESSING OR BAG OF NS ON TOP TO PREVENT FURTHER BLEEDING.
[2019-07-28] VITALS: BP 108/56
[2019-07-28 04:00] VITALS: BP 118/65
--- NOTE | 2019-07-28 07:24 | NUR ---
HAND-OFF: Report given TO HYUN KIRBY. PLAN OF CARE ENDORSED.
--- NOTE | 2019-07-28 07:26 | NUR ---
NURSE NOTES: Patient sleeping, respirations 16 breaths per minute, oxygen at 2 liters nasal cannula, G-tube running Nephro 1.8 @ 38 cc/hour, bed in lowest position, call light within reach, in no apparent distress.
[2019-07-28 08:00] VITALS: BP 108/58
[2019-07-28] MEDS: Heparin 5000 units/ml inj SUBQ SCH ×2 (08:26→21:00)
[2019-07-28] MEDS: Lactobacillus-GG tablet GT SCH ×2 (08:37→22:14)
[2019-07-28] MEDS: Piperacillin/Tazobactam 3.375 GM in D5W 110 ML IVPB SCH ×2 (08:37→22:14)
[2019-07-28 08:58] LABS: MEAN CORPUSCULAR VOLUME 92 FL (80-99); PLATELET COUNT 431 K/UL (150-450); RED BLOOD COUNT 3.04 M/UL (4.20-5.40); RED CELL DISTRIBUTION WIDTH 13.2 % (11.6-14.8); WHITE BLOOD COUNT 19.6 K/UL (4.8-10.8)
[2019-07-28 09:01] LABS: ALANINE AMINOTRANSFERASE 22 U/L (12-78); ALBUMIN 4.3 G/DL (3.4-5.0); ALBUMIN/GLOBULIN RATIO 1.1 (1.0-2.7); ALKALINE PHOSPHATASE 76 U/L (46-116); ANION GAP 18 mmol/L (5-15); ASPARTATE AMINO TRANSFERASE 27 U/L (15-37); BLOOD UREA NITROGEN 72 mg/dL (7-18); CALCIUM 10.2 MG/DL (8.5-10.1); CARBON DIOXIDE 27 MMOL/L (21-32); CHLORIDE 99 MMOL/L (98-107); CREATININE 3.7 MG/DL (0.55-1.30); POTASSIUM 3.4 MMOL/L (3.5-5.1); SODIUM 144 MMOL/L (136-145)
--- NOTE | 2019-07-28 09:05 | Diagnostic Imaging Report ---
EXAM: XR Chest, 1 View CLINICAL HISTORY: INFECT TECHNIQUE: Frontal view of the chest. COMPARISON: Chest x-rays dated 07/14/19, 07/06/19, 07/01/19. FINDINGS: Lungs: Mild pulmonary vascular congestion, improved compared to the prior exam. No new focal consolidation. Pleural space: Unremarkable. The costophrenic angles are sharp. No visible pneumothorax. Heart: Unremarkable. No cardiomegaly. Mediastinum: Unremarkable. Bones/joints: Unremarkable. Vasculature: Atherosclerotic calcifications are noted within the aortic arch. Tubes, lines and devices: Interval removal of the right IJ central venous catheter. Telemetry leads overlie the thorax. IMPRESSION: Mild pulmonary vascular congestion, improved compared to the prior exam.
--- NOTE | 2019-07-28 09:46 | General Progress Note ---
Assessment/Plan Status: stable Assessment/Plan: 89-year-old female with PMH of acute renal failure, s/p right chest wall permacath on HD, dysphasia s/p PEG, multiple pressure wounds, HTN, h/o AMS was recently discharged from this facility for KAREN/rhabdo, unwitnessed fall, was sent to long-term and returned here due to fevers. Patient was admitted for persistent fevers and for sepsis/COVID 19 rule out. ED course: BMP 8000, troponin 0 0.347, patient given for septic work-up and will be admitted for further treatment. #Sepsis #Pseudomonas bacteremia #Pseudomonas PNA #leukocytosis #Diarrhea #ESRD on HD -continue inpatient level of care -COVID-19 NEGATIVE, Droplet precautions d/c -c diff negative (07/16 and 07/25) -Imodium prn -CT abd/pelvis results reviewed -Permacath removed 07/19, line Cx negative -s/p temp cath right femoral 07/22 -07/25 BCx NGTD -CXR 07/27: mild pulmonary congestion, improved compared to previous -ID following: Zosyn, amikacin, vanc, micofungin -Nephro following: hold off on David catheter for now given rise in WBC, plan for HD monday -UCx ordered but not done, pt anuiric, given negative BCx and rising WBC, will obtain bladder scan, if residual will straight cath w/UA/UCx reflex #Anemia of chronic dx -cont. to monitor for signs/symptoms of bleeding -check iron panel, ferritin-> ferritin supersaturated -epogen 4K TIW #Hypernatremia - resolved #Hyperkalemia - resolved #Hypokalemia - resolved -potassium replaced, ctm, replace PRN -FWF 100 cc q6 -Nephro following #HTN #elevated troponin #BNP elevated #Sinus tachycardia -trops stable 0.254, 0.240, 0.248 >>0.072 -likely due to demand ischemia, ESRD, sepsis -ASA, statin -off lasix for now given low bp -hydralazine PRN for SBP >160 -Carvedilol 3.25 mg BID -echo pending -Cardio following, reccs appreciated #Hematuria #Possible Urinary retention. #Possible neurogenic bladder. -UA w/ evidence of RBCs, 4+ blood -Urology recs appreciated #Dysphagia -s/p PEG -tolerating TF -Dietary and GI following, recs appreciated -d/w ST, pt currently unable to manage PO, recommends pt to f/u w/ST as o/p for o/p video swallow once more stable #Dementia -stable -neuro following, appreciate recs #Pressure wounds -Cont. wound care DVT ppx - heparin sc Time spent on encounter: 35 mins, >50% on counseling, coordination of care. D/w Dr. Rosado. Subjective ROS Limited/Unobtainable: Yes - pt minimally communicative Allergies: Coded Allergies: No Known Allergies (Unverified , 06/24/19) Subjective F/u for pseudomonas HCAP/bacteremia, fevers. COVID NEGATIVE. Acute renal failure. Worsening WBC, no fevers. At b/l mentation, appears comfortable. Objective Last 24 Hour Vital Signs Date Time Temp Pulse Resp B/P (MAP) Pulse Ox O2 Delivery O2 Flow Rate FiO2 07/28/19 08:26 95 108/58 07/28/19 08:00 97.3 95 17 108/58 (75) 98 07/28/19 04:00 96 07/28/19 04:00 98.4 96 17 118/65 (82) 99 07/28/19 00:00 97 07/28/19 00:00 97.0 98 19 108/56 (73) 91 07/27/19 21:00 Nasal Cannula 2.0 07/27/19 20:27 120 142/78 07/27/19 20:00 98 07/27/19 20:00 97.3 100 142/78 (99) 07/27/19 16:00 97.2 93 122/50 (74) 07/27/19 16:00 96 07/27/19 12:00 97.9 95 18 118/57 (77) 100 07/27/19 12:00 96 Intake and Output 07/27/19 07/28/19 19:00 07:00 Intake Total 38 ml 618 ml Output Total 1000 ml 800 ml Balance -962 ml -182 ml Free Water 200 ml Tube Feeding 38 ml 418 ml Stool Total 800 ml Hemodialysis UF 1000 ml Laboratory Tests 07/28/19 06:55: White Blood Count 19.6H, Red Blood Count 3.04L, Hemoglobin 9.0L, Hematocrit 28.0L, Mean Corpuscular Volume 92, Mean Corpuscular Hemoglobin 29.7, Mean Corpuscular Hemoglobin Concent 32.2, Red Cell Distribution Width 13.2, Platelet Count 431, Mean Platelet Volume 8.4, Neutrophils (%) (Auto) , Lymphocytes (%) ( Auto) , Monocytes (%) (Auto) , Eosinophils (%) (Auto) , Basophils (%) (Auto) , Neutrophils % (Manual) [Pending], Lymphocytes % (Manual) [Pending], Platelet Estimate [Pending], Platelet Morphology [Pending], Prothrombin Time 11.0, Prothromb Time International Ratio 1.0, Activated Partial Thromboplast Time 29, Sodium Level 144, Potassium Level 3.4L, Chloride Level 99, Carbon Dioxide Level 27, Anion Gap 18H, Blood Urea Nitrogen 72H, Creatinine 3.7H, Estimat Glomerular Filtration Rate 13.9, Glucose Level 129H, Calcium Level 10.2H, Total Bilirubin 1.0, Aspartate Amino Transf (AST/SGOT) 27, Alanine Aminotransferase (ALT/SGPT) 22, Alkaline Phosphatase 76, Total Protein 8.1, Albumin 4.3, Globulin 3.8, Albumin/Globulin Ratio 1.1 Height (Feet): 5 Height (Inches): 3.00 Weight (Pounds): 139 Objective General Appearance: appears comfortable, alert, awake, in NAD, AOx1 at b/l HEENT: NCAT, EOMi, dry MMM Cardiovascular: RRR Respiratory/Chest: lungs clear, normal breath sounds, no accessory muscle usage Abdomen: non tender, soft, +PEG c/d/i Ext: contracted b/l, no edema, right femoral line c/d/i Lisa Brewster M.D. Jul 28, 2019 09:46
--- NOTE | 2019-07-28 09:48 | Urology Progress Note ---
Assessment/Plan Status: stable Assessment/Plan: 1. Hematuria, which was previously gross and now microscopic. 2. End-stage renal disease, on hemodialysis. 3. Urinary retention history, now with incontinence. 4. Probable neurogenic bladder. 5. Pyuria. 6. Proteinuria. 7. History of acute kidney injury. 9. Nephrolithiasis. 8. Sepsis? monitor clinically abx as ordered, per ID I+O cath PRN cysto later HD per carburetor specialist f/u on last blood cx Subjective Allergies: Coded Allergies: No Known Allergies (Unverified , 06/24/19) Subjective all noted, urinary incontinence, urine reported grossly non-bloody Objective Last 24 Hour Vital Signs Date Time Temp Pulse Resp B/P (MAP) Pulse Ox O2 Delivery O2 Flow Rate FiO2 07/28/19 08:26 95 108/58 07/28/19 08:00 97.3 95 17 108/58 (75) 98 07/28/19 04:00 96 07/28/19 04:00 98.4 96 17 118/65 (82) 99 07/28/19 00:00 97 07/28/19 00:00 97.0 98 19 108/56 (73) 91 07/27/19 21:00 Nasal Cannula 2.0 07/27/19 20:27 120 142/78 07/27/19 20:00 98 07/27/19 20:00 97.3 100 142/78 (99) 07/27/19 16:00 97.2 93 122/50 (74) 07/27/19 16:00 96 07/27/19 12:00 97.9 95 18 118/57 (77) 100 07/27/19 12:00 96 Intake and Output 07/27/19 07/28/19 19:00 07:00 Intake Total 38 ml 618 ml Output Total 1000 ml 800 ml Balance -962 ml -182 ml Free Water 200 ml Tube Feeding 38 ml 418 ml Stool Total 800 ml Hemodialysis UF 1000 ml Microbiology Date/Time Source Procedure Growth Status 07/26/19 15:00 Blood Blood Culture - Preliminary NO GROWTH AFTER 24 HOURS Resulted 07/20/19 04:30 Sputum Induced Gram Stain - Final Complete 07/20/19 04:30 Sputum Culture - Final Pseudomonas Aeruginosa Melanie Albicans Usual Respiratory Cristina Complete 07/28/19 03:50 Stool Clostridium difficile Toxin Assay - Final Complete 07/20/19 13:18 Catheter Site Catheter Tip Culture - Final NO GROWTH AFTER 4 DAYS Complete Current Medications Medications (Trade) Dose Ordered Sig/Joan Route PRN Reason Start Time Stop Time Status Last Admin Dose Admin Acetaminophen (Tylenol) 650 mg Q4H PRN ORAL Mild Pain (Pain Scale 1-3) 07/14/19 14:45 08/13/19 14:44 07/22/19 08:45 Amikacin Protocol (Amikacin pharmacy to dose) 1 ea DAILY PRN MISC Per rx protocol 07/27/19 16:30 08/26/19 16:29 Atorvastatin Calcium (Lipitor) 10 mg QHS GT 07/14/19 21:00 10/12/19 20:59 07/27/19 20:26 Carvedilol (Coreg) 3.125 mg EVERY 12 HOURS ORAL 07/27/19 21:00 08/18/19 08:59 07/27/19 20:27 Chlorhexidine Gluconate (Cari-Hex 2%) 1 applic DAILY@1999 TOPIC 07/15/19 20:00 10/13/19 19:59 07/27/19 20:26 Dextrose (Dextrose 50%) 25 ml Q30M PRN IV Hypoglycemia 07/14/19 14:45 10/12/19 14:44 Dextrose (Dextrose 50%) 50 ml Q30M PRN IV Hypoglycemia 07/14/19 14:45 10/12/19 14:44 Epoetin Dion (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)) 4,000 unit MON-MON-MON SUBQ 07/24/19 21:00 10/22/19 20:59 07/26/19 21:00 Heparin Sodium (Porcine) (Heparin 5000 units/ml) 5,000 units EVERY 12 HOURS SUBQ 07/14/19 21:00 08/28/19 20:59 07/26/19 22:58 Hydralazine HCl (Apresoline) 10 mg Q4H PRN IV For High Blood Pressure 07/14/19 15:30 10/12/19 15:29 Lactobacillus Acidophilus (Culturelle) 1 tab Q12HR GT 07/15/19 12:14 10/13/19 12:13 07/28/19 08:37 Loperamide HCl (Imodium) 2 mg Q6H PRN NG Diarrhea 3/26/20 09:00 08/17/19 08:59 07/18/19 10:37 Ondansetron HCl (Zofran) 4 mg Q6H PRN IVP Nausea & Vomiting 07/14/19 14:45 08/13/19 14:44 Piperacillin Sod/ Tazobactam Sod 3.375 gm/Dextrose 110 ml @ 27.5 mls/hr EVERY 12 HOURS IVPB 07/27/19 21:00 08/01/19 20:59 07/28/19 08:37 Vancomycin HCl (Vanco rx to dose) 1 ea DAILY PRN MISC Per rx protocol 07/27/19 16:30 08/26/19 16:29 Laboratory Tests 07/28/19 06:55: White Blood Count 19.6H, Red Blood Count 3.04L, Hemoglobin 9.0L, Hematocrit 28.0L, Mean Corpuscular Volume 92, Mean Corpuscular Hemoglobin 29.7, Mean Corpuscular Hemoglobin Concent 32.2, Red Cell Distribution Width 13.2, Platelet Count 431, Mean Platelet Volume 8.4, Neutrophils (%) (Auto) , Lymphocytes (%) ( Auto) , Monocytes (%) (Auto) , Eosinophils (%) (Auto) , Basophils (%) (Auto) , Neutrophils % (Manual) [Pending], Lymphocytes % (Manual) [Pending], Platelet Estimate [Pending], Platelet Morphology [Pending], Prothrombin Time 11.0, Prothromb Time International Ratio 1.0, Activated Partial Thromboplast Time 29, Sodium Level 144, Potassium Level 3.4L, Chloride Level 99, Carbon Dioxide Level 27, Anion Gap 18H, Blood Urea Nitrogen 72H, Creatinine 3.7H, Estimat Glomerular Filtration Rate 13.9, Glucose Level 129H, Calcium Level 10.2H, Total Bilirubin 1.0, Aspartate Amino Transf (AST/SGOT) 27, Alanine Aminotransferase (ALT/SGPT) 22, Alkaline Phosphatase 76, Total Protein 8.1, Albumin 4.3, Globulin 3.8, Albumin/Globulin Ratio 1.1 Height (Feet): 5 Height (Inches): 3.00 Weight (Pounds): 139 Cardiovascular: systolic murmur Objective exam stable CT A/P (07/18) noted Omar Mckoy MD Jul 28, 2019 09:48
--- NOTE | 2019-07-28 10:19 | General Progress Note ---
Assessment/Plan Status: stable Assessment/Plan: 1. End-stage renal disease, on hemodialysis. 2. Anemia. 3. Dysphagia, status post G-tube placement. 4. Pneumonia. 5. Pancreatic cyst. 6. Hypertension. 7. Diarrhea 8. Leukocytosis C.diff>> neg imodium prn GTF abx per ID HD per nephrology repeal labs in am pending placement Subjective ROS Limited/Unobtainable: No Allergies: Coded Allergies: No Known Allergies (Unverified , 06/24/19) Objective Last 24 Hour Vital Signs Date Time Temp Pulse Resp B/P (MAP) Pulse Ox O2 Delivery O2 Flow Rate FiO2 07/28/19 08:26 95 108/58 07/28/19 08:00 97.3 95 17 108/58 (75) 98 07/28/19 04:00 96 07/28/19 04:00 98.4 96 17 118/65 (82) 99 07/28/19 00:00 97 07/28/19 00:00 97.0 98 19 108/56 (73) 91 07/27/19 21:00 Nasal Cannula 2.0 07/27/19 20:27 120 142/78 07/27/19 20:00 98 07/27/19 20:00 97.3 100 142/78 (99) 07/27/19 16:00 97.2 93 122/50 (74) 07/27/19 16:00 96 07/27/19 12:00 97.9 95 18 118/57 (77) 100 07/27/19 12:00 96 Intake and Output 07/27/19 07/28/19 19:00 07:00 Intake Total 38 ml 618 ml Output Total 1000 ml 800 ml Balance -962 ml -182 ml Free Water 200 ml Tube Feeding 38 ml 418 ml Stool Total 800 ml Hemodialysis UF 1000 ml Laboratory Tests 07/28/19 06:55: White Blood Count 19.6H, Red Blood Count 3.04L, Hemoglobin 9.0L, Hematocrit 28.0L, Mean Corpuscular Volume 92, Mean Corpuscular Hemoglobin 29.7, Mean Corpuscular Hemoglobin Concent 32.2, Red Cell Distribution Width 13.2, Platelet Count 431, Mean Platelet Volume 8.4, Neutrophils (%) (Auto) , Lymphocytes (%) ( Auto) , Monocytes (%) (Auto) , Eosinophils (%) (Auto) , Basophils (%) (Auto) , Neutrophils % (Manual) [Pending], Lymphocytes % (Manual) [Pending], Platelet Estimate [Pending], Platelet Morphology [Pending], Prothrombin Time 11.0, Prothromb Time International Ratio 1.0, Activated Partial Thromboplast Time 29, Sodium Level 144, Potassium Level 3.4L, Chloride Level 99, Carbon Dioxide Level 27, Anion Gap 18H, Blood Urea Nitrogen 72H, Creatinine 3.7H, Estimat Glomerular Filtration Rate 13.9, Glucose Level 129H, Calcium Level 10.2H, Total Bilirubin 1.0, Aspartate Amino Transf (AST/SGOT) 27, Alanine Aminotransferase (ALT/SGPT) 22, Alkaline Phosphatase 76, Total Protein 8.1, Albumin 4.3, Globulin 3.8, Albumin/Globulin Ratio 1.1 Height (Feet): 5 Height (Inches): 3.00 Weight (Pounds): 139 General Appearance: no apparent distress EENT: normal ENT inspection Neck: supple Cardiovascular: normal rate Respiratory/Chest: decreased breath sounds Abdomen: normal bowel sounds, non tender, soft Extremities: non-tender Jun Mena MD Jul 28, 2019 10:19
--- NOTE | 2019-07-28 10:26 | NUR ---
NURSE NOTES: Left message on voicemail of Dr. Ana Lynn reporting WBC=19.6.
--- NOTE | 2019-07-28 10:38 | NUR ---
NURSE NOTES: Dr. Ana Rosado returned call and placed telephone order for micafungin. Reported potassium=3.4, BUN=72, Creatinine=3.[address] Rory Oconnor and received order for 20 meq potassium via G-tube.
[2019-07-28] MEDS: Micafungin 100 MG in NS 110 ML IVPB SCH (11:47)
--- NOTE | 2019-07-28 11:56 | Nephrology Progress Note ---
Assessment/Plan Plan #Acute renal failure recent started on HD in 06/2018- #Sepsis #Dementia #HTN #elevated troponin #Dysphagia s/p PEG #urinary retention - permacath removed 07/19 - WBC uptrending again --> temp HD catheter 07/22 --> next HD monday on low sodium bath - monitor BMP closley - agree with FWF 100 q6 - continue lasix 80 IV daily -> switch to oral on DC - cardiology eval - monitor UOP---> increasing - urology eval - continue antibiotics per ID - coreg 3.125mg BID - follow repeat blood cx- growing pseudomonas - check iron panel, ferritin-> ferritin supersaturated - continue epogen 4K TIW - monitor BMP, mag and phos daily for now Subjective ROS Limited/Unobtainable: Yes Subjective blood cx growing pseudomona temp HD catheter 07/22 permcath removed 07/19 BP stable breathing stable on NC WBC uptrending again hold off on permacath placement K low today- being repleted Objective Objective Last 24 Hour Vital Signs Date Time Temp Pulse Resp B/P (MAP) Pulse Ox O2 Delivery O2 Flow Rate FiO2 07/28/19 09:00 Nasal Cannula 2.0 07/28/19 08:26 95 108/58 07/28/19 08:00 96 07/28/19 08:00 97.3 95 17 108/58 (75) 98 07/28/19 04:00 96 07/28/19 04:00 98.4 96 17 118/65 (82) 99 07/28/19 00:00 97 07/28/19 00:00 97.0 98 19 108/56 (73) 91 07/27/19 21:00 Nasal Cannula 2.0 07/27/19 20:27 120 142/78 07/27/19 20:00 98 07/27/19 20:00 97.3 100 142/78 (99) 07/27/19 16:00 97.2 93 122/50 (74) 07/27/19 16:00 96 07/27/19 12:00 97.9 95 18 118/57 (77) 100 07/27/19 12:00 96 Intake and Output 07/27/19 07/28/19 19:00 07:00 Intake Total 38 ml 618 ml Output Total 1000 ml 800 ml Balance -962 ml -182 ml Free Water 200 ml Tube Feeding 38 ml 418 ml Stool Total 800 ml Hemodialysis UF 1000 ml Laboratory Tests 07/28/19 06:55: White Blood Count 19.6H, Red Blood Count 3.04L, Hemoglobin 9.0L, Hematocrit 28.0L, Mean Corpuscular Volume 92, Mean Corpuscular Hemoglobin 29.7, Mean Corpuscular Hemoglobin Concent 32.2, Red Cell Distribution Width 13.2, Platelet Count 431, Mean Platelet Volume 8.4, Neutrophils (%) (Auto) , Lymphocytes (%) ( Auto) , Monocytes (%) (Auto) , Eosinophils (%) (Auto) , Basophils (%) (Auto) , Neutrophils % (Manual) [Pending], Lymphocytes % (Manual) [Pending], Platelet Estimate [Pending], Platelet Morphology [Pending], Prothrombin Time 11.0, Prothromb Time International Ratio 1.0, Activated Partial Thromboplast Time 29, Sodium Level 144, Potassium Level 3.4L, Chloride Level 99, Carbon Dioxide Level 27, Anion Gap 18H, Blood Urea Nitrogen 72H, Creatinine 3.7H, Estimat Glomerular Filtration Rate 13.9, Glucose Level 129H, Calcium Level 10.2H, Total Bilirubin 1.0, Aspartate Amino Transf (AST/SGOT) 27, Alanine Aminotransferase (ALT/SGPT) 22, Alkaline Phosphatase 76, Total Protein 8.1, Albumin 4.3, Globulin 3.8, Albumin/Globulin Ratio 1.1 Height (Feet): 5 Height (Inches): 3.00 Weight (Pounds): 139 Objective General: NAD, A&O x 1, self only HEENT: NCAT, EOMi, PEERLA, nares patent and no symmetrical, no tonsillar exudates, mucous membranes moist CV: RRR, no murmurs, rubs, or gallops Pulm: CTAB, No wheezes, rhonchi, or rales, no accessory muscle usage or conversational dyspnea GI: Soft, nontender, nondistended, bowel sounds present, PEG tube in place, C/D/ I Neuro: CN 2-12 grossly intact bilaterally, no focal signs. Ext: No lower extremity edema bilaterally, LE contracted bilaterally Skin: Multiple pressure ulcers noted on hip/heels Lymph: No lymphadenopathy in upper extremity and lower extremity Rory Oconnor M.D. Jul 28, 2019 11:56
[2019-07-28 12:00] VITALS: BP 141/80
[2019-07-28] MEDS: traMADol 50mg tab ORAL PRN (15:13)
[2019-07-28 16:00] VITALS: BP 110/59
--- NOTE | 2019-07-28 16:31 | NUR ---
NURSE NOTES: Post voide residual/bladder scan=0.0 cc.
--- NOTE | 2019-07-28 17:00 | Cardiology Progress Note ---
Assessment/Plan Status: stable Assessment/Plan Assessment/Plan Assessment/Plan: Heart failure elevated BNP Elevated troponin HTN AMS Dysphagia s/p PEG ESRD on HD Syncope/fall -Serial EKG/Troponin - now down trending, no indication for cardiac cath -maintain HD -Echocardiogram pending -Continue aspirin -Continue statin -Continue lasix -Reduce coreg 3.125 BID re hypotension Subjective Cardiovascular: Reports: no symptoms Respiratory: Reports: no symptoms Gastrointestinal/Abdominal: Reports: no symptoms Genitourinary: Reports: no symptoms Subjective NO acute events, BP improved on lower dose coreg, no fevers, no CP/SOB Objective Last 24 Hour Vital Signs Date Time Temp Pulse Resp B/P (MAP) Pulse Ox O2 Delivery O2 Flow Rate FiO2 07/28/19 15:43 97.8 07/28/19 12:00 123 07/28/19 12:00 97.8 72 20 141/80 (100) 98 07/28/19 09:00 Nasal Cannula 2.0 07/28/19 08:26 95 108/58 07/28/19 08:00 96 07/28/19 08:00 97.3 95 17 108/58 (75) 98 07/28/19 04:00 96 07/28/19 04:00 98.4 96 17 118/65 (82) 99 07/28/19 00:00 97 07/28/19 00:00 97.0 98 19 108/56 (73) 91 07/27/19 21:00 Nasal Cannula 2.0 07/27/19 20:27 120 142/78 07/27/19 20:00 98 07/27/19 20:00 97.3 100 142/78 (99) General Appearance: no apparent distress, lethargic EENT: PERRL/EOMI, normal ENT inspection, TMs normal, pharynx normal Neck: non-tender, normal alignment, supple, normal inspection, no JVD Rhythm: ST Cardiovascular: normal peripheral pulses, regular rhythm, tachycardia Respiratory/Chest: chest wall non-tender, lungs clear, normal breath sounds, no respiratory distress, no accessory muscle use, respiratory distress Abdomen: normal bowel sounds, non tender, soft, no organomegaly, no mass Extremities: normal range of motion, non-tender, normal inspection, no calf tenderness, no swelling 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2 % (11.6-14.8) Platelet Count 431 K/UL (150-450) Mean Platelet Volume 8.4 FL (6.5-10.1) Neutrophils (%) (Auto) % (45.0-75.0) Lymphocytes (%) (Auto) % (20.0-45.0) Monocytes (%) (Auto) % (1.0-10.0) Eosinophils (%) (Auto) % (0.0-3.0) Basophils (%) (Auto) % (0.0-2.0) Differential Total Cells Counted 100 Neutrophils % (Manual) 74 % (45-75) Lymphocytes % (Manual) 18 % (20-45) L Monocytes % (Manual) 6 % (1-10) Eosinophils % (Manual) 2 % (0-3) Basophils % (Manual) 0 % (0-2) Band Neutrophils 0 % (0-8) Platelet Estimate Adequate Platelet Morphology Normal Red Blood Cell Morphology Normal Prothrombin Time 11.0 SEC (9.30-11.50) Prothromb Time International Ratio 1.0 (0.9-1.1) Activated Partial Thromboplast Time 29 SEC (23-33) Sodium Level 144 MMOL/L (136-145) Potassium Level 3.4 MMOL/L (3.5-5.1) L Chloride Level 99 MMOL/L (98-107) Carbon Dioxide Level 27 MMOL/L (21-32) Anion Gap 18 mmol/L (5-15) H Blood Urea Nitrogen 72 mg/dL (7-18) H Creatinine 3.7 MG/DL (0.55-1.30) H Estimat Glomerular Filtration Rate 13.9 mL/min (>60) Glucose Level 129 MG/DL (74-106) H Calcium Level 10.2 MG/DL (8.5-10.1) H Total Bilirubin 1.0 MG/DL (0.2-1.0) Aspartate Amino Transf (AST/SGOT) 27 U/L (15-37) Alanine Aminotransferase (ALT/SGPT) 22 U/L (12-78) Alkaline Phosphatase 76 U/L (46-116) Total Protein 8.1 G/DL (6.4-8.2) Albumin 4.3 G/DL (3.4-5.0) Globulin 3.8 g/dL Albumin/Globulin Ratio 1.1 (1.0-2.7) Microbiology Date/Time Source Procedure Growth Status 07/26/19 15:00 Blood Blood Culture - Preliminary NO GROWTH AFTER 24 HOURS Resulted 07/26/19 14:50 Blood Blood Culture - Preliminary NO GROWTH AFTER 24 HOURS Resulted 07/28/19 03:50 Stool Clostridium difficile Toxin Assay - Final Complete FilsoMelchor perdomo MD Jul 28, 2019 17:00
--- NOTE | 2019-07-28 17:08 | Cardiac Electrophysiology PN ---
Assessment/Plan Assessment/Plan 1. Sinus Tachycardia due to sepsis . On Coreg 3.125 mg b.i.d. as well as IV antibiotic 2. Hypertension. On Coreg 3.125 mg b.i.d. 3. Troponin leak and history of CAD and prior non-ST elevation myocardial infarction. EKG SR with LVH.Echocardiogram pending 4. End-stage renal disease, now on hemodialysis. Awaiting changing Aman to Perm Cath Monday and HD 5. Pneumonia, fever and sepsis. COVID-19 was ruled out. Antibiotics per ID. 6. Dysphagia, status post G-tube placement. GALLO RN Subjective Subjective Tunneled HD catheter is postponed to Monday. No events Objective Last 24 Hour Vital Signs Date Time Temp Pulse Resp B/P (MAP) Pulse Ox O2 Delivery O2 Flow Rate FiO2 07/28/19 15:43 97.8 07/28/19 12:00 123 07/28/19 12:00 97.8 72 20 141/80 (100) 98 07/28/19 09:00 Nasal Cannula 2.0 07/28/19 08:26 95 108/58 07/28/19 08:00 96 07/28/19 08:00 97.3 95 17 108/58 (75) 98 07/28/19 04:00 96 07/28/19 04:00 98.4 96 17 118/65 (82) 99 07/28/19 00:00 97 07/28/19 00:00 97.0 98 19 108/56 (73) 91 07/27/19 21:00 Nasal Cannula 2.0 07/27/19 20:27 120 142/78 07/27/19 20:00 98 07/27/19 20:00 97.3 100 142/78 (99) Intake and Output 07/27/19 07/28/19 19:00 07:00 Intake Total 38 ml 618 ml Output Total 1000 ml 800 ml Balance -962 ml -182 ml Free Water 200 ml Tube Feeding 38 ml 418 ml Stool Total 800 ml Hemodialysis UF 1000 ml Laboratory Tests Test 07/28/19 06:55 White Blood Count 19.6 K/UL (4.8-10.8) H Red Blood Count 3.04 M/UL (4.20-5.40) L Hemoglobin 9.0 G/DL (12.0-16.0) L Hematocrit 28.0 % (37.0-47.0) L Mean Corpuscular Volume 92 FL (80-99) Mean Corpuscular Hemoglobin 29.7 PG (27.0-31.0) Mean Corpuscular Hemoglobin Concent 32.2 G/DL (32.0-36.0) Red Cell Distribution Width 13.2 % (11.6-14.8) Platelet Count 431 K/UL (150-450) Mean Platelet Volume 8.4 FL (6.5-10.1) Neutrophils (%) (Auto) % (45.0-75.0) Lymphocytes (%) (Auto) % (20.0-45.0) Monocytes (%) (Auto) % (1.0-10.0) Eosinophils (%) (Auto) % (0.0-3.0) Basophils (%) (Auto) % (0.0-2.0) Differential Total Cells Counted 100 Neutrophils % (Manual) 74 % (45-75) Lymphocytes % (Manual) 18 % (20-45) L Monocytes % (Manual) 6 % (1-10) Eosinophils % (Manual) 2 % (0-3) Basophils % (Manual) 0 % (0-2) Band Neutrophils 0 % (0-8) Platelet Estimate Adequate Platelet Morphology Normal Red Blood Cell Morphology Normal Prothrombin Time 11.0 SEC (9.30-11.50) Prothromb Time International Ratio 1.0 (0.9-1.1) Activated Partial Thromboplast Time 29 SEC (23-33) Sodium Level 144 MMOL/L (136-145) Potassium Level 3.4 MMOL/L (3.5-5.1) L Chloride Level 99 MMOL/L (98-107) Carbon Dioxide Level 27 MMOL/L (21-32) Anion Gap 18 mmol/L (5-15) H Blood Urea Nitrogen 72 mg/dL (7-18) H Creatinine 3.7 MG/DL (0.55-1.30) H Estimat Glomerular Filtration Rate 13.9 mL/min (>60) Glucose Level 129 MG/DL (74-106) H Calcium Level 10.2 MG/DL (8.5-10.1) H Total Bilirubin 1.0 MG/DL (0.2-1.0) Aspartate Amino Transf (AST/SGOT) 27 U/L (15-37) Alanine Aminotransferase (ALT/SGPT) 22 U/L (12-78) Alkaline Phosphatase 76 U/L (46-116) Total Protein 8.1 G/DL (6.4-8.2) Albumin 4.3 G/DL (3.4-5.0) Globulin 3.8 g/dL Albumin/Globulin Ratio 1.1 (1.0-2.7) Microbiology Date/Time Source Procedure Growth Status 07/26/19 15:00 Blood Blood Culture - Preliminary NO GROWTH AFTER 24 HOURS Resulted 07/26/19 14:50 Blood Blood Culture - Preliminary NO GROWTH AFTER 24 HOURS Resulted 07/28/19 03:50 Stool Clostridium difficile Toxin Assay - Final Complete Objective HEAD AND NECK: No JVD. LUNGS: Coarse rhonchi. CARDIOVASCULAR:Regular S1 and S2, tachycardic. ABDOMEN: Soft. EXTREMITIES: No pitting edema. GENITOURINARY: The patient has Aman catheter in the groin for dialysis. Cristopher Osman MD Jul 28, 2019 17:08
[2019-07-28] MEDS ORDERED: Tubing IV Secondary IV ONE (17:42)
--- NOTE | 2019-07-28 18:16 | Surgery Progress Note ---
Surgery Progress Note Subjective Procedure Performed right femoral temporary HD catheter insertion Additional Comments no longer bleeding. dressings stable. mild ooz fro prior Objective Last 24 Hour Vital Signs Date Time Temp Pulse Resp B/P (MAP) Pulse Ox O2 Delivery O2 Flow Rate FiO2 07/28/19 16:00 97.9 99 22 110/59 (76) 98 07/28/19 15:43 97.8 07/28/19 12:00 123 07/28/19 12:00 97.8 72 20 141/80 (100) 98 07/28/19 09:00 Nasal Cannula 2.0 07/28/19 08:26 95 108/58 07/28/19 08:00 96 07/28/19 08:00 97.3 95 17 108/58 (75) 98 07/28/19 04:00 96 07/28/19 04:00 98.4 96 17 118/65 (82) 99 07/28/19 00:00 97 07/28/19 00:00 97.0 98 19 108/56 (73) 91 07/27/19 21:00 Nasal Cannula 2.0 07/27/19 20:27 120 142/78 07/27/19 20:00 98 07/27/19 20:00 97.3 100 142/78 (99) I&O Intake and Output 07/27/19 07/28/19 19:00 07:00 Intake Total 38 ml 618 ml Output Total 1000 ml 800 ml Balance -962 ml -182 ml Free Water 200 ml Tube Feeding 38 ml 418 ml Stool Total 800 ml Hemodialysis UF 1000 ml Dressing: saturated Wound: other Drains: other Cardiovascular: RSR Respiratory: decreased breath sounds Abdomen: soft, non-tender, present bowel sounds Extremities: no cyanosis Laboratory Tests Test 07/28/19 06:55 White Blood Count 19.6 K/UL (4.8-10.8) H Red Blood Count 3.04 M/UL (4.20-5.40) L Hemoglobin 9.0 G/DL (12.0-16.0) L Hematocrit 28.0 % (37.0-47.0) L Mean Corpuscular Volume 92 FL (80-99) Mean Corpuscular Hemoglobin 29.7 PG (27.0-31.0) Mean Corpuscular Hemoglobin Concent 32.2 G/DL (32.0-36.0) Red Cell Distribution Width 13.2 % (11.6-14.8) Platelet Count 431 K/UL (150-450) Mean Platelet Volume 8.4 FL (6.5-10.1) Neutrophils (%) (Auto) % (45.0-75.0) Lymphocytes (%) (Auto) % (20.0-45.0) Monocytes (%) (Auto) % (1.0-10.0) Eosinophils (%) (Auto) % (0.0-3.0) Basophils (%) (Auto) % (0.0-2.0) Differential Total Cells Counted 100 Neutrophils % (Manual) 74 % (45-75) Lymphocytes % (Manual) 18 % (20-45) L Monocytes % (Manual) 6 % (1-10) Eosinophils % (Manual) 2 % (0-3) Basophils % (Manual) 0 % (0-2) Band Neutrophils 0 % (0-8) Platelet Estimate Adequate Platelet Morphology Normal Red Blood Cell Morphology Normal Prothrombin Time 11.0 SEC (9.30-11.50) Prothromb Time International Ratio 1.0 (0.9-1.1) Activated Partial Thromboplast Time 29 SEC (23-33) Sodium Level 144 MMOL/L (136-145) Potassium Level 3.4 MMOL/L (3.5-5.1) L Chloride Level 99 MMOL/L (98-107) Carbon Dioxide Level 27 MMOL/L (21-32) Anion Gap 18 mmol/L (5-15) H Blood Urea Nitrogen 72 mg/dL (7-18) H Creatinine 3.7 MG/DL (0.55-1.30) H Estimat Glomerular Filtration Rate 13.9 mL/min (>60) Glucose Level 129 MG/DL (74-106) H Calcium Level 10.2 MG/DL (8.5-10.1) H Total Bilirubin 1.0 MG/DL (0.2-1.0) Aspartate Amino Transf (AST/SGOT) 27 U/L (15-37) Alanine Aminotransferase (ALT/SGPT) 22 U/L (12-78) Alkaline Phosphatase 76 U/L (46-116) Total Protein 8.1 G/DL (6.4-8.2) Albumin 4.3 G/DL (3.4-5.0) Globulin 3.8 g/dL Albumin/Globulin Ratio 1.1 (1.0-2.7) Plan Problems: (1) Decubitus skin ulcer Assessment & Plan: Pt presented on admission with multiple pressure injuries. Unstageable pressure injury R shoulder(L)3.8cm x (W)3.3cm. Base of wound is 100 % necrotic and dry. Marginal erythema along borders. No erythema or induration periwound. Reabsorbed DTPI R Humerus. Base of injury has dry peeling brown skin with underlying dry pink epithelial. R elbow pressure injury has resolved. Full thickness pressure injury R hip (L)7cm x (W)13.1cm. Base of wound is 70% fibrinous slough,10% necrotic ,20% moist pink granulation. Edges are macerated.Small amt seropurulent non-odorous exudate noted. NO erythema , induration or elevation in skin temp periwound. Opened DTPI Sacrum(L)9cm x (W)15cm. Base of wound is purple,indurated with an open wound at sacrococcygeal which has 100% slough(L)1.6cm x (W)1cm. Surrounding Skin hypopigmentation with areas of excoriation extending into perineum and perianal area. Unstageable pressure injury lateral R malleolus(L)2.5cm x (W)3cm. Base of wound is 100% dry necrosis. Edges adherent to base of wound. No erythema induration or fluctuance periwound. Reabsorbing DTPI R heel. Base of Heel is boggy,non-blanching erythema with dry peeling brown skin along edges.(L)4.2cm x (W)6cm. Resolving DTPI distal/lateral R foot. Stable dry brown eschar without fluctuance or induration(L)1cm x (W)1.5cm. Resolving DTPI Lateral R 5th metatarsal.Base of injury is dry,brown without fluctuance or induration.(L)0.6cm x (W)1cm Unstageable pressure injury L Hallux(L)4cm x (W)2.7cm. Base of wound is 80% necrotic,20% slough with marginal erythema along borders. No odor or exudate noted. DTPI L Heel. Base of injury maroon and fluctuant. Periwound is boggy but blanchable(L)5.5cm x (W)6.5cm. Tx.Plan: Cleanse R shoulder with Saline. Apply Therahoney. Apply Cavilon Periwound. Cover with Optifoam drsg. Change every 3 days and prn. Cleanse R hip with Saline. Apply Therahoney.Apply Moisture Barrier Periwound. Cover with Optifoam drsg. Change Daily and prn. Cleanse Sacrum with Saline. Apply Therahoney. Apply Moisture Barrier Paste periwound. Cover with Optifoam drsg. Change every 3 days and prn. Apply Moisture Barrier Paste to perineum and perianal areas with each incontinence care. Apply Betadine to R heel,Distal/lateral R foot ,R5th metatarsal. Cover with Optifoam drsg. Change every 3 days and prn. Apply Betadine to L hallux,and L heel. Cover each site with Optifoam drsg. Change every 3 days and prn. Reposition at least every 2hours or as tolerated. Place pillow between knees. off-load heels with pillow. (2) Fever Assessment & Plan: covid negative discussed with pcp and nephro may need to remove catheter as possible etiology covid negative c diff negative blood cultures from line. if positive will remove after next HD then line holiday blood cx with gram neg d/c line Line removed see note Line holiday new line placed see note cont hd Antibiotics as per infectious disease (3) Protein calorie malnutrition Assessment & Plan: DAILY ESTIMATED NEEDS: Needs based on Wounds, HD 51.8kg 30-35 kcals/kg [id number] total kcals 1.25-1.8 g protein/kg 65-93 g total protein Fluids per MD mL/kg . total fluid mLs NUTRITION DIAGNOSIS: * Increased kcal and prot needs r/t wound healing and renal failure as evidenced by w/ multiple pressure injuries, pending re-evaluation, s/p recent PermCath placement, HD dependent. * Swallowing difficulty R/T dysphagia as evidenced by s/p recent PEG placement, on GT feeding. CURRENT TF:Jevity 1.2 @ 50ml/hr x 24 hrs ENTERAL NUTRITION RECOMMENDATIONS: Nepro @ 38ml/hr x 24 hrs to provide 912ml, 1642kcal, 74g prot, 663ml free water - Rec TF change to Nepro- HD dependent - Initiate Nepro @ 28ml/hr x 6 hrs, increase to goal as tolerated. - HOB over 30 degrees/ water flush per MD ADDITIONAL RECOMMENDATIONS: 1) Calibrated bedscale wt 2) Wound Care: add Nephrovite x 1 add Saw 1ptk BID when TF well tolerated @ goal 3) Check phos and mag levels 4) Monitor BGs, need for nISS 5) Add probiotics: h/o LBM prev adm, prolonged use of abx (4) Pressure ulcer Anshul Nava Jul 28, 2019 18:15
--- NOTE | 2019-07-28 19:57 | Neurology Progress Note ---
Interim History Interim History ROS Limited/Unobtainable: Yes - pt minimally communicative Interim History no new neuro changes Objective Physical Exam Last Vital Signs Date Time Temp Pulse Resp B/P (MAP) Pulse Ox O2 Delivery O2 Flow Rate FiO2 07/28/19 16:00 97.9 99 22 110/59 (76) 98 07/28/19 09:00 Nasal Cannula 2.0 Laboratory Tests Test 07/28/19 06:55 White Blood Count 19.6 K/UL (4.8-10.8) H Red Blood Count 3.04 M/UL (4.20-5.40) L Hemoglobin 9.0 G/DL (12.0-16.0) L Hematocrit 28.0 % (37.0-47.0) L Mean Corpuscular Volume 92 FL (80-99) Mean Corpuscular Hemoglobin 29.7 PG (27.0-31.0) Mean Corpuscular Hemoglobin Concent 32.2 G/DL (32.0-36.0) Red Cell Distribution Width 13.2 % (11.6-14.8) Platelet Count 431 K/UL (150-450) Mean Platelet Volume 8.4 FL (6.5-10.1) Neutrophils (%) (Auto) % (45.0-75.0) Lymphocytes (%) (Auto) % (20.0-45.0) Monocytes (%) (Auto) % (1.0-10.0) Eosinophils (%) (Auto) % (0.0-3.0) Basophils (%) (Auto) % (0.0-2.0) Differential Total Cells Counted 100 Neutrophils % (Manual) 74 % (45-75) Lymphocytes % (Manual) 18 % (20-45) L Monocytes % (Manual) 6 % (1-10) Eosinophils % (Manual) 2 % (0-3) Basophils % (Manual) 0 % (0-2) Band Neutrophils 0 % (0-8) Platelet Estimate Adequate Platelet Morphology Normal Red Blood Cell Morphology Normal Prothrombin Time 11.0 SEC (9.30-11.50) Prothromb Time International Ratio 1.0 (0.9-1.1) Activated Partial Thromboplast Time 29 SEC (23-33) Sodium Level 144 MMOL/L (136-145) Potassium Level 3.4 MMOL/L (3.5-5.1) L Chloride Level 99 MMOL/L (98-107) Carbon Dioxide Level 27 MMOL/L (21-32) Anion Gap 18 mmol/L (5-15) H Blood Urea Nitrogen 72 mg/dL (7-18) H Creatinine 3.7 MG/DL (0.55-1.30) H Estimat Glomerular Filtration Rate 13.9 mL/min (>60) Glucose Level 129 MG/DL (74-106) H Calcium Level 10.2 MG/DL (8.5-10.1) H Total Bilirubin 1.0 MG/DL (0.2-1.0) Aspartate Amino Transf (AST/SGOT) 27 U/L (15-37) Alanine Aminotransferase (ALT/SGPT) 22 U/L (12-78) Alkaline Phosphatase 76 U/L (46-116) Total Protein 8.1 G/DL (6.4-8.2) Albumin 4.3 G/DL (3.4-5.0) Globulin 3.8 g/dL Albumin/Globulin Ratio 1.1 (1.0-2.7) Head: normocophalic Neck: no rigidity EENT: benign Neurologic Exam Mental Status: awake Cranial Nerves III, IV, : PERRLA Objective Wakes up, tracks with eyes, tell me her name, withdraws all 4 Impression/Recommendations Problems: (1) Decubitus skin ulcer (2) Fever (3) Rhabdomyolysis (4) Elevated troponin (5) KAREN (acute kidney injury) (6) Fever (7) Elevated brain natriuretic peptide (BNP) level (8) ESRD (end stage renal disease) on dialysis (9) ESRD (end stage renal disease) on dialysis (10) Pressure ulcer (11) Protein calorie malnutrition (12) Dysphagia Status: stable Diagnostic Impression Acute encephalopathy, improved baseline dementia Sepsis Monitor neuro exam for improvement cont atb neg covid Delirium precautions Sushil Stevenson MD Jul 28, 2019 19:57
[2019-07-28 20:00] VITALS: BP 130/58
--- NOTE | 2019-07-28 20:37 | NUR ---
HAND-OFF: Report given to Krysten Montelongo RN. Patient sitting HOB at 45 degrees, on 2 liters nasal cannula, sleeping, side rails up x 3, bed in lowest position, call light within reach, soft care mattress in place, pillow between legs, IV patent in left hand 22 gauge, in no apparent distress.
[2019-07-28] MEDS: Dyna-Hex 2% Top Sol 2oz TOPIC SCH (22:14)
[2019-07-29] VITALS: BP 135/72
[2019-07-29 04:00] VITALS: BP 126/62
--- NOTE | 2019-07-29 07:36 | NUR ---
HAND-OFF: Report given to HYUN Tidwell. Patient in stable condition. No signs of distress or pain noted at the time. Endorsed plan of care.
[2019-07-29 08:00] VITALS: BP 108/47
--- NOTE | 2019-07-29 08:53 | NUR ---
NURSE NOTES: pt in bed resting. hob elevated. gt patent intact. rectal tube in place. per Rad dept, wbc is trending and cant do replacement of hd cath. relayed to md via phone spoke w dr Brewster, per , she will order stat labs and ok if hd will be held just to notify dr Oconnor
--- NOTE | 2019-07-29 09:07 | Neurology Progress Note ---
Interim History Interim History ROS Limited/Unobtainable: Yes - pt minimally communicative Interim History no new neuro deficits Objective Physical Exam Last Vital Signs Date Time Temp Pulse Resp B/P (MAP) Pulse Ox O2 Delivery O2 Flow Rate FiO2 07/29/19 08:00 98.2 121 20 108/47 (67) 97 07/28/19 21:00 Nasal Cannula 2.0 Laboratory Tests Test 07/29/19 06:00 White Blood Count Pending Red Blood Count Pending Hemoglobin Pending Hematocrit Pending Mean Corpuscular Volume Pending Mean Corpuscular Hemoglobin Pending Mean Corpuscular Hemoglobin Concent Pending Red Cell Distribution Width Pending Platelet Count Pending Mean Platelet Volume Pending Neutrophils (%) (Auto) Pending Lymphocytes (%) (Auto) Pending Monocytes (%) (Auto) Pending Eosinophils (%) (Auto) Pending Basophils (%) (Auto) Pending Sodium Level Pending Potassium Level Pending Chloride Level Pending Carbon Dioxide Level Pending Blood Urea Nitrogen Pending Creatinine Pending Estimat Glomerular Filtration Rate Pending Glucose Level Pending Calcium Level Pending Random Vancomycin Level 45.7 ug/mL Head: normocophalic Neck: no rigidity EENT: benign Neurologic Exam Mental Status: awake Cranial Nerves III, IV, : PERRLA Objective Wakes up, tracks with eyes, tell me her name, withdraws all 4 Impression/Recommendations Problems: (1) Decubitus skin ulcer (2) Fever (3) Rhabdomyolysis (4) Elevated troponin (5) KAREN (acute kidney injury) (6) Fever (7) Elevated brain natriuretic peptide (BNP) level (8) ESRD (end stage renal disease) on dialysis (9) ESRD (end stage renal disease) on dialysis (10) Pressure ulcer (11) Protein calorie malnutrition (12) Dysphagia Status: stable Diagnostic Impression Acute encephalopathy, improved baseline dementia Sepsis Monitor neuro exam for improvement cont atb neg covid Delirium precautions Sushil Stevenson MD Jul 29, 2019 09:07
[2019-07-29] MEDS: Lactobacillus-GG tablet GT SCH ×2 (09:11→21:04)
[2019-07-29] MEDS: Heparin 5000 units/ml inj SUBQ SCH ×2 (09:12→21:00)
[2019-07-29] MEDS: Piperacillin/Tazobactam 3.375 GM in D5W 110 ML IVPB SCH ×2 (09:14→21:03)
[2019-07-29 09:17] LABS: ANION GAP 21 mmol/L (5-15); BLOOD UREA NITROGEN 102 mg/dL (7-18); CALCIUM 9.7 MG/DL (8.5-10.1); CARBON DIOXIDE 23 MMOL/L (21-32); CHLORIDE 99 MMOL/L (98-107); CREATININE 4.9 MG/DL (0.55-1.30); POTASSIUM 4.1 MMOL/L (3.5-5.1); SODIUM 143 MMOL/L (136-145)
[2019-07-29 09:20] LABS: BASOPHILS % (AUTO) 0.4 % (0.0-2.0); EOSINOPHILS % (AUTO) 0.7 % (0.0-3.0); HEMATOCRIT 25.8 % (37.0-47.0); HEMOGLOBIN 8.5 G/DL (12.0-16.0); LYMPHOCYTES % (AUTO) 13.7 % (20.0-45.0); MEAN CORPUSCULAR VOLUME 92 FL (80-99); MONOCYTES % (AUTO) 7.8 % (1.0-10.0); NEUTROPHILS % (AUTO) 77.4 % (45.0-75.0); PLATELET COUNT 415 K/UL (150-450); RED BLOOD COUNT 2.82 M/UL (4.20-5.40); RED CELL DISTRIBUTION WIDTH 13.6 % (11.6-14.8); WHITE BLOOD COUNT 17.6 K/UL (4.8-10.8)
--- NOTE | 2019-07-29 09:20 | General Progress Note ---
Assessment/Plan Status: stable Assessment/Plan: 89-year-old female with PMH of acute renal failure, s/p right chest wall permacath on HD, dysphasia s/p PEG, multiple pressure wounds, HTN, h/o AMS was recently discharged from this facility for KAREN/rhabdo, unwitnessed fall, was [facility] to [facility] and returned here due to fevers. Patient was admitted for persistent fevers and for sepsis/COVID 19 rule out. ED course: BMP 8000, troponin 0 0.347, patient given for septic work-up and will be admitted for further treatment. #Sepsis #Pseudomonas bacteremia #Pseudomonas PNA #leukocytosis #Diarrhea #ESRD on HD -continue inpatient level of care -COVID-19 NEGATIVE, Droplet precautions d/c -c diff negative (07/16 and 07/25) -Imodium prn -CT abd/pelvis results reviewed -Permacath removed 07/19, line Cx negative -s/p temp cath right femoral 07/22 -07/25 BCx NGTD -CXR 07/27: mild pulmonary congestion, improved compared to previous -ID following: Zosyn, amikacin, vanc, micofungin -Nephro following: hold off on David catheter given rise in WBC -insert hargrove for accurate I/ and O/s, obtain UA, UCx #Anemia of chronic dx -cont. to monitor for signs/symptoms of bleeding -check iron panel, ferritin-> ferritin supersaturated -epogen 4K TIW #Hypernatremia - resolved #Hyperkalemia - resolved #Hypokalemia - resolved -potassium replaced, ctm, replace PRN -FWF 100 cc q6 -Nephro following #HTN #elevated troponin #BNP elevated #Sinus tachycardia -trops stable 0.254, 0.240, 0.248 >>0.072 -likely due to demand ischemia, ESRD, sepsis -ASA, statin -off lasix for now given low bp -hydralazine PRN for SBP >160 -Carvedilol 3.25 mg BID -07/28: pt tachycardic this AM, likely 2/2 sepsis, d/w Dr. Osman, will obtain EKG , trop level 0.07 today -Cardio following, reccs appreciated #Hematuria #Possible Urinary retention. #Possible neurogenic bladder. -UA w/ evidence of RBCs, 4+ blood -Urology recs appreciated #Dysphagia -s/p PEG -tolerating TF -Dietary and GI following, recs appreciated -d/w ST, pt currently unable to manage PO, recommends pt to f/u w/ST as o/p for o/p video swallow once more stable #Dementia -stable -neuro following, appreciate recs #Pressure wounds -Cont. wound care DVT ppx - heparin sc Time spent on encounter: 35 mins, >50% on counseling, coordination of care. D/w Dr. Rosado. Subjective ROS Limited/Unobtainable: Yes - minimally communicative Allergies: Coded Allergies: No Known Allergies (Unverified , 06/24/19) Subjective F/u for worsening leukocytosis, pseudomonas HCAP/bacteremia. Acute renal failure. Tachycardic this AM, WBC remains high, pt minimally communicative but appears comfortable and at b/l mentation. No fevers. Objective Last 24 Hour Vital Signs Date Time Temp Pulse Resp B/P (MAP) Pulse Ox O2 Delivery O2 Flow Rate FiO2 07/29/19 09:11 121 108/47 07/29/19 08:00 98.2 121 20 108/47 (67) 97 07/29/19 04:00 122 07/29/19 04:00 98.2 114 20 126/62 (83) 97 07/29/19 00:00 119 07/29/19 00:00 98.4 103 18 135/72 (93) 99 07/28/19 22:15 102 130/58 07/28/19 21:00 Nasal Cannula 2.0 07/28/19 20:00 98.1 102 18 130/58 (82) 99 07/28/19 20:00 100 07/28/19 16:00 97.9 99 22 110/59 (76) 98 07/28/19 16:00 101 07/28/19 15:43 97.8 07/28/19 12:00 123 07/28/19 12:00 97.8 72 20 141/80 (100) 98 Intake and Output 07/28/19 07/29/19 19:00 07:00 Output Total 800 ml 100 ml Balance -800 ml -100 ml Stool Total 800 ml 100 ml # Bowel Movements 2 1 Laboratory Tests 07/29/19 06:00: White Blood Count [Pending], Red Blood Count [Pending], Hemoglobin [Pending], Hematocrit [Pending], Mean Corpuscular Volume [Pending], Mean Corpuscular Hemoglobin [Pending], Mean Corpuscular Hemoglobin Concent [Pending], Red Cell Distribution Width [Pending], Platelet Count [Pending], Mean Platelet Volume [ Pending], Neutrophils (%) (Auto) [Pending], Lymphocytes (%) (Auto) [Pending], Monocytes (%) (Auto) [Pending], Eosinophils (%) (Auto) [Pending], Basophils (%) (Auto) [Pending], Sodium Level [Pending], Potassium Level [Pending], Chloride Level [Pending], Carbon Dioxide Level [Pending], Blood Urea Nitrogen [Pending], Creatinine [Pending], Estimat Glomerular Filtration Rate [Pending], Glucose Level [Pending], Calcium Level [Pending], Random Vancomycin Level 45.7 Height (Feet): 5 Height (Inches): 3.00 Weight (Pounds): 139 Objective General Appearance: appears comfortable, alert, awake, in NAD, AOx1 at b/l HEENT: NCAT, EOMi, dry MMM Cardiovascular: RRR Respiratory/Chest: lungs clear, normal breath sounds, no accessory muscle usage Abdomen: non tender, soft, +PEG c/d/i Ext: contracted b/l, no edema, right femoral line c/d/i MSK: No tenderness on anterior chest wall palpation Lisa Brewster M.D. Jul 29, 2019 09:20
--- NOTE | 2019-07-29 09:45 | Nephrology Progress Note ---
Assessment/Plan Plan #Acute renal failure recent started on HD in 06/2018- #Sepsis #Dementia #HTN #elevated troponin #Dysphagia s/p PEG #urinary retention - permacath removed 07/19 --> temp HD catheter 07/22 --> next HD today on low sodium bath - monitor BMP closley - agree with [facility] 100 q6 - continue lasix 80 IV daily -> switch to oral on DC - cardiology eval - monitor UOP---> increasing - urology eval - continue antibiotics per ID - coreg 3.125mg BID - follow repeat blood cx- growing pseudomonas - check iron panel, ferritin-> ferritin supersaturated - continue epogen 4K TIW - monitor BMP, mag and phos daily for now Subjective Subjective blood cx growing pseudomona temp HD catheter 07/22 permcath removed 07/19 BP stable breathing stable on NC WBC uptrending again hold off on permacath placement K low today- being repleted Objective Objective Last 24 Hour Vital Signs Date Time Temp Pulse Resp B/P (MAP) Pulse Ox O2 Delivery O2 Flow Rate FiO2 07/29/19 09:11 121 108/47 07/29/19 08:00 98.2 121 20 108/47 (67) 97 07/29/19 04:00 122 07/29/19 04:00 98.2 114 20 126/62 (83) 97 07/29/19 00:00 119 07/29/19 00:00 98.4 103 18 135/72 (93) 99 07/28/19 22:15 102 130/58 07/28/19 21:00 Nasal Cannula 2.0 07/28/19 20:00 98.1 102 18 130/58 (82) 99 07/28/19 20:00 100 07/28/19 16:00 97.9 99 22 110/59 (76) 98 07/28/19 16:00 101 07/28/19 15:43 97.8 07/28/19 12:00 123 07/28/19 12:00 97.8 72 20 141/80 (100) 98 Intake and Output 07/28/19 07/29/19 19:00 07:00 Output Total 800 ml 100 ml Balance -800 ml -100 ml Stool Total 800 ml 100 ml # Bowel Movements 2 1 Laboratory Tests 07/29/19 06:00: White Blood Count 17.6H, Red Blood Count 2.82L, Hemoglobin 8.5L, Hematocrit 25.8L, Mean Corpuscular Volume 92, Mean Corpuscular Hemoglobin 30.2, Mean Corpuscular Hemoglobin Concent 32.9, Red Cell Distribution Width 13.6, Platelet Count 415, Mean Platelet Volume 7.8, Neutrophils (%) (Auto) 77.4H, Lymphocytes ( %) (Auto) 13.7L, Monocytes (%) (Auto) 7.8, Eosinophils (%) (Auto) 0.7, Basophils (%) (Auto) 0.4, Sodium Level 143, Potassium Level 4.1, Chloride Level 99, Carbon Dioxide Level 23, Anion Gap 21H, Blood Urea Nitrogen 102H, Creatinine 4.9H, Estimat Glomerular Filtration Rate 10.1, Glucose Level 144H, Calcium Level 9.7, Random Vancomycin Level 45.7 Height (Feet): 5 Height (Inches): 3.00 Weight (Pounds): 139 Objective General: NAD, A&O x 1, self only HEENT: NCAT, EOMi, PEERLA, nares patent and no symmetrical, no tonsillar exudates, mucous membranes moist CV: RRR, no murmurs, rubs, or gallops Pulm: CTAB, No wheezes, rhonchi, or rales, no accessory muscle usage or conversational dyspnea GI: Soft, nontender, nondistended, bowel sounds present, PEG tube in place, C/D/ I Neuro: CN 2-12 grossly intact bilaterally, no focal signs. Ext: No lower extremity edema bilaterally, LE contracted bilaterally Skin: Multiple pressure ulcers noted on hip/heels Lymph: No lymphadenopathy in upper extremity and lower extremity Rory Oconnor M.D. Jul 29, 2019 09:45
--- NOTE | 2019-07-29 10:09 | Urology Progress Note ---
Assessment/Plan Status: stable Assessment/Plan: 1. Hematuria, which was previously gross and now microscopic. 2. End-stage renal disease, on hemodialysis. 3. Urinary retention history, now with incontinence. 4. Probable neurogenic bladder. 5. Pyuria. 6. Proteinuria. 7. History of acute kidney injury. 9. Nephrolithiasis. 8. Sepsis? monitor clinically abx as ordered, per ID I+O cath PRN cysto later HD per spudder f/u on last blood cx Subjective Allergies: Coded Allergies: No Known Allergies (Unverified , 06/24/19) Subjective all noted, urinary incontinence, urine reported grossly non-bloody Objective Last 24 Hour Vital Signs Date Time Temp Pulse Resp B/P (MAP) Pulse Ox O2 Delivery O2 Flow Rate FiO2 07/29/19 09:11 121 108/47 07/29/19 08:00 98.2 121 20 108/47 (67) 97 07/29/19 04:00 122 07/29/19 04:00 98.2 114 20 126/62 (83) 97 07/29/19 00:00 119 07/29/19 00:00 98.4 103 18 135/72 (93) 99 07/28/19 22:15 102 130/58 07/28/19 21:00 Nasal Cannula 2.0 07/28/19 20:00 98.1 102 18 130/58 (82) 99 07/28/19 20:00 100 07/28/19 16:00 97.9 99 22 110/59 (76) 98 07/28/19 16:00 101 07/28/19 15:43 97.8 07/28/19 12:00 123 07/28/19 12:00 97.8 72 20 141/80 (100) 98 Intake and Output 07/28/19 07/29/19 19:00 07:00 Output Total 800 ml 100 ml Balance -800 ml -100 ml Stool Total 800 ml 100 ml # Bowel Movements 2 1 Microbiology Date/Time Source Procedure Growth Status 07/26/19 15:00 Blood Blood Culture - Preliminary NO GROWTH AFTER 48 HOURS Resulted 07/20/19 04:30 Sputum Induced Gram Stain - Final Complete 07/20/19 04:30 Sputum Culture - Final Pseudomonas Aeruginosa Melanie Albicans Usual Respiratory Cristina Complete 07/28/19 03:50 Stool Clostridium difficile Toxin Assay - Final Complete 07/20/19 13:18 Catheter Site Catheter Tip Culture - Final NO GROWTH AFTER 4 DAYS Complete Current Medications Medications (Trade) Dose Ordered Sig/Joan Route PRN Reason Start Time Stop Time Status Last Admin Dose Admin Acetaminophen (Tylenol) 650 mg Q4H PRN ORAL Mild Pain (Pain Scale 1-3) 07/14/19 14:45 08/13/19 14:44 07/22/19 08:45 Amikacin Protocol (Amikacin pharmacy to dose) 1 ea DAILY PRN MISC Per rx protocol 07/27/19 16:30 08/26/19 16:29 Atorvastatin Calcium (Lipitor) 10 mg QHS GT 07/14/19 21:00 10/12/19 20:59 07/28/19 22:14 Carvedilol (Coreg) 3.125 mg EVERY 12 HOURS ORAL 07/27/19 21:00 08/18/19 08:59 07/29/19 09:11 Chlorhexidine Gluconate (Cari-Hex 2%) 1 applic DAILY@1999 TOPIC 07/15/19 20:00 10/13/19 19:59 07/28/19 22:14 Dextrose (Dextrose 50%) 25 ml Q30M PRN IV Hypoglycemia 07/14/19 14:45 10/12/19 14:44 Dextrose (Dextrose 50%) 50 ml Q30M PRN IV Hypoglycemia 07/14/19 14:45 10/12/19 14:44 Epoetin Dion (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)) 4,000 unit MON-MON-MON SUBQ 07/24/19 21:00 10/22/19 20:59 07/26/19 21:00 Heparin Sodium (Porcine) (Heparin 5000 units/ml) 5,000 units EVERY 12 HOURS SUBQ 07/14/19 21:00 08/28/19 20:59 07/29/19 09:12 Hydralazine HCl (Apresoline) 10 mg Q4H PRN IV For High Blood Pressure 07/14/19 15:30 10/12/19 15:29 Lactobacillus Acidophilus (Culturelle) 1 tab Q12HR GT 07/15/19 12:14 10/13/19 12:13 07/29/19 09:11 Loperamide HCl (Imodium) 2 mg Q6H PRN NG Diarrhea 07/18/19 09:00 08/17/19 08:59 07/18/19 10:37 Micafungin Sodium 100 mg/Sodium Chloride 110 ml @ 110 mls/hr Q24H IVPB 07/28/19 12:00 08/04/19 11:59 07/28/19 11:47 Ondansetron HCl (Zofran) 4 mg Q6H PRN IVP Nausea & Vomiting 07/14/19 14:45 08/13/19 14:44 Piperacillin Sod/ Tazobactam Sod 3.375 gm/Dextrose 110 ml @ 27.5 mls/hr EVERY 12 HOURS IVPB 07/27/19 21:00 08/01/19 20:59 07/29/19 09:14 Tramadol HCl (Ultram) 25 mg Q6H PRN ORAL For Pain 07/28/19 12:30 08/04/19 12:29 07/28/19 15:13 Vancomycin HCl (Vanco rx to dose) 1 ea DAILY PRN MISC Per rx protocol 07/27/19 16:30 08/26/19 16:29 Laboratory Tests 07/29/19 06:00: White Blood Count 17.6H, Red Blood Count 2.82L, Hemoglobin 8.5L, Hematocrit 25.8L, Mean Corpuscular Volume 92, Mean Corpuscular Hemoglobin 30.2, Mean Corpuscular Hemoglobin Concent 32.9, Red Cell Distribution Width 13.6, Platelet Count 415, Mean Platelet Volume 7.8, Neutrophils (%) (Auto) 77.4H, Lymphocytes ( %) (Auto) 13.7L, Monocytes (%) (Auto) 7.8, Eosinophils (%) (Auto) 0.7, Basophils (%) (Auto) 0.4, Sodium Level 143, Potassium Level 4.1, Chloride Level 99, Carbon Dioxide Level 23, Anion Gap 21H, Blood Urea Nitrogen 102H, Creatinine 4.9H, Estimat Glomerular Filtration Rate 10.1, Glucose Level 144H, Calcium Level 9.7, Random Vancomycin Level 45.7 Height (Feet): 5 Height (Inches): 3.00 Weight (Pounds): [address] A/P (07/18) noted Omar Mckoy MD Jul 29, 2019 10:09
--- NOTE | 2019-07-29 10:11 | NUR ---
RD ASSESSMENT & RECOMMENDATIONS SEE CARE ACTIVITY FOR COMPLETE ASSESSMENT DAILY ESTIMATED NEEDS: Needs based on Wounds, HD 51.8kg 30-35 kcals/kg 5499-6166 total kcals 1.25-1.8 g protein/kg 65-93 g total protein Fluids per MD NUTRITION DIAGNOSIS: * Increased kcal and prot needs r/t wound healing and renal failure as evidenced by w/ multiple pressure injuries, including full thickness wound @ R hip, DTPI @ R humerous, L heel, sacrum (opened), R heel, R foot, and R 5th metatarsal, and unstageable wounds at L hallux + R malleolus, s/p recent permacath placement, HD dependent. * Swallowing difficulty R/T dysphagia as evidenced by s/p recent PEG placement, on GT feeding. CURRENT TF:Nepro @ 38ml/hr x 24 hrs ENTERAL NUTRITION RECOMMENDATIONS: Nepro @ 38ml/hr x 24 hrs to provide 912ml, 1642kcal, 74g prot, 663ml free water - Maintain current TF as tolerated - HOB over 30 degrees/ water flush per MD ADDITIONAL RECOMMENDATIONS: 1) Calibrated bedscale wt 2) Wound Care: add Nephrovite x 1 add Saw 1ptk BID once diarrhea resolves 3) Monitor diarrhea: + rectal tube, Culturelle BID + Imodium prn added -> last Imodium given 07/17 (consider giving daily) 4) Monitor BGs, consider NISS: BGs consistently mildly elevated 5) Monitor lytes and renal fxn: last phos elevated (5.5), check f/up phos
--- NOTE | 2019-07-29 11:31 | Cardiology Progress Note ---
Assessment/Plan Status: stable Assessment/Plan Assessment/Plan Assessment/Plan: Heart failure elevated BNP Elevated troponin HTN AMS Dysphagia s/p PEG ESRD on HD Syncope/fall -Serial EKG/Troponin - now down trending, no indication for cardiac cath -maintain HD -Echocardiogram pending -Continue aspirin -Continue statin -Continue lasix -Reduce coreg 3.125 BID re hypotension Subjective Cardiovascular: Reports: no symptoms Respiratory: Reports: no symptoms Gastrointestinal/Abdominal: Reports: no symptoms Genitourinary: Reports: no symptoms Subjective NO acute events, BP improved on lower dose coreg, no fevers, no CP/SOB Objective Last 24 Hour Vital Signs Date Time Temp Pulse Resp B/P (MAP) Pulse Ox O2 Delivery O2 Flow Rate FiO2 07/29/19 09:11 121 108/47 07/29/19 08:00 98.2 121 20 108/47 (67) 97 07/29/19 07:57 122 07/29/19 04:00 122 07/29/19 04:00 98.2 114 20 126/62 (83) 97 07/29/19 00:00 119 07/29/19 00:00 98.4 103 18 135/72 (93) 99 07/28/19 22:15 102 130/58 07/28/19 21:00 Nasal Cannula 2.0 07/28/19 20:00 98.1 102 18 130/58 (82) 99 07/28/19 20:00 100 07/28/19 16:00 97.9 99 22 110/59 (76) 98 07/28/19 16:00 101 07/28/19 15:43 97.8 07/28/19 12:00 123 07/28/19 12:00 97.8 72 20 141/80 (100) 98 General Appearance: no apparent distress, cachetic, lethargic EENT: PERRL/EOMI, normal ENT inspection, TMs normal, pharynx normal Neck: normal alignment, supple, normal inspection, no JVD Cardiovascular: normal peripheral pulses, normal rate, regular rhythm, regularly irregular Respiratory/Chest: chest wall non-tender, no respiratory distress Abdomen: no organomegaly Extremities: normal range of motion, normal inspection Neurologic: manager personal 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 normal, sensory deficit, disoriented, unresponsiveness Intake and Output 07/28/19 07/29/19 19:00 07:00 Output Total 800 ml 100 ml Balance -800 ml -100 ml Stool Total 800 ml 100 ml # Bowel Movements 2 1 Laboratory Tests Test 07/29/19 06:00 White Blood Count 17.6 K/UL (4.8-10.8) H Red Blood Count 2.82 M/UL (4.20-5.40) L Hemoglobin 8.5 G/DL (12.0-16.0) L Hematocrit 25.8 % (37.0-47.0) L Mean Corpuscular Volume 92 FL (80-99) Mean Corpuscular Hemoglobin 30.2 PG (27.0-31.0) Mean Corpuscular Hemoglobin Concent 32.9 G/DL (32.0-36.0) Red Cell Distribution Width 13.6 % (11.6-14.8) Platelet Count 415 K/UL (150-450) Mean Platelet Volume 7.8 FL (6.5-10.1) Neutrophils (%) (Auto) 77.4 % (45.0-75.0) H Lymphocytes (%) (Auto) 13.7 % (20.0-45.0) L Monocytes (%) (Auto) 7.8 % (1.0-10.0) Eosinophils (%) (Auto) 0.7 % (0.0-3.0) Basophils (%) (Auto) 0.4 % (0.0-2.0) Sodium Level 143 MMOL/L (136-145) Potassium Level 4.1 MMOL/L (3.5-5.1) Chloride Level 99 MMOL/L (98-107) Carbon Dioxide Level 23 MMOL/L (21-32) Anion Gap 21 mmol/L (5-15) H Blood Urea Nitrogen 102 mg/dL (7-18) H Creatinine 4.9 MG/DL (0.55-1.30) H Estimat Glomerular Filtration Rate 10.1 mL/min (>60) Glucose Level 144 MG/DL (74-106) H Calcium Level 9.7 MG/DL (8.5-10.1) Troponin I 0.070 ng/mL (0.000-0.056) Random Vancomycin Level 45.7 ug/mL Microbiology Date/Time Source Procedure Growth Status 07/26/19 15:00 Blood Blood Culture - Preliminary NO GROWTH AFTER 48 HOURS Resulted 07/26/19 14:50 Blood Blood Culture - Preliminary NO GROWTH AFTER 48 HOURS Resulted 07/28/19 03:50 Stool Clostridium difficile Toxin Assay - Final Complete Melchor Cerna MD Jul 29, 2019 11:31
[2019-07-29 11:53] LABS: APPEARANCE,URINE TURBID; BILIRUBIN, URINE NEGATIVE (NEGATIVE); GLUCOSE, URINE (UA) NEGATIVE (NEGATIVE); KETONES,URINE NEGATIVE (NEGATIVE); LEUKOCYTE ESTERASE ,URINE 3+ (NEGATIVE); NITRITE,URINE NEGATIVE (NEGATIVE); PH,URINE 5 (4.5-8.0); PROTEIN,URINE 3+ (NEGATIVE); UROBILINOGEN,URINE NORMAL MG/DL (0.0-1.0)
[2019-07-29 11:56] LABS: COLOR,URINE YELLOW
[2019-07-29 12:00] VITALS: BP 126/64
[2019-07-29] MEDS: Micafungin 100 MG in NS 110 ML IVPB SCH (12:01)
--- NOTE | 2019-07-29 12:43 | Cardiac Electrophysiology PN ---
Assessment/Plan Assessment/Plan 1. Sinus Tachycardia due to sepsis . WBC still 17.6. On Coreg 3.125 mg b.i.d. as well as IV antibiotic ECG today sinus tach 110. IF BP allows, increase Coreg to 6.25 bid 2. Hypertension. On Coreg 3.125 mg b.i.d. 3. Troponin leak and history of CAD and prior non-ST elevation myocardial infarction. Likely due to renal failure. EKG SR with LVH. Echocardiogram pending. FU Dr Cerna 4. End-stage renal disease, now on hemodialysis. Awaiting changing Aman to Perm Cath 5. Pneumonia, fever and sepsis. COVID-19 was ruled out. Antibiotics per ID. 6. Dysphagia, status post G-tube placement. GALLO RN and Dr. Brewster Subjective Subjective Tunneled HD catheter was postponed again today for high WBC. Had sinus tach again in 120s but now 105 Objective Last 24 Hour Vital Signs Date Time Temp Pulse Resp B/P (MAP) Pulse Ox O2 Delivery O2 Flow Rate FiO2 07/29/19 12:00 98.2 132 20 126/64 (84) 97 07/29/19 10:00 Nasal Cannula 2.0 07/29/19 09:11 121 108/47 07/29/19 09:00 Nasal Cannula 2.0 07/29/19 08:00 98.2 121 20 108/47 (67) 97 07/29/19 07:57 122 07/29/19 04:00 122 07/29/19 04:00 98.2 114 20 126/62 (83) 97 07/29/19 00:00 119 07/29/19 00:00 98.4 103 18 135/72 (93) 99 07/28/19 22:15 102 130/58 07/28/19 21:00 Nasal Cannula 2.0 07/28/19 20:00 98.1 102 18 130/58 (82) 99 07/28/19 20:00 100 07/28/19 16:00 97.9 99 22 110/59 (76) 98 07/28/19 16:00 101 07/28/19 15:43 97.8 Intake and Output 07/28/19 07/29/19 19:00 07:00 Output Total 800 ml 100 ml Balance -800 ml -100 ml Stool Total 800 ml 100 ml # Bowel Movements 2 1 Laboratory Tests Test 07/29/19 06:00 4/6/20 11:20 White Blood Count 17.6 K/UL (4.8-10.8) H Red Blood Count 2.82 M/UL (4.20-5.40) L Hemoglobin 8.5 G/DL (12.0-16.0) L Hematocrit 25.8 % (37.0-47.0) L Mean Corpuscular Volume 92 FL (80-99) Mean Corpuscular Hemoglobin 30.2 PG (27.0-31.0) Mean Corpuscular Hemoglobin Concent 32.9 G/DL (32.0-36.0) Red Cell Distribution Width 13.6 % (11.6-14.8) Platelet Count 415 K/UL (150-450) Mean Platelet Volume 7.8 FL (6.5-10.1) Neutrophils (%) (Auto) 77.4 % (45.0-75.0) H Lymphocytes (%) (Auto) 13.7 % (20.0-45.0) L Monocytes (%) (Auto) 7.8 % (1.0-10.0) Eosinophils (%) (Auto) 0.7 % (0.0-3.0) Basophils (%) (Auto) 0.4 % (0.0-2.0) Sodium Level 143 MMOL/L (136-145) Potassium Level 4.1 MMOL/L (3.5-5.1) Chloride Level 99 MMOL/L (98-107) Carbon Dioxide Level 23 MMOL/L (21-32) Anion Gap 21 mmol/L (5-15) H Blood Urea Nitrogen 102 mg/dL (7-18) H Creatinine 4.9 MG/DL (0.55-1.30) H Estimat Glomerular Filtration Rate 10.1 mL/min (>60) Glucose Level 144 MG/DL (74-106) H Calcium Level 9.7 MG/DL (8.5-10.1) Troponin I 0.070 ng/mL (0.000-0.056) Random Vancomycin Level 45.7 ug/mL Urine Color Yellow Urine Appearance Turbid Urine pH 5 (4.5-8.0) Urine Specific [place] 1.015 (1.005-1.035) Urine Protein 3+ (NEGATIVE) H Urine Glucose (UA) Negative (NEGATIVE) Urine Ketones Negative (NEGATIVE) Urine Blood 5+ (NEGATIVE) H Urine Nitrite Negative (NEGATIVE) Urine Bilirubin Negative (NEGATIVE) Urine Urobilinogen Normal MG/DL (0.0-1.0) Urine Leukocyte Esterase 3+ (NEGATIVE) H Urine RBC Tntc /HPF (0 - 2) H Urine WBC Tntc /HPF (0 - 2) H Urine Squamous Epithelial Cells Few /LPF (NONE/OCC) Urine Bacteria Moderate /HPF (NONE) H Urine Yeast Many /HPF (NONE) H Microbiology Date/Time Source Procedure Growth Status 07/26/19 15:00 Blood Blood Culture - Preliminary NO GROWTH AFTER 48 HOURS Resulted 07/26/19 14:50 Blood Blood Culture - Preliminary NO GROWTH AFTER 48 HOURS Resulted 07/28/19 03:50 Stool Clostridium difficile Toxin Assay - Final Complete Objective HEAD AND NECK: No JVD. LUNGS: Coarse rhonchi. CARDIOVASCULAR: Tachy S1 and S2 with no murmur ABDOMEN: Soft. EXTREMITIES: No pitting edema. GENITOURINARY: The patient has Aman catheter in the groin for dialysis. Cristopher Osman MD Jul 29, 2019 12:43
--- NOTE | 2019-07-29 13:46 | NUR ---
CASE MANAGEMENT:REVIEW 07/29/19 SI: SEPSIS D/T BACTEREMIA INFECTED PERMCATH. COVID 19 NOT DETECTED WBC+17.6 H/H-8.5/25.8 BUN+102 CR+4.9 TROPONIN(+) 0.070 IS: IV MICAFUNGIN Q24 IV ZOSYN Q12 COREG GT Q12 EPOETIN SQ MWF LACTOBACILLUS GT Q12 HEPARIN SQ Q12 : TELEMETRY STATUS DCP: FROM [facility] PLAN: STILL WITH RT FEMORAL TEMPORARY HD CATHETER IN PLACE...TUNNELED CATH TO BE PLACED ONCE CLEARED BY ID CONTINUE IV ANTIBIOTICS MONITOR WBC'S WHICH REMAIN ELEVATED SCHEDULED FOR DIALYSIS TODAY
--- NOTE | 2019-07-29 13:54 | NUR ---
DISCHARGE PLANNING CURRENTLY WAITING FOR CLEARANCE FROM ID TO INSERT TUNNELED DIALYSIS CATHETER PATIENT CANNOT RETURN TO SNF WITH A TEMPORARY FEMORAL CATHETER IN PLACE.
--- NOTE | 2019-07-29 14:59 | Surgery Progress Note ---
Surgery Progress Note Subjective Procedure Performed right femoral temporary HD catheter insertion Additional Comments leukocytosis h/h stable no acute events no active bleeding plan hD Objective Last 24 Hour Vital Signs Date Time Temp Pulse Resp B/P (MAP) Pulse Ox O2 Delivery O2 Flow Rate FiO2 07/29/19 12:00 98.2 132 20 126/64 (84) 97 07/29/19 12:00 122 07/29/19 10:00 Nasal Cannula 2.0 07/29/19 09:11 121 108/47 07/29/19 09:00 Nasal Cannula 2.0 07/29/19 08:00 98.2 121 20 108/47 (67) 97 07/29/19 07:57 122 07/29/19 04:00 122 07/29/19 04:00 98.2 114 20 126/62 (83) 97 07/29/19 00:00 119 07/29/19 00:00 98.4 103 18 135/72 (93) 99 07/28/19 22:15 102 130/58 07/28/19 21:00 Nasal Cannula 2.0 07/28/19 20:00 98.1 102 18 130/58 (82) 99 07/28/19 20:00 100 07/28/19 16:00 97.9 99 22 110/59 (76) 98 07/28/19 16:00 101 07/28/19 15:43 97.8 I&O Intake and Output 07/28/19 07/29/19 19:00 07:00 Output Total 800 ml 100 ml Balance -800 ml -100 ml Stool Total 800 ml 100 ml # Bowel Movements 2 1 Dressing: saturated Wound: clean Cardiovascular: RSR Respiratory: clear Abdomen: soft, non-tender, present bowel sounds Extremities: no edema, no tenderness, no cyanosis, other Laboratory Tests Test 07/29/19 06:00 07/29/19 11:20 White Blood Count 17.6 K/UL (4.8-10.8) H Red Blood Count 2.82 M/UL (4.20-5.40) L Hemoglobin 8.5 G/DL (12.0-16.0) L Hematocrit 25.8 % (37.0-47.0) L Mean Corpuscular Volume 92 FL (80-99) Mean Corpuscular Hemoglobin 30.2 PG (27.0-31.0) Mean Corpuscular Hemoglobin Concent 32.9 G/DL (32.0-36.0) Red Cell Distribution Width 13.6 % (11.6-14.8) Platelet Count 415 K/UL (150-450) Mean Platelet Volume 7.8 FL (6.5-10.1) Neutrophils (%) (Auto) 77.4 % (45.0-75.0) H Lymphocytes (%) (Auto) 13.7 % (20.0-45.0) L Monocytes (%) (Auto) 7.8 % (1.0-10.0) Eosinophils (%) (Auto) 0.7 % (0.0-3.0) Basophils (%) (Auto) 0.4 % (0.0-2.0) Sodium Level 143 MMOL/L (136-145) Potassium Level 4.1 MMOL/L (3.5-5.1) Chloride Level 99 MMOL/L (98-107) Carbon Dioxide Level 23 MMOL/L (21-32) Anion Gap 21 mmol/L (5-15) H Blood Urea Nitrogen 102 mg/dL (7-18) H Creatinine 4.9 MG/DL (0.55-1.30) H Estimat Glomerular Filtration Rate 10.1 mL/min (>60) Glucose Level 144 MG/DL (74-106) H Calcium Level 9.7 MG/DL (8.5-10.1) Troponin I 0.070 ng/mL (0.000-0.056) Random Vancomycin Level 45.7 ug/mL Urine Color Yellow Urine Appearance Turbid Urine pH 5 (4.5-8.0) Urine Specific [place] 1.015 (1.005-1.035) Urine Protein 3+ (NEGATIVE) H Urine Glucose (UA) Negative (NEGATIVE) Urine Ketones Negative (NEGATIVE) Urine Blood 5+ (NEGATIVE) H Urine Nitrite Negative (NEGATIVE) Urine Bilirubin Negative (NEGATIVE) Urine Urobilinogen Normal MG/DL (0.0-1.0) Urine Leukocyte Esterase 3+ (NEGATIVE) H Urine RBC Tntc /HPF (0 - 2) H Urine WBC Tntc /HPF (0 - 2) H Urine Squamous Epithelial Cells Few /LPF (NONE/OCC) Urine Bacteria Moderate /HPF (NONE) H Urine Yeast Many /HPF (NONE) H Plan Problems: (1) Decubitus skin ulcer Assessment & Plan: Pt presented on admission with multiple pressure injuries. Unstageable pressure injury R shoulder(L)3.8cm x (W)3.3cm. Base of wound is 100 % necrotic and dry. Marginal erythema along borders. No erythema or induration periwound. Reabsorbed DTPI R Humerus. Base of injury has dry peeling brown skin with underlying dry pink epithelial. R elbow pressure injury has resolved. Full thickness pressure injury R hip (L)7cm x (W)13.1cm. Base of wound is 70% fibrinous slough,10% necrotic ,20% moist pink granulation. Edges are macerated.Small amt seropurulent non-odorous exudate noted. NO erythema , induration or elevation in skin temp periwound. Opened DTPI Sacrum(L)9cm x (W)15cm. Base of wound is purple,indurated with an open wound at sacrococcygeal which has 100% slough(L)1.6cm x (W)1cm. Surrounding Skin hypopigmentation with areas of excoriation extending into perineum and perianal area. Unstageable pressure injury lateral R malleolus(L)2.5cm x (W)3cm. Base of wound is 100% dry necrosis. Edges adherent to base of wound. No erythema induration or fluctuance periwound. Reabsorbing DTPI R heel. Base of Heel is boggy,non-blanching erythema with dry peeling brown skin along edges.(L)4.2cm x (W)6cm. Resolving DTPI distal/lateral R foot. Stable dry brown eschar without fluctuance or induration(L)1cm x (W)1.5cm. Resolving DTPI Lateral R 5th metatarsal.Base of injury is dry,brown without fluctuance or induration.(L)0.6cm x (W)1cm Unstageable pressure injury L Hallux(L)4cm x (W)2.7cm. Base of wound is 80% necrotic,20% slough with marginal erythema along borders. No odor or exudate noted. DTPI L Heel. Base of injury maroon and fluctuant. Periwound is boggy but blanchable(L)5.5cm x (W)6.5cm. Tx.Plan: Cleanse R shoulder with Saline. Apply Therahoney. Apply Cavilon Periwound. Cover with Optifoam drsg. Change every 3 days and prn. Cleanse R hip with Saline. Apply Therahoney.Apply Moisture Barrier Periwound. Cover with Optifoam drsg. Change Daily and prn. Cleanse Sacrum with Saline. Apply Therahoney. Apply Moisture Barrier Paste periwound. Cover with Optifoam drsg. Change every 3 days and prn. Apply Moisture Barrier Paste to perineum and perianal areas with each incontinence care. Apply Betadine to R heel,Distal/lateral R foot ,R5th metatarsal. Cover with Optifoam drsg. Change every 3 days and prn. Apply Betadine to L hallux,and L heel. Cover each site with Optifoam drsg. Change every 3 days and prn. Reposition at least every 2hours or as tolerated. Place pillow between knees. off-load heels with pillow. (2) Fever Assessment & Plan: covid negative discussed with pcp and nephro may need to remove catheter as possible etiology covid negative c diff negative blood cultures from line. if positive will remove after next HD then line holiday blood cx with gram neg d/c line Line removed see note Line holiday new line placed see note cont hd Antibiotics as per infectious disease (3) Protein calorie malnutrition Assessment & Plan: DAILY ESTIMATED NEEDS: Needs based on Wounds, HD 51.8kg 30-35 kcals/kg 2197-0201 total kcals 1.25-1.8 g protein/kg 65-93 g total protein Fluids per MD mL/kg . total fluid mLs NUTRITION DIAGNOSIS: * Increased kcal and prot needs r/t wound healing and renal failure as evidenced by w/ multiple pressure injuries, pending re-evaluation, s/p recent PermCath placement, HD dependent. * Swallowing difficulty R/T dysphagia as evidenced by s/p recent PEG placement, on GT feeding. CURRENT TF:Jevity 1.2 @ 50ml/hr x 24 hrs ENTERAL NUTRITION RECOMMENDATIONS: Nepro @ 38ml/hr x 24 hrs to provide 912ml, 1642kcal, 74g prot, 663ml free water - Rec TF change to Nepro- HD dependent - Initiate Nepro @ 28ml/hr x 6 hrs, increase to goal as tolerated. - HOB over 30 degrees/ water flush per MD ADDITIONAL RECOMMENDATIONS: 1) Calibrated bedscale wt 2) Wound Care: add Nephrovite x 1 add Saw 1ptk BID when TF well tolerated @ goal 3) Check phos and mag levels 4) Monitor BGs, need for nISS 5) Add probiotics: h/o LBM prev adm, prolonged use of abx (4) Pressure ulcer Anshul Nava Jul 29, 2019 14:58
[2019-07-29 16:00] VITALS: BP 121/57
--- NOTE | 2019-07-29 19:20 | NUR ---
NURSE NOTES: Received pt and report from HYUN Tidwell. Observed pt resting in bed with both eyes open and receiving HD with HD nurse at bedside. Pt is A/Ox1. 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 Pt has a Sanchez in placed per MD order for retention; urine light neal. Pt has rectal tube in placed; observed brown stool is rectal tube bag collection. Pt is on 2L NC. Bed is in the lowest position and locked. Call light and bedside table is within reach. No signs/symptoms of acute distress noted at this time. Will continue plan of care.
[2019-07-29 20:00] VITALS: BP 116/66
--- NOTE | 2019-07-29 20:00 | NUR ---
NURSE NOTES: HD completed. Per HD nurse, Jovan Frias, 0mL removed.
[2019-07-29] MEDS: Dyna-Hex 2% Top Sol 2oz TOPIC SCH (20:25)
[2019-07-29] MEDS: Epoetin Alfa-EPBX(ESRD on dialysis)4000 units/ml vial SUBQ SCH (21:03)
--- NOTE | 2019-07-29 21:07 | Infectious Diseases Prog Note ---
Assessment/Plan Assessment/Plan ASSESSMENT AND PLAN: 1. sepsis, fevers, leukocytosis, ? pna, diarrhea, covid-19 test negative, ? right hip wound infection pseudomonas bacteremia/line infection, pseudomonas pna leukocytosis worse - ? etiology fungemia risk, uti - + ua noted - zosyn, add amikacin and vancomycin, micafungin added for fungemia risk - can place permanent HD line if leukocytosis continues to improve in next 1- 2 days - wound care per surgery and protocol - monitor labs - blood culture negative, f/u on urine culture - monitor chest x-ray - d/w Dr. Brewster - d/w RN - please see multiple orders - please see multiple orders - d/w Radiology x 2 about perma-cath placement 2. The patient has end-stage renal disease, on hemodialysis - temporary HD line now 3. Skin care protocol. 4. Anemia. 5. The patient has history of dysphagia, on G-tube. 6. Aspiration risk. 7. Hypertension. 8. Altered mental status. 9. History of Strep viridans bacteremia. 10. Hypertension, treatment per primary care team. 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 12. History of non-STEMI and CAD. 13. History of rhabdomyolysis. 14. History of acute renal failure, on dialysis. 15. Coronary artery disease. 16. No known drug allergies. 17. Social history negative. 18. Family history noncontributory. 19. MAR was noted. 20. Case discussed with RN. 21. Isolation in the acute care. 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 Subjective Constitutional: Denies: fever HEENT: Denies: congestion Respiratory: Denies: shortness of breath Cardiovascular: Denies: chest pain Gastrointestinal/Abdominal: Reports: diarrhea, other - + rectal tube ; Denies: nausea, vomiting Genitourinary: Reports: other - + hargrove Neurologic: Denies: headache Psychiatric: Reports: other - NA Skin: Denies: rash Hematologic: Denies: bleeding Musculoskeletal: Denies: pain Allergies: Coded Allergies: No Known Allergies (Unverified , 06/24/19) Objective Vital Signs Last 24 Hour Vital Signs Date Time Temp Pulse Resp B/P (MAP) Pulse Ox O2 Delivery O2 Flow Rate FiO2 07/29/19 16:00 98.2 97 20 121/57 (78) 97 07/29/19 15:14 106 07/29/19 12:00 98.2 132 20 126/64 (84) 97 07/29/19 12:00 122 07/29/19 10:00 Nasal Cannula 2.0 07/29/19 09:11 121 108/47 07/29/19 09:00 Nasal Cannula 2.0 07/29/19 08:00 98.2 121 20 108/47 (67) 97 07/29/19 07:57 122 07/29/19 04:00 122 07/29/19 04:00 98.2 114 20 126/62 (83) 97 07/29/19 00:00 119 07/29/19 00:00 98.4 103 18 135/72 (93) 99 07/28/19 22:15 102 130/58 07/28/19 21:00 Nasal Cannula 2.0 Height (Feet): 5 Height (Inches): 3.00 Weight (Pounds): 139 General Appearance: no acute distress HEENT: normocephalic, atraumatic, anicteric, mucous membranes moist Respiratory/Chest: crackles/rales, rhonchi - bilaterally Cardiovascular: normal rate, regular rhythm, no gallop/murmur, no JVD Abdomen: normal bowel sounds, soft, non tender, no organomegaly, non distended Genitourinary: other - + hargrove - urine clear Extremities: no cyanosis Skin: no rash Neurologic/Psychiatric: extension service specialist in charge 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 normal, alert, responsive Lymphatic: no neck adenopathy Musculoskeletal: no effusion Objective Chest - 07/16/19 - Procedure: XRAY Chest 1v Indication: Dyspnea Comparison: 07/14/2019 A single view chest radiograph was obtained. Findings: Pulmonary vessel congestion noted. Heart is enlarged. Interstitial edema is mild. Bones are osteopenic. IMPRESSION: Mild interstitial edema Chest x-ray - 07/19/19 - Impression: Worsening of aeration with increasing haziness of the pulmonary vascularity and development of hazy perihilar airspace opacities. Findings likely related to fluid overload/CHF. Superimposed infection however not excluded. Clinical correlation and follow-up recommended. CT scan of abdomen and pelvis: IMPRESSION: Limited exam without intravenous contrast. Within these limitations: * Patchy opacities in the lung bases, left greater than right. Findings may related to subsegmental atelectasis. Possibility of pneumonia however not excluded. * Extensive coronary arterial calcifications. * Dialysis catheter partially visualized. * Indwelling gastrostomy and rectal tubes. * No intraabdominal fluid collection/abscess. * Interval removal of Hargrove catheter. Bladder is mildly distended but otherwise unremarkable. * Extensive atherosclerotic vascular calcifications. * Irregularity the skin overlying the inferior aspect of the sacrum. Correlate clinically to exclude the possibility of sacral decubitus ulcer. No subcutaneous fluid collection/abscess. * Osteopenia and severe degenerative changes of the spine with unchanged vertebral body compression deformities. * 1.5 cm cystic l Chest x-ray - 07/22/19 - Procedure: XRAY Chest 1v Indication: Dyspnea Comparison: 07/19/2019 A single view chest radiograph was obtained. Findings: No definite infiltrate or pulmonary vascular congestion identified. Right permacath was removed. The heart is enlarged. The aorta is mildly enlarged consistent with atherosclerotic vascular disease. The bones are osteopenic. There are thoracic vertebral enthesophytes at multiple levels. Chest x-ray - 07/28/19 - Impression: COMPARISON: Chest x-rays dated 07/14/19, 07/06/19, 07/01/19. FINDINGS: Lungs: Mild pulmonary vascular congestion, improved compared to the prior exam. No new focal consolidation. Pleural space: Unremarkable. The costophrenic angles are sharp. No visible pneumothorax. Heart: Unremarkable. No cardiomegaly. Mediastinum: Unremarkable. Bones/joints: Unremarkable. Vasculature: Atherosclerotic calcifications are noted within the aortic arch. Tubes, lines and devices: Interval removal of the right IJ central venous catheter. Telemetry leads overlie the thorax. IMPRESSION: Mild pulmonary vascular congestion, improved compared to the prior exam. No acute disease Microbiology Date/Time Source Procedure Growth Status 07/26/19 15:00 Blood Blood Culture - Preliminary NO GROWTH AFTER 48 HOURS Resulted 07/20/19 04:30 Sputum Induced Gram Stain - Final Complete 07/20/19 04:30 Sputum Culture - Final Pseudomonas Aeruginosa Melanie Albicans Usual Respiratory Cristina Complete 07/28/19 03:50 Stool Clostridium difficile Toxin Assay - Final Complete 07/20/19 13:18 Catheter Site Catheter Tip Culture - Final NO GROWTH AFTER 4 DAYS Complete Microbiology Date/Time Source Procedure Growth Status 07/28/19 03:50 Stool Clostridium difficile Toxin Assay - Final Complete Laboratory Tests Test 07/29/19 06:00 07/29/19 11:20 White Blood Count 17.6 K/UL (4.8-10.8) H Red Blood Count 2.82 M/UL (4.20-5.40) L Hemoglobin 8.5 G/DL (12.0-16.0) L Hematocrit 25.8 % (37.0-47.0) L Mean Corpuscular Volume 92 FL (80-99) Mean Corpuscular Hemoglobin 30.2 PG (27.0-31.0) Mean Corpuscular Hemoglobin Concent 32.9 G/DL (32.0-36.0) Red Cell Distribution Width 13.6 % (11.6-14.8) Platelet Count 415 K/UL (150-450) Mean Platelet Volume 7.8 FL (6.5-10.1) Neutrophils (%) (Auto) 77.4 % (45.0-75.0) H Lymphocytes (%) (Auto) 13.7 % (20.0-45.0) L Monocytes (%) (Auto) 7.8 % (1.0-10.0) Eosinophils (%) (Auto) 0.7 % (0.0-3.0) Basophils (%) (Auto) 0.4 % (0.0-2.0) Sodium Level 143 MMOL/L (136-145) Potassium Level 4.1 MMOL/L (3.5-5.1) Chloride Level 99 MMOL/L (98-107) Carbon Dioxide Level 23 MMOL/L (21-32) Anion Gap 21 mmol/L (5-15) H Blood Urea Nitrogen 102 mg/dL (7-18) H Creatinine 4.9 MG/DL (0.55-1.30) H Estimat Glomerular Filtration Rate 10.1 mL/min (>60) Glucose Level 144 MG/DL (74-106) H Calcium Level 9.7 MG/DL (8.5-10.1) Troponin I 0.070 ng/mL (0.000-0.056) Random Vancomycin Level 45.7 ug/mL Hepatitis B Surface Antigen Negative (NEGATIVE) Urine Color Yellow Urine Appearance Turbid Urine pH 5 (4.5-8.0) Urine Specific [place] 1.015 (1.005-1.035) Urine Protein 3+ (NEGATIVE) H Urine Glucose (UA) Negative (NEGATIVE) Urine Ketones Negative (NEGATIVE) Urine Blood 5+ (NEGATIVE) H Urine Nitrite Negative (NEGATIVE) Urine Bilirubin Negative (NEGATIVE) Urine Urobilinogen Normal MG/DL (0.0-1.0) Urine Leukocyte Esterase 3+ (NEGATIVE) H Urine RBC Tntc /HPF (0 - 2) H Urine WBC Tntc /HPF (0 - 2) H Urine Squamous Epithelial Cells Few /LPF (NONE/OCC) Urine Bacteria Moderate /HPF (NONE) H Urine Yeast Many /HPF (NONE) H Current Medications Medications (Trade) Dose Ordered Sig/Joan Route PRN Reason Start Time Stop Time Status Last Admin Dose Admin Acetaminophen (Tylenol) 650 mg Q4H PRN ORAL Mild Pain (Pain Scale 1-3) 07/14/19 14:45 08/13/19 14:44 07/22/19 08:45 Amikacin Protocol (Amikacin pharmacy to dose) 1 ea DAILY PRN MISC Per rx protocol 07/27/19 16:30 08/26/19 16:29 Atorvastatin Calcium (Lipitor) 10 mg QHS GT 07/14/19 21:00 10/12/19 20:59 07/28/19 22:14 Carvedilol (Coreg) 3.125 mg EVERY 12 HOURS ORAL 07/27/19 21:00 08/18/19 08:59 07/29/19 09:11 Chlorhexidine Gluconate (Cari-Hex 2%) 1 applic DAILY@1999 TOPIC 07/15/19 20:00 10/13/19 19:59 07/29/19 20:25 Dextrose (Dextrose 50%) 25 ml Q30M PRN IV Hypoglycemia 07/14/19 14:45 10/12/19 14:44 Dextrose (Dextrose 50%) 50 ml Q30M PRN IV Hypoglycemia 07/14/19 14:45 10/12/19 14:44 Epoetin Dion (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)) 4,000 unit MON-MON-MON SUBQ 07/24/19 21:00 10/22/19 20:59 07/26/19 21:00 Heparin Sodium (Porcine) (Heparin 5000 units/ml) 5,000 units EVERY 12 HOURS SUBQ 07/14/19 21:00 08/28/19 20:59 07/29/19 09:12 Hydralazine HCl (Apresoline) 10 mg Q4H PRN IV For High Blood Pressure 07/14/19 15:30 10/12/19 15:29 Lactobacillus Acidophilus (Culturelle) 1 tab Q12HR GT 07/15/19 12:14 10/13/19 12:13 07/29/19 09:11 Loperamide HCl (Imodium) 2 mg Q6H PRN NG Diarrhea 07/18/19 09:00 08/17/19 08:59 07/18/19 10:37 Micafungin Sodium 100 mg/Sodium Chloride 110 ml @ 110 mls/hr Q24H IVPB 07/28/19 12:00 08/04/19 11:59 07/29/19 12:01 Ondansetron HCl (Zofran) 4 mg Q6H PRN IVP Nausea & Vomiting 07/14/19 14:45 08/13/19 14:44 Piperacillin Sod/ Tazobactam Sod 3.375 gm/Dextrose 110 ml @ 27.5 mls/hr EVERY 12 HOURS IVPB 07/27/19 21:00 08/01/19 20:59 07/29/19 09:14 Tramadol HCl (Ultram) 25 mg Q6H PRN ORAL For Pain 07/28/19 12:30 08/04/19 12:29 07/28/19 15:13 Vancomycin HCl (Vanco rx to dose) 1 ea DAILY PRN MISC Per rx protocol 07/27/19 16:30 08/26/19 16:29 Ana Rosado MD Jul 29, 2019 21:07
[2019-07-30] VITALS (17 sets, daily range): BP systolic 108–165; BP diastolic 48–87
[2019-07-30 07:26] LABS: HEMATOCRIT 23.4 % (37.0-47.0); HEMOGLOBIN 7.7 G/DL (12.0-16.0); MEAN CORPUSCULAR VOLUME 91 FL (80-99); PLATELET COUNT 384 K/UL (150-450); RED BLOOD COUNT 2.56 M/UL (4.20-5.40); RED CELL DISTRIBUTION WIDTH 12.7 % (11.6-14.8); WHITE BLOOD COUNT 12.7 K/UL (4.8-10.8)
--- NOTE | 2019-07-30 07:33 | NUR ---
HAND-OFF: Report given to HYUN Colindres. Endorsed to HYUN Colindres that pt only produced 50mL of urine in Sanchez last night. HYUN Colindres will follow up with MD. Pt is in stable condition. Plan of care endorsed.
[2019-07-30 07:40] LABS: ANION GAP 15 mmol/L (5-15); BLOOD UREA NITROGEN 60 mg/dL (7-18); CALCIUM 9.9 MG/DL (8.5-10.1); CARBON DIOXIDE 23 MMOL/L (21-32); CHLORIDE 102 MMOL/L (98-107); CREATININE 3.2 MG/DL (0.55-1.30); POTASSIUM 3.6 MMOL/L (3.5-5.1); SODIUM 140 MMOL/L (136-145)
--- NOTE | 2019-07-30 08:00 | NUR ---
NURSE NOTES: Received patient from Lashell Meeks. Patient is laying comfortably in bed. Opens eyes spontaneously when name is called. tracks and focuses when spoken to. weak X [address] Tube feeding running. Aspiration precautions in place. Fall precautions in place. Repositioned patient for comfort. Sanchez catheter draining scant amount of neal Urine. Dr. Mckoy in this morning and seen patient. Will anticipate and attend to patients needs all throughout this shift.
[2019-07-30] MEDS: Lactobacillus-GG tablet GT SCH ×2 (08:51→21:11)
[2019-07-30] MEDS: Piperacillin/Tazobactam 3.375 GM in D5W 110 ML IVPB SCH ×2 (08:52→21:09)
--- NOTE | 2019-07-30 08:56 | Urology Progress Note ---
Assessment/Plan Status: stable Assessment/Plan: 1. Hematuria, which was previously gross and now microscopic. 2. End-stage renal disease, on hemodialysis. 3. Urinary retention history, now with incontinence. 4. Probable neurogenic bladder. 5. Pyuria. 6. Proteinuria. 7. History of acute kidney injury. 9. Nephrolithiasis. 8. Sepsis? monitor clinically abx as ordered, per ID hargrove now indwelling cysto later HD per granulator f/u on last blood cx Subjective Allergies: Coded Allergies: No Known Allergies (Unverified , 06/24/19) Subjective all noted, hargrove placed indwelling yest Objective Last 24 Hour Vital Signs Date Time Temp Pulse Resp B/P (MAP) Pulse Ox O2 Delivery O2 Flow Rate FiO2 07/30/19 08:00 98.6 105 20 132/62 (85) 99 07/30/19 04:00 102 07/30/19 04:00 99.4 104 18 115/68 (84) 97 07/30/19 00:07 95 07/30/19 00:00 98.1 95 19 142/65 (90) 96 07/29/19 21:05 92 116/66 07/29/19 21:00 Nasal Cannula 2.0 07/29/19 20:00 98.2 92 19 116/66 (83) 97 07/29/19 19:11 101 07/29/19 16:00 98.2 97 20 121/57 (78) 97 07/29/19 15:14 106 07/29/19 12:00 98.2 132 20 126/64 (84) 97 07/29/19 12:00 122 07/29/19 10:00 Nasal Cannula 2.0 07/29/19 09:11 121 108/47 07/29/19 09:00 Nasal Cannula 2.0 Intake and Output 07/29/19 07/30/19 19:00 07:00 Intake Total 38 ml 618 ml Output Total 500 ml 250 ml Balance -462 ml 368 ml Free Water 200 ml Tube Feeding 38 ml 418 ml Output Urine Total 200 ml 50 ml Stool Total 300 ml 200 ml Hemodialysis UF 0 ml Microbiology Date/Time Source Procedure Growth Status 07/26/19 15:00 Blood Blood Culture - Preliminary NO GROWTH AFTER 72 HOURS Resulted 07/20/19 04:30 Sputum Induced Gram Stain - Final Complete 07/20/19 04:30 Sputum Culture - Final Pseudomonas Aeruginosa Melanie Albicans Usual Respiratory Cristina Complete 07/28/19 03:50 Stool Clostridium difficile Toxin Assay - Final Complete 07/20/19 13:18 Catheter Site Catheter Tip Culture - Final NO GROWTH AFTER 4 DAYS Complete Current Medications Medications (Trade) Dose Ordered Sig/Joan Route PRN Reason Start Time Stop Time Status Last Admin Dose Admin Acetaminophen (Tylenol) 650 mg Q4H PRN ORAL Mild Pain (Pain Scale 1-3) 07/14/19 14:45 08/13/19 14:44 07/22/19 08:45 Amikacin Protocol (Amikacin pharmacy to dose) 1 ea DAILY PRN MISC Per rx protocol 07/27/19 16:30 08/26/19 16:29 Atorvastatin Calcium (Lipitor) 10 mg QHS GT 07/14/19 21:00 10/12/19 20:59 07/29/19 21:03 Carvedilol (Coreg) 3.125 mg EVERY 12 HOURS ORAL 07/27/19 21:00 08/18/19 08:59 07/29/19 21:05 Chlorhexidine Gluconate (Cari-Hex 2%) 1 applic DAILY@1999 TOPIC 07/15/19 20:00 10/13/19 19:59 07/29/19 20:25 Dextrose (Dextrose 50%) 25 ml Q30M PRN IV Hypoglycemia 07/14/19 14:45 10/12/19 14:44 Dextrose (Dextrose 50%) 50 ml Q30M PRN IV Hypoglycemia 07/14/19 14:45 10/12/19 14:44 Epoetin Dion (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)) 4,000 unit MON-MON-MON SUBQ 07/24/19 21:00 10/22/19 20:59 07/29/19 21:03 Heparin Sodium (Porcine) (Heparin 5000 units/ml) 5,000 units EVERY 12 HOURS SUBQ 07/14/19 21:00 08/28/19 20:59 07/29/19 09:12 Hydralazine HCl (Apresoline) 10 mg Q4H PRN IV For High Blood Pressure 07/14/19 15:30 10/12/19 15:29 Lactobacillus Acidophilus (Culturelle) 1 tab Q12HR GT 07/15/19 12:14 10/13/19 12:13 07/29/19 21:04 Loperamide HCl (Imodium) 2 mg Q6H PRN NG Diarrhea 07/18/19 09:00 08/17/19 08:59 07/18/19 10:37 Micafungin Sodium 100 mg/Sodium Chloride 110 ml @ 110 mls/hr Q24H IVPB 07/28/19 12:00 08/04/19 11:59 07/29/19 12:01 Ondansetron HCl (Zofran) 4 mg Q6H PRN IVP Nausea & Vomiting 07/14/19 14:45 08/13/19 14:44 Piperacillin Sod/ Tazobactam Sod 3.375 gm/Dextrose 110 ml @ 27.5 mls/hr EVERY 12 HOURS IVPB 07/27/19 21:00 08/01/19 20:59 07/29/19 21:03 Tramadol HCl (Ultram) 25 mg Q6H PRN ORAL For Pain 07/28/19 12:30 08/04/19 12:29 07/28/19 15:13 Vancomycin HCl (Vanco rx to dose) 1 ea DAILY PRN MISC Per rx protocol 07/27/19 16:30 08/26/19 16:29 Laboratory Tests 07/29/19 11:20: Urine Color Yellow, Urine Appearance Turbid, Urine pH 5, Urine Specific [place] 1.015, Urine Protein 3+H, Urine Glucose (UA) Negative, Urine Ketones Negative, Urine Blood 5+H, Urine Nitrite Negative, Urine Bilirubin Negative, Urine Urobilinogen Normal, Urine Leukocyte Esterase 3+H, Urine RBC TntcH, Urine WBC TntcH, Urine Squamous Epithelial Cells Few, Urine Bacteria ModerateH, Urine Yeast ManyH 07/30/19 06:27: White Blood Count 12.7H, Red Blood Count 2.56L, Hemoglobin 7.7L, Hematocrit 23.4L, Mean Corpuscular Volume 91, Mean Corpuscular Hemoglobin 30.2, Mean Corpuscular Hemoglobin Concent 33.0, Red Cell Distribution Width 12.7, Platelet Count 384, Mean Platelet Volume 7.7, Neutrophils (%) (Auto) , Lymphocytes (%) ( Auto) , Monocytes (%) (Auto) , Eosinophils (%) (Auto) , Basophils (%) (Auto) , Differential Total Cells Counted 100, Neutrophils % (Manual) 79H, Lymphocytes % (Manual) 16L, Monocytes % (Manual) 3, Eosinophils % (Manual) 2, Basophils % ( Manual) 0, Band Neutrophils 0, Platelet Estimate Adequate, Platelet Morphology Normal, Hypochromasia 3+, Anisocytosis 1+, Sodium Level 140, Potassium Level 3.6 , Chloride Level 102, Carbon Dioxide Level 23, Anion Gap 15, Blood Urea Nitrogen 60H, Creatinine 3.2H, Estimat Glomerular Filtration Rate 16.6, Glucose Level 124H, Calcium Level 9.9 Height (Feet): 5 Height (Inches): 3.00 Weight (Pounds): [address] A/P (07/18) noted Omar Mckoy MD Jul 30, 2019 08:55
[2019-07-30] MEDS: Heparin 5000 units/ml inj SUBQ SCH ×2 (09:11→21:00)
--- NOTE | 2019-07-30 09:28 | Cardiac Electrophysiology PN ---
Assessment/Plan Assessment/Plan 1. Sinus Tachycardia due to sepsis . WBC down to 12K On Coreg 3.125 mg b.i.d. as well as IV antibiotic ECG sinus tach 110. Increase Coreg to 6.25 bid 2. Hypertension. Increase Coreg to 6.26 mg b.i.d.( Hold on HD days if SBP<110) 3. Troponin leak and history of CAD and prior NSTEMI. Likely due to renal failure. EKG SR with LVH. Echo EF 65%. 4. End-stage renal disease, now on hemodialysis. Awaiting changing Aman to Perm Cath 5. Pneumonia, fever and sepsis. COVID-19 was ruled out. Antibiotics per ID. 6. Dysphagia, status post G-tube placement. DW RN and Dr. Brewster Subjective Subjective Tunneled HD catheter still pending for high WBC. Had HD yesterday but didn't remove fluid for low BP Objective Last 24 Hour Vital Signs Date Time Temp Pulse Resp B/P (MAP) Pulse Ox O2 Delivery O2 Flow Rate FiO2 07/30/19 08:52 105 132/62 07/30/19 08:00 98.6 105 20 132/62 (85) 99 07/30/19 04:00 102 07/30/19 04:00 99.4 104 18 115/68 (84) 97 07/30/19 00:07 95 07/30/19 00:00 98.1 95 19 142/65 (90) 96 07/29/19 21:05 92 116/66 07/29/19 21:00 Nasal Cannula 2.0 07/29/19 20:00 98.2 92 19 116/66 (83) 97 07/29/19 19:11 101 07/29/19 16:00 98.2 97 20 121/57 (78) 97 07/29/19 15:14 106 07/29/19 12:00 98.2 132 20 126/64 (84) 97 07/29/19 12:00 122 07/29/19 10:00 Nasal Cannula 2.0 Intake and Output 07/29/19 07/30/19 19:00 07:00 Intake Total 38 ml 618 ml Output Total 500 ml 250 ml Balance -462 ml 368 ml Free Water 200 ml Tube Feeding 38 ml 418 ml Output Urine Total 200 ml 50 ml Stool Total 300 ml 200 ml Hemodialysis UF 0 ml Laboratory Tests Test 07/29/19 11:20 07/30/19 06:27 Urine Color Yellow Urine Appearance Turbid Urine pH 5 (4.5-8.0) Urine Specific [place] 1.015 (1.005-1.035) Urine Protein 3+ (NEGATIVE) H Urine Glucose (UA) Negative (NEGATIVE) Urine Ketones Negative (NEGATIVE) Urine Blood 5+ (NEGATIVE) H Urine Nitrite Negative (NEGATIVE) Urine Bilirubin Negative (NEGATIVE) Urine Urobilinogen Normal MG/DL (0.0-1.0) Urine Leukocyte Esterase 3+ (NEGATIVE) H Urine RBC Tntc /HPF (0 - 2) H Urine WBC Tntc /HPF (0 - 2) H Urine Squamous Epithelial Cells Few /LPF (NONE/OCC) Urine Bacteria Moderate /HPF (NONE) H Urine Yeast Many /HPF (NONE) H White Blood Count 12.7 K/UL (4.8-10.8) H Red Blood Count 2.56 M/UL (4.20-5.40) L Hemoglobin 7.7 G/DL (12.0-16.0) L Hematocrit 23.4 % (37.0-47.0) L Mean Corpuscular Volume 91 FL (80-99) Mean Corpuscular Hemoglobin 30.2 PG (27.0-31.0) Mean Corpuscular Hemoglobin Concent 33.0 G/DL (32.0-36.0) Red Cell Distribution Width 12.7 % (11.6-14.8) Platelet Count 384 K/UL (150-450) Mean Platelet Volume 7.7 FL (6.5-10.1) Neutrophils (%) (Auto) % (45.0-75.0) Lymphocytes (%) (Auto) % (20.0-45.0) Monocytes (%) (Auto) % (1.0-10.0) Eosinophils (%) (Auto) % (0.0-3.0) Basophils (%) (Auto) % (0.0-2.0) Differential Total Cells Counted 100 Neutrophils % (Manual) 79 % (45-75) H Lymphocytes % (Manual) 16 % (20-45) L Monocytes % (Manual) 3 % (1-10) Eosinophils % (Manual) 2 % (0-3) Basophils % (Manual) 0 % (0-2) Band Neutrophils 0 % (0-8) Platelet Estimate Adequate Platelet Morphology Normal Hypochromasia 3+ Anisocytosis 1+ Sodium Level 140 MMOL/L (136-145) Potassium Level 3.6 MMOL/L (3.5-5.1) Chloride Level 102 MMOL/L (98-107) Carbon Dioxide Level 23 MMOL/L (21-32) Anion Gap 15 mmol/L (5-15) Blood Urea Nitrogen 60 mg/dL (7-18) H Creatinine 3.2 MG/DL (0.55-1.30) H Estimat Glomerular Filtration Rate 16.6 mL/min (>60) Glucose Level 124 MG/DL (74-106) H Calcium Level 9.9 MG/DL (8.5-10.1) Microbiology Date/Time Source Procedure Growth Status 07/28/19 03:50 Stool Clostridium difficile Toxin Assay - Final Complete Objective HEAD AND NECK: No JVD. LUNGS: Coarse rhonchi. CARDIOVASCULAR: Tachy S1 and S2 with no murmur ABDOMEN: Soft. EXTREMITIES: No pitting edema. GENITOURINARY: The patient has Aman catheter in the groin for dialysis. Cristopher Osman MD Jul 30, 2019 09:28
--- NOTE | 2019-07-30 09:42 | General Progress Note ---
Assessment/Plan Status: stable Assessment/Plan: 1. End-stage renal disease, on hemodialysis. 2. Anemia. 3. Dysphagia, status post G-tube placement. 4. Pneumonia. 5. Pancreatic cyst. 6. Hypertension. 7. Diarrhea 8. Leukocytosis C.diff>> neg imodium prn GTF abx per ID HD per nephrology repeal labs in am transfuse if hgb drops below 7 fu urology for hematuria pending placement Subjective ROS Limited/Unobtainable: No Allergies: Coded Allergies: No Known Allergies (Unverified , 06/24/19) Objective Last 24 Hour Vital Signs Date Time Temp Pulse Resp B/P (MAP) Pulse Ox O2 Delivery O2 Flow Rate FiO2 07/30/19 08:52 105 132/62 07/30/19 08:00 98.6 105 20 132/62 (85) 99 07/30/19 04:00 102 07/30/19 04:00 99.4 104 18 115/68 (84) 97 07/30/19 00:07 95 07/30/19 00:00 98.1 95 19 142/65 (90) 96 07/29/19 21:05 92 116/66 07/29/19 21:00 Nasal Cannula 2.0 07/29/19 20:00 98.2 92 19 116/66 (83) 97 07/29/19 19:11 101 07/29/19 16:00 98.2 97 20 121/57 (78) 97 07/29/19 15:14 106 07/29/19 12:00 98.2 132 20 126/64 (84) 97 07/29/19 12:00 122 07/29/19 10:00 Nasal Cannula 2.0 Intake and Output 07/29/19 07/30/19 19:00 07:00 Intake Total 38 ml 618 ml Output Total 500 ml 250 ml Balance -462 ml 368 ml Free Water 200 ml Tube Feeding 38 ml 418 ml Output Urine Total 200 ml 50 ml Stool Total 300 ml 200 ml Hemodialysis UF 0 ml Laboratory Tests 07/29/19 11:20: Urine Color Yellow, Urine Appearance Turbid, Urine pH 5, Urine Specific [place] 1.015, Urine Protein 3+H, Urine Glucose (UA) Negative, Urine Ketones Negative, Urine Blood 5+H, Urine Nitrite Negative, Urine Bilirubin Negative, Urine Urobilinogen Normal, Urine Leukocyte Esterase 3+H, Urine RBC TntcH, Urine WBC TntcH, Urine Squamous Epithelial Cells Few, Urine Bacteria ModerateH, Urine Yeast ManyH 07/30/19 06:27: White Blood Count 12.7H, Red Blood Count 2.56L, Hemoglobin 7.7L, Hematocrit 23.4L, Mean Corpuscular Volume 91, Mean Corpuscular Hemoglobin 30.2, Mean Corpuscular Hemoglobin Concent 33.0, Red Cell Distribution Width 12.7, Platelet Count 384, Mean Platelet Volume 7.7, Neutrophils (%) (Auto) , Lymphocytes (%) ( Auto) , Monocytes (%) (Auto) , Eosinophils (%) (Auto) , Basophils (%) (Auto) , Differential Total Cells Counted 100, Neutrophils % (Manual) 79H, Lymphocytes % (Manual) 16L, Monocytes % (Manual) 3, Eosinophils % (Manual) 2, Basophils % ( Manual) 0, Band Neutrophils 0, Platelet Estimate Adequate, Platelet Morphology Normal, Hypochromasia 3+, Anisocytosis 1+, Sodium Level 140, Potassium Level 3.6 , Chloride Level 102, Carbon Dioxide Level 23, Anion Gap 15, Blood Urea Nitrogen 60H, Creatinine 3.2H, Estimat Glomerular Filtration Rate 16.6, Glucose Level 124H, Calcium Level 9.9 Height (Feet): 5 Height (Inches): 3.00 Weight (Pounds): 139 General Appearance: lethargic EENT: normal ENT inspection Neck: supple Cardiovascular: normal rate Respiratory/Chest: decreased breath sounds Abdomen: normal bowel sounds, non tender, soft Extremities: non-tender Jun Mena MD Jul 30, 2019 09:42
--- NOTE | 2019-07-30 11:48 | Nephrology Progress Note ---
Assessment/Plan Plan #Acute renal failure recent started on HD in 06/2018- #Sepsis #Dementia #HTN #elevated troponin #Dysphagia s/p PEG #urinary retention - permacath removed 07/19 --> temp HD catheter 07/22 WBC downtredning permacath placement when cleared by ID --> next HD tomorrow - monitor BMP closley - agree with FWF 100 q6 - continue lasix 80 IV daily -> switch to oral on DC - cardiology eval - monitor UOP---> increasing - urology eval - continue antibiotics per ID - coreg 3.125mg BID - follow repeat blood cx- growing pseudomonas - check iron panel, ferritin-> ferritin supersaturated - continue epogen 4K TIW - monitor BMP, mag and phos daily for now Subjective Subjective blood cx growing pseudomona temp HD catheter 07/22 permcath removed 07/19 BP stable breathing stable on NC WBC downtredning permacath placement when cleared by ID Objective Objective Last 24 Hour Vital Signs Date Time Temp Pulse Resp B/P (MAP) Pulse Ox O2 Delivery O2 Flow Rate FiO2 07/30/19 08:52 105 132/62 07/30/19 08:00 103 07/30/19 08:00 98.6 105 20 132/62 (85) 99 07/30/19 04:00 102 07/30/19 04:00 99.4 104 18 115/68 (84) 97 07/30/19 00:07 95 07/30/19 00:00 98.1 95 19 142/65 (90) 96 07/29/19 21:05 92 116/66 07/29/19 21:00 Nasal Cannula 2.0 07/29/19 20:00 98.2 92 19 116/66 (83) 97 07/29/19 19:11 101 07/29/19 16:00 98.2 97 20 121/57 (78) 97 07/29/19 15:14 106 07/29/19 12:00 98.2 132 20 126/64 (84) 97 07/29/19 12:00 122 Intake and Output 07/29/19 07/30/19 19:00 07:00 Intake Total 38 ml 618 ml Output Total 500 ml 250 ml Balance -462 ml 368 ml Free Water 200 ml Tube Feeding 38 ml 418 ml Output Urine Total 200 ml 50 ml Stool Total 300 ml 200 ml Hemodialysis UF 0 ml Laboratory Tests 07/30/19 06:27: White Blood Count 12.7H, Red Blood Count 2.56L, Hemoglobin 7.7L, Hematocrit 23.4L, Mean Corpuscular Volume 91, Mean Corpuscular Hemoglobin 30.2, Mean Corpuscular Hemoglobin Concent 33.0, Red Cell Distribution Width 12.7, Platelet Count 384, Mean Platelet Volume 7.7, Neutrophils (%) (Auto) , Lymphocytes (%) ( Auto) , Monocytes (%) (Auto) , Eosinophils (%) (Auto) , Basophils (%) (Auto) , Differential Total Cells Counted 100, Neutrophils % (Manual) 79H, Lymphocytes % (Manual) 16L, Monocytes % (Manual) 3, Eosinophils % (Manual) 2, Basophils % ( Manual) 0, Band Neutrophils 0, Platelet Estimate Adequate, Platelet Morphology Normal, Hypochromasia 3+, Anisocytosis 1+, Sodium Level 140, Potassium Level 3.6 , Chloride Level 102, Carbon Dioxide Level 23, Anion Gap 15, Blood Urea Nitrogen 60H, Creatinine 3.2H, Estimat Glomerular Filtration Rate 16.6, Glucose Level 124H, Calcium Level 9.9 Height (Feet): 5 Height (Inches): 3.00 Weight (Pounds): 139 Objective General: NAD, A&O x 1, self only HEENT: NCAT, EOMi, PEERLA, nares patent and no symmetrical, no tonsillar exudates, mucous membranes moist CV: RRR, no murmurs, rubs, or gallops Pulm: CTAB, No wheezes, rhonchi, or rales, no accessory muscle usage or conversational dyspnea GI: Soft, nontender, nondistended, bowel sounds present, PEG tube in place, C/D/ I Neuro: CN 2-12 grossly intact bilaterally, no focal signs. Ext: No lower extremity edema bilaterally, LE contracted bilaterally Skin: Multiple pressure ulcers noted on hip/heels Lymph: No lymphadenopathy in upper extremity and lower extremity Rory Oconnor M.D. Jul 30, 2019 11:48
--- NOTE | 2019-07-30 11:56 | General Progress Note ---
Assessment/Plan Status: stable Assessment/Plan: 89-year-old female with PMH of acute renal failure, s/p right chest wall permacath on HD, dysphasia s/p PEG, multiple pressure wounds, HTN, h/o AMS was recently discharged from this facility for KAREN/rhabdo, unwitnessed fall, was [facility] and returned here due to fevers. Patient was admitted for persistent fevers and for sepsis/COVID 19 rule out. ED course: BMP 8000, troponin 0 0.347, patient given for septic work-up and will be admitted for further treatment. #Sepsis #Pseudomonas bacteremia #Pseudomonas PNA #leukocytosis #Diarrhea #ESRD on HD -continue inpatient level of care -COVID-19 NEGATIVE -c diff negative (07/16 and 07/25) -Imodium prn -CT abd/pelvis results reviewed -Permacath removed 07/19, line Cx negative -s/p temp cath right femoral 07/22 -07/25 BCx NGTD -CXR 07/27: mild pulmonary congestion, improved compared to previous -ID following: Zosyn, amikacin, vanc, micofungin -Nephro following: hold off on David catheter given rise in WBC -insert hargrove for accurate I/ and O/s, obtain UA, UCx -Spoke with ID, since WBC down, ok to place permacath today #Anemia of chronic dx -cont. to monitor for signs/symptoms of bleeding -check iron panel, ferritin-> ferritin supersaturated -epogen 4K TIW #Hypernatremia - resolved #Hyperkalemia - resolved #Hypokalemia - resolved -potassium replaced, ctm, replace PRN -FWF 100 cc q6 -Nephro following #HTN #elevated troponin #BNP elevated #Sinus tachycardia -trops stable 0.254, 0.240, 0.248 >>0.072 -likely due to demand ischemia, ESRD, sepsis -ASA, statin -off lasix for now given low bp -hydralazine PRN for SBP >160 -Carvedilol 3.25 mg BID -Cardio following, reccs appreciated #Hematuria #Possible Urinary retention. #Possible neurogenic bladder. -UA w/ evidence of RBCs, 4+ blood -Urology following #Dysphagia -s/p PEG -tolerating TF -Dietary and GI following, recs appreciated -d/w ST, pt currently unable to manage PO, recommends pt to f/u w/ST as o/p for o/p video swallow once more stable #Dementia -stable -neuro following, appreciate recs #Pressure wounds -Cont. wound care DVT ppx - heparin sc Time spent on encounter: 35 mins, >50% on counseling, coordination of care. D/w Dr. Rosado. Subjective Allergies: Coded Allergies: No Known Allergies (Unverified , 06/24/19) Subjective Follow up for recurrent sepsis, ESRD. COVID ruled out Persistent leukocytosis Blood culture from 07/18 growing GNR Objective Last 24 Hour Vital Signs Date Time Temp Pulse Resp B/P (MAP) Pulse Ox O2 Delivery O2 Flow Rate FiO2 07/30/19 08:52 105 132/62 07/30/19 08:00 103 07/30/19 08:00 98.6 105 20 132/62 (85) 99 07/30/19 04:00 102 07/30/19 04:00 99.4 104 18 115/68 (84) 97 07/30/19 00:07 95 07/30/19 00:00 98.1 95 19 142/65 (90) 96 07/29/19 21:05 92 116/66 07/29/19 21:00 Nasal Cannula 2.0 07/29/19 20:00 98.2 92 19 116/66 (83) 97 07/29/19 19:11 101 07/29/19 16:00 98.2 97 20 121/57 (78) 97 07/29/19 15:14 106 07/29/19 12:00 98.2 132 20 126/64 (84) 97 07/29/19 12:00 122 Intake and Output 07/29/19 07/30/19 19:00 07:00 Intake Total 38 ml 618 ml Output Total 500 ml 250 ml Balance -462 ml 368 ml Free Water 200 ml Tube Feeding 38 ml 418 ml Output Urine Total 200 ml 50 ml Stool Total 300 ml 200 ml Hemodialysis UF 0 ml Laboratory Tests 07/30/19 06:27: White Blood Count 12.7H, Red Blood Count 2.56L, Hemoglobin 7.7L, Hematocrit 23.4L, Mean Corpuscular Volume 91, Mean Corpuscular Hemoglobin 30.2, Mean Corpuscular Hemoglobin Concent 33.0, Red Cell Distribution Width 12.7, Platelet Count 384, Mean Platelet Volume 7.7, Neutrophils (%) (Auto) , Lymphocytes (%) ( Auto) , Monocytes (%) (Auto) , Eosinophils (%) (Auto) , Basophils (%) (Auto) , Differential Total Cells Counted 100, Neutrophils % (Manual) 79H, Lymphocytes % (Manual) 16L, Monocytes % (Manual) 3, Eosinophils % (Manual) 2, Basophils % ( Manual) 0, Band Neutrophils 0, Platelet Estimate Adequate, Platelet Morphology Normal, Hypochromasia 3+, Anisocytosis 1+, Sodium Level 140, Potassium Level 3.6 , Chloride Level 102, Carbon Dioxide Level 23, Anion Gap 15, Blood Urea Nitrogen 60H, Creatinine 3.2H, Estimat Glomerular Filtration Rate 16.6, Glucose Level 124H, Calcium Level 9.9 Height (Feet): 5 Height (Inches): 3.00 Weight (Pounds): 139 Oumar Foy MD Jul 30, 2019 11:56
[2019-07-30] MEDS: Micafungin 100 MG in NS 110 ML IVPB SCH (12:03)
--- NOTE | 2019-07-30 12:32 | NUR ---
NURSE NOTES: DR TAVERAS CALLED AND GAVE AN ORDER FOR PERMACATH PLACEMENT
--- NOTE | 2019-07-30 12:49 | Surgery Progress Note ---
Surgery Progress Note Subjective Procedure Performed right femoral temporary HD catheter insertion Additional Comments ill appearing labs noted exam unchanged Objective Last 24 Hour Vital Signs Date Time Temp Pulse Resp B/P (MAP) Pulse Ox O2 Delivery O2 Flow Rate FiO2 07/30/19 08:52 105 132/62 07/30/19 08:00 103 07/30/19 08:00 98.6 105 20 132/62 (85) 99 07/30/19 04:00 102 07/30/19 04:00 99.4 104 18 115/68 (84) 97 07/30/19 00:07 95 07/30/19 00:00 98.1 95 19 142/65 (90) 96 07/29/19 21:05 92 116/66 07/29/19 21:00 Nasal Cannula 2.0 07/29/19 20:00 98.2 92 19 116/66 (83) 97 07/29/19 19:11 101 07/29/19 16:00 98.2 97 20 121/57 (78) 97 07/29/19 15:14 106 I&O Intake and Output 07/29/19 07/30/19 19:00 07:00 Intake Total 38 ml 618 ml Output Total 500 ml 250 ml Balance -462 ml 368 ml Free Water 200 ml Tube Feeding 38 ml 418 ml Output Urine Total 200 ml 50 ml Stool Total 300 ml 200 ml Hemodialysis UF 0 ml Dressing: other Wound: other Drains: other Cardiovascular: RSR Respiratory: decreased breath sounds Abdomen: soft, non-tender, present bowel sounds Extremities: no tenderness, no cyanosis Laboratory Tests Test 07/30/19 06:27 White Blood Count 12.7 K/UL (4.8-10.8) H Red Blood Count 2.56 M/UL (4.20-5.40) L Hemoglobin 7.7 G/DL (12.0-16.0) L Hematocrit 23.4 % (37.0-47.0) L Mean Corpuscular Volume 91 FL (80-99) Mean Corpuscular Hemoglobin 30.2 PG (27.0-31.0) Mean Corpuscular Hemoglobin Concent 33.0 G/DL (32.0-36.0) Red Cell Distribution Width 12.7 % (11.6-14.8) Platelet Count 384 K/UL (150-450) Mean Platelet Volume 7.7 FL (6.5-10.1) Neutrophils (%) (Auto) % (45.0-75.0) Lymphocytes (%) (Auto) % (20.0-45.0) Monocytes (%) (Auto) % (1.0-10.0) Eosinophils (%) (Auto) % (0.0-3.0) Basophils (%) (Auto) % (0.0-2.0) Differential Total Cells Counted 100 Neutrophils % (Manual) 79 % (45-75) H Lymphocytes % (Manual) 16 % (20-45) L Monocytes % (Manual) 3 % (1-10) Eosinophils % (Manual) 2 % (0-3) Basophils % (Manual) 0 % (0-2) Band Neutrophils 0 % (0-8) Platelet Estimate Adequate Platelet Morphology Normal Hypochromasia 3+ Anisocytosis 1+ Sodium Level 140 MMOL/L (136-145) Potassium Level 3.6 MMOL/L (3.5-5.1) Chloride Level 102 MMOL/L (98-107) Carbon Dioxide Level 23 MMOL/L (21-32) Anion Gap 15 mmol/L (5-15) Blood Urea Nitrogen 60 mg/dL (7-18) H Creatinine 3.2 MG/DL (0.55-1.30) H Estimat Glomerular Filtration Rate 16.6 mL/min (>60) Glucose Level 124 MG/DL (74-106) H Calcium Level 9.9 MG/DL (8.5-10.1) Plan Problems: (1) Decubitus skin ulcer Assessment & Plan: Pt presented on admission with multiple pressure injuries. Unstageable pressure injury R shoulder(L)3.8cm x (W)3.3cm. Base of wound is 100 % necrotic and dry. Marginal erythema along borders. No erythema or induration periwound. Reabsorbed DTPI R Humerus. Base of injury has dry peeling brown skin with underlying dry pink epithelial. R elbow pressure injury has resolved. Full thickness pressure injury R hip (L)7cm x (W)13.1cm. Base of wound is 70% fibrinous slough,10% necrotic ,20% moist pink granulation. Edges are macerated.Small amt seropurulent non-odorous exudate noted. NO erythema , induration or elevation in skin temp periwound. Opened DTPI Sacrum(L)9cm x (W)15cm. Base of wound is purple,indurated with an open wound at sacrococcygeal which has 100% slough(L)1.6cm x (W)1cm. Surrounding Skin hypopigmentation with areas of excoriation extending into perineum and perianal area. Unstageable pressure injury lateral R malleolus(L)2.5cm x (W)3cm. Base of wound is 100% dry necrosis. Edges adherent to base of wound. No erythema induration or fluctuance periwound. Reabsorbing DTPI R heel. Base of Heel is boggy,non-blanching erythema with dry peeling brown skin along edges.(L)4.2cm x (W)6cm. Resolving DTPI distal/lateral R foot. Stable dry brown eschar without fluctuance or induration(L)1cm x (W)1.5cm. Resolving DTPI Lateral R 5th metatarsal.Base of injury is dry,brown without fluctuance or induration.(L)0.6cm x (W)1cm Unstageable pressure injury L Hallux(L)4cm x (W)2.7cm. Base of wound is 80% necrotic,20% slough with marginal erythema along borders. No odor or exudate noted. DTPI L Heel. Base of injury maroon and fluctuant. Periwound is boggy but blanchable(L)5.5cm x (W)6.5cm. Tx.Plan: Cleanse R shoulder with Saline. Apply Therahoney. Apply Cavilon Periwound. Cover with Optifoam drsg. Change every 3 days and prn. Cleanse R hip with Saline. Apply Therahoney.Apply Moisture Barrier Periwound. Cover with Optifoam drsg. Change Daily and prn. Cleanse Sacrum with Saline. Apply Therahoney. Apply Moisture Barrier Paste periwound. Cover with Optifoam drsg. Change every 3 days and prn. Apply Moisture Barrier Paste to perineum and perianal areas with each incontinence care. Apply Betadine to R heel,Distal/lateral R foot ,R5th metatarsal. Cover with Optifoam drsg. Change every 3 days and prn. Apply Betadine to L hallux,and L heel. Cover each site with Optifoam drsg. Change every 3 days and prn. Reposition at least every 2hours or as tolerated. Place pillow between knees. off-load heels with pillow. (2) Fever Assessment & Plan: covid negative discussed with pcp and nephro may need to remove catheter as possible etiology covid negative c diff negative blood cultures from line. if positive will remove after next HD then line holiday blood cx with gram neg d/c line Line removed see note Line holiday new line placed see note cont hd Antibiotics as per infectious disease (3) Protein calorie malnutrition Assessment & Plan: DAILY ESTIMATED NEEDS: Needs based on Wounds, HD 51.8kg 30-35 kcals/kg 4070-8432 total kcals 1.25-1.8 g protein/kg 65-93 g total protein Fluids per MD mL/kg . total fluid mLs NUTRITION DIAGNOSIS: * Increased kcal and prot needs r/t wound healing and renal failure as evidenced by w/ multiple pressure injuries, pending re-evaluation, s/p recent PermCath placement, HD dependent. * Swallowing difficulty R/T dysphagia as evidenced by s/p recent PEG placement, on GT feeding. CURRENT TF:Jevity 1.2 @ 50ml/hr x 24 hrs ENTERAL NUTRITION RECOMMENDATIONS: Nepro @ 38ml/hr x 24 hrs to provide 912ml, 1642kcal, 74g prot, 663ml free water - Rec TF change to Nepro- HD dependent - Initiate Nepro @ 28ml/hr x 6 hrs, increase to goal as tolerated. - HOB over 30 degrees/ water flush per MD ADDITIONAL RECOMMENDATIONS: 1) Calibrated bedscale wt 2) Wound Care: add Nephrovite x 1 add Saw 1ptk BID when TF well tolerated @ goal 3) Check phos and mag levels 4) Monitor BGs, need for nISS 5) Add probiotics: h/o LBM prev adm, prolonged use of abx (4) Pressure ulcer Anshul Nava Jul 30, 2019 12:49
[2019-07-30] MEDS ORDERED: Lidocaine 2% 20mg/ml/Epi 0.005mg/ml 20ml vial INJ PRN (13:10)
[2019-07-30] MEDS ORDERED: Heparin1,000 units/500ml Premix(Conc:2 units/ml) INJ PRN (13:11)
[2019-07-30] MEDS ORDERED: Heparin Sod 1000 units/ml 10ml INJ PRN (13:11)
--- NOTE | 2019-07-30 13:56 | NUR ---
NURSE NOTES: Received HD order from Dr. Oconnor for 07/30. [facility] dialysis called to schedule spoke with Jessenia.
[2019-07-30] MEDS ORDERED: ceFAZolin sod 1 GM in D5W 55 ML IVPB SCH (14:03)
--- NOTE | 2019-07-30 14:03 | Pre-Procedure Note/Attestation ---
Pre-Procedure Note/Attestation Complete Prior to Procedure Planned Procedure: not applicable Procedure Narrative: Permacath Indications for Procedure Pre-Operative Diagnosis: ESRD, needs long-term dialysis access Attestation I attest that I discussed the nature of the procedure; its benefits; risks and complications; and alternatives (and the risks and benefits of such alternatives ), prior to the procedure, with the patient (or the patient's legal corporate sales representative). I attest that, if there was a reasonable possibility of needing a blood transfusion, the patient (or the patient's legal corporate sales representative) was given the [facility] standardized written summary, pursuant to the Donald Luis Fernando Blood Safety Act ([place] Health and Safety Code # 1645, as amended). I attest that I re-evaluated the patient just prior to the surgery and that there has been no change in the patient's H&P, except as documented below: Discussed by phone with pt's. sister with LIAN De La Cruz at 1300 Primo Mcclellan MD Jul 30, 2019 14:03
--- NOTE | 2019-07-30 14:04 | Brief Operative Note ---
Immediate Post Operative Note Operative Note Pre-op Diagnosis: ESRD, needs long-term dialysis access Procedure: R IJV permacath Post-op Diagnosis: same as pre-op Anesthesia: local Specimen: none Complications: none Condition: stable Fluids: none Implant(s) used?: No Primo Mcclellan MD Jul 30, 2019 14:04
--- NOTE | 2019-07-30 14:21 | NUR ---
RADIOLOGY NOTE: TUNNELED DIALYSIS CATHETER PLACED BY DR. KALIE GEORGE AT 1340 HRS. FA
--- NOTE | 2019-07-30 15:00 | NUR ---
NURSE NOTES: Patient returned to the floor S/P 14.5 Fr on the right Chest wall measuring 19 cm. Report received from Mino. Patient is awake,VSS. NO signs and symptoms of discomfort. HD site CDI. Will closely monitor patient and obtain V/S as per MD's order.
--- NOTE | 2019-07-30 17:09 | Diagnostic Imaging Report ---
Indications: Needs long-term dialysis access Technique: Patient given IV Ancef. Total sterile technique, including sterile probe cover and sterile gel, sterile gloves, hand hygiene, hat, mask,, sterile gown, large sterile drape, and preparation with 2% chlorhexidine utilized. Local anesthesia with 1% lidocaine. Under real-time ultrasound guidance, puncture right internal jugular vein using 21-gauge micropuncture needle, passage 0.018 guidewire, exchange for 4 Bengali micropuncture introducer. The guidewire was used to measure the appropriate catheter length, and was removed. The sheath was left in place. The subcutaneous tract was then anesthetized with 1% lidocaine. A chest dermatotomy was made . The tunneling device was used to pull a 14.5 Bengali 19 cm BioFlo catheter through the subcutaneous tunnel to the neck dermatotomy. A guidewire was passed through the neck introducer into the inferior vena cava, and serial dilators were passed over it, followed by the introduction of a 14.5 Bengali AirGuard peel-away sheath. The catheter was then introduced into the sheath, the peel-away sheath was removed. Digital radiograph documents satisfactory catheter tip position in the high right atrium, no kinking at the insertion site. Both catheter ports aspirated and flushed. Catheter was fixed to the skin. Patient tolerated procedure well without immediate complication. Total fluoroscopy time 28.8 seconds. Total dose area product 0.9912 mGym2 Total number of images-one Comparison: None. Findings: Completion radiograph documents satisfactory position and course of the catheter, catheter tip at the high right atrium. Impression: Successful placement of right transjugular tunneled dialysis catheter, as described above
--- NOTE | 2019-07-30 18:39 | Neurology Progress Note ---
Interim History Interim History ROS Limited/Unobtainable: No Interim History high wbc, non verbal Objective Physical Exam Last Vital Signs Date Time Temp Pulse Resp B/P (MAP) Pulse Ox O2 Delivery O2 Flow Rate FiO2 07/30/19 16:30 98.0 95 20 108/49 (68) 100 07/30/19 13:09 3.0 07/30/19 09:00 Nasal Cannula Laboratory Tests Test 07/30/19 06:27 White Blood Count 12.7 K/UL (4.8-10.8) H Red Blood Count 2.56 M/UL (4.20-5.40) L Hemoglobin 7.7 G/DL (12.0-16.0) L Hematocrit 23.4 % (37.0-47.0) L Mean Corpuscular Volume 91 FL (80-99) Mean Corpuscular Hemoglobin 30.2 PG (27.0-31.0) Mean Corpuscular Hemoglobin Concent 33.0 G/DL (32.0-36.0) Red Cell Distribution Width 12.7 % (11.6-14.8) Platelet Count 384 K/UL (150-450) Mean Platelet Volume 7.7 FL (6.5-10.1) Neutrophils (%) (Auto) % (45.0-75.0) Lymphocytes (%) (Auto) % (20.0-45.0) Monocytes (%) (Auto) % (1.0-10.0) Eosinophils (%) (Auto) % (0.0-3.0) Basophils (%) (Auto) % (0.0-2.0) Differential Total Cells Counted 100 Neutrophils % (Manual) 79 % (45-75) H Lymphocytes % (Manual) 16 % (20-45) L Monocytes % (Manual) 3 % (1-10) Eosinophils % (Manual) 2 % (0-3) Basophils % (Manual) 0 % (0-2) Band Neutrophils 0 % (0-8) Platelet Estimate Adequate Platelet Morphology Normal Hypochromasia 3+ Anisocytosis 1+ Sodium Level 140 MMOL/L (136-145) Potassium Level 3.6 MMOL/L (3.5-5.1) Chloride Level 102 MMOL/L (98-107) Carbon Dioxide Level 23 MMOL/L (21-32) Anion Gap 15 mmol/L (5-15) Blood Urea Nitrogen 60 mg/dL (7-18) H Creatinine 3.2 MG/DL (0.55-1.30) H Estimat Glomerular Filtration Rate 16.6 mL/min (>60) Glucose Level 124 MG/DL (74-106) H Calcium Level 9.9 MG/DL (8.5-10.1) Head: normocophalic Neck: no rigidity EENT: benign Neurologic Exam Mental Status: awake Cranial Nerves III, IV, : PERRLA Objective Wakes up, tracks with eyes, tell me her name, withdraws all 4 Impression/Recommendations Problems: (1) Decubitus skin ulcer (2) Fever (3) Rhabdomyolysis (4) Elevated troponin (5) KAREN (acute kidney injury) (6) Fever (7) Elevated brain natriuretic peptide (BNP) level (8) ESRD (end stage renal disease) on dialysis (9) ESRD (end stage renal disease) on dialysis (10) Pressure ulcer (11) Protein calorie malnutrition (12) Dysphagia Status: stable Diagnostic Impression Acute encephalopathy, improved baseline dementia Sepsis Monitor neuro exam for improvement cont atb neg covid Delirium precautions Sushil Stevenson MD Jul 30, 2019 18:39
--- NOTE | 2019-07-30 19:15 | NUR ---
NURSE NOTES: Received pt and report from HYUN Colindres. Observed pt resting in bed with both eyes closed. Pt is A/Ox1. monitoring analyst in placed; pt is NSR. IV site intact, asymptomatic and patent. Pt has a Sanchez in placed per MD order for retention; urine is dark neal in color. Pt is on G-tube feeding of Nephro @38ml/hr; no residual noted. Aspiration precaution noted; HOB at 30 degrees. Pt has a rectal tube in placed; observed brown stool is rectal tube bag collection. Pt is on 2L NC. Bed is in the lowest position and locked. Call light and bedside table is within reach. No signs/symptoms of acute distress noted at this time. Will continue plan of care.
--- NOTE | 2019-07-30 19:26 | NUR ---
HAND-OFF: Report given to Lashell Meeks. PLan of care endorsed.
[2019-07-30] MEDS: Dyna-Hex 2% Top Sol 2oz TOPIC SCH (20:37)
[2019-07-30] MEDS: Carvedilol 6.25mg Tab ORAL SCH (21:11)
[2019-07-30] MEDS: traMADol 50mg tab ORAL PRN (21:44)
[2019-07-31] VITALS: BP 106/50
[2019-07-31 04:00] VITALS: BP 129/56
[2019-07-31 06:40] LABS: HEMATOCRIT 23.8 % (37.0-47.0); HEMOGLOBIN 7.8 G/DL (12.0-16.0); MEAN CORPUSCULAR VOLUME 91 FL (80-99); PLATELET COUNT 393 K/UL (150-450); RED BLOOD COUNT 2.62 M/UL (4.20-5.40); RED CELL DISTRIBUTION WIDTH 12.4 % (11.6-14.8); WHITE BLOOD COUNT 13.3 K/UL (4.8-10.8)
[2019-07-31 07:27] LABS: ANION GAP 17 mmol/L (5-15); BLOOD UREA NITROGEN 93 mg/dL (7-18); CALCIUM 9.8 MG/DL (8.5-10.1); CARBON DIOXIDE 21 MMOL/L (21-32); CHLORIDE 100 MMOL/L (98-107); CREATININE 4.5 MG/DL (0.55-1.30); POTASSIUM 3.7 MMOL/L (3.5-5.1); SODIUM 138 MMOL/L (136-145)
[2019-07-31 08:00] VITALS: BP 145/69
--- NOTE | 2019-07-31 08:09 | NUR ---
HAND-OFF: Report given to HYUN Villarreal. Plan of care endorsed.
--- NOTE | 2019-07-31 08:29 | NUR ---
NURSE NOTES: pt in bed awake, Aox1. pt on change attendant no signs of cardiac or respiratory distress at this time. Call light within reach, bed locked and in lowest position, side rails upx 2, bed alarm on. Pt will have dialysis today. pt has hargrove as well as rectal tube. Pt also has multiple wounds. Will continue to monitor pt.
--- NOTE | 2019-07-31 08:53 | Neurology Progress Note ---
Interim History Interim History ROS Limited/Unobtainable: No Interim History non verbal, no new deficits Objective Physical Exam Last Vital Signs Date Time Temp Pulse Resp B/P (MAP) Pulse Ox O2 Delivery O2 Flow Rate FiO2 07/31/19 04:00 98.9 99 19 129/56 (80) 98 07/30/19 21:00 Nasal Cannula 2.0 Laboratory Tests Test 07/31/19 06:13 White Blood Count 13.3 K/UL (4.8-10.8) H Red Blood Count 2.62 M/UL (4.20-5.40) L Hemoglobin 7.8 G/DL (12.0-16.0) L Hematocrit 23.8 % (37.0-47.0) L Mean Corpuscular Volume 91 FL (80-99) Mean Corpuscular Hemoglobin 29.7 PG (27.0-31.0) Mean Corpuscular Hemoglobin Concent 32.7 G/DL (32.0-36.0) Red Cell Distribution Width 12.4 % (11.6-14.8) Platelet Count 393 K/UL (150-450) Mean Platelet Volume 7.3 FL (6.5-10.1) Neutrophils (%) (Auto) % (45.0-75.0) Lymphocytes (%) (Auto) % (20.0-45.0) Monocytes (%) (Auto) % (1.0-10.0) Eosinophils (%) (Auto) % (0.0-3.0) Basophils (%) (Auto) % (0.0-2.0) Neutrophils % (Manual) Pending Lymphocytes % (Manual) Pending Platelet Estimate Pending Platelet Morphology Pending Sodium Level 138 MMOL/L (136-145) Potassium Level 3.7 MMOL/L (3.5-5.1) Chloride Level 100 MMOL/L (98-107) Carbon Dioxide Level 21 MMOL/L (21-32) Anion Gap 17 mmol/L (5-15) H Blood Urea Nitrogen 93 mg/dL (7-18) H Creatinine 4.5 MG/DL (0.55-1.30) H Estimat Glomerular Filtration Rate 11.2 mL/min (>60) Glucose Level 137 MG/DL (74-106) H Calcium Level 9.8 MG/DL (8.5-10.1) Random Vancomycin Level 34.0 ug/mL Head: normocophalic Neck: no rigidity EENT: benign Neurologic Exam Mental Status: awake Cranial Nerves III, IV, : PERRLA Objective Wakes up, tracks with eyes, tell me her name, withdraws all 4 Impression/Recommendations Problems: (1) Decubitus skin ulcer (2) Fever (3) Rhabdomyolysis (4) Elevated troponin (5) KAREN (acute kidney injury) (6) Fever (7) Elevated brain natriuretic peptide (BNP) level (8) ESRD (end stage renal disease) on dialysis (9) ESRD (end stage renal disease) on dialysis (10) Pressure ulcer (11) Protein calorie malnutrition (12) Dysphagia Status: stable Diagnostic Impression Acute encephalopathy, improved baseline dementia Sepsis Monitor neuro exam for improvement cont atb neg covid Delirium precautions Sushil Stevenson MD Jul 31, 2019 08:53
[2019-07-31] MEDS: Carvedilol 6.25mg Tab ORAL SCH ×2 (09:00→22:33)
--- NOTE | 2019-07-31 09:30 | General Progress Note ---
Assessment/Plan Status: stable Assessment/Plan: 1. End-stage renal disease, on hemodialysis. 2. Anemia. 3. Dysphagia, status post G-tube placement. 4. Pneumonia. 5. Pancreatic cyst. 6. Hypertension. 7. Diarrhea 8. Leukocytosis C.diff>> neg imodium prn GTF abx per ID HD per nephrology repeal labs in am transfuse if hgb drops below 7 fu urology for hematuria pending placement Subjective ROS Limited/Unobtainable: No Allergies: Coded Allergies: No Known Allergies (Unverified , 06/24/19) Objective Last 24 Hour Vital Signs Date Time Temp Pulse Resp B/P (MAP) Pulse Ox O2 Delivery O2 Flow Rate FiO2 07/31/19 08:00 98.9 106 20 145/69 (94) 97 07/31/19 04:00 98.9 99 19 129/56 (80) 98 07/31/19 04:00 113 07/31/19 00:00 98.7 104 19 106/50 (68) 97 07/31/19 00:00 104 07/30/19 21:11 97 127/63 07/30/19 21:00 Nasal Cannula 2.0 07/30/19 20:00 94 07/30/19 20:00 98.0 97 17 127/63 (84) 100 07/30/19 16:30 98.0 95 20 108/49 (68) 100 07/30/19 16:00 93 07/30/19 16:00 98.1 94 20 116/57 (76) 100 07/30/19 15:30 98.2 103 22 127/57 (80) 100 07/30/19 15:00 98.2 104 22 126/59 (81) 100 07/30/19 14:30 98.1 101 20 135/60 (85) 100 07/30/19 14:15 98.1 101 20 108/48 (68) 98 07/30/19 14:00 102 22 156/71 (99) 99 07/30/19 13:55 102 22 139/68 (91) 100 07/30/19 13:50 103 22 165/75 (105) 100 07/30/19 13:45 95 22 163/80 (107) 100 07/30/19 13:40 101 22 152/79 (103) 100 07/30/19 13:09 100 22 3.0 07/30/19 12:00 98.2 102 20 157/67 (97) 98 07/30/19 12:00 101 Intake and Output 07/30/19 07/31/19 19:00 07:00 Intake Total 38 ml 618 ml Output Total 25 ml Balance 38 ml 593 ml Free Water 200 ml Tube Feeding 38 ml 418 ml Output Urine Total 25 ml # Voids 1 Laboratory Tests 07/31/19 06:13: White Blood Count 13.3H, Red Blood Count 2.62L, Hemoglobin 7.8L, Hematocrit 23.8L, Mean Corpuscular Volume 91, Mean Corpuscular Hemoglobin 29.7, Mean Corpuscular Hemoglobin Concent 32.7, Red Cell Distribution Width 12.4, Platelet Count 393, Mean Platelet Volume 7.3, Neutrophils (%) (Auto) , Lymphocytes (%) ( Auto) , Monocytes (%) (Auto) , Eosinophils (%) (Auto) , Basophils (%) (Auto) , Neutrophils % (Manual) [Pending], Lymphocytes % (Manual) [Pending], Platelet Estimate [Pending], Platelet Morphology [Pending], Sodium Level 138, Potassium Level 3.7, Chloride Level 100, Carbon Dioxide Level 21, Anion Gap 17H, Blood Urea Nitrogen 93H, Creatinine 4.5H, Estimat Glomerular Filtration Rate 11.2, Glucose Level 137H, Calcium Level 9.8, Random Vancomycin Level 34.0 Height (Feet): 5 Height (Inches): 3.00 Weight (Pounds): 132 General Appearance: alert EENT: normal ENT inspection Neck: supple Cardiovascular: normal rate Respiratory/Chest: decreased breath sounds Abdomen: normal bowel sounds, non tender, soft Extremities: non-tender Jun Mena MD Jul 31, 2019 09:30
[2019-07-31] MEDS: Lactobacillus-GG tablet GT SCH ×2 (10:22→22:23)
[2019-07-31] MEDS: Heparin 5000 units/ml inj SUBQ SCH ×2 (10:25→21:00)
[2019-07-31] MEDS: Piperacillin/Tazobactam 3.375 GM in D5W 110 ML IVPB SCH ×2 (10:26→22:30)
--- NOTE | 2019-07-31 10:57 | Nephrology Progress Note ---
Assessment/Plan Plan #Acute renal failure recent started on HD in 06/2018- #Sepsis #Dementia #HTN #elevated troponin #Dysphagia s/p PEG #urinary retention - permacath 07/29 - plan for HD today - monitor BMP layo - agree with [facility] 100 q6 - continue lasix 80 IV daily -> switch to oral on DC - cardiology eval - monitor UOP---> increasing - urology eval - continue antibiotics per ID - coreg 3.125mg BID - follow repeat blood cx- growing pseudomonas - check iron panel, ferritin-> ferritin supersaturated - continue epogen 4K TIW - monitor BMP, mag and phos daily for now Subjective Subjective Permcath placed yesterday Plan for HD today BP stable breathing stable on NC Objective Objective Last 24 Hour Vital Signs Date Time Temp Pulse Resp B/P (MAP) Pulse Ox O2 Delivery O2 Flow Rate FiO2 07/31/19 08:00 98.9 106 20 145/69 (94) 97 07/31/19 04:00 98.9 99 19 129/56 (80) 98 07/31/19 04:00 113 07/31/19 00:00 98.7 104 19 106/50 (68) 97 07/31/19 00:00 104 07/30/19 21:11 97 127/63 07/30/19 21:00 Nasal Cannula 2.0 07/30/19 20:00 94 07/30/19 20:00 98.0 97 17 127/63 (84) 100 07/30/19 16:30 98.0 95 20 108/49 (68) 100 07/30/19 16:00 93 07/30/19 16:00 98.1 94 20 116/57 (76) 100 07/30/19 15:30 98.2 103 22 127/57 (80) 100 07/30/19 15:00 98.2 104 22 126/59 (81) 100 07/30/19 14:30 98.1 101 20 135/60 (85) 100 07/30/19 14:15 98.1 101 20 108/48 (68) 98 07/30/19 14:00 102 22 156/71 (99) 99 07/30/19 13:55 102 22 139/68 (91) 100 07/30/19 13:50 103 22 165/75 (105) 100 07/30/19 13:45 95 22 163/80 (107) 100 07/30/19 13:40 101 22 152/79 (103) 100 07/30/19 13:09 100 22 3.0 07/30/19 12:00 98.2 102 20 157/67 (97) 98 07/30/19 12:00 101 Intake and Output 07/30/19 07/31/19 19:00 07:00 Intake Total 38 ml 618 ml Output Total 25 ml Balance 38 ml 593 ml Free Water 200 ml Tube Feeding 38 ml 418 ml Output Urine Total 25 ml # Voids 1 Laboratory Tests 07/31/19 06:13: White Blood Count 13.3H, Red Blood Count 2.62L, Hemoglobin 7.8L, Hematocrit 23.8L, Mean Corpuscular Volume 91, Mean Corpuscular Hemoglobin 29.7, Mean Corpuscular Hemoglobin Concent 32.7, Red Cell Distribution Width 12.4, Platelet Count 393, Mean Platelet Volume 7.3, Neutrophils (%) (Auto) , Lymphocytes (%) ( Auto) , Monocytes (%) (Auto) , Eosinophils (%) (Auto) , Basophils (%) (Auto) , Differential Total Cells Counted 100, Neutrophils % (Manual) 64, Lymphocytes % ( Manual) 28, Monocytes % (Manual) 6, Eosinophils % (Manual) 2, Basophils % ( Manual) 0, Band Neutrophils 0, Platelet Estimate Adequate, Platelet Morphology Normal, Polychromasia 1+, Hypochromasia 2+, Sodium Level 138, Potassium Level 3.7, Chloride Level 100, Carbon Dioxide Level 21, Anion Gap 17H, Blood Urea Nitrogen 93H, Creatinine 4.5H, Estimat Glomerular Filtration Rate 11.2, Glucose Level 137H, Calcium Level 9.8, Random Vancomycin Level 34.0 Height (Feet): 5 Height (Inches): 3.00 Weight (Pounds): 132 Objective General: NAD, A&O x 1, self only HEENT: NCAT, EOMi, PEERLA, nares patent and no symmetrical, no tonsillar exudates, mucous membranes moist CV: RRR, no murmurs, rubs, or gallops Pulm: CTAB, No wheezes, rhonchi, or rales, no accessory muscle usage or conversational dyspnea GI: Soft, nontender, nondistended, bowel sounds present, PEG tube in place, C/D/ I Neuro: CN 2-12 grossly intact bilaterally, no focal signs. Ext: No lower extremity edema bilaterally, LE contracted bilaterally Skin: Multiple pressure ulcers noted on hip/heels Lymph: No lymphadenopathy in upper extremity and lower extremity Rory Oconnor M.D. Jul 31, 2019 10:57
--- NOTE | 2019-07-31 11:03 | Urology Progress Note ---
Assessment/Plan Status: stable Assessment/Plan: 1. Hematuria, which was previously gross and now microscopic. 2. End-stage renal disease, on hemodialysis. 3. Urinary retention history, now with incontinence. 4. Probable neurogenic bladder. 5. Pyuria. 6. Proteinuria. 7. History of acute kidney injury. 9. Nephrolithiasis. 8. Sepsis? 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 f/u on last cx's Subjective Allergies: Coded Allergies: No Known Allergies (Unverified , 06/24/19) Subjective all noted, hargrove placed indwelling yest Objective Last 24 Hour Vital Signs Date Time Temp Pulse Resp B/P (MAP) Pulse Ox O2 Delivery O2 Flow Rate FiO2 07/31/19 08:00 98.9 106 20 145/69 (94) 97 07/31/19 04:00 98.9 99 19 129/56 (80) 98 07/31/19 04:00 113 07/31/19 00:00 98.7 104 19 106/50 (68) 97 07/31/19 00:00 104 07/30/19 21:11 97 127/63 07/30/19 21:00 Nasal Cannula 2.0 07/30/19 20:00 94 07/30/19 20:00 98.0 97 17 127/63 (84) 100 07/30/19 16:30 98.0 95 20 108/49 (68) 100 07/30/19 16:00 93 07/30/19 16:00 98.1 94 20 116/57 (76) 100 07/30/19 15:30 98.2 103 22 127/57 (80) 100 07/30/19 15:00 98.2 104 22 126/59 (81) 100 07/30/19 14:30 98.1 101 20 135/60 (85) 100 07/30/19 14:15 98.1 101 20 108/48 (68) 98 07/30/19 14:00 102 22 156/71 (99) 99 07/30/19 13:55 102 22 139/68 (91) 100 07/30/19 13:50 103 22 165/75 (105) 100 07/30/19 13:45 95 22 163/80 (107) 100 07/30/19 13:40 101 22 152/79 (103) 100 07/30/19 13:09 100 22 3.0 07/30/19 12:00 98.2 102 20 157/67 (97) 98 07/30/19 12:00 101 Intake and Output 07/30/19 07/31/19 19:00 07:00 Intake Total 38 ml 618 ml Output Total 25 ml Balance 38 ml 593 ml Free Water 200 ml Tube Feeding 38 ml 418 ml Output Urine Total 25 ml # Voids 1 Microbiology Date/Time Source Procedure Growth Status 07/26/19 15:00 Blood Blood Culture - Preliminary NO GROWTH AFTER 4 DAYS Resulted 07/20/19 04:30 Sputum Induced Gram Stain - Final Complete 07/20/19 04:30 Sputum Culture - Final Pseudomonas Aeruginosa Melanie Albicans Usual Respiratory Cristina Complete 07/28/19 03:50 Stool Clostridium difficile Toxin Assay - Final Complete 07/27/19 11:20 Indwelling Cath Urine Culture - Preliminary Resulted 07/20/19 13:18 Catheter Site Catheter Tip Culture - Final NO GROWTH AFTER 4 DAYS Complete Current Medications Medications (Trade) Dose Ordered Sig/Joan Route PRN Reason Start Time Stop Time Status Last Admin Dose Admin Acetaminophen (Tylenol) 650 mg Q4H PRN ORAL Mild Pain (Pain Scale 1-3) 07/14/19 14:45 08/13/19 14:44 07/22/19 08:45 Amikacin Protocol (Amikacin pharmacy to dose) 1 ea DAILY PRN MISC Per rx protocol 07/27/19 16:30 08/26/19 16:29 Atorvastatin Calcium (Lipitor) 10 mg QHS GT 07/14/19 21:00 10/12/19 20:59 07/30/19 21:10 Carvedilol (Coreg) 6.25 mg EVERY 12 HOURS ORAL 07/30/19 21:00 08/18/19 08:59 07/30/19 21:11 Chlorhexidine Gluconate (Cari-Hex 2%) 1 applic DAILY@1999 TOPIC 07/15/19 20:00 10/13/19 19:59 07/30/19 20:37 Dextrose (Dextrose 50%) 25 ml Q30M PRN IV Hypoglycemia 07/14/19 14:45 10/12/19 14:44 Dextrose (Dextrose 50%) 50 ml Q30M PRN IV Hypoglycemia 07/14/19 14:45 10/12/19 14:44 Epoetin Dion (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)) 4,000 unit MON-MON-MON SUBQ 07/24/19 21:00 10/22/19 20:59 07/29/19 21:03 Heparin Sodium (Porcine) (Heparin 5000 units/ml) 5,000 units EVERY 12 HOURS SUBQ 07/14/19 21:00 08/28/19 20:59 07/31/19 10:25 Hydralazine HCl (Apresoline) 10 mg Q4H PRN IV For High Blood Pressure 07/14/19 15:30 10/12/19 15:29 Lactobacillus Acidophilus (Culturelle) 1 tab Q12HR GT 07/15/19 12:14 10/13/19 12:13 07/31/19 10:22 Loperamide HCl (Imodium) 2 mg Q6H PRN NG Diarrhea 07/18/19 09:00 08/17/19 08:59 07/31/19 10:22 Micafungin Sodium 100 mg/Sodium Chloride 110 ml @ 110 mls/hr Q24H IVPB 07/28/19 12:00 08/04/19 11:59 07/30/19 12:03 Ondansetron HCl (Zofran) 4 mg Q6H PRN IVP Nausea & Vomiting 07/14/19 14:45 08/13/19 14:44 Piperacillin Sod/ Tazobactam Sod 3.375 gm/Dextrose 110 ml @ 27.5 mls/hr EVERY 12 HOURS IVPB 07/27/19 21:00 08/01/19 20:59 07/31/19 10:26 Tramadol HCl (Ultram) 25 mg Q6H PRN ORAL For Pain 07/28/19 12:30 08/04/19 12:29 07/30/19 21:44 Vancomycin HCl (Vanco rx to dose) 1 ea DAILY PRN MISC Per rx protocol 07/27/19 16:30 08/26/19 16:29 Laboratory Tests 07/31/19 06:13: White Blood Count 13.3H, Red Blood Count 2.62L, Hemoglobin 7.8L, Hematocrit 23.8L, Mean Corpuscular Volume 91, Mean Corpuscular Hemoglobin 29.7, Mean Corpuscular Hemoglobin Concent 32.7, Red Cell Distribution Width 12.4, Platelet Count 393, Mean Platelet Volume 7.3, Neutrophils (%) (Auto) , Lymphocytes (%) ( Auto) , Monocytes (%) (Auto) , Eosinophils (%) (Auto) , Basophils (%) (Auto) , Differential Total Cells Counted 100, Neutrophils % (Manual) 64, Lymphocytes % ( Manual) 28, Monocytes % (Manual) 6, Eosinophils % (Manual) 2, Basophils % ( Manual) 0, Band Neutrophils 0, Platelet Estimate Adequate, Platelet Morphology Normal, Polychromasia 1+, Hypochromasia 2+, Sodium Level 138, Potassium Level 3.7, Chloride Level 100, Carbon Dioxide Level 21, Anion Gap 17H, Blood Urea Nitrogen 93H, Creatinine 4.5H, Estimat Glomerular Filtration Rate 11.2, Glucose Level 137H, Calcium Level 9.8, Random Vancomycin Level 34.0 Height (Feet): 5 Height (Inches): 3.00 Weight (Pounds): 132 Objective exam stable hargrove indwelling with scant urine, some debris CT A/P (07/18) noted Omar Mckoy MD Jul 31, 2019 11:03
--- NOTE | 2019-07-31 11:32 | General Progress Note ---
Assessment/Plan Status: stable Assessment/Plan: 89-year-old female with PMH of acute renal failure, s/p right chest wall permacath on HD, dysphasia s/p PEG, multiple pressure wounds, HTN, h/o AMS was recently discharged from this facility for KAREN/rhabdo, unwitnessed fall, was sent to [facility] and returned here due to fevers. Patient was admitted for persistent fevers and for sepsis/COVID 19 rule out. ED course: BMP 8000, troponin 0 0.347, patient given for septic work-up and will be admitted for further treatment. #Sepsis #Pseudomonas bacteremia #Pseudomonas PNA #leukocytosis #Diarrhea #ESRD on HD -continue inpatient level of care -COVID-19 NEGATIVE -c diff negative (07/16 and 07/25) -Imodium prn -CT abd/pelvis results reviewed -Permacath removed 07/19, line Cx negative -s/p temp cath right femoral 07/22 -07/25 BCx NGTD -CXR 07/27: mild pulmonary congestion, improved compared to previous -ID following: Zosyn, amikacin, vanc, micofungin, will discuss duration of abx with ID in preparation for discharge to SNF soon -S/p permacath placement 07/29 #Anemia of chronic dx -cont. to monitor for signs/symptoms of bleeding -check iron panel, ferritin-> ferritin supersaturated -epogen 4K TIW #Hypernatremia - resolved #Hyperkalemia - resolved #Hypokalemia - resolved -potassium replaced, ctm, replace PRN -FWF 100 cc q6 -Nephro following #HTN #elevated troponin #BNP elevated #Sinus tachycardia -trops stable 0.254, 0.240, 0.248 >>0.072 -likely due to demand ischemia, ESRD, sepsis -ASA, statin -off lasix for now given low bp -hydralazine PRN for SBP >160 -Carvedilol 3.25 mg BID -Cardio following, reccs appreciated #Hematuria #Possible Urinary retention. #Possible neurogenic bladder. -UA w/ evidence of RBCs, 4+ blood -Urology following #Dysphagia -s/p PEG -tolerating TF -Dietary and GI following, recs appreciated -d/w ST, pt currently unable to manage PO, recommends pt to f/u w/ST as o/p for o/p video swallow once more stable #Dementia -stable -neuro following, appreciate recs #Pressure wounds -Cont. wound care DVT ppx - heparin sc Time spent on encounter: 35 mins, >50% on counseling, coordination of care. D/w Dr. Rosado. Subjective Date patient seen: Jul 31, 2019 Time patient seen: 10:47 ROS Limited/Unobtainable: Yes Allergies: Coded Allergies: No Known Allergies (Unverified , 06/24/19) Subjective Follow up for recurrent sepsis, ESRD. COVID ruled out S/p permacath placement yesterday, plan for HD today per renal. Objective Last 24 Hour Vital Signs Date Time Temp Pulse Resp B/P (MAP) Pulse Ox O2 Delivery O2 Flow Rate FiO2 07/31/19 08:00 98.9 106 20 145/69 (94) 97 07/31/19 04:00 98.9 99 19 129/56 (80) 98 07/31/19 04:00 113 07/31/19 00:00 98.7 104 19 106/50 (68) 97 07/31/19 00:00 104 07/30/19 21:11 97 127/63 07/30/19 21:00 Nasal Cannula 2.0 07/30/19 20:00 94 07/30/19 20:00 98.0 97 17 127/63 (84) 100 07/30/19 16:30 98.0 95 20 108/49 (68) 100 07/30/19 16:00 93 07/30/19 16:00 98.1 94 20 116/57 (76) 100 07/30/19 15:30 98.2 103 22 127/57 (80) 100 07/30/19 15:00 98.2 104 22 126/59 (81) 100 07/30/19 14:30 98.1 101 20 135/60 (85) 100 07/30/19 14:15 98.1 101 20 108/48 (68) 98 07/30/19 14:00 102 22 156/71 (99) 99 07/30/19 13:55 102 22 139/68 (91) 100 07/30/19 13:50 103 22 165/75 (105) 100 07/30/19 13:45 95 22 163/80 (107) 100 07/30/19 13:40 101 22 152/79 (103) 100 07/30/19 13:09 100 22 3.0 07/30/19 12:00 98.2 102 20 157/67 (97) 98 07/30/19 12:00 101 Intake and Output 07/30/19 07/31/19 19:00 07:00 Intake Total 38 ml 618 ml Output Total 25 ml Balance 38 ml 593 ml Free Water 200 ml Tube Feeding 38 ml 418 ml Output Urine Total 25 ml # Voids 1 Laboratory Tests 07/31/19 06:13: White Blood Count 13.3H, Red Blood Count 2.62L, Hemoglobin 7.8L, Hematocrit 23.8L, Mean Corpuscular Volume 91, Mean Corpuscular Hemoglobin 29.7, Mean Corpuscular Hemoglobin Concent 32.7, Red Cell Distribution Width 12.4, Platelet Count 393, Mean Platelet Volume 7.3, Neutrophils (%) (Auto) , Lymphocytes (%) ( Auto) , Monocytes (%) (Auto) , Eosinophils (%) (Auto) , Basophils (%) (Auto) , Differential Total Cells Counted 100, Neutrophils % (Manual) 64, Lymphocytes % ( Manual) 28, Monocytes % (Manual) 6, Eosinophils % (Manual) 2, Basophils % ( Manual) 0, Band Neutrophils 0, Platelet Estimate Adequate, Platelet Morphology Normal, Polychromasia 1+, Hypochromasia 2+, Sodium Level 138, Potassium Level 3.7, Chloride Level 100, Carbon Dioxide Level 21, Anion Gap 17H, Blood Urea Nitrogen 93H, Creatinine 4.5H, Estimat Glomerular Filtration Rate 11.2, Glucose Level 137H, Calcium Level 9.8, Random Vancomycin Level 34.0 Height (Feet): 5 Height (Inches): 3.00 Weight (Pounds): 132 General Appearance: no apparent distress, alert, confused Neck: normal alignment, supple Cardiovascular: normal rate, regular rhythm Respiratory/Chest: lungs clear, normal breath sounds Oumar Foy MD Jul 31, 2019 11:32
[2019-07-31 12:00] VITALS: BP 146/73
--- NOTE | 2019-07-31 12:22 | NUR ---
CASE MANAGEMENT:REVIEW 07/31/19 SI: SEPSIS D/T BACTEREMIA INFECTED PERMCATH. COVID 19 NOT DETECTED S/P RIJV PERMA CATH PLACED 98.9 113 20 145/69 97% ON 2L/NC WBC+13.3 H/H-7.8/23.8 BUN+93 CR+4.5 IS: IV MICAFUNGIN Q24 IV ZOSYN Q12 COREG GT Q12 EPOETIN SQ MWF LACTOBACILLUS GT Q12 HEPARIN SQ Q12 : TELEMETRY STATUS DCP: FROM [facility] PLAN: CONTINUE 2 IV ANTIBIOTICS MONITOR WBC'S WHICH ARE TRENDING UP, AGAIN
--- NOTE | 2019-07-31 13:38 | Cardiac Electrophysiology PN ---
Assessment/Plan Assessment/Plan 1. Sinus Tachycardia due to sepsis . WBC down to 12K On Coreg 6.25 mg b.i.d. as well as IV antibiotic 2. Hypertension. On Coreg to 6.26 mg b.i.d. 3. Troponin leak and history of CAD and prior NSTEMI. Likely due to renal failure. EKG SR with LVH. Echo EF 65%. 4. End-stage renal disease, now on hemodialysis. Has new Perm Cath. Remove Aman pending? 5. Pneumonia, fever and sepsis. COVID-19 was ruled out. Antibiotics per ID. 6. Dysphagia, status post G-tube placement. GALLO RN and Dr. Brewster Subjective Subjective Had PermCath yesterday in R chest. HD pending today Objective Last 24 Hour Vital Signs Date Time Temp Pulse Resp B/P (MAP) Pulse Ox O2 Delivery O2 Flow Rate FiO2 07/31/19 08:00 98.9 106 20 145/69 (94) 97 07/31/19 04:00 98.9 99 19 129/56 (80) 98 07/31/19 04:00 113 07/31/19 00:00 98.7 104 19 106/50 (68) 97 07/31/19 00:00 104 07/30/19 21:11 97 127/63 07/30/19 21:00 Nasal Cannula 2.0 07/30/19 20:00 94 07/30/19 20:00 98.0 97 17 127/63 (84) 100 07/30/19 16:30 98.0 95 20 108/49 (68) 100 07/30/19 16:00 93 07/30/19 16:00 98.1 94 20 116/57 (76) 100 07/30/19 15:30 98.2 103 22 127/57 (80) 100 07/30/19 15:00 98.2 104 22 126/59 (81) 100 07/30/19 14:30 98.1 101 20 135/60 (85) 100 07/30/19 14:15 98.1 101 20 108/48 (68) 98 07/30/19 14:00 102 22 156/71 (99) 99 07/30/19 13:55 102 22 139/68 (91) 100 07/30/19 13:50 103 22 165/75 (105) 100 07/30/19 13:45 95 22 163/80 (107) 100 07/30/19 13:40 101 22 152/79 (103) 100 Intake and Output 07/30/19 07/31/19 19:00 07:00 Intake Total 38 ml 618 ml Output Total 25 ml Balance 38 ml 593 ml Free Water 200 ml Tube Feeding 38 ml 418 ml Output Urine Total 25 ml # Voids 1 Laboratory Tests Test 07/31/19 06:13 White Blood Count 13.3 K/UL (4.8-10.8) H Red Blood Count 2.62 M/UL (4.20-5.40) L Hemoglobin 7.8 G/DL (12.0-16.0) L Hematocrit 23.8 % (37.0-47.0) L Mean Corpuscular Volume 91 FL (80-99) Mean Corpuscular Hemoglobin 29.7 PG (27.0-31.0) Mean Corpuscular Hemoglobin Concent 32.7 G/DL (32.0-36.0) Red Cell Distribution Width 12.4 % (11.6-14.8) Platelet Count 393 K/UL (150-450) Mean Platelet Volume 7.3 FL (6.5-10.1) Neutrophils (%) (Auto) % (45.0-75.0) Lymphocytes (%) (Auto) % (20.0-45.0) Monocytes (%) (Auto) % (1.0-10.0) Eosinophils (%) (Auto) % (0.0-3.0) Basophils (%) (Auto) % (0.0-2.0) Differential Total Cells Counted 100 Neutrophils % (Manual) 64 % (45-75) Lymphocytes % (Manual) 28 % (20-45) Monocytes % (Manual) 6 % (1-10) Eosinophils % (Manual) 2 % (0-3) Basophils % (Manual) 0 % (0-2) Band Neutrophils 0 % (0-8) Platelet Estimate Adequate Platelet Morphology Normal Polychromasia 1+ Hypochromasia 2+ Sodium Level 138 MMOL/L (136-145) Potassium Level 3.7 MMOL/L (3.5-5.1) Chloride Level 100 MMOL/L (98-107) Carbon Dioxide Level 21 MMOL/L (21-32) Anion Gap 17 mmol/L (5-15) H Blood Urea Nitrogen 93 mg/dL (7-18) H Creatinine 4.5 MG/DL (0.55-1.30) H Estimat Glomerular Filtration Rate 11.2 mL/min (>60) Glucose Level 137 MG/DL (74-106) H Calcium Level 9.8 MG/DL (8.5-10.1) Random Vancomycin Level 34.0 ug/mL Objective HEAD AND NECK: No JVD. LUNGS: Coarse rhonchi.Right chest PermCath CARDIOVASCULAR: Tachy S1 and S2 with no murmur ABDOMEN: Soft. EXTREMITIES: No pitting edema.Contracted. Aman catheter still in the groin Cristopher Osman MD Jul 31, 2019 13:38
--- NOTE | 2019-07-31 13:52 | Surgery Progress Note ---
Surgery Progress Note Subjective Procedure Performed right femoral temporary HD catheter insertion Additional Comments doing well permacath placed wbc 13k exam stable d/c planning labs noted hd as per renal Objective Last 24 Hour Vital Signs Date Time Temp Pulse Resp B/P (MAP) Pulse Ox O2 Delivery O2 Flow Rate FiO2 07/31/19 08:00 98.9 106 20 145/69 (94) 97 07/31/19 04:00 98.9 99 19 129/56 (80) 98 07/31/19 04:00 113 07/31/19 00:00 98.7 104 19 106/50 (68) 97 07/31/19 00:00 104 07/30/19 21:11 97 127/63 07/30/19 21:00 Nasal Cannula 2.0 07/30/19 20:00 94 07/30/19 20:00 98.0 97 17 127/63 (84) 100 07/30/19 16:30 98.0 95 20 108/49 (68) 100 07/30/19 16:00 93 07/30/19 16:00 98.1 94 20 116/57 (76) 100 07/30/19 15:30 98.2 103 22 127/57 (80) 100 07/30/19 15:00 98.2 104 22 126/59 (81) 100 07/30/19 14:30 98.1 101 20 135/60 (85) 100 07/30/19 14:15 98.1 101 20 108/48 (68) 98 07/30/19 14:00 102 22 156/71 (99) 99 07/30/19 13:55 102 22 139/68 (91) 100 I&O Intake and Output 07/30/19 07/31/19 19:00 07:00 Intake Total 38 ml 618 ml Output Total 25 ml Balance 38 ml 593 ml Free Water 200 ml Tube Feeding 38 ml 418 ml Output Urine Total 25 ml # Voids 1 Dressing: dry Wound: clean Drains: none Cardiovascular: RSR Respiratory: clear Abdomen: soft, flat, non-tender, present bowel sounds Extremities: no edema, no tenderness, no cyanosis Laboratory Tests Test 07/31/19 06:13 White Blood Count 13.3 K/UL (4.8-10.8) H Red Blood Count 2.62 M/UL (4.20-5.40) L Hemoglobin 7.8 G/DL (12.0-16.0) L Hematocrit 23.8 % (37.0-47.0) L Mean Corpuscular Volume 91 FL (80-99) Mean Corpuscular Hemoglobin 29.7 PG (27.0-31.0) Mean Corpuscular Hemoglobin Concent 32.7 G/DL (32.0-36.0) Red Cell Distribution Width 12.4 % (11.6-14.8) Platelet Count 393 K/UL (150-450) Mean Platelet Volume 7.3 FL (6.5-10.1) Neutrophils (%) (Auto) % (45.0-75.0) Lymphocytes (%) (Auto) % (20.0-45.0) Monocytes (%) (Auto) % (1.0-10.0) Eosinophils (%) (Auto) % (0.0-3.0) Basophils (%) (Auto) % (0.0-2.0) Differential Total Cells Counted 100 Neutrophils % (Manual) 64 % (45-75) Lymphocytes % (Manual) 28 % (20-45) Monocytes % (Manual) 6 % (1-10) Eosinophils % (Manual) 2 % (0-3) Basophils % (Manual) 0 % (0-2) Band Neutrophils 0 % (0-8) Platelet Estimate Adequate Platelet Morphology Normal Polychromasia 1+ Hypochromasia 2+ Sodium Level 138 MMOL/L (136-145) Potassium Level 3.7 MMOL/L (3.5-5.1) Chloride Level 100 MMOL/L (98-107) Carbon Dioxide Level 21 MMOL/L (21-32) Anion Gap 17 mmol/L (5-15) H Blood Urea Nitrogen 93 mg/dL (7-18) H Creatinine 4.5 MG/DL (0.55-1.30) H Estimat Glomerular Filtration Rate 11.2 mL/min (>60) Glucose Level 137 MG/DL (74-106) H Calcium Level 9.8 MG/DL (8.5-10.1) Random Vancomycin Level 34.0 ug/mL Plan Problems: (1) Decubitus skin ulcer Assessment & Plan: Pt presented on admission with multiple pressure injuries. Unstageable pressure injury R shoulder(L)3.8cm x (W)3.3cm. Base of wound is 100 % necrotic and dry. Marginal erythema along borders. No erythema or induration periwound. Reabsorbed DTPI R Humerus. Base of injury has dry peeling brown skin with underlying dry pink epithelial. R elbow pressure injury has resolved. Full thickness pressure injury R hip (L)7cm x (W)13.1cm. Base of wound is 70% fibrinous slough,10% necrotic ,20% moist pink granulation. Edges are macerated.Small amt seropurulent non-odorous exudate noted. NO erythema , induration or elevation in skin temp periwound. Opened DTPI Sacrum(L)9cm x (W)15cm. Base of wound is purple,indurated with an open wound at sacrococcygeal which has 100% slough(L)1.6cm x (W)1cm. Surrounding Skin hypopigmentation with areas of excoriation extending into perineum and perianal area. Unstageable pressure injury lateral R malleolus(L)2.5cm x (W)3cm. Base of wound is 100% dry necrosis. Edges adherent to base of wound. No erythema induration or fluctuance periwound. Reabsorbing DTPI R heel. Base of Heel is boggy,non-blanching erythema with dry peeling brown skin along edges.(L)4.2cm x (W)6cm. Resolving DTPI distal/lateral R foot. Stable dry brown eschar without fluctuance or induration(L)1cm x (W)1.5cm. Resolving DTPI Lateral R 5th metatarsal.Base of injury is dry,brown without fluctuance or induration.(L)0.6cm x (W)1cm Unstageable pressure injury L Hallux(L)4cm x (W)2.7cm. Base of wound is 80% necrotic,20% slough with marginal erythema along borders. No odor or exudate noted. DTPI L Heel. Base of injury maroon and fluctuant. Periwound is boggy but blanchable(L)5.5cm x (W)6.5cm. Tx.Plan: Cleanse R shoulder with Saline. Apply Therahoney. Apply Cavilon Periwound. Cover with Optifoam drsg. Change every 3 days and prn. Cleanse R hip with Saline. Apply Therahoney.Apply Moisture Barrier Periwound. Cover with Optifoam drsg. Change Daily and prn. Cleanse Sacrum with Saline. Apply Therahoney. Apply Moisture Barrier Paste periwound. Cover with Optifoam drsg. Change every 3 days and prn. Apply Moisture Barrier Paste to perineum and perianal areas with each incontinence care. Apply Betadine to R heel,Distal/lateral R foot ,R5th metatarsal. Cover with Optifoam drsg. Change every 3 days and prn. Apply Betadine to L hallux,and L heel. Cover each site with Optifoam drsg. Change every 3 days and prn. Reposition at least every 2hours or as tolerated. Place pillow between knees. off-load heels with pillow. (2) Fever Assessment & Plan: covid negative discussed with pcp and nephro may need to remove catheter as possible etiology covid negative c diff negative blood cultures from line. if positive will remove after next HD then line holiday blood cx with gram neg d/c line Line removed see note Line holiday new line placed see note cont hd Antibiotics as per infectious disease new permacath placed d/c fem line d/c planning (3) Protein calorie malnutrition Assessment & Plan: DAILY ESTIMATED NEEDS: Needs based on Wounds, HD 51.8kg 30-35 kcals/kg 4600-6660 total kcals 1.25-1.8 g protein/kg 65-93 g total protein Fluids per MD mL/kg . total fluid mLs NUTRITION DIAGNOSIS: * Increased kcal and prot needs r/t wound healing and renal failure as evidenced by w/ multiple pressure injuries, pending re-evaluation, s/p recent PermCath placement, HD dependent. * Swallowing difficulty R/T dysphagia as evidenced by s/p recent PEG placement, on GT feeding. CURRENT TF:Jevity 1.2 @ 50ml/hr x 24 hrs ENTERAL NUTRITION RECOMMENDATIONS: Nepro @ 38ml/hr x 24 hrs to provide 912ml, 1642kcal, 74g prot, 663ml free water - Rec TF change to Nepro- HD dependent - Initiate Nepro @ 28ml/hr x 6 hrs, increase to goal as tolerated. - HOB over 30 degrees/ water flush per MD ADDITIONAL RECOMMENDATIONS: 1) Calibrated bedscale wt 2) Wound Care: add Nephrovite x 1 add Saw 1ptk BID when TF well tolerated @ goal 3) Check phos and mag levels 4) Monitor BGs, need for nISS 5) Add probiotics: h/o LBM prev adm, prolonged use of abx (4) Pressure ulcer Anshul Nava Jul 31, 2019 13:52
[2019-07-31] MEDS: Micafungin 100 MG in NS 110 ML IVPB SCH (14:22)
--- NOTE | 2019-07-31 15:16 | Operative Note - PDOC ---
Operative Note Operative Note Pre-op Diagnosis: renal insufficiency requiring HD Procedure: right femoral temporary HD catheter removal Post-op Diagnosis: same as pre-op Surgeon: madan Anesthesia: other Specimen: none Complications: none Condition: stable Fluids: none Estimated Blood Loss: none Drains: none Implant(s) used?: No Indications for Procedure 89 female hemodialysis recently removed right chest wall tunneled catheter for presumed infection and placed temporary right femoral catheter few days later after an line holiday on antibiotics. Is improved and recently had new chest wall tunneled catheter placed. Right femoral catheter needs removal. Description of Procedure 89-year-old female as above. Patient made comfortable the bedside nursing staff present. Right groin prepped and draped in prior dressings removed. Sutures cut. Catheter removed and discarded appropriately. Pressure held for approximately 15 to 20 minutes until good hemostasis noted. Dressings applied. Patient tolerated procedure well. Will monitor closely for appropriate hemostasis and to ensure no bleeding or hematoma. Anshul Nava Jul 31, 2019 15:16
--- NOTE | 2019-07-31 15:20 | Operative Note - PDOC ---
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 Consent was obtained from the family prior for all wound care and treatments as well as line placements which had spoken to the patient's daughter and with in detail prior. She is aware of the wounds and the progressive nature of them. We have discussed in the past and continue to provide maximum precautions and local care Description of Procedure Patient was made comfortable the bedside. Prior dressings removed. The right hip identified 14 cm x 8 cm by approximately 4 cm deep with the prior eschar Now necrotic and free-floating as well as remaining sloth around the skin edges and down to the base. Surgical scissors and scalpel were used and the necrotic tissue and eschar were debrided down to healthy tissue. Biofilm was identified non-excisional debridement done with gauze. Thera honey gauze dressings applied. Patient tolerated procedure well. We will continue to monitor and provide local care. Unfortunately likely notable decline given patient's condition and age and nutritional status and overall depletion. Will provide nutritional supplementation as well as maximum prevention and local care. Thank you Anshul Nava Jul 31, 2019 15:20
[2019-07-31 16:00] VITALS: BP 124/58
--- NOTE | 2019-07-31 17:02 | Infectious Diseases Prog Note ---
Assessment/Plan Assessment/Plan ASSESSMENT AND PLAN: 1. sepsis, fevers, leukocytosis, ? pna, diarrhea, covid-19 test negative, ? right hip wound infection pseudomonas bacteremia/line infection, pseudomonas pna leukocytosis worse - ? etiology fungemia risk, uti - + ua noted - zosyn, amikacin, vancomycin, micafungin x 5 days - s/p permanent HD catheter - wound care per surgery and protocol - monitor labs - blood culture negative, f/u on urine culture - monitor chest x-ray - leukocytosis better 2. The patient has end-stage renal disease, on hemodialysis - temporary HD line now 3. Skin care protocol. 4. Anemia. 5. The patient has history of dysphagia, on G-tube. 6. Aspiration risk. 7. Hypertension. 8. Altered mental status. 9. History of Strep viridans bacteremia. 10. Hypertension, treatment per primary care team. 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 12. History of non-STEMI and CAD. 13. History of rhabdomyolysis. 14. History of acute renal failure, on dialysis. 15. Coronary artery disease. 16. No known drug allergies. 17. Social history negative. 18. Family history noncontributory. 19. MAR was noted. 20. Case discussed with RN. 21. Isolation in the acute care. 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 Subjective Constitutional: Reports: fatigue; Denies: fever HEENT: Denies: congestion Respiratory: Denies: shortness of breath Cardiovascular: Denies: chest pain Gastrointestinal/Abdominal: Denies: nausea, vomiting, diarrhea Genitourinary: Reports: other - + hargrove Neurologic: Denies: headache Psychiatric: Denies: depression Skin: Denies: rash Hematologic: Denies: bleeding Musculoskeletal: Denies: pain Allergies: Coded Allergies: No Known Allergies (Unverified , 06/24/19) Objective Vital Signs Last 24 Hour Vital Signs Date Time Temp Pulse Resp B/P (MAP) Pulse Ox O2 Delivery O2 Flow Rate FiO2 07/31/19 08:00 98.9 106 20 145/69 (94) 97 07/31/19 04:00 98.9 99 19 129/56 (80) 98 07/31/19 04:00 113 07/31/19 00:00 98.7 104 19 106/50 (68) 97 07/31/19 00:00 104 07/30/19 21:11 97 127/63 4/7/20 21:00 Nasal Cannula 2.0 07/30/19 20:00 94 07/30/19 20:00 98.0 97 17 127/63 (84) 100 Height (Feet): 5 Height (Inches): 3.00 Weight (Pounds): 132 General Appearance: no acute distress HEENT: normocephalic, atraumatic, anicteric, mucous membranes moist Respiratory/Chest: no accessory muscle use, crackles/rales, rhonchi - bilaterally Cardiovascular: normal rate, regular rhythm, no gallop/murmur, no JVD Abdomen: normal bowel sounds, soft, non tender, no organomegaly, non distended Genitourinary: other - + hargrove Extremities: other - wounds - covered Skin: no rash Neurologic/Psychiatric: 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 Findings: Pulmonary vessel congestion noted. Heart is enlarged. Interstitial edema is mild. Bones are osteopenic. IMPRESSION: Mild interstitial edema Chest x-ray - 07/19/19 - Impression: Worsening of aeration with increasing haziness of the pulmonary vascularity and development of hazy perihilar airspace opacities. Findings likely related to fluid overload/CHF. Superimposed infection however not excluded. Clinical correlation and follow-up recommended. CT scan of abdomen and pelvis: IMPRESSION: Limited exam without intravenous contrast. Within these limitations: * Patchy opacities in the lung bases, left greater than right. Findings may related to subsegmental atelectasis. Possibility of pneumonia however not excluded. * Extensive coronary arterial calcifications. * Dialysis catheter partially visualized. * Indwelling gastrostomy and rectal tubes. * No intraabdominal fluid collection/abscess. * Interval removal of Hargrove catheter. Bladder is mildly distended but otherwise unremarkable. * Extensive atherosclerotic vascular calcifications. * Irregularity the skin overlying the inferior aspect of the sacrum. Correlate clinically to exclude the possibility of sacral decubitus ulcer. No subcutaneous fluid collection/abscess. * Osteopenia and severe degenerative changes of the spine with unchanged vertebral body compression deformities. * 1.5 cm cystic l Chest x-ray - 07/22/19 - Procedure: XRAY Chest 1v Indication: Dyspnea Comparison: 07/19/2019 A single view chest radiograph was obtained. Findings: No definite infiltrate or pulmonary vascular congestion identified. Right permacath was removed. The heart is enlarged. The aorta is mildly enlarged consistent with atherosclerotic vascular disease. The bones are osteopenic. There are thoracic vertebral enthesophytes at multiple levels. Chest x-ray - 07/28/19 - Impression: COMPARISON: Chest x-rays dated 07/14/19, 07/06/19, 07/01/19. FINDINGS: Lungs: Mild pulmonary vascular congestion, improved compared to the prior exam. No new focal consolidation. Pleural space: Unremarkable. The costophrenic angles are sharp. No visible pneumothorax. Heart: Unremarkable. No cardiomegaly. Mediastinum: Unremarkable. Bones/joints: Unremarkable. Vasculature: Atherosclerotic calcifications are noted within the aortic arch. Tubes, lines and devices: Interval removal of the right IJ central venous catheter. Telemetry leads overlie the thorax. IMPRESSION: Mild pulmonary vascular congestion, improved compared to the prior exam. No acute disease Microbiology Date/Time Source Procedure Growth Status 07/26/19 15:00 Blood Blood Culture - Preliminary NO GROWTH AFTER 4 DAYS Resulted 07/20/19 04:30 Sputum Induced Gram Stain - Final Complete 07/20/19 04:30 Sputum Culture - Final Pseudomonas Aeruginosa Melanie Albicans Usual Respiratory Cristina Complete 07/28/19 03:50 Stool Clostridium difficile Toxin Assay - Final Complete 07/27/19 11:20 Indwelling Cath Urine Culture - Preliminary Resulted 07/20/19 13:18 Catheter Site Catheter Tip Culture - Final NO GROWTH AFTER 4 DAYS Complete Laboratory Tests Test 07/31/19 06:13 White Blood Count 13.3 K/UL (4.8-10.8) H Red Blood Count 2.62 M/UL (4.20-5.40) L Hemoglobin 7.8 G/DL (12.0-16.0) L Hematocrit 23.8 % (37.0-47.0) L Mean Corpuscular Volume 91 FL (80-99) Mean Corpuscular Hemoglobin 29.7 PG (27.0-31.0) Mean Corpuscular Hemoglobin Concent 32.7 G/DL (32.0-36.0) Red Cell Distribution Width 12.4 % (11.6-14.8) Platelet Count 393 K/UL (150-450) Mean Platelet Volume 7.3 FL (6.5-10.1) Neutrophils (%) (Auto) % (45.0-75.0) Lymphocytes (%) (Auto) % (20.0-45.0) Monocytes (%) (Auto) % (1.0-10.0) Eosinophils (%) (Auto) % (0.0-3.0) Basophils (%) (Auto) % (0.0-2.0) Differential Total Cells Counted 100 Neutrophils % (Manual) 64 % (45-75) Lymphocytes % (Manual) 28 % (20-45) Monocytes % (Manual) 6 % (1-10) Eosinophils % (Manual) 2 % (0-3) Basophils % (Manual) 0 % (0-2) Band Neutrophils 0 % (0-8) Platelet Estimate Adequate Platelet Morphology Normal Polychromasia 1+ Hypochromasia 2+ Sodium Level 138 MMOL/L (136-145) Potassium Level 3.7 MMOL/L (3.5-5.1) Chloride Level 100 MMOL/L (98-107) Carbon Dioxide Level 21 MMOL/L (21-32) Anion Gap 17 mmol/L (5-15) H Blood Urea Nitrogen 93 mg/dL (7-18) H Creatinine 4.5 MG/DL (0.55-1.30) H Estimat Glomerular Filtration Rate 11.2 mL/min (>60) Glucose Level 137 MG/DL (74-106) H Calcium Level 9.8 MG/DL (8.5-10.1) Random Vancomycin Level 34.0 ug/mL Current Medications Medications (Trade) Dose Ordered Sig/Joan Route PRN Reason Start Time Stop Time Status Last Admin Dose Admin Acetaminophen (Tylenol) 650 mg Q4H PRN ORAL Mild Pain (Pain Scale 1-3) 07/14/19 14:45 08/13/19 14:44 07/22/19 08:45 Albumin Human 100 ml @ 100 mls/hr ONCE IV 07/31/19 13:00 07/31/19 18:00 Albumin Human 100 ml @ 100 mls/hr ONCE IV 07/31/19 13:00 07/31/19 18:00 Amikacin Protocol (Amikacin pharmacy to dose) 1 ea DAILY PRN MISC Per rx protocol 07/27/19 16:30 08/26/19 16:29 Atorvastatin Calcium (Lipitor) 10 mg QHS GT 07/14/19 21:00 10/12/19 20:59 07/30/19 21:10 Carvedilol (Coreg) 6.25 mg EVERY 12 HOURS ORAL 07/30/19 21:00 08/18/19 08:59 07/30/19 21:11 Chlorhexidine Gluconate (Cari-Hex 2%) 1 applic DAILY@2000 TOPIC 07/15/19 20:00 10/13/19 19:59 07/30/19 20:37 Dextrose (Dextrose 50%) 25 ml Q30M PRN IV Hypoglycemia 07/14/19 14:45 10/12/19 14:44 Dextrose (Dextrose 50%) 50 ml Q30M PRN IV Hypoglycemia 07/14/19 14:45 10/12/19 14:44 Epoetin Dion (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)) 4,000 unit MON-MON-MON SUBQ 07/24/19 21:00 10/22/19 20:59 07/29/19 21:03 Heparin Sodium (Porcine) (Heparin 5000 units/ml) 5,000 units EVERY 12 HOURS SUBQ 07/14/19 21:00 08/28/19 20:59 07/31/19 10:25 Hydralazine HCl (Apresoline) 10 mg Q4H PRN IV For High Blood Pressure 07/14/19 15:30 10/12/19 15:29 Lactobacillus Acidophilus (Culturelle) 1 tab Q12HR GT 07/15/19 12:14 10/13/19 12:13 07/31/19 10:22 Loperamide HCl (Imodium) 2 mg Q6H PRN NG Diarrhea 07/18/19 09:00 08/17/19 08:59 07/31/19 10:22 Micafungin Sodium 100 mg/Sodium Chloride 110 ml @ 110 mls/hr Q24H IVPB 07/28/19 12:00 08/04/19 11:59 07/31/19 14:22 Ondansetron HCl (Zofran) 4 mg Q6H PRN IVP Nausea & Vomiting 07/14/19 14:45 08/13/19 14:44 Piperacillin Sod/ Tazobactam Sod 3.375 gm/Dextrose 110 ml @ 27.5 mls/hr EVERY 12 HOURS IVPB 07/27/19 21:00 08/01/19 20:59 07/31/19 10:26 Tramadol HCl (Ultram) 25 mg Q6H PRN ORAL For Pain 07/28/19 12:30 08/04/19 12:29 07/30/19 21:44 Vancomycin HCl (Vanco rx to dose) 1 ea DAILY PRN MISC Per rx protocol 07/27/19 16:30 08/26/19 16:29 Ana Rosado MD Jul 31, 2019 17:02
--- NOTE | 2019-07-31 19:30 | NUR ---
HAND-OFF: Report given to salas/justin, pt in stable condition, just finished dialysis, 1L out.
--- NOTE | 2019-07-31 20:08 | NUR ---
NURSE NOTES: Received pt from HYUN Villarreal. Pt awake, alert, and receiving dialysis. Bed in lowest position. Call light within reach. Will continue to monitor.
[2019-07-31] MEDS: Epoetin Alfa-EPBX(ESRD on dialysis)4000 units/ml vial SUBQ SCH (22:22)
[2019-07-31 22:32] VITALS: BP 141/57
[2019-07-31] MEDS: Dyna-Hex 2% Top Sol 2oz TOPIC SCH (22:34)
[2019-08-01] VITALS: BP 100/48
[2019-08-01] MEDS ORDERED: Amikacin 500 MG in NS 110 ML IV ONE ×2
[2019-08-01 04:00] VITALS: BP 106/61
--- NOTE | 2019-08-01 07:15 | NUR ---
NURSE NOTES: pt in bed awake, AOx1. cardiac nurse on, no signs of cardiac or respiratory distress at this time. Call light within reach, bed in lowest position, side rails up x2, alarm on. pt has hargrove and rectal tube. pt also has Gtube and is running well. Will continue to monitor pt.
[2019-08-01 08:00] VITALS: BP 138/74
--- NOTE | 2019-08-01 08:00 | NUR ---
HAND-OFF: Report given to HYUN Villarreal. Pt stable.
--- NOTE | 2019-08-01 08:39 | Urology Progress Note ---
Assessment/Plan Status: stable Assessment/Plan: 1. Hematuria, which was previously gross and now microscopic. 2. End-stage renal disease, on hemodialysis. 3. Urinary retention history, now with incontinence. 4. Probable neurogenic bladder. 5. Pyuria. 6. Proteinuria. 7. History of acute kidney injury. 9. Nephrolithiasis. 8. Sepsis? 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 lawn caretaker f/u on last urine cx Subjective Allergies: Coded Allergies: No Known Allergies (Unverified , 06/24/19) Subjective all noted, hargrove indwelling, some mild bleeding reported Objective Last 24 Hour Vital Signs Date Time Temp Pulse Resp B/P (MAP) Pulse Ox O2 Delivery O2 Flow Rate FiO2 08/01/19 04:00 97 08/01/19 04:00 98.9 94 20 106/61 (76) 100 08/01/19 00:00 98.0 92 20 100/48 (65) 100 08/01/19 00:00 95 07/31/19 22:33 104 141/57 07/31/19 22:32 99.4 104 141/57 (85) 100 07/31/19 21:00 Nasal Cannula 2.0 07/31/19 20:00 110 07/31/19 16:00 104 07/31/19 16:00 98.8 98 18 124/58 (80) 98 07/31/19 12:00 96 07/31/19 12:00 98.2 99 19 146/73 (97) 99 07/31/19 09:00 Nasal Cannula 2.0 Intake and Output 07/31/19 08/01/19 19:00 07:00 Intake Total 456 ml Output Total 1200 ml Balance -744 ml Tube Feeding 456 ml Stool Total 200 ml Hemodialysis UF 1000 ml Microbiology Date/Time Source Procedure Growth Status 07/26/19 15:00 Blood Blood Culture - Final NO GROWTH AFTER 5 DAYS Complete 07/20/19 04:30 Sputum Induced Gram Stain - Final Complete 07/20/19 04:30 Sputum Culture - Final Pseudomonas Aeruginosa Melanie Albicans Usual Respiratory Cristina Complete 07/28/19 03:50 Stool Clostridium difficile Toxin Assay - Final Complete 07/27/19 11:20 Indwelling Cath Urine Culture - Preliminary Resulted 07/20/19 13:18 Catheter Site Catheter Tip Culture - Final NO GROWTH AFTER 4 DAYS Complete Current Medications Medications (Trade) Dose Ordered Sig/Joan Route PRN Reason Start Time Stop Time Status Last Admin Dose Admin Acetaminophen (Tylenol) 650 mg Q4H PRN ORAL Mild Pain (Pain Scale 1-3) 07/14/19 14:45 08/13/19 14:44 07/22/19 08:45 Amikacin Protocol (Amikacin pharmacy to dose) 1 ea DAILY PRN MISC Per rx protocol 07/27/19 16:30 08/26/19 16:29 Atorvastatin Calcium (Lipitor) 10 mg QHS GT 07/14/19 21:00 10/12/19 20:59 07/31/19 22:24 Carvedilol (Coreg) 6.25 mg EVERY 12 HOURS ORAL 07/30/19 21:00 08/18/19 08:59 07/31/19 22:33 Chlorhexidine Gluconate (Cari-Hex 2%) 1 applic DAILY@1999 TOPIC 07/15/19 20:00 10/13/19 19:59 07/31/19 22:34 Dextrose (Dextrose 50%) 25 ml Q30M PRN IV Hypoglycemia 07/14/19 14:45 10/12/19 14:44 Dextrose (Dextrose 50%) 50 ml Q30M PRN IV Hypoglycemia 07/14/19 14:45 10/12/19 14:44 Epoetin Dion (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)) 4,000 unit MON-MON-MON SUBQ 07/24/19 21:00 10/22/19 20:59 07/31/19 22:22 Heparin Sodium (Porcine) (Heparin 5000 units/ml) 5,000 units EVERY 12 HOURS SUBQ 07/14/19 21:00 08/28/19 20:59 07/31/19 10:25 Hydralazine HCl (Apresoline) 10 mg Q4H PRN IV For High Blood Pressure 07/14/19 15:30 10/12/19 15:29 Lactobacillus Acidophilus (Culturelle) 1 tab Q12HR GT 07/15/19 12:14 10/13/19 12:13 07/31/19 22:23 Loperamide HCl (Imodium) 2 mg Q6H PRN NG Diarrhea 07/18/19 09:00 08/17/19 08:59 07/31/19 10:22 Micafungin Sodium 100 mg/Sodium Chloride 110 ml @ 110 mls/hr Q24H IVPB 07/28/19 12:00 08/04/19 11:59 07/31/19 14:22 Ondansetron HCl (Zofran) 4 mg Q6H PRN IVP Nausea & Vomiting 07/14/19 14:45 08/13/19 14:44 Piperacillin Sod/ Tazobactam Sod 3.375 gm/Dextrose 110 ml @ 27.5 mls/hr EVERY 12 HOURS IVPB 07/31/19 21:00 08/05/19 20:59 07/31/19 22:30 Tramadol HCl (Ultram) 25 mg Q6H PRN ORAL For Pain 07/28/19 12:30 08/04/19 12:29 07/30/19 21:44 Vancomycin HCl (Vanco rx to dose) 1 ea DAILY PRN MISC Per rx protocol 07/27/19 16:30 08/26/19 16:29 Laboratory Tests 07/31/19 18:10: Random Amikacin Level 5.9 Height (Feet): 5 Height (Inches): 3.00 Weight (Pounds): 132 Objective exam stable hargrove indwelling with scant neal urine, some debris CT A/P (07/18) noted Omar Mckoy MD Aug 01, 2019 08:39
--- NOTE | 2019-08-01 10:13 | General Progress Note ---
Assessment/Plan Status: stable Assessment/Plan: 1. End-stage renal disease, on hemodialysis. 2. Anemia. 3. Dysphagia, status post G-tube placement. 4. Pneumonia. 5. Pancreatic cyst. 6. Hypertension. 7. Diarrhea 8. Leukocytosis C.diff>> neg imodium prn GTF abx per ID HD per nephrology repeal labs in am transfuse if hgb drops below 7 fu urology for hematuria pending placement Subjective ROS Limited/Unobtainable: No Allergies: Coded Allergies: No Known Allergies (Unverified , 06/24/19) Objective Last 24 Hour Vital Signs Date Time Temp Pulse Resp B/P (MAP) Pulse Ox O2 Delivery O2 Flow Rate FiO2 08/01/19 08:00 98.6 103 22 138/74 (95) 100 08/01/19 04:00 97 08/01/19 04:00 98.9 94 20 106/61 (76) 100 08/01/19 00:00 98.0 92 20 100/48 (65) 100 08/01/19 00:00 95 07/31/19 22:33 104 141/57 07/31/19 22:32 99.4 104 141/57 (85) 100 07/31/19 21:00 Nasal Cannula 2.0 07/31/19 20:00 110 07/31/19 16:00 104 07/31/19 16:00 98.8 98 18 124/58 (80) 98 07/31/19 12:00 96 07/31/19 12:00 98.2 99 19 146/73 (97) 99 Intake and Output 07/31/19 08/01/19 19:00 07:00 Intake Total 456 ml Output Total 1200 ml Balance -744 ml Tube Feeding 456 ml Stool Total 200 ml Hemodialysis UF 1000 ml Laboratory Tests 07/31/19 18:10: Random Amikacin Level 5.9 Height (Feet): 5 Height (Inches): 3.00 Weight (Pounds): 132 General Appearance: lethargic EENT: normal ENT inspection Neck: supple Cardiovascular: normal rate Respiratory/Chest: decreased breath sounds Abdomen: normal bowel sounds, non tender, soft Extremities: non-tender Jun Mena MD Aug 01, 2019 10:13
[2019-08-01] MEDS: Lactobacillus-GG tablet GT SCH ×2 (10:22→22:03)
[2019-08-01] MEDS: Carvedilol 6.25mg Tab ORAL SCH ×2 (10:22→22:03)
[2019-08-01] MEDS: Piperacillin/Tazobactam 3.375 GM in D5W 110 ML IVPB SCH ×2 (10:22→22:03)
[2019-08-01] MEDS: Heparin 5000 units/ml inj SUBQ SCH ×2 (10:24→22:06)
--- NOTE | 2019-08-01 11:23 | Nephrology Progress Note ---
Assessment/Plan Plan #Acute renal failure recent started on HD in 06/2018- #Sepsis #Dementia #HTN #elevated troponin #Dysphagia s/p PEG #urinary retention - permacath 07/29 - plan for HD tomorrow - monitor BMP closeric - agree with FWF 100 q6 - continue lasix 80 IV daily -> switch to oral on DC - cardiology eval - monitor UOP---> increasing - urology eval - continue antibiotics per ID - coreg 3.125mg BID - follow repeat blood cx- growing pseudomonas - check iron panel, ferritin-> ferritin supersaturated - continue epogen 4K TIW - monitor BMP, mag and phos daily for now Subjective Subjective Permcath placed yesterday s/p HD yesterday with 1L UF BP stable breathing stable on NC Objective Objective Last 24 Hour Vital Signs Date Time Temp Pulse Resp B/P (MAP) Pulse Ox O2 Delivery O2 Flow Rate FiO2 08/01/19 10:22 103 138/74 08/01/19 08:00 98.6 103 22 138/74 (95) 100 08/01/19 04:00 97 08/01/19 04:00 98.9 94 20 106/61 (76) 100 08/01/19 00:00 98.0 92 20 100/48 (65) 100 08/01/19 00:00 95 07/31/19 22:33 104 141/57 07/31/19 22:32 99.4 104 141/57 (85) 100 07/31/19 21:00 Nasal Cannula 2.0 07/31/19 20:00 110 07/31/19 16:00 104 07/31/19 16:00 98.8 98 18 124/58 (80) 98 07/31/19 12:00 96 07/31/19 12:00 98.2 99 19 146/73 (97) 99 Intake and Output 07/31/19 08/01/19 19:00 07:00 Intake Total 456 ml Output Total 1200 ml Balance -744 ml Tube Feeding 456 ml Stool Total 200 ml Hemodialysis UF 1000 ml Laboratory Tests 07/31/19 18:10: Random Amikacin Level 5.9 Height (Feet): 5 Height (Inches): 3.00 Weight (Pounds): 132 Objective General: NAD, A&O x 1, self only HEENT: NCAT, EOMi, PEERLA, nares patent and no symmetrical, no tonsillar exudates, mucous membranes moist CV: RRR, no murmurs, rubs, or gallops Pulm: CTAB, No wheezes, rhonchi, or rales, no accessory muscle usage or conversational dyspnea GI: Soft, nontender, nondistended, bowel sounds present, PEG tube in place, C/D/ I Neuro: CN 2-12 grossly intact bilaterally, no focal signs. Ext: No lower extremity edema bilaterally, LE contracted bilaterally Skin: Multiple pressure ulcers noted on hip/heels Lymph: No lymphadenopathy in upper extremity and lower extremity Rory Oconnor M.D. Aug 01, 2019 11:23
[2019-08-01 12:00] VITALS: BP 101/59
--- NOTE | 2019-08-01 12:36 | NUR ---
*-*DISCHARGE PLANNING*-* PATIENT HAS BEEN REFERRED BACK TO: [facility] P: [phone] F: [phone] Addendum: 08/01/19 at 1705 by ETTA DE ANDA CM *-*DISCHARGE PLANNING*-* PATIENT HAS BEEN REFERRED BACK TO: [facility] P: [phone] PLACED A CALL 5X's OR MORE, NO ANSWER, SPOKE WITH JEREMIAH, WHO STATED [facility] IS REVIEWING CLINICALS, PLACED TWO MORE CALLS AFTER 45 MINS, STILL NO RESPONSE. ~~~~~~APPLIED MATHEMATICIAN WILL CONTINUE TO FOLLOW UP~~~~
[2019-08-01] MEDS: Micafungin 100 MG in NS 110 ML IVPB SCH (12:53)
--- NOTE | 2019-08-01 14:10 | Cardiac Electrophysiology PN ---
Assessment/Plan Assessment/Plan 1. Sinus Tachycardia due to sepsis . WBC down to 12K On Coreg 6.25 mg b.i.d. as well as IV antibiotic 2. Hypertension. On Coreg to 6.26 mg b.i.d. 3. Troponin leak and history of CAD and prior NSTEMI. Likely due to renal failure. EKG SR with LVH. Echo EF 65%. 4. End-stage renal disease, now on hemodialysis. Has new Perm Cath. Removed Aman 5. Pneumonia, fever and sepsis. COVID-19 was ruled out. Antibiotics per ID. 6. Dysphagia, status post G-tube placement. GALLO RN OK to DC Subjective Subjective Had PermCath in R chest.Had HD yesterday. R femoral Aman was removed Objective Last 24 Hour Vital Signs Date Time Temp Pulse Resp B/P (MAP) Pulse Ox O2 Delivery O2 Flow Rate FiO2 08/01/19 10:22 103 138/74 08/01/19 08:00 98.6 103 22 138/74 (95) 100 08/01/19 04:00 97 08/01/19 04:00 98.9 94 20 106/61 (76) 100 08/01/19 00:00 98.0 92 20 100/48 (65) 100 08/01/19 00:00 95 07/31/19 22:33 104 141/57 07/31/19 22:32 99.4 104 141/57 (85) 100 07/31/19 21:00 Nasal Cannula 2.0 07/31/19 20:00 110 07/31/19 16:00 104 07/31/19 16:00 98.8 98 18 124/58 (80) 98 Intake and Output 07/31/19 08/01/19 19:00 07:00 Intake Total 456 ml Output Total 1200 ml Balance -744 ml Tube Feeding 456 ml Stool Total 200 ml Hemodialysis UF 1000 ml Laboratory Tests Test 07/31/19 18:10 Random Amikacin Level 5.9 MG/L Objective HEAD AND NECK: No JVD. LUNGS: Coarse rhonchi.Right chest PermCath CARDIOVASCULAR: Tachy S1 and S2 with no murmur ABDOMEN: Soft. EXTREMITIES: No pitting edema.Contracted. Cristopher Osman MD Aug 01, 2019 14:10
--- NOTE | 2019-08-01 14:28 | Surgery Progress Note ---
Surgery Progress Note Subjective Procedure Performed Excisional debridement of stage IV right trochanter decubitus ulcer eschar and necrotic slough 8 cm x 14 cm x 4 cm deep Symptoms: improved, tolerating diet, passing flatus Objective Last 24 Hour Vital Signs Date Time Temp Pulse Resp B/P (MAP) Pulse Ox O2 Delivery O2 Flow Rate FiO2 08/01/19 10:22 103 138/74 08/01/19 08:00 98.6 103 22 138/74 (95) 100 08/01/19 04:00 97 08/01/19 04:00 98.9 94 20 106/61 (76) 100 08/01/19 00:00 98.0 92 20 100/48 (65) 100 08/01/19 00:00 95 07/31/19 22:33 104 141/57 07/31/19 22:32 99.4 104 141/57 (85) 100 07/31/19 21:00 Nasal Cannula 2.0 07/31/19 20:00 110 07/31/19 16:00 104 07/31/19 16:00 98.8 98 18 124/58 (80) 98 I&O Intake and Output 07/31/19 08/01/19 19:00 07:00 Intake Total 456 ml Output Total 1200 ml Balance -744 ml Tube Feeding 456 ml Stool Total 200 ml Hemodialysis UF 1000 ml Dressing: saturated Wound: other Cardiovascular: RSR Respiratory: decreased breath sounds Abdomen: soft, non-tender, present bowel sounds Extremities: no tenderness, no cyanosis, other Laboratory Tests Test 07/31/19 18:10 Random Amikacin Level 5.9 MG/L Plan Problems: (1) Decubitus skin ulcer Assessment & Plan: Pt presented on admission with multiple pressure injuries. Unstageable pressure injury R shoulder(L)3.8cm x (W)3.3cm. Base of wound is 100 % necrotic and dry. Marginal erythema along borders. No erythema or induration periwound. Reabsorbed DTPI R Humerus. Base of injury has dry peeling brown skin with underlying dry pink epithelial. R elbow pressure injury has resolved. Full thickness pressure injury R hip (L)7cm x (W)13.1cm. Base of wound is 70% fibrinous slough,10% necrotic ,20% moist pink granulation. Edges are macerated.Small amt seropurulent non-odorous exudate noted. NO erythema , induration or elevation in skin temp periwound. Opened DTPI Sacrum(L)9cm x (W)15cm. Base of wound is purple,indurated with an open wound at sacrococcygeal which has 100% slough(L)1.6cm x (W)1cm. Surrounding Skin hypopigmentation with areas of excoriation extending into perineum and perianal area. Unstageable pressure injury lateral R malleolus(L)2.5cm x (W)3cm. Base of wound is 100% dry necrosis. Edges adherent to base of wound. No erythema induration or fluctuance periwound. Reabsorbing DTPI R heel. Base of Heel is boggy,non-blanching erythema with dry peeling brown skin along edges.(L)4.2cm x (W)6cm. Resolving DTPI distal/lateral R foot. Stable dry brown eschar without fluctuance or induration(L)1cm x (W)1.5cm. Resolving DTPI Lateral R 5th metatarsal.Base of injury is dry,brown without fluctuance or induration.(L)0.6cm x (W)1cm Unstageable pressure injury L Hallux(L)4cm x (W)2.7cm. Base of wound is 80% necrotic,20% slough with marginal erythema along borders. No odor or exudate noted. DTPI L Heel. Base of injury maroon and fluctuant. Periwound is boggy but blanchable(L)5.5cm x (W)6.5cm. Tx.Plan: Cleanse R shoulder with Saline. Apply Therahoney. Apply Cavilon Periwound. Cover with Optifoam drsg. Change every 3 days and prn. Cleanse R hip with Saline. Apply Therahoney.Apply Moisture Barrier Periwound. Cover with Optifoam drsg. Change Daily and prn. Cleanse Sacrum with Saline. Apply Therahoney. Apply Moisture Barrier Paste periwound. Cover with Optifoam drsg. Change every 3 days and prn. Apply Moisture Barrier Paste to perineum and perianal areas with each incontinence care. Apply Betadine to R heel,Distal/lateral R foot ,R5th metatarsal. Cover with Optifoam drsg. Change every 3 days and prn. Apply Betadine to L hallux,and L heel. Cover each site with Optifoam drsg. Change every 3 days and prn. Reposition at least every 2hours or as tolerated. Place pillow between knees. off-load heels with pillow. (2) Fever Assessment & Plan: covid negative discussed with pcp and nephro may need to remove catheter as possible etiology covid negative c diff negative blood cultures from line. if positive will remove after next HD then line holiday blood cx with gram neg d/c line Line removed see note Line holiday new line placed see note cont hd Antibiotics as per infectious disease new permacath placed d/c fem line d/c planning line out doing better wounds deteriorating now debrided cont care plan (3) Protein calorie malnutrition Assessment & Plan: DAILY ESTIMATED NEEDS: Needs based on Wounds, HD 51.8kg 30-35 kcals/kg [id number] total kcals 1.25-1.8 g protein/kg 65-93 g total protein Fluids per MD mL/kg . total fluid mLs NUTRITION DIAGNOSIS: * Increased kcal and prot needs r/t wound healing and renal failure as evidenced by w/ multiple pressure injuries, pending re-evaluation, s/p recent PermCath placement, HD dependent. * Swallowing difficulty R/T dysphagia as evidenced by s/p recent PEG placement, on GT feeding. CURRENT TF:Jevity 1.2 @ 50ml/hr x 24 hrs ENTERAL NUTRITION RECOMMENDATIONS: Nepro @ 38ml/hr x 24 hrs to provide 912ml, 1642kcal, 74g prot, 663ml free water - Rec TF change to Nepro- HD dependent - Initiate Nepro @ 28ml/hr x 6 hrs, increase to goal as tolerated. - HOB over 30 degrees/ water flush per MD ADDITIONAL RECOMMENDATIONS: 1) Calibrated bedscale wt 2) Wound Care: add Nephrovite x 1 add Saw 1ptk BID when TF well tolerated @ goal 3) Check phos and mag levels 4) Monitor BGs, need for nISS 5) Add probiotics: h/o LBM prev adm, prolonged use of abx (4) Pressure ulcer Anshul Nava Aug 01, 2019 14:28
--- NOTE | 2019-08-01 14:29 | General Progress Note ---
Assessment/Plan Status: stable Assessment/Plan: 89-year-old female with PMH of acute renal failure, s/p right chest wall permacath on HD, dysphasia s/p PEG, multiple pressure wounds, HTN, h/o AMS was recently discharged from this facility for KAREN/rhabdo, unwitnessed fall, was sent to [facility] and returned here due to fevers. Patient was admitted for persistent fevers and for sepsis/COVID 19 rule out. ED course: BMP 8000, troponin 0 0.347, patient given for septic work-up and will be admitted for further treatment. #Sepsis #Pseudomonas bacteremia #Pseudomonas PNA #leukocytosis #Diarrhea #ESRD on HD -continue inpatient level of care -COVID-19 NEGATIVE -c diff negative (07/16 and 07/25) -Imodium prn -CT abd/pelvis results reviewed -Permacath removed 07/19, line Cx negative -s/p temp cath right femoral 07/22 -07/25 BCx NGTD -CXR 07/27: mild pulmonary congestion, improved compared to previous -ID following: Zosyn, amikacin, vanc, micofungin, will discuss duration of abx with ID in preparation for discharge to SNF soon -S/p permacath placement 07/29, continue HD as per Nephrology #Anemia of chronic dx -cont. to monitor for signs/symptoms of bleeding -check iron panel, ferritin-> ferritin supersaturated -epogen 4K TIW #Hypernatremia - resolved #Hyperkalemia - resolved #Hypokalemia - resolved -potassium replaced, ctm, replace PRN -FWF 100 cc q6 -Nephro following #HTN #elevated troponin #BNP elevated #Sinus tachycardia -trops stable 0.254, 0.240, 0.248 >>0.072 -likely due to demand ischemia, ESRD, sepsis -ASA, statin -off lasix for now given low bp -hydralazine PRN for SBP >160 -Carvedilol 3.25 mg BID -Cardio following, reccs appreciated #Hematuria #Possible Urinary retention. #Possible neurogenic bladder. -UA w/ evidence of RBCs, 4+ blood -Urology following #Dysphagia -s/p PEG -tolerating TF -Dietary and GI following, recs appreciated -d/w ST, pt currently unable to manage PO, recommends pt to f/u w/ST as o/p for o/p video swallow once more stable #Dementia -stable -neuro following, appreciate recs #Pressure wounds -Cont. wound care DVT ppx - heparin sc Patient medically cleared for discharge back to SNF on IV abx once bed available. Subjective Date patient seen: Aug 01, 2019 Time patient seen: 14:27 ROS Limited/Unobtainable: Yes Allergies: Coded Allergies: No Known Allergies (Unverified , 06/24/19) Subjective Follow up for recurrent sepsis, ESRD. COVID ruled out S/p permacath placement 07/29, underwent HD yesterday No new events. Objective Last 24 Hour Vital Signs Date Time Temp Pulse Resp B/P (MAP) Pulse Ox O2 Delivery O2 Flow Rate FiO2 08/01/19 10:22 103 138/74 08/01/19 08:00 98.6 103 22 138/74 (95) 100 08/01/19 04:00 97 08/01/19 04:00 98.9 94 20 106/61 (76) 100 08/01/19 00:00 98.0 92 20 100/48 (65) 100 08/01/19 00:00 95 07/31/19 22:33 104 141/57 07/31/19 22:32 99.4 104 141/57 (85) 100 07/31/19 21:00 Nasal Cannula 2.0 07/31/19 20:00 110 07/31/19 16:00 104 07/31/19 16:00 98.8 98 18 124/58 (80) 98 Intake and Output 07/31/19 08/01/19 19:00 07:00 Intake Total 456 ml Output Total 1200 ml Balance -744 ml Tube Feeding 456 ml Stool Total 200 ml Hemodialysis UF 1000 ml Laboratory Tests 07/31/19 18:10: Random Amikacin Level 5.9 Height (Feet): 5 Height (Inches): 3.00 Weight (Pounds): 132 General Appearance: alert, confused Cardiovascular: normal rate, regular rhythm Respiratory/Chest: lungs clear, normal breath sounds Abdomen: non tender, soft Oumar Foy MD Aug 01, 2019 14:29
[2019-08-01 16:00] VITALS: BP 102/57
[2019-08-01 20:00] VITALS: BP 134/68
--- NOTE | 2019-08-01 20:16 | NUR ---
HAND-OFF: Report given to Maribell/RN, pt in stable condition, wound dressing change was done.
--- NOTE | 2019-08-01 20:25 | NUR ---
NURSE NOTES: Received report from HYUN Villarreal. Patient is awake lying semi-mei's; resting comfortably. No signs of acute distress or pain noted at this time. On 2L nasal cannula. AOx1; unable to make needs known. Checked IV site; patent and flushed. No erythema, bleeding, or infiltration noted. On low air loss, p200 mattress for appropriate wound management. G-tube in place. Nepro running at 38 mls/hr. Rectal tube draining well to gravity. Sanchez catheter in place draining little amount of urine. Bed at lowest position, brakes on, siderails up x3. Call light within reach. Will continue to monitor.
[2019-08-01] MEDS: Dyna-Hex 2% Top Sol 2oz TOPIC SCH (22:04)
--- NOTE | 2019-08-01 22:17 | Neurology Progress Note ---
Interim History Interim History ROS Limited/Unobtainable: Yes Interim History no new neuro deficits Objective Physical Exam Last Vital Signs Date Time Temp Pulse Resp B/P (MAP) Pulse Ox O2 Delivery O2 Flow Rate FiO2 08/01/19 22:03 101 134/68 08/01/19 16:00 98.2 22 100 08/01/19 09:00 Nasal Cannula 2.0 Head: normocophalic Neck: no rigidity EENT: benign Neurologic Exam Mental Status: awake Cranial Nerves III, IV, : PERRLA Objective Wakes up, tracks with eyes, tell me her name, withdraws all 4 Impression/Recommendations Problems: (1) Decubitus skin ulcer (2) Fever (3) Rhabdomyolysis (4) Elevated troponin (5) KAREN (acute kidney injury) (6) Fever (7) Elevated brain natriuretic peptide (BNP) level (8) ESRD (end stage renal disease) on dialysis (9) ESRD (end stage renal disease) on dialysis (10) Pressure ulcer (11) Protein calorie malnutrition (12) Dysphagia Status: stable Diagnostic Impression Acute encephalopathy, improved baseline dementia Sepsis Monitor neuro exam for improvement cont atb neg covid Delirium precautions Sushil Stevenson MD Aug 01, 2019 22:17
[2019-08-02] VITALS: BP 126/65
[2019-08-02 04:00] VITALS: BP 141/69
--- NOTE | 2019-08-02 05:04 | NUR ---
NURSE NOTES: Called Dr. Oconnor for hemodialysis order. Received order to use the same dialysis order from 07/31/2019. Noted and carried out.
--- NOTE | 2019-08-02 05:11 | NUR ---
NURSE NOTES: Spoke with Mehnaz from [facility] regarding confirmation for patient's hemodialysis procedure later today. Was told, "I'll notify the on-call dialysis nurse."
[2019-08-02 05:57] LABS: BASOPHILS % (AUTO) 0.7 % (0.0-2.0); EOSINOPHILS % (AUTO) 1.4 % (0.0-3.0); HEMATOCRIT 25.1 % (37.0-47.0); HEMOGLOBIN 8.1 G/DL (12.0-16.0); LYMPHOCYTES % (AUTO) 20.2 % (20.0-45.0); MEAN CORPUSCULAR VOLUME 90 FL (80-99); MONOCYTES % (AUTO) 10.3 % (1.0-10.0); NEUTROPHILS % (AUTO) 67.4 % (45.0-75.0); PLATELET COUNT 376 K/UL (150-450); RED CELL DISTRIBUTION WIDTH 12.7 % (11.6-14.8); WHITE BLOOD COUNT 14.1 K/UL (4.8-10.8)
[2019-08-02 06:13] LABS: ANION GAP 14 mmol/L (5-15); BLOOD UREA NITROGEN 72 mg/dL (7-18); CARBON DIOXIDE 30 MMOL/L (21-32); CHLORIDE 95 MMOL/L (98-107); CREATININE 3.8 MG/DL (0.55-1.30); PHOSPHORUS 5.1 MG/DL (2.5-4.9); POTASSIUM 3.3 MMOL/L (3.5-5.1); SODIUM 139 MMOL/L (136-145)
[2019-08-02 06:16] LABS: ALANINE AMINOTRANSFERASE 17 U/L (12-78); ALBUMIN 4.1 G/DL (3.4-5.0); ALBUMIN/GLOBULIN RATIO 1.1 (1.0-2.7); ALKALINE PHOSPHATASE 75 U/L (46-116); ANION GAP 14 mmol/L (5-15); ASPARTATE AMINO TRANSFERASE 22 U/L (15-37); BILIRUBIN,TOTAL 0.4 MG/DL (0.2-1.0); BLOOD UREA NITROGEN 72 mg/dL (7-18); CALCIUM 9.9 MG/DL (8.5-10.1); CARBON DIOXIDE 30 MMOL/L (21-32); CHLORIDE 95 MMOL/L (98-107); CREATININE 3.8 MG/DL (0.55-1.30); POTASSIUM 3.3 MMOL/L (3.5-5.1); SODIUM 139 MMOL/L (136-145)
--- NOTE | 2019-08-02 07:42 | NUR ---
HAND-OFF: Report given to HYUN Shanks. Patient is asleep lying semi-mei's; resting comfortably. Nepro running at 38 mls/hr. Sanchez catheter in place. In stable condition.
--- NOTE | 2019-08-02 07:42 | NUR ---
NURSE NOTES: Nurse report given by HYUN Reyna. Patient's awake and sitting bed, semi-mei position, AO x 0, eyes open spontaneously, but eyes accommodation not present. Bed low and locked, call light within reach, side rails x 3. IV is saline locked, patent and asymptomatic. Tube feeding present, running Nepro, flushed well, 10cc residuals presents. Wounds assessment performed, multiple concerned areas noted and observed. Will continue to monitor.
--- NOTE | 2019-08-02 07:42 | NUR ---
NURSE NOTES: Rectal Tube noted, draining well, moderate stool present.
[2019-08-02 08:00] VITALS: BP 130/67
--- NOTE | 2019-08-02 08:51 | Urology Progress Note ---
Assessment/Plan Status: stable Assessment/Plan: 1. Hematuria, which was previously gross and now microscopic. 2. End-stage renal disease, on hemodialysis. 3. Urinary retention history, now with incontinence. 4. Probable neurogenic bladder. 5. Pyuria. 6. Proteinuria. 7. History of acute kidney injury. 9. Nephrolithiasis. 8. Sepsis? monitor clinically abx as ordered, micafungin, per ID hargrove now indwelling hand irrigated and do PRN cysto later HD per carpet mechanic d/w primary service Subjective Allergies: Coded Allergies: No Known Allergies (Unverified , 06/24/19) Subjective all noted, hargrove indwelling, some mild bleeding reported Objective Last 24 Hour Vital Signs Date Time Temp Pulse Resp B/P (MAP) Pulse Ox O2 Delivery O2 Flow Rate FiO2 08/02/19 04:00 97.7 96 20 141/69 (93) 100 08/02/19 04:00 94 08/02/19 00:00 96 08/02/19 00:00 97.9 95 20 126/65 (85) 95 08/01/19 22:03 101 134/68 08/01/19 21:00 Nasal Cannula 2.0 08/01/19 20:00 97.9 101 20 134/68 (90) 100 08/01/19 20:00 104 08/01/19 16:00 114 08/01/19 16:00 98.2 115 22 102/57 (72) 100 08/01/19 12:00 94 08/01/19 12:00 98.4 95 22 101/59 (73) 100 08/01/19 10:22 103 138/74 08/01/19 09:00 Nasal Cannula 2.0 Intake and Output 08/01/19 08/02/19 19:00 07:00 Intake Total 188 ml 764.6 ml Output Total 1100 ml Balance -912 ml 764.6 ml Free Water 100 ml 200 ml IV Total 108.6 ml Tube Feeding 88 ml 456 ml Output Urine Total 1100 ml Microbiology Date/Time Source Procedure Growth Status 07/26/19 15:00 Blood Blood Culture - Final NO GROWTH AFTER 5 DAYS Complete 07/20/19 04:30 Sputum Induced Gram Stain - Final Complete 07/20/19 04:30 Sputum Culture - Final Pseudomonas Aeruginosa Melanie Albicans Usual Respiratory Cristina Complete 07/28/19 03:50 Stool Clostridium difficile Toxin Assay - Final Complete 07/27/19 11:20 Indwelling Cath Urine Culture - Final Melanie Albicans Complete 07/20/19 13:18 Catheter Site Catheter Tip Culture - Final NO GROWTH AFTER 4 DAYS Complete Current Medications Medications (Trade) Dose Ordered Sig/Joan Route PRN Reason Start Time Stop Time Status Last Admin Dose Admin Acetaminophen (Tylenol) 650 mg Q4H PRN ORAL Mild Pain (Pain Scale 1-3) 07/14/19 14:45 08/13/19 14:44 08/02/19 03:00 Amikacin Protocol (Amikacin pharmacy to dose) 1 ea DAILY PRN MISC Per rx protocol 07/27/19 16:30 08/26/19 16:29 Atorvastatin Calcium (Lipitor) 10 mg QHS GT 07/14/19 21:00 10/12/19 20:59 08/01/19 22:04 Carvedilol (Coreg) 6.25 mg EVERY 12 HOURS ORAL 07/30/19 21:00 08/18/19 08:59 08/01/19 22:03 Chlorhexidine Gluconate (Cari-Hex 2%) 1 applic DAILY@2000 TOPIC 07/15/19 20:00 10/13/19 19:59 08/01/19 22:04 Dextrose (Dextrose 50%) 25 ml Q30M PRN IV Hypoglycemia 07/14/19 14:45 10/12/19 14:44 Dextrose (Dextrose 50%) 50 ml Q30M PRN IV Hypoglycemia 07/14/19 14:45 10/12/19 14:44 Epoetin Dion (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)) 6,000 unit MON-MON-MON SUBQ 08/02/19 21:00 10/22/19 20:59 Heparin Sodium (Porcine) (Heparin 5000 units/ml) 5,000 units EVERY 12 HOURS SUBQ 07/14/19 21:00 08/28/19 20:59 08/01/19 22:06 Hydralazine HCl (Apresoline) 10 mg Q4H PRN IV For High Blood Pressure 07/14/19 15:30 10/12/19 15:29 Lactobacillus Acidophilus (Culturelle) 1 tab Q12HR GT 07/15/19 12:14 10/13/19 12:13 08/01/19 22:03 Loperamide HCl (Imodium) 2 mg Q6H PRN NG Diarrhea 07/18/19 09:00 08/17/19 08:59 07/31/19 10:22 Micafungin Sodium 100 mg/Sodium Chloride 110 ml @ 110 mls/hr Q24H IVPB 07/28/19 12:00 08/04/19 11:59 08/01/19 12:53 Ondansetron HCl (Zofran) 4 mg Q6H PRN IVP Nausea & Vomiting 07/14/19 14:45 08/13/19 14:44 Piperacillin Sod/ Tazobactam Sod 3.375 gm/Dextrose 110 ml @ 27.5 mls/hr EVERY 12 HOURS IVPB 07/31/19 21:00 08/05/19 20:59 08/01/19 22:03 Tramadol HCl (Ultram) 25 mg Q6H PRN ORAL For Pain 07/28/19 12:30 08/04/19 12:29 07/30/19 21:44 Vancomycin HCl (Vanco rx to dose) 1 ea DAILY PRN MISC Per rx protocol 07/27/19 16:30 08/26/19 16:29 Laboratory Tests 08/02/19 04:15: White Blood Count 14.1H, Red Blood Count 2.80L, Hemoglobin 8.1L, Hematocrit 25.1L, Mean Corpuscular Volume 90, Mean Corpuscular Hemoglobin 28.9, Mean Corpuscular Hemoglobin Concent 32.2, Red Cell Distribution Width 12.7, Platelet Count 376, Mean Platelet Volume 7.7, Neutrophils (%) (Auto) 67.4, Lymphocytes (% ) (Auto) 20.2, Monocytes (%) (Auto) 10.3H, Eosinophils (%) (Auto) 1.4, Basophils (%) (Auto) 0.7, Sodium Level 139, Potassium Level 3.3L, Chloride Level 95L, Carbon Dioxide Level 30, Anion Gap 14, Blood Urea Nitrogen 72H, Creatinine 3.8H, Estimat Glomerular Filtration Rate 13.6, Glucose Level 124H, Calcium Level 10.0, Phosphorus Level 5.1H, Magnesium Level 2.5H, Total Bilirubin 0.4, Aspartate Amino Transf (AST/SGOT) 22, Alanine Aminotransferase ( ALT/SGPT) 17, Alkaline Phosphatase 75, Total Protein 7.7, Albumin 4.1, Globulin 3.6, Albumin/Globulin Ratio 1.1, Random Vancomycin Level 26.7 Height (Feet): 5 Height (Inches): 3.00 Weight (Pounds): 132 Objective exam stable hargrove indwelling with scant neal urine, some debris CT A/P (07/18) noted Omar Mckoy MD Aug 02, 2019 08:51
[2019-08-02] MEDS: Lactobacillus-GG tablet GT SCH (09:00)
[2019-08-02] MEDS: Heparin 5000 units/ml inj SUBQ SCH ×2 (09:00→09:37)
--- NOTE | 2019-08-02 09:12 | General Progress Note ---
Assessment/Plan Status: stable Assessment/Plan: 1. End-stage renal disease, on hemodialysis. 2. Anemia. 3. Dysphagia, status post G-tube placement. 4. Pneumonia. 5. Pancreatic cyst. 6. Hypertension. 7. Diarrhea 8. Leukocytosis C.diff>> neg imodium prn GTF abx per ID HD per nephrology repeal labs in am transfuse if hgb drops below 7 fu urology for hematuria pending placement Subjective ROS Limited/Unobtainable: No Allergies: Coded Allergies: No Known Allergies (Unverified , 06/24/19) Objective Last 24 Hour Vital Signs Date Time Temp Pulse Resp B/P (MAP) Pulse Ox O2 Delivery O2 Flow Rate FiO2 08/02/19 04:00 97.7 96 20 141/69 (93) 100 08/02/19 04:00 94 08/02/19 00:00 96 08/02/19 00:00 97.9 95 20 126/65 (85) 95 08/01/19 22:03 101 134/68 08/01/19 21:00 Nasal Cannula 2.0 08/01/19 20:00 97.9 101 20 134/68 (90) 100 08/01/19 20:00 104 08/01/19 16:00 114 08/01/19 16:00 98.2 115 22 102/57 (72) 100 08/01/19 12:00 94 08/01/19 12:00 98.4 95 22 101/59 (73) 100 08/01/19 10:22 103 138/74 Intake and Output 08/01/19 08/02/19 19:00 07:00 Intake Total 188 ml 764.6 ml Output Total 1100 ml Balance -912 ml 764.6 ml Free Water 100 ml 200 ml IV Total 108.6 ml Tube Feeding 88 ml 456 ml Output Urine Total 1100 ml Laboratory Tests 08/02/19 04:15: White Blood Count 14.1H, Red Blood Count 2.80L, Hemoglobin 8.1L, Hematocrit 25.1L, Mean Corpuscular Volume 90, Mean Corpuscular Hemoglobin 28.9, Mean Corpuscular Hemoglobin Concent 32.2, Red Cell Distribution Width 12.7, Platelet Count 376, Mean Platelet Volume 7.7, Neutrophils (%) (Auto) 67.4, Lymphocytes (% ) (Auto) 20.2, Monocytes (%) (Auto) 10.3H, Eosinophils (%) (Auto) 1.4, Basophils (%) (Auto) 0.7, Sodium Level 139, Potassium Level 3.3L, Chloride Level 95L, Carbon Dioxide Level 30, Anion Gap 14, Blood Urea Nitrogen 72H, Creatinine 3.8H, Estimat Glomerular Filtration Rate 13.6, Glucose Level 124H, Calcium Level 10.0, Phosphorus Level 5.1H, Magnesium Level 2.5H, Total Bilirubin 0.4, Aspartate Amino Transf (AST/SGOT) 22, Alanine Aminotransferase ( ALT/SGPT) 17, Alkaline Phosphatase 75, Total Protein 7.7, Albumin 4.1, Globulin 3.6, Albumin/Globulin Ratio 1.1, Random Vancomycin Level 26.7 Height (Feet): 5 Height (Inches): 3.00 Weight (Pounds): 132 General Appearance: alert EENT: normal ENT inspection Neck: supple Cardiovascular: normal rate Respiratory/Chest: decreased breath sounds Abdomen: normal bowel sounds, non tender, soft Extremities: non-tender Jun Mena MD Aug 02, 2019 09:12
[2019-08-02] MEDS: traMADol 50mg tab ORAL PRN (09:30)
--- NOTE | 2019-08-02 09:30 | NUR ---
NURSE NOTES: Spoke to Dr. Redd regarding patient's potassium is 3.3. MD aware, no new order. Will continue to monitor.
--- NOTE | 2019-08-02 09:30 | NUR ---
NURSE NOTES: Spoke with Eduin, Dialysis nurse, she confirmed to have dialysis today. ETA to be determined. Will keep updated.
[2019-08-02] MEDS: Piperacillin/Tazobactam 3.375 GM in D5W 110 ML IVPB SCH (09:31)
[2019-08-02] MEDS: Carvedilol 6.25mg Tab ORAL SCH (09:31)
--- NOTE | 2019-08-02 10:39 | NUR ---
DISCHARGE PLANNING WE ARE CURRENTLY WAITING FOR [facility] TO ACCEPT THIS PATIENT BACK TO THEIR FACILITY. [facility] IS CURRENTLY ON LOCK DOWN BY THE HEALTH DEPARTMENT SO THEY HAVE TO OBTAIN PERMISSION FROM THE HEALTH DEPARTMENT TO ACCEPT THEIR PATIENT BACK. ONCE WE HAVE HAVE A BED WE WILL LET NURSING KNOW AND ARRANGE TRANSPORTATION Addendum: 08/02/19 at 1215 by MANSI PRICE LVN LVN STILL WAITING FOR RESPONSE FROM JEREMIAH AT [facility] LEFT HIM A MESSAGE ASKING IF PATIENT COULD POSSIBLY BE PLACED AT [facility]
[2019-08-02 12:00] VITALS: BP_SYST 95; BP_SYST 96; BP_DIAS 48; BP_DIAS 53
[2019-08-02] MEDS: Micafungin 100 MG in NS 110 ML IVPB SCH (12:30)
--- NOTE | 2019-08-02 12:32 | Nephrology Progress Note ---
Assessment/Plan Plan #Acute renal failure recent started on HD in 06/2018- #Sepsis #Dementia #HTN #elevated troponin #Dysphagia s/p PEG #urinary retention - permacath 07/29 - plan for HD today - monitor UOP - monitor BMP closeric - agree with FWF 100 q6 - continue lasix 80 IV daily -> switch to oral on DC - cardiology eval - monitor UOP---> increasing - urology eval - continue antibiotics per ID - coreg 3.125mg BID - follow repeat blood cx- growing pseudomonas - check iron panel, ferritin-> ferritin supersaturated - continue epogen 4K TIW - monitor BMP, mag and phos daily for now Subjective Subjective plan for HD today UOP 1100? BP stable breathing stable on NC Objective Objective Last 24 Hour Vital Signs Date Time Temp Pulse Resp B/P (MAP) Pulse Ox O2 Delivery O2 Flow Rate FiO2 08/02/19 10:00 97.7 08/02/19 09:31 110 130/67 08/02/19 09:00 102 08/02/19 09:00 Nasal Cannula 2.0 08/02/19 08:00 97.9 110 20 130/67 (88) 100 08/02/19 04:00 97.7 96 20 141/69 (93) 100 08/02/19 04:00 94 08/02/19 00:00 96 08/02/19 00:00 97.9 95 20 126/65 (85) 95 08/01/19 22:03 101 134/68 08/01/19 21:00 Nasal Cannula 2.0 08/01/19 20:00 97.9 101 20 134/68 (90) 100 08/01/19 20:00 104 08/01/19 16:00 114 08/01/19 16:00 98.2 115 22 102/57 (72) 100 Intake and Output 08/01/19 08/02/19 19:00 07:00 Intake Total 188 ml 764.6 ml Output Total 1100 ml Balance -912 ml 764.6 ml Free Water 100 ml 200 ml IV Total 108.6 ml Tube Feeding 88 ml 456 ml Output Urine Total 1100 ml Laboratory Tests 08/02/19 04:15: White Blood Count 14.1H, Red Blood Count 2.80L, Hemoglobin 8.1L, Hematocrit 25.1L, Mean Corpuscular Volume 90, Mean Corpuscular Hemoglobin 28.9, Mean Corpuscular Hemoglobin Concent 32.2, Red Cell Distribution Width 12.7, Platelet Count 376, Mean Platelet Volume 7.7, Neutrophils (%) (Auto) 67.4, Lymphocytes (% ) (Auto) 20.2, Monocytes (%) (Auto) 10.3H, Eosinophils (%) (Auto) 1.4, Basophils (%) (Auto) 0.7, Sodium Level 139, Potassium Level 3.3L, Chloride Level 95L, Carbon Dioxide Level 30, Anion Gap 14, Blood Urea Nitrogen 72H, Creatinine 3.8H, Estimat Glomerular Filtration Rate 13.6, Glucose Level 124H, Calcium Level 10.0, Phosphorus Level 5.1H, Magnesium Level 2.5H, Total Bilirubin 0.4, Aspartate Amino Transf (AST/SGOT) 22, Alanine Aminotransferase ( ALT/SGPT) 17, Alkaline Phosphatase 75, Total Protein 7.7, Albumin 4.1, Globulin 3.6, Albumin/Globulin Ratio 1.1, Random Vancomycin Level 26.7 Height (Feet): 5 Height (Inches): 3.00 Weight (Pounds): 132 Objective General: NAD, A&O x 1, self only HEENT: NCAT, EOMi, PEERLA, nares patent and no symmetrical, no tonsillar exudates, mucous membranes moist CV: RRR, no murmurs, rubs, or gallops Pulm: CTAB, No wheezes, rhonchi, or rales, no accessory muscle usage or conversational dyspnea GI: Soft, nontender, nondistended, bowel sounds present, PEG tube in place, C/D/ I Neuro: CN 2-12 grossly intact bilaterally, no focal signs. Ext: No lower extremity edema bilaterally, LE contracted bilaterally Skin: Multiple pressure ulcers noted on hip/heels Lymph: No lymphadenopathy in upper extremity and lower extremity Rory Oconnor M.D. Aug 02, 2019 12:32
--- NOTE | 2019-08-02 13:19 | Cardiac Electrophysiology PN ---
Assessment/Plan Assessment/Plan 1. Sinus Tachycardia due to sepsis . WBC up again from 12K to 13 and 14. On Coreg 6.25 mg b.i.d. and IV antibiotic 2. Hypertension. On Coreg to 6.26 mg b.i.d. 3. Troponin leak and history of CAD and prior NSTEMI. Likely due to renal failure. EKG SR with LVH. Echo EF 65%. 4. End-stage renal disease, now on hemodialysis. Has new Perm Cath. 5. Pneumonia, fever and sepsis. COVID-19 was ruled out. Antibiotics per Dr Lynn 6. Dysphagia, status post G-tube placement. GALLO RN Subjective Subjective Had PermCath in R chest.Pending HD today. R femoral Aman was removed. Awaiting placement back to [facility] Objective Last 24 Hour Vital Signs Date Time Temp Pulse Resp B/P (MAP) Pulse Ox O2 Delivery O2 Flow Rate FiO2 08/02/19 10:00 97.7 08/02/19 09:31 110 130/67 08/02/19 09:00 102 08/02/19 09:00 Nasal Cannula 2.0 08/02/19 08:00 97.9 110 20 130/67 (88) 100 08/02/19 04:00 97.7 96 20 141/69 (93) 100 08/02/19 04:00 94 08/02/19 00:00 96 08/02/19 00:00 97.9 95 20 126/65 (85) 95 08/01/19 22:03 101 134/68 08/01/19 21:00 Nasal Cannula 2.0 08/01/19 20:00 97.9 101 20 134/68 (90) 100 08/01/19 20:00 104 08/01/19 16:00 114 08/01/19 16:00 98.2 115 22 102/57 (72) 100 Intake and Output 08/01/19 08/02/19 19:00 07:00 Intake Total 188 ml 764.6 ml Output Total 1100 ml Balance -912 ml 764.6 ml Free Water 100 ml 200 ml IV Total 108.6 ml Tube Feeding 88 ml 456 ml Output Urine Total 1100 ml Laboratory Tests Test 08/02/19 04:15 White Blood Count 14.1 K/UL (4.8-10.8) H Red Blood Count 2.80 M/UL (4.20-5.40) L Hemoglobin 8.1 G/DL (12.0-16.0) L Hematocrit 25.1 % (37.0-47.0) L Mean Corpuscular Volume 90 FL (80-99) Mean Corpuscular Hemoglobin 28.9 PG (27.0-31.0) Mean Corpuscular Hemoglobin Concent 32.2 G/DL (32.0-36.0) Red Cell Distribution Width 12.7 % (11.6-14.8) Platelet Count 376 K/UL (150-450) Mean Platelet Volume 7.7 FL (6.5-10.1) Neutrophils (%) (Auto) 67.4 % (45.0-75.0) Lymphocytes (%) (Auto) 20.2 % (20.0-45.0) Monocytes (%) (Auto) 10.3 % (1.0-10.0) H Eosinophils (%) (Auto) 1.4 % (0.0-3.0) Basophils (%) (Auto) 0.7 % (0.0-2.0) Sodium Level 139 MMOL/L (136-145) Potassium Level 3.3 MMOL/L (3.5-5.1) L Chloride Level 95 MMOL/L (98-107) L Carbon Dioxide Level 30 MMOL/L (21-32) Anion Gap 14 mmol/L (5-15) Blood Urea Nitrogen 72 mg/dL (7-18) H Creatinine 3.8 MG/DL (0.55-1.30) H Estimat Glomerular Filtration Rate 13.6 mL/min (>60) Glucose Level 124 MG/DL (74-106) H Calcium Level 10.0 MG/DL (8.5-10.1) Phosphorus Level 5.1 MG/DL (2.5-4.9) H Magnesium Level 2.5 MG/DL (1.8-2.4) H Total Bilirubin 0.4 MG/DL (0.2-1.0) Aspartate Amino Transf (AST/SGOT) 22 U/L (15-37) Alanine Aminotransferase (ALT/SGPT) 17 U/L (12-78) Alkaline Phosphatase 75 U/L (46-116) Total Protein 7.7 G/DL (6.4-8.2) Albumin 4.1 G/DL (3.4-5.0) Globulin 3.6 g/dL Albumin/Globulin Ratio 1.1 (1.0-2.7) Random Vancomycin Level 26.7 ug/mL Objective HEAD AND NECK: No JVD. LUNGS: Coarse rhonchi.Right chest PermCath CARDIOVASCULAR: Tachy S1 and S2 with no murmur ABDOMEN: Soft. EXTREMITIES: No pitting edema.Contracted. Cristopher Osman MD Aug 02, 2019 13:19
--- NOTE | 2019-08-02 15:00 | NUR ---
NURSE NOTES: Patient's permacath site was bleeding. Dressing changed removed. Notified MD Redd. No new order at this time. Will continue to monitor.
--- NOTE | 2019-08-02 15:24 | NUR ---
*-*DISCHARGE PLANNED*-* PATIENT HAS BEEN ACCEPTED AND WILL BE DISCHARGED BACK TO: [facility] P: [phone] FOR NURSE TO NURSE REPORT ROOM# 11.[facility] TRANSPORTATION SET FOR 4PM S/W MIKEY [id number]. S/W PATIENTS KAUR BEAL, WHO IS IN AGREEMENT WITH DISCHARGE AND TRANSPORTATION. Addendum: 08/02/19 at 1532 by ETTA DE ANDA CM *-*DISCHARGE PLANNED*-* PATIENT HAS BEEN ACCEPTED AND WILL BE DISCHARGED BACK TO: [facility] P: [phone] FOR NURSE TO NURSE REPORT ROOM# 9.[facility] TRANSPORTATION SET FOR 4PM S/W MIKEY [id number]. S/W PATIENTS KAUR BEAL, WHO IS IN AGREEMENT WITH DISCHARGE AND TRANSPORTATION.
--- NOTE | 2019-08-02 15:56 | Infectious Diseases Prog Note ---
Assessment/Plan Assessment/Plan ASSESSMENT AND PLAN: 1. sepsis, fevers, leukocytosis, ? pna, diarrhea, covid-19 test negative, ? right hip wound infection pseudomonas bacteremia/line infection, pseudomonas pna leukocytosis worse - ? etiology fungemia risk, uti - + ua noted - zosyn, amikacin, vancomycin, micafungin x 3 days - s/p permanent HD catheter - wound care per surgery and protocol - monitor labs - blood culture negative, f/u on urine culture - monitor chest x-ray - leukocytosis better overall 2. The patient has end-stage renal disease, on hemodialysis - temporary HD line now 3. Skin care protocol. 4. Anemia. 5. The patient has history of dysphagia, on G-tube. 6. Aspiration risk. 7. Hypertension. 8. Altered mental status. 9. History of Strep viridans bacteremia. 10. Hypertension, treatment per primary care team. 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 12. History of non-STEMI and CAD. 13. History of rhabdomyolysis. 14. History of acute renal failure, on dialysis. 15. Coronary artery disease. 16. No known drug allergies. 17. Social history negative. 18. Family history noncontributory. 19. MAR was noted. 20. Case discussed with RN. 21. Isolation in the acute care. 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 Subjective Constitutional: Denies: fever HEENT: Denies: congestion Respiratory: Denies: shortness of breath Cardiovascular: Denies: chest pain Gastrointestinal/Abdominal: Reports: diarrhea, other - + rectal tube ; Denies: nausea, vomiting Genitourinary: Reports: other - no hargrove seen Neurologic: Reports: weakness, other - opens eyes Psychiatric: Reports: other - NA Skin: Denies: rash Hematologic: Denies: bleeding Musculoskeletal: Reports: other - NA Allergies: Coded Allergies: No Known Allergies (Unverified , 06/24/19) Objective Vital Signs Last 24 Hour Vital Signs Date Time Temp Pulse Resp B/P (MAP) Pulse Ox O2 Delivery O2 Flow Rate FiO2 08/02/19 12:00 98.1 86 20 95/53 (67) 100 08/02/19 10:00 97.7 08/02/19 09:31 110 130/67 08/02/19 09:00 102 08/02/19 09:00 Nasal Cannula 2.0 4/10/20 08:00 97.9 110 20 130/67 (88) 100 08/02/19 04:00 97.7 96 20 141/69 (93) 100 08/02/19 04:00 94 08/02/19 00:00 96 08/02/19 00:00 97.9 95 20 126/65 (85) 95 08/01/19 22:03 101 134/68 08/01/19 21:00 Nasal Cannula 2.0 08/01/19 20:00 97.9 101 20 134/68 (90) 100 08/01/19 20:00 104 08/01/19 16:00 114 08/01/19 16:00 98.2 115 22 102/57 (72) 100 Height (Feet): 5 Height (Inches): 3.00 Weight (Pounds): 132 General Appearance: no acute distress HEENT: normocephalic, atraumatic, anicteric Respiratory/Chest: crackles/rales, rhonchi - bilaterally, rhonchi - left Cardiovascular: normal rate, regular rhythm, no gallop/murmur, no JVD Abdomen: normal bowel sounds, soft, non tender, no organomegaly, non distended Genitourinary: other - no hargrove seen Extremities: no cyanosis Skin: no rash Neurologic/Psychiatric: sifter and miller 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 normal, alert, responsive Lymphatic: no neck adenopathy Musculoskeletal: no effusion Objective Chest - 07/16/19 - Procedure: XRAY Chest 1v Indication: Dyspnea Comparison: 07/14/2019 A single view chest radiograph was obtained. Findings: Pulmonary vessel congestion noted. Heart is enlarged. Interstitial edema is mild. Bones are osteopenic. IMPRESSION: Mild interstitial edema Chest x-ray - 07/19/19 - Impression: Worsening of aeration with increasing haziness of the pulmonary vascularity and development of hazy perihilar airspace opacities. Findings likely related to fluid overload/CHF. Superimposed infection however not excluded. Clinical correlation and follow-up recommended. CT scan of abdomen and pelvis: IMPRESSION: Limited exam without intravenous contrast. Within these limitations: * Patchy opacities in the lung bases, left greater than right. Findings may related to subsegmental atelectasis. Possibility of pneumonia however not excluded. * Extensive coronary arterial calcifications. * Dialysis catheter partially visualized. * Indwelling gastrostomy and rectal tubes. * No intraabdominal fluid collection/abscess. * Interval removal of Hargrove catheter. Bladder is mildly distended but otherwise unremarkable. * Extensive atherosclerotic vascular calcifications. * Irregularity the skin overlying the inferior aspect of the sacrum. Correlate clinically to exclude the possibility of sacral decubitus ulcer. No subcutaneous fluid collection/abscess. * Osteopenia and severe degenerative changes of the spine with unchanged vertebral body compression deformities. * 1.5 cm cystic l Chest x-ray - 07/22/19 - Procedure: XRAY Chest 1v Indication: Dyspnea Comparison: 07/19/2019 A single view chest radiograph was obtained. Findings: No definite infiltrate or pulmonary vascular congestion identified. Right permacath was removed. The heart is enlarged. The aorta is mildly enlarged consistent with atherosclerotic vascular disease. The bones are osteopenic. There are thoracic vertebral enthesophytes at multiple levels. Chest x-ray - 07/28/19 - Impression: COMPARISON: Chest x-rays dated 07/14/19, 07/06/19, 07/01/19. FINDINGS: Lungs: Mild pulmonary vascular congestion, improved compared to the prior exam. No new focal consolidation. Pleural space: Unremarkable. The costophrenic angles are sharp. No visible pneumothorax. Heart: Unremarkable. No cardiomegaly. Mediastinum: Unremarkable. Bones/joints: Unremarkable. Vasculature: Atherosclerotic calcifications are noted within the aortic arch. Tubes, lines and devices: Interval removal of the right IJ central venous catheter. Telemetry leads overlie the thorax. IMPRESSION: Mild pulmonary vascular congestion, improved compared to the prior exam. No acute disease Microbiology Date/Time Source Procedure Growth Status 07/26/19 15:00 Blood Blood Culture - Final NO GROWTH AFTER 5 DAYS Complete 07/20/19 04:30 Sputum Induced Gram Stain - Final Complete 07/20/19 04:30 Sputum Culture - Final Pseudomonas Aeruginosa Melanie Albicans Usual Respiratory Cristina Complete 07/28/19 03:50 Stool Clostridium difficile Toxin Assay - Final Complete 07/27/19 11:20 Indwelling Cath Urine Culture - Final Melanie Albicans Complete 07/20/19 13:18 Catheter Site Catheter Tip Culture - Final NO GROWTH AFTER 4 DAYS Complete Laboratory Tests Test 08/02/19 04:15 White Blood Count 14.1 K/UL (4.8-10.8) H Red Blood Count 2.80 M/UL (4.20-5.40) L Hemoglobin 8.1 G/DL (12.0-16.0) L Hematocrit 25.1 % (37.0-47.0) L Mean Corpuscular Volume 90 FL (80-99) Mean Corpuscular Hemoglobin 28.9 PG (27.0-31.0) Mean Corpuscular Hemoglobin Concent 32.2 G/DL (32.0-36.0) Red Cell Distribution Width 12.7 % (11.6-14.8) Platelet Count 376 K/UL (150-450) Mean Platelet Volume 7.7 FL (6.5-10.1) Neutrophils (%) (Auto) 67.4 % (45.0-75.0) Lymphocytes (%) (Auto) 20.2 % (20.0-45.0) Monocytes (%) (Auto) 10.3 % (1.0-10.0) H Eosinophils (%) (Auto) 1.4 % (0.0-3.0) Basophils (%) (Auto) 0.7 % (0.0-2.0) Sodium Level 139 MMOL/L (136-145) Potassium Level 3.3 MMOL/L (3.5-5.1) L Chloride Level 95 MMOL/L (98-107) L Carbon Dioxide Level 30 MMOL/L (21-32) Anion Gap 14 mmol/L (5-15) Blood Urea Nitrogen 72 mg/dL (7-18) H Creatinine 3.8 MG/DL (0.55-1.30) H Estimat Glomerular Filtration Rate 13.6 mL/min (>60) Glucose Level 124 MG/DL (74-106) H Calcium Level 10.0 MG/DL (8.5-10.1) Phosphorus Level 5.1 MG/DL (2.5-4.9) H Magnesium Level 2.5 MG/DL (1.8-2.4) H Total Bilirubin 0.4 MG/DL (0.2-1.0) Aspartate Amino Transf (AST/SGOT) 22 U/L (15-37) Alanine Aminotransferase (ALT/SGPT) 17 U/L (12-78) Alkaline Phosphatase 75 U/L (46-116) Total Protein 7.7 G/DL (6.4-8.2) Albumin 4.1 G/DL (3.4-5.0) Globulin 3.6 g/dL Albumin/Globulin Ratio 1.1 (1.0-2.7) Random Vancomycin Level 26.7 ug/mL Current Medications Medications (Trade) Dose Ordered Sig/Joan Route PRN Reason Start Time Stop Time Status Last Admin Dose Admin Acetaminophen (Tylenol) 650 mg Q4H PRN ORAL Mild Pain (Pain Scale 1-3) 07/14/19 14:45 08/13/19 14:44 08/02/19 03:00 Amikacin Protocol (Amikacin pharmacy to dose) 1 ea DAILY PRN MISC Per rx protocol 07/27/19 16:30 08/26/19 16:29 Atorvastatin Calcium (Lipitor) 10 mg QHS GT 07/14/19 21:00 10/12/19 20:59 08/01/19 22:04 Carvedilol (Coreg) 6.25 mg EVERY 12 HOURS ORAL 07/30/19 21:00 08/18/19 08:59 08/02/19 09:31 Chlorhexidine Gluconate (Cari-Hex 2%) 1 applic DAILY@1999 TOPIC 07/15/19 20:00 10/13/19 19:59 08/01/19 22:04 Dextrose (Dextrose 50%) 25 ml Q30M PRN IV Hypoglycemia 07/14/19 14:45 10/12/19 14:44 Dextrose (Dextrose 50%) 50 ml Q30M PRN IV Hypoglycemia 07/14/19 14:45 10/12/19 14:44 Epoetin Idon (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)) 6,000 unit MON-MON-MON SUBQ 08/02/19 21:00 10/22/19 20:59 Heparin Sodium (Porcine) (Heparin 5000 units/ml) 5,000 units EVERY 12 HOURS SUBQ 07/14/19 21:00 08/28/19 20:59 08/01/19 22:06 Hydralazine HCl (Apresoline) 10 mg Q4H PRN IV For High Blood Pressure 07/14/19 15:30 10/12/19 15:29 Lactobacillus Acidophilus (Culturelle) 1 tab Q12HR GT 07/15/19 12:14 10/13/19 12:13 08/02/19 09:00 Loperamide HCl (Imodium) 2 mg Q6H PRN NG Diarrhea 07/18/19 09:00 08/17/19 08:59 07/31/19 10:22 Micafungin Sodium 100 mg/Sodium Chloride 110 ml @ 110 mls/hr Q24H IVPB 07/28/19 12:00 08/04/19 11:59 08/02/19 12:30 Ondansetron HCl (Zofran) 4 mg Q6H PRN IVP Nausea & Vomiting 07/14/19 14:45 08/13/19 14:44 Piperacillin Sod/ Tazobactam Sod 3.375 gm/Dextrose 110 ml @ 27.5 mls/hr EVERY 12 HOURS IVPB 07/31/19 21:00 08/05/19 20:59 08/02/19 09:31 Tramadol HCl (Ultram) 25 mg Q6H PRN ORAL For Pain 07/28/19 12:30 08/04/19 12:29 08/02/19 09:30 Vancomycin HCl (Vanco rx to dose) 1 ea DAILY PRN MISC Per rx protocol 07/27/19 16:30 08/26/19 16:29 Ana Rosado MD Aug 02, 2019 15:56
[2019-08-02 16:00] VITALS: BP 96/48
--- NOTE | 2019-08-02 16:00 | NUR ---
NURSE NOTES: Patient received dialysis. 1L removed. Patient tolerated well.
--- NOTE | 2019-08-02 16:02 | Surgery Progress Note ---
Surgery Progress Note Subjective Procedure Performed Excisional debridement of stage IV right trochanter decubitus ulcer eschar and necrotic slough 8 cm x 14 cm x 4 cm deep Additional Comments persistent leukocytosis exam stable dressings going well inevitable decline unfortunately Objective Last 24 Hour Vital Signs Date Time Temp Pulse Resp B/P (MAP) Pulse Ox O2 Delivery O2 Flow Rate FiO2 08/02/19 12:00 98.1 86 20 95/53 (67) 100 08/02/19 10:00 97.7 08/02/19 09:31 110 130/67 08/02/19 09:00 102 08/02/19 09:00 Nasal Cannula 2.0 08/02/19 08:00 97.9 110 20 130/67 (88) 100 08/02/19 04:00 97.7 96 20 141/69 (93) 100 08/02/19 04:00 94 08/02/19 00:00 96 08/02/19 00:00 97.9 95 20 126/65 (85) 95 08/01/19 22:03 101 134/68 08/01/19 21:00 Nasal Cannula 2.0 08/01/19 20:00 97.9 101 20 134/68 (90) 100 08/01/19 20:00 104 I&O Intake and Output 08/01/19 08/02/19 19:00 07:00 Intake Total 188 ml 764.6 ml Output Total 1100 ml Balance -912 ml 764.6 ml Free Water 100 ml 200 ml IV Total 108.6 ml Tube Feeding 88 ml 456 ml Output Urine Total 1100 ml Dressing: saturated Wound: other Drains: other Cardiovascular: RSR Respiratory: decreased breath sounds Abdomen: soft, non-tender, present bowel sounds Extremities: edema, no tenderness, no cyanosis Laboratory Tests Test 08/02/19 04:15 White Blood Count 14.1 K/UL (4.8-10.8) H Red Blood Count 2.80 M/UL (4.20-5.40) L Hemoglobin 8.1 G/DL (12.0-16.0) L Hematocrit 25.1 % (37.0-47.0) L Mean Corpuscular Volume 90 FL (80-99) Mean Corpuscular Hemoglobin 28.9 PG (27.0-31.0) Mean Corpuscular Hemoglobin Concent 32.2 G/DL (32.0-36.0) Red Cell Distribution Width 12.7 % (11.6-14.8) Platelet Count 376 K/UL (150-450) Mean Platelet Volume 7.7 FL (6.5-10.1) Neutrophils (%) (Auto) 67.4 % (45.0-75.0) Lymphocytes (%) (Auto) 20.2 % (20.0-45.0) Monocytes (%) (Auto) 10.3 % (1.0-10.0) H Eosinophils (%) (Auto) 1.4 % (0.0-3.0) Basophils (%) (Auto) 0.7 % (0.0-2.0) Sodium Level 139 MMOL/L (136-145) Potassium Level 3.3 MMOL/L (3.5-5.1) L Chloride Level 95 MMOL/L (98-107) L Carbon Dioxide Level 30 MMOL/L (21-32) Anion Gap 14 mmol/L (5-15) Blood Urea Nitrogen 72 mg/dL (7-18) H Creatinine 3.8 MG/DL (0.55-1.30) H Estimat Glomerular Filtration Rate 13.6 mL/min (>60) Glucose Level 124 MG/DL (74-106) H Calcium Level 10.0 MG/DL (8.5-10.1) Phosphorus Level 5.1 MG/DL (2.5-4.9) H Magnesium Level 2.5 MG/DL (1.8-2.4) H Total Bilirubin 0.4 MG/DL (0.2-1.0) Aspartate Amino Transf (AST/SGOT) 22 U/L (15-37) Alanine Aminotransferase (ALT/SGPT) 17 U/L (12-78) Alkaline Phosphatase 75 U/L (46-116) Total Protein 7.7 G/DL (6.4-8.2) Albumin 4.1 G/DL (3.4-5.0) Globulin 3.6 g/dL Albumin/Globulin Ratio 1.1 (1.0-2.7) Random Vancomycin Level 26.7 ug/mL Plan Problems: (1) Decubitus skin ulcer Assessment & Plan: Pt presented on admission with multiple pressure injuries. Unstageable pressure injury R shoulder(L)3.8cm x (W)3.3cm. Base of wound is 100 % necrotic and dry. Marginal erythema along borders. No erythema or induration periwound. Reabsorbed DTPI R Humerus. Base of injury has dry peeling brown skin with underlying dry pink epithelial. R elbow pressure injury has resolved. Full thickness pressure injury R hip (L)7cm x (W)13.1cm. Base of wound is 70% fibrinous slough,10% necrotic ,20% moist pink granulation. Edges are macerated.Small amt seropurulent non-odorous exudate noted. NO erythema , induration or elevation in skin temp periwound. Opened DTPI Sacrum(L)9cm x (W)15cm. Base of wound is purple,indurated with an open wound at sacrococcygeal which has 100% slough(L)1.6cm x (W)1cm. Surrounding Skin hypopigmentation with areas of excoriation extending into perineum and perianal area. Unstageable pressure injury lateral R malleolus(L)2.5cm x (W)3cm. Base of wound is 100% dry necrosis. Edges adherent to base of wound. No erythema induration or fluctuance periwound. Reabsorbing DTPI R heel. Base of Heel is boggy,non-blanching erythema with dry peeling brown skin along edges.(L)4.2cm x (W)6cm. Resolving DTPI distal/lateral R foot. Stable dry brown eschar without fluctuance or induration(L)1cm x (W)1.5cm. Resolving DTPI Lateral R 5th metatarsal.Base of injury is dry,brown without fluctuance or induration.(L)0.6cm x (W)1cm Unstageable pressure injury L Hallux(L)4cm x (W)2.7cm. Base of wound is 80% necrotic,20% slough with marginal erythema along borders. No odor or exudate noted. DTPI L Heel. Base of injury maroon and fluctuant. Periwound is boggy but blanchable(L)5.5cm x (W)6.5cm. Tx.Plan: Cleanse R shoulder with Saline. Apply Therahoney. Apply Cavilon Periwound. Cover with Optifoam drsg. Change every 3 days and prn. Cleanse R hip with Saline. Apply Therahoney.Apply Moisture Barrier Periwound. Cover with Optifoam drsg. Change Daily and prn. Cleanse Sacrum with Saline. Apply Therahoney. Apply Moisture Barrier Paste periwound. Cover with Optifoam drsg. Change every 3 days and prn. Apply Moisture Barrier Paste to perineum and perianal areas with each incontinence care. Apply Betadine to R heel,Distal/lateral R foot ,R5th metatarsal. Cover with Optifoam drsg. Change every 3 days and prn. Apply Betadine to L hallux,and L heel. Cover each site with Optifoam drsg. Change every 3 days and prn. Reposition at least every 2hours or as tolerated. Place pillow between knees. off-load heels with pillow. (2) Fever Assessment & Plan: covid negative discussed with pcp and nephro may need to remove catheter as possible etiology covid negative c diff negative blood cultures from line. if positive will remove after next HD then line holiday blood cx with gram neg d/c line Line removed see note Line holiday new line placed see note cont hd Antibiotics as per infectious disease new permacath placed d/c fem line d/c planning line out doing better wounds deteriorating now debrided cont care plan (3) Protein calorie malnutrition Assessment & Plan: DAILY ESTIMATED NEEDS: Needs based on Wounds, HD 51.8kg 30-35 kcals/kg 8905-9368 total kcals 1.25-1.8 g protein/kg 65-93 g total protein Fluids per MD mL/kg . total fluid mLs NUTRITION DIAGNOSIS: * Increased kcal and prot needs r/t wound healing and renal failure as evidenced by w/ multiple pressure injuries, pending re-evaluation, s/p recent PermCath placement, HD dependent. * Swallowing difficulty R/T dysphagia as evidenced by s/p recent PEG placement, on GT feeding. CURRENT TF:Jevity 1.2 @ 50ml/hr x 24 hrs ENTERAL NUTRITION RECOMMENDATIONS: Nepro @ 38ml/hr x 24 hrs to provide 912ml, 1642kcal, 74g prot, 663ml free water - Rec TF change to Nepro- HD dependent - Initiate Nepro @ 28ml/hr x 6 hrs, increase to goal as tolerated. - HOB over 30 degrees/ water flush per MD ADDITIONAL RECOMMENDATIONS: 1) Calibrated bedscale wt 2) Wound Care: add Nephrovite x 1 add Saw 1ptk BID when TF well tolerated @ goal 3) Check phos and mag levels 4) Monitor BGs, need for nISS 5) Add probiotics: h/o LBM prev adm, prolonged use of abx (4) Pressure ulcer Anshul Nava Aug 02, 2019 16:02
[2019-08-02] MEDS ORDERED: COREG6.25 MG ORAL (16:06)
[2019-08-02] MEDS ORDERED: LIPITOR10 MG GT (16:06)
[2019-08-02] MEDS ORDERED: LOPERAMIDE1 MG/7.5 M NG (16:06)
[2019-08-02] MEDS ORDERED: Amikacin Rx to dose MISC (16:08)
[2019-08-02] MEDS ORDERED: ZOSYN 3.373.375 GM/1 IVPB (16:08)
[2019-08-02] MEDS ORDERED: MYCAMINE100 M1 IVPB (16:08)
--- NOTE | 2019-08-02 16:19 | Discharge Summary ---
Discharge Summary Hospital Course Date of Admission Jul 14, 2019 at 12:41 Date of Discharge 08/01/21 Admitting Diagnosis FEVER, PNEUMONIA HPI Jeanna Gallagher is a 89 year old female who was admitted on Jul 14, 2019 at 12:41 for Fever And Pneumonia Consultations ID,Surgery,Cardiology,Nephrology,Urology Hospital Course 89-year-old female with PMH of acute renal failure, s/p right chest wall permacath on HD, dysphasia s/p PEG, multiple pressure wounds, HTN, h/o AMS was recently discharged from this facility for KAREN/rhabdo, unwitnessed fall, was sent to [facility] and returned here due to fevers. Patient was admitted for persistent fevers and for sepsis/COVID 19 rule out. Patient admitted to the medical service, started on broad spectrum antibiotics for sepsis, diagnosed with pseudomonas pneumonia and bacteremia, Permacath removed 07/19, line tip culture negative, line holiday done and was cleared to have permacath replaced which was done on 07/29. She will be discharged back to [facility] on 3 more days of vanco, amikacin,Zosyn and micafungin as recommended by ID. #Sepsis #Pseudomonas bacteremia #Pseudomonas PNA #leukocytosis #Diarrhea #ESRD on HD -continue inpatient level of care -COVID-19 NEGATIVE -c diff negative (07/16 and 07/25) -Imodium prn -CT abd/pelvis results reviewed -Permacath removed 07/19, line Cx negative -s/p temp cath right femoral 07/22 -07/25 BCx NGTD -CXR 07/27: mild pulmonary congestion, improved compared to previous -ID following: Zosyn, amikacin, vanc, micofungin, will discuss duration of abx with ID in preparation for discharge to SNF soon -S/p permacath placement 07/29, continue HD as per Nephrology #Anemia of chronic dx #Hypernatremia #Hyperkalemia #Hypokalemia #HTN #elevated troponin #BNP elevated #Sinus tachycardia #Hematuria #Possible Urinary retention. #Possible neurogenic bladder. #Dysphagia #Dementia #Pressure wounds Time spent on preparation of discharge was 35 minutes, includes time spent reviewing hospital course, coordinating with RN, employment case manager, consulting MDs Discharge Discharge Vital Signs Last Vital Signs Date Time Temp Pulse Resp B/P (MAP) Pulse Ox O2 Delivery O2 Flow Rate FiO2 08/02/19 12:00 98.1 86 20 95/53 (67) 100 08/02/19 09:00 Nasal Cannula 2.0 Discharge Disposition Patient was discharged to SNF Discharge Diagnoses: (1) Bacteremia due to Pseudomonas (2) Sepsis Oumar Foy MD Aug 02, 2019 16:19
--- NOTE | 2019-08-02 17:43 | NUR ---
NURSE NOTES:WOUND CARE FOLLOW-UP NOTES: Stable dry necrosis R shoulder(L)3.8cm x (W)4cm. No erythema or fluctuance periwound. NO evidence of skin breakdown sacrum. Full thickness pressure injury R hip/R trochanteric(L)6.9cm x (W)14cm x (D)1.4cm.75% [place] granulation, 25% fascia visible at base of wound. Periwound without evidence of further skin breakdown. Resolving Incontinence Associated dermatitis perineal area and medial aspects of both upper thighs. No erythema noted , scattered area of maceration noted. Stable dry necrosis R lateral Malleolus (L)1.4cm x (W)2cm. WOUnd distal /lateral R foot and R 5th metatarsal have resolved . Hyperpigmentation noted. Non-blanching erythema without induration/fluctuance R hallux(L)1.5cm x (W)2.3cm. Reabsorbed DTPI R Heel(L)3.5cm x (W)3.6cm. Stable dry brown eschar noted. NO erythema or fluctuance periwound. Stable dry necrosis L Hallux(L)1.7cm x (W)1.8cm. edges adherent to base of wound . NO erythema or fluctuance periwound. Wound Tx are effective and continued as ordered. All wound prevention protocols continued as care-planned. Pt has an APM/TIEN Mattress overlay and positioned with pillows as per tolerance within protocols.
[2019-08-02] MEDS ORDERED: Tubing IV Secondary IV ONE (18:14)
[2019-08-02] MEDS ORDERED: NS 275ml ONE (18:14)
--- NOTE | 2019-08-02 18:15 | NUR ---
NURSE NOTES: Patient's discharged per Dr. Redd's order. Patient's in stable condition. Patient will go with IV d/t patient continues [facility] receive [facility]. Spoke to Jessenia, receiving nurse from [facility] to give nurse report. ID band and satellite project site monitor removed. Patient still has tube feeding. Wound pictures are taken. Patient has no belonging. Patient unable to sign discharge documents. Patient's off the floor at 1800.
[2019-08-02] MEDS ORDERED: Epoetin Alfa-EPBX(ESRD on dialysis)3000 units/ml vial SUBQ SCH (21:00)
--- NOTE | 2019-08-02 21:24 | Neurology Progress Note ---
Interim History Interim History ROS Limited/Unobtainable: No Interim History no aucte events dc planning Objective Physical Exam Last Vital Signs Date Time Temp Pulse Resp B/P (MAP) Pulse Ox O2 Delivery O2 Flow Rate FiO2 08/02/19 16:00 97.9 82 20 96/48 (64) 100 08/02/19 09:00 Nasal Cannula 2.0 Laboratory Tests Test 08/02/19 04:15 08/02/19 17:45 White Blood Count 14.1 K/UL (4.8-10.8) H Red Blood Count 2.80 M/UL (4.20-5.40) L Hemoglobin 8.1 G/DL (12.0-16.0) L Hematocrit 25.1 % (37.0-47.0) L Mean Corpuscular Volume 90 FL (80-99) Mean Corpuscular Hemoglobin 28.9 PG (27.0-31.0) Mean Corpuscular Hemoglobin Concent 32.2 G/DL (32.0-36.0) Red Cell Distribution Width 12.7 % (11.6-14.8) Platelet Count 376 K/UL (150-450) Mean Platelet Volume 7.7 FL (6.5-10.1) Neutrophils (%) (Auto) 67.4 % (45.0-75.0) Lymphocytes (%) (Auto) 20.2 % (20.0-45.0) Monocytes (%) (Auto) 10.3 % (1.0-10.0) H Eosinophils (%) (Auto) 1.4 % (0.0-3.0) Basophils (%) (Auto) 0.7 % (0.0-2.0) Sodium Level 139 MMOL/L (136-145) Potassium Level 3.3 MMOL/L (3.5-5.1) L Chloride Level 95 MMOL/L (98-107) L Carbon Dioxide Level 30 MMOL/L (21-32) Anion Gap 14 mmol/L (5-15) Blood Urea Nitrogen 72 mg/dL (7-18) H Creatinine 3.8 MG/DL (0.55-1.30) H Estimat Glomerular Filtration Rate 13.6 mL/min (>60) Glucose Level 124 MG/DL (74-106) H Calcium Level 10.0 MG/DL (8.5-10.1) Phosphorus Level 5.1 MG/DL (2.5-4.9) H Magnesium Level 2.5 MG/DL (1.8-2.4) H Total Bilirubin 0.4 MG/DL (0.2-1.0) Aspartate Amino Transf (AST/SGOT) 22 U/L (15-37) Alanine Aminotransferase (ALT/SGPT) 17 U/L (12-78) Alkaline Phosphatase 75 U/L (46-116) Total Protein 7.7 G/DL (6.4-8.2) Albumin 4.1 G/DL (3.4-5.0) Globulin 3.6 g/dL Albumin/Globulin Ratio 1.1 (1.0-2.7) Random Vancomycin Level 26.7 ug/mL 19.0 ug/mL Random Amikacin Level Pending Head: normocophalic Neck: no rigidity EENT: benign Neurologic Exam Mental Status: awake Cranial Nerves III, IV, : PERRLA Objective Wakes up, tracks with eyes, tell me her name, withdraws all 4 Impression/Recommendations Problems: (1) Decubitus skin ulcer (2) Fever (3) Rhabdomyolysis (4) Elevated troponin (5) KAREN (acute kidney injury) (6) Fever (7) Elevated brain natriuretic peptide (BNP) level (8) ESRD (end stage renal disease) on dialysis (9) ESRD (end stage renal disease) on dialysis (10) Pressure ulcer (11) Protein calorie malnutrition (12) Dysphagia Status: stable Diagnostic Impression Acute encephalopathy, improved baseline dementia Sepsis Monitor neuro exam for improvement cont atb neg covid Delirium precautions Sushil Stevenson MD Aug 02, 2019 21:24
--- NOTE | 2019-08-03 15:18 | NUR ---
CAMP PROGRAM DIRECTOR NOTES RECEIVED A CALL FROM JEREMIAH @ REQUESTING DOCUMENTS BE SENT TO [facility]. PLACED A CALL TO [facility] ASKED TO SPEAK WITH JASON, JASON GONE FOR THE DAY. SPOKE WITH OCTAVIO UNABLE TO ASSIST, SHE IS NOT SURE OF THE DOCUMENTS JASON IS REQUESTING.ENCOURAGED ME TO CALL ON MONDAY AFTER 7AM. JEREMIAH MADE AWARE. [facility] [phone]
== END 2019-08-02 18:15 | DRG 853 ==
LOC: EDBD 11:57 → EDBEDREQ 12:15 → EMR 12:35 → 2W 12:41 → EDBEDREQ 15:41 → 2E 07-17 18:03
PROC: 05PYX3Z Removal of Infusion Device from Upper Vein, External Approach (ICD-10-PCS; principal; 2019-07-20)
PROC: 5A1D70Z Performance of Urinary Filtration, Intermittent, Less than 6 Hours Per Day (ICD-10-PCS; principal; 2019-07-20)
PROC: 06HM33Z Insertion of Infusion Device into Right Femoral Vein, Percutaneous Approach (ICD-10-PCS; 2019-07-23)
PROC: 05HM33Z Insertion of Infusion Device into Right Internal Jugular Vein, Percutaneous Approach (ICD-10-PCS; 2019-07-30)
PROC: B513ZZA Fluoroscopy of Right Jugular Veins, Guidance (ICD-10-PCS; 2019-07-30)
PROC: 0JH63XZ Insertion of Tunneled Vascular Access Device into Chest Subcutaneous Tissue and Fascia, Percutaneous Approach (ICD-10-PCS; 2019-07-30)
PROC: 0JBL0ZZ Excision of Right Upper Leg Subcutaneous Tissue and Fascia, Open Approach (ICD-10-PCS; 2019-07-31)
PROC: 06PYX3Z Removal of Infusion Device from Lower Vein, External Approach (ICD-10-PCS; 2019-07-31)
DX: A41.9 Sepsis, unspecified organism (principal); L89.214 Pressure ulcer of right hip, stage 4; N18.6 End stage renal disease; J15.1 Pneumonia due to Pseudomonas; I13.2 Hypertensive heart and chronic kidney disease with heart failure and with stage 5 chronic kidney disease, or end stage renal disease; N17.9 Acute kidney failure, unspecified; E46 Unspecified protein-calorie malnutrition; M62.82 Rhabdomyolysis; G93.40 Encephalopathy, unspecified; E87.0 Hyperosmolality and hypernatremia; I50.9 Heart failure, unspecified; Z99.2 Dependence on renal dialysis; R31.29 Other microscopic hematuria; R33.9 Retention of urine, unspecified; N31.9 Neuromuscular dysfunction of bladder, unspecified; F03.90 Unspecified dementia, unspecified severity, without behavioral disturbance, psychotic disturbance, mood disturbance, and anxiety; Z68.23 Body mass index [BMI] 23.0-23.9, adult; R19.7 Diarrhea, unspecified; I25.10 Atherosclerotic heart disease of native coronary artery without angina pectoris; R00.0 Tachycardia, unspecified; E87.5 Hyperkalemia; E87.6 Hypokalemia
CPT/HCPCS: 36415; 71045; 74176; 76000; 80048; 80053; 80150; 80202; 81003; 82270; 82306; 82728; 83540; 83550; 83605; 83735; 83880; 83970; 84100; 84484; 85007; 85025; 85610; 85651; 85730; 86140; 86706; 86710; 87040; 87070; 87081; 87086; 87181; 87205; 87324; 93005; 93306; 96365; 96368; 99285; J8499

== ENCOUNTER 2019-08-03 02:27 | Emergency (ER) | payer MEDICARE, BC ==
[~2019-08-03] VITALS: Ht 162.6 cm; Wt 45.4 kg
[~2019-08-03 02:27] MED LIST changes: +ACETAMINOPHEN325 M1 ORAL; +Amikacin Rx to dose MISC; +COREG6.25 MG ORAL; +LIPITOR10 MG GT; +LOPERAMIDE1 MG/7.5 M NG; +MYCAMINE100 M1 IVPB; +ZOSYN 3.373.375 GM/1 IVPB
[2019-08-03 02:30] VITALS: BP 173/71
--- NOTE | 2019-08-03 02:30 | NUR ---
ED Nurse Note: Patient brought into ED by john from [facility] c/o rectal tube extraction. per Brigid from [facility], states that the [facility] due to facility not havign supplies to take care of rectal tube. patient presents with multiple ulcers located on her coccyx area. rectal tube was functioning well with watery diarrhea. patient is alert and oriented x1.
--- NOTE | 2019-08-03 02:33 | Emergency Room Report ---
History of Present Illness General Source: Medical Record, EMS Present Illness HPI This is an unfortunate 89-year-old female who is debilitated. She was just discharged from the hospital yesterday. She was admitted for pneumonia, sepsis , wound infection. She had negative COVID. She was [facility] to the [facility]. They sent her back here because she has a rectal tube in. Nursing staff there state that they are not certified to do with that. They sent her here to have the rectal tube removed. Unable any other history of this patient. There is no fever chills but no nausea vomiting. Allergies: Coded Allergies: No Known Allergies (Unverified , 06/24/19) COVID-19 Screening Contact w/high risk pt: No Recent Travel to affected area: No Experienced COVID-19 symptoms?: No COVID-19 symptoms experienced: Cough Patient History Past Medical History: see triage record, old chart reviewed Past Surgical History: other Pertinent Family History: none Social History: Denies: smoking Now: No Immunizations: other Reviewed Nursing Documentation: PMH: Agreed; PSxH: Agreed Nursing Documentation-PMH Hx Cardiac Problems: Yes Hx Cancer: Yes - jaw cancer Hx Gastrointestinal Problems: No Hx Dialysis: No - [facility] 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 Review of Systems Eye: Denies: eye pain, blurred vision ENT: Denies: ear pain, nose congestion, throat swelling Respiratory: Denies: cough, shortness of breath Cardiovascular: Denies: chest pain, palpitations Gastrointestinal: Denies: abdominal pain, diarrhea, nausea, vomiting Musculoskeletal: Denies: back pain, joint pain Skin: Denies: rash Neurological: Denies: headache, numbness Endocrine: Denies: increased thirst, increased urine Hematologic/Lymphatic: Denies: easy bruising All Other Systems: negative except mentioned in HPI Physical Exam Vitals unremarkable Sp02 EP Interpretation: reviewed, normal General Appearance: no apparent distress, alert, cachetic, thin, Chronically Ill Head: normocephalic, atraumatic Eyes: bilateral eye PERRL, bilateral eye EOMI ENT: hearing grossly normal, normal pharynx Neck: full range of motion, supple, no meningismus Respiratory: chest non-tender, lungs clear, normal breath sounds Cardiovascular #1: regular rate, rhythm, no murmur Gastrointestinal: normal bowel sounds, non tender, no mass, no organomegaly, no bruit, non-distended Rectal: other - Patient with a rectal tube Musculoskeletal: other - Very contracted Neurologic: alert Psychiatric: mood/affect normal Skin: other Medical Decision Making Diagnostic Impression: Primary Impression: Diarrhea Qualified Codes: R19.7 - Diarrhea, unspecified Additional Impression: Pressure ulcer ER Course Patient here with a rectal tube. I suspect this was placed because she had diarrhea and she has wound infection of her hip decubital ulcer. Nursing staff unable to care for it at the correction. We will remove the rectal tube based on their policy. This will most likely increase her risk for wound infection. There is no acute process that require readmission. Status: improved Disposition: SNF Condition: Stable Additional Instructions: Continue with wound care. Follow-up with your doctor in 7 days. Return if worse. Jerome Spain MD Aug 03, 2019 02:33
--- NOTE | 2019-08-03 02:35 | NUR ---
ED Nurse Note: removed rectal tube from patient. rectal tube bag had approximately 100mL of liquid brown stool. per HYUN Rainey from [facility]. patient is disharged accompanied by ambulance personnel.
[2019-08-03 02:40] VITALS: BP 165/68
== END 2019-08-03 02:40 ==
LOC: EDUNIT# 02:27 → EDBD 02:27 → EMR 02:34
DX: R19.7 Diarrhea, unspecified (principal); L89.209 Pressure ulcer of unspecified hip, unspecified stage; Z85.89 Personal history of malignant neoplasm of other organs and systems; K62.89 Other specified diseases of anus and rectum
CPT/HCPCS: 99283

== ENCOUNTER 2019-09-07 17:55 | Inpatient (IN) | payer MEDICARE, BC ==
[~2019-09-07] VITALS: Ht 167.6 cm; Wt 53.1 kg
--- NOTE | 2019-09-07 18:23 | Emergency Room Report ---
History of Present Illness General Chief Complaint: Abnormal Labs Present Illness HPI 89-year-old female with history of ESRD and currently receiving dialysis brought in by paramedics from dialysis center due to low hemoglobin of 6. Patient has a baseline being nonverbal and immobile. [facility] Oxygenation within normal limits. Patient appears to be afebrile. Patient was recently [facility] and was hospitalized in June 2019 for sepsis and pneumonia. Patient does not appear in any respiratory symptoms at this time. Appears to be stable with stable vital signs. Patient is a poor historian. (Lino Baker) Allergies: Coded Allergies: No Known Allergies (Unverified , 06/24/19) COVID-19 Screening Contact w/high risk pt: Yes Recent Travel to affected area: No Experienced COVID-19 symptoms?: No COVID-19 symptoms experienced: Cough COVID-[address] JUDGE: No (Lino Baker) Patient History Past Medical History: see triage record Past Surgical History: unable to obtain Pertinent Family History: unable to obtain Now: No Immunizations: UTD Reviewed Nursing Documentation: PMH: Agreed; PSxH: Agreed (Lino Baker) Nursing Documentation-PMH Hx Cardiac Problems: Yes Hx Cancer: Yes - jaw cancer Hx Gastrointestinal Problems: No Hx Dialysis: No - [facility] 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 (Lino Baker) Review of Systems All Other Systems: negative except mentioned in HPI (Lino Baker) Physical Exam Vital Signs Date Time Temp Pulse Resp B/P (MAP) Pulse Ox O2 Delivery O2 Flow Rate FiO2 09/07/19 17:56 97.2 93 20 156/72 (100) Sp02 EP Interpretation: reviewed, normal General Appearance: mild distress Head: normocephalic, atraumatic Eyes: bilateral eye normal inspection, bilateral eye PERRL ENT: normal ENT inspection Neck: normal inspection Respiratory: normal inspection Cardiovascular #1: normal inspection Gastrointestinal: normal inspection Musculoskeletal: pelvis stable Neurologic: alert, sensory intact Psychiatric: depressed affect Skin: no rash Lymphatic: no adenopathy (Lino Baker) Medical Decision Making PA Attestation All diagnoses and treatment plans were reviewed and discussed with my supervising physician Dr. Child (Lino Baker) Diagnostic Impression: Primary Impression: Acute anemia Additional Impressions: UTI (urinary tract infection) Qualified Codes: N39.0 - Urinary tract infection, site not specified Suspected COVID-19 virus infection ER Course 89-year-old female with history of ESRD and currently receiving dialysis brought in by paramedics from dialysis center due to low hemoglobin of 6. Patient has a baseline being nonverbal and immobile. [facility]. Oxygenation within normal limits. Patient appears to be afebrile. Patient was recently [facility] and was hospitalized in June 2019 for sepsis and pneumonia. Patient does not appear in any respiratory symptoms at this time. Appears to be stable with stable vital signs. Patient is a poor historian. Ddx considered but are not limited to: Acute anemia, coronavirus sepsis, pneumonia, Vital signs: are WNL, pt. is afebrile H&PE are most consistent with: Acute anemia, covid rule out, UTI ORDERS: Sepsis order set ER intervention: NS bolus, Patient was admitted with diagnosis of acute anemia to Dr. Locke under supervision of DrLuna: Danyell pt stable at time of admission (Lino Baker) ER Course Please see above note. Patient history obtained by me. Laboratory values reviewed and also x-ray results. Discussed with Dr. Oconnor and Dr. Tinsley. Antibiotics begun. Admitted admitted telemetry. (Melchor Child MD) EKG Diagnostic Results Rate: normal Rhythm: NSR ST Segments: no acute changes Other Impression No acute ST changes (Lino Baker) Rate: normal Rhythm: NSR ST Segments: no acute changes (Melchor Child MD) Rhythm Strip Diag. Results EP Interpretation: yes Rhythm: NSR, no PVC's, no ectopy (Melchor Child MD) Chest X-Ray Diagnostic Results Chest X-Ray Diagnostic Results : Chest X-Ray Ordered: Yes # of Views/Limited/Complete: 1 View Indication: Other EP Interpretation: Yes PA Xray: Interpretation reviewed, by supervising MD, and agrees with findings. Interpretation: no consolidation, no effusion, no pneumothorax Impression: No acute disease Electronically Signed by: Lino DANIEL Scriblona Text IMPRESSION: Left basilar opacity with volume loss, likely atelectasis however a focus of infection could have a similar appearance. (Lino Baker) Last Vital Signs Date Time Temp Pulse Resp B/P (MAP) Pulse Ox O2 Delivery O2 Flow Rate FiO2 09/07/19 17:56 97.2 93 20 156/72 (100) (Lino Baker) Last Vital Signs Date Time Temp Pulse Resp B/P (MAP) Pulse Ox O2 Delivery O2 Flow Rate FiO2 09/07/19 19:01 98.1 90 24 140/55 100 Nasal Cannula 2.0 Status: improved (Melchor Child MD) Disposition: ADMITTED INPATIENT Condition: Serious Lino Baker September 07, 2019 18:23 Melchor Child MD September 08, 2019 01:23
[2019-09-07 18:40] LABS: APPEARANCE,URINE CLOUDY; BILIRUBIN, URINE NEGATIVE (NEGATIVE); GLUCOSE, URINE (UA) NEGATIVE (NEGATIVE); KETONES,URINE NEGATIVE (NEGATIVE); LEUKOCYTE ESTERASE ,URINE 3+ (NEGATIVE); NITRITE,URINE NEGATIVE (NEGATIVE); PH,URINE 8 (4.5-8.0); PROTEIN,URINE 2+ (NEGATIVE); UROBILINOGEN,URINE NORMAL MG/DL (0.0-1.0)
[2019-09-07 18:41] LABS: HEMATOCRIT 25.3 % (37.0-47.0); HEMOGLOBIN 7.4 G/DL (12.0-16.0); MEAN CORPUSCULAR VOLUME 95 FL (80-99); PLATELET COUNT 337 K/UL (150-450); RED BLOOD COUNT 2.67 M/UL (4.20-5.40); RED CELL DISTRIBUTION WIDTH 17.4 % (11.6-14.8); WHITE BLOOD COUNT 9.6 K/UL (4.8-10.8)
[2019-09-07 18:53] LABS: ANION GAP 9 mmol/L (5-15); BLOOD UREA NITROGEN 7 mg/dL (7-18); CALCIUM 8.3 MG/DL (8.5-10.1); CARBON DIOXIDE 26 MMOL/L (21-32); CHLORIDE 103 MMOL/L (98-107); CREATININE 1.1 MG/DL (0.55-1.30); SODIUM 138 MMOL/L (136-145)
[2019-09-07 18:57] LABS: COLOR,URINE YELLOW
[2019-09-07 19:01] VITALS: BP 140/55
[2019-09-07 19:03] LABS: ALANINE AMINOTRANSFERASE 27 U/L (12-78); ALBUMIN 2.4 G/DL (3.4-5.0); ALBUMIN/GLOBULIN RATIO 0.6 (1.0-2.7); ALKALINE PHOSPHATASE 71 U/L (46-116); ASPARTATE AMINO TRANSFERASE 38 U/L (15-37); BILIRUBIN,TOTAL 0.4 MG/DL (0.2-1.0); CKMB 4.1 NG/ML (0.0-3.6); CREATINE KINASE 405 U/L (26-308)
--- NOTE | 2019-09-07 19:20 | Diagnostic Imaging Report ---
EXAM: XR Chest, 1 View CLINICAL HISTORY: PAIN TECHNIQUE: Frontal view of the chest. COMPARISON: 07/28/2019 FINDINGS: Lungs: Left basilar opacity with volume loss, likely atelectasis however a focus of infection could have a similar appearance. Pleural space: No pleural effusion. No pneumothorax. Heart: Unremarkable. No cardiomegaly. Bones/joints: No fracture. Vasculature: Atherosclerotic calcifications. Tubes, lines and devices: Right IJ large bore dialysis catheter terminates within the right atrium. IMPRESSION: Left basilar opacity with volume loss, likely atelectasis however a focus of infection could have a similar appearance.
[2019-09-07] MEDS ORDERED: cefTRIAXone 1 GM in NS 55 ML IVPB ONE (19:45)
--- NOTE | 2019-09-07 20:50 | Consultation ---
History of Present Illness General Chief Complaint: Abnormal Labs Reason for Consultation: ESRD on HD Present Illness HPI Patient is an 89-year-old female with history of ESRD on HD, dysphagia s/p PEG, multiple pressure wounds, HTN presenting from dialysis center after she was found to have serum hgb level of 6.0. Patient is non- verbal and immobile and resides at a [place]. History is obtained from the ED physician and the medical chart. Of note patient was recently hospitalized at [facility] for sepsis and pseudomonas pneumonia and was received appropriate tx with antibiotics. On arrival to the ED, patient's vitals significant for B.P: 156/72mmhg. The CBC showed serum hgb: 7.4 The UA was significant for highly elevated WBC and RBC and 3+ LE. Patient is being admitted for further observation and medical management. Allergies: Coded Allergies: No Known Allergies (Unverified , 06/24/19) Medication History Scheduled Atorvastatin Calcium* (Lipitor*), 10 MG GT QHS Carvedilol (Coreg), 6.25 MG ORAL EVERY 12 HOURS Furosemide* (Lasix*), 40 MG GT DAILY, (Reported) Gabapentin (Gabapentin), 300 MG GT BID, (Reported) Micafungin (Mycamine), 100 MG IVPB Q24H Qdoychyqzmil-Sohb-Xvyiledl,Iso (Zosyn 3.375 Gm Pre Mix-Bag), 3.375 GM IVPB EVERY 8 HOURS Scheduled PRN Acetaminophen* (Acetaminophen 325MG Tablet*), 650 MG ORAL Q6H PRN for Mild Pain (Pain Scale 1-3), (Reported) Loperamide Hcl (Loperamide), 2 MG NG Q6H PRN [Amikacin Rx to dose], 1 EA MISC DAILY PRN Patient History Healthcare decision maker Resuscitation status Advanced Directive on File Review of Systems All Other Systems: negative except mentioned in HPI Physical Exam Last 24 Hour Vital Signs Date Time Temp Pulse Resp B/P (MAP) Pulse Ox O2 Delivery O2 Flow Rate FiO2 09/07/19 19:01 98.1 90 24 140/55 100 Nasal Cannula 2.0 09/07/19 17:56 97.2 93 20 156/72 (100) Laboratory Tests Test 09/07/19 18:05 White Blood Count 9.6 K/UL (4.8-10.8) Red Blood Count 2.67 M/UL (4.20-5.40) L Hemoglobin 7.4 G/DL (12.0-16.0) L Hematocrit 25.3 % (37.0-47.0) L Mean Corpuscular Volume 95 FL (80-99) Mean Corpuscular Hemoglobin 27.8 PG (27.0-31.0) Mean Corpuscular Hemoglobin Concent 29.4 G/DL (32.0-36.0) L Red Cell Distribution Width 17.4 % (11.6-14.8) H Platelet Count 337 K/UL (150-450) Mean Platelet Volume 7.7 FL (6.5-10.1) Neutrophils (%) (Auto) % (45.0-75.0) Lymphocytes (%) (Auto) % (20.0-45.0) Monocytes (%) (Auto) % (1.0-10.0) Eosinophils (%) (Auto) % (0.0-3.0) Basophils (%) (Auto) % (0.0-2.0) Differential Total Cells Counted 100 Neutrophils % (Manual) 64 % (45-75) Lymphocytes % (Manual) 26 % (20-45) Monocytes % (Manual) 9 % (1-10) Eosinophils % (Manual) 1 % (0-3) Basophils % (Manual) 0 % (0-2) Band Neutrophils 0 % (0-8) Platelet Estimate Adequate Platelet Morphology Normal Hypochromasia 2+ Anisocytosis 1+ Prothrombin Time 11.4 SEC (9.30-11.50) Prothromb Time International Ratio 1.0 (0.9-1.1) Activated Partial Thromboplast Time 34 SEC (23-33) H D-Dimer 3.59 mg/L FEU (0.00-0.49) H Urine Color Yellow Urine Appearance Cloudy Urine pH 8 (4.5-8.0) Urine Specific [place] 1.010 (1.005-1.035) Urine Protein 2+ (NEGATIVE) H Urine Glucose (UA) Negative (NEGATIVE) Urine Ketones Negative (NEGATIVE) Urine Blood 5+ (NEGATIVE) H Urine Nitrite Negative (NEGATIVE) Urine Bilirubin Negative (NEGATIVE) Urine Urobilinogen Normal MG/DL (0.0-1.0) Urine Leukocyte Esterase 3+ (NEGATIVE) H Urine RBC Tntc /HPF (0 - 2) H Urine WBC Tntc /HPF (0 - 2) H Urine Squamous Epithelial Cells Moderate /LPF (NONE/OCC) H Urine Bacteria Many /HPF (NONE) H Sodium Level 138 MMOL/L (136-145) Potassium Level 4.0 MMOL/L (3.5-5.1) Chloride Level 103 MMOL/L (98-107) Carbon Dioxide Level 26 MMOL/L (21-32) Anion Gap 9 mmol/L (5-15) Blood Urea Nitrogen 7 mg/dL (7-18) Creatinine 1.1 MG/DL (0.55-1.30) Estimat Glomerular Filtration Rate 56.6 mL/min (>60) Glucose Level 96 MG/DL (74-106) Lactic Acid Level 0.70 mmol/L (0.4-2.0) Calcium Level 8.3 MG/DL (8.5-10.1) L Total Bilirubin 0.4 MG/DL (0.2-1.0) Aspartate Amino Transf (AST/SGOT) 38 U/L (15-37) H Alanine Aminotransferase (ALT/SGPT) 27 U/L (12-78) Alkaline Phosphatase 71 U/L (46-116) Total Creatine Kinase 405 U/L (26-308) H Creatine Kinase MB 4.1 NG/ML (0.0-3.6) H Creatine Kinase MB Relative Index 1.0 Troponin I 0.038 ng/mL (0.000-0.056) Pro-B-Type Natriuretic Peptide 6341 pg/mL (0-125) H Total Protein 6.4 G/DL (6.4-8.2) Albumin 2.4 G/DL (3.4-5.0) L Globulin 4.0 g/dL Albumin/Globulin Ratio 0.6 (1.0-2.7) L Height (Feet): 5 Height (Inches): 4.00 Weight (Pounds): 110 Medications Current Medications Medications (Trade) Dose Ordered Sig/Joan Route PRN Reason Start Time Stop Time Status Last Admin Dose Admin Sodium Chloride 1,000 ml @ 100 mls/hr Q10H IV 09/07/19 18:15 10/07/19 18:14 09/07/19 18:44 Objective Narrative General Appearance: confused, cachetic, thin Lines, tubes and drains: peripheral HEENT: normocephalic, atraumatic Respiratory/Chest: chest wall non-tender, no respiratory distress Cardiovascular/Chest: normal peripheral pulses Abdomen: feeding tube Extremities: non-pitting, no cyanosis, other - unable to move extremities. Skin Exam: other - pressure ulcers Assessment/Plan Diagnosis [place] I: #ESRD on HD TTHS- #anemia of CKD #UTI #dysphagia s/p PEG #multiple pressure wounds #HTN - next HD on monday - prbc transfusion for hemoglobin < 7 - resume epo 4k TIW - IV iron - monitor CBC - lasix 40 TID - ceftriaxone for UTI - continue coreg 6.25mg BID Time spent 70 min > 50% on care coordination and counseling Rory Oconnor M.D. September 07, 2019 20:50
--- NOTE | 2019-09-07 22:43 | History and Physical ---
History of Present Illness General Date patient seen: September 07, 2019 Reason for Hospitalization: Abnormal LabsUrinary Tract Infection Present Illness HPI Patient is an 89-year-old female with history of ESRD on HD, dysphagia s/p PEG, multiple pressure wounds, HTN presenting from dialysis center after she was found to have serum hgb level of 6.0. Patient is non- verbal and immobile and resides at a [place]. History is obtained from the ED physician and the medical chart. Of note patient was recently hospitalized at [facility] for sepsis and pseudomonas pneumonia and was received appropriate tx with antibiotics. On arrival to the ED, patient's vitals significant for B.P: 156/72mmhg. The CBC showed serum hgb: 7.4 The UA was significant for highly elevated WBC and RBC and 3+ LE. Patient is being admitted for further observation and medical management. Allergies: Coded Allergies: No Known Allergies (Unverified , 06/24/19) COVID-19 Screening Contact w/high risk pt: Yes Recent Travel to affected area: No Experienced COVID-19 symptoms?: No COVID-19 symptoms experienced: Cough Medication History Scheduled Atorvastatin Calcium* (Lipitor*), 10 MG GT QHS Carvedilol (Coreg), 6.25 MG ORAL EVERY 12 HOURS Furosemide* (Lasix*), 40 MG GT DAILY, (Reported) Gabapentin (Gabapentin), 300 MG GT BID, (Reported) Micafungin (Mycamine), 100 MG IVPB Q24H Wxtacpwquxbg-Yiha-Qzvthhsw,Iso (Zosyn 3.375 Gm Pre Mix-Bag), 3.375 GM IVPB EVERY 8 HOURS Scheduled PRN Acetaminophen* (Acetaminophen 325MG Tablet*), 650 MG ORAL Q6H PRN for Mild Pain (Pain Scale 1-3), (Reported) Loperamide Hcl (Loperamide), 2 MG NG Q6H PRN [Amikacin Rx to dose], 1 EA MISC DAILY PRN Patient History Healthcare decision maker Resuscitation status Advanced Directive on File Review of Systems ROS Narrative Unable to obtain. patient is non-verbal at baseline. Physical Exam General Appearance: confused, cachetic, thin Lines, tubes and drains: peripheral HEENT: normocephalic, atraumatic Respiratory/Chest: chest wall non-tender, no respiratory distress Cardiovascular/Chest: normal peripheral pulses Abdomen: feeding tube Extremities: non-pitting, no cyanosis, other - unable to move extremities. Skin Exam: other - pressure ulcers Last 24 Hour Vital Signs Date Time Temp Pulse Resp B/P (MAP) Pulse Ox O2 Delivery O2 Flow Rate FiO2 09/07/19 19:01 98.1 90 24 140/55 100 Nasal Cannula 2.0 09/07/19 17:56 97.2 93 20 156/72 (100) Laboratory Tests Test 09/07/19 18:05 White Blood Count 9.6 K/UL (4.8-10.8) Red Blood Count 2.67 M/UL (4.20-5.40) L Hemoglobin 7.4 G/DL (12.0-16.0) L Hematocrit 25.3 % (37.0-47.0) L Mean Corpuscular Volume 95 FL (80-99) Mean Corpuscular Hemoglobin 27.8 PG (27.0-31.0) Mean Corpuscular Hemoglobin Concent 29.4 G/DL (32.0-36.0) L Red Cell Distribution Width 17.4 % (11.6-14.8) H Platelet Count 337 K/UL (150-450) Mean Platelet Volume 7.7 FL (6.5-10.1) Neutrophils (%) (Auto) % (45.0-75.0) Lymphocytes (%) (Auto) % (20.0-45.0) Monocytes (%) (Auto) % (1.0-10.0) Eosinophils (%) (Auto) % (0.0-3.0) Basophils (%) (Auto) % (0.0-2.0) Differential Total Cells Counted 100 Neutrophils % (Manual) 64 % (45-75) Lymphocytes % (Manual) 26 % (20-45) Monocytes % (Manual) 9 % (1-10) Eosinophils % (Manual) 1 % (0-3) Basophils % (Manual) 0 % (0-2) Band Neutrophils 0 % (0-8) Platelet Estimate Adequate Platelet Morphology Normal Hypochromasia 2+ Anisocytosis 1+ Prothrombin Time 11.4 SEC (9.30-11.50) Prothromb Time International Ratio 1.0 (0.9-1.1) Activated Partial Thromboplast Time 34 SEC (23-33) H D-Dimer 3.59 mg/L FEU (0.00-0.49) H Urine Color Yellow Urine Appearance Cloudy Urine pH 8 (4.5-8.0) Urine Specific [place] 1.010 (1.005-1.035) Urine Protein 2+ (NEGATIVE) H Urine Glucose (UA) Negative (NEGATIVE) Urine Ketones Negative (NEGATIVE) Urine Blood 5+ (NEGATIVE) H Urine Nitrite Negative (NEGATIVE) Urine Bilirubin Negative (NEGATIVE) Urine Urobilinogen Normal MG/DL (0.0-1.0) Urine Leukocyte Esterase 3+ (NEGATIVE) H Urine RBC Tntc /HPF (0 - 2) H Urine WBC Tntc /HPF (0 - 2) H Urine Squamous Epithelial Cells Moderate /LPF (NONE/OCC) H Urine Bacteria Many /HPF (NONE) H Sodium Level 138 MMOL/L (136-145) Potassium Level 4.0 MMOL/L (3.5-5.1) Chloride Level 103 MMOL/L (98-107) Carbon Dioxide Level 26 MMOL/L (21-32) Anion Gap 9 mmol/L (5-15) Blood Urea Nitrogen 7 mg/dL (7-18) Creatinine 1.1 MG/DL (0.55-1.30) Estimat Glomerular Filtration Rate 56.6 mL/min (>60) Glucose Level 96 MG/DL (74-106) Lactic Acid Level 0.70 mmol/L (0.4-2.0) Calcium Level 8.3 MG/DL (8.5-10.1) L Total Bilirubin 0.4 MG/DL (0.2-1.0) Aspartate Amino Transf (AST/SGOT) 38 U/L (15-37) H Alanine Aminotransferase (ALT/SGPT) 27 U/L (12-78) Alkaline Phosphatase 71 U/L (46-116) Total Creatine Kinase 405 U/L (26-308) H Creatine Kinase MB 4.1 NG/ML (0.0-3.6) H Creatine Kinase MB Relative Index 1.0 Troponin I 0.038 ng/mL (0.000-0.056) Pro-B-Type Natriuretic Peptide 6341 pg/mL (0-125) H Total Protein 6.4 G/DL (6.4-8.2) Albumin 2.4 G/DL (3.4-5.0) L Globulin 4.0 g/dL Albumin/Globulin Ratio 0.6 (1.0-2.7) L Microbiology Date/Time Source Procedure Growth Status 09/07/19 18:50 Rectum Received Height (Feet): 5 Height (Inches): 4.00 Weight (Pounds): 110 Medications Current Medications Medications (Trade) Dose Ordered Sig/Joan Route PRN Reason Start Time Stop Time Status Last Admin Dose Admin Sodium Chloride 1,000 ml @ 100 mls/hr Q10H IV 09/07/19 18:15 10/07/19 18:14 09/07/19 18:44 Assessment/Plan Assessment/Plan: 89 YO F with ESRD on HD, 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 Patient is being placed in observation unit for further medical work up #ESRD on HD #Acute on chronic anemia #Anemia of ESRD -Serum hgb:7.4 -Continue to monitor; CBC Q 8H -cont. to monitor for signs/symptoms of bleeding -Transfuse for hgb <7.0 -EPOGEN per nephro -Dr. Oconnor (nephrology) on board. Appreciate further recommendations. #Urinary tract infection-Complicated: #Indwelling Sanchez catheter -Highly elevated WBC and RBC on UA; 3+ LE -Empiric tx with IV Rocephin. -ID to be consulted in the A.M. #HTN #elevated troponin #Elevated BNP -trops stable at baseline -likely due to demand ischemia, ESRD, sepsis -ASA, statin -Resume home Lasix -hydralazine PRN for SBP >160 -Carvedilol 6.25 mg BID -Cardio following consult in the A.M. #Dysphagia -s/p PEG -tolerating TF -Dietary and GI following, recs appreciated #Advanced Dementia -stable -neuro following, appreciate recs #Pressure wounds -Will consult wound care F: Tube feeding E:Monitor and replete PRN N: Tube feeding. Spent 72 minutes on the patient's case and care coordination. Case discussed with RN at the bedside. Case discussed with Consultants on the phone. Thien Brasher M.D. September 07, 2019 22:43
[2019-09-08 04:00] VITALS: BP 133/76
[2019-09-08 08:00] VITALS: BP 137/78
[2019-09-08] MEDS: Carvedilol 6.25mg Tab GT SCH ×2 (08:54→21:00)
[2019-09-08 09:00] LABS: HEMATOCRIT 24.3 % (37.0-47.0); HEMOGLOBIN 7.9 G/DL (12.0-16.0); MEAN CORPUSCULAR VOLUME 89 FL (80-99); PLATELET COUNT 370 K/UL (150-450); RED BLOOD COUNT 2.74 M/UL (4.20-5.40); RED CELL DISTRIBUTION WIDTH 16.4 % (11.6-14.8); WHITE BLOOD COUNT 11.7 K/UL (4.8-10.8)
--- NOTE | 2019-09-08 09:00 | General Progress Note ---
Assessment/Plan Assessment/Plan: Assessment/Plan Status: stable Assessment/Plan: 1. End-stage renal disease, on hemodialysis. 2. Anemia iron def 3. Dysphagia, status post G-tube placement. 4. Pneumonia. 5. Pancreatic cyst. 6. Hypertension. 7. elevated CEA of 10 8. CAD 9. UTI chart from prior admissions reviewed add iv iron repeat stool ob transfuse to keep HGB above 7 change GT rate to 40 cc HD per nephrology will fu Subjective ROS Limited/Unobtainable: No Allergies: Coded Allergies: No Known Allergies (Unverified , 06/24/19) Objective Last 24 Hour Vital Signs Date Time Temp Pulse Resp B/P (MAP) Pulse Ox O2 Delivery O2 Flow Rate FiO2 09/08/19 08:54 108 137/78 09/08/19 08:00 98.0 108 20 137/78 (97) 99 09/08/19 04:00 98.2 98 20 133/76 (95) 100 09/08/19 04:00 97 09/08/19 01:53 Nasal Cannula 2.0 09/08/19 00:00 87 09/07/19 19:01 98.1 90 24 140/55 100 Nasal Cannula 2.0 09/07/19 17:56 97.2 93 20 156/72 (100) Intake and Output 09/07/19 09/08/19 19:00 07:00 Intake Total 450 ml Output Total 300 ml Balance 150 ml Intake Oral 400 ml Tube Feeding 50 ml Output Urine Total 300 ml Laboratory Tests 09/07/19 18:05: White Blood Count 9.6, Red Blood Count 2.67L, Hemoglobin 7.4L, Hematocrit 25.3L , Mean Corpuscular Volume 95, Mean Corpuscular Hemoglobin 27.8, Mean Corpuscular Hemoglobin Concent 29.4L, Red Cell Distribution Width 17.4H, Platelet Count 337, Mean Platelet Volume 7.7, Neutrophils (%) (Auto) , Lymphocytes (%) (Auto) , Monocytes (%) (Auto) , Eosinophils (%) (Auto) , Basophils (%) (Auto) , Differential Total Cells Counted 100, Neutrophils % ( Manual) 64, Lymphocytes % (Manual) 26, Monocytes % (Manual) 9, Eosinophils % ( Manual) 1, Basophils % (Manual) 0, Band Neutrophils 0, Platelet Estimate Adequate, Platelet Morphology Normal, Hypochromasia 2+, Anisocytosis 1+, Prothrombin Time 11.4, Prothromb Time International Ratio 1.0, Activated Partial Thromboplast Time 34H, D-Dimer 3.59H, Urine Color Yellow, Urine Appearance Cloudy, Urine pH 8, Urine Specific [place] 1.010, Urine Protein 2+H, Urine Glucose (UA) Negative, Urine Ketones Negative, Urine Blood 5+H, Urine Nitrite Negative, Urine Bilirubin Negative, Urine Urobilinogen Normal, Urine Leukocyte Esterase 3+H, Urine RBC TntcH, Urine WBC TntcH, Urine Squamous Epithelial Cells ModerateH, Urine Bacteria ManyH, Sodium Level 138, Potassium Level 4.0, Chloride Level 103, Carbon Dioxide Level 26, Anion Gap 9, Blood Urea Nitrogen 7, Creatinine 1.1, Estimat Glomerular Filtration Rate 56.6, Glucose Level 96, Lactic Acid Level 0.70, Calcium Level 8.3L, Total Bilirubin 0.4, Aspartate Amino Transf (AST/SGOT) 38H, Alanine Aminotransferase (ALT/SGPT) 27, Alkaline Phosphatase 71, Total Creatine Kinase 405H, Creatine Kinase MB 4.1H, Creatine Kinase MB Relative Index 1.0, Troponin I 0.038, Pro-B-Type Natriuretic Peptide 6341H, Total Protein 6.4, Albumin 2.4L, Globulin 4.0, Albumin/Globulin Ratio 0.6L 09/08/19 08:20: White Blood Count [Pending], Red Blood Count [Pending], Hemoglobin [Pending], Hematocrit [Pending], Mean Corpuscular Volume [Pending], Mean Corpuscular Hemoglobin [Pending], Mean Corpuscular Hemoglobin Concent [Pending], Red Cell Distribution Width [Pending], Platelet Count [Pending], Mean Platelet Volume [ Pending], Neutrophils (%) (Auto) [Pending], Lymphocytes (%) (Auto) [Pending], Monocytes (%) (Auto) [Pending], Eosinophils (%) (Auto) [Pending], Basophils (%) (Auto) [Pending], Sodium Level [Pending], Potassium Level [Pending], Chloride Level [Pending], Carbon Dioxide Level [Pending], Blood Urea Nitrogen [Pending], Creatinine [Pending], Estimat Glomerular Filtration Rate [Pending], Glucose Level [Pending], Calcium Level [Pending], Total Bilirubin [Pending], Aspartate Amino Transf (AST/SGOT) [Pending], Alanine Aminotransferase (ALT/SGPT) [Pending] , Alkaline Phosphatase [Pending], Total Protein [Pending], Albumin [Pending], Globulin [Pending], Phosphorus Level [Pending], Magnesium Level [Pending], Iron Level [Pending], Unsaturated Iron Binding [Pending], Vitamin B12 Level [Pending] , Folate [Pending] Height (Feet): 5 Height (Inches): 6.00 Weight (Pounds): 110 General Appearance: lethargic EENT: normal ENT inspection Neck: supple Cardiovascular: normal rate Respiratory/Chest: decreased breath sounds Abdomen: normal bowel sounds, non tender, soft Extremities: non-tender Jun Mena MD September 08, 2019 09:00
[2019-09-08 09:09] LABS: ALANINE AMINOTRANSFERASE 26 U/L (12-78); ALBUMIN 2.4 G/DL (3.4-5.0); ALBUMIN/GLOBULIN RATIO 0.6 (1.0-2.7); ALKALINE PHOSPHATASE 79 U/L (46-116); ANION GAP 9 mmol/L (5-15); ASPARTATE AMINO TRANSFERASE 30 U/L (15-37); BILIRUBIN,TOTAL 0.4 MG/DL (0.2-1.0); BLOOD UREA NITROGEN 14 mg/dL (7-18); CALCIUM 8.6 MG/DL (8.5-10.1); CARBON DIOXIDE 25 MMOL/L (21-32); CHLORIDE 106 MMOL/L (98-107); CREATININE 1.7 MG/DL (0.55-1.30); PHOSPHORUS 1.8 MG/DL (2.5-4.9); SODIUM 140 MMOL/L (136-145)
[2019-09-08 10:13] LABS: % IRON SATURATION 14 % (15-50); IRON 19 ug/dL (50-175); TOTAL IRON BINDING CAPACITY 136 ug/dL (250-450)
[2019-09-08 12:00] VITALS: BP 130/70
--- NOTE | 2019-09-08 12:21 | Nephrology Progress Note ---
Assessment/Plan Plan #ESRD on HD TT- #anemia of CKD #UTI #dysphagia s/p PEG #multiple pressure wounds #HTN - next HD on monday - prbc transfusion for hemoglobin < 7 - resume epo 4k TIW - IV iron - monitor CBC - lasix 40 TID - ceftriaxone for UTI - continue coreg 6.25mg BID Time spent 70 min > 50% on care coordination and counseling Subjective ROS Limited/Unobtainable: Yes Subjective hemoglobin stable on IV iron evaluated by GI Objective Objective Last 24 Hour Vital Signs Date Time Temp Pulse Resp B/P (MAP) Pulse Ox O2 Delivery O2 Flow Rate FiO2 09/08/19 09:00 Room Air 09/08/19 08:54 108 137/78 09/08/19 08:00 108 09/08/19 08:00 98.0 108 20 137/78 (97) 99 09/08/19 04:00 98.2 98 20 133/76 (95) 100 09/08/19 04:00 97 09/08/19 01:53 Nasal Cannula 2.0 09/08/19 00:00 87 09/07/19 19:01 98.1 90 24 140/55 100 Nasal Cannula 2.0 09/07/19 17:56 97.2 93 20 156/72 (100) Intake and Output 09/07/19 09/08/19 19:00 07:00 Intake Total 450 ml Output Total 300 ml Balance 150 ml Intake Oral 400 ml Tube Feeding 50 ml Output Urine Total 300 ml Laboratory Tests 09/07/19 18:05: White Blood Count 9.6, Red Blood Count 2.67L, Hemoglobin 7.4L, Hematocrit 25.3L , Mean Corpuscular Volume 95, Mean Corpuscular Hemoglobin 27.8, Mean Corpuscular Hemoglobin Concent 29.4L, Red Cell Distribution Width 17.4H, Platelet Count 337, Mean Platelet Volume 7.7, Neutrophils (%) (Auto) , Lymphocytes (%) (Auto) , Monocytes (%) (Auto) , Eosinophils (%) (Auto) , Basophils (%) (Auto) , Differential Total Cells Counted 100, Neutrophils % ( Manual) 64, Lymphocytes % (Manual) 26, Monocytes % (Manual) 9, Eosinophils % ( Manual) 1, Basophils % (Manual) 0, Band Neutrophils 0, Platelet Estimate Adequate, Platelet Morphology Normal, Hypochromasia 2+, Anisocytosis 1+, Prothrombin Time 11.4, Prothromb Time International Ratio 1.0, Activated Partial Thromboplast Time 34H, D-Dimer 3.59H, Urine Color Yellow, Urine Appearance Cloudy, Urine pH 8, Urine Specific [place] 1.010, Urine Protein 2+H, Urine Glucose (UA) Negative, Urine Ketones Negative, Urine Blood 5+H, Urine Nitrite Negative, Urine Bilirubin Negative, Urine Urobilinogen Normal, Urine Leukocyte Esterase 3+H, Urine RBC TntcH, Urine WBC TntcH, Urine Squamous Epithelial Cells ModerateH, Urine Bacteria ManyH, Sodium Level 138, Potassium Level 4.0, Chloride Level 103, Carbon Dioxide Level 26, Anion Gap 9, Blood Urea Nitrogen 7, Creatinine 1.1, Estimat Glomerular Filtration Rate 56.6, Glucose Level 96, Lactic Acid Level 0.70, Calcium Level 8.3L, Total Bilirubin 0.4, Aspartate Amino Transf (AST/SGOT) 38H, Alanine Aminotransferase (ALT/SGPT) 27, Alkaline Phosphatase 71, Total Creatine Kinase 405H, Creatine Kinase MB 4.1H, Creatine Kinase MB Relative Index 1.0, Troponin I 0.038, Pro-B-Type Natriuretic Peptide 6341H, Total Protein 6.4, Albumin 2.4L, Globulin 4.0, Albumin/Globulin Ratio 0.6L 09/08/19 08:20: White Blood Count 11.7H, Red Blood Count 2.74L, Hemoglobin 7.9L, Hematocrit 24.3L, Mean Corpuscular Volume 89, Mean Corpuscular Hemoglobin 28.8, Mean Corpuscular Hemoglobin Concent 32.5, Red Cell Distribution Width 16.4H, Platelet Count 370, Mean Platelet Volume 6.0L, Neutrophils (%) (Auto) , Lymphocytes (%) (Auto) , Monocytes (%) (Auto) , Eosinophils (%) (Auto) , Basophils (%) (Auto) , Differential Total Cells Counted 100, Neutrophils % ( Manual) 77H, Lymphocytes % (Manual) 18L, Monocytes % (Manual) 4, Eosinophils % ( Manual) 1, Basophils % (Manual) 0, Band Neutrophils 0, Platelet Estimate Adequate, Platelet Morphology Normal, Hypochromasia 1+, Anisocytosis 1+, Sodium Level 140, Potassium Level 4.0, Chloride Level 106, Carbon Dioxide Level 25, Anion Gap 9, Blood Urea Nitrogen 14, Creatinine 1.7#H, Estimat Glomerular Filtration Rate 34.3, Glucose Level 130H, Calcium Level 8.6, Total Bilirubin 0.4 , Aspartate Amino Transf (AST/SGOT) 30, Alanine Aminotransferase (ALT/SGPT) 26, Alkaline Phosphatase 79, Total Protein 6.3L, Albumin 2.4L, Globulin 3.9, Albumin /Globulin Ratio 0.6L, Polychromasia 1+, Phosphorus Level 1.8L, Magnesium Level 1.8, Iron Level 19L, Total Iron Binding Capacity 136L, Percent Iron Saturation 14L, Unsaturated Iron Binding 117, Vitamin B12 Level 1979H, Folate 39.1 Height (Feet): 5 Height (Inches): 6.00 Weight (Pounds): 110 Objective General Appearance: confused, cachetic, thin Lines, tubes and drains: peripheral HEENT: normocephalic, atraumatic Respiratory/Chest: chest wall non-tender, no respiratory distress Cardiovascular/Chest: normal peripheral pulses Abdomen: feeding tube Extremities: non-pitting, no cyanosis, other - unable to move extremities. Skin Exam: other - pressure ulcers Rory Oconnor M.D. September 08, 2019 12:21
--- NOTE | 2019-09-08 12:47 | Consultation ---
History of Present Illness General Date patient seen: September 08, 2019 Reason for Hospitalization: Abnormal Labs Present Illness HPI This is a very pleasant 89-year-old female with multiple medical comorbidities who is well-known to me from prior admissions that I have cared for in the past that presented to [facility] from her dialysis center during dialysis noted to have a hemoglobin of 6. Patient has a baseline being nonverbal and immobile. Hx of ESRD on HD, multiple medical comorbidities, half-way resident. Patient was recently [facility] and was hospitalized in June 2019 for sepsis and pneumonia. Patient does not appear in any respiratory symptoms at this time. Appears to be stable with stable vital signs. Patient is a poor historian. On admission continues to have multiple decubitus ulcers, malnutrition, abnormal labs. Surgery called to evaluate and assist with care. Patient seen, patient evaluated, chart reviewed Allergies: Coded Allergies: No Known Allergies (Unverified , 06/24/19) COVID-19 Screening Contact w/high risk pt: Yes Recent Travel to affected area: No Experienced COVID-19 symptoms?: No COVID-19 symptoms experienced: Cough Medication History Scheduled Atorvastatin Calcium* (Lipitor*), 10 MG GT QHS Carvedilol (Coreg), 6.25 MG ORAL EVERY 12 HOURS Furosemide* (Lasix*), 40 MG GT DAILY, (Reported) Gabapentin (Gabapentin), 300 MG GT BID, (Reported) Micafungin (Mycamine), 100 MG IVPB Q24H Bbxpbxghltmw-Hljz-Lftdndow,Iso (Zosyn 3.375 Gm Pre Mix-Bag), 3.375 GM IVPB EVERY 8 HOURS Scheduled PRN Acetaminophen* (Acetaminophen 325MG Tablet*), 650 MG ORAL Q6H PRN for Mild Pain (Pain Scale 1-3), (Reported) Loperamide Hcl (Loperamide), 2 MG NG Q6H PRN [Amikacin Rx to dose], 1 EA MISC DAILY PRN Patient History Limited by: age, medical condition History Provided By: Medical Record, PMD Healthcare decision maker Resuscitation status Advanced Directive on File Past Medical/Surgical History Past Medical/Surgical History: (1) Sepsis (2) Bacteremia due to Pseudomonas (3) COVID-19 ruled out (4) Anemia (5) Chronic kidney failure (6) UTI (urinary tract infection) (7) Acute anemia (8) Suspected COVID-19 virus infection (9) Decubitus skin ulcer (10) Fever (11) Rhabdomyolysis (12) Elevated troponin (13) KAREN (acute kidney injury) (14) Elevated brain natriuretic peptide (BNP) level (15) ESRD (end stage renal disease) on dialysis (16) Pressure ulcer (17) Protein calorie malnutrition (18) Dysphagia Review of Systems Review of Symptoms General ROS: no weight loss or fever Psychological ROS: no depression or mood changes, no memory loss Ophthalmic ROS: no visual changes or eye irritation ENT ROS: no nasal congestion, hearing loss, dizziness Allergy and Immunology ROS: no allergic symptoms or urticaria Hematological and Lymphatic ROS: no swollen glands, unusual bleeding or bruising Endocrine ROS: no polyuria, polydipsia, weight changes, temperature intolerance Respiratory ROS: no cough, shortness of breath, or wheezing Cardiovascular ROS: no chest pain or dyspnea on exertion Gastrointestinal ROS: denies abdominal pain, bright red blood in stool. Musculoskeletal ROS: no myalgias or arthralgias Neurological ROS: no TIA or stroke symptoms Dermatological ROS: no new or changing skin lesions, rashes or pruritis limited given mental status Physical Exam Physical Exam General appearance: alert, cooperative, no distress, appears stated age Head: Normocephalic, without obvious abnormality, atraumatic Eyes: conjunctivae/corneas clear. PERRL, EOM's intact. Fundi benign Throat: Lips, mucosa, and tongue normal. Teeth and gums normal Neck: supple, symmetrical, trachea midline, no adenopathy, thyroid: not enlarged, symmetric, no tenderness/mass/nodules, no carotid bruit and no JVD Lungs: clear to auscultation bilaterally Heart: regular rate and rhythm, S1, S2 normal, no murmur, click, rub or gallop Abdomen: soft, non-tender. Bowel sounds normal. No masses, no organomegaly Extremities: extremities normal, atraumatic, no cyanosis or edema Pulses: 2+ and symmetric Skin: Skin as below Neurologic: Grossly normal Last 24 Hour Vital Signs Date Time Temp Pulse Resp B/P (MAP) Pulse Ox O2 Delivery O2 Flow Rate FiO2 09/08/19 12:00 97.9 103 20 130/70 (90) 98 09/08/19 09:00 Room Air 09/08/19 08:54 108 137/78 09/08/19 08:00 108 09/08/19 08:00 98.0 108 20 137/78 (97) 99 09/08/19 04:00 98.2 98 20 133/76 (95) 100 09/08/19 04:00 97 09/08/19 01:53 Nasal Cannula 2.0 09/08/19 00:00 87 09/07/19 19:01 98.1 90 24 140/55 100 Nasal Cannula 2.0 09/07/19 17:56 97.2 93 20 156/72 (100) Intake and Output 09/07/19 09/08/19 19:00 07:00 Intake Total 450 ml Output Total 300 ml Balance 150 ml Intake Oral 400 ml Tube Feeding 50 ml Output Urine Total 300 ml Laboratory Tests Test 09/07/19 18:05 09/08/19 08:20 White Blood Count 9.6 K/UL (4.8-10.8) 11.7 K/UL (4.8-10.8) H Red Blood Count 2.67 M/UL (4.20-5.40) L 2.74 M/UL (4.20-5.40) L Hemoglobin 7.4 G/DL (12.0-16.0) L 7.9 G/DL (12.0-16.0) L Hematocrit 25.3 % (37.0-47.0) L 24.3 % (37.0-47.0) L Mean Corpuscular Volume 95 FL (80-99) 89 FL (80-99) Mean Corpuscular Hemoglobin 27.8 PG (27.0-31.0) 28.8 PG (27.0-31.0) Mean Corpuscular Hemoglobin Concent 29.4 G/DL (32.0-36.0) L 32.5 G/DL (32.0-36.0) Red Cell Distribution Width 17.4 % (11.6-14.8) H 16.4 % (11.6-14.8) H Platelet Count 337 K/UL (150-450) 370 K/UL (150-450) Mean Platelet Volume 7.7 FL (6.5-10.1) 6.0 FL (6.5-10.1) L Neutrophils (%) (Auto) % (45.0-75.0) % (45.0-75.0) Lymphocytes (%) (Auto) % (20.0-45.0) % (20.0-45.0) Monocytes (%) (Auto) % (1.0-10.0) % (1.0-10.0) Eosinophils (%) (Auto) % (0.0-3.0) % (0.0-3.0) Basophils (%) (Auto) % (0.0-2.0) % (0.0-2.0) Differential Total Cells Counted 100 100 Neutrophils % (Manual) 64 % (45-75) 77 % (45-75) H Lymphocytes % (Manual) 26 % (20-45) 18 % (20-45) L Monocytes % (Manual) 9 % (1-10) 4 % (1-10) Eosinophils % (Manual) 1 % (0-3) 1 % (0-3) Basophils % (Manual) 0 % (0-2) 0 % (0-2) Band Neutrophils 0 % (0-8) 0 % (0-8) Platelet Estimate Adequate Adequate Platelet Morphology Normal Normal Hypochromasia 2+ 1+ Anisocytosis 1+ 1+ Prothrombin Time 11.4 SEC (9.30-11.50) Prothromb Time International Ratio 1.0 (0.9-1.1) Activated Partial Thromboplast Time 34 SEC (23-33) H D-Dimer 3.59 mg/L FEU (0.00-0.49) H Urine Color Yellow Urine Appearance Cloudy Urine pH 8 (4.5-8.0) Urine Specific [place] 1.010 (1.005-1.035) Urine Protein 2+ (NEGATIVE) H Urine Glucose (UA) Negative (NEGATIVE) Urine Ketones Negative (NEGATIVE) Urine Blood 5+ (NEGATIVE) H Urine Nitrite Negative (NEGATIVE) Urine Bilirubin Negative (NEGATIVE) Urine Urobilinogen Normal MG/DL (0.0-1.0) Urine Leukocyte Esterase 3+ (NEGATIVE) H Urine RBC Tntc /HPF (0 - 2) H Urine WBC Tntc /HPF (0 - 2) H Urine Squamous Epithelial Cells Moderate /LPF (NONE/OCC) H Urine Bacteria Many /HPF (NONE) H Sodium Level 138 MMOL/L (136-145) 140 MMOL/L (136-145) Potassium Level 4.0 MMOL/L (3.5-5.1) 4.0 MMOL/L (3.5-5.1) Chloride Level 103 MMOL/L (98-107) 106 MMOL/L (98-107) Carbon Dioxide Level 26 MMOL/L (21-32) 25 MMOL/L (21-32) Anion Gap 9 mmol/L (5-15) 9 mmol/L (5-15) Blood Urea Nitrogen 7 mg/dL (7-18) 14 mg/dL (7-18) Creatinine 1.1 MG/DL (0.55-1.30) 1.7 MG/DL (0.55-1.30) #H Estimat Glomerular Filtration Rate 56.6 mL/min (>60) 34.3 mL/min (>60) Glucose Level 96 MG/DL (74-106) 130 MG/DL (74-106) H Lactic Acid Level 0.70 mmol/L (0.4-2.0) Calcium Level 8.3 MG/DL (8.5-10.1) L 8.6 MG/DL (8.5-10.1) Total Bilirubin 0.4 MG/DL (0.2-1.0) 0.4 MG/DL (0.2-1.0) Aspartate Amino Transf (AST/SGOT) 38 U/L (15-37) H 30 U/L (15-37) Alanine Aminotransferase (ALT/SGPT) 27 U/L (12-78) 26 U/L (12-78) Alkaline Phosphatase 71 U/L (46-116) 79 U/L (46-116) Total Creatine Kinase 405 U/L (26-308) H Creatine Kinase MB 4.1 NG/ML (0.0-3.6) H Creatine Kinase MB Relative Index 1.0 Troponin I 0.038 ng/mL (0.000-0.056) Pro-B-Type Natriuretic Peptide 6341 pg/mL (0-125) H Total Protein 6.4 G/DL (6.4-8.2) 6.3 G/DL (6.4-8.2) L Albumin 2.4 G/DL (3.4-5.0) L 2.4 G/DL (3.4-5.0) L Globulin 4.0 g/dL 3.9 g/dL Albumin/Globulin Ratio 0.6 (1.0-2.7) L 0.6 (1.0-2.7) L Polychromasia 1+ Phosphorus Level 1.8 MG/DL (2.5-4.9) L Magnesium Level 1.8 MG/DL (1.8-2.4) Iron Level 19 ug/dL (50-175) L Total Iron Binding Capacity 136 ug/dL (250-450) L Percent Iron Saturation 14 % (15-50) L Unsaturated Iron Binding 117 ug/dL (112-346) Vitamin B12 Level 1979 PG/ML (193-986) H Folate 39.1 NG/ML (8.6-58.9) Microbiology Date/Time Source Procedure Growth Status 09/07/19 18:05 Urine,Clean Catch Urine Culture - Preliminary Gram Negative Bacillus 1 Resulted 09/07/19 18:50 Rectum Received Height (Feet): 5 Height (Inches): 6.00 Weight (Pounds): 110 Medications Current Medications Medications (Trade) Dose Ordered Sig/Joan Route PRN Reason Start Time Stop Time Status Last Admin Dose Admin Acetaminophen (Tylenol) 650 mg Q4H PRN GT Mild Pain (Pain Scale 1-3) 09/08/19 06:15 10/08/19 03:29 Atorvastatin Calcium (Lipitor) 10 mg BEDTIME GT 09/08/19 21:00 12/07/19 20:59 Carvedilol (Coreg) 6.25 mg EVERY 12 HOURS GT 09/08/19 09:00 10/08/19 08:59 09/08/19 08:54 Ceftriaxone Sodium 1 gm/ Dextrose 55 ml @ 110 mls/hr Q24H IVPB 09/08/19 18:00 09/15/19 17:59 Epoetin Dion (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)) 4,000 unit MON-MON-MON SUBQ 09/09/19 21:00 12/08/19 20:59 Furosemide (Lasix) 40 mg TID GT 09/08/19 09:00 10/08/19 08:59 09/08/19 08:54 Gabapentin (Neurontin) 300 mg THREE TIMES A DAY GT 09/08/19 09:00 10/08/19 08:59 09/08/19 08:54 Iron Sucrose 100 mg/Sodium Chloride 60 ml @ 240 mls/hr BEDTIME IV 09/08/19:00 09/12/19 21:14 Loperamide HCl (Imodium) 2 mg Q4H PRN GT Diarrhea 09/08/19 06:15 10/08/19 03:44 Assessment/Plan Problem List: (1) COVID-19 ruled out Assessment & Plan: FINDINGS: Lungs: Left basilar opacity with volume loss, likely atelectasis however a focus of infection could have a similar appearance. Pleural space: No pleural effusion. No pneumothorax. Heart: Unremarkable. No cardiomegaly. Bones/joints: No fracture. Vasculature: Atherosclerotic calcifications. Tubes, lines and devices: Right IJ large bore dialysis catheter terminates within the right atrium. IMPRESSION: Left basilar opacity with volume loss, likely atelectasis however a focus of infection could have a similar appearance. leukocytosis anemia pending test ICD Codes: Z03.818 - Encounter for observation for suspected exposure to other biological agents ruled out SNOMED: 600889093, 788582829 (2) Protein calorie malnutrition ICD Codes: E46 - Unspecified protein-calorie malnutrition SNOMED: 990260394 (3) Pressure ulcer ICD Codes: L89.90 - Pressure ulcer of unspecified site, unspecified stage SNOMED: 241181220 (4) Decubitus skin ulcer Assessment & Plan: Pt presented on admission with multiple pressure injuries. Unstageable pressure injury R shoulder(L)3.8cm x (W)3.3cm. Base of wound is 100 % necrotic and dry. Marginal erythema along borders. No erythema or induration periwound. Reabsorbed DTPI R Humerus. Base of injury has dry peeling brown skin with underlying dry pink epithelial. R elbow pressure injury has resolved. Full thickness pressure injury R hip (L)7cm x (W)13.1cm. Base of wound is 70% fibrinous slough,10% necrotic ,20% moist pink granulation. Edges are macerated.Small amt seropurulent non-odorous exudate noted. NO erythema , induration or elevation in skin temp periwound. Opened DTPI Sacrum(L)9cm x (W)15cm. Base of wound is purple,indurated with an open wound at sacrococcygeal which has 100% slough(L)1.6cm x (W)1cm. Surrounding Skin hypopigmentation with areas of excoriation extending into perineum and perianal area. Unstageable pressure injury lateral R malleolus(L)2.5cm x (W)3cm. Base of wound is 100% dry necrosis. Edges adherent to base of wound. No erythema induration or fluctuance periwound. Reabsorbing DTPI R heel. Base of Heel is boggy,non-blanching erythema with dry peeling brown skin along edges.(L)4.2cm x (W)6cm. Resolving DTPI distal/lateral R foot. Stable dry brown eschar without fluctuance or induration(L)1cm x (W)1.5cm. Resolving DTPI Lateral R 5th metatarsal.Base of injury is dry,brown without fluctuance or induration.(L)0.6cm x (W)1cm Unstageable pressure injury L Hallux(L)4cm x (W)2.7cm. Base of wound is 80% necrotic,20% slough with marginal erythema along borders. No odor or exudate noted. DTPI L Heel. Base of injury maroon and fluctuant. Periwound is boggy but blanchable(L)5.5cm x (W)6.5cm. Tx.Plan: Cleanse R shoulder with Saline. Apply Therahoney. Apply Cavilon Periwound. Cover with Optifoam drsg. Change every 3 days and prn. Cleanse R hip with Saline. Apply Therahoney.Apply Moisture Barrier Periwound. Cover with Optifoam drsg. Change Daily and prn. Cleanse Sacrum with Saline. Apply Therahoney. Apply Moisture Barrier Paste periwound. Cover with Optifoam drsg. Change every 3 days and prn. Apply Moisture Barrier Paste to perineum and perianal areas with each incontinence care. Apply Betadine to R heel,Distal/lateral R foot ,R5th metatarsal. Cover with Optifoam drsg. Change every 3 days and prn. Apply Betadine to L hallux,and L heel. Cover each site with Optifoam drsg. Change every 3 days and prn. Reposition at least every 2hours or as tolerated. Place pillow between knees. off-load heels with pillow. ICD Codes: L89.90 - Pressure ulcer of unspecified site, unspecified stage SNOMED: 743231646 (5) Suspected COVID-19 virus infection ICD Codes: Z20.828 - Contact with and (suspected) exposure to other viral communicable diseases SNOMED: 181525613 Anshul Nava September 08, 2019 12:47
--- NOTE | 2019-09-08 14:14 | Cardiac Electrophysiology PN ---
Subjective Subjective [id number] Objective Last 24 Hour Vital Signs Date Time Temp Pulse Resp B/P (MAP) Pulse Ox O2 Delivery O2 Flow Rate FiO2 09/08/19 12:00 97.9 103 20 130/70 (90) 98 09/08/19 12:00 101 09/08/19 09:00 Room Air 09/08/19 08:54 108 137/78 09/08/19 08:00 108 09/08/19 08:00 98.0 108 20 137/78 (97) 99 09/08/19 04:00 98.2 98 20 133/76 (95) 100 09/08/19 04:00 97 09/08/19 01:53 Nasal Cannula 2.0 09/08/19 00:00 87 09/07/19 19:01 98.1 90 24 140/55 100 Nasal Cannula 2.0 09/07/19 17:56 97.2 93 20 156/72 (100) Intake and Output 09/07/19 09/08/19 19:00 07:00 Intake Total 450 ml Output Total 300 ml Balance 150 ml Intake Oral 400 ml Tube Feeding 50 ml Output Urine Total 300 ml Laboratory Tests Test 09/07/19 18:05 09/08/19 08:20 White Blood Count 9.6 K/UL (4.8-10.8) 11.7 K/UL (4.8-10.8) H Red Blood Count 2.67 M/UL (4.20-5.40) L 2.74 M/UL (4.20-5.40) L Hemoglobin 7.4 G/DL (12.0-16.0) L 7.9 G/DL (12.0-16.0) L Hematocrit 25.3 % (37.0-47.0) L 24.3 % (37.0-47.0) L Mean Corpuscular Volume 95 FL (80-99) 89 FL (80-99) Mean Corpuscular Hemoglobin 27.8 PG (27.0-31.0) 28.8 PG (27.0-31.0) Mean Corpuscular Hemoglobin Concent 29.4 G/DL (32.0-36.0) L 32.5 G/DL (32.0-36.0) Red Cell Distribution Width 17.4 % (11.6-14.8) H 16.4 % (11.6-14.8) H Platelet Count 337 K/UL (150-450) 370 K/UL (150-450) Mean Platelet Volume 7.7 FL (6.5-10.1) 6.0 FL (6.5-10.1) L Neutrophils (%) (Auto) % (45.0-75.0) % (45.0-75.0) Lymphocytes (%) (Auto) % (20.0-45.0) % (20.0-45.0) Monocytes (%) (Auto) % (1.0-10.0) % (1.0-10.0) Eosinophils (%) (Auto) % (0.0-3.0) % (0.0-3.0) Basophils (%) (Auto) % (0.0-2.0) % (0.0-2.0) Differential Total Cells Counted 100 100 Neutrophils % (Manual) 64 % (45-75) 77 % (45-75) H Lymphocytes % (Manual) 26 % (20-45) 18 % (20-45) L Monocytes % (Manual) 9 % (1-10) 4 % (1-10) Eosinophils % (Manual) 1 % (0-3) 1 % (0-3) Basophils % (Manual) 0 % (0-2) 0 % (0-2) Band Neutrophils 0 % (0-8) 0 % (0-8) Platelet Estimate Adequate Adequate Platelet Morphology Normal Normal Hypochromasia 2+ 1+ Anisocytosis 1+ 1+ Prothrombin Time 11.4 SEC (9.30-11.50) Prothromb Time International Ratio 1.0 (0.9-1.1) Activated Partial Thromboplast Time 34 SEC (23-33) H D-Dimer 3.59 mg/L FEU (0.00-0.49) H Urine Color Yellow Urine Appearance Cloudy Urine pH 8 (4.5-8.0) Urine Specific Fossil 1.010 (1.005-1.035) Urine Protein 2+ (NEGATIVE) H Urine Glucose (UA) Negative (NEGATIVE) Urine Ketones Negative (NEGATIVE) Urine Blood 5+ (NEGATIVE) H Urine Nitrite Negative (NEGATIVE) Urine Bilirubin Negative (NEGATIVE) Urine Urobilinogen Normal MG/DL (0.0-1.0) Urine Leukocyte Esterase 3+ (NEGATIVE) H Urine RBC Tntc /HPF (0 - 2) H Urine WBC Tntc /HPF (0 - 2) H Urine Squamous Epithelial Cells Moderate /LPF (NONE/OCC) H Urine Bacteria Many /HPF (NONE) H Sodium Level 138 MMOL/L (136-145) 140 MMOL/L (136-145) Potassium Level 4.0 MMOL/L (3.5-5.1) 4.0 MMOL/L (3.5-5.1) Chloride Level 103 MMOL/L (98-107) 106 MMOL/L (98-107) Carbon Dioxide Level 26 MMOL/L (21-32) 25 MMOL/L (21-32) Anion Gap 9 mmol/L (5-15) 9 mmol/L (5-15) Blood Urea Nitrogen 7 mg/dL (7-18) 14 mg/dL (7-18) Creatinine 1.1 MG/DL (0.55-1.30) 1.7 MG/DL (0.55-1.30) #H Estimat Glomerular Filtration Rate 56.6 mL/min (>60) 34.3 mL/min (>60) Glucose Level 96 MG/DL (74-106) 130 MG/DL (74-106) H Lactic Acid Level 0.70 mmol/L (0.4-2.0) Calcium Level 8.3 MG/DL (8.5-10.1) L 8.6 MG/DL (8.5-10.1) Total Bilirubin 0.4 MG/DL (0.2-1.0) 0.4 MG/DL (0.2-1.0) Aspartate Amino Transf (AST/SGOT) 38 U/L (15-37) H 30 U/L (15-37) Alanine Aminotransferase (ALT/SGPT) 27 U/L (12-78) 26 U/L (12-78) Alkaline Phosphatase 71 U/L (46-116) 79 U/L (46-116) Total Creatine Kinase 405 U/L (26-308) H Creatine Kinase MB 4.1 NG/ML (0.0-3.6) H Creatine Kinase MB Relative Index 1.0 Troponin I 0.038 ng/mL (0.000-0.056) Pro-B-Type Natriuretic Peptide 6341 pg/mL (0-125) H Total Protein 6.4 G/DL (6.4-8.2) 6.3 G/DL (6.4-8.2) L Albumin 2.4 G/DL (3.4-5.0) L 2.4 G/DL (3.4-5.0) L Globulin 4.0 g/dL 3.9 g/dL Albumin/Globulin Ratio 0.6 (1.0-2.7) L 0.6 (1.0-2.7) L Polychromasia 1+ Phosphorus Level 1.8 MG/DL (2.5-4.9) L Magnesium Level 1.8 MG/DL (1.8-2.4) Iron Level 19 ug/dL (50-175) L Total Iron Binding Capacity 136 ug/dL (250-450) L Percent Iron Saturation 14 % (15-50) L Unsaturated Iron Binding 117 ug/dL (112-346) Vitamin B12 Level 1979 PG/ML (193-986) H Folate 39.1 NG/ML (8.6-58.9) Microbiology Date/Time Source Procedure Growth Status 09/07/19 18:05 Urine,Clean Catch Urine Culture - Preliminary Gram Negative Bacillus 1 Resulted 09/07/19 18:50 Rectum Received Cristopher Osman MD September 08, 2019 14:14
[2019-09-08 16:00] VITALS: BP 132/66
[2019-09-08] MEDS ORDERED: cefTRIAXone 1 GM in D5W 55 ML IVPB SCH (18:00)
--- NOTE | 2019-09-08 19:14 | Consultation ---
DATE OF CONSULTATION: 09/08/2019 CARDIOLOGY CONSULTATION CONSULTING PHYSICIAN: Cristopher Osman MD. REFERRING PHYSICIAN: Meera Frederick MD. REASON FOR CONSULTATION: Hypertension and congestive heart failure. HISTORY OF PRESENT ILLNESS: Patient is an 89-year-old lady with history of hypertension, end-stage renal disease on hemodialysis, dysphagia status post PEG placement, as well as multiple pressure ulcers who was brought in from dialysis centre because patient was found to have a hemoglobin of only 6. Patient is nonverbal, immobile, and is a [facility] resident. Information was obtained by reviewing the patient's records and discussion with patient's nurse at the bedside. Patient was recently hospitalized at [facility] with Pseudomonas pneumonia and received antibiotic. In the emergency room, blood pressure was 56/72, hemoglobin was 7.4, and had clear UTI. Patient was admitted and be ruled out for COVID-19 and a Cardiology consultation was obtained for further evaluation. REVIEW OF SYSTEMS: Cannot be obtained. PAST MEDICAL HISTORY: As mentioned above. FAMILY HISTORY: Noncontributory. SOCIAL HISTORY: detention resident. Does smoke or drink alcohol. MEDICATIONS: Include Coreg, Lasix, gabapentin, and Lipitor. PHYSICAL EXAMINATION: VITAL SIGNS: Show blood pressure of 130/70, pulse is 103, respirations 18, temperature 98. HEAD AND NECK: Shows no JVD. LUNGS: Coarse rhonchi. CARDIOVASCULAR: Shows regular S1 and S2 with no gallop. ABDOMEN: Status post G-tube. EXTREMITIES: No pitting edema. LABORATORY AND DIAGNOSTIC DATA: Labs show white count of 11.9, hematocrit of 7.4, hematocrit of 25, and platelet count is 337. Sodium is 140, potassium 4.0, BUN of 14, creatinine 1.7, and glucose of 130. Troponin is negative. BNP 6341. ASSESSMENT AND PLAN: 1. Volume overload with BNP of more than 6000. Likely due to end-stage renal disease. I will get an echocardiogram for further evaluation and completely rule out SC protocol. 2. Hypertension. Continue Coreg 6.25 mg b.i.d. and Lasix 40 t.i.d. Further evaluation by Nephrology. 3. Elevated white count and UTI. She was already started on antibiotics. 4. Dysphagia, status post PEG placement. 5. Leukocytosis, on ceftriaxone per Dr. Rosado. 6. Dementia. Thank you very much for allowing me to participate in the care of this patient. Please do not hesitate to contact me for any questions regarding my evaluation. Cristopher Osman M.D. DR: DANI JOB#: [id number] CC:
--- NOTE | 2019-09-08 19:19 | General Progress Note ---
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 Patient is being placed in observation unit for further medical work up #ESRD on HD #Acute on chronic anemia, now resolved #Anemia of ESRD -Serum hgb:7.4 -Continue to monitor; CBC Q 8H -cont. to monitor for signs/symptoms of bleeding -Transfuse for hgb <7.0 -EPOGEN per nephro -Dr. Oconnor (nephrology) on board. Appreciate further recommendations. #Urinary tract infection-Complicated: #Indwelling Sanchez catheter -Highly elevated WBC and RBC on UA; 3+ LE -Empiric tx with IV Rocephin. -Appreciate ID recommendations. D/w Dr. Lynn #HTN #elevated troponin #Elevated BNP -trops stable at baseline -likely due to demand ischemia, ESRD, sepsis -ASA, statin -Resume home Lasix -hydralazine PRN for SBP >160 -Carvedilol 6.25 mg BID -Cardio following consult in the A.M. #Dysphagia -s/p PEG -tolerating TF -Dietary and GI following, recs appreciated #Advanced Dementia -stable -neuro following, appreciate recs #Pressure wounds -Will consult wound care F: Tube feeding E:Monitor and replete PRN N: Tube feeding. Spent 40 minutes on the patient's case and 22 on counseling and care coordination. Case discussed with RN at the bedside, nephrology. Case discussed with Consultants on the phone. Subjective Date patient seen: September 08, 2019 Allergies: Coded Allergies: No Known Allergies (Unverified , 06/24/19) All Systems: reviewed and negative except above - All 12 point ROS negative Subjective Chart reviewed. No acute events overnight per nursing. Patient's hgb stable now. No signs of bleeding. Plan for HD per nephrology. Feeling better overall. No other complaints. Denies chest pain, SOB, fever or chills Objective Last 24 Hour Vital Signs Date Time Temp Pulse Resp B/P (MAP) Pulse Ox O2 Delivery O2 Flow Rate FiO2 09/08/19 16:00 100 09/08/19 16:00 98.6 102 20 132/66 (88) 97 09/08/19 12:00 97.9 103 20 130/70 (90) 98 09/08/19 12:00 101 09/08/19 09:00 Room Air 09/08/19 08:54 108 137/78 09/08/19 08:00 108 09/08/19 08:00 98.0 108 20 137/78 (97) 99 09/08/19 04:00 98.2 98 20 133/76 (95) 100 09/08/19 04:00 97 09/08/19 01:53 Nasal Cannula 2.0 09/08/19 00:00 87 Intake and Output 09/07/19 09/08/19 19:00 07:00 Intake Total 450 ml Output Total 300 ml Balance 150 ml Intake Oral 400 ml Tube Feeding 50 ml Output Urine Total 300 ml Laboratory Tests 09/08/19 08:20: White Blood Count 11.7H, Red Blood Count 2.74L, Hemoglobin 7.9L, Hematocrit 24.3L, Mean Corpuscular Volume 89, Mean Corpuscular Hemoglobin 28.8, Mean Corpuscular Hemoglobin Concent 32.5, Red Cell Distribution Width 16.4H, Platelet Count 370, Mean Platelet Volume 6.0L, Neutrophils (%) (Auto) , Lymphocytes (%) (Auto) , Monocytes (%) (Auto) , Eosinophils (%) (Auto) , Basophils (%) (Auto) , Differential Total Cells Counted 100, Neutrophils % ( Manual) 77H, Lymphocytes % (Manual) 18L, Monocytes % (Manual) 4, Eosinophils % ( Manual) 1, Basophils % (Manual) 0, Band Neutrophils 0, Platelet Estimate Adequate, Platelet Morphology Normal, Polychromasia 1+, Hypochromasia 1+, Anisocytosis 1+, Sodium Level 140, Potassium Level 4.0, Chloride Level 106, Carbon Dioxide Level 25, Anion Gap 9, Blood Urea Nitrogen 14, Creatinine 1.7#H, Estimat Glomerular Filtration Rate 34.3, Glucose Level 130H, Calcium Level 8.6, Phosphorus Level 1.8L, Magnesium Level 1.8, Iron Level 19L, Total Iron Binding Capacity 136L, Percent Iron Saturation 14L, Unsaturated Iron Binding 117, Total Bilirubin 0.4, Aspartate Amino Transf (AST/SGOT) 30, Alanine Aminotransferase ( ALT/SGPT) 26, Alkaline Phosphatase 79, Total Protein 6.3L, Albumin 2.4L, Globulin 3.9, Albumin/Globulin Ratio 0.6L, Vitamin B12 Level 1978H, Folate 39.1 09/08/19 14:20: Stool Occult Blood [Pending] Height (Feet): 5 Height (Inches): 6.00 Weight (Pounds): 110 General Appearance: WD/WN, no apparent distress, alert EENT: PERRL/EOMI, normal ENT inspection Neck: non-tender, normal alignment, supple Cardiovascular: normal peripheral pulses, normal rate, regular rhythm Respiratory/Chest: chest wall non-tender, lungs clear, normal breath sounds Abdomen: normal bowel sounds, non tender, soft, no organomegaly, no mass Extremities: normal range of motion, no calf tenderness Edema: other - no LE edema bilaterally Neurologic: small stock facer 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 normal, no motor/sensory deficits, alert, oriented x 3, responsive, normal mood/affect Skin: normal pigmentation, warm/dry Sanchez Neri D.O. September 08, 2019 19:19
[2019-09-08 20:00] VITALS: BP 103/63
[2019-09-08] MEDS: Iron Sucrose 100 MG in NS 55 ML IV SCH (21:00)
[2019-09-08] MEDS: Heparin 5000 units/ml inj SUBQ SCH (21:42)
[2019-09-09] VITALS: BP 100/60
[2019-09-09] MEDS: Acetaminophen 650mg/20.3ml GT PRN (00:57)
[2019-09-09 04:00] VITALS: BP 101/62
[2019-09-09 07:01] LABS: HEMATOCRIT 22.6 % (37.0-47.0); HEMOGLOBIN 7.1 G/DL (12.0-16.0); MEAN CORPUSCULAR VOLUME 89 FL (80-99); PLATELET COUNT 350 K/UL (150-450); RED BLOOD COUNT 2.53 M/UL (4.20-5.40); RED CELL DISTRIBUTION WIDTH 16.4 % (11.6-14.8); WHITE BLOOD COUNT 12.4 K/UL (4.8-10.8)
[2019-09-09 07:16] LABS: ANION GAP 8 mmol/L (5-15); BLOOD UREA NITROGEN 28 mg/dL (7-18); CALCIUM 8.3 MG/DL (8.5-10.1); CARBON DIOXIDE 28 MMOL/L (21-32); CHLORIDE 107 MMOL/L (98-107); CREATININE 2.6 MG/DL (0.55-1.30); POTASSIUM 3.8 MMOL/L (3.5-5.1); SODIUM 143 MMOL/L (136-145)
[2019-09-09 07:33] LABS: PHOSPHORUS 1.7 MG/DL (2.5-4.9)
[2019-09-09 08:00] VITALS: BP 122/54
--- NOTE | 2019-09-09 09:37 | Cardiac Electrophysiology PN ---
Assessment/Plan Assessment/Plan 1. BNP of more than 6000.Clinically Euvolemic. Echocardiogram pending. Ruled out for [place] 2. Hypertension. Continue Coreg 6.25 mg b.i.d. and DC Lasix as creatinine is rising 3. Elevated white count and UTI. on ceftriaxone per Dr. Rosado. 4. Dysphagia, status post PEG placement. 5. Dementia. 6. Azotemia Cr 1.1 to 2.6. DC Lasix Subjective Subjective No new events. Nonverbal. Objective Last 24 Hour Vital Signs Date Time Temp Pulse Resp B/P (MAP) Pulse Ox O2 Delivery O2 Flow Rate FiO2 09/09/19 04:00 91 09/09/19 04:00 98.8 93 19 101/62 (75) 99 09/09/19 01:30 99.0 09/09/19 00:00 100.0 106 20 100/60 (73) 95 09/09/19 00:00 104 09/08/19 21:00 107 103/63 09/08/19 21:00 Room Air 09/08/19 20:00 105 09/08/19 20:00 99.0 107 19 103/63 (76) 100 09/08/19 16:00 100 09/08/19 16:00 98.6 102 20 132/66 (88) 97 09/08/19 12:00 97.9 103 20 130/70 (90) 98 09/08/19 12:00 101 Intake and Output 09/08/19 09/09/19 19:00 07:00 Output Total 200 ml 300 ml Balance -200 ml -300 ml Output Urine Total 200 ml 300 ml # Bowel Movements 1 1 Laboratory Tests Test 09/08/19 14:20 09/09/19 06:10 Stool Occult Blood Pending White Blood Count 12.4 K/UL (4.8-10.8) H Red Blood Count 2.53 M/UL (4.20-5.40) L Hemoglobin 7.1 G/DL (12.0-16.0) L Hematocrit 22.6 % (37.0-47.0) L Mean Corpuscular Volume 89 FL (80-99) Mean Corpuscular Hemoglobin 28.0 PG (27.0-31.0) Mean Corpuscular Hemoglobin Concent 31.4 G/DL (32.0-36.0) L Red Cell Distribution Width 16.4 % (11.6-14.8) H Platelet Count 350 K/UL (150-450) Mean Platelet Volume 5.7 FL (6.5-10.1) L Neutrophils (%) (Auto) % (45.0-75.0) Lymphocytes (%) (Auto) % (20.0-45.0) Monocytes (%) (Auto) % (1.0-10.0) Eosinophils (%) (Auto) % (0.0-3.0) Basophils (%) (Auto) % (0.0-2.0) Neutrophils % (Manual) Pending Lymphocytes % (Manual) Pending Platelet Estimate Pending Platelet Morphology Pending Sodium Level 143 MMOL/L (136-145) Potassium Level 3.8 MMOL/L (3.5-5.1) Chloride Level 107 MMOL/L (98-107) Carbon Dioxide Level 28 MMOL/L (21-32) Anion Gap 8 mmol/L (5-15) Blood Urea Nitrogen 28 mg/dL (7-18) H Creatinine 2.6 MG/DL (0.55-1.30) #H Estimat Glomerular Filtration Rate 21.1 mL/min (>60) Glucose Level 127 MG/DL (74-106) H Calcium Level 8.3 MG/DL (8.5-10.1) L Phosphorus Level 1.7 MG/DL (2.5-4.9) L Magnesium Level 2.0 MG/DL (1.8-2.4) Ferritin 1687 NG/ML (8-388) H Troponin I 0.028 ng/mL (0.000-0.056) Pro-B-Type Natriuretic Peptide 8161 pg/mL (0-125) H Microbiology Date/Time Source Procedure Growth Status 09/07/19 18:05 Blood Blood Culture - Preliminary NO GROWTH AFTER 24 HOURS Resulted 09/07/19 17:40 Blood Blood Culture - Preliminary NO GROWTH AFTER 24 HOURS Resulted 09/08/19 07:30 Wound Gram Stain - Final Resulted 09/08/19 07:30 Wound Wound Culture - Preliminary NO GROWTH Resulted 09/07/19 18:50 Nasal Nares MRSA Culture - Final NO METHICILLIN RESISTANT STAPH AUREUS... Complete 09/07/19 18:05 Urine,Clean Catch Urine Culture - Preliminary Klebsiella Pneumoniae Esbl Resulted 09/07/19 18:50 Rectum VRE Culture - Final Enterococcus Faecium - Vre Enterococcus Faecalis - Vre Complete Objective HEAD AND NECK: Shows no JVD. LUNGS: Coarse rhonchi. CARDIOVASCULAR: Shows regular S1 and S2 with no gallop. ABDOMEN: Status post G-tube. EXTREMITIES: No pitting edema. Cristopher Osman MD September 09, 2019 09:37
--- NOTE | 2019-09-09 09:46 | Cardiac Electrophysiology PN ---
Assessment/Plan Assessment/Plan 1. BNP of more than 6000. Clinically Euvolemic. Had HD on Monday. Echocardiogram pending. Ruled out for [place] 2. Hypertension. Continue Coreg 6.25 mg b.i.d. and hold Lasix 3. Elevated white count and UTI. On Ceftriaxone per Dr. Rosado. 4. Dysphagia, status post PEG placement. 5. Dementia. 6. CKD had HD on Monday per Dr. Bowen. BUN and Cr rising. Hold Lasix for now DW Dr. Bowen Subjective Subjective No new events. Nonverbal. Objective Last 24 Hour Vital Signs Date Time Temp Pulse Resp B/P (MAP) Pulse Ox O2 Delivery O2 Flow Rate FiO2 09/09/19 04:00 91 09/09/19 04:00 98.8 93 19 101/62 (75) 99 09/09/19 01:30 99.0 09/09/19 00:00 100.0 106 20 100/60 (73) 95 09/09/19 00:00 104 09/08/19 21:00 107 103/63 09/08/19 21:00 Room Air 09/08/19 20:00 105 09/08/19 20:00 99.0 107 19 103/63 (76) 100 09/08/19 16:00 100 09/08/19 16:00 98.6 102 20 132/66 (88) 97 09/08/19 12:00 97.9 103 20 130/70 (90) 98 09/08/19 12:00 101 Intake and Output 09/08/19 09/09/19 19:00 07:00 Output Total 200 ml 300 ml Balance -200 ml -300 ml Output Urine Total 200 ml 300 ml # Bowel Movements 1 1 Laboratory Tests Test 09/08/19 14:20 09/09/19 06:10 Stool Occult Blood Pending White Blood Count 12.4 K/UL (4.8-10.8) H Red Blood Count 2.53 M/UL (4.20-5.40) L Hemoglobin 7.1 G/DL (12.0-16.0) L Hematocrit 22.6 % (37.0-47.0) L Mean Corpuscular Volume 89 FL (80-99) Mean Corpuscular Hemoglobin 28.0 PG (27.0-31.0) Mean Corpuscular Hemoglobin Concent 31.4 G/DL (32.0-36.0) L Red Cell Distribution Width 16.4 % (11.6-14.8) H Platelet Count 350 K/UL (150-450) Mean Platelet Volume 5.7 FL (6.5-10.1) L Neutrophils (%) (Auto) % (45.0-75.0) Lymphocytes (%) (Auto) % (20.0-45.0) Monocytes (%) (Auto) % (1.0-10.0) Eosinophils (%) (Auto) % (0.0-3.0) Basophils (%) (Auto) % (0.0-2.0) Neutrophils % (Manual) Pending Lymphocytes % (Manual) Pending Platelet Estimate Pending Platelet Morphology Pending Sodium Level 143 MMOL/L (136-145) Potassium Level 3.8 MMOL/L (3.5-5.1) Chloride Level 107 MMOL/L (98-107) Carbon Dioxide Level 28 MMOL/L (21-32) Anion Gap 8 mmol/L (5-15) Blood Urea Nitrogen 28 mg/dL (7-18) H Creatinine 2.6 MG/DL (0.55-1.30) #H Estimat Glomerular Filtration Rate 21.1 mL/min (>60) Glucose Level 127 MG/DL (74-106) H Calcium Level 8.3 MG/DL (8.5-10.1) L Phosphorus Level 1.7 MG/DL (2.5-4.9) L Magnesium Level 2.0 MG/DL (1.8-2.4) Ferritin 1687 NG/ML (8-388) H Troponin I 0.028 ng/mL (0.000-0.056) Pro-B-Type Natriuretic Peptide 8161 pg/mL (0-125) H Microbiology Date/Time Source Procedure Growth Status 09/07/19 18:05 Blood Blood Culture - Preliminary NO GROWTH AFTER 24 HOURS Resulted 09/07/19 17:40 Blood Blood Culture - Preliminary NO GROWTH AFTER 24 HOURS Resulted 09/08/19 07:30 Wound Gram Stain - Final Resulted 09/08/19 07:30 Wound Wound Culture - Preliminary NO GROWTH Resulted 09/07/19 18:50 Nasal Nares MRSA Culture - Final NO METHICILLIN RESISTANT STAPH AUREUS... Complete 09/07/19 18:05 Urine,Clean Catch Urine Culture - Preliminary Klebsiella Pneumoniae Esbl Resulted 09/07/19 18:50 Rectum VRE Culture - Final Enterococcus Faecium - Vre Enterococcus Faecalis - Vre Complete Objective HEAD AND NECK: Shows no JVD. LUNGS: Coarse rhonchi. CARDIOVASCULAR: Shows regular S1 and S2 with no gallop. ABDOMEN: Status post G-tube. EXTREMITIES: No pitting edema. Cristopher Osman MD September 09, 2019 09:46
[2019-09-09] MEDS: Carvedilol 6.25mg Tab GT SCH ×2 (10:03→22:04)
[2019-09-09] MEDS: Heparin 5000 units/ml inj SUBQ SCH ×2 (10:05→21:00)
--- NOTE | 2019-09-09 10:26 | General Progress Note ---
Assessment/Plan Assessment/Plan: Assessment/Plan Status: stable Assessment/Plan: 1. End-stage renal disease, on hemodialysis. 2. Anemia iron def 3. Dysphagia, status post G-tube placement. 4. Pneumonia. 5. Pancreatic cyst. 6. Hypertension. 7. elevated CEA of 10 8. CAD 9. UTI chart from prior admissions reviewed iv iron repeat stool ob transfuse to keep HGB above 7 GTF 40 cc HD per nephrology will fu Subjective ROS Limited/Unobtainable: No Allergies: Coded Allergies: No Known Allergies (Unverified , 06/24/19) Objective Last 24 Hour Vital Signs Date Time Temp Pulse Resp B/P (MAP) Pulse Ox O2 Delivery O2 Flow Rate FiO2 09/09/19 10:03 95 122/54 09/09/19 08:00 98.6 95 19 122/54 (76) 100 09/09/19 04:00 91 09/09/19 04:00 98.8 93 19 101/62 (75) 99 09/09/19 01:30 99.0 09/09/19 00:00 100.0 106 20 100/60 (73) 95 09/09/19 00:00 104 09/08/19 21:00 107 103/63 09/08/19 21:00 Room Air 09/08/19 20:00 105 09/08/19 20:00 99.0 107 19 103/63 (76) 100 09/08/19 16:00 100 09/08/19 16:00 98.6 102 20 132/66 (88) 97 09/08/19 12:00 97.9 103 20 130/70 (90) 98 09/08/19 12:00 101 Intake and Output 09/08/19 09/09/19 19:00 07:00 Output Total 200 ml 300 ml Balance -200 ml -300 ml Output Urine Total 200 ml 300 ml # Bowel Movements 1 1 Laboratory Tests 09/08/19 14:20: Stool Occult Blood [Pending] 09/09/19 06:10: White Blood Count 12.4H, Red Blood Count 2.53L, Hemoglobin 7.1L, Hematocrit 22.6L, Mean Corpuscular Volume 89, Mean Corpuscular Hemoglobin 28.0, Mean Corpuscular Hemoglobin Concent 31.4L, Red Cell Distribution Width 16.4H, Platelet Count 350, Mean Platelet Volume 5.7L, Neutrophils (%) (Auto) , Lymphocytes (%) (Auto) , Monocytes (%) (Auto) , Eosinophils (%) (Auto) , Basophils (%) (Auto) , Differential Total Cells Counted 100, Neutrophils % ( Manual) 65, Lymphocytes % (Manual) 28, Monocytes % (Manual) 5, Eosinophils % ( Manual) 2, Basophils % (Manual) 0, Band Neutrophils 0, Platelet Estimate Adequate, Platelet Morphology Normal, Polychromasia 1+, Hypochromasia 2+, Anisocytosis 1+, Sodium Level 143, Potassium Level 3.8, Chloride Level 107, Carbon Dioxide Level 28, Anion Gap 8, Blood Urea Nitrogen 28H, Creatinine 2.6#H , Estimat Glomerular Filtration Rate 21.1, Glucose Level 127H, Calcium Level 8.3L, Phosphorus Level 1.7L, Magnesium Level 2.0, Ferritin 1687H, Troponin I 0.028, Pro-B-Type Natriuretic Peptide 8161H Height (Feet): 5 Height (Inches): 6.00 Weight (Pounds): 110 General Appearance: no apparent distress EENT: normal ENT inspection Neck: supple Cardiovascular: normal rate Respiratory/Chest: decreased breath sounds Abdomen: normal bowel sounds, non tender, soft Extremities: non-tender Jun Mena MD September 09, 2019 10:26
--- NOTE | 2019-09-09 10:36 | Consultation ---
History of Present Illness General Chief Complaint: Abnormal Labs Reason for Consultation: ESRD on HD Present Illness Allergies: Coded Allergies: No Known Allergies (Unverified , 06/24/19) Medication History Scheduled Atorvastatin Calcium* (Lipitor*), 10 MG GT QHS Carvedilol (Coreg), 6.25 MG ORAL EVERY 12 HOURS Furosemide* (Lasix*), 40 MG GT DAILY, (Reported) Gabapentin (Gabapentin), 300 MG GT BID, (Reported) Micafungin (Mycamine), 100 MG IVPB Q24H Vgjcdrdinfqm-Xeza-Buzzuiei,Iso (Zosyn 3.375 Gm Pre Mix-Bag), 3.375 GM IVPB EVERY 8 HOURS Scheduled PRN Acetaminophen* (Acetaminophen 325MG Tablet*), 650 MG ORAL Q6H PRN for Mild Pain (Pain Scale 1-3), (Reported) Loperamide Hcl (Loperamide), 2 MG NG Q6H PRN [Amikacin Rx to dose], 1 EA MISC DAILY PRN Patient History Healthcare decision maker Resuscitation status Advanced Directive on File Physical Exam Last 24 Hour Vital Signs Date Time Temp Pulse Resp B/P (MAP) Pulse Ox O2 Delivery O2 Flow Rate FiO2 09/09/19 10:03 95 122/54 09/09/19 08:00 98.6 95 19 122/54 (76) 100 09/09/19 04:00 91 09/09/19 04:00 98.8 93 19 101/62 (75) 99 09/09/19 01:30 99.0 09/09/19 00:00 100.0 106 20 100/60 (73) 95 09/09/19 00:00 104 09/08/19 21:00 107 103/63 09/08/19 21:00 Room Air 09/08/19 20:00 105 09/08/19 20:00 99.0 107 19 103/63 (76) 100 09/08/19 16:00 100 09/08/19 16:00 98.6 102 20 132/66 (88) 97 09/08/19 12:00 97.9 103 20 130/70 (90) 98 09/08/19 12:00 101 Intake and Output 09/08/19 09/09/19 19:00 07:00 Output Total 200 ml 300 ml Balance -200 ml -300 ml Output Urine Total 200 ml 300 ml # Bowel Movements 1 1 Laboratory Tests Test 09/08/19 14:20 09/09/19 06:10 Stool Occult Blood Pending White Blood Count 12.4 K/UL (4.8-10.8) H Red Blood Count 2.53 M/UL (4.20-5.40) L Hemoglobin 7.1 G/DL (12.0-16.0) L Hematocrit 22.6 % (37.0-47.0) L Mean Corpuscular Volume 89 FL (80-99) Mean Corpuscular Hemoglobin 28.0 PG (27.0-31.0) Mean Corpuscular Hemoglobin Concent 31.4 G/DL (32.0-36.0) L Red Cell Distribution Width 16.4 % (11.6-14.8) H Platelet Count 350 K/UL (150-450) Mean Platelet Volume 5.7 FL (6.5-10.1) L Neutrophils (%) (Auto) % (45.0-75.0) Lymphocytes (%) (Auto) % (20.0-45.0) Monocytes (%) (Auto) % (1.0-10.0) Eosinophils (%) (Auto) % (0.0-3.0) Basophils (%) (Auto) % (0.0-2.0) Differential Total Cells Counted 100 Neutrophils % (Manual) 65 % (45-75) Lymphocytes % (Manual) 28 % (20-45) Monocytes % (Manual) 5 % (1-10) Eosinophils % (Manual) 2 % (0-3) Basophils % (Manual) 0 % (0-2) Band Neutrophils 0 % (0-8) Platelet Estimate Adequate Platelet Morphology Normal Polychromasia 1+ Hypochromasia 2+ Anisocytosis 1+ Sodium Level 143 MMOL/L (136-145) Potassium Level 3.8 MMOL/L (3.5-5.1) Chloride Level 107 MMOL/L (98-107) Carbon Dioxide Level 28 MMOL/L (21-32) Anion Gap 8 mmol/L (5-15) Blood Urea Nitrogen 28 mg/dL (7-18) H Creatinine 2.6 MG/DL (0.55-1.30) #H Estimat Glomerular Filtration Rate 21.1 mL/min (>60) Glucose Level 127 MG/DL (74-106) H Calcium Level 8.3 MG/DL (8.5-10.1) L Phosphorus Level 1.7 MG/DL (2.5-4.9) L Magnesium Level 2.0 MG/DL (1.8-2.4) Ferritin 1687 NG/ML (8-388) H Troponin I 0.028 ng/mL (0.000-0.056) Pro-B-Type Natriuretic Peptide 8161 pg/mL (0-125) H Height (Feet): 5 Height (Inches): 6.00 Weight (Pounds): 110 Medications Current Medications Medications (Trade) Dose Ordered Sig/Joan Route PRN Reason Start Time Stop Time Status Last Admin Dose Admin Acetaminophen (Tylenol) 650 mg Q4H PRN GT Mild Pain (Pain Scale 1-3) 09/08/19 06:15 10/08/19 03:29 09/09/19 00:57 Atorvastatin Calcium (Lipitor) 10 mg BEDTIME GT 09/08/19 21:00 12/07/19 20:59 09/08/19 21:00 Carvedilol (Coreg) 6.25 mg EVERY 12 HOURS GT 09/08/19 09:00 10/08/19 08:59 09/09/19 10:03 Ceftriaxone Sodium 1 gm/ Dextrose 55 ml @ 110 mls/hr Q24H IVPB 09/08/19 18:00 09/15/19 17:59 09/08/19 17:27 Epoetin Dion (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)) 4,000 unit MON-MON-MON SUBQ 09/09/19 21:00 12/08/19 20:59 Gabapentin (Neurontin) 300 mg THREE TIMES A DAY GT 09/08/19 09:00 10/08/19 08:59 09/09/19 10:03 Heparin Sodium (Porcine) (Heparin 5000 units/ml) 5,000 units EVERY 12 HOURS SUBQ 09/08/19 21:45 10/23/19 21:44 09/09/19 10:05 Iron Sucrose 100 mg/Sodium Chloride 60 ml @ 240 mls/hr BEDTIME IV 09/08/19 21:00 09/12/19 21:14 09/08/19 21:00 Loperamide HCl (Imodium) 2 mg Q4H PRN GT Diarrhea 09/08/19 06:15 10/08/19 03:44 Assessment/Plan Assessment/Plan: Heme Consultation Note REQ MD: Meera Frederick MD RFC: Progressive anemia, low plt and high wbc, pancreatic cystic lesion DOS: 09/09/2019 HPI 89 year-old female brought in by EMS bc of anemia, she is well known to me, noted to have a hgb of 6 on admission. Patient was noted to have adequate blood sugar greater than 100. She had been found on the floor with unknown last well time. She was noted to have some pressure sores to the right side of her body. She had some skin stuck to the floor apparently unknown date of injury. Patient had prior history of neuropathy and normally walks with a walker and is normally verbal. History is markedly limited by patient's mental status. Currently is with peg, have reviewed pre owned sales consultant notes Allergies: Coded Allergies: No Known Allergies (Unverified , 06/24/19) Patient History Past Medical History: see triage record Reviewed Nursing Documentation: PMH: Agreed; PSxH: Agreed Nursing Documentation-PMH Past Medical History: No History, Except For ROS (review of systems): limited, is apoor historian in general Physical Exam: Vitals: reviewed General: NAD, groans to pain stimuli HEENT: nc, at Neck: supple Chest: clear breath sounds bilaterally Cardiovascular: RRR, no s3, s4 Abdomen: soft, nontender, nd ++ peg Extremities: no cce, normal range of motion Neuro: confused, nonverbal Skin: other - pressure sores to right side Labs: noted Imaging: reviewed Assessment and Recs # 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 Otherwise unremarkable pancreas --> as per gi, may need further eval with endsocopy --> with pancreatitis at this time, may be obscuring picture --> reimage in short order, 6 months --> ca19.9 60 but may be elevated due to pancreatitis --> cea of 10--> --> monitor lfts daily # Anemia of chronic disease due to underlying chronic medical issues, multifactorial v Gi bleed --> Anemia workup has been reviewed, ferritin 1300 -->1800 --> No evidence of hemolysis is noted, peripheral smear has been reviewed. --> Hgb goal >7. Transfuse prn. --> Epogen has been started --> IV IRON also started on hd --> Medications have been reviewed --> hgb 6-->7.1 --> low threshold for gi evaluation in case has occult + --> bone marrow biopsy is not indicated given the other more likely causes # Leukocytosis/elevated white blood cell count, unspecified likely related to underlying stress reaction, smoking v more likely infection in this case, uti now --> have reviewed peripheral smear and bandemia/neutrophilia noted --> continue antibiotics if they have been started by ID team --> monitor for resolution --> as per id care, on broad spectrum abx --> wbc 14-->12-->9 --> per id recs, on ctx # Thrombocytopenia - potential causes multifactorial, evaluate liver and viral etiologies to begin, in this case due to sepsisand pancreatitis --> Hep panel and HIV are both negative --> US abd to evaluate for cirrhosis and hsm --> pleural effusions noted, hsm is neg --> Peripheral smear ordered to evaluate for blasts /schistocytes --> abx and other meds have been reviewed --> ok for ppx if plt >50k w/ either heparin or lovenox # 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 Greatly appreciate consultation. Bola Aldridge MD September 09, 2019 10:36
[2019-09-09 12:00] VITALS: BP 125/61
--- NOTE | 2019-09-09 12:33 | Nephrology Progress Note ---
Assessment/Plan Plan #ESRD on HD TT- #anemia of CKD #UTI #dysphagia s/p PEG #multiple pressure wounds #HTN - hold off on HD for now - prbc transfusion for hemoglobin < 7 - resume epo 4k TIW - IV iron - monitor CBC - HOLD lasix - STRICT I&Os - daily weights - place [place] - ceftriaxone for UTI - continue coreg 6.25mg BID - monitor mag, phos and BMP daily Time spent 70 min > 50% on care coordination and counseling Subjective ROS Limited/Unobtainable: Yes Subjective hemoglobin 7.1 BUN/cr slowly uptrending lasix held for now on IV iron evaluated by GI Objective Objective Last 24 Hour Vital Signs Date Time Temp Pulse Resp B/P (MAP) Pulse Ox O2 Delivery O2 Flow Rate FiO2 09/09/19 10:03 95 122/54 09/09/19 09:00 Room Air 09/09/19 08:00 96 09/09/19 08:00 98.6 95 19 122/54 (76) 100 09/09/19 04:00 91 09/09/19 04:00 98.8 93 19 101/62 (75) 99 09/09/19 01:30 99.0 09/09/19 00:00 100.0 106 20 100/60 (73) 95 09/09/19 00:00 104 09/08/19 21:00 107 103/63 09/08/19 21:00 Room Air 09/08/19 20:00 105 09/08/19 20:00 99.0 107 19 103/63 (76) 100 09/08/19 16:00 100 09/08/19 16:00 98.6 102 20 132/66 (88) 97 Intake and Output 09/08/19 09/09/19 19:00 07:00 Output Total 200 ml 300 ml Balance -200 ml -300 ml Output Urine Total 200 ml 300 ml # Bowel Movements 1 1 Laboratory Tests 09/08/19 14:20: Stool Occult Blood Negative 09/09/19 06:10: White Blood Count 12.4H, Red Blood Count 2.53L, Hemoglobin 7.1L, Hematocrit 22.6L, Mean Corpuscular Volume 89, Mean Corpuscular Hemoglobin 28.0, Mean Corpuscular Hemoglobin Concent 31.4L, Red Cell Distribution Width 16.4H, Platelet Count 350, Mean Platelet Volume 5.7L, Neutrophils (%) (Auto) , Lymphocytes (%) (Auto) , Monocytes (%) (Auto) , Eosinophils (%) (Auto) , Basophils (%) (Auto) , Differential Total Cells Counted 100, Neutrophils % ( Manual) 65, Lymphocytes % (Manual) 28, Monocytes % (Manual) 5, Eosinophils % ( Manual) 2, Basophils % (Manual) 0, Band Neutrophils 0, Platelet Estimate Adequate, Platelet Morphology Normal, Polychromasia 1+, Hypochromasia 2+, Anisocytosis 1+, Sodium Level 143, Potassium Level 3.8, Chloride Level 107, Carbon Dioxide Level 28, Anion Gap 8, Blood Urea Nitrogen 28H, Creatinine 2.6#H , Estimat Glomerular Filtration Rate 21.1, Glucose Level 127H, Calcium Level 8.3L, Phosphorus Level 1.7L, Magnesium Level 2.0, Ferritin 1687H, Troponin I 0.028, Pro-B-Type Natriuretic Peptide 8161H 09/09/19 10:11: Carcinoembryonic Antigen [Pending], CA 19-9 Antigen [Pending] Height (Feet): 5 Height (Inches): 6.00 Weight (Pounds): 110 Objective General Appearance: confused, cachetic, thin Lines, tubes and drains: peripheral HEENT: normocephalic, atraumatic Respiratory/Chest: chest wall non-tender, no respiratory distress Cardiovascular/Chest: normal peripheral pulses Abdomen: feeding tube Extremities: non-pitting, no cyanosis, other - unable to move extremities. Skin Exam: other - pressure ulcers Rory Oconnor M.D. September 09, 2019 12:33
[2019-09-09] MEDS ORDERED: Vancomycin 1 GM in D5W 275 ML IVPB ONE (14:00)
--- NOTE | 2019-09-09 14:59 | General Progress Note ---
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 Patient is being placed in observation unit for further medical work up #ESRD on HD #Acute on chronic anemia, now resolved #Anemia of ESRD -Serum hgb down to 7.1 today -Continue to monitor; CBC Q 8H -cont. to monitor for signs/symptoms of bleeding -Transfuse for hgb <7.0 during HD -EPOGEN per nephro -Renal and Heme following #ESBL Klebsiella UTI #Indwelling Sanchez catheter -Highly elevated WBC and RBC on UA; 3+ LE -Empiric tx with IV Rocephin changed to meropenem -ID following #HTN #elevated troponin #Elevated BNP -trops stable at baseline -likely due to demand ischemia, ESRD, sepsis -ASA, statin -Resume home Lasix -hydralazine PRN for SBP >160 -Carvedilol 6.25 mg BID -Cardio following #Dysphagia -s/p PEG -tolerating TF -Dietary and GI following, recs appreciated #Advanced Dementia -stable -neuro following, appreciate recs #Pressure wounds -Will consult wound care Spent 38 minutes on the patient's case and 20 on counseling and care coordination. Case discussed with RN at the bedside, nephrology. Case discussed with Consultants on the phone. I spent an additional 35 minutes on review of medical records including prior hospital records, consult notes, progress notes, procedures, imaging, labs, hemodynamics, and other clinical documentation. Subjective Date patient seen: September 09, 2019 Time patient seen: 13:15 ROS Limited/Unobtainable: Yes Allergies: Coded Allergies: No Known Allergies (Unverified , 06/24/19) Subjective Follow up for Objective Last 24 Hour Vital Signs Date Time Temp Pulse Resp B/P (MAP) Pulse Ox O2 Delivery O2 Flow Rate FiO2 09/09/19 10:03 95 122/54 09/09/19 09:00 Room Air 09/09/19 08:00 96 09/09/19 08:00 98.6 95 19 122/54 (76) 100 09/09/19 04:00 91 09/09/19 04:00 98.8 93 19 101/62 (75) 99 09/09/19 01:30 99.0 09/09/19 00:00 100.0 106 20 100/60 (73) 95 09/09/19 00:00 104 09/08/19 21:00 107 103/63 09/08/19 21:00 Room Air 09/08/19 20:00 105 09/08/19 20:00 99.0 107 19 103/63 (76) 100 09/08/19 16:00 100 09/08/19 16:00 98.6 102 20 132/66 (88) 97 Intake and Output 09/08/19 09/09/19 19:00 07:00 Output Total 200 ml 300 ml Balance -200 ml -300 ml Output Urine Total 200 ml 300 ml # Bowel Movements 1 1 Laboratory Tests 09/09/19 06:10: White Blood Count 12.4H, Red Blood Count 2.53L, Hemoglobin 7.1L, Hematocrit 22.6L, Mean Corpuscular Volume 89, Mean Corpuscular Hemoglobin 28.0, Mean Corpuscular Hemoglobin Concent 31.4L, Red Cell Distribution Width 16.4H, Platelet Count 350, Mean Platelet Volume 5.7L, Neutrophils (%) (Auto) , Lymphocytes (%) (Auto) , Monocytes (%) (Auto) , Eosinophils (%) (Auto) , Basophils (%) (Auto) , Differential Total Cells Counted 100, Neutrophils % ( Manual) 65, Lymphocytes % (Manual) 28, Monocytes % (Manual) 5, Eosinophils % ( Manual) 2, Basophils % (Manual) 0, Band Neutrophils 0, Platelet Estimate Adequate, Platelet Morphology Normal, Polychromasia 1+, Hypochromasia 2+, Anisocytosis 1+, Sodium Level 143, Potassium Level 3.8, Chloride Level 107, Carbon Dioxide Level 28, Anion Gap 8, Blood Urea Nitrogen 28H, Creatinine 2.6#H , Estimat Glomerular Filtration Rate 21.1, Glucose Level 127H, Calcium Level 8.3L, Phosphorus Level 1.7L, Magnesium Level 2.0, Ferritin 1687H, Troponin I 0.028, Pro-B-Type Natriuretic Peptide 8161H 09/09/19 10:11: Carcinoembryonic Antigen [Pending], CA 19-9 Antigen [Pending] Height (Feet): 5 Height (Inches): 6.00 Weight (Pounds): 110 Oumar Foy MD September 09, 2019 14:59
[2019-09-09 16:00] VITALS: BP 130/65
[2019-09-09] MEDS: Meropenem 500mg/NS 55ml IVPB SCH ×2 (16:44)
--- NOTE | 2019-09-09 18:34 | Surgery Progress Note ---
Surgery Progress Note Subjective Additional Comments labs noted exam stable dressings changed comfortable Objective Last 24 Hour Vital Signs Date Time Temp Pulse Resp B/P (MAP) Pulse Ox O2 Delivery O2 Flow Rate FiO2 09/09/19 16:00 98.6 98 19 130/65 (86) 100 09/09/19 16:00 87 09/09/19 12:00 88 09/09/19 12:00 98.2 93 19 125/61 (82) 100 09/09/19 10:03 95 122/54 09/09/19 09:00 Room Air 09/09/19 08:00 96 09/09/19 08:00 98.6 95 19 122/54 (76) 100 09/09/19 04:00 91 09/09/19 04:00 98.8 93 19 101/62 (75) 99 09/09/19 01:30 99.0 09/09/19 00:00 100.0 106 20 100/60 (73) 95 09/09/19 00:00 104 09/08/19 21:00 107 103/63 09/08/19 21:00 Room Air 09/08/19 20:00 105 09/08/19 20:00 99.0 107 19 103/63 (76) 100 I&O Intake and Output 09/08/19 09/09/19 19:00 07:00 Output Total 200 ml 300 ml Balance -200 ml -300 ml Output Urine Total 200 ml 300 ml # Bowel Movements 1 1 Dressing: other Wound: other Drains: other Cardiovascular: RSR Abdomen: non-tender, present bowel sounds Extremities: no cyanosis Laboratory Tests Test 09/09/19 06:10 09/09/19 10:11 White Blood Count 12.4 K/UL (4.8-10.8) H Red Blood Count 2.53 M/UL (4.20-5.40) L Hemoglobin 7.1 G/DL (12.0-16.0) L Hematocrit 22.6 % (37.0-47.0) L Mean Corpuscular Volume 89 FL (80-99) Mean Corpuscular Hemoglobin 28.0 PG (27.0-31.0) Mean Corpuscular Hemoglobin Concent 31.4 G/DL (32.0-36.0) L Red Cell Distribution Width 16.4 % (11.6-14.8) H Platelet Count 350 K/UL (150-450) Mean Platelet Volume 5.7 FL (6.5-10.1) L Neutrophils (%) (Auto) % (45.0-75.0) Lymphocytes (%) (Auto) % (20.0-45.0) Monocytes (%) (Auto) % (1.0-10.0) Eosinophils (%) (Auto) % (0.0-3.0) Basophils (%) (Auto) % (0.0-2.0) Differential Total Cells Counted 100 Neutrophils % (Manual) 65 % (45-75) Lymphocytes % (Manual) 28 % (20-45) Monocytes % (Manual) 5 % (1-10) Eosinophils % (Manual) 2 % (0-3) Basophils % (Manual) 0 % (0-2) Band Neutrophils 0 % (0-8) Platelet Estimate Adequate Platelet Morphology Normal Polychromasia 1+ Hypochromasia 2+ Anisocytosis 1+ Sodium Level 143 MMOL/L (136-145) Potassium Level 3.8 MMOL/L (3.5-5.1) Chloride Level 107 MMOL/L (98-107) Carbon Dioxide Level 28 MMOL/L (21-32) Anion Gap 8 mmol/L (5-15) Blood Urea Nitrogen 28 mg/dL (7-18) H Creatinine 2.6 MG/DL (0.55-1.30) #H Estimat Glomerular Filtration Rate 21.1 mL/min (>60) Glucose Level 127 MG/DL (74-106) H Calcium Level 8.3 MG/DL (8.5-10.1) L Phosphorus Level 1.7 MG/DL (2.5-4.9) L Magnesium Level 2.0 MG/DL (1.8-2.4) Ferritin 1687 NG/ML (8-388) H Troponin I 0.028 ng/mL (0.000-0.056) Pro-B-Type Natriuretic Peptide 8161 pg/mL (0-125) H Carcinoembryonic Antigen Pending CA 19-9 Antigen Pending Plan Problems: (1) COVID-19 ruled out Assessment & Plan: FINDINGS: Lungs: Left basilar opacity with volume loss, likely atelectasis however a focus of infection could have a similar appearance. Pleural space: No pleural effusion. No pneumothorax. Heart: Unremarkable. No cardiomegaly. Bones/joints: No fracture. Vasculature: Atherosclerotic calcifications. Tubes, lines and devices: Right IJ large bore dialysis catheter terminates within the right atrium. IMPRESSION: Left basilar opacity with volume loss, likely atelectasis however a focus of infection could have a similar appearance. leukocytosis anemia pending test (2) Protein calorie malnutrition Assessment & Plan: DAILY ESTIMATED NEEDS: Needs based on Wounds, HD 57kg 30-35 kcals/kg 3964-4550 total kcals 1.25-1.8 g protein/kg 71-103 g total protein Fluids per MD NUTRITION DIAGNOSIS: * Increased kcal and prot needs r/t wound healing and renal failure as evidenced by w/ multiple pressure injuries, including full thickness and unstageable wounds, refer to MD reports, pt w/ ESRD on HD, GT dep. CURRENT TF:Nepro @ 40ml/hr x 20 hrs ENTERAL NUTRITION RECOMMENDATIONS: Nepro @ 45ml/hr x 22 hrs to provide 990ml, 1782kcal, 80g prot, 720ml free water - Rec to INCREASE RATE AND RUNNING TIME ABOVE to better meet est kcal and pro needs - HOB over 30 degrees/ water flush per MD ADDITIONAL RECOMMENDATIONS: 1) Calibrated bedscale wt 2) Wound Care: add Nephrovite x 1 add Saw 1ptk BID via GT 3) Monitor BGs, consider NISS: BGs consistently mildly elevated 4) Monitor lytes and renal fxn (3) Pressure ulcer (4) Decubitus skin ulcer Assessment & Plan: Pt presented on admission with multiple pressure injuries. Unstageable pressure injury R shoulder(L)3.8cm x (W)3.3cm. Base of wound is 100 % necrotic and dry. Marginal erythema along borders. No erythema or induration periwound. Reabsorbed DTPI R Humerus. Base of injury has dry peeling brown skin with underlying dry pink epithelial. R elbow pressure injury has resolved. Full thickness pressure injury R hip (L)7cm x (W)13.1cm. Base of wound is 70% fibrinous slough,10% necrotic ,20% moist pink granulation. Edges are macerated.Small amt seropurulent non-odorous exudate noted. NO erythema , induration or elevation in skin temp periwound. Opened DTPI Sacrum(L)9cm x (W)15cm. Base of wound is purple,indurated with an open wound at sacrococcygeal which has 100% slough(L)1.6cm x (W)1cm. Surrounding Skin hypopigmentation with areas of excoriation extending into perineum and perianal area. Unstageable pressure injury lateral R malleolus(L)2.5cm x (W)3cm. Base of wound is 100% dry necrosis. Edges adherent to base of wound. No erythema induration or fluctuance periwound. Reabsorbing DTPI R heel. Base of Heel is boggy,non-blanching erythema with dry peeling brown skin along edges.(L)4.2cm x (W)6cm. Resolving DTPI distal/lateral R foot. Stable dry brown eschar without fluctuance or induration(L)1cm x (W)1.5cm. Resolving DTPI Lateral R 5th metatarsal.Base of injury is dry,brown without fluctuance or induration.(L)0.6cm x (W)1cm Unstageable pressure injury L Hallux(L)4cm x (W)2.7cm. Base of wound is 80% necrotic,20% slough with marginal erythema along borders. No odor or exudate noted. DTPI L Heel. Base of injury maroon and fluctuant. Periwound is boggy but blanchable(L)5.5cm x (W)6.5cm. Tx.Plan: Cleanse R shoulder with Saline. Apply Therahoney. Apply Cavilon Periwound. Cover with Optifoam drsg. Change every 3 days and prn. Cleanse R hip with Saline. Apply Therahoney.Apply Moisture Barrier Periwound. Cover with Optifoam drsg. Change Daily and prn. Cleanse Sacrum with Saline. Apply Therahoney. Apply Moisture Barrier Paste periwound. Cover with Optifoam drsg. Change every 3 days and prn. Apply Moisture Barrier Paste to perineum and perianal areas with each incontinence care. Apply Betadine to R heel,Distal/lateral R foot ,R5th metatarsal. Cover with Optifoam drsg. Change every 3 days and prn. Apply Betadine to L hallux,and L heel. Cover each site with Optifoam drsg. Change every 3 days and prn. Reposition at least every 2hours or as tolerated. Place pillow between knees. off-load heels with pillow. (5) Suspected COVID-19 virus infection Anshul Nava September 09, 2019 18:34
[2019-09-09 20:00] VITALS: BP 129/66
[2019-09-09] MEDS ORDERED: Epoetin Alfa-EPBX(ESRD on dialysis)4000 units/ml vial SUBQ SCH (21:00)
--- NOTE | 2019-09-09 21:03 | Infectious Diseases Prog Note ---
Assessment/Plan Assessment/Plan A) 1) esbl klebsiella, gram + bacteremia, ? endocarditis, ? wound source 2) sepsis, leukocytosis 3) pmh noted 4) allergies - nkda P) 1) meropenem and vancomycin 2) f/u cultures, labs and chest x-ray 3) monitor labs 4) will f/u Subjective Constitutional: Denies: fever HEENT: Denies: congestion Respiratory: Denies: shortness of breath Cardiovascular: Denies: chest pain Gastrointestinal/Abdominal: Denies: nausea, vomiting, diarrhea Allergies: Coded Allergies: No Known Allergies (Unverified , 06/24/19) Objective Vital Signs Last 24 Hour Vital Signs Date Time Temp Pulse Resp B/P (MAP) Pulse Ox O2 Delivery O2 Flow Rate FiO2 09/09/19 16:00 98.6 98 19 130/65 (86) 100 09/09/19 16:00 87 09/09/19 12:00 88 09/09/19 12:00 98.2 93 19 125/61 (82) 100 09/09/19 10:03 95 122/54 09/09/19 09:00 Room Air 09/09/19 08:00 96 09/09/19 08:00 98.6 95 19 122/54 (76) 100 09/09/19 04:00 91 09/09/19 04:00 98.8 93 19 101/62 (75) 99 09/09/19 01:30 99.0 09/09/19 00:00 100.0 106 20 100/60 (73) 95 09/09/19 00:00 104 09/08/19 21:00 107 103/63 09/08/19 21:00 Room Air Height (Feet): 5 Height (Inches): 6.00 Weight (Pounds): 110 General Appearance: no acute distress HEENT: normocephalic, atraumatic, anicteric, mucous membranes moist Respiratory/Chest: lungs clear, normal breath sounds, no respiratory distress Cardiovascular: normal rate, regular rhythm Abdomen: normal bowel sounds, soft, non tender, no organomegaly, non distended Microbiology Date/Time Source Procedure Growth Status 09/07/19 18:05 Blood Blood Culture - Preliminary Resulted 09/07/19 17:40 Blood Blood Culture - Preliminary Resulted 09/08/19 07:30 Wound Gram Stain - Final Resulted 09/08/19 07:30 Wound Wound Culture - Preliminary NO GROWTH Resulted 09/07/19 18:50 Nasal Nares MRSA Culture - Final NO METHICILLIN RESISTANT STAPH AUREUS... Complete 09/07/19 18:05 Urine,Clean Catch Urine Culture - Preliminary Klebsiella Pneumoniae Esbl Resulted 09/07/19 18:50 Rectum VRE Culture - Final Enterococcus Faecium - Vre Enterococcus Faecalis - Vre Complete Laboratory Tests Test 09/09/19 06:10 09/09/19 10:11 White Blood Count 12.4 K/UL (4.8-10.8) H Red Blood Count 2.53 M/UL (4.20-5.40) L Hemoglobin 7.1 G/DL (12.0-16.0) L Hematocrit 22.6 % (37.0-47.0) L Mean Corpuscular Volume 89 FL (80-99) Mean Corpuscular Hemoglobin 28.0 PG (27.0-31.0) Mean Corpuscular Hemoglobin Concent 31.4 G/DL (32.0-36.0) L Red Cell Distribution Width 16.4 % (11.6-14.8) H Platelet Count 350 K/UL (150-450) Mean Platelet Volume 5.7 FL (6.5-10.1) L Neutrophils (%) (Auto) % (45.0-75.0) Lymphocytes (%) (Auto) % (20.0-45.0) Monocytes (%) (Auto) % (1.0-10.0) Eosinophils (%) (Auto) % (0.0-3.0) Basophils (%) (Auto) % (0.0-2.0) Differential Total Cells Counted 100 Neutrophils % (Manual) 65 % (45-75) Lymphocytes % (Manual) 28 % (20-45) Monocytes % (Manual) 5 % (1-10) Eosinophils % (Manual) 2 % (0-3) Basophils % (Manual) 0 % (0-2) Band Neutrophils 0 % (0-8) Platelet Estimate Adequate Platelet Morphology Normal Polychromasia 1+ Hypochromasia 2+ Anisocytosis 1+ Sodium Level 143 MMOL/L (136-145) Potassium Level 3.8 MMOL/L (3.5-5.1) Chloride Level 107 MMOL/L (98-107) Carbon Dioxide Level 28 MMOL/L (21-32) Anion Gap 8 mmol/L (5-15) Blood Urea Nitrogen 28 mg/dL (7-18) H Creatinine 2.6 MG/DL (0.55-1.30) #H Estimat Glomerular Filtration Rate 21.1 mL/min (>60) Glucose Level 127 MG/DL (74-106) H Calcium Level 8.3 MG/DL (8.5-10.1) L Phosphorus Level 1.7 MG/DL (2.5-4.9) L Magnesium Level 2.0 MG/DL (1.8-2.4) Ferritin 1687 NG/ML (8-388) H Troponin I 0.028 ng/mL (0.000-0.056) Pro-B-Type Natriuretic Peptide 8161 pg/mL (0-125) H Carcinoembryonic Antigen Pending CA 19-9 Antigen Pending Current Medications Medications (Trade) Dose Ordered Sig/Joan Route PRN Reason Start Time Stop Time Status Last Admin Dose Admin Acetaminophen (Tylenol) 650 mg Q4H PRN GT Mild Pain (Pain Scale 1-3) 09/08/19 06:15 10/08/19 03:29 09/09/19 00:57 Atorvastatin Calcium (Lipitor) 10 mg BEDTIME GT 09/08/19 21:00 12/07/19 20:59 09/08/19 21:00 Carvedilol (Coreg) 6.25 mg EVERY 12 HOURS GT 09/08/19 09:00 10/08/19 08:59 09/09/19 10:03 Epoetin Dion (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)) 4,000 unit MON-MON-MON SUBQ 09/09/19 21:00 12/08/19 20:59 Gabapentin (Neurontin) 300 mg THREE TIMES A DAY GT 09/08/19 09:00 10/08/19 08:59 09/09/19 16:45 Heparin Sodium (Porcine) (Heparin 5000 units/ml) 5,000 units EVERY 12 HOURS SUBQ 09/08/19 21:45 10/23/19 21:44 09/09/19 10:05 Iron Sucrose 100 mg/Sodium Chloride 60 ml @ 240 mls/hr BEDTIME IV 09/08/19 21:00 09/12/19 21:14 09/08/19 21:00 Loperamide HCl (Imodium) 2 mg Q4H PRN GT Diarrhea 09/08/19 06:15 10/08/19 03:44 Meropenem 500 mg/ Sodium Chloride 55 ml @ 110 mls/hr Q24H IVPB 09/09/19 16:00 09/14/19 15:59 09/09/19 16:44 Vancomycin HCl (Vanco rx to dose) 1 ea DAILY PRN MISC Per rx protocol 09/09/19 13:00 10/09/19 12:59 Ana Rosado MD September 09, 2019 21:03
[2019-09-09] MEDS: Iron Sucrose 100 MG in NS 55 ML IV SCH (22:13)
[2019-09-10] VITALS: BP 106/56
--- NOTE | 2019-09-10 00:45 | Consultation ---
DATE OF CONSULTATION: 09/09/2019 INFECTIOUS DISEASES CONSULTATION CONSULTING PHYSICIAN: Ana Rosado MD. ATTENDING PHYSICIAN: Meera Frederick MD. REFERRING PHYSICIAN: Thien Brasher MD. REASON FOR CONSULTATION: ESBL Klebsiella UTI, complicated UTI, sepsis, fevers, leukocytosis, and gram-positive bacteremia. CHIEF COMPLAINT: The patient's chief complaint coming into the hospital is acute renal failure, anemia. HISTORY OF PRESENT ILLNESS: This is an 89-year-old female who comes to [facility]. The patient noted to have multiple medical problems including acute renal failure. Workup shows however that she has elevated white count, sepsis, and fevers. The patient's workup also shows that she has ESBL Klebsiella pneumoniae, UTI, complicated UTI, gram-positive bacteremia in multiple bottles. She has multiple wounds also. The patient is being followed by Surgery for the wounds. Wound culture is negative to date. Infectious consultation requested for antibiotic management. The patient is currently on meropenem and vancomycin for gram-negative and gram-positive coverage. Identification of gram-positive organisms pending at this time. MAR was noted. Orders were noted. Notes and records reviewed. Echo was also been ordered. REVIEW OF SYSTEMS: The patient has generalized fatigue and weakness. She is responsive. She has multiple wounds. She did have fevers but have resolved. HEAD AND PAIN: No head pain or neck pain. CARDIAC: No chest pain. GASTROINTESTINAL: No nausea, vomiting, diarrhea. GENITOURINARY: No CVA tenderness. PULMONARY: No congestion or shortness of breath. SKIN: No rash. She has multiple wounds. EXTREMITIES: No pain. She looks like contractures. NEUROLOGIC: No seizures. Generalized fatigue and weakness. Review of systems is otherwise limited in this patient. PAST MEDICAL HISTORY: The patient's past medical history includes the following: The patient has past medical history of chronic renal failure. Other past medical history includes anemia. She has history of wounds. Other past medical history includes history of end-stage renal disease on hemodialysis. She has history of dysphagia and PEG tube, wounds, hypertension, chronic renal failure, elevated creatinine. She has a history of Pseudomonas infection. ALLERGIES: She has no known drug allergies. No antibiotic allergies. SOCIAL HISTORY: Negative for smoking, alcohol, or drug abuse. FAMILY HISTORY: Noncontributory. Negative for tuberculosis or cancer. MEDICATIONS: Upon reviewing the MAR, she is on following medications. She is on meropenem and vancomycin. She is on heparin, atorvastatin. She is on iron, carvedilol, gabapentin. She is on acetaminophen, loperamide. Outside medications noted and reconciliated. PHYSICAL EXAMINATION: VITAL SIGNS: Temperature is 98.6, pulse rate 98, respiratory rate 19, blood pressure 130/65, saturation 100% on room air, T-max 100.0. Heart rate has been as high as 108. GENERAL: Weak and responsive. HEAD AND NECK: Oral exam, no thrush. Eye exam, no icterus. Normocephalic. Neck is supple. No JVD. HEART: Regular. No obvious gallop or murmur. ABDOMEN: Soft. Positive bowel sounds. Nontender. LUNGS: Fairly clear bilateral. No obvious rales. SKIN: She has multiple wounds, which I reviewed. No rashes. MUSCULOSKELETAL: Contractures. Legs without cellulitis. PERIPHERAL VASCULAR: Wounds are covered. GENITOURINARY: No CVA tenderness. LINE SITES: Without phlebitis. NEUROLOGIC: Generalized weakness, responsive, but weak. LABORATORY DATA: White count 12.4, hemoglobin 7.1. Creatinine 2.6 it was 1.1. IMAGING STUDIES: Chest x-ray most likely have volume loss and atelectasis per the report. We will get follow-up chest x-ray. Cultures, wound cultures negative. MRSA screen is negative. Blood culture, multiple bottles positive for gram-positive organisms in clusters. VRE screen is positive. Urine culture has ESBL Klebsiella pneumonia, sensitive to meropenem. UA had too many to count white blood cells and 3+ leukocyte esterase. ASSESSMENT AND PLAN: 1. The patient has ESBL Klebsiella bacteremia, sepsis, fevers, leukocytosis. The patient has gram-positive bacteremia, questionable endocarditis, questionable wound source. She also has acute renal failure. At this time, we will continue antibiotics, vancomycin and meropenem for gram-positive and gram-negative coverage. Continue vancomycin and meropenem for ESBL E. coli UTI, sepsis, fevers, leukocytosis, and also gram-positive bacteremia. Check echocardiogram which was ordered. Continue vancomycin and meropenem. Check final cultures, chest x-ray, labs, identification of blood cultures. Continue wound care per Surgery to assess for any central line and recent central lines we have to change it. I do not believe she has got dialysis at this time as creatinine on admission was almost within normal range. 2. She has history of hemodialysis, end-stage renal disease, chronic kidney disease. 3. The patient has history of hypertension. 4. Anemia. 5. Elevated creatinine. 6. Hypertension treatment per primary care team. 7. Wound care per Surgery. 8. Dysphagia, G-tube 9. No known drug allergies. 10. Social history is negative. 11. Family History is noncontributory. 12. MAR was noted. 13. Case discussed with RN. 14. Continue treatment per primary consultants. 15. Orders were noted and entered. Ana Rosado M.D. DR: Radha JOB#: [id number] CC:
--- NOTE | 2019-09-10 03:00 | Consultation ---
DATE OF CONSULTATION: 09/09/2019 ADDENDUM Patient has a fistula. Does not have a central line at this time. Fistula is unlikely to get infected, likely source of the gram-positive organisms. We will continue wound care protocol. We will check echocardiogram also. Ana Rosado M.D. DR: SAMANTHA JOB#: [id number] CC:
[2019-09-10 04:00] VITALS: BP 112/62
[2019-09-10 07:28] LABS: HEMATOCRIT 21.7 % (37.0-47.0); MEAN CORPUSCULAR VOLUME 89 FL (80-99); PLATELET COUNT 207 K/UL (150-450); RED BLOOD COUNT 2.45 M/UL (4.20-5.40); RED CELL DISTRIBUTION WIDTH 16.5 % (11.6-14.8); WHITE BLOOD COUNT 13.1 K/UL (4.8-10.8)
--- NOTE | 2019-09-10 07:29 | Hematology/Onc Progress Note ---
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 Otherwise unremarkable pancreas --> as per gi, may need further eval with endsocopy --> with pancreatitis at this time, may be obscuring picture --> reimage in short order, 6 months --> ca19.9 60 but may be elevated due to pancreatitis --> cea of 10--> --> monitor lfts daily # Anemia of chronic disease due to underlying chronic medical issues, multifactorial v Gi bleed --> Anemia workup has been reviewed, ferritin 1300 -->1800 --> No evidence of hemolysis is noted, peripheral smear has been reviewed. --> Hgb goal >7. Transfuse prn. --> Epogen has been started --> IV IRON also started on hd --> Medications have been reviewed --> hgb 6-->7.1 --> 09/07 stool ob negative --> bone marrow biopsy is not indicated given the other more likely causes # Leukocytosis/elevated white blood cell count, unspecified likely related to underlying stress reaction, smoking v more likely infection in this case, uti now --> have reviewed peripheral smear and bandemia/neutrophilia noted --> continue antibiotics if they have been started by ID team --> monitor for resolution --> as per id care, on broad spectrum abx --> wbc 14-->12-->9 --> per id recs, on: cftx-->bethany/vanc # Thrombocytopenia - potential causes multifactorial, evaluate liver and viral etiologies to begin, in this case due to sepsisand pancreatitis --> Hep panel and HIV are both negative --> US abd to evaluate for cirrhosis and hsm --> pleural effusions noted, hsm is neg --> Peripheral smear ordered to evaluate for blasts /schistocytes --> abx and other meds have been reviewed --> ok for ppx if plt >50k w/ either heparin or lovenox # 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 Greatly appreciate consultation. Subjective Allergies: Coded Allergies: No Known Allergies (Unverified , 06/24/19) Subjective 09/09 on tele, labs pending, stool ob negative, iv abx Objective Objective Current Medications Medications (Trade) Dose Ordered Sig/Joan Route PRN Reason Start Time Stop Time Status Last Admin Dose Admin Acetaminophen (Tylenol) 650 mg Q4H PRN GT Mild Pain (Pain Scale 1-3) 09/08/19 06:15 10/08/19 03:29 09/09/19 00:57 Atorvastatin Calcium (Lipitor) 10 mg BEDTIME GT 09/08/19 21:00 12/07/19 20:59 09/09/19 22:03 Carvedilol (Coreg) 6.25 mg EVERY 12 HOURS GT 09/08/19 09:00 10/08/19 08:59 09/09/19 22:04 Epoetin Dion (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)) 4,000 unit MON-MON-MON SUBQ 09/09/19 21:00 12/08/19 20:59 09/09/19 22:04 Gabapentin (Neurontin) 300 mg THREE TIMES A DAY GT 09/08/19 09:00 10/08/19 08:59 09/09/19 16:45 Heparin Sodium (Porcine) (Heparin 5000 units/ml) 5,000 units EVERY 12 HOURS SUBQ 09/08/19 21:45 10/23/19 21:44 09/09/19 10:05 Iron Sucrose 100 mg/Sodium Chloride 60 ml @ 240 mls/hr BEDTIME IV 09/08/19 21:00 09/12/19 21:14 09/09/19 22:13 Loperamide HCl (Imodium) 2 mg Q4H PRN GT Diarrhea 09/08/19 06:15 10/08/19 03:44 Meropenem 500 mg/ Sodium Chloride 55 ml @ 110 mls/hr Q24H IVPB 09/09/19 16:00 09/14/19 15:59 09/09/19 16:44 Vancomycin HCl (Vanco rx to dose) 1 ea DAILY PRN MISC Per rx protocol 09/09/19 13:00 10/09/19 12:59 Last 24 Hour Vital Signs Date Time Temp Pulse Resp B/P (MAP) Pulse Ox O2 Delivery O2 Flow Rate FiO2 09/10/19 04:00 98.8 105 21 112/62 (79) 100 09/10/19 04:00 114 09/10/19 00:00 60 09/10/19 00:00 98.9 99 23 106/56 (73) 94 09/09/19 22:04 64 129/66 09/09/19 21:00 Room Air 09/09/19 20:00 97.7 64 19 129/66 (87) 100 09/09/19 20:00 90 09/09/19 16:00 98.6 98 19 130/65 (86) 100 09/09/19 16:00 87 09/09/19 12:00 88 09/09/19 12:00 98.2 93 19 125/61 (82) 100 09/09/19 10:03 95 122/54 09/09/19 09:00 Room Air 09/09/19 08:00 96 09/09/19 08:00 98.6 95 19 122/54 (76) 100 09/09/19 04:00 91 09/09/19 04:00 98.8 93 19 101/62 (75) 99 09/09/19 01:30 99.0 09/09/19 00:00 100.0 106 20 100/60 (73) 95 09/09/19 00:00 104 09/08/19 21:00 107 103/63 09/08/19 21:00 Room Air 09/08/19 20:00 105 09/08/19 20:00 99.0 107 19 103/63 (76) 100 09/08/19 16:00 100 09/08/19 16:00 98.6 102 20 132/66 (88) 97 09/08/19 12:00 97.9 103 20 130/70 (90) 98 09/08/19 12:00 101 09/08/19 09:00 Room Air 09/08/19 08:54 108 137/78 09/08/19 08:00 108 09/08/19 08:00 98.0 108 20 137/78 (97) 99 Intake and Output 09/09/19 09/10/19 19:00 07:00 Intake Total 540 ml Output Total 400 ml 350 ml Balance -400 ml 190 ml Intake Oral 500 ml Tube Feeding 40 ml Output Urine Total 400 ml 350 ml Labs Test 09/07/19 18:05 09/08/19 08:20 09/08/19 14:20 09/09/19 06:10 White Blood Count 9.6 K/UL (4.8-10.8) 11.7 K/UL (4.8-10.8) 12.4 K/UL (4.8-10.8) Red Blood Count 2.67 M/UL (4.20-5.40) 2.74 M/UL (4.20-5.40) 2.53 M/UL (4.20-5.40) Hemoglobin 7.4 G/DL (12.0-16.0) 7.9 G/DL (12.0-16.0) 7.1 G/DL (12.0-16.0) Hematocrit 25.3 % (37.0-47.0) 24.3 % (37.0-47.0) 22.6 % (37.0-47.0) Mean Corpuscular Volume 95 FL (80-99) 89 FL (80-99) 89 FL (80-99) Mean Corpuscular Hemoglobin 27.8 PG (27.0-31.0) 28.8 PG (27.0-31.0) 28.0 PG (27.0-31.0) Mean Corpuscular Hemoglobin Concent 29.4 G/DL (32.0-36.0) 32.5 G/DL (32.0-36.0) 31.4 G/DL (32.0-36.0) Red Cell Distribution Width 17.4 % (11.6-14.8) 16.4 % (11.6-14.8) 16.4 % (11.6-14.8) Platelet Count 337 K/UL (150-450) 370 K/UL (150-450) 350 K/UL (150-450) Mean Platelet Volume 7.7 FL (6.5-10.1) 6.0 FL (6.5-10.1) 5.7 FL (6.5-10.1) Neutrophils (%) (Auto) % (45.0-75.0) % (45.0-75.0) % (45.0-75.0) Lymphocytes (%) (Auto) % (20.0-45.0) % (20.0-45.0) % (20.0-45.0) Monocytes (%) (Auto) % (1.0-10.0) % (1.0-10.0) % (1.0-10.0) Eosinophils (%) (Auto) % (0.0-3.0) % (0.0-3.0) % (0.0-3.0) Basophils (%) (Auto) % (0.0-2.0) % (0.0-2.0) % (0.0-2.0) Differential Total Cells Counted 100 100 100 Neutrophils % (Manual) 64 % (45-75) 77 % (45-75) 65 % (45-75) Lymphocytes % (Manual) 26 % (20-45) 18 % (20-45) 28 % (20-45) Monocytes % (Manual) 9 % (1-10) 4 % (1-10) 5 % (1-10) Eosinophils % (Manual) 1 % (0-3) 1 % (0-3) 2 % (0-3) Basophils % (Manual) 0 % (0-2) 0 % (0-2) 0 % (0-2) Band Neutrophils 0 % (0-8) 0 % (0-8) 0 % (0-8) Platelet Estimate Adequate Adequate Adequate Platelet Morphology Normal Normal Normal Hypochromasia 2+ 1+ 2+ Anisocytosis 1+ 1+ 1+ Prothrombin Time 11.4 SEC (9.30-11.50) Prothromb Time International Ratio 1.0 (0.9-1.1) Activated Partial Thromboplast Time 34 SEC (23-33) D-Dimer 3.59 mg/L FEU (0.00-0.49) Urine Color Yellow Urine Appearance Cloudy Urine pH 8 (4.5-8.0) Urine Specific [place] 1.010 (1.005-1.035) Urine Protein 2+ (NEGATIVE) Urine Glucose (UA) Negative (NEGATIVE) Urine Ketones Negative (NEGATIVE) Urine Blood 5+ (NEGATIVE) Urine Nitrite Negative (NEGATIVE) Urine Bilirubin Negative (NEGATIVE) Urine Urobilinogen Normal MG/DL (0.0-1.0) Urine Leukocyte Esterase 3+ (NEGATIVE) Urine RBC Tntc /HPF (0 - 2) Urine WBC Tntc /HPF (0 - 2) Urine Squamous Epithelial Cells Moderate /LPF (NONE/OCC) Urine Bacteria Many /HPF (NONE) Sodium Level 138 MMOL/L (136-145) 140 MMOL/L (136-145) 143 MMOL/L (136-145) Potassium Level 4.0 MMOL/L (3.5-5.1) 4.0 MMOL/L (3.5-5.1) 3.8 MMOL/L (3.5-5.1) Chloride Level 103 MMOL/L (98-107) 106 MMOL/L (98-107) 107 MMOL/L (98-107) Carbon Dioxide Level 26 MMOL/L (21-32) 25 MMOL/L (21-32) 28 MMOL/L (21-32) Anion Gap 9 mmol/L (5-15) 9 mmol/L (5-15) 8 mmol/L (5-15) Blood Urea Nitrogen 7 mg/dL (7-18) 14 mg/dL (7-18) 28 mg/dL (7-18) Creatinine 1.1 MG/DL (0.55-1.30) 1.7 MG/DL (0.55-1.30) 2.6 MG/DL (0.55-1.30) Estimat Glomerular Filtration Rate 56.6 mL/min (>60) 34.3 mL/min (>60) 21.1 mL/min (>60) Glucose Level 96 MG/DL (74-106) 130 MG/DL (74-106) 127 MG/DL (74-106) Lactic Acid Level 0.70 mmol/L (0.4-2.0) Calcium Level 8.3 MG/DL (8.5-10.1) 8.6 MG/DL (8.5-10.1) 8.3 MG/DL (8.5-10.1) Total Bilirubin 0.4 MG/DL (0.2-1.0) 0.4 MG/DL (0.2-1.0) Aspartate Amino Transf (AST/SGOT) 38 U/L (15-37) 30 U/L (15-37) Alanine Aminotransferase (ALT/SGPT) 27 U/L (12-78) 26 U/L (12-78) Alkaline Phosphatase 71 U/L (46-116) 79 U/L (46-116) Total Creatine Kinase 405 U/L (26-308) Creatine Kinase MB 4.1 NG/ML (0.0-3.6) Creatine Kinase MB Relative Index 1.0 Troponin I 0.038 ng/mL (0.000-0.056) 0.028 ng/mL (0.000-0.056) Pro-B-Type Natriuretic Peptide 6341 pg/mL (0-125) 8161 pg/mL (0-125) Total Protein 6.4 G/DL (6.4-8.2) 6.3 G/DL (6.4-8.2) Albumin 2.4 G/DL (3.4-5.0) 2.4 G/DL (3.4-5.0) Globulin 4.0 g/dL 3.9 g/dL Albumin/Globulin Ratio 0.6 (1.0-2.7) 0.6 (1.0-2.7) Polychromasia 1+ 1+ Phosphorus Level 1.8 MG/DL (2.5-4.9) 1.7 MG/DL (2.5-4.9) Magnesium Level 1.8 MG/DL (1.8-2.4) 2.0 MG/DL (1.8-2.4) Iron Level 19 ug/dL (50-175) Total Iron Binding Capacity 136 ug/dL (250-450) Percent Iron Saturation 14 % (15-50) Unsaturated Iron Binding 117 ug/dL (112-346) Vitamin B12 Level 1979 PG/ML (193-986) Folate 39.1 NG/ML (8.6-58.9) Stool Occult Blood Negative (NEGATIVE) Ferritin 1687 NG/ML (8-388) Test 09/09/19 10:11 09/10/19 06:35 Carcinoembryonic Antigen 7.8 ng/mL (0.0-4.7) Height (Feet): 5 Height (Inches): 6.00 Weight (Pounds): 110 Objective Physical Exam: Vitals: reviewed General: NAD, groans to pain stimuli HEENT: nc, at Neck: supple Chest: clear breath sounds bilaterally Cardiovascular: RRR, no s3, s4 Abdomen: soft, nontender, nd ++ peg Extremities: no cce, normal range of motion Neuro: confused, nonverbal Skin: other - pressure sores to right side Bola Aldridge MD September 10, 2019 07:29
[2019-09-10 07:39] LABS: ANION GAP 11 mmol/L (5-15); BLOOD UREA NITROGEN 40 mg/dL (7-18); CALCIUM 8.7 MG/DL (8.5-10.1); CARBON DIOXIDE 26 MMOL/L (21-32); CHLORIDE 104 MMOL/L (98-107); CREATININE 3.1 MG/DL (0.55-1.30); POTASSIUM 4.1 MMOL/L (3.5-5.1); SODIUM 140 MMOL/L (136-145)
[2019-09-10 07:48] LABS: HEMOGLOBIN 6.9 G/DL (12.0-16.0)
[2019-09-10 08:00] VITALS: BP 105/48
[2019-09-10] MEDS: Carvedilol 6.25mg Tab GT SCH ×2 (09:00→21:28)
[2019-09-10] MEDS: Heparin 5000 units/ml inj SUBQ SCH (09:00)
--- NOTE | 2019-09-10 09:13 | General Progress Note ---
Assessment/Plan Assessment/Plan: Assessment/Plan Status: stable Assessment/Plan: 1. End-stage renal disease, on hemodialysis. 2. Anemia iron def 3. Dysphagia, status post G-tube placement. 4. Pneumonia. 5. Pancreatic cyst. 6. Hypertension. 7. elevated CEA of 10 8. CAD 9. UTI chart from prior admissions reviewed iv iron repeat stool ob>> neg transfuse to keep HGB above 7>> ordered one unit with HD for today GTF 40 cc HD per nephrology will fu Subjective ROS Limited/Unobtainable: No Allergies: Coded Allergies: No Known Allergies (Unverified , 06/24/19) Objective Last 24 Hour Vital Signs Date Time Temp Pulse Resp B/P (MAP) Pulse Ox O2 Delivery O2 Flow Rate FiO2 09/10/19 04:00 98.8 105 21 112/62 (79) 100 09/10/19 04:00 114 09/10/19 00:00 60 09/10/19 00:00 98.9 99 23 106/56 (73) 94 09/09/19 22:04 64 129/66 09/09/19 21:00 Room Air 09/09/19 20:00 97.7 64 19 129/66 (87) 100 09/09/19 20:00 90 09/09/19 16:00 98.6 98 19 130/65 (86) 100 09/09/19 16:00 87 09/09/19 12:00 88 09/09/19 12:00 98.2 93 19 125/61 (82) 100 09/09/19 10:03 95 122/54 Intake and Output 09/09/19 09/10/19 19:00 07:00 Intake Total 540 ml Output Total 400 ml 350 ml Balance -400 ml 190 ml Intake Oral 500 ml Tube Feeding 40 ml Output Urine Total 400 ml 350 ml Laboratory Tests 09/09/19 10:11: Carcinoembryonic Antigen 7.8H, CA 19-9 Antigen [Pending] 09/10/19 06:35: White Blood Count 13.1H, Red Blood Count 2.45L, Hemoglobin 6.9*L, Hematocrit 21.7L, Mean Corpuscular Volume 89, Mean Corpuscular Hemoglobin 28.1, Mean Corpuscular Hemoglobin Concent 31.6L, Red Cell Distribution Width 16.5H, Platelet Count 207, Mean Platelet Volume 5.2L, Neutrophils (%) (Auto) , Lymphocytes (%) (Auto) , Monocytes (%) (Auto) , Eosinophils (%) (Auto) , Basophils (%) (Auto) , Neutrophils % (Manual) [Pending], Lymphocytes % (Manual) [Pending], Platelet Estimate [Pending], Platelet Morphology [Pending], Sodium Level 140, Potassium Level 4.1, Chloride Level 104, Carbon Dioxide Level 26, Anion Gap 11, Blood Urea Nitrogen 40H, Creatinine 3.1H, Estimat Glomerular Filtration Rate 17.2, Glucose Level 114H, Calcium Level 8.7, Phosphorus Level 1.9L Height (Feet): 5 Height (Inches): 6.00 Weight (Pounds): 110 General Appearance: lethargic EENT: PERRL/EOMI Neck: supple Cardiovascular: normal rate Respiratory/Chest: decreased breath sounds Abdomen: normal bowel sounds, non tender, soft Extremities: non-tender Jun Mena MD September 10, 2019 09:13
[2019-09-10 12:00] VITALS: BP 105/59
--- NOTE | 2019-09-10 12:02 | Cardiac Electrophysiology PN ---
Assessment/Plan Assessment/Plan 1. BNP of more than 6000. Had HD on Monday. Echocardiogram EF 65%. Ruled out for ME 2. Hypertension. Continue Coreg 6.25 mg b.i.d. 3. Elevated white count and UTI. On Ceftriaxone per Dr. Rosado. 4. Dysphagia, status post PEG placement. 5. Dementia. 6. CKD had HD on Monday per Dr. Bowen. BUN and Cr rising. Off Lasix for now May need HD again 7. Severe anemia Hb 6.[address] Bowen Subjective Subjective No new events. Nonverbal.In Covid isolation Objective Last 24 Hour Vital Signs Date Time Temp Pulse Resp B/P (MAP) Pulse Ox O2 Delivery O2 Flow Rate FiO2 09/10/19 09:00 97 105/48 09/10/19 09:00 Room Air 09/10/19 08:00 98.8 97 20 105/48 (67) 97 09/10/19 08:00 95 09/10/19 04:00 98.8 105 21 112/62 (79) 100 09/10/19 04:00 114 09/10/19 00:00 60 09/10/19 00:00 98.9 99 23 106/56 (73) 94 09/09/19 22:04 64 129/66 09/09/19 21:00 Room Air 09/09/19 20:00 97.7 64 19 129/66 (87) 100 09/09/19 20:00 90 09/09/19 16:00 98.6 98 19 130/65 (86) 100 09/09/19 16:00 87 Intake and Output 09/09/19 09/10/19 19:00 07:00 Intake Total 540 ml Output Total 400 ml 350 ml Balance -400 ml 190 ml Intake Oral 500 ml Tube Feeding 40 ml Output Urine Total 400 ml 350 ml Laboratory Tests Test 09/10/19 06:35 White Blood Count 13.1 K/UL (4.8-10.8) H Red Blood Count 2.45 M/UL (4.20-5.40) L Hemoglobin 6.9 G/DL (12.0-16.0) *L Hematocrit 21.7 % (37.0-47.0) L Mean Corpuscular Volume 89 FL (80-99) Mean Corpuscular Hemoglobin 28.1 PG (27.0-31.0) Mean Corpuscular Hemoglobin Concent 31.6 G/DL (32.0-36.0) L Red Cell Distribution Width 16.5 % (11.6-14.8) H Platelet Count 207 K/UL (150-450) Mean Platelet Volume 5.2 FL (6.5-10.1) L Neutrophils (%) (Auto) % (45.0-75.0) Lymphocytes (%) (Auto) % (20.0-45.0) Monocytes (%) (Auto) % (1.0-10.0) Eosinophils (%) (Auto) % (0.0-3.0) Basophils (%) (Auto) % (0.0-2.0) Differential Total Cells Counted 100 Neutrophils % (Manual) 76 % (45-75) H Lymphocytes % (Manual) 16 % (20-45) L Monocytes % (Manual) 5 % (1-10) Eosinophils % (Manual) 2 % (0-3) Basophils % (Manual) 1 % (0-2) Band Neutrophils 0 % (0-8) Platelet Estimate Adequate Platelet Morphology Normal Hypochromasia 4+ Anisocytosis 1+ Sodium Level 140 MMOL/L (136-145) Potassium Level 4.1 MMOL/L (3.5-5.1) Chloride Level 104 MMOL/L (98-107) Carbon Dioxide Level 26 MMOL/L (21-32) Anion Gap 11 mmol/L (5-15) Blood Urea Nitrogen 40 mg/dL (7-18) H Creatinine 3.1 MG/DL (0.55-1.30) H Estimat Glomerular Filtration Rate 17.2 mL/min (>60) Glucose Level 114 MG/DL (74-106) H Calcium Level 8.7 MG/DL (8.5-10.1) Phosphorus Level 1.9 MG/DL (2.5-4.9) L Microbiology Date/Time Source Procedure Growth Status 09/07/19 18:05 Blood Blood Culture - Preliminary Resulted 09/07/19 17:40 Blood Blood Culture - Preliminary Gram Positive Cocci Resulted 09/08/19 07:30 Wound Gram Stain - Final Resulted 09/08/19 07:30 Wound Wound Culture - Preliminary NO GROWTH Resulted 09/07/19 18:50 Nasal Nares MRSA Culture - Final NO METHICILLIN RESISTANT STAPH AUREUS... Complete 09/07/19 18:05 Urine,Clean Catch Urine Culture - Preliminary Klebsiella Pneumoniae Esbl Resulted 09/07/19 18:50 Rectum VRE Culture - Final Enterococcus Faecium - Vre Enterococcus Faecalis - Vre Complete Objective HEAD AND NECK: Shows no JVD. LUNGS: Coarse rhonchi. CARDIOVASCULAR: Shows regular S1 and S2 with no gallop. ABDOMEN: Status post G-tube. EXTREMITIES: No pitting edema. Cristopher Osman MD September 10, 2019 12:02
--- NOTE | 2019-09-10 12:58 | Surgery Progress Note ---
Surgery Progress Note Subjective Additional Comments transfusing prbc plan for HD today labs noted exam stable Objective Last 24 Hour Vital Signs Date Time Temp Pulse Resp B/P (MAP) Pulse Ox O2 Delivery O2 Flow Rate FiO2 09/10/19 12:00 97.8 95 20 105/59 (74) 96 09/10/19 09:00 97 105/48 09/10/19 09:00 Room Air 09/10/19 08:00 98.8 97 20 105/48 (67) 97 09/10/19 08:00 95 09/10/19 04:00 98.8 105 21 112/62 (79) 100 09/10/19 04:00 114 09/10/19 00:00 60 09/10/19 00:00 98.9 99 23 106/56 (73) 94 09/09/19 22:04 64 129/66 09/09/19 21:00 Room Air 09/09/19 20:00 97.7 64 19 129/66 (87) 100 09/09/19 20:00 90 09/09/19 16:00 98.6 98 19 130/65 (86) 100 09/09/19 16:00 87 I&O Intake and Output 09/09/19 09/10/19 19:00 07:00 Intake Total 540 ml Output Total 400 ml 350 ml Balance -400 ml 190 ml Intake Oral 500 ml Tube Feeding 40 ml Output Urine Total 400 ml 350 ml Dressing: saturated Wound: other Drains: other Cardiovascular: RSR Respiratory: decreased breath sounds Abdomen: soft, present bowel sounds Extremities: no cyanosis Laboratory Tests Test 09/10/19 06:34 09/10/19 06:35 Hepatitis B Surface Antigen Pending White Blood Count 13.1 K/UL (4.8-10.8) H Red Blood Count 2.45 M/UL (4.20-5.40) L Hemoglobin 6.9 G/DL (12.0-16.0) *L Hematocrit 21.7 % (37.0-47.0) L Mean Corpuscular Volume 89 FL (80-99) Mean Corpuscular Hemoglobin 28.1 PG (27.0-31.0) Mean Corpuscular Hemoglobin Concent 31.6 G/DL (32.0-36.0) L Red Cell Distribution Width 16.5 % (11.6-14.8) H Platelet Count 207 K/UL (150-450) Mean Platelet Volume 5.2 FL (6.5-10.1) L Neutrophils (%) (Auto) % (45.0-75.0) Lymphocytes (%) (Auto) % (20.0-45.0) Monocytes (%) (Auto) % (1.0-10.0) Eosinophils (%) (Auto) % (0.0-3.0) Basophils (%) (Auto) % (0.0-2.0) Differential Total Cells Counted 100 Neutrophils % (Manual) 76 % (45-75) H Lymphocytes % (Manual) 16 % (20-45) L Monocytes % (Manual) 5 % (1-10) Eosinophils % (Manual) 2 % (0-3) Basophils % (Manual) 1 % (0-2) Band Neutrophils 0 % (0-8) Platelet Estimate Adequate Platelet Morphology Normal Hypochromasia 4+ Anisocytosis 1+ Sodium Level 140 MMOL/L (136-145) Potassium Level 4.1 MMOL/L (3.5-5.1) Chloride Level 104 MMOL/L (98-107) Carbon Dioxide Level 26 MMOL/L (21-32) Anion Gap 11 mmol/L (5-15) Blood Urea Nitrogen 40 mg/dL (7-18) H Creatinine 3.1 MG/DL (0.55-1.30) H Estimat Glomerular Filtration Rate 17.2 mL/min (>60) Glucose Level 114 MG/DL (74-106) H Calcium Level 8.7 MG/DL (8.5-10.1) Phosphorus Level 1.9 MG/DL (2.5-4.9) L Plan Problems: (1) COVID-19 ruled out Assessment & Plan: FINDINGS: Lungs: Left basilar opacity with volume loss, likely atelectasis however a focus of infection could have a similar appearance. Pleural space: No pleural effusion. No pneumothorax. Heart: Unremarkable. No cardiomegaly. Bones/joints: No fracture. Vasculature: Atherosclerotic calcifications. Tubes, lines and devices: Right IJ large bore dialysis catheter terminates within the right atrium. IMPRESSION: Left basilar opacity with volume loss, likely atelectasis however a focus of infection could have a similar appearance. leukocytosis anemia pending test (2) Protein calorie malnutrition Assessment & Plan: DAILY ESTIMATED NEEDS: Needs based on Wounds, HD 57kg 30-35 kcals/kg [id number] total kcals 1.25-1.8 g protein/kg 71-103 g total protein Fluids per NUTRITION DIAGNOSIS: * Increased kcal and prot needs r/t wound healing and renal failure as evidenced by w/ multiple pressure injuries, including full thickness and unstageable wounds, refer to MD reports, pt w/ ESRD on HD, GT dep. CURRENT TF:Nepro @ 40ml/hr x 20 hrs ENTERAL NUTRITION RECOMMENDATIONS: Nepro @ 45ml/hr x 22 hrs to provide 990ml, 1782kcal, 80g prot, 720ml free water - Rec to INCREASE RATE AND RUNNING TIME ABOVE to better meet est kcal and pro needs - HOB over 30 degrees/ water flush per MD ADDITIONAL RECOMMENDATIONS: 1) Calibrated bedscale wt 2) Wound Care: add Nephrovite x 1 add Saw 1ptk BID via GT 3) Monitor BGs, consider NISS: BGs consistently mildly elevated 4) Monitor lytes and renal fxn (3) Pressure ulcer (4) Decubitus skin ulcer Assessment & Plan: Pt presented on admission with multiple Pressure injuries. Full thickness Pressure Injury R shoulder(L)2.8cm x (W)2cm. Base of wound is 75 % slough, 25% beefy red granulation. Slough removed with gentle friction. Post removal of slough,small amt slough at base of wound. Small amt sanguineous exudate. Edges flat and adherent to base of wound. Periwound without erythema, induration or fluctuance. Darker skin tone without induration ,fluctuance or tenderness at sacrococcygeal area. Non-blanching erythema and scattered areas of hyperpigmentation noted to R and L gluteal cheeks. Pt denied tenderness when affected areas palpated. Full thickness Pressure injury R hip (L)5.5cm x (W)10.2cm x (D)2.6cm. Base of wound is 75% pink granulation,25% Loose fibrinous slough. Bone is palpable.Edges flat ,pink and adherent to base of wound. Small amt. non-odorous serous exudate. Hypopigmentation noted to perineum and labia majora. Unstageable Pressure Injury R heel(L)3.5cm x (W)3.3cm . Base of wound is 100% necrotic with semidetached with surrounding yellow slough. Edges area dry, black. Periwound is non-blanchable and fluctuant. Maroon discoloration with fluctuance noted to distal/lateral R foot (L)2.8cm x ( W)2.5cm. Resolving pressure injury R Hallux(L)3.5cm x (W)3.3cm.[place] epithelial at base of wound with surrounding dry brown borders. L heel is boggy with non-blanching erythema.Historical scarring from previous wounds noted. Unstageable Pressure Injury L hallux(L)3.5cm x (W)2.8cm. Base of wound has 90% loose necrotic cap,surrounding slough. Loose necrotic cap easily removed with saline moistened gauze. At base of wound is 100% yellow slough, marginal erythema with small area of necrosis noted along borders. Small amt seropurulent non-odorous exudate noted. Stable dry necrosis at L st metatarsal head. Tx.Plan: Cleanse wound R shoulder with Saline. Apply Therahoney. Apply Cavilon Skin Barrier periwound. Cover with Optifoam drsg. Change every 3 days and prn. Cleanse R hip with Saline. Loosely pack with Therahoney impregnated Kerlix. Apply Moisture Barrier Paste periwound. Cover with Optifoam drsg. Change Daily and prn. Apply Moisture Barrier Paste to Sacrum. Cover with Optifoam drsg. Change every 3 days and prn. Apply Betadine to R heel, R hallux,Distal/lateral R foot. Cover with Abd pad and wrap with Kerlix every 3 days and prn. Apply Betadine to L hallux,L 1st metatarsal head,L heel. Cover with Abd pads and wrap with Kerlix every 3 days and prn. Reposition Back to L Side at least every 2hours or as tolerated. Place Pillow between knees. Off-load heels with pillow. APM/TIEN Mattress overlay. (5) Suspected COVID-19 virus infection Anshul Nava September 10, 2019 12:58
[2019-09-10] MEDS ORDERED: Sodium Phosphate 30 MM in NS 275 ML IVPB ONE (13:00)
--- NOTE | 2019-09-10 13:33 | Nephrology Progress Note ---
Assessment/Plan Plan #ESRD on HD TTHS- #anemia of CKD #UTI #dysphagia s/p PEG #multiple pressure wounds #HTN - 2 units of prbc with HD today - will likely need twice weekly HD given some recovery of renal function - prbc transfusion for hemoglobin < 7 - increase epo to 6k TIW - IV iron - monitor CBC - STRICT I&Os - daily weights - place [place] - on vancomycin and meropenem - continue coreg 6.25mg BID - replete phos - monitor mag, phos and BMP daily Time spent 45 min > 50% on care coordination and counseling Subjective ROS Limited/Unobtainable: Yes Subjective hemoglobin down to 6.9 BUN/cr slowly uptrending will tranfuse 2 units of prbc with HD today UOP 750 on IV iron evaluated by GI Objective Objective Last 24 Hour Vital Signs Date Time Temp Pulse Resp B/P (MAP) Pulse Ox O2 Delivery O2 Flow Rate FiO2 09/10/19 12:00 97 09/10/19 12:00 97.8 95 20 105/59 (74) 96 09/10/19 09:00 97 105/48 09/10/19 09:00 Room Air 09/10/19 08:00 98.8 97 20 105/48 (67) 97 09/10/19 08:00 95 09/10/19 04:00 98.8 105 21 112/62 (79) 100 09/10/19 04:00 114 09/10/19 00:00 60 09/10/19 00:00 98.9 99 23 106/56 (73) 94 09/09/19 22:04 64 129/66 09/09/19 21:00 Room Air 09/09/19 20:00 97.7 64 19 129/66 (87) 100 09/09/19 20:00 90 09/09/19 16:00 98.6 98 19 130/65 (86) 100 09/09/19 16:00 87 Intake and Output 09/09/19 09/10/19 19:00 07:00 Intake Total 540 ml Output Total 400 ml 350 ml Balance -400 ml 190 ml Intake Oral 500 ml Tube Feeding 40 ml Output Urine Total 400 ml 350 ml Laboratory Tests 09/10/19 06:34: Hepatitis B Surface Antigen [Pending] 09/10/19 06:35: White Blood Count 13.1H, Red Blood Count 2.45L, Hemoglobin 6.9*L, Hematocrit 21.7L, Mean Corpuscular Volume 89, Mean Corpuscular Hemoglobin 28.1, Mean Corpuscular Hemoglobin Concent 31.6L, Red Cell Distribution Width 16.5H, Platelet Count 207, Mean Platelet Volume 5.2L, Neutrophils (%) (Auto) , Lymphocytes (%) (Auto) , Monocytes (%) (Auto) , Eosinophils (%) (Auto) , Basophils (%) (Auto) , Differential Total Cells Counted 100, Neutrophils % ( Manual) 76H, Lymphocytes % (Manual) 16L, Monocytes % (Manual) 5, Eosinophils % ( Manual) 2, Basophils % (Manual) 1, Band Neutrophils 0, Platelet Estimate Adequate, Platelet Morphology Normal, Hypochromasia 4+, Anisocytosis 1+, Sodium Level 140, Potassium Level 4.1, Chloride Level 104, Carbon Dioxide Level 26, Anion Gap 11, Blood Urea Nitrogen 40H, Creatinine 3.1H, Estimat Glomerular Filtration Rate 17.2, Glucose Level 114H, Calcium Level 8.7, Phosphorus Level 1.9L Height (Feet): 5 Height (Inches): 6.00 Weight (Pounds): 110 Objective General Appearance: confused, cachetic, thin Lines, tubes and drains: peripheral HEENT: normocephalic, atraumatic Respiratory/Chest: chest wall non-tender, no respiratory distress Cardiovascular/Chest: normal peripheral pulses Abdomen: feeding tube Extremities: non-pitting, no cyanosis, other - unable to move extremities. Skin Exam: other - pressure ulcers Rory Oconnor M.D. September 10, 2019 13:33
[2019-09-10 16:00] VITALS: BP 112/62
--- NOTE | 2019-09-10 18:07 | General Progress Note ---
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 #ESRD on HD #Acute on chronic anemia #Anemia of ESRD -Serum hgb down to 6.9 today -Continue to monitor -cont. to monitor for signs/symptoms of bleeding -Transfuse for hgb <7.0 during HD -EPOGEN per nephro -Renal and Heme following #ESBL Klebsiella UTI #Indwelling Sanchez catheter #Gram positive bacteremia -Highly elevated WBC and RBC on UA; 3+ LE -Cont vanco and bethany -ID following #HTN #elevated troponin #Elevated BNP -trops stable at baseline -likely due to demand ischemia, ESRD, sepsis -ASA, statin -Resume home Lasix -hydralazine PRN for SBP >160 -Carvedilol 6.25 mg BID -Cardio following #Dysphagia -s/p PEG -tolerating TF -Dietary and GI following, recs appreciated #Advanced Dementia -stable -neuro following, appreciate recs #Pressure wounds -Will consult wound care Spent 36 minutes on the patient's case and 20 on counseling and care coordination. Case discussed with RN at the bedside, nephrology. Case discussed with Consultants on the phone. Subjective Date patient seen: September 10, 2019 Time patient seen: 11:00 ROS Limited/Unobtainable: Yes Allergies: Coded Allergies: No Known Allergies (Unverified , 06/24/19) Subjective Follow up for sepsis, ESBL klebsiella UTI, gram positive bacteremia, acute on chronic anemia, ESRD. No acute events overnight Objective Last 24 Hour Vital Signs Date Time Temp Pulse Resp B/P (MAP) Pulse Ox O2 Delivery O2 Flow Rate FiO2 09/10/19 16:00 98.8 116 21 112/62 (79) 100 09/10/19 12:00 97 09/10/19 12:00 97.8 95 20 105/59 (74) 96 09/10/19 09:00 97 105/48 09/10/19 09:00 Room Air 09/10/19 08:00 98.8 97 20 105/48 (67) 97 09/10/19 08:00 95 09/10/19 04:00 98.8 105 21 112/62 (79) 100 09/10/19 04:00 114 5/19/20 00:00 60 09/10/19 00:00 98.9 99 23 106/56 (73) 94 09/09/19 22:04 64 129/66 09/09/19 21:00 Room Air 09/09/19 20:00 97.7 64 19 129/66 (87) 100 09/09/19 20:00 90 Intake and Output 09/09/19 09/10/19 19:00 07:00 Intake Total 540 ml Output Total 400 ml 350 ml Balance -400 ml 190 ml Intake Oral 500 ml Tube Feeding 40 ml Output Urine Total 400 ml 350 ml Laboratory Tests 09/10/19 06:34: Hepatitis B Surface Antigen [Pending] 09/10/19 06:35: White Blood Count 13.1H, Red Blood Count 2.45L, Hemoglobin 6.9*L, Hematocrit 21.7L, Mean Corpuscular Volume 89, Mean Corpuscular Hemoglobin 28.1, Mean Corpuscular Hemoglobin Concent 31.6L, Red Cell Distribution Width 16.5H, Platelet Count 207, Mean Platelet Volume 5.2L, Neutrophils (%) (Auto) , Lymphocytes (%) (Auto) , Monocytes (%) (Auto) , Eosinophils (%) (Auto) , Basophils (%) (Auto) , Differential Total Cells Counted 100, Neutrophils % ( Manual) 76H, Lymphocytes % (Manual) 16L, Monocytes % (Manual) 5, Eosinophils % ( Manual) 2, Basophils % (Manual) 1, Band Neutrophils 0, Platelet Estimate Adequate, Platelet Morphology Normal, Hypochromasia 4+, Anisocytosis 1+, Sodium Level 140, Potassium Level 4.1, Chloride Level 104, Carbon Dioxide Level 26, Anion Gap 11, Blood Urea Nitrogen 40H, Creatinine 3.1H, Estimat Glomerular Filtration Rate 17.2, Glucose Level 114H, Calcium Level 8.7, Phosphorus Level 1.9L Height (Feet): 5 Height (Inches): 6.00 Weight (Pounds): 110 General Appearance: alert Cardiovascular: normal rate, regular rhythm Respiratory/Chest: lungs clear, normal breath sounds Abdomen: non tender, soft Oumar Foy MD September 10, 2019 18:07
[2019-09-10 20:00] VITALS: BP 130/74
[2019-09-10] MEDS: Meropenem 500mg/NS 55ml IVPB SCH ×2 (20:31)
[2019-09-10] MEDS: Iron Sucrose 100 MG in NS 55 ML IV SCH (21:22)
--- NOTE | 2019-09-10 23:45 | Consultation ---
DATE OF CONSULTATION: 09/10/2019 PULMONARY CONSULTATION CONSULTING PHYSICIAN: Abrahan Samaniego MD. HISTORY OF PRESENT ILLNESS: This is an 89-year-old female with a history of hypertension, ESRD on dialysis, chronic dysphagia who was brought to the hospital with anemia. Patient has also been found to be mildly hypoxic and COVID-19 test has been obtained. Currently, however, 92% on room air. Her imaging studies have shown left basilar opacity suspicious for atelectasis. Currently, patient is unable to provide any further history. PAST MEDICAL HISTORY: ESRD on dialysis, chronic dysphagia, decubitus ulcers, hypertension. SOCIAL HISTORY: She is a retirement resident. HOME MEDICATIONS: Reviewed, reconciled in chart. PHYSICAL EXAMINATION: GENERAL: Reveals an 89-year-old young female. HEENT: Unremarkable. CHEST: Clear breath sounds bilaterally. ABDOMEN: Soft. G-tube is noted. EXTREMITIES: There is no edema. NEUROLOGIC: Nonfocal. LABORATORY DATA: Lab testing shows hemoglobin today of 6.9, white count 13. Creatinine 3.1. D-dimer 3.5. Urinalysis shows too numerous to count wbc's. IMPRESSION: 1. UTI. 2. Anemia. 3. ESRD, on dialysis. 4. Rule out COVID-19. DISCUSSION: Continue current medications and care. Await COVID-19 test. Blood transfusion. Empiric antibiotics. Hemodialysis. We would suggest to discontinue heparin given her current anemia. We will follow carefully. Abrahan Samaniego M.D. DR: SAMEERA JOB#: [id number] CC:
[2019-09-11] VITALS: BP 127/78
[2019-09-11 04:00] VITALS: BP 133/70
[2019-09-11 04:26] LABS: BASOPHILS % (AUTO) 0.4 % (0.0-2.0); EOSINOPHILS % (AUTO) 1.1 % (0.0-3.0); MEAN CORPUSCULAR VOLUME 84 FL (80-99); MONOCYTES % (AUTO) 5.7 % (1.0-10.0); NEUTROPHILS % (AUTO) 74.8 % (45.0-75.0); PLATELET COUNT 342 K/UL (150-450); RED BLOOD COUNT 4.05 M/UL (4.20-5.40); RED CELL DISTRIBUTION WIDTH 15.1 % (11.6-14.8); WHITE BLOOD COUNT 14.9 K/UL (4.8-10.8)
[2019-09-11 04:37] LABS: ANION GAP 9 mmol/L (5-15); BLOOD UREA NITROGEN 27 mg/dL (7-18); CALCIUM 8.3 MG/DL (8.5-10.1); CARBON DIOXIDE 30 MMOL/L (21-32); CHLORIDE 101 MMOL/L (98-107); CREATININE 2.3 MG/DL (0.55-1.30); SODIUM 139 MMOL/L (136-145)
[2019-09-11 05:21] LABS: PHOSPHORUS 2.2 MG/DL (2.5-4.9)
[2019-09-11 08:00] VITALS: BP 102/64
--- NOTE | 2019-09-11 08:39 | Hematology/Onc Progress Note ---
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 Otherwise unremarkable pancreas --> as per gi, may need further eval with endsocopy --> with pancreatitis at this time, may be obscuring picture --> reimage in short order, 6 months --> ca19.9 60 but may be elevated due to pancreatitis --> cea of 10--> --> monitor lfts daily # Anemia of chronic disease due to underlying chronic medical issues, multifactorial v Gi bleed --> Anemia workup has been reviewed, ferritin 1300 -->1800 --> No evidence of hemolysis is noted, peripheral smear has been reviewed. --> Hgb goal >7. Transfuse prn. --> Epogen has been started --> IV IRON also started on hd --> Medications have been reviewed --> hgb 6-->7.1-->12 --> 09/07 stool ob negative --> rbc: 2 inits 09/10/2019, --> bone marrow biopsy is not indicated given the other more likely causes # Leukocytosis/elevated white blood cell count, unspecified likely related to underlying stress reaction, smoking v more likely infection in this case, uti now --> have reviewed peripheral smear and bandemia/neutrophilia noted --> continue antibiotics if they have been started by ID team --> monitor for resolution --> as per id care, on broad spectrum abx --> wbc 14-->12-->9-->14.9 --> per id recs, on: cftx-->bethany/vanc # Thrombocytopenia - potential causes multifactorial, evaluate liver and viral etiologies to begin, in this case due to sepsisand pancreatitis --> Hep panel and HIV are both negative --> US abd to evaluate for cirrhosis and hsm --> pleural effusions noted, hsm is neg --> Peripheral smear ordered to evaluate for blasts /schistocytes --> abx and other meds have been reviewed --> ok for ppx if plt >50k w/ either heparin or lovenox # 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 Greatly appreciate consultation. Subjective Allergies: Coded Allergies: No Known Allergies (Unverified , 06/24/19) Subjective 09/09 on tele, labs pending, stool ob negative, iv abx 09/10 s/p 2 units rbc, hgb improved to 12, on iv iron, hep b neg. Objective Objective Current Medications Medications (Trade) Dose Ordered Sig/Joan Route PRN Reason Start Time Stop Time Status Last Admin Dose Admin Acetaminophen (Tylenol) 650 mg Q4H PRN GT Mild Pain (Pain Scale 1-3) 09/08/19 06:15 10/08/19 03:29 09/09/19 00:57 Atorvastatin Calcium (Lipitor) 10 mg BEDTIME GT 09/08/19 21:00 12/07/19 20:59 09/10/19 21:21 Carvedilol (Coreg) 6.25 mg EVERY 12 HOURS GT 09/08/19 09:00 10/08/19 08:59 09/10/19 21:28 Epoetin Dion (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)) 6,000 unit MON-MON-MON SUBQ 09/11/19 21:00 12/08/19 20:59 Gabapentin (Neurontin) 300 mg THREE TIMES A DAY GT 09/08/19 09:00 10/08/19 08:59 09/10/19 19:40 Iron Sucrose 100 mg/Sodium Chloride 60 ml @ 240 mls/hr BEDTIME IV 09/08/19 21:00 09/12/19 21:14 09/10/19 21:22 Loperamide HCl (Imodium) 2 mg Q4H PRN GT Diarrhea 09/08/19 06:15 10/08/19 03:44 Meropenem 500 mg/ Sodium Chloride 55 ml @ 110 mls/hr Q24H IVPB 09/09/19 16:00 09/14/19 15:59 09/10/19 20:31 Vancomycin HCl (Vanco rx to dose) 1 ea DAILY PRN MISC Per rx protocol 09/09/19 13:00 10/09/19 12:59 Last 24 Hour Vital Signs Date Time Temp Pulse Resp B/P (MAP) Pulse Ox O2 Delivery O2 Flow Rate FiO2 09/11/19 04:00 106 09/11/19 04:00 98.1 96 18 133/70 (91) 95 09/11/19 00:00 117 09/11/19 00:00 98.2 92 20 127/78 (94) 96 09/10/19 21:28 100 130/74 09/10/19 21:00 Room Air 09/10/19 20:00 98.0 100 21 130/74 (92) 96 09/10/19 20:00 98 09/10/19 16:00 98.8 116 21 112/62 (79) 100 09/10/19 16:00 114 09/10/19 12:00 97 09/10/19 12:00 97.8 95 20 105/59 (74) 96 09/10/19 09:00 97 105/48 09/10/19 09:00 Room Air 09/10/19 08:00 98.8 97 20 105/48 (67) 97 09/10/19 08:00 95 09/10/19 04:00 98.8 105 21 112/62 (79) 100 09/10/19 04:00 114 09/10/19 00:00 60 09/10/19 00:00 98.9 99 23 106/56 (73) 94 09/09/19 22:04 64 129/66 09/09/19 21:00 Room Air 09/09/19 20:00 97.7 64 19 129/66 (87) 100 09/09/19 20:00 90 09/09/19 16:00 98.6 98 19 130/65 (86) 100 09/09/19 16:00 87 09/09/19 12:00 88 09/09/19 12:00 98.2 93 19 125/61 (82) 100 09/09/19 10:03 95 122/54 09/09/19 09:00 Room Air Intake and Output 09/10/19 09/11/19 19:00 07:00 Output Total 350 ml 2100 ml Balance -350 ml -2100 ml Output Urine Total 350 ml 100 ml Hemodialysis UF 2000 ml # Voids 1 # Bowel Movements 2 Labs Test 09/08/19 14:20 09/09/19 06:10 5/18/20 10:11 09/10/19 06:34 Stool Occult Blood Negative (NEGATIVE) White Blood Count 12.4 K/UL (4.8-10.8) Red Blood Count 2.53 M/UL (4.20-5.40) Hemoglobin 7.1 G/DL (12.0-16.0) Hematocrit 22.6 % (37.0-47.0) Mean Corpuscular Volume 89 FL (80-99) Mean Corpuscular Hemoglobin 28.0 PG (27.0-31.0) Mean Corpuscular Hemoglobin Concent 31.4 G/DL (32.0-36.0) Red Cell Distribution Width 16.4 % (11.6-14.8) Platelet Count 350 K/UL (150-450) Mean Platelet Volume 5.7 FL (6.5-10.1) Neutrophils (%) (Auto) % (45.0-75.0) Lymphocytes (%) (Auto) % (20.0-45.0) Monocytes (%) (Auto) % (1.0-10.0) Eosinophils (%) (Auto) % (0.0-3.0) Basophils (%) (Auto) % (0.0-2.0) Differential Total Cells Counted 100 Neutrophils % (Manual) 65 % (45-75) Lymphocytes % (Manual) 28 % (20-45) Monocytes % (Manual) 5 % (1-10) Eosinophils % (Manual) 2 % (0-3) Basophils % (Manual) 0 % (0-2) Band Neutrophils 0 % (0-8) Platelet Estimate Adequate Platelet Morphology Normal Polychromasia 1+ Hypochromasia 2+ Anisocytosis 1+ Sodium Level 143 MMOL/L (136-145) Potassium Level 3.8 MMOL/L (3.5-5.1) Chloride Level 107 MMOL/L (98-107) Carbon Dioxide Level 28 MMOL/L (21-32) Anion Gap 8 mmol/L (5-15) Blood Urea Nitrogen 28 mg/dL (7-18) Creatinine 2.6 MG/DL (0.55-1.30) Estimat Glomerular Filtration Rate 21.1 mL/min (>60) Glucose Level 127 MG/DL (74-106) Calcium Level 8.3 MG/DL (8.5-10.1) Phosphorus Level 1.7 MG/DL (2.5-4.9) Magnesium Level 2.0 MG/DL (1.8-2.4) Ferritin 1687 NG/ML (8-388) Troponin I 0.028 ng/mL (0.000-0.056) Pro-B-Type Natriuretic Peptide 8161 pg/mL (0-125) Carcinoembryonic Antigen 7.8 ng/mL (0.0-4.7) Hepatitis B Surface Antigen Negative (NEGATIVE) Test 09/10/19 06:35 09/11/19 04:00 White Blood Count 13.1 K/UL (4.8-10.8) 14.9 K/UL (4.8-10.8) Red Blood Count 2.45 M/UL (4.20-5.40) 4.05 M/UL (4.20-5.40) Hemoglobin 6.9 G/DL (12.0-16.0) 12.0 G/DL (12.0-16.0) Hematocrit 21.7 % (37.0-47.0) 34.0 % (37.0-47.0) Mean Corpuscular Volume 89 FL (80-99) 84 FL (80-99) Mean Corpuscular Hemoglobin 28.1 PG (27.0-31.0) 29.6 PG (27.0-31.0) Mean Corpuscular Hemoglobin Concent 31.6 G/DL (32.0-36.0) 35.2 G/DL (32.0-36.0) Red Cell Distribution Width 16.5 % (11.6-14.8) 15.1 % (11.6-14.8) Platelet Count 207 K/UL (150-450) 342 K/UL (150-450) Mean Platelet Volume 5.2 FL (6.5-10.1) 5.8 FL (6.5-10.1) Neutrophils (%) (Auto) % (45.0-75.0) 74.8 % (45.0-75.0) Lymphocytes (%) (Auto) % (20.0-45.0) 18.0 % (20.0-45.0) Monocytes (%) (Auto) % (1.0-10.0) 5.7 % (1.0-10.0) Eosinophils (%) (Auto) % (0.0-3.0) 1.1 % (0.0-3.0) Basophils (%) (Auto) % (0.0-2.0) 0.4 % (0.0-2.0) Differential Total Cells Counted 100 Neutrophils % (Manual) 76 % (45-75) Lymphocytes % (Manual) 16 % (20-45) Monocytes % (Manual) 5 % (1-10) Eosinophils % (Manual) 2 % (0-3) Basophils % (Manual) 1 % (0-2) Band Neutrophils 0 % (0-8) Platelet Estimate Adequate Platelet Morphology Normal Hypochromasia 4+ Anisocytosis 1+ Sodium Level 140 MMOL/L (136-145) 139 MMOL/L (136-145) Potassium Level 4.1 MMOL/L (3.5-5.1) 3.0 MMOL/L (3.5-5.1) Chloride Level 104 MMOL/L (98-107) 101 MMOL/L (98-107) Carbon Dioxide Level 26 MMOL/L (21-32) 30 MMOL/L (21-32) Anion Gap 11 mmol/L (5-15) 9 mmol/L (5-15) Blood Urea Nitrogen 40 mg/dL (7-18) 27 mg/dL (7-18) Creatinine 3.1 MG/DL (0.55-1.30) 2.3 MG/DL (0.55-1.30) Estimat Glomerular Filtration Rate 17.2 mL/min (>60) 24.2 mL/min (>60) Glucose Level 114 MG/DL (74-106) 140 MG/DL (74-106) Calcium Level 8.7 MG/DL (8.5-10.1) 8.3 MG/DL (8.5-10.1) Phosphorus Level 1.9 MG/DL (2.5-4.9) 2.2 MG/DL (2.5-4.9) Magnesium Level 1.7 MG/DL (1.8-2.4) Height (Feet): 5 Height (Inches): 6.00 Weight (Pounds): 119 Objective Physical Exam: Vitals: reviewed General: NAD, groans to pain stimuli HEENT: nc, at Neck: supple Chest: clear breath sounds bilaterally Cardiovascular: RRR, no s3, s4 Abdomen: soft, nontender, nd ++ peg Extremities: no cce, normal range of motion Neuro: confused, nonverbal Skin: other - pressure sores to right side Bola Aldridge MD September 11, 2019 08:39
[2019-09-11] MEDS: Carvedilol 6.25mg Tab GT SCH ×2 (09:00→20:51)
--- NOTE | 2019-09-11 09:19 | Diagnostic Imaging Report ---
Procedure: XRAY Chest 1v Reason for study: Shortness of breath. Comparison films: 09/07/2019. FINDINGS: Right central venous catheter remains in place. Vascularity is normal. Mild left basilar hazy densities unchanged. Cardiac and mediastinal silhouette are within normal limits. There may be a trace left effusion. The bony thorax appear unremarkable. IMPRESSION: NO ACUTE CARDIOPULMONARY DISEASE.
--- NOTE | 2019-09-11 09:21 | Cardiac Electrophysiology PN ---
Assessment/Plan Assessment/Plan 1. BNP of more than 6000. Had HD yesterday. Echo EF 65%. Ruled out for TX 2. Hypertension. Continue Coreg 6.25 mg b.i.d. and HD 3. Elevated white count and UTI. On Ceftriaxone per Dr. Rosado. 4. Dysphagia, status post PEG placement. 5. Dementia. 6. ESRD had HD yesteday per Dr. Bowen. 7. Severe anemia Hb 6.9, S/P 2 units of PRBC DW RN Subjective Subjective Had 2 units of PRBC with HD yesterday. Stool OB is negative. Nonverbal. First Covid on 09/06 was negative Objective Last 24 Hour Vital Signs Date Time Temp Pulse Resp B/P (MAP) Pulse Ox O2 Delivery O2 Flow Rate FiO2 09/11/19 08:00 98.2 104 22 102/64 (77) 96 09/11/19 04:00 106 09/11/19 04:00 98.1 96 18 133/70 (91) 95 09/11/19 00:00 117 09/11/19 00:00 98.2 92 20 127/78 (94) 96 09/10/19 21:28 100 130/74 09/10/19 21:00 Room Air 09/10/19 20:00 98.0 100 21 130/74 (92) 96 09/10/19 20:00 98 09/10/19 16:00 98.8 116 21 112/62 (79) 100 09/10/19 16:00 114 09/10/19 12:00 97 09/10/19 12:00 97.8 95 20 105/59 (74) 96 Intake and Output 09/10/19 09/11/19 19:00 07:00 Output Total 350 ml 2100 ml Balance -350 ml -2100 ml Output Urine Total 350 ml 100 ml Hemodialysis UF 2000 ml # Voids 1 # Bowel Movements 2 Laboratory Tests Test 09/11/19 04:00 White Blood Count 14.9 K/UL (4.8-10.8) H Red Blood Count 4.05 M/UL (4.20-5.40) L Hemoglobin 12.0 G/DL (12.0-16.0) # Hematocrit 34.0 % (37.0-47.0) #L Mean Corpuscular Volume 84 FL (80-99) Mean Corpuscular Hemoglobin 29.6 PG (27.0-31.0) Mean Corpuscular Hemoglobin Concent 35.2 G/DL (32.0-36.0) Red Cell Distribution Width 15.1 % (11.6-14.8) H Platelet Count 342 K/UL (150-450) # Mean Platelet Volume 5.8 FL (6.5-10.1) L Neutrophils (%) (Auto) 74.8 % (45.0-75.0) Lymphocytes (%) (Auto) 18.0 % (20.0-45.0) L Monocytes (%) (Auto) 5.7 % (1.0-10.0) Eosinophils (%) (Auto) 1.1 % (0.0-3.0) Basophils (%) (Auto) 0.4 % (0.0-2.0) Sodium Level 139 MMOL/L (136-145) Potassium Level 3.0 MMOL/L (3.5-5.1) L Chloride Level 101 MMOL/L (98-107) Carbon Dioxide Level 30 MMOL/L (21-32) Anion Gap 9 mmol/L (5-15) Blood Urea Nitrogen 27 mg/dL (7-18) H Creatinine 2.3 MG/DL (0.55-1.30) H Estimat Glomerular Filtration Rate 24.2 mL/min (>60) Glucose Level 140 MG/DL (74-106) H Calcium Level 8.3 MG/DL (8.5-10.1) L Phosphorus Level 2.2 MG/DL (2.5-4.9) L Magnesium Level 1.7 MG/DL (1.8-2.4) L Microbiology Date/Time Source Procedure Growth Status 09/10/19 06:35 Blood Blood Culture - Preliminary NO GROWTH AFTER 24 HOURS Resulted 09/10/19 06:25 Blood Blood Culture - Preliminary NO GROWTH AFTER 24 HOURS Resulted Objective HEAD AND NECK: Shows no JVD. LUNGS: Coarse rhonchi. CARDIOVASCULAR: Shows regular S1 and S2 with no gallop. ABDOMEN: Status post G-tube. EXTREMITIES: No pitting edema. Cristopher Osman MD September 11, 2019 09:21
--- NOTE | 2019-09-11 09:40 | General Progress Note ---
Assessment/Plan Assessment/Plan: Assessment/Plan Status: stable Assessment/Plan: 1. End-stage renal disease, on hemodialysis. 2. Anemia iron def 3. Dysphagia, status post G-tube placement. 4. Pneumonia. 5. Pancreatic cyst. 6. Hypertension. 7. elevated CEA of 10 8. CAD 9. UTI chart from prior admissions reviewed iv iron repeat stool ob>> neg transfuse to keep HGB above 7>> ordered one unit with HD for today GTF 40 cc HD per nephrology will fu Subjective ROS Limited/Unobtainable: No Allergies: Coded Allergies: No Known Allergies (Unverified , 06/24/19) Objective Last 24 Hour Vital Signs Date Time Temp Pulse Resp B/P (MAP) Pulse Ox O2 Delivery O2 Flow Rate FiO2 09/11/19 08:00 98.2 104 22 102/64 (77) 96 09/11/19 04:00 106 09/11/19 04:00 98.1 96 18 133/70 (91) 95 09/11/19 00:00 117 09/11/19 00:00 98.2 92 20 127/78 (94) 96 09/10/19 21:28 100 130/74 09/10/19 21:00 Room Air 09/10/19 20:00 98.0 100 21 130/74 (92) 96 09/10/19 20:00 98 09/10/19 16:00 98.8 116 21 112/62 (79) 100 09/10/19 16:00 114 09/10/19 12:00 97 09/10/19 12:00 97.8 95 20 105/59 (74) 96 Intake and Output 09/10/19 09/11/19 19:00 07:00 Output Total 350 ml 2100 ml Balance -350 ml -2100 ml Output Urine Total 350 ml 100 ml Hemodialysis UF 2000 ml # Voids 1 # Bowel Movements 2 Laboratory Tests 09/11/19 04:00: White Blood Count 14.9H, Red Blood Count 4.05L, Hemoglobin 12.0#, Hematocrit 34.0#L, Mean Corpuscular Volume 84, Mean Corpuscular Hemoglobin 29.6, Mean Corpuscular Hemoglobin Concent 35.2, Red Cell Distribution Width 15.1H, Platelet Count 342#, Mean Platelet Volume 5.8L, Neutrophils (%) (Auto) 74.8, Lymphocytes (%) (Auto) 18.0L, Monocytes (%) (Auto) 5.7, Eosinophils (%) (Auto) 1.1, Basophils (%) (Auto) 0.4, Sodium Level 139, Potassium Level 3.0L, Chloride Level 101, Carbon Dioxide Level 30, Anion Gap 9, Blood Urea Nitrogen 27H, Creatinine 2.3H, Estimat Glomerular Filtration Rate 24.2, Glucose Level 140H, Calcium Level 8.3L, Phosphorus Level 2.2L, Magnesium Level 1.7L Height (Feet): 5 Height (Inches): 6.00 Weight (Pounds): 119 General Appearance: no apparent distress EENT: normal ENT inspection Neck: supple Cardiovascular: normal rate Respiratory/Chest: decreased breath sounds Abdomen: normal bowel sounds, non tender, soft Extremities: non-tender Jun Mena MD September 11, 2019 09:40
--- NOTE | 2019-09-11 10:32 | Nephrology Progress Note ---
Assessment/Plan Plan #ESRD on HD TTHS- #anemia of CKD #UTI #dysphagia s/p PEG #multiple pressure wounds #HTN - s/p HD yesterday - s/p 2 units of prbc - STRICT I&Os - daily weights - replete lytes - prbc transfusion for hemoglobin < 7 - increase epo to 6k TIW - IV iron - monitor CBC - on vancomycin and meropenem - continue coreg 6.25mg BID - replete phos - monitor mag, phos and BMP daily Time spent 45 min > 50% on care coordination and counseling Subjective ROS Limited/Unobtainable: Yes Subjective s/p HD yesterday s/p 2 units of prbc UOP 450 on IV iron evaluated by GI Objective Objective Last 24 Hour Vital Signs Date Time Temp Pulse Resp B/P (MAP) Pulse Ox O2 Delivery O2 Flow Rate FiO2 09/11/19 09:00 100 102/64 09/11/19 08:00 98.2 104 22 102/64 (77) 96 09/11/19 08:00 100 09/11/19 04:00 106 09/11/19 04:00 98.1 96 18 133/70 (91) 95 09/11/19 00:00 117 09/11/19 00:00 98.2 92 20 127/78 (94) 96 09/10/19 21:28 100 130/74 09/10/19 21:00 Room Air 09/10/19 20:00 98.0 100 21 130/74 (92) 96 09/10/19 20:00 98 09/10/19 16:00 98.8 116 21 112/62 (79) 100 09/10/19 16:00 114 09/10/19 12:00 97 09/10/19 12:00 97.8 95 20 105/59 (74) 96 Intake and Output 09/10/19 09/11/19 19:00 07:00 Output Total 350 ml 2100 ml Balance -350 ml -2100 ml Output Urine Total 350 ml 100 ml Hemodialysis UF 2000 ml # Voids 1 # Bowel Movements 2 Laboratory Tests 09/11/19 04:00: White Blood Count 14.9H, Red Blood Count 4.05L, Hemoglobin 12.0#, Hematocrit 34.0#L, Mean Corpuscular Volume 84, Mean Corpuscular Hemoglobin 29.6, Mean Corpuscular Hemoglobin Concent 35.2, Red Cell Distribution Width 15.1H, Platelet Count 342#, Mean Platelet Volume 5.8L, Neutrophils (%) (Auto) 74.8, Lymphocytes (%) (Auto) 18.0L, Monocytes (%) (Auto) 5.7, Eosinophils (%) (Auto) 1.1, Basophils (%) (Auto) 0.4, Sodium Level 139, Potassium Level 3.0L, Chloride Level 101, Carbon Dioxide Level 30, Anion Gap 9, Blood Urea Nitrogen 27H, Creatinine 2.3H, Estimat Glomerular Filtration Rate 24.2, Glucose Level 140H, Calcium Level 8.3L, Phosphorus Level 2.2L, Magnesium Level 1.7L Height (Feet): 5 Height (Inches): 6.00 Weight (Pounds): 119 Objective General Appearance: confused, cachetic, thin Lines, tubes and drains: peripheral HEENT: normocephalic, atraumatic Respiratory/Chest: chest wall non-tender, no respiratory distress Cardiovascular/Chest: normal peripheral pulses Abdomen: feeding tube Extremities: non-pitting, no cyanosis, other - unable to move extremities. Skin Exam: other - pressure ulcers Rory Oconnor M.D. September 11, 2019 10:32
[2019-09-11 12:00] VITALS: BP 114/77
--- NOTE | 2019-09-11 12:35 | Pulmonology Progress Note ---
Subjective ROS Limited/Unobtainable: Yes Interval Events: None new Constitutional: Denies: fever Gastrointestinal/Abdominal: Denies: nausea, vomiting, diarrhea Allergies: Coded Allergies: No Known Allergies (Unverified , 06/24/19) All Systems: reviewed and negative except above - All 12 point ROS negative Objective Last 24 Hour Vital Signs Date Time Temp Pulse Resp B/P (MAP) Pulse Ox O2 Delivery O2 Flow Rate FiO2 09/11/19 09:00 Room Air 09/11/19 09:00 100 102/64 09/11/19 08:00 98.2 104 22 102/64 (77) 96 09/11/19 08:00 100 09/11/19 04:00 106 09/11/19 04:00 98.1 96 18 133/70 (91) 95 09/11/19 00:00 117 09/11/19 00:00 98.2 92 20 127/78 (94) 96 09/10/19 21:28 100 130/74 09/10/19 21:00 Room Air 09/10/19 20:00 98.0 100 21 130/74 (92) 96 09/10/19 20:00 98 09/10/19 16:00 98.8 116 21 112/62 (79) 100 09/10/19 16:00 114 Intake and Output 09/10/19 09/11/19 19:00 07:00 Output Total 350 ml 2100 ml Balance -350 ml -2100 ml Output Urine Total 350 ml 100 ml Hemodialysis UF 2000 ml # Voids 1 # Bowel Movements 2 General Appearance: no acute distress HEENT: normocephalic Respiratory: chest wall non-tender, lungs clear Cardiovascular: normal peripheral pulses, normal rate Abdomen: normal bowel sounds Microbiology Date/Time Source Procedure Growth Status 09/10/19 06:35 Blood Blood Culture - Preliminary NO GROWTH AFTER 24 HOURS Resulted 09/10/19 06:25 Blood Blood Culture - Preliminary NO GROWTH AFTER 24 HOURS Resulted Laboratory Tests 09/11/19 04:00: White Blood Count 14.9H, Red Blood Count 4.05L, Hemoglobin 12.0#, Hematocrit 34.0#L, Mean Corpuscular Volume 84, Mean Corpuscular Hemoglobin 29.6, Mean Corpuscular Hemoglobin Concent 35.2, Red Cell Distribution Width 15.1H, Platelet Count 342#, Mean Platelet Volume 5.8L, Neutrophils (%) (Auto) 74.8, Lymphocytes (%) (Auto) 18.0L, Monocytes (%) (Auto) 5.7, Eosinophils (%) (Auto) 1.1, Basophils (%) (Auto) 0.4, Sodium Level 139, Potassium Level 3.0L, Chloride Level 101, Carbon Dioxide Level 30, Anion Gap 9, Blood Urea Nitrogen 27H, Creatinine 2.3H, Estimat Glomerular Filtration Rate 24.2, Glucose Level 140H, Calcium Level 8.3L, Phosphorus Level 2.2L, Magnesium Level 1.7L Current Medications Medications (Trade) Dose Ordered Sig/Joan Route PRN Reason Start Time Stop Time Status Last Admin Dose Admin Acetaminophen (Tylenol) 650 mg Q4H PRN GT Mild Pain (Pain Scale 1-3) 09/08/19 06:15 10/08/19 03:29 09/09/19 00:57 Atorvastatin Calcium (Lipitor) 10 mg BEDTIME GT 09/08/19 21:00 12/07/19 20:59 09/10/19 21:21 Carvedilol (Coreg) 6.25 mg EVERY 12 HOURS GT 09/08/19 09:00 10/08/19 08:59 09/10/19 21:28 Epoetin Doin (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)) 6,000 unit SUBQ 09/11/19 21:00 12/08/19 20:59 Gabapentin (Neurontin) 300 mg THREE TIMES A DAY GT 09/08/19 09:00 10/08/19 08:59 09/11/19 10:24 Iron Sucrose 100 mg/Sodium Chloride 60 ml @ 240 mls/hr BEDTIME IV 09/08/19 21:00 09/12/19 21:14 09/10/19 21:22 Loperamide HCl (Imodium) 2 mg Q4H PRN GT Diarrhea 09/08/19 06:15 10/08/19 03:44 Magnesium Sulfate 100 ml @ 100 mls/hr Q1H IVPB 09/11/19 11:00 09/11/19 12:59 09/11/19 11:55 Meropenem 500 mg/ Sodium Chloride 55 ml @ 110 mls/hr Q24H IVPB 09/09/19 16:00 09/14/19 15:59 09/10/19 20:31 Potassium Phosphate 20 mm/ Sodium Chloride 281.6667 ml @ 46.944 m... ONCE ONCE IV 09/11/19 13:00 09/11/19 18:59 Vancomycin HCl (Vanco rx to dose) 1 ea DAILY PRN MISC Per rx protocol 09/09/19 13:00 10/09/19 12:59 Assessment/Plan Assessment/Plan IMPRESSION: 1. UTI. 2. Anemia. 3. ESRD, on dialysis. 4. Initial COVID-19 negative. DISCUSSION: Continue current medications and care. Initial COVID-19 pcr negative Blood transfusion. Empiric antibiotics. Hemodialysis. I will follow carefully. Ross Nina Omar Syed MD September 11, 2019 12:35
[2019-09-11] MEDS ORDERED: Potassium Phosphate 20 MM in NS 275 ML IV ONE (13:00)
--- NOTE | 2019-09-11 14:09 | Surgery Progress Note ---
Surgery Progress Note Subjective Additional Comments transfused prbc h/h stable labs noted Objective Last 24 Hour Vital Signs Date Time Temp Pulse Resp B/P (MAP) Pulse Ox O2 Delivery O2 Flow Rate FiO2 09/11/19 12:00 102 09/11/19 12:00 99.6 110 22 114/77 (89) 98 09/11/19 09:00 Room Air 09/11/19 09:00 100 102/64 09/11/19 08:00 98.2 104 22 102/64 (77) 96 09/11/19 08:00 100 09/11/19 04:00 106 09/11/19 04:00 98.1 96 18 133/70 (91) 95 09/11/19 00:00 117 09/11/19 00:00 98.2 92 20 127/78 (94) 96 09/10/19 21:28 100 130/74 09/10/19 21:00 Room Air 09/10/19 20:00 98.0 100 21 130/74 (92) 96 09/10/19 20:00 98 09/10/19 16:00 98.8 116 21 112/62 (79) 100 09/10/19 16:00 114 I&O Intake and Output 09/10/19 09/11/19 19:00 07:00 Output Total 350 ml 2100 ml Balance -350 ml -2100 ml Output Urine Total 350 ml 100 ml Hemodialysis UF 2000 ml # Voids 1 # Bowel Movements 2 Dressing: other Wound: other Drains: other Cardiovascular: RSR Respiratory: decreased breath sounds Abdomen: soft, non-tender, present bowel sounds Extremities: no tenderness, no cyanosis Laboratory Tests Test 09/11/19 04:00 White Blood Count 14.9 K/UL (4.8-10.8) H Red Blood Count 4.05 M/UL (4.20-5.40) L Hemoglobin 12.0 G/DL (12.0-16.0) # Hematocrit 34.0 % (37.0-47.0) #L Mean Corpuscular Volume 84 FL (80-99) Mean Corpuscular Hemoglobin 29.6 PG (27.0-31.0) Mean Corpuscular Hemoglobin Concent 35.2 G/DL (32.0-36.0) Red Cell Distribution Width 15.1 % (11.6-14.8) H Platelet Count 342 K/UL (150-450) # Mean Platelet Volume 5.8 FL (6.5-10.1) L Neutrophils (%) (Auto) 74.8 % (45.0-75.0) Lymphocytes (%) (Auto) 18.0 % (20.0-45.0) L Monocytes (%) (Auto) 5.7 % (1.0-10.0) Eosinophils (%) (Auto) 1.1 % (0.0-3.0) Basophils (%) (Auto) 0.4 % (0.0-2.0) Sodium Level 139 MMOL/L (136-145) Potassium Level 3.0 MMOL/L (3.5-5.1) L Chloride Level 101 MMOL/L (98-107) Carbon Dioxide Level 30 MMOL/L (21-32) Anion Gap 9 mmol/L (5-15) Blood Urea Nitrogen 27 mg/dL (7-18) H Creatinine 2.3 MG/DL (0.55-1.30) H Estimat Glomerular Filtration Rate 24.2 mL/min (>60) Glucose Level 140 MG/DL (74-106) H Calcium Level 8.3 MG/DL (8.5-10.1) L Phosphorus Level 2.2 MG/DL (2.5-4.9) L Magnesium Level 1.7 MG/DL (1.8-2.4) L Plan Problems: (1) COVID-19 ruled out Assessment & Plan: FINDINGS: Lungs: Left basilar opacity with volume loss, likely atelectasis however a focus of infection could have a similar appearance. Pleural space: No pleural effusion. No pneumothorax. Heart: Unremarkable. No cardiomegaly. Bones/joints: No fracture. Vasculature: Atherosclerotic calcifications. Tubes, lines and devices: Right IJ large bore dialysis catheter terminates within the right atrium. IMPRESSION: Left basilar opacity with volume loss, likely atelectasis however a focus of infection could have a similar appearance. leukocytosis anemia pending test (2) Protein calorie malnutrition Assessment & Plan: DAILY ESTIMATED NEEDS: Needs based on Wounds, HD 57kg 30-35 kcals/kg 5634-3383 total kcals 1.25-1.8 g protein/kg 71-103 g total protein Fluids per MD NUTRITION DIAGNOSIS: * Increased kcal and prot needs r/t wound healing and renal failure as evidenced by w/ multiple pressure injuries, including full thickness and unstageable wounds, refer to MD reports, pt w/ ESRD on HD, GT dep. CURRENT TF:Nepro @ 40ml/hr x 20 hrs ENTERAL NUTRITION RECOMMENDATIONS: Nepro @ 45ml/hr x 22 hrs to provide 990ml, 1782kcal, 80g prot, 720ml free water - Rec to INCREASE RATE AND RUNNING TIME ABOVE to better meet est kcal and pro needs - HOB over 30 degrees/ water flush per MD ADDITIONAL RECOMMENDATIONS: 1) Calibrated bedscale wt 2) Wound Care: add Nephrovite x 1 add Saw 1ptk BID via GT 3) Monitor BGs, consider NISS: BGs consistently mildly elevated 4) Monitor lytes and renal fxn (3) Pressure ulcer (4) Decubitus skin ulcer Assessment & Plan: Pt presented on admission with multiple Pressure injuries. Full thickness Pressure Injury R shoulder(L)2.8cm x (W)2cm. Base of wound is 75 % slough, 25% beefy red granulation. Slough removed with gentle friction. Post removal of slough,small amt slough at base of wound. Small amt sanguineous exudate. Edges flat and adherent to base of wound. Periwound without erythema, induration or fluctuance. Darker skin tone without induration ,fluctuance or tenderness at sacrococcygeal area. Non-blanching erythema and scattered areas of hyperpigmentation noted to R and L gluteal cheeks. Pt denied tenderness when affected areas palpated. Full thickness Pressure injury R hip (L)5.5cm x (W)10.2cm x (D)2.6cm. Base of wound is 75% pink granulation,25% Loose fibrinous slough. Bone is palpable.Edges flat ,pink and adherent to base of wound. Small amt. non-odorous serous exudate. Hypopigmentation noted to perineum and labia majora. Unstageable Pressure Injury R heel(L)3.5cm x (W)3.3cm . Base of wound is 100% necrotic with semidetached with surrounding yellow slough. Edges area dry, black. Periwound is non-blanchable and fluctuant. Maroon discoloration with fluctuance noted to distal/lateral R foot (L)2.8cm x ( W)2.5cm. Resolving pressure injury R Hallux(L)3.5cm x (W)3.3cm.Tornillo epithelial at base of wound with surrounding dry brown borders. L heel is boggy with non-blanching erythema.Historical scarring from previous wounds noted. Unstageable Pressure Injury L hallux(L)3.5cm x (W)2.8cm. Base of wound has 90% loose necrotic cap,surrounding slough. Loose necrotic cap easily removed with saline moistened gauze. At base of wound is 100% yellow slough, marginal erythema with small area of necrosis noted along borders. Small amt seropurulent non-odorous exudate noted. Stable dry necrosis at L st metatarsal head. Tx.Plan: Cleanse wound R shoulder with Saline. Apply Therahoney. Apply Cavilon Skin Barrier periwound. Cover with Optifoam drsg. Change every 3 days and prn. Cleanse R hip with Saline. Loosely pack with Therahoney impregnated Kerlix. Apply Moisture Barrier Paste periwound. Cover with Optifoam drsg. Change Daily and prn. Apply Moisture Barrier Paste to Sacrum. Cover with Optifoam drsg. Change every 3 days and prn. Apply Betadine to R heel, R hallux,Distal/lateral R foot. Cover with Abd pad and wrap with Kerlix every 3 days and prn. Apply Betadine to L hallux,L 1st metatarsal head,L heel. Cover with Abd pads and wrap with Kerlix every 3 days and prn. Reposition Back to L Side at least every 2hours or as tolerated. Place Pillow between knees. Off-load heels with pillow. APM/TIEN Mattress overlay. (5) Suspected COVID-19 virus infection (6) Anemia Assessment & Plan: transfused prbc h/h stable trend labs Anshul Nava September 11, 2019 14:09
--- NOTE | 2019-09-11 14:47 | General Progress Note ---
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 #ESRD on HD #Acute on chronic anemia #Anemia of ESRD -Hb improved to 10 today -Continue to monitor -cont. to monitor for signs/symptoms of bleeding -Transfuse for hgb <7.0 during HD -EPOGEN per nephro -Renal and Heme following #ESBL Klebsiella UTI #Indwelling Sanchez catheter #Gram positive bacteremia -Highly elevated WBC and RBC on UA; 3+ LE -Cont vanco and bethany -ID following #HTN #elevated troponin #Elevated BNP -trops stable at baseline -likely due to demand ischemia, ESRD, sepsis -ASA, statin -Resume home Lasix -hydralazine PRN for SBP >160 -Carvedilol 6.25 mg BID -Cardio following #Dysphagia -s/p PEG -tolerating TF -Dietary and GI following, recs appreciated #Advanced Dementia -stable -neuro following, appreciate recs #Pressure wounds -continue LWC Anticipate discharge back to SNF tomorrow Spent 35 minutes on the patient's case and 20 on counseling and care coordination. Case discussed with RN at the bedside, nephrology. Case discussed with Consultants on the phone. Subjective Date patient seen: September 11, 2019 Time patient seen: 11:29 ROS Limited/Unobtainable: Yes Cardiovascular: Denies: chest pain Respiratory: Denies: cough Allergies: Coded Allergies: No Known Allergies (Unverified , 06/24/19) Subjective Follow up for sepsis, ESBL klebsiella UTI, gram positive bacteremia, acute on chronic anemia, ESRD. No acute events overnight Objective Last 24 Hour Vital Signs Date Time Temp Pulse Resp B/P (MAP) Pulse Ox O2 Delivery O2 Flow Rate FiO2 09/11/19 12:00 102 09/11/19 12:00 99.6 110 22 114/77 (89) 98 09/11/19 09:00 Room Air 09/11/19 09:00 100 102/64 09/11/19 08:00 98.2 104 22 102/64 (77) 96 09/11/19 08:00 100 09/11/19 04:00 106 09/11/19 04:00 98.1 96 18 133/70 (91) 95 09/11/19 00:00 117 09/11/19 00:00 98.2 92 20 127/78 (94) 96 09/10/19 21:28 100 130/74 09/10/19 21:00 Room Air 09/10/19 20:00 98.0 100 21 130/74 (92) 96 09/10/19 20:00 98 09/10/19 16:00 98.8 116 21 112/62 (79) 100 09/10/19 16:00 114 Intake and Output 09/10/19 09/11/19 19:00 07:00 Output Total 350 ml 2100 ml Balance -350 ml -2100 ml Output Urine Total 350 ml 100 ml Hemodialysis UF 2000 ml # Voids 1 # Bowel Movements 2 Laboratory Tests 09/11/19 04:00: White Blood Count 14.9H, Red Blood Count 4.05L, Hemoglobin 12.0#, Hematocrit 34.0#L, Mean Corpuscular Volume 84, Mean Corpuscular Hemoglobin 29.6, Mean Corpuscular Hemoglobin Concent 35.2, Red Cell Distribution Width 15.1H, Platelet Count 342#, Mean Platelet Volume 5.8L, Neutrophils (%) (Auto) 74.8, Lymphocytes (%) (Auto) 18.0L, Monocytes (%) (Auto) 5.7, Eosinophils (%) (Auto) 1.1, Basophils (%) (Auto) 0.4, Sodium Level 139, Potassium Level 3.0L, Chloride Level 101, Carbon Dioxide Level 30, Anion Gap 9, Blood Urea Nitrogen 27H, Creatinine 2.3H, Estimat Glomerular Filtration Rate 24.2, Glucose Level 140H, Calcium Level 8.3L, Phosphorus Level 2.2L, Magnesium Level 1.7L Height (Feet): 5 Height (Inches): 6.00 Weight (Pounds): 119 General Appearance: alert Neck: limited range of motion Cardiovascular: normal rate, regular rhythm Respiratory/Chest: lungs clear, normal breath sounds Abdomen: non tender, soft Oumar Foy MD September 11, 2019 14:47
[2019-09-11 16:00] VITALS: BP 100/68
[2019-09-11] MEDS: Meropenem 500mg/NS 55ml IVPB SCH ×2 (17:46)
--- NOTE | 2019-09-11 17:47 | Infectious Diseases Prog Note ---
Assessment/Plan Assessment/Plan ASSESSMENT AND PLAN: 1. 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 Redd 2. She has history of hemodialysis, end-stage renal disease, chronic kidney disease. 3. The patient has history of hypertension. 4. Anemia. 5. Elevated creatinine. 6. Hypertension treatment per primary care team. 7. Wound care per Surgery. 8. Dysphagia, G-tube 9. No known drug allergies. 10. Social history is negative. 11. Family History is noncontributory. 12. MAR was noted. 13. Case discussed with RN. 14. Continue treatment per primary consultants. 15. Orders were noted and entered. Subjective Constitutional: Reports: fatigue; Denies: fever HEENT: Denies: congestion Respiratory: Denies: shortness of breath Gastrointestinal/Abdominal: Denies: nausea, vomiting, diarrhea Genitourinary: Reports: other - + hargrove Neurologic: Denies: headache Psychiatric: Reports: other - NA Skin: Denies: rash Hematologic: Denies: bleeding Musculoskeletal: Denies: pain Allergies: Coded Allergies: No Known Allergies (Unverified , 06/24/19) Objective Vital Signs Last 24 Hour Vital Signs Date Time Temp Pulse Resp B/P (MAP) Pulse Ox O2 Delivery O2 Flow Rate FiO2 09/11/19 16:00 98.9 110 22 100/68 (79) 98 09/11/19 12:00 102 09/11/19 12:00 99.6 110 22 114/77 (89) 98 09/11/19 09:00 Room Air 09/11/19 09:00 100 102/64 09/11/19 08:00 98.2 104 22 102/64 (77) 96 09/11/19 08:00 100 09/11/19 04:00 106 09/11/19 04:00 98.1 96 18 133/70 (91) 95 09/11/19 00:00 117 09/11/19 00:00 98.2 92 20 127/78 (94) 96 09/10/19 21:28 100 130/74 09/10/19 21:00 Room Air 09/10/19 20:00 98.0 100 21 130/74 (92) 96 09/10/19 20:00 98 Height (Feet): 5 Height (Inches): 6.00 Weight (Pounds): 119 General Appearance: no acute distress HEENT: normocephalic, atraumatic, anicteric, mucous membranes moist Respiratory/Chest: lungs clear, normal breath sounds, no respiratory distress, no accessory muscle use Cardiovascular: normal rate, regular rhythm, no gallop/murmur, no JVD Abdomen: normal bowel sounds, soft, non tender, no organomegaly, non distended Genitourinary: other - + hargrove - urine clear Extremities: no cyanosis Skin: no rash 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 Comparison films: 09/07/2019. FINDINGS: Right central venous catheter remains in place. Vascularity is normal. Mild left basilar hazy densities unchanged. Cardiac and mediastinal silhouette are within normal limits. There may be a trace left effusion. The bony thorax appear unremarkable. IMPRESSION: NO ACUTE CARDIOPULMONARY DISEASE. Microbiology Date/Time Source Procedure Growth Status 09/10/19 06:35 Blood Blood Culture - Preliminary NO GROWTH AFTER 24 HOURS Resulted 09/08/19 07:30 Wound Gram Stain - Final Complete 09/08/19 07:30 Wound Culture - Final Usual Skin Cristina Complete 09/07/19 18:50 Nasal Nares MRSA Culture - Final NO METHICILLIN RESISTANT STAPH AUREUS... Complete 09/07/19 18:05 Urine,Clean Catch Urine Culture - Final Klebsiella Pneumoniae Esbl Pseudomonas Aeruginosa Complete 09/07/19 18:50 Rectum - Final NO CARBAPENEM-RESISTANT ENTEROBACTERI... Complete Microbiology Date/Time Source Procedure Growth Status 09/10/19 06:35 Blood Blood Culture - Preliminary NO GROWTH AFTER 24 HOURS Resulted 09/10/19 06:25 Blood Blood Culture - Preliminary NO GROWTH AFTER 24 HOURS Resulted Laboratory Tests Test 09/11/19 04:00 White Blood Count 14.9 K/UL (4.8-10.8) H Red Blood Count 4.05 M/UL (4.20-5.40) L Hemoglobin 12.0 G/DL (12.0-16.0) # Hematocrit 34.0 % (37.0-47.0) #L Mean Corpuscular Volume 84 FL (80-99) Mean Corpuscular Hemoglobin 29.6 PG (27.0-31.0) Mean Corpuscular Hemoglobin Concent 35.2 G/DL (32.0-36.0) Red Cell Distribution Width 15.1 % (11.6-14.8) H Platelet Count 342 K/UL (150-450) # Mean Platelet Volume 5.8 FL (6.5-10.1) L Neutrophils (%) (Auto) 74.8 % (45.0-75.0) Lymphocytes (%) (Auto) 18.0 % (20.0-45.0) L Monocytes (%) (Auto) 5.7 % (1.0-10.0) Eosinophils (%) (Auto) 1.1 % (0.0-3.0) Basophils (%) (Auto) 0.4 % (0.0-2.0) Sodium Level 139 MMOL/L (136-145) Potassium Level 3.0 MMOL/L (3.5-5.1) L Chloride Level 101 MMOL/L (98-107) Carbon Dioxide Level 30 MMOL/L (21-32) Anion Gap 9 mmol/L (5-15) Blood Urea Nitrogen 27 mg/dL (7-18) H Creatinine 2.3 MG/DL (0.55-1.30) H Estimat Glomerular Filtration Rate 24.2 mL/min (>60) Glucose Level 140 MG/DL (74-106) H Calcium Level 8.3 MG/DL (8.5-10.1) L Phosphorus Level 2.2 MG/DL (2.5-4.9) L Magnesium Level 1.7 MG/DL (1.8-2.4) L Current Medications Medications (Trade) Dose Ordered Sig/Joan Route PRN Reason Start Time Stop Time Status Last Admin Dose Admin Acetaminophen (Tylenol) 650 mg Q4H PRN GT Mild Pain (Pain Scale 1-3) 09/08/19 06:15 10/08/19 03:29 09/09/19 00:57 Atorvastatin Calcium (Lipitor) 10 mg BEDTIME GT 09/08/19 21:00 12/07/19 20:59 09/10/19 21:21 Carvedilol (Coreg) 6.25 mg EVERY 12 HOURS GT 09/08/19 09:00 10/08/19 08:59 09/10/19 21:28 Epoetin Dion (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)) 6,000 unit MON-MON-MON SUBQ 09/11/19 21:00 12/08/19 20:59 Gabapentin (Neurontin) 300 mg THREE TIMES A DAY GT 09/08/19 09:00 10/08/19 08:59 09/11/19 13:59 Iron Sucrose 100 mg/Sodium Chloride 60 ml @ 240 mls/hr BEDTIME IV 09/08/19 21:00 09/12/19 21:14 09/10/19 21:22 Loperamide HCl (Imodium) 2 mg Q4H PRN GT Diarrhea 09/08/19 06:15 10/08/19 03:44 Meropenem 500 mg/ Sodium Chloride 55 ml @ 110 mls/hr Q24H IVPB 09/09/19 16:00 09/14/19 15:59 09/10/19 20:31 Potassium Phosphate 20 mm/ Sodium Chloride 281.6667 ml @ 46.944 m... ONCE ONCE IV 09/11/19 13:00 09/11/19 18:59 09/11/19 13:59 Vancomycin HCl (Vanco rx to dose) 1 ea DAILY PRN MISC Per rx protocol 09/09/19 13:00 10/09/19 12:59 Ana Rosado MD September 11, 2019 17:47
[2019-09-11 20:00] VITALS: BP 123/58
[2019-09-11] MEDS: Iron Sucrose 100 MG in NS 55 ML IV SCH (20:52)
[2019-09-11] MEDS: Epoetin Alfa-EPBX(ESRD on dialysis)3000 units/ml vial SUBQ SCH (21:00)
[2019-09-12] VITALS: BP 113/56
[2019-09-12 04:00] VITALS: BP 131/53
[2019-09-12 05:21] LABS: BASOPHILS % (AUTO) 0.5 % (0.0-2.0); EOSINOPHILS % (AUTO) 2.2 % (0.0-3.0); HEMATOCRIT 32.4 % (37.0-47.0); HEMOGLOBIN 11.2 G/DL (12.0-16.0); LYMPHOCYTES % (AUTO) 24.7 % (20.0-45.0); MEAN CORPUSCULAR VOLUME 85 FL (80-99); MONOCYTES % (AUTO) 7.4 % (1.0-10.0); NEUTROPHILS % (AUTO) 65.1 % (45.0-75.0); PLATELET COUNT 333 K/UL (150-450); RED BLOOD COUNT 3.79 M/UL (4.20-5.40); RED CELL DISTRIBUTION WIDTH 14.3 % (11.6-14.8)
[2019-09-12 05:58] LABS: ANION GAP 9 mmol/L (5-15); BLOOD UREA NITROGEN 42 mg/dL (7-18); CALCIUM 8.8 MG/DL (8.5-10.1); CARBON DIOXIDE 30 MMOL/L (21-32); CHLORIDE 100 MMOL/L (98-107); PHOSPHORUS 3.5 MG/DL (2.5-4.9); POTASSIUM 3.6 MMOL/L (3.5-5.1); SODIUM 138 MMOL/L (136-145)
--- NOTE | 2019-09-12 07:32 | General Progress Note ---
Assessment/Plan Assessment/Plan: Assessment/Plan Status: stable Assessment/Plan: 1. End-stage renal disease, on hemodialysis. 2. Anemia iron def 3. Dysphagia, status post G-tube placement. 4. Pneumonia. 5. Pancreatic cyst. 6. Hypertension. 7. elevated CEA of 10 8. CAD 9. UTI chart from prior admissions reviewed iv iron repeat stool ob>> neg transfuse to keep HGB above 7 GTF 40 cc HD per nephrology will fu Subjective ROS Limited/Unobtainable: No Allergies: Coded Allergies: No Known Allergies (Unverified , 06/24/19) Objective Last 24 Hour Vital Signs Date Time Temp Pulse Resp B/P (MAP) Pulse Ox O2 Delivery O2 Flow Rate FiO2 09/12/19 04:00 87 09/12/19 04:00 98.0 88 18 131/53 (79) 96 09/12/19 00:00 98.3 87 16 113/56 (75) 99 09/12/19 00:00 86 09/11/19 21:00 Room Air 09/11/19 20:51 88 119/61 09/11/19 20:00 95 09/11/19 20:00 98.1 95 16 123/58 (79) 98 09/11/19 16:00 96 09/11/19 16:00 98.9 110 22 100/68 (79) 98 09/11/19 12:00 102 09/11/19 12:00 99.6 110 22 114/77 (89) 98 09/11/19 09:00 Room Air 09/11/19 09:00 100 102/64 09/11/19 08:00 98.2 104 22 102/64 (77) 96 09/11/19 08:00 100 Intake and Output 09/11/19 09/12/19 19:00 07:00 Output Total 400 ml Balance -400 ml Output Urine Total 400 ml # Bowel Movements 1 1 Laboratory Tests 09/12/19 04:50: White Blood Count 12.0H, Red Blood Count 3.79L, Hemoglobin 11.2L, Hematocrit 32.4L, Mean Corpuscular Volume 85, Mean Corpuscular Hemoglobin 29.4, Mean Corpuscular Hemoglobin Concent 34.5, Red Cell Distribution Width 14.3, Platelet Count 333, Mean Platelet Volume 6.1L, Neutrophils (%) (Auto) 65.1, Lymphocytes ( %) (Auto) 24.7, Monocytes (%) (Auto) 7.4, Eosinophils (%) (Auto) 2.2, Basophils (%) (Auto) 0.5, Sodium Level 138, Potassium Level 3.6, Chloride Level 100, Carbon Dioxide Level 30, Anion Gap 9, Blood Urea Nitrogen 42H, Creatinine 3.0H, Estimat Glomerular Filtration Rate 17.8, Glucose Level 124H, Calcium Level 8.8, Phosphorus Level 3.5, Magnesium Level 2.6H, Random Vancomycin Level 10.2 Height (Feet): 5 Height (Inches): 6.00 Weight (Pounds): 119 General Appearance: no apparent distress EENT: PERRL/EOMI Neck: supple Cardiovascular: normal rate Respiratory/Chest: decreased breath sounds Abdomen: normal bowel sounds, non tender, soft Extremities: non-tender Jun Mena MD September 12, 2019 07:32
--- NOTE | 2019-09-12 07:55 | Hematology/Onc Progress Note ---
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 Otherwise unremarkable pancreas --> as per gi, may need further eval with endsocopy --> with pancreatitis at this time, may be obscuring picture --> reimage in short order, 6 months --> ca19.9 60 but may be elevated due to pancreatitis --> cea of 10--> --> monitor lfts daily # Anemia of chronic disease due to underlying chronic medical issues, multifactorial v Gi bleed --> Anemia workup has been reviewed, ferritin 1300 -->1800 --> No evidence of hemolysis is noted, peripheral smear has been reviewed. --> Hgb goal >7. Transfuse prn. --> Epogen has been started --> IV IRON also started on hd --> Medications have been reviewed --> hgb 6-->7.1-->12-->11.2 --> 09/07 stool ob negative --> rbc: 2 inits 09/10/2019, --> bone marrow biopsy is not indicated given the other more likely causes # Leukocytosis/elevated white blood cell count, unspecified likely related to underlying stress reaction, smoking v more likely infection in this case, uti now --> have reviewed peripheral smear and bandemia/neutrophilia noted --> continue antibiotics if they have been started by ID team --> monitor for resolution --> as per id care, on broad spectrum abx --> wbc 14-->12-->9-->14.9-->12 --> per id recs, on: cftx-->bethany/vanc # Thrombocytopenia - potential causes multifactorial, evaluate liver and viral etiologies to begin, in this case due to sepsisand pancreatitis --> Hep panel and HIV are both negative --> US abd to evaluate for cirrhosis and hsm --> pleural effusions noted, hsm is neg --> Peripheral smear ordered to evaluate for blasts /schistocytes --> abx and other meds have been reviewed --> ok for ppx if plt >50k w/ either heparin or lovenox # 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 Greatly appreciate consultation. Subjective Allergies: Coded Allergies: No Known Allergies (Unverified , 06/24/19) Subjective 09/09 on tele, labs pending, stool ob negative, iv abx 09/10 s/p 2 units rbc, hgb improved to 12, on iv iron, hep b neg. 09/11 hd for today, h/h stable, no acute distress Objective Objective Current Medications Medications (Trade) Dose Ordered Sig/Joan Route PRN Reason Start Time Stop Time Status Last Admin Dose Admin Acetaminophen (Tylenol) 650 mg Q4H PRN GT Mild Pain (Pain Scale 1-3) 09/08/19 06:15 10/08/19 03:29 09/09/19 00:57 Atorvastatin Calcium (Lipitor) 10 mg BEDTIME GT 09/08/19 21:00 12/07/19 20:59 09/11/19 20:50 Carvedilol (Coreg) 6.25 mg EVERY 12 HOURS GT 09/08/19 09:00 10/08/19 08:59 09/11/19 20:51 Epoetin Dion (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)) 6,000 unit MON-MON-MON SUBQ 09/11/19 21:00 12/08/19 20:59 Gabapentin (Neurontin) 300 mg THREE TIMES A DAY GT 09/08/19 09:00 10/08/19 08:59 09/11/19 17:47 Iron Sucrose 100 mg/Sodium Chloride 60 ml @ 240 mls/hr BEDTIME IV 09/08/19 21:00 09/12/19 21:14 09/11/19 20:52 Loperamide HCl (Imodium) 2 mg Q4H PRN GT Diarrhea 09/08/19 06:15 10/08/19 03:44 Meropenem 500 mg/ Sodium Chloride 55 ml @ 110 mls/hr Q24H IVPB 09/09/19 16:00 09/14/19 15:59 09/11/19 17:46 Vancomycin HCl (Vanco rx to dose) 1 ea DAILY PRN MISC Per rx protocol 09/09/19 13:00 10/09/19 12:59 Last 24 Hour Vital Signs Date Time Temp Pulse Resp B/P (MAP) Pulse Ox O2 Delivery O2 Flow Rate FiO2 09/12/19 04:00 87 09/12/19 04:00 98.0 88 18 131/53 (79) 96 09/12/19 00:00 98.3 87 16 113/56 (75) 99 09/12/19 00:00 86 09/11/19 21:00 Room Air 09/11/19 20:51 88 119/61 09/11/19 20:00 95 09/11/19 20:00 98.1 95 16 123/58 (79) 98 09/11/19 16:00 96 09/11/19 16:00 98.9 110 22 100/68 (79) 98 09/11/19 12:00 102 09/11/19 12:00 99.6 110 22 114/77 (89) 98 09/11/19 09:00 Room Air 09/11/19 09:00 100 102/64 09/11/19 08:00 98.2 104 22 102/64 (77) 96 09/11/19 08:00 100 09/11/19 04:00 106 09/11/19 04:00 98.1 96 18 133/70 (91) 95 09/11/19 00:00 117 09/11/19 00:00 98.2 92 20 127/78 (94) 96 09/10/19 21:28 100 130/74 09/10/19 21:00 Room Air 09/10/19 20:00 98.0 100 21 130/74 (92) 96 09/10/19 20:00 98 09/10/19 16:00 98.8 116 21 112/62 (79) 100 09/10/19 16:00 114 09/10/19 12:00 97 09/10/19 12:00 97.8 95 20 105/59 (74) 96 09/10/19 09:00 97 105/48 09/10/19 09:00 Room Air 09/10/19 08:00 98.8 97 20 105/48 (67) 97 09/10/19 08:00 95 Intake and Output 09/11/19 09/12/19 19:00 07:00 Output Total 400 ml Balance -400 ml Output Urine Total 400 ml # Bowel Movements 1 1 Labs Test 09/09/19 10:11 09/10/19 06:34 09/10/19 06:35 09/11/19 04:00 Carcinoembryonic Antigen 7.8 ng/mL (0.0-4.7) CA 19-9 Antigen 41 U/mL (0-35) Hepatitis B Surface Antigen Negative (NEGATIVE) White Blood Count 13.1 K/UL (4.8-10.8) 14.9 K/UL (4.8-10.8) Red Blood Count 2.45 M/UL (4.20-5.40) 4.05 M/UL (4.20-5.40) Hemoglobin 6.9 G/DL (12.0-16.0) 12.0 G/DL (12.0-16.0) Hematocrit 21.7 % (37.0-47.0) 34.0 % (37.0-47.0) Mean Corpuscular Volume 89 FL (80-99) 84 FL (80-99) Mean Corpuscular Hemoglobin 28.1 PG (27.0-31.0) 29.6 PG (27.0-31.0) Mean Corpuscular Hemoglobin Concent 31.6 G/DL (32.0-36.0) 35.2 G/DL (32.0-36.0) Red Cell Distribution Width 16.5 % (11.6-14.8) 15.1 % (11.6-14.8) Platelet Count 207 K/UL (150-450) 342 K/UL (150-450) Mean Platelet Volume 5.2 FL (6.5-10.1) 5.8 FL (6.5-10.1) Neutrophils (%) (Auto) % (45.0-75.0) 74.8 % (45.0-75.0) Lymphocytes (%) (Auto) % (20.0-45.0) 18.0 % (20.0-45.0) Monocytes (%) (Auto) % (1.0-10.0) 5.7 % (1.0-10.0) Eosinophils (%) (Auto) % (0.0-3.0) 1.1 % (0.0-3.0) Basophils (%) (Auto) % (0.0-2.0) 0.4 % (0.0-2.0) Differential Total Cells Counted 100 Neutrophils % (Manual) 76 % (45-75) Lymphocytes % (Manual) 16 % (20-45) Monocytes % (Manual) 5 % (1-10) Eosinophils % (Manual) 2 % (0-3) Basophils % (Manual) 1 % (0-2) Band Neutrophils 0 % (0-8) Platelet Estimate Adequate Platelet Morphology Normal Hypochromasia 4+ Anisocytosis 1+ Sodium Level 140 MMOL/L (136-145) 139 MMOL/L (136-145) Potassium Level 4.1 MMOL/L (3.5-5.1) 3.0 MMOL/L (3.5-5.1) Chloride Level 104 MMOL/L (98-107) 101 MMOL/L (98-107) Carbon Dioxide Level 26 MMOL/L (21-32) 30 MMOL/L (21-32) Anion Gap 11 mmol/L (5-15) 9 mmol/L (5-15) Blood Urea Nitrogen 40 mg/dL (7-18) 27 mg/dL (7-18) Creatinine 3.1 MG/DL (0.55-1.30) 2.3 MG/DL (0.55-1.30) Estimat Glomerular Filtration Rate 17.2 mL/min (>60) 24.2 mL/min (>60) Glucose Level 114 MG/DL (74-106) 140 MG/DL (74-106) Calcium Level 8.7 MG/DL (8.5-10.1) 8.3 MG/DL (8.5-10.1) Phosphorus Level 1.9 MG/DL (2.5-4.9) 2.2 MG/DL (2.5-4.9) Magnesium Level 1.7 MG/DL (1.8-2.4) Test 09/12/19 04:50 White Blood Count 12.0 K/UL (4.8-10.8) Red Blood Count 3.79 M/UL (4.20-5.40) Hemoglobin 11.2 G/DL (12.0-16.0) Hematocrit 32.4 % (37.0-47.0) Mean Corpuscular Volume 85 FL (80-99) Mean Corpuscular Hemoglobin 29.4 PG (27.0-31.0) Mean Corpuscular Hemoglobin Concent 34.5 G/DL (32.0-36.0) Red Cell Distribution Width 14.3 % (11.6-14.8) Platelet Count 333 K/UL (150-450) Mean Platelet Volume 6.1 FL (6.5-10.1) Neutrophils (%) (Auto) 65.1 % (45.0-75.0) Lymphocytes (%) (Auto) 24.7 % (20.0-45.0) Monocytes (%) (Auto) 7.4 % (1.0-10.0) Eosinophils (%) (Auto) 2.2 % (0.0-3.0) Basophils (%) (Auto) 0.5 % (0.0-2.0) Sodium Level 138 MMOL/L (136-145) Potassium Level 3.6 MMOL/L (3.5-5.1) Chloride Level 100 MMOL/L (98-107) Carbon Dioxide Level 30 MMOL/L (21-32) Anion Gap 9 mmol/L (5-15) Blood Urea Nitrogen 42 mg/dL (7-18) Creatinine 3.0 MG/DL (0.55-1.30) Estimat Glomerular Filtration Rate 17.8 mL/min (>60) Glucose Level 124 MG/DL (74-106) Calcium Level 8.8 MG/DL (8.5-10.1) Phosphorus Level 3.5 MG/DL (2.5-4.9) Magnesium Level 2.6 MG/DL (1.8-2.4) Random Vancomycin Level 10.2 ug/mL Height (Feet): 5 Height (Inches): 6.00 Weight (Pounds): 119 Objective Physical Exam: Vitals: reviewed General: NAD, groans to pain stimuli HEENT: nc, at Neck: supple Chest: clear breath sounds bilaterally Cardiovascular: RRR, no s3, s4 Abdomen: soft, nontender, nd ++ peg Extremities: no cce, normal range of motion Neuro: confused, nonverbal Skin: other - pressure sores to right side Bola Aldridge MD September 12, 2019 07:55
[2019-09-12 08:18] VITALS: BP 122/51
[2019-09-12] MEDS: Acetaminophen 650mg/20.3ml GT PRN (09:42)
[2019-09-12] MEDS: Carvedilol 6.25mg Tab GT SCH ×2 (09:42→20:33)
[2019-09-12] MEDS ORDERED: Vancomycin 1 GM in NS 275 ML IVPB SCH (10:00)
--- NOTE | 2019-09-12 10:07 | Pulmonology Progress Note ---
Subjective ROS Limited/Unobtainable: No Interval Events: None new Constitutional: Reports: fatigue; Denies: fever Gastrointestinal/Abdominal: Denies: nausea, vomiting, diarrhea Psychiatric: Reports: other - NA Skin: Denies: rash Musculoskeletal: Denies: pain Allergies: Coded Allergies: No Known Allergies (Unverified , 06/24/19) All Systems: reviewed and negative except above - All 12 point ROS negative Objective Last 24 Hour Vital Signs Date Time Temp Pulse Resp B/P (MAP) Pulse Ox O2 Delivery O2 Flow Rate FiO2 09/12/19 09:42 88 122/51 09/12/19 08:18 97.9 88 19 122/51 (74) 100 09/12/19 04:00 87 09/12/19 04:00 98.0 88 18 131/53 (79) 96 09/12/19 00:00 98.3 87 16 113/56 (75) 99 09/12/19 00:00 86 09/11/19 21:00 Room Air 09/11/19 20:51 88 119/61 09/11/19 20:00 95 09/11/19 20:00 98.1 95 16 123/58 (79) 98 09/11/19 16:00 96 09/11/19 16:00 98.9 110 22 100/68 (79) 98 09/11/19 12:00 102 09/11/19 12:00 99.6 110 22 114/77 (89) 98 Intake and Output 09/11/19 09/12/19 19:00 07:00 Output Total 400 ml Balance -400 ml Output Urine Total 400 ml # Bowel Movements 1 1 General Appearance: no acute distress HEENT: normocephalic Respiratory: chest wall non-tender, lungs clear Cardiovascular: normal peripheral pulses, normal rate Abdomen: normal bowel sounds Microbiology Date/Time Source Procedure Growth Status 09/10/19 06:35 Blood Blood Culture - Preliminary NO GROWTH AFTER 24 HOURS Resulted 09/10/19 06:25 Blood Blood Culture - Preliminary NO GROWTH AFTER 24 HOURS Resulted Laboratory Tests 09/12/19 04:50: White Blood Count 12.0H, Red Blood Count 3.79L, Hemoglobin 11.2L, Hematocrit 32.4L, Mean Corpuscular Volume 85, Mean Corpuscular Hemoglobin 29.4, Mean Corpuscular Hemoglobin Concent 34.5, Red Cell Distribution Width 14.3, Platelet Count 333, Mean Platelet Volume 6.1L, Neutrophils (%) (Auto) 65.1, Lymphocytes ( %) (Auto) 24.7, Monocytes (%) (Auto) 7.4, Eosinophils (%) (Auto) 2.2, Basophils (%) (Auto) 0.5, Sodium Level 138, Potassium Level 3.6, Chloride Level 100, Carbon Dioxide Level 30, Anion Gap 9, Blood Urea Nitrogen 42H, Creatinine 3.0H, Estimat Glomerular Filtration Rate 17.8, Glucose Level 124H, Calcium Level 8.8, Phosphorus Level 3.5, Magnesium Level 2.6H, Random Vancomycin Level 10.2 Current Medications Medications (Trade) Dose Ordered Sig/Joan Route PRN Reason Start Time Stop Time Status Last Admin Dose Admin Acetaminophen (Tylenol) 650 mg Q4H PRN GT Mild Pain (Pain Scale 1-3) 09/08/19 06:15 10/08/19 03:29 09/12/19 09:42 Atorvastatin Calcium (Lipitor) 10 mg BEDTIME GT 09/08/19 21:00 12/07/19 20:59 09/11/19 20:50 Carvedilol (Coreg) 6.25 mg EVERY 12 HOURS GT 09/08/19 09:00 10/08/19 08:59 09/12/19 09:42 Epoetin Dion (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)) 6,000 unit MON-MON-MON SUBQ 09/11/19 21:00 12/08/19 20:59 Gabapentin (Neurontin) 300 mg THREE TIMES A DAY GT 09/08/19 09:00 10/08/19 08:59 09/12/19 09:42 Iron Sucrose 100 mg/Sodium Chloride 60 ml @ 240 mls/hr BEDTIME IV 09/08/19 21:00 09/12/19 21:14 09/11/19 20:52 Loperamide HCl (Imodium) 2 mg Q4H PRN GT Diarrhea 09/08/19 06:15 10/08/19 03:44 Meropenem 500 mg/ Sodium Chloride 55 ml @ 110 mls/hr Q24H IVPB 09/09/19 16:00 09/14/19 15:59 09/11/19 17:46 Vancomycin HCl (Vanco rx to dose) 1 ea DAILY PRN MISC Per rx protocol 09/09/19 13:00 10/09/19 12:59 Vancomycin HCl 1 gm/Sodium Chloride 275 ml @ 183.708 mls/hr ONCE IVPB 09/12/19 10:00 09/12/19 12:00 09/12/19 09:43 Assessment/Plan Assessment/Plan IMPRESSION: 1. UTI. 2. Anemia. 3. ESRD, on dialysis. 4. Initial COVID-19 negative. DISCUSSION: Continue current medications and care. Initial COVID-19 pcr negative Blood transfusion. Empiric antibiotics. Hemodialysis. Saturating well on RA I will follow carefully. Ross Nina Omar Syed MD September 12, 2019 10:07
--- NOTE | 2019-09-12 10:09 | Nephrology Progress Note ---
Assessment/Plan Plan #ESRD on HD TTHS- #anemia of CKD #UTI #dysphagia s/p PEG #multiple pressure wounds #HTN - plan for HD today - hemoglobin stable - STRICT I&Os - daily weights - replete lytes - prbc transfusion for hemoglobin < 7 - increase epo to 6k TIW - IV iron - monitor CBC - on vancomycin and meropenem - continue coreg 6.25mg BID - replete phos - monitor mag, phos and BMP daily Time spent 45 min > 50% on care coordination and counseling Subjective ROS Limited/Unobtainable: Yes Subjective BUN/cr uptrending plan for HD today hemoglobin 11.2 UOP 400 on IV iron evaluated by GI Objective Objective Last 24 Hour Vital Signs Date Time Temp Pulse Resp B/P (MAP) Pulse Ox O2 Delivery O2 Flow Rate FiO2 09/12/19 09:42 88 122/51 09/12/19 08:18 97.9 88 19 122/51 (74) 100 09/12/19 04:00 87 09/12/19 04:00 98.0 88 18 131/53 (79) 96 09/12/19 00:00 98.3 87 16 113/56 (75) 99 09/12/19 00:00 86 09/11/19 21:00 Room Air 09/11/19 20:51 88 119/61 09/11/19 20:00 95 09/11/19 20:00 98.1 95 16 123/58 (79) 98 09/11/19 16:00 96 09/11/19 16:00 98.9 110 22 100/68 (79) 98 09/11/19 12:00 102 09/11/19 12:00 99.6 110 22 114/77 (89) 98 Intake and Output 09/11/19 09/12/19 19:00 07:00 Output Total 400 ml Balance -400 ml Output Urine Total 400 ml # Bowel Movements 1 1 Laboratory Tests 09/12/19 04:50: White Blood Count 12.0H, Red Blood Count 3.79L, Hemoglobin 11.2L, Hematocrit 32.4L, Mean Corpuscular Volume 85, Mean Corpuscular Hemoglobin 29.4, Mean Corpuscular Hemoglobin Concent 34.5, Red Cell Distribution Width 14.3, Platelet Count 333, Mean Platelet Volume 6.1L, Neutrophils (%) (Auto) 65.1, Lymphocytes ( %) (Auto) 24.7, Monocytes (%) (Auto) 7.4, Eosinophils (%) (Auto) 2.2, Basophils (%) (Auto) 0.5, Sodium Level 138, Potassium Level 3.6, Chloride Level 100, Carbon Dioxide Level 30, Anion Gap 9, Blood Urea Nitrogen 42H, Creatinine 3.0H, Estimat Glomerular Filtration Rate 17.8, Glucose Level 124H, Calcium Level 8.8, Phosphorus Level 3.5, Magnesium Level 2.6H, Random Vancomycin Level 10.2 Height (Feet): 5 Height (Inches): 6.00 Weight (Pounds): 119 Objective General Appearance: confused, cachetic, thin Lines, tubes and drains: peripheral HEENT: normocephalic, atraumatic Respiratory/Chest: chest wall non-tender, no respiratory distress Cardiovascular/Chest: normal peripheral pulses Abdomen: feeding tube Extremities: non-pitting, no cyanosis, other - unable to move extremities. Skin Exam: other - pressure ulcers Rory Oconnor M.D. September 12, 2019 10:09
[2019-09-12 12:00] VITALS: BP 123/61
--- NOTE | 2019-09-12 14:10 | General Progress Note ---
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 #ESRD on HD #Acute on chronic anemia #Anemia of ESRD -Hb continues to improve -Continue to monitor -cont. to monitor for signs/symptoms of bleeding -Transfuse for hgb <7.0 during HD -EPOGEN per nephro -Renal and Heme following #ESBL Klebsiella UTI #Indwelling Sanchez catheter #Gram positive bacteremia -vancomycin and meropenem to complete 10 day treatment course per ID recs -ID following -second covid19 PCR pending for discharge back to SNF #HTN #elevated troponin #Elevated BNP -trops stable at baseline -likely due to demand ischemia, ESRD, sepsis -ASA, statin -Resume home Lasix -hydralazine PRN for SBP >160 -Carvedilol 6.25 mg BID -Cardio following #Dysphagia -s/p PEG -tolerating TF -Dietary and GI following, recs appreciated #Advanced Dementia -stable -neuro following, appreciate recs #Pressure wounds -continue LWC Spent 35 minutes on the patient's case and 20 on counseling and care coordination. Case discussed with RN at the bedside, nephrology. Case discussed with Consultants on the phone. Subjective Date patient seen: September 12, 2019 Time patient seen: 14:02 ROS Limited/Unobtainable: Yes Allergies: Coded Allergies: No Known Allergies (Unverified , 06/24/19) Subjective Follow up for sepsis, ESBL klebsiella UTI, gram positive bacteremia, acute on chronic anemia, ESRD. No acute events overnight, undergoing HD today. Needs second COVID negative to go back to SNF Objective Last 24 Hour Vital Signs Date Time Temp Pulse Resp B/P (MAP) Pulse Ox O2 Delivery O2 Flow Rate FiO2 09/12/19 12:00 98.1 78 18 123/61 (81) 100 09/12/19 12:00 98 09/12/19 09:42 88 122/51 09/12/19 08:18 97.9 88 19 122/51 (74) 100 09/12/19 08:00 88 09/12/19 04:00 87 09/12/19 04:00 98.0 88 18 131/53 (79) 96 09/12/19 00:00 98.3 87 16 113/56 (75) 99 09/12/19 00:00 86 09/11/19 21:00 Room Air 09/11/19 20:51 88 119/61 09/11/19 20:00 95 09/11/19 20:00 98.1 95 16 123/58 (79) 98 09/11/19 16:00 96 09/11/19 16:00 98.9 110 22 100/68 (79) 98 Intake and Output 09/11/19 09/12/19 19:00 07:00 Output Total 400 ml Balance -400 ml Output Urine Total 400 ml # Bowel Movements 1 1 Laboratory Tests 09/12/19 04:50: White Blood Count 12.0H, Red Blood Count 3.79L, Hemoglobin 11.2L, Hematocrit 32.4L, Mean Corpuscular Volume 85, Mean Corpuscular Hemoglobin 29.4, Mean Corpuscular Hemoglobin Concent 34.5, Red Cell Distribution Width 14.3, Platelet Count 333, Mean Platelet Volume 6.1L, Neutrophils (%) (Auto) 65.1, Lymphocytes ( %) (Auto) 24.7, Monocytes (%) (Auto) 7.4, Eosinophils (%) (Auto) 2.2, Basophils (%) (Auto) 0.5, Sodium Level 138, Potassium Level 3.6, Chloride Level 100, Carbon Dioxide Level 30, Anion Gap 9, Blood Urea Nitrogen 42H, Creatinine 3.0H, Estimat Glomerular Filtration Rate 17.8, Glucose Level 124H, Calcium Level 8.8, Phosphorus Level 3.5, Magnesium Level 2.6H, Random Vancomycin Level 10.2 Height (Feet): 5 Height (Inches): 6.00 Weight (Pounds): 119 General Appearance: alert, confused Cardiovascular: normal rate, regular rhythm Respiratory/Chest: lungs clear, normal breath sounds Abdomen: non tender, soft Oumar Foy MD September 12, 2019 14:10
[2019-09-12] MEDS: Meropenem 500mg/NS 55ml IVPB SCH ×2 (15:49)
[2019-09-12 16:00] VITALS: BP 120/57
--- NOTE | 2019-09-12 16:01 | Surgery Progress Note ---
Surgery Progress Note Subjective Symptoms: improved, tolerating diet, voiding well, passing flatus Objective Last 24 Hour Vital Signs Date Time Temp Pulse Resp B/P (MAP) Pulse Ox O2 Delivery O2 Flow Rate FiO2 09/12/19 12:00 98.1 78 18 123/61 (81) 100 09/12/19 12:00 98 09/12/19 09:42 88 122/51 09/12/19 09:00 Room Air 09/12/19 08:18 97.9 88 19 122/51 (74) 100 09/12/19 08:00 88 09/12/19 04:00 87 09/12/19 04:00 98.0 88 18 131/53 (79) 96 09/12/19 00:00 98.3 87 16 113/56 (75) 99 09/12/19 00:00 86 09/11/19 21:00 Room Air 09/11/19 20:51 88 119/61 09/11/19 20:00 95 09/11/19 20:00 98.1 95 16 123/58 (79) 98 I&O Intake and Output 09/11/19 09/12/19 19:00 07:00 Output Total 400 ml Balance -400 ml Output Urine Total 400 ml # Bowel Movements 1 1 Dressing: saturated Wound: clean Cardiovascular: RSR Respiratory: clear, decreased breath sounds Abdomen: soft, non-tender, present bowel sounds Extremities: no tenderness, no cyanosis Laboratory Tests Test 09/12/19 04:50 White Blood Count 12.0 K/UL (4.8-10.8) H Red Blood Count 3.79 M/UL (4.20-5.40) L Hemoglobin 11.2 G/DL (12.0-16.0) L Hematocrit 32.4 % (37.0-47.0) L Mean Corpuscular Volume 85 FL (80-99) Mean Corpuscular Hemoglobin 29.4 PG (27.0-31.0) Mean Corpuscular Hemoglobin Concent 34.5 G/DL (32.0-36.0) Red Cell Distribution Width 14.3 % (11.6-14.8) Platelet Count 333 K/UL (150-450) Mean Platelet Volume 6.1 FL (6.5-10.1) L Neutrophils (%) (Auto) 65.1 % (45.0-75.0) Lymphocytes (%) (Auto) 24.7 % (20.0-45.0) Monocytes (%) (Auto) 7.4 % (1.0-10.0) Eosinophils (%) (Auto) 2.2 % (0.0-3.0) Basophils (%) (Auto) 0.5 % (0.0-2.0) Sodium Level 138 MMOL/L (136-145) Potassium Level 3.6 MMOL/L (3.5-5.1) Chloride Level 100 MMOL/L (98-107) Carbon Dioxide Level 30 MMOL/L (21-32) Anion Gap 9 mmol/L (5-15) Blood Urea Nitrogen 42 mg/dL (7-18) H Creatinine 3.0 MG/DL (0.55-1.30) H Estimat Glomerular Filtration Rate 17.8 mL/min (>60) Glucose Level 124 MG/DL (74-106) H Calcium Level 8.8 MG/DL (8.5-10.1) Phosphorus Level 3.5 MG/DL (2.5-4.9) Magnesium Level 2.6 MG/DL (1.8-2.4) H Random Vancomycin Level 10.2 ug/mL Plan Problems: (1) COVID-19 ruled out Assessment & Plan: FINDINGS: Lungs: Left basilar opacity with volume loss, likely atelectasis however a focus of infection could have a similar appearance. Pleural space: No pleural effusion. No pneumothorax. Heart: Unremarkable. No cardiomegaly. Bones/joints: No fracture. Vasculature: Atherosclerotic calcifications. Tubes, lines and devices: Right IJ large bore dialysis catheter terminates within the right atrium. IMPRESSION: Left basilar opacity with volume loss, likely atelectasis however a focus of infection could have a similar appearance. leukocytosis anemia pending test (2) Protein calorie malnutrition Assessment & Plan: DAILY ESTIMATED NEEDS: Needs based on Wounds, HD 57kg 30-35 kcals/kg [id number] total kcals 1.25-1.8 g protein/kg 71-103 g total protein Fluids per MD NUTRITION DIAGNOSIS: * Increased kcal and prot needs r/t wound healing and renal failure as evidenced by w/ multiple pressure injuries, including full thickness and unstageable wounds, refer to MD reports, pt w/ ESRD on HD, GT dep. CURRENT TF:Nepro @ 40ml/hr x 20 hrs ENTERAL NUTRITION RECOMMENDATIONS: Nepro @ 45ml/hr x 22 hrs to provide 990ml, 1782kcal, 80g prot, 720ml free water - Rec to INCREASE RATE AND RUNNING TIME ABOVE to better meet est kcal and pro needs - HOB over 30 degrees/ water flush per MD ADDITIONAL RECOMMENDATIONS: 1) Calibrated bedscale wt 2) Wound Care: add Nephrovite x 1 add Saw 1ptk BID via GT 3) Monitor BGs, consider NISS: BGs consistently mildly elevated 4) Monitor lytes and renal fxn (3) Pressure ulcer (4) Decubitus skin ulcer Assessment & Plan: Pt presented on admission with multiple Pressure injuries. Full thickness Pressure Injury R shoulder(L)2.8cm x (W)2cm. Base of wound is 75 % slough, 25% beefy red granulation. Slough removed with gentle friction. Post removal of slough,small amt slough at base of wound. Small amt sanguineous exudate. Edges flat and adherent to base of wound. Periwound without erythema, induration or fluctuance. Darker skin tone without induration ,fluctuance or tenderness at sacrococcygeal area. Non-blanching erythema and scattered areas of hyperpigmentation noted to R and L gluteal cheeks. Pt denied tenderness when affected areas palpated. Full thickness Pressure injury R hip (L)5.5cm x (W)10.2cm x (D)2.6cm. Base of wound is 75% pink granulation,25% Loose fibrinous slough. Bone is palpable.Edges flat ,pink and adherent to base of wound. Small amt. non-odorous serous exudate. Hypopigmentation noted to perineum and labia majora. Unstageable Pressure Injury R heel(L)3.5cm x (W)3.3cm . Base of wound is 100% necrotic with semidetached with surrounding yellow slough. Edges area dry, black. Periwound is non-blanchable and fluctuant. Maroon discoloration with fluctuance noted to distal/lateral R foot (L)2.8cm x ( W)2.5cm. Resolving pressure injury R Hallux(L)3.5cm x (W)3.3cm.[place] epithelial at base of wound with surrounding dry brown borders. L heel is boggy with non-blanching erythema.Historical scarring from previous wounds noted. Unstageable Pressure Injury L hallux(L)3.5cm x (W)2.8cm. Base of wound has 90% loose necrotic cap,surrounding slough. Loose necrotic cap easily removed with saline moistened gauze. At base of wound is 100% yellow slough, marginal erythema with small area of necrosis noted along borders. Small amt seropurulent non-odorous exudate noted. Stable dry necrosis at L st metatarsal head. Tx.Plan: Cleanse wound R shoulder with Saline. Apply Therahoney. Apply Cavilon Skin Barrier periwound. Cover with Optifoam drsg. Change every 3 days and prn. Cleanse R hip with Saline. Loosely pack with Therahoney impregnated Kerlix. Apply Moisture Barrier Paste periwound. Cover with Optifoam drsg. Change Daily and prn. Apply Moisture Barrier Paste to Sacrum. Cover with Optifoam drsg. Change every 3 days and prn. Apply Betadine to R heel, R hallux,Distal/lateral R foot. Cover with Abd pad and wrap with Kerlix every 3 days and prn. Apply Betadine to L hallux,L 1st metatarsal head,L heel. Cover with Abd pads and wrap with Kerlix every 3 days and prn. Reposition Back to L Side at least every 2hours or as tolerated. Place Pillow between knees. Off-load heels with pillow. APM/TIEN Mattress overlay. (5) Suspected COVID-19 virus infection (6) Anemia Assessment & Plan: transfused prbc h/h stable trend labs Anshul Nava September 12, 2019 16:01
--- NOTE | 2019-09-12 16:18 | Cardiac Electrophysiology PN ---
Assessment/Plan Assessment/Plan 1. BNP of more than 6000. Had HD . Echo EF 65%. Ruled out for NC 2. Hypertension. Continue Coreg 6.25 mg b.i.d. and HD 3. Elevated white count and UTI. On Ceftriaxone per Dr. Rosado. 4. Dysphagia, status post PEG placement. 5. Dementia. 6. ESRD on HD per Dr. Bowen. 7. Severe anemia Hb 6.9, S/P 2 units of PRBC DW RN Subjective Subjective Stool OB is negative. Nonverbal. First Covid on 09/06 was negative. HD and then DC to SNIF ending Objective Last 24 Hour Vital Signs Date Time Temp Pulse Resp B/P (MAP) Pulse Ox O2 Delivery O2 Flow Rate FiO2 09/12/19 12:00 98.1 78 18 123/61 (81) 100 09/12/19 12:00 98 09/12/19 09:42 88 122/51 09/12/19 09:00 Room Air 09/12/19 08:18 97.9 88 19 122/51 (74) 100 09/12/19 08:00 88 09/12/19 04:00 87 09/12/19 04:00 98.0 88 18 131/53 (79) 96 09/12/19 00:00 98.3 87 16 113/56 (75) 99 09/12/19 00:00 86 09/11/19 21:00 Room Air 09/11/19 20:51 88 119/61 09/11/19 20:00 95 09/11/19 20:00 98.1 95 16 123/58 (79) 98 Intake and Output 09/11/19 09/12/19 19:00 07:00 Output Total 400 ml Balance -400 ml Output Urine Total 400 ml # Bowel Movements 1 1 Laboratory Tests Test 09/12/19 04:50 White Blood Count 12.0 K/UL (4.8-10.8) H Red Blood Count 3.79 M/UL (4.20-5.40) L Hemoglobin 11.2 G/DL (12.0-16.0) L Hematocrit 32.4 % (37.0-47.0) L Mean Corpuscular Volume 85 FL (80-99) Mean Corpuscular Hemoglobin 29.4 PG (27.0-31.0) Mean Corpuscular Hemoglobin Concent 34.5 G/DL (32.0-36.0) Red Cell Distribution Width 14.3 % (11.6-14.8) Platelet Count 333 K/UL (150-450) Mean Platelet Volume 6.1 FL (6.5-10.1) L Neutrophils (%) (Auto) 65.1 % (45.0-75.0) Lymphocytes (%) (Auto) 24.7 % (20.0-45.0) Monocytes (%) (Auto) 7.4 % (1.0-10.0) Eosinophils (%) (Auto) 2.2 % (0.0-3.0) Basophils (%) (Auto) 0.5 % (0.0-2.0) Sodium Level 138 MMOL/L (136-145) Potassium Level 3.6 MMOL/L (3.5-5.1) Chloride Level 100 MMOL/L (98-107) Carbon Dioxide Level 30 MMOL/L (21-32) Anion Gap 9 mmol/L (5-15) Blood Urea Nitrogen 42 mg/dL (7-18) H Creatinine 3.0 MG/DL (0.55-1.30) H Estimat Glomerular Filtration Rate 17.8 mL/min (>60) Glucose Level 124 MG/DL (74-106) H Calcium Level 8.8 MG/DL (8.5-10.1) Phosphorus Level 3.5 MG/DL (2.5-4.9) Magnesium Level 2.6 MG/DL (1.8-2.4) H Random Vancomycin Level 10.2 ug/mL Microbiology Date/Time Source Procedure Growth Status 09/10/19 06:35 Blood Blood Culture - Preliminary NO GROWTH AFTER 24 HOURS Resulted 09/10/19 06:25 Blood Blood Culture - Preliminary NO GROWTH AFTER 24 HOURS Resulted Objective HEAD AND NECK: Shows no JVD. LUNGS: Coarse rhonchi. CARDIOVASCULAR: Shows regular S1 and S2 with no gallop. ABDOMEN: Status post G-tube. EXTREMITIES: No pitting edema. Cristopher Osman MD September 12, 2019 16:18
[2019-09-12 20:00] VITALS: BP 143/74
[2019-09-12] MEDS: Iron Sucrose 100 MG in NS 55 ML IV SCH (20:34)
[2019-09-13] VITALS: BP 143/63
[2019-09-13 04:00] VITALS: BP 148/71
[2019-09-13 08:20] VITALS: BP 141/56
--- NOTE | 2019-09-13 08:30 | General Progress Note ---
Assessment/Plan Assessment/Plan: Assessment/Plan Status: stable Assessment/Plan: 1. End-stage renal disease, on hemodialysis. 2. Anemia iron def 3. Dysphagia, status post G-tube placement. 4. Pneumonia. 5. Pancreatic cyst. 6. Hypertension. 7. elevated CEA of 10 8. CAD 9. UTI chart from prior admissions reviewed iv iron repeat stool ob>> neg transfuse to keep HGB above 7 GTF 40 cc HD per nephrology will fu Subjective ROS Limited/Unobtainable: No Allergies: Coded Allergies: No Known Allergies (Unverified , 06/24/19) Objective Last 24 Hour Vital Signs Date Time Temp Pulse Resp B/P (MAP) Pulse Ox O2 Delivery O2 Flow Rate FiO2 09/13/19 08:20 96.4 102 18 141/56 (84) 97 09/13/19 04:00 98.8 99 16 148/71 (96) 97 09/13/19 04:00 105 09/13/19 00:00 104 09/13/19 00:00 99.3 101 16 143/63 (89) 96 09/12/19 21:00 Room Air 09/12/19 20:33 95 135/61 09/12/19 20:00 94 09/12/19 20:00 97.8 96 16 143/74 (97) 98 09/12/19 16:00 106 09/12/19 16:00 96.7 80 19 120/57 (78) 100 09/12/19 12:00 98.1 78 18 123/61 (81) 100 09/12/19 12:00 98 09/12/19 09:42 88 122/51 09/12/19 09:00 Room Air Intake and Output 09/12/19 09/13/19 19:00 07:00 Intake Total 40 ml 540 ml Output Total 1200 ml 2000 ml Balance -1160 ml -1460 ml Free Water 100 ml Tube Feeding 40 ml 440 ml Output Urine Total 1200 ml Hemodialysis UF 2000 ml # Voids 3 Laboratory Tests 09/13/19 03:55: Random Vancomycin Level 8.5 Height (Feet): 5 Height (Inches): 6.00 Weight (Pounds): 119 General Appearance: no apparent distress EENT: normal ENT inspection Neck: supple Cardiovascular: normal rate Respiratory/Chest: decreased breath sounds Abdomen: normal bowel sounds, non tender, soft Extremities: non-tender Vosoghi,Jun MD September 13, 2019 08:30
--- NOTE | 2019-09-13 08:54 | Hematology/Onc Progress Note ---
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 Otherwise unremarkable pancreas --> as per gi, may need further eval with endsocopy --> with pancreatitis at this time, may be obscuring picture --> reimage in short order, 6 months --> ca19.9 60 but may be elevated due to pancreatitis --> cea of 10--> --> monitor lfts daily # Anemia of chronic disease due to underlying chronic medical issues, multifactorial v Gi bleed --> Anemia workup has been reviewed, ferritin 1300 -->1800 --> No evidence of hemolysis is noted, peripheral smear has been reviewed. --> Hgb goal >7. Transfuse prn. --> Epogen has been started --> IV IRON completed --> Medications have been reviewed --> hgb 6-->7.1-->12-->11.2 --> 09/07 stool ob negative --> rbc: 2 inits 09/10/2019, --> bone marrow biopsy is not indicated given the other more likely causes # Leukocytosis/elevated white blood cell count, unspecified likely related to underlying stress reaction, smoking v more likely infection in this case, uti now --> have reviewed peripheral smear and bandemia/neutrophilia noted --> continue antibiotics if they have been started by ID team --> monitor for resolution --> as per id care, on broad spectrum abx --> wbc 14-->12-->9-->14.9-->12 --> per id recs, on: cftx-->bethany/vanc # Thrombocytopenia - potential causes multifactorial, evaluate liver and viral etiologies to begin, in this case due to sepsisand pancreatitis --> Hep panel and HIV are both negative --> US abd to evaluate for cirrhosis and hsm --> pleural effusions noted, hsm is neg --> Peripheral smear ordered to evaluate for blasts /schistocytes --> abx and other meds have been reviewed --> ok for ppx if plt >50k w/ either heparin or lovenox # 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 Greatly appreciate consultation. Subjective Allergies: Coded Allergies: No Known Allergies (Unverified , 06/24/19) Subjective 09/09 on tele, labs pending, stool ob negative, iv abx 09/10 s/p 2 units rbc, hgb improved to 12, on iv iron, hep b neg. 09/11 hd for today, h/h stable, no acute distress 09/12 nonverbal, no overnight events, bethany/vanc Objective Objective Current Medications Medications (Trade) Dose Ordered Sig/Joan Route PRN Reason Start Time Stop Time Status Last Admin Dose Admin Acetaminophen (Tylenol) 650 mg Q4H PRN GT Mild Pain (Pain Scale 1-3) 09/08/19 06:15 10/08/19 03:29 09/12/19 09:42 Atorvastatin Calcium (Lipitor) 10 mg BEDTIME GT 09/08/19 21:00 12/07/19 20:59 09/12/19 20:33 Carvedilol (Coreg) 6.25 mg EVERY 12 HOURS GT 09/08/19 09:00 10/08/19 08:59 09/12/19 20:33 Epoetin Dion (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)) 6,000 unit MON-MON-MON SUBQ 09/11/19 21:00 12/08/19 20:59 Gabapentin (Neurontin) 300 mg THREE TIMES A DAY GT 09/08/19 09:00 10/08/19 08:59 09/12/19 13:00 Loperamide HCl (Imodium) 2 mg Q4H PRN GT Diarrhea 09/08/19 06:15 10/08/19 03:44 Meropenem 500 mg/ Sodium Chloride 55 ml @ 110 mls/hr Q24H IVPB 09/09/19 16:00 09/14/19 15:59 09/12/19 15:49 Vancomycin HCl (Vanco rx to dose) 1 ea DAILY PRN MISC Per rx protocol 09/09/19 13:00 10/09/19 12:59 Last 24 Hour Vital Signs Date Time Temp Pulse Resp B/P (MAP) Pulse Ox O2 Delivery O2 Flow Rate FiO2 09/13/19 08:20 96.4 102 18 141/56 (84) 97 09/13/19 04:00 98.8 99 16 148/71 (96) 97 09/13/19 04:00 105 09/13/19 00:00 104 09/13/19 00:00 99.3 101 16 143/63 (89) 96 09/12/19 21:00 Room Air 09/12/19 20:33 95 135/61 09/12/19 20:00 94 09/12/19 20:00 97.8 96 16 143/74 (97) 98 09/12/19 16:00 106 09/12/19 16:00 96.7 80 19 120/57 (78) 100 09/12/19 12:00 98.1 78 18 123/61 (81) 100 09/12/19 12:00 98 09/12/19 09:42 88 122/51 09/12/19 09:00 Room Air 09/12/19 08:18 97.9 88 19 122/51 (74) 100 09/12/19 08:00 88 09/12/19 04:00 87 09/12/19 04:00 98.0 88 18 131/53 (79) 96 09/12/19 00:00 98.3 87 16 113/56 (75) 99 09/12/19 00:00 86 09/11/19 21:00 Room Air 09/11/19 20:51 88 119/61 09/11/19 20:00 95 09/11/19 20:00 98.1 95 16 123/58 (79) 98 09/11/19 16:00 96 09/11/19 16:00 98.9 110 22 100/68 (79) 98 09/11/19 12:00 102 09/11/19 12:00 99.6 110 22 114/77 (89) 98 09/11/19 09:00 Room Air 09/11/19 09:00 100 102/64 Intake and Output 09/12/19 09/13/19 19:00 07:00 Intake Total 40 ml 540 ml Output Total 1200 ml 2000 ml Balance -1160 ml -1460 ml Free Water 100 ml Tube Feeding 40 ml 440 ml Output Urine Total 1200 ml Hemodialysis UF 2000 ml # Voids 3 Labs Test 09/11/19 04:00 09/12/19 04:50 09/13/19 03:55 White Blood Count 14.9 K/UL (4.8-10.8) 12.0 K/UL (4.8-10.8) Red Blood Count 4.05 M/UL (4.20-5.40) 3.79 M/UL (4.20-5.40) Hemoglobin 12.0 G/DL (12.0-16.0) 11.2 G/DL (12.0-16.0) Hematocrit 34.0 % (37.0-47.0) 32.4 % (37.0-47.0) Mean Corpuscular Volume 84 FL (80-99) 85 FL (80-99) Mean Corpuscular Hemoglobin 29.6 PG (27.0-31.0) 29.4 PG (27.0-31.0) Mean Corpuscular Hemoglobin Concent 35.2 G/DL (32.0-36.0) 34.5 G/DL (32.0-36.0) Red Cell Distribution Width 15.1 % (11.6-14.8) 14.3 % (11.6-14.8) Platelet Count 342 K/UL (150-450) 333 K/UL (150-450) Mean Platelet Volume 5.8 FL (6.5-10.1) 6.1 FL (6.5-10.1) Neutrophils (%) (Auto) 74.8 % (45.0-75.0) 65.1 % (45.0-75.0) Lymphocytes (%) (Auto) 18.0 % (20.0-45.0) 24.7 % (20.0-45.0) Monocytes (%) (Auto) 5.7 % (1.0-10.0) 7.4 % (1.0-10.0) Eosinophils (%) (Auto) 1.1 % (0.0-3.0) 2.2 % (0.0-3.0) Basophils (%) (Auto) 0.4 % (0.0-2.0) 0.5 % (0.0-2.0) Sodium Level 139 MMOL/L (136-145) 138 MMOL/L (136-145) Potassium Level 3.0 MMOL/L (3.5-5.1) 3.6 MMOL/L (3.5-5.1) Chloride Level 101 MMOL/L (98-107) 100 MMOL/L (98-107) Carbon Dioxide Level 30 MMOL/L (21-32) 30 MMOL/L (21-32) Anion Gap 9 mmol/L (5-15) 9 mmol/L (5-15) Blood Urea Nitrogen 27 mg/dL (7-18) 42 mg/dL (7-18) Creatinine 2.3 MG/DL (0.55-1.30) 3.0 MG/DL (0.55-1.30) Estimat Glomerular Filtration Rate 24.2 mL/min (>60) 17.8 mL/min (>60) Glucose Level 140 MG/DL (74-106) 124 MG/DL (74-106) Calcium Level 8.3 MG/DL (8.5-10.1) 8.8 MG/DL (8.5-10.1) Phosphorus Level 2.2 MG/DL (2.5-4.9) 3.5 MG/DL (2.5-4.9) Magnesium Level 1.7 MG/DL (1.8-2.4) 2.6 MG/DL (1.8-2.4) Random Vancomycin Level 10.2 ug/mL 8.5 ug/mL Height (Feet): 5 Height (Inches): 6.00 Weight (Pounds): 119 Objective Physical Exam: Vitals: reviewed General: NAD, groans to pain stimuli HEENT: nc, at Neck: supple Chest: clear breath sounds bilaterally Cardiovascular: RRR, no s3, s4 Abdomen: soft, nontender, nd ++ peg Extremities: no cce, normal range of motion Neuro: confused, nonverbal Skin: other - pressure sores to right side Bola Aldridge MD September 13, 2019 08:54
[2019-09-13] MEDS: Acetaminophen 650mg/20.3ml GT PRN (09:04)
[2019-09-13] MEDS: Carvedilol 6.25mg Tab GT SCH ×2 (09:05→20:32)
--- NOTE | 2019-09-13 09:17 | Cardiac Electrophysiology PN ---
Assessment/Plan Assessment/Plan 1. BNP of more than 6000. Had HD . Echo EF 65%. Ruled out for MS On HD 2. Hypertension. Continue Coreg 6.25 mg b.i.d. and HD 3. Elevated white count and UTI. On Abx per Dr. Rosado. 4. Dysphagia, status post PEG placement. 5. Dementia. 6. ESRD on HD per Dr. Bowen. 7. Severe anemia Hb 6.9, S/P 2 units of PRBC DW RN Subjective Subjective Nonverbal. First Covid on 09/06 was negative. Had HD yesterday. Awaiting 2nd Covid to DC to SNIF Objective Last 24 Hour Vital Signs Date Time Temp Pulse Resp B/P (MAP) Pulse Ox O2 Delivery O2 Flow Rate FiO2 09/13/19 09:05 102 141/56 09/13/19 08:20 96.4 102 18 141/56 (84) 97 09/13/19 04:00 98.8 99 16 148/71 (96) 97 09/13/19 04:00 105 09/13/19 00:00 104 09/13/19 00:00 99.3 101 16 143/63 (89) 96 09/12/19 21:00 Room Air 09/12/19 20:33 95 135/61 09/12/19 20:00 94 09/12/19 20:00 97.8 96 16 143/74 (97) 98 09/12/19 16:00 106 09/12/19 16:00 96.7 80 19 120/57 (78) 100 09/12/19 12:00 98.1 78 18 123/61 (81) 100 09/12/19 12:00 98 09/12/19 09:42 88 122/51 Intake and Output 09/12/19 09/13/19 19:00 07:00 Intake Total 40 ml 540 ml Output Total 1200 ml 2000 ml Balance -1160 ml -1460 ml Free Water 100 ml Tube Feeding 40 ml 440 ml Output Urine Total 1200 ml Hemodialysis UF 2000 ml # Voids 3 Laboratory Tests Test 09/13/19 03:55 Random Vancomycin Level 8.5 ug/mL Objective HEAD AND NECK: Shows no JVD. LUNGS: Coarse rhonchi. CARDIOVASCULAR: Shows regular S1 and S2 with no gallop. ABDOMEN: Status post G-tube. EXTREMITIES: No pitting edema. Cristopher Osman MD September 13, 2019 09:17
[2019-09-13] MEDS ORDERED: Vancomycin 1gm/D5W 275ml IVPB ONE ×2 (10:30)
--- NOTE | 2019-09-13 10:36 | Nephrology Progress Note ---
Assessment/Plan Plan #ESRD on HD TTHS- #anemia of CKD #UTI #dysphagia s/p PEG #multiple pressure wounds #HTN - follow labs today - hemoglobin stable - STRICT I&Os - daily weights - replete lytes - prbc transfusion for hemoglobin < 7 - increase epo to 6k TIW - IV iron - monitor CBC - on vancomycin and meropenem - continue coreg 6.25mg BID - replete phos - monitor mag, phos and BMP daily Time spent 45 min > 50% on care coordination and counseling Subjective ROS Limited/Unobtainable: Yes Subjective Labs pending today on IV iron evaluated by GI Objective Objective Last 24 Hour Vital Signs Date Time Temp Pulse Resp B/P (MAP) Pulse Ox O2 Delivery O2 Flow Rate FiO2 09/13/19 09:05 102 141/56 09/13/19 08:20 96.4 102 18 141/56 (84) 97 09/13/19 04:00 98.8 99 16 148/71 (96) 97 09/13/19 04:00 105 09/13/19 00:00 104 09/13/19 00:00 99.3 101 16 143/63 (89) 96 09/12/19 21:00 Room Air 09/12/19 20:33 95 135/61 09/12/19 20:00 94 09/12/19 20:00 97.8 96 16 143/74 (97) 98 09/12/19 16:00 106 09/12/19 16:00 96.7 80 19 120/57 (78) 100 09/12/19 12:00 98.1 78 18 123/61 (81) 100 09/12/19 12:00 98 Intake and Output 09/12/19 09/13/19 19:00 07:00 Intake Total 40 ml 540 ml Output Total 1200 ml 2000 ml Balance -1160 ml -1460 ml Free Water 100 ml Tube Feeding 40 ml 440 ml Output Urine Total 1200 ml Hemodialysis UF 2000 ml # Voids 3 Laboratory Tests 09/13/19 03:55: Random Vancomycin Level 8.5 Height (Feet): 5 Height (Inches): 6.00 Weight (Pounds): 119 Objective General Appearance: confused, cachetic, thin Lines, tubes and drains: peripheral HEENT: normocephalic, atraumatic Respiratory/Chest: chest wall non-tender, no respiratory distress Cardiovascular/Chest: normal peripheral pulses Abdomen: feeding tube Extremities: non-pitting, no cyanosis, other - unable to move extremities. Skin Exam: other - pressure ulcers Rory Oconnor M.D. September 13, 2019 10:36
--- NOTE | 2019-09-13 11:32 | Pulmonology Progress Note ---
Subjective ROS Limited/Unobtainable: Yes Interval Events: None new Constitutional: Reports: fatigue; Denies: fever Gastrointestinal/Abdominal: Denies: nausea, vomiting, diarrhea Psychiatric: Reports: other - NA Skin: Denies: rash Musculoskeletal: Denies: pain Allergies: Coded Allergies: No Known Allergies (Unverified , 06/24/19) All Systems: reviewed and negative except above - All 12 point ROS negative Objective Last 24 Hour Vital Signs Date Time Temp Pulse Resp B/P (MAP) Pulse Ox O2 Delivery O2 Flow Rate FiO2 09/13/19 09:34 96.4 09/13/19 09:05 102 141/56 09/13/19 08:20 96.4 102 18 141/56 (84) 97 09/13/19 04:00 98.8 99 16 148/71 (96) 97 09/13/19 04:00 105 09/13/19 00:00 104 09/13/19 00:00 99.3 101 16 143/63 (89) 96 09/12/19 21:00 Room Air 09/12/19 20:33 95 135/61 09/12/19 20:00 94 09/12/19 20:00 97.8 96 16 143/74 (97) 98 09/12/19 16:00 106 09/12/19 16:00 96.7 80 19 120/57 (78) 100 09/12/19 12:00 98.1 78 18 123/61 (81) 100 09/12/19 12:00 98 Intake and Output 09/12/19 09/13/19 19:00 07:00 Intake Total 40 ml 540 ml Output Total 1200 ml 2000 ml Balance -1160 ml -1460 ml Free Water 100 ml Tube Feeding 40 ml 440 ml Output Urine Total 1200 ml Hemodialysis UF 2000 ml # Voids 3 General Appearance: no acute distress HEENT: normocephalic Respiratory: chest wall non-tender, lungs clear Cardiovascular: normal peripheral pulses, normal rate Abdomen: normal bowel sounds Laboratory Tests 09/13/19 03:55: Random Vancomycin Level 8.5 Current Medications Medications (Trade) Dose Ordered Sig/Joan Route PRN Reason Start Time Stop Time Status Last Admin Dose Admin Acetaminophen (Tylenol) 650 mg Q4H PRN GT Mild Pain (Pain Scale 1-3) 09/08/19 06:15 10/08/19 03:29 09/13/19 09:04 Atorvastatin Calcium (Lipitor) 10 mg BEDTIME GT 09/08/19 21:00 12/07/19 20:59 09/12/19 20:33 Carvedilol (Coreg) 6.25 mg EVERY 12 HOURS GT 09/08/19 09:00 10/08/19 08:59 09/13/19 09:05 Epoetin Dion (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)) 6,000 unit SUBQ 09/11/19 21:00 12/08/19 20:59 Gabapentin (Neurontin) 300 mg THREE TIMES A DAY GT 09/08/19 09:00 10/08/19 08:59 09/13/19 09:05 Loperamide HCl (Imodium) 2 mg Q4H PRN GT Diarrhea 09/08/19 06:15 10/08/19 03:44 Meropenem 500 mg/ Sodium Chloride 55 ml @ 110 mls/hr Q24H IVPB 09/09/19 16:00 09/14/19 15:59 09/12/19 15:49 Vancomycin HCl (Vanco rx to dose) 1 ea DAILY PRN MISC Per rx protocol 09/09/19 13:00 10/09/19 12:59 Vancomycin HCl 1 gm/Dextrose 275 ml @ 183.708 mls/hr ONCE ONCE IVPB 09/13/19 10:30 09/13/19 11:59 09/13/19 10:30 Assessment/Plan Assessment/Plan IMPRESSION: 1. UTI. 2. Anemia. 3. ESRD, on dialysis. 4. Initial COVID-19 negative. DISCUSSION: Continue current medications and care. Initial COVID-19 pcr negative Blood transfusion. Empiric antibiotics. Hemodialysis. Saturating well on RA I will follow carefully. Abrahan Samaniego M.D. Abrahan Samaniego MD September 13, 2019 11:31
--- NOTE | 2019-09-13 11:59 | Diagnostic Imaging Report ---
EXAM: ULTRASOUND Venous Duplex Scan Blas Leg CLINICAL HISTORY: Leg pain and edema. COMPARISON: None TECHNIQUE: Doppler examination include grayscale images obtained with and without compression, and color and spectral doppler analysis. FINDINGS: Study is technically limited. Patient has contractures at the hip and knee bilaterally limiting accessibility and visualization. In the left lower extremity, there is no acute abnormality seen. Deep venous segments shows normal compressibility, phasicity and augmentation. On the right side, the common femoral vein and popliteal vein are normally patent. There is limited visualization of the proximal to distal superficial femoral vein. IMPRESSION: TECHNICALLY LIMITED STUDY DUE TO CONTRACTURES OF THE LOWER EXTREMITIES. NO EVIDENCE OF DVT IN THE LEFT LOWER EXTREMITY. RIGHT COMMON FEMORAL VEIN AND POPLITEAL VEIN ARE ALSO UNREMARKABLE. VERY LIMITED VISUALIZATION OF THE RIGHT SUPERFICIAL FEMORAL VEIN.
[2019-09-13 12:00] VITALS: BP 159/57
[2019-09-13 12:47] LABS: BASOPHILS % (AUTO) 0.5 % (0.0-2.0); EOSINOPHILS % (AUTO) 1.7 % (0.0-3.0); HEMOGLOBIN 11.1 G/DL (12.0-16.0); LYMPHOCYTES % (AUTO) 22.1 % (20.0-45.0); MEAN CORPUSCULAR VOLUME 86 FL (80-99); MONOCYTES % (AUTO) 7.6 % (1.0-10.0); NEUTROPHILS % (AUTO) 68.1 % (45.0-75.0); PLATELET COUNT 263 K/UL (150-450); RED BLOOD COUNT 3.83 M/UL (4.20-5.40); RED CELL DISTRIBUTION WIDTH 14.5 % (11.6-14.8); WHITE BLOOD COUNT 12.7 K/UL (4.8-10.8)
[2019-09-13 12:53] LABS: ANION GAP 7 mmol/L (5-15); BLOOD UREA NITROGEN 37 mg/dL (7-18); CALCIUM 8.9 MG/DL (8.5-10.1); CARBON DIOXIDE 33 MMOL/L (21-32); CHLORIDE 100 MMOL/L (98-107); CREATININE 2.8 MG/DL (0.55-1.30); PHOSPHORUS 2.5 MG/DL (2.5-4.9); POTASSIUM 3.8 MMOL/L (3.5-5.1); SODIUM 140 MMOL/L (136-145)
--- NOTE | 2019-09-13 13:07 | Surgery Progress Note ---
Surgery Progress Note Subjective Additional Comments no acute events h/h stable wbc persistent no n/v Objective Last 24 Hour Vital Signs Date Time Temp Pulse Resp B/P (MAP) Pulse Ox O2 Delivery O2 Flow Rate FiO2 09/13/19 09:34 96.4 09/13/19 09:05 102 141/56 09/13/19 09:00 Room Air 09/13/19 08:20 96.4 102 18 141/56 (84) 97 09/13/19 08:00 107 09/13/19 04:00 98.8 99 16 148/71 (96) 97 09/13/19 04:00 105 09/13/19 00:00 104 09/13/19 00:00 99.3 101 16 143/63 (89) 96 09/12/19 21:00 Room Air 09/12/19 20:33 95 135/61 09/12/19 20:00 94 09/12/19 20:00 97.8 96 16 143/74 (97) 98 09/12/19 16:00 106 09/12/19 16:00 96.7 80 19 120/57 (78) 100 I&O Intake and Output 09/12/19 09/13/19 19:00 07:00 Intake Total 40 ml 540 ml Output Total 1200 ml 2000 ml Balance -1160 ml -1460 ml Free Water 100 ml Tube Feeding 40 ml 440 ml Output Urine Total 1200 ml Hemodialysis UF 2000 ml # Voids 3 Dressing: other Wound: other Drains: other Cardiovascular: RSR Respiratory: decreased breath sounds Abdomen: soft, non-tender, present bowel sounds Extremities: no cyanosis Laboratory Tests Test 09/13/19 03:55 09/13/19 11:40 Random Vancomycin Level 8.5 ug/mL White Blood Count 12.7 K/UL (4.8-10.8) H Red Blood Count 3.83 M/UL (4.20-5.40) L Hemoglobin 11.1 G/DL (12.0-16.0) L Hematocrit 33.0 % (37.0-47.0) L Mean Corpuscular Volume 86 FL (80-99) Mean Corpuscular Hemoglobin 28.9 PG (27.0-31.0) Mean Corpuscular Hemoglobin Concent 33.6 G/DL (32.0-36.0) Red Cell Distribution Width 14.5 % (11.6-14.8) Platelet Count 263 K/UL (150-450) Mean Platelet Volume 6.3 FL (6.5-10.1) L Neutrophils (%) (Auto) 68.1 % (45.0-75.0) Lymphocytes (%) (Auto) 22.1 % (20.0-45.0) Monocytes (%) (Auto) 7.6 % (1.0-10.0) Eosinophils (%) (Auto) 1.7 % (0.0-3.0) Basophils (%) (Auto) 0.5 % (0.0-2.0) Sodium Level 140 MMOL/L (136-145) Potassium Level 3.8 MMOL/L (3.5-5.1) Chloride Level 100 MMOL/L (98-107) Carbon Dioxide Level 33 MMOL/L (21-32) H Anion Gap 7 mmol/L (5-15) Blood Urea Nitrogen 37 mg/dL (7-18) H Creatinine 2.8 MG/DL (0.55-1.30) H Estimat Glomerular Filtration Rate 19.3 mL/min (>60) Glucose Level 111 MG/DL (74-106) H Calcium Level 8.9 MG/DL (8.5-10.1) Phosphorus Level 2.5 MG/DL (2.5-4.9) Magnesium Level 2.3 MG/DL (1.8-2.4) Plan Problems: (1) COVID-19 ruled out Assessment & Plan: FINDINGS: Lungs: Left basilar opacity with volume loss, likely atelectasis however a focus of infection could have a similar appearance. Pleural space: No pleural effusion. No pneumothorax. Heart: Unremarkable. No cardiomegaly. Bones/joints: No fracture. Vasculature: Atherosclerotic calcifications. Tubes, lines and devices: Right IJ large bore dialysis catheter terminates within the right atrium. IMPRESSION: Left basilar opacity with volume loss, likely atelectasis however a focus of infection could have a similar appearance. leukocytosis anemia pending test (2) Protein calorie malnutrition Assessment & Plan: DAILY ESTIMATED NEEDS: Needs based on Wounds, HD 57kg 30-35 kcals/kg 5588-5066 total kcals 1.25-1.8 g protein/kg 71-103 g total protein Fluids per MD NUTRITION DIAGNOSIS: * Increased kcal and prot needs r/t wound healing and renal failure as evidenced by w/ multiple pressure injuries, including full thickness and unstageable wounds, refer to MD reports, pt w/ ESRD on HD, GT dep. CURRENT TF:Nepro @ 40ml/hr x 20 hrs ENTERAL NUTRITION RECOMMENDATIONS: Nepro @ 45ml/hr x 22 hrs to provide 990ml, 1782kcal, 80g prot, 720ml free water - Rec to INCREASE RATE AND RUNNING TIME ABOVE to better meet est kcal and pro needs - HOB over 30 degrees/ water flush per MD ADDITIONAL RECOMMENDATIONS: 1) Calibrated bedscale wt 2) Wound Care: add Nephrovite x 1 add Saw 1ptk BID via GT 3) Monitor BGs, consider NISS: BGs consistently mildly elevated 4) Monitor lytes and renal fxn (3) Pressure ulcer (4) Decubitus skin ulcer Assessment & Plan: Pt presented on admission with multiple Pressure injuries. Full thickness Pressure Injury R shoulder(L)2.8cm x (W)2cm. Base of wound is 75 % slough, 25% beefy red granulation. Slough removed with gentle friction. Post removal of slough,small amt slough at base of wound. Small amt sanguineous exudate. Edges flat and adherent to base of wound. Periwound without erythema, induration or fluctuance. Darker skin tone without induration ,fluctuance or tenderness at sacrococcygeal area. Non-blanching erythema and scattered areas of hyperpigmentation noted to R and L gluteal cheeks. Pt denied tenderness when affected areas palpated. Full thickness Pressure injury R hip (L)5.5cm x (W)10.2cm x (D)2.6cm. Base of wound is 75% pink granulation,25% Loose fibrinous slough. Bone is palpable.Edges flat ,pink and adherent to base of wound. Small amt. non-odorous serous exudate. Hypopigmentation noted to perineum and labia majora. Unstageable Pressure Injury R heel(L)3.5cm x (W)3.3cm . Base of wound is 100% necrotic with semidetached with surrounding yellow slough. Edges area dry, black. Periwound is non-blanchable and fluctuant. Maroon discoloration with fluctuance noted to distal/lateral R foot (L)2.8cm x ( W)2.5cm. Resolving pressure injury R Hallux(L)3.5cm x (W)3.3cm.Vinings epithelial at base of wound with surrounding dry brown borders. L heel is boggy with non-blanching erythema.Historical scarring from previous wounds noted. Unstageable Pressure Injury L hallux(L)3.5cm x (W)2.8cm. Base of wound has 90% loose necrotic cap,surrounding slough. Loose necrotic cap easily removed with saline moistened gauze. At base of wound is 100% yellow slough, marginal erythema with small area of necrosis noted along borders. Small amt seropurulent non-odorous exudate noted. Stable dry necrosis at L st metatarsal head. Tx.Plan: Cleanse wound R shoulder with Saline. Apply Therahoney. Apply Cavilon Skin Barrier periwound. Cover with Optifoam drsg. Change every 3 days and prn. Cleanse R hip with Saline. Loosely pack with Therahoney impregnated Kerlix. Apply Moisture Barrier Paste periwound. Cover with Optifoam drsg. Change Daily and prn. Apply Moisture Barrier Paste to Sacrum. Cover with Optifoam drsg. Change every 3 days and prn. Apply Betadine to R heel, R hallux,Distal/lateral R foot. Cover with Abd pad and wrap with Kerlix every 3 days and prn. Apply Betadine to L hallux,L 1st metatarsal head,L heel. Cover with Abd pads and wrap with Kerlix every 3 days and prn. Reposition Back to L Side at least every 2hours or as tolerated. Place Pillow between knees. Off-load heels with pillow. APM/TIEN Mattress overlay. (5) Suspected COVID-19 virus infection (6) Anemia Assessment & Plan: transfused prbc h/h stable trend labs Anshul Nava September 13, 2019 13:07
[2019-09-13] MEDS ORDERED: MERREM MONIT1 EA IV (13:42)
--- NOTE | 2019-09-13 13:59 | Discharge Summary ---
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 Admitted to medical service seen by hematology and nephrology, s/p 2 unit of RBC with improvement in blood count from, also treated with Procrit. Seen by ID for sepsis due to Pseudomonas and ESBL Klebsiella + S. capitis bacteremia, will need three more days of vancomycin (to be given with HD) and meropenem 500 mg PO q24h. Patient cleared for discharge to [facility]. Discharge Diagnoses: #ESRD on HD #Acute on chronic anemia #Anemia of ESRD #ESBL Klebsiella UTI #Indwelling Sanchez catheter #S. capitis bacteremia #Sepsis, present on admit #HTN #elevated troponin #Elevated BNP #Dysphagia #Advanced Dementia #Pressure wounds Spent 36 minutes on the patient's discharge which includes time spent on coordination with RN, family caseworker, consulting MD Discharge Medications New Medications: Meropenem (Merrem) 500 Mg Vial 1 EA IV Q24H for 3 Days, #1 VIAL Continued Medications: Acetaminophen* (Acetaminophen 325MG Tablet*) 325 Mg Tablet 650 MG ORAL Q6H PRN for Mild Pain (Pain Scale 1-3), TAB (This prescription has been renewed) Atorvastatin Calcium* (Lipitor*) 10 Mg Tablet 10 MG GT QHS for 30 Days, #30 TAB Carvedilol (Coreg) 6.25 Mg Tablet 6.25 MG ORAL EVERY 12 HOURS for 30 Days, #30 TAB Furosemide* (Lasix*) 40 Mg Tablet 40 MG GT DAILY for EDEMA for 3 Days, TAB (This prescription has been renewed) Gabapentin (Gabapentin) 300 Mg/6 Ml Solution 300 MG GT BID for NEUROPATHY for 30 Days, ML (This prescription has been renewed ) Loperamide Hcl (Loperamide) 1 Mg/7.5 Ml Liquid 2 MG NG Q6H PRN for 30 Days, #30 ML Discontinued Medications: [Amikacin Rx to dose] () 1 EA MISC 1 EA MISC DAILY PRN Micafungin (Mycamine) 100 Mg Vial 100 MG IVPB Q24H for 3 Days, #3 VIAL [id number],Iso (Zosyn 3.375 Gm Pre Mix-Bag) 3.375 Gm/50 Ml Froz.piggy 3.375 GM IVPB EVERY 8 HOURS for 3 Days, BAG Discharge Discharge Vital Signs Last Vital Signs Date Time Temp Pulse Resp B/P (MAP) Pulse Ox O2 Delivery O2 Flow Rate FiO2 09/13/19 09:34 96.4 09/13/19 09:05 102 141/56 09/13/19 09:00 Room Air 09/13/19 08:20 18 97 09/08/19 01:53 2.0 Discharge Disposition Patient was discharged to SNF Discharge Diagnoses: (1) UTI (urinary tract infection) (2) Sepsis (3) Protein calorie malnutrition (4) Pressure ulcer Oumar Foy MD September 13, 2019 13:59
[2019-09-13 16:00] VITALS: BP 150/67
--- NOTE | 2019-09-13 17:27 | Infectious Diseases Prog Note ---
Assessment/Plan Assessment/Plan ASSESSMENT AND PLAN: 1. pseudomonas uti/esbl klebsiella uti, length control tester bacteremia (s.capitis), sepsis, leukocytosis, fevers, sirs, vre colonization - vancomycin and meropenem x 5 days more (to complete 10 day treatment course ) - monitor leukocytosis and fevers - monitor labs - chest x-ray - negative - surveillance blood cultures negative - covid-19 pcr neg x 1, f/u ordered 2. She has history of hemodialysis, end-stage renal disease, chronic kidney disease. 3. The patient has history of hypertension. 4. Anemia. 5. Elevated creatinine. 6. Hypertension treatment per primary care team. 7. Wound care per Surgery. 8. Dysphagia, G-tube 9. No known drug allergies. 10. Social history is negative. 11. Family History is noncontributory. 12. MAR was noted. 13. Case discussed with RN. 14. Continue treatment per primary consultants. 15. Orders were noted and entered. Subjective Constitutional: Reports: fatigue; Denies: fever HEENT: Denies: congestion Respiratory: Denies: shortness of breath Cardiovascular: Denies: chest pain Gastrointestinal/Abdominal: Denies: nausea, vomiting, diarrhea Genitourinary: Reports: other - + hargrove Neurologic: Reports: weakness - lethargic Psychiatric: Reports: other - Na Skin: Denies: rash Hematologic: Denies: bleeding Musculoskeletal: Reports: other - NA Allergies: Coded Allergies: No Known Allergies (Unverified , 06/24/19) Objective Vital Signs Last 24 Hour Vital Signs Date Time Temp Pulse Resp B/P (MAP) Pulse Ox O2 Delivery O2 Flow Rate FiO2 09/13/19 12:00 98.6 159 20 159/57 (91) 97 09/13/19 12:00 90 09/13/19 09:34 96.4 09/13/19 09:05 102 141/56 09/13/19 09:00 Room Air 09/13/19 08:20 96.4 102 18 141/56 (84) 97 09/13/19 08:00 107 09/13/19 04:00 98.8 99 16 148/71 (96) 97 09/13/19 04:00 105 09/13/19 00:00 104 09/13/19 00:00 99.3 101 16 143/63 (89) 96 09/12/19 21:00 Room Air 5/21/20 20:33 95 135/61 09/12/19 20:00 94 09/12/19 20:00 97.8 96 16 143/74 (97) 98 Height (Feet): 5 Height (Inches): 6.00 Weight (Pounds): 119 General Appearance: no acute distress HEENT: normocephalic, atraumatic, anicteric, mucous membranes moist Respiratory/Chest: crackles/rales, rhonchi - bilaterally Cardiovascular: normal rate, regular rhythm, no gallop/murmur, no JVD Abdomen: normal bowel sounds, soft, non tender, no organomegaly, non distended Genitourinary: other - + hargrove - urine slt cloudy Extremities: other - wounds covered Skin: no rash Neurologic/Psychiatric: motor weakness, other - lethargic, weak Lymphatic: no neck adenopathy Musculoskeletal: other - + contractures Objective Procedure: XRAY Chest 1v Procedure: XRAY Chest 1v Reason for study: Shortness of breath. Comparison films: 09/07/2019. FINDINGS: Right central venous catheter remains in place. Vascularity is normal. Mild left basilar hazy densities unchanged. Cardiac and mediastinal silhouette are within normal limits. There may be a trace left effusion. The bony thorax appear unremarkable. IMPRESSION: NO ACUTE CARDIOPULMONARY DISEASE. Microbiology Date/Time Source Procedure Growth Status 09/10/19 06:35 Blood Blood Culture - Preliminary NO GROWTH AFTER 48 HOURS Resulted 09/08/19 07:30 Wound Gram Stain - Final Complete 09/08/19 07:30 Wound Culture - Final Usual Skin Cristina Complete 09/07/19 18:50 Nasal Nares MRSA Culture - Final NO METHICILLIN RESISTANT STAPH AUREUS... Complete 09/07/19 18:05 Urine,Clean Catch Urine Culture - Final Klebsiella Pneumoniae Esbl Pseudomonas Aeruginosa Complete 09/07/19 18:50 Rectum - Final NO CARBAPENEM-RESISTANT ENTEROBACTERI... Complete Laboratory Tests Test 09/13/19 03:55 09/13/19 11:40 Random Vancomycin Level 8.5 ug/mL White Blood Count 12.7 K/UL (4.8-10.8) H Red Blood Count 3.83 M/UL (4.20-5.40) L Hemoglobin 11.1 G/DL (12.0-16.0) L Hematocrit 33.0 % (37.0-47.0) L Mean Corpuscular Volume 86 FL (80-99) Mean Corpuscular Hemoglobin 28.9 PG (27.0-31.0) Mean Corpuscular Hemoglobin Concent 33.6 G/DL (32.0-36.0) Red Cell Distribution Width 14.5 % (11.6-14.8) Platelet Count 263 K/UL (150-450) Mean Platelet Volume 6.3 FL (6.5-10.1) L Neutrophils (%) (Auto) 68.1 % (45.0-75.0) Lymphocytes (%) (Auto) 22.1 % (20.0-45.0) Monocytes (%) (Auto) 7.6 % (1.0-10.0) Eosinophils (%) (Auto) 1.7 % (0.0-3.0) Basophils (%) (Auto) 0.5 % (0.0-2.0) Sodium Level 140 MMOL/L (136-145) Potassium Level 3.8 MMOL/L (3.5-5.1) Chloride Level 100 MMOL/L (98-107) Carbon Dioxide Level 33 MMOL/L (21-32) H Anion Gap 7 mmol/L (5-15) Blood Urea Nitrogen 37 mg/dL (7-18) H Creatinine 2.8 MG/DL (0.55-1.30) H Estimat Glomerular Filtration Rate 19.3 mL/min (>60) Glucose Level 111 MG/DL (74-106) H Calcium Level 8.9 MG/DL (8.5-10.1) Phosphorus Level 2.5 MG/DL (2.5-4.9) Magnesium Level 2.3 MG/DL (1.8-2.4) Current Medications Medications (Trade) Dose Ordered Sig/Joan Route PRN Reason Start Time Stop Time Status Last Admin Dose Admin Acetaminophen (Tylenol) 650 mg Q4H PRN GT Mild Pain (Pain Scale 1-3) 09/08/19 06:15 10/08/19 03:29 09/13/19 09:04 Atorvastatin Calcium (Lipitor) 10 mg BEDTIME GT 09/08/19 21:00 12/07/19 20:59 09/12/19 20:33 Carvedilol (Coreg) 6.25 mg EVERY 12 HOURS GT 09/08/19 09:00 10/08/19 08:59 09/13/19 09:05 Epoetin Dion (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)) 6,000 unit SUBQ 09/11/19 21:00 12/08/19 20:59 Gabapentin (Neurontin) 300 mg THREE TIMES A DAY GT 09/08/19 09:00 10/08/19 08:59 09/13/19 14:20 Loperamide HCl (Imodium) 2 mg Q4H PRN GT Diarrhea 09/08/19 06:15 10/08/19 03:44 Loperamide HCl (Imodium) 2 mg Q6H PRN GT Diarrhea 09/13/19 17:30 10/13/19 17:29 UNV Meropenem 500 mg/ Sodium Chloride 55 ml @ 110 mls/hr Q24H IVPB 09/09/19 16:00 09/18/19 16:59 09/12/19 15:49 Vancomycin HCl (Vanco rx to dose) 1 ea DAILY PRN MISC Per rx protocol 09/09/19 13:00 10/09/19 12:59 Ana Rosado MD September 13, 2019 17:26
[2019-09-13] MEDS: Meropenem 500mg/NS 55ml IVPB SCH ×2 (18:24)
[2019-09-13 20:00] VITALS: BP 105/48
[2019-09-13] MEDS: Epoetin Alfa-EPBX(ESRD on dialysis)3000 units/ml vial SUBQ SCH (20:33)
[2019-09-14] VITALS: BP 130/61
[2019-09-14 04:00] VITALS: BP 116/53
--- NOTE | 2019-09-14 07:34 | Nephrology Progress Note ---
Assessment/Plan Plan #ESRD on HD TTHS- #anemia of CKD #UTI #dysphagia s/p PEG #multiple pressure wounds #HTN - follow labs today - hemoglobin stable - STRICT I&Os - daily weights - replete lytes - prbc transfusion for hemoglobin < 7 - increase epo to 6k TIW - IV iron - monitor CBC - on vancomycin and meropenem - continue coreg 6.25mg BID - replete phos - monitor mag, phos and BMP daily Time spent 45 min > 50% on care coordination and counseling Subjective ROS Limited/Unobtainable: Yes Subjective Labs pending today on IV iron evaluated by GI Objective Objective Last 24 Hour Vital Signs Date Time Temp Pulse Resp B/P (MAP) Pulse Ox O2 Delivery O2 Flow Rate FiO2 09/14/19 04:00 109 09/14/19 04:00 99.0 101 19 116/53 (74) 92 09/14/19 00:00 98.8 103 19 130/61 (84) 96 09/14/19 00:00 104 09/13/19 21:00 Room Air 09/13/19 20:32 97 105/48 09/13/19 20:00 98.5 97 18 105/48 (67) 98 09/13/19 20:00 97 09/13/19 16:00 96.6 102 19 150/67 (94) 96 09/13/19 16:00 88 09/13/19 12:00 98.6 108 20 159/57 (91) 97 09/13/19 12:00 90 09/13/19 09:34 96.4 09/13/19 09:05 102 141/56 09/13/19 09:00 Room Air 09/13/19 08:20 96.4 102 18 141/56 (84) 97 09/13/19 08:00 107 Intake and Output 09/13/19 09/14/19 19:00 07:00 Output Total 1200 ml 50 ml Balance -1200 ml -50 ml Output Urine Total 1200 ml 50 ml # Voids 3 Laboratory Tests 09/13/19 11:40: White Blood Count 12.7H, Red Blood Count 3.83L, Hemoglobin 11.1L, Hematocrit 33.0L, Mean Corpuscular Volume 86, Mean Corpuscular Hemoglobin 28.9, Mean Corpuscular Hemoglobin Concent 33.6, Red Cell Distribution Width 14.5, Platelet Count 263, Mean Platelet Volume 6.3L, Neutrophils (%) (Auto) 68.1, Lymphocytes ( %) (Auto) 22.1, Monocytes (%) (Auto) 7.6, Eosinophils (%) (Auto) 1.7, Basophils (%) (Auto) 0.5, Sodium Level 140, Potassium Level 3.8, Chloride Level 100, Carbon Dioxide Level 33H, Anion Gap 7, Blood Urea Nitrogen 37H, Creatinine 2.8H , Estimat Glomerular Filtration Rate 19.3, Glucose Level 111H, Calcium Level 8.9 , Phosphorus Level 2.5, Magnesium Level 2.3 Height (Feet): 5 Height (Inches): 6.00 Weight (Pounds): 119 Objective General Appearance: confused, cachetic, thin Lines, tubes and drains: peripheral HEENT: normocephalic, atraumatic Respiratory/Chest: chest wall non-tender, no respiratory distress Cardiovascular/Chest: normal peripheral pulses Abdomen: feeding tube Extremities: non-pitting, no cyanosis, other - unable to move extremities. Skin Exam: other - pressure ulcers Rory Oconnor M.D. September 14, 2019 07:34
[2019-09-14 08:00] VITALS: BP 130/60
[2019-09-14 08:54] LABS: BASOPHILS % (AUTO) 0.6 % (0.0-2.0); EOSINOPHILS % (AUTO) 1.9 % (0.0-3.0); HEMATOCRIT 34.9 % (37.0-47.0); HEMOGLOBIN 11.6 G/DL (12.0-16.0); LYMPHOCYTES % (AUTO) 24.7 % (20.0-45.0); MEAN CORPUSCULAR VOLUME 87 FL (80-99); MONOCYTES % (AUTO) 5.4 % (1.0-10.0); NEUTROPHILS % (AUTO) 67.5 % (45.0-75.0); PLATELET COUNT 285 K/UL (150-450); RED BLOOD COUNT 4.01 M/UL (4.20-5.40); RED CELL DISTRIBUTION WIDTH 14.4 % (11.6-14.8); WHITE BLOOD COUNT 13.8 K/UL (4.8-10.8)
[2019-09-14] MEDS: Carvedilol 6.25mg Tab GT SCH ×2 (09:07→21:25)
[2019-09-14 09:49] LABS: ALANINE AMINOTRANSFERASE 32 U/L (12-78); ALBUMIN 2.6 G/DL (3.4-5.0); ALBUMIN/GLOBULIN RATIO 0.6 (1.0-2.7); ALKALINE PHOSPHATASE 73 U/L (46-116); ANION GAP 12 mmol/L (5-15); ASPARTATE AMINO TRANSFERASE 28 U/L (15-37); BILIRUBIN,TOTAL 0.5 MG/DL (0.2-1.0); BLOOD UREA NITROGEN 51 mg/dL (7-18); CALCIUM 9.1 MG/DL (8.5-10.1); CARBON DIOXIDE 28 MMOL/L (21-32); CHLORIDE 96 MMOL/L (98-107); CREATININE 3.4 MG/DL (0.55-1.30); POTASSIUM 3.8 MMOL/L (3.5-5.1); SODIUM 136 MMOL/L (136-145)
--- NOTE | 2019-09-14 10:17 | Hematology/Onc Progress Note ---
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 Otherwise unremarkable pancreas --> as per gi, may need further eval with endsocopy --> with pancreatitis at this time, may be obscuring picture --> reimage in short order, 6 months --> ca19.9 60 but may be elevated due to pancreatitis --> cea of 10--> --> monitor lfts daily # Anemia of chronic disease due to underlying chronic medical issues, multifactorial v Gi bleed --> Anemia workup has been reviewed, ferritin 1300 -->1800 --> No evidence of hemolysis is noted, peripheral smear has been reviewed. --> Hgb goal >7. Transfuse prn. --> Epogen has been started --> IV IRON completed --> Medications have been reviewed --> hgb 6-->7.1-->12-->11.2-->-->11.6 --> 09/07 stool ob negative --> rbc: 2 units 09/10/2019, --> bone marrow biopsy is not indicated given the other more likely causes # Leukocytosis/elevated white blood cell count, unspecified likely related to underlying stress reaction, smoking v more likely infection in this case, uti now --> have reviewed peripheral smear and bandemia/neutrophilia noted --> continue antibiotics if they have been started by ID team --> monitor for resolution --> as per id care, on broad spectrum abx --> wbc 14-->12-->9-->14.9-->12 --> per id recs, on: cftx-->bethany/vanc --> blood cx++ x2 # Thrombocytopenia - potential causes multifactorial, evaluate liver and viral etiologies to begin, in this case due to sepsisand pancreatitis --> Hep panel and HIV are both negative --> US abd to evaluate for cirrhosis and hsm --> pleural effusions noted, hsm is neg --> Peripheral smear ordered to evaluate for blasts /schistocytes --> abx and other meds have been reviewed --> ok for ppx if plt >50k w/ either heparin or lovenox # 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 Greatly appreciate consultation. Subjective Allergies: Coded Allergies: No Known Allergies (Unverified , 06/24/19) Subjective 09/09 on tele, labs pending, stool ob negative, iv abx 09/10 s/p 2 units rbc, hgb improved to 12, on iv iron, hep b neg. 09/11 hd for today, h/h stable, no acute distress 09/12 nonverbal, no overnight events, bethany/vanc 09/13 le vishal duplex bilat negative, clood cx++ x2, no distress Objective Objective Current Medications Medications (Trade) Dose Ordered Sig/Joan Route PRN Reason Start Time Stop Time Status Last Admin Dose Admin Acetaminophen (Tylenol) 650 mg Q4H PRN GT Mild Pain (Pain Scale 1-3) 09/08/19 06:15 10/08/19 03:29 09/13/19 09:04 Atorvastatin Calcium (Lipitor) 10 mg BEDTIME GT 09/08/19 21:00 12/07/19 20:59 09/13/19 20:32 Carvedilol (Coreg) 6.25 mg EVERY 12 HOURS GT 09/08/19 09:00 10/08/19 08:59 09/14/19 09:07 Epoetin Dion (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)) 6,000 unit MON-MON-MON SUBQ 09/11/19 21:00 12/08/19 20:59 09/13/19 20:33 Gabapentin (Neurontin) 300 mg THREE TIMES A DAY GT 09/08/19 09:00 10/08/19 08:59 09/14/19 09:07 Loperamide HCl (Imodium) 2 mg Q4H PRN GT Diarrhea 09/08/19 06:15 10/08/19 03:44 09/13/19 17:25 Loperamide HCl (Imodium) 2 mg Q6H PRN GT Diarrhea 09/13/19 17:30 10/13/19 17:29 Meropenem 500 mg/ Sodium Chloride 55 ml @ 110 mls/hr Q24H IVPB 09/09/19 16:00 09/18/19 16:59 09/13/19 18:24 Vancomycin HCl (Vanco rx to dose) 1 ea DAILY PRN MISC Per rx protocol 09/09/19 13:00 10/09/19 12:59 Last 24 Hour Vital Signs Date Time Temp Pulse Resp B/P (MAP) Pulse Ox O2 Delivery O2 Flow Rate FiO2 09/14/19 09:07 102 130/60 09/14/19 08:00 98.1 102 22 130/60 (83) 98 09/14/19 04:00 109 09/14/19 04:00 99.0 101 19 116/53 (74) 92 09/14/19 00:00 98.8 103 19 130/61 (84) 96 09/14/19 00:00 104 09/13/19 21:00 Room Air 09/13/19 20:32 97 105/48 09/13/19 20:00 98.5 97 18 105/48 (67) 98 09/13/19 20:00 97 09/13/19 16:00 96.6 102 19 150/67 (94) 96 09/13/19 16:00 88 09/13/19 12:00 98.6 108 20 159/57 (91) 97 09/13/19 12:00 90 09/13/19 09:34 96.4 09/13/19 09:05 102 141/56 09/13/19 09:00 Room Air 09/13/19 08:20 96.4 102 18 141/56 (84) 97 09/13/19 08:00 107 09/13/19 04:00 98.8 99 16 148/71 (96) 97 09/13/19 04:00 105 09/13/19 00:00 104 09/13/19 00:00 99.3 101 16 143/63 (89) 96 09/12/19 21:00 Room Air 09/12/19 20:33 95 135/61 09/12/19 20:00 94 09/12/19 20:00 97.8 96 16 143/74 (97) 98 09/12/19 16:00 106 09/12/19 16:00 96.7 80 19 120/57 (78) 100 09/12/19 12:00 98.1 78 18 123/61 (81) 100 09/12/19 12:00 98 Intake and Output 09/13/19 09/14/19 19:00 07:00 Output Total 1200 ml 50 ml Balance -1200 ml -50 ml Output Urine Total 1200 ml 50 ml # Voids 3 Labs Test 09/12/19 04:50 09/13/19 03:55 09/13/19 11:40 09/14/19 06:15 White Blood Count 12.0 K/UL (4.8-10.8) 12.7 K/UL (4.8-10.8) 13.8 K/UL (4.8-10.8) Red Blood Count 3.79 M/UL (4.20-5.40) 3.83 M/UL (4.20-5.40) 4.01 M/UL (4.20-5.40) Hemoglobin 11.2 G/DL (12.0-16.0) 11.1 G/DL (12.0-16.0) 11.6 G/DL (12.0-16.0) Hematocrit 32.4 % (37.0-47.0) 33.0 % (37.0-47.0) 34.9 % (37.0-47.0) Mean Corpuscular Volume 85 FL (80-99) 86 FL (80-99) 87 FL (80-99) Mean Corpuscular Hemoglobin 29.4 PG (27.0-31.0) 28.9 PG (27.0-31.0) 28.9 PG (27.0-31.0) Mean Corpuscular Hemoglobin Concent 34.5 G/DL (32.0-36.0) 33.6 G/DL (32.0-36.0) 33.3 G/DL (32.0-36.0) Red Cell Distribution Width 14.3 % (11.6-14.8) 14.5 % (11.6-14.8) 14.4 % (11.6-14.8) Platelet Count 333 K/UL (150-450) 263 K/UL (150-450) 285 K/UL (150-450) Mean Platelet Volume 6.1 FL (6.5-10.1) 6.3 FL (6.5-10.1) 6.4 FL (6.5-10.1) Neutrophils (%) (Auto) 65.1 % (45.0-75.0) 68.1 % (45.0-75.0) 67.5 % (45.0-75.0) Lymphocytes (%) (Auto) 24.7 % (20.0-45.0) 22.1 % (20.0-45.0) 24.7 % (20.0-45.0) Monocytes (%) (Auto) 7.4 % (1.0-10.0) 7.6 % (1.0-10.0) 5.4 % (1.0-10.0) Eosinophils (%) (Auto) 2.2 % (0.0-3.0) 1.7 % (0.0-3.0) 1.9 % (0.0-3.0) Basophils (%) (Auto) 0.5 % (0.0-2.0) 0.5 % (0.0-2.0) 0.6 % (0.0-2.0) Sodium Level 138 MMOL/L (136-145) 140 MMOL/L (136-145) 136 MMOL/L (136-145) Potassium Level 3.6 MMOL/L (3.5-5.1) 3.8 MMOL/L (3.5-5.1) 3.8 MMOL/L (3.5-5.1) Chloride Level 100 MMOL/L (98-107) 100 MMOL/L (98-107) 96 MMOL/L (98-107) Carbon Dioxide Level 30 MMOL/L (21-32) 33 MMOL/L (21-32) 28 MMOL/L (21-32) Anion Gap 9 mmol/L (5-15) 7 mmol/L (5-15) 12 mmol/L (5-15) Blood Urea Nitrogen 42 mg/dL (7-18) 37 mg/dL (7-18) 51 mg/dL (7-18) Creatinine 3.0 MG/DL (0.55-1.30) 2.8 MG/DL (0.55-1.30) 3.4 MG/DL (0.55-1.30) Estimat Glomerular Filtration Rate 17.8 mL/min (>60) 19.3 mL/min (>60) 15.4 mL/min (>60) Glucose Level 124 MG/DL (74-106) 111 MG/DL (74-106) 114 MG/DL (74-106) Calcium Level 8.8 MG/DL (8.5-10.1) 8.9 MG/DL (8.5-10.1) 9.1 MG/DL (8.5-10.1) Phosphorus Level 3.5 MG/DL (2.5-4.9) 2.5 MG/DL (2.5-4.9) Magnesium Level 2.6 MG/DL (1.8-2.4) 2.3 MG/DL (1.8-2.4) Random Vancomycin Level 10.2 ug/mL 8.5 ug/mL Total Bilirubin 0.5 MG/DL (0.2-1.0) Aspartate Amino Transf (AST/SGOT) 28 U/L (15-37) Alanine Aminotransferase (ALT/SGPT) 32 U/L (12-78) Alkaline Phosphatase 73 U/L (46-116) Total Protein 6.8 G/DL (6.4-8.2) Albumin 2.6 G/DL (3.4-5.0) Globulin 4.2 g/dL Albumin/Globulin Ratio 0.6 (1.0-2.7) Height (Feet): 5 Height (Inches): 6.00 Weight (Pounds): 119 Objective Physical Exam: Vitals: reviewed General: NAD, groans to pain stimuli HEENT: nc, at Neck: supple Chest: clear breath sounds bilaterally Cardiovascular: RRR, no s3, s4 Abdomen: soft, nontender, nd ++ peg Extremities: no cce, normal range of motion Neuro: confused, nonverbal Skin: other - pressure sores to right side Bola Aldridge MD September 14, 2019 10:17
--- NOTE | 2019-09-14 10:40 | Surgery Progress Note ---
Surgery Progress Note Subjective Additional Comments no acute events labs reviewed exam stable comfortable Objective Last 24 Hour Vital Signs Date Time Temp Pulse Resp B/P (MAP) Pulse Ox O2 Delivery O2 Flow Rate FiO2 09/14/19 09:07 102 130/60 09/14/19 09:00 Room Air 09/14/19 08:00 102 09/14/19 08:00 98.1 102 22 130/60 (83) 98 09/14/19 04:00 109 09/14/19 04:00 99.0 101 19 116/53 (74) 92 09/14/19 00:00 98.8 103 19 130/61 (84) 96 09/14/19 00:00 104 09/13/19 21:00 Room Air 09/13/19 20:32 97 105/48 09/13/19 20:00 98.5 97 18 105/48 (67) 98 09/13/19 20:00 97 09/13/19 16:00 96.6 102 19 150/67 (94) 96 09/13/19 16:00 88 09/13/19 12:00 98.6 108 20 159/57 (91) 97 09/13/19 12:00 90 I&O Intake and Output 09/13/19 09/14/19 19:00 07:00 Output Total 1200 ml 50 ml Balance -1200 ml -50 ml Output Urine Total 1200 ml 50 ml # Voids 3 Dressing: other Wound: other Drains: other Cardiovascular: RSR Respiratory: decreased breath sounds Abdomen: soft, non-tender, present bowel sounds Extremities: no cyanosis Laboratory Tests Test 09/13/19 11:40 09/14/19 06:15 White Blood Count 12.7 K/UL (4.8-10.8) H 13.8 K/UL (4.8-10.8) H Red Blood Count 3.83 M/UL (4.20-5.40) L 4.01 M/UL (4.20-5.40) L Hemoglobin 11.1 G/DL (12.0-16.0) L 11.6 G/DL (12.0-16.0) L Hematocrit 33.0 % (37.0-47.0) L 34.9 % (37.0-47.0) L Mean Corpuscular Volume 86 FL (80-99) 87 FL (80-99) Mean Corpuscular Hemoglobin 28.9 PG (27.0-31.0) 28.9 PG (27.0-31.0) Mean Corpuscular Hemoglobin Concent 33.6 G/DL (32.0-36.0) 33.3 G/DL (32.0-36.0) Red Cell Distribution Width 14.5 % (11.6-14.8) 14.4 % (11.6-14.8) Platelet Count 263 K/UL (150-450) 285 K/UL (150-450) Mean Platelet Volume 6.3 FL (6.5-10.1) L 6.4 FL (6.5-10.1) L Neutrophils (%) (Auto) 68.1 % (45.0-75.0) 67.5 % (45.0-75.0) Lymphocytes (%) (Auto) 22.1 % (20.0-45.0) 24.7 % (20.0-45.0) Monocytes (%) (Auto) 7.6 % (1.0-10.0) 5.4 % (1.0-10.0) Eosinophils (%) (Auto) 1.7 % (0.0-3.0) 1.9 % (0.0-3.0) Basophils (%) (Auto) 0.5 % (0.0-2.0) 0.6 % (0.0-2.0) Sodium Level 140 MMOL/L (136-145) 136 MMOL/L (136-145) Potassium Level 3.8 MMOL/L (3.5-5.1) 3.8 MMOL/L (3.5-5.1) Chloride Level 100 MMOL/L (98-107) 96 MMOL/L (98-107) L Carbon Dioxide Level 33 MMOL/L (21-32) H 28 MMOL/L (21-32) Anion Gap 7 mmol/L (5-15) 12 mmol/L (5-15) Blood Urea Nitrogen 37 mg/dL (7-18) H 51 mg/dL (7-18) H Creatinine 2.8 MG/DL (0.55-1.30) H 3.4 MG/DL (0.55-1.30) H Estimat Glomerular Filtration Rate 19.3 mL/min (>60) 15.4 mL/min (>60) Glucose Level 111 MG/DL (74-106) H 114 MG/DL (74-106) H Calcium Level 8.9 MG/DL (8.5-10.1) 9.1 MG/DL (8.5-10.1) Phosphorus Level 2.5 MG/DL (2.5-4.9) 2.4 MG/DL (2.5-4.9) L Magnesium Level 2.3 MG/DL (1.8-2.4) Total Bilirubin 0.5 MG/DL (0.2-1.0) Aspartate Amino Transf (AST/SGOT) 28 U/L (15-37) Alanine Aminotransferase (ALT/SGPT) 32 U/L (12-78) Alkaline Phosphatase 73 U/L (46-116) Total Protein 6.8 G/DL (6.4-8.2) Albumin 2.6 G/DL (3.4-5.0) L Globulin 4.2 g/dL Albumin/Globulin Ratio 0.6 (1.0-2.7) L Plan Problems: (1) COVID-19 ruled out Assessment & Plan: FINDINGS: Lungs: Left basilar opacity with volume loss, likely atelectasis however a focus of infection could have a similar appearance. Pleural space: No pleural effusion. No pneumothorax. Heart: Unremarkable. No cardiomegaly. Bones/joints: No fracture. Vasculature: Atherosclerotic calcifications. Tubes, lines and devices: Right IJ large bore dialysis catheter terminates within the right atrium. IMPRESSION: Left basilar opacity with volume loss, likely atelectasis however a focus of infection could have a similar appearance. leukocytosis anemia pending test (2) Protein calorie malnutrition Assessment & Plan: DAILY ESTIMATED NEEDS: Needs based on Wounds, HD 57kg 30-35 kcals/kg [id number] total kcals 1.25-1.8 g protein/kg 71-103 g total protein Fluids per MD NUTRITION DIAGNOSIS: * Increased kcal and prot needs r/t wound healing and renal failure as evidenced by w/ multiple pressure injuries, including full thickness and unstageable wounds, refer to MD reports, pt w/ ESRD on HD, GT dep. CURRENT TF:Nepro @ 40ml/hr x 20 hrs ENTERAL NUTRITION RECOMMENDATIONS: Nepro @ 45ml/hr x 22 hrs to provide 990ml, 1782kcal, 80g prot, 720ml free water - Rec to INCREASE RATE AND RUNNING TIME ABOVE to better meet est kcal and pro needs - HOB over 30 degrees/ water flush per MD ADDITIONAL RECOMMENDATIONS: 1) Calibrated bedscale wt 2) Wound Care: add Nephrovite x 1 add Saw 1ptk BID via GT 3) Monitor BGs, consider NISS: BGs consistently mildly elevated 4) Monitor lytes and renal fxn (3) Pressure ulcer (4) Decubitus skin ulcer Assessment & Plan: Pt presented on admission with multiple Pressure injuries. Full thickness Pressure Injury R shoulder(L)2.8cm x (W)2cm. Base of wound is 75 % slough, 25% beefy red granulation. Slough removed with gentle friction. Post removal of slough,small amt slough at base of wound. Small amt sanguineous exudate. Edges flat and adherent to base of wound. Periwound without erythema, induration or fluctuance. Darker skin tone without induration ,fluctuance or tenderness at sacrococcygeal area. Non-blanching erythema and scattered areas of hyperpigmentation noted to R and L gluteal cheeks. Pt denied tenderness when affected areas palpated. Full thickness Pressure injury R hip (L)5.5cm x (W)10.2cm x (D)2.6cm. Base of wound is 75% pink granulation,25% Loose fibrinous slough. Bone is palpable.Edges flat ,pink and adherent to base of wound. Small amt. non-odorous serous exudate. Hypopigmentation noted to perineum and labia majora. Unstageable Pressure Injury R heel(L)3.5cm x (W)3.3cm . Base of wound is 100% necrotic with semidetached with surrounding yellow slough. Edges area dry, black. Periwound is non-blanchable and fluctuant. Maroon discoloration with fluctuance noted to distal/lateral R foot (L)2.8cm x ( W)2.5cm. Resolving pressure injury R Hallux(L)3.5cm x (W)3.3cm.[place] epithelial at base of wound with surrounding dry brown borders. L heel is boggy with non-blanching erythema.Historical scarring from previous wounds noted. Unstageable Pressure Injury L hallux(L)3.5cm x (W)2.8cm. Base of wound has 90% loose necrotic cap,surrounding slough. Loose necrotic cap easily removed with saline moistened gauze. At base of wound is 100% yellow slough, marginal erythema with small area of necrosis noted along borders. Small amt seropurulent non-odorous exudate noted. Stable dry necrosis at L st metatarsal head. Tx.Plan: Cleanse wound R shoulder with Saline. Apply Therahoney. Apply Cavilon Skin Barrier periwound. Cover with Optifoam drsg. Change every 3 days and prn. Cleanse R hip with Saline. Loosely pack with Therahoney impregnated Kerlix. Apply Moisture Barrier Paste periwound. Cover with Optifoam drsg. Change Daily and prn. Apply Moisture Barrier Paste to Sacrum. Cover with Optifoam drsg. Change every 3 days and prn. Apply Betadine to R heel, R hallux,Distal/lateral R foot. Cover with Abd pad and wrap with Kerlix every 3 days and prn. Apply Betadine to L hallux,L 1st metatarsal head,L heel. Cover with Abd pads and wrap with Kerlix every 3 days and prn. Reposition Back to L Side at least every 2hours or as tolerated. Place Pillow between knees. Off-load heels with pillow. APM/TIEN Mattress overlay. (5) Suspected COVID-19 virus infection (6) Anemia Assessment & Plan: transfused prbc h/h stable trend labs Anshul Nava September 14, 2019 10:40
--- NOTE | 2019-09-14 11:00 | General Progress Note ---
Assessment/Plan Assessment/Plan: Assessment #ESRD on HD #Anemia of Chronic Disease #Sepsis 2/2 Klebsiella UTI and VRE Bacteremia #Type II MA demand Ischemia, HTN #Dementia, Peg tube dependent, Functional Quadriplegia and associated associated pressure ulcers Plan All issues at present time are stable; currently pending bed at [facility]. Continue Meropenem and Vancomycin until 10 days course complete. HD as scheduled w/ epogen dosing. Coreg, ASA, Atorvastatin. DVT ppx, supportive measures. Tube Feeds. Appreciate Consultants. Subjective Allergies: Coded Allergies: No Known Allergies (Unverified , 06/24/19) Subjective no distress; mostly non interactive. pending placement Objective Last 24 Hour Vital Signs Date Time Temp Pulse Resp B/P (MAP) Pulse Ox O2 Delivery O2 Flow Rate FiO2 09/14/19 09:07 102 130/60 09/14/19 09:00 Room Air 09/14/19 08:00 102 09/14/19 08:00 98.1 102 22 130/60 (83) 98 09/14/19 04:00 109 09/14/19 04:00 99.0 101 19 116/53 (74) 92 09/14/19 00:00 98.8 103 19 130/61 (84) 96 09/14/19 00:00 104 09/13/19 21:00 Room Air 09/13/19 20:32 97 105/48 09/13/19 20:00 98.5 97 18 105/48 (67) 98 09/13/19 20:00 97 09/13/19 16:00 96.6 102 19 150/67 (94) 96 09/13/19 16:00 88 09/13/19 12:00 98.6 108 20 159/57 (91) 97 09/13/19 12:00 90 Intake and Output 09/13/19 09/14/19 19:00 07:00 Output Total 1200 ml 50 ml Balance -1200 ml -50 ml Output Urine Total 1200 ml 50 ml # Voids 3 Laboratory Tests 09/13/19 11:40: White Blood Count 12.7H, Red Blood Count 3.83L, Hemoglobin 11.1L, Hematocrit 33.0L, Mean Corpuscular Volume 86, Mean Corpuscular Hemoglobin 28.9, Mean Corpuscular Hemoglobin Concent 33.6, Red Cell Distribution Width 14.5, Platelet Count 263, Mean Platelet Volume 6.3L, Neutrophils (%) (Auto) 68.1, Lymphocytes ( %) (Auto) 22.1, Monocytes (%) (Auto) 7.6, Eosinophils (%) (Auto) 1.7, Basophils (%) (Auto) 0.5, Sodium Level 140, Potassium Level 3.8, Chloride Level 100, Carbon Dioxide Level 33H, Anion Gap 7, Blood Urea Nitrogen 37H, Creatinine 2.8H , Estimat Glomerular Filtration Rate 19.3, Glucose Level 111H, Calcium Level 8.9 , Phosphorus Level 2.5, Magnesium Level 2.3 09/14/19 06:15: White Blood Count 13.8H, Red Blood Count 4.01L, Hemoglobin 11.6L, Hematocrit 34.9L, Mean Corpuscular Volume 87, Mean Corpuscular Hemoglobin 28.9, Mean Corpuscular Hemoglobin Concent 33.3, Red Cell Distribution Width 14.4, Platelet Count 285, Mean Platelet Volume 6.4L, Neutrophils (%) (Auto) 67.5, Lymphocytes ( %) (Auto) 24.7, Monocytes (%) (Auto) 5.4, Eosinophils (%) (Auto) 1.9, Basophils (%) (Auto) 0.6, Sodium Level 136, Potassium Level 3.8, Chloride Level 96L, Carbon Dioxide Level 28, Anion Gap 12, Blood Urea Nitrogen 51H, Creatinine 3.4H , Estimat Glomerular Filtration Rate 15.4, Glucose Level 114H, Calcium Level 9.1 , Phosphorus Level 2.4L, Total Bilirubin 0.5, Aspartate Amino Transf (AST/SGOT) 28, Alanine Aminotransferase (ALT/SGPT) 32, Alkaline Phosphatase 73, Total Protein 6.8, Albumin 2.6L, Globulin 4.2, Albumin/Globulin Ratio 0.6L Height (Feet): 5 Height (Inches): 6.00 Weight (Pounds): 119 Objective NAD, sleeping Contractures, Bed bound RRR, S1S2 noted CTA BL No swelling or edema BL feet wrapped in bandages c/d/i Wendy Denny D.O. September 14, 2019 11:00
--- NOTE | 2019-09-14 11:19 | Pulmonology Progress Note ---
Subjective ROS Limited/Unobtainable: Yes Interval Events: None new Constitutional: Reports: fatigue; Denies: fever Gastrointestinal/Abdominal: Denies: nausea, vomiting, diarrhea Psychiatric: Reports: other - Na Skin: Denies: rash Musculoskeletal: Reports: other - NA Allergies: Coded Allergies: No Known Allergies (Unverified , 06/24/19) All Systems: reviewed and negative except above - All 12 point ROS negative Objective Last 24 Hour Vital Signs Date Time Temp Pulse Resp B/P (MAP) Pulse Ox O2 Delivery O2 Flow Rate FiO2 09/14/19 09:07 102 130/60 09/14/19 09:00 Room Air 09/14/19 08:00 102 09/14/19 08:00 98.1 102 22 130/60 (83) 98 09/14/19 04:00 109 09/14/19 04:00 99.0 101 19 116/53 (74) 92 09/14/19 00:00 98.8 103 19 130/61 (84) 96 09/14/19 00:00 104 09/13/19 21:00 Room Air 09/13/19 20:32 97 105/48 09/13/19 20:00 98.5 97 18 105/48 (67) 98 09/13/19 20:00 97 09/13/19 16:00 96.6 102 19 150/67 (94) 96 09/13/19 16:00 88 09/13/19 12:00 98.6 108 20 159/57 (91) 97 09/13/19 12:00 90 Intake and Output 09/13/19 09/14/19 19:00 07:00 Output Total 1200 ml 50 ml Balance -1200 ml -50 ml Output Urine Total 1200 ml 50 ml # Voids 3 General Appearance: no acute distress HEENT: normocephalic Respiratory: chest wall non-tender, lungs clear Cardiovascular: normal peripheral pulses, normal rate Abdomen: normal bowel sounds Laboratory Tests 09/13/19 11:40: White Blood Count 12.7H, Red Blood Count 3.83L, Hemoglobin 11.1L, Hematocrit 33.0L, Mean Corpuscular Volume 86, Mean Corpuscular Hemoglobin 28.9, Mean Corpuscular Hemoglobin Concent 33.6, Red Cell Distribution Width 14.5, Platelet Count 263, Mean Platelet Volume 6.3L, Neutrophils (%) (Auto) 68.1, Lymphocytes ( %) (Auto) 22.1, Monocytes (%) (Auto) 7.6, Eosinophils (%) (Auto) 1.7, Basophils (%) (Auto) 0.5, Sodium Level 140, Potassium Level 3.8, Chloride Level 100, Carbon Dioxide Level 33H, Anion Gap 7, Blood Urea Nitrogen 37H, Creatinine 2.8H , Estimat Glomerular Filtration Rate 19.3, Glucose Level 111H, Calcium Level 8.9 , Phosphorus Level 2.5, Magnesium Level 2.3 09/14/19 06:15: White Blood Count 13.8H, Red Blood Count 4.01L, Hemoglobin 11.6L, Hematocrit 34.9L, Mean Corpuscular Volume 87, Mean Corpuscular Hemoglobin 28.9, Mean Corpuscular Hemoglobin Concent 33.3, Red Cell Distribution Width 14.4, Platelet Count 285, Mean Platelet Volume 6.4L, Neutrophils (%) (Auto) 67.5, Lymphocytes ( %) (Auto) 24.7, Monocytes (%) (Auto) 5.4, Eosinophils (%) (Auto) 1.9, Basophils (%) (Auto) 0.6, Sodium Level 136, Potassium Level 3.8, Chloride Level 96L, Carbon Dioxide Level 28, Anion Gap 12, Blood Urea Nitrogen 51H, Creatinine 3.4H , Estimat Glomerular Filtration Rate 15.4, Glucose Level 114H, Calcium Level 9.1 , Phosphorus Level 2.4L, Total Bilirubin 0.5, Aspartate Amino Transf (AST/SGOT) 28, Alanine Aminotransferase (ALT/SGPT) 32, Alkaline Phosphatase 73, Total Protein 6.8, Albumin 2.6L, Globulin 4.2, Albumin/Globulin Ratio 0.6L Current Medications Medications (Trade) Dose Ordered Sig/Joan Route PRN Reason Start Time Stop Time Status Last Admin Dose Admin Acetaminophen (Tylenol) 650 mg Q4H PRN GT Mild Pain (Pain Scale 1-3) 09/08/19 06:15 10/08/19 03:29 09/13/19 09:04 Atorvastatin Calcium (Lipitor) 10 mg BEDTIME GT 09/08/19 21:00 12/07/19 20:59 09/13/19 20:32 Carvedilol (Coreg) 6.25 mg EVERY 12 HOURS GT 09/08/19 09:00 10/08/19 08:59 09/14/19 09:07 Epoetin Dion (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)) 6,000 unit SUBQ 09/11/19 21:00 12/08/19 20:59 09/13/19 20:33 Gabapentin (Neurontin) 300 mg THREE TIMES A DAY GT 09/08/19 09:00 10/08/19 08:59 09/14/19 09:07 Loperamide HCl (Imodium) 2 mg Q4H PRN GT Diarrhea 09/08/19 06:15 10/08/19 03:44 09/13/19 17:25 Loperamide HCl (Imodium) 2 mg Q6H PRN GT Diarrhea 09/13/19 17:30 10/13/19 17:29 Meropenem 500 mg/ Sodium Chloride 55 ml @ 110 mls/hr Q24H IVPB 09/09/19 16:00 09/18/19 16:59 09/13/19 18:24 Vancomycin HCl (Vanco rx to dose) 1 ea DAILY PRN MISC Per rx protocol 09/09/19 13:00 10/09/19 12:59 Assessment/Plan Assessment/Plan IMPRESSION: 1. UTI. 2. Anemia. 3. ESRD, on dialysis. 4. Initial COVID-19 negative. DISCUSSION: Continue current medications and care. Initial COVID-19 pcr negative Blood transfusion. Empiric antibiotics. Hemodialysis. Saturating well on RA I will follow carefully. Abrahan Samaniego M.D. Abrahan Samaniego MD September 14, 2019 11:19
--- NOTE | 2019-09-14 11:27 | Nephrology Progress Note ---
Assessment/Plan Plan #ESRD on HD TTHS- #anemia of CKD #UTI #dysphagia s/p PEG #multiple pressure wounds #HTN - hold off on HD today - hemoglobin stable - STRICT I&Os - daily weights - replete lytes - prbc transfusion for hemoglobin < 7 - increase epo to 6k TIW - IV iron - monitor CBC - on vancomycin and meropenem - continue coreg 6.25mg BID - replete phos - monitor mag, phos and BMP daily Time spent 45 min > 50% on care coordination and counseling Subjective ROS Limited/Unobtainable: Yes Subjective Labs reviewed UOP 1250 yesterday will hold off on HD today hemoglobin stable Objective Objective Last 24 Hour Vital Signs Date Time Temp Pulse Resp B/P (MAP) Pulse Ox O2 Delivery O2 Flow Rate FiO2 09/14/19 09:07 102 130/60 09/14/19 09:00 Room Air 09/14/19 08:00 102 09/14/19 08:00 98.1 102 22 130/60 (83) 98 09/14/19 04:00 109 09/14/19 04:00 99.0 101 19 116/53 (74) 92 09/14/19 00:00 98.8 103 19 130/61 (84) 96 09/14/19 00:00 104 09/13/19 21:00 Room Air 09/13/19 20:32 97 105/48 09/13/19 20:00 98.5 97 18 105/48 (67) 98 09/13/19 20:00 97 09/13/19 16:00 96.6 102 19 150/67 (94) 96 09/13/19 16:00 88 09/13/19 12:00 98.6 108 20 159/57 (91) 97 09/13/19 12:00 90 Intake and Output 09/13/19 09/14/19 18:59 06:59 Output Total 1200 ml 50 ml Balance -1200 ml -50 ml Output Urine Total 1200 ml 50 ml # Voids 3 Laboratory Tests 09/13/19 11:40: White Blood Count 12.7H, Red Blood Count 3.83L, Hemoglobin 11.1L, Hematocrit 33.0L, Mean Corpuscular Volume 86, Mean Corpuscular Hemoglobin 28.9, Mean Corpuscular Hemoglobin Concent 33.6, Red Cell Distribution Width 14.5, Platelet Count 263, Mean Platelet Volume 6.3L, Neutrophils (%) (Auto) 68.1, Lymphocytes ( %) (Auto) 22.1, Monocytes (%) (Auto) 7.6, Eosinophils (%) (Auto) 1.7, Basophils (%) (Auto) 0.5, Sodium Level 140, Potassium Level 3.8, Chloride Level 100, Carbon Dioxide Level 33H, Anion Gap 7, Blood Urea Nitrogen 37H, Creatinine 2.8H , Estimat Glomerular Filtration Rate 19.3, Glucose Level 111H, Calcium Level 8.9 , Phosphorus Level 2.5, Magnesium Level 2.3 09/14/19 06:15: White Blood Count 13.8H, Red Blood Count 4.01L, Hemoglobin 11.6L, Hematocrit 34.9L, Mean Corpuscular Volume 87, Mean Corpuscular Hemoglobin 28.9, Mean Corpuscular Hemoglobin Concent 33.3, Red Cell Distribution Width 14.4, Platelet Count 285, Mean Platelet Volume 6.4L, Neutrophils (%) (Auto) 67.5, Lymphocytes ( %) (Auto) 24.7, Monocytes (%) (Auto) 5.4, Eosinophils (%) (Auto) 1.9, Basophils (%) (Auto) 0.6, Sodium Level 136, Potassium Level 3.8, Chloride Level 96L, Carbon Dioxide Level 28, Anion Gap 12, Blood Urea Nitrogen 51H, Creatinine 3.4H , Estimat Glomerular Filtration Rate 15.4, Glucose Level 114H, Calcium Level 9.1 , Phosphorus Level 2.4L, Total Bilirubin 0.5, Aspartate Amino Transf (AST/SGOT) 28, Alanine Aminotransferase (ALT/SGPT) 32, Alkaline Phosphatase 73, Total Protein 6.8, Albumin 2.6L, Globulin 4.2, Albumin/Globulin Ratio 0.6L Height (Feet): 5 Height (Inches): 6.00 Weight (Pounds): 119 Objective General Appearance: confused, cachetic, thin Lines, tubes and drains: peripheral HEENT: normocephalic, atraumatic Respiratory/Chest: chest wall non-tender, no respiratory distress Cardiovascular/Chest: normal peripheral pulses Abdomen: feeding tube Extremities: non-pitting, no cyanosis, other - unable to move extremities. Skin Exam: other - pressure ulcers Rory Oconnor M.D. 23, 2020 11:27
[2019-09-14 12:00] VITALS: BP 101/48
--- NOTE | 2019-09-14 14:00 | Cardiac Electrophysiology PN ---
Assessment/Plan Assessment/Plan 1. BNP of more than 6000. On HD . Echo EF 65%. Ruled out for [place] On HD 2. Hypertension. Continue Coreg 6.25 mg b.i.d. and HD 3. Elevated white count and UTI. On Abx per Dr. Rosado. 4. Dysphagia, status post PEG placement. 5. Dementia. 6. ESRD on HD per Dr. Bowen. 7. Severe anemia Hb 6.9, S/P 2 units of PRBC DW RN Subjective Subjective Nonverbal. First Covid on 09/06 was negative. 2nd Covid pending to DC to [facility] Objective Last 24 Hour Vital Signs Date Time Temp Pulse Resp B/P (MAP) Pulse Ox O2 Delivery O2 Flow Rate FiO2 09/14/19 12:00 97 09/14/19 12:00 99.1 95 22 101/48 (65) 99 09/14/19 09:07 102 130/60 09/14/19 09:00 Room Air 09/14/19 08:00 102 09/14/19 08:00 98.1 102 22 130/60 (83) 98 09/14/19 04:00 109 09/14/19 04:00 99.0 101 19 116/53 (74) 92 09/14/19 00:00 98.8 103 19 130/61 (84) 96 09/14/19 00:00 104 09/13/19 21:00 Room Air 09/13/19 20:32 97 105/48 09/13/19 20:00 98.5 97 18 105/48 (67) 98 09/13/19 20:00 97 09/13/19 16:00 96.6 102 19 150/67 (94) 96 09/13/19 16:00 88 Intake and Output 09/13/19 09/14/19 19:00 07:00 Output Total 1200 ml 50 ml Balance -1200 ml -50 ml Output Urine Total 1200 ml 50 ml # Voids 3 Laboratory Tests Test 09/14/19 06:15 White Blood Count 13.8 K/UL (4.8-10.8) H Red Blood Count 4.01 M/UL (4.20-5.40) L Hemoglobin 11.6 G/DL (12.0-16.0) L Hematocrit 34.9 % (37.0-47.0) L Mean Corpuscular Volume 87 FL (80-99) Mean Corpuscular Hemoglobin 28.9 PG (27.0-31.0) Mean Corpuscular Hemoglobin Concent 33.3 G/DL (32.0-36.0) Red Cell Distribution Width 14.4 % (11.6-14.8) Platelet Count 285 K/UL (150-450) Mean Platelet Volume 6.4 FL (6.5-10.1) L Neutrophils (%) (Auto) 67.5 % (45.0-75.0) Lymphocytes (%) (Auto) 24.7 % (20.0-45.0) Monocytes (%) (Auto) 5.4 % (1.0-10.0) Eosinophils (%) (Auto) 1.9 % (0.0-3.0) Basophils (%) (Auto) 0.6 % (0.0-2.0) Sodium Level 136 MMOL/L (136-145) Potassium Level 3.8 MMOL/L (3.5-5.1) Chloride Level 96 MMOL/L (98-107) L Carbon Dioxide Level 28 MMOL/L (21-32) Anion Gap 12 mmol/L (5-15) Blood Urea Nitrogen 51 mg/dL (7-18) H Creatinine 3.4 MG/DL (0.55-1.30) H Estimat Glomerular Filtration Rate 15.4 mL/min (>60) Glucose Level 114 MG/DL (74-106) H Calcium Level 9.1 MG/DL (8.5-10.1) Phosphorus Level 2.4 MG/DL (2.5-4.9) L Total Bilirubin 0.5 MG/DL (0.2-1.0) Aspartate Amino Transf (AST/SGOT) 28 U/L (15-37) Alanine Aminotransferase (ALT/SGPT) 32 U/L (12-78) Alkaline Phosphatase 73 U/L (46-116) Total Protein 6.8 G/DL (6.4-8.2) Albumin 2.6 G/DL (3.4-5.0) L Globulin 4.2 g/dL Albumin/Globulin Ratio 0.6 (1.0-2.7) L Objective HEAD AND NECK: Shows no JVD. LUNGS: Coarse rhonchi. CARDIOVASCULAR: Shows regular S1 and S2 with no gallop. ABDOMEN: Status post G-tube. EXTREMITIES: No pitting edema. Cristopher Osman MD September 14, 2019 14:00
[2019-09-14 16:00] VITALS: BP 125/71
[2019-09-14] MEDS: Meropenem 500mg/NS 55ml IVPB SCH ×2 (17:10)
[2019-09-14 20:00] VITALS: BP 147/71
[2019-09-15] VITALS: BP 131/63
[2019-09-15 04:00] VITALS: BP 127/60
[2019-09-15 08:00] VITALS: BP 140/68
[2019-09-15 08:07] LABS: ANION GAP 10 mmol/L (5-15); BLOOD UREA NITROGEN 64 mg/dL (7-18); CALCIUM 9.2 MG/DL (8.5-10.1); CARBON DIOXIDE 30 MMOL/L (21-32); CHLORIDE 98 MMOL/L (98-107); CREATININE 4.2 MG/DL (0.55-1.30); POTASSIUM 4.1 MMOL/L (3.5-5.1); SODIUM 138 MMOL/L (136-145)
[2019-09-15] MEDS: Carvedilol 6.25mg Tab GT SCH ×2 (10:09→20:53)
--- NOTE | 2019-09-15 10:34 | Hematology/Onc Progress Note ---
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 Otherwise unremarkable pancreas --> as per gi, may need further eval with endsocopy --> with pancreatitis at this time, may be obscuring picture --> reimage in short order, 6 months --> ca19.9 60 but may be elevated due to pancreatitis --> cea of 10--> --> monitor lfts daily # Anemia of chronic disease due to underlying chronic medical issues, multifactorial v Gi bleed --> Anemia workup has been reviewed, ferritin 1300 -->1800 --> No evidence of hemolysis is noted, peripheral smear has been reviewed. --> Hgb goal >7. Transfuse prn. --> Epogen has been started --> IV IRON completed --> Medications have been reviewed --> hgb 6-->7.1-->12-->11.2-->-->11.6 --> 09/07 stool ob negative --> rbc: 2 units 09/10/2019, --> bone marrow biopsy is not indicated given the other more likely causes # Leukocytosis/elevated white blood cell count, unspecified likely related to underlying stress reaction, smoking v more likely infection in this case, uti now --> have reviewed peripheral smear and bandemia/neutrophilia noted --> continue antibiotics if they have been started by ID team --> monitor for resolution --> as per id care, on broad spectrum abx --> wbc 14-->12-->9-->14.9-->12->14 --> per id recs, on: cftx-->bethany/vanc --> blood cx++ x2 # Thrombocytopenia - potential causes multifactorial, evaluate liver and viral etiologies to begin, in this case due to sepsisand pancreatitis --> Hep panel and HIV are both negative --> US abd to evaluate for cirrhosis and hsm --> pleural effusions noted, hsm is neg --> Peripheral smear ordered to evaluate for blasts /schistocytes --> abx and other meds have been reviewed --> ok for ppx if plt >50k w/ either heparin or lovenox # 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 Greatly appreciate consultation. Subjective HEENT: Denies: no symptoms, eye pain, blurred vision, tearing, double vision, ear pain, ear discharge, nose pain, nose congestion, throat pain, throat swelling, mouth pain, mouth swelling, other Cardiovascular: Denies: no symptoms, chest pain, edema, irregular heart rate, lightheadedness, palpitations, syncope, other Respiratory: Denies: no symptoms, cough, shortness of breath, SOB with excertion, SOB at rest, sputum, wheezing, other Genitourinary: Denies: no symptoms, burning, discharge, frequency, flank pain, hematuria, incontinence, pain, urgency, other Neurologic/Psychiatric: Denies: no symptoms, anxiety, depressed, emotional problems, headache, numbness, paresthesia, pre-existing deficit, seizure, tingling, tremors, weakness, other Endocrine: Denies: no symptoms, excessive sweating, flushing, intolerance to cold, intolerance to heat, increased hunger, increased thirst, increased urine, unexplained weight gain, unexplained weight loss, other Hematologic/Lymphatic: Denies: no symptoms, anemia, easy bleeding, easy bruising, adenopathy, other Allergies: Coded Allergies: No Known Allergies (Unverified , 06/24/19) Subjective 09/09 on tele, labs pending, stool ob negative, iv abx 09/10 s/p 2 units rbc, hgb improved to 12, on iv iron, hep b neg. 09/11 hd for today, h/h stable, no acute distress 09/12 nonverbal, no overnight events, bethany/vanc 09/13 le vishal duplex bilat negative, clood cx++ x2, no distress 09/14 labs noted, no bleeding, no night sweats, meds reviewed Objective Objective Current Medications Medications (Trade) Dose Ordered Sig/Joan Route PRN Reason Start Time Stop Time Status Last Admin Dose Admin Acetaminophen (Tylenol) 650 mg Q4H PRN GT Mild Pain (Pain Scale 1-3) 09/08/19 06:15 10/08/19 03:29 09/13/19 09:04 Atorvastatin Calcium (Lipitor) 10 mg BEDTIME GT 09/08/19 21:00 12/07/19 20:59 09/14/19 21:25 Carvedilol (Coreg) 6.25 mg EVERY 12 HOURS GT 09/08/19 09:00 10/08/19 08:59 09/15/19 10:09 Epoetin Dion (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)) 6,000 unit MON- SUBQ 09/11/19 21:00 12/08/19 20:59 09/13/19 20:33 Gabapentin (Neurontin) 300 mg THREE TIMES A DAY GT 09/08/19 09:00 10/08/19 08:59 09/15/19 10:09 Loperamide HCl (Imodium) 2 mg Q4H PRN GT Diarrhea 09/08/19 06:15 10/08/19 03:44 09/13/19 17:25 Loperamide HCl (Imodium) 2 mg Q6H PRN GT Diarrhea 09/13/19 17:30 10/13/19 17:29 Meropenem 500 mg/ Sodium Chloride 55 ml @ 110 mls/hr Q24H IVPB 09/09/19 16:00 09/18/19 16:59 09/14/19 17:10 Vancomycin HCl (Vanco rx to dose) 1 ea DAILY PRN MISC Per rx protocol 09/09/19 13:00 10/09/19 12:59 Last 24 Hour Vital Signs Date Time Temp Pulse Resp B/P (MAP) Pulse Ox O2 Delivery O2 Flow Rate FiO2 09/15/19 10:09 102 140/68 09/15/19 04:00 98.8 103 24 127/60 (82) 91 09/15/19 04:00 104 09/15/19 00:00 98.2 103 22 131/63 (85) 95 09/15/19 00:00 99 09/14/19 21:25 94 147/71 09/14/19 21:00 Room Air 09/14/19 20:00 98.8 94 17 147/71 (96) 96 09/14/19 16:00 102 09/14/19 16:00 98.8 99 20 125/71 (89) 99 09/14/19 12:00 97 09/14/19 12:00 99.1 95 22 101/48 (65) 99 09/14/19 09:07 102 130/60 09/14/19 09:00 Room Air 09/14/19 08:00 102 09/14/19 08:00 98.1 102 22 130/60 (83) 98 09/14/19 04:00 109 09/14/19 04:00 99.0 101 19 116/53 (74) 92 09/14/19 00:00 98.8 103 19 130/61 (84) 96 09/14/19 00:00 104 09/13/19 21:00 Room Air 09/13/19 20:32 97 105/48 09/13/19 20:00 98.5 97 18 105/48 (67) 98 09/13/19 20:00 97 09/13/19 16:00 96.6 102 19 150/67 (94) 96 09/13/19 16:00 88 09/13/19 12:00 98.6 108 20 159/57 (91) 97 09/13/19 12:00 90 Intake and Output 09/14/19 09/15/19 19:00 07:00 Output Total 50 ml 200 ml Balance -50 ml -200 ml Output Urine Total 50 ml 200 ml # Voids 1 # Bowel Movements 1 Labs Test 09/13/19 03:55 09/13/19 11:40 09/14/19 06:15 09/15/19 06:55 Random Vancomycin Level 8.5 ug/mL White Blood Count 12.7 K/UL (4.8-10.8) 13.8 K/UL (4.8-10.8) Red Blood Count 3.83 M/UL (4.20-5.40) 4.01 M/UL (4.20-5.40) Hemoglobin 11.1 G/DL (12.0-16.0) 11.6 G/DL (12.0-16.0) Hematocrit 33.0 % (37.0-47.0) 34.9 % (37.0-47.0) Mean Corpuscular Volume 86 FL (80-99) 87 FL (80-99) Mean Corpuscular Hemoglobin 28.9 PG (27.0-31.0) 28.9 PG (27.0-31.0) Mean Corpuscular Hemoglobin Concent 33.6 G/DL (32.0-36.0) 33.3 G/DL (32.0-36.0) Red Cell Distribution Width 14.5 % (11.6-14.8) 14.4 % (11.6-14.8) Platelet Count 263 K/UL (150-450) 285 K/UL (150-450) Mean Platelet Volume 6.3 FL (6.5-10.1) 6.4 FL (6.5-10.1) Neutrophils (%) (Auto) 68.1 % (45.0-75.0) 67.5 % (45.0-75.0) Lymphocytes (%) (Auto) 22.1 % (20.0-45.0) 24.7 % (20.0-45.0) Monocytes (%) (Auto) 7.6 % (1.0-10.0) 5.4 % (1.0-10.0) Eosinophils (%) (Auto) 1.7 % (0.0-3.0) 1.9 % (0.0-3.0) Basophils (%) (Auto) 0.5 % (0.0-2.0) 0.6 % (0.0-2.0) Sodium Level 140 MMOL/L (136-145) 136 MMOL/L (136-145) 138 MMOL/L (136-145) Potassium Level 3.8 MMOL/L (3.5-5.1) 3.8 MMOL/L (3.5-5.1) 4.1 MMOL/L (3.5-5.1) Chloride Level 100 MMOL/L (98-107) 96 MMOL/L (98-107) 98 MMOL/L (98-107) Carbon Dioxide Level 33 MMOL/L (21-32) 28 MMOL/L (21-32) 30 MMOL/L (21-32) Anion Gap 7 mmol/L (5-15) 12 mmol/L (5-15) 10 mmol/L (5-15) Blood Urea Nitrogen 37 mg/dL (7-18) 51 mg/dL (7-18) 64 mg/dL (7-18) Creatinine 2.8 MG/DL (0.55-1.30) 3.4 MG/DL (0.55-1.30) 4.2 MG/DL (0.55-1.30) Estimat Glomerular Filtration Rate 19.3 mL/min (>60) 15.4 mL/min (>60) 12.0 mL/min (>60) Glucose Level 111 MG/DL (74-106) 114 MG/DL (74-106) 119 MG/DL (74-106) Calcium Level 8.9 MG/DL (8.5-10.1) 9.1 MG/DL (8.5-10.1) 9.2 MG/DL (8.5-10.1) Phosphorus Level 2.5 MG/DL (2.5-4.9) 2.4 MG/DL (2.5-4.9) Magnesium Level 2.3 MG/DL (1.8-2.4) 2.3 MG/DL (1.8-2.4) Total Bilirubin 0.5 MG/DL (0.2-1.0) Aspartate Amino Transf (AST/SGOT) 28 U/L (15-37) Alanine Aminotransferase (ALT/SGPT) 32 U/L (12-78) Alkaline Phosphatase 73 U/L (46-116) Total Protein 6.8 G/DL (6.4-8.2) Albumin 2.6 G/DL (3.4-5.0) Globulin 4.2 g/dL Albumin/Globulin Ratio 0.6 (1.0-2.7) Height (Feet): 5 Height (Inches): 6.00 Weight (Pounds): 119 Objective Physical Exam: Vitals: reviewed General: NAD, groans to pain stimuli HEENT: nc, at Neck: supple Chest: clear breath sounds bilaterally Cardiovascular: RRR, no s3, s4 Abdomen: soft, nontender, nd ++ peg Extremities: no cce, normal range of motion Neuro: confused, nonverbal Skin: other - pressure sores to right side Bola Aldridge MD September 15, 2019 10:34
--- NOTE | 2019-09-15 10:35 | Pulmonology Progress Note ---
Subjective ROS Limited/Unobtainable: Yes Interval Events: None new Constitutional: Reports: fatigue; Denies: fever Gastrointestinal/Abdominal: Denies: nausea, vomiting, diarrhea Psychiatric: Reports: other - Na Skin: Denies: rash Musculoskeletal: Reports: other - NA Allergies: Coded Allergies: No Known Allergies (Unverified , 06/24/19) All Systems: reviewed and negative except above - All 12 point ROS negative Objective Last 24 Hour Vital Signs Date Time Temp Pulse Resp B/P (MAP) Pulse Ox O2 Delivery O2 Flow Rate FiO2 09/15/19 10:09 102 140/68 09/15/19 04:00 98.8 103 24 127/60 (82) 91 09/15/19 04:00 104 09/15/19 00:00 98.2 103 22 131/63 (85) 95 09/15/19 00:00 99 09/14/19 21:25 94 147/71 09/14/19 21:00 Room Air 09/14/19 20:00 98.8 94 17 147/71 (96) 96 09/14/19 16:00 102 09/14/19 16:00 98.8 99 20 125/71 (89) 99 09/14/19 12:00 97 09/14/19 12:00 99.1 95 22 101/48 (65) 99 Intake and Output 09/14/19 09/15/19 19:00 07:00 Output Total 50 ml 200 ml Balance -50 ml -200 ml Output Urine Total 50 ml 200 ml # Voids 1 # Bowel Movements 1 General Appearance: no acute distress HEENT: normocephalic Respiratory: chest wall non-tender, lungs clear Cardiovascular: normal peripheral pulses, normal rate Abdomen: normal bowel sounds Laboratory Tests 09/15/19 06:55: Sodium Level 138, Potassium Level 4.1, Chloride Level 98, Carbon Dioxide Level 30, Anion Gap 10, Blood Urea Nitrogen 64H, Creatinine 4.2H, Estimat Glomerular Filtration Rate 12.0, Glucose Level 119H, Calcium Level 9.2, Magnesium Level 2.3 Current Medications Medications (Trade) Dose Ordered Sig/Joan Route PRN Reason Start Time Stop Time Status Last Admin Dose Admin Acetaminophen (Tylenol) 650 mg Q4H PRN GT Mild Pain (Pain Scale 1-3) 09/08/19 06:15 10/08/19 03:29 09/13/19 09:04 Atorvastatin Calcium (Lipitor) 10 mg BEDTIME GT 09/08/19 21:00 12/07/19 20:59 09/14/19 21:25 Carvedilol (Coreg) 6.25 mg EVERY 12 HOURS GT 09/08/19 09:00 10/08/19 08:59 09/15/19 10:09 Epoetin Dion (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)) 6,000 unit SUBQ 09/11/19 21:00 12/08/19 20:59 09/13/19 20:33 Gabapentin (Neurontin) 300 mg THREE TIMES A DAY GT 09/08/19 09:00 10/08/19 08:59 09/15/19 10:09 Loperamide HCl (Imodium) 2 mg Q4H PRN GT Diarrhea 09/08/19 06:15 10/08/19 03:44 09/13/19 17:25 Loperamide HCl (Imodium) 2 mg Q6H PRN GT Diarrhea 09/13/19 17:30 10/13/19 17:29 Meropenem 500 mg/ Sodium Chloride 55 ml @ 110 mls/hr Q24H IVPB 09/09/19 16:00 09/18/19 16:59 09/14/19 17:10 Vancomycin HCl (Vanco rx to dose) 1 ea DAILY PRN MISC Per rx protocol 09/09/19 13:00 10/09/19 12:59 Assessment/Plan Assessment/Plan IMPRESSION: 1. UTI. 2. Anemia. 3. ESRD, on dialysis. 4. Initial COVID-19 negative. DISCUSSION: Continue current medications and care. Initial COVID-19 pcr negative Blood transfusion. Empiric antibiotics. Hemodialysis. Saturating well on RA I will follow carefully. Ross Nina Omar Syed MD September 15, 2019 10:35
--- NOTE | 2019-09-15 11:53 | Nephrology Progress Note ---
Assessment/Plan Plan #ESRD on HD TTHS- #anemia of CKD #UTI #dysphagia s/p PEG #multiple pressure wounds #HTN - plan for HD tomorrow - hemoglobin stable - STRICT I&Os - daily weights - replete lytes - prbc transfusion for hemoglobin < 7 - increased epo to 6k TIW - IV iron - monitor CBC - on vancomycin and meropenem - continue coreg 6.25mg BID - replete phos - monitor mag, phos and BMP daily Time spent 45 min > 50% on care coordination and counseling Subjective ROS Limited/Unobtainable: Yes Subjective Labs reviewed plan for HD tomorrow hemoglobin stable Objective Objective Last 24 Hour Vital Signs Date Time Temp Pulse Resp B/P (MAP) Pulse Ox O2 Delivery O2 Flow Rate FiO2 09/15/19 10:09 102 140/68 09/15/19 04:00 98.8 103 24 127/60 (82) 91 09/15/19 04:00 104 09/15/19 00:00 98.2 103 22 131/63 (85) 95 09/15/19 00:00 99 09/14/19 21:25 94 147/71 09/14/19 21:00 Room Air 09/14/19 20:00 98.8 94 17 147/71 (96) 96 09/14/19 16:00 102 09/14/19 16:00 98.8 99 20 125/71 (89) 99 09/14/19 12:00 97 09/14/19 12:00 99.1 95 22 101/48 (65) 99 Intake and Output 09/14/19 09/15/19 19:00 07:00 Output Total 50 ml 200 ml Balance -50 ml -200 ml Output Urine Total 50 ml 200 ml # Voids 1 # Bowel Movements 1 Laboratory Tests 09/15/19 06:55: Sodium Level 138, Potassium Level 4.1, Chloride Level 98, Carbon Dioxide Level 30, Anion Gap 10, Blood Urea Nitrogen 64H, Creatinine 4.2H, Estimat Glomerular Filtration Rate 12.0, Glucose Level 119H, Calcium Level 9.2, Magnesium Level 2.3 Height (Feet): 5 Height (Inches): 6.00 Weight (Pounds): 119 Objective General Appearance: confused, cachetic, thin Lines, tubes and drains: peripheral HEENT: normocephalic, atraumatic Respiratory/Chest: chest wall non-tender, no respiratory distress Cardiovascular/Chest: normal peripheral pulses Abdomen: feeding tube Extremities: non-pitting, no cyanosis, other - unable to move extremities. Skin Exam: other - pressure ulcers Rory Oconnor M.D. September 15, 2019 11:53
[2019-09-15 12:00] VITALS: BP 102/57
--- NOTE | 2019-09-15 12:42 | Internal Med Progress Note ---
Subjective Date of Service: September 15, 2019 Physician Name Wendy Denny Attending Physician Meera Frederick MD Current Medications Medications (Trade) Dose Ordered Sig/Joan Route PRN Reason Start Time Stop Time Status Last Admin Dose Admin Acetaminophen (Tylenol) 650 mg Q4H PRN GT Mild Pain (Pain Scale 1-3) 09/08/19 06:15 10/08/19 03:29 09/13/19 09:04 Atorvastatin Calcium (Lipitor) 10 mg BEDTIME GT 09/08/19 21:00 12/07/19 20:59 09/14/19 21:25 Carvedilol (Coreg) 6.25 mg EVERY 12 HOURS GT 09/08/19 09:00 10/08/19 08:59 09/15/19 10:09 Epoetin Dion (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)) 6,000 unit MON- SUBQ 09/11/19 21:00 12/08/19 20:59 09/13/19 20:33 Furosemide (Lasix) 40 mg ONCE IV 09/15/19 12:00 09/15/19 13:00 Gabapentin (Neurontin) 300 mg THREE TIMES A DAY GT 09/08/19 09:00 10/08/19 08:59 09/15/19 10:09 Loperamide HCl (Imodium) 2 mg Q4H PRN GT Diarrhea 09/08/19 06:15 10/08/19 03:44 09/13/19 17:25 Loperamide HCl (Imodium) 2 mg Q6H PRN GT Diarrhea 09/13/19 17:30 10/13/19 17:29 Meropenem 500 mg/ Sodium Chloride 55 ml @ 110 mls/hr Q24H IVPB 09/09/19 16:00 09/18/19 16:59 09/14/19 17:10 Morphine Sulfate (Morphine Sulfate) 1 mg Q4H PRN IVP For Pain 09/15/19 11:30 09/22/19 11:29 Vancomycin HCl (Vanco rx to dose) 1 ea DAILY PRN MISC Per rx protocol 09/09/19 13:00 10/09/19 12:59 Allergies: Coded Allergies: No Known Allergies (Unverified , 06/24/19) ROS Limited/Unobtainable: Yes Subjective Patient seems to have some pain today; will order morphine prn. Await placement , pending todays labs. Vitals noted Objective Last Vital Signs Date Time Temp Pulse Resp B/P (MAP) Pulse Ox O2 Delivery O2 Flow Rate FiO2 09/15/19 12:00 97.5 94 22 102/57 (72) 93 09/15/19 09:00 Room Air 09/08/19 01:53 2.0 General Appearance: mild distress EENT: PERRL/EOMI Cardiovascular: normal rate, regular rhythm Respiratory/Chest: lungs clear, normal breath sounds, no respiratory distress Abdomen: non tender, soft Extremities: other - Diffuse contractures Neurologic: alert Skin: warm/dry, other - Feet w/ bilateral wound bandages Laboratory Tests Test 09/15/19 06:55 Sodium Level 138 MMOL/L (136-145) Potassium Level 4.1 MMOL/L (3.5-5.1) Chloride Level 98 MMOL/L (98-107) Carbon Dioxide Level 30 MMOL/L (21-32) Anion Gap 10 mmol/L (5-15) Blood Urea Nitrogen 64 mg/dL (7-18) H Creatinine 4.2 MG/DL (0.55-1.30) H Estimat Glomerular Filtration Rate 12.0 mL/min (>60) Glucose Level 119 MG/DL (74-106) H Calcium Level 9.2 MG/DL (8.5-10.1) Magnesium Level 2.3 MG/DL (1.8-2.4) Intake and Output 09/14/19 09/15/19 19:00 07:00 Output Total 50 ml 200 ml Balance -50 ml -200 ml Output Urine Total 50 ml 200 ml # Voids 1 # Bowel Movements 1 Assessment/Plan Assessment/Plan Assessment #ESRD on HD #Anemia of Chronic Disease #Sepsis 2/2 Klebsiella UTI and VRE Bacteremia #Type II PA demand Ischemia, HTN #Dementia, Peg tube dependent, Functional Quadriplegia and associated associated pressure ulcers Plan All issues at present time are stable; currently pending bed at [facility]. Continue Meropenem and Vancomycin until 10 days course complete. HD as scheduled w/ epogen dosing. Coreg, ASA, Atorvastatin. DVT ppx, supportive measures. Tube Feeds. [facility]. 09/15: pain meds ordered , await labs, monitor CBC Wendy Denny D.O. September 15, 2019 12:42
[2019-09-15] MEDS: Morphine Sulfate 2mg/ml Inj(IV/IM USE ONLY) IVP PRN (12:54)
--- NOTE | 2019-09-15 14:22 | Surgery Progress Note ---
Surgery Progress Note Subjective Symptoms: improved Additional Comments pending covid swab x 2 for placement Objective Last 24 Hour Vital Signs Date Time Temp Pulse Resp B/P (MAP) Pulse Ox O2 Delivery O2 Flow Rate FiO2 09/15/19 12:00 97.5 94 22 102/57 (72) 93 09/15/19 12:00 94 09/15/19 10:09 102 140/68 09/15/19 09:00 Room Air 09/15/19 08:00 97.6 102 22 140/68 (92) 95 09/15/19 08:00 117 09/15/19 04:00 98.8 103 24 127/60 (82) 91 09/15/19 04:00 104 09/15/19 00:00 98.2 103 22 131/63 (85) 95 09/15/19 00:00 99 09/14/19 21:25 94 147/71 09/14/19 21:00 Room Air 09/14/19 20:00 98.8 94 17 147/71 (96) 96 09/14/19 16:00 102 09/14/19 16:00 98.8 99 20 125/71 (89) 99 I&O Intake and Output 09/14/19 09/15/19 18:59 06:59 Output Total 50 ml 200 ml Balance -50 ml -200 ml Output Urine Total 50 ml 200 ml # Voids 1 # Bowel Movements 1 Cardiovascular: RSR Respiratory: decreased breath sounds Abdomen: soft, non-tender, present bowel sounds Extremities: no cyanosis Laboratory Tests Test 09/15/19 06:55 Sodium Level 138 MMOL/L (136-145) Potassium Level 4.1 MMOL/L (3.5-5.1) Chloride Level 98 MMOL/L (98-107) Carbon Dioxide Level 30 MMOL/L (21-32) Anion Gap 10 mmol/L (5-15) Blood Urea Nitrogen 64 mg/dL (7-18) H Creatinine 4.2 MG/DL (0.55-1.30) H Estimat Glomerular Filtration Rate 12.0 mL/min (>60) Glucose Level 119 MG/DL (74-106) H Calcium Level 9.2 MG/DL (8.5-10.1) Magnesium Level 2.3 MG/DL (1.8-2.4) Plan Problems: (1) COVID-19 ruled out Assessment & Plan: FINDINGS: Lungs: Left basilar opacity with volume loss, likely atelectasis however a focus of infection could have a similar appearance. Pleural space: No pleural effusion. No pneumothorax. Heart: Unremarkable. No cardiomegaly. Bones/joints: No fracture. Vasculature: Atherosclerotic calcifications. Tubes, lines and devices: Right IJ large bore dialysis catheter terminates within the right atrium. IMPRESSION: Left basilar opacity with volume loss, likely atelectasis however a focus of infection could have a similar appearance. leukocytosis anemia pending test (2) Protein calorie malnutrition Assessment & Plan: DAILY ESTIMATED NEEDS: Needs based on Wounds, HD 57kg 30-35 kcals/kg 4980-3804 total kcals 1.25-1.8 g protein/kg 71-103 g total protein Fluids per MD NUTRITION DIAGNOSIS: * Increased kcal and prot needs r/t wound healing and renal failure as evidenced by w/ multiple pressure injuries, including full thickness and unstageable wounds, refer to MD reports, pt w/ ESRD on HD, GT dep. CURRENT TF:Nepro @ 40ml/hr x 20 hrs ENTERAL NUTRITION RECOMMENDATIONS: Nepro @ 45ml/hr x 22 hrs to provide 990ml, 1782kcal, 80g prot, 720ml free water - Rec to INCREASE RATE AND RUNNING TIME ABOVE to better meet est kcal and pro needs - HOB over 30 degrees/ water flush per MD ADDITIONAL RECOMMENDATIONS: 1) Calibrated bedscale wt 2) Wound Care: add Nephrovite x 1 add Saw 1ptk BID via GT 3) Monitor BGs, consider NISS: BGs consistently mildly elevated 4) Monitor lytes and renal fxn (3) Pressure ulcer (4) Decubitus skin ulcer Assessment & Plan: Pt presented on admission with multiple Pressure injuries. Full thickness Pressure Injury R shoulder(L)2.8cm x (W)2cm. Base of wound is 75 % slough, 25% beefy red granulation. Slough removed with gentle friction. Post removal of slough,small amt slough at base of wound. Small amt sanguineous exudate. Edges flat and adherent to base of wound. Periwound without erythema, induration or fluctuance. Darker skin tone without induration ,fluctuance or tenderness at sacrococcygeal area. Non-blanching erythema and scattered areas of hyperpigmentation noted to R and L gluteal cheeks. Pt denied tenderness when affected areas palpated. Full thickness Pressure injury R hip (L)5.5cm x (W)10.2cm x (D)2.6cm. Base of wound is 75% pink granulation,25% Loose fibrinous slough. Bone is palpable.Edges flat ,pink and adherent to base of wound. Small amt. non-odorous serous exudate. Hypopigmentation noted to perineum and labia majora. Unstageable Pressure Injury R heel(L)3.5cm x (W)3.3cm . Base of wound is 100% necrotic with semidetached with surrounding yellow slough. Edges area dry, black. Periwound is non-blanchable and fluctuant. Maroon discoloration with fluctuance noted to distal/lateral R foot (L)2.8cm x ( W)2.5cm. Resolving pressure injury R Hallux(L)3.5cm x (W)3.3cm.Luxora epithelial at base of wound with surrounding dry brown borders. L heel is boggy with non-blanching erythema.Historical scarring from previous wounds noted. Unstageable Pressure Injury L hallux(L)3.5cm x (W)2.8cm. Base of wound has 90% loose necrotic cap,surrounding slough. Loose necrotic cap easily removed with saline moistened gauze. At base of wound is 100% yellow slough, marginal erythema with small area of necrosis noted along borders. Small amt seropurulent non-odorous exudate noted. Stable dry necrosis at L st metatarsal head. Tx.Plan: Cleanse wound R shoulder with Saline. Apply Therahoney. Apply Cavilon Skin Barrier periwound. Cover with Optifoam drsg. Change every 3 days and prn. Cleanse R hip with Saline. Loosely pack with Therahoney impregnated Kerlix. Apply Moisture Barrier Paste periwound. Cover with Optifoam drsg. Change Daily and prn. Apply Moisture Barrier Paste to Sacrum. Cover with Optifoam drsg. Change every 3 days and prn. Apply Betadine to R heel, R hallux,Distal/lateral R foot. Cover with Abd pad and wrap with Kerlix every 3 days and prn. Apply Betadine to L hallux,L 1st metatarsal head,L heel. Cover with Abd pads and wrap with Kerlix every 3 days and prn. Reposition Back to L Side at least every 2hours or as tolerated. Place Pillow between knees. Off-load heels with pillow. APM/TIEN Mattress overlay. (5) Suspected COVID-19 virus infection (6) Anemia Assessment & Plan: transfused prbc h/h stable trend labs Anshul Nava September 15, 2019 14:22
--- NOTE | 2019-09-15 15:03 | Infectious Diseases Prog Note ---
Assessment/Plan Assessment/Plan ASSESSMENT AND PLAN: 1. 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 She has history of hemodialysis, end-stage renal disease, chronic kidney disease. 3. The patient has history of hypertension. 4. Anemia. 5. Elevated creatinine. 6. Hypertension treatment per primary care team. 7. Wound care per Surgery. 8. Dysphagia, G-tube 9. No known drug allergies. 10. Social history is negative. 11. Family History is noncontributory. 12. MAR was noted. 13. Case discussed with RN. 14. Continue treatment per primary consultants. 15. Orders were noted and entered. Subjective Constitutional: Reports: fatigue; Denies: fever HEENT: Denies: congestion Respiratory: Denies: shortness of breath Cardiovascular: Denies: chest pain Gastrointestinal/Abdominal: Denies: nausea, vomiting, diarrhea Genitourinary: Reports: other - + hargroev Neurologic: Reports: weakness, other - NA Psychiatric: Reports: other - NA Skin: Denies: rash Hematologic: Denies: bleeding Musculoskeletal: Reports: other - NA Allergies: Coded Allergies: No Known Allergies (Unverified , 06/24/19) Objective Vital Signs Last 24 Hour Vital Signs Date Time Temp Pulse Resp B/P (MAP) Pulse Ox O2 Delivery O2 Flow Rate FiO2 09/15/19 12:00 97.5 94 22 102/57 (72) 93 09/15/19 12:00 94 09/15/19 10:09 102 140/68 09/15/19 09:00 Room Air 09/15/19 08:00 97.6 102 22 140/68 (92) 95 09/15/19 08:00 117 09/15/19 04:00 98.8 103 24 127/60 (82) 91 09/15/19 04:00 104 09/15/19 00:00 98.2 103 22 131/63 (85) 95 09/15/19 00:00 99 09/14/19 21:25 94 147/71 09/14/19 21:00 Room Air 09/14/19 20:00 98.8 94 17 147/71 (96) 96 09/14/19 16:00 102 09/14/19 16:00 98.8 99 20 125/71 (89) 99 Height (Feet): 5 Height (Inches): 6.00 Weight (Pounds): 119 General Appearance: no acute distress HEENT: normocephalic, atraumatic, anicteric, mucous membranes moist Respiratory/Chest: lungs clear, normal breath sounds, no respiratory distress, no accessory muscle use Cardiovascular: normal rate, regular rhythm, no gallop/murmur, no JVD Abdomen: normal bowel sounds, soft, non tender, no organomegaly, non distended Genitourinary: other - no hargrove Extremities: no cyanosis Skin: no rash 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 Comparison films: 09/07/2019. FINDINGS: Right central venous catheter remains in place. Vascularity is normal. Mild left basilar hazy densities unchanged. Cardiac and mediastinal silhouette are within normal limits. There may be a trace left effusion. The bony thorax appear unremarkable. IMPRESSION: NO ACUTE CARDIOPULMONARY DISEASE. Microbiology Date/Time Source Procedure Growth Status 09/12/19 16:23 Nasopharynx Coronavirus COVID-19 PCR ([facility]) - Final Complete Laboratory Tests Test 09/15/19 06:55 Sodium Level 138 MMOL/L (136-145) Potassium Level 4.1 MMOL/L (3.5-5.1) Chloride Level 98 MMOL/L (98-107) Carbon Dioxide Level 30 MMOL/L (21-32) Anion Gap 10 mmol/L (5-15) Blood Urea Nitrogen 64 mg/dL (7-18) H Creatinine 4.2 MG/DL (0.55-1.30) H Estimat Glomerular Filtration Rate 12.0 mL/min (>60) Glucose Level 119 MG/DL (74-106) H Calcium Level 9.2 MG/DL (8.5-10.1) Magnesium Level 2.3 MG/DL (1.8-2.4) Current Medications Medications (Trade) Dose Ordered Sig/Joan Route PRN Reason Start Time Stop Time Status Last Admin Dose Admin Acetaminophen (Tylenol) 650 mg Q4H PRN GT Mild Pain (Pain Scale 1-3) 09/08/19 06:15 10/08/19 03:29 09/13/19 09:04 Atorvastatin Calcium (Lipitor) 10 mg BEDTIME GT 09/08/19 21:00 12/07/19 20:59 09/14/19 21:25 Carvedilol (Coreg) 6.25 mg EVERY 12 HOURS GT 09/08/19 09:00 10/08/19 08:59 09/15/19 10:09 Epoetin Dion (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)) 6,000 unit MON-MON-MON SUBQ 09/11/19 21:00 12/08/19 20:59 09/13/19 20:33 Gabapentin (Neurontin) 300 mg THREE TIMES A DAY GT 09/08/19 09:00 10/08/19 08:59 09/15/19 12:51 Loperamide HCl (Imodium) 2 mg Q4H PRN GT Diarrhea 09/08/19 06:15 10/08/19 03:44 09/13/19 17:25 Loperamide HCl (Imodium) 2 mg Q6H PRN GT Diarrhea 09/13/19 17:30 10/13/19 17:29 Meropenem 500 mg/ Sodium Chloride 55 ml @ 110 mls/hr Q24H IVPB 09/09/19 16:00 09/18/19 16:59 09/14/19 17:10 Morphine Sulfate (Morphine Sulfate) 1 mg Q4H PRN IVP For Pain 09/15/19 11:30 09/22/19 11:29 09/15/19 12:54 Vancomycin HCl (Vanco rx to dose) 1 ea DAILY PRN MISC Per rx protocol 09/09/19 13:00 10/09/19 12:59 Ana Rosado MD September 15, 2019 15:03
[2019-09-15 16:00] VITALS: BP 131/54
--- NOTE | 2019-09-15 16:34 | Cardiac Electrophysiology PN ---
Assessment/Plan Assessment/Plan 1. BNP of more than 6000. On HD . Echo EF 65%. Ruled out for DC On HD 2. Hypertension. Continue Coreg 6.25 mg b.i.d. and HD 3. Elevated white count and UTI. On Abx per Dr. Rosado. 4. Dysphagia, status post PEG placement. 5. Dementia. 6. ESRD on HD per Dr. Bowen. 7. Severe anemia Hb 6.9, S/P 2 units of PRBC DW RN Subjective Subjective Nonverbal. First Covid on 09/06 was negative. 2nd Covid results form 09/11 still pending to DC to [facility] Objective Last 24 Hour Vital Signs Date Time Temp Pulse Resp B/P (MAP) Pulse Ox O2 Delivery O2 Flow Rate FiO2 09/15/19 12:00 97.5 94 22 102/57 (72) 93 09/15/19 12:00 94 09/15/19 10:09 102 140/68 09/15/19 09:00 Room Air 09/15/19 08:00 97.6 102 22 140/68 (92) 95 09/15/19 08:00 117 09/15/19 04:00 98.8 103 24 127/60 (82) 91 09/15/19 04:00 104 09/15/19 00:00 98.2 103 22 131/63 (85) 95 09/15/19 00:00 99 09/14/19 21:25 94 147/71 09/14/19 21:00 Room Air 09/14/19 20:00 98.8 94 17 147/71 (96) 96 Intake and Output 09/14/19 09/15/19 19:00 07:00 Output Total 50 ml 200 ml Balance -50 ml -200 ml Output Urine Total 50 ml 200 ml # Voids 1 # Bowel Movements 1 Laboratory Tests Test 09/15/19 06:55 Sodium Level 138 MMOL/L (136-145) Potassium Level 4.1 MMOL/L (3.5-5.1) Chloride Level 98 MMOL/L (98-107) Carbon Dioxide Level 30 MMOL/L (21-32) Anion Gap 10 mmol/L (5-15) Blood Urea Nitrogen 64 mg/dL (7-18) H Creatinine 4.2 MG/DL (0.55-1.30) H Estimat Glomerular Filtration Rate 12.0 mL/min (>60) Glucose Level 119 MG/DL (74-106) H Calcium Level 9.2 MG/DL (8.5-10.1) Magnesium Level 2.3 MG/DL (1.8-2.4) Objective HEAD AND NECK: Shows no JVD. LUNGS: Coarse rhonchi. CARDIOVASCULAR: Shows regular S1 and S2 with no gallop. ABDOMEN: Status post G-tube. EXTREMITIES: No pitting edema. Cristopher Osman MD September 15, 2019 16:34
[2019-09-15] MEDS: Meropenem 500mg/NS 55ml IVPB SCH ×2 (16:37)
[2019-09-15 20:00] VITALS: BP 136/64
[2019-09-15] MEDS: Acetaminophen 650mg/20.3ml GT PRN (20:52)
[2019-09-16] VITALS: BP 133/70
[2019-09-16 04:00] VITALS: BP 122/72
--- NOTE | 2019-09-16 07:15 | General Progress Note ---
Assessment/Plan Assessment/Plan: Assessment/Plan Status: stable Assessment/Plan: 1. End-stage renal disease, on hemodialysis. 2. Anemia iron def 3. Dysphagia, status post G-tube placement. 4. Pneumonia. 5. Pancreatic cyst. 6. Hypertension. 7. elevated CEA of 10 8. CAD 9. UTI chart from prior admissions reviewed iv iron repeat stool ob>> neg transfuse to keep HGB above 7 GTF 40 cc HD per nephrology will fu Subjective ROS Limited/Unobtainable: No Allergies: Coded Allergies: No Known Allergies (Unverified , 06/24/19) Objective Last 24 Hour Vital Signs Date Time Temp Pulse Resp B/P (MAP) Pulse Ox O2 Delivery O2 Flow Rate FiO2 09/16/19 04:00 98.6 95 18 122/72 (89) 93 09/16/19 04:00 97 09/16/19 00:00 92 09/16/19 00:00 98.2 98 18 133/70 (91) 94 09/15/19 21:00 Room Air 09/15/19 20:53 102 136/62 09/15/19 20:00 98.4 95 19 136/64 (88) 94 09/15/19 20:00 96 09/15/19 16:00 97.7 94 20 131/54 (79) 93 09/15/19 16:00 95 09/15/19 12:00 97.5 94 22 102/57 (72) 93 09/15/19 12:00 94 09/15/19 10:09 102 140/68 09/15/19 09:00 Room Air 09/15/19 08:00 97.6 102 22 140/68 (92) 95 09/15/19 08:00 117 Intake and Output 09/15/19 09/16/19 19:00 07:00 Intake Total 140 ml Output Total 300 ml Balance -160 ml Free Water 100 ml Tube Feeding 40 ml Output Urine Total 300 ml # Bowel Movements 2 Laboratory Tests 09/16/19 07:03: White Blood Count [Pending], Red Blood Count [Pending], Hemoglobin [Pending], Hematocrit [Pending], Mean Corpuscular Volume [Pending], Mean Corpuscular Hemoglobin [Pending], Mean Corpuscular Hemoglobin Concent [Pending], Red Cell Distribution Width [Pending], Platelet Count [Pending], Mean Platelet Volume [ Pending], Neutrophils (%) (Auto) [Pending], Lymphocytes (%) (Auto) [Pending], Monocytes (%) (Auto) [Pending], Eosinophils (%) (Auto) [Pending], Basophils (%) (Auto) [Pending], Sodium Level [Pending], Potassium Level [Pending], Chloride Level [Pending], Carbon Dioxide Level [Pending], Blood Urea Nitrogen [Pending], Creatinine [Pending], Estimat Glomerular Filtration Rate [Pending], Glucose Level [Pending], Calcium Level [Pending], Phosphorus Level [Pending], Magnesium Level [Pending], Total Bilirubin [Pending], Aspartate Amino Transf (AST/SGOT) [ Pending], Alanine Aminotransferase (ALT/SGPT) [Pending], Alkaline Phosphatase [ Pending], Total Protein [Pending], Albumin [Pending], Globulin [Pending] Height (Feet): 5 Height (Inches): 6.00 Weight (Pounds): 119 General Appearance: no apparent distress EENT: normal ENT inspection Neck: normal alignment Cardiovascular: normal rate Respiratory/Chest: decreased breath sounds Abdomen: soft, hypoactive bowel sounds Extremities: non-tender Jun Mena MD September 16, 2019 07:15
[2019-09-16 07:37] LABS: BASOPHILS % (AUTO) 0.6 % (0.0-2.0); HEMATOCRIT 34.9 % (37.0-47.0); HEMOGLOBIN 11.9 G/DL (12.0-16.0); LYMPHOCYTES % (AUTO) 19.9 % (20.0-45.0); MEAN CORPUSCULAR VOLUME 86 FL (80-99); NEUTROPHILS % (AUTO) 69.5 % (45.0-75.0); PLATELET COUNT 311 K/UL (150-450); RED BLOOD COUNT 4.04 M/UL (4.20-5.40); RED CELL DISTRIBUTION WIDTH 13.4 % (11.6-14.8); WHITE BLOOD COUNT 12.2 K/UL (4.8-10.8)
[2019-09-16 07:51] LABS: ALANINE AMINOTRANSFERASE 29 U/L (12-78); ALBUMIN 2.4 G/DL (3.4-5.0); ALBUMIN/GLOBULIN RATIO 0.6 (1.0-2.7); ALKALINE PHOSPHATASE 75 U/L (46-116); ANION GAP 10 mmol/L (5-15); ASPARTATE AMINO TRANSFERASE 28 U/L (15-37); BILIRUBIN,TOTAL 0.4 MG/DL (0.2-1.0); BLOOD UREA NITROGEN 81 mg/dL (7-18); CALCIUM 9.5 MG/DL (8.5-10.1); CARBON DIOXIDE 28 MMOL/L (21-32); CHLORIDE 98 MMOL/L (98-107); CREATININE 4.8 MG/DL (0.55-1.30); PHOSPHORUS 4.5 MG/DL (2.5-4.9); POTASSIUM 4.1 MMOL/L (3.5-5.1); SODIUM 136 MMOL/L (136-145)
[2019-09-16 08:00] VITALS: BP 127/85
[2019-09-16] MEDS: Carvedilol 6.25mg Tab GT SCH ×2 (09:00→20:29)
--- NOTE | 2019-09-16 09:50 | Nephrology Progress Note ---
Assessment/Plan Plan #ESRD on HD TT- #anemia of CKD #UTI #dysphagia s/p PEG #multiple pressure wounds #HTN - plan for HD today - hemoglobin stable - STRICT I&Os - daily weights - replete lytes - prbc transfusion for hemoglobin < 7 - increased epo to 6k TIW - IV iron - monitor CBC - on vancomycin and meropenem - continue coreg 6.25mg BID - replete phos - monitor mag, phos and BMP daily Time spent 45 min > 50% on care coordination and counseling Subjective ROS Limited/Unobtainable: Yes Subjective Labs reviewed plan for HD today hemoglobin stable Objective Objective Last 24 Hour Vital Signs Date Time Temp Pulse Resp B/P (MAP) Pulse Ox O2 Delivery O2 Flow Rate FiO2 09/16/19 08:00 97.7 109 19 127/85 (99) 98 09/16/19 04:00 98.6 95 18 122/72 (89) 93 09/16/19 04:00 97 09/16/19 00:00 92 09/16/19 00:00 98.2 98 18 133/70 (91) 94 09/15/19 21:00 Room Air 09/15/19 20:53 102 136/62 09/15/19 20:00 98.4 95 19 136/64 (88) 94 09/15/19 20:00 96 09/15/19 16:00 97.7 94 20 131/54 (79) 93 09/15/19 16:00 95 09/15/19 12:00 97.5 94 22 102/57 (72) 93 09/15/19 12:00 94 09/15/19 10:09 102 140/68 Intake and Output 09/15/19 09/16/19 19:00 07:00 Intake Total 140 ml Output Total 300 ml Balance -160 ml Free Water 100 ml Tube Feeding 40 ml Output Urine Total 300 ml # Bowel Movements 2 Laboratory Tests 09/16/19 07:03: White Blood Count 12.2H, Red Blood Count 4.04L, Hemoglobin 11.9L, Hematocrit 34.9L, Mean Corpuscular Volume 86, Mean Corpuscular Hemoglobin 29.4, Mean Corpuscular Hemoglobin Concent 34.0, Red Cell Distribution Width 13.4, Platelet Count 311, Mean Platelet Volume 6.5, Neutrophils (%) (Auto) 69.5, Lymphocytes (% ) (Auto) 19.9L, Monocytes (%) (Auto) 7.0, Eosinophils (%) (Auto) 3.0, Basophils (%) (Auto) 0.6, Sodium Level 136, Potassium Level 4.1, Chloride Level 98, Carbon Dioxide Level 28, Anion Gap 10, Blood Urea Nitrogen 81H, Creatinine 4.8H , Estimat Glomerular Filtration Rate 10.3, Glucose Level 141H, Calcium Level 9.5 , Phosphorus Level 4.5, Magnesium Level 2.4, Total Bilirubin 0.4, Aspartate Amino Transf (AST/SGOT) 28, Alanine Aminotransferase (ALT/SGPT) 29, Alkaline Phosphatase 75, Total Protein 6.6, Albumin 2.4L, Globulin 4.2, Albumin/Globulin Ratio 0.6L Height (Feet): 5 Height (Inches): 6.00 Weight (Pounds): 119 Objective General Appearance: confused, cachetic, thin Lines, tubes and drains: peripheral HEENT: normocephalic, atraumatic Respiratory/Chest: chest wall non-tender, no respiratory distress Cardiovascular/Chest: normal peripheral pulses Abdomen: feeding tube Extremities: non-pitting, no cyanosis, other - unable to move extremities. Skin Exam: other - pressure ulcers Rory Oconnor M.D. September 16, 2019 09:50
--- NOTE | 2019-09-16 09:52 | Hematology/Onc Progress Note ---
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 Otherwise unremarkable pancreas --> as per gi, may need further eval with endsocopy --> with pancreatitis at this time, may be obscuring picture --> reimage in short order, 6 months --> ca19.9 60 but may be elevated due to pancreatitis --> cea of 10--> --> monitor lfts daily # Anemia of chronic disease due to underlying chronic medical issues, multifactorial v Gi bleed --> Anemia workup has been reviewed, ferritin 1300 -->1800 --> No evidence of hemolysis is noted, peripheral smear has been reviewed. --> Hgb goal >7. Transfuse prn. --> Epogen has been started --> IV IRON completed --> Medications have been reviewed --> hgb 6-->7.1-->12-->11.2-->-->11.6 -->11.9 --> 09/07 stool ob negative --> rbc: 2 units 09/10/2019, --> bone marrow biopsy is not indicated given the other more likely causes # Leukocytosis/elevated white blood cell count, unspecified likely related to underlying stress reaction, smoking v more likely infection in this case, uti now --> have reviewed peripheral smear and bandemia/neutrophilia noted --> continue antibiotics if they have been started by ID team --> monitor for resolution --> as per id care, on broad spectrum abx --> wbc 14-->12-->9-->14.9-->12->14 --> per id recs, on: cftx-->bethany/vanc --> blood cx++ x2 # Thrombocytopenia - potential causes multifactorial, evaluate liver and viral etiologies to begin, in this case due to sepsisand pancreatitis --> Hep panel and HIV are both negative --> US abd to evaluate for cirrhosis and hsm --> pleural effusions noted, hsm is neg --> Peripheral smear ordered to evaluate for blasts /schistocytes --> abx and other meds have been reviewed --> ok for ppx if plt >50k w/ either heparin or lovenox # 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 Greatly appreciate consultation. Subjective HEENT: Denies: no symptoms, eye pain, blurred vision, tearing, double vision, ear pain, ear discharge, nose pain, nose congestion, throat pain, throat swelling, mouth pain, mouth swelling, other Cardiovascular: Denies: no symptoms, chest pain, edema, irregular heart rate, lightheadedness, palpitations, syncope, other Respiratory: Denies: no symptoms, cough, shortness of breath, SOB with excertion, SOB at rest, sputum, wheezing, other Genitourinary: Denies: no symptoms, burning, discharge, frequency, flank pain, hematuria, incontinence, pain, urgency, other Neurologic/Psychiatric: Denies: no symptoms, anxiety, depressed, emotional problems, headache, numbness, paresthesia, pre-existing deficit, seizure, tingling, tremors, weakness, other Endocrine: Denies: no symptoms, excessive sweating, flushing, intolerance to cold, intolerance to heat, increased hunger, increased thirst, increased urine, unexplained weight gain, unexplained weight loss, other Allergies: Coded Allergies: No Known Allergies (Unverified , 06/24/19) Subjective 09/09 on tele, labs pending, stool ob negative, iv abx 09/10 s/p 2 units rbc, hgb improved to 12, on iv iron, hep b neg. 09/11 hd for today, h/h stable, no acute distress 09/12 nonverbal, no overnight events, bethany/vanc 09/13 le vishal duplex bilat negative, clood cx++ x2, no distress 09/14 labs noted, no bleeding, no night sweats, meds reviewed 09/15 hd as per renal, labs noted, no bleeding, no fc wbc 12k Objective Objective Current Medications Medications (Trade) Dose Ordered Sig/Joan Route PRN Reason Start Time Stop Time Status Last Admin Dose Admin Acetaminophen (Tylenol) 650 mg Q4H PRN GT Mild Pain (Pain Scale 1-3) 09/08/19 06:15 10/08/19 03:29 09/15/19 20:52 Atorvastatin Calcium (Lipitor) 10 mg BEDTIME GT 09/08/19 21:00 12/07/19 20:59 09/15/19 20:53 Carvedilol (Coreg) 6.25 mg EVERY 12 HOURS GT 09/08/19 09:00 10/08/19 08:59 09/15/19 20:53 Epoetin Dion (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)) 6,000 unit MON- SUBQ 09/11/19 21:00 12/08/19 20:59 09/13/19 20:33 Gabapentin (Neurontin) 300 mg THREE TIMES A DAY GT 09/08/19 09:00 10/08/19 08:59 09/15/19 18:05 Loperamide HCl (Imodium) 2 mg Q4H PRN GT Diarrhea 09/08/19 06:15 10/08/19 03:44 09/13/19 17:25 Loperamide HCl (Imodium) 2 mg Q6H PRN GT Diarrhea 09/13/19 17:30 10/13/19 17:29 Meropenem 500 mg/ Sodium Chloride 55 ml @ 110 mls/hr Q24H IVPB 09/09/19 16:00 09/18/19 16:59 09/15/19 16:37 Morphine Sulfate (Morphine Sulfate) 1 mg Q4H PRN IVP For Pain 09/15/19 11:30 09/22/19 11:29 09/15/19 12:54 Vancomycin HCl (Vanco rx to dose) 1 ea DAILY PRN MISC Per rx protocol 09/09/19 13:00 10/09/19 12:59 Last 24 Hour Vital Signs Date Time Temp Pulse Resp B/P (MAP) Pulse Ox O2 Delivery O2 Flow Rate FiO2 09/16/19 08:00 97.7 109 19 127/85 (99) 98 09/16/19 04:00 98.6 95 18 122/72 (89) 93 09/16/19 04:00 97 09/16/19 00:00 92 09/16/19 00:00 98.2 98 18 133/70 (91) 94 09/15/19 21:00 Room Air 09/15/19 20:53 102 136/62 09/15/19 20:00 98.4 95 19 136/64 (88) 94 09/15/19 20:00 96 09/15/19 16:00 97.7 94 20 131/54 (79) 93 09/15/19 16:00 95 09/15/19 12:00 97.5 94 22 102/57 (72) 93 09/15/19 12:00 94 09/15/19 10:09 102 140/68 09/15/19 09:00 Room Air 09/15/19 08:00 97.6 102 22 140/68 (92) 95 09/15/19 08:00 117 09/15/19 04:00 98.8 103 24 127/60 (82) 91 09/15/19 04:00 104 09/15/19 00:00 98.2 103 22 131/63 (85) 95 09/15/19 00:00 99 09/14/19 21:25 94 147/71 09/14/19 21:00 Room Air 09/14/19 20:00 98.8 94 17 147/71 (96) 96 09/14/19 16:00 102 09/14/19 16:00 98.8 99 20 125/71 (89) 99 09/14/19 12:00 97 09/14/19 12:00 99.1 95 22 101/48 (65) 99 Intake and Output 09/15/19 09/16/19 19:00 07:00 Intake Total 140 ml Output Total 300 ml Balance -160 ml Free Water 100 ml Tube Feeding 40 ml Output Urine Total 300 ml # Bowel Movements 2 Labs Test 09/13/19 11:40 09/14/19 06:15 09/15/19 06:55 09/16/19 07:03 White Blood Count 12.7 K/UL (4.8-10.8) 13.8 K/UL (4.8-10.8) 12.2 K/UL (4.8-10.8) Red Blood Count 3.83 M/UL (4.20-5.40) 4.01 M/UL (4.20-5.40) 4.04 M/UL (4.20-5.40) Hemoglobin 11.1 G/DL (12.0-16.0) 11.6 G/DL (12.0-16.0) 11.9 G/DL (12.0-16.0) Hematocrit 33.0 % (37.0-47.0) 34.9 % (37.0-47.0) 34.9 % (37.0-47.0) Mean Corpuscular Volume 86 FL (80-99) 87 FL (80-99) 86 FL (80-99) Mean Corpuscular Hemoglobin 28.9 PG (27.0-31.0) 28.9 PG (27.0-31.0) 29.4 PG (27.0-31.0) Mean Corpuscular Hemoglobin Concent 33.6 G/DL (32.0-36.0) 33.3 G/DL (32.0-36.0) 34.0 G/DL (32.0-36.0) Red Cell Distribution Width 14.5 % (11.6-14.8) 14.4 % (11.6-14.8) 13.4 % (11.6-14.8) Platelet Count 263 K/UL (150-450) 285 K/UL (150-450) 311 K/UL (150-450) Mean Platelet Volume 6.3 FL (6.5-10.1) 6.4 FL (6.5-10.1) 6.5 FL (6.5-10.1) Neutrophils (%) (Auto) 68.1 % (45.0-75.0) 67.5 % (45.0-75.0) 69.5 % (45.0-75.0) Lymphocytes (%) (Auto) 22.1 % (20.0-45.0) 24.7 % (20.0-45.0) 19.9 % (20.0-45.0) Monocytes (%) (Auto) 7.6 % (1.0-10.0) 5.4 % (1.0-10.0) 7.0 % (1.0-10.0) Eosinophils (%) (Auto) 1.7 % (0.0-3.0) 1.9 % (0.0-3.0) 3.0 % (0.0-3.0) Basophils (%) (Auto) 0.5 % (0.0-2.0) 0.6 % (0.0-2.0) 0.6 % (0.0-2.0) Sodium Level 140 MMOL/L (136-145) 136 MMOL/L (136-145) 138 MMOL/L (136-145) 136 MMOL/L (136-145) Potassium Level 3.8 MMOL/L (3.5-5.1) 3.8 MMOL/L (3.5-5.1) 4.1 MMOL/L (3.5-5.1) 4.1 MMOL/L (3.5-5.1) Chloride Level 100 MMOL/L (98-107) 96 MMOL/L (98-107) 98 MMOL/L (98-107) 98 MMOL/L (98-107) Carbon Dioxide Level 33 MMOL/L (21-32) 28 MMOL/L (21-32) 30 MMOL/L (21-32) 28 MMOL/L (21-32) Anion Gap 7 mmol/L (5-15) 12 mmol/L (5-15) 10 mmol/L (5-15) 10 mmol/L (5-15) Blood Urea Nitrogen 37 mg/dL (7-18) 51 mg/dL (7-18) 64 mg/dL (7-18) 81 mg/dL (7-18) Creatinine 2.8 MG/DL (0.55-1.30) 3.4 MG/DL (0.55-1.30) 4.2 MG/DL (0.55-1.30) 4.8 MG/DL (0.55-1.30) Estimat Glomerular Filtration Rate 19.3 mL/min (>60) 15.4 mL/min (>60) 12.0 mL/min (>60) 10.3 mL/min (>60) Glucose Level 111 MG/DL (74-106) 114 MG/DL (74-106) 119 MG/DL (74-106) 141 MG/DL (74-106) Calcium Level 8.9 MG/DL (8.5-10.1) 9.1 MG/DL (8.5-10.1) 9.2 MG/DL (8.5-10.1) 9.5 MG/DL (8.5-10.1) Phosphorus Level 2.5 MG/DL (2.5-4.9) 2.4 MG/DL (2.5-4.9) 4.5 MG/DL (2.5-4.9) Magnesium Level 2.3 MG/DL (1.8-2.4) 2.3 MG/DL (1.8-2.4) 2.4 MG/DL (1.8-2.4) Total Bilirubin 0.5 MG/DL (0.2-1.0) 0.4 MG/DL (0.2-1.0) Aspartate Amino Transf (AST/SGOT) 28 U/L (15-37) 28 U/L (15-37) Alanine Aminotransferase (ALT/SGPT) 32 U/L (12-78) 29 U/L (12-78) Alkaline Phosphatase 73 U/L (46-116) 75 U/L (46-116) Total Protein 6.8 G/DL (6.4-8.2) 6.6 G/DL (6.4-8.2) Albumin 2.6 G/DL (3.4-5.0) 2.4 G/DL (3.4-5.0) Globulin 4.2 g/dL 4.2 g/dL Albumin/Globulin Ratio 0.6 (1.0-2.7) 0.6 (1.0-2.7) Height (Feet): 5 Height (Inches): 6.00 Weight (Pounds): 119 Objective Physical Exam: Vitals: reviewed General: NAD, groans to pain stimuli HEENT: nc, at Neck: supple Chest: clear breath sounds bilaterally Cardiovascular: RRR, no s3, s4 Abdomen: soft, nontender, nd ++ peg Extremities: no cce, normal range of motion Neuro: confused, nonverbal Skin: other - pressure sores to right side Bola Aldridge MD September 16, 2019 09:52
--- NOTE | 2019-09-16 10:23 | Pulmonology Progress Note ---
Subjective ROS Limited/Unobtainable: Yes Interval Events: None new Constitutional: Reports: fatigue; Denies: fever Gastrointestinal/Abdominal: Denies: nausea, vomiting, diarrhea Psychiatric: Reports: other - NA Skin: Denies: rash Musculoskeletal: Reports: other - NA Allergies: Coded Allergies: No Known Allergies (Unverified , 06/24/19) All Systems: reviewed and negative except above - All 12 point ROS negative Objective Last 24 Hour Vital Signs Date Time Temp Pulse Resp B/P (MAP) Pulse Ox O2 Delivery O2 Flow Rate FiO2 09/16/19 08:00 97.7 109 19 127/85 (99) 98 09/16/19 04:00 98.6 95 18 122/72 (89) 93 09/16/19 04:00 97 09/16/19 00:00 92 09/16/19 00:00 98.2 98 18 133/70 (91) 94 09/15/19 21:00 Room Air 09/15/19 20:53 102 136/62 09/15/19 20:00 98.4 95 19 136/64 (88) 94 09/15/19 20:00 96 09/15/19 16:00 97.7 94 20 131/54 (79) 93 09/15/19 16:00 95 09/15/19 12:00 97.5 94 22 102/57 (72) 93 09/15/19 12:00 94 Intake and Output 09/15/19 09/16/19 19:00 07:00 Intake Total 140 ml Output Total 300 ml Balance -160 ml Free Water 100 ml Tube Feeding 40 ml Output Urine Total 300 ml # Bowel Movements 2 General Appearance: no acute distress HEENT: normocephalic Respiratory: chest wall non-tender, lungs clear Cardiovascular: normal peripheral pulses, normal rate Abdomen: normal bowel sounds Laboratory Tests 09/16/19 07:03: White Blood Count 12.2H, Red Blood Count 4.04L, Hemoglobin 11.9L, Hematocrit 34.9L, Mean Corpuscular Volume 86, Mean Corpuscular Hemoglobin 29.4, Mean Corpuscular Hemoglobin Concent 34.0, Red Cell Distribution Width 13.4, Platelet Count 311, Mean Platelet Volume 6.5, Neutrophils (%) (Auto) 69.5, Lymphocytes (% ) (Auto) 19.9L, Monocytes (%) (Auto) 7.0, Eosinophils (%) (Auto) 3.0, Basophils (%) (Auto) 0.6, Sodium Level 136, Potassium Level 4.1, Chloride Level 98, Carbon Dioxide Level 28, Anion Gap 10, Blood Urea Nitrogen 81H, Creatinine 4.8H , Estimat Glomerular Filtration Rate 10.3, Glucose Level 141H, Calcium Level 9.5 , Phosphorus Level 4.5, Magnesium Level 2.4, Total Bilirubin 0.4, Aspartate Amino Transf (AST/SGOT) 28, Alanine Aminotransferase (ALT/SGPT) 29, Alkaline Phosphatase 75, Total Protein 6.6, Albumin 2.4L, Globulin 4.2, Albumin/Globulin Ratio 0.6L Current Medications Medications (Trade) Dose Ordered Sig/Joan Route PRN Reason Start Time Stop Time Status Last Admin Dose Admin Acetaminophen (Tylenol) 650 mg Q4H PRN GT Mild Pain (Pain Scale 1-3) 09/08/19 06:15 10/08/19 03:29 09/15/19 20:52 Atorvastatin Calcium (Lipitor) 10 mg BEDTIME GT 09/08/19 21:00 12/07/19 20:59 09/15/19 20:53 Carvedilol (Coreg) 6.25 mg EVERY 12 HOURS GT 09/08/19 09:00 10/08/19 08:59 09/15/19 20:53 Enoxaparin Sodium (Lovenox) 40 mg DAILY SUBQ 09/17/19 09:00 12/16/19 08:59 UNV Epoetin Dion (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)) 6,000 unit SUBQ 09/11/19 21:00 12/08/19 20:59 09/13/19 20:33 Gabapentin (Neurontin) 300 mg THREE TIMES A DAY GT 09/08/19 09:00 10/08/19 08:59 09/15/19 18:05 Loperamide HCl (Imodium) 2 mg Q4H PRN GT Diarrhea 09/08/19 06:15 10/08/19 03:44 09/13/19 17:25 Loperamide HCl (Imodium) 2 mg Q6H PRN GT Diarrhea 09/13/19 17:30 10/13/19 17:29 Meropenem 500 mg/ Sodium Chloride 55 ml @ 110 mls/hr Q24H IVPB 09/09/19 16:00 09/18/19 16:59 09/15/19 16:37 Morphine Sulfate (Morphine Sulfate) 1 mg Q4H PRN IVP For Pain 09/15/19 11:30 09/22/19 11:29 09/15/19 12:54 Vancomycin HCl (Vanco rx to dose) 1 ea DAILY PRN MISC Per rx protocol 09/09/19 13:00 10/09/19 12:59 Assessment/Plan Assessment/Plan IMPRESSION: 1. UTI. 2. Anemia. 3. ESRD, on dialysis. 4. Initial COVID-19 negative. DISCUSSION: Continue current medications and care. Initial COVID-19 pcr negative Blood transfusion. Empiric antibiotics. Hemodialysis. Saturating well on RA I will follow carefully. Ross Nina Omar Syed MD September 16, 2019 10:23
--- NOTE | 2019-09-16 11:08 | Surgery Progress Note ---
Surgery Progress Note Subjective Symptoms: improved, tolerating diet, passing flatus Objective Last 24 Hour Vital Signs Date Time Temp Pulse Resp B/P (MAP) Pulse Ox O2 Delivery O2 Flow Rate FiO2 09/16/19 09:00 Room Air 09/16/19 08:00 113 09/16/19 08:00 97.7 109 19 127/85 (99) 98 09/16/19 04:00 98.6 95 18 122/72 (89) 93 09/16/19 04:00 97 09/16/19 00:00 92 09/16/19 00:00 98.2 98 18 133/70 (91) 94 09/15/19 21:00 Room Air 09/15/19 20:53 102 136/62 09/15/19 20:00 98.4 95 19 136/64 (88) 94 09/15/19 20:00 96 09/15/19 16:00 97.7 94 20 131/54 (79) 93 09/15/19 16:00 95 09/15/19 12:00 97.5 94 22 102/57 (72) 93 09/15/19 12:00 94 I&O Intake and Output 09/15/19 09/16/19 19:00 07:00 Intake Total 140 ml Output Total 300 ml Balance -160 ml Free Water 100 ml Tube Feeding 40 ml Output Urine Total 300 ml # Bowel Movements 2 Dressing: saturated Wound: other Drains: other Cardiovascular: RSR Respiratory: decreased breath sounds Abdomen: soft, non-tender, present bowel sounds Extremities: no cyanosis Laboratory Tests Test 09/16/19 07:03 White Blood Count 12.2 K/UL (4.8-10.8) H Red Blood Count 4.04 M/UL (4.20-5.40) L Hemoglobin 11.9 G/DL (12.0-16.0) L Hematocrit 34.9 % (37.0-47.0) L Mean Corpuscular Volume 86 FL (80-99) Mean Corpuscular Hemoglobin 29.4 PG (27.0-31.0) Mean Corpuscular Hemoglobin Concent 34.0 G/DL (32.0-36.0) Red Cell Distribution Width 13.4 % (11.6-14.8) Platelet Count 311 K/UL (150-450) Mean Platelet Volume 6.5 FL (6.5-10.1) Neutrophils (%) (Auto) 69.5 % (45.0-75.0) Lymphocytes (%) (Auto) 19.9 % (20.0-45.0) L Monocytes (%) (Auto) 7.0 % (1.0-10.0) Eosinophils (%) (Auto) 3.0 % (0.0-3.0) Basophils (%) (Auto) 0.6 % (0.0-2.0) Sodium Level 136 MMOL/L (136-145) Potassium Level 4.1 MMOL/L (3.5-5.1) Chloride Level 98 MMOL/L (98-107) Carbon Dioxide Level 28 MMOL/L (21-32) Anion Gap 10 mmol/L (5-15) Blood Urea Nitrogen 81 mg/dL (7-18) H Creatinine 4.8 MG/DL (0.55-1.30) H Estimat Glomerular Filtration Rate 10.3 mL/min (>60) Glucose Level 141 MG/DL (74-106) H Calcium Level 9.5 MG/DL (8.5-10.1) Phosphorus Level 4.5 MG/DL (2.5-4.9) Magnesium Level 2.4 MG/DL (1.8-2.4) Total Bilirubin 0.4 MG/DL (0.2-1.0) Aspartate Amino Transf (AST/SGOT) 28 U/L (15-37) Alanine Aminotransferase (ALT/SGPT) 29 U/L (12-78) Alkaline Phosphatase 75 U/L (46-116) Total Protein 6.6 G/DL (6.4-8.2) Albumin 2.4 G/DL (3.4-5.0) L Globulin 4.2 g/dL Albumin/Globulin Ratio 0.6 (1.0-2.7) L Plan Problems: (1) COVID-19 ruled out Assessment & Plan: FINDINGS: Lungs: Left basilar opacity with volume loss, likely atelectasis however a focus of infection could have a similar appearance. Pleural space: No pleural effusion. No pneumothorax. Heart: Unremarkable. No cardiomegaly. Bones/joints: No fracture. Vasculature: Atherosclerotic calcifications. Tubes, lines and devices: Right IJ large bore dialysis catheter terminates within the right atrium. IMPRESSION: Left basilar opacity with volume loss, likely atelectasis however a focus of infection could have a similar appearance. leukocytosis anemia pending test (2) Protein calorie malnutrition Assessment & Plan: DAILY ESTIMATED NEEDS: Needs based on Wounds, HD 57kg 30-35 kcals/kg 1379-6992 total kcals 1.25-1.8 g protein/kg 71-103 g total protein Fluids per MD NUTRITION DIAGNOSIS: * Increased kcal and prot needs r/t wound healing and renal failure as evidenced by w/ multiple pressure injuries, including full thickness and unstageable wounds, refer to MD reports, pt w/ ESRD on HD, GT dep. CURRENT TF:Nepro @ 40ml/hr x 20 hrs ENTERAL NUTRITION RECOMMENDATIONS: Nepro @ 45ml/hr x 22 hrs to provide 990ml, 1782kcal, 80g prot, 720ml free water - Rec to INCREASE RATE AND RUNNING TIME ABOVE to better meet est kcal and pro needs - HOB over 30 degrees/ water flush per MD ADDITIONAL RECOMMENDATIONS: 1) Calibrated bedscale wt 2) Wound Care: add Nephrovite x 1 add Saw 1ptk BID via GT 3) Monitor BGs, consider NISS: BGs consistently mildly elevated 4) Monitor lytes and renal fxn (3) Pressure ulcer (4) Decubitus skin ulcer Assessment & Plan: Pt presented on admission with multiple Pressure injuries. Full thickness Pressure Injury R shoulder(L)2.8cm x (W)2cm. Base of wound is 75 % slough, 25% beefy red granulation. Slough removed with gentle friction. Post removal of slough,small amt slough at base of wound. Small amt sanguineous exudate. Edges flat and adherent to base of wound. Periwound without erythema, induration or fluctuance. Darker skin tone without induration ,fluctuance or tenderness at sacrococcygeal area. Non-blanching erythema and scattered areas of hyperpigmentation noted to R and L gluteal cheeks. Pt denied tenderness when affected areas palpated. Full thickness Pressure injury R hip (L)5.5cm x (W)10.2cm x (D)2.6cm. Base of wound is 75% pink granulation,25% Loose fibrinous slough. Bone is palpable.Edges flat ,pink and adherent to base of wound. Small amt. non-odorous serous exudate. Hypopigmentation noted to perineum and labia majora. Unstageable Pressure Injury R heel(L)3.5cm x (W)3.3cm . Base of wound is 100% necrotic with semidetached with surrounding yellow slough. Edges area dry, black. Periwound is non-blanchable and fluctuant. Maroon discoloration with fluctuance noted to distal/lateral R foot (L)2.8cm x ( W)2.5cm. Resolving pressure injury R Hallux(L)3.5cm x (W)3.3cm.Pilger epithelial at base of wound with surrounding dry brown borders. L heel is boggy with non-blanching erythema.Historical scarring from previous wounds noted. Unstageable Pressure Injury L hallux(L)3.5cm x (W)2.8cm. Base of wound has 90% loose necrotic cap,surrounding slough. Loose necrotic cap easily removed with saline moistened gauze. At base of wound is 100% yellow slough, marginal erythema with small area of necrosis noted along borders. Small amt seropurulent non-odorous exudate noted. Stable dry necrosis at L st metatarsal head. Tx.Plan: Cleanse wound R shoulder with Saline. Apply Therahoney. Apply Cavilon Skin Barrier periwound. Cover with Optifoam drsg. Change every 3 days and prn. Cleanse R hip with Saline. Loosely pack with Therahoney impregnated Kerlix. Apply Moisture Barrier Paste periwound. Cover with Optifoam drsg. Change Daily and prn. Apply Moisture Barrier Paste to Sacrum. Cover with Optifoam drsg. Change every 3 days and prn. Apply Betadine to R heel, R hallux,Distal/lateral R foot. Cover with Abd pad and wrap with Kerlix every 3 days and prn. Apply Betadine to L hallux,L 1st metatarsal head,L heel. Cover with Abd pads and wrap with Kerlix every 3 days and prn. Reposition Back to L Side at least every 2hours or as tolerated. Place Pillow between knees. Off-load heels with pillow. APM/TIEN Mattress overlay. (5) Suspected COVID-19 virus infection (6) Anemia Assessment & Plan: transfused prbc h/h stable trend labs Benyamini,Anshul September 16, 2019 11:08
[2019-09-16 12:17] VITALS: BP 128/78
--- NOTE | 2019-09-16 13:31 | Cardiac Electrophysiology PN ---
Assessment/Plan Assessment/Plan 1. BNP of more than 6000. On HD . Echo EF 65%. Ruled out for IA On HD 2. Hypertension. Continue Coreg 6.25 mg b.i.d. and HD 3. Elevated white count and UTI. On Abx per Dr. Rosado. 4. Dysphagia, status post PEG placement. 5. Dementia. 6. ESRD on HD per Dr. Bowen. 7. Severe anemia Hb 6.9, S/P 2 units of PRBC DW RN DC to [facility] today after HD Subjective Subjective Nonverbal. First Covid on 09/06 was negative. DC to [facility] today after HD Objective Last 24 Hour Vital Signs Date Time Temp Pulse Resp B/P (MAP) Pulse Ox O2 Delivery O2 Flow Rate FiO2 09/16/19 12:17 96.8 103 20 128/78 (95) 96 09/16/19 09:00 Room Air 09/16/19 08:00 113 09/16/19 08:00 97.7 109 19 127/85 (99) 98 09/16/19 04:00 98.6 95 18 122/72 (89) 93 09/16/19 04:00 97 09/16/19 00:00 92 09/16/19 00:00 98.2 98 18 133/70 (91) 94 09/15/19 21:00 Room Air 09/15/19 20:53 102 136/62 09/15/19 20:00 98.4 95 19 136/64 (88) 94 09/15/19 20:00 96 09/15/19 16:00 97.7 94 20 131/54 (79) 93 09/15/19 16:00 95 Intake and Output 09/15/19 09/16/19 19:00 07:00 Intake Total 140 ml Output Total 300 ml Balance -160 ml Free Water 100 ml Tube Feeding 40 ml Output Urine Total 300 ml # Bowel Movements 2 Laboratory Tests Test 09/16/19 07:03 White Blood Count 12.2 K/UL (4.8-10.8) H Red Blood Count 4.04 M/UL (4.20-5.40) L Hemoglobin 11.9 G/DL (12.0-16.0) L Hematocrit 34.9 % (37.0-47.0) L Mean Corpuscular Volume 86 FL (80-99) Mean Corpuscular Hemoglobin 29.4 PG (27.0-31.0) Mean Corpuscular Hemoglobin Concent 34.0 G/DL (32.0-36.0) Red Cell Distribution Width 13.4 % (11.6-14.8) Platelet Count 311 K/UL (150-450) Mean Platelet Volume 6.5 FL (6.5-10.1) Neutrophils (%) (Auto) 69.5 % (45.0-75.0) Lymphocytes (%) (Auto) 19.9 % (20.0-45.0) L Monocytes (%) (Auto) 7.0 % (1.0-10.0) Eosinophils (%) (Auto) 3.0 % (0.0-3.0) Basophils (%) (Auto) 0.6 % (0.0-2.0) Sodium Level 136 MMOL/L (136-145) Potassium Level 4.1 MMOL/L (3.5-5.1) Chloride Level 98 MMOL/L (98-107) Carbon Dioxide Level 28 MMOL/L (21-32) Anion Gap 10 mmol/L (5-15) Blood Urea Nitrogen 81 mg/dL (7-18) H Creatinine 4.8 MG/DL (0.55-1.30) H Estimat Glomerular Filtration Rate 10.3 mL/min (>60) Glucose Level 141 MG/DL (74-106) H Calcium Level 9.5 MG/DL (8.5-10.1) Phosphorus Level 4.5 MG/DL (2.5-4.9) Magnesium Level 2.4 MG/DL (1.8-2.4) Total Bilirubin 0.4 MG/DL (0.2-1.0) Aspartate Amino Transf (AST/SGOT) 28 U/L (15-37) Alanine Aminotransferase (ALT/SGPT) 29 U/L (12-78) Alkaline Phosphatase 75 U/L (46-116) Total Protein 6.6 G/DL (6.4-8.2) Albumin 2.4 G/DL (3.4-5.0) L Globulin 4.2 g/dL Albumin/Globulin Ratio 0.6 (1.0-2.7) L Objective HEAD AND NECK: Shows no JVD. LUNGS: Coarse rhonchi. CARDIOVASCULAR: Shows regular S1 and S2 with no gallop. ABDOMEN: Status post G-tube. EXTREMITIES: No pitting edema. Cristopher Osman MD September 16, 2019 13:31
--- NOTE | 2019-09-16 14:31 | Internal Med Progress Note ---
Subjective Date of Service: September 16, 2019 Physician Name Wendy Denny Attending Physician Meera Frederick MD Current Medications Medications (Trade) Dose Ordered Sig/Joan Route PRN Reason Start Time Stop Time Status Last Admin Dose Admin Acetaminophen (Tylenol) 650 mg Q4H PRN GT Mild Pain (Pain Scale 1-3) 09/08/19 06:15 10/08/19 03:29 09/15/19 20:52 Atorvastatin Calcium (Lipitor) 10 mg BEDTIME GT 09/08/19 21:00 12/07/19 20:59 09/15/19 20:53 Carvedilol (Coreg) 6.25 mg EVERY 12 HOURS GT 09/08/19 09:00 10/08/19 08:59 09/15/19 20:53 Enoxaparin Sodium (Lovenox) 40 mg DAILY SUBQ 09/17/19 09:00 12/16/19 08:59 UNV Epoetin Dion (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)) 6,000 unit MON-MON-MON SUBQ 09/11/19 21:00 12/08/19 20:59 09/13/19 20:33 Gabapentin (Neurontin) 300 mg THREE TIMES A DAY GT 09/08/19 09:00 10/08/19 08:59 09/16/19 13:00 Loperamide HCl (Imodium) 2 mg Q4H PRN GT Diarrhea 09/08/19 06:15 10/08/19 03:44 09/13/19 17:25 Loperamide HCl (Imodium) 2 mg Q6H PRN GT Diarrhea 09/13/19 17:30 10/13/19 17:29 Meropenem 500 mg/ Sodium Chloride 55 ml @ 110 mls/hr Q24H IVPB 09/09/19 16:00 09/18/19 16:59 09/15/19 16:37 Morphine Sulfate (Morphine Sulfate) 1 mg Q4H PRN IVP For Pain 09/15/19 11:30 09/22/19 11:29 09/15/19 12:54 Vancomycin HCl (Vanco rx to dose) 1 ea DAILY PRN MISC Per rx protocol 09/09/19 13:00 10/09/19 12:59 Allergies: Coded Allergies: No Known Allergies (Unverified , 3/2/20) Subjective No acute events. Getting HD . Vitals stable. Pending placement. Objective Last Vital Signs Date Time Temp Pulse Resp B/P (MAP) Pulse Ox O2 Delivery O2 Flow Rate FiO2 09/16/19 12:17 96.8 103 20 128/78 (95) 96 09/16/19 09:00 Room Air 09/08/19 01:53 2.0 Laboratory Tests Test 09/16/19 07:03 White Blood Count 12.2 K/UL (4.8-10.8) H Red Blood Count 4.04 M/UL (4.20-5.40) L Hemoglobin 11.9 G/DL (12.0-16.0) L Hematocrit 34.9 % (37.0-47.0) L Mean Corpuscular Volume 86 FL (80-99) Mean Corpuscular Hemoglobin 29.4 PG (27.0-31.0) Mean Corpuscular Hemoglobin Concent 34.0 G/DL (32.0-36.0) Red Cell Distribution Width 13.4 % (11.6-14.8) Platelet Count 311 K/UL (150-450) Mean Platelet Volume 6.5 FL (6.5-10.1) Neutrophils (%) (Auto) 69.5 % (45.0-75.0) Lymphocytes (%) (Auto) 19.9 % (20.0-45.0) L Monocytes (%) (Auto) 7.0 % (1.0-10.0) Eosinophils (%) (Auto) 3.0 % (0.0-3.0) Basophils (%) (Auto) 0.6 % (0.0-2.0) Sodium Level 136 MMOL/L (136-145) Potassium Level 4.1 MMOL/L (3.5-5.1) Chloride Level 98 MMOL/L (98-107) Carbon Dioxide Level 28 MMOL/L (21-32) Anion Gap 10 mmol/L (5-15) Blood Urea Nitrogen 81 mg/dL (7-18) H Creatinine 4.8 MG/DL (0.55-1.30) H Estimat Glomerular Filtration Rate 10.3 mL/min (>60) Glucose Level 141 MG/DL (74-106) H Calcium Level 9.5 MG/DL (8.5-10.1) Phosphorus Level 4.5 MG/DL (2.5-4.9) Magnesium Level 2.4 MG/DL (1.8-2.4) Total Bilirubin 0.4 MG/DL (0.2-1.0) Aspartate Amino Transf (AST/SGOT) 28 U/L (15-37) Alanine Aminotransferase (ALT/SGPT) 29 U/L (12-78) Alkaline Phosphatase 75 U/L (46-116) Total Protein 6.6 G/DL (6.4-8.2) Albumin 2.4 G/DL (3.4-5.0) L Globulin 4.2 g/dL Albumin/Globulin Ratio 0.6 (1.0-2.7) L Intake and Output 09/15/19 09/16/19 19:00 07:00 Intake Total 140 ml Output Total 300 ml Balance -160 ml Free Water 100 ml Tube Feeding 40 ml Output Urine Total 300 ml # Bowel Movements 2 Objective EENT: PERRL/EOMI Cardiovascular: normal rate, regular rhythm Respiratory/Chest: lungs clear, normal breath sounds, no respiratory distress Abdomen: non tender, soft Extremities: other - Diffuse contractures Neurologic: alert Skin: warm/dry, other - Feet w/ bilateral wound bandages Assessment/Plan Assessment/Plan Assessment #ESRD on HD #Anemia of Chronic Disease #Sepsis 2/2 Klebsiella UTI and VRE Bacteremia #Type II RI demand Ischemia, HTN #Dementia, Peg tube dependent, Functional Quadriplegia and associated associated pressure ulcers Plan All issues at present time are stable; currently pending bed at SNF. Continue Meropenem and Vancomycin until 10 days course complete. HD as scheduled w/ epogen dosing. Coreg, ASA, Atorvastatin. DVT ppx, supportive measures. Tube Feeds. [employer] [facility]. Wendy Denny D.O. September 16, 2019 14:30
[2019-09-16 16:00] VITALS: BP 131/78
[2019-09-16] MEDS: Meropenem 500mg/NS 55ml IVPB SCH ×2 (16:00)
[2019-09-16 20:00] VITALS: BP 130/67
[2019-09-16] MEDS: Epoetin Alfa-EPBX(ESRD on dialysis)3000 units/ml vial SUBQ SCH (21:00)
[2019-09-16] MEDS: Morphine Sulfate 2mg/ml Inj(IV/IM USE ONLY) IVP PRN (21:12)
[2019-09-17] VITALS: BP 131/70
[2019-09-17] MEDS: Acetaminophen 650mg/20.3ml GT PRN (02:46)
[2019-09-17 04:00] VITALS: BP 134/65
[2019-09-17 08:00] VITALS: BP 132/57
[2019-09-17] MEDS ORDERED: Enoxaparin 40mg Inj SUBQ SCH (09:00)
[2019-09-17] MEDS: Carvedilol 6.25mg Tab GT SCH ×2 (09:22→21:24)
--- NOTE | 2019-09-17 09:41 | Surgery Progress Note ---
Surgery Progress Note Subjective Additional Comments renal function worse h/h stable wbc trending down comfortable appearing non/v/ Objective Last 24 Hour Vital Signs Date Time Temp Pulse Resp B/P (MAP) Pulse Ox O2 Delivery O2 Flow Rate FiO2 09/17/19 09:22 98 132/57 09/17/19 04:00 98.3 116 19 134/65 (88) 97 09/17/19 04:00 102 09/17/19 00:00 98.7 105 18 131/70 (90) 96 09/16/19 21:00 Room Air 09/16/19 20:29 103 135/72 09/16/19 20:00 98.5 110 19 130/67 (88) 98 09/16/19 20:00 106 09/16/19 16:00 106 09/16/19 16:00 97.4 106 20 131/78 (95) 98 09/16/19 12:17 96.8 103 20 128/78 (95) 96 09/16/19 12:00 105 I&O Intake and Output 09/16/19 09/17/19 18:59 06:59 Intake Total 630 ml 370 ml Output Total 1000 ml Balance -370 ml 370 ml Tube Feeding 480 ml 320 ml Blood Product 150 ml 50 ml Hemodialysis UF 1000 ml # Bowel Movements 1 Dressing: other Wound: other Drains: other Cardiovascular: RSR Respiratory: decreased breath sounds Abdomen: soft, non-tender, present bowel sounds Extremities: no cyanosis Laboratory Tests Test 09/17/19 04:30 Random Vancomycin Level 15.6 ug/mL Plan Problems: (1) COVID-19 ruled out Assessment & Plan: FINDINGS: Lungs: Left basilar opacity with volume loss, likely atelectasis however a focus of infection could have a similar appearance. Pleural space: No pleural effusion. No pneumothorax. Heart: Unremarkable. No cardiomegaly. Bones/joints: No fracture. Vasculature: Atherosclerotic calcifications. Tubes, lines and devices: Right IJ large bore dialysis catheter terminates within the right atrium. IMPRESSION: Left basilar opacity with volume loss, likely atelectasis however a focus of infection could have a similar appearance. leukocytosis anemia pending test (2) Protein calorie malnutrition Assessment & Plan: DAILY ESTIMATED NEEDS: Needs based on Wounds, HD 57kg 30-35 kcals/kg 9250-2712 total kcals 1.25-1.8 g protein/kg 71-103 g total protein Fluids per MD NUTRITION DIAGNOSIS: * Increased kcal and prot needs r/t wound healing and renal failure as evidenced by w/ multiple pressure injuries, including full thickness and unstageable wounds, refer to MD reports, pt w/ ESRD on HD, GT dep. CURRENT TF:Nepro @ 40ml/hr x 20 hrs ENTERAL NUTRITION RECOMMENDATIONS: Nepro @ 45ml/hr x 22 hrs to provide 990ml, 1782kcal, 80g prot, 720ml free water - Rec to INCREASE RATE AND RUNNING TIME ABOVE to better meet est kcal and pro needs - HOB over 30 degrees/ water flush per MD ADDITIONAL RECOMMENDATIONS: 1) Calibrated bedscale wt 2) Wound Care: add Nephrovite x 1 add Saw 1ptk BID via GT 3) Monitor BGs, consider NISS: BGs consistently mildly elevated 4) Monitor lytes and renal fxn (3) Pressure ulcer (4) Decubitus skin ulcer Assessment & Plan: Pt presented on admission with multiple Pressure injuries. Full thickness Pressure Injury R shoulder(L)2.8cm x (W)2cm. Base of wound is 75 % slough, 25% beefy red granulation. Slough removed with gentle friction. Post removal of slough,small amt slough at base of wound. Small amt sanguineous exudate. Edges flat and adherent to base of wound. Periwound without erythema, induration or fluctuance. Darker skin tone without induration ,fluctuance or tenderness at sacrococcygeal area. Non-blanching erythema and scattered areas of hyperpigmentation noted to R and L gluteal cheeks. Pt denied tenderness when affected areas palpated. Full thickness Pressure injury R hip (L)5.5cm x (W)10.2cm x (D)2.6cm. Base of wound is 75% pink granulation,25% Loose fibrinous slough. Bone is palpable.Edges flat ,pink and adherent to base of wound. Small amt. non-odorous serous exudate. Hypopigmentation noted to perineum and labia majora. Unstageable Pressure Injury R heel(L)3.5cm x (W)3.3cm . Base of wound is 100% necrotic with semidetached with surrounding yellow slough. Edges area dry, black. Periwound is non-blanchable and fluctuant. Maroon discoloration with fluctuance noted to distal/lateral R foot (L)2.8cm x ( W)2.5cm. Resolving pressure injury R Hallux(L)3.5cm x (W)3.3cm.Cowgill epithelial at base of wound with surrounding dry brown borders. L heel is boggy with non-blanching erythema.Historical scarring from previous wounds noted. Unstageable Pressure Injury L hallux(L)3.5cm x (W)2.8cm. Base of wound has 90% loose necrotic cap,surrounding slough. Loose necrotic cap easily removed with saline moistened gauze. At base of wound is 100% yellow slough, marginal erythema with small area of necrosis noted along borders. Small amt seropurulent non-odorous exudate noted. Stable dry necrosis at L st metatarsal head. Tx.Plan: Cleanse wound R shoulder with Saline. Apply Therahoney. Apply Cavilon Skin Barrier periwound. Cover with Optifoam drsg. Change every 3 days and prn. Cleanse R hip with Saline. Loosely pack with Therahoney impregnated Kerlix. Apply Moisture Barrier Paste periwound. Cover with Optifoam drsg. Change Daily and prn. Apply Moisture Barrier Paste to Sacrum. Cover with Optifoam drsg. Change every 3 days and prn. Apply Betadine to R heel, R hallux,Distal/lateral R foot. Cover with Abd pad and wrap with Kerlix every 3 days and prn. Apply Betadine to L hallux,L 1st metatarsal head,L heel. Cover with Abd pads and wrap with Kerlix every 3 days and prn. Reposition Back to L Side at least every 2hours or as tolerated. Place Pillow between knees. Off-load heels with pillow. APM/TIEN Mattress overlay. (5) Suspected COVID-19 virus infection (6) Anemia Assessment & Plan: transfused prbc h/h stable trend labs ElijahAnshul September 17, 2019 09:41
--- NOTE | 2019-09-17 09:42 | General Progress Note ---
Assessment/Plan Assessment/Plan: Assessment/Plan Status: stable Assessment/Plan: 1. End-stage renal disease, on hemodialysis. 2. Anemia iron def 3. Dysphagia, status post G-tube placement. 4. Pneumonia. 5. Pancreatic cyst. 6. Hypertension. 7. elevated CEA of 10 8. CAD 9. UTI chart from prior admissions reviewed iv iron repeat stool ob>> neg transfuse to keep HGB above 7 GTF 40 cc HD per nephrology will fu Subjective ROS Limited/Unobtainable: No Allergies: Coded Allergies: No Known Allergies (Unverified , 06/24/19) Objective Last 24 Hour Vital Signs Date Time Temp Pulse Resp B/P (MAP) Pulse Ox O2 Delivery O2 Flow Rate FiO2 09/17/19 09:22 98 132/57 09/17/19 04:00 98.3 116 19 134/65 (88) 97 09/17/19 04:00 102 09/17/19 00:00 98.7 105 18 131/70 (90) 96 09/16/19 21:00 Room Air 09/16/19 20:29 103 135/72 09/16/19 20:00 98.5 110 19 130/67 (88) 98 09/16/19 20:00 106 09/16/19 16:00 106 09/16/19 16:00 97.4 106 20 131/78 (95) 98 09/16/19 12:17 96.8 103 20 128/78 (95) 96 09/16/19 12:00 105 Intake and Output 09/16/19 09/17/19 19:00 07:00 Intake Total 630 ml 330 ml Output Total 1000 ml Balance -370 ml 330 ml Tube Feeding 480 ml 280 ml Blood Product 150 ml 50 ml Hemodialysis UF 1000 ml # Bowel Movements 1 Laboratory Tests 09/17/19 04:30: Random Vancomycin Level 15.6 Height (Feet): 5 Height (Inches): 6.00 Weight (Pounds): 119 General Appearance: no apparent distress EENT: normal ENT inspection Neck: supple Cardiovascular: normal rate Respiratory/Chest: decreased breath sounds Abdomen: normal bowel sounds, non tender, soft Extremities: non-tender Jun Mena MD September 17, 2019 09:42
--- NOTE | 2019-09-17 10:33 | Hematology/Onc Progress Note ---
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 Otherwise unremarkable pancreas --> as per gi, may need further eval with endsocopy --> with pancreatitis at this time, may be obscuring picture --> reimage in short order, 6 months --> ca19.9 60 but may be elevated due to pancreatitis --> cea of 10--> --> monitor lfts daily # Anemia of chronic disease due to underlying chronic medical issues, multifactorial v Gi bleed --> Anemia workup has been reviewed, ferritin 1300 -->1800 --> No evidence of hemolysis is noted, peripheral smear has been reviewed. --> Hgb goal >7. Transfuse prn. --> Epogen has been started --> IV IRON completed --> Medications have been reviewed --> hgb 6-->7.1-->12-->11.2-->-->11.6 -->11.9 --> 09/07 stool ob negative --> rbc: 2 units 09/10/2019, --> bone marrow biopsy is not indicated given the other more likely causes # Leukocytosis/elevated white blood cell count, unspecified likely related to underlying stress reaction, smoking v more likely infection in this case, uti now --> have reviewed peripheral smear and bandemia/neutrophilia noted --> continue antibiotics if they have been started by ID team --> monitor for resolution --> as per id care, on broad spectrum abx --> wbc 14-->12-->9-->14.9-->12->14 --> per id recs, on: cftx-->bethany/vanc --> blood cx++ x2 # Thrombocytopenia - potential causes multifactorial, evaluate liver and viral etiologies to begin, in this case due to sepsisand pancreatitis --> Hep panel and HIV are both negative --> US abd to evaluate for cirrhosis and hsm --> pleural effusions noted, hsm is neg --> Peripheral smear ordered to evaluate for blasts /schistocytes --> abx and other meds have been reviewed --> ok for ppx if plt >50k w/ either heparin or lovenox # 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 Greatly appreciate consultation. Subjective Cardiovascular: Denies: no symptoms, chest pain, edema, irregular heart rate, lightheadedness, palpitations, syncope, other Respiratory: Denies: no symptoms, cough, shortness of breath, SOB with excertion, SOB at rest, sputum, wheezing, other Gastrointestinal/Abdominal: Denies: no symptoms, abdomen distended, abdominal pain, black stools, tarry stools, blood in stool, constipated, diarrhea, difficulty swallowing, nausea, poor appetite, poor fluid intake, rectal bleeding , vomiting, other Genitourinary: Denies: no symptoms, burning, discharge, frequency, flank pain, hematuria, incontinence, pain, urgency, other Neurologic/Psychiatric: Denies: no symptoms, anxiety, depressed, emotional problems, headache, numbness, paresthesia, pre-existing deficit, seizure, tingling, tremors, weakness, other Endocrine: Denies: no symptoms, excessive sweating, flushing, intolerance to cold, intolerance to heat, increased hunger, increased thirst, increased urine, unexplained weight gain, unexplained weight loss, other Allergies: Coded Allergies: No Known Allergies (Unverified , 06/24/19) Subjective 09/09 on tele, labs pending, stool ob negative, iv abx 09/10 s/p 2 units rbc, hgb improved to 12, on iv iron, hep b neg. 09/11 hd for today, h/h stable, no acute distress 09/12 nonverbal, no overnight events, bethany/vanc 09/13 le vishal duplex bilat negative, clood cx++ x2, no distress 09/14 labs noted, no bleeding, no night sweats, meds reviewed 09/15 hd as per renal, labs noted, no bleeding, no fc wbc 12k 09/16 cotninue on iv iron, labs noted, hgb relatively stable Objective Objective Current Medications Medications (Trade) Dose Ordered Sig/Joan Route PRN Reason Start Time Stop Time Status Last Admin Dose Admin Acetaminophen (Tylenol) 650 mg Q4H PRN GT Mild Pain (Pain Scale 1-3) 09/08/19 06:15 10/08/19 03:29 09/17/19 02:46 Atorvastatin Calcium (Lipitor) 10 mg BEDTIME GT 09/08/19 21:00 12/07/19 20:59 09/16/19 20:29 Carvedilol (Coreg) 6.25 mg EVERY 12 HOURS GT 09/08/19 09:00 10/08/19 08:59 09/17/19 09:22 Enoxaparin Sodium (Lovenox) 40 mg DAILY SUBQ 09/17/19 09:00 12/16/19 08:59 UNV Epoetin Dion (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)) 6,000 unit MON-MON-MON SUBQ 09/11/19 21:00 12/08/19 20:59 09/13/19 20:33 Gabapentin (Neurontin) 300 mg THREE TIMES A DAY GT 09/08/19 09:00 10/08/19 08:59 09/17/19 09:23 Loperamide HCl (Imodium) 2 mg Q4H PRN GT Diarrhea 09/08/19 06:15 10/08/19 03:44 09/13/19 17:25 Loperamide HCl (Imodium) 2 mg Q6H PRN GT Diarrhea 09/13/19 17:30 10/13/19 17:29 Meropenem 500 mg/ Sodium Chloride 55 ml @ 110 mls/hr Q24H IVPB 09/09/19 16:00 09/18/19 16:59 09/16/19 16:00 Morphine Sulfate (Morphine Sulfate) 1 mg Q4H PRN IVP For Pain 09/15/19 11:30 09/22/19 11:29 09/16/19 21:12 Vancomycin HCl (Vanco rx to dose) 1 ea DAILY PRN MISC Per rx protocol 09/09/19 13:00 10/09/19 12:59 Vancomycin HCl 500 mg/Dextrose 110 ml @ 110 mls/hr ONCE ONCE IVPB 09/17/19 12:00 09/17/19 12:59 Last 24 Hour Vital Signs Date Time Temp Pulse Resp B/P (MAP) Pulse Ox O2 Delivery O2 Flow Rate FiO2 09/17/19 09:22 98 132/57 09/17/19 09:00 Room Air 09/17/19 08:00 98 09/17/19 08:00 98.4 98 18 132/57 (82) 96 09/17/19 04:00 98.3 116 19 134/65 (88) 97 09/17/19 04:00 102 09/17/19 00:00 98.7 105 18 131/70 (90) 96 09/16/19 21:00 Room Air 09/16/19 20:29 103 135/72 09/16/19 20:00 98.5 110 19 130/67 (88) 98 09/16/19 20:00 106 09/16/19 16:00 106 09/16/19 16:00 97.4 106 20 131/78 (95) 98 09/16/19 12:17 96.8 103 20 128/78 (95) 96 09/16/19 12:00 105 09/16/19 09:00 Room Air 09/16/19 08:00 113 09/16/19 08:00 97.7 109 19 127/85 (99) 98 09/16/19 04:00 98.6 95 18 122/72 (89) 93 09/16/19 04:00 97 09/16/19 00:00 92 09/16/19 00:00 98.2 98 18 133/70 (91) 94 09/15/19 21:00 Room Air 09/15/19 20:53 102 136/62 09/15/19 20:00 98.4 95 19 136/64 (88) 94 09/15/19 20:00 96 09/15/19 16:00 97.7 94 20 131/54 (79) 93 09/15/19 16:00 95 09/15/19 12:00 97.5 94 22 102/57 (72) 93 09/15/19 12:00 94 Intake and Output 09/16/19 09/17/19 19:00 07:00 Intake Total 630 ml 330 ml Output Total 1000 ml Balance -370 ml 330 ml Tube Feeding 480 ml 280 ml Blood Product 150 ml 50 ml Hemodialysis UF 1000 ml # Bowel Movements 1 Labs Test 09/15/19 06:55 09/16/19 07:03 09/17/19 04:30 Sodium Level 138 MMOL/L (136-145) 136 MMOL/L (136-145) Potassium Level 4.1 MMOL/L (3.5-5.1) 4.1 MMOL/L (3.5-5.1) Chloride Level 98 MMOL/L (98-107) 98 MMOL/L (98-107) Carbon Dioxide Level 30 MMOL/L (21-32) 28 MMOL/L (21-32) Anion Gap 10 mmol/L (5-15) 10 mmol/L (5-15) Blood Urea Nitrogen 64 mg/dL (7-18) 81 mg/dL (7-18) Creatinine 4.2 MG/DL (0.55-1.30) 4.8 MG/DL (0.55-1.30) Estimat Glomerular Filtration Rate 12.0 mL/min (>60) 10.3 mL/min (>60) Glucose Level 119 MG/DL (74-106) 141 MG/DL (74-106) Calcium Level 9.2 MG/DL (8.5-10.1) 9.5 MG/DL (8.5-10.1) Magnesium Level 2.3 MG/DL (1.8-2.4) 2.4 MG/DL (1.8-2.4) White Blood Count 12.2 K/UL (4.8-10.8) Red Blood Count 4.04 M/UL (4.20-5.40) Hemoglobin 11.9 G/DL (12.0-16.0) Hematocrit 34.9 % (37.0-47.0) Mean Corpuscular Volume 86 FL (80-99) Mean Corpuscular Hemoglobin 29.4 PG (27.0-31.0) Mean Corpuscular Hemoglobin Concent 34.0 G/DL (32.0-36.0) Red Cell Distribution Width 13.4 % (11.6-14.8) Platelet Count 311 K/UL (150-450) Mean Platelet Volume 6.5 FL (6.5-10.1) Neutrophils (%) (Auto) 69.5 % (45.0-75.0) Lymphocytes (%) (Auto) 19.9 % (20.0-45.0) Monocytes (%) (Auto) 7.0 % (1.0-10.0) Eosinophils (%) (Auto) 3.0 % (0.0-3.0) Basophils (%) (Auto) 0.6 % (0.0-2.0) Phosphorus Level 4.5 MG/DL (2.5-4.9) Total Bilirubin 0.4 MG/DL (0.2-1.0) Aspartate Amino Transf (AST/SGOT) 28 U/L (15-37) Alanine Aminotransferase (ALT/SGPT) 29 U/L (12-78) Alkaline Phosphatase 75 U/L (46-116) Total Protein 6.6 G/DL (6.4-8.2) Albumin 2.4 G/DL (3.4-5.0) Globulin 4.2 g/dL Albumin/Globulin Ratio 0.6 (1.0-2.7) Random Vancomycin Level 15.6 ug/mL Height (Feet): 5 Height (Inches): 6.00 Weight (Pounds): 119 Objective Physical Exam: Vitals: reviewed General: NAD, groans to pain stimuli HEENT: nc, at Neck: supple Chest: clear breath sounds bilaterally Cardiovascular: RRR, no s3, s4 Abdomen: soft, nontender, nd ++ peg Extremities: no cce, normal range of motion Neuro: confused, nonverbal Skin: other - pressure sores to right side Bola Aldridge MD September 17, 2019 10:33
[2019-09-17 11:39] LABS: BASOPHILS % (AUTO) 0.7 % (0.0-2.0); EOSINOPHILS % (AUTO) 2.4 % (0.0-3.0); HEMATOCRIT 31.7 % (37.0-47.0); HEMOGLOBIN 10.9 G/DL (12.0-16.0); LYMPHOCYTES % (AUTO) 24.3 % (20.0-45.0); MEAN CORPUSCULAR VOLUME 86 FL (80-99); MONOCYTES % (AUTO) 8.8 % (1.0-10.0); NEUTROPHILS % (AUTO) 63.8 % (45.0-75.0); PLATELET COUNT 230 K/UL (150-450); RED BLOOD COUNT 3.67 M/UL (4.20-5.40); RED CELL DISTRIBUTION WIDTH 13.6 % (11.6-14.8); WHITE BLOOD COUNT 11.9 K/UL (4.8-10.8)
[2019-09-17 12:00] VITALS: BP 117/51
[2019-09-17] MEDS ORDERED: Vancomycin 500mg/D5W 110ml IVPB ONE ×2 (12:00)
--- NOTE | 2019-09-17 13:22 | Cardiac Electrophysiology PN ---
Assessment/Plan Assessment/Plan 1. BNP of more than 6000. On HD . EF 65%. Ruled out for [place] On HD 2. Hypertension. Continue Coreg 6.25 mg b.i.d. and HD 3. Elevated white count and UTI. On Abx per Dr. Rosado. 4. Dysphagia, status post PEG placement. 5. Dementia. 6. ESRD on HD per Dr. Bowen. 7. Severe anemia Hb 6.9, S/P 2 units of PRBC DW RN Subjective Subjective Nonverbal. First Covid on 09/06 was negative. DC to [facility] pending Objective Last 24 Hour Vital Signs Date Time Temp Pulse Resp B/P (MAP) Pulse Ox O2 Delivery O2 Flow Rate FiO2 09/17/19 12:00 91 09/17/19 12:00 98.1 91 20 117/51 (73) 97 09/17/19 09:22 98 132/57 09/17/19 09:00 Room Air 09/17/19 08:00 98 09/17/19 08:00 98.4 98 18 132/57 (82) 96 09/17/19 04:00 98.3 116 19 134/65 (88) 97 09/17/19 04:00 102 09/17/19 00:00 98.7 105 18 131/70 (90) 96 09/16/19 21:00 Room Air 09/16/19 20:29 103 135/72 09/16/19 20:00 98.5 110 19 130/67 (88) 98 09/16/19 20:00 106 09/16/19 16:00 106 09/16/19 16:00 97.4 106 20 131/78 (95) 98 Intake and Output 09/16/19 09/17/19 19:00 07:00 Intake Total 630 ml 330 ml Output Total 1000 ml Balance -370 ml 330 ml Tube Feeding 480 ml 280 ml Blood Product 150 ml 50 ml Hemodialysis UF 1000 ml # Bowel Movements 1 Laboratory Tests Test 09/17/19 04:30 09/17/19 10:50 Random Vancomycin Level 15.6 ug/mL White Blood Count 11.9 K/UL (4.8-10.8) H Red Blood Count 3.67 M/UL (4.20-5.40) L Hemoglobin 10.9 G/DL (12.0-16.0) L Hematocrit 31.7 % (37.0-47.0) L Mean Corpuscular Volume 86 FL (80-99) Mean Corpuscular Hemoglobin 29.6 PG (27.0-31.0) Mean Corpuscular Hemoglobin Concent 34.3 G/DL (32.0-36.0) Red Cell Distribution Width 13.6 % (11.6-14.8) Platelet Count 230 K/UL (150-450) Mean Platelet Volume 7.0 FL (6.5-10.1) Neutrophils (%) (Auto) 63.8 % (45.0-75.0) Lymphocytes (%) (Auto) 24.3 % (20.0-45.0) Monocytes (%) (Auto) 8.8 % (1.0-10.0) Eosinophils (%) (Auto) 2.4 % (0.0-3.0) Basophils (%) (Auto) 0.7 % (0.0-2.0) Objective HEAD AND NECK: Shows no JVD. LUNGS: Coarse rhonchi. CARDIOVASCULAR: Shows regular S1 and S2 with no gallop. ABDOMEN: Status post G-tube. EXTREMITIES: No pitting edema. Cristopher Osman MD September 17, 2019 13:22
--- NOTE | 2019-09-17 13:29 | Nephrology Progress Note ---
Assessment/Plan Plan #ESRD on HD TTHS- #anemia of CKD #UTI #dysphagia s/p PEG #multiple pressure wounds #HTN - plan for HD tomorrow - hemoglobin stable - STRICT I&Os - daily weights - replete lytes - prbc transfusion for hemoglobin < 7 - increased epo to 6k TIW - IV iron - monitor CBC - on vancomycin and meropenem - continue coreg 6.25mg BID - replete phos - monitor mag, phos and BMP daily Time spent 45 min > 50% on care coordination and counseling Subjective ROS Limited/Unobtainable: No Subjective Labs reviewed s/p HD yesterday hemoglobin stable Objective Objective Last 24 Hour Vital Signs Date Time Temp Pulse Resp B/P (MAP) Pulse Ox O2 Delivery O2 Flow Rate FiO2 09/17/19 12:00 91 09/17/19 12:00 98.1 91 20 117/51 (73) 97 09/17/19 09:22 98 132/57 09/17/19 09:00 Room Air 09/17/19 08:00 98 09/17/19 08:00 98.4 98 18 132/57 (82) 96 09/17/19 04:00 98.3 116 19 134/65 (88) 97 09/17/19 04:00 102 09/17/19 00:00 98.7 105 18 131/70 (90) 96 09/16/19 21:00 Room Air 09/16/19 20:29 103 135/72 09/16/19 20:00 98.5 110 19 130/67 (88) 98 09/16/19 20:00 106 09/16/19 16:00 106 09/16/19 16:00 97.4 106 20 131/78 (95) 98 Intake and Output 09/16/19 09/17/19 19:00 07:00 Intake Total 630 ml 330 ml Output Total 1000 ml Balance -370 ml 330 ml Tube Feeding 480 ml 280 ml Blood Product 150 ml 50 ml Hemodialysis UF 1000 ml # Bowel Movements 1 Laboratory Tests 09/17/19 04:30: Random Vancomycin Level 15.6 09/17/19 10:50: White Blood Count 11.9H, Red Blood Count 3.67L, Hemoglobin 10.9L, Hematocrit 31.7L, Mean Corpuscular Volume 86, Mean Corpuscular Hemoglobin 29.6, Mean Corpuscular Hemoglobin Concent 34.3, Red Cell Distribution Width 13.6, Platelet Count 230, Mean Platelet Volume 7.0, Neutrophils (%) (Auto) 63.8, Lymphocytes (% ) (Auto) 24.3, Monocytes (%) (Auto) 8.8, Eosinophils (%) (Auto) 2.4, Basophils ( %) (Auto) 0.7 Height (Feet): 5 Height (Inches): 6.00 Weight (Pounds): 119 Objective General Appearance: confused, cachetic, thin Lines, tubes and drains: peripheral HEENT: normocephalic, atraumatic Respiratory/Chest: chest wall non-tender, no respiratory distress Cardiovascular/Chest: normal peripheral pulses Abdomen: feeding tube Extremities: non-pitting, no cyanosis, other - unable to move extremities. Skin Exam: other - pressure ulcers Rory Oconnor M.D. September 17, 2019 13:29
--- NOTE | 2019-09-17 15:09 | Internal Med Progress Note ---
Subjective Date of Service: September 17, 2019 Physician Name Wendy Denny Attending Physician Meera Frederick MD Current Medications Medications (Trade) Dose Ordered Sig/Joan Route PRN Reason Start Time Stop Time Status Last Admin Dose Admin Acetaminophen (Tylenol) 650 mg Q4H PRN GT Mild Pain (Pain Scale 1-3) 09/08/19 06:15 10/08/19 03:29 09/17/19 02:46 Atorvastatin Calcium (Lipitor) 10 mg BEDTIME GT 09/08/19 21:00 12/07/19 20:59 09/16/19 20:29 Carvedilol (Coreg) 6.25 mg EVERY 12 HOURS GT 09/08/19 09:00 10/08/19 08:59 09/17/19 09:22 Enoxaparin Sodium (Lovenox) 40 mg DAILY SUBQ 09/17/19 09:00 12/16/19 08:59 UNV Epoetin Dion (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)) 6,000 unit MON-MON-MON SUBQ 09/11/19 21:00 12/08/19 20:59 09/13/19 20:33 Gabapentin (Neurontin) 300 mg THREE TIMES A DAY GT 09/08/19 09:00 10/08/19 08:59 09/17/19 12:35 Loperamide HCl (Imodium) 2 mg Q6H PRN GT Diarrhea 09/13/19 17:30 10/13/19 17:29 Meropenem 500 mg/ Sodium Chloride 55 ml @ 110 mls/hr Q24H IVPB 09/09/19 16:00 09/18/19 16:59 09/16/19 16:00 Morphine Sulfate (Morphine Sulfate) 1 mg Q4H PRN IVP For Pain 09/15/19 11:30 09/22/19 11:29 09/16/19 21:12 Vancomycin HCl (Vanco rx to dose) 1 ea DAILY PRN MISC Per rx protocol 09/09/19 13:00 10/09/19 12:59 Allergies: Coded Allergies: No Known Allergies (Unverified , 06/24/19) Subjective No acute events pending placement; patient is stable. Labs and vitals reviewed. Objective Last Vital Signs Date Time Temp Pulse Resp B/P (MAP) Pulse Ox O2 Delivery O2 Flow Rate FiO2 09/17/19 12:00 91 09/17/19 12:00 98.1 20 117/51 (73) 97 09/17/19 09:00 Room Air Laboratory Tests Test 09/17/19 04:30 09/17/19 10:50 Random Vancomycin Level 15.6 ug/mL White Blood Count 11.9 K/UL (4.8-10.8) H Red Blood Count 3.67 M/UL (4.20-5.40) L Hemoglobin 10.9 G/DL (12.0-16.0) L Hematocrit 31.7 % (37.0-47.0) L Mean Corpuscular Volume 86 FL (80-99) Mean Corpuscular Hemoglobin 29.6 PG (27.0-31.0) Mean Corpuscular Hemoglobin Concent 34.3 G/DL (32.0-36.0) Red Cell Distribution Width 13.6 % (11.6-14.8) Platelet Count 230 K/UL (150-450) Mean Platelet Volume 7.0 FL (6.5-10.1) Neutrophils (%) (Auto) 63.8 % (45.0-75.0) Lymphocytes (%) (Auto) 24.3 % (20.0-45.0) Monocytes (%) (Auto) 8.8 % (1.0-10.0) Eosinophils (%) (Auto) 2.4 % (0.0-3.0) Basophils (%) (Auto) 0.7 % (0.0-2.0) Intake and Output 09/16/19 09/17/19 19:00 07:00 Intake Total 630 ml 330 ml Output Total 1000 ml Balance -370 ml 330 ml Tube Feeding 480 ml 280 ml Blood Product 150 ml 50 ml Hemodialysis UF 1000 ml # Bowel Movements 1 Objective EENT: PERRL/EOMI Cardiovascular: normal rate, regular rhythm Respiratory/Chest: lungs clear, normal breath sounds, no respiratory distress Abdomen: non tender, soft Extremities: other - Diffuse contractures Neurologic: alert Skin: warm/dry, other - Feet w/ bilateral wound bandages Assessment/Plan Assessment/Plan Assessment #ESRD on HD #Anemia of Chronic Disease #Sepsis 2/2 Klebsiella UTI and VRE Bacteremia #Type II OK demand Ischemia, HTN #Dementia, Peg tube dependent, Functional Quadriplegia and associated associated pressure ulcers Plan All issues at present time are stable; currently pending bed at SNF. Continue Meropenem and Vancomycin until 10 days course complete. HD as scheduled w/ epogen dosing. Coreg, ASA, Atorvastatin. DVT ppx, supportive measures. Tube Feeds. [facility]. Wendy Denny D.O. September 17, 2019 15:09
[2019-09-17] MEDS: Meropenem 500mg/NS 55ml IVPB SCH ×2 (15:41)
--- NOTE | 2019-09-17 15:45 | Pulmonology Progress Note ---
Subjective ROS Limited/Unobtainable: No Interval Events: None new Constitutional: Reports: fatigue; Denies: fever Gastrointestinal/Abdominal: Denies: nausea, vomiting, diarrhea Psychiatric: Reports: other - NA Skin: Denies: rash Musculoskeletal: Reports: other - NA Allergies: Coded Allergies: No Known Allergies (Unverified , 06/24/19) All Systems: reviewed and negative except above - All 12 point ROS negative Objective Last 24 Hour Vital Signs Date Time Temp Pulse Resp B/P (MAP) Pulse Ox O2 Delivery O2 Flow Rate FiO2 09/17/19 12:00 91 09/17/19 12:00 98.1 91 20 117/51 (73) 97 09/17/19 09:22 98 132/57 09/17/19 09:00 Room Air 09/17/19 08:00 98 09/17/19 08:00 98.4 98 18 132/57 (82) 96 09/17/19 04:00 98.3 116 19 134/65 (88) 97 09/17/19 04:00 102 09/17/19 00:00 98.7 105 18 131/70 (90) 96 09/16/19 21:00 Room Air 09/16/19 20:29 103 135/72 09/16/19 20:00 98.5 110 19 130/67 (88) 98 09/16/19 20:00 106 09/16/19 16:00 106 09/16/19 16:00 97.4 106 20 131/78 (95) 98 Intake and Output 09/16/19 09/17/19 19:00 07:00 Intake Total 630 ml 330 ml Output Total 1000 ml Balance -370 ml 330 ml Tube Feeding 480 ml 280 ml Blood Product 150 ml 50 ml Hemodialysis UF 1000 ml # Bowel Movements 1 General Appearance: no acute distress HEENT: normocephalic Respiratory: chest wall non-tender, lungs clear Cardiovascular: normal peripheral pulses, normal rate Abdomen: normal bowel sounds Laboratory Tests 09/17/19 04:30: Random Vancomycin Level 15.6 09/17/19 10:50: White Blood Count 11.9H, Red Blood Count 3.67L, Hemoglobin 10.9L, Hematocrit 31.7L, Mean Corpuscular Volume 86, Mean Corpuscular Hemoglobin 29.6, Mean Corpuscular Hemoglobin Concent 34.3, Red Cell Distribution Width 13.6, Platelet Count 230, Mean Platelet Volume 7.0, Neutrophils (%) (Auto) 63.8, Lymphocytes (% ) (Auto) 24.3, Monocytes (%) (Auto) 8.8, Eosinophils (%) (Auto) 2.4, Basophils ( %) (Auto) 0.7 Current Medications Medications (Trade) Dose Ordered Sig/Joan Route PRN Reason Start Time Stop Time Status Last Admin Dose Admin Acetaminophen (Tylenol) 650 mg Q4H PRN GT Mild Pain (Pain Scale 1-3) 09/08/19 06:15 10/08/19 03:29 09/17/19 02:46 Atorvastatin Calcium (Lipitor) 10 mg BEDTIME GT 09/08/19 21:00 12/07/19 20:59 09/16/19 20:29 Carvedilol (Coreg) 6.25 mg EVERY 12 HOURS GT 09/08/19 09:00 10/08/19 08:59 09/17/19 09:22 Epoetin Dion (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)) 6,000 unit MON-MON-MON SUBQ 09/11/19 21:00 12/08/19 20:59 09/13/19 20:33 Gabapentin (Neurontin) 300 mg THREE TIMES A DAY GT 09/08/19 09:00 10/08/19 08:59 09/17/19 12:35 Heparin Sodium (Porcine) (Heparin 5000 units/ml) 5,000 units EVERY 12 HOURS SUBQ 09/17/19 15:43 11/01/19 15:42 Loperamide HCl (Imodium) 2 mg Q6H PRN GT Diarrhea 09/13/19 17:30 10/13/19 17:29 Meropenem 500 mg/ Sodium Chloride 55 ml @ 110 mls/hr Q24H IVPB 09/09/19 16:00 09/18/19 16:59 09/17/19 15:41 Morphine Sulfate (Morphine Sulfate) 1 mg Q4H PRN IVP For Pain 09/15/19 11:30 09/22/19 11:29 09/16/19 21:12 Vancomycin HCl (Vanco rx to dose) 1 ea DAILY PRN MISC Per rx protocol 09/09/19 13:00 10/09/19 12:59 Assessment/Plan Assessment/Plan IMPRESSION: 1. UTI. 2. Anemia. 3. ESRD, on dialysis. 4. Initial COVID-19 negative. DISCUSSION: Continue current medications and care. Initial COVID-19 pcr negative Blood transfusion. Empiric antibiotics. Hemodialysis. Saturating well on RA I will follow carefully. Ross Nina Omar Syed MD September 17, 2019 15:45
[2019-09-17 16:00] VITALS: BP 125/54
[2019-09-17] MEDS: Heparin 5000 units/ml inj SUBQ SCH (17:23)
[2019-09-17 20:00] VITALS: BP 146/69
--- NOTE | 2019-09-17 20:53 | Infectious Diseases Prog Note ---
Assessment/Plan Assessment/Plan ASSESSMENT AND PLAN: 1. 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 She has history of hemodialysis, end-stage renal disease, chronic kidney disease. 3. The patient has history of hypertension. 4. Anemia. 5. Elevated creatinine. 6. Hypertension treatment per primary care team. 7. Wound care per Surgery. 8. Dysphagia, G-tube 9. No known drug allergies. 10. Social history is negative. 11. Family History is noncontributory. 12. MAR was noted. 13. Case discussed with RN. 14. Continue treatment per primary consultants. 15. Orders were noted and entered. Subjective Constitutional: Reports: fatigue; Denies: fever HEENT: Denies: congestion Respiratory: Denies: shortness of breath Cardiovascular: Denies: chest pain Gastrointestinal/Abdominal: Denies: nausea, vomiting, diarrhea Genitourinary: Reports: other - + hargrove Neurologic: Denies: headache Psychiatric: Denies: depression Skin: Denies: rash Hematologic: Denies: bleeding Musculoskeletal: Denies: pain Allergies: Coded Allergies: No Known Allergies (Unverified , 06/24/19) Objective Vital Signs Last 24 Hour Vital Signs Date Time Temp Pulse Resp B/P (MAP) Pulse Ox O2 Delivery O2 Flow Rate FiO2 09/17/19 16:00 90 09/17/19 16:00 97.9 90 18 125/54 (77) 97 09/17/19 12:00 91 09/17/19 12:00 98.1 91 20 117/51 (73) 97 09/17/19 09:22 98 132/57 09/17/19 09:00 Room Air 09/17/19 08:00 98 09/17/19 08:00 98.4 98 18 132/57 (82) 96 09/17/19 04:00 98.3 116 19 134/65 (88) 97 09/17/19 04:00 102 09/17/19 00:00 98.7 105 18 131/70 (90) 96 09/16/19 21:00 Room Air Height (Feet): 5 Height (Inches): 6.00 Weight (Pounds): 119 General Appearance: no acute distress HEENT: normocephalic, atraumatic, anicteric, mucous membranes moist Respiratory/Chest: lungs clear, normal breath sounds, no respiratory distress, no accessory muscle use Cardiovascular: normal rate, regular rhythm, no gallop/murmur Abdomen: normal bowel sounds, soft, non tender, no organomegaly, non distended Genitourinary: other - + hargrove Extremities: other - wounds covered, no cellulitis Skin: no rash Neurologic/Psychiatric: overage shortage and damage clerk 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 normal, other - lethargic, weak Lymphatic: no neck adenopathy Musculoskeletal: no effusion Objective Procedure: XRAY Chest 1v Procedure: XRAY Chest 1v Reason for study: Shortness of breath. Comparison films: 09/07/2019. FINDINGS: Right central venous catheter remains in place. Vascularity is normal. Mild left basilar hazy densities unchanged. Cardiac and mediastinal silhouette are within normal limits. There may be a trace left effusion. The bony thorax appear unremarkable. IMPRESSION: NO ACUTE CARDIOPULMONARY DISEASE. Microbiology Date/Time Source Procedure Growth Status 09/10/19 06:35 Blood Blood Culture - Final NO GROWTH AFTER 5 DAYS Complete 09/08/19 07:30 Wound Gram Stain - Final Complete 09/08/19 07:30 Wound Culture - Final Usual Skin Cristina Complete 09/12/19 16:23 Nasopharynx Coronavirus COVID-19 PCR ([facility]) - Final Complete 09/07/19 18:05 Urine,Clean Catch Urine Culture - Final Klebsiella Pneumoniae Esbl Pseudomonas Aeruginosa Complete 09/07/19 18:50 Rectum - Final NO CARBAPENEM-RESISTANT ENTEROBACTERI... Complete Labs Test 09/15/19 06:55 09/16/19 07:03 09/17/19 04:30 09/17/19 10:50 Sodium Level 138 MMOL/L (136-145) 136 MMOL/L (136-145) Potassium Level 4.1 MMOL/L (3.5-5.1) 4.1 MMOL/L (3.5-5.1) Chloride Level 98 MMOL/L (98-107) 98 MMOL/L (98-107) Carbon Dioxide Level 30 MMOL/L (21-32) 28 MMOL/L (21-32) Anion Gap 10 mmol/L (5-15) 10 mmol/L (5-15) Blood Urea Nitrogen 64 mg/dL (7-18) 81 mg/dL (7-18) Creatinine 4.2 MG/DL (0.55-1.30) 4.8 MG/DL (0.55-1.30) Estimat Glomerular Filtration Rate 12.0 mL/min (>60) 10.3 mL/min (>60) Glucose Level 119 MG/DL (74-106) 141 MG/DL (74-106) Calcium Level 9.2 MG/DL (8.5-10.1) 9.5 MG/DL (8.5-10.1) Magnesium Level 2.3 MG/DL (1.8-2.4) 2.4 MG/DL (1.8-2.4) White Blood Count 12.2 K/UL (4.8-10.8) 11.9 K/UL (4.8-10.8) Red Blood Count 4.04 M/UL (4.20-5.40) 3.67 M/UL (4.20-5.40) Hemoglobin 11.9 G/DL (12.0-16.0) 10.9 G/DL (12.0-16.0) Hematocrit 34.9 % (37.0-47.0) 31.7 % (37.0-47.0) Mean Corpuscular Volume 86 FL (80-99) 86 FL (80-99) Mean Corpuscular Hemoglobin 29.4 PG (27.0-31.0) 29.6 PG (27.0-31.0) Mean Corpuscular Hemoglobin Concent 34.0 G/DL (32.0-36.0) 34.3 G/DL (32.0-36.0) Red Cell Distribution Width 13.4 % (11.6-14.8) 13.6 % (11.6-14.8) Platelet Count 311 K/UL (150-450) 230 K/UL (150-450) Mean Platelet Volume 6.5 FL (6.5-10.1) 7.0 FL (6.5-10.1) Neutrophils (%) (Auto) 69.5 % (45.0-75.0) 63.8 % (45.0-75.0) Lymphocytes (%) (Auto) 19.9 % (20.0-45.0) 24.3 % (20.0-45.0) Monocytes (%) (Auto) 7.0 % (1.0-10.0) 8.8 % (1.0-10.0) Eosinophils (%) (Auto) 3.0 % (0.0-3.0) 2.4 % (0.0-3.0) Basophils (%) (Auto) 0.6 % (0.0-2.0) 0.7 % (0.0-2.0) Phosphorus Level 4.5 MG/DL (2.5-4.9) Total Bilirubin 0.4 MG/DL (0.2-1.0) Aspartate Amino Transf (AST/SGOT) 28 U/L (15-37) Alanine Aminotransferase (ALT/SGPT) 29 U/L (12-78) Alkaline Phosphatase 75 U/L (46-116) Total Protein 6.6 G/DL (6.4-8.2) Albumin 2.4 G/DL (3.4-5.0) Globulin 4.2 g/dL Albumin/Globulin Ratio 0.6 (1.0-2.7) Random Vancomycin Level 15.6 ug/mL Laboratory Tests Test 09/17/19 04:30 09/17/19 10:50 Random Vancomycin Level 15.6 ug/mL White Blood Count 11.9 K/UL (4.8-10.8) H Red Blood Count 3.67 M/UL (4.20-5.40) L Hemoglobin 10.9 G/DL (12.0-16.0) L Hematocrit 31.7 % (37.0-47.0) L Mean Corpuscular Volume 86 FL (80-99) Mean Corpuscular Hemoglobin 29.6 PG (27.0-31.0) Mean Corpuscular Hemoglobin Concent 34.3 G/DL (32.0-36.0) Red Cell Distribution Width 13.6 % (11.6-14.8) Platelet Count 230 K/UL (150-450) Mean Platelet Volume 7.0 FL (6.5-10.1) Neutrophils (%) (Auto) 63.8 % (45.0-75.0) Lymphocytes (%) (Auto) 24.3 % (20.0-45.0) Monocytes (%) (Auto) 8.8 % (1.0-10.0) Eosinophils (%) (Auto) 2.4 % (0.0-3.0) Basophils (%) (Auto) 0.7 % (0.0-2.0) Current Medications Medications (Trade) Dose Ordered Sig/Joan Route PRN Reason Start Time Stop Time Status Last Admin Dose Admin Acetaminophen (Tylenol) 650 mg Q4H PRN GT Mild Pain (Pain Scale 1-3) 09/08/19 06:15 10/08/19 03:29 09/17/19 02:46 Atorvastatin Calcium (Lipitor) 10 mg BEDTIME GT 09/08/19 21:00 12/07/19 20:59 09/16/19 20:29 Carvedilol (Coreg) 6.25 mg EVERY 12 HOURS GT 09/08/19 09:00 10/08/19 08:59 09/17/19 09:22 Epoetin Dion (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)) 6,000 unit MON-MON-MON SUBQ 09/11/19 21:00 12/08/19 20:59 09/13/19 20:33 Gabapentin (Neurontin) 300 mg THREE TIMES A DAY GT 09/08/19 09:00 10/08/19 08:59 09/17/19 17:18 Heparin Sodium (Porcine) (Heparin 5000 units/ml) 5,000 units EVERY 12 HOURS SUBQ 09/17/19 15:43 11/01/19 15:42 09/17/19 17:23 Loperamide HCl (Imodium) 2 mg Q6H PRN GT Diarrhea 09/13/19 17:30 10/13/19 17:29 Meropenem 500 mg/ Sodium Chloride 55 ml @ 110 mls/hr Q24H IVPB 09/09/19 16:00 09/18/19 16:59 09/17/19 15:41 Morphine Sulfate (Morphine Sulfate) 1 mg Q4H PRN IVP For Pain 09/15/19 11:30 09/22/19 11:29 09/16/19 21:12 Vancomycin HCl (Vanco rx to dose) 1 ea DAILY PRN MISC Per rx protocol 09/09/19 13:00 10/09/19 12:59 Ana Rosado MD September 17, 2019 20:53
[2019-09-18] VITALS: BP 135/76
[2019-09-18 04:00] VITALS: BP 140/73
[2019-09-18 05:34] LABS: BASOPHILS % (AUTO) 0.7 % (0.0-2.0); EOSINOPHILS % (AUTO) 3.1 % (0.0-3.0); HEMATOCRIT 32.9 % (37.0-47.0); HEMOGLOBIN 11.2 G/DL (12.0-16.0); LYMPHOCYTES % (AUTO) 25.7 % (20.0-45.0); MEAN CORPUSCULAR VOLUME 86 FL (80-99); NEUTROPHILS % (AUTO) 63.6 % (45.0-75.0); PLATELET COUNT 268 K/UL (150-450); RED BLOOD COUNT 3.81 M/UL (4.20-5.40); RED CELL DISTRIBUTION WIDTH 13.2 % (11.6-14.8); WHITE BLOOD COUNT 12.9 K/UL (4.8-10.8)
[2019-09-18 06:25] LABS: ALANINE AMINOTRANSFERASE 27 U/L (12-78); ALBUMIN 2.4 G/DL (3.4-5.0); ALBUMIN/GLOBULIN RATIO 0.6 (1.0-2.7); ALKALINE PHOSPHATASE 78 U/L (46-116); ANION GAP 7 mmol/L (5-15); ASPARTATE AMINO TRANSFERASE 28 U/L (15-37); BILIRUBIN,TOTAL 0.5 MG/DL (0.2-1.0); BLOOD UREA NITROGEN 74 mg/dL (7-18); CALCIUM 9.7 MG/DL (8.5-10.1); CARBON DIOXIDE 32 MMOL/L (21-32); CHLORIDE 98 MMOL/L (98-107); CREATININE 4.1 MG/DL (0.55-1.30); SODIUM 137 MMOL/L (136-145)
[2019-09-18 08:30] VITALS: BP 113/54
[2019-09-18] MEDS: Heparin 5000 units/ml inj SUBQ SCH ×2 (09:00→20:48)
[2019-09-18] MEDS: Carvedilol 6.25mg Tab GT SCH ×2 (09:00→20:47)
--- NOTE | 2019-09-18 09:16 | General Progress Note ---
Assessment/Plan Assessment/Plan: Assessment/Plan Status: stable Assessment/Plan: 1. End-stage renal disease, on hemodialysis. 2. Anemia iron def 3. Dysphagia, status post G-tube placement. 4. Pneumonia. 5. Pancreatic cyst. 6. Hypertension. 7. elevated CEA of 10 8. CAD 9. UTI chart from prior admissions reviewed iv iron repeat stool ob>> neg transfuse to keep HGB above 7 GTF 40 cc HD per nephrology will fu Subjective ROS Limited/Unobtainable: No Allergies: Coded Allergies: No Known Allergies (Unverified , 06/24/19) Objective Last 24 Hour Vital Signs Date Time Temp Pulse Resp B/P (MAP) Pulse Ox O2 Delivery O2 Flow Rate FiO2 09/18/19 08:30 97.9 99 22 113/54 (73) 99 09/18/19 04:00 101 09/18/19 04:00 98.2 101 18 140/73 (95) 99 09/18/19 00:00 97.7 98 18 135/76 (95) 98 09/18/19 00:00 98 09/17/19 21:24 85 149/64 09/17/19 21:00 Room Air 09/17/19 20:00 98.3 99 18 146/69 (94) 98 09/17/19 20:00 90 09/17/19 16:00 90 09/17/19 16:00 97.9 90 18 125/54 (77) 97 09/17/19 12:00 91 09/17/19 12:00 98.1 91 20 117/51 (73) 97 09/17/19 09:22 98 132/57 Intake and Output 09/17/19 09/18/19 19:00 07:00 Intake Total 40 ml 570 ml Output Total 200 ml 1000 ml Balance -160 ml -430 ml Free Water 50 ml Tube Feeding 40 ml 520 ml Output Urine Total 200 ml Hemodialysis UF 1000 ml Laboratory Tests 09/17/19 10:50: White Blood Count 11.9H, Red Blood Count 3.67L, Hemoglobin 10.9L, Hematocrit 31.7L, Mean Corpuscular Volume 86, Mean Corpuscular Hemoglobin 29.6, Mean Corpuscular Hemoglobin Concent 34.3, Red Cell Distribution Width 13.6, Platelet Count 230, Mean Platelet Volume 7.0, Neutrophils (%) (Auto) 63.8, Lymphocytes (% ) (Auto) 24.3, Monocytes (%) (Auto) 8.8, Eosinophils (%) (Auto) 2.4, Basophils ( %) (Auto) 0.7 09/18/19 05:00: White Blood Count 12.9H, Red Blood Count 3.81L, Hemoglobin 11.2L, Hematocrit 32.9L, Mean Corpuscular Volume 86, Mean Corpuscular Hemoglobin 29.3, Mean Corpuscular Hemoglobin Concent 33.9, Red Cell Distribution Width 13.2, Platelet Count 268, Mean Platelet Volume 6.7, Neutrophils (%) (Auto) 63.6, Lymphocytes (% ) (Auto) 25.7, Monocytes (%) (Auto) 7.0, Eosinophils (%) (Auto) 3.1H, Basophils (%) (Auto) 0.7, Sodium Level 137, Potassium Level 4.0, Chloride Level 98, Carbon Dioxide Level 32, Anion Gap 7, Blood Urea Nitrogen 74H, Creatinine 4.1H, Estimat Glomerular Filtration Rate 12.4, Glucose Level 128H, Calcium Level 9.7, Total Bilirubin 0.5, Aspartate Amino Transf (AST/SGOT) 28, Alanine Aminotransferase (ALT/SGPT) 27, Alkaline Phosphatase 78, Total Protein 6.6, Albumin 2.4L, Globulin 4.2, Albumin/Globulin Ratio 0.6L Height (Feet): 5 Height (Inches): 6.00 Weight (Pounds): 117 General Appearance: no apparent distress EENT: normal ENT inspection Neck: supple Cardiovascular: normal rate Respiratory/Chest: decreased breath sounds Abdomen: normal bowel sounds, non tender, soft Extremities: non-tender Jun Mena MD September 18, 2019 09:16
--- NOTE | 2019-09-18 10:47 | Nephrology Progress Note ---
Assessment/Plan Plan #ESRD on HD TT- #anemia of CKD #UTI #dysphagia s/p PEG #multiple pressure wounds #HTN - plan for HD today - hemoglobin stable - STRICT I&Os - daily weights - replete lytes - prbc transfusion for hemoglobin < 7 - increased epo to 6k TIW - IV iron - monitor CBC - on vancomycin and meropenem - continue coreg 6.25mg BID - replete phos - monitor mag, phos and BMP daily Time spent 45 min > 50% on care coordination and counseling Subjective ROS Limited/Unobtainable: Yes Subjective Labs reviewed plan for Hd today hemoglobin stable Objective Objective Last 24 Hour Vital Signs Date Time Temp Pulse Resp B/P (MAP) Pulse Ox O2 Delivery O2 Flow Rate FiO2 09/18/19 09:00 99 113/54 09/18/19 08:30 97.9 99 22 113/54 (73) 99 09/18/19 04:00 101 09/18/19 04:00 98.2 101 18 140/73 (95) 99 09/18/19 00:00 97.7 98 18 135/76 (95) 98 09/18/19 00:00 98 09/17/19 21:24 85 149/64 09/17/19 21:00 Room Air 09/17/19 20:00 98.3 99 18 146/69 (94) 98 09/17/19 20:00 90 09/17/19 16:00 90 09/17/19 16:00 97.9 90 18 125/54 (77) 97 09/17/19 12:00 91 09/17/19 12:00 98.1 91 20 117/51 (73) 97 Intake and Output 09/17/19 09/18/19 19:00 07:00 Intake Total 40 ml 570 ml Output Total 200 ml 1000 ml Balance -160 ml -430 ml Free Water 50 ml Tube Feeding 40 ml 520 ml Output Urine Total 200 ml Hemodialysis UF 1000 ml Laboratory Tests 09/17/19 10:50: White Blood Count 11.9H, Red Blood Count 3.67L, Hemoglobin 10.9L, Hematocrit 31.7L, Mean Corpuscular Volume 86, Mean Corpuscular Hemoglobin 29.6, Mean Corpuscular Hemoglobin Concent 34.3, Red Cell Distribution Width 13.6, Platelet Count 230, Mean Platelet Volume 7.0, Neutrophils (%) (Auto) 63.8, Lymphocytes (% ) (Auto) 24.3, Monocytes (%) (Auto) 8.8, Eosinophils (%) (Auto) 2.4, Basophils ( %) (Auto) 0.7 09/18/19 05:00: White Blood Count 12.9H, Red Blood Count 3.81L, Hemoglobin 11.2L, Hematocrit 32.9L, Mean Corpuscular Volume 86, Mean Corpuscular Hemoglobin 29.3, Mean Corpuscular Hemoglobin Concent 33.9, Red Cell Distribution Width 13.2, Platelet Count 268, Mean Platelet Volume 6.7, Neutrophils (%) (Auto) 63.6, Lymphocytes (% ) (Auto) 25.7, Monocytes (%) (Auto) 7.0, Eosinophils (%) (Auto) 3.1H, Basophils (%) (Auto) 0.7, Sodium Level 137, Potassium Level 4.0, Chloride Level 98, Carbon Dioxide Level 32, Anion Gap 7, Blood Urea Nitrogen 74H, Creatinine 4.1H, Estimat Glomerular Filtration Rate 12.4, Glucose Level 128H, Calcium Level 9.7, Total Bilirubin 0.5, Aspartate Amino Transf (AST/SGOT) 28, Alanine Aminotransferase (ALT/SGPT) 27, Alkaline Phosphatase 78, Total Protein 6.6, Albumin 2.4L, Globulin 4.2, Albumin/Globulin Ratio 0.6L Height (Feet): 5 Height (Inches): 6.00 Weight (Pounds): 117 Objective General Appearance: confused, cachetic, thin Lines, tubes and drains: peripheral HEENT: normocephalic, atraumatic Respiratory/Chest: chest wall non-tender, no respiratory distress Cardiovascular/Chest: normal peripheral pulses Abdomen: feeding tube Extremities: non-pitting, no cyanosis, other - unable to move extremities. Skin Exam: other - pressure ulcers Rory Oconnor M.D. September 18, 2019 10:47
--- NOTE | 2019-09-18 11:04 | Pulmonology Progress Note ---
Subjective ROS Limited/Unobtainable: Yes Interval Events: None new Constitutional: Reports: fatigue; Denies: fever Gastrointestinal/Abdominal: Denies: nausea, vomiting, diarrhea Psychiatric: Denies: depression Skin: Denies: rash Musculoskeletal: Denies: pain Allergies: Coded Allergies: No Known Allergies (Unverified , 06/24/19) All Systems: reviewed and negative except above - All 12 point ROS negative Objective Last 24 Hour Vital Signs Date Time Temp Pulse Resp B/P (MAP) Pulse Ox O2 Delivery O2 Flow Rate FiO2 09/18/19 09:00 99 113/54 09/18/19 08:30 97.9 99 22 113/54 (73) 99 09/18/19 04:00 101 09/18/19 04:00 98.2 101 18 140/73 (95) 99 09/18/19 00:00 97.7 98 18 135/76 (95) 98 09/18/19 00:00 98 09/17/19 21:24 85 149/64 09/17/19 21:00 Room Air 09/17/19 20:00 98.3 99 18 146/69 (94) 98 09/17/19 20:00 90 09/17/19 16:00 90 09/17/19 16:00 97.9 90 18 125/54 (77) 97 09/17/19 12:00 91 09/17/19 12:00 98.1 91 20 117/51 (73) 97 Intake and Output 09/17/19 09/18/19 19:00 07:00 Intake Total 40 ml 570 ml Output Total 200 ml 1000 ml Balance -160 ml -430 ml Free Water 50 ml Tube Feeding 40 ml 520 ml Output Urine Total 200 ml Hemodialysis UF 1000 ml General Appearance: no acute distress HEENT: normocephalic Respiratory: chest wall non-tender, lungs clear Cardiovascular: normal peripheral pulses, normal rate Abdomen: normal bowel sounds Laboratory Tests 09/18/19 05:00: White Blood Count 12.9H, Red Blood Count 3.81L, Hemoglobin 11.2L, Hematocrit 32.9L, Mean Corpuscular Volume 86, Mean Corpuscular Hemoglobin 29.3, Mean Corpuscular Hemoglobin Concent 33.9, Red Cell Distribution Width 13.2, Platelet Count 268, Mean Platelet Volume 6.7, Neutrophils (%) (Auto) 63.6, Lymphocytes (% ) (Auto) 25.7, Monocytes (%) (Auto) 7.0, Eosinophils (%) (Auto) 3.1H, Basophils (%) (Auto) 0.7, Sodium Level 137, Potassium Level 4.0, Chloride Level 98, Carbon Dioxide Level 32, Anion Gap 7, Blood Urea Nitrogen 74H, Creatinine 4.1H, Estimat Glomerular Filtration Rate 12.4, Glucose Level 128H, Calcium Level 9.7, Total Bilirubin 0.5, Aspartate Amino Transf (AST/SGOT) 28, Alanine Aminotransferase (ALT/SGPT) 27, Alkaline Phosphatase 78, Total Protein 6.6, Albumin 2.4L, Globulin 4.2, Albumin/Globulin Ratio 0.6L Current Medications Medications (Trade) Dose Ordered Sig/Joan Route PRN Reason Start Time Stop Time Status Last Admin Dose Admin Acetaminophen (Tylenol) 650 mg Q4H PRN GT Mild Pain (Pain Scale 1-3) 09/08/19 06:15 10/08/19 03:29 09/17/19 02:46 Atorvastatin Calcium (Lipitor) 10 mg BEDTIME GT 09/08/19 21:00 12/07/19 20:59 09/17/19 21:25 Carvedilol (Coreg) 6.25 mg EVERY 12 HOURS GT 09/08/19 09:00 10/08/19 08:59 09/18/19 09:00 Epoetin Dion (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)) 6,000 unit MON-MON-MON SUBQ 09/11/19 21:00 12/08/19 20:59 09/13/19 20:33 Gabapentin (Neurontin) 300 mg THREE TIMES A DAY GT 09/08/19 09:00 10/08/19 08:59 09/18/19 09:00 Heparin Sodium (Porcine) (Heparin 5000 units/ml) 5,000 units EVERY 12 HOURS SUBQ 09/17/19 15:43 11/01/19 15:42 09/18/19 09:00 Loperamide HCl (Imodium) 2 mg Q6H PRN GT Diarrhea 09/13/19 17:30 10/13/19 17:29 09/18/19 09:35 Meropenem 500 mg/ Sodium Chloride 55 ml @ 110 mls/hr Q24H IVPB 09/09/19 16:00 09/18/19 16:59 09/17/19 15:41 Morphine Sulfate (Morphine Sulfate) 1 mg Q4H PRN IVP For Pain 09/15/19 11:30 09/22/19 11:29 09/16/19 21:12 Vancomycin HCl (Vanco rx to dose) 1 ea DAILY PRN MISC Per rx protocol 09/09/19 13:00 10/09/19 12:59 Assessment/Plan Assessment/Plan IMPRESSION: 1. UTI. 2. Anemia. 3. ESRD, on dialysis. 4. Initial COVID-19 negative. DISCUSSION: Continue current medications and care. Initial COVID-19 pcr negative Blood transfusion. Empiric antibiotics. Hemodialysis. Saturating well on RA I will follow carefully. Ross Nina Omar Syed MD September 18, 2019 11:04
[2019-09-18 12:00] VITALS: BP 107/61
[2019-09-18] MEDS: Acetaminophen 650mg/20.3ml GT PRN (12:28)
[2019-09-18 16:00] VITALS: BP 120/51
--- NOTE | 2019-09-18 16:16 | Cardiac Electrophysiology PN ---
Assessment/Plan Assessment/Plan 1. BNP of more than 6000. On HD . EF 65%. Ruled out for PA On HD 2. Hypertension. Continue Coreg 6.25 mg b.i.d. and HD 3. Elevated white count and UTI. On Abx per Dr. Rosado. 4. Dysphagia, status post PEG placement. 5. Dementia. 6. ESRD on HD per Dr. Bowen. 7. Severe anemia Hb 6.9, S/P 2 units of PRBC DW RN SNIF placement pending Subjective Subjective Nonverbal. First Covid on 09/06 was negative. Had HD today. DC to SNIF pending Objective Last 24 Hour Vital Signs Date Time Temp Pulse Resp B/P (MAP) Pulse Ox O2 Delivery O2 Flow Rate FiO2 09/18/19 09:00 99 113/54 09/18/19 08:30 97.9 99 22 113/54 (73) 99 09/18/19 04:00 101 09/18/19 04:00 98.2 101 18 140/73 (95) 99 09/18/19 00:00 97.7 98 18 135/76 (95) 98 09/18/19 00:00 98 09/17/19 21:24 85 149/64 09/17/19 21:00 Room Air 09/17/19 20:00 98.3 99 18 146/69 (94) 98 09/17/19 20:00 90 Intake and Output 09/17/19 09/18/19 19:00 07:00 Intake Total 40 ml 570 ml Output Total 200 ml 1000 ml Balance -160 ml -430 ml Free Water 50 ml Tube Feeding 40 ml 520 ml Output Urine Total 200 ml Hemodialysis UF 1000 ml Laboratory Tests Test 09/18/19 05:00 White Blood Count 12.9 K/UL (4.8-10.8) H Red Blood Count 3.81 M/UL (4.20-5.40) L Hemoglobin 11.2 G/DL (12.0-16.0) L Hematocrit 32.9 % (37.0-47.0) L Mean Corpuscular Volume 86 FL (80-99) Mean Corpuscular Hemoglobin 29.3 PG (27.0-31.0) Mean Corpuscular Hemoglobin Concent 33.9 G/DL (32.0-36.0) Red Cell Distribution Width 13.2 % (11.6-14.8) Platelet Count 268 K/UL (150-450) Mean Platelet Volume 6.7 FL (6.5-10.1) Neutrophils (%) (Auto) 63.6 % (45.0-75.0) Lymphocytes (%) (Auto) 25.7 % (20.0-45.0) Monocytes (%) (Auto) 7.0 % (1.0-10.0) Eosinophils (%) (Auto) 3.1 % (0.0-3.0) H Basophils (%) (Auto) 0.7 % (0.0-2.0) Sodium Level 137 MMOL/L (136-145) Potassium Level 4.0 MMOL/L (3.5-5.1) Chloride Level 98 MMOL/L (98-107) Carbon Dioxide Level 32 MMOL/L (21-32) Anion Gap 7 mmol/L (5-15) Blood Urea Nitrogen 74 mg/dL (7-18) H Creatinine 4.1 MG/DL (0.55-1.30) H Estimat Glomerular Filtration Rate 12.4 mL/min (>60) Glucose Level 128 MG/DL (74-106) H Calcium Level 9.7 MG/DL (8.5-10.1) Total Bilirubin 0.5 MG/DL (0.2-1.0) Aspartate Amino Transf (AST/SGOT) 28 U/L (15-37) Alanine Aminotransferase (ALT/SGPT) 27 U/L (12-78) Alkaline Phosphatase 78 U/L (46-116) Total Protein 6.6 G/DL (6.4-8.2) Albumin 2.4 G/DL (3.4-5.0) L Globulin 4.2 g/dL Albumin/Globulin Ratio 0.6 (1.0-2.7) L Objective HEAD AND NECK: Shows no JVD. LUNGS: Coarse rhonchi. CARDIOVASCULAR: Shows regular S1 and S2 with no gallop. ABDOMEN: Status post G-tube. EXTREMITIES: No pitting edema. Cristopher Osman MD September 18, 2019 16:16
--- NOTE | 2019-09-18 16:36 | Internal Med Progress Note ---
Subjective Date of Service: September 18, 2019 Physician Name Wendy Denny Attending Physician Meera Frederick MD Current Medications Medications (Trade) Dose Ordered Sig/Joan Route PRN Reason Start Time Stop Time Status Last Admin Dose Admin Acetaminophen (Tylenol) 650 mg Q4H PRN GT Mild Pain (Pain Scale 1-3) 09/08/19 06:15 10/08/19 03:29 09/18/19 12:28 Atorvastatin Calcium (Lipitor) 10 mg BEDTIME GT 09/08/19 21:00 12/07/19 20:59 09/17/19 21:25 Carvedilol (Coreg) 6.25 mg EVERY 12 HOURS GT 09/08/19 09:00 10/08/19 08:59 09/18/19 09:00 Epoetin Dion (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)) 4,000 unit MON-MON-MON SUBQ 09/18/19 21:00 12/17/19 20:59 Gabapentin (Neurontin) 300 mg THREE TIMES A DAY GT 09/08/19 09:00 10/08/19 08:59 09/18/19 12:26 Heparin Sodium (Porcine) (Heparin 5000 units/ml) 5,000 units EVERY 12 HOURS SUBQ 09/17/19 15:43 11/01/19 15:42 09/18/19 09:00 Loperamide HCl (Imodium) 2 mg Q6H PRN GT Diarrhea 09/13/19 17:30 10/13/19 17:29 09/18/19 09:35 Meropenem 500 mg/ Sodium Chloride 55 ml @ 110 mls/hr Q24H IVPB 09/09/19 16:00 09/18/19 16:59 09/17/19 15:41 Morphine Sulfate (Morphine Sulfate) 1 mg Q4H PRN IVP For Pain 09/15/19 11:30 09/22/19 11:29 09/16/19 21:12 Vancomycin HCl (Vanco rx to dose) 1 ea DAILY PRN MISC Per rx protocol 09/09/19 13:00 10/09/19 12:59 Allergies: Coded Allergies: No Known Allergies (Unverified , 06/24/19) Subjective No acute events pending placement; patient is stable. Labs and vitals reviewed. Objective Last Vital Signs Date Time Temp Pulse Resp B/P (MAP) Pulse Ox O2 Delivery O2 Flow Rate FiO2 09/18/19 16:00 90 09/18/19 16:00 98.6 20 120/51 (74) 99 09/18/19 09:00 Room Air Laboratory Tests Test 09/18/19 05:00 White Blood Count 12.9 K/UL (4.8-10.8) H Red Blood Count 3.81 M/UL (4.20-5.40) L Hemoglobin 11.2 G/DL (12.0-16.0) L Hematocrit 32.9 % (37.0-47.0) L Mean Corpuscular Volume 86 FL (80-99) Mean Corpuscular Hemoglobin 29.3 PG (27.0-31.0) Mean Corpuscular Hemoglobin Concent 33.9 G/DL (32.0-36.0) Red Cell Distribution Width 13.2 % (11.6-14.8) Platelet Count 268 K/UL (150-450) Mean Platelet Volume 6.7 FL (6.5-10.1) Neutrophils (%) (Auto) 63.6 % (45.0-75.0) Lymphocytes (%) (Auto) 25.7 % (20.0-45.0) Monocytes (%) (Auto) 7.0 % (1.0-10.0) Eosinophils (%) (Auto) 3.1 % (0.0-3.0) H Basophils (%) (Auto) 0.7 % (0.0-2.0) Sodium Level 137 MMOL/L (136-145) Potassium Level 4.0 MMOL/L (3.5-5.1) Chloride Level 98 MMOL/L (98-107) Carbon Dioxide Level 32 MMOL/L (21-32) Anion Gap 7 mmol/L (5-15) Blood Urea Nitrogen 74 mg/dL (7-18) H Creatinine 4.1 MG/DL (0.55-1.30) H Estimat Glomerular Filtration Rate 12.4 mL/min (>60) Glucose Level 128 MG/DL (74-106) H Calcium Level 9.7 MG/DL (8.5-10.1) Total Bilirubin 0.5 MG/DL (0.2-1.0) Aspartate Amino Transf (AST/SGOT) 28 U/L (15-37) Alanine Aminotransferase (ALT/SGPT) 27 U/L (12-78) Alkaline Phosphatase 78 U/L (46-116) Total Protein 6.6 G/DL (6.4-8.2) Albumin 2.4 G/DL (3.4-5.0) L Globulin 4.2 g/dL Albumin/Globulin Ratio 0.6 (1.0-2.7) L Intake and Output 09/17/19 09/18/19 19:00 07:00 Intake Total 40 ml 570 ml Output Total 200 ml 1000 ml Balance -160 ml -430 ml Free Water 50 ml Tube Feeding 40 ml 520 ml Output Urine Total 200 ml Hemodialysis UF 1000 ml Objective EENT: PERRL/EOMI Cardiovascular: normal rate, regular rhythm Respiratory/Chest: lungs clear, normal breath sounds, no respiratory distress Abdomen: non tender, soft Extremities: other - Diffuse contractures Neurologic: alert Skin: warm/dry, other - Feet w/ bilateral wound bandages Assessment/Plan Assessment/Plan Assessment #ESRD on HD #Anemia of Chronic Disease #Sepsis 2/2 Klebsiella UTI and VRE Bacteremia #Type II PR demand Ischemia, HTN #Dementia, Peg tube dependent, Functional Quadriplegia and associated associated pressure ulcers Plan All issues at present time are stable; currently pending bed at SNF. Continue Meropenem and Vancomycin until 10 days course complete. HD as scheduled w/ epogen dosing. Coreg, ASA, Atorvastatin. DVT ppx, supportive measures. Tube Feeds. Appreciate Consultants. Will downgrade to med surg Wendy Denny D.O. September 18, 2019 16:36
--- NOTE | 2019-09-18 17:25 | Surgery Progress Note ---
Surgery Progress Note Subjective Additional Comments no acute events exam stable comfortable Objective Last 24 Hour Vital Signs Date Time Temp Pulse Resp B/P (MAP) Pulse Ox O2 Delivery O2 Flow Rate FiO2 09/18/19 16:00 90 09/18/19 16:00 98.6 108 20 120/51 (74) 99 09/18/19 12:00 101 09/18/19 12:00 97.6 99 22 107/61 (76) 99 09/18/19 09:00 Room Air 09/18/19 09:00 99 113/54 09/18/19 08:30 97.9 99 22 113/54 (73) 99 09/18/19 08:00 106 09/18/19 04:00 101 09/18/19 04:00 98.2 101 18 140/73 (95) 99 09/18/19 00:00 97.7 98 18 135/76 (95) 98 09/18/19 00:00 98 09/17/19 21:24 85 149/64 09/17/19 21:00 Room Air 09/17/19 20:00 98.3 99 18 146/69 (94) 98 09/17/19 20:00 90 I&O Intake and Output 09/17/19 09/18/19 19:00 07:00 Intake Total 40 ml 570 ml Output Total 200 ml 1000 ml Balance -160 ml -430 ml Free Water 50 ml Tube Feeding 40 ml 520 ml Output Urine Total 200 ml Hemodialysis UF 1000 ml Dressing: other Wound: other Drains: other Cardiovascular: RSR Respiratory: decreased breath sounds Abdomen: soft, non-tender, present bowel sounds Extremities: no cyanosis Laboratory Tests Test 09/18/19 05:00 White Blood Count 12.9 K/UL (4.8-10.8) H Red Blood Count 3.81 M/UL (4.20-5.40) L Hemoglobin 11.2 G/DL (12.0-16.0) L Hematocrit 32.9 % (37.0-47.0) L Mean Corpuscular Volume 86 FL (80-99) Mean Corpuscular Hemoglobin 29.3 PG (27.0-31.0) Mean Corpuscular Hemoglobin Concent 33.9 G/DL (32.0-36.0) Red Cell Distribution Width 13.2 % (11.6-14.8) Platelet Count 268 K/UL (150-450) Mean Platelet Volume 6.7 FL (6.5-10.1) Neutrophils (%) (Auto) 63.6 % (45.0-75.0) Lymphocytes (%) (Auto) 25.7 % (20.0-45.0) Monocytes (%) (Auto) 7.0 % (1.0-10.0) Eosinophils (%) (Auto) 3.1 % (0.0-3.0) H Basophils (%) (Auto) 0.7 % (0.0-2.0) Sodium Level 137 MMOL/L (136-145) Potassium Level 4.0 MMOL/L (3.5-5.1) Chloride Level 98 MMOL/L (98-107) Carbon Dioxide Level 32 MMOL/L (21-32) Anion Gap 7 mmol/L (5-15) Blood Urea Nitrogen 74 mg/dL (7-18) H Creatinine 4.1 MG/DL (0.55-1.30) H Estimat Glomerular Filtration Rate 12.4 mL/min (>60) Glucose Level 128 MG/DL (74-106) H Calcium Level 9.7 MG/DL (8.5-10.1) Total Bilirubin 0.5 MG/DL (0.2-1.0) Aspartate Amino Transf (AST/SGOT) 28 U/L (15-37) Alanine Aminotransferase (ALT/SGPT) 27 U/L (12-78) Alkaline Phosphatase 78 U/L (46-116) Total Protein 6.6 G/DL (6.4-8.2) Albumin 2.4 G/DL (3.4-5.0) L Globulin 4.2 g/dL Albumin/Globulin Ratio 0.6 (1.0-2.7) L Plan Problems: (1) COVID-19 ruled out Assessment & Plan: FINDINGS: Lungs: Left basilar opacity with volume loss, likely atelectasis however a focus of infection could have a similar appearance. Pleural space: No pleural effusion. No pneumothorax. Heart: Unremarkable. No cardiomegaly. Bones/joints: No fracture. Vasculature: Atherosclerotic calcifications. Tubes, lines and devices: Right IJ large bore dialysis catheter terminates within the right atrium. IMPRESSION: Left basilar opacity with volume loss, likely atelectasis however a focus of infection could have a similar appearance. leukocytosis anemia pending test (2) Protein calorie malnutrition Assessment & Plan: DAILY ESTIMATED NEEDS: Needs based on Wounds, HD 57kg 30-35 kcals/kg 2206-2966 total kcals 1.25-1.8 g protein/kg 71-103 g total protein Fluids per NUTRITION DIAGNOSIS: * Increased kcal and prot needs r/t wound healing and renal failure as evidenced by w/ multiple pressure injuries, including full thickness and unstageable wounds, refer to MD reports, pt w/ ESRD on HD, GT dep. CURRENT TF:Nepro @ 40ml/hr x 20 hrs ENTERAL NUTRITION RECOMMENDATIONS: Nepro @ 45ml/hr x 22 hrs to provide 990ml, 1782kcal, 80g prot, 720ml free water - Rec to INCREASE RATE AND RUNNING TIME ABOVE to better meet est kcal and pro needs - HOB over 30 degrees/ water flush per ADDITIONAL RECOMMENDATIONS: 1) Calibrated bedscale wt 2) Wound Care: add Nephrovite x 1 add Saw 1ptk BID via GT 3) Monitor BGs, consider NISS: BGs consistently mildly elevated 4) Monitor lytes and renal fxn (3) Pressure ulcer (4) Decubitus skin ulcer Assessment & Plan: Pt presented on admission with multiple Pressure injuries. Full thickness Pressure Injury R shoulder(L)2.8cm x (W)2cm. Base of wound is 75 % slough, 25% beefy red granulation. Slough removed with gentle friction. Post removal of slough,small amt slough at base of wound. Small amt sanguineous exudate. Edges flat and adherent to base of wound. Periwound without erythema, induration or fluctuance. Darker skin tone without induration ,fluctuance or tenderness at sacrococcygeal area. Non-blanching erythema and scattered areas of hyperpigmentation noted to R and L gluteal cheeks. Pt denied tenderness when affected areas palpated. Full thickness Pressure injury R hip (L)5.5cm x (W)10.2cm x (D)2.6cm. Base of wound is 75% pink granulation,25% Loose fibrinous slough. Bone is palpable.Edges flat ,pink and adherent to base of wound. Small amt. non-odorous serous exudate. Hypopigmentation noted to perineum and labia majora. Unstageable Pressure Injury R heel(L)3.5cm x (W)3.3cm . Base of wound is 100% necrotic with semidetached with surrounding yellow slough. Edges area dry, black. Periwound is non-blanchable and fluctuant. Maroon discoloration with fluctuance noted to distal/lateral R foot (L)2.8cm x ( W)2.5cm. Resolving pressure injury R Hallux(L)3.5cm x (W)3.3cm.[place] epithelial at base of wound with surrounding dry brown borders. L heel is boggy with non-blanching erythema.Historical scarring from previous wounds noted. Unstageable Pressure Injury L hallux(L)3.5cm x (W)2.8cm. Base of wound has 90% loose necrotic cap,surrounding slough. Loose necrotic cap easily removed with saline moistened gauze. At base of wound is 100% yellow slough, marginal erythema with small area of necrosis noted along borders. Small amt seropurulent non-odorous exudate noted. Stable dry necrosis at L st metatarsal head. Tx.Plan: Cleanse wound R shoulder with Saline. Apply Therahoney. Apply Cavilon Skin Barrier periwound. Cover with Optifoam drsg. Change every 3 days and prn. Cleanse R hip with Saline. Loosely pack with Therahoney impregnated Kerlix. Apply Moisture Barrier Paste periwound. Cover with Optifoam drsg. Change Daily and prn. Apply Moisture Barrier Paste to Sacrum. Cover with Optifoam drsg. Change every 3 days and prn. Apply Betadine to R heel, R hallux,Distal/lateral R foot. Cover with Abd pad and wrap with Kerlix every 3 days and prn. Apply Betadine to L hallux,L 1st metatarsal head,L heel. Cover with Abd pads and wrap with Kerlix every 3 days and prn. Reposition Back to L Side at least every 2hours or as tolerated. Place Pillow between knees. Off-load heels with pillow. APM/TIEN Mattress overlay. (5) Suspected COVID-19 virus infection (6) Anemia Assessment & Plan: transfused prbc h/h stable trend labs Anshul Nava September 18, 2019 17:25
[2019-09-18] MEDS: Meropenem 500mg/NS 55ml IVPB SCH ×2 (18:08)
[2019-09-18] MEDS ORDERED: Acetaminophen 650mg/20.3ml GT PRN (19:30)
[2019-09-18 20:00] VITALS: BP 112/66
[2019-09-18] MEDS: Epoetin Alfa-EPBX(ESRD on dialysis)4000 units/ml vial SUBQ SCH (20:47)
[2019-09-18] MEDS ORDERED: Epoetin Alfa-EPBX(ESRD on dialysis)4000 units/ml vial SUBQ SCH (21:00)
[2019-09-19] VITALS: BP 120/58
[2019-09-19 04:00] VITALS: BP 140/66
[2019-09-19 06:21] LABS: BASOPHILS % (AUTO) 0.7 % (0.0-2.0); EOSINOPHILS % (AUTO) 2.9 % (0.0-3.0); HEMATOCRIT 32.3 % (37.0-47.0); HEMOGLOBIN 10.7 G/DL (12.0-16.0); LYMPHOCYTES % (AUTO) 25.2 % (20.0-45.0); MEAN CORPUSCULAR VOLUME 89 FL (80-99); MONOCYTES % (AUTO) 7.2 % (1.0-10.0); PLATELET COUNT 289 K/UL (150-450); RED BLOOD COUNT 3.64 M/UL (4.20-5.40); RED CELL DISTRIBUTION WIDTH 13.8 % (11.6-14.8); WHITE BLOOD COUNT 12.7 K/UL (4.8-10.8)
[2019-09-19 06:57] LABS: PHOSPHORUS 2.6 MG/DL (2.5-4.9)
[2019-09-19 07:03] LABS: ALBUMIN 2.4 G/DL (3.4-5.0); ALBUMIN/GLOBULIN RATIO 0.6 (1.0-2.7); ALKALINE PHOSPHATASE 80 U/L (46-116); ANION GAP 7 mmol/L (5-15); ASPARTATE AMINO TRANSFERASE 18 U/L (15-37); BILIRUBIN,TOTAL 1.1 MG/DL (0.2-1.0); BLOOD UREA NITROGEN 58 mg/dL (7-18); CALCIUM 9.6 MG/DL (8.5-10.1); CARBON DIOXIDE 31 MMOL/L (21-32); CHLORIDE 101 MMOL/L (98-107); CREATININE 3.7 MG/DL (0.55-1.30); POTASSIUM 3.8 MMOL/L (3.5-5.1); SODIUM 139 MMOL/L (136-145)
[2019-09-19 07:08] LABS: BILIRUBIN,DIRECT 0.2 MG/DL (0.0-0.3)
[2019-09-19 07:15] LABS: ALANINE AMINOTRANSFERASE 30 U/L (12-78)
[2019-09-19 08:00] VITALS: BP 137/65
[2019-09-19] MEDS: Carvedilol 6.25mg Tab GT SCH ×2 (09:16→20:35)
[2019-09-19] MEDS: Heparin 5000 units/ml inj SUBQ SCH ×2 (09:18→20:40)
--- NOTE | 2019-09-19 10:35 | General Progress Note ---
Assessment/Plan Assessment/Plan: Assessment/Plan Status: stable Assessment/Plan: 1. End-stage renal disease, on hemodialysis. 2. Anemia iron def 3. Dysphagia, status post G-tube placement. 4. Pneumonia. 5. Pancreatic cyst. 6. Hypertension. 7. elevated CEA of 10 8. CAD 9. UTI chart from prior admissions reviewed iv iron repeat stool ob>> neg transfuse to keep HGB above 7 GTF 40 cc HD per nephrology will fu Subjective ROS Limited/Unobtainable: No Allergies: Coded Allergies: No Known Allergies (Unverified , 06/24/19) Objective Last 24 Hour Vital Signs Date Time Temp Pulse Resp B/P (MAP) Pulse Ox O2 Delivery O2 Flow Rate FiO2 09/19/19 09:16 108 137/65 09/19/19 09:00 Room Air 09/19/19 08:00 98.2 108 20 137/65 (89) 93 09/19/19 04:00 98.3 101 20 140/66 (90) 93 09/19/19 00:00 97.8 100 20 120/58 (78) 92 09/18/19 21:00 Room Air 09/18/19 20:47 98 112/66 09/18/19 20:00 97.9 98 18 112/66 (81) 93 09/18/19 16:00 90 09/18/19 16:00 98.6 108 20 120/51 (74) 99 09/18/19 12:00 101 09/18/19 12:00 97.6 99 22 107/61 (76) 99 Intake and Output 09/18/19 09/19/19 19:00 07:00 Intake Total 40 ml 580 ml Output Total 2000 ml 125 ml Balance -1960 ml 455 ml Free Water 140 ml Tube Feeding 40 ml 440 ml Output Urine Total 125 ml Hemodialysis UF 2000 ml Laboratory Tests 09/19/19 04:35: White Blood Count 12.7H, Red Blood Count 3.64L, Hemoglobin 10.7L, Hematocrit 32.3L, Mean Corpuscular Volume 89, Mean Corpuscular Hemoglobin 29.4, Mean Corpuscular Hemoglobin Concent 33.1, Red Cell Distribution Width 13.8, Platelet Count 289, Mean Platelet Volume 6.8, Neutrophils (%) (Auto) 64.0, Lymphocytes (% ) (Auto) 25.2, Monocytes (%) (Auto) 7.2, Eosinophils (%) (Auto) 2.9, Basophils ( %) (Auto) 0.7, Sodium Level 139, Potassium Level 3.8, Chloride Level 101, Carbon Dioxide Level 31, Anion Gap 7, Blood Urea Nitrogen 58H, Creatinine 3.7H, Estimat Glomerular Filtration Rate 13.9, Glucose Level 118H, Calcium Level 9.6, Phosphorus Level 2.6, Magnesium Level 2.4, Total Bilirubin 1.1H, Direct Bilirubin 0.2, Aspartate Amino Transf (AST/SGOT) 18, Alanine Aminotransferase ( ALT/SGPT) 30, Alkaline Phosphatase 80, Total Protein 6.7, Albumin 2.4L, Globulin 4.3, Albumin/Globulin Ratio 0.6L, Random Vancomycin Level 19.5 Height (Feet): 5 Height (Inches): 6.00 Weight (Pounds): 117 General Appearance: alert EENT: normal ENT inspection Neck: supple Cardiovascular: normal rate Respiratory/Chest: decreased breath sounds Abdomen: normal bowel sounds, non tender, soft Extremities: non-tender Jun Mena MD September 19, 2019 10:35
--- NOTE | 2019-09-19 10:36 | Surgery Progress Note ---
Surgery Progress Note Subjective Symptoms: improved Objective Last 24 Hour Vital Signs Date Time Temp Pulse Resp B/P (MAP) Pulse Ox O2 Delivery O2 Flow Rate FiO2 09/19/19 09:16 108 137/65 09/19/19 09:00 Room Air 09/19/19 08:00 98.2 108 20 137/65 (89) 93 09/19/19 04:00 98.3 101 20 140/66 (90) 93 09/19/19 00:00 97.8 100 20 120/58 (78) 92 09/18/19 21:00 Room Air 09/18/19 20:47 98 112/66 09/18/19 20:00 97.9 98 18 112/66 (81) 93 09/18/19 16:00 90 09/18/19 16:00 98.6 108 20 120/51 (74) 99 09/18/19 12:00 101 09/18/19 12:00 97.6 99 22 107/61 (76) 99 I&O Intake and Output 09/18/19 09/19/19 19:00 07:00 Intake Total 40 ml 580 ml Output Total 2000 ml 125 ml Balance -1960 ml 455 ml Free Water 140 ml Tube Feeding 40 ml 440 ml Output Urine Total 125 ml Hemodialysis UF 2000 ml Dressing: other Wound: other Drains: other Cardiovascular: RSR Respiratory: decreased breath sounds Abdomen: soft, non-tender, present bowel sounds Extremities: no cyanosis Laboratory Tests Test 09/19/19 04:35 White Blood Count 12.7 K/UL (4.8-10.8) H Red Blood Count 3.64 M/UL (4.20-5.40) L Hemoglobin 10.7 G/DL (12.0-16.0) L Hematocrit 32.3 % (37.0-47.0) L Mean Corpuscular Volume 89 FL (80-99) Mean Corpuscular Hemoglobin 29.4 PG (27.0-31.0) Mean Corpuscular Hemoglobin Concent 33.1 G/DL (32.0-36.0) Red Cell Distribution Width 13.8 % (11.6-14.8) Platelet Count 289 K/UL (150-450) Mean Platelet Volume 6.8 FL (6.5-10.1) Neutrophils (%) (Auto) 64.0 % (45.0-75.0) Lymphocytes (%) (Auto) 25.2 % (20.0-45.0) Monocytes (%) (Auto) 7.2 % (1.0-10.0) Eosinophils (%) (Auto) 2.9 % (0.0-3.0) Basophils (%) (Auto) 0.7 % (0.0-2.0) Sodium Level 139 MMOL/L (136-145) Potassium Level 3.8 MMOL/L (3.5-5.1) Chloride Level 101 MMOL/L (98-107) Carbon Dioxide Level 31 MMOL/L (21-32) Anion Gap 7 mmol/L (5-15) Blood Urea Nitrogen 58 mg/dL (7-18) H Creatinine 3.7 MG/DL (0.55-1.30) H Estimat Glomerular Filtration Rate 13.9 mL/min (>60) Glucose Level 118 MG/DL (74-106) H Calcium Level 9.6 MG/DL (8.5-10.1) Phosphorus Level 2.6 MG/DL (2.5-4.9) Magnesium Level 2.4 MG/DL (1.8-2.4) Total Bilirubin 1.1 MG/DL (0.2-1.0) H Direct Bilirubin 0.2 MG/DL (0.0-0.3) Aspartate Amino Transf (AST/SGOT) 18 U/L (15-37) Alanine Aminotransferase (ALT/SGPT) 30 U/L (12-78) Alkaline Phosphatase 80 U/L (46-116) Total Protein 6.7 G/DL (6.4-8.2) Albumin 2.4 G/DL (3.4-5.0) L Globulin 4.3 g/dL Albumin/Globulin Ratio 0.6 (1.0-2.7) L Random Vancomycin Level 19.5 ug/mL Plan Problems: (1) COVID-19 ruled out Assessment & Plan: FINDINGS: Lungs: Left basilar opacity with volume loss, likely atelectasis however a focus of infection could have a similar appearance. Pleural space: No pleural effusion. No pneumothorax. Heart: Unremarkable. No cardiomegaly. Bones/joints: No fracture. Vasculature: Atherosclerotic calcifications. Tubes, lines and devices: Right IJ large bore dialysis catheter terminates within the right atrium. IMPRESSION: Left basilar opacity with volume loss, likely atelectasis however a focus of infection could have a similar appearance. leukocytosis anemia pending test (2) Protein calorie malnutrition Assessment & Plan: DAILY ESTIMATED NEEDS: Needs based on Wounds, HD 57kg 30-35 kcals/kg 6412-4856 total kcals 1.25-1.8 g protein/kg 71-103 g total protein Fluids per MD NUTRITION DIAGNOSIS: * Increased kcal and prot needs r/t wound healing and renal failure as evidenced by w/ multiple pressure injuries, including full thickness and unstageable wounds, refer to MD reports, pt w/ ESRD on HD, GT dep. CURRENT TF:Nepro @ 40ml/hr x 20 hrs ENTERAL NUTRITION RECOMMENDATIONS: Nepro @ 45ml/hr x 22 hrs to provide 990ml, 1782kcal, 80g prot, 720ml free water - Rec to INCREASE RATE AND RUNNING TIME ABOVE to better meet est kcal and pro needs - HOB over 30 degrees/ water flush per MD ADDITIONAL RECOMMENDATIONS: 1) Calibrated bedscale wt 2) Wound Care: add Nephrovite x 1 add Saw 1ptk BID via GT 3) Monitor BGs, consider NISS: BGs consistently mildly elevated 4) Monitor lytes and renal fxn (3) Pressure ulcer (4) Decubitus skin ulcer Assessment & Plan: Pt presented on admission with multiple Pressure injuries. Full thickness Pressure Injury R shoulder(L)2.8cm x (W)2cm. Base of wound is 75 % slough, 25% beefy red granulation. Slough removed with gentle friction. Post removal of slough,small amt slough at base of wound. Small amt sanguineous exudate. Edges flat and adherent to base of wound. Periwound without erythema, induration or fluctuance. Darker skin tone without induration ,fluctuance or tenderness at sacrococcygeal area. Non-blanching erythema and scattered areas of hyperpigmentation noted to R and L gluteal cheeks. Pt denied tenderness when affected areas palpated. Full thickness Pressure injury R hip (L)5.5cm x (W)10.2cm x (D)2.6cm. Base of wound is 75% pink granulation,25% Loose fibrinous slough. Bone is palpable.Edges flat ,pink and adherent to base of wound. Small amt. non-odorous serous exudate. Hypopigmentation noted to perineum and labia majora. Unstageable Pressure Injury R heel(L)3.5cm x (W)3.3cm . Base of wound is 100% necrotic with semidetached with surrounding yellow slough. Edges area dry, black. Periwound is non-blanchable and fluctuant. Maroon discoloration with fluctuance noted to distal/lateral R foot (L)2.8cm x ( W)2.5cm. Resolving pressure injury R Hallux(L)3.5cm x (W)3.3cm.Aneth epithelial at base of wound with surrounding dry brown borders. L heel is boggy with non-blanching erythema.Historical scarring from previous wounds noted. Unstageable Pressure Injury L hallux(L)3.5cm x (W)2.8cm. Base of wound has 90% loose necrotic cap,surrounding slough. Loose necrotic cap easily removed with saline moistened gauze. At base of wound is 100% yellow slough, marginal erythema with small area of necrosis noted along borders. Small amt seropurulent non-odorous exudate noted. Stable dry necrosis at L st metatarsal head. Tx.Plan: Cleanse wound R shoulder with Saline. Apply Therahoney. Apply Cavilon Skin Barrier periwound. Cover with Optifoam drsg. Change every 3 days and prn. Cleanse R hip with Saline. Loosely pack with Therahoney impregnated Kerlix. Apply Moisture Barrier Paste periwound. Cover with Optifoam drsg. Change Daily and prn. Apply Moisture Barrier Paste to Sacrum. Cover with Optifoam drsg. Change every 3 days and prn. Apply Betadine to R heel, R hallux,Distal/lateral R foot. Cover with Abd pad and wrap with Kerlix every 3 days and prn. Apply Betadine to L hallux,L 1st metatarsal head,L heel. Cover with Abd pads and wrap with Kerlix every 3 days and prn. Reposition Back to L Side at least every 2hours or as tolerated. Place Pillow between knees. Off-load heels with pillow. APM/TIEN Mattress overlay. (5) Suspected COVID-19 virus infection (6) Anemia Assessment & Plan: transfused prbc h/h stable trend labs Anshul Nava September 19, 2019 10:36
--- NOTE | 2019-09-19 10:48 | Nephrology Progress Note ---
Assessment/Plan Plan #ESRD on HD TT- #anemia of CKD #UTI #dysphagia s/p PEG #multiple pressure wounds #HTN - HD tomorroww - hemoglobin stable - STRICT I&Os - daily weights - replete lytes - prbc transfusion for hemoglobin < 7 - increased epo to 6k TIW - IV iron - monitor CBC - on vancomycin and meropenem - continue coreg 6.25mg BID - replete phos - monitor mag, phos and BMP daily Time spent 45 min > 50% on care coordination and counseling Subjective ROS Limited/Unobtainable: Yes Subjective Labs reviewed s/p HD yesterday hemoglobin stable DC planning Objective Objective Last 24 Hour Vital Signs Date Time Temp Pulse Resp B/P (MAP) Pulse Ox O2 Delivery O2 Flow Rate FiO2 09/19/19 09:16 108 137/65 09/19/19 09:00 Room Air 09/19/19 08:00 98.2 108 20 137/65 (89) 93 09/19/19 04:00 98.3 101 20 140/66 (90) 93 09/19/19 00:00 97.8 100 20 120/58 (78) 92 09/18/19 21:00 Room Air 09/18/19 20:47 98 112/66 09/18/19 20:00 97.9 98 18 112/66 (81) 93 09/18/19 16:00 90 09/18/19 16:00 98.6 108 20 120/51 (74) 99 09/18/19 12:00 101 09/18/19 12:00 97.6 99 22 107/61 (76) 99 Intake and Output 09/18/19 09/19/19 19:00 07:00 Intake Total 40 ml 580 ml Output Total 2000 ml 125 ml Balance -1960 ml 455 ml Free Water 140 ml Tube Feeding 40 ml 440 ml Output Urine Total 125 ml Hemodialysis UF 2000 ml Laboratory Tests 09/19/19 04:35: White Blood Count 12.7H, Red Blood Count 3.64L, Hemoglobin 10.7L, Hematocrit 32.3L, Mean Corpuscular Volume 89, Mean Corpuscular Hemoglobin 29.4, Mean Corpuscular Hemoglobin Concent 33.1, Red Cell Distribution Width 13.8, Platelet Count 289, Mean Platelet Volume 6.8, Neutrophils (%) (Auto) 64.0, Lymphocytes (% ) (Auto) 25.2, Monocytes (%) (Auto) 7.2, Eosinophils (%) (Auto) 2.9, Basophils ( %) (Auto) 0.7, Sodium Level 139, Potassium Level 3.8, Chloride Level 101, Carbon Dioxide Level 31, Anion Gap 7, Blood Urea Nitrogen 58H, Creatinine 3.7H, Estimat Glomerular Filtration Rate 13.9, Glucose Level 118H, Calcium Level 9.6, Phosphorus Level 2.6, Magnesium Level 2.4, Total Bilirubin 1.1H, Direct Bilirubin 0.2, Aspartate Amino Transf (AST/SGOT) 18, Alanine Aminotransferase ( ALT/SGPT) 30, Alkaline Phosphatase 80, Total Protein 6.7, Albumin 2.4L, Globulin 4.3, Albumin/Globulin Ratio 0.6L, Random Vancomycin Level 19.5 Height (Feet): 5 Height (Inches): 6.00 Weight (Pounds): 117 Objective General Appearance: confused, cachetic, thin Lines, tubes and drains: peripheral HEENT: normocephalic, atraumatic Respiratory/Chest: chest wall non-tender, no respiratory distress Cardiovascular/Chest: normal peripheral pulses Abdomen: feeding tube Extremities: non-pitting, no cyanosis, other - unable to move extremities. Skin Exam: other - pressure ulcers Rory Oconnor M.D. September 19, 2019 10:48
--- NOTE | 2019-09-19 11:26 | Discharge Summary ---
Discharge Summary Hospital Course Date of Admission September 07, 2019 at 20:39 Date of Discharge Admitting Diagnosis anemia/CRF dialysis HPI Patient is an 89-year-old female with history of ESRD on HD, dysphagia s/p PEG, multiple pressure wounds, HTN presenting from dialysis center after she was found to have serum hgb level of 6.0. Patient is non- verbal and immobile and resides at a NH. History is obtained from the ED physician and the medical chart. Of note [place] [facility] [place] and was received appropriate tx with antibiotics. On arrival to the ED, patient's vitals significant for B.P: 156/72mmhg. The CBC showed serum hgb: 7.4 The UA was significant for highly elevated WBC and RBC and 3+ LE. Patient is being admitted for further observation and medical management.s Hospital Course Assessment #ESRD on HD #Anemia of Chronic Disease/Blood transfusion requiring Anemia --> stabilized #Sepsis 2/2 Klebsiella UTI and VRE Bacteremia--> course complete w/ meropenem and vancomycin on 09/17 #Type II NM demand Ischemia, HTN--> resolved #Dementia, Peg tube dependent, Functional Quadriplegia and associated associated pressure ulcers #Pancreatic lesion; evaluated by Gi Plan All issues at present time are stable; currently pending bed at SNF. Continue Meropenem and Vancomycin until 10 days course complete. HD as scheduled w/ epogen dosing. Coreg, ASA, Atorvastatin. DVT ppx, supportive measures. Tube Feeds. [facility]. 09/18: Patient cleared for d/c to SNF. AB course complete. Continue HD as scheduled and medications for HTN. Wound care for pressure ulcers. Discharge Dx #ESRD on HD #Anemia of Chronic Disease #Sepsis secondary Klebsiella UTI and VRE Bacteremia- #Type II NM demand Ischemia, HTN #Dementia, Peg tube dependent, #Functional Quadriplegia and associated associated pressure ulcers #Pancreatic lesion Discharge Discharge Vital Signs Last Vital Signs Date Time Temp Pulse Resp B/P (MAP) Pulse Ox O2 Delivery O2 Flow Rate FiO2 09/19/19 09:16 108 137/65 09/19/19 09:00 Room Air 09/19/19 08:00 98.2 20 93 Discharge Disposition Patient was discharged to Wendy Denny D.O. September 19, 2019 11:26
[2019-09-19 12:00] VITALS: BP 136/62
--- NOTE | 2019-09-19 12:17 | Pulmonology Progress Note ---
Subjective ROS Limited/Unobtainable: No Interval Events: None new Constitutional: Reports: fatigue; Denies: fever Gastrointestinal/Abdominal: Denies: nausea, vomiting, diarrhea Psychiatric: Denies: depression Skin: Denies: rash Musculoskeletal: Denies: pain Allergies: Coded Allergies: No Known Allergies (Unverified , 06/24/19) All Systems: reviewed and negative except above - All 12 point ROS negative Objective Last 24 Hour Vital Signs Date Time Temp Pulse Resp B/P (MAP) Pulse Ox O2 Delivery O2 Flow Rate FiO2 09/19/19 09:16 108 137/65 09/19/19 09:00 Room Air 09/19/19 08:00 98.2 108 20 137/65 (89) 93 09/19/19 04:00 98.3 101 20 140/66 (90) 93 09/19/19 00:00 97.8 100 20 120/58 (78) 92 09/18/19 21:00 Room Air 09/18/19 20:47 98 112/66 09/18/19 20:00 97.9 98 18 112/66 (81) 93 09/18/19 16:00 90 09/18/19 16:00 98.6 108 20 120/51 (74) 99 Intake and Output 09/18/19 09/19/19 19:00 07:00 Intake Total 40 ml 580 ml Output Total 2000 ml 125 ml Balance -1960 ml 455 ml Free Water 140 ml Tube Feeding 40 ml 440 ml Output Urine Total 125 ml Hemodialysis UF 2000 ml General Appearance: no acute distress HEENT: normocephalic Respiratory: chest wall non-tender, lungs clear Cardiovascular: normal peripheral pulses, normal rate Abdomen: normal bowel sounds Laboratory Tests 09/19/19 04:35: White Blood Count 12.7H, Red Blood Count 3.64L, Hemoglobin 10.7L, Hematocrit 32.3L, Mean Corpuscular Volume 89, Mean Corpuscular Hemoglobin 29.4, Mean Corpuscular Hemoglobin Concent 33.1, Red Cell Distribution Width 13.8, Platelet Count 289, Mean Platelet Volume 6.8, Neutrophils (%) (Auto) 64.0, Lymphocytes (% ) (Auto) 25.2, Monocytes (%) (Auto) 7.2, Eosinophils (%) (Auto) 2.9, Basophils ( %) (Auto) 0.7, Sodium Level 139, Potassium Level 3.8, Chloride Level 101, Carbon Dioxide Level 31, Anion Gap 7, Blood Urea Nitrogen 58H, Creatinine 3.7H, Estimat Glomerular Filtration Rate 13.9, Glucose Level 118H, Calcium Level 9.6, Phosphorus Level 2.6, Magnesium Level 2.4, Total Bilirubin 1.1H, Direct Bilirubin 0.2, Aspartate Amino Transf (AST/SGOT) 18, Alanine Aminotransferase ( ALT/SGPT) 30, Alkaline Phosphatase 80, Total Protein 6.7, Albumin 2.4L, Globulin 4.3, Albumin/Globulin Ratio 0.6L, Random Vancomycin Level 19.5 Current Medications Medications (Trade) Dose Ordered Sig/Joan Route PRN Reason Start Time Stop Time Status Last Admin Dose Admin Acetaminophen (Tylenol) 650 mg Q4H PRN GT Mild Pain (Pain Scale 1-3) 09/18/19 19:30 10/08/19 19:29 Atorvastatin Calcium (Lipitor) 10 mg BEDTIME GT 09/18/19 21:00 12/07/19 20:59 09/18/19 20:47 Carvedilol (Coreg) 6.25 mg EVERY 12 HOURS GT 09/18/19 21:00 10/08/19 08:59 09/19/19 09:16 Epoetin Dion (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)) 4,000 unit MON-MON-MON SUBQ 09/18/19 21:00 12/17/19 20:59 09/18/19 20:47 Gabapentin (Neurontin) 300 mg THREE TIMES A DAY GT 09/19/19 09:00 10/19/19 08:59 09/19/19 09:16 Heparin Sodium (Porcine) (Heparin 5000 units/ml) 5,000 units EVERY 12 HOURS SUBQ 09/18/19 21:00 11/01/19 15:42 09/19/19 09:18 Loperamide HCl (Imodium) 2 mg Q6H PRN GT Diarrhea 09/18/19 19:30 10/13/19 19:29 Morphine Sulfate (Morphine Sulfate) 1 mg Q4H PRN IVP For Pain 09/18/19 19:30 09/22/19 11:29 Vancomycin HCl (Vanco pharmacy to dose) 1 ea DAILY PRN MISC Per rx protocol 09/19/19 09:00 10/09/19 12:59 Assessment/Plan Assessment/Plan IMPRESSION: 1. UTI. 2. Anemia. 3. ESRD, on dialysis. 4. Initial COVID-19 negative. DISCUSSION: Continue current medications and care. Initial COVID-19 pcr negative Blood transfusion. Empiric antibiotics. Hemodialysis. Saturating well on RA I will follow carefully. Ross Nina Omar Syed MD September 19, 2019 12:17
--- NOTE | 2019-09-19 15:51 | Cardiac Electrophysiology PN ---
Assessment/Plan Assessment/Plan 1. BNP of more than 6000. On HD . EF 65%. Ruled out for GA On HD 2. Hypertension. Continue Coreg 6.25 mg b.i.d. and HD 3. Recurrent fever and high WBC and UTI. On Abx per Dr. Rosado. 4. Dysphagia, status post PEG placement. 5. Dementia. 6. ESRD on HD per Dr. Bowen. 7. Severe anemia Hb 6.9, S/P 2 units of PRBC DW RN Subjective Subjective Nonverbal. DC to [facility] cancelled as had T 101.4.Covid negative x 2 Objective Last 24 Hour Vital Signs Date Time Temp Pulse Resp B/P (MAP) Pulse Ox O2 Delivery O2 Flow Rate FiO2 09/19/19 14:39 99.9 09/19/19 12:45 98.7 09/19/19 12:00 101.1 92 19 136/62 (86) 94 09/19/19 09:16 108 137/65 09/19/19 09:00 Room Air 09/19/19 08:00 98.2 108 20 137/65 (89) 93 09/19/19 04:00 98.3 101 20 140/66 (90) 93 09/19/19 00:00 97.8 100 20 120/58 (78) 92 09/18/19 21:00 Room Air 09/18/19 20:47 98 112/66 09/18/19 20:00 97.9 98 18 112/66 (81) 93 09/18/19 16:00 90 09/18/19 16:00 98.6 108 20 120/51 (74) 99 Intake and Output 09/18/19 09/19/19 19:00 07:00 Intake Total 40 ml 580 ml Output Total 2000 ml 125 ml Balance -1960 ml 455 ml Free Water 140 ml Tube Feeding 40 ml 440 ml Output Urine Total 125 ml Hemodialysis UF 2000 ml Laboratory Tests Test 09/19/19 04:35 White Blood Count 12.7 K/UL (4.8-10.8) H Red Blood Count 3.64 M/UL (4.20-5.40) L Hemoglobin 10.7 G/DL (12.0-16.0) L Hematocrit 32.3 % (37.0-47.0) L Mean Corpuscular Volume 89 FL (80-99) Mean Corpuscular Hemoglobin 29.4 PG (27.0-31.0) Mean Corpuscular Hemoglobin Concent 33.1 G/DL (32.0-36.0) Red Cell Distribution Width 13.8 % (11.6-14.8) Platelet Count 289 K/UL (150-450) Mean Platelet Volume 6.8 FL (6.5-10.1) Neutrophils (%) (Auto) 64.0 % (45.0-75.0) Lymphocytes (%) (Auto) 25.2 % (20.0-45.0) Monocytes (%) (Auto) 7.2 % (1.0-10.0) Eosinophils (%) (Auto) 2.9 % (0.0-3.0) Basophils (%) (Auto) 0.7 % (0.0-2.0) Sodium Level 139 MMOL/L (136-145) Potassium Level 3.8 MMOL/L (3.5-5.1) Chloride Level 101 MMOL/L (98-107) Carbon Dioxide Level 31 MMOL/L (21-32) Anion Gap 7 mmol/L (5-15) Blood Urea Nitrogen 58 mg/dL (7-18) H Creatinine 3.7 MG/DL (0.55-1.30) H Estimat Glomerular Filtration Rate 13.9 mL/min (>60) Glucose Level 118 MG/DL (74-106) H Calcium Level 9.6 MG/DL (8.5-10.1) Phosphorus Level 2.6 MG/DL (2.5-4.9) Magnesium Level 2.4 MG/DL (1.8-2.4) Total Bilirubin 1.1 MG/DL (0.2-1.0) H Direct Bilirubin 0.2 MG/DL (0.0-0.3) Aspartate Amino Transf (AST/SGOT) 18 U/L (15-37) Alanine Aminotransferase (ALT/SGPT) 30 U/L (12-78) Alkaline Phosphatase 80 U/L (46-116) Total Protein 6.7 G/DL (6.4-8.2) Albumin 2.4 G/DL (3.4-5.0) L Globulin 4.3 g/dL Albumin/Globulin Ratio 0.6 (1.0-2.7) L Random Vancomycin Level 19.5 ug/mL Objective HEAD AND NECK: Shows no JVD. LUNGS: Coarse rhonchi. CARDIOVASCULAR: Shows regular S1 and S2 with no gallop. ABDOMEN: Status post G-tube. EXTREMITIES: No pitting edema. Cristopher Osman MD September 19, 2019 15:51
[2019-09-19 16:00] VITALS: BP 111/59
--- NOTE | 2019-09-19 17:36 | Infectious Diseases Prog Note ---
Assessment/Plan Assessment/Plan ASSESSMENT AND PLAN: 1. 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 septic again, ? source - vancomycin, zosyn, amikacin - surveillance cultures and chest x -ray - monitor labs - chest x-ray - negative - surveillance blood cultures negative - covid-19 pcr neg x 2- remove isolation 2. She has history of hemodialysis, end-stage renal disease, chronic kidney disease. 3. The patient has history of hypertension. 4. Anemia. 5. Elevated creatinine. 6. Hypertension treatment per primary care team. 7. Wound care per Surgery. 8. Dysphagia, G-tube 9. No known drug allergies. 10. Social history is negative. 11. Family History is noncontributory. 12. MAR was noted. 13. Case discussed with RN. 14. Continue treatment per primary consultants. 15. Orders were noted and entered. Subjective Constitutional: Reports: fever, fatigue, other - nad, cough earlier HEENT: Denies: congestion Respiratory: Denies: shortness of breath Cardiovascular: Denies: chest pain Gastrointestinal/Abdominal: Denies: nausea, vomiting Genitourinary: Reports: other - + hargrove Neurologic: Denies: headache Psychiatric: Reports: other - NA Skin: Denies: rash Hematologic: Denies: bleeding Musculoskeletal: Denies: pain Allergies: Coded Allergies: No Known Allergies (Unverified , 06/24/19) Objective Vital Signs Last 24 Hour Vital Signs Date Time Temp Pulse Resp B/P (MAP) Pulse Ox O2 Delivery O2 Flow Rate FiO2 09/19/19 16:00 98.1 95 17 111/59 (76) 94 09/19/19 14:39 99.9 09/19/19 12:45 98.7 09/19/19 12:00 101.1 92 19 136/62 (86) 94 09/19/19 09:16 108 137/65 09/19/19 09:00 Room Air 09/19/19 08:00 98.2 108 20 137/65 (89) 93 09/19/19 04:00 98.3 101 20 140/66 (90) 93 09/19/19 00:00 97.8 100 20 120/58 (78) 92 09/18/19 21:00 Room Air 09/18/19 20:47 98 112/66 09/18/19 20:00 97.9 98 18 112/66 (81) 93 Height (Feet): 5 Height (Inches): 6.00 Weight (Pounds): 117 General Appearance: no acute distress HEENT: normocephalic, atraumatic, anicteric, mucous membranes moist Respiratory/Chest: no respiratory distress, no accessory muscle use, crackles/ rales, rhonchi - bilaterally Cardiovascular: normal rate, regular rhythm, no gallop/murmur Abdomen: normal bowel sounds, soft, non tender, no organomegaly, non distended Genitourinary: other - + hargrove - urine cloudy Extremities: no cyanosis Skin: rash, ulcers - wounds - covered Neurologic/Psychiatric: bottom polisher 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 normal, alert, responsive Lymphatic: no neck adenopathy Musculoskeletal: no effusion Objective Procedure: XRAY Chest 1v Procedure: XRAY Chest 1v Reason for study: Shortness of breath. Comparison films: 09/07/2019. FINDINGS: Right central venous catheter remains in place. Vascularity is normal. Mild left basilar hazy densities unchanged. Cardiac and mediastinal silhouette are within normal limits. There may be a trace left effusion. The bony thorax appear unremarkable. IMPRESSION: NO ACUTE CARDIOPULMONARY DISEASE. Microbiology Date/Time Source Procedure Growth Status 09/10/19 06:35 Blood Blood Culture - Final NO GROWTH AFTER 5 DAYS Complete 09/08/19 07:30 Wound Gram Stain - Final Complete 09/08/19 07:30 Wound Culture - Final Usual Skin Cristina Complete 09/12/19 16:23 Nasopharynx Coronavirus COVID-19 PCR ([facility]) - Final Complete 09/07/19 18:05 Urine,Clean Catch Urine Culture - Final Klebsiella Pneumoniae Esbl Pseudomonas Aeruginosa Complete 09/07/19 18:50 Rectum - Final NO CARBAPENEM-RESISTANT ENTEROBACTERI... Complete Laboratory Tests Test 09/19/19 04:35 White Blood Count 12.7 K/UL (4.8-10.8) H Red Blood Count 3.64 M/UL (4.20-5.40) L Hemoglobin 10.7 G/DL (12.0-16.0) L Hematocrit 32.3 % (37.0-47.0) L Mean Corpuscular Volume 89 FL (80-99) Mean Corpuscular Hemoglobin 29.4 PG (27.0-31.0) Mean Corpuscular Hemoglobin Concent 33.1 G/DL (32.0-36.0) Red Cell Distribution Width 13.8 % (11.6-14.8) Platelet Count 289 K/UL (150-450) Mean Platelet Volume 6.8 FL (6.5-10.1) Neutrophils (%) (Auto) 64.0 % (45.0-75.0) Lymphocytes (%) (Auto) 25.2 % (20.0-45.0) Monocytes (%) (Auto) 7.2 % (1.0-10.0) Eosinophils (%) (Auto) 2.9 % (0.0-3.0) Basophils (%) (Auto) 0.7 % (0.0-2.0) Sodium Level 139 MMOL/L (136-145) Potassium Level 3.8 MMOL/L (3.5-5.1) Chloride Level 101 MMOL/L (98-107) Carbon Dioxide Level 31 MMOL/L (21-32) Anion Gap 7 mmol/L (5-15) Blood Urea Nitrogen 58 mg/dL (7-18) H Creatinine 3.7 MG/DL (0.55-1.30) H Estimat Glomerular Filtration Rate 13.9 mL/min (>60) Glucose Level 118 MG/DL (74-106) H Calcium Level 9.6 MG/DL (8.5-10.1) Phosphorus Level 2.6 MG/DL (2.5-4.9) Magnesium Level 2.4 MG/DL (1.8-2.4) Total Bilirubin 1.1 MG/DL (0.2-1.0) H Direct Bilirubin 0.2 MG/DL (0.0-0.3) Aspartate Amino Transf (AST/SGOT) 18 U/L (15-37) Alanine Aminotransferase (ALT/SGPT) 30 U/L (12-78) Alkaline Phosphatase 80 U/L (46-116) Total Protein 6.7 G/DL (6.4-8.2) Albumin 2.4 G/DL (3.4-5.0) L Globulin 4.3 g/dL Albumin/Globulin Ratio 0.6 (1.0-2.7) L Random Vancomycin Level 19.5 ug/mL Current Medications Medications (Trade) Dose Ordered Sig/Joan Route PRN Reason Start Time Stop Time Status Last Admin Dose Admin Acetaminophen (Tylenol) 650 mg Q4H PRN GT Mild Pain (Pain Scale 1-3) 09/18/19 19:30 10/08/19 19:29 Atorvastatin Calcium (Lipitor) 10 mg BEDTIME GT 09/18/19 21:00 12/07/19 20:59 09/18/19 20:47 Carvedilol (Coreg) 6.25 mg EVERY 12 HOURS GT 09/18/19 21:00 10/08/19 08:59 09/19/19 09:16 Epoetin Dion (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)) 4,000 unit MON-MON-MON SUBQ 09/18/19 21:00 12/17/19 20:59 09/18/19 20:47 Gabapentin (Neurontin) 300 mg THREE TIMES A DAY GT 09/19/19 09:00 10/19/19 08:59 09/19/19 13:34 Heparin Sodium (Porcine) (Heparin 5000 units/ml) 5,000 units EVERY 12 HOURS SUBQ 09/18/19 21:00 11/01/19 15:42 09/19/19 09:18 Loperamide HCl (Imodium) 2 mg Q6H PRN GT Diarrhea 09/18/19 19:30 10/13/19 19:29 Morphine Sulfate (Morphine Sulfate) 1 mg Q4H PRN IVP For Pain 09/18/19 19:30 09/22/19 11:29 Vancomycin HCl ([facility] pharmacy to dose) 1 ea DAILY PRN MISC Per rx protocol 09/19/19 09:00 10/09/19 12:59 Ana Rosado MD September 19, 2019 17:36
[2019-09-19] MEDS ORDERED: Amikacin Rx to dose MISC PRN (17:45)
[2019-09-19 20:00] VITALS: BP 133/70
[2019-09-19] MEDS ORDERED: Amikacin 500 MG in NS 55 ML IV SCH (20:00)
[2019-09-19] MEDS ORDERED: Piperacillin/Tazobactam 2.25 GM in D5W 55 ML IVPB SCH (22:00)
[2019-09-19] MEDS: Zosyn 3.375gm in NS 110ml IVPB SCH (22:42)
--- NOTE | 2019-09-19 23:42 | CDS Physician Query ---
Clarification is required for compliance, coding accuracy, and to reflect severity of illness for this patient Dear Dr. Rosado, Date: 09.19.19 CDS: Anel Easton mild leukocytosis documented White Blood Count 09/07/19-9.6 K/UL 09/08/19-11.7 K/UL History and Physical #HTN #elevated troponin #Elevated BNP -trops stable at baseline -likely due to demand ischemia, ESRD, sepsis -ASA, statin -Resume home Lasix -hydralazine PRN for SBP >160 -Carvedilol 6.25 mg BID -Cardio following consult in the A.M. According to the clinical indications above, please indicate if sepsis was present on admission. PHYSICIAN RESPONSE: undetermined can not tell Present on Admission: Yes No Clinically Undetermined Physician signature Date Please also document in your Progress Notes and/or Discharge Summary and indicate if the condition was present on admission. HERMINIAD
[2019-09-20] VITALS (7 sets, daily range): BP systolic 108–147; BP diastolic 45–80
[2019-09-20 03:00] LABS: APPEARANCE,URINE CLOUDY; BILIRUBIN, URINE NEGATIVE (NEGATIVE); GLUCOSE, URINE (UA) NEGATIVE (NEGATIVE); KETONES,URINE NEGATIVE (NEGATIVE); LEUKOCYTE ESTERASE ,URINE 3+ (NEGATIVE); NITRITE,URINE NEGATIVE (NEGATIVE); PH,URINE 8 (4.5-8.0); PROTEIN,URINE 3+ (NEGATIVE); UROBILINOGEN,URINE NORMAL MG/DL (0.0-1.0)
[2019-09-20 03:48] LABS: COLOR,URINE YELLOW
[2019-09-20 05:22] LABS: BASOPHILS % (AUTO) 1.1 % (0.0-2.0); EOSINOPHILS % (AUTO) 1.9 % (0.0-3.0); HEMATOCRIT 27.6 % (37.0-47.0); HEMOGLOBIN 9.2 G/DL (12.0-16.0); LYMPHOCYTES % (AUTO) 29.7 % (20.0-45.0); MEAN CORPUSCULAR VOLUME 88 FL (80-99); MONOCYTES % (AUTO) 6.9 % (1.0-10.0); NEUTROPHILS % (AUTO) 60.5 % (45.0-75.0); PLATELET COUNT 261 K/UL (150-450); RED BLOOD COUNT 3.13 M/UL (4.20-5.40); RED CELL DISTRIBUTION WIDTH 13.1 % (11.6-14.8); WHITE BLOOD COUNT 12.2 K/UL (4.8-10.8)
[2019-09-20 06:08] LABS: ALANINE AMINOTRANSFERASE 32 U/L (12-78); ALBUMIN 2.3 G/DL (3.4-5.0); ALBUMIN/GLOBULIN RATIO 0.6 (1.0-2.7); ALKALINE PHOSPHATASE 77 U/L (46-116); ANION GAP 8 mmol/L (5-15); ASPARTATE AMINO TRANSFERASE 42 U/L (15-37); BILIRUBIN,TOTAL 1.3 MG/DL (0.2-1.0); BLOOD UREA NITROGEN 76 mg/dL (7-18); CALCIUM 9.2 MG/DL (8.5-10.1); CARBON DIOXIDE 30 MMOL/L (21-32); CHLORIDE 99 MMOL/L (98-107); CREATININE 4.3 MG/DL (0.55-1.30); POTASSIUM 4.3 MMOL/L (3.5-5.1); SODIUM 137 MMOL/L (136-145)
[2019-09-20 08:06] LABS: BILIRUBIN,DIRECT 0.3 MG/DL (0.0-0.3)
--- NOTE | 2019-09-20 09:24 | General Progress Note ---
Assessment/Plan Assessment/Plan: Assessment/Plan Status: stable Assessment/Plan: 1. End-stage renal disease, on hemodialysis. 2. Anemia iron def 3. Dysphagia, status post G-tube placement. 4. Pneumonia. 5. Pancreatic cyst. 6. Hypertension. 7. elevated CEA of 10 8. CAD 9. UTI chart from prior admissions reviewed iv iron repeat stool ob>> neg transfuse to keep HGB above 7 GTF 40 cc HD per nephrology will fu Subjective ROS Limited/Unobtainable: No Allergies: Coded Allergies: No Known Allergies (Unverified , 06/24/19) Objective Last 24 Hour Vital Signs Date Time Temp Pulse Resp B/P (MAP) Pulse Ox O2 Delivery O2 Flow Rate FiO2 09/20/19 08:00 98.8 73 17 115/56 (75) 99 09/20/19 04:00 99.5 101 24 115/54 (74) 90 09/20/19 00:00 99.9 102 24 134/64 (87) 90 09/19/19 21:00 Room Air 09/19/19 20:35 110 133/70 09/19/19 20:00 98.6 110 24 133/70 (91) 93 09/19/19 16:00 98.1 95 17 111/59 (76) 94 09/19/19 14:39 99.9 09/19/19 12:45 98.7 09/19/19 12:00 101.1 92 19 136/62 (86) 94 Intake and Output 09/19/19 09/20/19 19:00 07:00 Intake Total 55.0 ml Output Total 75 ml 400 ml Balance -75 ml -345.0 ml IV Total 55.0 ml Output Urine Total 75 ml 400 ml # Bowel Movements 1 Laboratory Tests 09/20/19 02:20: Urine Color Yellow, Urine Appearance Cloudy, Urine pH 8, Urine Specific [place] 1.010, Urine Protein 3+H, Urine Glucose (UA) Negative, Urine Ketones Negative, Urine Blood 5+H, Urine Nitrite Negative, Urine Bilirubin Negative, Urine Urobilinogen Normal, Urine Leukocyte Esterase 3+H, Urine RBC TntcH, Urine WBC TntcH, Urine Squamous Epithelial Cells Few, Urine Bacteria ModerateH, Urine Yeast ManyH 09/20/19 04:50: White Blood Count 12.2H, Red Blood Count 3.13L, Hemoglobin 9.2L, Hematocrit 27.6L, Mean Corpuscular Volume 88, Mean Corpuscular Hemoglobin 29.5, Mean Corpuscular Hemoglobin Concent 33.5, Red Cell Distribution Width 13.1, Platelet Count 261, Mean Platelet Volume 6.7, Neutrophils (%) (Auto) 60.5, Lymphocytes (% ) (Auto) 29.7, Monocytes (%) (Auto) 6.9, Eosinophils (%) (Auto) 1.9, Basophils ( %) (Auto) 1.1, Sodium Level 137, Potassium Level 4.3, Chloride Level 99, Carbon Dioxide Level 30, Anion Gap 8, Blood Urea Nitrogen 76H, Creatinine 4.3H, Estimat Glomerular Filtration Rate 11.8, Glucose Level 105, Calcium Level 9.2, Total Bilirubin 1.3H, Direct Bilirubin 0.3, Aspartate Amino Transf (AST/SGOT) 42H, Alanine Aminotransferase (ALT/SGPT) 32, Alkaline Phosphatase 77, Total Protein 6.4, Albumin 2.3L, Globulin 4.1, Albumin/Globulin Ratio 0.6L Height (Feet): 5 Height (Inches): 6.00 Weight (Pounds): 117 General Appearance: no apparent distress EENT: normal ENT inspection Neck: supple Cardiovascular: normal rate Respiratory/Chest: decreased breath sounds Abdomen: normal bowel sounds, non tender, soft Extremities: non-tender Jun Mena MD September 20, 2019 09:24
[2019-09-20] MEDS: Zosyn 3.375gm in NS 110ml IVPB SCH ×2 (09:40→21:19)
[2019-09-20] MEDS: Carvedilol 6.25mg Tab GT SCH ×2 (09:40→21:20)
[2019-09-20] MEDS: Heparin 5000 units/ml inj SUBQ SCH ×2 (09:45→21:31)
--- NOTE | 2019-09-20 10:03 | Nephrology Progress Note ---
Assessment/Plan Plan #ESRD on HD TTHS- #anemia of CKD #UTI #dysphagia s/p PEG #multiple pressure wounds #HTN -HD today - hemoglobin stable - STRICT I&Os - daily weights - replete lytes - prbc transfusion for hemoglobin < 7 - increased epo to 6k TIW - IV iron - monitor CBC - on amikacin vancomycin and zosyn - continue coreg 6.25mg BID - replete phos - monitor mag, phos and BMP daily Time spent 45 min > 50% on care coordination and counseling Subjective ROS Limited/Unobtainable: Yes Subjective DC held due to low grade fevers on amikacin, vanco and zosyn Labs reviewed will HD today hemoglobin stable Objective Objective Last 24 Hour Vital Signs Date Time Temp Pulse Resp B/P (MAP) Pulse Ox O2 Delivery O2 Flow Rate FiO2 09/20/19 09:40 73 115/56 09/20/19 08:00 98.8 73 17 115/56 (75) 99 09/20/19 04:00 99.5 101 24 115/54 (74) 90 09/20/19 00:00 99.9 102 24 134/64 (87) 90 09/19/19 21:00 Room Air 09/19/19 20:35 110 133/70 09/19/19 20:00 98.6 110 24 133/70 (91) 93 09/19/19 16:00 98.1 95 17 111/59 (76) 94 09/19/19 14:39 99.9 09/19/19 12:45 98.7 09/19/19 12:00 101.1 92 19 136/62 (86) 94 Intake and Output 09/19/19 09/20/19 18:59 06:59 Intake Total 55.0 ml Output Total 75 ml 400 ml Balance -75 ml -345.0 ml IV Total 55.0 ml Output Urine Total 75 ml 400 ml # Bowel Movements 1 Laboratory Tests 09/20/19 02:20: Urine Color Yellow, Urine Appearance Cloudy, Urine pH 8, Urine Specific [place] 1.010, Urine Protein 3+H, Urine Glucose (UA) Negative, Urine Ketones Negative, Urine Blood 5+H, Urine Nitrite Negative, Urine Bilirubin Negative, Urine Urobilinogen Normal, Urine Leukocyte Esterase 3+H, Urine RBC TntcH, Urine WBC TntcH, Urine Squamous Epithelial Cells Few, Urine Bacteria ModerateH, Urine Yeast ManyH 09/20/19 04:50: White Blood Count 12.2H, Red Blood Count 3.13L, Hemoglobin 9.2L, Hematocrit 27.6L, Mean Corpuscular Volume 88, Mean Corpuscular Hemoglobin 29.5, Mean Corpuscular Hemoglobin Concent 33.5, Red Cell Distribution Width 13.1, Platelet Count 261, Mean Platelet Volume 6.7, Neutrophils (%) (Auto) 60.5, Lymphocytes (% ) (Auto) 29.7, Monocytes (%) (Auto) 6.9, Eosinophils (%) (Auto) 1.9, Basophils ( %) (Auto) 1.1, Sodium Level 137, Potassium Level 4.3, Chloride Level 99, Carbon Dioxide Level 30, Anion Gap 8, Blood Urea Nitrogen 76H, Creatinine 4.3H, Estimat Glomerular Filtration Rate 11.8, Glucose Level 105, Calcium Level 9.2, Total Bilirubin 1.3H, Direct Bilirubin 0.3, Aspartate Amino Transf (AST/SGOT) 42H, Alanine Aminotransferase (ALT/SGPT) 32, Alkaline Phosphatase 77, Total Protein 6.4, Albumin 2.3L, Globulin 4.1, Albumin/Globulin Ratio 0.6L Height (Feet): 5 Height (Inches): 6.00 Weight (Pounds): 117 Objective General Appearance: confused, cachetic, thin Lines, tubes and drains: peripheral HEENT: normocephalic, atraumatic Respiratory/Chest: chest wall non-tender, no respiratory distress Cardiovascular/Chest: normal peripheral pulses Abdomen: feeding tube Extremities: non-pitting, no cyanosis, other - unable to move extremities. Skin Exam: other - pressure ulcers Rory Oconnor M.D. September 20, 2019 10:03
--- NOTE | 2019-09-20 12:05 | Pulmonology Progress Note ---
Subjective ROS Limited/Unobtainable: Yes Interval Events: None new Constitutional: Reports: fever, fatigue, other - nad, cough earlier Gastrointestinal/Abdominal: Denies: nausea, vomiting Psychiatric: Reports: other - NA Skin: Denies: rash Musculoskeletal: Denies: pain Allergies: Coded Allergies: No Known Allergies (Unverified , 06/24/19) All Systems: reviewed and negative except above - All 12 point ROS negative Objective Last 24 Hour Vital Signs Date Time Temp Pulse Resp B/P (MAP) Pulse Ox O2 Delivery O2 Flow Rate FiO2 09/20/19 09:40 73 115/56 09/20/19 09:00 Room Air 09/20/19 08:00 98.8 73 17 115/56 (75) 99 09/20/19 04:00 99.5 101 24 115/54 (74) 90 09/20/19 00:00 99.9 102 24 134/64 (87) 90 09/19/19 21:00 Room Air 09/19/19 20:35 110 133/70 09/19/19 20:00 98.6 110 24 133/70 (91) 93 09/19/19 16:00 98.1 95 17 111/59 (76) 94 09/19/19 14:39 99.9 09/19/19 12:45 98.7 Intake and Output 09/19/19 09/20/19 19:00 07:00 Intake Total 55.0 ml Output Total 75 ml 400 ml Balance -75 ml -345.0 ml IV Total 55.0 ml Output Urine Total 75 ml 400 ml # Bowel Movements 1 General Appearance: no acute distress HEENT: normocephalic Respiratory: chest wall non-tender, lungs clear Cardiovascular: normal peripheral pulses, normal rate Abdomen: normal bowel sounds Laboratory Tests 09/20/19 02:20: Urine Color Yellow, Urine Appearance Cloudy, Urine pH 8, Urine Specific [place] 1.010, Urine Protein 3+H, Urine Glucose (UA) Negative, Urine Ketones Negative, Urine Blood 5+H, Urine Nitrite Negative, Urine Bilirubin Negative, Urine Urobilinogen Normal, Urine Leukocyte Esterase 3+H, Urine RBC TntcH, Urine WBC TntcH, Urine Squamous Epithelial Cells Few, Urine Bacteria ModerateH, Urine Yeast ManyH 09/20/19 04:50: White Blood Count 12.2H, Red Blood Count 3.13L, Hemoglobin 9.2L, Hematocrit 27.6L, Mean Corpuscular Volume 88, Mean Corpuscular Hemoglobin 29.5, Mean Corpuscular Hemoglobin Concent 33.5, Red Cell Distribution Width 13.1, Platelet Count 261, Mean Platelet Volume 6.7, Neutrophils (%) (Auto) 60.5, Lymphocytes (% ) (Auto) 29.7, Monocytes (%) (Auto) 6.9, Eosinophils (%) (Auto) 1.9, Basophils ( %) (Auto) 1.1, Sodium Level 137, Potassium Level 4.3, Chloride Level 99, Carbon Dioxide Level 30, Anion Gap 8, Blood Urea Nitrogen 76H, Creatinine 4.3H, Estimat Glomerular Filtration Rate 11.8, Glucose Level 105, Calcium Level 9.2, Total Bilirubin 1.3H, Direct Bilirubin 0.3, Aspartate Amino Transf (AST/SGOT) 42H, Alanine Aminotransferase (ALT/SGPT) 32, Alkaline Phosphatase 77, Total Protein 6.4, Albumin 2.3L, Globulin 4.1, Albumin/Globulin Ratio 0.6L Current Medications Medications (Trade) Dose Ordered Sig/Joan Route PRN Reason Start Time Stop Time Status Last Admin Dose Admin Acetaminophen (Tylenol) 650 mg Q4H PRN GT Mild Pain (Pain Scale 1-3) 09/18/19 19:30 10/08/19 19:29 Amikacin Protocol (Amikacin pharmacy to dose) 1 ea DAILY PRN MISC Per rx protocol 09/19/19 17:45 10/19/19 17:44 Atorvastatin Calcium (Lipitor) 10 mg BEDTIME GT 09/18/19 21:00 12/07/19 20:59 09/19/19 20:36 Carvedilol (Coreg) 6.25 mg EVERY 12 HOURS GT 09/18/19 21:00 10/08/19 08:59 09/20/19 09:40 Epoetin Dion (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)) 4,000 unit MON-MON-MON SUBQ 09/18/19 21:00 12/17/19 20:59 09/18/19 20:47 Gabapentin (Neurontin) 300 mg THREE TIMES A DAY GT 09/19/19 09:00 10/19/19 08:59 09/20/19 09:40 Heparin Sodium (Porcine) (Heparin 5000 units/ml) 5,000 units EVERY 12 HOURS SUBQ 09/18/19 21:00 11/01/19 15:42 09/20/19 09:45 Loperamide HCl (Imodium) 2 mg Q6H PRN GT Diarrhea 09/18/19 19:30 10/13/19 19:29 09/19/19 23:24 Morphine Sulfate (Morphine Sulfate) 1 mg Q4H PRN IVP For Pain 09/18/19 19:30 09/22/19 11:29 Piperacillin Sod/ Tazobactam Sod 3.375 gm/Sodium Chloride 110 ml @ 27.5 mls/hr EVERY 12 HOURS IVPB 09/19/19 21:00 09/24/19 20:59 09/20/19 09:40 Vancomycin HCl (Vanco pharmacy to dose) 1 ea DAILY PRN MISC Per rx protocol 09/19/19 09:00 10/09/19 12:59 Assessment/Plan Assessment/Plan IMPRESSION: 1. UTI. 2. Anemia. 3. ESRD, on dialysis. 4. Initial COVID-19 negative. DISCUSSION: Continue current medications and care. Initial COVID-19 pcr negative Blood transfusion. Empiric antibiotics. Hemodialysis. Saturating well on RA I will follow carefully. Ross Nina Omar Syed MD September 20, 2019 12:05
--- NOTE | 2019-09-20 12:18 | Internal Med Progress Note ---
Subjective Date of Service: September 20, 2019 Physician Name Wendy Denny Attending Physician Meera Frederick MD Current Medications Medications (Trade) Dose Ordered Sig/Joan Route PRN Reason Start Time Stop Time Status Last Admin Dose Admin Acetaminophen (Tylenol) 650 mg Q4H PRN GT Mild Pain (Pain Scale 1-3) 09/18/19 19:30 10/08/19 19:29 Amikacin Protocol (Amikacin pharmacy to dose) 1 ea DAILY PRN MISC Per rx protocol 09/19/19 17:45 10/19/19 17:44 Atorvastatin Calcium (Lipitor) 10 mg BEDTIME GT 09/18/19 21:00 12/07/19 20:59 09/19/19 20:36 Carvedilol (Coreg) 6.25 mg EVERY 12 HOURS GT 09/18/19 21:00 10/08/19 08:59 09/20/19 09:40 Epoetin Dion (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)) 4,000 unit MON-MON-MON SUBQ 09/18/19 21:00 12/17/19 20:59 09/18/19 20:47 Gabapentin (Neurontin) 300 mg THREE TIMES A DAY GT 09/19/19 09:00 10/19/19 08:59 09/20/19 09:40 Heparin Sodium (Porcine) (Heparin 5000 units/ml) 5,000 units EVERY 12 HOURS SUBQ 09/18/19 21:00 11/01/19 15:42 09/20/19 09:45 Loperamide HCl (Imodium) 2 mg Q6H PRN GT Diarrhea 09/18/19 19:30 10/13/19 19:29 09/19/19 23:24 Morphine Sulfate (Morphine Sulfate) 1 mg Q4H PRN IVP For Pain 09/18/19 19:30 09/22/19 11:29 Piperacillin Sod/ Tazobactam Sod 3.375 gm/Sodium Chloride 110 ml @ 27.5 mls/hr EVERY 12 HOURS IVPB 09/19/19 21:00 09/24/19 20:59 09/20/19 09:40 Vancomycin HCl (Vanco pharmacy to dose) 1 ea DAILY PRN MISC Per rx protocol 09/19/19 09:00 10/09/19 12:59 Allergies: Coded Allergies: No Known Allergies (Unverified , 3/2/20) Subjective Patient was spiking fevers yesterday so d/c was held; She is now back on Amikacin, Vancomycin, and Zosyn, and has had repeat Cxs. Appreciate ID, will follow up. When patient was visited at bedside, she states she was feeling fine , but she is not very verbal. Appears to have periods of delerium Objective Last Vital Signs Date Time Temp Pulse Resp B/P (MAP) Pulse Ox O2 Delivery O2 Flow Rate FiO2 09/20/19 09:40 73 115/56 09/20/19 09:00 Room Air 09/20/19 08:00 98.8 17 99 Laboratory Tests Test 09/20/19 02:20 09/20/19 04:50 Urine Color Yellow Urine Appearance Cloudy Urine pH 8 (4.5-8.0) Urine Specific [place] 1.010 (1.005-1.035) Urine Protein 3+ (NEGATIVE) H Urine Glucose (UA) Negative (NEGATIVE) Urine Ketones Negative (NEGATIVE) Urine Blood 5+ (NEGATIVE) H Urine Nitrite Negative (NEGATIVE) Urine Bilirubin Negative (NEGATIVE) Urine Urobilinogen Normal MG/DL (0.0-1.0) Urine Leukocyte Esterase 3+ (NEGATIVE) H Urine RBC Tntc /HPF (0 - 2) H Urine WBC Tntc /HPF (0 - 2) H Urine Squamous Epithelial Cells Few /LPF (NONE/OCC) Urine Bacteria Moderate /HPF (NONE) H Urine Yeast Many /HPF (NONE) H White Blood Count 12.2 K/UL (4.8-10.8) H Red Blood Count 3.13 M/UL (4.20-5.40) L Hemoglobin 9.2 G/DL (12.0-16.0) L Hematocrit 27.6 % (37.0-47.0) L Mean Corpuscular Volume 88 FL (80-99) Mean Corpuscular Hemoglobin 29.5 PG (27.0-31.0) Mean Corpuscular Hemoglobin Concent 33.5 G/DL (32.0-36.0) Red Cell Distribution Width 13.1 % (11.6-14.8) Platelet Count 261 K/UL (150-450) Mean Platelet Volume 6.7 FL (6.5-10.1) Neutrophils (%) (Auto) 60.5 % (45.0-75.0) Lymphocytes (%) (Auto) 29.7 % (20.0-45.0) Monocytes (%) (Auto) 6.9 % (1.0-10.0) Eosinophils (%) (Auto) 1.9 % (0.0-3.0) Basophils (%) (Auto) 1.1 % (0.0-2.0) Sodium Level 137 MMOL/L (136-145) Potassium Level 4.3 MMOL/L (3.5-5.1) Chloride Level 99 MMOL/L (98-107) Carbon Dioxide Level 30 MMOL/L (21-32) Anion Gap 8 mmol/L (5-15) Blood Urea Nitrogen 76 mg/dL (7-18) H Creatinine 4.3 MG/DL (0.55-1.30) H Estimat Glomerular Filtration Rate 11.8 mL/min (>60) Glucose Level 105 MG/DL (74-106) Calcium Level 9.2 MG/DL (8.5-10.1) Total Bilirubin 1.3 MG/DL (0.2-1.0) H Direct Bilirubin 0.3 MG/DL (0.0-0.3) Aspartate Amino Transf (AST/SGOT) 42 U/L (15-37) H Alanine Aminotransferase (ALT/SGPT) 32 U/L (12-78) Alkaline Phosphatase 77 U/L (46-116) Total Protein 6.4 G/DL (6.4-8.2) Albumin 2.3 G/DL (3.4-5.0) L Globulin 4.1 g/dL Albumin/Globulin Ratio 0.6 (1.0-2.7) L Intake and Output 09/19/19 09/20/19 19:00 07:00 Intake Total 55.0 ml Output Total 75 ml 400 ml Balance -75 ml -345.0 ml IV Total 55.0 ml Output Urine Total 75 ml 400 ml # Bowel Movements 1 Objective EENT: PERRL/EOMI Cardiovascular: normal rate, regular rhythm Respiratory/Chest: lungs clear, normal breath sounds, no respiratory distress Abdomen: non tender, soft Extremities: other - Diffuse contractures Neurologic: alert Skin: warm/dry, other - Feet w/ bilateral wound bandages Assessment/Plan Assessment/Plan Assessment #Sepsis 2/2 Klebsiella UTI and VRE Bacteremia--> spiked fevers again, so started back on tx on 09/18 w/ repeat [place] Cx #ESRD on HD #Anemia of Chronic Disease #Type II ME demand Ischemia, HTN #Dementia, Peg tube dependent, Functional Quadriplegia and associated associated pressure ulcers Plan Patient spiked fevers again so was started back on Tx w/ Amikacin, Zosyn, Vancomycin; pending repeat Cxs and ID w/u. HD as scheduled w/ epogen dosing. Coreg, ASA, Atorvastatin. DVT ppx, supportive measures. Tube Feeds. Appreciate Consultants. Monitor in med surg Wendy Denny D.O. September 20, 2019 12:18
--- NOTE | 2019-09-20 12:24 | Hematology/Onc Progress Note ---
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 Otherwise unremarkable pancreas --> as per gi, may need further eval with endsocopy --> with pancreatitis at this time, may be obscuring picture --> reimage in short order, 6 months --> ca19.9 60 but may be elevated due to pancreatitis --> cea of 10--> --> monitor lfts daily # Anemia of chronic disease due to underlying chronic medical issues, multifactorial v Gi bleed --> Anemia workup has been reviewed, ferritin 1300 -->1800 --> No evidence of hemolysis is noted, peripheral smear has been reviewed. --> Hgb goal >7. Transfuse prn. --> Epogen has been started --> IV IRON completed --> Medications have been reviewed --> hgb 6-->7.1-->12-->11.2-->-->11.6 -->11.9->9.2 --> 09/07 stool ob negative --> rbc: 2 units 09/10/2019, --> bone marrow biopsy is not indicated given the other more likely causes # Leukocytosis/elevated white blood cell count, unspecified likely related to underlying stress reaction, smoking v more likely infection in this case, uti now --> have reviewed peripheral smear and bandemia/neutrophilia noted --> continue antibiotics if they have been started by ID team --> monitor for resolution --> as per id care, on broad spectrum abx --> wbc 14-->12-->9-->14.9-->12->14->12 --> per id recs, on: cftx-->bethany/vanc --> blood cx++ x2 # Thrombocytopenia - potential causes multifactorial, evaluate liver and viral etiologies to begin, in this case due to sepsisand pancreatitis --> Hep panel and HIV are both negative --> US abd to evaluate for cirrhosis and hsm --> pleural effusions noted, hsm is neg --> Peripheral smear ordered to evaluate for blasts /schistocytes --> abx and other meds have been reviewed --> ok for ppx if plt >50k w/ either heparin or lovenox # 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 Greatly appreciate consultation. Subjective Allergies: Coded Allergies: No Known Allergies (Unverified , 06/24/19) Subjective 09/09 obtunded, on tele, labs pending, stool ob negative, iv abx 09/10 s/p 2 units rbc, hgb improved to 12, on iv iron, hep b neg. 09/11 hd for today, h/h stable, no acute distress 09/12 nonverbal, no overnight events, bethany/vanc 09/13 le vishal duplex bilat negative, clood cx++ x2, no distress 09/14 labs noted, no bleeding, no night sweats, meds reviewed 09/15 hd as per renal, labs noted, no bleeding, no fc wbc 12k 09/16 cotninue on iv iron, labs noted, hgb relatively stable 09/19 for hd today, seenby renal, labs noted, no bleeding Objective Objective Current Medications Medications (Trade) Dose Ordered Sig/Joan Route PRN Reason Start Time Stop Time Status Last Admin Dose Admin Acetaminophen (Tylenol) 650 mg Q4H PRN GT Mild Pain (Pain Scale 1-3) 09/18/19 19:30 10/08/19 19:29 Amikacin Protocol (Amikacin pharmacy to dose) 1 ea DAILY PRN MISC Per rx protocol 09/19/19 17:45 10/19/19 17:44 Atorvastatin Calcium (Lipitor) 10 mg BEDTIME GT 09/18/19 21:00 12/07/19 20:59 09/19/19 20:36 Carvedilol (Coreg) 6.25 mg EVERY 12 HOURS GT 09/18/19 21:00 10/08/19 08:59 09/20/19 09:40 Epoetin Dion (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)) 4,000 unit MON-WED-MON SUBQ 09/18/19 21:00 8/25/20 20:59 09/18/19 20:47 Gabapentin (Neurontin) 300 mg THREE TIMES A DAY GT 09/19/19 09:00 10/19/19 08:59 09/20/19 09:40 Heparin Sodium (Porcine) (Heparin 5000 units/ml) 5,000 units EVERY 12 HOURS SUBQ 09/18/19 21:00 11/01/19 15:42 09/20/19 09:45 Loperamide HCl (Imodium) 2 mg Q6H PRN GT Diarrhea 09/18/19 19:30 10/13/19 19:29 09/19/19 23:24 Morphine Sulfate (Morphine Sulfate) 1 mg Q4H PRN IVP For Pain 09/18/19 19:30 09/22/19 11:29 Piperacillin Sod/ Tazobactam Sod 3.375 gm/Sodium Chloride 110 ml @ 27.5 mls/hr EVERY 12 HOURS IVPB 09/19/19 21:00 09/24/19 20:59 09/20/19 09:40 Vancomycin HCl (Vanco pharmacy to dose) 1 ea DAILY PRN MISC Per rx protocol 09/19/19 09:00 10/09/19 12:59 Last 24 Hour Vital Signs Date Time Temp Pulse Resp B/P (MAP) Pulse Ox O2 Delivery O2 Flow Rate FiO2 09/20/19 09:40 73 115/56 09/20/19 09:00 Room Air 09/20/19 08:00 98.8 73 17 115/56 (75) 99 09/20/19 04:00 99.5 101 24 115/54 (74) 90 09/20/19 00:00 99.9 102 24 134/64 (87) 90 09/19/19 21:00 Room Air 09/19/19 20:35 110 133/70 09/19/19 20:00 98.6 110 24 133/70 (91) 93 09/19/19 16:00 98.1 95 17 111/59 (76) 94 09/19/19 14:39 99.9 09/19/19 12:45 98.7 09/19/19 12:00 101.1 92 19 136/62 (86) 94 09/19/19 09:16 108 137/65 09/19/19 09:00 Room Air 09/19/19 08:00 98.2 108 20 137/65 (89) 93 09/19/19 04:00 98.3 101 20 140/66 (90) 93 09/19/19 00:00 97.8 100 20 120/58 (78) 92 09/18/19 21:00 Room Air 09/18/19 20:47 98 112/66 09/18/19 20:00 97.9 98 18 112/66 (81) 93 09/18/19 16:00 90 09/18/19 16:00 98.6 108 20 120/51 (74) 99 Intake and Output 09/19/19 09/20/19 19:00 07:00 Intake Total 55.0 ml Output Total 75 ml 400 ml Balance -75 ml -345.0 ml IV Total 55.0 ml Output Urine Total 75 ml 400 ml # Bowel Movements 1 Labs Test 09/18/19 05:00 09/19/19 04:35 09/20/19 02:20 09/20/19 04:50 White Blood Count 12.9 K/UL (4.8-10.8) 12.7 K/UL (4.8-10.8) 12.2 K/UL (4.8-10.8) Red Blood Count 3.81 M/UL (4.20-5.40) 3.64 M/UL (4.20-5.40) 3.13 M/UL (4.20-5.40) Hemoglobin 11.2 G/DL (12.0-16.0) 10.7 G/DL (12.0-16.0) 9.2 G/DL (12.0-16.0) Hematocrit 32.9 % (37.0-47.0) 32.3 % (37.0-47.0) 27.6 % (37.0-47.0) Mean Corpuscular Volume 86 FL (80-99) 89 FL (80-99) 88 FL (80-99) Mean Corpuscular Hemoglobin 29.3 PG (27.0-31.0) 29.4 PG (27.0-31.0) 29.5 PG (27.0-31.0) Mean Corpuscular Hemoglobin Concent 33.9 G/DL (32.0-36.0) 33.1 G/DL (32.0-36.0) 33.5 G/DL (32.0-36.0) Red Cell Distribution Width 13.2 % (11.6-14.8) 13.8 % (11.6-14.8) 13.1 % (11.6-14.8) Platelet Count 268 K/UL (150-450) 289 K/UL (150-450) 261 K/UL (150-450) Mean Platelet Volume 6.7 FL (6.5-10.1) 6.8 FL (6.5-10.1) 6.7 FL (6.5-10.1) Neutrophils (%) (Auto) 63.6 % (45.0-75.0) 64.0 % (45.0-75.0) 60.5 % (45.0-75.0) Lymphocytes (%) (Auto) 25.7 % (20.0-45.0) 25.2 % (20.0-45.0) 29.7 % (20.0-45.0) Monocytes (%) (Auto) 7.0 % (1.0-10.0) 7.2 % (1.0-10.0) 6.9 % (1.0-10.0) Eosinophils (%) (Auto) 3.1 % (0.0-3.0) 2.9 % (0.0-3.0) 1.9 % (0.0-3.0) Basophils (%) (Auto) 0.7 % (0.0-2.0) 0.7 % (0.0-2.0) 1.1 % (0.0-2.0) Sodium Level 137 MMOL/L (136-145) 139 MMOL/L (136-145) 137 MMOL/L (136-145) Potassium Level 4.0 MMOL/L (3.5-5.1) 3.8 MMOL/L (3.5-5.1) 4.3 MMOL/L (3.5-5.1) Chloride Level 98 MMOL/L (98-107) 101 MMOL/L (98-107) 99 MMOL/L (98-107) Carbon Dioxide Level 32 MMOL/L (21-32) 31 MMOL/L (21-32) 30 MMOL/L (21-32) Anion Gap 7 mmol/L (5-15) 7 mmol/L (5-15) 8 mmol/L (5-15) Blood Urea Nitrogen 74 mg/dL (7-18) 58 mg/dL (7-18) 76 mg/dL (7-18) Creatinine 4.1 MG/DL (0.55-1.30) 3.7 MG/DL (0.55-1.30) 4.3 MG/DL (0.55-1.30) Estimat Glomerular Filtration Rate 12.4 mL/min (>60) 13.9 mL/min (>60) 11.8 mL/min (>60) Glucose Level 128 MG/DL (74-106) 118 MG/DL (74-106) 105 MG/DL (74-106) Calcium Level 9.7 MG/DL (8.5-10.1) 9.6 MG/DL (8.5-10.1) 9.2 MG/DL (8.5-10.1) Total Bilirubin 0.5 MG/DL (0.2-1.0) 1.1 MG/DL (0.2-1.0) 1.3 MG/DL (0.2-1.0) Aspartate Amino Transf (AST/SGOT) 28 U/L (15-37) 18 U/L (15-37) 42 U/L (15-37) Alanine Aminotransferase (ALT/SGPT) 27 U/L (12-78) 30 U/L (12-78) 32 U/L (12-78) Alkaline Phosphatase 78 U/L (46-116) 80 U/L (46-116) 77 U/L (46-116) Total Protein 6.6 G/DL (6.4-8.2) 6.7 G/DL (6.4-8.2) 6.4 G/DL (6.4-8.2) Albumin 2.4 G/DL (3.4-5.0) 2.4 G/DL (3.4-5.0) 2.3 G/DL (3.4-5.0) Globulin 4.2 g/dL 4.3 g/dL 4.1 g/dL Albumin/Globulin Ratio 0.6 (1.0-2.7) 0.6 (1.0-2.7) 0.6 (1.0-2.7) Phosphorus Level 2.6 MG/DL (2.5-4.9) Magnesium Level 2.4 MG/DL (1.8-2.4) Direct Bilirubin 0.2 MG/DL (0.0-0.3) 0.3 MG/DL (0.0-0.3) Random Vancomycin Level 19.5 ug/mL Urine Color Yellow Urine Appearance Cloudy Urine pH 8 (4.5-8.0) Urine Specific [place] 1.010 (1.005-1.035) Urine Protein 3+ (NEGATIVE) Urine Glucose (UA) Negative (NEGATIVE) Urine Ketones Negative (NEGATIVE) Urine Blood 5+ (NEGATIVE) Urine Nitrite Negative (NEGATIVE) Urine Bilirubin Negative (NEGATIVE) Urine Urobilinogen Normal MG/DL (0.0-1.0) Urine Leukocyte Esterase 3+ (NEGATIVE) Urine RBC Tntc /HPF (0 - 2) Urine WBC Tntc /HPF (0 - 2) Urine Squamous Epithelial Cells Few /LPF (NONE/OCC) Urine Bacteria Moderate /HPF (NONE) Urine Yeast Many /HPF (NONE) Height (Feet): 5 Height (Inches): 6.00 Weight (Pounds): 117 Objective Physical Exam: Vitals: reviewed General: NAD, groans to pain stimuli HEENT: nc, at Neck: supple Chest: clear breath sounds bilaterally Cardiovascular: RRR, no s3, s4 Abdomen: soft, nontender, nd ++ peg Extremities: no cce, normal range of motion Neuro: confused, nonverbal Skin: other - pressure sores to right side Bola Aldridge MD September 20, 2019 12:24
--- NOTE | 2019-09-20 13:05 | Cardiac Electrophysiology PN ---
Assessment/Plan Assessment/Plan 1. BNP of more than 6000. On HD. EF 65%. Ruled out for PA On HD 2. Hypertension. Continue Coreg 6.25 mg b.i.d. and HD 3. Recurrent fever and high WBC and UTI. On Abx per Dr. Rosado. 4. Dysphagia, status post PEG placement. 5. Dementia. 6. ESRD on HD per Dr. Bowen. 7. Severe anemia Hb 6.9, S/P 2 units of PRBC DW RN Subjective Subjective Nonverbal. DC to [facility] cancelled as had T 101.4 yesterday. RN at bedside.Covid negative x 2 Objective Last 24 Hour Vital Signs Date Time Temp Pulse Resp B/P (MAP) Pulse Ox O2 Delivery O2 Flow Rate FiO2 09/20/19 09:40 73 115/56 09/20/19 09:00 Room Air 09/20/19 08:00 98.8 73 17 115/56 (75) 99 09/20/19 04:00 99.5 101 24 115/54 (74) 90 09/20/19 00:00 99.9 102 24 134/64 (87) 90 09/19/19 21:00 Room Air 09/19/19 20:35 110 133/70 09/19/19 20:00 98.6 110 24 133/70 (91) 93 09/19/19 16:00 98.1 95 17 111/59 (76) 94 09/19/19 14:39 99.9 Intake and Output 09/19/19 09/20/19 19:00 07:00 Intake Total 55.0 ml Output Total 75 ml 400 ml Balance -75 ml -345.0 ml IV Total 55.0 ml Output Urine Total 75 ml 400 ml # Bowel Movements 1 Laboratory Tests Test 09/20/19 02:20 09/20/19 04:50 Urine Color Yellow Urine Appearance Cloudy Urine pH 8 (4.5-8.0) Urine Specific [place] 1.010 (1.005-1.035) Urine Protein 3+ (NEGATIVE) H Urine Glucose (UA) Negative (NEGATIVE) Urine Ketones Negative (NEGATIVE) Urine Blood 5+ (NEGATIVE) H Urine Nitrite Negative (NEGATIVE) Urine Bilirubin Negative (NEGATIVE) Urine Urobilinogen Normal MG/DL (0.0-1.0) Urine Leukocyte Esterase 3+ (NEGATIVE) H Urine RBC Tntc /HPF (0 - 2) H Urine WBC Tntc /HPF (0 - 2) H Urine Squamous Epithelial Cells Few /LPF (NONE/OCC) Urine Bacteria Moderate /HPF (NONE) H Urine Yeast Many /HPF (NONE) H White Blood Count 12.2 K/UL (4.8-10.8) H Red Blood Count 3.13 M/UL (4.20-5.40) L Hemoglobin 9.2 G/DL (12.0-16.0) L Hematocrit 27.6 % (37.0-47.0) L Mean Corpuscular Volume 88 FL (80-99) Mean Corpuscular Hemoglobin 29.5 PG (27.0-31.0) Mean Corpuscular Hemoglobin Concent 33.5 G/DL (32.0-36.0) Red Cell Distribution Width 13.1 % (11.6-14.8) Platelet Count 261 K/UL (150-450) Mean Platelet Volume 6.7 FL (6.5-10.1) Neutrophils (%) (Auto) 60.5 % (45.0-75.0) Lymphocytes (%) (Auto) 29.7 % (20.0-45.0) Monocytes (%) (Auto) 6.9 % (1.0-10.0) Eosinophils (%) (Auto) 1.9 % (0.0-3.0) Basophils (%) (Auto) 1.1 % (0.0-2.0) Sodium Level 137 MMOL/L (136-145) Potassium Level 4.3 MMOL/L (3.5-5.1) Chloride Level 99 MMOL/L (98-107) Carbon Dioxide Level 30 MMOL/L (21-32) Anion Gap 8 mmol/L (5-15) Blood Urea Nitrogen 76 mg/dL (7-18) H Creatinine 4.3 MG/DL (0.55-1.30) H Estimat Glomerular Filtration Rate 11.8 mL/min (>60) Glucose Level 105 MG/DL (74-106) Calcium Level 9.2 MG/DL (8.5-10.1) Total Bilirubin 1.3 MG/DL (0.2-1.0) H Direct Bilirubin 0.3 MG/DL (0.0-0.3) Aspartate Amino Transf (AST/SGOT) 42 U/L (15-37) H Alanine Aminotransferase (ALT/SGPT) 32 U/L (12-78) Alkaline Phosphatase 77 U/L (46-116) Total Protein 6.4 G/DL (6.4-8.2) Albumin 2.3 G/DL (3.4-5.0) L Globulin 4.1 g/dL Albumin/Globulin Ratio 0.6 (1.0-2.7) L Objective HEAD AND NECK: No JVD. LUNGS: Coarse rhonchi. CARDIOVASCULAR: Regular S1 and S2 with no gallop. ABDOMEN: Status post G-tube. EXTREMITIES: No pitting edema. Cristopher Osman MD September 20, 2019 13:04
--- NOTE | 2019-09-20 15:41 | Surgery Progress Note ---
Surgery Progress Note Subjective Additional Comments pending d/c labs note exam stable Objective Last 24 Hour Vital Signs Date Time Temp Pulse Resp B/P (MAP) Pulse Ox O2 Delivery O2 Flow Rate FiO2 09/20/19 13:44 98.5 09/20/19 12:00 98.5 69 18 118/64 (82) 98 09/20/19 09:40 73 115/56 09/20/19 09:00 Room Air 09/20/19 08:00 98.8 73 17 115/56 (75) 99 09/20/19 04:00 99.5 101 24 115/54 (74) 90 09/20/19 00:00 99.9 102 24 134/64 (87) 90 09/19/19 21:00 Room Air 09/19/19 20:35 110 133/70 09/19/19 20:00 98.6 110 24 133/70 (91) 93 09/19/19 16:00 98.1 95 17 111/59 (76) 94 I&O Intake and Output 09/19/19 09/20/19 19:00 07:00 Intake Total 55.0 ml Output Total 75 ml 400 ml Balance -75 ml -345.0 ml IV Total 55.0 ml Output Urine Total 75 ml 400 ml # Bowel Movements 1 Dressing: other Wound: other Drains: other Cardiovascular: RSR Respiratory: decreased breath sounds Abdomen: soft, non-tender, present bowel sounds Extremities: no cyanosis Laboratory Tests Test 09/20/19 02:20 09/20/19 04:50 Urine Color Yellow Urine Appearance Cloudy Urine pH 8 (4.5-8.0) Urine Specific [place] 1.010 (1.005-1.035) Urine Protein 3+ (NEGATIVE) H Urine Glucose (UA) Negative (NEGATIVE) Urine Ketones Negative (NEGATIVE) Urine Blood 5+ (NEGATIVE) H Urine Nitrite Negative (NEGATIVE) Urine Bilirubin Negative (NEGATIVE) Urine Urobilinogen Normal MG/DL (0.0-1.0) Urine Leukocyte Esterase 3+ (NEGATIVE) H Urine RBC Tntc /HPF (0 - 2) H Urine WBC Tntc /HPF (0 - 2) H Urine Squamous Epithelial Cells Few /LPF (NONE/OCC) Urine Bacteria Moderate /HPF (NONE) H Urine Yeast Many /HPF (NONE) H White Blood Count 12.2 K/UL (4.8-10.8) H Red Blood Count 3.13 M/UL (4.20-5.40) L Hemoglobin 9.2 G/DL (12.0-16.0) L Hematocrit 27.6 % (37.0-47.0) L Mean Corpuscular Volume 88 FL (80-99) Mean Corpuscular Hemoglobin 29.5 PG (27.0-31.0) Mean Corpuscular Hemoglobin Concent 33.5 G/DL (32.0-36.0) Red Cell Distribution Width 13.1 % (11.6-14.8) Platelet Count 261 K/UL (150-450) Mean Platelet Volume 6.7 FL (6.5-10.1) Neutrophils (%) (Auto) 60.5 % (45.0-75.0) Lymphocytes (%) (Auto) 29.7 % (20.0-45.0) Monocytes (%) (Auto) 6.9 % (1.0-10.0) Eosinophils (%) (Auto) 1.9 % (0.0-3.0) Basophils (%) (Auto) 1.1 % (0.0-2.0) Sodium Level 137 MMOL/L (136-145) Potassium Level 4.3 MMOL/L (3.5-5.1) Chloride Level 99 MMOL/L (98-107) Carbon Dioxide Level 30 MMOL/L (21-32) Anion Gap 8 mmol/L (5-15) Blood Urea Nitrogen 76 mg/dL (7-18) H Creatinine 4.3 MG/DL (0.55-1.30) H Estimat Glomerular Filtration Rate 11.8 mL/min (>60) Glucose Level 105 MG/DL (74-106) Calcium Level 9.2 MG/DL (8.5-10.1) Total Bilirubin 1.3 MG/DL (0.2-1.0) H Direct Bilirubin 0.3 MG/DL (0.0-0.3) Aspartate Amino Transf (AST/SGOT) 42 U/L (15-37) H Alanine Aminotransferase (ALT/SGPT) 32 U/L (12-78) Alkaline Phosphatase 77 U/L (46-116) Total Protein 6.4 G/DL (6.4-8.2) Albumin 2.3 G/DL (3.4-5.0) L Globulin 4.1 g/dL Albumin/Globulin Ratio 0.6 (1.0-2.7) L Plan Problems: (1) COVID-19 ruled out Assessment & Plan: FINDINGS: Lungs: Left basilar opacity with volume loss, likely atelectasis however a focus of infection could have a similar appearance. Pleural space: No pleural effusion. No pneumothorax. Heart: Unremarkable. No cardiomegaly. Bones/joints: No fracture. Vasculature: Atherosclerotic calcifications. Tubes, lines and devices: Right IJ large bore dialysis catheter terminates within the right atrium. IMPRESSION: Left basilar opacity with volume loss, likely atelectasis however a focus of infection could have a similar appearance. leukocytosis anemia pending test (2) Protein calorie malnutrition Assessment & Plan: DAILY ESTIMATED NEEDS: Needs based on Wounds, HD 57kg 30-35 kcals/kg 6450-9983 total kcals 1.25-1.8 g protein/kg 71-103 g total protein Fluids per MD NUTRITION DIAGNOSIS: * Increased kcal and prot needs r/t wound healing and renal failure as evidenced by w/ multiple pressure injuries, including full thickness and unstageable wounds, refer to MD reports, pt w/ ESRD on HD, GT dep. CURRENT TF:Nepro @ 40ml/hr x 20 hrs ENTERAL NUTRITION RECOMMENDATIONS: Nepro @ 45ml/hr x 22 hrs to provide 990ml, 1782kcal, 80g prot, 720ml free water - Rec to INCREASE RATE AND RUNNING TIME ABOVE to better meet est kcal and pro needs - HOB over 30 degrees/ water flush per MD ADDITIONAL RECOMMENDATIONS: 1) Calibrated bedscale wt 2) Wound Care: add Nephrovite x 1 add Saw 1ptk BID via GT 3) Monitor BGs, consider NISS: BGs consistently mildly elevated 4) Monitor lytes and renal fxn (3) Pressure ulcer (4) Decubitus skin ulcer Assessment & Plan: Pt presented on admission with multiple Pressure injuries. Full thickness Pressure Injury R shoulder(L)2.8cm x (W)2cm. Base of wound is 75 % slough, 25% beefy red granulation. Slough removed with gentle friction. Post removal of slough,small amt slough at base of wound. Small amt sanguineous exudate. Edges flat and adherent to base of wound. Periwound without erythema, induration or fluctuance. Darker skin tone without induration ,fluctuance or tenderness at sacrococcygeal area. Non-blanching erythema and scattered areas of hyperpigmentation noted to R and L gluteal cheeks. Pt denied tenderness when affected areas palpated. Full thickness Pressure injury R hip (L)5.5cm x (W)10.2cm x (D)2.6cm. Base of wound is 75% pink granulation,25% Loose fibrinous slough. Bone is palpable.Edges flat ,pink and adherent to base of wound. Small amt. non-odorous serous exudate. Hypopigmentation noted to perineum and labia majora. Unstageable Pressure Injury R heel(L)3.5cm x (W)3.3cm . Base of wound is 100% necrotic with semidetached with surrounding yellow slough. Edges area dry, black. Periwound is non-blanchable and fluctuant. Maroon discoloration with fluctuance noted to distal/lateral R foot (L)2.8cm x ( W)2.5cm. Resolving pressure injury R Hallux(L)3.5cm x (W)3.3cm.Gause epithelial at base of wound with surrounding dry brown borders. L heel is boggy with non-blanching erythema.Historical scarring from previous wounds noted. Unstageable Pressure Injury L hallux(L)3.5cm x (W)2.8cm. Base of wound has 90% loose necrotic cap,surrounding slough. Loose necrotic cap easily removed with saline moistened gauze. At base of wound is 100% yellow slough, marginal erythema with small area of necrosis noted along borders. Small amt seropurulent non-odorous exudate noted. Stable dry necrosis at L st metatarsal head. Tx.Plan: Cleanse wound R shoulder with Saline. Apply Therahoney. Apply Cavilon Skin Barrier periwound. Cover with Optifoam drsg. Change every 3 days and prn. Cleanse R hip with Saline. Loosely pack with Therahoney impregnated Kerlix. Apply Moisture Barrier Paste periwound. Cover with Optifoam drsg. Change Daily and prn. Apply Moisture Barrier Paste to Sacrum. Cover with Optifoam drsg. Change every 3 days and prn. Apply Betadine to R heel, R hallux,Distal/lateral R foot. Cover with Abd pad and wrap with Kerlix every 3 days and prn. Apply Betadine to L hallux,L 1st metatarsal head,L heel. Cover with Abd pads and wrap with Kerlix every 3 days and prn. Reposition Back to L Side at least every 2hours or as tolerated. Place Pillow between knees. Off-load heels with pillow. APM/TIEN Mattress overlay. (5) Suspected COVID-19 virus infection (6) Anemia Assessment & Plan: transfused prbc h/h stable trend labs Anshul Nava September 20, 2019 15:41
[2019-09-20] MEDS: Epoetin Alfa-EPBX(ESRD on dialysis)4000 units/ml vial SUBQ SCH (21:19)
[2019-09-21 04:00] VITALS: BP 102/63
--- NOTE | 2019-09-21 07:56 | General Progress Note ---
Assessment/Plan Assessment/Plan: Assessment/Plan Status: stable Assessment/Plan: 1. End-stage renal disease, on hemodialysis. 2. Anemia iron def 3. Dysphagia, status post G-tube placement. 4. Pneumonia. 5. Pancreatic cyst. 6. Hypertension. 7. elevated CEA of 10 8. CAD 9. UTI chart from prior admissions reviewed iv iron repeat stool ob>> neg transfuse to keep HGB above 7 GTF 40 cc HD per nephrology will fu Subjective ROS Limited/Unobtainable: No Allergies: Coded Allergies: No Known Allergies (Unverified , 06/24/19) Objective Last 24 Hour Vital Signs Date Time Temp Pulse Resp B/P (MAP) Pulse Ox O2 Delivery O2 Flow Rate FiO2 09/21/19 04:00 97.8 91 20 102/63 (76) 95 09/20/19 23:55 98.3 98 20 147/80 (102) 97 09/20/19 21:20 94 127/58 09/20/19 21:00 97.9 67 22 108/45 (66) 99 09/20/19 21:00 Room Air 09/20/19 16:00 97.4 79 18 116/56 (76) 99 09/20/19 13:44 98.5 09/20/19 12:00 98.5 69 18 118/64 (82) 98 09/20/19 09:40 73 115/56 09/20/19 09:00 Room Air 09/20/19 08:00 98.8 73 17 115/56 (75) 99 Intake and Output 09/20/19 09/21/19 19:00 07:00 Intake Total 690.0 ml Output Total 250 ml 1600 ml Balance 440.0 ml -1600 ml Free Water 300 ml IV Total 110.0 ml Tube Feeding 280 ml Output Urine Total 250 ml 100 ml Hemodialysis UF 1500 ml # Bowel Movements 2 1 Height (Feet): 5 Height (Inches): 6.00 Weight (Pounds): 117 General Appearance: lethargic EENT: normal ENT inspection Neck: normal alignment Cardiovascular: normal rate Respiratory/Chest: decreased breath sounds Abdomen: normal bowel sounds, non tender, soft Extremities: non-tender Jun Mena MD September 21, 2019 07:56
[2019-09-21 08:00] VITALS: BP 105/64
[2019-09-21] MEDS: Morphine Sulfate 2mg/ml Inj(IV/IM USE ONLY) IVP PRN ×2 (08:01→13:39)
--- NOTE | 2019-09-21 08:41 | Hematology/Onc Progress Note ---
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 Otherwise unremarkable pancreas --> as per gi, may need further eval with endsocopy --> with pancreatitis at this time, may be obscuring picture --> reimage in short order, 6 months --> ca19.9 60 but may be elevated due to pancreatitis --> cea of 10--> --> monitor lfts daily # Anemia of chronic disease due to underlying chronic medical issues, multifactorial v Gi bleed --> Anemia workup has been reviewed, ferritin 1300 -->1800 --> No evidence of hemolysis is noted, peripheral smear has been reviewed. --> Hgb goal >7. Transfuse prn. --> Epogen has been started --> IV IRON completed --> Medications have been reviewed --> hgb 6-->7.1-->12-->11.2-->-->11.6 -->11.9->9.2 --> 09/07 stool ob negative --> rbc: 2 units 09/10/2019, --> bone marrow biopsy is not indicated given the other more likely causes # Leukocytosis/elevated white blood cell count, unspecified likely related to underlying stress reaction, smoking v more likely infection in this case, uti now --> have reviewed peripheral smear and bandemia/neutrophilia noted --> monitor for resolution --> as per id care, on broad spectrum abx --> wbc 14-->12-->9-->14.9-->12->14->12 --> per id recs, on: cftx-->bethany/vanc-->zosyn/vanc --> blood cx++ x2 --> 09/19 urine cx++ # Thrombocytopenia - potential causes multifactorial, evaluate liver and viral etiologies to begin, in this case due to sepsisand pancreatitis --> Hep panel and HIV are both negative --> US abd to evaluate for cirrhosis and hsm --> pleural effusions noted, hsm is neg --> Peripheral smear ordered to evaluate for blasts /schistocytes --> abx and other meds have been reviewed --> ok for ppx if plt >50k w/ either heparin or lovenox # 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 Greatly appreciate consultation. Subjective Allergies: Coded Allergies: No Known Allergies (Unverified , 06/24/19) Subjective 09/09 obtunded, on tele, labs pending, stool ob negative, iv abx 09/10 s/p 2 units rbc, hgb improved to 12, on iv iron, hep b neg. 09/11 hd for today, h/h stable, no acute distress 09/12 nonverbal, no overnight events, bethany/vanc 09/13 le vishal duplex bilat negative, clood cx++ x2, no distress 09/14 labs noted, no bleeding, no night sweats, meds reviewed 09/15 hd as per renal, labs noted, no bleeding, no fc wbc 12k 09/16 cotninue on iv iron, labs noted, hgb relatively stable 09/19 for hd today, seenby renal, labs noted, no bleeding 09/20 urine cx+, today's labs pending, room air Objective Objective Current Medications Medications (Trade) Dose Ordered Sig/Joan Route PRN Reason Start Time Stop Time Status Last Admin Dose Admin Acetaminophen (Tylenol) 650 mg Q4H PRN GT Mild Pain (Pain Scale 1-3) 09/18/19 19:30 10/08/19 19:29 09/20/19 13:14 Amikacin Protocol (Amikacin pharmacy to dose) 1 ea DAILY PRN MISC Per rx protocol 09/19/19 17:45 10/19/19 17:44 Atorvastatin Calcium (Lipitor) 10 mg BEDTIME GT 09/18/19 21:00 12/07/19 20:59 09/20/19 21:19 Carvedilol (Coreg) 6.25 mg EVERY 12 HOURS GT 09/18/19 21:00 10/08/19 08:59 09/20/19 21:20 Epoetin Dion (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)) 4,000 unit MON-MON-MON SUBQ 09/18/19 21:00 12/17/19 20:59 09/20/19 21:19 Gabapentin (Neurontin) 300 mg THREE TIMES A DAY GT 09/19/19 09:00 10/19/19 08:59 09/20/19 17:55 Heparin Sodium (Porcine) (Heparin 5000 units/ml) 5,000 units EVERY 12 HOURS SUBQ 09/18/19 21:00 11/01/19 15:42 09/20/19 21:31 Loperamide HCl (Imodium) 2 mg Q6H PRN GT Diarrhea 09/18/19 19:30 10/13/19 19:29 09/20/19 17:55 Morphine Sulfate (Morphine Sulfate) 1 mg Q4H PRN IVP For Pain 09/18/19 19:30 09/22/19 11:29 09/21/19 08:01 Piperacillin Sod/ Tazobactam Sod 3.375 gm/Sodium Chloride 110 ml @ 27.5 mls/hr EVERY 12 HOURS IVPB 09/19/19 21:00 09/24/19 20:59 09/20/19 21:19 Vancomycin HCl (Vanco pharmacy to dose) 1 ea DAILY PRN MISC Per rx protocol 09/19/19 09:00 10/09/19 12:59 Last 24 Hour Vital Signs Date Time Temp Pulse Resp B/P (MAP) Pulse Ox O2 Delivery O2 Flow Rate FiO2 09/21/19 08:00 98.4 88 19 105/64 (78) 96 09/21/19 04:00 97.8 91 20 102/63 (76) 95 09/20/19 23:55 98.3 98 20 147/80 (102) 97 09/20/19 21:20 94 127/58 09/20/19 21:00 97.9 67 22 108/45 (66) 99 09/20/19 21:00 Room Air 09/20/19 16:00 97.4 79 18 116/56 (76) 99 09/20/19 13:44 98.5 09/20/19 12:00 98.5 69 18 118/64 (82) 98 09/20/19 09:40 73 115/56 09/20/19 09:00 Room Air 09/20/19 08:00 98.8 73 17 115/56 (75) 99 09/20/19 04:00 99.5 101 24 115/54 (74) 90 09/20/19 00:00 99.9 102 24 134/64 (87) 90 09/19/19 21:00 Room Air 09/19/19 20:35 110 133/70 09/19/19 20:00 98.6 110 24 133/70 (91) 93 09/19/19 16:00 98.1 95 17 111/59 (76) 94 09/19/19 14:39 99.9 09/19/19 12:45 98.7 09/19/19 12:00 101.1 92 19 136/62 (86) 94 09/19/19 09:16 108 137/65 09/19/19 09:00 Room Air Intake and Output 09/20/19 09/21/19 19:00 07:00 Intake Total 690.0 ml Output Total 250 ml 1600 ml Balance 440.0 ml -1600 ml Free Water 300 ml IV Total 110.0 ml Tube Feeding 280 ml Output Urine Total 250 ml 100 ml Hemodialysis UF 1500 ml # Bowel Movements 2 1 Labs Test 09/19/19 04:35 09/20/19 02:20 09/20/19 04:50 09/21/19 07:10 White Blood Count 12.7 K/UL (4.8-10.8) 12.2 K/UL (4.8-10.8) Red Blood Count 3.64 M/UL (4.20-5.40) 3.13 M/UL (4.20-5.40) Hemoglobin 10.7 G/DL (12.0-16.0) 9.2 G/DL (12.0-16.0) Hematocrit 32.3 % (37.0-47.0) 27.6 % (37.0-47.0) Mean Corpuscular Volume 89 FL (80-99) 88 FL (80-99) Mean Corpuscular Hemoglobin 29.4 PG (27.0-31.0) 29.5 PG (27.0-31.0) Mean Corpuscular Hemoglobin Concent 33.1 G/DL (32.0-36.0) 33.5 G/DL (32.0-36.0) Red Cell Distribution Width 13.8 % (11.6-14.8) 13.1 % (11.6-14.8) Platelet Count 289 K/UL (150-450) 261 K/UL (150-450) Mean Platelet Volume 6.8 FL (6.5-10.1) 6.7 FL (6.5-10.1) Neutrophils (%) (Auto) 64.0 % (45.0-75.0) 60.5 % (45.0-75.0) Lymphocytes (%) (Auto) 25.2 % (20.0-45.0) 29.7 % (20.0-45.0) Monocytes (%) (Auto) 7.2 % (1.0-10.0) 6.9 % (1.0-10.0) Eosinophils (%) (Auto) 2.9 % (0.0-3.0) 1.9 % (0.0-3.0) Basophils (%) (Auto) 0.7 % (0.0-2.0) 1.1 % (0.0-2.0) Sodium Level 139 MMOL/L (136-145) 137 MMOL/L (136-145) Potassium Level 3.8 MMOL/L (3.5-5.1) 4.3 MMOL/L (3.5-5.1) Chloride Level 101 MMOL/L (98-107) 99 MMOL/L (98-107) Carbon Dioxide Level 31 MMOL/L (21-32) 30 MMOL/L (21-32) Anion Gap 7 mmol/L (5-15) 8 mmol/L (5-15) Blood Urea Nitrogen 58 mg/dL (7-18) 76 mg/dL (7-18) Creatinine 3.7 MG/DL (0.55-1.30) 4.3 MG/DL (0.55-1.30) Estimat Glomerular Filtration Rate 13.9 mL/min (>60) 11.8 mL/min (>60) Glucose Level 118 MG/DL (74-106) 105 MG/DL (74-106) Calcium Level 9.6 MG/DL (8.5-10.1) 9.2 MG/DL (8.5-10.1) Phosphorus Level 2.6 MG/DL (2.5-4.9) Magnesium Level 2.4 MG/DL (1.8-2.4) Total Bilirubin 1.1 MG/DL (0.2-1.0) 1.3 MG/DL (0.2-1.0) Direct Bilirubin 0.2 MG/DL (0.0-0.3) 0.3 MG/DL (0.0-0.3) Aspartate Amino Transf (AST/SGOT) 18 U/L (15-37) 42 U/L (15-37) Alanine Aminotransferase (ALT/SGPT) 30 U/L (12-78) 32 U/L (12-78) Alkaline Phosphatase 80 U/L (46-116) 77 U/L (46-116) Total Protein 6.7 G/DL (6.4-8.2) 6.4 G/DL (6.4-8.2) Albumin 2.4 G/DL (3.4-5.0) 2.3 G/DL (3.4-5.0) Globulin 4.3 g/dL 4.1 g/dL Albumin/Globulin Ratio 0.6 (1.0-2.7) 0.6 (1.0-2.7) Random Vancomycin Level 19.5 ug/mL Urine Color Yellow Urine Appearance Cloudy Urine pH 8 (4.5-8.0) Urine Specific [place] 1.010 (1.005-1.035) Urine Protein 3+ (NEGATIVE) Urine Glucose (UA) Negative (NEGATIVE) Urine Ketones Negative (NEGATIVE) Urine Blood 5+ (NEGATIVE) Urine Nitrite Negative (NEGATIVE) Urine Bilirubin Negative (NEGATIVE) Urine Urobilinogen Normal MG/DL (0.0-1.0) Urine Leukocyte Esterase 3+ (NEGATIVE) Urine RBC Tntc /HPF (0 - 2) Urine WBC Tntc /HPF (0 - 2) Urine Squamous Epithelial Cells Few /LPF (NONE/OCC) Urine Bacteria Moderate /HPF (NONE) Urine Yeast Many /HPF (NONE) Height (Feet): 5 Height (Inches): 6.00 Weight (Pounds): 117 Objective Physical Exam: Vitals: reviewed General: NAD, groans to pain stimuli HEENT: nc, at Neck: supple Chest: clear breath sounds bilaterally Cardiovascular: RRR, no s3, s4 Abdomen: soft, nontender, nd ++ peg Extremities: no cce, normal range of motion Neuro: confused, nonverbal Skin: other - pressure sores to right side : beena+ Bola Aldridge MD September 21, 2019 08:40
[2019-09-21 08:43] LABS: BASOPHILS % (AUTO) 0.5 % (0.0-2.0); HEMATOCRIT 30.5 % (37.0-47.0); HEMOGLOBIN 10.1 G/DL (12.0-16.0); LYMPHOCYTES % (AUTO) 26.4 % (20.0-45.0); MEAN CORPUSCULAR VOLUME 89 FL (80-99); MONOCYTES % (AUTO) 7.6 % (1.0-10.0); NEUTROPHILS % (AUTO) 62.5 % (45.0-75.0); PLATELET COUNT 277 K/UL (150-450); RED BLOOD COUNT 3.44 M/UL (4.20-5.40); RED CELL DISTRIBUTION WIDTH 13.2 % (11.6-14.8); WHITE BLOOD COUNT 12.2 K/UL (4.8-10.8)
[2019-09-21 08:57] LABS: ALANINE AMINOTRANSFERASE 33 U/L (12-78); ALBUMIN 2.9 G/DL (3.4-5.0); ALBUMIN/GLOBULIN RATIO 0.8 (1.0-2.7); ALKALINE PHOSPHATASE 81 U/L (46-116); ANION GAP 7 mmol/L (5-15); ASPARTATE AMINO TRANSFERASE 39 U/L (15-37); BILIRUBIN,TOTAL 0.7 MG/DL (0.2-1.0); BLOOD UREA NITROGEN 49 mg/dL (7-18); CALCIUM 9.4 MG/DL (8.5-10.1); CARBON DIOXIDE 29 MMOL/L (21-32); CHLORIDE 103 MMOL/L (98-107); CREATININE 3.1 MG/DL (0.55-1.30); PHOSPHORUS 2.6 MG/DL (2.5-4.9); POTASSIUM 3.9 MMOL/L (3.5-5.1); SODIUM 139 MMOL/L (136-145)
--- NOTE | 2019-09-21 09:16 | Pulmonology Progress Note ---
Subjective ROS Limited/Unobtainable: No Interval Events: None new Constitutional: Reports: fever, fatigue, other - nad, cough earlier Gastrointestinal/Abdominal: Denies: nausea, vomiting Psychiatric: Reports: other - NA Skin: Denies: rash Musculoskeletal: Denies: pain Allergies: Coded Allergies: No Known Allergies (Unverified , 06/24/19) All Systems: reviewed and negative except above - All 12 point ROS negative Objective Last 24 Hour Vital Signs Date Time Temp Pulse Resp B/P (MAP) Pulse Ox O2 Delivery O2 Flow Rate FiO2 09/21/19 08:00 98.4 88 19 105/64 (78) 96 09/21/19 04:00 97.8 91 20 102/63 (76) 95 09/20/19 23:55 98.3 98 20 147/80 (102) 97 09/20/19 21:20 94 127/58 09/20/19 21:00 97.9 67 22 108/45 (66) 99 09/20/19 21:00 Room Air 09/20/19 16:00 97.4 79 18 116/56 (76) 99 09/20/19 13:44 98.5 09/20/19 12:00 98.5 69 18 118/64 (82) 98 09/20/19 09:40 73 115/56 Intake and Output 09/20/19 09/21/19 18:59 06:59 Intake Total 690.0 ml Output Total 250 ml 1600 ml Balance 440.0 ml -1600 ml Free Water 300 ml IV Total 110.0 ml Tube Feeding 280 ml Output Urine Total 250 ml 100 ml Hemodialysis UF 1500 ml # Bowel Movements 2 1 General Appearance: no acute distress HEENT: normocephalic Respiratory: chest wall non-tender, lungs clear Cardiovascular: normal peripheral pulses, normal rate Abdomen: normal bowel sounds Microbiology Date/Time Source Procedure Growth Status 09/19/19 18:35 Blood Blood Culture - Preliminary NO GROWTH AFTER 24 HOURS Resulted 09/19/19 18:25 Blood Blood Culture - Preliminary NO GROWTH AFTER 24 HOURS Resulted 09/19/19 16:30 Nasal Nares MRSA Culture - Final NO METHICILLIN RESISTANT STAPH AUREUS... Complete 09/20/19 02:20 Indwelling Cath Urine Culture - Preliminary Strep Species, Gamma-Hemolytic Resulted Laboratory Tests 09/21/19 07:10: White Blood Count 12.2H, Red Blood Count 3.44L, Hemoglobin 10.1L, Hematocrit 30.5L, Mean Corpuscular Volume 89, Mean Corpuscular Hemoglobin 29.5, Mean Corpuscular Hemoglobin Concent 33.1, Red Cell Distribution Width 13.2, Platelet Count 277, Mean Platelet Volume 6.9, Neutrophils (%) (Auto) 62.5, Lymphocytes (% ) (Auto) 26.4, Monocytes (%) (Auto) 7.6, Eosinophils (%) (Auto) 3.0, Basophils ( %) (Auto) 0.5, Sodium Level 139, Potassium Level 3.9, Chloride Level 103, Carbon Dioxide Level 29, Anion Gap 7, Blood Urea Nitrogen 49H, Creatinine 3.1H, Estimat Glomerular Filtration Rate 17.2, Glucose Level 134H, Calcium Level 9.4, Phosphorus Level 2.6, Magnesium Level 2.3, Total Bilirubin 0.7, Aspartate Amino Transf (AST/SGOT) 39H, Alanine Aminotransferase (ALT/SGPT) 33, Alkaline Phosphatase 81, Total Protein 6.6, Albumin 2.9L, Globulin 3.7, Albumin/Globulin Ratio 0.8L Current Medications Medications (Trade) Dose Ordered Sig/Joan Route PRN Reason Start Time Stop Time Status Last Admin Dose Admin Acetaminophen (Tylenol) 650 mg Q4H PRN GT Mild Pain (Pain Scale 1-3) 09/18/19 19:30 10/08/19 19:29 09/20/19 13:14 Amikacin Protocol (Amikacin pharmacy to dose) 1 ea DAILY PRN MISC Per rx protocol 09/19/19 17:45 10/19/19 17:44 Atorvastatin Calcium (Lipitor) 10 mg BEDTIME GT 09/18/19 21:00 12/07/19 20:59 09/20/19 21:19 Carvedilol (Coreg) 6.25 mg EVERY 12 HOURS GT 09/18/19 21:00 10/08/19 08:59 09/20/19 21:20 Epoetin Dion (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)) 4,000 unit MON-MON-MON SUBQ 09/18/19 21:00 12/17/19 20:59 09/20/19 21:19 Gabapentin (Neurontin) 300 mg THREE TIMES A DAY GT 09/19/19 09:00 10/19/19 08:59 09/20/19 17:55 Heparin Sodium (Porcine) (Heparin 5000 units/ml) 5,000 units EVERY 12 HOURS SUBQ 09/18/19 21:00 11/01/19 15:42 09/20/19 21:31 Loperamide HCl (Imodium) 2 mg Q6H PRN GT Diarrhea 09/18/19 19:30 10/13/19 19:29 09/20/19 17:55 Morphine Sulfate (Morphine Sulfate) 1 mg Q4H PRN IVP For Pain 09/18/19 19:30 09/22/19 11:29 09/21/19 08:01 Piperacillin Sod/ Tazobactam Sod 3.375 gm/Sodium Chloride 110 ml @ 27.5 mls/hr EVERY 12 HOURS IVPB 09/19/19 21:00 09/24/19 20:59 09/20/19 21:19 Vancomycin HCl (Vanco pharmacy to dose) 1 ea DAILY PRN MISC Per rx protocol 09/19/19 09:00 10/09/19 12:59 Assessment/Plan Assessment/Plan IMPRESSION: 1. UTI. 2. Anemia. 3. ESRD, on dialysis. 4. Initial COVID-19 negative. DISCUSSION: Continue current medications and care. Initial COVID-19 pcr negative Blood transfusion. Empiric antibiotics. Hemodialysis. Saturating well on RA I will follow carefully. Ross Nina Omar Syed MD September 21, 2019 09:16
[2019-09-21] MEDS: Carvedilol 6.25mg Tab GT SCH ×2 (09:24→20:59)
[2019-09-21] MEDS: Zosyn 3.375gm in NS 110ml IVPB SCH ×2 (09:25→22:06)
[2019-09-21] MEDS: Heparin 5000 units/ml inj SUBQ SCH ×2 (09:27→21:01)
--- NOTE | 2019-09-21 10:07 | Diagnostic Imaging Report ---
EXAM: XR Chest, 1 View CLINICAL HISTORY: INFECT TECHNIQUE: Frontal view of the chest. COMPARISON: Chest radiograph on 09/11/2019 FINDINGS: Hardware: Right dual-lumen central venous catheter which terminates in the region of the right atrium. Lungs/pleura: Similar diffuse interstitial opacities may represent chronic interstitial lung changes versus pulmonary vasculature congestion versus infectious/inflammatory process. No possible small left pleural effusion. Heart/mediastinum: Stable mild enlargement of the cardiac silhouette. Atherosclerotic calcifications of the aorta. Soft tissues: Unremarkable. Bones: No acute fracture. Degenerative changes of the spine. Upper abdomen: Normal. IMPRESSION: Similar diffuse interstitial opacities may represent chronic interstitial lung changes versus pulmonary vasculature congestion versus infectious/inflammatory process. No possible small left pleural effusion.
--- NOTE | 2019-09-21 11:45 | Nephrology Progress Note ---
Assessment/Plan Plan #ESRD on HD TTHS- #anemia of CKD #UTI #dysphagia s/p PEG #multiple pressure wounds #HTN -next HD monday - hemoglobin stable - STRICT I&Os - daily weights - replete lytes - prbc transfusion for hemoglobin < 7 - increased epo to 6k TIW - IV iron - monitor CBC - on amikacin vancomycin and zosyn - continue coreg 6.25mg BID - replete phos - monitor mag, phos and BMP daily Time spent 45 min > 50% on care coordination and counseling Subjective ROS Limited/Unobtainable: Yes Subjective DC held due to low grade fevers on amikacin, vanco and zosyn Labs reviewed will HD today hemoglobin stable Objective Objective Last 24 Hour Vital Signs Date Time Temp Pulse Resp B/P (MAP) Pulse Ox O2 Delivery O2 Flow Rate FiO2 09/21/19 09:24 88 105/64 09/21/19 09:00 Room Air 09/21/19 08:00 98.4 88 19 105/64 (78) 96 09/21/19 04:00 97.8 91 20 102/63 (76) 95 09/20/19 23:55 98.3 98 20 147/80 (102) 97 09/20/19 21:20 94 127/58 09/20/19 21:00 97.9 67 22 108/45 (66) 99 09/20/19 21:00 Room Air 09/20/19 16:00 97.4 79 18 116/56 (76) 99 09/20/19 13:44 98.5 09/20/19 12:00 98.5 69 18 118/64 (82) 98 Intake and Output 09/20/19 09/21/19 19:00 07:00 Intake Total 690.0 ml 40 ml Output Total 250 ml 1600 ml Balance 440.0 ml -1560 ml Free Water 300 ml IV Total 110.0 ml Tube Feeding 280 ml 40 ml Output Urine Total 250 ml 100 ml Hemodialysis UF 1500 ml # Bowel Movements 2 1 Laboratory Tests 09/21/19 07:10: White Blood Count 12.2H, Red Blood Count 3.44L, Hemoglobin 10.1L, Hematocrit 30.5L, Mean Corpuscular Volume 89, Mean Corpuscular Hemoglobin 29.5, Mean Corpuscular Hemoglobin Concent 33.1, Red Cell Distribution Width 13.2, Platelet Count 277, Mean Platelet Volume 6.9, Neutrophils (%) (Auto) 62.5, Lymphocytes (% ) (Auto) 26.4, Monocytes (%) (Auto) 7.6, Eosinophils (%) (Auto) 3.0, Basophils ( %) (Auto) 0.5, Sodium Level 139, Potassium Level 3.9, Chloride Level 103, Carbon Dioxide Level 29, Anion Gap 7, Blood Urea Nitrogen 49H, Creatinine 3.1H, Estimat Glomerular Filtration Rate 17.2, Glucose Level 134H, Calcium Level 9.4, Phosphorus Level 2.6, Magnesium Level 2.3, Total Bilirubin 0.7, Aspartate Amino Transf (AST/SGOT) 39H, Alanine Aminotransferase (ALT/SGPT) 33, Alkaline Phosphatase 81, Total Protein 6.6, Albumin 2.9L, Globulin 3.7, Albumin/Globulin Ratio 0.8L Height (Feet): 5 Height (Inches): 6.00 Weight (Pounds): 117 Objective General Appearance: confused, cachetic, thin Lines, tubes and drains: peripheral HEENT: normocephalic, atraumatic Respiratory/Chest: chest wall non-tender, no respiratory distress Cardiovascular/Chest: normal peripheral pulses Abdomen: feeding tube Extremities: non-pitting, no cyanosis, other - unable to move extremities. Skin Exam: other - pressure ulcers Rory Oconnor M.D. September 21, 2019 11:45
[2019-09-21 12:00] VITALS: BP 110/68
--- NOTE | 2019-09-21 13:48 | Surgery Progress Note ---
Surgery Progress Note Subjective Additional Comments no acute events exam stable comfortable Objective Last 24 Hour Vital Signs Date Time Temp Pulse Resp B/P (MAP) Pulse Ox O2 Delivery O2 Flow Rate FiO2 09/21/19 12:00 98.6 91 19 110/68 (82) 97 09/21/19 09:24 88 105/64 09/21/19 09:00 Room Air 09/21/19 08:00 98.4 88 19 105/64 (78) 96 09/21/19 04:00 97.8 91 20 102/63 (76) 95 09/20/19 23:55 98.3 98 20 147/80 (102) 97 09/20/19 21:20 94 127/58 09/20/19 21:00 97.9 67 22 108/45 (66) 99 09/20/19 21:00 Room Air 09/20/19 16:00 97.4 79 18 116/56 (76) 99 I&O Intake and Output 09/20/19 09/21/19 19:00 07:00 Intake Total 690.0 ml 40 ml Output Total 250 ml 1600 ml Balance 440.0 ml -1560 ml Free Water 300 ml IV Total 110.0 ml Tube Feeding 280 ml 40 ml Output Urine Total 250 ml 100 ml Hemodialysis UF 1500 ml # Bowel Movements 2 1 Dressing: other Wound: other Drains: other Cardiovascular: RSR Respiratory: decreased breath sounds Abdomen: soft, non-tender, present bowel sounds Extremities: no cyanosis Laboratory Tests Test 09/21/19 07:10 White Blood Count 12.2 K/UL (4.8-10.8) H Red Blood Count 3.44 M/UL (4.20-5.40) L Hemoglobin 10.1 G/DL (12.0-16.0) L Hematocrit 30.5 % (37.0-47.0) L Mean Corpuscular Volume 89 FL (80-99) Mean Corpuscular Hemoglobin 29.5 PG (27.0-31.0) Mean Corpuscular Hemoglobin Concent 33.1 G/DL (32.0-36.0) Red Cell Distribution Width 13.2 % (11.6-14.8) Platelet Count 277 K/UL (150-450) Mean Platelet Volume 6.9 FL (6.5-10.1) Neutrophils (%) (Auto) 62.5 % (45.0-75.0) Lymphocytes (%) (Auto) 26.4 % (20.0-45.0) Monocytes (%) (Auto) 7.6 % (1.0-10.0) Eosinophils (%) (Auto) 3.0 % (0.0-3.0) Basophils (%) (Auto) 0.5 % (0.0-2.0) Sodium Level 139 MMOL/L (136-145) Potassium Level 3.9 MMOL/L (3.5-5.1) Chloride Level 103 MMOL/L (98-107) Carbon Dioxide Level 29 MMOL/L (21-32) Anion Gap 7 mmol/L (5-15) Blood Urea Nitrogen 49 mg/dL (7-18) H Creatinine 3.1 MG/DL (0.55-1.30) H Estimat Glomerular Filtration Rate 17.2 mL/min (>60) Glucose Level 134 MG/DL (74-106) H Calcium Level 9.4 MG/DL (8.5-10.1) Phosphorus Level 2.6 MG/DL (2.5-4.9) Magnesium Level 2.3 MG/DL (1.8-2.4) Total Bilirubin 0.7 MG/DL (0.2-1.0) Aspartate Amino Transf (AST/SGOT) 39 U/L (15-37) H Alanine Aminotransferase (ALT/SGPT) 33 U/L (12-78) Alkaline Phosphatase 81 U/L (46-116) Total Protein 6.6 G/DL (6.4-8.2) Albumin 2.9 G/DL (3.4-5.0) L Globulin 3.7 g/dL Albumin/Globulin Ratio 0.8 (1.0-2.7) L Plan Problems: (1) COVID-19 ruled out Assessment & Plan: FINDINGS: Lungs: Left basilar opacity with volume loss, likely atelectasis however a focus of infection could have a similar appearance. Pleural space: No pleural effusion. No pneumothorax. Heart: Unremarkable. No cardiomegaly. Bones/joints: No fracture. Vasculature: Atherosclerotic calcifications. Tubes, lines and devices: Right IJ large bore dialysis catheter terminates within the right atrium. IMPRESSION: Left basilar opacity with volume loss, likely atelectasis however a focus of infection could have a similar appearance. leukocytosis anemia pending test (2) Protein calorie malnutrition Assessment & Plan: DAILY ESTIMATED NEEDS: Needs based on Wounds, HD 57kg 30-35 kcals/kg [id number] total kcals 1.25-1.8 g protein/kg 71-103 g total protein Fluids per MD mL/kg . total fluid mLs NUTRITION DIAGNOSIS: * Increased kcal and prot needs r/t wound healing and renal failure as evidenced by w/ multiple pressure injuries, including full thickness and unstageable wounds, refer to MD reports, pt w/ ESRD on HD, GT dep. CURRENT TF:Nepro @ 40ml/hr x 20 hrs ENTERAL NUTRITION RECOMMENDATIONS: Nepro @ 45ml/hr x 22 hrs to provide 990ml, 1782kcal, 80g prot, 720ml free water - Rec to INCREASE RATE AND RUNNING TIME ABOVE to better meet est kcal and pro needs - HOB over 30 degrees/ water flush per MD ADDITIONAL RECOMMENDATIONS: 1) Calibrated bedscale wt 2) Wound Care: add Nephrovite x 1 add Saw 1ptk BID via GT 3) Monitor BGs, consider NISS: BGs consistently mildly elevated 4) Monitor lytes and renal fxn (3) Pressure ulcer (4) Decubitus skin ulcer Assessment & Plan: Pt presented on admission with multiple Pressure injuries. Full thickness Pressure Injury R shoulder(L)2.8cm x (W)2cm. Base of wound is 75 % slough, 25% beefy red granulation. Slough removed with gentle friction. Post removal of slough,small amt slough at base of wound. Small amt sanguineous exudate. Edges flat and adherent to base of wound. Periwound without erythema, induration or fluctuance. Darker skin tone without induration ,fluctuance or tenderness at sacrococcygeal area. Non-blanching erythema and scattered areas of hyperpigmentation noted to R and L gluteal cheeks. Pt denied tenderness when affected areas palpated. Full thickness Pressure injury R hip (L)5.5cm x (W)10.2cm x (D)2.6cm. Base of wound is 75% pink granulation,25% Loose fibrinous slough. Bone is palpable.Edges flat ,pink and adherent to base of wound. Small amt. non-odorous serous exudate. Hypopigmentation noted to perineum and labia majora. Unstageable Pressure Injury R heel(L)3.5cm x (W)3.3cm . Base of wound is 100% necrotic with semidetached with surrounding yellow slough. Edges area dry, black. Periwound is non-blanchable and fluctuant. Maroon discoloration with fluctuance noted to distal/lateral R foot (L)2.8cm x ( W)2.5cm. Resolving pressure injury R Hallux(L)3.5cm x (W)3.3cm.Kinmundy epithelial at base of wound with surrounding dry brown borders. L heel is boggy with non-blanching erythema.Historical scarring from previous wounds noted. Unstageable Pressure Injury L hallux(L)3.5cm x (W)2.8cm. Base of wound has 90% loose necrotic cap,surrounding slough. Loose necrotic cap easily removed with saline moistened gauze. At base of wound is 100% yellow slough, marginal erythema with small area of necrosis noted along borders. Small amt seropurulent non-odorous exudate noted. Stable dry necrosis at L st metatarsal head. Tx.Plan: Cleanse wound R shoulder with Saline. Apply Therahoney. Apply Cavilon Skin Barrier periwound. Cover with Optifoam drsg. Change every 3 days and prn. Cleanse R hip with Saline. Loosely pack with Therahoney impregnated Kerlix. Apply Moisture Barrier Paste periwound. Cover with Optifoam drsg. Change Daily and prn. Apply Moisture Barrier Paste to Sacrum. Cover with Optifoam drsg. Change every 3 days and prn. Apply Betadine to R heel, R hallux,Distal/lateral R foot. Cover with Abd pad and wrap with Kerlix every 3 days and prn. Apply Betadine to L hallux,L 1st metatarsal head,L heel. Cover with Abd pads and wrap with Kerlix every 3 days and prn. Reposition Back to L Side at least every 2hours or as tolerated. Place Pillow between knees. Off-load heels with pillow. APM/TIEN Mattress overlay. (5) Suspected COVID-19 virus infection (6) Anemia Assessment & Plan: transfused prbc h/h stable trend labs Anshul Nava September 21, 2019 13:48
--- NOTE | 2019-09-21 14:10 | Infectious Diseases Prog Note ---
Assessment/Plan Assessment/Plan ASSESSMENT AND PLAN: 1. 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 septic again, ? source streptococcus uti, ? vre, possible aspiration pna/hcap - zosyn, amikacin, add zyvox - discontinue vancomycin - f/u on cultures and chest x -ray - monitor labs - covid-19 pcr neg x 2- remove isolation - clinically better today, more alert, no fevers 2. She has history of hemodialysis, end-stage renal disease, chronic kidney disease. 3. The patient has history of hypertension. 4. Anemia. 5. Elevated creatinine. 6. Hypertension treatment per primary care team. 7. Wound care per Surgery. 8. Dysphagia, G-tube 9. No known drug allergies. 10. Social history is negative. 11. Family History is noncontributory. 12. MAR was noted. 13. Case discussed with RN. 14. Continue treatment per primary consultants. 15. Orders were noted and entered. Subjective Constitutional: Reports: fever - less, fatigue, other - more alert, + bs HEENT: Reports: other Respiratory: Reports: shortness of breath Cardiovascular: Denies: chest pain Gastrointestinal/Abdominal: Denies: nausea, diarrhea Genitourinary: Reports: other - + hargrove Neurologic: Reports: weakness, other - more alert Psychiatric: Reports: other - NA Skin: Denies: rash Hematologic: Denies: bleeding Musculoskeletal: Denies: pain Allergies: Coded Allergies: No Known Allergies (Unverified , 06/24/19) Objective Vital Signs Last 24 Hour Vital Signs Date Time Temp Pulse Resp B/P (MAP) Pulse Ox O2 Delivery O2 Flow Rate FiO2 09/21/19 12:00 98.6 91 19 110/68 (82) 97 09/21/19 09:24 88 105/64 09/21/19 09:00 Room Air 09/21/19 08:00 98.4 88 19 105/64 (78) 96 09/21/19 04:00 97.8 91 20 102/63 (76) 95 09/20/19 23:55 98.3 98 20 147/80 (102) 97 09/20/19 21:20 94 127/58 09/20/19 21:00 97.9 67 22 108/45 (66) 99 09/20/19 21:00 Room Air 09/20/19 16:00 97.4 79 18 116/56 (76) 99 Height (Feet): 5 Height (Inches): 6.00 Weight (Pounds): 117 General Appearance: other - + bm, some sob, more alert HEENT: normocephalic, atraumatic, anicteric Respiratory/Chest: crackles/rales, rhonchi - bilaterally Cardiovascular: normal rate, regular rhythm, no gallop/murmur, no JVD Abdomen: normal bowel sounds, soft, non tender, no organomegaly, non distended Genitourinary: other - + hargrove - urine clear Extremities: no cyanosis Skin: no rash Neurologic/Psychiatric: 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 Comparison films: 09/07/2019. FINDINGS: Right central venous catheter remains in place. Vascularity is normal. Mild left basilar hazy densities unchanged. Cardiac and mediastinal silhouette are within normal limits. There may be a trace left effusion. The bony thorax appear unremarkable. IMPRESSION: NO ACUTE CARDIOPULMONARY DISEASE. Chest x-ray - 09/21/19 - IMPRESSION: Similar diffuse interstitial opacities may represent chronic interstitial lung changes versus pulmonary vasculature congestion versus infectious/inflammatory process. No possible small left pleural effusion. Microbiology Date/Time Source Procedure Growth Status 09/19/19 18:35 Blood Blood Culture - Preliminary NO GROWTH AFTER 24 HOURS Resulted 09/19/19 18:25 Blood Blood Culture - Preliminary NO GROWTH AFTER 24 HOURS Resulted 09/19/19 16:30 Nasal Nares MRSA Culture - Final NO METHICILLIN RESISTANT STAPH AUREUS... Complete 09/20/19 02:20 Indwelling Cath Urine Culture - Preliminary Strep Species, Gamma-Hemolytic Resulted Laboratory Tests Test 09/21/19 07:10 White Blood Count 12.2 K/UL (4.8-10.8) H Red Blood Count 3.44 M/UL (4.20-5.40) L Hemoglobin 10.1 G/DL (12.0-16.0) L Hematocrit 30.5 % (37.0-47.0) L Mean Corpuscular Volume 89 FL (80-99) Mean Corpuscular Hemoglobin 29.5 PG (27.0-31.0) Mean Corpuscular Hemoglobin Concent 33.1 G/DL (32.0-36.0) Red Cell Distribution Width 13.2 % (11.6-14.8) Platelet Count 277 K/UL (150-450) Mean Platelet Volume 6.9 FL (6.5-10.1) Neutrophils (%) (Auto) 62.5 % (45.0-75.0) Lymphocytes (%) (Auto) 26.4 % (20.0-45.0) Monocytes (%) (Auto) 7.6 % (1.0-10.0) Eosinophils (%) (Auto) 3.0 % (0.0-3.0) Basophils (%) (Auto) 0.5 % (0.0-2.0) Sodium Level 139 MMOL/L (136-145) Potassium Level 3.9 MMOL/L (3.5-5.1) Chloride Level 103 MMOL/L (98-107) Carbon Dioxide Level 29 MMOL/L (21-32) Anion Gap 7 mmol/L (5-15) Blood Urea Nitrogen 49 mg/dL (7-18) H Creatinine 3.1 MG/DL (0.55-1.30) H Estimat Glomerular Filtration Rate 17.2 mL/min (>60) Glucose Level 134 MG/DL (74-106) H Calcium Level 9.4 MG/DL (8.5-10.1) Phosphorus Level 2.6 MG/DL (2.5-4.9) Magnesium Level 2.3 MG/DL (1.8-2.4) Total Bilirubin 0.7 MG/DL (0.2-1.0) Aspartate Amino Transf (AST/SGOT) 39 U/L (15-37) H Alanine Aminotransferase (ALT/SGPT) 33 U/L (12-78) Alkaline Phosphatase 81 U/L (46-116) Total Protein 6.6 G/DL (6.4-8.2) Albumin 2.9 G/DL (3.4-5.0) L Globulin 3.7 g/dL Albumin/Globulin Ratio 0.8 (1.0-2.7) L Current Medications Medications (Trade) Dose Ordered Sig/Joan Route PRN Reason Start Time Stop Time Status Last Admin Dose Admin Acetaminophen (Tylenol) 650 mg Q4H PRN GT Mild Pain (Pain Scale 1-3) 09/18/19 19:30 10/08/19 19:29 09/20/19 13:14 Amikacin Protocol (Amikacin pharmacy to dose) 1 ea DAILY PRN MISC Per rx protocol 09/19/19 17:45 10/19/19 17:44 Atorvastatin Calcium (Lipitor) 10 mg BEDTIME GT 09/18/19 21:00 12/07/19 20:59 09/20/19 21:19 Carvedilol (Coreg) 6.25 mg EVERY 12 HOURS GT 09/18/19 21:00 10/08/19 08:59 09/21/19 09:24 Epoetin Dion (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)) 4,000 unit MON-MON-MON SUBQ 09/18/19 21:00 12/17/19 20:59 09/20/19 21:19 Gabapentin (Neurontin) 300 mg THREE TIMES A DAY GT 09/19/19 09:00 10/19/19 08:59 09/21/19 13:37 Heparin Sodium (Porcine) (Heparin 5000 units/ml) 5,000 units EVERY 12 HOURS SUBQ 09/18/19 21:00 11/01/19 15:42 09/21/19 09:27 Loperamide HCl (Imodium) 2 mg Q6H PRN GT Diarrhea 09/18/19 19:30 10/13/19 19:29 09/20/19 17:55 Morphine Sulfate (Morphine Sulfate) 1 mg Q4H PRN IVP For Pain 09/18/19 19:30 09/22/19 11:29 09/21/19 13:39 Piperacillin Sod/ Tazobactam Sod 3.375 gm/Sodium Chloride 110 ml @ 27.5 mls/hr EVERY 12 HOURS IVPB 09/19/19 21:00 09/24/19 20:59 09/21/19 09:25 Vancomycin HCl (Vanco pharmacy to dose) 1 ea DAILY PRN MISC Per rx protocol 09/19/19 09:00 10/09/19 12:59 Ana Rosado MD September 21, 2019 14:10
[2019-09-21] MEDS ORDERED: NS 275ml ONE (15:40)
--- NOTE | 2019-09-21 15:59 | General Progress Note ---
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 Patient is being placed in observation unit for further medical work up #ESRD on HD #Anemia of Chronic Disease #Type II ND demand Ischemia, HTN #Dementia, Peg tube dependent, Functional Quadriplegia and associated associated pressure ulcers Plan Patient spiked fevers again so was started back on Tx w/ Amikacin, Zosyn, Vancomycin; pending repeat Cxs and ID w/u. HD as scheduled w/ epogen dosing. Coreg, ASA, Atorvastatin. DVT ppx, supportive measures. Tube Feeds. Appreciate Consultants. Monitor in med surg #Sepsis 2/2 Klebsiella UTI and VRE Bacteremia--> spiked fevers again, so started back on tx on 09/18 w/ repeat Horton Cx #Urinary tract infection-Complicated: #Indwelling Hargrove catheter for wound protection -Appreciate ID recommendations. D/w Dr. Lynn - Continue zosyn, amikacin (09/18 - ) - START zyvox (09/20 - ) - D/c Vanc - follow cultures - check C diff #ESRD on HD #Acute on chronic anemia, now resolved #Anemia of ESRD -Serum hgb:7.4 -Continue to monitor; CBC Q 8H -cont. to monitor for signs/symptoms of bleeding -Transfuse for hgb <7.0 -EPOGEN per nephro -Dr. Oconnor (nephrology) on board. Appreciate further recommendations. #HTN #elevated troponin #Elevated BNP -trops stable at baseline -likely due to demand ischemia, ESRD, sepsis -ASA, statin -Continue home Lasix -hydralazine PRN for SBP >160 -Carvedilol 6.25 mg BID -Cardio following consult in the A.M. #Dysphagia -s/p PEG -tolerating TF -Dietary and GI following, recs appreciated #Advanced Dementia -stable -neuro following, appreciate recs #Pressure wounds -Will consult wound care F: Tube feeding E:Monitor and replete PRN N: Tube feeding. DVT PPx: HSQ Spent 42 minutes on the patient's case and 23 on counseling and care coordination. Case discussed with RN at the bedside, nephrology, infecitous disease. I spent an additional 31 minutes reviewing medical records including prior hospitalization notes, clinic notes, consultation notes, prior labs, and prior imaging. Subjective Date patient seen: September 21, 2019 Allergies: Coded Allergies: No Known Allergies (Unverified , 06/24/19) Subjective Chart reviewed. Patient spiked another fever 2 days ago. Discharge held. Restarted on broad Abx per ID. Still lethargic. Does not answer questions ROS unable to obtain due to ALOC Objective Last 24 Hour Vital Signs Date Time Temp Pulse Resp B/P (MAP) Pulse Ox O2 Delivery O2 Flow Rate FiO2 09/21/19 12:00 98.6 91 19 110/68 (82) 97 09/21/19 09:24 88 105/64 09/21/19 09:00 Room Air 09/21/19 08:00 98.4 88 19 105/64 (78) 96 09/21/19 04:00 97.8 91 20 102/63 (76) 95 09/20/19 23:55 98.3 98 20 147/80 (102) 97 09/20/19 21:20 94 127/58 09/20/19 21:00 97.9 67 22 108/45 (66) 99 09/20/19 21:00 Room Air 09/20/19 16:00 97.4 79 18 116/56 (76) 99 Intake and Output 09/20/19 09/21/19 19:00 07:00 Intake Total 690.0 ml 40 ml Output Total 250 ml 1600 ml Balance 440.0 ml -1560 ml Free Water 300 ml IV Total 110.0 ml Tube Feeding 280 ml 40 ml Output Urine Total 250 ml 100 ml Hemodialysis UF 1500 ml # Bowel Movements 2 1 Laboratory Tests 09/21/19 07:10: White Blood Count 12.2H, Red Blood Count 3.44L, Hemoglobin 10.1L, Hematocrit 30.5L, Mean Corpuscular Volume 89, Mean Corpuscular Hemoglobin 29.5, Mean Corpuscular Hemoglobin Concent 33.1, Red Cell Distribution Width 13.2, Platelet Count 277, Mean Platelet Volume 6.9, Neutrophils (%) (Auto) 62.5, Lymphocytes (% ) (Auto) 26.4, Monocytes (%) (Auto) 7.6, Eosinophils (%) (Auto) 3.0, Basophils ( %) (Auto) 0.5, Sodium Level 139, Potassium Level 3.9, Chloride Level 103, Carbon Dioxide Level 29, Anion Gap 7, Blood Urea Nitrogen 49H, Creatinine 3.1H, Estimat Glomerular Filtration Rate 17.2, Glucose Level 134H, Calcium Level 9.4, Phosphorus Level 2.6, Magnesium Level 2.3, Total Bilirubin 0.7, Aspartate Amino Transf (AST/SGOT) 39H, Alanine Aminotransferase (ALT/SGPT) 33, Alkaline Phosphatase 81, Total Protein 6.6, Albumin 2.9L, Globulin 3.7, Albumin/Globulin Ratio 0.8L Height (Feet): 5 Height (Inches): 6.00 Weight (Pounds): 117 Objective General: Chronically ill appearing female in NAD, lethargic but arousable HEENT: Normocephalic cephalic atraumatic, pupils equal round reactive to light and accommodation, nares patent and no symmetrical, no tonsillar exudates, mucous membranes moist CV: Regular rate regular rhythm, no murmurs, rubs, or gallops Pulm: Lungs clear to auscultation bilaterally. No wheezes, rhonchi, or rales GI: Soft, nontender, nondistended, bowel sounds present Neuro: CN 2-12 intact bilaterally, no focal signs. Ext: No lower extremity edema bilaterally Skin: Multiple pressure ulcers. See wound photos : Chronic hargrove in place Msk: Joints symmetrical in upper extremity and lower extremity bilaterally, no joint swelling. Lymph: No lymphadenopathy in upper extremity and lower extremity Sanchez Neri D.O. September 21, 2019 15:59
[2019-09-21 16:00] VITALS: BP 135/76
[2019-09-21 20:00] VITALS: BP 105/48
--- NOTE | 2019-09-21 20:51 | Neurology Progress Note ---
Interim History Interim History ROS Limited/Unobtainable: No Interim History 89-year-old female with history of ESRD on HD, dysphagia s/p PEG, multiple pressure wounds, HTN presenting from dialysis center after she was found to have serum hgb level of 6.0. Patient is non-verbal and immobile and resides at a [facility]. History is obtained from the ED physician and the medical chart. Of note patient was recently hospitalized at [facility] for sepsis and pseudomonas pneumonia and was received appropriate tx with antibiotics. On arrival to the ED, patient's vitals significant for B.P: 156/72mmhg. The CBC showed serum hgb: 7.4 The UA was significant for highly elevated WBC and RBC and 3+ LE. Patient is being admitted for further observation and medical management. Well known to me, worsening dementia, mon vebral Objective Physical Exam Last Vital Signs Date Time Temp Pulse Resp B/P (MAP) Pulse Ox O2 Delivery O2 Flow Rate FiO2 09/21/19 16:00 98.5 80 20 135/76 (95) 97 09/21/19 09:00 Room Air Laboratory Tests Test 09/21/19 07:10 White Blood Count 12.2 K/UL (4.8-10.8) H Red Blood Count 3.44 M/UL (4.20-5.40) L Hemoglobin 10.1 G/DL (12.0-16.0) L Hematocrit 30.5 % (37.0-47.0) L Mean Corpuscular Volume 89 FL (80-99) Mean Corpuscular Hemoglobin 29.5 PG (27.0-31.0) Mean Corpuscular Hemoglobin Concent 33.1 G/DL (32.0-36.0) Red Cell Distribution Width 13.2 % (11.6-14.8) Platelet Count 277 K/UL (150-450) Mean Platelet Volume 6.9 FL (6.5-10.1) Neutrophils (%) (Auto) 62.5 % (45.0-75.0) Lymphocytes (%) (Auto) 26.4 % (20.0-45.0) Monocytes (%) (Auto) 7.6 % (1.0-10.0) Eosinophils (%) (Auto) 3.0 % (0.0-3.0) Basophils (%) (Auto) 0.5 % (0.0-2.0) Sodium Level 139 MMOL/L (136-145) Potassium Level 3.9 MMOL/L (3.5-5.1) Chloride Level 103 MMOL/L (98-107) Carbon Dioxide Level 29 MMOL/L (21-32) Anion Gap 7 mmol/L (5-15) Blood Urea Nitrogen 49 mg/dL (7-18) H Creatinine 3.1 MG/DL (0.55-1.30) H Estimat Glomerular Filtration Rate 17.2 mL/min (>60) Glucose Level 134 MG/DL (74-106) H Calcium Level 9.4 MG/DL (8.5-10.1) Phosphorus Level 2.6 MG/DL (2.5-4.9) Magnesium Level 2.3 MG/DL (1.8-2.4) Total Bilirubin 0.7 MG/DL (0.2-1.0) Aspartate Amino Transf (AST/SGOT) 39 U/L (15-37) H Alanine Aminotransferase (ALT/SGPT) 33 U/L (12-78) Alkaline Phosphatase 81 U/L (46-116) Total Protein 6.6 G/DL (6.4-8.2) Albumin 2.9 G/DL (3.4-5.0) L Globulin 3.7 g/dL Albumin/Globulin Ratio 0.8 (1.0-2.7) L Head: normocophalic Neck: no rigidity Neurologic Exam Objective somnolent, non verbal not following withdraws to pain Impression/Recommendations Problems: (1) COVID-19 ruled out (2) UTI (urinary tract infection) (3) Acute anemia (4) Suspected COVID-19 virus infection (5) Anemia (6) Sepsis (7) Chronic kidney failure (8) Bacteremia due to Pseudomonas (9) Decubitus skin ulcer (10) Fever (11) Rhabdomyolysis (12) Elevated troponin (13) KAREN (acute kidney injury) (14) Elevated brain natriuretic peptide (BNP) level (15) ESRD (end stage renal disease) on dialysis (16) Pressure ulcer (17) Protein calorie malnutrition (18) Dysphagia Diagnostic Impression Acute on chronic encephalopathy, metabolic, sepsis ESRD on HD Sepsis 2/2 Klebsiella UTI and VRE Bacteremia--> course complete w/ meropenem and vancomycin on 09/17 Dementia, Peg tube dependent, Functional Quadriplegia and associated associated pressure ulcers Pancreatic lesion; evaluated by Sushil Madison MD September 21, 2019 20:51
[2019-09-22] VITALS: BP 98/50
[2019-09-22 04:00] VITALS: BP 114/68
--- NOTE | 2019-09-22 06:55 | General Progress Note ---
Assessment/Plan Assessment/Plan: Assessment/Plan Status: stable Assessment/Plan: 1. End-stage renal disease, on hemodialysis. 2. Anemia iron def 3. Dysphagia, status post G-tube placement. 4. Pneumonia. 5. Pancreatic cyst. 6. Hypertension. 7. elevated CEA of 10 8. CAD 9. UTI chart from prior admissions reviewed iv iron repeat stool ob>> neg transfuse to keep HGB above 7 GTF 40 cc HD per nephrology will fu Subjective ROS Limited/Unobtainable: No Allergies: Coded Allergies: No Known Allergies (Unverified , 06/24/19) Objective Last 24 Hour Vital Signs Date Time Temp Pulse Resp B/P (MAP) Pulse Ox O2 Delivery O2 Flow Rate FiO2 09/22/19 04:00 98.4 104 20 114/68 (83) 95 09/22/19 00:00 98.4 89 21 98/50 (66) 95 09/21/19 21:00 Room Air 09/21/19 20:59 96 105/48 09/21/19 20:00 98.1 96 21 105/48 (67) 94 09/21/19 16:00 98.5 80 20 135/76 (95) 97 09/21/19 12:00 98.6 91 19 110/68 (82) 97 09/21/19 09:24 88 105/64 09/21/19 09:00 Room Air 09/21/19 08:00 98.4 88 19 105/64 (78) 96 Intake and Output 09/21/19 09/22/19 18:59 06:59 Intake Total 530.0 ml 1040.0 ml Output Total 200 ml Balance 530.0 ml 840.0 ml Free Water 100 ml 150 ml IV Total 110.0 ml 410.0 ml Tube Feeding 320 ml 480 ml Output Urine Total 200 ml # Voids 1 # Bowel Movements 1 Laboratory Tests 09/21/19 07:10: White Blood Count 12.2H, Red Blood Count 3.44L, Hemoglobin 10.1L, Hematocrit 30.5L, Mean Corpuscular Volume 89, Mean Corpuscular Hemoglobin 29.5, Mean Corpuscular Hemoglobin Concent 33.1, Red Cell Distribution Width 13.2, Platelet Count 277, Mean Platelet Volume 6.9, Neutrophils (%) (Auto) 62.5, Lymphocytes (% ) (Auto) 26.4, Monocytes (%) (Auto) 7.6, Eosinophils (%) (Auto) 3.0, Basophils ( %) (Auto) 0.5, Sodium Level 139, Potassium Level 3.9, Chloride Level 103, Carbon Dioxide Level 29, Anion Gap 7, Blood Urea Nitrogen 49H, Creatinine 3.1H, Estimat Glomerular Filtration Rate 17.2, Glucose Level 134H, Calcium Level 9.4, Phosphorus Level 2.6, Magnesium Level 2.3, Total Bilirubin 0.7, Aspartate Amino Transf (AST/SGOT) 39H, Alanine Aminotransferase (ALT/SGPT) 33, Alkaline Phosphatase 81, Total Protein 6.6, Albumin 2.9L, Globulin 3.7, Albumin/Globulin Ratio 0.8L Height (Feet): 5 Height (Inches): 6.00 Weight (Pounds): 117 General Appearance: no apparent distress EENT: normal ENT inspection Neck: supple Cardiovascular: normal rate Respiratory/Chest: decreased breath sounds Abdomen: normal bowel sounds, non tender, soft Extremities: non-tender Jun Mena MD September 22, 2019 06:55
--- NOTE | 2019-09-22 07:27 | Cardiac Electrophysiology PN ---
Assessment/Plan Assessment/Plan 1. BNP of more than 6000. On HD. EF 65%. Ruled out for CO On HD 2. Hypertension. Continue Coreg 6.25 mg b.i.d. and HD 3. Recurrent fever and high WBC and UTI. On Abx per Dr. Rosado. 4. Dysphagia, status post PEG placement. 5. Dementia. 6. ESRD on HD per Dr. Bowen. 7. Severe anemia Hb 6.9, S/P 2 units of PRBC DW RN Subjective Subjective Nonverbal. DC to [facility] cancelled as had T 101.4 and Abx now is changed. RN at bedside.Covid negative x 2 Objective Last 24 Hour Vital Signs Date Time Temp Pulse Resp B/P (MAP) Pulse Ox O2 Delivery O2 Flow Rate FiO2 09/22/19 04:00 98.4 104 20 114/68 (83) 95 09/22/19 00:00 98.4 89 21 98/50 (66) 95 09/21/19 21:00 Room Air 09/21/19 20:59 96 105/48 09/21/19 20:00 98.1 96 21 105/48 (67) 94 09/21/19 16:00 98.5 80 20 135/76 (95) 97 09/21/19 12:00 98.6 91 19 110/68 (82) 97 09/21/19 09:24 88 105/64 09/21/19 09:00 Room Air 09/21/19 08:00 98.4 88 19 105/64 (78) 96 Intake and Output 09/21/19 09/22/19 19:00 07:00 Intake Total 530.0 ml 1000.0 ml Output Total 200 ml Balance 530.0 ml 800.0 ml Free Water 100 ml 150 ml IV Total 110.0 ml 410.0 ml Tube Feeding 320 ml 440 ml Output Urine Total 200 ml # Voids 1 # Bowel Movements 1 Microbiology Date/Time Source Procedure Growth Status 09/19/19 18:35 Blood Blood Culture - Preliminary NO GROWTH AFTER 48 HOURS Resulted 09/19/19 18:25 Blood Blood Culture - Preliminary NO GROWTH AFTER 48 HOURS Resulted 09/19/19 16:30 Nasal Nares MRSA Culture - Final NO METHICILLIN RESISTANT STAPH AUREUS... Complete 09/20/19 02:20 Indwelling Cath Urine Culture - Preliminary Strep Species, Gamma-Hemolytic Resulted Objective HEAD AND NECK: No JVD. LUNGS: Coarse rhonchi. CARDIOVASCULAR: Regular S1 and S2 with no gallop. ABDOMEN: Status post G-tube. EXTREMITIES: No pitting edema. Cristopher Osman MD September 22, 2019 07:26
--- NOTE | 2019-09-22 07:43 | Pulmonology Progress Note ---
Subjective ROS Limited/Unobtainable: No Interval Events: None new Constitutional: Reports: fever - less, fatigue, other - more alert, + bs Gastrointestinal/Abdominal: Denies: nausea, diarrhea Psychiatric: Reports: other - NA Skin: Denies: rash Musculoskeletal: Denies: pain Allergies: Coded Allergies: No Known Allergies (Unverified , 06/24/19) All Systems: reviewed and negative except above - All 12 point ROS negative Objective Last 24 Hour Vital Signs Date Time Temp Pulse Resp B/P (MAP) Pulse Ox O2 Delivery O2 Flow Rate FiO2 09/22/19 04:00 98.4 104 20 114/68 (83) 95 09/22/19 00:00 98.4 89 21 98/50 (66) 95 09/21/19 21:00 Room Air 09/21/19 20:59 96 105/48 09/21/19 20:00 98.1 96 21 105/48 (67) 94 09/21/19 16:00 98.5 80 20 135/76 (95) 97 09/21/19 12:00 98.6 91 19 110/68 (82) 97 09/21/19 09:24 88 105/64 09/21/19 09:00 Room Air 09/21/19 08:00 98.4 88 19 105/64 (78) 96 Intake and Output 09/21/19 09/22/19 19:00 07:00 Intake Total 530.0 ml 1000.0 ml Output Total 200 ml Balance 530.0 ml 800.0 ml Free Water 100 ml 150 ml IV Total 110.0 ml 410.0 ml Tube Feeding 320 ml 440 ml Output Urine Total 200 ml # Voids 1 # Bowel Movements 1 General Appearance: no acute distress HEENT: normocephalic Respiratory: chest wall non-tender, lungs clear Cardiovascular: normal peripheral pulses, normal rate Abdomen: normal bowel sounds Microbiology Date/Time Source Procedure Growth Status 09/19/19 18:35 Blood Blood Culture - Preliminary NO GROWTH AFTER 48 HOURS Resulted 09/19/19 18:25 Blood Blood Culture - Preliminary NO GROWTH AFTER 48 HOURS Resulted 09/19/19 16:30 Nasal Nares MRSA Culture - Final NO METHICILLIN RESISTANT STAPH AUREUS... Complete 09/20/19 02:20 Indwelling Cath Urine Culture - Preliminary Strep Species, Gamma-Hemolytic Resulted Current Medications Medications (Trade) Dose Ordered Sig/Joan Route PRN Reason Start Time Stop Time Status Last Admin Dose Admin Acetaminophen (Tylenol) 650 mg Q4H PRN GT Mild Pain (Pain Scale 1-3) 09/18/19 19:30 10/08/19 19:29 09/20/19 13:14 Amikacin Protocol (Amikacin pharmacy to dose) 1 ea DAILY PRN MISC Per rx protocol 09/19/19 17:45 10/19/19 17:44 Atorvastatin Calcium (Lipitor) 10 mg BEDTIME GT 09/18/19 21:00 12/07/19 20:59 09/21/19 20:59 Carvedilol (Coreg) 6.25 mg EVERY 12 HOURS GT 09/18/19 21:00 10/08/19 08:59 09/21/19 20:59 Epoetin Dion (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)) 4,000 unit MON-MON-MON SUBQ 09/18/19 21:00 12/17/19 20:59 09/20/19 21:19 Gabapentin (Neurontin) 300 mg THREE TIMES A DAY GT 09/19/19 09:00 10/19/19 08:59 09/21/19 17:27 Heparin Sodium (Porcine) (Heparin 5000 units/ml) 5,000 units EVERY 12 HOURS SUBQ 09/18/19 21:00 11/01/19 15:42 09/21/19 21:01 Linezolid 300 ml @ 300 mls/hr EVERY 12 HOURS IVPB 09/21/19 21:00 09/28/19 20:59 09/21/19 21:00 Loperamide HCl (Imodium) 2 mg Q6H PRN GT Diarrhea 09/18/19 19:30 10/13/19 19:29 09/21/19 17:27 Morphine Sulfate (Morphine Sulfate) 1 mg Q4H PRN IVP For Pain 09/18/19 19:30 09/22/19 11:29 09/21/19 13:39 Piperacillin Sod/ Tazobactam Sod 3.375 gm/Sodium Chloride 110 ml @ 27.5 mls/hr EVERY 12 HOURS IVPB 09/19/19 21:00 09/24/19 20:59 09/21/19 22:06 Assessment/Plan Assessment/Plan IMPRESSION: 1. UTI. 2. Anemia. 3. ESRD, on dialysis. 4. Initial COVID-19 negative. DISCUSSION: Continue current medications and care. Initial COVID-19 pcr negative Blood transfusion. Empiric antibiotics. Hemodialysis. Saturating well on RA I will follow carefully. Ross Nina Omar Syed MD September 22, 2019 07:43
[2019-09-22 08:00] VITALS: BP 115/51
--- NOTE | 2019-09-22 08:03 | Hematology/Onc Progress Note ---
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 Otherwise unremarkable pancreas --> as per gi, may need further eval with endsocopy --> with pancreatitis at this time, may be obscuring picture --> reimage in short order, 6 months --> ca19.9 60 but may be elevated due to pancreatitis --> cea of 10--> --> monitor lfts daily # Anemia of chronic disease due to underlying chronic medical issues, multifactorial v Gi bleed --> Anemia workup has been reviewed, ferritin 1300 -->1800 --> No evidence of hemolysis is noted, peripheral smear has been reviewed. --> Hgb goal >7. Transfuse prn. --> Epogen has been started --> IV IRON completed --> Medications have been reviewed --> hgb 6-->7.1-->12-->11.2-->11.6 -->11.9->9.2 --> 09/07 stool ob negative --> rbc: 2 units 09/10/2019, --> bone marrow biopsy is not indicated given the other more likely causes # Leukocytosis/elevated white blood cell count, unspecified likely related to underlying stress reaction, smoking v more likely infection in this case, uti now --> have reviewed peripheral smear and bandemia/neutrophilia noted --> monitor for resolution --> as per id care, on broad spectrum abx --> wbc 14-->12-->9-->14.9-->12->14-->12 --> per id recs, on: cftx-->bethany/vanc-->zosyn/vanc-->linezolid/zosyn --> blood cx++ x2 --> 09/19 urine cx++ --> 09/20 cxr: Similar diffuse interstitial opacities may represent chronic interstitial lung changes versus pulmonary vasculature congestion versus infectious/inflammatory process # Thrombocytopenia - potential causes multifactorial, evaluate liver and viral etiologies to begin, in this case due to sepsisand pancreatitis --> Hep panel and HIV are both negative --> US abd to evaluate for cirrhosis and hsm --> pleural effusions noted, hsm is neg --> Peripheral smear ordered to evaluate for blasts /schistocytes --> abx and other meds have been reviewed --> ok for ppx if plt >50k w/ either heparin or lovenox # 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 Greatly appreciate consultation. Subjective Allergies: Coded Allergies: No Known Allergies (Unverified , 06/24/19) Subjective 09/09 obtunded, on tele, labs pending, stool ob negative, iv abx 09/10 s/p 2 units rbc, hgb improved to 12, on iv iron, hep b neg. 09/11 hd for today, h/h stable, no acute distress 09/12 nonverbal, no overnight events, bethany/vanc 09/13 le vishal duplex bilat negative, clood cx++ x2, no distress 09/14 labs noted, no bleeding, no night sweats, meds reviewed 09/15 hd as per renal, labs noted, no bleeding, no fc wbc 12k 09/16 cotninue on iv iron, labs noted, hgb relatively stable 09/19 for hd today, seenby renal, labs noted, no bleeding 09/20 urine cx+, today's labs pending, room air 09/21 no acute events, cxr reviewed, iv abx, gtf Objective Objective Current Medications Medications (Trade) Dose Ordered Sig/Joan Route PRN Reason Start Time Stop Time Status Last Admin Dose Admin Acetaminophen (Tylenol) 650 mg Q4H PRN GT Mild Pain (Pain Scale 1-3) 09/18/19 19:30 10/08/19 19:29 09/20/19 13:14 Amikacin Protocol (Amikacin pharmacy to dose) 1 ea DAILY PRN MISC Per rx protocol 09/19/19 17:45 10/19/19 17:44 Atorvastatin Calcium (Lipitor) 10 mg BEDTIME GT 09/18/19 21:00 12/07/19 20:59 09/21/19 20:59 Carvedilol (Coreg) 6.25 mg EVERY 12 HOURS GT 09/18/19 21:00 10/08/19 08:59 09/21/19 20:59 Epoetin Dion (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)) 4,000 unit SUBQ 09/18/19 21:00 12/17/19 20:59 09/20/19 21:19 Gabapentin (Neurontin) 300 mg THREE TIMES A DAY GT 09/19/19 09:00 10/19/19 08:59 09/21/19 17:27 Heparin Sodium (Porcine) (Heparin 5000 units/ml) 5,000 units EVERY 12 HOURS SUBQ 09/18/19 21:00 11/01/19 15:42 09/21/19 21:01 Linezolid 300 ml @ 300 mls/hr EVERY 12 HOURS IVPB 09/21/19 21:00 09/28/19 20:59 09/21/19 21:00 Loperamide HCl (Imodium) 2 mg Q6H PRN GT Diarrhea 09/18/19 19:30 10/13/19 19:29 09/21/19 17:27 Morphine Sulfate (Morphine Sulfate) 1 mg Q4H PRN IVP For Pain 09/18/19 19:30 09/22/19 11:29 09/21/19 13:39 Piperacillin Sod/ Tazobactam Sod 3.375 gm/Sodium Chloride 110 ml @ 27.5 mls/hr EVERY 12 HOURS IVPB 09/19/19 21:00 09/24/19 20:59 09/21/19 22:06 Last 24 Hour Vital Signs Date Time Temp Pulse Resp B/P (MAP) Pulse Ox O2 Delivery O2 Flow Rate FiO2 09/22/19 04:00 98.4 104 20 114/68 (83) 95 09/22/19 00:00 98.4 89 21 98/50 (66) 95 09/21/19 21:00 Room Air 09/21/19 20:59 96 105/48 09/21/19 20:00 98.1 96 21 105/48 (67) 94 09/21/19 16:00 98.5 80 20 135/76 (95) 97 09/21/19 12:00 98.6 91 19 110/68 (82) 97 09/21/19 09:24 88 105/64 09/21/19 09:00 Room Air 09/21/19 08:00 98.4 88 19 105/64 (78) 96 09/21/19 04:00 97.8 91 20 102/63 (76) 95 09/20/19 23:55 98.3 98 20 147/80 (102) 97 09/20/19 21:20 94 127/58 09/20/19 21:00 97.9 67 22 108/45 (66) 99 09/20/19 21:00 Room Air 09/20/19 16:00 97.4 79 18 116/56 (76) 99 09/20/19 13:44 98.5 09/20/19 12:00 98.5 69 18 118/64 (82) 98 09/20/19 09:40 73 115/56 09/20/19 09:00 Room Air 09/20/19 08:00 98.8 73 17 115/56 (75) 99 Intake and Output 09/21/19 09/22/19 19:00 07:00 Intake Total 530.0 ml 1000.0 ml Output Total 200 ml Balance 530.0 ml 800.0 ml Free Water 100 ml 150 ml IV Total 110.0 ml 410.0 ml Tube Feeding 320 ml 440 ml Output Urine Total 200 ml # Voids 1 # Bowel Movements 1 Labs Test 09/20/19 02:20 09/20/19 04:50 09/21/19 07:10 Urine Color Yellow Urine Appearance Cloudy Urine pH 8 (4.5-8.0) Urine Specific [place] 1.010 (1.005-1.035) Urine Protein 3+ (NEGATIVE) Urine Glucose (UA) Negative (NEGATIVE) Urine Ketones Negative (NEGATIVE) Urine Blood 5+ (NEGATIVE) Urine Nitrite Negative (NEGATIVE) Urine Bilirubin Negative (NEGATIVE) Urine Urobilinogen Normal MG/DL (0.0-1.0) Urine Leukocyte Esterase 3+ (NEGATIVE) Urine RBC Tntc /HPF (0 - 2) Urine WBC Tntc /HPF (0 - 2) Urine Squamous Epithelial Cells Few /LPF (NONE/OCC) Urine Bacteria Moderate /HPF (NONE) Urine Yeast Many /HPF (NONE) White Blood Count 12.2 K/UL (4.8-10.8) 12.2 K/UL (4.8-10.8) Red Blood Count 3.13 M/UL (4.20-5.40) 3.44 M/UL (4.20-5.40) Hemoglobin 9.2 G/DL (12.0-16.0) 10.1 G/DL (12.0-16.0) Hematocrit 27.6 % (37.0-47.0) 30.5 % (37.0-47.0) Mean Corpuscular Volume 88 FL (80-99) 89 FL (80-99) Mean Corpuscular Hemoglobin 29.5 PG (27.0-31.0) 29.5 PG (27.0-31.0) Mean Corpuscular Hemoglobin Concent 33.5 G/DL (32.0-36.0) 33.1 G/DL (32.0-36.0) Red Cell Distribution Width 13.1 % (11.6-14.8) 13.2 % (11.6-14.8) Platelet Count 261 K/UL (150-450) 277 K/UL (150-450) Mean Platelet Volume 6.7 FL (6.5-10.1) 6.9 FL (6.5-10.1) Neutrophils (%) (Auto) 60.5 % (45.0-75.0) 62.5 % (45.0-75.0) Lymphocytes (%) (Auto) 29.7 % (20.0-45.0) 26.4 % (20.0-45.0) Monocytes (%) (Auto) 6.9 % (1.0-10.0) 7.6 % (1.0-10.0) Eosinophils (%) (Auto) 1.9 % (0.0-3.0) 3.0 % (0.0-3.0) Basophils (%) (Auto) 1.1 % (0.0-2.0) 0.5 % (0.0-2.0) Sodium Level 137 MMOL/L (136-145) 139 MMOL/L (136-145) Potassium Level 4.3 MMOL/L (3.5-5.1) 3.9 MMOL/L (3.5-5.1) Chloride Level 99 MMOL/L (98-107) 103 MMOL/L (98-107) Carbon Dioxide Level 30 MMOL/L (21-32) 29 MMOL/L (21-32) Anion Gap 8 mmol/L (5-15) 7 mmol/L (5-15) Blood Urea Nitrogen 76 mg/dL (7-18) 49 mg/dL (7-18) Creatinine 4.3 MG/DL (0.55-1.30) 3.1 MG/DL (0.55-1.30) Estimat Glomerular Filtration Rate 11.8 mL/min (>60) 17.2 mL/min (>60) Glucose Level 105 MG/DL (74-106) 134 MG/DL (74-106) Calcium Level 9.2 MG/DL (8.5-10.1) 9.4 MG/DL (8.5-10.1) Total Bilirubin 1.3 MG/DL (0.2-1.0) 0.7 MG/DL (0.2-1.0) Direct Bilirubin 0.3 MG/DL (0.0-0.3) Aspartate Amino Transf (AST/SGOT) 42 U/L (15-37) 39 U/L (15-37) Alanine Aminotransferase (ALT/SGPT) 32 U/L (12-78) 33 U/L (12-78) Alkaline Phosphatase 77 U/L (46-116) 81 U/L (46-116) Total Protein 6.4 G/DL (6.4-8.2) 6.6 G/DL (6.4-8.2) Albumin 2.3 G/DL (3.4-5.0) 2.9 G/DL (3.4-5.0) Globulin 4.1 g/dL 3.7 g/dL Albumin/Globulin Ratio 0.6 (1.0-2.7) 0.8 (1.0-2.7) Phosphorus Level 2.6 MG/DL (2.5-4.9) Magnesium Level 2.3 MG/DL (1.8-2.4) Height (Feet): 5 Height (Inches): 6.00 Weight (Pounds): 117 Objective Physical Exam: Vitals: reviewed General: NAD, groans to pain stimuli HEENT: nc, at, gtf++ Neck: supple Chest: clear breath sounds bilaterally Cardiovascular: RRR, no s3, s4 Abdomen: soft, nontender, nd ++ peg Extremities: no cce, normal range of motion Neuro: confused, nonverbal Skin: other - pressure sores to right side : beena+ Bola Aldridge MD September 22, 2019 08:03
[2019-09-22] MEDS: Heparin 5000 units/ml inj SUBQ SCH ×2 (08:20→20:42)
[2019-09-22 08:35] LABS: HEMATOCRIT 29.6 % (37.0-47.0); HEMOGLOBIN 9.8 G/DL (12.0-16.0); MEAN CORPUSCULAR VOLUME 88 FL (80-99); PLATELET COUNT 300 K/UL (150-450); RED BLOOD COUNT 3.36 M/UL (4.20-5.40); RED CELL DISTRIBUTION WIDTH 13.4 % (11.6-14.8); WHITE BLOOD COUNT 14.1 K/UL (4.8-10.8)
[2019-09-22] MEDS: Carvedilol 6.25mg Tab GT SCH ×2 (08:37→20:42)
[2019-09-22] MEDS: Morphine Sulfate 2mg/ml Inj(IV/IM USE ONLY) IVP PRN ×2 (08:40→14:25)
[2019-09-22 09:08] LABS: ALANINE AMINOTRANSFERASE 28 U/L (12-78); ALBUMIN 2.6 G/DL (3.4-5.0); ALBUMIN/GLOBULIN RATIO 0.7 (1.0-2.7); ALKALINE PHOSPHATASE 75 U/L (46-116); ANION GAP 10 mmol/L (5-15); ASPARTATE AMINO TRANSFERASE 30 U/L (15-37); BILIRUBIN,TOTAL 0.6 MG/DL (0.2-1.0); BLOOD UREA NITROGEN 63 mg/dL (7-18); CALCIUM 9.4 MG/DL (8.5-10.1); CARBON DIOXIDE 28 MMOL/L (21-32); CHLORIDE 102 MMOL/L (98-107); CREATININE 3.8 MG/DL (0.55-1.30); POTASSIUM 3.8 MMOL/L (3.5-5.1); SODIUM 140 MMOL/L (136-145)
[2019-09-22 09:17] LABS: PHOSPHORUS 2.8 MG/DL (2.5-4.9)
[2019-09-22] MEDS: Zosyn 3.375gm in NS 110ml IVPB SCH (10:11)
--- NOTE | 2019-09-22 10:51 | Nephrology Progress Note ---
Assessment/Plan Plan #ESRD on HD TTHS- #anemia of CKD #UTI #dysphagia s/p PEG #multiple pressure wounds #HTN -next HD monday - hemoglobin stable - STRICT I&Os - daily weights - replete lytes - prbc transfusion for hemoglobin < 7 - Epo k TIW - IV iron - monitor CBC - on meropenem,flucon, vanco - continue coreg 6.25mg BID - replete phos - monitor mag, phos and BMP daily Time spent 45 min > 50% on care coordination and counseling Subjective ROS Limited/Unobtainable: Yes Subjective HD tomorrow afebrile overnight hemoglobin 9.8 Objective Objective Last 24 Hour Vital Signs Date Time Temp Pulse Resp B/P (MAP) Pulse Ox O2 Delivery O2 Flow Rate FiO2 09/22/19 09:00 Room Air 09/22/19 08:37 103 115/51 09/22/19 08:00 98.2 103 19 115/51 (72) 93 09/22/19 04:00 98.4 104 20 114/68 (83) 95 09/22/19 00:00 98.4 89 21 98/50 (66) 95 09/21/19 21:00 Room Air 09/21/19 20:59 96 105/48 09/21/19 20:00 98.1 96 21 105/48 (67) 94 09/21/19 16:00 98.5 80 20 135/76 (95) 97 09/21/19 12:00 98.6 91 19 110/68 (82) 97 Intake and Output 09/21/19 09/22/19 19:00 07:00 Intake Total 530.0 ml 1040.0 ml Output Total 200 ml Balance 530.0 ml 840.0 ml Free Water 100 ml 150 ml IV Total 110.0 ml 410.0 ml Tube Feeding 320 ml 480 ml Output Urine Total 200 ml # Voids 1 # Bowel Movements 1 Laboratory Tests 09/22/19 06:40: White Blood Count 14.1H, Red Blood Count 3.36L, Hemoglobin 9.8L, Hematocrit 29.6L, Mean Corpuscular Volume 88, Mean Corpuscular Hemoglobin 29.0, Mean Corpuscular Hemoglobin Concent 33.0, Red Cell Distribution Width 13.4, Platelet Count 300, Mean Platelet Volume 6.8, Neutrophils (%) (Auto) , Lymphocytes (%) ( Auto) , Monocytes (%) (Auto) , Eosinophils (%) (Auto) , Basophils (%) (Auto) , Neutrophils % (Manual) [Pending], Lymphocytes % (Manual) [Pending], Platelet Estimate [Pending], Platelet Morphology [Pending], Sodium Level 140, Potassium Level 3.8, Chloride Level 102, Carbon Dioxide Level 28, Anion Gap 10, Blood Urea Nitrogen 63H, Creatinine 3.8H, Estimat Glomerular Filtration Rate 13.6, Glucose Level 100, Calcium Level 9.4, Phosphorus Level 2.8, Magnesium Level 2.4 , Total Bilirubin 0.6, Aspartate Amino Transf (AST/SGOT) 30, Alanine Aminotransferase (ALT/SGPT) 28, Alkaline Phosphatase 75, Total Protein 6.5, Albumin 2.6L, Globulin 3.9, Albumin/Globulin Ratio 0.7L Height (Feet): 5 Height (Inches): 6.00 Weight (Pounds): 117 Objective General Appearance: confused, cachetic, thin Lines, tubes and drains: peripheral HEENT: normocephalic, atraumatic Respiratory/Chest: chest wall non-tender, no respiratory distress Cardiovascular/Chest: normal peripheral pulses Abdomen: feeding tube Extremities: non-pitting, no cyanosis, other - unable to move extremities. Skin Exam: other - pressure ulcers Royr Oconnor M.D. September 22, 2019 10:51
[2019-09-22 12:00] VITALS: BP 105/42
--- NOTE | 2019-09-22 12:42 | Surgery Progress Note ---
Surgery Progress Note Subjective Additional Comments Leukocytosis Anemia Renal insufficiency Exam unchanged dressing changes going well Objective Last 24 Hour Vital Signs Date Time Temp Pulse Resp B/P (MAP) Pulse Ox O2 Delivery O2 Flow Rate FiO2 09/22/19 12:00 97.9 94 18 105/42 (63) 93 09/22/19 09:00 Room Air 09/22/19 08:37 103 115/51 09/22/19 08:00 98.2 103 19 115/51 (72) 93 09/22/19 04:00 98.4 104 20 114/68 (83) 95 09/22/19 00:00 98.4 89 21 98/50 (66) 95 09/21/19 21:00 Room Air 09/21/19 20:59 96 105/48 09/21/19 20:00 98.1 96 21 105/48 (67) 94 09/21/19 16:00 98.5 80 20 135/76 (95) 97 I&O Intake and Output 09/21/19 09/22/19 19:00 07:00 Intake Total 530.0 ml 1040.0 ml Output Total 200 ml Balance 530.0 ml 840.0 ml Free Water 100 ml 150 ml IV Total 110.0 ml 410.0 ml Tube Feeding 320 ml 480 ml Output Urine Total 200 ml # Voids 1 # Bowel Movements 1 Dressing: other Wound: other Drains: other Cardiovascular: RSR Respiratory: decreased breath sounds Abdomen: soft, non-tender, present bowel sounds Extremities: no cyanosis Laboratory Tests Test 09/22/19 06:40 White Blood Count 14.1 K/UL (4.8-10.8) H Red Blood Count 3.36 M/UL (4.20-5.40) L Hemoglobin 9.8 G/DL (12.0-16.0) L Hematocrit 29.6 % (37.0-47.0) L Mean Corpuscular Volume 88 FL (80-99) Mean Corpuscular Hemoglobin 29.0 PG (27.0-31.0) Mean Corpuscular Hemoglobin Concent 33.0 G/DL (32.0-36.0) Red Cell Distribution Width 13.4 % (11.6-14.8) Platelet Count 300 K/UL (150-450) Mean Platelet Volume 6.8 FL (6.5-10.1) Neutrophils (%) (Auto) % (45.0-75.0) Lymphocytes (%) (Auto) % (20.0-45.0) Monocytes (%) (Auto) % (1.0-10.0) Eosinophils (%) (Auto) % (0.0-3.0) Basophils (%) (Auto) % (0.0-2.0) Differential Total Cells Counted 100 Neutrophils % (Manual) 69 % (45-75) Lymphocytes % (Manual) 21 % (20-45) Monocytes % (Manual) 5 % (1-10) Eosinophils % (Manual) 5 % (0-3) H Basophils % (Manual) 0 % (0-2) Band Neutrophils 0 % (0-8) Platelet Estimate Adequate Platelet Morphology Normal Polychromasia 1+ Hypochromasia 1+ Sodium Level 140 MMOL/L (136-145) Potassium Level 3.8 MMOL/L (3.5-5.1) Chloride Level 102 MMOL/L (98-107) Carbon Dioxide Level 28 MMOL/L (21-32) Anion Gap 10 mmol/L (5-15) Blood Urea Nitrogen 63 mg/dL (7-18) H Creatinine 3.8 MG/DL (0.55-1.30) H Estimat Glomerular Filtration Rate 13.6 mL/min (>60) Glucose Level 100 MG/DL (74-106) Calcium Level 9.4 MG/DL (8.5-10.1) Phosphorus Level 2.8 MG/DL (2.5-4.9) Magnesium Level 2.4 MG/DL (1.8-2.4) Total Bilirubin 0.6 MG/DL (0.2-1.0) Aspartate Amino Transf (AST/SGOT) 30 U/L (15-37) Alanine Aminotransferase (ALT/SGPT) 28 U/L (12-78) Alkaline Phosphatase 75 U/L (46-116) Total Protein 6.5 G/DL (6.4-8.2) Albumin 2.6 G/DL (3.4-5.0) L Globulin 3.9 g/dL Albumin/Globulin Ratio 0.7 (1.0-2.7) L Plan Problems: (1) COVID-19 ruled out Assessment & Plan: FINDINGS: Lungs: Left basilar opacity with volume loss, likely atelectasis however a focus of infection could have a similar appearance. Pleural space: No pleural effusion. No pneumothorax. Heart: Unremarkable. No cardiomegaly. Bones/joints: No fracture. Vasculature: Atherosclerotic calcifications. Tubes, lines and devices: Right IJ large bore dialysis catheter terminates within the right atrium. IMPRESSION: Left basilar opacity with volume loss, likely atelectasis however a focus of infection could have a similar appearance. leukocytosis anemia pending test (2) Protein calorie malnutrition Assessment & Plan: DAILY ESTIMATED NEEDS: Needs based on Wounds, HD 57kg 30-35 kcals/kg 3954-9515 total kcals 1.25-1.8 g protein/kg 71-103 g total protein Fluids per MD mL/kg . total fluid mLs NUTRITION DIAGNOSIS: * Increased kcal and prot needs r/t wound healing and renal failure as evidenced by w/ multiple pressure injuries, including full thickness and unstageable wounds, refer to MD reports, pt w/ ESRD on HD, GT dep. CURRENT TF:Nepro @ 40ml/hr x 20 hrs ENTERAL NUTRITION RECOMMENDATIONS: Nepro @ 45ml/hr x 22 hrs to provide 990ml, 1782kcal, 80g prot, 720ml free water - Rec to INCREASE RATE AND RUNNING TIME ABOVE to better meet est kcal and pro needs - HOB over 30 degrees/ water flush per MD ADDITIONAL RECOMMENDATIONS: 1) Calibrated bedscale wt 2) Wound Care: add Nephrovite x 1 add Saw 1ptk BID via GT 3) Monitor BGs, consider NISS: BGs consistently mildly elevated 4) Monitor lytes and renal fxn (3) Pressure ulcer (4) Decubitus skin ulcer Assessment & Plan: Pt presented on admission with multiple Pressure injuries. Full thickness Pressure Injury R shoulder(L)2.8cm x (W)2cm. Base of wound is 75 % slough, 25% beefy red granulation. Slough removed with gentle friction. Post removal of slough,small amt slough at base of wound. Small amt sanguineous exudate. Edges flat and adherent to base of wound. Periwound without erythema, induration or fluctuance. Darker skin tone without induration ,fluctuance or tenderness at sacrococcygeal area. Non-blanching erythema and scattered areas of hyperpigmentation noted to R and L gluteal cheeks. Pt denied tenderness when affected areas palpated. Full thickness Pressure injury R hip (L)5.5cm x (W)10.2cm x (D)2.6cm. Base of wound is 75% pink granulation,25% Loose fibrinous slough. Bone is palpable.Edges flat ,pink and adherent to base of wound. Small amt. non-odorous serous exudate. Hypopigmentation noted to perineum and labia majora. Unstageable Pressure Injury R heel(L)3.5cm x (W)3.3cm . Base of wound is 100% necrotic with semidetached with surrounding yellow slough. Edges area dry, black. Periwound is non-blanchable and fluctuant. Maroon discoloration with fluctuance noted to distal/lateral R foot (L)2.8cm x ( W)2.5cm. Resolving pressure injury R Hallux(L)3.5cm x (W)3.3cm.Adin epithelial at base of wound with surrounding dry brown borders. L heel is boggy with non-blanching erythema.Historical scarring from previous wounds noted. Unstageable Pressure Injury L hallux(L)3.5cm x (W)2.8cm. Base of wound has 90% loose necrotic cap,surrounding slough. Loose necrotic cap easily removed with saline moistened gauze. At base of wound is 100% yellow slough, marginal erythema with small area of necrosis noted along borders. Small amt seropurulent non-odorous exudate noted. Stable dry necrosis at L st metatarsal head. Tx.Plan: Cleanse wound R shoulder with Saline. Apply Therahoney. Apply Cavilon Skin Barrier periwound. Cover with Optifoam drsg. Change every 3 days and prn. Cleanse R hip with Saline. Loosely pack with Therahoney impregnated Kerlix. Apply Moisture Barrier Paste periwound. Cover with Optifoam drsg. Change Daily and prn. Apply Moisture Barrier Paste to Sacrum. Cover with Optifoam drsg. Change every 3 days and prn. Apply Betadine to R heel, R hallux,Distal/lateral R foot. Cover with Abd pad and wrap with Kerlix every 3 days and prn. Apply Betadine to L hallux,L 1st metatarsal head,L heel. Cover with Abd pads and wrap with Kerlix every 3 days and prn. Reposition Back to L Side at least every 2hours or as tolerated. Place Pillow between knees. Off-load heels with pillow. APM/TIEN Mattress overlay. (5) Suspected COVID-19 virus infection (6) Anemia Assessment & Plan: transfused prbc h/h stable trend labs Anshul Nava September 22, 2019 12:42
--- NOTE | 2019-09-22 13:10 | Infectious Diseases Prog Note ---
Assessment/Plan Assessment/Plan ASSESSMENT AND PLAN: 1. 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 septic again, ? source streptococcus uti, ? vre, possible aspiration pna/hcap fungemia risk, c.diff. - negative - meropenem, zyvox and diflucan - discontinue amikacin and zosyn - f/u on cultures and chest x -ray - monitor labs - covid-19 pcr neg x 2- remove isolation 2. She has history of hemodialysis, end-stage renal disease, chronic kidney disease. 3. The patient has history of hypertension. 4. Anemia. 5. Elevated creatinine. 6. Hypertension treatment per primary care team. 7. Wound care per Surgery. 8. Dysphagia, G-tube 9. No known drug allergies. 10. Social history is negative. 11. Family History is noncontributory. 12. MAR was noted. 13. Case discussed with RN. 14. Continue treatment per primary consultants. 15. Orders were noted and entered. Subjective Constitutional: Denies: fever HEENT: Reports: congestion - mild Respiratory: Reports: shortness of breath - mild Gastrointestinal/Abdominal: Denies: nausea, vomiting, diarrhea Allergies: Coded Allergies: No Known Allergies (Unverified , 06/24/19) Objective Vital Signs Last 24 Hour Vital Signs Date Time Temp Pulse Resp B/P (MAP) Pulse Ox O2 Delivery O2 Flow Rate FiO2 09/22/19 12:00 97.9 94 18 105/42 (63) 93 09/22/19 09:00 Room Air 09/22/19 08:37 103 115/51 09/22/19 08:00 98.2 103 19 115/51 (72) 93 09/22/19 04:00 98.4 104 20 114/68 (83) 95 09/22/19 00:00 98.4 89 21 98/50 (66) 95 09/21/19 21:00 Room Air 09/21/19 20:59 96 105/48 09/21/19 20:00 98.1 96 21 105/48 (67) 94 09/21/19 16:00 98.5 80 20 135/76 (95) 97 Height (Feet): 5 Height (Inches): 6.00 Weight (Pounds): 117 General Appearance: no acute distress HEENT: anicteric Respiratory/Chest: crackles/rales, rhonchi - bilaterally Cardiovascular: normal rate, regular rhythm Abdomen: no organomegaly, non distended Objective Procedure: XRAY Chest 1v Procedure: XRAY Chest 1v Reason for study: Shortness of breath. Comparison films: 09/07/2019. FINDINGS: Right central venous catheter remains in place. Vascularity is normal. Mild left basilar hazy densities unchanged. Cardiac and mediastinal silhouette are within normal limits. There may be a trace left effusion. The bony thorax appear unremarkable. IMPRESSION: NO ACUTE CARDIOPULMONARY DISEASE. Chest x-ray - 09/21/19 - IMPRESSION: Similar diffuse interstitial opacities may represent chronic interstitial lung changes versus pulmonary vasculature congestion versus infectious/inflammatory process. No possible small left pleural effusion. Microbiology Date/Time Source Procedure Growth Status 09/19/19 18:35 Blood Blood Culture - Preliminary NO GROWTH AFTER 48 HOURS Resulted 09/19/19 18:25 Blood Blood Culture - Preliminary NO GROWTH AFTER 48 HOURS Resulted 09/19/19 16:30 Nasal Nares MRSA Culture - Final NO METHICILLIN RESISTANT STAPH AUREUS... Complete 09/21/19 04:00 Stool Clostridium difficile Toxin Assay - Final Complete 09/20/19 02:20 Indwelling Cath Urine Culture - Preliminary Strep Species, Gamma-Hemolytic Resulted Laboratory Tests Test 09/22/19 06:40 White Blood Count 14.1 K/UL (4.8-10.8) H Red Blood Count 3.36 M/UL (4.20-5.40) L Hemoglobin 9.8 G/DL (12.0-16.0) L Hematocrit 29.6 % (37.0-47.0) L Mean Corpuscular Volume 88 FL (80-99) Mean Corpuscular Hemoglobin 29.0 PG (27.0-31.0) Mean Corpuscular Hemoglobin Concent 33.0 G/DL (32.0-36.0) Red Cell Distribution Width 13.4 % (11.6-14.8) Platelet Count 300 K/UL (150-450) Mean Platelet Volume 6.8 FL (6.5-10.1) Neutrophils (%) (Auto) % (45.0-75.0) Lymphocytes (%) (Auto) % (20.0-45.0) Monocytes (%) (Auto) % (1.0-10.0) Eosinophils (%) (Auto) % (0.0-3.0) Basophils (%) (Auto) % (0.0-2.0) Differential Total Cells Counted 100 Neutrophils % (Manual) 69 % (45-75) Lymphocytes % (Manual) 21 % (20-45) Monocytes % (Manual) 5 % (1-10) Eosinophils % (Manual) 5 % (0-3) H Basophils % (Manual) 0 % (0-2) Band Neutrophils 0 % (0-8) Platelet Estimate Adequate Platelet Morphology Normal Polychromasia 1+ Hypochromasia 1+ Sodium Level 140 MMOL/L (136-145) Potassium Level 3.8 MMOL/L (3.5-5.1) Chloride Level 102 MMOL/L (98-107) Carbon Dioxide Level 28 MMOL/L (21-32) Anion Gap 10 mmol/L (5-15) Blood Urea Nitrogen 63 mg/dL (7-18) H Creatinine 3.8 MG/DL (0.55-1.30) H Estimat Glomerular Filtration Rate 13.6 mL/min (>60) Glucose Level 100 MG/DL (74-106) Calcium Level 9.4 MG/DL (8.5-10.1) Phosphorus Level 2.8 MG/DL (2.5-4.9) Magnesium Level 2.4 MG/DL (1.8-2.4) Total Bilirubin 0.6 MG/DL (0.2-1.0) Aspartate Amino Transf (AST/SGOT) 30 U/L (15-37) Alanine Aminotransferase (ALT/SGPT) 28 U/L (12-78) Alkaline Phosphatase 75 U/L (46-116) Total Protein 6.5 G/DL (6.4-8.2) Albumin 2.6 G/DL (3.4-5.0) L Globulin 3.9 g/dL Albumin/Globulin Ratio 0.7 (1.0-2.7) L Current Medications Medications (Trade) Dose Ordered Sig/Joan Route PRN Reason Start Time Stop Time Status Last Admin Dose Admin Acetaminophen (Tylenol) 650 mg Q4H PRN GT Mild Pain (Pain Scale 1-3) 09/18/19 19:30 10/08/19 19:29 09/20/19 13:14 Amikacin Protocol (Amikacin pharmacy to dose) 1 ea DAILY PRN MISC Per rx protocol 09/19/19 17:45 10/19/19 17:44 Atorvastatin Calcium (Lipitor) 10 mg BEDTIME GT 09/18/19 21:00 12/07/19 20:59 09/21/19 20:59 Carvedilol (Coreg) 6.25 mg EVERY 12 HOURS GT 09/18/19 21:00 10/08/19 08:59 09/22/19 08:37 Epoetin Dion (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)) 4,000 unit MON-MON-MON SUBQ 09/18/19 21:00 12/17/19 20:59 09/20/19 21:19 Gabapentin (Neurontin) 300 mg THREE TIMES A DAY GT 09/19/19 09:00 10/19/19 08:59 09/22/19 08:19 Heparin Sodium (Porcine) (Heparin 5000 units/ml) 5,000 units EVERY 12 HOURS SUBQ 09/18/19 21:00 11/01/19 15:42 09/22/19 08:20 Linezolid 300 ml @ 300 mls/hr EVERY 12 HOURS IVPB 09/21/19 21:00 09/28/19 20:59 09/22/19 08:19 Loperamide HCl (Imodium) 2 mg Q6H PRN GT Diarrhea 09/18/19 19:30 10/13/19 19:29 09/21/19 17:27 Piperacillin Sod/ Tazobactam Sod 3.375 gm/Sodium Chloride 110 ml @ 27.5 mls/hr EVERY 12 HOURS IVPB 09/19/19 21:00 09/24/19 20:59 09/22/19 10:11 Ana Rosado MD September 22, 2019 13:10
[2019-09-22 16:00] VITALS: BP 122/53
--- NOTE | 2019-09-22 19:24 | General Progress Note ---
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 Patient is being placed in observation unit for further medical work up #ESRD on HD #Anemia of Chronic Disease #Type II [place] demand Ischemia, HTN #Dementia, Peg tube dependent, Functional Quadriplegia and associated associated pressure ulcers Plan Patient spiked fevers again so was started back on Tx w/ Amikacin, Zosyn, Vancomycin; pending repeat Cxs and ID w/u. HD as scheduled w/ epogen dosing. Coreg, ASA, Atorvastatin. DVT ppx, supportive measures. Tube Feeds. Appreciate Consultants. Monitor in med surg #Sepsis 2/2 Klebsiella UTI and VRE Bacteremia--> spiked fevers again, so started back on tx on 09/18 w/ repeat Horton Cx #Urinary tract infection-Complicated: #Indwelling Hargrove catheter for wound protection -Appreciate ID recommendations. D/w Dr. Lynn - Continue zosyn, amikacin (09/18 - ) - START zyvox (09/20 - ) - D/c Vanc - follow cultures - check C diff #ESRD on HD #Acute on chronic anemia, now resolved #Anemia of ESRD -Serum hgb:7.4 -Continue to monitor; CBC Q 8H -cont. to monitor for signs/symptoms of bleeding -Transfuse for hgb <7.0 -EPOGEN per nephro -Dr. Oconnor (nephrology) on board. Appreciate further recommendations. #HTN #elevated troponin #Elevated BNP -trops stable at baseline -likely due to demand ischemia, ESRD, sepsis -ASA, statin -Continue home Lasix -hydralazine PRN for SBP >160 -Carvedilol 6.25 mg BID -Cardio following consult in the A.M. #Dysphagia -s/p PEG -tolerating TF -Dietary and GI following, recs appreciated #Advanced Dementia -stable -neuro following, appreciate recs #Pressure wounds -Will consult wound care F: Tube feeding E:Monitor and replete PRN N: Tube feeding. DVT PPx: HSQ Spent 42 minutes on the patient's case and 23 on counseling and care coordination. Case discussed with RN at the bedside, nephrology, infecitous disease. I spent an additional 31 minutes reviewing medical records including prior hospitalization notes, clinic notes, consultation notes, prior labs, and prior imaging. Subjective Allergies: Coded Allergies: No Known Allergies (Unverified , 06/24/19) Subjective Chart reviewed. Patient spiked another fever 2 days ago. Discharge held. Restarted on broad Abx per ID. Still lethargic. Does not answer questions ROS unable to obtain due to ALOC Objective Last 24 Hour Vital Signs Date Time Temp Pulse Resp B/P (MAP) Pulse Ox O2 Delivery O2 Flow Rate FiO2 09/22/19 16:00 98.2 104 19 122/53 (76) 93 09/22/19 12:00 97.9 94 18 105/42 (63) 93 09/22/19 09:00 Room Air 09/22/19 08:37 103 115/51 09/22/19 08:00 98.2 103 19 115/51 (72) 93 09/22/19 04:00 98.4 104 20 114/68 (83) 95 09/22/19 00:00 98.4 89 21 98/50 (66) 95 09/21/19 21:00 Room Air 09/21/19 20:59 96 105/48 09/21/19 20:00 98.1 96 21 105/48 (67) 94 Intake and Output 09/21/19 09/22/19 19:00 07:00 Intake Total 530.0 ml 1040.0 ml Output Total 200 ml Balance 530.0 ml 840.0 ml Free Water 100 ml 150 ml IV Total 110.0 ml 410.0 ml Tube Feeding 320 ml 480 ml Output Urine Total 200 ml # Voids 1 # Bowel Movements 1 Laboratory Tests 09/22/19 06:40: White Blood Count 14.1H, Red Blood Count 3.36L, Hemoglobin 9.8L, Hematocrit 29.6L, Mean Corpuscular Volume 88, Mean Corpuscular Hemoglobin 29.0, Mean Corpuscular Hemoglobin Concent 33.0, Red Cell Distribution Width 13.4, Platelet Count 300, Mean Platelet Volume 6.8, Neutrophils (%) (Auto) , Lymphocytes (%) ( Auto) , Monocytes (%) (Auto) , Eosinophils (%) (Auto) , Basophils (%) (Auto) , Differential Total Cells Counted 100, Neutrophils % (Manual) 69, Lymphocytes % ( Manual) 21, Monocytes % (Manual) 5, Eosinophils % (Manual) 5H, Basophils % ( Manual) 0, Band Neutrophils 0, Platelet Estimate Adequate, Platelet Morphology Normal, Polychromasia 1+, Hypochromasia 1+, Sodium Level 140, Potassium Level 3.8, Chloride Level 102, Carbon Dioxide Level 28, Anion Gap 10, Blood Urea Nitrogen 63H, Creatinine 3.8H, Estimat Glomerular Filtration Rate 13.6, Glucose Level 100, Calcium Level 9.4, Phosphorus Level 2.8, Magnesium Level 2.4, Total Bilirubin 0.6, Aspartate Amino Transf (AST/SGOT) 30, Alanine Aminotransferase ( ALT/SGPT) 28, Alkaline Phosphatase 75, Total Protein 6.5, Albumin 2.6L, Globulin 3.9, Albumin/Globulin Ratio 0.7L Height (Feet): 5 Height (Inches): 6.00 Weight (Pounds): 117 Objective General: Chronically ill appearing female in NAD, lethargic but arousable HEENT: Normocephalic cephalic atraumatic, pupils equal round reactive to light and accommodation, nares patent and no symmetrical, no tonsillar exudates, mucous membranes moist CV: Regular rate regular rhythm, no murmurs, rubs, or gallops Pulm: Lungs clear to auscultation bilaterally. No wheezes, rhonchi, or rales GI: Soft, nontender, nondistended, bowel sounds present Neuro: CN 2-12 intact bilaterally, no focal signs. Ext: No lower extremity edema bilaterally Skin: Multiple pressure ulcers. See wound photos : Chronic hargrove in place Msk: Joints symmetrical in upper extremity and lower extremity bilaterally, no joint swelling. Lymph: No lymphadenopathy in upper extremity and lower extremity Sanchez Neri D.O. September 22, 2019 19:24
[2019-09-22 20:34] VITALS: BP 118/62
[2019-09-22] MEDS ORDERED: Piperacillin/Tazobactam 3.375 GM in NS 110 ML IVPB SCH (21:00)
--- NOTE | 2019-09-22 22:40 | General Progress Note ---
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 Patient is being placed in observation unit for further medical work up #ESRD on HD #Anemia of Chronic Disease #Type II [place] demand Ischemia, HTN #Dementia, Peg tube dependent, Functional Quadriplegia and associated associated pressure ulcers Plan Patient spiked fevers again so was started back on Tx w/ Amikacin, Zosyn, Vancomycin; pending repeat Cxs and ID w/u. HD as scheduled w/ epogen dosing. Coreg, ASA, Atorvastatin. DVT ppx, supportive measures. Tube Feeds. Appreciate Consultants. Monitor in med surg #Sepsis 2/2 Klebsiella UTI and VRE Bacteremia--> spiked fevers again, so started back on tx on 09/18 w/ repeat Horton Cx #Urinary tract infection-Complicated: #Indwelling Hargrove catheter for wound protection #leukocytosis- uptrending now but clinically improving -Appreciate ID recommendations. D/w Dr. Lynn - Continue zosyn, amikacin (09/18 - ) - Continue zyvox (09/20 - ) - D/c Vanc - follow cultures - check C diff: negative #ESRD on HD #Acute on chronic anemia, now resolved #Anemia of ESRD -Serum hgb:7.4 -Continue to monitor; CBC Q 8H -cont. to monitor for signs/symptoms of bleeding -Transfuse for hgb <7.0 -EPOGEN per nephro -Dr. Oconnor (nephrology) on board. Appreciate further recommendations. #HTN #elevated troponin #Elevated BNP -trops stable at baseline -likely due to demand ischemia, ESRD, sepsis -ASA, statin -Continue home Lasix -hydralazine PRN for SBP >160 -Carvedilol 6.25 mg BID -Cardio following consult in the A.M. #Dysphagia -s/p PEG -tolerating TF -Dietary and GI following, recs appreciated #Advanced Dementia -stable -neuro following, appreciate recs #Pressure wounds -Will consult wound care F: Tube feeding E:Monitor and replete PRN N: Tube feeding. DVT PPx: HSQ Spent 39 minutes on the patient's case and 20 on counseling and care coordination. Case discussed with RN at the bedside, nephrology, infecitous disease. Time of note may not reflect time patient was seen Subjective Date patient seen: September 22, 2019 Allergies: Coded Allergies: No Known Allergies (Unverified , 06/24/19) Subjective No acute events overnight per nursing. Patient more alert today. Looks better but still altered unable to answer questions ROS unable to obtain due to ALOC Objective Last 24 Hour Vital Signs Date Time Temp Pulse Resp B/P (MAP) Pulse Ox O2 Delivery O2 Flow Rate FiO2 09/22/19 20:58 Room Air 09/22/19 20:42 98 118/62 09/22/19 20:34 97.8 98 18 118/62 (80) 94 09/22/19 16:00 98.2 104 19 122/53 (76) 93 09/22/19 12:00 97.9 94 18 105/42 (63) 93 09/22/19 09:00 Room Air 09/22/19 08:37 103 115/51 09/22/19 08:00 98.2 103 19 115/51 (72) 93 09/22/19 04:00 98.4 104 20 114/68 (83) 95 09/22/19 00:00 98.4 89 21 98/50 (66) 95 Intake and Output 09/21/19 09/22/19 19:00 07:00 Intake Total 530.0 ml 1040.0 ml Output Total 200 ml Balance 530.0 ml 840.0 ml Free Water 100 ml 150 ml IV Total 110.0 ml 410.0 ml Tube Feeding 320 ml 480 ml Output Urine Total 200 ml # Voids 1 # Bowel Movements 1 Laboratory Tests 09/22/19 06:40: White Blood Count 14.1H, Red Blood Count 3.36L, Hemoglobin 9.8L, Hematocrit 29.6L, Mean Corpuscular Volume 88, Mean Corpuscular Hemoglobin 29.0, Mean Corpuscular Hemoglobin Concent 33.0, Red Cell Distribution Width 13.4, Platelet Count 300, Mean Platelet Volume 6.8, Neutrophils (%) (Auto) , Lymphocytes (%) ( Auto) , Monocytes (%) (Auto) , Eosinophils (%) (Auto) , Basophils (%) (Auto) , Differential Total Cells Counted 100, Neutrophils % (Manual) 69, Lymphocytes % ( Manual) 21, Monocytes % (Manual) 5, Eosinophils % (Manual) 5H, Basophils % ( Manual) 0, Band Neutrophils 0, Platelet Estimate Adequate, Platelet Morphology Normal, Polychromasia 1+, Hypochromasia 1+, Sodium Level 140, Potassium Level 3.8, Chloride Level 102, Carbon Dioxide Level 28, Anion Gap 10, Blood Urea Nitrogen 63H, Creatinine 3.8H, Estimat Glomerular Filtration Rate 13.6, Glucose Level 100, Calcium Level 9.4, Phosphorus Level 2.8, Magnesium Level 2.4, Total Bilirubin 0.6, Aspartate Amino Transf (AST/SGOT) 30, Alanine Aminotransferase ( ALT/SGPT) 28, Alkaline Phosphatase 75, Total Protein 6.5, Albumin 2.6L, Globulin 3.9, Albumin/Globulin Ratio 0.7L Height (Feet): 5 Height (Inches): 6.00 Weight (Pounds): 117 Objective General: Chronically ill appearing female in NAD, lethargic but arousable ( improving) HEENT: Normocephalic cephalic atraumatic, pupils equal round reactive to light and accommodation, nares patent and no symmetrical, no tonsillar exudates, mucous membranes moist CV: Regular rate regular rhythm, no murmurs, rubs, or gallops Pulm: Lungs clear to auscultation bilaterally. No wheezes, rhonchi, or rales GI: Soft, nontender, nondistended, bowel sounds present Neuro: CN 2-12 intact bilaterally, no focal signs. Ext: No lower extremity edema bilaterally Skin: Multiple pressure ulcers. See wound photos : Chronic hargrove in place Msk: Joints symmetrical in upper extremity and lower extremity bilaterally, no joint swelling. Lymph: No lymphadenopathy in upper extremity and lower extremity Sanchez Neri D.O. September 22, 2019 22:40
--- NOTE | 2019-09-22 23:00 | Neurology Progress Note ---
Interim History Interim History ROS Limited/Unobtainable: Yes Interim History open eyes otherwie non verbal Objective Physical Exam Last Vital Signs Date Time Temp Pulse Resp B/P (MAP) Pulse Ox O2 Delivery O2 Flow Rate FiO2 09/22/19 20:58 Room Air 09/22/19 20:42 98 118/62 09/22/19 20:34 97.8 18 94 Laboratory Tests Test 09/22/19 06:40 White Blood Count 14.1 K/UL (4.8-10.8) H Red Blood Count 3.36 M/UL (4.20-5.40) L Hemoglobin 9.8 G/DL (12.0-16.0) L Hematocrit 29.6 % (37.0-47.0) L Mean Corpuscular Volume 88 FL (80-99) Mean Corpuscular Hemoglobin 29.0 PG (27.0-31.0) Mean Corpuscular Hemoglobin Concent 33.0 G/DL (32.0-36.0) Red Cell Distribution Width 13.4 % (11.6-14.8) Platelet Count 300 K/UL (150-450) Mean Platelet Volume 6.8 FL (6.5-10.1) Neutrophils (%) (Auto) % (45.0-75.0) Lymphocytes (%) (Auto) % (20.0-45.0) Monocytes (%) (Auto) % (1.0-10.0) Eosinophils (%) (Auto) % (0.0-3.0) Basophils (%) (Auto) % (0.0-2.0) Differential Total Cells Counted 100 Neutrophils % (Manual) 69 % (45-75) Lymphocytes % (Manual) 21 % (20-45) Monocytes % (Manual) 5 % (1-10) Eosinophils % (Manual) 5 % (0-3) H Basophils % (Manual) 0 % (0-2) Band Neutrophils 0 % (0-8) Platelet Estimate Adequate Platelet Morphology Normal Polychromasia 1+ Hypochromasia 1+ Sodium Level 140 MMOL/L (136-145) Potassium Level 3.8 MMOL/L (3.5-5.1) Chloride Level 102 MMOL/L (98-107) Carbon Dioxide Level 28 MMOL/L (21-32) Anion Gap 10 mmol/L (5-15) Blood Urea Nitrogen 63 mg/dL (7-18) H Creatinine 3.8 MG/DL (0.55-1.30) H Estimat Glomerular Filtration Rate 13.6 mL/min (>60) Glucose Level 100 MG/DL (74-106) Calcium Level 9.4 MG/DL (8.5-10.1) Phosphorus Level 2.8 MG/DL (2.5-4.9) Magnesium Level 2.4 MG/DL (1.8-2.4) Total Bilirubin 0.6 MG/DL (0.2-1.0) Aspartate Amino Transf (AST/SGOT) 30 U/L (15-37) Alanine Aminotransferase (ALT/SGPT) 28 U/L (12-78) Alkaline Phosphatase 75 U/L (46-116) Total Protein 6.5 G/DL (6.4-8.2) Albumin 2.6 G/DL (3.4-5.0) L Globulin 3.9 g/dL Albumin/Globulin Ratio 0.7 (1.0-2.7) L Head: normocophalic Neck: no rigidity Neurologic Exam Objective somnolent, non verbal not following withdraws to pain Impression/Recommendations Problems: (1) COVID-19 ruled out (2) UTI (urinary tract infection) (3) Acute anemia (4) Suspected COVID-19 virus infection (5) Anemia (6) Sepsis (7) Chronic kidney failure (8) Bacteremia due to Pseudomonas (9) Decubitus skin ulcer (10) Fever (11) Rhabdomyolysis (12) Elevated troponin (13) KAREN (acute kidney injury) (14) Elevated brain natriuretic peptide (BNP) level (15) ESRD (end stage renal disease) on dialysis (16) Pressure ulcer (17) Protein calorie malnutrition (18) Dysphagia Diagnostic Impression Acute on chronic encephalopathy, metabolic, sepsis ESRD on HD Sepsis 2/2 Klebsiella UTI and VRE Bacteremia--> course complete w/ meropenem and vancomycin on 09/17 Dementia, Peg tube dependent, Functional Quadriplegia and associated associated pressure ulcers Pancreatic lesion; evaluated by Sushil Madison MD September 22, 2019 23:00
[2019-09-23 04:09] VITALS: BP 116/72
[2019-09-23 07:11] LABS: ANION GAP 11 mmol/L (5-15); BLOOD UREA NITROGEN 72 mg/dL (7-18); CALCIUM 9.4 MG/DL (8.5-10.1); CARBON DIOXIDE 26 MMOL/L (21-32); CHLORIDE 102 MMOL/L (98-107); CREATININE 4.5 MG/DL (0.55-1.30); PHOSPHORUS 2.9 MG/DL (2.5-4.9); POTASSIUM 3.7 MMOL/L (3.5-5.1); SODIUM 139 MMOL/L (136-145)
[2019-09-23 07:16] LABS: BASOPHILS % (AUTO) 0.6 % (0.0-2.0); EOSINOPHILS % (AUTO) 4.6 % (0.0-3.0); HEMATOCRIT 29.2 % (37.0-47.0); HEMOGLOBIN 9.9 G/DL (12.0-16.0); LYMPHOCYTES % (AUTO) 25.4 % (20.0-45.0); MEAN CORPUSCULAR VOLUME 88 FL (80-99); MONOCYTES % (AUTO) 6.6 % (1.0-10.0); NEUTROPHILS % (AUTO) 62.8 % (45.0-75.0); PLATELET COUNT 330 K/UL (150-450); RED CELL DISTRIBUTION WIDTH 13.7 % (11.6-14.8); WHITE BLOOD COUNT 13.4 K/UL (4.8-10.8)
[2019-09-23 08:00] VITALS: BP 143/70
--- NOTE | 2019-09-23 08:39 | General Progress Note ---
Assessment/Plan Assessment/Plan: Assessment/Plan Status: stable Assessment/Plan: 1. End-stage renal disease, on hemodialysis. 2. Anemia iron def 3. Dysphagia, status post G-tube placement. 4. Pneumonia. 5. Pancreatic cyst. 6. Hypertension. 7. elevated CEA of 10 8. CAD 9. UTI chart from prior admissions reviewed iv iron repeat stool ob>> neg transfuse to keep HGB above 7 GTF 40 cc HD per nephrology will fu Subjective ROS Limited/Unobtainable: No Allergies: Coded Allergies: No Known Allergies (Unverified , 06/24/19) Objective Last 24 Hour Vital Signs Date Time Temp Pulse Resp B/P (MAP) Pulse Ox O2 Delivery O2 Flow Rate FiO2 09/23/19 04:09 98.0 90 18 116/72 (87) 94 09/22/19 20:58 Room Air 09/22/19 20:42 98 118/62 09/22/19 20:34 97.8 98 18 118/62 (80) 94 09/22/19 16:00 98.2 104 19 122/53 (76) 93 09/22/19 12:00 97.9 94 18 105/42 (63) 93 09/22/19 09:00 Room Air Intake and Output 09/22/19 09/23/19 18:59 06:59 Intake Total 957.5 ml 880 ml Output Total 150 ml 120 ml Balance 807.5 ml 760 ml Free Water 160 ml 100 ml IV Total 477.5 ml 300 ml Tube Feeding 320 ml 480 ml Output Urine Total 150 ml 120 ml # Bowel Movements 1 Laboratory Tests 09/23/19 06:15: White Blood Count 13.4H, Red Blood Count 3.30L, Hemoglobin 9.9L, Hematocrit 29.2L, Mean Corpuscular Volume 88, Mean Corpuscular Hemoglobin 30.0, Mean Corpuscular Hemoglobin Concent 33.9, Red Cell Distribution Width 13.7, Platelet Count 330, Mean Platelet Volume 6.5, Neutrophils (%) (Auto) 62.8, Lymphocytes (% ) (Auto) 25.4, Monocytes (%) (Auto) 6.6, Eosinophils (%) (Auto) 4.6H, Basophils (%) (Auto) 0.6, Sodium Level 139, Potassium Level 3.7, Chloride Level 102, Carbon Dioxide Level 26, Anion Gap 11, Blood Urea Nitrogen 72H, Creatinine 4.5H , Estimat Glomerular Filtration Rate 11.2, Glucose Level 127H, Calcium Level 9.4 , Phosphorus Level 2.9, Magnesium Level 2.3 Height (Feet): 5 Height (Inches): 6.00 Weight (Pounds): 117 General Appearance: alert EENT: PERRL/EOMI Neck: supple Cardiovascular: normal rate Respiratory/Chest: decreased breath sounds Abdomen: normal bowel sounds, non tender, soft Extremities: non-tender Jun Mena MD Sep 23, 2019 08:39
--- NOTE | 2019-09-23 09:15 | Nephrology Progress Note ---
Assessment/Plan Plan #ESRD on HD TTHS- #anemia of CKD #UTI #dysphagia s/p PEG #multiple pressure wounds #HTN -next HD today - hemoglobin stable - STRICT I&Os - daily weights - replete lytes - prbc transfusion for hemoglobin < 7 - Epo k TIW - IV iron - monitor CBC - on meropenem,flucon, vanco - continue coreg 6.25mg BID - replete phos - monitor mag, phos and BMP daily Time spent 45 min > 50% on care coordination and counseling Subjective ROS Limited/Unobtainable: Yes Subjective HD today afebrile overnight hemoglobin 9.8 Objective Objective Last 24 Hour Vital Signs Date Time Temp Pulse Resp B/P (MAP) Pulse Ox O2 Delivery O2 Flow Rate FiO2 09/23/19 04:09 98.0 90 18 116/72 (87) 94 09/22/19 20:58 Room Air 09/22/19 20:42 98 118/62 09/22/19 20:34 97.8 98 18 118/62 (80) 94 09/22/19 16:00 98.2 104 19 122/53 (76) 93 09/22/19 12:00 97.9 94 18 105/42 (63) 93 Intake and Output 09/22/19 09/23/19 18:59 06:59 Intake Total 957.5 ml 880 ml Output Total 150 ml 120 ml Balance 807.5 ml 760 ml Free Water 160 ml 100 ml IV Total 477.5 ml 300 ml Tube Feeding 320 ml 480 ml Output Urine Total 150 ml 120 ml # Bowel Movements 1 Laboratory Tests 09/23/19 06:15: White Blood Count 13.4H, Red Blood Count 3.30L, Hemoglobin 9.9L, Hematocrit 29.2L, Mean Corpuscular Volume 88, Mean Corpuscular Hemoglobin 30.0, Mean Corpuscular Hemoglobin Concent 33.9, Red Cell Distribution Width 13.7, Platelet Count 330, Mean Platelet Volume 6.5, Neutrophils (%) (Auto) 62.8, Lymphocytes (% ) (Auto) 25.4, Monocytes (%) (Auto) 6.6, Eosinophils (%) (Auto) 4.6H, Basophils (%) (Auto) 0.6, Sodium Level 139, Potassium Level 3.7, Chloride Level 102, Carbon Dioxide Level 26, Anion Gap 11, Blood Urea Nitrogen 72H, Creatinine 4.5H , Estimat Glomerular Filtration Rate 11.2, Glucose Level 127H, Calcium Level 9.4 , Phosphorus Level 2.9, Magnesium Level 2.3 Height (Feet): 5 Height (Inches): 6.00 Weight (Pounds): 117 Objective General Appearance: confused, cachetic, thin Lines, tubes and drains: peripheral HEENT: normocephalic, atraumatic Respiratory/Chest: chest wall non-tender, no respiratory distress Cardiovascular/Chest: normal peripheral pulses Abdomen: feeding tube Extremities: non-pitting, no cyanosis, other - unable to move extremities. Skin Exam: other - pressure ulcers Rory Oconnor M.D. Sep 23, 2019 09:14
[2019-09-23] MEDS: Carvedilol 6.25mg Tab GT SCH ×2 (09:53→21:00)
[2019-09-23] MEDS: Heparin 5000 units/ml inj SUBQ SCH ×2 (09:55→21:14)
--- NOTE | 2019-09-23 10:31 | Pulmonology Progress Note ---
Subjective ROS Limited/Unobtainable: Yes Interval Events: None new Constitutional: Denies: fever Gastrointestinal/Abdominal: Denies: nausea, vomiting, diarrhea Psychiatric: Reports: other - NA Skin: Denies: rash Musculoskeletal: Denies: pain Allergies: Coded Allergies: No Known Allergies (Unverified , 06/24/19) All Systems: reviewed and negative except above - All 12 point ROS negative Objective Last 24 Hour Vital Signs Date Time Temp Pulse Resp B/P (MAP) Pulse Ox O2 Delivery O2 Flow Rate FiO2 09/23/19 09:53 102 143/70 09/23/19 04:09 98.0 90 18 116/72 (87) 94 09/22/19 20:58 Room Air 09/22/19 20:42 98 118/62 09/22/19 20:34 97.8 98 18 118/62 (80) 94 09/22/19 16:00 98.2 104 19 122/53 (76) 93 09/22/19 12:00 97.9 94 18 105/42 (63) 93 Intake and Output 09/22/19 09/23/19 19:00 07:00 Intake Total 957.5 ml 880 ml Output Total 150 ml 120 ml Balance 807.5 ml 760 ml Free Water 160 ml 100 ml IV Total 477.5 ml 300 ml Tube Feeding 320 ml 480 ml Output Urine Total 150 ml 120 ml # Bowel Movements 1 General Appearance: no acute distress HEENT: normocephalic Respiratory: chest wall non-tender, lungs clear Cardiovascular: normal peripheral pulses, normal rate Abdomen: normal bowel sounds Microbiology Date/Time Source Procedure Growth Status 09/21/19 04:00 Stool Clostridium difficile Toxin Assay - Final Complete Laboratory Tests 09/23/19 06:15: White Blood Count 13.4H, Red Blood Count 3.30L, Hemoglobin 9.9L, Hematocrit 29.2L, Mean Corpuscular Volume 88, Mean Corpuscular Hemoglobin 30.0, Mean Corpuscular Hemoglobin Concent 33.9, Red Cell Distribution Width 13.7, Platelet Count 330, Mean Platelet Volume 6.5, Neutrophils (%) (Auto) 62.8, Lymphocytes (% ) (Auto) 25.4, Monocytes (%) (Auto) 6.6, Eosinophils (%) (Auto) 4.6H, Basophils (%) (Auto) 0.6, Sodium Level 139, Potassium Level 3.7, Chloride Level 102, Carbon Dioxide Level 26, Anion Gap 11, Blood Urea Nitrogen 72H, Creatinine 4.5H , Estimat Glomerular Filtration Rate 11.2, Glucose Level 127H, Calcium Level 9.4 , Phosphorus Level 2.9, Magnesium Level 2.3 Current Medications Medications (Trade) Dose Ordered Sig/Joan Route PRN Reason Start Time Stop Time Status Last Admin Dose Admin Acetaminophen (Tylenol) 650 mg Q4H PRN GT Mild Pain (Pain Scale 1-3) 09/18/19 19:30 10/08/19 19:29 09/20/19 13:14 Atorvastatin Calcium (Lipitor) 10 mg BEDTIME GT 09/18/19 21:00 12/07/19 20:59 09/22/19 20:41 Carvedilol (Coreg) 6.25 mg EVERY 12 HOURS GT 09/18/19 21:00 10/08/19 08:59 09/23/19 09:53 Epoetin Dion (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)) 4,000 unit MON-MON-MON SUBQ 09/18/19 21:00 12/17/19 20:59 09/20/19 21:19 Fluconazole/ Sodium Chloride 100 ml @ 100 mls/hr Q24H IV 09/22/19 14:00 09/29/19 13:59 09/22/19 15:31 Gabapentin (Neurontin) 300 mg THREE TIMES A DAY GT 09/19/19 09:00 10/19/19 08:59 09/23/19 09:53 Heparin Sodium (Porcine) (Heparin 5000 units/ml) 5,000 units EVERY 12 HOURS SUBQ 09/18/19 21:00 11/01/19 15:42 09/23/19 09:55 Linezolid 300 ml @ 300 mls/hr EVERY 12 HOURS IVPB 09/21/19 21:00 09/28/19 20:59 09/23/19 09:54 Loperamide HCl (Imodium) 2 mg Q6H PRN GT Diarrhea 09/18/19 19:30 10/13/19 19:29 09/22/19 18:02 Meropenem 500 mg/ Sodium Chloride 50 ml @ 100 mls/hr Q24HRS IVPB 09/22/19 14:00 09/27/19 13:59 09/22/19 14:23 Morphine Sulfate (Morphine Sulfate) 1 mg Q4H PRN IVP For Pain 09/22/19 14:00 09/29/19 13:59 09/22/19 14:25 Assessment/Plan Assessment/Plan IMPRESSION: 1. UTI. 2. Anemia. 3. ESRD, on dialysis. 4. Initial COVID-19 negative. DISCUSSION: Continue current medications and care. Initial COVID-19 pcr negative Blood transfusion. Empiric antibiotics. Hemodialysis. Saturating well on RA I will follow carefully. Ross Nina Omar Syed MD Sep 23, 2019 10:31
[2019-09-23] MEDS: Morphine Sulfate 2mg/ml Inj(IV/IM USE ONLY) IVP PRN (10:48)
--- NOTE | 2019-09-23 11:33 | Diagnostic Imaging Report ---
Indication: Chest pain Technique: One view of the chest Comparison: 09/21/2019 Findings: There are atelectatic changes at the left lung base. Generalized mild interstitial prominence persists, unchanged. There may be a small amount of pleural fluid on the left. The heart size is normal. The aorta is tortuous calcified. There is a right chest tunneled dialysis catheter. There is a gastrostomy. Findings are unchanged Impression: Unchanged, over 2 days, findings as above.
[2019-09-23 12:00] VITALS: BP 123/77
--- NOTE | 2019-09-23 12:54 | Surgery Progress Note ---
Surgery Progress Note Subjective Additional Comments no acute events leukocytosis comfortable appearing no complaints Objective Last 24 Hour Vital Signs Date Time Temp Pulse Resp B/P (MAP) Pulse Ox O2 Delivery O2 Flow Rate FiO2 09/23/19 11:18 98.2 09/23/19 09:53 102 143/70 09/23/19 09:00 Room Air 09/23/19 08:00 98.2 102 26 143/70 (94) 94 09/23/19 04:09 98.0 90 18 116/72 (87) 94 09/22/19 20:58 Room Air 09/22/19 20:42 98 118/62 09/22/19 20:34 97.8 98 18 118/62 (80) 94 09/22/19 16:00 98.2 104 19 122/53 (76) 93 I&O Intake and Output 09/22/19 09/23/19 19:00 07:00 Intake Total 957.5 ml 880 ml Output Total 150 ml 120 ml Balance 807.5 ml 760 ml Free Water 160 ml 100 ml IV Total 477.5 ml 300 ml Tube Feeding 320 ml 480 ml Output Urine Total 150 ml 120 ml # Bowel Movements 1 Dressing: other Wound: other Drains: other Cardiovascular: RSR Respiratory: decreased breath sounds Abdomen: soft, non-tender, present bowel sounds Extremities: no cyanosis Laboratory Tests Test 09/23/19 06:15 White Blood Count 13.4 K/UL (4.8-10.8) H Red Blood Count 3.30 M/UL (4.20-5.40) L Hemoglobin 9.9 G/DL (12.0-16.0) L Hematocrit 29.2 % (37.0-47.0) L Mean Corpuscular Volume 88 FL (80-99) Mean Corpuscular Hemoglobin 30.0 PG (27.0-31.0) Mean Corpuscular Hemoglobin Concent 33.9 G/DL (32.0-36.0) Red Cell Distribution Width 13.7 % (11.6-14.8) Platelet Count 330 K/UL (150-450) Mean Platelet Volume 6.5 FL (6.5-10.1) Neutrophils (%) (Auto) 62.8 % (45.0-75.0) Lymphocytes (%) (Auto) 25.4 % (20.0-45.0) Monocytes (%) (Auto) 6.6 % (1.0-10.0) Eosinophils (%) (Auto) 4.6 % (0.0-3.0) H Basophils (%) (Auto) 0.6 % (0.0-2.0) Sodium Level 139 MMOL/L (136-145) Potassium Level 3.7 MMOL/L (3.5-5.1) Chloride Level 102 MMOL/L (98-107) Carbon Dioxide Level 26 MMOL/L (21-32) Anion Gap 11 mmol/L (5-15) Blood Urea Nitrogen 72 mg/dL (7-18) H Creatinine 4.5 MG/DL (0.55-1.30) H Estimat Glomerular Filtration Rate 11.2 mL/min (>60) Glucose Level 127 MG/DL (74-106) H Calcium Level 9.4 MG/DL (8.5-10.1) Phosphorus Level 2.9 MG/DL (2.5-4.9) Magnesium Level 2.3 MG/DL (1.8-2.4) Plan Problems: (1) COVID-19 ruled out Assessment & Plan: FINDINGS: Lungs: Left basilar opacity with volume loss, likely atelectasis however a focus of infection could have a similar appearance. Pleural space: No pleural effusion. No pneumothorax. Heart: Unremarkable. No cardiomegaly. Bones/joints: No fracture. Vasculature: Atherosclerotic calcifications. Tubes, lines and devices: Right IJ large bore dialysis catheter terminates within the right atrium. IMPRESSION: Left basilar opacity with volume loss, likely atelectasis however a focus of infection could have a similar appearance. leukocytosis anemia pending test (2) Protein calorie malnutrition Assessment & Plan: DAILY ESTIMATED NEEDS: Needs based on Wounds, HD 57kg 30-35 kcals/kg 5039-1771 total kcals 1.25-1.8 g protein/kg 71-103 g total protein Fluids per MD mL/kg . total fluid mLs NUTRITION DIAGNOSIS: * Increased kcal and prot needs r/t wound healing and renal failure as evidenced by w/ multiple pressure injuries, including full thickness and unstageable wounds, refer to MD reports, pt w/ ESRD on HD, GT dep. CURRENT TF:Nepro @ 40ml/hr x 20 hrs ENTERAL NUTRITION RECOMMENDATIONS: Nepro @ 45ml/hr x 22 hrs to provide 990ml, 1782kcal, 80g prot, 720ml free water - Rec to INCREASE RATE AND RUNNING TIME ABOVE to better meet est kcal and pro needs - HOB over 30 degrees/ water flush per MD ADDITIONAL RECOMMENDATIONS: 1) Calibrated bedscale wt 2) Wound Care: add Nephrovite x 1 add Saw 1ptk BID via GT 3) Monitor BGs, consider NISS: BGs consistently mildly elevated 4) Monitor lytes and renal fxn (3) Pressure ulcer (4) Decubitus skin ulcer Assessment & Plan: Pt presented on admission with multiple Pressure injuries. Full thickness Pressure Injury R shoulder(L)2.8cm x (W)2cm. Base of wound is 75 % slough, 25% beefy red granulation. Slough removed with gentle friction. Post removal of slough,small amt slough at base of wound. Small amt sanguineous exudate. Edges flat and adherent to base of wound. Periwound without erythema, induration or fluctuance. Darker skin tone without induration ,fluctuance or tenderness at sacrococcygeal area. Non-blanching erythema and scattered areas of hyperpigmentation noted to R and L gluteal cheeks. Pt denied tenderness when affected areas palpated. Full thickness Pressure injury R hip (L)5.5cm x (W)10.2cm x (D)2.6cm. Base of wound is 75% pink granulation,25% Loose fibrinous slough. Bone is palpable.Edges flat ,pink and adherent to base of wound. Small amt. non-odorous serous exudate. Hypopigmentation noted to perineum and labia majora. Unstageable Pressure Injury R heel(L)3.5cm x (W)3.3cm . Base of wound is 100% necrotic with semidetached with surrounding yellow slough. Edges area dry, black. Periwound is non-blanchable and fluctuant. Maroon discoloration with fluctuance noted to distal/lateral R foot (L)2.8cm x ( W)2.5cm. Resolving pressure injury R Hallux(L)3.5cm x (W)3.3cm.[place] epithelial at base of wound with surrounding dry brown borders. L heel is boggy with non-blanching erythema.Historical scarring from previous wounds noted. Unstageable Pressure Injury L hallux(L)3.5cm x (W)2.8cm. Base of wound has 90% loose necrotic cap,surrounding slough. Loose necrotic cap easily removed with saline moistened gauze. At base of wound is 100% yellow slough, marginal erythema with small area of necrosis noted along borders. Small amt seropurulent non-odorous exudate noted. Stable dry necrosis at L st metatarsal head. Tx.Plan: Cleanse wound R shoulder with Saline. Apply Therahoney. Apply Cavilon Skin Barrier periwound. Cover with Optifoam drsg. Change every 3 days and prn. Cleanse R hip with Saline. Loosely pack with Therahoney impregnated Kerlix. Apply Moisture Barrier Paste periwound. Cover with Optifoam drsg. Change Daily and prn. Apply Moisture Barrier Paste to Sacrum. Cover with Optifoam drsg. Change every 3 days and prn. Apply Betadine to R heel, R hallux,Distal/lateral R foot. Cover with Abd pad and wrap with Kerlix every 3 days and prn. Apply Betadine to L hallux,L 1st metatarsal head,L heel. Cover with Abd pads and wrap with Kerlix every 3 days and prn. Reposition Back to L Side at least every 2hours or as tolerated. Place Pillow between knees. Off-load heels with pillow. APM/TIEN Mattress overlay. (5) Suspected COVID-19 virus infection (6) Anemia Assessment & Plan: transfused prbc h/h stable trend labs Anshul Nava Sep 23, 2019 12:54
--- NOTE | 2019-09-23 13:41 | Cardiac Electrophysiology PN ---
Assessment/Plan Assessment/Plan 1. BNP of more than 6000. On HD. EF 65%. Ruled out for LA On HD 2. Hypertension. Continue Coreg 6.25 mg bid and HD 3. Recurrent fever and high WBC and UTI. On Abx per Dr. Rosado. 4. S/P PEG placement. 5. Dementia. 6. ESRD on HD per Dr. Bowen. 7. Severe anemia Hb 6.9, S/P 2 units of PRBC DW RN Subjective Subjective Nonverbal. DC to [facility] cancelled as had T 101.4 and abx changed. Covid negative x 2. Had 2 litr HD yesterday Objective Last 24 Hour Vital Signs Date Time Temp Pulse Resp B/P (MAP) Pulse Ox O2 Delivery O2 Flow Rate FiO2 09/23/19 11:18 98.2 09/23/19 09:53 102 143/70 09/23/19 09:00 Room Air 09/23/19 08:00 98.2 102 26 143/70 (94) 94 09/23/19 04:09 98.0 90 18 116/72 (87) 94 09/22/19 20:58 Room Air 09/22/19 20:42 98 118/62 09/22/19 20:34 97.8 98 18 118/62 (80) 94 09/22/19 16:00 98.2 104 19 122/53 (76) 93 Intake and Output 09/22/19 09/23/19 19:00 07:00 Intake Total 957.5 ml 880 ml Output Total 150 ml 120 ml Balance 807.5 ml 760 ml Free Water 160 ml 100 ml IV Total 477.5 ml 300 ml Tube Feeding 320 ml 480 ml Output Urine Total 150 ml 120 ml # Bowel Movements 1 Laboratory Tests Test 09/23/19 06:15 White Blood Count 13.4 K/UL (4.8-10.8) H Red Blood Count 3.30 M/UL (4.20-5.40) L Hemoglobin 9.9 G/DL (12.0-16.0) L Hematocrit 29.2 % (37.0-47.0) L Mean Corpuscular Volume 88 FL (80-99) Mean Corpuscular Hemoglobin 30.0 PG (27.0-31.0) Mean Corpuscular Hemoglobin Concent 33.9 G/DL (32.0-36.0) Red Cell Distribution Width 13.7 % (11.6-14.8) Platelet Count 330 K/UL (150-450) Mean Platelet Volume 6.5 FL (6.5-10.1) Neutrophils (%) (Auto) 62.8 % (45.0-75.0) Lymphocytes (%) (Auto) 25.4 % (20.0-45.0) Monocytes (%) (Auto) 6.6 % (1.0-10.0) Eosinophils (%) (Auto) 4.6 % (0.0-3.0) H Basophils (%) (Auto) 0.6 % (0.0-2.0) Sodium Level 139 MMOL/L (136-145) Potassium Level 3.7 MMOL/L (3.5-5.1) Chloride Level 102 MMOL/L (98-107) Carbon Dioxide Level 26 MMOL/L (21-32) Anion Gap 11 mmol/L (5-15) Blood Urea Nitrogen 72 mg/dL (7-18) H Creatinine 4.5 MG/DL (0.55-1.30) H Estimat Glomerular Filtration Rate 11.2 mL/min (>60) Glucose Level 127 MG/DL (74-106) H Calcium Level 9.4 MG/DL (8.5-10.1) Phosphorus Level 2.9 MG/DL (2.5-4.9) Magnesium Level 2.3 MG/DL (1.8-2.4) Microbiology Date/Time Source Procedure Growth Status 09/21/19 04:00 Stool Clostridium difficile Toxin Assay - Final Complete Objective HEAD AND NECK: No JVD. LUNGS: Coarse rhonchi. CARDIOVASCULAR: Regular S1 and S2 with no gallop. ABDOMEN: Status post G-tube. EXTREMITIES: No pitting edema. Cristopher Osman MD Sep 23, 2019 13:41
[2019-09-23 14:00] VITALS: BP 123/77
[2019-09-23 16:00] VITALS: BP 135/73
--- NOTE | 2019-09-23 18:38 | Infectious Diseases Prog Note ---
Assessment/Plan Assessment/Plan ASSESSMENT AND PLAN: 1. 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 septic again, ? source vre uti, ? vre, possible aspiration pna/hcap fungemia risk, c.diff. - negative - meropenem, zyvox and diflucan - day # 3 combination - f/u on cultures and chest x -ray - monitor labs - covid-19 pcr neg x 2- remove isolation 2. She has history of hemodialysis, end-stage renal disease, chronic kidney disease. 3. The patient has history of hypertension. 4. Anemia. 5. Elevated creatinine. 6. Hypertension treatment per primary care team. 7. Wound care per Surgery. 8. Dysphagia, G-tube 9. No known drug allergies. 10. Social history is negative. 11. Family History is noncontributory. 12. MAR was noted. 13. Case discussed with RN. 14. Continue treatment per primary consultants. 15. Orders were noted and entered. Subjective Constitutional: Reports: fatigue, other - agitated ; Denies: fever HEENT: Denies: congestion Respiratory: Denies: shortness of breath Cardiovascular: Denies: chest pain Gastrointestinal/Abdominal: Denies: nausea, vomiting, diarrhea Genitourinary: Reports: other - + hargrove and hd Neurologic: Reports: other - more alert Psychiatric: Reports: other - NA Skin: Reports: other - wounds - covered ; Denies: rash Hematologic: Denies: bleeding Musculoskeletal: Denies: pain Allergies: Coded Allergies: No Known Allergies (Unverified , 06/24/19) Objective Vital Signs Last 24 Hour Vital Signs Date Time Temp Pulse Resp B/P (MAP) Pulse Ox O2 Delivery O2 Flow Rate FiO2 09/23/19 14:00 98.1 91 26 123/77 (92) 93 09/23/19 12:00 98.1 91 26 123/77 (92) 93 09/23/19 11:18 98.2 09/23/19 09:53 102 143/70 09/23/19 09:00 Room Air 09/23/19 08:00 98.2 102 26 143/70 (94) 94 09/23/19 04:09 98.0 90 18 116/72 (87) 94 09/22/19 20:58 Room Air 5/31/20 20:42 98 118/62 09/22/19 20:34 97.8 98 18 118/62 (80) 94 Height (Feet): 5 Height (Inches): 6.00 Weight (Pounds): 117 General Appearance: no acute distress HEENT: normocephalic, atraumatic, anicteric, mucous membranes moist Respiratory/Chest: crackles/rales, rhonchi - bilaterally Cardiovascular: normal rate, regular rhythm, no gallop/murmur, no JVD Abdomen: normal bowel sounds, soft, non tender, no organomegaly, non distended Genitourinary: other - + hargrove - urine slt cloudy Extremities: no cyanosis Skin: no rash, other - wounds - covered Neurologic/Psychiatric: outsole molder 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 normal, alert, responsive Lymphatic: no neck adenopathy Musculoskeletal: no effusion Objective 09/21/19 - Procedure: XRAY Chest 1v Procedure: XRAY Chest 1v Reason for study: Shortness of breath. Comparison films: 09/07/2019. FINDINGS: Right central venous catheter remains in place. Vascularity is normal. Mild left basilar hazy densities unchanged. Cardiac and mediastinal silhouette are within normal limits. There may be a trace left effusion. The bony thorax appear unremarkable. IMPRESSION: NO ACUTE CARDIOPULMONARY DISEASE. Chest x-ray - 09/21/19 - IMPRESSION: Similar diffuse interstitial opacities may represent chronic interstitial lung changes versus pulmonary vasculature congestion versus infectious/inflammatory process. No possible small left pleural effusion. Chest x-ray - 09/23/19 - Procedure: XRAY Chest 1v Indication: Chest pain Technique: One view of the chest Comparison: 09/21/2019 Findings: There are atelectatic changes at the left lung base. Generalized mild interstitial prominence persists, unchanged. There may be a small amount of pleural fluid on the left. The heart size is normal. The aorta is tortuous calcified. There is a right chest tunneled dialysis catheter. There is a gastrostomy. Findings are unchanged Impression: Unchanged, over 2 days, findings as above. Microbiology Date/Time Source Procedure Growth Status 09/19/19 18:35 Blood Blood Culture - Preliminary NO GROWTH AFTER 72 HOURS Resulted 09/08/19 07:30 Wound Gram Stain - Final Complete 09/08/19 07:30 Wound Culture - Final Usual Skin Cristina Complete 09/19/19 16:30 Nasal Nares MRSA Culture - Final NO METHICILLIN RESISTANT STAPH AUREUS... Complete 09/21/19 04:00 Stool Clostridium difficile Toxin Assay - Final Complete 09/20/19 02:20 Indwelling Cath Urine Culture - Preliminary Enterococcus Faecium - Vre Resulted 09/07/19 18:50 Rectum - Final NO CARBAPENEM-RESISTANT ENTEROBACTERI... Complete Microbiology Date/Time Source Procedure Growth Status 09/21/19 04:00 Stool Clostridium difficile Toxin Assay - Final Complete Laboratory Tests Test 09/23/19 06:15 White Blood Count 13.4 K/UL (4.8-10.8) H Red Blood Count 3.30 M/UL (4.20-5.40) L Hemoglobin 9.9 G/DL (12.0-16.0) L Hematocrit 29.2 % (37.0-47.0) L Mean Corpuscular Volume 88 FL (80-99) Mean Corpuscular Hemoglobin 30.0 PG (27.0-31.0) Mean Corpuscular Hemoglobin Concent 33.9 G/DL (32.0-36.0) Red Cell Distribution Width 13.7 % (11.6-14.8) Platelet Count 330 K/UL (150-450) Mean Platelet Volume 6.5 FL (6.5-10.1) Neutrophils (%) (Auto) 62.8 % (45.0-75.0) Lymphocytes (%) (Auto) 25.4 % (20.0-45.0) Monocytes (%) (Auto) 6.6 % (1.0-10.0) Eosinophils (%) (Auto) 4.6 % (0.0-3.0) H Basophils (%) (Auto) 0.6 % (0.0-2.0) Sodium Level 139 MMOL/L (136-145) Potassium Level 3.7 MMOL/L (3.5-5.1) Chloride Level 102 MMOL/L (98-107) Carbon Dioxide Level 26 MMOL/L (21-32) Anion Gap 11 mmol/L (5-15) Blood Urea Nitrogen 72 mg/dL (7-18) H Creatinine 4.5 MG/DL (0.55-1.30) H Estimat Glomerular Filtration Rate 11.2 mL/min (>60) Glucose Level 127 MG/DL (74-106) H Calcium Level 9.4 MG/DL (8.5-10.1) Phosphorus Level 2.9 MG/DL (2.5-4.9) Magnesium Level 2.3 MG/DL (1.8-2.4) Current Medications Medications (Trade) Dose Ordered Sig/Joan Route PRN Reason Start Time Stop Time Status Last Admin Dose Admin Acetaminophen (Tylenol) 650 mg Q4H PRN GT Mild Pain (Pain Scale 1-3) 09/18/19 19:30 10/08/19 19:29 09/20/19 13:14 Albumin Human 100 ml @ 100 mls/hr ONCE ONCE IV 09/23/19 18:00 09/23/19 18:59 Atorvastatin Calcium (Lipitor) 10 mg BEDTIME GT 09/18/19 21:00 12/07/19 20:59 09/22/19 20:41 Carvedilol (Coreg) 6.25 mg EVERY 12 HOURS GT 09/18/19 21:00 10/08/19 08:59 09/23/19 09:53 Epoetin Dion (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)) 4,000 unit MON-MON-MON SUBQ 09/18/19 21:00 12/17/19 20:59 09/20/19 21:19 Fluconazole/ Sodium Chloride 100 ml @ 100 mls/hr Q24H IV 09/22/19 14:00 09/29/19 13:59 09/23/19 14:09 Gabapentin (Neurontin) 300 mg THREE TIMES A DAY GT 09/19/19 09:00 10/19/19 08:59 09/23/19 17:55 Heparin Sodium (Porcine) (Heparin 5000 units/ml) 5,000 units EVERY 12 HOURS SUBQ 09/18/19 21:00 11/01/19 15:42 09/23/19 09:55 Linezolid 300 ml @ 300 mls/hr EVERY 12 HOURS IVPB 09/21/19 21:00 09/28/19 20:59 09/23/19 09:54 Loperamide HCl (Imodium) 2 mg Q6H PRN GT Diarrhea 09/18/19 19:30 10/13/19 19:29 09/22/19 18:02 Meropenem 500 mg/ Sodium Chloride 50 ml @ 100 mls/hr Q24HRS IVPB 09/22/19 14:00 09/27/19 13:59 09/23/19 14:10 Morphine Sulfate (Morphine Sulfate) 1 mg Q4H PRN IVP For Pain 09/22/19 14:00 09/29/19 13:59 09/23/19 10:48 Ana Rosado MD Sep 23, 2019 18:38
--- NOTE | 2019-09-23 18:39 | General Progress Note ---
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 #ESRD on HD #Anemia of Chronic Disease #Type II [place] demand Ischemia, HTN #Dementia, Peg tube dependent, Functional Quadriplegia and associated associated pressure ulcers - HD as scheduled w/ epogen dosing. - Coreg, ASA, Atorvastatin. - DVT ppx, supportive measures. - Tube Feeds. - Appreciate Consultants. #Sepsis 2/2 Klebsiella UTI and VRE Bacteremia--> spiked fevers again, so started back on tx on 09/18 w/ repeat Horton Cx #Urinary tract infection-Complicated: #Indwelling Hargrove catheter for wound protection #leukocytosis- uptrending now but clinically improving - Appreciate ID recommendations. D/w Dr. Lynn - Continue zosyn, amikacin (09/18 - ) - Continue zyvox (09/20 - ) - off Vanc - follow cultures - check C diff -> negative #ESRD on HD #Acute on chronic anemia, now resolved #Anemia of ESRD -Serum hgb:7.4 -Continue to monitor; CBC Q 8H -cont. to monitor for signs/symptoms of bleeding -Transfuse for hgb <7.0 -EPOGEN per nephro -Dr. Oconnor (nephrology) on board. Appreciate further recommendations. #HTN #elevated troponin #Elevated BNP -trops stable at baseline -likely due to demand ischemia, ESRD, sepsis -ASA, statin -Continue home Lasix -hydralazine PRN for SBP >160 -Carvedilol 6.25 mg BID -Cardio following consult #Dysphagia -s/p PEG -tolerating TF -Dietary and GI following, recs appreciated #Advanced Dementia -stable -neuro following, appreciate recs #Pressure wounds -Will consult wound care F: Tube feeding E:Monitor and replete PRN N: Tube feeding. DVT PPx: HSQ Spent 41 minutes on the patient's case and 23 on counseling and care coordination. Case discussed with RN at the bedside, nephrology, infecitous disease. Time of note may not reflect time patient was seen Subjective Date patient seen: Sep 23, 2019 Allergies: Coded Allergies: No Known Allergies (Unverified , 06/24/19) Subjective AVSS Leukocytosis persistent Hb stable tolerating abx Objective Last 24 Hour Vital Signs Date Time Temp Pulse Resp B/P (MAP) Pulse Ox O2 Delivery O2 Flow Rate FiO2 09/23/19 16:00 98.2 111 26 135/73 (93) 93 09/23/19 14:00 98.1 91 26 123/77 (92) 93 09/23/19 12:00 98.1 91 26 123/77 (92) 93 09/23/19 11:18 98.2 09/23/19 09:53 102 143/70 09/23/19 09:00 Room Air 09/23/19 08:00 98.2 102 26 143/70 (94) 94 09/23/19 04:09 98.0 90 18 116/72 (87) 94 09/22/19 20:58 Room Air 09/22/19 20:42 98 118/62 09/22/19 20:34 97.8 98 18 118/62 (80) 94 Intake and Output 09/22/19 09/23/19 19:00 07:00 Intake Total 957.5 ml 880 ml Output Total 150 ml 120 ml Balance 807.5 ml 760 ml Free Water 160 ml 100 ml IV Total 477.5 ml 300 ml Tube Feeding 320 ml 480 ml Output Urine Total 150 ml 120 ml # Bowel Movements 1 Laboratory Tests 09/23/19 06:15: White Blood Count 13.4H, Red Blood Count 3.30L, Hemoglobin 9.9L, Hematocrit 29.2L, Mean Corpuscular Volume 88, Mean Corpuscular Hemoglobin 30.0, Mean Corpuscular Hemoglobin Concent 33.9, Red Cell Distribution Width 13.7, Platelet Count 330, Mean Platelet Volume 6.5, Neutrophils (%) (Auto) 62.8, Lymphocytes (% ) (Auto) 25.4, Monocytes (%) (Auto) 6.6, Eosinophils (%) (Auto) 4.6H, Basophils (%) (Auto) 0.6, Sodium Level 139, Potassium Level 3.7, Chloride Level 102, Carbon Dioxide Level 26, Anion Gap 11, Blood Urea Nitrogen 72H, Creatinine 4.5H , Estimat Glomerular Filtration Rate 11.2, Glucose Level 127H, Calcium Level 9.4 , Phosphorus Level 2.9, Magnesium Level 2.3 Height (Feet): 5 Height (Inches): 6.00 Weight (Pounds): 117 Objective General: Chronically ill appearing female in NAD, lethargic but arousable ( improving) HEENT: Normocephalic cephalic atraumatic, pupils equal round reactive to light and accommodation, nares patent and no symmetrical, no tonsillar exudates, mucous membranes moist CV: Regular rate regular rhythm, no murmurs, rubs, or gallops Pulm: Lungs clear to auscultation bilaterally. No wheezes, rhonchi, or rales GI: Soft, nontender, nondistended, bowel sounds present Neuro: CN 2-12 intact bilaterally, no focal signs. Ext: No lower extremity edema bilaterally Skin: Multiple pressure ulcers. See wound photos : Chronic hargrove in place Msk: Joints symmetrical in upper extremity and lower extremity bilaterally, no joint swelling. Lymph: No lymphadenopathy in upper extremity and lower extremity Champ Avila MD Sep 23, 2019 18:39
[2019-09-23 20:00] VITALS: BP 113/51
--- NOTE | 2019-09-23 20:35 | Hematology/Onc Progress Note ---
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 Otherwise unremarkable pancreas --> as per gi, may need further eval with endsocopy --> with pancreatitis at this time, may be obscuring picture --> reimage in short order, 6 months --> ca19.9 60 but may be elevated due to pancreatitis --> cea of 10--> --> monitor lfts daily # Anemia of chronic disease due to underlying chronic medical issues, multifactorial v Gi bleed --> Anemia workup has been reviewed, ferritin 1300 -->1800 --> No evidence of hemolysis is noted, peripheral smear has been reviewed. --> Hgb goal >7. Transfuse prn. --> Epogen has been started --> IV IRON completed --> Medications have been reviewed --> hgb 6-->7.1-->12-->11.2-->11.6 -->11.9->9.2 --> 09/07 stool ob negative --> rbc: 2 units 09/10/2019, --> bone marrow biopsy is not indicated given the other more likely causes # Leukocytosis/elevated white blood cell count, unspecified likely related to underlying stress reaction, smoking v more likely infection in this case, uti now --> have reviewed peripheral smear and bandemia/neutrophilia noted --> monitor for resolution --> as per id care, on broad spectrum abx --> wbc 14-->12-->9-->14.9-->12->14-->12 --> per id recs, on: cftx-->bethany/vanc-->zosyn/vanc-->linezolid/zosyn /bethany --> blood cx++ x2 --> 09/19 urine cx++ --> 09/20 cxr: Similar diffuse interstitial opacities may represent chronic interstitial lung changes versus pulmonary vasculature congestion versus infectious/inflammatory process # Thrombocytopenia - potential causes multifactorial, evaluate liver and viral etiologies to begin, in this case due to sepsisand pancreatitis --> Hep panel and HIV are both negative --> US abd to evaluate for cirrhosis and hsm --> pleural effusions noted, hsm is neg --> Peripheral smear ordered to evaluate for blasts /schistocytes --> abx and other meds have been reviewed --> ok for ppx if plt >50k w/ either heparin or lovenox # 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 Greatly appreciate consultation. Subjective HEENT: Denies: no symptoms, eye pain, blurred vision, tearing, double vision, ear pain, ear discharge, nose pain, nose congestion, throat pain, throat swelling, mouth pain, mouth swelling, other Cardiovascular: Denies: no symptoms, chest pain, edema, irregular heart rate, lightheadedness, palpitations, syncope, other Respiratory: Denies: no symptoms, cough, shortness of breath, SOB with excertion, SOB at rest, sputum, wheezing, other Gastrointestinal/Abdominal: Denies: no symptoms, abdomen distended, abdominal pain, black stools, tarry stools, blood in stool, constipated, diarrhea, difficulty swallowing, nausea, poor appetite, poor fluid intake, rectal bleeding , vomiting, other Genitourinary: Denies: no symptoms, burning, discharge, frequency, flank pain, hematuria, incontinence, pain, urgency, other Neurologic/Psychiatric: Denies: no symptoms, anxiety, depressed, emotional problems, headache, numbness, paresthesia, pre-existing deficit, seizure, tingling, tremors, weakness, other Endocrine: Denies: no symptoms, excessive sweating, flushing, intolerance to cold, intolerance to heat, increased hunger, increased thirst, increased urine, unexplained weight gain, unexplained weight loss, other Allergies: Coded Allergies: No Known Allergies (Unverified , 06/24/19) Subjective 09/09 obtunded, on tele, labs pending, stool ob negative, iv abx 09/10 s/p 2 units rbc, hgb improved to 12, on iv iron, hep b neg. 09/11 hd for today, h/h stable, no acute distress 09/12 nonverbal, no overnight events, bethany/vanc 09/13 le vishal duplex bilat negative, clood cx++ x2, no distress 09/14 labs noted, no bleeding, no night sweats, meds reviewed 09/15 hd as per renal, labs noted, no bleeding, no fc wbc 12k 09/16 cotninue on iv iron, labs noted, hgb relatively stable 09/19 for hd today, seenby renal, labs noted, no bleeding 09/20 urine cx+, today's labs pending, room air 09/21 no acute events, cxr reviewed, iv abx, gtf 09/22 remains on broad spectrum abx, labs noted, on gtf Objective Objective Current Medications Medications (Trade) Dose Ordered Sig/Joan Route PRN Reason Start Time Stop Time Status Last Admin Dose Admin Acetaminophen (Tylenol) 650 mg Q4H PRN GT Mild Pain (Pain Scale 1-3) 09/18/19 19:30 10/08/19 19:29 09/20/19 13:14 Atorvastatin Calcium (Lipitor) 10 mg BEDTIME GT 09/18/19 21:00 12/07/19 20:59 09/22/19 20:41 Carvedilol (Coreg) 6.25 mg EVERY 12 HOURS GT 09/18/19 21:00 10/08/19 08:59 09/23/19 09:53 Epoetin Dion (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)) 4,000 unit MON-MON-MON SUBQ 09/18/19 21:00 12/17/19 20:59 09/20/19 21:19 Fluconazole/ Sodium Chloride 100 ml @ 100 mls/hr Q24H IV 09/22/19 14:00 09/29/19 13:59 09/23/19 14:09 Gabapentin (Neurontin) 300 mg THREE TIMES A DAY GT 09/19/19 09:00 10/19/19 08:59 09/23/19 17:55 Heparin Sodium (Porcine) (Heparin 5000 units/ml) 5,000 units EVERY 12 HOURS SUBQ 09/18/19 21:00 11/01/19 15:42 09/23/19 09:55 Linezolid 300 ml @ 300 mls/hr EVERY 12 HOURS IVPB 09/21/19 21:00 09/28/19 20:59 09/23/19 09:54 Loperamide HCl (Imodium) 2 mg Q6H PRN GT Diarrhea 09/18/19 19:30 10/13/19 19:29 09/22/19 18:02 Meropenem 500 mg/ Sodium Chloride 50 ml @ 100 mls/hr Q24HRS IVPB 09/22/19 14:00 09/27/19 13:59 09/23/19 14:10 Morphine Sulfate (Morphine Sulfate) 1 mg Q4H PRN IVP For Pain 09/22/19 14:00 09/29/19 13:59 09/23/19 10:48 Last 24 Hour Vital Signs Date Time Temp Pulse Resp B/P (MAP) Pulse Ox O2 Delivery O2 Flow Rate FiO2 09/23/19 16:00 98.2 111 26 135/73 (93) 93 09/23/19 14:00 98.1 91 26 123/77 (92) 93 09/23/19 12:00 98.1 91 26 123/77 (92) 93 09/23/19 11:18 98.2 09/23/19 09:53 102 143/70 09/23/19 09:00 Room Air 09/23/19 08:00 98.2 102 26 143/70 (94) 94 09/23/19 04:09 98.0 90 18 116/72 (87) 94 09/22/19 20:58 Room Air 09/22/19 20:42 98 118/62 09/22/19 20:34 97.8 98 18 118/62 (80) 94 09/22/19 16:00 98.2 104 19 122/53 (76) 93 09/22/19 12:00 97.9 94 18 105/42 (63) 93 09/22/19 09:00 Room Air 09/22/19 08:37 103 115/51 09/22/19 08:00 98.2 103 19 115/51 (72) 93 09/22/19 04:00 98.4 104 20 114/68 (83) 95 09/22/19 00:00 98.4 89 21 98/50 (66) 95 09/21/19 21:00 Room Air 09/21/19 20:59 96 105/48 Intake and Output 09/22/19 09/23/19 19:00 07:00 Intake Total 957.5 ml 880 ml Output Total 150 ml 120 ml Balance 807.5 ml 760 ml Free Water 160 ml 100 ml IV Total 477.5 ml 300 ml Tube Feeding 320 ml 480 ml Output Urine Total 150 ml 120 ml # Bowel Movements 1 Labs Test 09/21/19 07:10 09/22/19 06:40 09/23/19 06:15 White Blood Count 12.2 K/UL (4.8-10.8) 14.1 K/UL (4.8-10.8) 13.4 K/UL (4.8-10.8) Red Blood Count 3.44 M/UL (4.20-5.40) 3.36 M/UL (4.20-5.40) 3.30 M/UL (4.20-5.40) Hemoglobin 10.1 G/DL (12.0-16.0) 9.8 G/DL (12.0-16.0) 9.9 G/DL (12.0-16.0) Hematocrit 30.5 % (37.0-47.0) 29.6 % (37.0-47.0) 29.2 % (37.0-47.0) Mean Corpuscular Volume 89 FL (80-99) 88 FL (80-99) 88 FL (80-99) Mean Corpuscular Hemoglobin 29.5 PG (27.0-31.0) 29.0 PG (27.0-31.0) 30.0 PG (27.0-31.0) Mean Corpuscular Hemoglobin Concent 33.1 G/DL (32.0-36.0) 33.0 G/DL (32.0-36.0) 33.9 G/DL (32.0-36.0) Red Cell Distribution Width 13.2 % (11.6-14.8) 13.4 % (11.6-14.8) 13.7 % (11.6-14.8) Platelet Count 277 K/UL (150-450) 300 K/UL (150-450) 330 K/UL (150-450) Mean Platelet Volume 6.9 FL (6.5-10.1) 6.8 FL (6.5-10.1) 6.5 FL (6.5-10.1) Neutrophils (%) (Auto) 62.5 % (45.0-75.0) % (45.0-75.0) 62.8 % (45.0-75.0) Lymphocytes (%) (Auto) 26.4 % (20.0-45.0) % (20.0-45.0) 25.4 % (20.0-45.0) Monocytes (%) (Auto) 7.6 % (1.0-10.0) % (1.0-10.0) 6.6 % (1.0-10.0) Eosinophils (%) (Auto) 3.0 % (0.0-3.0) % (0.0-3.0) 4.6 % (0.0-3.0) Basophils (%) (Auto) 0.5 % (0.0-2.0) % (0.0-2.0) 0.6 % (0.0-2.0) Sodium Level 139 MMOL/L (136-145) 140 MMOL/L (136-145) 139 MMOL/L (136-145) Potassium Level 3.9 MMOL/L (3.5-5.1) 3.8 MMOL/L (3.5-5.1) 3.7 MMOL/L (3.5-5.1) Chloride Level 103 MMOL/L (98-107) 102 MMOL/L (98-107) 102 MMOL/L (98-107) Carbon Dioxide Level 29 MMOL/L (21-32) 28 MMOL/L (21-32) 26 MMOL/L (21-32) Anion Gap 7 mmol/L (5-15) 10 mmol/L (5-15) 11 mmol/L (5-15) Blood Urea Nitrogen 49 mg/dL (7-18) 63 mg/dL (7-18) 72 mg/dL (7-18) Creatinine 3.1 MG/DL (0.55-1.30) 3.8 MG/DL (0.55-1.30) 4.5 MG/DL (0.55-1.30) Estimat Glomerular Filtration Rate 17.2 mL/min (>60) 13.6 mL/min (>60) 11.2 mL/min (>60) Glucose Level 134 MG/DL (74-106) 100 MG/DL (74-106) 127 MG/DL (74-106) Calcium Level 9.4 MG/DL (8.5-10.1) 9.4 MG/DL (8.5-10.1) 9.4 MG/DL (8.5-10.1) Phosphorus Level 2.6 MG/DL (2.5-4.9) 2.8 MG/DL (2.5-4.9) 2.9 MG/DL (2.5-4.9) Magnesium Level 2.3 MG/DL (1.8-2.4) 2.4 MG/DL (1.8-2.4) 2.3 MG/DL (1.8-2.4) Total Bilirubin 0.7 MG/DL (0.2-1.0) 0.6 MG/DL (0.2-1.0) Aspartate Amino Transf (AST/SGOT) 39 U/L (15-37) 30 U/L (15-37) Alanine Aminotransferase (ALT/SGPT) 33 U/L (12-78) 28 U/L (12-78) Alkaline Phosphatase 81 U/L (46-116) 75 U/L (46-116) Total Protein 6.6 G/DL (6.4-8.2) 6.5 G/DL (6.4-8.2) Albumin 2.9 G/DL (3.4-5.0) 2.6 G/DL (3.4-5.0) Globulin 3.7 g/dL 3.9 g/dL Albumin/Globulin Ratio 0.8 (1.0-2.7) 0.7 (1.0-2.7) Differential Total Cells Counted 100 Neutrophils % (Manual) 69 % (45-75) Lymphocytes % (Manual) 21 % (20-45) Monocytes % (Manual) 5 % (1-10) Eosinophils % (Manual) 5 % (0-3) Basophils % (Manual) 0 % (0-2) Band Neutrophils 0 % (0-8) Platelet Estimate Adequate Platelet Morphology Normal Polychromasia 1+ Hypochromasia 1+ Height (Feet): 5 Height (Inches): 6.00 Weight (Pounds): 117 Objective Physical Exam: Vitals: reviewed General: NAD, groans to pain stimuli HEENT: nc, at, gtf++ Neck: supple Chest: clear breath sounds bilaterally Cardiovascular: RRR, no s3, s4 Abdomen: soft, nontender, nd ++ peg Extremities: no cce, normal range of motion Neuro: confused, nonverbal Skin: other - pressure sores to right side : beena+ Bola Aldridge MD Sep 23, 2019 20:35
[2019-09-23] MEDS: Epoetin Alfa-EPBX(ESRD on dialysis)4000 units/ml vial SUBQ SCH (21:13)
--- NOTE | 2019-09-23 22:12 | Neurology Progress Note ---
Interim History Interim History ROS Limited/Unobtainable: Yes Interim History vernalizing more, incoherent Objective Physical Exam Last Vital Signs Date Time Temp Pulse Resp B/P (MAP) Pulse Ox O2 Delivery O2 Flow Rate FiO2 09/23/19 21:00 93 113/51 09/23/19 21:00 Room Air 09/23/19 20:00 98.1 24 96 Laboratory Tests Test 09/23/19 06:15 White Blood Count 13.4 K/UL (4.8-10.8) H Red Blood Count 3.30 M/UL (4.20-5.40) L Hemoglobin 9.9 G/DL (12.0-16.0) L Hematocrit 29.2 % (37.0-47.0) L Mean Corpuscular Volume 88 FL (80-99) Mean Corpuscular Hemoglobin 30.0 PG (27.0-31.0) Mean Corpuscular Hemoglobin Concent 33.9 G/DL (32.0-36.0) Red Cell Distribution Width 13.7 % (11.6-14.8) Platelet Count 330 K/UL (150-450) Mean Platelet Volume 6.5 FL (6.5-10.1) Neutrophils (%) (Auto) 62.8 % (45.0-75.0) Lymphocytes (%) (Auto) 25.4 % (20.0-45.0) Monocytes (%) (Auto) 6.6 % (1.0-10.0) Eosinophils (%) (Auto) 4.6 % (0.0-3.0) H Basophils (%) (Auto) 0.6 % (0.0-2.0) Sodium Level 139 MMOL/L (136-145) Potassium Level 3.7 MMOL/L (3.5-5.1) Chloride Level 102 MMOL/L (98-107) Carbon Dioxide Level 26 MMOL/L (21-32) Anion Gap 11 mmol/L (5-15) Blood Urea Nitrogen 72 mg/dL (7-18) H Creatinine 4.5 MG/DL (0.55-1.30) H Estimat Glomerular Filtration Rate 11.2 mL/min (>60) Glucose Level 127 MG/DL (74-106) H Calcium Level 9.4 MG/DL (8.5-10.1) Phosphorus Level 2.9 MG/DL (2.5-4.9) Magnesium Level 2.3 MG/DL (1.8-2.4) Head: normocophalic Neck: no rigidity Neurologic Exam Objective somnolent, non verbal not following withdraws to pain Impression/Recommendations Problems: (1) COVID-19 ruled out (2) UTI (urinary tract infection) (3) Acute anemia (4) Suspected COVID-19 virus infection (5) Anemia (6) Sepsis (7) Chronic kidney failure (8) Bacteremia due to Pseudomonas (9) Decubitus skin ulcer (10) Fever (11) Rhabdomyolysis (12) Elevated troponin (13) KAREN (acute kidney injury) (14) Elevated brain natriuretic peptide (BNP) level (15) ESRD (end stage renal disease) on dialysis (16) Pressure ulcer (17) Protein calorie malnutrition (18) Dysphagia Diagnostic Impression Acute on chronic encephalopathy, metabolic, sepsis ESRD on HD Sepsis 2/2 Klebsiella UTI and VRE Bacteremia--> course complete w/ meropenem and vancomycin on 09/17 Dementia, Peg tube dependent, Functional Quadriplegia and associated associated pressure ulcers Pancreatic lesion; evaluated by Sushil Madison MD Sep 23, 2019 22:11
[2019-09-24 00:27] VITALS: BP 142/67
[2019-09-24] MEDS: Morphine Sulfate 2mg/ml Inj(IV/IM USE ONLY) IVP PRN (02:35)
[2019-09-24 04:00] VITALS: BP 134/76
[2019-09-24 07:44] LABS: BASOPHILS % (AUTO) 0.6 % (0.0-2.0); EOSINOPHILS % (AUTO) 3.7 % (0.0-3.0); HEMATOCRIT 29.5 % (37.0-47.0); HEMOGLOBIN 9.9 G/DL (12.0-16.0); LYMPHOCYTES % (AUTO) 25.8 % (20.0-45.0); MEAN CORPUSCULAR VOLUME 89 FL (80-99); MONOCYTES % (AUTO) 5.1 % (1.0-10.0); NEUTROPHILS % (AUTO) 64.7 % (45.0-75.0); PLATELET COUNT 311 K/UL (150-450); RED BLOOD COUNT 3.31 M/UL (4.20-5.40); RED CELL DISTRIBUTION WIDTH 13.7 % (11.6-14.8); WHITE BLOOD COUNT 13.3 K/UL (4.8-10.8)
[2019-09-24 08:00] VITALS: BP 130/81
[2019-09-24 08:01] LABS: ALANINE AMINOTRANSFERASE 27 U/L (12-78); ALBUMIN 3.1 G/DL (3.4-5.0); ALBUMIN/GLOBULIN RATIO 0.8 (1.0-2.7); ALKALINE PHOSPHATASE 77 U/L (46-116); ANION GAP 10 mmol/L (5-15); ASPARTATE AMINO TRANSFERASE 28 U/L (15-37); BILIRUBIN,TOTAL 0.5 MG/DL (0.2-1.0); BLOOD UREA NITROGEN 33 mg/dL (7-18); CARBON DIOXIDE 25 MMOL/L (21-32); CHLORIDE 102 MMOL/L (98-107); CREATININE 2.7 MG/DL (0.55-1.30); POTASSIUM 3.8 MMOL/L (3.5-5.1); SODIUM 137 MMOL/L (136-145)
[2019-09-24] MEDS: Heparin 5000 units/ml inj SUBQ SCH (08:57)
[2019-09-24] MEDS: Carvedilol 6.25mg Tab GT SCH (09:27)
--- NOTE | 2019-09-24 09:57 | Nephrology Progress Note ---
Assessment/Plan Plan #ESRD on HD TTHS- #anemia of CKD #UTI #dysphagia s/p PEG #multiple pressure wounds #HTN -HD tomorrow - hemoglobin stable - STRICT I&Os - daily weights - replete lytes - prbc transfusion for hemoglobin < 7 - Epo k TIW - IV iron - monitor CBC - on meropenem,flucon - continue coreg 6.25mg BID - replete phos - monitor mag, phos and BMP daily Time spent 45 min > 50% on care coordination and counseling Subjective ROS Limited/Unobtainable: Yes Subjective HD yesterday with 1.5L UF WBC remains elevated but stable afebrile overnight hemoglobin stable Objective Objective Last 24 Hour Vital Signs Date Time Temp Pulse Resp B/P (MAP) Pulse Ox O2 Delivery O2 Flow Rate FiO2 09/24/19 09:27 92 130/81 09/24/19 08:00 98.4 92 23 130/81 (97) 97 09/24/19 04:00 98.1 95 24 134/76 (95) 95 09/24/19 03:05 98.1 09/24/19 00:27 98.1 92 24 142/67 (92) 97 09/23/19 21:00 93 113/51 09/23/19 21:00 Room Air 09/23/19 20:00 98.1 93 24 113/51 (71) 96 09/23/19 16:00 98.2 111 26 135/73 (93) 93 09/23/19 14:00 98.1 91 26 123/77 (92) 93 09/23/19 12:00 98.1 91 26 123/77 (92) 93 Intake and Output 09/23/19 09/24/19 19:00 07:00 Intake Total 580 ml 920 ml Output Total 100 ml 1500 ml Balance 480 ml -580 ml Free Water 150 ml 100 ml IV Total 150 ml 300 ml Tube Feeding 280 ml 520 ml Output Urine Total 100 ml Hemodialysis UF 1500 ml Laboratory Tests 09/24/19 07:05: White Blood Count 13.3H, Red Blood Count 3.31L, Hemoglobin 9.9L, Hematocrit 29.5L, Mean Corpuscular Volume 89, Mean Corpuscular Hemoglobin 29.8, Mean Corpuscular Hemoglobin Concent 33.5, Red Cell Distribution Width 13.7, Platelet Count 311, Mean Platelet Volume 6.7, Neutrophils (%) (Auto) 64.7, Lymphocytes (% ) (Auto) 25.8, Monocytes (%) (Auto) 5.1, Eosinophils (%) (Auto) 3.7H, Basophils (%) (Auto) 0.6, Sodium Level 137, Potassium Level 3.8, Chloride Level 102, Carbon Dioxide Level 25, Anion Gap 10, Blood Urea Nitrogen 33H, Creatinine 2.7H , Estimat Glomerular Filtration Rate 20.1, Glucose Level 118H, Calcium Level 10.0, Total Bilirubin 0.5, Aspartate Amino Transf (AST/SGOT) 28, Alanine Aminotransferase (ALT/SGPT) 27, Alkaline Phosphatase 77, Total Protein 7.0, Albumin 3.1L, Globulin 3.9, Albumin/Globulin Ratio 0.8L Height (Feet): 5 Height (Inches): 6.00 Weight (Pounds): 117 Objective General Appearance: confused, cachetic, thin Lines, tubes and drains: peripheral HEENT: normocephalic, atraumatic Respiratory/Chest: chest wall non-tender, no respiratory distress Cardiovascular/Chest: normal peripheral pulses Abdomen: feeding tube Extremities: non-pitting, no cyanosis, other - unable to move extremities. Skin Exam: other - pressure ulcers Rory Oconnor M.D. Sep 24, 2019 09:57
--- NOTE | 2019-09-24 11:02 | Pulmonology Progress Note ---
Subjective ROS Limited/Unobtainable: Yes Interval Events: None new Constitutional: Reports: fatigue, other - agitated ; Denies: fever Gastrointestinal/Abdominal: Denies: nausea, vomiting, diarrhea Psychiatric: Reports: other - NA Skin: Reports: other - wounds - covered ; Denies: rash Musculoskeletal: Denies: pain Allergies: Coded Allergies: No Known Allergies (Unverified , 06/24/19) All Systems: reviewed and negative except above - All 12 point ROS negative Objective Last 24 Hour Vital Signs Date Time Temp Pulse Resp B/P (MAP) Pulse Ox O2 Delivery O2 Flow Rate FiO2 09/24/19 09:27 92 130/81 09/24/19 09:00 Room Air 09/24/19 08:00 98.4 92 23 130/81 (97) 97 09/24/19 04:00 98.1 95 24 134/76 (95) 95 09/24/19 03:05 98.1 09/24/19 00:27 98.1 92 24 142/67 (92) 97 09/23/19 21:00 93 113/51 09/23/19 21:00 Room Air 09/23/19 20:00 98.1 93 24 113/51 (71) 96 09/23/19 16:00 98.2 111 26 135/73 (93) 93 09/23/19 14:00 98.1 91 26 123/77 (92) 93 09/23/19 12:00 98.1 91 26 123/77 (92) 93 Intake and Output 09/23/19 09/24/19 18:59 06:59 Intake Total 580 ml 920 ml Output Total 100 ml 1500 ml Balance 480 ml -580 ml Free Water 150 ml 100 ml IV Total 150 ml 300 ml Tube Feeding 280 ml 520 ml Output Urine Total 100 ml Hemodialysis UF 1500 ml General Appearance: no acute distress HEENT: normocephalic Respiratory: chest wall non-tender, lungs clear Cardiovascular: normal peripheral pulses, normal rate Abdomen: normal bowel sounds Laboratory Tests 09/24/19 07:05: White Blood Count 13.3H, Red Blood Count 3.31L, Hemoglobin 9.9L, Hematocrit 29.5L, Mean Corpuscular Volume 89, Mean Corpuscular Hemoglobin 29.8, Mean Corpuscular Hemoglobin Concent 33.5, Red Cell Distribution Width 13.7, Platelet Count 311, Mean Platelet Volume 6.7, Neutrophils (%) (Auto) 64.7, Lymphocytes (% ) (Auto) 25.8, Monocytes (%) (Auto) 5.1, Eosinophils (%) (Auto) 3.7H, Basophils (%) (Auto) 0.6, Sodium Level 137, Potassium Level 3.8, Chloride Level 102, Carbon Dioxide Level 25, Anion Gap 10, Blood Urea Nitrogen 33H, Creatinine 2.7H , Estimat Glomerular Filtration Rate 20.1, Glucose Level 118H, Calcium Level 10.0, Total Bilirubin 0.5, Aspartate Amino Transf (AST/SGOT) 28, Alanine Aminotransferase (ALT/SGPT) 27, Alkaline Phosphatase 77, Total Protein 7.0, Albumin 3.1L, Globulin 3.9, Albumin/Globulin Ratio 0.8L Current Medications Medications (Trade) Dose Ordered Sig/Joan Route PRN Reason Start Time Stop Time Status Last Admin Dose Admin Acetaminophen (Tylenol) 650 mg Q4H PRN GT Mild Pain (Pain Scale 1-3) 09/18/19 19:30 10/08/19 19:29 09/20/19 13:14 Atorvastatin Calcium (Lipitor) 10 mg BEDTIME GT 09/18/19 21:00 12/07/19 20:59 09/23/19 21:13 Carvedilol (Coreg) 6.25 mg EVERY 12 HOURS GT 09/18/19 21:00 10/08/19 08:59 09/24/19 09:27 Epoetin Dion (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)) 4,000 unit MON-MON-MON SUBQ 09/18/19 21:00 12/17/19 20:59 09/23/19 21:13 Fluconazole/ Sodium Chloride 100 ml @ 100 mls/hr Q24H IV 09/22/19 14:00 09/29/19 13:59 09/23/19 14:09 Gabapentin (Neurontin) 300 mg THREE TIMES A DAY GT 09/19/19 09:00 10/19/19 08:59 09/24/19 08:56 Heparin Sodium (Porcine) (Heparin 5000 units/ml) 5,000 units EVERY 12 HOURS SUBQ 09/18/19 21:00 11/01/19 15:42 09/24/19 08:57 Linezolid 300 ml @ 300 mls/hr EVERY 12 HOURS IVPB 5/30/20 21:00 09/28/19 20:59 09/24/19 08:57 Loperamide HCl (Imodium) 2 mg Q6H PRN GT Diarrhea 09/18/19 19:30 10/13/19 19:29 09/22/19 18:02 Meropenem 500 mg/ Sodium Chloride 50 ml @ 100 mls/hr Q24HRS IVPB 09/22/19 14:00 09/27/19 13:59 09/23/19 14:10 Morphine Sulfate (Morphine Sulfate) 1 mg Q4H PRN IVP For Pain 09/22/19 14:00 09/29/19 13:59 09/24/19 02:35 Assessment/Plan Assessment/Plan IMPRESSION: 1. UTI. 2. Anemia. 3. ESRD, on dialysis. 4. Initial COVID-19 negative. DISCUSSION: Continue current medications and care. Initial COVID-19 pcr negative Blood transfusion. Empiric antibiotics. Hemodialysis. Saturating well on RA I will follow carefully. Ross Nina Omar Syed MD Sep 24, 2019 11:02
[2019-09-24 12:00] VITALS: BP 128/61
--- NOTE | 2019-09-24 12:04 | General Progress Note ---
Assessment/Plan Assessment/Plan: Assessment/Plan Status: stable Assessment/Plan: 1. End-stage renal disease, on hemodialysis. 2. Anemia iron def 3. Dysphagia, status post G-tube placement. 4. Pneumonia. 5. Pancreatic cyst. 6. Hypertension. 7. elevated CEA of 10 8. CAD 9. UTI chart from prior admissions reviewed iv iron repeat stool ob>> neg transfuse to keep HGB above 7 GTF 40 cc HD per nephrology will fu Subjective ROS Limited/Unobtainable: No Allergies: Coded Allergies: No Known Allergies (Unverified , 06/24/19) Objective Last 24 Hour Vital Signs Date Time Temp Pulse Resp B/P (MAP) Pulse Ox O2 Delivery O2 Flow Rate FiO2 09/24/19 09:27 92 130/81 09/24/19 09:00 Room Air 09/24/19 08:00 98.4 92 23 130/81 (97) 97 09/24/19 04:00 98.1 95 24 134/76 (95) 95 09/24/19 03:05 98.1 09/24/19 00:27 98.1 92 24 142/67 (92) 97 09/23/19 21:00 93 113/51 09/23/19 21:00 Room Air 09/23/19 20:00 98.1 93 24 113/51 (71) 96 09/23/19 16:00 98.2 111 26 135/73 (93) 93 09/23/19 14:00 98.1 91 26 123/77 (92) 93 Intake and Output 09/23/19 09/24/19 19:00 07:00 Intake Total 580 ml 920 ml Output Total 100 ml 1500 ml Balance 480 ml -580 ml Free Water 150 ml 100 ml IV Total 150 ml 300 ml Tube Feeding 280 ml 520 ml Output Urine Total 100 ml Hemodialysis UF 1500 ml Laboratory Tests 09/24/19 07:05: White Blood Count 13.3H, Red Blood Count 3.31L, Hemoglobin 9.9L, Hematocrit 29.5L, Mean Corpuscular Volume 89, Mean Corpuscular Hemoglobin 29.8, Mean Corpuscular Hemoglobin Concent 33.5, Red Cell Distribution Width 13.7, Platelet Count 311, Mean Platelet Volume 6.7, Neutrophils (%) (Auto) 64.7, Lymphocytes (% ) (Auto) 25.8, Monocytes (%) (Auto) 5.1, Eosinophils (%) (Auto) 3.7H, Basophils (%) (Auto) 0.6, Sodium Level 137, Potassium Level 3.8, Chloride Level 102, Carbon Dioxide Level 25, Anion Gap 10, Blood Urea Nitrogen 33H, Creatinine 2.7H , Estimat Glomerular Filtration Rate 20.1, Glucose Level 118H, Calcium Level 10.0, Total Bilirubin 0.5, Aspartate Amino Transf (AST/SGOT) 28, Alanine Aminotransferase (ALT/SGPT) 27, Alkaline Phosphatase 77, Total Protein 7.0, Albumin 3.1L, Globulin 3.9, Albumin/Globulin Ratio 0.8L Height (Feet): 5 Height (Inches): 6.00 Weight (Pounds): 117 General Appearance: lethargic EENT: normal ENT inspection Neck: supple Cardiovascular: normal rate Respiratory/Chest: decreased breath sounds Abdomen: normal bowel sounds, non tender, soft Extremities: non-tender Jun Mena MD Sep 24, 2019 12:04
--- NOTE | 2019-09-24 12:33 | Hematology/Onc Progress Note ---
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 Otherwise unremarkable pancreas --> as per gi, may need further eval with endsocopy --> with pancreatitis at this time, may be obscuring picture --> reimage in short order, 6 months --> ca19.9 60 but may be elevated due to pancreatitis --> cea of 10--> --> monitor lfts daily # Anemia of chronic disease due to underlying chronic medical issues, multifactorial v Gi bleed --> Anemia workup has been reviewed, ferritin 1300 -->1800 --> No evidence of hemolysis is noted, peripheral smear has been reviewed. --> Hgb goal >7. Transfuse prn. --> Epogen has been started --> IV IRON completed --> Medications have been reviewed --> hgb 6-->7.1-->12-->11.2-->11.6 -->11.9->9.2->9.9 --> 09/07 stool ob negative --> rbc: 2 units 09/10/2019, --> bone marrow biopsy is not indicated given the other more likely causes # Leukocytosis/elevated white blood cell count, unspecified likely related to underlying stress reaction, smoking v more likely infection in this case, uti now --> have reviewed peripheral smear and bandemia/neutrophilia noted --> monitor for resolution --> as per id care, on broad spectrum abx --> wbc 14-->12-->9-->14.9-->12->14-->12 --> per id recs, on: cftx-->bethany/vanc-->zosyn/vanc-->linezolid/zosyn /bethany->bethany /fucon --> blood cx++ x2 --> 09/19 urine cx++ --> 09/20 cxr: Similar diffuse interstitial opacities may represent chronic interstitial lung changes versus pulmonary vasculature congestion versus infectious/inflammatory process # Thrombocytopenia - potential causes multifactorial, evaluate liver and viral etiologies to begin, in this case due to sepsisand pancreatitis --> Hep panel and HIV are both negative --> US abd to evaluate for cirrhosis and hsm --> pleural effusions noted, hsm is neg --> Peripheral smear ordered to evaluate for blasts /schistocytes --> abx and other meds have been reviewed --> ok for ppx if plt >50k w/ either heparin or lovenox # 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 Greatly appreciate consultation. Subjective Constitutional: Denies: no symptoms, chills, fever, malaise, weakness, other Cardiovascular: Denies: no symptoms, chest pain, edema, irregular heart rate, lightheadedness, palpitations, syncope, other Respiratory: Denies: no symptoms, cough, shortness of breath, SOB with excertion, SOB at rest, sputum, wheezing, other Genitourinary: Denies: no symptoms, burning, discharge, frequency, flank pain, hematuria, incontinence, pain, urgency, other Neurologic/Psychiatric: Denies: no symptoms, anxiety, depressed, emotional problems, headache, numbness, paresthesia, pre-existing deficit, seizure, tingling, tremors, weakness, other Hematologic/Lymphatic: Denies: no symptoms, anemia, easy bleeding, easy bruising, adenopathy, other Allergies: Coded Allergies: No Known Allergies (Unverified , 06/24/19) Subjective 09/09 obtunded, on tele, labs pending, stool ob negative, iv abx 09/10 s/p 2 units rbc, hgb improved to 12, on iv iron, hep b neg. 09/11 hd for today, h/h stable, no acute distress 09/12 nonverbal, no overnight events, bethany/vanc 09/13 le vishal duplex bilat negative, clood cx++ x2, no distress 09/14 labs noted, no bleeding, no night sweats, meds reviewed 09/15 hd as per renal, labs noted, no bleeding, no fc wbc 12k 09/16 cotninue on iv iron, labs noted, hgb relatively stable 09/19 for hd today, seenby renal, labs noted, no bleeding 09/20 urine cx+, today's labs pending, room air 09/21 no acute events, cxr reviewed, iv abx, gtf 09/22 remains on broad spectrum abx, labs noted, on gtf 09/23 remains critically ill, no bleeding, meds noted, hgb 9.9 Objective Objective Current Medications Medications (Trade) Dose Ordered Sig/Joan Route PRN Reason Start Time Stop Time Status Last Admin Dose Admin Acetaminophen (Tylenol) 650 mg Q4H PRN GT Mild Pain (Pain Scale 1-3) 09/18/19 19:30 10/08/19 19:29 09/20/19 13:14 Atorvastatin Calcium (Lipitor) 10 mg BEDTIME GT 09/18/19 21:00 12/07/19 20:59 09/23/19 21:13 Carvedilol (Coreg) 6.25 mg EVERY 12 HOURS GT 09/18/19 21:00 10/08/19 08:59 09/24/19 09:27 Epoetin Dion (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)) 4,000 unit MON-MON-MON SUBQ 09/18/19 21:00 12/17/19 20:59 09/23/19 21:13 Fluconazole/ Sodium Chloride 100 ml @ 100 mls/hr Q24H IV 09/22/19 14:00 09/29/19 13:59 09/23/19 14:09 Gabapentin (Neurontin) 300 mg THREE TIMES A DAY GT 09/19/19 09:00 10/19/19 08:59 09/24/19 08:56 Heparin Sodium (Porcine) (Heparin 5000 units/ml) 5,000 units EVERY 12 HOURS SUBQ 09/18/19 21:00 11/01/19 15:42 09/24/19 08:57 Linezolid 300 ml @ 300 mls/hr EVERY 12 HOURS IVPB 09/21/19 21:00 09/28/19 20:59 09/24/19 08:57 Loperamide HCl (Imodium) 2 mg Q6H PRN GT Diarrhea 09/18/19 19:30 10/13/19 19:29 09/22/19 18:02 Meropenem 500 mg/ Sodium Chloride 50 ml @ 100 mls/hr Q24HRS IVPB 09/22/19 14:00 09/27/19 13:59 09/23/19 14:10 Morphine Sulfate (Morphine Sulfate) 1 mg Q4H PRN IVP For Pain 09/22/19 14:00 09/29/19 13:59 09/24/19 02:35 Last 24 Hour Vital Signs Date Time Temp Pulse Resp B/P (MAP) Pulse Ox O2 Delivery O2 Flow Rate FiO2 09/24/19 09:27 92 130/81 09/24/19 09:00 Room Air 09/24/19 08:00 98.4 92 23 130/81 (97) 97 09/24/19 04:00 98.1 95 24 134/76 (95) 95 09/24/19 03:05 98.1 09/24/19 00:27 98.1 92 24 142/67 (92) 97 09/23/19 21:00 93 113/51 09/23/19 21:00 Room Air 09/23/19 20:00 98.1 93 24 113/51 (71) 96 09/23/19 16:00 98.2 111 26 135/73 (93) 93 09/23/19 14:00 98.1 91 26 123/77 (92) 93 09/23/19 12:00 98.1 91 26 123/77 (92) 93 09/23/19 09:53 102 143/70 09/23/19 09:00 Room Air 09/23/19 08:00 98.2 102 26 143/70 (94) 94 09/23/19 04:09 98.0 90 18 116/72 (87) 94 09/22/19 20:58 Room Air 09/22/19 20:42 98 118/62 09/22/19 20:34 97.8 98 18 118/62 (80) 94 09/22/19 16:00 98.2 104 19 122/53 (76) 93 Intake and Output 09/23/19 09/24/19 18:59 06:59 Intake Total 580 ml 920 ml Output Total 100 ml 1500 ml Balance 480 ml -580 ml Free Water 150 ml 100 ml IV Total 150 ml 300 ml Tube Feeding 280 ml 520 ml Output Urine Total 100 ml Hemodialysis UF 1500 ml Labs Test 09/22/19 06:40 6/1/20 06:15 09/24/19 07:05 White Blood Count 14.1 K/UL (4.8-10.8) 13.4 K/UL (4.8-10.8) 13.3 K/UL (4.8-10.8) Red Blood Count 3.36 M/UL (4.20-5.40) 3.30 M/UL (4.20-5.40) 3.31 M/UL (4.20-5.40) Hemoglobin 9.8 G/DL (12.0-16.0) 9.9 G/DL (12.0-16.0) 9.9 G/DL (12.0-16.0) Hematocrit 29.6 % (37.0-47.0) 29.2 % (37.0-47.0) 29.5 % (37.0-47.0) Mean Corpuscular Volume 88 FL (80-99) 88 FL (80-99) 89 FL (80-99) Mean Corpuscular Hemoglobin 29.0 PG (27.0-31.0) 30.0 PG (27.0-31.0) 29.8 PG (27.0-31.0) Mean Corpuscular Hemoglobin Concent 33.0 G/DL (32.0-36.0) 33.9 G/DL (32.0-36.0) 33.5 G/DL (32.0-36.0) Red Cell Distribution Width 13.4 % (11.6-14.8) 13.7 % (11.6-14.8) 13.7 % (11.6-14.8) Platelet Count 300 K/UL (150-450) 330 K/UL (150-450) 311 K/UL (150-450) Mean Platelet Volume 6.8 FL (6.5-10.1) 6.5 FL (6.5-10.1) 6.7 FL (6.5-10.1) Neutrophils (%) (Auto) % (45.0-75.0) 62.8 % (45.0-75.0) 64.7 % (45.0-75.0) Lymphocytes (%) (Auto) % (20.0-45.0) 25.4 % (20.0-45.0) 25.8 % (20.0-45.0) Monocytes (%) (Auto) % (1.0-10.0) 6.6 % (1.0-10.0) 5.1 % (1.0-10.0) Eosinophils (%) (Auto) % (0.0-3.0) 4.6 % (0.0-3.0) 3.7 % (0.0-3.0) Basophils (%) (Auto) % (0.0-2.0) 0.6 % (0.0-2.0) 0.6 % (0.0-2.0) Differential Total Cells Counted 100 Neutrophils % (Manual) 69 % (45-75) Lymphocytes % (Manual) 21 % (20-45) Monocytes % (Manual) 5 % (1-10) Eosinophils % (Manual) 5 % (0-3) Basophils % (Manual) 0 % (0-2) Band Neutrophils 0 % (0-8) Platelet Estimate Adequate Platelet Morphology Normal Polychromasia 1+ Hypochromasia 1+ Sodium Level 140 MMOL/L (136-145) 139 MMOL/L (136-145) 137 MMOL/L (136-145) Potassium Level 3.8 MMOL/L (3.5-5.1) 3.7 MMOL/L (3.5-5.1) 3.8 MMOL/L (3.5-5.1) Chloride Level 102 MMOL/L (98-107) 102 MMOL/L (98-107) 102 MMOL/L (98-107) Carbon Dioxide Level 28 MMOL/L (21-32) 26 MMOL/L (21-32) 25 MMOL/L (21-32) Anion Gap 10 mmol/L (5-15) 11 mmol/L (5-15) 10 mmol/L (5-15) Blood Urea Nitrogen 63 mg/dL (7-18) 72 mg/dL (7-18) 33 mg/dL (7-18) Creatinine 3.8 MG/DL (0.55-1.30) 4.5 MG/DL (0.55-1.30) 2.7 MG/DL (0.55-1.30) Estimat Glomerular Filtration Rate 13.6 mL/min (>60) 11.2 mL/min (>60) 20.1 mL/min (>60) Glucose Level 100 MG/DL (74-106) 127 MG/DL (74-106) 118 MG/DL (74-106) Calcium Level 9.4 MG/DL (8.5-10.1) 9.4 MG/DL (8.5-10.1) 10.0 MG/DL (8.5-10.1) Phosphorus Level 2.8 MG/DL (2.5-4.9) 2.9 MG/DL (2.5-4.9) Magnesium Level 2.4 MG/DL (1.8-2.4) 2.3 MG/DL (1.8-2.4) Total Bilirubin 0.6 MG/DL (0.2-1.0) 0.5 MG/DL (0.2-1.0) Aspartate Amino Transf (AST/SGOT) 30 U/L (15-37) 28 U/L (15-37) Alanine Aminotransferase (ALT/SGPT) 28 U/L (12-78) 27 U/L (12-78) Alkaline Phosphatase 75 U/L (46-116) 77 U/L (46-116) Total Protein 6.5 G/DL (6.4-8.2) 7.0 G/DL (6.4-8.2) Albumin 2.6 G/DL (3.4-5.0) 3.1 G/DL (3.4-5.0) Globulin 3.9 g/dL 3.9 g/dL Albumin/Globulin Ratio 0.7 (1.0-2.7) 0.8 (1.0-2.7) Height (Feet): 5 Height (Inches): 6.00 Weight (Pounds): 117 Objective Physical Exam: Vitals: reviewed General: NAD, groans to pain stimuli HEENT: nc, at, gtf++ Neck: supple Chest: clear breath sounds bilaterally Cardiovascular: RRR, no s3, s4 Abdomen: soft, nontender, nd ++ peg Extremities: no cce, normal range of motion Neuro: confused, nonverbal Skin: other - pressure sores to right side : beena+ Bola Aldridge MD Sep 24, 2019 12:33
--- NOTE | 2019-09-24 12:46 | Surgery Progress Note ---
Surgery Progress Note Subjective Additional Comments leukocytosis exam stable h/h stable comfortable Objective Last 24 Hour Vital Signs Date Time Temp Pulse Resp B/P (MAP) Pulse Ox O2 Delivery O2 Flow Rate FiO2 09/24/19 12:00 98.2 105 18 128/61 (83) 92 09/24/19 09:27 92 130/81 09/24/19 09:00 Room Air 09/24/19 08:00 98.4 92 23 130/81 (97) 97 09/24/19 04:00 98.1 95 24 134/76 (95) 95 09/24/19 03:05 98.1 09/24/19 00:27 98.1 92 24 142/67 (92) 97 09/23/19 21:00 93 113/51 09/23/19 21:00 Room Air 09/23/19 20:00 98.1 93 24 113/51 (71) 96 09/23/19 16:00 98.2 111 26 135/73 (93) 93 09/23/19 14:00 98.1 91 26 123/77 (92) 93 I&O Intake and Output 09/23/19 09/24/19 18:59 06:59 Intake Total 580 ml 920 ml Output Total 100 ml 1500 ml Balance 480 ml -580 ml Free Water 150 ml 100 ml IV Total 150 ml 300 ml Tube Feeding 280 ml 520 ml Output Urine Total 100 ml Hemodialysis UF 1500 ml Dressing: other Wound: other Drains: other Cardiovascular: RSR Respiratory: decreased breath sounds Abdomen: soft, non-tender, present bowel sounds Extremities: no cyanosis Laboratory Tests Test 09/24/19 07:05 White Blood Count 13.3 K/UL (4.8-10.8) H Red Blood Count 3.31 M/UL (4.20-5.40) L Hemoglobin 9.9 G/DL (12.0-16.0) L Hematocrit 29.5 % (37.0-47.0) L Mean Corpuscular Volume 89 FL (80-99) Mean Corpuscular Hemoglobin 29.8 PG (27.0-31.0) Mean Corpuscular Hemoglobin Concent 33.5 G/DL (32.0-36.0) Red Cell Distribution Width 13.7 % (11.6-14.8) Platelet Count 311 K/UL (150-450) Mean Platelet Volume 6.7 FL (6.5-10.1) Neutrophils (%) (Auto) 64.7 % (45.0-75.0) Lymphocytes (%) (Auto) 25.8 % (20.0-45.0) Monocytes (%) (Auto) 5.1 % (1.0-10.0) Eosinophils (%) (Auto) 3.7 % (0.0-3.0) H Basophils (%) (Auto) 0.6 % (0.0-2.0) Sodium Level 137 MMOL/L (136-145) Potassium Level 3.8 MMOL/L (3.5-5.1) Chloride Level 102 MMOL/L (98-107) Carbon Dioxide Level 25 MMOL/L (21-32) Anion Gap 10 mmol/L (5-15) Blood Urea Nitrogen 33 mg/dL (7-18) H Creatinine 2.7 MG/DL (0.55-1.30) H Estimat Glomerular Filtration Rate 20.1 mL/min (>60) Glucose Level 118 MG/DL (74-106) H Calcium Level 10.0 MG/DL (8.5-10.1) Total Bilirubin 0.5 MG/DL (0.2-1.0) Aspartate Amino Transf (AST/SGOT) 28 U/L (15-37) Alanine Aminotransferase (ALT/SGPT) 27 U/L (12-78) Alkaline Phosphatase 77 U/L (46-116) Total Protein 7.0 G/DL (6.4-8.2) Albumin 3.1 G/DL (3.4-5.0) L Globulin 3.9 g/dL Albumin/Globulin Ratio 0.8 (1.0-2.7) L Plan Problems: (1) COVID-19 ruled out Assessment & Plan: FINDINGS: Lungs: Left basilar opacity with volume loss, likely atelectasis however a focus of infection could have a similar appearance. Pleural space: No pleural effusion. No pneumothorax. Heart: Unremarkable. No cardiomegaly. Bones/joints: No fracture. Vasculature: Atherosclerotic calcifications. Tubes, lines and devices: Right IJ large bore dialysis catheter terminates within the right atrium. IMPRESSION: Left basilar opacity with volume loss, likely atelectasis however a focus of infection could have a similar appearance. leukocytosis anemia pending test (2) Protein calorie malnutrition Assessment & Plan: DAILY ESTIMATED NEEDS: Needs based on Wounds, HD 57kg 30-35 kcals/kg [id number] total kcals 1.25-1.8 g protein/kg 71-103 g total protein Fluids per MD mL/kg . total fluid mLs NUTRITION DIAGNOSIS: * Increased kcal and prot needs r/t wound healing and renal failure as evidenced by w/ multiple pressure injuries, including full thickness and unstageable wounds, refer to MD reports, pt w/ ESRD on HD, GT dep. CURRENT TF:Nepro @ 40ml/hr x 20 hrs ENTERAL NUTRITION RECOMMENDATIONS: Nepro @ 45ml/hr x 22 hrs to provide 990ml, 1782kcal, 80g prot, 720ml free water - Rec to INCREASE RATE AND RUNNING TIME ABOVE to better meet est kcal and pro needs - HOB over 30 degrees/ water flush per MD ADDITIONAL RECOMMENDATIONS: 1) Calibrated bedscale wt 2) Wound Care: add Nephrovite x 1 add Saw 1ptk BID via GT 3) Monitor BGs, consider NISS: BGs consistently mildly elevated 4) Monitor lytes and renal fxn (3) Pressure ulcer (4) Decubitus skin ulcer Assessment & Plan: Pt presented on admission with multiple Pressure injuries. Full thickness Pressure Injury R shoulder(L)2.8cm x (W)2cm. Base of wound is 75 % slough, 25% beefy red granulation. Slough removed with gentle friction. Post removal of slough,small amt slough at base of wound. Small amt sanguineous exudate. Edges flat and adherent to base of wound. Periwound without erythema, induration or fluctuance. Darker skin tone without induration ,fluctuance or tenderness at sacrococcygeal area. Non-blanching erythema and scattered areas of hyperpigmentation noted to R and L gluteal cheeks. Pt denied tenderness when affected areas palpated. Full thickness Pressure injury R hip (L)5.5cm x (W)10.2cm x (D)2.6cm. Base of wound is 75% pink granulation,25% Loose fibrinous slough. Bone is palpable.Edges flat ,pink and adherent to base of wound. Small amt. non-odorous serous exudate. Hypopigmentation noted to perineum and labia majora. Unstageable Pressure Injury R heel(L)3.5cm x (W)3.3cm . Base of wound is 100% necrotic with semidetached with surrounding yellow slough. Edges area dry, black. Periwound is non-blanchable and fluctuant. Maroon discoloration with fluctuance noted to distal/lateral R foot (L)2.8cm x ( W)2.5cm. Resolving pressure injury R Hallux(L)3.5cm x (W)3.3cm.[place] epithelial at base of wound with surrounding dry brown borders. L heel is boggy with non-blanching erythema.Historical scarring from previous wounds noted. Unstageable Pressure Injury L hallux(L)3.5cm x (W)2.8cm. Base of wound has 90% loose necrotic cap,surrounding slough. Loose necrotic cap easily removed with saline moistened gauze. At base of wound is 100% yellow slough, marginal erythema with small area of necrosis noted along borders. Small amt seropurulent non-odorous exudate noted. Stable dry necrosis at L st metatarsal head. Tx.Plan: Cleanse wound R shoulder with Saline. Apply Therahoney. Apply Cavilon Skin Barrier periwound. Cover with Optifoam drsg. Change every 3 days and prn. Cleanse R hip with Saline. Loosely pack with Therahoney impregnated Kerlix. Apply Moisture Barrier Paste periwound. Cover with Optifoam drsg. Change Daily and prn. Apply Moisture Barrier Paste to Sacrum. Cover with Optifoam drsg. Change every 3 days and prn. Apply Betadine to R heel, R hallux,Distal/lateral R foot. Cover with Abd pad and wrap with Kerlix every 3 days and prn. Apply Betadine to L hallux,L 1st metatarsal head,L heel. Cover with Abd pads and wrap with Kerlix every 3 days and prn. Reposition Back to L Side at least every 2hours or as tolerated. Place Pillow between knees. Off-load heels with pillow. APM/TIEN Mattress overlay. (5) Suspected COVID-19 virus infection (6) Anemia Assessment & Plan: transfused prbc h/h stable trend labs Anshul Nava Sep 24, 2019 12:46
--- NOTE | 2019-09-24 12:57 | Cardiac Electrophysiology PN ---
Assessment/Plan Assessment/Plan 1. BNP of more than 6000. On HD. EF 65%. Ruled out for RI On HD 2. Hypertension. Continue Coreg 6.25 mg bid and HD 3. Recurrent fever and high WBC and UTI. On Abx per Dr. Rosado. Awaiting ID clearace to DC to [facility] 4. S/P PEG placement. 5. Dementia. 6. ESRD on HD per Dr. Bowen. 7. Severe anemia Hb 6.9, S/P 2 units of PRBC DW RN Subjective Subjective Nonverbal. DC to [facility] cancelled as had T 101.4 and abx changed. Covid negative x 2. Objective Last 24 Hour Vital Signs Date Time Temp Pulse Resp B/P (MAP) Pulse Ox O2 Delivery O2 Flow Rate FiO2 09/24/19 12:00 98.2 105 18 128/61 (83) 92 09/24/19 09:27 92 130/81 09/24/19 09:00 Room Air 09/24/19 08:00 98.4 92 23 130/81 (97) 97 09/24/19 04:00 98.1 95 24 134/76 (95) 95 09/24/19 03:05 98.1 09/24/19 00:27 98.1 92 24 142/67 (92) 97 09/23/19 21:00 93 113/51 09/23/19 21:00 Room Air 09/23/19 20:00 98.1 93 24 113/51 (71) 96 09/23/19 16:00 98.2 111 26 135/73 (93) 93 09/23/19 14:00 98.1 91 26 123/77 (92) 93 Intake and Output 09/23/19 09/24/19 19:00 07:00 Intake Total 580 ml 920 ml Output Total 100 ml 1500 ml Balance 480 ml -580 ml Free Water 150 ml 100 ml IV Total 150 ml 300 ml Tube Feeding 280 ml 520 ml Output Urine Total 100 ml Hemodialysis UF 1500 ml Laboratory Tests Test 09/24/19 07:05 White Blood Count 13.3 K/UL (4.8-10.8) H Red Blood Count 3.31 M/UL (4.20-5.40) L Hemoglobin 9.9 G/DL (12.0-16.0) L Hematocrit 29.5 % (37.0-47.0) L Mean Corpuscular Volume 89 FL (80-99) Mean Corpuscular Hemoglobin 29.8 PG (27.0-31.0) Mean Corpuscular Hemoglobin Concent 33.5 G/DL (32.0-36.0) Red Cell Distribution Width 13.7 % (11.6-14.8) Platelet Count 311 K/UL (150-450) Mean Platelet Volume 6.7 FL (6.5-10.1) Neutrophils (%) (Auto) 64.7 % (45.0-75.0) Lymphocytes (%) (Auto) 25.8 % (20.0-45.0) Monocytes (%) (Auto) 5.1 % (1.0-10.0) Eosinophils (%) (Auto) 3.7 % (0.0-3.0) H Basophils (%) (Auto) 0.6 % (0.0-2.0) Sodium Level 137 MMOL/L (136-145) Potassium Level 3.8 MMOL/L (3.5-5.1) Chloride Level 102 MMOL/L (98-107) Carbon Dioxide Level 25 MMOL/L (21-32) Anion Gap 10 mmol/L (5-15) Blood Urea Nitrogen 33 mg/dL (7-18) H Creatinine 2.7 MG/DL (0.55-1.30) H Estimat Glomerular Filtration Rate 20.1 mL/min (>60) Glucose Level 118 MG/DL (74-106) H Calcium Level 10.0 MG/DL (8.5-10.1) Total Bilirubin 0.5 MG/DL (0.2-1.0) Aspartate Amino Transf (AST/SGOT) 28 U/L (15-37) Alanine Aminotransferase (ALT/SGPT) 27 U/L (12-78) Alkaline Phosphatase 77 U/L (46-116) Total Protein 7.0 G/DL (6.4-8.2) Albumin 3.1 G/DL (3.4-5.0) L Globulin 3.9 g/dL Albumin/Globulin Ratio 0.8 (1.0-2.7) L Objective HEAD AND NECK: No JVD. LUNGS: Coarse rhonchi. CARDIOVASCULAR: Regular S1 and S2 with no gallop. ABDOMEN: Status post G-tube. EXTREMITIES: No pitting edema. Toluie,Cristopher MD Sep 24, 2019 12:57
--- NOTE | 2019-09-24 15:31 | Diagnostic Imaging Report ---
Indication: Bilateral upper extremity edema. History of prior PICCs Technique: Grayscale and duplex images of the bilateral upper extremity veins Comparison: none Findings: Bilaterally, grayscale and duplex images demonstrate no evidence of intraluminal thrombus. Normal phasic Doppler waveforms normal compressibility. Edema of the subcutaneous fat is noted bilaterally. Impression: Negative for evidence of upper extremity venous thrombosis
[2019-09-24 16:00] VITALS: BP 129/75
[2019-09-24] MEDS ORDERED: ZYVOX600 MG ORAL (17:20)
[2019-09-24] MEDS ORDERED: LEXAPRO10 MG ORAL (17:20)
[2019-09-24] MEDS ORDERED: FLUCONAZOLE150 MG ORAL (17:20)
[2019-09-24] MEDS ORDERED: MEROPENEM-500 MG/50 IV (17:20)
--- NOTE | 2019-09-24 17:30 | Discharge Summary ---
Discharge Summary Hospital Course Date of Admission September 07, 2019 at 20:39 Date of Discharge today Admitting Diagnosis anemia/CRF dialysis HPI Patient is an 89-year-old female with history of ESRD on HD, dysphagia s/p PEG, multiple pressure wounds, HTN presenting from dialysis center after she was found to have serum hgb level of 6.0. Patient is non- verbal and immobile and resides at a NH. History is obtained from the ED physician and the medical chart. Of note patient was recently hospitalized at [facility] for sepsis and pseudomonas pneumonia and was received appropriate tx with antibiotics. On arrival to the ED, patient's vitals significant for B.P: 156/72mmhg. The CBC showed serum hgb: 7.4 The UA was significant for highly elevated WBC and RBC and 3+ LE. Patient is being admitted for further observation and medical management. Consultations Cardiology Heme Onc ID Nephrology Pulmonary Surgery Hospital Course 89 YO F with ESRD on HD, 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 Pt found to have UTI and bacteremia treated with board spectrum abx as below, she will continue an additional 5 days of therapy at SNF. Pt received HD in house per nephro. Pressure wounds addressed by surgery. At time of DC pt afebrile and HDS w/ a persistent leukocytosis which is stable. Please see below for further in pt mgt details. #ESRD on HD #Anemia of Chronic Disease #Type II RI demand Ischemia, HTN #Dementia, Peg tube dependent, Functional Quadriplegia and associated associated pressure ulcers - HD as scheduled w/ epogen dosing. - Coreg, ASA, Atorvastatin. - DVT ppx, supportive measures. - Tube Feeds. - Appreciate Consultants. #Sepsis 2/2 Klebsiella UTI and VRE Bacteremia--> spiked fevers again, so started back on tx on 09/18 w/ repeat Horton Cx #Urinary tract infection-Complicated: #Indwelling Sanchez catheter for wound protection #leukocytosis- uptrending now but clinically improving - Appreciate ID recommendations. D/w Dr. Lynn - Continue zosyn, amikacin (09/18 - ) - Continue zyvox (09/20 - ) - off Vanc - follow cultures - check C diff -> negative #ESRD on HD #Acute on chronic anemia, now resolved #Anemia of ESRD -Serum hgb:7.4 -Continue to monitor; CBC Q 8H -cont. to monitor for signs/symptoms of bleeding -Transfuse for hgb <7.0 -EPOGEN per nephro -Dr. Oconnor (nephrology) on board. Appreciate further recommendations. #HTN #elevated troponin #Elevated BNP -trops stable at baseline -likely due to demand ischemia, ESRD, sepsis -ASA, statin -Continue home Lasix -hydralazine PRN for SBP >160 -Carvedilol 6.25 mg BID -Cardio following consult #Dysphagia -s/p PEG -tolerating TF -Dietary and GI following, recs appreciated #Advanced Dementia -stable -neuro following, appreciate recs #Pressure wounds -Will consult wound care F: Tube feeding E:Monitor and replete PRN N: Tube feeding. DVT PPx: HSQ Spent 41 minutes on the patient's case and 23 on counseling and care coordination. Case discussed with RN at the bedside, nephrology, infecitous disease. Time of note may not reflect time patient was seen Discharge Condition Upon Discharge: stable Discharge Vital Signs Last Vital Signs Date Time Temp Pulse Resp B/P (MAP) Pulse Ox O2 Delivery O2 Flow Rate FiO2 09/24/19 12:00 98.2 105 18 128/61 (83) 92 09/24/19 09:00 Room Air Discharge Disposition Patient was discharged to SNF Champ Avila MD Sep 24, 2019 17:30
[2019-09-24 20:00] VITALS: BP 118/69
--- NOTE | 2019-09-24 20:46 | Neurology Progress Note ---
Interim History Interim History ROS Limited/Unobtainable: No Interim History no new deficits Objective Physical Exam Last Vital Signs Date Time Temp Pulse Resp B/P (MAP) Pulse Ox O2 Delivery O2 Flow Rate FiO2 09/24/19 16:00 97.1 116 20 129/75 (93) 94 09/24/19 09:00 Room Air Laboratory Tests Test 09/24/19 07:05 White Blood Count 13.3 K/UL (4.8-10.8) H Red Blood Count 3.31 M/UL (4.20-5.40) L Hemoglobin 9.9 G/DL (12.0-16.0) L Hematocrit 29.5 % (37.0-47.0) L Mean Corpuscular Volume 89 FL (80-99) Mean Corpuscular Hemoglobin 29.8 PG (27.0-31.0) Mean Corpuscular Hemoglobin Concent 33.5 G/DL (32.0-36.0) Red Cell Distribution Width 13.7 % (11.6-14.8) Platelet Count 311 K/UL (150-450) Mean Platelet Volume 6.7 FL (6.5-10.1) Neutrophils (%) (Auto) 64.7 % (45.0-75.0) Lymphocytes (%) (Auto) 25.8 % (20.0-45.0) Monocytes (%) (Auto) 5.1 % (1.0-10.0) Eosinophils (%) (Auto) 3.7 % (0.0-3.0) H Basophils (%) (Auto) 0.6 % (0.0-2.0) Sodium Level 137 MMOL/L (136-145) Potassium Level 3.8 MMOL/L (3.5-5.1) Chloride Level 102 MMOL/L (98-107) Carbon Dioxide Level 25 MMOL/L (21-32) Anion Gap 10 mmol/L (5-15) Blood Urea Nitrogen 33 mg/dL (7-18) H Creatinine 2.7 MG/DL (0.55-1.30) H Estimat Glomerular Filtration Rate 20.1 mL/min (>60) Glucose Level 118 MG/DL (74-106) H Calcium Level 10.0 MG/DL (8.5-10.1) Total Bilirubin 0.5 MG/DL (0.2-1.0) Aspartate Amino Transf (AST/SGOT) 28 U/L (15-37) Alanine Aminotransferase (ALT/SGPT) 27 U/L (12-78) Alkaline Phosphatase 77 U/L (46-116) Total Protein 7.0 G/DL (6.4-8.2) Albumin 3.1 G/DL (3.4-5.0) L Globulin 3.9 g/dL Albumin/Globulin Ratio 0.8 (1.0-2.7) L Head: normocophalic Neck: no rigidity Neurologic Exam Objective somnolent, non verbal not following withdraws to pain Impression/Recommendations Problems: (1) COVID-19 ruled out (2) UTI (urinary tract infection) (3) Acute anemia (4) Suspected COVID-19 virus infection (5) Anemia (6) Sepsis (7) Chronic kidney failure (8) Bacteremia due to Pseudomonas (9) Decubitus skin ulcer (10) Fever (11) Rhabdomyolysis (12) Elevated troponin (13) KAREN (acute kidney injury) (14) Elevated brain natriuretic peptide (BNP) level (15) ESRD (end stage renal disease) on dialysis (16) Pressure ulcer (17) Protein calorie malnutrition (18) Dysphagia Diagnostic Impression Acute on chronic encephalopathy, metabolic, sepsis ESRD on HD Sepsis 2/2 Klebsiella UTI and VRE Bacteremia--> course complete w/ meropenem and vancomycin on 09/17 Dementia, Peg tube dependent, Functional Quadriplegia and associated associated pressure ulcers Pancreatic lesion; evaluated by Sushil Madison MD Sep 24, 2019 20:46
--- NOTE | 2019-09-25 02:15 | Progress Note ---
DATE: 09/24/2019 SUBJECTIVE: The patient is in bed, continues to be agitated and screaming, difficult to redirect. MENTAL STATUS EXAMINATION: The patient is alert and oriented times self. Mood is anxious. Affect is flat. Thought process is concrete. Thought content, no suicidal or homicidal ideation. Cognition is impaired. Insight and judgment are impaired. ASSESSMENT: Dementia with behavior disturbance. PLAN: 1. Continue current psychotropic medications. 2. Provide the patient with reality orientation. Jaime Jackson M.D. DR: MANA JOB#: [id number] CC:
== END 2019-09-24 20:20 | DRG 871 ==
LOC: EDBD 17:55 → EMR 18:15 → EDBEDREQ 20:32 → 2E 20:39 → 4E 09-18 18:50
PROC: 5A1D70Z Performance of Urinary Filtration, Intermittent, Less than 6 Hours Per Day (ICD-10-PCS; principal; 2019-09-10)
DX: A41.89 Other specified sepsis (principal); N18.6 End stage renal disease; I21.A1 Myocardial infarction type 2; J96.01 Acute respiratory failure with hypoxia; K85.90 Acute pancreatitis without necrosis or infection, unspecified; R53.2 Functional quadriplegia; I13.2 Hypertensive heart and chronic kidney disease with heart failure and with stage 5 chronic kidney disease, or end stage renal disease; N39.0 Urinary tract infection, site not specified; E46 Unspecified protein-calorie malnutrition; Z68.1 Body mass index [BMI] 19.9 or less, adult; N17.9 Acute kidney failure, unspecified; G93.40 Encephalopathy, unspecified; F03.91 Unspecified dementia, unspecified severity, with behavioral disturbance; D63.1 Anemia in chronic kidney disease; I50.9 Heart failure, unspecified; Z99.2 Dependence on renal dialysis; R13.10 Dysphagia, unspecified; Z93.1 Gastrostomy status; F03.90 Unspecified dementia, unspecified severity, without behavioral disturbance, psychotic disturbance, mood disturbance, and anxiety; Z20.828 Contact with and (suspected) exposure to other viral communicable diseases; L89.110 Pressure ulcer of right upper back, unstageable; L89.890 Pressure ulcer of other site, unstageable; D69.6 Thrombocytopenia, unspecified; I25.10 Atherosclerotic heart disease of native coronary artery without angina pectoris; R97.0 Elevated carcinoembryonic antigen [CEA]
CPT/HCPCS: 36415; 71045; 80048; 80053; 80202; 81003; 82248; 82270; 82378; 82550; 82553; 82607; 82728; 82746; 83540; 83550; 83605; 83735; 83880; 84100; 84484; 85007; 85025; 85379; 85610; 85730; 86706; 86850; 86900; 86901; 86920; 87040; 87070; 87081; 87086; 87181; 87205; 87324; 87635; 93005; 93306; 93970; 96361; 96365; 99285; J7030; J8499

== ENCOUNTER 2020-01-13 05:07 | Day surgery (SDC) | payer MEDICARE, BC ==
[~2020-01-13] VITALS: Ht 152.4 cm; Wt 59.0 kg
[2020-01-13] VITALS (12 sets, daily range): BP systolic 136–161; BP diastolic 62–104
[~2020-01-13 05:07] MED LIST changes: +FLUCONAZOLE150 MG ORAL; +LEXAPRO10 MG ORAL; +MEROPENEM-500 MG/50 IV; +MERREM MONIT1 EA IV; +ZYVOX600 MG ORAL
[2020-01-13] MEDS ORDERED: NEPHROVITE1 TAB GT (06:43)
[2020-01-13] MEDS ORDERED: OXYCODONE-ACET1 EAC5 ORAL (06:43)
[2020-01-13] MEDS ORDERED: AMLODIPINE BES2.5 MG GT (06:43)
[2020-01-13] MEDS ORDERED: OXYCODONE-ACET1 EAC5 GT (06:43)
[2020-01-13] MEDS ORDERED: GABAPENTIN100 MG GT (06:43)
[2020-01-13] MEDS ORDERED: ZINC SULFATE220 M1 GT (06:43)
[2020-01-13] MEDS ORDERED: DOCUSATE SODIU100 MG GT (06:43)
[2020-01-13] MEDS ORDERED: TRAMADOL HCL50 MG GT (06:43)
[2020-01-13] MEDS ORDERED: CARVEDILOL6.25 MG GT (06:43)
[2020-01-13] MEDS ORDERED: fentaNYL 100 mcg/2 mL IV ONE (07:02)
[2020-01-13] MEDS ORDERED: Lidocaine 1% MPF 10mg/ml 5ml ONE ×2 (07:03→08:24)
[2020-01-13 07:11] LABS: CALCIUM 10.2 MG/DL (8.5-10.1); POTASSIUM 4.2 MMOL/L (3.5-5.1)
[2020-01-13] MEDS ORDERED: Isovue-M 300 15ml INJ ONE (07:23)
[2020-01-13] MEDS ORDERED: Heparin 1000 units/ml 1ml Vial ONE (07:24)
[2020-01-13] MEDS ORDERED: Thrombin 5000 units TOPIC ONE (07:24)
[2020-01-13] MEDS ORDERED: Heparin 5000 units/ml inj ONE (07:24)
[2020-01-13] MEDS ORDERED: NeoSporin Gu Irrig 1ml Amp IRRIG ONE (07:25)
[2020-01-13] MEDS ORDERED: Iothalamate Meglumine 60% 30ML INJ ONE (07:25)
[2020-01-13] MEDS ORDERED: Lidocaine 1% Plain 30 ml INJ ONE (07:25)
[2020-01-13] MEDS ORDERED: Bupivacaine 0.25% Inj 30ml INJ ONE (07:25)
[2020-01-13] MEDS ORDERED: Bacitracin 50000 Units Vial ONE (07:25)
[2020-01-13] MEDS ORDERED: NS 500ML ONE (07:30)
[2020-01-13] MEDS ORDERED: Sterile Water Irrig 1000ml IRRIG ONE (07:30)
--- NOTE | 2020-01-13 07:42 | Pre-Procedure Note/Attestation ---
Pre-Procedure Note/Attestation Complete Prior to Procedure Planned Procedure: left Procedure Narrative: Left arm arteriovenous fistula Indications for Procedure Pre-Operative Diagnosis: ESRD Attestation I attest that I discussed the nature of the procedure; its benefits; risks and complications; and alternatives (and the risks and benefits of such alternatives), prior to the procedure, with the patient (or the patient's legal scheduling representative). I attest that, if there was a reasonable possibility of needing a blood transfusion, the patient (or the patient's legal scheduling representative) was given the [facility] standardized written summary, pursuant to the [place] Blood Safety Act ([place] [facility] and Safety Code # 1645, as amended). I attest that I re-evaluated the patient just prior to the surgery and that there has been no change in the patient's H&P, except as documented below: Mario Allen MD Jan 13, 2020 07:42
--- NOTE | 2020-01-13 08:33 | Anethesia Preoperative Eval ---
Anesthesia Pre-op PMH/ROS General Date of Evaluation: Jan 13, 2020 Time of Evaluation: 07:15 Anesthesiologist: Tanja ASA Score: ASA 4 Mallampati Score Class I : Soft palate, uvula, fauces, pillars visible Class II: Soft palate, uvula, fauces visible Class III: Soft palate, base of uvula visible Class IV: Only hard plate visible Mallampati Classification: Class III Surgeon: Tiffany Diagnosis: ESRD Surgical Procedure: A-V fistula vs shunt placement Anesthesia History: none Family History: no anesthesia problems Allergies: Coded Allergies: No Known Allergies (Unverified , 06/24/19) Medications: see eMAR Patient NPO?: Yes Past Medical History Cardiovascular: Reports: HTN; Denies: CAD, VT, valve dz, arrhythmia, other Pulmonary: Denies: asthma, COPD, JORGE LUIS, other Gastrointestinal/Genitourinary: Reports: GERD, ESRD, other - Dysphagia PEG tube in place; Denies: CRI Neurologic/Psychiatric: Reports: dementia, CVA; Denies: depression/anxiety, TIA, other Endocrine: Reports: hypothyroidism; Denies: DM, steroids, other HEENT: Denies: cataract (L), cataract (R), glaucoma, FLANDREAU (L), FLANDREAU (R), other Hematology/Immune: Reports: anemia - mild; Denies: DVT, bleeding disorder, other Musculoskeletal/Integumentary: Reports: OA, other - severe contruction, sacral decubitus and bilateral hill chronic wounds; Denies: RA, DJD, DDD, edema Other: other - malnourished PMH Narrative: as above PSxH Narrative: Hysterectomy, permacath placement Anesthesia Pre-op Phys. Exam Physician Exam Last Vital Signs Date Time Temp Pulse Resp B/P (MAP) Pulse Ox O2 Delivery O2 Flow Rate FiO2 01/13/20 06:44 Room Air 01/13/20 06:11 97.6 102 18 157/104 95 Constitutional: NAD Neurologic: other - unable to obtain nonverbal Cardiovascular: RRR Respiratory: CTA Gastrointestinal: other - peg tube in place Airway Exam Mallampati Score: Class III - s/p mandible Sx for CA MO: limited Neck: stiff ROM: limited Teeth: missing Dentures: no upper, no lower Anesthesia Pre-op A/P Labs Chemistry Test 01/13/20 05:35 01/13/20 06:00 POC Whole Blood Glucose 114 MG/DL (74-106) H Sodium Level 134 MMOL/L (136-145) L Potassium Level 4.2 MMOL/L (3.5-5.1) Chloride Level 97 MMOL/L (98-107) L Carbon Dioxide Level 26 MMOL/L (21-32) Anion Gap 11 mmol/L (5-15) Blood Urea Nitrogen 40 mg/dL (7-18) H Creatinine 3.0 MG/DL (0.55-1.30) H Estimat Glomerular Filtration Rate 17.8 mL/min (>60) Glucose Level 114 MG/DL (74-106) H Calcium Level 10.2 MG/DL (8.5-10.1) H Studies Pre-op Studies: echo - EF 55-60% recently Risk Assessment & Plan Assessment: ASA 4 Plan: MAC vs GA Status Change Before Surgery: No Pre-Antibiotics Drug: Ancef 1gr. Given Within 1 Hr of Incision: Yes Time Given: 08:10 Chito Agrawal MD Jan 13, 2020 08:33
[2020-01-13] MEDS ORDERED: fentaNYL 100 mcg/2 mL IV PRN (08:45)
--- NOTE | 2020-01-13 09:33 | Immediate Post-Op Evaluation ---
Immediate Post-Op Evalulation Immediate Post-Op Evalulation Procedure: Creatiion of A-V fistula Date of Evaluation: Jan 13, 2020 Time of Evaluation: 09:32 IV Fluids: 150 Blood Products: none Estimated Blood Loss: 10 Urinary Output: none Blood Pressure Systolic: 152 Blood Pressure Diastolic: 78 Pulse Rate: 88 Respiratory Rate: 22 O2 Sat by Pulse Oximetry: 99 Temperature (Fahrenheit): 97.5 Pain Score (1-10): 1 Nausea: No Vomiting: No Complications none Patient Status: reacts, patent, none Hydration Status: adequate Chito Agrawal MD Jan 13, 2020 09:33
--- NOTE | 2020-01-13 09:36 | Operative Note - PDOC ---
Operative Note Operative Note Pre-op Diagnosis: ESRD Procedure: Left arm antecubital avf (1st stage brachial artery to brachial vein) Post-op Diagnosis: same as pre-op Surgeon: Mario Allen MD Anesthesiologist: Chito Agrawal MD Anesthesia: local, moderate sedation Specimen: none Complications: none Condition: stable Fluids: 150cc Estimated Blood Loss: minimal - 5cc Drains: none Implant(s) used?: No Mario Allen MD Jan 13, 2020 09:36
--- NOTE | 2020-01-13 17:12 | Diagnostic Imaging Report ---
Indication: Foot pain Technique: 2 views of the left foot Comparison: none Findings: Exam is limited, due to the availability of only 2 views. There is chronic appearing erosive change of the head of the first proximal phalanx, and the distal phalanx appears to be subluxed or dislocated dorsally, pointed cephalad. The remainder of the bony alignment appears normal except for mild hammertoe deformity of the second through fifth digits. The bones appear osteoporotic. No definite fractures. No definite osseous erosions. Impression: Limited exam, due to the availability of only 2 views Chronic appearing deformities and probable chronic erosive changes of the first digit, as described No definite acute bony trauma No definite plain radiographic evidence of osteomyelitis. Note, however inherent limitations of plain radiographs for the diagnosis of such. Consider MRI or bone scan for better characterization if there is high clinical suspicion
--- NOTE | 2020-01-13 17:51 | Diagnostic Imaging Report ---
Indication: Foot pain Technique: 3 views right foot Comparison: none Findings: Bones are osteoporotic. Chronic lesions, likely old bone infarcts, are seen in the distal tibia. There are degenerative changes of the interphalangeal joint. No acute fractures. No dislocations. There is slight hammertoe deformity of the second through fifth digits. Impression: No definite plain radiographic evidence of osteomyelitis. Note, however, limited sensitivity of plain radiographs for such. If there is high clinical suspicion, consider further evaluation with MRI or bone scan Osteoporosis No acute bony trauma
[2020-01-14 12:43] VITALS: BP 136/74
--- NOTE | 2020-01-14 12:43 | 48 Hour Post Anesthesia Eval ---
Post Anesthesia Evaluation Procedure: Creatiion of A-V fistula Date of Evaluation: Jan 13, 2020 Time of Evaluation: 11:32 Blood Pressure Systolic: 136 0: 74 Pulse Rate: 86 Respiratory Rate: 20 Temperature (Fahrenheit): 97.6 O2 Sat by Pulse Oximetry: 98 Airway: patent Nausea: No Vomiting: No Pain Intensity: 2 Hydration Status: adequate Cardiopulmonary Status: stable Mental Status/LOC: patient returned to baseline Follow-up Care/Observations: n/a Post-Anesthesia Complications: none Follow-up care needed: ready to discharge Chito Agrawal MD Jan 14, 2020 12:43
--- NOTE | 2020-01-14 18:44 | Consultation ---
DATE OF CONSULTATION: 01/13/2020 VASCULAR SURGERY CONSULTATION CONSULTING PHYSICIAN: Mario Allen M.D. ATTENDING PHYSICIAN: Mario Allen M.D. REFERRING PHYSICIAN: Rory Oconnor M.D. and Meera Frederick M.D. REASON FOR CONSULTATION: Access for hemodialysis. HISTORY OF PRESENT COMPLAINT: This is an 89-year-old female who suffers from dementia, assisted resident, prior history of stroke. Patient is nonambulatory, has arm and leg contracture. She has a history of right chest PermCath, on hemodialysis. Vascular Surgery is consulted for placement of permanent access and AV shunt. PAST MEDICAL HISTORY: As above. History of end-stage renal failure, on hemodialysis. Right chest PermCath, dementia, stroke, arm and leg contractures, heel decubitus changes, arterial occlusive disease. MEDICATIONS: See attached MAR. ALLERGIES: No known drug allergies. SOCIAL HISTORY: Unobtainable. FAMILY HISTORY: Unobtainable. SYSTEM REVIEW: Unobtainable due to altered mental status. PHYSICAL EXAMINATION: VITAL SIGNS: The patient is afebrile at 97.8, heart rate is 60, blood pressure is 150/70, respirations 16. The patient has palpable radial pulses. LUNGS: Clear to auscultation. HEART: Regular. ABDOMEN: Soft, nontender. EXTREMITIES: She has palpable femoral pulses. Absent popliteal and pedal pulses bilaterally. She has bilateral heel decubitus changes with necrosis, right worse than left. Left chest PermCath is clear and intact. IMPRESSION: 1. End-stage renal failure, on hemodialysis, requiring permanent access. 2. History of hypertension. 3. Dementia. 4. [facility] resident. 5. 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 6. Bilateral heel decubitus necrosis, right worse than left, with arterial occlusive disease. PLAN AND RECOMMENDATIONS: 1. We will proceed with AV shunt. The patient may need 2-stage fistula and transposition fistula placement. 2. Wound care per podiatry service. Inpatient evaluation to rule out osteomyelitis with knee contracture. She is not a candidate for lower extremity revascularization. The above was discussed at length with the patient's sister, Ivet De La Cruz. Mario Allen M.D. DR: CURT JOB#: [id number] CC: Meera Frederick M.D.; Fax#: [phone] Rory Oconnor MD
--- NOTE | 2020-01-14 18:59 | Operative Note - Dictated ---
DATE OF OPERATION: 01/13/2020 SURGEON: Mario Allen MD PREOPERATIVE DIAGNOSES: 1. End-stage renal disease requiring permanent access for hemodialysis. 2. History of right chest Perma catheter. 3. Dementia. 4. Stroke. 5. [facility] resident. 6. Arm and leg contractures with heel decubitus and wound necrosis. POSTOPERATIVE DIAGNOSES: 1. End-stage renal disease requiring permanent access for hemodialysis. 2. History of right chest Perma catheter. 3. Dementia. 4. Stroke. 5. [facility] resident. 6. Arm and leg contractures with heel decubitus and wound necrosis with findings. PROCEDURE: 1. Exploration and dilatation and ligation of left cephalic vein. 2. Exploration of left antecubital basilic vein. 3. Left upper arm ultrasound sonography. 4. Left antecubital brachial artery to brachial vein arteriovenous fistula placement with left brachial vein dilatation. ANESTHESIA: Local sedation. ANESTHESIOLOGIST: Chito Agrawal MD COMPLICATIONS: None. FINDINGS: 1. Sclerosed left cephalic vein. 2. Sclerosed left basilic vein, not suitable for autogenous AV shunt creation. 3. The left brachial medial vein branch was large and suitable measured about 3 to 4 mm in size. The left brachial artery was soft with minimal plaque. Post AV shunt creation, patient had a dopplerable bruit and radial Doppler pulses. Patient will require 4 to 6 weeks time for further maturation prior to left arm transposition versus AV graft placement. INDICATION FOR PROCEDURE: This is an 89-year-old female who presented for the above mentioned procedure. Risks and benefits were discussed with the patient and family and consent was obtained. DESCRIPTION OF PROCEDURE: The patient was brought to the procedure room. After a dose of antibiotics and sedation by the anesthesiologist, the left arm was prepped and draped in the usual sterile manner. Left upper arm ultrasound sonography was performed with the findings as mentioned above. Left under local anesthesia. was divided. Left cephalic and basilic veins were sharply dissected. The cephalic vein was divided using 2-0 silk suture. The proximal cephalic vein was divided ; however, this was extensively sclerosed. This was ligated with 2-0 silk suture. The left basilic vein was not suitable for AV shunt creation. Attention was turned to the left brachial artery. Proximal and distal double loop control was obtained. The medial branch of the left brachial vein was sharply dissected. Distally, this was divided using a 2-0 silk suture. The proximal brachial vein was flushed with heparinized saline solution and dilated and spatulated. The patient was systemically heparinized. Left brachial arteriotomy was made less than half a centimeter. End-to-side anastomosis was carried out using a running 6-0 Prolene suture. Forward and backward flush was given. Anastomosis was completed. Flow was restored with a strongly palpable thrill and dopplerable bruit. Anastomosis remained hemostatic. Intact Dopplers were noted. The wound was irrigated with antibiotic irrigation and closed using interrupted 2-0 and 3-0 Vicryl sutures. Skin was closed using a 4-0 Monocryl subcuticular skin closure. Sterile dressing was applied. Patient tolerated the procedure very well. Mario Allen M.D. DR: CURT JOB#: [id number] CC:
== END 2020-01-13 12:30 | disposition home or self-care (01) ==
LOC: SUR 05:07
DX: I12.0 Hypertensive chronic kidney disease with stage 5 chronic kidney disease or end stage renal disease (principal); N18.6 End stage renal disease; K21.9 Gastro-esophageal reflux disease without esophagitis; E03.9 Hypothyroidism, unspecified; F03.90 Unspecified dementia, unspecified severity, without behavioral disturbance, psychotic disturbance, mood disturbance, and anxiety; Z86.73 Personal history of transient ischemic attack (TIA), and cerebral infarction without residual deficits; Z90.710 Acquired absence of both cervix and uterus; E46 Unspecified protein-calorie malnutrition; Z68.25 Body mass index [BMI] 25.0-25.9, adult; D63.1 Anemia in chronic kidney disease; Z93.1 Gastrostomy status; R41.82 Altered mental status, unspecified; Z99.2 Dependence on renal dialysis; I70.262 Atherosclerosis of native arteries of extremities with gangrene, left leg; I70.261 Atherosclerosis of native arteries of extremities with gangrene, right leg; M62.48 Contracture of muscle, other site; M19.90 Unspecified osteoarthritis, unspecified site
CPT/HCPCS: 36415; 36819; 37799; 73620; 80048; 82962; 94003; J0690; J1644; J2001; J2704; J3010; J3490; J7030; J7040; U0002; 94150

== ENCOUNTER 2020-02-14 09:54 | Inpatient (IN) | payer MEDICARE, BC ==
[~2020-02-14] VITALS: Ht 152.4 cm; Wt 59.0 kg
--- NOTE | 2020-02-14 09:53 | NUR ---
ED Nurse Note: pt brought in by JENNIFER Duron from [facility] for AV shunt placement. pt is on dialysis M/W/F. currently pt has a central line to right chest for dialysis
[2020-02-14 09:54] VITALS: BP 154/82
[~2020-02-14 09:54] MED LIST changes: +AMLODIPINE BES2.5 MG GT; +CARVEDILOL6.25 MG GT; +DOCUSATE SODIU100 MG GT; +GABAPENTIN100 MG GT; +NEPHROVITE1 TAB GT; +OXYCODONE-ACET1 EAC5 GT; +OXYCODONE-ACET1 EAC5 ORAL; +TRAMADOL HCL50 MG GT; +ZINC SULFATE220 M1 GT
[2020-02-14] MEDS ORDERED: COLACE100 MG GT (10:06)
[2020-02-14] MEDS ORDERED: NEPHROVITE1 TAB GT (10:06)
[2020-02-14] MEDS ORDERED: OXYCODONE-ACET1 EAC5 ORAL (10:06)
[2020-02-14] MEDS ORDERED: CARVEDILOL6.25 MG ORAL (10:06)
[2020-02-14] MEDS ORDERED: TRAMADOL HCL50 MG GT (10:06)
[2020-02-14] MEDS ORDERED: FOLIC ACID1 MG ORAL (10:06)
[2020-02-14] MEDS ORDERED: AMLODIPINE BES2.5 MG ORAL (10:06)
[2020-02-14] MEDS ORDERED: GABAPENTIN100 MG GT (10:06)
--- NOTE | 2020-02-14 10:33 | NUR ---
ED Nurse Note: blood and covid sample collected and sent to lab.
[2020-02-14 10:40] LABS: BASOPHILS % (AUTO) 0.8 % (0.0-2.0); EOSINOPHILS % (AUTO) 1.7 % (0.0-3.0); HEMATOCRIT 37.3 % (37.0-47.0); LYMPHOCYTES % (AUTO) 19.9 % (20.0-45.0); MEAN CORPUSCULAR VOLUME 91 FL (80-99); MONOCYTES % (AUTO) 7.5 % (1.0-10.0); NEUTROPHILS % (AUTO) 70.2 % (45.0-75.0); PLATELET COUNT 263 K/UL (150-450); RED BLOOD COUNT 4.12 M/UL (4.20-5.40); RED CELL DISTRIBUTION WIDTH 19.6 % (11.6-14.8); WHITE BLOOD COUNT 10.2 K/UL (4.8-10.8)
[2020-02-14 10:49] LABS: CALCIUM 9.5 MG/DL (8.5-10.1); CREATININE 2.6 MG/DL (0.55-1.30); POTASSIUM 3.9 MMOL/L (3.5-5.1)
[2020-02-14 11:01] LABS: ALBUMIN 2.8 G/DL (3.4-5.0); ALBUMIN/GLOBULIN RATIO 0.6 (1.0-2.7); BILIRUBIN,TOTAL 0.4 MG/DL (0.2-1.0)
--- NOTE | 2020-02-14 11:51 | Diagnostic Imaging Report ---
Procedure: XRAY Chest 1v Reason for study: Cough Comparison films: 09/23/2019. FINDINGS: Right central venous catheter in place. Vascularity is normal. The lung richter are clear bilaterally. Cardiac and mediastinal silhouette are within normal limits. CP angles are sharp. Foci calcifications noted in the aorta and great vessels. IMPRESSION: NO ACUTE CARDIOPULMONARY DISEASE.
[2020-02-14 12:24] VITALS: BP 148/78
--- NOTE | 2020-02-14 12:24 | NUR ---
ED Nurse Note: pt seen in bed resting, no acute distress is noted. VSS as documented. will continue to monitor.
--- NOTE | 2020-02-14 12:55 | Emergency Room Report ---
History of Present Illness General Chief Complaint: General Complaint Source: Patient, Medical Record, EMS Present Illness HPI 89-year-old female presents to ED for evaluation. Brought in from nursing home facility for evaluation. History of end-stage renal disease. On dialysis. Monday. No signs of distress on arrival. No chest pain or shortness of breath. Patient requiring a Permanent dialysis access. No other aggravating or relieving factors. Denies any other associated symptoms Allergies: Coded Allergies: No Known Allergies (Unverified , 06/24/19) COVID-19 Screening Contact w/high risk pt: No Recent Travel to affected area: No Experienced COVID-19 symptoms?: No COVID-19 symptoms experienced: Cough COVID-19 Testing performed CLOCKSM[employer]: No Patient History Past Medical History: HTN, renal disease, dialysis Last Menstrual Period: na Now: No Immunizations: UTD Reviewed Nursing Documentation: PMH: Agreed; PSxH: Agreed Nursing Documentation-PMH Past Medical History: No History, Except For Hx Cardiac Problems: Yes Hx Hypertension: Yes Hx Cancer: Yes - jaw cancer Hx Gastrointestinal Problems: Yes - dysphagia Hx Dialysis: No - brooke Hx Neurological Problems: No - rhabdomyolisis Review of Systems All Other Systems: limited Physical Exam Vital Signs Date Time Temp Pulse Resp B/P (MAP) Pulse Ox O2 Delivery O2 Flow Rate FiO2 02/14/20 09:43 97.9 95 17 154/82 (106) 96 Room Air Sp02 EP Interpretation: reviewed, normal General Appearance: other - Nonverbal Head: normocephalic, atraumatic Eyes: bilateral eye normal inspection, bilateral eye PERRL ENT: hearing grossly normal, normal pharynx, no angioedema, normal voice Neck: full range of motion, supple/symm/no masses Respiratory: chest non-tender, lungs clear, normal breath sounds, speaking full sentences Cardiovascular #1: regular rate, rhythm, no edema Cardiovascular #2: 2+ carotid (R), 2+ carotid (L), 2+ radial (R), 2+ radial (L), 2+ dorsalis pedis (R), 2+ dorsalis pedis (L) Gastrointestinal: normal bowel sounds, non tender, soft, non-distended, no guarding, no rebound Rectal: deferred Genitourinary: normal inspection, no CVA tenderness Musculoskeletal: back normal, normal range of motion, non-tender Neurologic: other - Nonverbal Psychiatric: other - Nonverbal Reflexes: 3+ bicep (R), 3+ bicep (L), 3+ tricep (R), 3+ tricep (L), 3+ knee (R), 3+ knee (L) Skin: other - See nursing notes Lymphatic: no adenopathy Medical Decision Making Diagnostic Impression: Primary Impression: Chronic kidney failure Qualified Codes: N18.9 - Chronic kidney disease, unspecified Additional Impression: ESRD (end stage renal disease) on dialysis ER Course Hospital Course 89-year-old female presents for evaluation. History of end-stage renal disease. With permacath Differential diagnoses include: MS/unstable angina, fluid overload, CHF exa cerabation, hyperkalemia, uremia Clinical course Patient placed on stretcher. on color television console monitor. After initial history and ph ysical I ordered labs, EKG, chest x-ray labs reviewed- BUN/Cr elevated. K ok. no leukocytosis, hemoglobin/hematocrit stable EKG - NSR no acute ischemic changes interpreted by me Chest [id number] in place. No acute process Discussed with PMD. Patient will require permanent vascular access. Vascular has already been consulted. case discussed with Dr. Stewart and he agreed to accept the patient to his service for further care and support I. I feel this is a highly complex case requiring extensive working including EKG/Rhythm strip, Xray/CT/US, Blood/urine lab work, repeat exams while in ED, and administration of strong opiates/narcotics for pain control, admission to hospital or close patient follow up. Diagnosis -chronic kidney failure, ESRD on dialysis admitted to floor in serious condition Laboratory Tests Test 02/14/20 10:20 White Blood Count 10.2 K/UL (4.8-10.8) Red Blood Count 4.12 M/UL (4.20-5.40) L Hemoglobin 12.0 G/DL (12.0-16.0) Hematocrit 37.3 % (37.0-47.0) Mean Corpuscular Volume 91 FL (80-99) Mean Corpuscular Hemoglobin 29.2 PG (27.0-31.0) Mean Corpuscular Hemoglobin Concent 32.3 G/DL (32.0-36.0) Red Cell Distribution Width 19.6 % (11.6-14.8) H Platelet Count 263 K/UL (150-450) Mean Platelet Volume 9.0 FL (6.5-10.1) Neutrophils (%) (Auto) 70.2 % (45.0-75.0) Lymphocytes (%) (Auto) 19.9 % (20.0-45.0) L Monocytes (%) (Auto) 7.5 % (1.0-10.0) Eosinophils (%) (Auto) 1.7 % (0.0-3.0) Basophils (%) (Auto) 0.8 % (0.0-2.0) Prothrombin Time 10.9 SEC (9.30-11.50) Prothromb Time International Ratio 1.0 (0.9-1.1) Activated Partial Thromboplast Time 29 SEC (23-33) Sodium Level 136 MMOL/L (136-145) Potassium Level 3.9 MMOL/L (3.5-5.1) Chloride Level 103 MMOL/L (98-107) Carbon Dioxide Level 28 MMOL/L (21-32) Anion Gap 5 mmol/L (5-15) Blood Urea Nitrogen 38 mg/dL (7-18) H Creatinine 2.6 MG/DL (0.55-1.30) H Estimat Glomerular Filtration Rate 21.1 mL/min (>60) Glucose Level 119 MG/DL (74-106) H Calcium Level 9.5 MG/DL (8.5-10.1) Total Bilirubin 0.4 MG/DL (0.2-1.0) Aspartate Amino Transf (AST/SGOT) 26 U/L (15-37) Alanine Aminotransferase (ALT/SGPT) 20 U/L (12-78) Alkaline Phosphatase 97 U/L (46-116) Troponin I 0.053 ng/mL (0.000-0.056) Pro-B-Type Natriuretic Peptide 2388 pg/mL (0-125) H Total Protein 7.2 G/DL (6.4-8.2) Albumin 2.8 G/DL (3.4-5.0) L Globulin 4.4 g/dL Albumin/Globulin Ratio 0.6 (1.0-2.7) L EKG Diagnostic Results Troponin ordered: Yes Rate: normal Rhythm: NSR ST Segments: no acute changes ASA given to the pt in ED: No Rhythm Strip Diag. Results EP Interpretation: yes Rhythm: NSR, no PVC's, no ectopy Chest X-Ray Diagnostic Results Chest X-Ray Diagnostic Results : Chest X-Ray Ordered: Yes # of Views/Limited/Complete: 1 View Indication: Other EP Interpretation: Yes Interpretation: no consolidation, no effusion, no pneumothorax, no acute cardiopulmonary disease Impression: No acute disease Electronically Signed by: Electronically signed by Christopher Teresa MD Last Vital Signs Date Time Temp Pulse Resp B/P (MAP) Pulse Ox O2 Delivery O2 Flow Rate FiO2 02/14/20 12:24 91 16 148/78 97 Room Air 02/14/20 09:54 97.8 Status: improved Disposition: ADMITTED INPATIENT Condition: Serious Referrals: Meera Frederick MD (PCP) Christopher Teresa MD Feb 14, 2020 12:55
--- NOTE | 2020-02-14 13:16 | NUR ---
ED Nurse Note: Report given HYUN Liao from Med Surg floor.
--- NOTE | 2020-02-14 13:39 | NUR ---
ED Nurse Note: pt brought up to room 402 accompanied by mitten stitcher via gurney in stable condition. IV site to right hand remain intact. pt has no belongings.
--- NOTE | 2020-02-14 13:45 | Consultation ---
History of Present Illness General Chief Complaint: General Complaint Present Illness Allergies: Coded Allergies: No Known Allergies (Unverified , 06/24/19) Medication History Scheduled Amlodipine Besylate* (Amlodipine Besylate*), 2.5 MG GT DAILY, (Reported) Amlodipine Besylate* (Amlodipine Besylate*), 2.5 MG ORAL DAILY, (Reported) Carvedilol* (Carvedilol*), 6.25 MG GT BID, (Reported) Carvedilol* (Carvedilol*), 6.25 MG ORAL EVERY 12 HOURS, (Reported) Docusate Sodium* (Docusate Sodium*), 100 MG GT TWICE A DAY, (Reported) Docusate Sodium* (Colace*), 100 MG GT DAILY, (Reported) Folic Acid* (Folic Acid*), 0.8 MCG ORAL DAILY, (Reported) Gabapentin* (Gabapentin*), 300 MG GT HS, (Reported) Gabapentin* (Gabapentin*), 300 MG GT HS, (Reported) Vitamin B Cmplx/Vit C/Folic AC (Nephro-Jenny Tablet), 1 TAB GT DAILY, (Reported) Vitamin B Cmplx/Vit C/Folic AC (Nephro-Jenny Tablet), 1 TAB GT DAILY, (Reported) Zinc Sulfate (Zinc Sulfate*), 220 MG GT DAILY, (Reported) Scheduled PRN Oxycodone Hcl/Acetaminophen 10-325* (Oxycodone-Acetaminophen 10-325*), 1 TAB ORAL Q6H PRN for For Pain, (Reported) Oxycodone Hcl/Acetaminophen 10-325* (Oxycodone-Acetaminophen 10-325*), 1 TAB GT Q6H PRN for For Pain, (Reported) Oxycodone Hcl/Acetaminophen 10-325* (Oxycodone-Acetaminophen 10-325*), 1 TAB ORAL Q6H PRN for For Pain, (Reported) Tramadol Hcl* (Ultram*), 50 MG GT Q12HR PRN for For Pain, (Reported) Tramadol Hcl* (Ultram*), 50 MG GT BID PRN for For Pain, (Reported) Patient History Healthcare decision maker Resuscitation status Advanced Directive on File Physical Exam Last 24 Hour Vital Signs Date Time Temp Pulse Resp B/P (MAP) Pulse Ox O2 Delivery O2 Flow Rate FiO2 02/14/20 13:39 98.0 89 18 144/84 97 Room Air 02/14/20 12:24 91 16 148/78 97 Room Air 02/14/20 09:54 79 16 Room Air 02/14/20 09:54 97.8 79 16 154/82 96 Room Air 02/14/20 09:43 97.9 95 17 154/82 (106) 96 Room Air Laboratory Tests Test 02/14/20 10:20 White Blood Count 10.2 K/UL (4.8-10.8) Red Blood Count 4.12 M/UL (4.20-5.40) L Hemoglobin 12.0 G/DL (12.0-16.0) Hematocrit 37.3 % (37.0-47.0) Mean Corpuscular Volume 91 FL (80-99) Mean Corpuscular Hemoglobin 29.2 PG (27.0-31.0) Mean Corpuscular Hemoglobin Concent 32.3 G/DL (32.0-36.0) Red Cell Distribution Width 19.6 % (11.6-14.8) H Platelet Count 263 K/UL (150-450) Mean Platelet Volume 9.0 FL (6.5-10.1) Neutrophils (%) (Auto) 70.2 % (45.0-75.0) Lymphocytes (%) (Auto) 19.9 % (20.0-45.0) L Monocytes (%) (Auto) 7.5 % (1.0-10.0) Eosinophils (%) (Auto) 1.7 % (0.0-3.0) Basophils (%) (Auto) 0.8 % (0.0-2.0) Prothrombin Time 10.9 SEC (9.30-11.50) Prothromb Time International Ratio 1.0 (0.9-1.1) Activated Partial Thromboplast Time 29 SEC (23-33) Sodium Level 136 MMOL/L (136-145) Potassium Level 3.9 MMOL/L (3.5-5.1) Chloride Level 103 MMOL/L (98-107) Carbon Dioxide Level 28 MMOL/L (21-32) Anion Gap 5 mmol/L (5-15) Blood Urea Nitrogen 38 mg/dL (7-18) H Creatinine 2.6 MG/DL (0.55-1.30) H Estimat Glomerular Filtration Rate 21.1 mL/min (>60) Glucose Level 119 MG/DL (74-106) H Calcium Level 9.5 MG/DL (8.5-10.1) Total Bilirubin 0.4 MG/DL (0.2-1.0) Aspartate Amino Transf (AST/SGOT) 26 U/L (15-37) Alanine Aminotransferase (ALT/SGPT) 20 U/L (12-78) Alkaline Phosphatase 97 U/L (46-116) Troponin I 0.053 ng/mL (0.000-0.056) Pro-B-Type Natriuretic Peptide 2388 pg/mL (0-125) H Total Protein 7.2 G/DL (6.4-8.2) Albumin 2.8 G/DL (3.4-5.0) L Globulin 4.4 g/dL Albumin/Globulin Ratio 0.6 (1.0-2.7) L Microbiology Date/Time Source Procedure Growth Status 02/14/20 10:20 Nasopharynx SARS-CoV-2 RdRp Gene Assay - Final Complete Height (Feet): 5 Weight (Pounds): 130 Rory Oconnor M.D. Feb 14, 2020 13:45
[2020-02-14 13:50] VITALS: BP 130/79
--- NOTE | 2020-02-14 14:00 | NUR ---
NURSE NOTES: RECEIVED REPORT FROM ANTOLIN FROM ER. PT ARRIVED IN STABLE CONDITION. NO BELONGINGS NOTED. PT AXOX0, CAN OPEN EYES SPONTANEOUSLY TO TOUCH AND VOICE. OTHERWISE, NON-VERBAL. NO S/S PAIN NOTED USEING FLACC PAIN SCALE. RIGHT CHEST PERMACATH INTACT. DRESSING IS DRY. MULTIPLE PRESSURE INJURIES NOTED. RN TOOK PICTURES AND UPLOADED TO EMR. PT WAS CLEANED AND REPOSITIONED. IN HIGH KAPOOR'S POSITION WITH BED IN LOWEST POSITION. BEDSIDE RAILS X3 RAISED. WILL CONTINUE TO MONITOR.
[2020-02-14] MEDS ORDERED: Acetaminophen 650mg/20.3ml GT PRN ×2 (14:15)
[2020-02-14] MEDS ORDERED: Miralax 17gm pkt GT PRN (14:15)
[2020-02-14] MEDS ORDERED: Albuterol/Ipratropium 3ml neb HHN PRN (14:15)
--- NOTE | 2020-02-14 14:17 | History and Physical ---
History of Present Illness General Date patient seen: Feb 14, 2020 Reason for Hospitalization: General Complaint Present Illness HPI Mrs. 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 Patient with advanced dementia, therefore entire hx taken after speaking with ED physician and nurse at [facility]. Patient was on the scheduled for a AV fistula placement with Dr. Houston according to documents brought in with patient. No recent illnesses per nurse. She has severe dementia and does not follow commands. G tube dependent. She has a right permacatheter and gets her dialysis MWF. Unable to attain rest of ROS due to patient advanced dementia. Unable to attain rest of family history or social history given patient severe dementia and non verbal status. In the ED, patient hemodynamically stable with no significant lab abnormalities. To be admitted for AV fistula placement. Allergies: Coded Allergies: No Known Allergies (Unverified , 06/24/19) COVID-19 Screening Contact w/high risk pt: No Recent Travel to affected area: No Experienced COVID-19 symptoms?: No Medication History Scheduled Amlodipine Besylate* (Amlodipine Besylate*), 2.5 MG GT DAILY, (Reported) Amlodipine Besylate* (Amlodipine Besylate*), 2.5 MG ORAL DAILY, (Reported) Carvedilol* (Carvedilol*), 6.25 MG GT BID, (Reported) Carvedilol* (Carvedilol*), 6.25 MG ORAL EVERY 12 HOURS, (Reported) Docusate Sodium* (Docusate Sodium*), 100 MG GT TWICE A DAY, (Reported) Docusate Sodium* (Colace*), 100 MG GT DAILY, (Reported) Folic Acid* (Folic Acid*), 0.8 MCG ORAL DAILY, (Reported) Gabapentin* (Gabapentin*), 300 MG GT HS, (Reported) Gabapentin* (Gabapentin*), 300 MG GT HS, (Reported) Vitamin B Cmplx/Vit C/Folic AC (Nephro-Jenny Tablet), 1 TAB GT DAILY, (Reported) Vitamin B Cmplx/Vit C/Folic AC (Nephro-Jenny Tablet), 1 TAB GT DAILY, (Reported) Zinc Sulfate (Zinc Sulfate*), 220 MG GT DAILY, (Reported) Scheduled PRN Oxycodone Hcl/Acetaminophen 10-325* (Oxycodone-Acetaminophen 10-325*), 1 TAB ORAL Q6H PRN for For Pain, (Reported) Oxycodone Hcl/Acetaminophen 10-325* (Oxycodone-Acetaminophen 10-325*), 1 TAB GT Q6H PRN for For Pain, (Reported) Oxycodone Hcl/Acetaminophen 10-325* (Oxycodone-Acetaminophen 10-325*), 1 TAB ORAL Q6H PRN for For Pain, (Reported) Tramadol Hcl* (Ultram*), 50 MG GT Q12HR PRN for For Pain, (Reported) Tramadol Hcl* (Ultram*), 50 MG GT BID PRN for For Pain, (Reported) Patient History Healthcare decision maker Resuscitation status Advanced Directive on File Review of Systems ROS Narrative unable to attain due to patient non verbal and severe dementia Physical Exam General Appearance: other - advanced dementia, non verbal Lines, tubes and drains: dialysis access HEENT: normocephalic, atraumatic, PERRL Neck: non-tender Respiratory/Chest: lungs clear, normal breath sounds, no respiratory distress Cardiovascular/Chest: normal rate, regular rhythm Abdomen: normal bowel sounds, non tender, soft, other - gtube Extremities: other - right thigh pressure wound, pressure wounds on both heels, bilateral UE contractures Skin Exam: warm/dry Neurologic: other - non verbal, does not follow commands, open eyes spontaneously Last 24 Hour Vital Signs Date Time Temp Pulse Resp B/P (MAP) Pulse Ox O2 Delivery O2 Flow Rate FiO2 02/14/20 13:39 98.0 89 18 144/84 97 Room Air 02/14/20 12:24 91 16 148/78 97 Room Air 02/14/20 09:54 79 16 Room Air 02/14/20 09:54 97.8 79 16 154/82 96 Room Air 02/14/20 09:43 97.9 95 17 154/82 (106) 96 Room Air Laboratory Tests Test 02/14/20 10:20 White Blood Count 10.2 K/UL (4.8-10.8) Red Blood Count 4.12 M/UL (4.20-5.40) L Hemoglobin 12.0 G/DL (12.0-16.0) Hematocrit 37.3 % (37.0-47.0) Mean Corpuscular Volume 91 FL (80-99) Mean Corpuscular Hemoglobin 29.2 PG (27.0-31.0) Mean Corpuscular Hemoglobin Concent 32.3 G/DL (32.0-36.0) Red Cell Distribution Width 19.6 % (11.6-14.8) H Platelet Count 263 K/UL (150-450) Mean Platelet Volume 9.0 FL (6.5-10.1) Neutrophils (%) (Auto) 70.2 % (45.0-75.0) Lymphocytes (%) (Auto) 19.9 % (20.0-45.0) L Monocytes (%) (Auto) 7.5 % (1.0-10.0) Eosinophils (%) (Auto) 1.7 % (0.0-3.0) Basophils (%) (Auto) 0.8 % (0.0-2.0) Prothrombin Time 10.9 SEC (9.30-11.50) Prothromb Time International Ratio 1.0 (0.9-1.1) Activated Partial Thromboplast Time 29 SEC (23-33) Sodium Level 136 MMOL/L (136-145) Potassium Level 3.9 MMOL/L (3.5-5.1) Chloride Level 103 MMOL/L (98-107) Carbon Dioxide Level 28 MMOL/L (21-32) Anion Gap 5 mmol/L (5-15) Blood Urea Nitrogen 38 mg/dL (7-18) H Creatinine 2.6 MG/DL (0.55-1.30) H Estimat Glomerular Filtration Rate 21.1 mL/min (>60) Glucose Level 119 MG/DL (74-106) H Calcium Level 9.5 MG/DL (8.5-10.1) Total Bilirubin 0.4 MG/DL (0.2-1.0) Aspartate Amino Transf (AST/SGOT) 26 U/L (15-37) Alanine Aminotransferase (ALT/SGPT) 20 U/L (12-78) Alkaline Phosphatase 97 U/L (46-116) Troponin I 0.053 ng/mL (0.000-0.056) Pro-B-Type Natriuretic Peptide 2388 pg/mL (0-125) H Total Protein 7.2 G/DL (6.4-8.2) Albumin 2.8 G/DL (3.4-5.0) L Globulin 4.4 g/dL Albumin/Globulin Ratio 0.6 (1.0-2.7) L Microbiology Date/Time Source Procedure Growth Status 02/14/20 10:20 Nasopharynx SARS-CoV-2 RdRp Gene Assay - Final Complete Height (Feet): 5 Weight (Pounds): 130 Medications Current Medications Medications (Trade) Dose Ordered Sig/Joan Route PRN Reason Start Time Stop Time Status Last Admin Dose Admin Acetaminophen (Tylenol) 650 mg Q4H PRN ORAL Mild Pain (Pain Scale 1-3) 02/14/20 14:15 03/15/20 14:14 UNV Acetaminophen (Tylenol) 650 mg Q4H PRN ORAL Temp >100.5 02/14/20 14:15 03/15/20 14:14 UNV Albuterol/ Ipratropium (Albuterol/ Ipratropium) 3 ml Q4HR PRN HHN Shortness of Breath 02/14/20 14:15 02/19/20 14:14 UNV Amlodipine Besylate (Norvasc) 2.5 mg DAILY GT 02/15/20 09:00 03/16/20 08:59 Carvedilol (Coreg) 6.25 mg Q12HR GT 02/14/20 21:00 03/15/20 20:59 Dextrose (Dextrose 50%) 25 ml Q30M PRN IV Hypoglycemia 02/14/20 14:15 05/14/20 14:14 UNV Dextrose (Dextrose 50%) 50 ml Q30M PRN IV Hypoglycemia 02/14/20 14:15 05/14/20 14:14 UNV Folic Acid (Folate) 1 mg DAILY GT 02/15/20 09:00 03/16/20 08:59 Gabapentin (Neurontin) 300 mg DAILY GT 02/15/20 09:00 03/16/20 08:59 Heparin Sodium (Porcine) (Heparin 5000 units/ml) 5,000 units EVERY 12 HOURS SUBQ 02/14/20 21:00 03/30/20 20:59 UNV Ondansetron HCl (Zofran) 4 mg Q6H PRN IVP Nausea & Vomiting 02/14/20 14:15 03/15/20 14:14 UNV Polyethylene Glycol (Miralax) 17 gm HSPRN PRN ORAL Constipation 02/14/20 14:15 03/15/20 14:14 UNV Vitamin B Complex/ Vit C/Folic Acid (Nephrovite) 1 tab DAILY GT 02/15/20 09:00 03/16/20 08:59 Assessment/Plan Assessment/Plan: Mrs. 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 A: # AV Fistula Placement # ESRD s/p HD MWF # Advanced Dementia # Anemia of CKD # Dsyhagia s/p GTUBE dependent # UE Contractures # Multiple Pressure Wounds # Essential HTN P: - hemodynamically stable - sat well on RA - right permacath placed for dialysis MWF - will have vascular surgery for AV fistula placement - monitor lytes - f/u coags for preop - nutrition consult, Gtube feeds - wound care and consult, dressing changes - continue home amlodipine 2.5 mg daily and coreg 6.25 mg BID - continue home gabapentin for peripheral neuropathy - consult Dr. Allen Vascular surgery - consult Dr. Oconnor nephrology Code: Full GI: none Diet: Gtube DVT: Heparin 5000 U BID Dispo: pending AV fistula placement In addition to the usual care above I spent additional time reviewing records in the EMR and paper charts including physician documentation, nursing documentation, lab results, imaging and clinical documentation. Total time included was 31 min. Time spent on this encounter was 55 minutes which included 25 minutes of counseling and care coordination. I discussed with the nurse at bedside. Time of note may not reflect time patient was seen. Ashwin Eason D.O Feb 14, 2020 14:17
[2020-02-14 16:00] VITALS: BP 140/56
--- NOTE | 2020-02-14 16:36 | NUR ---
*-*DISCHARGE PLANNING*-* PATIENT HAS BEEN ACCEPTED BACK TO; [facility] P: [phone] FOR NURSE TO NURSE REPORT ROOM# 30.B [facility] TRANSPORTATION SET FOR WILL CALL, S/W CEM [phone].
--- NOTE | 2020-02-14 16:45 | NUR ---
NURSE NOTES: RECEIVED TELEPHONE CONSENT FOR HEMODIALYSIS FROM [facility] ([facility]), AND MADE AWARE PT WILL BE DISCHARGED BACK TO THE [facility] AFTER DIALYSIS. RN SPOKE TO SETH (NELSON) AND MADE AWARE OF DR WIN'S DISCHARGE ORDER TO DISCHARGE BACK TO SNF AFTER HEMODIALYSIS.
--- NOTE | 2020-02-14 18:00 | NUR ---
NURSE NOTES: RN GAVE REPORT TO AARON AT [facility]. DIALYSIS NURSE MIREYA AT BEDSIDE WITH PT. PT IN NO APPARENT DISTRESS AT THIS TIME. TOLERATING GTUBE FEEDING AT THIS TIME. WILL CONTINUE TO MONITOR.
--- NOTE | 2020-02-14 19:10 | NUR ---
NURSE NOTES: RECEIVED PATIENT FROM HYUN TITUS. PATIENT IS AWAKE, CALM, RESTING IN BED, AAOXO, CONFUSED, OPEN EYES SPONTANEOUSLY, RESPONSES TO EXTERNAL STIMULUS. PATIENT IS ON ROOM AIR, NO ACUTE DISTRESS NOTED. PATIENT IS BEDBOUND. G-TUBE FEEDING IN PLACE, FLUSHING WELL, NO RESIDUALS. G-TUBE RUNNING NEPHRO @1.2 AT 40ML/HR AT THIS TIME. PATIENT TOLERATE FEEDING WELL. PIV ON LEFT HAND 20G INTACT AND PATENT. PERMA CATH NOTED ON RIGHT CHEST, DRESSINGS INTACT AND DRY. WOUND DRESSINGS INTACT AND DRY. PATIENT IS PENDING DISCHARGE, AWAITING FOR AMBULANCE TO ARRIVE. BED IS LOCKED AND LOW, BED ALARMS ACTIVE, SIDE RAILS UPX2 AND CALL LIGHT IS WITHIN REACH, WILL CONTINUE TO MONITOR.
--- NOTE | 2020-02-14 19:31 | NUR ---
NURSE NOTES: RN SET UP [facility] ICT BUSINESS DEVELOPMENT MANAGER AT 1930HRS.
--- NOTE | 2020-02-14 19:46 | NUR ---
NURSE HAND-OFF: Important Events on Shift: DISCHARGE TO [facility] TODAY. [facility] ETA 1930 HRS. REPORT GIVEN TO AARON. PT DIALYZED TODAY 1.5L TAKEN OUT PER DIALYSIS NURSEMIREYA. Patient Status: STABLE Diet: GTF NEPRO AT 60ML/HR X 18HRS. FLUSH 150ML Q SHIFT. PT RUNNING GTF AT 40ML/HR AT THIS TIME. Pending Orders: N/A Pending Results/Labs:N/A Pending MD notification:N/A Latest Vital Signs: Temperature 97.2 , Pulse 101 , B/P 140 /56 , Respiratory Rate 16 , O2 SAT 97 , Room Air, O2 Flow Rate . Vital Sign Comment: STABLE Latest Schreiber Fall Score: 35 Fall Risk: Medium Risk Safety Measures: Call light Within Reach, Bed Alarm Zone 1, Side Rails Side Rails x3, Bed position Low and Locked. Fall Precautions: Yellow Socks Patient Fall Education Report given to Praveena BRYANT RN.
[2020-02-14 20:00] VITALS: BP 135/88
[2020-02-14] MEDS ORDERED: Heparin 5000 units/ml inj SUBQ SCH (21:00)
[2020-02-14] MEDS ORDERED: Carvedilol 6.25mg Tab GT SCH (21:00)
[2020-02-14 21:43] VITALS: BP 160/88
--- NOTE | 2020-02-14 22:12 | Discharge Summary ---
Discharge Summary Hospital Course Date of Admission Feb 14, 2020 at 11:04 Date of Discharge Admitting Diagnosis ESRD needs shunt HPI Jeanna Gallagher is a 89 year old female who was admitted on Feb 14, 2020 at 11:04 for End Stage Renal Disease Needs Shunt Hospital Course Mrs. 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 for AV fistula placement. I spoke with the medical staff of Dr. Allen and was told there was a miscommunication between him and patients fci; Dr. Allen has scheduled an outpatient date for the AV fistula placement on Mar 02. They had instructed the fci of this and was told to cancel the transfer to [facility], however, the fci apparently did not receive that message. Patient is otherwise stable with no acute medical issues. She received her HD this evening. She is stable for discharge back to her fci this evening. A: # AV Fistula Placement # ESRD s/p HD MWF # Advanced Dementia # Anemia of CKD # Dsyhagia s/p GTUBE dependent # UE Contractures # Multiple Pressure Wounds # Essential HTN P: - has scheduled outpatient date for AV fistula completion on Mar [address] Allen medical staff - continue home meds Discharge Discharge Vital Signs Last Vital Signs Date Time Temp Pulse Resp B/P (MAP) Pulse Ox O2 Delivery O2 Flow Rate FiO2 02/14/20 21:43 107 160/88 02/14/20 16:59 Room Air 02/14/20 16:00 97.2 16 97 Discharge Disposition Patient was discharged to Ashwin Eason D.O Feb 14, 2020 22:12
--- NOTE | 2020-02-14 23:00 | NUR ---
NURSE NOTES: PATIENT WAS SAFELY DISCHARGE. NO BELONGINGS. REPORT GIVEN TO BRYON MCKEON. PATIENT IS RETURNING TO [facility] VIA AMBULANCE.
[2020-02-15] MEDS ORDERED: Nephrovite tab (Rena-Vite) GT SCH (09:00)
== END 2020-02-14 22:40 | DRG 682 ==
LOC: EDBD 09:54 → EMR 10:58 → 4E 11:04 → EDBEDREQ 12:47 → 4E 15:45
PROC: 5A1D70Z Performance of Urinary Filtration, Intermittent, Less than 6 Hours Per Day (ICD-10-PCS; principal; 2020-02-14)
DX: I12.0 Hypertensive chronic kidney disease with stage 5 chronic kidney disease or end stage renal disease (principal); N18.6 End stage renal disease; Z43.1 Encounter for attention to gastrostomy; F03.90 Unspecified dementia, unspecified severity, without behavioral disturbance, psychotic disturbance, mood disturbance, and anxiety; D63.1 Anemia in chronic kidney disease; R13.10 Dysphagia, unspecified; M24.59 Contracture, other specified joint; L89.90 Pressure ulcer of unspecified site, unspecified stage
CPT/HCPCS: 36415; 71045; 80053; 83880; 84484; 85025; 85610; 85730; 86706; 86850; 86900; 86901; 87081; 93005; 99285; U0002

== ENCOUNTER 2020-02-29 08:31 | Inpatient (IN) | payer MEDICARE, BC ==
[2020-02-29] VITALS (24 sets, daily range): BP systolic 72–130; BP diastolic 24–67
[~2020-02-29] VITALS: Ht 152.4 cm; Wt 59.0 kg
[~2020-02-29 08:31] MED LIST changes: +AMLODIPINE BES2.5 MG ORAL; +COLACE100 MG GT; +FOLIC ACID1 MG ORAL
--- NOTE | 2020-02-29 08:50 | NUR ---
ED Nurse Note: Pt BIBA from [facility] for elevated WBC lab. Pt is alert and ox0, bedrest, contractures on all 4 extremities. She has G tube upper quadrant. She has R chest permcath for dialysis. IV established and blood sent. Pt set up on monitor. ERMD notified that rectal temp 100F and HR 112, pt is 98% 2L NC.
[2020-02-29 09:09] LABS: BASOPHILS % (AUTO) 0.2 % (0.0-2.0); EOSINOPHILS % (AUTO) 0.3 % (0.0-3.0); HEMATOCRIT 41.9 % (37.0-47.0); HEMOGLOBIN 12.2 G/DL (12.0-16.0); LYMPHOCYTES % (AUTO) 7.9 % (20.0-45.0); MEAN CORPUSCULAR VOLUME 97 FL (80-99); MONOCYTES % (AUTO) 9.4 % (1.0-10.0); NEUTROPHILS % (AUTO) 82.3 % (45.0-75.0); PLATELET COUNT 223 K/UL (150-450); RED BLOOD COUNT 4.32 M/UL (4.20-5.40); RED CELL DISTRIBUTION WIDTH 18.6 % (11.6-14.8); WHITE BLOOD COUNT 16.6 K/UL (4.8-10.8)
[2020-02-29 09:22] LABS: ANION GAP 9 mmol/L (5-15); BLOOD UREA NITROGEN 78 mg/dL (7-18); CALCIUM 9.5 MG/DL (8.5-10.1); CARBON DIOXIDE 28 MMOL/L (21-32); CHLORIDE 100 MMOL/L (98-107); CREATININE 4.4 MG/DL (0.55-1.30); POTASSIUM 3.9 MMOL/L (3.5-5.1); SODIUM 137 MMOL/L (136-145)
--- NOTE | 2020-02-29 09:22 | Diagnostic Imaging Report ---
EXAM: XR Chest, 1 View CLINICAL HISTORY: ALOC TECHNIQUE: Frontal view of the chest. COMPARISON: 02/14/20 FINDINGS: Lungs: There is unchanged mild pulmonary venous congestion with development of mild infiltrate in the lateral aspect of the left mid lung likely representing asymmetric pulmonary edema. Progress films are recommended to exclude developing pneumonia. Pleural space: Unremarkable. No pneumothorax. Heart: There is mild cardiomegaly. Mediastinum: Unremarkable. Bones/joints: Unremarkable. Tubes, lines and devices: There is right IJ central venous dialysis catheter in good position. IMPRESSION: There is unchanged mild pulmonary venous congestion with development of mild infiltrate in the lateral aspect of the left mid lung likely representing asymmetric pulmonary edema. Progress films are recommended to exclude developing pneumonia.
[2020-02-29 09:35] LABS: ALANINE AMINOTRANSFERASE 23 U/L (12-78); ALBUMIN 2.8 G/DL (3.4-5.0); ALBUMIN/GLOBULIN RATIO 0.7 (1.0-2.7); ALKALINE PHOSPHATASE 103 U/L (46-116); ASPARTATE AMINO TRANSFERASE 29 U/L (15-37); BILIRUBIN,TOTAL 0.5 MG/DL (0.2-1.0); CREATINE KINASE 45 U/L (26-308); FERRITIN 1794 NG/ML (8-388); LACTATE DEHYDROGENASE 166 U/L (81-234)
--- NOTE | 2020-02-29 09:44 | NUR ---
ED Nurse Note: Pt has 3 wounds: R foot, lower coccyx, and R buttocks. Camera not working, CN notified.
[2020-02-29] MEDS ORDERED: Piperacillin/Tazobactam 3.375 GM in NS 110 ML IVPB ONE (09:45)
[2020-02-29] MEDS ORDERED: Vancomycin 1 GM in NS 275 ML IVPB ONE (09:45)
[2020-02-29] MEDS ORDERED: Acetaminophen 650mg/20.3ml GT STA (09:48)
--- NOTE | 2020-02-29 09:51 | Emergency Room Report ---
History of Present Illness General Chief Complaint: Abnormal Labs Source: Family Member, Medical Record, EMS Present Illness HPI Patient was sent to the emergency department for elevated white count. The patient is unable to give a history. The patient has a gastrostomy tube. According to report the patient is a full code. The patient is a dialysis patient. She is due to have dialysis today. There is a Vas-Cath present for performance of dialysis. The patient was recently admitted in January. 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 # Multiple Pressure Wounds # Essential HTN Allergies: Coded Allergies: No Known Allergies (Unverified , 06/24/19) COVID-19 Screening Contact w/high risk pt: No Recent Travel to affected area: No Experienced COVID-19 symptoms?: No COVID-19 symptoms experienced: Cough COVID-19 Testing performed POLE CLIMBER: No Patient History Limited by: medical condition Past Medical History: see triage record, old chart reviewed Past Surgical History: hysterectomy, other - Vas-Cath, jaw tumor removal, gastrostomy tube Social History Narrative [facility] full code Reviewed Nursing Documentation: PMH: Agreed; PSxH: Agreed Nursing Documentation-PMH Hx Cardiac Problems: Yes Hx Hypertension: Yes Hx Cancer: Yes - JAW TUMOR REMOVAL Hx Gastrointestinal Problems: Yes Hx Dialysis: No - esrd (t, th, sat) Hx Neurological Problems: No Hx Dysphasia: Yes Physical Exam Vital Signs Date Time Temp Pulse Resp B/P (MAP) Pulse Ox O2 Delivery O2 Flow Rate FiO2 02/29/20 08:32 98.4 111 24 104/57 (73) 95 Nasal Cannula 2.0 Sp02 EP Interpretation: reviewed, abnormal - Interpreted as low by me General Appearance: mild distress, other - Unresponsive, Chronically Ill Head: normocephalic, atraumatic Eyes: bilateral eye other ENT: moist mucus membranes - Poor dentition Neck: other - Rigidity with deviation towards left shoulder Respiratory: respiratory distress, decreased breath sounds, crackles Cardiovascular #1: tachycardia Cardiovascular #2: 2+ radial (R) Gastrointestinal: other - Gastrostomy tube, decreased bowel sounds Rectal: hemorrhoids Genitourinary: no CVA tenderness Musculoskeletal: other - Early contractures Neurologic: motor weakness - Generalized, aphasia, other - Unresponsive to pain pain Psychiatric: other - Unresponsive Skin: Decubitus/Ulcer - Stage II sacrum and gluteal area, stage IV right hip area, stage II and III ankles and big toes, warm/dry Procedures Critical Care Time Critical Care Time Total Critical Care Time: 120 min bedside evaluation and treatment excludes procedures (EKG, intubation). Reason for critical care: Sepsis, respiratory failure, repeated evaluations, sedation, stabilization on ventilator Possible complications: hypotension, hypertension, CO, shock, arrhythmias, metabolic acidosis, end organ damage, respiratory failure. Interventions: Sepsis resuscitation, discussion with 2 family members regarding level of care, intubate patient, discussion with lab regarding urinalysis sample, discussion with respiratory therapy regarding ventilator settings, direction of sedation, discussion with admitting physician Course: Patient presented with fever, altered mentation and hypoxia. She is also due for dialysis today. Sepsis evaluation resuscitation. After x-ray returned broad-spectrum antibiotics administered. Lab initially refusing to process urine sample. Discussion leading to culture of straight cath sample. Ventilator not functioning properly until suppression of cough with lidocaine administered by me by the endotracheal tube. Increasing sedation level under my care. Discussion with admitting physician. Consultations: nursing staff, EMS, family, respiratory therapy, lab, admitting physician Performed by: Dr. Child Tolerated well condition = critical Intubation Intubation : Consent: Other - discussed with Neice and "Aunt" Medications: Etomidate Breath Sounds after Intubation: equal - after pull back Intubation Complications: no complications Post Intubation Xray: Yes Attempts: One Patient Tolerated: Well Complications: None Medical Decision Making Diagnostic Impression: Primary Impression: Sepsis Qualified Codes: A41.9 - Sepsis, unspecified organism; R65.20 - Severe sepsis without septic shock Additional Impressions: Pneumonia Qualified Codes: J18.9 - Pneumonia, unspecified organism COVID-19 ruled out by laboratory testing ESRD (end stage renal disease) on dialysis Multiple decubitus ulcers stage II-IV Dementia Qualified Codes: F03.90 - Unspecified dementia without behavioral disturbance ER Course Patient presents with dyspnea fever and altered and altered sensorium however sent due to leukocytosis. Differential includes acute myocardial infarction, sepsis, pneumonia, urinary tract infection, line sepsis, fluid overload amongst others. Patient evaluated with EKG, chest x-ray and labs. Due to the presence of renal failure sepsis resuscitation fluid administration somewhat limited however bolus administered. Tylenol ordered. EKG sinus tachycardia no injury. Chest x-ray with increased pineda and right Vas-Cath. White count elevated. Labs with chronic renal failure. Initial lactic acid normal. Straight cath with pus looking material but no urine. Sepsis re-eval: 945 - BP OK, no longer tachycardic. CXR possible CHF vs infiltrates and pus from straight cath. Antibiotics ordered. Judicious fluid resuscitation as patient has chronic renal failure on dialysis. Patient tiring. Discussion with family regarding intubation. They want everything done. Intubated. Thick green secretions - copious. At this time source of infection appears to be lungs. Interim dosing with Versed. Versed drip titrated upwards for adequate sedation. Cough disrupting vent. Lidocaine ET by me 11:36. Abg with acidosis. Acceptable. Will need dialysis. Discussed with Dr. Eason. 1225 Vital signs improved and no evidence of hypotension. Patient admitted to ICU. Laboratory Tests Test 02/29/20 08:50 02/29/20 12:19 White Blood Count 16.6 K/UL (4.8-10.8) H Red Blood Count 4.32 M/UL (4.20-5.40) Hemoglobin 12.2 G/DL (12.0-16.0) Hematocrit 41.9 % (37.0-47.0) Mean Corpuscular Volume 97 FL (80-99) Mean Corpuscular Hemoglobin 28.3 PG (27.0-31.0) Mean Corpuscular Hemoglobin Concent 29.2 G/DL (32.0-36.0) L Red Cell Distribution Width 18.6 % (11.6-14.8) H Platelet Count 223 K/UL (150-450) Mean Platelet Volume 8.3 FL (6.5-10.1) Neutrophils (%) (Auto) 82.3 % (45.0-75.0) H Lymphocytes (%) (Auto) 7.9 % (20.0-45.0) L Monocytes (%) (Auto) 9.4 % (1.0-10.0) Eosinophils (%) (Auto) 0.3 % (0.0-3.0) Basophils (%) (Auto) 0.2 % (0.0-2.0) Prothrombin Time 10.8 SEC (9.30-11.50) Prothrombin Time INR 1.0 (0.9-1.1) Activated Partial Thromboplast Time 33 SEC (23-33) Sodium Level 137 MMOL/L (136-145) Potassium Level 3.9 MMOL/L (3.5-5.1) Chloride Level 100 MMOL/L (98-107) Carbon Dioxide Level 28 MMOL/L (21-32) Anion Gap 9 mmol/L (5-15) Blood Urea Nitrogen 78 mg/dL (7-18) H Creatinine 4.4 MG/DL (0.55-1.30) H Estimated Glomerular Filtration Rate 11.4 mL/min (>60) Glucose Level 158 MG/DL (74-106) H Lactic Acid Level 1.20 mmol/L (0.4-2.0) Calcium Level 9.5 MG/DL (8.5-10.1) Magnesium Level 2.8 MG/DL (1.8-2.4) H Ferritin 1794 NG/ML (8-388) H Total Bilirubin 0.5 MG/DL (0.2-1.0) Aspartate Amino Transferase (AST) 29 U/L (15-37) Alanine Aminotransferase (ALT) 23 U/L (12-78) Alkaline Phosphatase 103 U/L (46-116) Lactate Dehydrogenase 166 U/L (81-234) Total Creatine Kinase 45 U/L (26-308) Troponin I 0.036 ng/mL (0.000-0.056) C-Reactive Protein, Quantitative 23.6 mg/dL (0.00-0.90) H Pro-B-Type Natriuretic Peptide 1744 pg/mL (0-125) H Total Protein 7.1 G/DL (6.4-8.2) Albumin 2.8 G/DL (3.4-5.0) L Globulin 4.3 g/dL Albumin/Globulin Ratio 0.7 (1.0-2.7) L Lipase 134 U/L (73-393) Arterial Blood pH 7.330 (7.350-7.450) Arterial Blood Partial Pressure CO2 39.4 mmHg (35.0-45.0) Arterial Blood Partial Pressure O2 78.9 mmHg (75.0-100.0) Arterial Blood HCO3 20.3 mmol/L (22.0-26.0) L Arterial Blood Oxygen Saturation 95.7 % (95-100) Arterial Blood Base Excess -5.2 (-2-2) L Van Test Positive Microbiology Date/Time Source Procedure Growth Status 02/29/20 08:50 Nasopharynx SARS-CoV-2 RdRp Gene Assay - Final Complete EKG Diagnostic Results Rate: tachycardiac Rhythm: NSR ST Segments: no acute changes Rhythm Strip Diag. Results EP Interpretation: yes Rhythm: no PVC's, no ectopy, other - ST 112 Chest X-Ray Diagnostic Results Chest X-Ray Diagnostic Results #1: Chest X-Ray Ordered: Yes # of Views/Limited/Complete: 1 View Indication: Shortness of Breath EP Interpretation: Yes Interpretation: no effusion, no pneumothorax, other - Increase pineda bilaterally with Vas-Cath Impression: Other Electronically Signed by: Electronically signed by Melchor Child MD Chest X-Ray Diagnostic Results #2: Chest X-Ray Ordered: Yes # of Views/Limited/Complete: 1 View Indication: Other EP Interpretation: Yes Interpretation: no effusion, no pneumothorax, other - Endotracheal tube appropriately placed with bilateral infiltrates and Vas-Cath Impression: Other Electronically Signed by: Electronically signed by Melchor Child MD Last Vital Signs Date Time Temp Pulse Resp B/P (MAP) Pulse Ox O2 Delivery O2 Flow Rate FiO2 02/29/20 19:39 90 14 45 02/29/20 19:00 102/56 (71) 100 02/29/20 16:00 Endotracheal Tube 02/29/20 16:00 97.3 02/29/20 08:50 2.0 Status: improved Disposition: ADMITTED INPATIENT Condition: Critical Referrals: Meera Frederick MD (PCP) Melchor Child MD Feb 29, 2020 09:51
[2020-02-29] MEDS ORDERED: Midazolam 2mg/2ml Inj IV ONE (10:15)
[2020-02-29] MEDS ORDERED: Acetaminophen 650 MG SUPP RECTAL ONE (10:15)
[2020-02-29] MEDS ORDERED: Etomidate 40mg/20ml Inj IV ONE (10:15)
[2020-02-29] MEDS ORDERED: Midazolam for drip 50 MG in NS 90 ML IV ONE ×2 (10:15→11:00)
--- NOTE | 2020-02-29 10:30 | NUR ---
ED Nurse Note: ERMD aware that pt was straight cathed and urine output 5mL because of dialysis. Small amount of urine sent to lab.
[2020-02-29] MEDS ORDERED: Midazolam for drip 50 MG in NS 90 ML IV SCH ×2 (11:00→11:15)
[2020-02-29] MEDS ORDERED: Midazolam 2mg/2ml Inj IVP ONE (11:00)
--- NOTE | 2020-02-29 11:00 | NUR ---
Pt intubated at 1017. Etomidate 5mL administered at 1015 per ERMD order. Pre-intubation VS HR 95, R 17, 100% 2L NC, 135/62. Intubation is size 7/5 at 23 length. Post-intubation VS are HR 98, R 25, 100% mechanical ventilator. Ventilator settings: AC R 14, TV 450, 45%, and PEEP 5.
[2020-02-29] MEDS ORDERED: Lidocaine 2% 100mg/5ml Carp INJ ONE (11:15)
--- NOTE | 2020-02-29 11:36 | NUR ---
ED Nurse Note: NAYELI administered Lidocaine to pt.
--- NOTE | 2020-02-29 11:39 | Diagnostic Imaging Report ---
EXAM: XR Chest, 1 View CLINICAL HISTORY: S/P INTUB TECHNIQUE: Frontal view of the chest. COMPARISON: Chest radiograph on 02/29/2020 at 903 hours FINDINGS: Hardware: Interval placement of an endotracheal tube which terminates in the region of the right mainstem bronchus. Recommend approximately 3. 5 cm of retraction. Right dual lumen central venous catheter terminates in the region of the right atrium. Lungs/pleura: Increased interstitial opacities in the right lung may represent atelectasis and crowding of bronchovascular structures. Infectious/inflammatory process is not excluded. No pleural effusion or pneumothorax. Heart/mediastinum: Atherosclerotic calcifications in the aorta. Stable borderline size of the cardiac silhouette. Soft tissues: Unremarkable. Bones: No acute fracture. Upper abdomen: Normal. IMPRESSION: 1. Interval placement of an endotracheal tube which terminates in the region of the right mainstem bronchus. Recommend approximately 3.5 cm of retraction. 2. Right dual lumen central venous catheter terminates in the region of the right atrium
--- NOTE | 2020-02-29 12:52 | NUR ---
ED Nurse Note: Pt transferred to ICU with all belongings. No acute distress. Transferred with RT and RN and tech.
--- NOTE | 2020-02-29 13:10 | NUR ---
NURSE NOTES: Patient stable at this time, obtunded. Intubated and vented on ordered settings. Gtube clogged. Will attempt to open. Versed running. Side rails upx2, call light within reach, bed low and locked. Marina with patient.
[2020-02-29] MEDS ORDERED: ARGINAID POWDE1 EACH PO (13:29)
[2020-02-29] MEDS ORDERED: ACETAMINOPHEN325 M1 GT (13:29)
[2020-02-29] MEDS ORDERED: MILK OF MA400 MG/51 GT (13:29)
[2020-02-29] MEDS ORDERED: DULCOLAX10 MG RC (13:29)
--- NOTE | 2020-02-29 13:31 | NUR ---
NURSE NOTES: Otoniel team paged. Awaiting call back. Med recon completed.
[2020-02-29] MEDS ORDERED: Milk of Magnesia 30ml Ud ORAL PRN (14:15)
[2020-02-29] MEDS ORDERED: Albuterol/Ipratropium 3ml neb HHN PRN (14:15)
[2020-02-29] MEDS ORDERED: Midazolam for drip 50 MG in NS 90 ML IV PRN (14:30)
--- NOTE | 2020-02-29 14:37 | Consultation ---
History of Present Illness General Chief Complaint: Abnormal Labs Reason for Consultation: ESRD on HD Present Illness HPI Mrs. Gallagher is a 89F with PMH ESRD on HD, anemia on ESRD, advanced dementia, dysphagia s/p PEG, pressure ulcers and HTN who presents from [facility] for elevated WBC and low grade fever. Upon arrival, patient was found to be hypoxic and unable to protect airway requiring intubation and mechanical ventilation. SBP stable in the high90's. CXR showing pulmonary edema with possible right lower lobe infiltrates. She was mcintosh cultured and started on broad spec coverage. Per ED physician, he discussed with family about goals of care and they wanted full code. Patient with advanced dementia unable to follow any commands. Severe bilateral UE and LE contractures. Patient was scheduled for a AV fistula placement with Dr. Houston in a few days. G tube dependent. She has a right permacatheter and gets her dialysis MWF. Allergies: Coded Allergies: No Known Allergies (Unverified , 06/24/19) Medication History Scheduled Amlodipine Besylate* (Amlodipine Besylate*), 2.5 MG GT DAILY, (Reported) Arginine/Ascorbate Sod/Jenny AC (Arginaid Powder), 1 EACH PO DAILY, (Reported) Carvedilol* (Carvedilol*), 6.25 MG ORAL EVERY 12 HOURS, (Reported) Docusate Sodium* (Docusate Sodium*), 100 MG GT TWICE A DAY, (Reported) Folic Acid* (Folic Acid*), 0.8 MCG ORAL DAILY, (Reported) Gabapentin* (Gabapentin*), 300 MG GT HS, (Reported) Vitamin B Cmplx/Vit C/Folic AC (Nephro-Jenny Tablet), 1 TAB GT DAILY, (Reported) Scheduled PRN Acetaminophen* (Acetaminophen 325MG Tablet*), 650 MG GT Q4H PRN for Mild Pain (Pain Scale 1-3), (Reported) Bisacodyl (Dulcolax), 10 MG RC d PRN for Constipation, (Reported) Magnesium Hydroxide* (Milk Of Magnesia*), 30 ML GT DAILY PRN for Constipation, ( Reported) Oxycodone Hcl/Acetaminophen 10-325* (Oxycodone-Acetaminophen 10-325*), 1 TAB GT Q6H PRN for For Pain, (Reported) Tramadol Hcl* (Ultram*), 50 MG GT Q12HR PRN for For Pain, (Reported) Discontinued Medications Amlodipine Besylate* (Amlodipine Besylate*), 2.5 MG ORAL DAILY, (Reported) Discontinued Reason: Therapy completed Carvedilol* (Carvedilol*), 6.25 MG GT BID, (Reported) Discontinued Reason: Therapy completed Docusate Sodium* (Colace*), 100 MG GT DAILY, (Reported) Discontinued Reason: Therapy completed Gabapentin* (Gabapentin*), 300 MG GT HS, (Reported) Discontinued Reason: Therapy completed Oxycodone Hcl/Acetaminophen 10-325* (Oxycodone-Acetaminophen 10-325*), 1 TAB ORAL Q6H PRN for For Pain, (Reported) Discontinued Reason: Therapy completed Oxycodone Hcl/Acetaminophen 10-325* (Oxycodone-Acetaminophen 10-325*), 1 TAB ORAL Q6H PRN for For Pain, (Reported) Discontinued Reason: Therapy completed Tramadol Hcl* (Ultram*), 50 MG GT BID PRN for For Pain, (Reported) Discontinued Reason: Therapy completed Vitamin B Cmplx/Vit C/Folic AC (Nephro-Jenny Tablet), 1 TAB GT DAILY, (Reported) Discontinued Reason: Therapy completed Zinc Sulfate (Zinc Sulfate*), 220 MG GT DAILY, (Reported) Discontinued Reason: Therapy completed Patient History Healthcare decision maker Resuscitation status Advanced Directive on File Yes Review of Systems ROS Narrative unable to obtain due to AMS Physical Exam General Appearance: cachetic Lines, tubes and drains: central line Neck: non-tender Cardiovascular/Chest: normal peripheral pulses Abdomen: soft Skin Exam: warm/dry Last 24 Hour Vital Signs Date Time Temp Pulse Resp B/P (MAP) Pulse Ox O2 Delivery O2 Flow Rate FiO2 02/29/20 13:09 109 16 100 Mechanical Ventilator 45 02/29/20 13:09 107 16 45 02/29/20 12:52 99.5 99 14 100/54 100 Mechanical Ventilator 45 02/29/20 12:46 99.5 101 14 91/52 100 Mechanical Ventilator 45 02/29/20 12:40 14 Mechanical Ventilator 45 02/29/20 12:25 14 Mechanical Ventilator 45 02/29/20 12:10 14 Mechanical Ventilator 45 02/29/20 11:55 14 Mechanical Ventilator 45 02/29/20 11:40 14 Mechanical Ventilator 45 02/29/20 11:25 14 Mechanical Ventilator 45 02/29/20 11:23 107 23 45 02/29/20 11:05 14 Mechanical Ventilator 45 02/29/20 11:00 99.5 02/29/20 10:25 100.0 102 20 114/62 100 Mechanical Ventilator 45 02/29/20 08:50 100.0 112 22 109/59 98 Nasal Cannula 2.0 02/29/20 08:32 98.4 111 24 104/57 (73) 95 Nasal Cannula 2.0 Laboratory Tests Test 02/29/20 08:50 02/29/20 12:19 White Blood Count 16.6 K/UL (4.8-10.8) H Red Blood Count 4.32 M/UL (4.20-5.40) Hemoglobin 12.2 G/DL (12.0-16.0) Hematocrit 41.9 % (37.0-47.0) Mean Corpuscular Volume 97 FL (80-99) Mean Corpuscular Hemoglobin 28.3 PG (27.0-31.0) Mean Corpuscular Hemoglobin Concent 29.2 G/DL (32.0-36.0) L Red Cell Distribution Width 18.6 % (11.6-14.8) H Platelet Count 223 K/UL (150-450) Mean Platelet Volume 8.3 FL (6.5-10.1) Neutrophils (%) (Auto) 82.3 % (45.0-75.0) H Lymphocytes (%) (Auto) 7.9 % (20.0-45.0) L Monocytes (%) (Auto) 9.4 % (1.0-10.0) Eosinophils (%) (Auto) 0.3 % (0.0-3.0) Basophils (%) (Auto) 0.2 % (0.0-2.0) Prothrombin Time 10.8 SEC (9.30-11.50) Prothromb Time International Ratio 1.0 (0.9-1.1) Activated Partial Thromboplast Time 33 SEC (23-33) Sodium Level 137 MMOL/L (136-145) Potassium Level 3.9 MMOL/L (3.5-5.1) Chloride Level 100 MMOL/L (98-107) Carbon Dioxide Level 28 MMOL/L (21-32) Anion Gap 9 mmol/L (5-15) Blood Urea Nitrogen 78 mg/dL (7-18) H Creatinine 4.4 MG/DL (0.55-1.30) H Estimat Glomerular Filtration Rate 11.4 mL/min (>60) Glucose Level 158 MG/DL (74-106) H Lactic Acid Level 1.20 mmol/L (0.4-2.0) Calcium Level 9.5 MG/DL (8.5-10.1) Magnesium Level 2.8 MG/DL (1.8-2.4) H Ferritin 1794 NG/ML (8-388) H Total Bilirubin 0.5 MG/DL (0.2-1.0) Aspartate Amino Transf (AST/SGOT) 29 U/L (15-37) Alanine Aminotransferase (ALT/SGPT) 23 U/L (12-78) Alkaline Phosphatase 103 U/L (46-116) Lactate Dehydrogenase 166 U/L (81-234) Total Creatine Kinase 45 U/L (26-308) Troponin I 0.036 ng/mL (0.000-0.056) C-Reactive Protein, Quantitative 23.6 mg/dL (0.00-0.90) H Pro-B-Type Natriuretic Peptide 1744 pg/mL (0-125) H Total Protein 7.1 G/DL (6.4-8.2) Albumin 2.8 G/DL (3.4-5.0) L Globulin 4.3 g/dL Albumin/Globulin Ratio 0.7 (1.0-2.7) L Lipase 134 U/L (73-393) Arterial Blood pH 7.330 (7.350-7.450) Arterial Blood Partial Pressure CO2 39.4 mmHg (35.0-45.0) Arterial Blood Partial Pressure O2 78.9 mmHg (75.0-100.0) Arterial Blood HCO3 20.3 mmol/L (22.0-26.0) L Arterial Blood Oxygen Saturation 95.7 % (95-100) Arterial Blood Base Excess -5.2 (-2-2) L Van Test Positive Microbiology Date/Time Source Procedure Growth Status 02/29/20 12:14 Rectum Received 02/29/20 08:50 Nasopharynx SARS-CoV-2 RdRp Gene Assay - Final Complete Height (Feet): 5 Weight (Pounds): 130 Medications Current Medications Medications (Trade) Dose Ordered Sig/Joan Route PRN Reason Start Time Stop Time Status Last Admin Dose Admin Acetaminophen (Tylenol) 650 mg Q4H PRN ORAL Fever 02/29/20 14:15 03/30/20 14:14 UNV Albuterol/ Ipratropium (Albuterol/ Ipratropium) 3 ml Q4HR PRN HHN Shortness of Breath 02/29/20 14:15 03/05/20 14:14 UNV Bisacodyl (Dulcolax) 10 mg DAILYPRN PRN RECTAL Constipation 02/29/20 14:15 05/29/20 14:14 UNV Dextrose (Dextrose 50%) 25 ml Q30M PRN IV Hypoglycemia 02/29/20 14:15 05/29/20 14:14 UNV Dextrose (Dextrose 50%) 50 ml Q30M PRN IV Hypoglycemia 02/29/20 14:15 05/29/20 14:14 UNV Heparin Sodium (Porcine) (Heparin 5000 units/ml) 5,000 units EVERY 12 HOURS SUBQ 02/29/20 21:00 04/14/20 20:59 UNV Magnesium Hydroxide (Mom) 30 ml HSPRN PRN ORAL Constipation 02/29/20 14:15 03/30/20 14:14 UNV Midazolam HCl 50 mg/Sodium Chloride 100 ml @ 0 mls/hr Q24H PRN IV Agitation 02/29/20 14:30 03/02/20 14:29 Ondansetron HCl (Zofran) 4 mg Q6H PRN IVP Nausea & Vomiting 02/29/20 14:15 03/30/20 14:14 UNV Pantoprazole (Protonix) 40 mg DAILY ORAL 03/01/20 09:00 03/31/20 08:59 UNV Piperacillin Sod/ Tazobactam Sod 3.375 gm/Sodium Chloride 110 ml @ 27.5 mls/hr EVERY 8 HOURS IVPB 02/29/20 22:00 03/05/20 21:59 UNV Vancomycin HCl (Vanco pharmacy to dose) 1 ea DAILY PRN MISC Per rx protocol 02/29/20 14:30 03/30/20 14:29 UNV Assessment/Plan Diagnosis [place] I: # Acute Hypoxic Respiratory Failure s/p Mechanical Ventilation 2/2 Pulmonary Edema vs PNA vs encephalopathy # Sirs (Leukocytosis + Tachycardia) w/ possible PNA source # ?CAP # Pulmonary Edema 2/2 ESRD # ESRD on HD # Advanced Dementia # Dysphagia s/p Gtube dependence # 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 Feb 29, 2020 14:37
--- NOTE | 2020-02-29 14:50 | History and Physical ---
History of Present Illness General Reason for Hospitalization: Abnormal Labs Present Illness HPI Mrs. 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 Upon arrival, patient was found to be hypoxic and unable to protect airway requiring intubation and mechanical ventilation. SBP stable in the high90's. CXR showing pulmonary edema with possible right lower lobe infiltrates. She was mcintosh cultured and started on broad spec coverage. Per ED physician, he discussed with family about goals of care and they wanted full code. Patient with advanced dementia unable to follow any commands. Severe bilateral UE and LE contractures. Patient was scheduled for a AV fistula placement with Dr. Houston in a few days. G tube dependent. She has a right permacatheter and gets her dialysis MWF. 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, advanced dementia, dysphagia s/p PEG, pressure ulcers and HTN Fx: unable to elicit information due to dementia, intubation Social: unable to elicit information due to dementia, intubation Allergies: Coded Allergies: No Known Allergies (Unverified , 06/24/19) COVID-19 Screening Contact w/high risk pt: No Recent Travel to affected area: No Experienced COVID-19 symptoms?: No Medication History Scheduled Amlodipine Besylate* (Amlodipine Besylate*), 2.5 MG GT DAILY, (Reported) Arginine/Ascorbate Sod/Jenny AC (Arginaid Powder), 1 EACH PO DAILY, (Reported) Carvedilol* (Carvedilol*), 6.25 MG ORAL EVERY 12 HOURS, (Reported) Docusate Sodium* (Docusate Sodium*), 100 MG GT TWICE A DAY, (Reported) Folic Acid* (Folic Acid*), 0.8 MCG ORAL DAILY, (Reported) Gabapentin* (Gabapentin*), 300 MG GT HS, (Reported) Vitamin B Cmplx/Vit C/Folic AC (Nephro-Jenny Tablet), 1 TAB GT DAILY, (Reported) Scheduled PRN Acetaminophen* (Acetaminophen 325MG Tablet*), 650 MG GT Q4H PRN for Mild Pain (Pain Scale 1-3), (Reported) Bisacodyl (Dulcolax), 10 MG RC d PRN for Constipation, (Reported) Magnesium Hydroxide* (Milk Of Magnesia*), 30 ML GT DAILY PRN for Constipation, (Reported) Oxycodone Hcl/Acetaminophen 10-325* (Oxycodone-Acetaminophen 10-325*), 1 TAB GT Q6H PRN for For Pain, (Reported) Tramadol Hcl* (Ultram*), 50 MG GT Q12HR PRN for For Pain, (Reported) Discontinued Medications Amlodipine Besylate* (Amlodipine Besylate*), 2.5 MG ORAL DAILY, (Reported) Discontinued Reason: Therapy completed Carvedilol* (Carvedilol*), 6.25 MG GT BID, (Reported) Discontinued Reason: Therapy completed Docusate Sodium* (Colace*), 100 MG GT DAILY, (Reported) Discontinued Reason: Therapy completed Gabapentin* (Gabapentin*), 300 MG GT HS, (Reported) Discontinued Reason: Therapy completed Oxycodone Hcl/Acetaminophen 10-325* (Oxycodone-Acetaminophen 10-325*), 1 TAB ORAL Q6H PRN for For Pain, (Reported) Discontinued Reason: Therapy completed Oxycodone Hcl/Acetaminophen 10-325* (Oxycodone-Acetaminophen 10-325*), 1 TAB ORAL Q6H PRN for For Pain, (Reported) Discontinued Reason: Therapy completed Tramadol Hcl* (Ultram*), 50 MG GT BID PRN for For Pain, (Reported) Discontinued Reason: Therapy completed Vitamin B Cmplx/Vit C/Folic AC (Nephro-Jenyn Tablet), 1 TAB GT DAILY, (Reported) Discontinued Reason: Therapy completed Zinc Sulfate (Zinc Sulfate*), 220 MG GT DAILY, (Reported) Discontinued Reason: Therapy completed Patient History Healthcare decision maker Resuscitation status Advanced Directive on File Yes Review of Systems ROS Narrative unable to attain full ROS due to patient dementia, encephalopathy and mechanical ventilation Physical Exam General Appearance: other - does not follow commands, no distress Lines, tubes and drains: endotracheal tube, dialysis access, hargrove cath HEENT: normocephalic, atraumatic, PERRL Neck: non-tender, supple Respiratory/Chest: crackles/rales, rhonchi - bilaterally, other - mechanical ventialtion Cardiovascular/Chest: normal rate, regular rhythm, no JVD Abdomen: non tender, soft, no mass, other - Gtube Genitourinary/Rectal: hargrove Extremities: other - severe contractures of UE and LE Skin Exam: normal pigmentation, warm/dry Neurologic: other - intubated on versced difficult to attain neuro exam Musculoskeletal: atrophy Last 24 Hour Vital Signs Date Time Temp Pulse Resp B/P (MAP) Pulse Ox O2 Delivery O2 Flow Rate FiO2 02/29/20 13:09 109 16 100 Mechanical Ventilator 45 02/29/20 13:09 107 16 45 02/29/20 12:52 99.5 99 14 100/54 100 Mechanical Ventilator 45 02/29/20 12:46 99.5 101 14 91/52 100 Mechanical Ventilator 45 02/29/20 12:40 14 Mechanical Ventilator 45 02/29/20 12:25 14 Mechanical Ventilator 45 02/29/20 12:10 14 Mechanical Ventilator 45 02/29/20 11:55 14 Mechanical Ventilator 45 02/29/20 11:40 14 Mechanical Ventilator 45 02/29/20 11:25 14 Mechanical Ventilator 45 02/29/20 11:23 107 23 45 02/29/20 11:05 14 Mechanical Ventilator 45 02/29/20 11:00 99.5 02/29/20 10:25 100.0 102 20 114/62 100 Mechanical Ventilator 45 02/29/20 08:50 100.0 112 22 109/59 98 Nasal Cannula 2.0 02/29/20 08:32 98.4 111 24 104/57 (73) 95 Nasal Cannula 2.0 Laboratory Tests Test 02/29/20 08:50 02/29/20 12:19 White Blood Count 16.6 K/UL (4.8-10.8) H Red Blood Count 4.32 M/UL (4.20-5.40) Hemoglobin 12.2 G/DL (12.0-16.0) Hematocrit 41.9 % (37.0-47.0) Mean Corpuscular Volume 97 FL (80-99) Mean Corpuscular Hemoglobin 28.3 PG (27.0-31.0) Mean Corpuscular Hemoglobin Concent 29.2 G/DL (32.0-36.0) L Red Cell Distribution Width 18.6 % (11.6-14.8) H Platelet Count 223 K/UL (150-450) Mean Platelet Volume 8.3 FL (6.5-10.1) Neutrophils (%) (Auto) 82.3 % (45.0-75.0) H Lymphocytes (%) (Auto) 7.9 % (20.0-45.0) L Monocytes (%) (Auto) 9.4 % (1.0-10.0) Eosinophils (%) (Auto) 0.3 % (0.0-3.0) Basophils (%) (Auto) 0.2 % (0.0-2.0) Prothrombin Time 10.8 SEC (9.30-11.50) Prothromb Time International Ratio 1.0 (0.9-1.1) Activated Partial Thromboplast Time 33 SEC (23-33) Sodium Level 137 MMOL/L (136-145) Potassium Level 3.9 MMOL/L (3.5-5.1) Chloride Level 100 MMOL/L (98-107) Carbon Dioxide Level 28 MMOL/L (21-32) Anion Gap 9 mmol/L (5-15) Blood Urea Nitrogen 78 mg/dL (7-18) H Creatinine 4.4 MG/DL (0.55-1.30) H Estimat Glomerular Filtration Rate 11.4 mL/min (>60) Glucose Level 158 MG/DL (74-106) H Lactic Acid Level 1.20 mmol/L (0.4-2.0) Calcium Level 9.5 MG/DL (8.5-10.1) Magnesium Level 2.8 MG/DL (1.8-2.4) H Ferritin 1794 NG/ML (8-388) H Total Bilirubin 0.5 MG/DL (0.2-1.0) Aspartate Amino Transf (AST/SGOT) 29 U/L (15-37) Alanine Aminotransferase (ALT/SGPT) 23 U/L (12-78) Alkaline Phosphatase 103 U/L (46-116) Lactate Dehydrogenase 166 U/L (81-234) Total Creatine Kinase 45 U/L (26-308) Troponin I 0.036 ng/mL (0.000-0.056) C-Reactive Protein, Quantitative 23.6 mg/dL (0.00-0.90) H Pro-B-Type Natriuretic Peptide 1744 pg/mL (0-125) H Total Protein 7.1 G/DL (6.4-8.2) Albumin 2.8 G/DL (3.4-5.0) L Globulin 4.3 g/dL Albumin/Globulin Ratio 0.7 (1.0-2.7) L Lipase 134 U/L (73-393) Arterial Blood pH 7.330 (7.350-7.450) Arterial Blood Partial Pressure CO2 39.4 mmHg (35.0-45.0) Arterial Blood Partial Pressure O2 78.9 mmHg (75.0-100.0) Arterial Blood HCO3 20.3 mmol/L (22.0-26.0) L Arterial Blood Oxygen Saturation 95.7 % (95-100) Arterial Blood Base Excess -5.2 (-2-2) L Van Test Positive Microbiology Date/Time Source Procedure Growth Status 02/29/20 12:14 Rectum Received 02/29/20 08:50 Nasopharynx SARS-CoV-2 RdRp Gene Assay - Final Complete Height (Feet): 5 Weight (Pounds): 130 Medications Current Medications Medications (Trade) Dose Ordered Sig/Joan Route PRN Reason Start Time Stop Time Status Last Admin Dose Admin Acetaminophen (Tylenol) 650 mg Q4H PRN ORAL Fever 02/29/20 14:15 03/30/20 14:14 Albuterol/ Ipratropium (Albuterol/ Ipratropium) 3 ml Q4H PRN HHN Shortness of Breath 02/29/20 14:15 03/05/20 14:14 Bisacodyl (Dulcolax) 10 mg DAILYPRN PRN RECTAL Constipation 02/29/20 14:15 05/29/20 14:14 Dextrose (Dextrose 50%) 25 ml Q30M PRN IV Hypoglycemia 02/29/20 14:15 05/29/20 14:14 Dextrose (Dextrose 50%) 50 ml Q30M PRN IV Hypoglycemia 02/29/20 14:15 05/29/20 14:14 Heparin Sodium (Porcine) (Heparin 5000 units/ml) 5,000 units EVERY 12 HOURS SUBQ 02/29/20 21:00 04/14/20 20:59 Magnesium Hydroxide (Mom) 30 ml HSPRN PRN ORAL Constipation 02/29/20 14:15 03/30/20 14:14 Midazolam HCl 50 mg/Sodium Chloride 100 ml @ 0 mls/hr Q24H PRN IV Agitation 02/29/20 14:30 03/02/20 14:29 Norepinephrine Bitartrate 4 mg/ Dextrose 250 ml @ 0 mls/hr Q24H PRN IV For hypotension 02/29/20 14:45 03/03/20 14:44 Ondansetron HCl (Zofran) 4 mg Q6H PRN IVP Nausea & Vomiting 02/29/20 14:15 03/30/20 14:14 Pantoprazole (Protonix) 40 mg DAILY ORAL 03/01/20 09:00 03/31/20 08:59 Piperacillin Sod/ Tazobactam Sod 3.375 gm/Sodium Chloride 110 ml @ 27.5 mls/hr Q12HR IVPB 02/29/20 21:00 03/07/20 20:59 Vancomycin HCl (Vanco pharmacy to dose) 1 ea DAILY PRN MISC Per rx protocol 02/29/20 14:30 03/30/20 14:29 UNV Assessment/Plan Diagnosis [place] I: Mrs. 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 A: # Acute Hypoxic Respiratory Failure s/p Mechanical Ventilation 2/2 Pulmonary Edema vs PNA vs encephalopathy # Sirs (Leukocytosis + Tachycardia) w/ possible PNA source # ?CAP # Pulmonary Edema 2/2 ESRD # ESRD on HD # Advanced Dementia # Dysphagia s/p Gtube dependence # Chronic Pressure Ulcers on LE # Essential HTN P: - hemodynamically stable - keep MAP > 65 - s/p IVF resuscitation - Levophed if does not respond to volume resuscitation - vent management per Pulm - CXR reviewed showing pulmonary edema w/ possible right sided infiltrates - inflammatory markers elevated - broad spec abx vanc, zosyn - f/u MRSA, BC, UC - further chart review from previous admissions indicated multiple UTI infections as well - f/u ECHO - BNP chronically elevated from previous records - HD today per nephro - wound care - consulted Dr. Martínez, Pulm, recs appreciated - consulted Dr. Callaway, ID, recs appreciated - consulted Dr. Oconnor, Nephro, recs appreciated - CM CODE: Full GI: Protonix Diet: Tube feeds DVT: heparin 5000U BID Dispo: pending respiratory failure stabilization, sepsis work up In addition to the usual care above I spent additional time reviewing records in the EMR and paper charts including physician documentation, nursing documentation, lab results, imaging and clinical documentation. Total time included was 45 min. Time spent on this encounter was 85 minutes which included 45 minutes of counseling and care coordination. I discussed with the nurse at bedside. Time of note may not reflect time patient was seen. Ashwin Eason D.O Feb 29, 2020 14:50
--- NOTE | 2020-02-29 14:57 | NUR ---
NURSE NOTES: Dialysis nurse notified of stat dialysis order. POA called and message left for consent.
--- NOTE | 2020-02-29 15:00 | NUR ---
NURSE NOTES: MD at bedside aware of hypotension. Patient now stabilized after Versed was stopped.
--- NOTE | 2020-02-29 15:12 | NUR ---
NURSE NOTES: Telephone consent obtained from Saurabh De La Cruz (LIAN). Dialysis nurse again contacted and infromed.
--- NOTE | 2020-02-29 17:00 | NUR ---
NURSE NOTES: Patient stable. No s/sx of pain or distress. ETT suctioned often as patient has a lot of secretions. Wound care performed.
--- NOTE | 2020-02-29 17:30 | NUR ---
NURSE NOTES: spoke with Doctor Oconnor over the phone, stated pts power of attorney recruiter Jami De La Cruz wanted pt DNR/ DNI and does not want Hemo Dialysis for pt. Doctor Oconnor is aware of pts DNR/ DNI status and power of attorney recruiter refusal of pts Hemo dialysis. Addendum: 02/29/20 at 2009 by AMANDA KIRKPATRICK RN WRONG TIME.
--- NOTE | 2020-02-29 18:30 | NUR ---
NURSE NOTES: Feeding started as ordered.
--- NOTE | 2020-02-29 18:38 | Diagnostic Imaging Report ---
EXAM: XR Chest, 1 View CLINICAL HISTORY: TUBE PLCMT TECHNIQUE: Frontal view of the chest. COMPARISON: No relevant prior studies available. FINDINGS: Lungs: Interval worsening in diffuse interstitial pulmonary edema, now with a possible alveolar component. Pleural space: Query small left pleural effusion. No pneumothorax. Heart: Mild cardiomegaly. Mediastinum: Unremarkable. Bones/joints: Unremarkable. Tubes, lines and devices: Interval intubation with an endotracheal tube overlying the trachea and terminating between the level of the clavicular heads. Right subclavian double-lumen catheter terminates in the right atrium, stable. IMPRESSION: Interval intubation with an endotracheal tube overlying the trachea and terminating between the level of the clavicular heads. Interval worsening in pulmonary edema.
--- NOTE | 2020-02-29 19:15 | NUR ---
NURSE NOTES: pt report received from Joi Strauss RN. pt remains stable. pt is obtunded neuro villagran. pt is on cardiac cath lab technologist showing NSR, no cardiac abnormalities noted. pt is oral tube intubated 2L sating 99%, O2, no acute sings symptoms of acute resp distress. pt bed is low, locked, armed, call light within reach, will follow plan of care.
--- NOTE | 2020-02-29 19:30 | NUR ---
NURSE NOTES: Spoke with Doctor Oconnor over the phone, stated pts power of criminal attorney Jami De La Cruz wanted pt DNR/ DNI and does not want Hemo Dialysis for pt. Doctor Oconnor is aware of pts DNR/ DNI status and power of criminal attorney refusal of pts Hemo dialysis.
--- NOTE | 2020-02-29 19:30 | NUR ---
NURSE HAND-OFF REPORT: Latest Vital Signs: Temperature 97.3 , Pulse 90 , B/P 102 /56 , Respiratory Rate 14 , O2 SAT 100 , Endotracheal Tube, O2 Flow Rate . Vital Sign Comment: STABLE EKG Rhythm: Sinus Rhythm Rhythm change?: N MD Notified?: - MD Response: Latest Schreiber Fall Score: 50 Fall Risk: High Risk Safety Measures: Call light Within Reach, Bed Alarm Zone 1, Side Rails Side Rails x2, Bed position Low and Locked. Fall Precautions: Door Sign Report given to HYUN Franklin. Plan of care endorsed.
--- NOTE | 2020-02-29 19:30 | NUR ---
NURSE NOTES: Patient sister/POA Jami De La Cruz came to visit to patient. During her visit she expressed she has made the decision after seeing her sister. She does not want to put her through all of this. She wishes to have the ETT removed and to make her a DNR/DNI with comfort focused care. Explained to her in detail the meaning of code status change. She agrees. Primary RN Rigoberto Strickland notified at this time and is to notify MD Oconnor and fito MARADIAGA signed and placed in the chart. Sister asked for a copy which was also provided to her at this time.
--- NOTE | 2020-02-29 19:33 | NUR ---
NURSE NOTES: called doctor brandy emergent line. left a call back number to ICU unit and a message stating pts power of ip attorney Jami De La Cruz wants the pt DNR/ DNI.
--- NOTE | 2020-02-29 19:35 | NUR ---
NURSE NOTES: called doctor Danette emergent line. spoke with doctor over the phone stating pts power of felt hat pouncing operator hand Jami Jono wants the pt DNR/ DNI. Doctor Danette is aware of pts Power of felt hat pouncing operator hand wishes.
--- NOTE | 2020-02-29 20:00 | NUR ---
NURSE NOTES: RT Jose Juan advanced Oral tube from 19CM lip line to 21CM lip line per Doctors orders. follow up chest X ray to confirm replacement has been ordered.
[2020-02-29] MEDS ORDERED: Piperacillin/Tazobactam 3.375 GM in NS 110 ML IVPB SCH ×2 (21:00→22:00)
[2020-02-29] MEDS ORDERED: Heparin 5000 units/ml inj SUBQ SCH (21:00)
--- NOTE | 2020-02-29 21:45 | Diagnostic Imaging Report ---
EXAM: XR Chest, 1 View CLINICAL HISTORY: TUBE PLCMT TECHNIQUE: Frontal view of the chest. COMPARISON: No relevant prior studies available. FINDINGS: Lungs: See below. Pleural space: No pneumothorax. Stable small left pleural effusion. Heart: Cardiomegaly and pulmonary edema. Mediastinum: Unremarkable. Bones/joints: Unremarkable. Tubes, lines and devices: Endotracheal tube is in good position terminating approximately 3.5 cm above the level of the maikol. Stable right subclavian dual lumen catheter terminating in the right atrium. IMPRESSION: ET tube and right subclavian dual-lumen catheter remain in place. No pneumothorax.
--- NOTE | 2020-02-29 22:00 | NUR ---
NURSE NOTES: pt turned, cleaned and repositioned. no stool noted. optifoam in place on pts pressure points.
[2020-03-01] VITALS (18 sets, daily range): BP systolic 101–140; BP diastolic 41–70
--- NOTE | 2020-03-01 00:10 | NUR ---
NURSE NOTES: assessed pts vent and vent settings. vent settings as per doctor order. preformed oral suctioning, clear sputum noted.
--- NOTE | 2020-03-01 02:05 | NUR ---
NURSE NOTES: cleaned, repositioned pt. no BM noted. preformed oral care.
--- NOTE | 2020-03-01 04:15 | NUR ---
NURSE NOTES: assessed pt. vital signs stable. pt does not appear to be in distress at the moment.
[2020-03-01 05:06] LABS: BASOPHILS % (AUTO) 0.3 % (0.0-2.0); EOSINOPHILS % (AUTO) 1.1 % (0.0-3.0); HEMATOCRIT 36.6 % (37.0-47.0); HEMOGLOBIN 10.8 G/DL (12.0-16.0); MEAN CORPUSCULAR VOLUME 95 FL (80-99); MONOCYTES % (AUTO) 9.6 % (1.0-10.0); NEUTROPHILS % (AUTO) 74.9 % (45.0-75.0); PLATELET COUNT 216 K/UL (150-450); RED BLOOD COUNT 3.85 M/UL (4.20-5.40); RED CELL DISTRIBUTION WIDTH 18.5 % (11.6-14.8); WHITE BLOOD COUNT 12.7 K/UL (4.8-10.8)
[2020-03-01 05:31] LABS: CALCIUM 9.4 MG/DL (8.5-10.1); CREATININE 4.9 MG/DL (0.55-1.30); PHOSPHORUS 3.3 MG/DL (2.5-4.9); POTASSIUM 4.1 MMOL/L (3.5-5.1)
--- NOTE | 2020-03-01 07:30 | NUR ---
NURSE NOTES: Received report from HYUN Franklin. The patient is resting on the bed without acute distress or shortness of breath. The patient is obtunded but opening eyes with tactile stimuli. Communication made with facial expression and body movement. SR to ST w/ HR of 90-100s on the child monitor. The patient is orally intubated as follows and oxygen saturation is 100%: ETT 7.5, Lip line @ 21, AC 14, TV 450, FiO2 45%, and PEEP 5. The patient has GT that is intact and patent and running Nephro @ 30mL/hr and no residual noted. The patient supposed to have HD per order but was not done since Breezy HERMAN, does not want the patient to have HD. Skin issue noted and dressing intact. The patient has R chest permacath for HD access, L hand 20G R FA 20G PIVs, and RAVIN old AV fistula. PIVs are intact and patent. Per SOLN, Breezy HERMAN, would like the patient to be on comfort care and will follow up with Dr. Eason and Dr. Samaniego. The patient's bed in the lowest position, call light in reach, and fall and aspiration precaution reinforced. IV site intact and patent. Will follow up the order and lab. Will closely monitor the patient. Will continue plan of care. Addendum: 03/01/20 at 1756 by Maksim Foster RN Jami Yip
--- NOTE | 2020-03-01 07:30 | NUR ---
NURSE HAND-OFF REPORT: Latest Vital Signs: Temperature 98.2 , Pulse 95 , B/P 113 /48 , Respiratory Rate 17 , O2 SAT 100 , Endotracheal Tube, O2 Flow Rate . Vital Sign Comment: [Stable] EKG Rhythm: Sinus Rhythm Rhythm change?: N MD Notified?: - MD Response: Latest Schreiber Fall Score: 50 Fall Risk: High Risk Safety Measures: Call light Within Reach, Bed Alarm Zone 3, Side Rails Side Rails x3, Bed position Low and Locked. Fall Precautions: Yellow Socks Yellow Gown Report given to [Isabela PURVIS].
[2020-03-01] MEDS ORDERED: Vancomycin 1gm/D5W 275ml IVPB ONE ×2 (08:00)
--- NOTE | 2020-03-01 08:21 | NUR ---
NURSE NOTES: Called Drs. Frederick and Danette regarding compassionate extubation. Need orders for comfort meds for patient. LM. All orders have been dc'd.
--- NOTE | 2020-03-01 08:30 | NUR ---
NURSE NOTES: CRN called Dr. Samaniego and Dr. Eason for clarification of the order for comfort care. Per Dr. Samaniego, he will come to the hospital to review the record and will talk to DPOA and family member before ordering comfort care. Will closely monitor the patient. Will continue plan of care.
--- NOTE | 2020-03-01 09:35 | Diagnostic Imaging Report ---
EXAM: XR Chest, 1 View CLINICAL HISTORY: INFECT TECHNIQUE: Frontal view of the chest. COMPARISON: Chest x-rays dated 02/29/20 FINDINGS: Lungs: Unchanged consolidation in the medial left lung base, which may represent atelectasis versus pneumonia. Pulmonary vascular congestion, unchanged. Pleural space: Small left pleural effusion, not significantly changed. Heart: Unremarkable. No cardiomegaly. Mediastinum: Unremarkable. Bones/joints: Unremarkable. Vasculature: Atherosclerotic calcifications are noted within the aortic arch. Tubes, lines and devices: Endotracheal tube tip 3.3 cm above the maikol. Stable positioning of a dual lumen right subclavian central venous catheter with the tip in the right atrium. IMPRESSION: 1. No significant interval change from the prior chest x-ray. Pulmonary vascular congestion with small left pleural effusion. 2. Unchanged consolidation in the medial left lung base, which may represent atelectasis versus pneumonia.
--- NOTE | 2020-03-01 10:00 | NUR ---
NURSE NOTES: The patient is resting comfortably without acute distress or shortness of breath. Vital signs stable. Breezy HERMAN, at the bedside with the patient. Will continue plan of care. Addendum: 03/01/20 at 1459 by Maksim Foster RN Jami Yip
--- NOTE | 2020-03-01 10:28 | Consultation ---
Consult Note Consult Note DATE OF CONSULTATION: 03/01/2020 PULMONARY CONSULTATION CONSULTING PHYSICIAN: Abrahan Samaniego MD. HISTORY OF PRESENT ILLNESS: This is an 89-year-old female with a history of hypertension, ESRD on dialysis, chronic dysphagia who was brought to the hospital with leucocytosis and fever. She is a long-term resident. In the ED, she was deemed full code per family and intubated for airway protection. Her imaging studies havve shown pneumonia. Family now at bedside plus DPOA and requesting terminal extuabtion Currently, patient is unable to provide any further history. PAST MEDICAL HISTORY: ESRD on dialysis, chronic dysphagia, decubitus ulcers, hypertension. SOCIAL HISTORY: She is a long-term resident. HOME MEDICATIONS: Reviewed, reconciled in chart. PHYSICAL EXAMINATION: GENERAL: Reveals an 89-year-old female. Intubated HEENT: Unremarkable. CHEST: Clear breath sounds bilaterally. ABDOMEN: Soft. G-tube is noted. EXTREMITIES: There is no edema. NEUROLOGIC: Nonfocal. LABORATORY DATA: Reviewed above IMPRESSION: 1. Respiratory failure 2. Pneumonia 3. ESRD, on dialysis. 4. Rule out COVID-19. DISCUSSION: Continue current medications and care. Await COVID-19 test. Blood transfusion prn. Empiric antibiotics. Hemodialysis. Will discuss with family. If consensus is to terminally extubate; will document and allow. Abrahan Samaniego M.D. Abrahan Samaniego MD Mar 01, 2020 10:28
--- NOTE | 2020-03-01 10:30 | NUR ---
NURSE NOTES: Dr. Samaniego, primary RN, CRN, DPMANUEL, Breezy Burrows, and other family members at the bedside, and thorough discussion done regarding plan of care. Per VIRGIL and family's wishes, compassionate extubation ordered by Dr. Samaniego. Called RT for compassionate extubation. Will closely monitor the patient. Will continue plan of care. Addendum: 03/01/20 at 1459 by Maksim Foster RN and VIRGIL, Jami De La Cruz
--- NOTE | 2020-03-01 10:40 | Consultation ---
Consult Note Consult Note DISCUSSION Discussed with DPOA Alis De La Cruz and Sandrita Omer They understand that removing ETT will very likely cause Ms Gallagher to .they reiterated her poor quality of life and that she never wanted life support Will extubate terminally Allow nutrition and abx per family Morphine prn Discussion witnessed by Abrahan Lee MD, MD Mar 01, 2020 10:40
[2020-03-01] MEDS ORDERED: LORazepam Inj 2mg/ml 1ml ONE (10:48)
--- NOTE | 2020-03-01 10:50 | NUR ---
NURSE NOTES: Compassionate extubation per Dr. Samaniego's order. Dr. Samaniego at the bedside during extubation. The patient got placed on simple mask 3L. The patient seems comfortable without acute distress or shortness of breath. Will closely monitor the patient. Will continue plan of care. Addendum: 03/01/20 at 1503 by Maksim Foster RN Clarification made with Dr. Samaniego, VIRGIL, and family members. Per order, tube feeding only but no antibiotics or further treatment. PRN medications for comfort got ordered by Dr. Eason. Will closely monitor the patient. Will continue plan of care.
--- NOTE | 2020-03-01 10:55 | NUR ---
RESPIRATORY NOTES Per Dr. Samaniego's verbal orders, PT has been extubated @1055. PT is now on comfort measures and has been placed on 5L simple mask. PT does not exhibit any current signs of respiratory distress. HYUN Mar present during the extubation. Will continue to monitor.
--- NOTE | 2020-03-01 11:12 | NUR ---
NURSE NOTES: Patient has been compassionately extubated with family at bedside. Patient is comfortable without any distress. Patient will be monitored for any distress. Comfort meds have been ordered for patient. Patient will remain with feeds however, no medications will be continued per family wishes. Transfer orders have been instituted for MS.
[2020-03-01] MEDS ORDERED: LORazepam Inj 2mg/ml 1ml IV SCH (11:15)
--- NOTE | 2020-03-01 11:43 | General Progress Note ---
Subjective ROS Limited/Unobtainable: Yes - advanced dementia Allergies: Coded Allergies: No Known Allergies (Unverified , 06/24/19) Subjective family called and at bedside and has decided to make patient comfort care, She is now extubated. Dr. Samaniego discussed with family and made her comfort care. Objective Last 24 Hour Vital Signs Date Time Temp Pulse Resp B/P (MAP) Pulse Ox O2 Delivery O2 Flow Rate FiO2 03/01/20 11:18 65 22 120/70 100 03/01/20 09:10 111 15 45 03/01/20 07:00 95 17 113/48 (69) 100 03/01/20 06:45 98 14 45 03/01/20 06:30 98 21 03/01/20 06:00 98 15 123/49 (73) 100 03/01/20 05:10 98 15 45 03/01/20 05:00 92 17 116/50 (72) 100 03/01/20 04:00 Endotracheal Tube 03/01/20 04:00 87 03/01/20 04:00 98.2 93 15 120/57 (78) 100 03/01/20 04:00 45 03/01/20 03:15 94 14 45 03/01/20 03:00 88 14 101/41 (61) 100 03/01/20 02:00 88 18 114/54 (74) 100 03/01/20 01:50 87 14 45 03/01/20 01:00 90 12 110/48 (68) 100 03/01/20 00:00 89 03/01/20 00:00 98.0 85 14 105/46 (65) 100 03/01/20 00:00 Endotracheal Tube 03/01/20 00:00 45 02/29/20 23:20 87 14 45 02/29/20 23:00 89 14 101/45 (63) 100 02/29/20 22:00 88 14 104/45 (64) 100 02/29/20 21:51 88 14 45 02/29/20 21:00 90 14 99/46 (63) 100 02/29/20 20:00 45 02/29/20 20:00 97.7 90 14 115/50 (71) 100 02/29/20 20:00 79 02/29/20 20:00 Endotracheal Tube 02/29/20 19:39 90 14 45 02/29/20 19:00 88 14 102/56 (71) 100 02/29/20 18:00 89 18 112/61 (78) 100 02/29/20 17:00 90 14 128/66 (86) 100 02/29/20 16:30 84 14 45 02/29/20 16:30 45 02/29/20 16:30 87 24 130/67 (88) 100 02/29/20 16:00 Endotracheal Tube 02/29/20 16:00 97.3 79 14 107/55 (72) 100 02/29/20 15:29 79 02/29/20 15:10 85 14 45 02/29/20 15:00 78 14 111/57 (75) 100 02/29/20 14:15 82 15 98/52 (67) 100 02/29/20 14:06 83 14 83/42 (56) 100 02/29/20 14:04 84 17 78/24 (42) 100 02/29/20 14:00 85 14 76/54 (61) 100 02/29/20 13:58 84 14 76/60 (65) 100 02/29/20 13:51 85 14 77/58 (64) 99 02/29/20 13:48 86 15 72/53 (59) 99 02/29/20 13:48 45 02/29/20 13:46 85 14 83/52 (62) 99 02/29/20 13:45 85 15 86/59 (68) 99 02/29/20 13:30 86 14 91/49 (63) 99 02/29/20 13:10 97.6 86 14 90/52 (65) 99 02/29/20 13:10 86 02/29/20 13:10 Mechanical Ventilator 02/29/20 13:09 109 16 100 Mechanical Ventilator 45 02/29/20 13:09 107 16 45 02/29/20 12:52 99.5 99 14 100/54 100 Mechanical Ventilator 45 02/29/20 12:46 99.5 101 14 91/52 100 Mechanical Ventilator 45 02/29/20 12:40 14 Mechanical Ventilator 45 02/29/20 12:25 14 Mechanical Ventilator 45 02/29/20 12:10 14 Mechanical Ventilator 45 02/29/20 11:55 14 Mechanical Ventilator 45 02/29/20 11:40 14 Mechanical Ventilator 45 Intake and Output 02/29/20 03/01/20 19:00 07:00 Intake Total 470.0 ml Output Total 10 ml Balance -10 ml 470.0 ml Intake IV Total 110.0 ml Tube Feeding 360 ml Output Urine Total 10 ml Laboratory Tests 02/29/20 12:19: Arterial Blood pH 7.330L, Arterial Blood Partial Pressure CO2 39.4, Arterial Blood Partial Pressure O2 78.9, Arterial Blood HCO3 20.3L, Arterial Blood Oxygen Saturation 95.7, Arterial Blood Base Excess -5.2L, Van Test Positive 03/01/20 04:00: White Blood Count 12.7H, Red Blood Count 3.85L, Hemoglobin 10.8L, Hematocrit 36.6L, Mean Corpuscular Volume 95, Mean Corpuscular Hemoglobin 28.0, Mean Corpuscular Hemoglobin Concent 29.4L, Red Cell Distribution Width 18.5H, Platelet Count 216, Mean Platelet Volume 8.6, Neutrophils (%) (Auto) 74.9, Lymphocytes (%) (Auto) 14.0L, Monocytes (%) (Auto) 9.6, Eosinophils (%) (Auto) 1.1, Basophils (%) (Auto) 0.3, Sodium Level 139, Potassium Level 4.1, Chloride Level 103, Carbon Dioxide Level 26, Anion Gap 10, Blood Urea Nitrogen 93H, Creatinine 4.9H, Estimat Glomerular Filtration Rate 10.1, Glucose Level 121H, Calcium Level 9.4, Phosphorus Level 3.3, Magnesium Level 2.6H, C-Reactive Protein, Quantitative 23.2H, Random Vancomycin Level 14.0, Hepatitis B Surface Antigen [Pending] Height (Feet): 5 Height (Inches): 0.00 Weight (Pounds): 130 General Appearance: other - made comfort care, on morphine gtt EENT: PERRL/EOMI Cardiovascular: normal rate, regular rhythm Respiratory/Chest: other - extubated Abdomen: soft Neurologic: other - comfort care Assessment/Plan Assessment/Plan: Mrs. 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 A: # Acute Hypoxic Respiratory Failure s/p Mechanical Ventilation 2/2 Pulmonary Edema vs PNA vs encephalopathy # Sirs (Leukocytosis + Tachycardia) w/ possible PNA source # ?CAP # Pulmonary Edema 2/2 ESRD # ESRD on HD # Advanced Dementia # Dysphagia s/p Gtube dependence # Chronic Pressure Ulcers on LE # Essential HTN P: - patient has been made comfort care by machine rebuilder Dr. Biggs. Discussion was made with POA. Patient now extubated. Morphine, ativan prn. Time spent on this encounter was 31 minutes which included 16 minutes of counseling and care coordination. I discussed with the nurse at bedside. Time of note may not reflect time patient was seen. Ashwin Eason D.O Mar 01, 2020 11:43
[2020-03-01] MEDS: Morphine Sulfate 2mg/ml Inj(IV/IM USE ONLY) IVP PRN (12:36)
--- NOTE | 2020-03-01 12:36 | NUR ---
NURSE NOTES: Morphine administered for pain control based on FLACC score. The patient tolerated well. Will closely monitor the patient. Will continue plan of care.
[2020-03-01] MEDS ORDERED: LORazepam Inj 2mg/ml 1ml IVP PRN (12:45)
--- NOTE | 2020-03-01 14:00 | NUR ---
NURSE NOTES: The patient is resting comfortably without acute distress or shortness of breath. Will closely monitor the patient. Will continue plan of care.
--- NOTE | 2020-03-01 14:51 | Cardiology Report ---
APPROVED REPORT EXAM: Two-dimensional and M-mode echocardiogram with Doppler and color Doppler. INDICATION Congestive Heart Failure M-Mode DIMENSIONS IVSd0.9 (0.7-1.1cm)Left Atrium (MM)2.7 (1.6-4.0cm) LVDd5.4 (3.5-5.6cm)Aortic Root2.7 (2.0-3.7cm) PWd0.9 (0.7-1.1cm)Aortic Cusp Exc.1.6 (1.5-2.0cm) IVSs1.6 cmEPSS0.6 (>1.0cm) LVDs3.6 (2.5-4.0cm) PWs1.6 cm <Conclusion> Technically difficult study due to pt's resistance. Normal left ventricular chamber size, systolic function and wall motion to extent visualized. Left ventricular ejection fraction estimated to be 60-65 %. No evidence of left ventricular hypertrophy. Anterior Echo-free space, may be due to pericardial fat or effusion. All other cardiac chamber sizes are within normal limits. Mild focal aortic valve sclerosis with adequate cusp excursion. Mildly thickened mitral valve leaflets with normal excursion. Mild mitral annulus and aortic root calcification. Normal pulmonic valve structure. Normal tricuspid valve structure. Subcostal views are not obtainable due to pt's GI tube. A color flow and spectral Doppler study was performed and revealed: Trace aortic regurgitation. Trace mitral regurgitation. Mitral diastolic velocities suggest reduced left ventricular relaxation c/w mild LV diastolic dysfunction (Grade I ). Mild to moderate tricuspid regurgitation. Tricuspid systolic velocities suggests peak right ventricular systolic pressure of 46 mmHg, consistent with borderline moderate pulmonary hypertension. Pulmonic regurgitation present.
--- NOTE | 2020-03-01 15:20 | NUR ---
NURSE NOTES: Report given to HYUN Pierre @ [facility]. The patient got safely transferred to [facility] @ 414-1. The patient is stable at this time.
[2020-03-01] MEDS ORDERED: Etomidate 40mg/20ml Inj IV ONE (15:22)
--- NOTE | 2020-03-01 15:30 | NUR ---
NURSE NOTES: Report given to Kristi @ [facility] unit, and the patient got safely transferred to [facility]. Belonging (blanket) with the patient. Family members at the bedside. The patient is stable at this time. Endorsed plan of care.
--- NOTE | 2020-03-01 16:00 | NUR ---
NURSE NOTES: Received pt transferred from ICU, report given by HYUN Allen. Patient resting in bed, with simple mask, O2 @ 3LPM. With IV access on left hand and right forearm. Gtube feeding being infused Nepro continuously @ 30 cc per hour. Patient has right chest permacath. Call light within reach. Bed in lowest, lock engaged and alarm on. Will continue monitoring pt and follow up with the plan of care.
--- NOTE | 2020-03-01 17:58 | Nephrology Progress Note ---
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 # Essential HTN Per wishes of the family wont proceed with HD plan to trasition to comfort care per family wishes Subjective ROS Limited/Unobtainable: Yes Objective Objective Last 24 Hour Vital Signs Date Time Temp Pulse Resp B/P (MAP) Pulse Ox O2 Delivery O2 Flow Rate FiO2 03/01/20 16:00 97.1 79 19 140/70 (93) 97 03/01/20 15:00 101 25 110/55 (73) 100 03/01/20 14:00 99 22 129/59 (82) 100 03/01/20 13:00 100 23 102/48 (66) 100 03/01/20 12:00 98.3 102 23 128/52 (77) 100 03/01/20 12:00 3.0 03/01/20 12:00 Simple Mask 3.0 03/01/20 12:00 102 03/01/20 11:50 26 26 132/50 100 03/01/20 11:18 65 22 120/70 100 03/01/20 11:00 98 25 130/53 (78) 100 03/01/20 10:00 112 15 120/50 (73) 100 03/01/20 09:10 111 15 45 03/01/20 09:00 116 18 130/56 (80) 100 03/01/20 08:00 Endotracheal Tube 03/01/20 08:00 45 03/01/20 08:00 98 03/01/20 08:00 98.0 98 15 121/51 (74) 100 03/01/20 07:00 95 17 113/48 (69) 100 03/01/20 06:45 98 14 45 03/01/20 06:30 98 21 03/01/20 06:00 98 15 123/49 (73) 100 03/01/20 05:10 98 15 45 03/01/20 05:00 92 17 116/50 (72) 100 03/01/20 04:00 Endotracheal Tube 03/01/20 04:00 87 03/01/20 04:00 98.2 93 15 120/57 (78) 100 03/01/20 04:00 45 03/01/20 03:15 94 14 45 03/01/20 03:00 88 14 101/41 (61) 100 03/01/20 02:00 88 18 114/54 (74) 100 03/01/20 01:50 87 14 45 03/01/20 01:00 90 12 110/48 (68) 100 03/01/20 00:00 89 03/01/20 00:00 98.0 85 14 105/46 (65) 100 03/01/20 00:00 Endotracheal Tube 03/01/20 00:00 45 02/29/20 23:20 87 14 45 02/29/20 23:00 89 14 101/45 (63) 100 02/29/20 22:00 88 14 104/45 (64) 100 02/29/20 21:51 88 14 45 02/29/20 21:00 90 14 99/46 (63) 100 02/29/20 20:00 45 02/29/20 20:00 97.7 90 14 115/50 (71) 100 02/29/20 20:00 79 02/29/20 20:00 Endotracheal Tube 02/29/20 19:39 90 14 45 02/29/20 19:00 88 14 102/56 (71) 100 02/29/20 18:00 89 18 112/61 (78) 100 Intake and Output 02/29/20 03/01/20 19:00 07:00 Intake Total 550.0 ml Output Total 10 ml Balance -10 ml 550.0 ml Intake Free Water 50 ml IV Total 110.0 ml Tube Feeding 390 ml Output Urine Total 10 ml Laboratory Tests 03/01/20 04:00: White Blood Count 12.7H, Red Blood Count 3.85L, Hemoglobin 10.8L, Hematocrit 36.6L, Mean Corpuscular Volume 95, Mean Corpuscular Hemoglobin 28.0, Mean Co rpuscular Hemoglobin Concent 29.4L, Red Cell Distribution Width 18.5H, Platelet Count 216, Mean Platelet Volume 8.6, Neutrophils (%) (Auto) 74.9, Lymphocytes (%) (Auto) 14.0L, Monocytes (%) (Auto) 9.6, Eosinophils (%) (Auto) 1.1, Basophils (%) (Auto) 0.3, Sodium Level 139, Potassium Level 4.1, Chloride Level 103, Carbon Dioxide Level 26, Anion Gap 10, Blood Urea Nitrogen 93H, Creatinine 4.9H, Estimat Glomerular Filtration Rate 10.1, Glucose Level 121H, Calcium Level 9.4, Phosphorus Level 3.3, Magnesium Level 2.6H, C-Reactive Protein, Quantitative 23.2H, Random Vancomycin Level 14.0, Hepatitis B Surface Antigen [Pending] Height (Feet): 5 Height (Inches): 0.00 Weight (Pounds): 130 General Appearance: lethargic, confused EENT: normal ENT inspection Neck: non-tender Cardiovascular: normal peripheral pulses, normal rate, regular rhythm Respiratory/Chest: chest wall non-tender, rhonchi - bilaterally Neurologic: unresponsive Rory Oconnor M.D. Mar 01, 2020 17:58
--- NOTE | 2020-03-01 18:30 | NUR ---
NURSE NOTES: changed all dressings, taken picture and documented at physical assessment: sacral, right hip area, right malleolus, bilateral heel and bilateral big toes.
--- NOTE | 2020-03-01 19:21 | NUR ---
NURSE HAND-OFF: Important Events on Shift:[transfer to med/surg] Patient Status: [stable/DNR, DNI, comfort measures] Diet: [Nepro at 30cc/hr GTF] Pending Orders: [] Pending Results/Labs:[] Pending MD notification:[] Latest Vital Signs: Temperature 97.1 , Pulse 79 , B/P 140 /70 , Respiratory Rate 19 , O2 SAT 97 , Simple Mask, O2 Flow Rate 3.0 . Vital Sign Comment: [] Latest Schreiber Fall Score: 50 Fall Risk: High Risk Safety Measures: Call light Within Reach, Bed Alarm Zone 1, Side Rails Side Rails x1, Bed position Low and Locked. Fall Precautions: Yellow Socks Yellow Gown Door Sign Patient Fall Education Report given to [HYUN Watkins].
--- NOTE | 2020-03-01 19:27 | NUR ---
NURSE NOTES: Patient resting in bed, with simple mask, O2 @ 3LPM. With IV access on left hand and right forearm. With Gtube connected to Nepro continuously @ 30 cc per hour. With right chest permacath. Call light in reach. Bed in lowest, lock engaged and alarm on. Will continue plan of care.
[2020-03-02] VITALS: BP 124/65
[2020-03-02 04:00] VITALS: BP 148/73
--- NOTE | 2020-03-02 06:51 | NUR ---
NURSE HAND-OFF: Important Events on Shift: comfort care Patient Status: Diet: Pending Orders: Pending Results/Labs: Pending MD notification: Latest Vital Signs: Temperature 97.7 , Pulse 120 , B/P 148 /73 , Respiratory Rate 25 , O2 SAT 100 , Simple Mask, O2 Flow Rate 3.0 . Vital Sign Comment: Latest Schreiber Fall Score: 50 Fall Risk: High Risk Safety Measures: Call light Within Reach, Bed Alarm Zone 1, Side Rails Side Rails x2, Bed position Low and Locked. Fall Precautions: Yellow Socks Yellow Gown Door Sign Patient Fall Education
--- NOTE | 2020-03-02 07:44 | NUR ---
HAND-OFF: Report given to HYUN Lackey.
--- NOTE | 2020-03-02 07:56 | NUR ---
NURSE NOTES: Received report from HYUN Watkins. Patient observed to be asleep, currently on simple mask 3L, no s/sx of sob/distress, no sSx of discomfort. Patient with Gtube, no running feeding. Gtube inplace and intact. Patient with [place] permacath. On t200 mattress, IV site located on LH20 and RFA20 asymptomatic, inplace,and intact. Bed placed on lowest and locked, call light placed within reach and will continue to provide comfort care and monitor for any changes in condition.
[2020-03-02 08:00] VITALS: BP 151/84
--- NOTE | 2020-03-02 09:34 | General Progress Note ---
Subjective ROS Limited/Unobtainable: Yes - Advanced dementia, comfort care Allergies: Coded Allergies: No Known Allergies (Unverified , 06/24/19) Subjective Patient transferred from the ICU, comfort care. Morphine and Ativan in place. All fluids, antibiotics, diet has been discontinued Objective Last 24 Hour Vital Signs Date Time Temp Pulse Resp B/P (MAP) Pulse Ox O2 Delivery O2 Flow Rate FiO2 03/02/20 04:00 97.7 120 25 148/73 (98) 100 03/02/20 00:00 98.1 100 23 124/65 (84) 99 03/01/20 20:00 97.9 102 21 128/62 (84) 99 03/01/20 18:30 Simple Mask 3.0 03/01/20 16:00 97.1 79 19 140/70 (93) 97 03/01/20 15:00 101 25 110/55 (73) 100 03/01/20 14:00 99 22 129/59 (82) 100 03/01/20 13:00 100 23 102/48 (66) 100 03/01/20 12:00 98.3 102 23 128/52 (77) 100 03/01/20 12:00 3.0 03/01/20 12:00 Simple Mask 3.0 03/01/20 12:00 102 03/01/20 11:50 26 26 132/50 100 03/01/20 11:18 65 22 120/70 100 03/01/20 11:00 98 25 130/53 (78) 100 03/01/20 10:00 112 15 120/50 (73) 100 Intake and Output 03/01/20 03/02/20 19:00 07:00 Intake Total 570 ml Output Total 200 ml Balance 570 ml -200 ml Intake Free Water 150 ml Tube Feeding 420 ml Output Urine Total 200 ml # Voids 1 # Bowel Movements 1 Height (Feet): 5 Height (Inches): 0.00 Weight (Pounds): 130 General Appearance: no apparent distress Cardiovascular: normal rate, regular rhythm Respiratory/Chest: lungs clear Abdomen: soft Neurologic: unresponsive Skin: normal pigmentation Assessment/Plan Assessment/Plan: Mrs. 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 A: # Acute Hypoxic Respiratory Failure s/p Mechanical Ventilation 2/2 Pulmonary Edema vs PNA vs encephalopathy # Sirs (Leukocytosis + Tachycardia) w/ possible PNA source # ?CAP # Pulmonary Edema 2/2 ESRD # ESRD on HD # Advanced Dementia # Dysphagia s/p Gtube dependence # Chronic Pressure Ulcers on LE # Essential HTN P: - patient has been made comfort care by lease picker Dr. Biggs. Discussion was made with POA. Patient now extubated. Morphine, ativan prn. Patient out of the ICU, and MedSurg. Time spent on this encounter was 31 minutes which included 16 minutes of counseling and care coordination. I discussed with the nurse at bedside. Time of note may not reflect time patient was seen. Ashwin Eason D.O Mar 02, 2020 09:34
--- NOTE | 2020-03-02 10:02 | Pulmonology Progress Note ---
Subjective ROS Limited/Unobtainable: Yes - Advanced dementia, comfort care Interval Events: Now on P4 Constitutional: Reports: no symptoms HEENT: Repors: no symptoms Respiratory: Reports: no symptoms Cardiovascular: Reports: no symptoms Gastrointestinal/Abdominal: Reports: no symptoms Genitourinary: Reports: no symptoms Neurologic: Reports: no symptoms Allergies: Coded Allergies: No Known Allergies (Unverified , 06/24/19) Objective Last 24 Hour Vital Signs Date Time Temp Pulse Resp B/P (MAP) Pulse Ox O2 Delivery O2 Flow Rate FiO2 03/02/20 09:00 Simple Mask 3.0 03/02/20 08:00 98.3 116 20 151/84 (106) 100 03/02/20 04:00 97.7 120 25 148/73 (98) 100 03/02/20 00:00 98.1 100 23 124/65 (84) 99 03/01/20 20:00 97.9 102 21 128/62 (84) 99 03/01/20 18:30 Simple Mask 3.0 03/01/20 16:00 97.1 79 19 140/70 (93) 97 03/01/20 15:00 101 25 110/55 (73) 100 03/01/20 14:00 99 22 129/59 (82) 100 03/01/20 13:00 100 23 102/48 (66) 100 03/01/20 12:00 98.3 102 23 128/52 (77) 100 03/01/20 12:00 3.0 03/01/20 12:00 Simple Mask 3.0 03/01/20 12:00 102 03/01/20 11:50 26 26 132/50 100 03/01/20 11:18 65 22 120/70 100 03/01/20 11:00 98 25 130/53 (78) 100 Intake and Output 03/01/20 03/02/20 19:00 07:00 Intake Total 570 ml Output Total 200 ml Balance 570 ml -200 ml Intake Free Water 150 ml Tube Feeding 420 ml Output Urine Total 200 ml # Voids 1 # Bowel Movements 1 General Appearance: no acute distress HEENT: normocephalic Respiratory: chest wall non-tender Cardiovascular: normal peripheral pulses, normal rate Abdomen: soft, non tender Microbiology Date/Time Source Procedure Growth Status 02/29/20 12:14 Rectum Received 02/29/20 08:50 Nasopharynx SARS-CoV-2 RdRp Gene Assay - Final Complete Current Medications Medications (Trade) Dose Ordered Sig/Joan Route PRN Reason Start Time Stop Time Status Last Admin Dose Admin Lorazepam (Ativan 2mg/ml 1ml) 0.5 mg Q2HR PRN IVP AGITATION 03/01/20 12:45 03/08/20 12:44 Morphine Sulfate (Morphine Sulfate) 2 mg Q4H PRN IVP For Pain 03/01/20 11:15 03/08/20 11:14 03/01/20 12:36 Assessment/Plan Assessment/Plan IMPRESSION: 1. Respiratory failure; terminally extubated 2. Pneumonia 3. ESRD, on dialysis. DISCUSSION: Continue current medications and care. Negative COVID-19 test. DNR/DNI Morphine/Ativan Ross Nina Omar Syed MD Mar 02, 2020 10:02
[2020-03-02 12:00] VITALS: BP 139/73
[2020-03-02] MEDS: Morphine Sulfate 2mg/ml Inj(IV/IM USE ONLY) IVP PRN (13:50)
[2020-03-02 16:00] VITALS: BP 144/83
--- NOTE | 2020-03-02 16:21 | Nephrology Progress Note ---
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 # Essential HTN Per wishes of the family wont proceed with HD plan to trasition to comfort care per family wishes Subjective ROS Limited/Unobtainable: Yes Objective Objective Last 24 Hour Vital Signs Date Time Temp Pulse Resp B/P (MAP) Pulse Ox O2 Delivery O2 Flow Rate FiO2 03/02/20 12:00 98.3 100 19 139/73 (95) 98 03/02/20 09:00 Simple Mask 3.0 03/02/20 08:00 98.3 116 20 151/84 (106) 100 03/02/20 04:00 97.7 120 25 148/73 (98) 100 03/02/20 00:00 98.1 100 23 124/65 (84) 99 03/01/20 20:00 97.9 102 21 128/62 (84) 99 03/01/20 18:30 Simple Mask 3.0 Intake and Output 03/01/20 03/02/20 19:00 07:00 Intake Total 570 ml Output Total 200 ml Balance 570 ml -200 ml Intake Free Water 150 ml Tube Feeding 420 ml Output Urine Total 200 ml # Voids 1 # Bowel Movements 1 Height (Feet): 5 Height (Inches): 0.00 Weight (Pounds): 130 Rory Oconnor M.D. Mar 02, 2020 16:21
--- NOTE | 2020-03-02 16:27 | NUR ---
*-*DISCHARGE PLANNING*-* PATIENT HAS BEEN ACCEPTED BACK TO: [facility] P: [phone] ROOM# 30.B
--- NOTE | 2020-03-02 16:41 | NUR ---
CASE MANAGEMENT:INITIAL REVIEW 03/01/20 89 YR OLD FEMALE BIBA FROM [facility] CC;ABNORMAL LABS SI;SEPSIS. ESRD ON HD. PNEUMONIA. 100.0 112 22 109/59 100% MECH VENT (ORALLY INTUBATED IN ED) WBC 16.6 BUN 78 CR 4.4 MAG 2.8 FERRITIN 1794 CRP 23.6 BNP 1744 ALB 2.8 COVID RAPID ~ NEGATIVE CXR ~ There is unchanged mild pulmonary venous congestion with development of mild infiltrate in the lateral aspect of the left mid lung likely representing asymmetric pulmonary edema. Progress films are recommended to exclude developing pneumonia. REPEAT CXR ~ 1. Interval placement of an endotracheal tube which terminates in the region of the right mainstem bronchus. Recommend approximately 3.5 cm of retraction. 2. Right dual lumen central venous catheter terminates in the region of the right atrium IS; IVF NS BOLUS ZOSYN IV VANCOMYCIN IV LEVAQUIN IV TYLENOL GT VERSED IV AMIDATE IN LIDOCAINE INJ ADMITTED TO ICU 02/29/20 @ 1521 ICU STATUS CASE MANAGEMENT:REVIEW 03/02/20 SI;ACUTE RESPIRATORY FAILURE. SIRS. 98.3 120 25 151/84 98% 3L SM IS;MORPHINE IV Q4 PRN ATIVAN IV Q2 PRN MED SURG STATUS DCP;FROM [facility]
--- NOTE | 2020-03-02 19:07 | NUR ---
NURSE HAND-OFF: Important Events on Shift:COMFORT CARE Patient Status: stable Diet: none Pending Orders: n/a Pending Results/Labs:n/a Pending MD notification:n/a Latest Vital Signs: Temperature 98.0 , Pulse 112 , B/P 144 /83 , Respiratory Rate 19 , O2 SAT 100 , Simple Mask, O2 Flow Rate 3.0 . Vital Sign Comment: stable Latest Schreiber Fall Score: 50 Fall Risk: High Risk Safety Measures: Call light Within Reach, Bed Alarm Zone 1, Side Rails Side Rails x2, Bed position Low and Locked. Fall Precautions: Yellow Socks Yellow Gown Door Sign Patient Fall Education Report given to HYUN Yanes.
--- NOTE | 2020-03-02 19:18 | NUR ---
Received report from Darya PURVIS.The patient is non-verbal, basically on comfort care and is on 3 liters of oxygen via simple mask well tolerated. The patient was noted with a Right chest PermCath for dialysis. She also has an old R upper arm AV fistular that was previously use for dialysis as indicated. The patient was noted with a RFA 20 G, LEFT HAND 20g IV line that is patent and asymptomatic.The bed in low level, alarm is on and the bedside rails is up x2. Call light within easy reach. Will continue to monitor
[2020-03-02 20:00] VITALS: BP 108/50
[2020-03-03] VITALS: BP 115/50
[2020-03-03 04:00] VITALS: BP 128/68
--- NOTE | 2020-03-03 05:51 | NUR ---
NURSE NOTES: The patient remained on oxygen @ 3 liters via simple mask and was suction PRN as indicated.She was able repositioned q 2hrs and is clean and dry. will continue to monitor.
[2020-03-03 06:00] VITALS: BP 128/80
--- NOTE | 2020-03-03 07:00 | NUR ---
NURSE HAND-OFF: Important Events on Shift:Pending Discharge, suction 4 times last night Patient Status: Diet: Pending Orders: Pending Results/Labs: Pending MD notification: Latest Vital Signs: Temperature 98.5 , Pulse 74 , B/P 128 /80 , Respiratory Rate 20 , O2 SAT 97 , Simple Mask, O2 Flow Rate 3.0 . Vital Sign Comment: Latest Schreiber Fall Score: 50 Fall Risk: High Risk Safety Measures: Call light Within Reach, Bed Alarm Zone 1, Side Rails Side Rails x2, Bed position Low and Locked. Fall Precautions: Yellow Socks Yellow Gown Door Sign Patient Fall Education Report given to .
--- NOTE | 2020-03-03 07:21 | NUR ---
NURSE NOTES: Received report from HYUN Yanes. Patient observed to be sleeping with HOB elevated, currently seen with simple mask on running at 3L/min. Patient observed to be breathing with excess effort. With GTube clamped, inplace, and patent. IV site located on RFA 20 and LH20 both lines asymptomatic, inplace and intact. Patient placed on comfort care. Bed placed on lowest and locked, call light placed within reach and will continue to monitor for any changes in condition.
[2020-03-03 08:00] VITALS: BP 153/78
--- NOTE | 2020-03-03 09:35 | NUR ---
NURSE NOTES:Skin/Wound assessment Right trochanter pressure ulcer stage 4 6.5x2.5x2.6 undermining 12 to 5 1.2cm 90%pink granulation 10 % yellow slough moderate amount serosanguineous drainage ,alejandra wound intact ,alginate and Optifoam applied.Right heel pressure ulcer stage UTD 4.0x4.5x0.2 90% hard yellow/red slough macerated edges moderate amount serosanguineous drainage Thera honey and Optifoam applied.Left heel pressure ulcer stage DTI 6.5x3.0x0.0 dark purple in color Cavalon and Optifoam applied.Left lateral foot pressure ulcer stage DTI 1.8x1.5x0.0 dark purple Cavalon and Optifoam applied.Left great toe 1.3x1.3x0.1 callus noted.Spoke with RN taking care of the patient about assessment and recommend wound physician consult.
--- NOTE | 2020-03-03 09:41 | Pulmonology Progress Note ---
Subjective ROS Limited/Unobtainable: Yes Interval Events: Now on 4E Constitutional: Reports: no symptoms HEENT: Repors: no symptoms Respiratory: Reports: no symptoms Cardiovascular: Reports: no symptoms Gastrointestinal/Abdominal: Reports: no symptoms Genitourinary: Reports: no symptoms Neurologic: Reports: no symptoms Allergies: Coded Allergies: No Known Allergies (Unverified , 06/24/19) Objective Last 24 Hour Vital Signs Date Time Temp Pulse Resp B/P (MAP) Pulse Ox O2 Delivery O2 Flow Rate FiO2 03/03/20 06:00 98.5 74 20 128/80 (96) 97 03/03/20 04:00 98.5 74 20 128/68 (88) 98 03/03/20 00:00 98.9 89 20 115/50 (71) 98 03/02/20 21:00 Simple Mask 3.0 03/02/20 20:00 98.4 96 20 108/50 (69) 99 03/02/20 16:00 98.0 112 19 144/83 (103) 100 03/02/20 12:00 98.3 100 19 139/73 (95) 98 Intake and Output 03/02/20 03/03/20 19:00 07:00 # Bowel Movements 1 1 General Appearance: no acute distress HEENT: normocephalic Respiratory: chest wall non-tender Cardiovascular: normal peripheral pulses, normal rate Abdomen: soft, non tender Microbiology Date/Time Source Procedure Growth Status 02/29/20 12:15 Rectum VRE Culture - Final Enterococcus Faecalis - Vre Complete 02/29/20 12:14 Rectum Received 02/29/20 12:14 Nasal Nares MRSA Culture - Final NO METHICILLIN RESISTANT STAPH AUREUS... Complete 02/29/20 10:30 Straight Cath Urine Culture - Preliminary Gram Negative Jef Resulted Current Medications Medications (Trade) Dose Ordered Sig/Joan Route PRN Reason Start Time Stop Time Status Last Admin Dose Admin Lorazepam (Ativan 2mg/ml 1ml) 0.5 mg Q2HR PRN IVP AGITATION 03/01/20 12:45 03/08/20 12:44 Morphine Sulfate (Morphine Sulfate) 2 mg Q4H PRN IVP For Pain 03/01/20 11:15 03/08/20 11:14 03/02/20 13:50 Assessment/Plan Assessment/Plan IMPRESSION: 1. Respiratory failure; terminally extubated 2. Pneumonia 3. ESRD, on dialysis. DISCUSSION: Continue current medications and care. Negative COVID-19 test. DNR/DNI Morphine/Ativan Ross Nina Omar Syed MD Mar 03, 2020 09:41
[2020-03-03] MEDS ORDERED: ACETAMINOPHEN325 M1 ORAL (11:04)
[2020-03-03 12:00] VITALS: BP 148/67
[2020-03-03] MEDS ORDERED: ATIVAN2 MG/ML IVP (12:21)
[2020-03-03] MEDS ORDERED: MORPHINE 22 MG/1 ML IVP (12:21)
--- NOTE | 2020-03-03 12:33 | Discharge Instructions ---
Discharge Instructions Discharge Instructions Services at Discharge: other - comfort care Activity: as tolerated For Congestive Heart Failure Reminder Report to your physician any weight gain of 5 pounds or more in one week. Leonardo Fagan M.D. Mar 03, 2020 12:33
--- NOTE | 2020-03-03 13:30 | Nephrology Progress Note ---
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 # Essential HTN Per wishes of the family wont proceed with HD plan to trasition to comfort care per family wishes Objective Objective Last 24 Hour Vital Signs Date Time Temp Pulse Resp B/P (MAP) Pulse Ox O2 Delivery O2 Flow Rate FiO2 03/03/20 12:00 97.4 99 19 148/67 (94) 100 03/03/20 09:00 Simple Mask 3.0 03/03/20 08:00 98.0 92 20 153/78 (103) 100 03/03/20 06:00 98.5 74 20 128/80 (96) 97 03/03/20 04:00 98.5 74 20 128/68 (88) 98 03/03/20 00:00 98.9 89 20 115/50 (71) 98 03/02/20 21:00 Simple Mask 3.0 03/02/20 20:00 98.4 96 20 108/50 (69) 99 03/02/20 16:00 98.0 112 19 144/83 (103) 100 Intake and Output 03/02/20 03/03/20 19:00 07:00 # Bowel Movements 1 1 Height (Feet): 5 Height (Inches): 0.00 Weight (Pounds): 130 Rory Oconnor M.D. Mar 03, 2020 13:30
[2020-03-03] MEDS ORDERED: D5 1/2NS 1000ml IV ONE (14:04)
[2020-03-03] MEDS ORDERED: NS 275ml ONE (14:04)
[2020-03-03] MEDS ORDERED: Tubing IV Secondary IV ONE (14:04)
[2020-03-03] MEDS ORDERED: Tubing IV Blood Pump IV ONE (14:04)
--- NOTE | 2020-03-03 14:42 | NUR ---
*-*DISCHARGE PLANNED*-* PATIENT HAS BEEN ACCEPTED AND WILL BE DISCHARGED BACK TO: [facility] P: [phone] FOR NURSE TO NURSE REPORT ROOM# 30.[facility] TRANSPORTATION SET FOR 3:40PM S/W [facility] [id number] S/W PATIENTS [facility], WHO IS IN AGREEMENT WITH DISCHARGE PLAN.
[2020-03-03 16:00] VITALS: BP 131/77
--- NOTE | 2020-03-03 16:15 | Discharge Summary ---
Discharge Summary Hospital Course Date of Admission Feb 29, 2020 at 09:09 Date of Discharge Mar 03, 2020 Admitting Diagnosis sepsis Reason for Hospitalization: sepsis HPI Jeanna Gallagher is a 89 year old female who was admitted on Feb 29, 2020 at 09:09 for Sepsis Mrs. 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 Upon arrival, patient was found to be hypoxic and unable to protect airway requiring intubation and mechanical ventilation. SBP stable in the high90's. CXR showing pulmonary edema with possible right lower lobe infiltrates. She was mcintosh cultured and started on broad spec coverage. Per ED physician, he discussed with family about goals of care and they wanted full code. Patient with advanced dementia unable to follow any commands. Severe bilateral UE and LE contractures. Patient was scheduled for a AV fistula placement with Dr. Tk purvis in a few days. G tube dependent. She has a right permacatheter and gets her dialysis MWF. Consultations Nephrology, Dr. Oconnor Pulmonology, Dr. Samaniego Hospital Course Hospital Course: Patient was found to have likely pneumonia based on chest imaging. Patient was initially in ICU and stabilized, then after goals of care discussion with family, was transitioned to comfort care and had terminal extubation with no plans to escalate care. Patient then discharged back to her SNF Exam on day of discharge: General Appearance: no apparent distress, on oxygen mask lying in bed Cardiovascular: normal rate, regular rhythm Respiratory/Chest: lungs clear Abdomen: soft Neurologic: unresponsive Skin: normal pigmentation Discharge Medications New Medications: Lorazepam (Lorazepam) 2 Mg/1 Ml Syringe 0.5 MG IVP Q2HR PRN for 14 Days, MG Morphine Sulfate* (Morphine Sulfate*) 2 Mg/1 Ml Cartridge 2 MG IVP Q4H PRN for 14 Days, MG Continued Medications: Acetaminophen* (Acetaminophen 325MG Tablet*) 325 Mg Tablet 650 MG GT Q4H PRN for Mild Pain (Pain Scale 1-3), TAB Acetaminophen* (Acetaminophen 325MG Tablet*) 325 Mg Tablet 650 MG ORAL Q6H PRN for Temp >100.5, TAB Oxycodone Hcl/Acetaminophen 10-325* (Oxycodone-Acetaminophen 10-325*) 1 Each Tablet 1 TAB GT Q6H PRN for Severe Pain (8-9), #10 TAB 0 Refills Tramadol Hcl* (Ultram*) 50 Mg Tablet 50 MG GT Q12HR PRN for For Pain, #12 TAB 0 Refills Discontinued Medications: Amlodipine Besylate* (Amlodipine Besylate*) 2.5 Mg Tablet 2.5 MG GT DAILY for htn, TAB Arginine/Ascorbate Sod/Jenny AC (Arginaid Powder) 1 Each Powd.pack 1 EACH PO DAILY for Supplement, PACK Bisacodyl (Dulcolax) 10 Mg Supp.rect 10 MG RC d PRN for Constipation, SUPP Carvedilol* (Carvedilol*) 6.25 Mg Tablet 6.25 MG GT EVERY 12 HOURS for htn, TAB Docusate Sodium* (Docusate Sodium*) 100 Mg Capsule 100 MG GT TWICE A DAY for constipation, CAP Folic Acid* (Folic Acid*) 1 Mg Tablet 0.8 MCG ORAL DAILY for SUPPLEMENT, TAB Gabapentin* (Gabapentin*) 100 Mg Capsule 300 MG GT HS for nerve pain, CAP Magnesium Hydroxide* (Milk Of Magnesia*) 400 Mg/5 Ml Oral.susp 30 ML GT DAILY PRN for Constipation, ML Vitamin B Cmplx/Vit C/Folic AC (Nephro-Jenny Tablet) 0.8 Mg Tablet 1 TAB GT DAILY for sup, #30 TAB 0 Refills Discharge Condition Upon Discharge: grave Discharge Vital Signs Last Vital Signs Date Time Temp Pulse Resp B/P (MAP) Pulse Ox O2 Delivery O2 Flow Rate FiO2 03/03/20 12:00 97.4 99 19 148/67 (94) 100 03/03/20 09:00 Simple Mask 3.0 03/01/20 09:10 45 Discharge Disposition Patient was discharged to [facility] Discharge Diagnoses: (1) Sepsis (2) Pneumonia (3) Pressure ulcer (4) Chronic kidney failure (5) Protein calorie malnutrition (6) Anemia (7) Dementia Discharge Instructions Discharge Instructions Services Upon Discharge: other - comfort care Activity: as tolerated Leonardo Fagan M.D. Mar 03, 2020 16:14
== END 2020-03-03 17:00 | DRG 871 ==
LOC: EDUNIT# 08:31 → EDBD 08:31 → EMR 08:49 → ICU 09:09 → EDBEDREQSVC 10:09 → EDBEDREQ 10:09 → 4E 03-01 15:45
PROC: 0BH17EZ Insertion of Endotracheal Airway into Trachea, Via Natural or Artificial Opening (ICD-10-PCS; principal; 2020-02-29)
PROC: 5A1935Z Respiratory Ventilation, Less than 24 Consecutive Hours (ICD-10-PCS; principal; 2020-02-29)
DX: A41.9 Sepsis, unspecified organism (principal); L89.214 Pressure ulcer of right hip, stage 4; L89.513 Pressure ulcer of right ankle, stage 3; J96.01 Acute respiratory failure with hypoxia; J18.9 Pneumonia, unspecified organism; N18.6 End stage renal disease; I12.0 Hypertensive chronic kidney disease with stage 5 chronic kidney disease or end stage renal disease; G93.40 Encephalopathy, unspecified; E46 Unspecified protein-calorie malnutrition; Z51.5 Encounter for palliative care; Z66 Do not resuscitate; Z99.2 Dependence on renal dialysis; F03.90 Unspecified dementia, unspecified severity, without behavioral disturbance, psychotic disturbance, mood disturbance, and anxiety; R13.10 Dysphagia, unspecified; M24.59 Contracture, other specified joint; Z68.25 Body mass index [BMI] 25.0-25.9, adult; L89.152 Pressure ulcer of sacral region, stage 2; L89.522 Pressure ulcer of left ankle, stage 2; D63.8 Anemia in other chronic diseases classified elsewhere
CPT/HCPCS: 31500; 36415; 71045; 80048; 80053; 80202; 82550; 82728; 82803; 82962; 83605; 83615; 83690; 83735; 83880; 84100; 84484; 85025; 85610; 85730; 86140; 86706; 87040; 87081; 87086; 87181; 93005; 93306; 94002; 94003; 94664; 96361; 96365; 96367; 96375; 99291; 99292; J2250; J7030; U0002